=== PATIENT | male | born 1945 | race African-American/Black ===

== ENCOUNTER 2016-05-11 18:58 | Inpatient (IN) | payer MEDICARE, MEDICAID ==
[~2016-05-11] VITALS: Ht 188 cm; Wt 123.4 kg
[~2016-05-11 18:58] MED LIST: /ATOR40TA PO; /INSU7030; /METO25TAB PO; /NEPHROTA PO; /NITR4TASL SL; /WARF5TA; ADV250INH INH; ALBU0.5N INH; ALDA25TA2; ALLO100T PO; ALLO300T2 PO; ALPH0.1S XX; AMLO10TA; APIDINJ SC; ASPI81TA83 PO; BISO10TA2; BISO10TA6 PO; CAPT12.5; CAPT12.5 PO; CATA0.1T; COUMADIN; DEMA20TA; DOCU10ELUD PO; FLEXERIL; FLUTISP; GLUC500T; INSULANT SC; INSULIN LANTUS; LANO0.1211; LOTE0.5S OD; MIRA255PW PO; NEUR100C; NORV5TAB; NOVOLOG SC; PRED1SUS OD; PROV90AE INH; SENO8.6T9 PO; TAMS0.4C PO; TORS100T12 PO; TRAM50TA2; TYLE325T5 PO; VICO5TAB PO; WARF2TAB44 PO; WARF4TAB28 PO; ZETI10TA21 PO; [UNRECOGNIZED DRUG - CODE] EXT
[2016-05-11 21:14] LABS: BASO # 0.1 K/mm3 (0.0-0.2); BASO % 0.6 % (0.0-1.0); EOS # 0.1 K/mm3 (0.0-0.50); EOS % 0.6 % (0.0-3.0); LARGE UNSTAINED CELL # 0.3 K/mm3 (0.0-0.4); LARGE UNSTAINED CELL % 1.9 % (0.0-4.0); LYMPH # 0.9 K/mm3 (1.5-4.5); LYMPH % 4.6 % (24.0-44.0); MEAN CORPUSCULAR HEMOGLOBIN 33.6 pg (27.0-33.0); MEAN CORPUSCULAR HGB CONC 32.1 g/dl (32.0-36.5); MEAN CORPUSCULAR VOLUME 104.7 fl (80.0-96.0); MONO # 0.9 K/mm3 (0.0-0.8); MONO % 6.6 % (0.0-5.0); NEUTROPHILS # 11.8 K/mm3 (1.8-7.7); NEUTROPHILS % 85.8 % (36.0-66.0); PLATELET COUNT, AUTOMATED 155 k/mm3 (150-450); RED CELL DISTRIBUTION WIDTH 13.9 % (11.5-14.5); WHITE BLOOD COUNT 13.8 K/mm3 (4.0-10.0)
[2016-05-11] MEDS ORDERED: MORPHINE 4 MG/ML 1ML SYRINGE As Ordered ONE (21:24)
[2016-05-11 21:39] LABS: CALCIUM LEVEL 8.3 MG/DL (8.8-10.2); POTASSIUM SERUM 4.8 MEQ/L (3.5-5.1)
[2016-05-11] MEDS ORDERED: HYDROmorphone HCL 1 MG/ML SYRINGE (J1170) As Ordered ONE (22:37)
[2016-05-11] MEDS ORDERED: cefTRIAXone SOD 1 GM VIAL (J0696) As Ordered ONE (23:26)
[2016-05-12] MEDS ORDERED: INSUH10VL SC (00:20)
[2016-05-12] MEDS ORDERED: VITA100066 PO (00:20)
[2016-05-12] MEDS ORDERED: ALBU17IN INH (00:20)
[2016-05-12] MEDS ORDERED: FLOM5CAP PO (00:20)
[2016-05-12] MEDS ORDERED: INSUDET SC (00:20)
[2016-05-12] MEDS ORDERED: GABA-279 PO (00:20)
[2016-05-12] MEDS ORDERED: CALC1CAP PO (00:20)
[2016-05-12] MEDS ORDERED: VITA500T3 PO (00:20)
[2016-05-12] MEDS ORDERED: ASPI81CH PO (00:20)
[2016-05-12] MEDS ORDERED: METO50TA2 PO (00:20)
[2016-05-12] MEDS ORDERED: WARF-60 PO (00:20)
[2016-05-12] MEDS ORDERED: NITR4TASL SL (00:20)
[2016-05-12] MEDS ORDERED: FEBU40TA PO (00:20)
[2016-05-12] MEDS ORDERED: RENV2TAB PO (00:20)
[2016-05-12] MEDS ORDERED: WARF4TAB52 PO (00:20)
[2016-05-12] MEDS ORDERED: NEPHTAB PO (00:20)
[2016-05-12] MEDS ORDERED: ADV250INH INH (00:20)
[2016-05-12] MEDS ORDERED: ATOR40TA PO (00:20)
[2016-05-12] MEDS ORDERED: DEXTROSE 50% 50 ML SYRINGE IV PRN (00:30)
[2016-05-12] MEDS ORDERED: GLUCOSE 4 GM CHEW TABLET PO PRN (00:30)
[2016-05-12] MEDS ORDERED: GLUCAGON FOR INJ 1 MG VIAL (J1610) SC PRN (00:30)
[2016-05-12] MEDS ORDERED: IPRATROPIUM 0.5MG/ALBUTEROL 2.5MG INH SOL UD 3ML (DUONEB)(J7620) NEB PRN (00:45)
[2016-05-12 00:57] LABS: INR 1.7
--- NOTE | 2016-05-12 03:24 | EDDOCDS ---
Physician Documentation [facility] Name: Irwin Lobo Age: 70 yrs Sex: Male : 1945 Arrival Date: 05/11/2016 Time: 18:58 Bed 4 Private MD: Jayy Alvarez P Disposition: 05/11/16 23:26 Hospitalization ordered by Emily Dorantes for Inpatient Admission. Preliminary diagnosis are Chest pain, unspecified - Pleuritic, Pain in left foot, Difficulty in walking, not elsewhere classified. - Bed requested for PCU. - Status is Inpatient Admission. ko2 - Condition is Stable. - Problem is an acute exacerbation. - Symptoms have improved. Historical: - Allergies: no known allergies; - Home Meds: 1. Advair Diskus 250-50 mcg/dose Inhl dsdv 1 puff 2 times per day 2. albuterol sulfate 90 mcg/actuation Inhl HFAA 2 puffs every 4-6 hours 3. aspirin 81 mg Oral chew 1 tab once daily 4. atorvastatin 40 mg oral tab 1 tab once daily 5. Coumadin 7 mg Oral tab 1 tab once daily 6. Levemir 100 unit/mL subcutaneous soln 16 unit nightly 7. Humalog 100 unit/mL Sub-Q crtg 8. metoprolol tartrate 50 mg Oral tab 1 tab 2 times per day 9. calcium acetate 667 mg oral cap 2 caps 3 times per day 10. Sensipar 30 mg oral tab 1 tab once daily 11. Renvela 800 mg oral tab 2 tabs 3 times per day 12. Vitamin B-12 1,000 mcg Oral tab 1,000 mcg daily 13. gabapentin 100 mg Oral cap 1 caps daily 14. tamsulosin 0.4 mg oral cp24 1 cap once daily 15. colchicine 0.6 mg Oral tab 1 tab as needed 16. Uloric 40 mg oral tab 1 tab once daily 17. Nitrostat 0.4 mg SL subl 1 tab as needed 18. Nephro-Martin 0.8 mg oral tab daily 19. Vitamin D Oral 09235 unit daily - PMHx: Asthma; BPH; Chronic Renal Failure with dialysis; Diabetes - IDDM: uncontrolled; Gout; Herpes of Right Eye; Hypercholesterolemia; Hypertension; - PSHx: AV fistula right arm; Hernia repair; Pacemaker Insertion; - Social history: Smoking status: Patient states former smoker of tobacco. No barriers to communication noted, The patient speaks fluent Syriac, Speaks appropriately for age, blind in right eye. - Family history: Not pertinent. - : The pt / caregiver states he / she is on anticoagulants: coumadin. Home medication list is obtained from pill bottles. - Exposure Risk Screening:: None identified. Vital Signs: 05/11 19:10 BP 125 / 70; Pulse 100; Resp 32; Pulse Ox 93% on R/A; Weight 122.92 kg / 270.99 lbs; ls3 19:13 Temp 100.6(O); ls3 19:36 BP 115 / 68 (auto/); ld5 19:40 Pulse 100 MON; Pulse Ox 96% ; ld5 19:50 Resp 26; ld5 21:12 BP 133 / 73 (auto/); ld5 21:12 Pulse 94 MON; Resp 22; Pulse Ox 97% ; ld5 21:37 BP 128 / 80 (auto/); ld5 21:37 Pulse 94 MON; Temp 100.6(O); Pulse Ox 97% ; ld5 22:07 BP 132 / 75 (auto/); ld5 22:08 Pulse 96 MON; Pulse Ox 98% ; ld5 22:11 BP 132 / 81 (auto/); ld5 22:13 Pulse 96 MON; Pulse Ox 99% ; ld5 22:42 Pulse 96 MON; Pulse Ox 98% ; ld5 22:57 BP 138 / 80 (auto/); Pulse 98; Resp 20; Temp 100.2(O); Pulse Ox 97% on R/A; Pain 6/10; ld5 23:39 Pulse 98 MON; Pulse Ox 97% ; ko2 23:41 BP 140 / 79 (auto/); ko2 05/12 00:10 Pulse 100 MON; ko2 00:11 BP 129 / 78 (auto/); ko2 00:40 Pulse 102 MON; ko2 00:41 BP 129 / 77 (auto/); ko2 01:11 BP 137 / 86 (auto/); ko2 01:11 Pulse 98 MON; ko2 01:42 BP 129 / 76; Pulse 92; Resp 18; Temp 98.9; Pulse Ox 98% ; Pain 0/10; ko2 MDM: 05/11 19:01 ECG WITH READING ER PHYS+CARDIAG ordered. EDMS 19:28 Ondansetron 4 mg IVP once ordered. mm11 19:28 Data Mining Analyst/Pulse Ox/q 30 min VS ordered. mm11 19:28 IV Saline Lock ordered. mm11 19:28 Rhythm Strip to chart ordered. mm11 19:28 Undress patient appropriately for examination ordered. mm11 19:28 morphine 4 mg IVP every 30 minutes; Document pain score/vitals after each dose (Hold if mm11 SBP < 90mmHg) x2 ordered. 19:28 -Blood Culture (Adults Only), peripheral from different site, or from device/port/PICC mm11 etc. if present ordered. 19:29 Basic Metabolic Profile Ordered. EDMS 19:29 CBC with Diff Ordered. EDMS 19:29 Cardiac Injury Profile Ordered. EDMS 19:29 Troponin Ordered. EDMS 19:29 -Blood Culture Ordered. EDMS 19:29 Chest, 2 View (pa\E\lat) Ordered. EDMS 19:30 Foot, Complete Ordered. EDMS 19:57 Financial registration complete. ks16 19:57 [facility] Payment Agreement was scanned into [employer] and attached to record. ks16 19:58 -Blood Culture (Adults Only), peripheral from different site, or from device/port/PICC ml3 etc. if present complete. 20:00 BLOOD CULTURES Ordered. EDMS 21:30 morphine 4 mg IM once ordered. ld5 21:40 CBC with Diff Reviewed. mm11 22:15 Basic Metabolic Profile Reviewed. mm11 22:15 Troponin Reviewed. mm11 22:15 Cardiac Injury Profile Reviewed. mm11 22:33 Dilaudid - HYDROmorphone 1 mg IM once ordered. mm11 22:52 Dilaudid - HYDROmorphone 1 mg IVP once ordered. mm11 23:13 BED REQUEST+ADM ordered. EDMS 23:14 cefTRIAXone 1 grams IVPB once over 30 mins; dilute in 50mL of NS or D5W ordered. mm11 05/12 00:30 Admission / Observation Status ordered. EDMS 00:31 CONSISTENT CARBOHYDRATES ordered. EDMS 00:31 CARDIAC INJURY PROFILE Ordered. EDMS 00:31 CARDIAC INJURY PROFILE Ordered. EDMS 00:31 CARDIAC INJURY PROFILE Ordered. EDMS 00:31 PROTHROMBIN TIME PROFILE\E\INR Ordered. EDMS 00:34 URIC ACID Ordered. EDMS 03:16 SPUTUM CULTURE AND GRAM STAIN Ordered. EDMS 03:17 ELECTROCARDIOGRAM ADULT ordered. EDMS Administered Medications: 05/11 21:30 Drug: morphine 4 mg [morphine 4 mg/mL intravenous cartridge (1 mL)] Route: IM; Site: ld5 left deltoid; 22:30 Follow up: Response: Confirmed pt not driving.; No significant change.; see vital recordld5 22:51 Not Given (Other Intervention Used): Dilaudid - HYDROmorphone 1 mg IM once mm11 22:54 Drug: Dilaudid - HYDROmorphone 1 mg [hydromorphone 1 mg/mL injection syringe (1 mL)] ld5 Route: IVP; Site: right foot; 23:35 Drug: cefTRIAXone 1 grams [ceftriaxone 1 gram solution for injection] Route: IVPB; ko2 Infused Over: 30 mins; Site: right foot; 05/12 01:51 Follow up: IV Status: Completed infusion; IV Intake: 50ml ko2 Signatures: Dispatcher [employer] EDMS Laura Osoriozabeth, Duct Maker Unit ml3 Norman Sainz DO DO mm11 Kusum Sharif,JERRICA RN ld5 Nicky Valdez RN RN ko2 Kerri Figueroa, Reg Reg ks16 The chart was reviewed and I authenticate all verbal orders and agree with the evaluation and treatment provided.Attachments: 05/11 19:57 [facility] Payment Agreement ks16 MTDD
--- NOTE | 2016-05-12 03:24 | EDDOCDS ---
Nurse's Notes [facility] Name: Irwin Lobo Age: 70 yrs Sex: Male : 1945 Arrival Date: 05/11/2016 Time: 18:58 Bed 4 Private MD: Jayy Alvarez P Diagnosis: Chest pain, unspecified-Pleuritic;Pain in left foot;Difficulty in walking, not elsewhere classified Presentation: 05/11 19:03 Presenting complaint: Patient states: "My feet hurt and I have a cough and some chest ld5 pain. I think I have pneumonia." I nitro given en route with some relief. 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 Suicide/Homicide risk assessment- the patient denies having any suicidal and/or homicidal ideations and does not present with any other emotional, behavioral or mental health complaints. Status: Patient is not a service writer or dependent. Transition of care: patient was not received from another setting of care. Care prior to arrival: Medications administered prior to arrival: NTG, x1, ASA 324 mg. 19:03 Method Of Arrival: Ambulance ld5 19:19 Adult Sepsis Screening: The patient does not have new or worsening altered mentation. ld5 Patient has a respiratory rate of greater than or equal to 22 (1 point). Systolic blood pressure is greater than 100. Patient has a qSOFA score of 1- Negative Sepsis Screen. 19:19 Acuity: RAVIN Level 2 ld5 Triage Assessment: 19:15 General: Appears in no apparent distress. Pain: Location: left breast, right foot and ld5 left foot Pain currently is 7 out of 10 on a pain scale. Aggravated by weight bearing, cough. Neurological: Level of Consciousness is awake, alert. Cardiovascular: Chest pain is described as mild, radiates Does not radiate. episodes are intermittent began "sometime today". Respiratory: Airway is patent Breath sounds are diminished in left posterior lower lobe and right posterior lower lobe Breath sounds with wheezes in left posterior lower lobe. GI: Abdomen is obese, Bowel sounds present X 4 quads. Historical: - Allergies: no known allergies; - Home Meds: 1. Advair Diskus 250-50 mcg/dose Inhl dsdv 1 puff 2 times per day 2. albuterol sulfate 90 mcg/actuation Inhl HFAA 2 puffs every 4-6 hours 3. aspirin 81 mg Oral chew 1 tab once daily 4. atorvastatin 40 mg oral tab 1 tab once daily 5. Coumadin 7 mg Oral tab 1 tab once daily 6. Levemir 100 unit/mL subcutaneous soln 16 unit nightly 7. Humalog 100 unit/mL Sub-Q crtg 8. metoprolol tartrate 50 mg Oral tab 1 tab 2 times per day 9. calcium acetate 667 mg oral cap 2 caps 3 times per day 10. Sensipar 30 mg oral tab 1 tab once daily 11. Renvela 800 mg oral tab 2 tabs 3 times per day 12. Vitamin B-12 1,000 mcg Oral tab 1,000 mcg daily 13. gabapentin 100 mg Oral cap 1 caps daily 14. tamsulosin 0.4 mg oral cp24 1 cap once daily 15. colchicine 0.6 mg Oral tab 1 tab as needed 16. Uloric 40 mg oral tab 1 tab once daily 17. Nitrostat 0.4 mg SL subl 1 tab as needed 18. Nephro-Martin 0.8 mg oral tab daily 19. Vitamin D Oral 35689 unit daily - PMHx: Asthma; BPH; Chronic Renal Failure with dialysis; Diabetes - IDDM: uncontrolled; Gout; Herpes of Right Eye; Hypercholesterolemia; Hypertension; - PSHx: AV fistula right arm; Hernia repair; Pacemaker Insertion; - Social history: Smoking status: Patient states former smoker of tobacco. No barriers to communication noted, The patient speaks fluent Guamanian, Speaks appropriately for age, blind in right eye. - Family history: Not pertinent. - : The pt / caregiver states he / she is on anticoagulants: coumadin. Home medication list is obtained from pill bottles. - Exposure Risk Screening:: None identified. Screenin/26 01:51 Screening information is obtained from the patient. Fall risk: At risk due to prior ko2 history of falls. Assistance ADL's: requires no assistance with activities of daily living. Abuse/DV Screen: The patient / caregiver reports he/she is: not in a situation that causes fear, pain or injury. Nutritional screening: No deficits noted. Advance Directives: Currently, there is no health care proxy. home support is adequate. Assessment: 05/11 19:49 General: Pt becoming upset over difficulty with obtaining IV access. Support provided. ld5 20:00 General: Pt goes to dialysis Mon, Wed and Thu. ld5 20:40 General: Spoke with Dr. Saizn regarding difficulty obtaining IV access. Will obtain ld5 blood for the time being per MD. Will continue to monitor. 20:45 General: Lab in to draw blood. ld5 20:59 General: Pt resting quietly in bed. No apparent distress. Will continue to monitor. ld5 21:30 General: Pt laying in bed with eyes closed. Lights dimmed for comfort. SO remains at ld5 bedside. Will continue to monitor. 22:43 General: Pt requesting Dilaudid be held while IV access is attempted again. ld5 23:00 General: IV access obtained to right foot. Jose wrap applied to protect site. Pt ld5 medicated per orders for 11/24 pain. Pt denies any needs. Will continue to monitor. 05/12 00:00 General: Appears in no apparent distress, comfortable, Behavior is appropriate for age, ko2 cooperative. Neurological: Level of Consciousness is awake, alert. Cardiovascular: Rhythm is. Respiratory: Airway is patent Respiratory effort is even, unlabored. Derm: Skin is normal. 01:00 General: Appears in no apparent distress, comfortable, Behavior is appropriate for age, ko2 cooperative. Neurological: Level of Consciousness is awake, alert. Respiratory: Airway is patent Respiratory effort is even, unlabored. Derm: Skin is black. 01:50 General: Appears in no apparent distress, comfortable, Behavior is appropriate for age, ko2 cooperative. Neurological: Level of Consciousness is awake, alert. Respiratory: Airway is patent Respiratory effort is even, unlabored. Derm: Skin is black. Vital Signs: 05/11 19:10 BP 125 / 70; Pulse 100; Resp 32; Pulse Ox 93% on R/A; Weight 122.92 kg; ls3 19:13 Temp 100.6(O); ls3 19:36 BP 115 / 68 (auto/); ld5 19:40 Pulse 100 MON; Pulse Ox 96% ; ld5 19:50 Resp 26; ld5 21:12 BP 133 / 73 (auto/); ld5 21:12 Pulse 94 MON; Resp 22; Pulse Ox 97% ; ld5 21:37 BP 128 / 80 (auto/); ld5 21:37 Pulse 94 MON; Temp 100.6(O); Pulse Ox 97% ; ld5 22:07 BP 132 / 75 (auto/); ld5 22:08 Pulse 96 MON; Pulse Ox 98% ; ld5 22:11 BP 132 / 81 (auto/); ld5 22:13 Pulse 96 MON; Pulse Ox 99% ; ld5 22:42 Pulse 96 MON; Pulse Ox 98% ; ld5 22:57 BP 138 / 80 (auto/); Pulse 98; Resp 20; Temp 100.2(O); Pulse Ox 97% on R/A; Pain 6/10; ld5 23:39 Pulse 98 MON; Pulse Ox 97% ; ko2 23:41 BP 140 / 79 (auto/); ko2 05/12 00:10 Pulse 100 MON; ko2 00:11 BP 129 / 78 (auto/); ko2 00:40 Pulse 102 MON; ko2 00:41 BP 129 / 77 (auto/); ko2 01:11 BP 137 / 86 (auto/); ko2 01:11 Pulse 98 MON; ko2 01:42 BP 129 / 76; Pulse 92; Resp 18; Temp 98.9; Pulse Ox 98% ; Pain 0/10; ko2 Vitals: 01:41 Log In Time N/A - ambulance arrival. ko2 ED Course: 05/11 18:59 Patient visited by Jefry Osorio, Supervisor Modern Languages. ml3 18:59 Patient moved to Waiting ml3 19:00 Jayy Alvarez is Private Physician. ml3 19:00 Simona Zee,RN is Primary Nurse. ml3 19:00 Patient moved to 4 ml3 19:09 Norman Sainz DO is Attending Physician. mm11 19:09 Patient visited by Norman Sainz DO. mm11 19:12 Patient visited by Christina Keene PCA. ls3 19:19 Patient visited by Kusum Sharif,JERRICA. ld5 19:19 Triage Initiated ld5 19:27 Patient visited by Norman Sainz DO. mm11 19:41 -Blood Culture Sent. ld5 19:51 The patient / caregiver is instructed regarding the plan of care and ED course. ld5 Accompanied by Significant Other, Patient has correct armband on for positive identification. Placed in gown. Bed in low position. Call light in reach. Side rails up X2. telemetry monitor on. Pulse ox on. NIBP on. 19:57 [facility] Payment Agreement was scanned into [employer] and attached to record. ks16 20:07 Patient visited by Kusum Sharif RN. ld5 21:00 Patient visited by Kusum Sharif RN. ld5 21:40 Patient visited by Norman Sainz DO. mm11 22:20 Patient visited by Norman Sainz DO. mm11 22:44 Patient visited by Kusum Sharif RN. ld5 23:01 Patient visited by Kusum Sharif RN. ld5 23:02 Inserted saline lock: 22 gauge in right foot by Mitch Khan RN. ld5 23:26 Emily Dorantes is Hospitalizing Provider. mm11 05/12 01:53 No procedures done that require assistance. ko2 Administered Medications: 05/11 21:30 Drug: morphine 4 mg [morphine 4 mg/mL intravenous cartridge (1 mL)] Route: IM; Site: ld5 left deltoid; 22:30 Follow up: Response: Confirmed pt not driving.; No significant change.; see vital recordld5 22:51 Not Given (Other Intervention Used): Dilaudid - HYDROmorphone 1 mg IM once mm11 22:54 Drug: Dilaudid - HYDROmorphone 1 mg [hydromorphone 1 mg/mL injection syringe (1 mL)] ld5 Route: IVP; Site: right foot; 23:35 Drug: cefTRIAXone 1 grams [ceftriaxone 1 gram solution for injection] Route: IVPB; ko2 Infused Over: 30 mins; Site: right foot; 05/12 01:51 Follow up: IV Status: Completed infusion; IV Intake: 50ml ko2 Intake: 01:51 IV: 50.00ml; Total: 50.00ml. ko2 Order Results: Lab Order: Basic Metabolic Profile; SPEC'M 05/11/16 20:52 Test: GLUCOSE, FASTING; Value: 139; Range: 80-110; Abnormal: Above high normal; Units: MG/DL; Status: F Test: BLOOD UREA NITROGEN; Value: 75; Range: 7-18; Abnormal: Above high normal; Units: MG/DL; Status: F Test: CREATININE FOR GFR; Value: 11.00; Range: 0.70-1.30; Abnormal: Above high normal; Units: MG/DL; Status: F Test: GLOMERULAR FILTRATION RATE; Value: 6.0; Range: >49; Abnormal: Below low normal; Status: F Test: SODIUM LEVEL; Value: 136; Range: 136-145; Units: MEQ/L; Status: F Test: POTASSIUM SERUM; Value: 4.8; Range: 3.5-5.1; Units: MEQ/L; Status: F Test: CHLORIDE LEVEL; Value: 100; Range: 98-107; Units: MEQ/L; Status: F Test: CARBON DIOXIDE LEVEL; Value: 25; Range: 21-32; Units: MEQ/L; Status: F Test: ANION GAP; Value: 11; Range: 8-16; Units: MEQ/L; Status: F Test: CALCIUM LEVEL; Value: 8.3; Range: 8.8-10.2; Abnormal: Below low normal; Units: MG/DL; Status: F Test Note: ; Units are mL/min/1.73 m2 Chronic Kidney Disease Staging per NKF: Stage I & II GFR >=60 Normal to Mildly Decreased Stage III GFR 30-59 Moderately Decreased Stage IV GFR 15-29 Severely Decreased Stage V GFR <15 Very Little GFR Left ESRD GFR <15 on BLANKET FOLDER Lab Order: CBC with Diff; SPEC'M 05/11/16 20:52 Test: WHITE BLOOD COUNT; Value: 13.8; Range: 4.0-10.0; Abnormal: Above high normal; Units: K/mm3; Status: F Test: RED BLOOD COUNT; Value: 3.12; Range: 4.30-6.10; Abnormal: Below low normal; Units: M/mm3; Status: F Test: HEMOGLOBIN; Value: 10.5; Range: 14.0-18.0; Abnormal: Below low normal; Units: g/dl; Status: F Test: HEMATOCRIT; Value: 32.6; Range: 42.0-52.0; Abnormal: Below low normal; Units: %; Status: F Test: MEAN CORPUSCULAR VOLUME; Value: 104.7; Range: 80.0-96.0; Abnormal: Above high normal; Units: fl; Status: F Test: MEAN CORPUSCULAR HEMOGLOBIN; Value: 33.6; Range: 27.0-33.0; Abnormal: Above high normal; Units: pg; Status: F Test: MEAN CORPUSCULAR HGB CONC; Value: 32.1; Range: 32.0-36.5; Units: g/dl; Status: F Test: RED CELL DISTRIBUTION WIDTH; Value: 13.9; Range: 11.5-14.5; Units: %; Status: F Test: PLATELET COUNT, AUTOMATED; Value: 155; Range: 150-450; Units: k/mm3; Status: F Test: NEUTROPHILS %; Value: 85.8; Range: 36.0-66.0; Abnormal: Above high normal; Units: %; Status: F Test: LYMPH %; Value: 4.6; Range: 24.0-44.0; Abnormal: Below low normal; Units: %; Status: F Test: MONO %; Value: 6.6; Range: 0.0-5.0; Abnormal: Above high normal; Units: %; Status: F Test: EOS %; Value: 0.6; Range: 0.0-3.0; Units: %; Status: F Test: BASO %; Value: 0.6; Range: 0.0-1.0; Units: %; Status: F Test: LARGE UNSTAINED CELL %; Value: 1.9; Range: 0.0-4.0; Units: %; Status: F Test: NEUTROPHILS #; Value: 11.8; Range: 1.8-7.7; Abnormal: Above high normal; Units: K/mm3; Status: F Test: LYMPH #; Value: 0.9; Range: 1.5-4.5; Abnormal: Below low normal; Units: K/mm3; Status: F Test: MONO #; Value: 0.9; Range: 0.0-0.8; Abnormal: Above high normal; Units: K/mm3; Status: F Test: EOS #; Value: 0.1; Range: 0.0-0.50; Units: K/mm3; Status: F Test: BASO #; Value: 0.1; Range: 0.0-0.2; Units: K/mm3; Status: F Test: LARGE UNSTAINED CELL #; Value: 0.3; Range: 0.0-0.4; Units: K/mm3; Status: F Lab Order: Cardiac Injury Profile; SPEC'M 05/11/16 20:52 Test: CPK CREATINE PHOSPHOKINASE; Value: 83; Range: 39-308; Units: U/L; Status: F Test: CK-MB VALUE MASS; Value: 1.0; Range: 0.0-3.6; Units: NG/ML; Status: F Test: MB/CK RELATIVE INDEX; Value: 1.20; Range: < OR =4; Status: F Test Note: ; DIAGNOSIS CRITERIA MMB ng/ml Relative Index (RI) NON-AMI < or = 5 N/A VASQUES ZONE > 5 < or = 4 AMI > 5 > 4 Lab Order: Troponin; [facility] 05/11/16 20:52 Test: TROPONIN I; Value: 0.12; Range: < 0.10; Abnormal: Above high normal; Units: NG/ML; Status: F Test Note: ; Troponin I Reference Interval for [employer]ius LOCI: 99th Percentile= 0.00-0.045 ng/ml Risk Stratification: <= 0.10 ng/ml Decreased Risk for Adverse Clinical Events. 0.10-1.50 ng/ml Increased Risk for Adverse Clinical Events. Evaluation of additional criterion and/or repeat testing in 2-6 hours is suggested to rule out myocardial damage. >= 1.50 ng/ml Indicative of Myocardial Injury. Lab Order: PROTHROMBIN TIME PROFILE\\E\\INR; [facility] 05/11/16 20:52 Test: PROTHROMBIN TIME; Value: 20.1; Range: 12.3-14.5; Abnormal: Above high normal; Units: SECONDS; Status: F Test: INR; Value: 1.70; Status: F Test Note: ; THERAPUTIC HUMAN INR VALUES INDICATIONS NORMAL RANGES PROPHYLAXIS/TREATMENT OF: VENOUS THROMBOSIS 2.0-3.0 PULMONARY EMBOLISM 2.0-3.0 PREVENTION OF SYSTEMIC EMBOLISM FROM: TISSUE HEART VALVES 2.0-3.0 ACUTE MYOCARDIAL INFARCTION 2.0-3.0 VALVULAR HEART DISEASE 2.0-3.0 ATRIAL FIBRILLATION 2.0-3.0 MECHANICAL VALVES(HIGH RISK) 2.5-3.5 RECURRENT MYOCARDIAL INFARCTION 2.5-3.5 Lab Order: URIC ACID; [facility]' 05/11/16 20:52 Test: URIC ACID; Value: 4.0; Range: 3.5-7.2; Units: MG/DL; Status: F Outcome: 05/11 23:26 Decision to Hospitalize by Provider. mm11 05/12 01:52 Discharge Assessment: Patient awake, alert and oriented x 3. No cognitive and/or ko2 functional deficits noted. Patient verbalized understanding of disposition instructions. patient administered narcotics -. The following High Risk Discharge criteria are identified: None. Admitted to PCU accompanied by nurse, accompanied by tech, via stretcher, on monitor, with chart. Condition: stable. Property :Personal belongings accompany Pt. 01:53 No special radiology studies were completed. ko2 01:53 Admission hand-off: Report Faxed Fax receipt verified by Daphney Whitney RN PCU. ko2 03:23 Patient left the ED. ko2 Signatures: Jefry Osorio, Supervisor Modern Languages Unit ml3 Norman Sainz, DO mm11 Kusum Sharif,RN RN ld5 Nicky Valdez RN RN ko2 Christina Keene, NURSE RECRUITER NURSE RECRUITER ls3 Kerri Figueroa, Reg Reg ks16 Corrections: (The following items were deleted from the chart) 05/11 21:16 21:12 Pulse 94bpm; Monitor; Pulse Ox 97%; ld5 ld5 MTDD
[2016-05-12 04:00] VITALS: BP 139/79
[2016-05-12] MEDS: MORPHINE 2 MG/ML 1ML SYRINGE IV PRN ×3 (06:00→20:46)
[2016-05-12 06:07] LABS: MEAN CORPUSCULAR HGB CONC 32.5 g/dl (32.0-36.5); MEAN CORPUSCULAR VOLUME 104.6 fl (80.0-96.0); RED CELL DISTRIBUTION WIDTH 13.3 % (11.5-14.5); WHITE BLOOD COUNT 15.1 K/mm3 (4.0-10.0)
[2016-05-12 06:58] LABS: ALBUMIN 3.2 GM/DL (3.2-5.2); ALBUMIN/GLOBULIN RATIO 0.86 (1.00-1.93); BILIRUBIN,TOTAL 0.9 MG/DL (0.2-1.0); CREATININE FOR GFR 12.2 MG/DL (0.70-1.30); GLOMERULAR FILTRATION RATE 5.3 (>49); TOTAL PROTEIN 6.9 GM/DL (6.4-8.2)
[2016-05-12 07:00] LABS: POTASSIUM SERUM 5.3 MEQ/L (3.5-5.1)
[2016-05-12] MEDS: ADVAIR DISKUS 250/50 INH PWD INH SCH ×2 (07:09→19:32)
[2016-05-12] MEDS: IPRATROPIUM 0.5MG/ALBUTEROL 2.5MG INH SOL UD 3ML (DUONEB)(J7620) NEB SCH ×3 (07:09→19:33)
[2016-05-12] MEDS: CALCIUM ACETATE 667 MG GELCAP PO SCH ×3 (07:35→17:54)
[2016-05-12] MEDS: CYANOCOBALAMIN 500 MCG TAB PO SCH (07:35)
[2016-05-12] MEDS: (RENVELA) SEVELAMER **CARBONate** 800 MG TAB PO SCH ×3 (07:35→17:54)
[2016-05-12] MEDS: HumaLOG INSULIN (NovoLOG) PER UNIT SC SCH ×4 (07:35→20:31)
[2016-05-12] MEDS: ATORVASTATIN 20 MG TAB PO SCH (07:35)
[2016-05-12] MEDS: NEPHRO-VIT TAB (NEPHROCAPS) PO SCH (07:35)
[2016-05-12] MEDS: FEBUXOSTAT 40 MG TABLET (ULORIC) PO SCH (07:35)
[2016-05-12] MEDS: METOPROLOL TART 50 MG TAB PO SCH ×2 (07:36→20:43)
[2016-05-12] MEDS: ASPIRIN 81 MG CHEW TABLET PO SCH (07:36)
[2016-05-12] MEDS: TAMSULOSIN 0.4 MG CAP PO SCH (07:36)
[2016-05-12 08:00] VITALS: BP 133/75
[2016-05-12 08:39] LABS: INR 1.69
[2016-05-12] MEDS ORDERED: GABAPENTIN 100 MG CAP PO SCH ×2 (09:00→21:00)
--- NOTE | 2016-05-12 09:03 | REP ---
Clinical: Chest pain. Technique: AP and lateral views. Comparison: 08/17/2014. Findings: Examination is limited by technique. Cardiomegaly is again appreciated and relatively stable. Pulmonary vascular congestion and interstitial edema cannot definitively be excluded. No focal consolidation, effusion, or pneumothorax. Skeletal structures are intact. Impression: Cardiomegaly and findings to suggest pulmonary venous congestion. Clinical correlation recommended. Signed by Pito Allen MD 05/12/2016 08:54 A
--- NOTE | 2016-05-12 09:05 | REP ---
Clinical: Deformity and swelling . Technique: AP, lateral, bilateral oblique views left foot. Findings: Age-related degenerative changes and vascular calcifications are identified. The osseous structures and joint spaces are intact and without obvious acute fracture or dislocation. Surrounding soft tissues are unremarkable. No subcutaneous emphysema or radiodense foreign body. Lateral view demonstrates small calcaneal heal spur. Impression: Age-related degenerative changes and vascular calcifications. No acute fracture or dislocation. Signed by Pito Allen MD 05/12/2016 08:56 A
--- NOTE | 2016-05-12 09:31 | ECGEPIP ---
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
--- NOTE | 2016-05-12 11:25 | HPE ---
DATE OF ADMISSION: 05/12/2016 PRIMARY CARE PROVIDER: Dr. Alvarez REASON FOR ADMISSION: Pleuritic chest pain and left foot pain. 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 He stated that on Thursday a door fell on his left foot, for the past several days he has been having some swelling and pain. Today he was unable to ambulate on his leg, unable to put any weight on it. He has also been complaining of chest pain and some shortness of breath. Chest pain is described as pleuritic in nature, worse with deep breathing and movement. The patient received one dose of nitroglycerin and aspirin on route to the hospital. He stated it did not really help his pain. Pain has been constant for the past 3 days, worse with coughing and movement. In the emergency room the patient underwent a foot x-ray, it showed no obvious fractures or dislocations. Hospitalist was called for the admission. REVIEW OF SYSTEMS: 12-point review of systems was obtained all of which was negative except for those mentioned above. PAST MEDICAL HISTORY: Significant for asthma, BPH, renal failure on dialysis, insulin-dependent diabetes, gout, herpes of the right eye, hypertension, hyperlipidemia. PAST SURGICAL HISTORY: Arteriovenous (AV) fistula of the right arm, hernia repair, pacemaker. SOCIAL HISTORY: The patient smoked but quit 40 years ago. He lives with his significant other. Denies any alcohol use. ALLERGIES: No known drug allergies. HOME MEDICATIONS: Include: - albuterol sulfate as needed for shortness of breath - aspirin 81 mg by mouth daily - atorvastatin 40 mg by mouth daily - calcium acetate with meals - vitamin D - vitamin B12 by mouth daily - Uloric 40 mg by mouth daily - gabapentin 100 mg by mouth daily - NovoLog sliding scale with meals - Levemir 16 units at bedtime - metoprolol tartrate 50 mg by mouth twice a day - nitroglycerin as needed for pain - Advair Diskus one puff inhaled twice a day - Renvela 1600 mg by mouth with meals - Flomax 0.4 mg by mouth daily - vitamin B complex one tablet by mouth daily - Coumadin 7 mg by mouth daily PHYSICAL EXAMINATION: VITAL SIGNS: On admission, blood pressure was 125/70, pulse 100, respiratory rate 32, temperature 100.6, pulse oximetry 93% on room air. HEENT: Left pupil round and reactive to light. Right pupil hazy, patient has right eye blindness. CARDIAC: Irregular rate and rhythm. LUNGS: Diminished breath sounds bilaterally. ABDOMEN: Soft, nontender, nondistended. EXTREMITIES: Trace edema bilaterally. LABORATORY FINDINGS: Glucose 139, BUN 75, creatinine 11, sodium 136, potassium 4.8, chloride 100, bicarbonate 25, WBC 13.8, hemoglobin 10.5, hematocrit 32.6, platelet count 155, troponin 0.12, INR 1.7, uric acid 4. The official read on foot x-ray is still pending but showed no acute fractures or dislocations. ASSESSMENT/PLAN: 1. Shortness of breath, likely secondary to asthma versus upper respiratory tract infection. The patient had low grade temperature on admission 100.6. He received one dose of Rocephin in the emergency room. We will continue Rocephin. Obtain sputum culture. Continue oxygen to keep saturations above 90%. 2. Foot pain, unknown etiology at this time. Preliminary re-done foot x-ray showed no acute fractures or dislocation. The patient recently dropped a door on his left foot. There appears to be some mild swelling over the foot. Uric acid was negative. The patient has history of gout but takes Uloric for it daily. We will order physical therapy. 3. Chest pain described as pleuritic in nature, likely secondary to cough. First set of troponin mildly elevated but may be secondary to increase in creatinine level. We will repeat troponins in 6 hours. Will repeat EKG in the morning. 4. Diabetes. Continue Levemir and insulin sliding scale with meals and at bedtime. 5. Hypertension. Continue metoprolol 50 mg twice a day. 6. Atrial fibrillation. Rate is controlled. Continue Coumadin 7 mg by mouth daily, metoprolol 50 mg by mouth twice a day. 7. BPH. Continue Flomax. 8. History of gout. Continue Uloric. 9. End-stage renal disease on dialysis. We will consult nephrology in the morning. 10. Deep venous thrombosis (DVT) prophylaxis. Patient is on Coumadin. We will resume.
[2016-05-12] MEDS ORDERED: ISOVUE-370 76% 100ML VIAL (Q9967) As Ordered ONE (11:27)
[2016-05-12] MEDS ORDERED: LIDOCAINE 1% SDV 5 ML VIAL SQ ONE (11:45)
[2016-05-12] MEDS ORDERED: HEPARIN 1,000 UNITS/ML 10ML VIAL (FOR RADIOLOGY& DIALYSIS ONLY) IV ONE (11:45)
[2016-05-12] MEDS ORDERED: PIPERACILLIN/TAZOBACTAM SOD 2.25 GM in D5W MINI-BAG PLUS 50 ML IV SCH (12:00)
[2016-05-12] MEDS ORDERED: LevoFLOXacin 750 MG in APPROPRIATE DILUENT 1 EA IV SCH (13:00)
[2016-05-12 14:17] VITALS: BP 124/72
--- NOTE | 2016-05-12 14:35 | IPNPDOC ---
Text Note Date of Service The patient was seen on 05/12/16 at 14:15. 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 He also had complaints of left foot pain. He stated a microwave door fell on his foot. In the ER he had a EKG taken which did not reveal any significant changes. Troponin first set was mildly elevated. Patient had a CXR which did not reveal any signs of pneumonia. He had an XR of his foot, which did not reveal any fractures. Patient was seen and examined at the bedside. He notes that he is having mostly left foot pain, notes that the shortness of breath has been ongoing for a while. His chest pain is noted to only occur with coughing. Objective: Vitals (see below) General: Lying in bed, NAD, comfortable, AAOx3 HEENT: NC, AT CVS: Irregularly irregular, +S1S2 Lungs: Fair air entry b/l, -w/r/r Abdomen: Soft, ND, NT, +BSx4 Extremities: -Edema, -Calf tenderness, Left foot (no evidence or erythema, warmth or drainage, not significantly tender to palpation) Assessment and plan: 1. Dyspnea - possibly 2/2 pneumonia, possibly 2/2 URTI, less likely PE - Presented with shortness of breath that has been chronic, but worsened recently - Physical no signs of fluid overload, no appreciable rhonchi - Leukocytosis has trended up from admission - 2 Blood cultures positive for gram positive cocci in chains - Sputum cultures pending; although gram stain reveals many positive cocci in pair, moderate gram negative rods, positive rods, negative cocci - D-dimers not elevated - CXR with Cardiomegaly and findings to suggest pulmonary venous congestion - CT chest w/o contrast complete; awaiting official read - Escalated antibiotics from Ceftriaxone to Zosyn and Vancomycin for HCAP coverage (Day #1) 2. Left foot pain - unknown etiology, less likely 2/2 gout attack - physical reveals no cellulitis type skin changes - No elevation in uric acid - XR without evidence of fracture - c/w gout medications - will increase dose of gabapentin - will get PT/OT 3. Chest pain - likely pleuritic - possibly 2/2 pneumonia, less likely cardiogenic - Atypical description - EKG without ischemic changes - Troponin 0.12, 0.10, third set pending - c/w ASA, atorvastatin, metoprolol 4. Hyperkalemia - likely 2/2 ESRD - will get HD this morning 5. IDDM2 - c/w levemir and insulin sliding scale - c/w consistent carb / renal diet 6. HTN - BP well controlled - c/w metoprolol with holding parameters 7. Atrial fibrillation - c/w rate control with metoprolol - c/w anticoagulation with coumadin 7mg - INR sub-therapeutic will c/w home dose tonight - close monitoring of INR daily (re: on antibiotics) 8. BPH - c/w flomax 9. Hx of gout 10. ESRD on HD (MWF) - Receives dialysis via R arm AVF - Follows with Dr. Rodriguez as an outpatinet - will go for HD today 11. DVT prophylaxis - on full anticoagulation with coumadin VS,Fishbone, I+O VS, Fishbone, I+O Laboratory Tests 05/11/16 20:52 Calcium Level 8.3 L, Total Creatine Kinase 83, Red Blood Count 3.12 L, Mean Corpuscular Volume 104.7 H, Mean Corpuscular Hemoglobin 33.6 H, Mean Corpuscular Hemoglobin Concent 32.1, Red Cell Distribution Width 13.9, Neutrophils (%) (Auto) 85.8 H, Lymphocytes (%) (Auto) 4.6 L, Monocytes (%) (Auto ) 6.6 H, Eosinophils (%) (Auto) 0.6, Basophils (%) (Auto) 0.6, Neutrophils # ( Auto) 11.8 H, Lymphocytes # (Auto) 0.9 L, Monocytes # (Auto) 0.9 H, Eosinophils # (Auto) 0.1, Basophils # (Auto) 0.1 05/12/16 05:45 Calcium Level 8.0 L, Total Creatine Kinase 85, Red Blood Count 3.09 L, Mean Corpuscular Volume 104.6 H, Mean Corpuscular Hemoglobin 34.0 H, Mean Corpuscular Hemoglobin Concent 32.5, Red Cell Distribution Width 13.3, Aspartate Amino Transf (AST/SGOT) 12 L, Alanine Aminotransferase (ALT/SGPT) 20, Alkaline Phosphatase 76, Total Bilirubin 0.9, Total Protein 6.9, Albumin 3.2 Vital Signs Date Time Temp Pulse Resp B/P Pulse Ox O2 Delivery O2 Flow Rate FiO2 05/12/16 11:12 99.3 110 24 133/75 97 Room Air I&O- Last 24 Hours up to 6 AM 05/12/16 06:00 Intake Total 120 ml Output Total 100 ml Balance 20 ml SAKINA PALOMO MD May 12, 2016 14:35
--- NOTE | 2016-05-12 15:02 | REP ---
Clinical: Chest pain and dyspnea. Rule out pneumonia. Comparison: 02/12/2016. Findings: Examination is limited by motion artifact. Mild bibasilar atelectasis and possible very subtle early infiltrate cannot be excluded. Minimal linear fibroatelectatic changes are identified and similar to prior examination. No pleural effusion. No pneumothorax. Tracheobronchial tree is patent. Cannot exclude adenopathy. Mediastinum demonstrates cardiomegaly without significant pericardial effusion. Surrounding osseous structures demonstrate age-related changes. Impression: Findings suggest bibasilar atelectasis and possible subtle early infiltrate. Signed by Pito Allen MD 05/12/2016 02:53 P
[2016-05-12] MEDS: VANCOMYCIN HCL 1,000 MG, VIAL MATE ADAPTER 1 EACH in D5W 250 ML IV SCH ×2 (15:17→16:25)
[2016-05-12 16:00] VITALS: BP 119/69
--- NOTE | 2016-05-12 16:02 | ECGEPIP ---
Stationary ECG Study [facility] Test Date: 2016-05-12 Pat Name: KATHIA NAVARRETE Department: Room: [place] [address] Gender: M Clinical Research Analyst: JOSE A : 1945 Requested By: GEOFFREY CALABRESE Order Number: [id number] Reading MD: Frank Russell Measurements Intervals Ewing Rate: 126 P: IA: 0 QRS: 27 QRSD: 100 T: 60 QT: 300 QTc: 434 Interpretive Statements ATRIAL FIBRILLATION WITH RAPID VENTRICULAR RESPONSE NONSPECIFIC ST & T-WAVE ABNORMALITY ABNORMAL RHYTHM ECG Electronically Signed On 05-12-2016 16:02:22 EST by Frank Russell
[2016-05-12] MEDS: WARFARIN SOD 1 MG TAB PO SCH (16:25)
[2016-05-12] MEDS: WARFARIN SOD 3 MG TAB PO SCH (16:25)
[2016-05-12] MEDS: PIPERACILLIN/TAZOBACTAM SOD 2.25 GM in D5W MINI-BAG PLUS 50 ML IV SCH (17:54)
[2016-05-12 19:17] VITALS: BP 124/68
[2016-05-12] MEDS: LEVEMIR (INSULIN DETEMIR) 1 UNITS/0.01ML SC SCH (20:43)
[2016-05-12] MEDS: GABAPENTIN 100 MG CAP PO SCH (20:43)
[2016-05-13] MEDS ORDERED: cefTRIAXone SOD 1 GM in D5W MINI-BAG PLUS 50 ML IV SCH ×2
[2016-05-13 00:46] LABS: INR 1.84
[2016-05-13 00:47] VITALS: BP 109/65
[2016-05-13] MEDS: IPRATROPIUM 0.5MG/ALBUTEROL 2.5MG INH SOL UD 3ML (DUONEB)(J7620) NEB SCH ×4 (00:57→20:00)
--- NOTE | 2016-05-13 03:35 | CR ---
DATE OF CONSULTATION: 05/12/2016 CONSULTATION REPORT FOR: Dr. Lona Gutierrez REASON FOR CONSULTATION: Management of end-stage renal disease and hemodialysis. CHIEF COMPLAINT: Patient presented last night with pleuritic chest pain and left foot pain. HISTORY OF PRESENT ILLNESS: Mr. 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 He presented to the emergency room last night complaining of severe left foot pain and pleuritic chest pain. He reports that the foot pain started when the door of the microwave fell on his foot and it started hurting with ambulation. Patient also complained of chest pain which was pleuritic in nature, and he also had some shortness of breath. Pain got worse with deep inspiration and movement and it was not relieved with nitroglycerin or aspirin when he came to the emergency room. Patient got blood cultures done on arrival to the emergency room and preliminary blood cultures in both bottles are growing Gram-positive cocci in chains. Patient was started on empiric antibiotic coverage. Nephrology service was called for management of end-stage renal disease and hemodialysis. PAST MEDICAL HISTORY: 1. End-stage renal disease on hemodialysis every Thursday, Thursday, and Thursday. 2. History of asthma. 3. Benign prostatic hypertrophy (BPH). 4. Insulin-dependent diabetes mellitus. 5. Gout. 6. 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 7. Hypertension. 8. Hyperlipidemia. PAST SURGICAL HISTORY: 1. Status post atrioventricular (AV) fistula of the right arm. 2. History of hernia repair. 3. Status post pacemaker insertion. ALLERGIES: No known drug allergies. CURRENT INPATIENT MEDICATIONS: - Zosyn 2.25 grams IV every 12 hours - vancomycin one gram with hemodialysis - albuterol ipratropium nebulizations - aspirin 81 mg daily - atorvastatin 40 mg daily - PhosLo 1334 mg by mouth with meals - vitamin B12 1000 mcg daily - Uloric 40 mg by mouth daily - gabapentin 100 mg by mouth twice a day - heparin subcutaneous - insulin Levemir 16 units at bedtime - insulin sliding scale - metoprolol tartrate 50 mg twice a day - morphine sulfate as needed for pain - Advair one puff twice a day - Renvela 1600 mg by mouth with meals - Flomax 0.4 mg by mouth daily - Nephro-Martin one tablet daily - warfarin 7 mg daily FAMILY HISTORY: No significant family history of end-stage renal disease or hemodialysis. SOCIAL HISTORY: Patient is a former smoker. He denies any drug abuse or alcohol abuse. REVIEW OF SYSTEMS: CONSTITUTIONAL: Patient reported weakness, pleuritic chest pain, and inability to walk. EYES: Patient reports slight eye blindness. ENT: He denies any recent ear pain or sore throat. RESPIRATORY: Patient reports pleuritic chest pain and some shortness of breath. CARDIOVASCULAR: He denies any palpitations. He reports history of atrial fibrillation (AFib). GASTROINTESTINAL: Patient denies any constipation or diarrhea. GENITOURINARY: Patient has history of end-stage renal disease. MUSCULOSKELETAL: Patient reports left foot pain. CENTRAL NERVOUS SYSTEM: Patient denies any history of strokes or seizures. PSYCHIATRY: He denies any depression or anxiety. SKIN: He denies any ulcers or rashes. PHYSICAL EXAMINATION: GENERAL: The patient is awake, alert, and oriented times three, lying in bed getting hemodialysis done when I examined the patient. VITAL SIGNS: Temperature 100.2 degrees Fahrenheit, blood pressure is 124/68, pulse is 118, respiratory rate of 18, saturating 98% on room air. Intake and output: There is no intake and output recorded at this time. Weight is 129.5 kg. HEAD AND NECK EXAM: Patient has right eye blindness and fibrosis of the right eye. Mucous membranes are moist. Neck is supple. There is no jugular venous distention (JVD). CARDIOVASCULAR: S1, S2 tachycardic, irregular rate. RESPIRATORY: Decreased breath sounds at the bases. Mild crepitations at the bases as well. ABDOMEN: Soft. Positive bowel sounds. Nontender. No hepatosplenomegaly. EXTREMITIES: Patient has left foot tenderness. CENTRAL NERVOUS SYSTEM: No focal neurological deficit. Power is 5/5 in all extremities. AV ACCESS: Patient has a right forearm AV fistula which is being used for dialysis at this time. PSYCH: Normal mood and affect. SKIN: No rashes or ulcers. LAB REVIEW: CBC showed a WBC of 15.1, hemoglobin 10.5, platelets of 157. BMP shows sodium of 135, potassium 5.3, chloride 99, bicarbonate 23, BUN is 80, creatinine is 12.2, calcium is 8. Troponin is 1.19. Albumin is 3.2. MICROBIOLOGY: Blood cultures two out of two bottles are growing Gram positive cocci in chains. IMAGING: CT scan of the chest showed bibasilar atelectasis and possible subtle early infiltrates. X-ray of the left foot showed age-related degenerative changes and vascular calcification. No acute fracture or dislocation. ASSESSMENT: 70-year-old male with past history of end-stage renal disease on hemodialysis, history of insulin-dependent diabetes, asthma, gout, at this time admitted with pleuritic chest pain. He was found to have Gram-positive bacteremia. PLAN: 1. End-stage renal disease. Patient is being dialyzed according to his regular schedule today. We shall try to do an ultrafiltration of about 4-5 liters which we usually do as an outpatient as well. 2. Pleurisy and Gram-positive bacteremia. Patient got a CT scan of the chest done today, which shows possible subtle infiltrate in the bilateral lower lobes. Patient most likely is developing pneumonia. Continue current dose of vancomycin and Zosyn at this time. Once the sensitivity data reports come back, then antibiotics can be tapered down. Chest x-ray is clear. 3. Left foot pain. Patient reports that he dropped microwave door on his foot and that is why it is hurting. However, he has history of gout as well. If his left foot pain does not improve by tomorrow, then he will be given one dose of colchicine 06 mg orally. Continue current dose of Uloric as well. 4. Diabetes mellitus. Continue current dose of Levemir and insulin sliding-scale. 5. Hypertension. Blood pressure is acceptable at this time. Continue current dose of metoprolol. 6. Atrial fibrillation. Currently atrial fibrillation (AFib) is rate controlled. Continue Coumadin 7 mg by mouth daily. If INR remains subtherapeutic, then dose can be increased. 7. 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 Continue current dose of Renvela and PhosLo with meals. Thank you for involving me in the care of this patient. I shall be happy to follow the patient along with you tomorrow morning. Plan of care was discussed with the hospitalist team, Dr. Lona Gutierrez. cc: Lona Gutierrez MD
[2016-05-13 04:37] VITALS: BP 127/61
[2016-05-13] MEDS: PIPERACILLIN/TAZOBACTAM SOD 2.25 GM in D5W MINI-BAG PLUS 50 ML IV SCH ×2 (05:37→17:40)
[2016-05-13 05:52] LABS: MEAN CORPUSCULAR HEMOGLOBIN 33.3 pg (27.0-33.0); MEAN CORPUSCULAR HGB CONC 32.5 g/dl (32.0-36.5); MEAN CORPUSCULAR VOLUME 102.4 fl (80.0-96.0); RED CELL DISTRIBUTION WIDTH 14.2 % (11.5-14.5); WHITE BLOOD COUNT 17.1 K/mm3 (4.0-10.0)
[2016-05-13 05:55] LABS: INR 1.82
[2016-05-13 06:24] LABS: ALBUMIN 2.8 GM/DL (3.2-5.2); ALBUMIN/GLOBULIN RATIO 0.68 (1.00-1.93); CALCIUM LEVEL 8.9 MG/DL (8.8-10.2); CREATININE FOR GFR 8.93 MG/DL (0.70-1.30); GLOMERULAR FILTRATION RATE 7.7 (>49); POTASSIUM SERUM 4.4 MEQ/L (3.5-5.1); TOTAL PROTEIN 6.9 GM/DL (6.4-8.2)
[2016-05-13] MEDS: ADVAIR DISKUS 250/50 INH PWD INH SCH ×2 (07:33→20:31)
[2016-05-13 08:00] VITALS: BP 109/67
[2016-05-13] MEDS: HumaLOG INSULIN (NovoLOG) PER UNIT SC SCH ×4 (08:07→21:00)
[2016-05-13] MEDS: CALCIUM ACETATE 667 MG GELCAP PO SCH ×3 (08:08→17:39)
[2016-05-13] MEDS: (RENVELA) SEVELAMER **CARBONate** 800 MG TAB PO SCH ×3 (08:08→17:38)
[2016-05-13] MEDS: METOPROLOL TART 50 MG TAB PO SCH ×2 (09:00→21:00)
--- NOTE | 2016-05-13 09:07 | IPNPDOC ---
Assessment/Plan Date Seen The patient was seen on 05/13/16. Problems Problems: (1) SOB (shortness of breath) Status: Acute Response to Treatment: Stable Problem Text: Pt is not complaining of SOB or cough at bedside today Pt on O2 therapy-titrate above 90% Rocephin abx continued- may be 2/2 URI Sputum culture pending (2) Pleuritic chest pain Status: Acute Problem Text: pt does say that he has some mild left epigastric dull pain when he coughs on bedside exam today likely 2/2 chronic cough and non-cardiac in nature, EKG has been without ischemic changes First set of troponins in ED was slightly elevated, second and third set normal Chest CT showed bibasilar atelectasis & possible subtle early infiltrate (3) ESRD (end stage renal disease) Status: Chronic Response to Treatment: Stable Problem Text: PT had hemodialysis treatment one day ago Nephrology consulted-appreciate their input (4) Atrial fibrillation Status: Chronic Response to Treatment: Stable Problem Text: Rate is currently controlled Continue pts home Coumadin 7 mg and Metoprolol 50 mg Continue to monitor (5) HTN (hypertension) Status: Chronic Response to Treatment: Stable Problem Text: BP stable PT on home Metoprolol 50 mg (6) Foot pain Status: Chronic Response to Treatment: Stable Problem Text: Foot x-ray negative for acute fractures or dislocation. less likely 2/2 gout- uric acid normal Pt has history of traumatic event to left foot- dropped a door on it- foot x- ray on admission negative for fracture or break No swelling over dorsum of foot is evidenced on bedside exam today. PT/OT consulted (7) Gout Status: Chronic Response to Treatment: Stable Problem Text: Continue pts home Uloric mediation (8) BPH (benign prostatic hyperplasia) Status: Acute Problem Text: continue home Flomax Plan / VTE VTE Prophylaxis Ordered?: Yes Subjective Review of Systems CC/HPI The patient is a 70-year-old male admitted with a reason for visit of Pleuritic Chest Pain. General: Denies: Chills, Fatigue, Night Sweats Constitutional: Denies: Chills, Fever, Malaise, Night Sweats, Weakness Eyes: Denies: Conjunctivae inflammation, Eyelid inflammation, Pain, Vision change ENT: Denies: Head Aches Skin: Denies: Bruising, Jaundice, Lesions, Rash Pulmonary: Reports: Dyspnea, Denies: Cough, Pleuritic Chest Pain Cardiovascular: Reports: Chest Pain (some left epigastric pain with coughing ) , Denies: Edema, Lt Headedness, Orthopnea, Palpitations, Paroxysmal Noc. Dyspnea Gastrointestinal: Denies: Abdominal Pain, Diarrhea, Nausea, Vomiting Hematologic: Denies: Bruising Neurological: Denies: Numbness, Weakness Psych: Reports: Mood Normal Objective Physical Examination General Exam: Positive: Alert, Cooperative, No Acute Distress Eye Exam: Positive: Conjunctiva & lids normal, EOMI, PERRLA, Negative: Ptosis, Sclera icteric ENT Exam: Positive: Atraumatic, Mucous membr. moist/pink, Nares Patent, Pharynx Normal, Tongue Midline, Negative: Pharyngeal Edema Neck Exam: Positive: Supple Chest Exam: Positive: Clear to auscultation, Normal air movement, Negative: Rales, Rhonchi, Wheezing Heart Exam: Positive: Normal S1, Normal S2, Rate Normal Abdomen Exam: Positive: Normal bowel sounds, Soft, Negative: Hepatospenomegaly, Tenderness Extremity Exam: Negative: Clubbing, Cyanosis, Edema Vital Signs/I&O Vital Signs Date Time Temp Pulse Resp B/P Pulse Ox O2 Delivery O2 Flow Rate FiO2 05/13/16 04:37 99.7 107 18 127/61 97 Room Air I&O- Last 24 Hours up to 6 AM 05/13/16 05:59 Intake Total 1600 ml Output Total 5120 ml Balance -3520 ml Laboratory Data Labs 24H Laboratory Tests 2 05/12/16 12:50: Creatine Kinase MB 1.0, Creatine Kinase MB Relative Index 1.19, Total Creatine Kinase 84, Troponin I 0.10 05/12/16 16:36: Bedside Glucose (Misc Panel) 250H 05/12/16 20:30: Bedside Glucose (Misc Panel) 178H 05/12/16 20:45: Creatine Kinase MB 1.0, Creatine Kinase MB Relative Index 0.99, Total Creatine Kinase 101 05/13/16 00:31: Prothromb Time International Ratio 1.84, Prothrombin Time 21.3H 05/13/16 05:16: Prothromb Time International Ratio 1.82, Prothrombin Time 21.2H, Blood Urea Nitrogen 49H, Creatinine 8.93H, Sodium Level 136, Potassium Level 4.4, Chloride Level 97L, Carbon Dioxide Level 29, Calcium Level 8.9, Aspartate Amino Transf ( AST/SGOT) 6L, Alanine Aminotransferase (ALT/SGPT) 17, Alkaline Phosphatase 74, Total Bilirubin 1.0, Total Protein 6.9, Albumin 2.8L, Albumin/Globulin Ratio 0.68L, Anion Gap 10, Glomerular Filtration Rate 7.7L CBC/BMP Laboratory Tests 05/13/16 05:16 Calcium Level 8.9, Aspartate Amino Transf (AST/SGOT) 6 L, Alanine Aminotransferase (ALT/SGPT) 17, Alkaline Phosphatase 74, Total Bilirubin 1.0, Total Protein 6.9, Albumin 2.8 L, Red Blood Count 3.07 L, Mean Corpuscular Volume 102.4 H, Mean Corpuscular Hemoglobin 33.3 H, Mean Corpuscular Hemoglobin Concent 32.5, Red Cell Distribution Width 14.2 Microbiology Microbiology 05/11/16 Blood Culture - Preliminary, Resulted 05/11/16 Blood Culture - Preliminary, Resulted 05/12/16 Gram Stain - Final, Resulted 05/12/16 Sputum Culture, Resulted Pending GME ATTESTATION GME ATTESTATION My preceptor for this patient encounter was physically present in the building during the encounter and was fully available. As needed, all aspects of the patient interview, examination, medical decision making process, and medical care plan development were reviewed and approved by the preceptor. Preceptor is aware and concurs with the plan as stated in the body of this note and will attest to such by his/her cosignature. LYNNE TINOCO OGME-1 May 13, 2016 09:07
[2016-05-13] MEDS: FEBUXOSTAT 40 MG TABLET (ULORIC) PO SCH (09:24)
[2016-05-13] MEDS: CYANOCOBALAMIN 500 MCG TAB PO SCH (09:24)
[2016-05-13] MEDS: TAMSULOSIN 0.4 MG CAP PO SCH (09:25)
[2016-05-13] MEDS: ATORVASTATIN 20 MG TAB PO SCH (09:25)
[2016-05-13] MEDS: GABAPENTIN 100 MG CAP PO SCH ×2 (09:25→22:12)
[2016-05-13] MEDS: ASPIRIN 81 MG CHEW TABLET PO SCH (09:25)
[2016-05-13] MEDS: NEPHRO-VIT TAB (NEPHROCAPS) PO SCH (09:26)
[2016-05-13 12:00] VITALS: BP 113/65
[2016-05-13] MEDS ORDERED: COLCHICINE 0.6 MG TAB PO ONE (13:00)
[2016-05-13] MEDS: MIRALAX *UNIT DOSE* 17GM PACKET PO SCH (14:12)
[2016-05-13] MEDS: BISACODYL 10 MG SUPP PR SCH (14:13)
[2016-05-13] MEDS: CHECK TO SEE IF PATIENT IS RECEIVING DIALYSIS TODAY AND REFER TO THE VANCOMYCIN ORDER XX SCH (15:29)
[2016-05-13 16:00] VITALS: BP 137/77
[2016-05-13] MEDS ORDERED: ALBUTEROL 90 MCG/ACT 8GM HFA INHALER INH PRN (17:30)
[2016-05-13] MEDS ORDERED: NITROGLYCERIN 0.4 MG SUBL TABLET SL PRN (17:30)
[2016-05-13] MEDS: WARFARIN SOD 3 MG TAB PO SCH (17:38)
[2016-05-13] MEDS: WARFARIN SOD 1 MG TAB PO SCH (17:39)
[2016-05-13 20:00] VITALS: BP 115/71
[2016-05-13] MEDS: LEVEMIR (INSULIN DETEMIR) 1 UNITS/0.01ML SC SCH (21:00)
[2016-05-13] MEDS: MORPHINE 2 MG/ML 1ML SYRINGE IV PRN (22:12)
[2016-05-14 01:00] LABS: INR 1.57
[2016-05-14] MEDS: IPRATROPIUM 0.5MG/ALBUTEROL 2.5MG INH SOL UD 3ML (DUONEB)(J7620) NEB SCH ×4 (01:44→20:00)
[2016-05-14 04:00] VITALS: BP 121/68
--- NOTE | 2016-05-14 04:24 | EDDOCDS ---
Physician Documentation [facility] Name: Irwin Lobo Age: 70 yrs Sex: Male : 1945 Arrival Date: 05/11/2016 Time: 18:58 Bed 4 Private MD: Jayy Alvarez P Disposition: 05/11/16 23:26 Hospitalization ordered by Emily Dorantes for Inpatient Admission. Preliminary diagnosis are Chest pain, unspecified - Pleuritic, Pain in left foot, Difficulty in walking, not elsewhere classified. - Bed requested for PCU. - Status is Inpatient Admission. ko2 - Condition is Stable. - Problem is an acute exacerbation. - Symptoms have improved. Historical: - Allergies: no known allergies; - Home Meds: 1. Advair Diskus 250-50 mcg/dose Inhl dsdv 1 puff 2 times per day 2. albuterol sulfate 90 mcg/actuation Inhl HFAA 2 puffs every 4-6 hours 3. aspirin 81 mg Oral chew 1 tab once daily 4. atorvastatin 40 mg oral tab 1 tab once daily 5. Coumadin 7 mg Oral tab 1 tab once daily 6. Levemir 100 unit/mL subcutaneous soln 16 unit nightly 7. Humalog 100 unit/mL Sub-Q crtg 8. metoprolol tartrate 50 mg Oral tab 1 tab 2 times per day 9. calcium acetate 667 mg oral cap 2 caps 3 times per day 10. Sensipar 30 mg oral tab 1 tab once daily 11. Renvela 800 mg oral tab 2 tabs 3 times per day 12. Vitamin B-12 1,000 mcg Oral tab 1,000 mcg daily 13. gabapentin 100 mg Oral cap 1 caps daily 14. tamsulosin 0.4 mg oral cp24 1 cap once daily 15. colchicine 0.6 mg Oral tab 1 tab as needed 16. Uloric 40 mg oral tab 1 tab once daily 17. Nitrostat 0.4 mg SL subl 1 tab as needed 18. Nephro-Martin 0.8 mg oral tab daily 19. Vitamin D Oral 53861 unit daily - PMHx: Asthma; BPH; Chronic Renal Failure with dialysis; Diabetes - IDDM: uncontrolled; Gout; Herpes of Right Eye; Hypercholesterolemia; Hypertension; - PSHx: AV fistula right arm; Hernia repair; Pacemaker Insertion; - Social history: Smoking status: Patient states former smoker of tobacco. No barriers to communication noted, The patient speaks fluent Tajik, Speaks appropriately for age, blind in right eye. - Family history: Not pertinent. - : The pt / caregiver states he / she is on anticoagulants: coumadin. Home medication list is obtained from pill bottles. - Exposure Risk Screening:: None identified. Vital Signs: 05/11 19:10 BP 125 / 70; Pulse 100; Resp 32; Pulse Ox 93% on R/A; Weight 122.92 kg / 270.99 lbs; ls3 19:13 Temp 100.6(O); ls3 19:36 BP 115 / 68 (auto/); ld5 19:40 Pulse 100 MON; Pulse Ox 96% ; ld5 19:50 Resp 26; ld5 21:12 BP 133 / 73 (auto/); ld5 21:12 Pulse 94 MON; Resp 22; Pulse Ox 97% ; ld5 21:37 BP 128 / 80 (auto/); ld5 21:37 Pulse 94 MON; Temp 100.6(O); Pulse Ox 97% ; ld5 22:07 BP 132 / 75 (auto/); ld5 22:08 Pulse 96 MON; Pulse Ox 98% ; ld5 22:11 BP 132 / 81 (auto/); ld5 22:13 Pulse 96 MON; Pulse Ox 99% ; ld5 22:42 Pulse 96 MON; Pulse Ox 98% ; ld5 22:57 BP 138 / 80 (auto/); Pulse 98; Resp 20; Temp 100.2(O); Pulse Ox 97% on R/A; Pain 6/10; ld5 23:39 Pulse 98 MON; Pulse Ox 97% ; ko2 23:41 BP 140 / 79 (auto/); ko2 05/12 00:10 Pulse 100 MON; ko2 00:11 BP 129 / 78 (auto/); ko2 00:40 Pulse 102 MON; ko2 00:41 BP 129 / 77 (auto/); ko2 01:11 BP 137 / 86 (auto/); ko2 01:11 Pulse 98 MON; ko2 01:42 BP 129 / 76; Pulse 92; Resp 18; Temp 98.9; Pulse Ox 98% ; Pain 0/10; ko2 MDM: 05/11 19:01 ECG WITH READING ER PHYS+CARDIAG ordered. EDMS 19:28 Ondansetron 4 mg IVP once ordered. mm11 19:28 Publishing Director/Pulse Ox/q 30 min VS ordered. mm11 19:28 IV Saline Lock ordered. mm11 19:28 Rhythm Strip to chart ordered. mm11 19:28 Undress patient appropriately for examination ordered. mm11 19:28 morphine 4 mg IVP every 30 minutes; Document pain score/vitals after each dose (Hold if mm11 SBP < 90mmHg) x2 ordered. 19:28 -Blood Culture (Adults Only), peripheral from different site, or from device/port/PICC mm11 etc. if present ordered. 19:29 Basic Metabolic Profile Ordered. EDMS 19:29 CBC with Diff Ordered. EDMS 19:29 Cardiac Injury Profile Ordered. EDMS 19:29 Troponin Ordered. EDMS 19:29 -Blood Culture Ordered. EDMS 19:29 Chest, 2 View (pa\E\lat) Ordered. EDMS 19:30 Foot, Complete Ordered. EDMS 19:57 Financial registration complete. [email or web address] 19:57 [facility] Payment Agreement was scanned into [employer] and attached to record. [email or web address] 19:58 -Blood Culture (Adults Only), peripheral from different site, or from device/port/PICC ml3 etc. if present complete. 20:00 BLOOD CULTURES Ordered. EDMS 21:30 morphine 4 mg IM once ordered. ld5 21:40 CBC with Diff Reviewed. mm11 22:15 Basic Metabolic Profile Reviewed. mm11 22:15 Troponin Reviewed. mm11 22:15 Cardiac Injury Profile Reviewed. mm11 22:33 Dilaudid - HYDROmorphone 1 mg IM once ordered. mm11 22:52 Dilaudid - HYDROmorphone 1 mg IVP once ordered. mm11 23:13 BED REQUEST+ADM ordered. EDMS 23:14 cefTRIAXone 1 grams IVPB once over 30 mins; dilute in 50mL of NS or D5W ordered. mm11 05/12 00:30 Admission / Observation Status ordered. EDMS 00:31 CONSISTENT CARBOHYDRATES ordered. EDMS 00:31 CARDIAC INJURY PROFILE Ordered. EDMS 00:31 CARDIAC INJURY PROFILE Ordered. EDMS 00:31 CARDIAC INJURY PROFILE Ordered. EDMS 00:31 PROTHROMBIN TIME PROFILE\E\INR Ordered. EDMS 00:34 URIC ACID Ordered. EDMS 03:16 SPUTUM CULTURE AND GRAM STAIN Ordered. EDMS 03:17 ELECTROCARDIOGRAM ADULT ordered. EDMS 04:20 T-Sheet-- Draft Copy was scanned into [employer]ia and attached to record. lja 09:45 ECG/EKG was scanned into [employer] and attached to record. gb 09:45 Radiology Report was scanned into [employer] and attached to record. gb Administered Medications: 05/11 21:30 Drug: morphine 4 mg [morphine 4 mg/mL intravenous cartridge (1 mL)] Route: IM; Site: ld5 left deltoid; 22:30 Follow up: Response: Confirmed pt not driving.; No significant change.; see vital recordld5 22:51 Not Given (Other Intervention Used): Dilaudid - HYDROmorphone 1 mg IM once mm11 22:54 Drug: Dilaudid - HYDROmorphone 1 mg [hydromorphone 1 mg/mL injection syringe (1 mL)] ld5 Route: IVP; Site: right foot; 23:35 Drug: cefTRIAXone 1 grams [ceftriaxone 1 gram solution for injection] Route: IVPB; ko2 Infused Over: 30 mins; Site: right foot; 05/12 01:51 Follow up: IV Status: Completed infusion; IV Intake: 50ml ko2 Signatures: Dispatcher [employer] EDMS Jeanine Jurado, Reg Reg gb Jefry Osorio, [employer] Unit ml3 Norman Sainz, DO mm11 Kusum Sharif,RN RN ld5 Nicky Valdez RN RN ko2 Alondra, Kerri Marinelli, Reg Reg [email or web address] The chart was reviewed and I authenticate all verbal orders and agree with the evaluation and treatment provided.Attachments: 05/11 19:57 [facility] Payment Agreement [email or web address] 05/12 04:20 T-Sheet-- Draft Copy lja 09:45 ECG/EKG gb Chart Complete MTDD
--- NOTE | 2016-05-14 04:24 | EDDOCDS ---
Physician Documentation [facility] Name: Irwin Lobo Age: 70 yrs Sex: Male : 1945 Arrival Date: 05/11/2016 Time: 18:58 Bed 4 Private MD: Jayy Alvarez P Disposition: 05/11/16 23:26 Hospitalization ordered by Emily Dorantes for Inpatient Admission. Preliminary diagnosis are Chest pain, unspecified - Pleuritic, Pain in left foot, Difficulty in walking, not elsewhere classified. - Bed requested for PCU. - Status is Inpatient Admission. ko2 - Condition is Stable. - Problem is an acute exacerbation. - Symptoms have improved. Historical: - Allergies: no known allergies; - Home Meds: 1. Advair Diskus 250-50 mcg/dose Inhl dsdv 1 puff 2 times per day 2. albuterol sulfate 90 mcg/actuation Inhl HFAA 2 puffs every 4-6 hours 3. aspirin 81 mg Oral chew 1 tab once daily 4. atorvastatin 40 mg oral tab 1 tab once daily 5. Coumadin 7 mg Oral tab 1 tab once daily 6. Levemir 100 unit/mL subcutaneous soln 16 unit nightly 7. Humalog 100 unit/mL Sub-Q crtg 8. metoprolol tartrate 50 mg Oral tab 1 tab 2 times per day 9. calcium acetate 667 mg oral cap 2 caps 3 times per day 10. Sensipar 30 mg oral tab 1 tab once daily 11. Renvela 800 mg oral tab 2 tabs 3 times per day 12. Vitamin B-12 1,000 mcg Oral tab 1,000 mcg daily 13. gabapentin 100 mg Oral cap 1 caps daily 14. tamsulosin 0.4 mg oral cp24 1 cap once daily 15. colchicine 0.6 mg Oral tab 1 tab as needed 16. Uloric 40 mg oral tab 1 tab once daily 17. Nitrostat 0.4 mg SL subl 1 tab as needed 18. Nephro-Martin 0.8 mg oral tab daily 19. Vitamin D Oral 24379 unit daily - PMHx: Asthma; BPH; Chronic Renal Failure with dialysis; Diabetes - IDDM: uncontrolled; Gout; Herpes of Right Eye; Hypercholesterolemia; Hypertension; - PSHx: AV fistula right arm; Hernia repair; Pacemaker Insertion; - Social history: Smoking status: Patient states former smoker of tobacco. No barriers to communication noted, The patient speaks fluent Syriac, Speaks appropriately for age, blind in right eye. - Family history: Not pertinent. - : The pt / caregiver states he / she is on anticoagulants: coumadin. Home medication list is obtained from pill bottles. - Exposure Risk Screening:: None identified. Vital Signs: 05/11 19:10 BP 125 / 70; Pulse 100; Resp 32; Pulse Ox 93% on R/A; Weight 122.92 kg / 270.99 lbs; ls3 19:13 Temp 100.6(O); ls3 19:36 BP 115 / 68 (auto/); ld5 19:40 Pulse 100 MON; Pulse Ox 96% ; ld5 19:50 Resp 26; ld5 21:12 BP 133 / 73 (auto/); ld5 21:12 Pulse 94 MON; Resp 22; Pulse Ox 97% ; ld5 21:37 BP 128 / 80 (auto/); ld5 21:37 Pulse 94 MON; Temp 100.6(O); Pulse Ox 97% ; ld5 22:07 BP 132 / 75 (auto/); ld5 22:08 Pulse 96 MON; Pulse Ox 98% ; ld5 22:11 BP 132 / 81 (auto/); ld5 22:13 Pulse 96 MON; Pulse Ox 99% ; ld5 22:42 Pulse 96 MON; Pulse Ox 98% ; ld5 22:57 BP 138 / 80 (auto/); Pulse 98; Resp 20; Temp 100.2(O); Pulse Ox 97% on R/A; Pain 6/10; ld5 23:39 Pulse 98 MON; Pulse Ox 97% ; ko2 23:41 BP 140 / 79 (auto/); ko2 05/12 00:10 Pulse 100 MON; ko2 00:11 BP 129 / 78 (auto/); ko2 00:40 Pulse 102 MON; ko2 00:41 BP 129 / 77 (auto/); ko2 01:11 BP 137 / 86 (auto/); ko2 01:11 Pulse 98 MON; ko2 01:42 BP 129 / 76; Pulse 92; Resp 18; Temp 98.9; Pulse Ox 98% ; Pain 0/10; ko2 MDM: 05/11 19:01 ECG WITH READING ER PHYS+CARDIAG ordered. EDMS 19:28 Ondansetron 4 mg IVP once ordered. mm11 19:28 Excel Analyst/Pulse Ox/q 30 min VS ordered. mm11 19:28 IV Saline Lock ordered. mm11 19:28 Rhythm Strip to chart ordered. mm11 19:28 Undress patient appropriately for examination ordered. mm11 19:28 morphine 4 mg IVP every 30 minutes; Document pain score/vitals after each dose (Hold if mm11 SBP < 90mmHg) x2 ordered. 19:28 -Blood Culture (Adults Only), peripheral from different site, or from device/port/PICC mm11 etc. if present ordered. 19:29 Basic Metabolic Profile Ordered. EDMS 19:29 CBC with Diff Ordered. EDMS 19:29 Cardiac Injury Profile Ordered. EDMS 19:29 Troponin Ordered. EDMS 19:29 -Blood Culture Ordered. EDMS 19:29 Chest, 2 View (pa\E\lat) Ordered. EDMS 19:30 Foot, Complete Ordered. EDMS 19:57 Financial registration complete. [email or web address] 19:57 [facility] Payment Agreement was scanned into [employer] and attached to record. [email or web address] 19:58 -Blood Culture (Adults Only), peripheral from different site, or from device/port/PICC ml3 etc. if present complete. 20:00 BLOOD CULTURES Ordered. EDMS 21:30 morphine 4 mg IM once ordered. ld5 21:40 CBC with Diff Reviewed. mm11 22:15 Basic Metabolic Profile Reviewed. mm11 22:15 Troponin Reviewed. mm11 22:15 Cardiac Injury Profile Reviewed. mm11 22:33 Dilaudid - HYDROmorphone 1 mg IM once ordered. mm11 22:52 Dilaudid - HYDROmorphone 1 mg IVP once ordered. mm11 23:13 BED REQUEST+ADM ordered. EDMS 23:14 cefTRIAXone 1 grams IVPB once over 30 mins; dilute in 50mL of NS or D5W ordered. mm11 05/12 00:30 Admission / Observation Status ordered. EDMS 00:31 CONSISTENT CARBOHYDRATES ordered. EDMS 00:31 CARDIAC INJURY PROFILE Ordered. EDMS 00:31 CARDIAC INJURY PROFILE Ordered. EDMS 00:31 CARDIAC INJURY PROFILE Ordered. EDMS 00:31 PROTHROMBIN TIME PROFILE\E\INR Ordered. EDMS 00:34 URIC ACID Ordered. EDMS 03:16 SPUTUM CULTURE AND GRAM STAIN Ordered. EDMS 03:17 ELECTROCARDIOGRAM ADULT ordered. EDMS 04:20 T-Sheet-- Draft Copy was scanned into [employer] and attached to record. lja 09:45 ECG/EKG was scanned into [employer] and attached to record. gb 09:45 Radiology Report was scanned into [employer] and attached to record. gb Administered Medications: 05/11 21:30 Drug: morphine 4 mg [morphine 4 mg/mL intravenous cartridge (1 mL)] Route: IM; Site: ld5 left deltoid; 22:30 Follow up: Response: Confirmed pt not driving.; No significant change.; see vital recordld5 22:51 Not Given (Other Intervention Used): Dilaudid - HYDROmorphone 1 mg IM once mm11 22:54 Drug: Dilaudid - HYDROmorphone 1 mg [hydromorphone 1 mg/mL injection syringe (1 mL)] ld5 Route: IVP; Site: right foot; 23:35 Drug: cefTRIAXone 1 grams [ceftriaxone 1 gram solution for injection] Route: IVPB; ko2 Infused Over: 30 mins; Site: right foot; 05/12 01:51 Follow up: IV Status: Completed infusion; IV Intake: 50ml ko2 Signatures: Dispatcher [employer] EDMS Jeanine Jurado, Reg Reg gb Jefry Osorio, [employer] ml3 Norman Sainz, DO mm11 Kusum Sharif,RN RN ld5 Nicky Valdez RN RN ko2 Alondra, Kerri Marinelli, Reg Reg [email or web address] The chart was reviewed and I authenticate all verbal orders and agree with the evaluation and treatment provided.Attachments: 05/11 19:57 [facility] Payment Agreement [email or web address] 05/12 04:20 T-Sheet-- Draft Copy lja 09:45 ECG/EKG gb Chart Complete MTDD
--- NOTE | 2016-05-14 04:25 | EDDOCDS ---
Nurse's Notes [facility] Name: Irwin Lobo Age: 70 yrs Sex: Male : 1945 Arrival Date: 05/11/2016 Time: 18:58 Bed 4 Private MD: Jayy Alvarez P Diagnosis: Chest pain, unspecified-Pleuritic;Pain in left foot;Difficulty in walking, not elsewhere classified Presentation: 05/11 19:03 Presenting complaint: Patient states: "My feet hurt and I have a cough and some chest ld5 pain. I think I have pneumonia." I nitro given en route with some relief. 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 Suicide/Homicide risk assessment- the patient denies having any suicidal and/or homicidal ideations and does not present with any other emotional, behavioral or mental health complaints. Status: Patient is not a health services manager or dependent. Transition of care: patient was not received from another setting of care. Care prior to arrival: Medications administered prior to arrival: NTG, x1, ASA 324 mg. 19:03 Method Of Arrival: Ambulance ld5 19:19 Adult Sepsis Screening: The patient does not have new or worsening altered mentation. ld5 Patient has a respiratory rate of greater than or equal to 22 (1 point). Systolic blood pressure is greater than 100. Patient has a qSOFA score of 1- Negative Sepsis Screen. 19:19 Acuity: RAVIN Level 2 ld5 Triage Assessment: 19:15 General: Appears in no apparent distress. Pain: Location: left breast, right foot and ld5 left foot Pain currently is 7 out of 10 on a pain scale. Aggravated by weight bearing, cough. Neurological: Level of Consciousness is awake, alert. Cardiovascular: Chest pain is described as mild, radiates Does not radiate. episodes are intermittent began "sometime today". Respiratory: Airway is patent Breath sounds are diminished in left posterior lower lobe and right posterior lower lobe Breath sounds with wheezes in left posterior lower lobe. GI: Abdomen is obese, Bowel sounds present X 4 quads. Historical: - Allergies: no known allergies; - Home Meds: 1. Advair Diskus 250-50 mcg/dose Inhl dsdv 1 puff 2 times per day 2. albuterol sulfate 90 mcg/actuation Inhl HFAA 2 puffs every 4-6 hours 3. aspirin 81 mg Oral chew 1 tab once daily 4. atorvastatin 40 mg oral tab 1 tab once daily 5. Coumadin 7 mg Oral tab 1 tab once daily 6. Levemir 100 unit/mL subcutaneous soln 16 unit nightly 7. Humalog 100 unit/mL Sub-Q crtg 8. metoprolol tartrate 50 mg Oral tab 1 tab 2 times per day 9. calcium acetate 667 mg oral cap 2 caps 3 times per day 10. Sensipar 30 mg oral tab 1 tab once daily 11. Renvela 800 mg oral tab 2 tabs 3 times per day 12. Vitamin B-12 1,000 mcg Oral tab 1,000 mcg daily 13. gabapentin 100 mg Oral cap 1 caps daily 14. tamsulosin 0.4 mg oral cp24 1 cap once daily 15. colchicine 0.6 mg Oral tab 1 tab as needed 16. Uloric 40 mg oral tab 1 tab once daily 17. Nitrostat 0.4 mg SL subl 1 tab as needed 18. Nephro-Martin 0.8 mg oral tab daily 19. Vitamin D Oral 30052 unit daily - PMHx: Asthma; BPH; Chronic Renal Failure with dialysis; Diabetes - IDDM: uncontrolled; Gout; Herpes of Right Eye; Hypercholesterolemia; Hypertension; - PSHx: AV fistula right arm; Hernia repair; Pacemaker Insertion; - Social history: Smoking status: Patient states former smoker of tobacco. No barriers to communication noted, The patient speaks fluent Mexican, Speaks appropriately for age, blind in right eye. - Family history: Not pertinent. - : The pt / caregiver states he / she is on anticoagulants: coumadin. Home medication list is obtained from pill bottles. - Exposure Risk Screening:: None identified. Screenin/26 01:51 Screening information is obtained from the patient. Fall risk: At risk due to prior ko2 history of falls. Assistance ADL's: requires no assistance with activities of daily living. Abuse/DV Screen: The patient / caregiver reports he/she is: not in a situation that causes fear, pain or injury. Nutritional screening: No deficits noted. Advance Directives: Currently, there is no health care proxy. home support is adequate. Assessment: 05/11 19:49 General: Pt becoming upset over difficulty with obtaining IV access. Support provided. ld5 20:00 General: Pt goes to dialysis Mon, Wed and Thu. ld5 20:40 General: Spoke with Dr. aSinz regarding difficulty obtaining IV access. Will obtain ld5 blood for the time being per MD. Will continue to monitor. 20:45 General: Lab in to draw blood. ld5 20:59 General: Pt resting quietly in bed. No apparent distress. Will continue to monitor. ld5 21:30 General: Pt laying in bed with eyes closed. Lights dimmed for comfort. SO remains at ld5 bedside. Will continue to monitor. 22:43 General: Pt requesting Dilaudid be held while IV access is attempted again. ld5 23:00 General: IV access obtained to right foot. Jose wrap applied to protect site. Pt ld5 medicated per orders for 11/24 pain. Pt denies any needs. Will continue to monitor. 05/12 00:00 General: Appears in no apparent distress, comfortable, Behavior is appropriate for age, ko2 cooperative. Neurological: Level of Consciousness is awake, alert. Cardiovascular: Rhythm is. Respiratory: Airway is patent Respiratory effort is even, unlabored. Derm: Skin is normal. 01:00 General: Appears in no apparent distress, comfortable, Behavior is appropriate for age, ko2 cooperative. Neurological: Level of Consciousness is awake, alert. Respiratory: Airway is patent Respiratory effort is even, unlabored. Derm: Skin is black. 01:50 General: Appears in no apparent distress, comfortable, Behavior is appropriate for age, ko2 cooperative. Neurological: Level of Consciousness is awake, alert. Respiratory: Airway is patent Respiratory effort is even, unlabored. Derm: Skin is black. Vital Signs: 05/11 19:10 BP 125 / 70; Pulse 100; Resp 32; Pulse Ox 93% on R/A; Weight 122.92 kg; ls3 19:13 Temp 100.6(O); ls3 19:36 BP 115 / 68 (auto/); ld5 19:40 Pulse 100 MON; Pulse Ox 96% ; ld5 19:50 Resp 26; ld5 21:12 BP 133 / 73 (auto/); ld5 21:12 Pulse 94 MON; Resp 22; Pulse Ox 97% ; ld5 21:37 BP 128 / 80 (auto/); ld5 21:37 Pulse 94 MON; Temp 100.6(O); Pulse Ox 97% ; ld5 22:07 BP 132 / 75 (auto/); ld5 22:08 Pulse 96 MON; Pulse Ox 98% ; ld5 22:11 BP 132 / 81 (auto/); ld5 22:13 Pulse 96 MON; Pulse Ox 99% ; ld5 22:42 Pulse 96 MON; Pulse Ox 98% ; ld5 22:57 BP 138 / 80 (auto/); Pulse 98; Resp 20; Temp 100.2(O); Pulse Ox 97% on R/A; Pain 6/10; ld5 23:39 Pulse 98 MON; Pulse Ox 97% ; ko2 23:41 BP 140 / 79 (auto/); ko2 05/12 00:10 Pulse 100 MON; ko2 00:11 BP 129 / 78 (auto/); ko2 00:40 Pulse 102 MON; ko2 00:41 BP 129 / 77 (auto/); ko2 01:11 BP 137 / 86 (auto/); ko2 01:11 Pulse 98 MON; ko2 01:42 BP 129 / 76; Pulse 92; Resp 18; Temp 98.9; Pulse Ox 98% ; Pain 0/10; ko2 Vitals: 01:41 Log In Time N/A - ambulance arrival. ko2 ED Course: 05/11 18:59 Patient visited by Jefry Osorio, Medical Biller/Coder. ml3 18:59 Patient moved to Waiting ml3 19:00 Jayy Alvarez is Private Physician. ml3 19:00 Simona Zee,RN is Primary Nurse. ml3 19:00 Patient moved to 4 ml3 19:09 Norman Sainz DO is Attending Physician. mm11 19:09 Patient visited by Norman Sainz DO. mm11 19:12 Patient visited by Christina Keene PCA. ls3 19:19 Patient visited by Kusum Sharif,JERRICA. ld5 19:19 Triage Initiated ld5 19:27 Patient visited by Norman Sainz DO. mm11 19:41 -Blood Culture Sent. ld5 19:51 The patient / caregiver is instructed regarding the plan of care and ED course. ld5 Accompanied by Significant Other, Patient has correct armband on for positive identification. Placed in gown. Bed in low position. Call light in reach. Side rails up X2. school lunch monitor on. Pulse ox on. NIBP on. 19:57 [facility] Payment Agreement was scanned into [employer] and attached to record. ks16 20:07 Patient visited by Kusum Sharif,JERRICA. ld5 21:00 Patient visited by Kusum Sharif RN. ld5 21:40 Patient visited by Norman Sainz DO. mm11 22:20 Patient visited by Norman Sainz DO. mm11 22:44 Patient visited by Kusum Sharif,JERRICA. ld5 23:01 Patient visited by Kusum Sharif RN. ld5 23:02 Inserted saline lock: 22 gauge in right foot by Mitch Khan RN. ld5 23:26 Emily Dorantes is Hospitalizing Provider. mm11 05/12 01:53 No procedures done that require assistance. ko2 04:20 T-Sheet-- Draft Copy was scanned into [employer] and attached to record. lja 09:45 ECG/EKG was scanned into [employer] and attached to record. gb 09:45 Radiology Report was scanned into [employer] and attached to record. gb Administered Medications: 05/11 21:30 Drug: morphine 4 mg [morphine 4 mg/mL intravenous cartridge (1 mL)] Route: IM; Site: ld5 left deltoid; 22:30 Follow up: Response: Confirmed pt not driving.; No significant change.; see vital recordld5 22:51 Not Given (Other Intervention Used): Dilaudid - HYDROmorphone 1 mg IM once mm11 22:54 Drug: Dilaudid - HYDROmorphone 1 mg [hydromorphone 1 mg/mL injection syringe (1 mL)] ld5 Route: IVP; Site: right foot; 23:35 Drug: cefTRIAXone 1 grams [ceftriaxone 1 gram solution for injection] Route: IVPB; ko2 Infused Over: 30 mins; Site: right foot; 05/12 01:51 Follow up: IV Status: Completed infusion; IV Intake: 50ml ko2 Intake: 01:51 IV: 50.00ml; Total: 50.00ml. ko2 Order Results: Lab Order: Basic Metabolic Profile; SPEC'M 05/11/16 20:52 Test: GLUCOSE, FASTING; Value: 139; Range: 80-110; Abnormal: Above high normal; Units: MG/DL; Status: F Test: BLOOD UREA NITROGEN; Value: 75; Range: 7-18; Abnormal: Above high normal; Units: MG/DL; Status: F Test: CREATININE FOR GFR; Value: 11.00; Range: 0.70-1.30; Abnormal: Above high normal; Units: MG/DL; Status: F Test: GLOMERULAR FILTRATION RATE; Value: 6.0; Range: >49; Abnormal: Below low normal; Status: F Test: SODIUM LEVEL; Value: 136; Range: 136-145; Units: MEQ/L; Status: F Test: POTASSIUM SERUM; Value: 4.8; Range: 3.5-5.1; Units: MEQ/L; Status: F Test: CHLORIDE LEVEL; Value: 100; Range: 98-107; Units: MEQ/L; Status: F Test: CARBON DIOXIDE LEVEL; Value: 25; Range: 21-32; Units: MEQ/L; Status: F Test: ANION GAP; Value: 11; Range: 8-16; Units: MEQ/L; Status: F Test: CALCIUM LEVEL; Value: 8.3; Range: 8.8-10.2; Abnormal: Below low normal; Units: MG/DL; Status: F Test Note: ; Units are mL/min/1.73 m2 Chronic Kidney Disease Staging per NKF: Stage I & II GFR >=60 Normal to Mildly Decreased Stage III GFR 30-59 Moderately Decreased Stage IV GFR 15-29 Severely Decreased Stage V GFR <15 Very Little GFR Left ESRD GFR <15 on WOOL GRADER Lab Order: CBC with Diff; SPEC'M 05/11/16 20:52 Test: WHITE BLOOD COUNT; Value: 13.8; Range: 4.0-10.0; Abnormal: Above high normal; Units: K/mm3; Status: F Test: RED BLOOD COUNT; Value: 3.12; Range: 4.30-6.10; Abnormal: Below low normal; Units: M/mm3; Status: F Test: HEMOGLOBIN; Value: 10.5; Range: 14.0-18.0; Abnormal: Below low normal; Units: g/dl; Status: F Test: HEMATOCRIT; Value: 32.6; Range: 42.0-52.0; Abnormal: Below low normal; Units: %; Status: F Test: MEAN CORPUSCULAR VOLUME; Value: 104.7; Range: 80.0-96.0; Abnormal: Above high normal; Units: fl; Status: F Test: MEAN CORPUSCULAR HEMOGLOBIN; Value: 33.6; Range: 27.0-33.0; Abnormal: Above high normal; Units: pg; Status: F Test: MEAN CORPUSCULAR HGB CONC; Value: 32.1; Range: 32.0-36.5; Units: g/dl; Status: F Test: RED CELL DISTRIBUTION WIDTH; Value: 13.9; Range: 11.5-14.5; Units: %; Status: F Test: PLATELET COUNT, AUTOMATED; Value: 155; Range: 150-450; Units: k/mm3; Status: F Test: NEUTROPHILS %; Value: 85.8; Range: 36.0-66.0; Abnormal: Above high normal; Units: %; Status: F Test: LYMPH %; Value: 4.6; Range: 24.0-44.0; Abnormal: Below low normal; Units: %; Status: F Test: MONO %; Value: 6.6; Range: 0.0-5.0; Abnormal: Above high normal; Units: %; Status: F Test: EOS %; Value: 0.6; Range: 0.0-3.0; Units: %; Status: F Test: BASO %; Value: 0.6; Range: 0.0-1.0; Units: %; Status: F Test: LARGE UNSTAINED CELL %; Value: 1.9; Range: 0.0-4.0; Units: %; Status: F Test: NEUTROPHILS #; Value: 11.8; Range: 1.8-7.7; Abnormal: Above high normal; Units: K/mm3; Status: F Test: LYMPH #; Value: 0.9; Range: 1.5-4.5; Abnormal: Below low normal; Units: K/mm3; Status: F Test: MONO #; Value: 0.9; Range: 0.0-0.8; Abnormal: Above high normal; Units: K/mm3; Status: F Test: EOS #; Value: 0.1; Range: 0.0-0.50; Units: K/mm3; Status: F Test: BASO #; Value: 0.1; Range: 0.0-0.2; Units: K/mm3; Status: F Test: LARGE UNSTAINED CELL #; Value: 0.3; Range: 0.0-0.4; Units: K/mm3; Status: F Lab Order: Cardiac Injury Profile; [facility] 05/11/16 20:52 Test: CPK CREATINE PHOSPHOKINASE; Value: 83; Range: 39-308; Units: U/L; Status: F Test: CK-MB VALUE MASS; Value: 1.0; Range: 0.0-3.6; Units: NG/ML; Status: F Test: MB/CK RELATIVE INDEX; Value: 1.20; Range: < OR =4; Status: F Test Note: ; DIAGNOSIS CRITERIA MMB ng/ml Relative Index (RI) NON-AMI < or = 5 N/A VASQUES ZONE > 5 < or = 4 AMI > 5 > 4 Lab Order: Troponin; [facility] 05/11/16 20:52 Test: TROPONIN I; Value: 0.12; Range: < 0.10; Abnormal: Above high normal; Units: NG/ML; Status: F Test Note: ; Troponin I Reference Interval for [facility] LOCI: 99th Percentile= 0.00-0.045 ng/ml Risk Stratification: <= 0.10 ng/ml Decreased Risk for Adverse Clinical Events. 0.10-1.50 ng/ml Increased Risk for Adverse Clinical Events. Evaluation of additional criterion and/or repeat testing in 2-6 hours is suggested to rule out myocardial damage. >= 1.50 ng/ml Indicative of Myocardial Injury. Lab Order: PROTHROMBIN TIME PROFILE\\E\\INR; [facility] 05/11/16 20:52 Test: PROTHROMBIN TIME; Value: 20.1; Range: 12.3-14.5; Abnormal: Above high normal; Units: SECONDS; Status: F Test: INR; Value: 1.70; Status: F Test Note: ; THERAPUTIC HUMAN INR VALUES INDICATIONS NORMAL RANGES PROPHYLAXIS/TREATMENT OF: VENOUS THROMBOSIS 2.0-3.0 PULMONARY EMBOLISM 2.0-3.0 PREVENTION OF SYSTEMIC EMBOLISM FROM: TISSUE HEART VALVES 2.0-3.0 ACUTE MYOCARDIAL INFARCTION 2.0-3.0 VALVULAR HEART DISEASE 2.0-3.0 ATRIAL FIBRILLATION 2.0-3.0 MECHANICAL VALVES(HIGH RISK) 2.5-3.5 RECURRENT MYOCARDIAL INFARCTION 2.5-3.5 Lab Order: URIC ACID; SPEC'M 05/11/16 20:52 Test: URIC ACID; Value: 4.0; Range: 3.5-7.2; Units: MG/DL; Status: F Outcome: 05/11 23:26 Decision to Hospitalize by Provider. mm11 05/12 01:52 Discharge Assessment: Patient awake, alert and oriented x 3. No cognitive and/or ko2 functional deficits noted. Patient verbalized understanding of disposition instructions. patient administered narcotics -. The following High Risk Discharge criteria are identified: None. Admitted to PCU accompanied by nurse, accompanied by tech, via stretcher, on monitor, with chart. Condition: stable. Property :Personal belongings accompany Pt. 01:53 No special radiology studies were completed. ko2 01:53 Admission hand-off: Report Faxed Fax receipt verified by Daphney Whitney, JERRICA PCU. ko2 03:23 Patient left the ED. ko2 Signatures: Jeanine Jurado, Reg Reg gb Jefry Osorio, Medical Biller/Coder Unit ml3 Norman Sainz, DO DO mm11 Kusum Sharif,RN RN ld5 Nicky Valdez RN RN ko2 Daniall, Christina Patricio, CALIBRATION TECHNICIAN CALIBRATION TECHNICIAN ls3 Kerri Figueroa, Reg Reg ks16 Corrections: (The following items were deleted from the chart) 05/11 21:16 21:12 Pulse 94bpm; Monitor; Pulse Ox 97%; ld5 ld5 Chart Complete MTDD
[2016-05-14] MEDS: PIPERACILLIN/TAZOBACTAM SOD 2.25 GM in D5W MINI-BAG PLUS 50 ML IV SCH ×2 (05:58→18:19)
[2016-05-14 06:01] LABS: MEAN CORPUSCULAR HEMOGLOBIN 33.1 pg (27.0-33.0); MEAN CORPUSCULAR HGB CONC 32.5 g/dl (32.0-36.5); MEAN CORPUSCULAR VOLUME 101.7 fl (80.0-96.0); RED CELL DISTRIBUTION WIDTH 14.1 % (11.5-14.5); WHITE BLOOD COUNT 14.4 K/mm3 (4.0-10.0)
[2016-05-14 06:09] LABS: INR 1.88
[2016-05-14] MEDS: ASPIRIN 81 MG CHEW TABLET PO SCH (06:17)
[2016-05-14] MEDS: GABAPENTIN 100 MG CAP PO SCH ×2 (06:17→21:45)
[2016-05-14 06:31] LABS: ALBUMIN 2.5 GM/DL (3.2-5.2); ALBUMIN/GLOBULIN RATIO 0.57 (1.00-1.93); BILIRUBIN,TOTAL 0.7 MG/DL (0.2-1.0); CALCIUM LEVEL 8.3 MG/DL (8.8-10.2); CREATININE FOR GFR 11.7 MG/DL (0.70-1.30); GLOMERULAR FILTRATION RATE 5.6 (>49); POTASSIUM SERUM 4.4 MEQ/L (3.5-5.1); TOTAL PROTEIN 6.9 GM/DL (6.4-8.2)
[2016-05-14] MEDS: ADVAIR DISKUS 250/50 INH PWD INH SCH ×2 (07:10→19:30)
[2016-05-14] MEDS: ATORVASTATIN 20 MG TAB PO SCH (07:41)
[2016-05-14] MEDS: TAMSULOSIN 0.4 MG CAP PO SCH (07:42)
[2016-05-14] MEDS: METOPROLOL TART 50 MG TAB PO SCH ×2 (07:47→21:45)
[2016-05-14] MEDS: CYANOCOBALAMIN 500 MCG TAB PO SCH (07:47)
[2016-05-14] MEDS: (RENVELA) SEVELAMER **CARBONate** 800 MG TAB PO SCH ×3 (07:48→18:17)
[2016-05-14 08:00] VITALS: BP 114/62
[2016-05-14] MEDS: CALCIUM ACETATE 667 MG GELCAP PO SCH ×3 (08:00→18:18)
[2016-05-14] MEDS ORDERED: GASTROGRAFIN SOLUTION 30ML PO ONE (08:15)
--- NOTE | 2016-05-14 08:35 | IPNPDOC ---
Assessment/Plan Date Seen The patient was seen on 05/14/16. Problems Problems: (1) SOB (shortness of breath) Status: Acute Response to Treatment: Stable Problem Text: Pt not complaining of SOB or cough at bedside today Pt on O2 therapy-titrate above 90% Rocephin abx continued- may be 2/2 URI (2) Pleuritic chest pain Status: Acute Problem Text: pt does say that he has some mild left epigastric dull pain when he coughs, also complains of diffuse achy abdomen but is passing gas, last BM was three days ago Will order CT abdomen/pelvis to r/o obstruction as pt says he is distended in his abdomen, also r/o abdominal wall hematoma likely 2/2 chronic cough and non-cardiac in nature, EKG has been without ischemic changes First set of troponins in ED was slightly elevated, second and third set normal Chest CT showed bibasilar atelectasis & possible subtle early infiltrate continue to monitor (3) ESRD (end stage renal disease) Status: Chronic Response to Treatment: Stable Problem Text: Will have hemodialysis treatment today PT had hemodialysis treatment two days ago Nephrology consulted-appreciate their input (4) Atrial fibrillation Status: Chronic Response to Treatment: Stable Problem Text: Rate is currently controlled Continue pts home Coumadin 7 mg and Metoprolol 50 mg Continue to monitor (5) HTN (hypertension) Status: Chronic Response to Treatment: Stable Problem Text: BP stable PT on home Metoprolol 50 mg (6) Foot pain Status: Chronic Response to Treatment: Stable Problem Text: Foot x-ray negative for acute fractures or dislocation. less likely 2/2 gout- uric acid normal Pt has history of traumatic event to left foot- dropped a door on it- foot x- ray on admission negative for fracture or break No swelling over dorsum of foot is evidenced on bedside exam today. PT/OT consulted (7) Gout Status: Chronic Response to Treatment: Stable Problem Text: Continue pts home Uloric mediation (8) BPH (benign prostatic hyperplasia) Status: Acute Problem Text: continue home Flomax Plan / VTE VTE Prophylaxis Ordered?: Yes Subjective Review of Systems CC/HPI The patient is a 70-year-old male admitted with a reason for visit of Pleuritic Chest Pain. General: Denies: Chills, Fatigue, Night Sweats, ROS Unobtainable Constitutional: Reports: Fever, Malaise, Denies: Chills, Night Sweats, Weakness Eyes: Denies: Conjunctivae inflammation, Eyelid inflammation, Pain, Vision change ENT: Denies: Head Aches Skin: Denies: Bruising, Itching, Jaundice, Lesions, Rash Pulmonary: Reports: Cough, Pleuritic Chest Pain, Denies: Dyspnea, Other Symptoms Cardiovascular: Reports: Chest Pain, Denies: Edema, Lt Headedness, Orthopnea, Palpitations, Paroxysmal Noc. Dyspnea Gastrointestinal: Reports: Abdominal Pain, Denies: Diarrhea, Nausea, Vomiting Genitourinary: Denies: Dysuria Neurological: Denies: Numbness Psych: Reports: Mood Normal Objective Physical Examination General Exam: Positive: Alert, Cooperative, Mild Distress (some abdominal achy pain diffuse), No Acute Distress Eye Exam: Positive: Conjunctiva & lids normal, EOMI, PERRLA, Negative: Ptosis, Sclera icteric ENT Exam: Positive: Atraumatic, Mucous membr. moist/pink, Nares Patent, Pharynx Normal, Tongue Midline, Negative: Pharyngeal Edema Neck Exam: Positive: Supple Chest Exam: Positive: Clear to auscultation, Normal air movement, Negative: Rales, Rhonchi, Wheezing Heart Exam: Positive: Normal S1, Normal S2, Rate Normal Abdomen Exam: Positive: Normal bowel sounds, Soft, Tenderness (mild achy diffuse abdomen), Negative: Hepatospenomegaly Extremity Exam: Negative: Clubbing, Cyanosis, Edema Vital Signs/I&O Vital Signs Date Time Temp Pulse Resp B/P Pulse Ox O2 Delivery O2 Flow Rate FiO2 05/14/16 07:47 100 114/62 05/14/16 04:00 99.5 22 97 Room Air I&O- Last 24 Hours up to 6 AM 05/14/16 06:00 Intake Total 1850 ml Output Total 0 ml Balance 1850 ml Laboratory Data Labs 24H Laboratory Tests 2 05/13/16 11:44: Bedside Glucose (Misc Panel) 170H 05/13/16 17:23: Bedside Glucose (Misc Panel) 230H 05/13/16 21:21: Bedside Glucose (Misc Panel) 187H 05/14/16 00:28: Prothromb Time International Ratio 1.57, Prothrombin Time 18.9H 05/14/16 05:12: Blood Urea Nitrogen 77#H, Creatinine 11.70H, Sodium Level 133L, Potassium Level 4.4, Chloride Level 94L, Carbon Dioxide Level 26, Calcium Level 8.3L, Aspartate Amino Transf (AST/SGOT) 9L, Alanine Aminotransferase (ALT/SGPT) 18, Alkaline Phosphatase 73, Total Bilirubin 0.7, Total Protein 6.9, Albumin 2.5L, Albumin/ Globulin Ratio 0.57L, Anion Gap 13, Glomerular Filtration Rate 5.6L, Prothromb Time International Ratio 1.88, Prothrombin Time 21.7H CBC/BMP Laboratory Tests 05/14/16 05:12 Calcium Level 8.3 L, Aspartate Amino Transf (AST/SGOT) 9 L, Alanine Aminotransferase (ALT/SGPT) 18, Alkaline Phosphatase 73, Total Bilirubin 0.7, Total Protein 6.9, Albumin 2.5 L, Red Blood Count 2.84 L, Mean Corpuscular Volume 101.7 H, Mean Corpuscular Hemoglobin 33.1 H, Mean Corpuscular Hemoglobin Concent 32.5, Red Cell Distribution Width 14.1 Microbiology Microbiology 05/11/16 Blood Culture - Final, Complete Streptococcus Pneumoniae Strep Pneumoniae Antigen 05/11/16 Blood Culture - Final, Complete Streptococcus Pneumoniae Strep Pneumoniae Antigen 05/12/16 Gram Stain - Final, Complete 05/12/16 Sputum Culture - Final, Complete GME ATTESTATION GME ATTESTATION My preceptor for this patient encounter was physically present in the building during the encounter and was fully available. As needed, all aspects of the patient interview, examination, medical decision making process, and medical care plan development were reviewed and approved by the preceptor. Preceptor is aware and concurs with the plan as stated in the body of this note and will attest to such by his/her cosignature. LYNNE TINOCO-1 May 14, 2016 08:35
[2016-05-14] MEDS ORDERED: GASTROGRAFIN SOLUTION 30ML (Q9963) PO ONE (08:45)
[2016-05-14] MEDS ORDERED: PREVNAR 13 VACCINE SYRINGE (CPT CODE:90670) IM ONE (09:00)
[2016-05-14] MEDS: SENOKOT S TAB PO SCH ×2 (09:00→18:18)
[2016-05-14] MEDS: HumaLOG INSULIN (NovoLOG) PER UNIT SC SCH ×4 (09:30→21:35)
[2016-05-14 10:52] LABS: VANCOMYCIN RANDOM 17.1 UG/ML
[2016-05-14] MEDS ORDERED: LIDOCAINE 1% SDV 5 ML VIAL SQ ONE (12:30)
[2016-05-14] MEDS ORDERED: HEPARIN 1,000 UNITS/ML 10ML VIAL (FOR RADIOLOGY& DIALYSIS ONLY) IV ONE (12:30)
--- NOTE | 2016-05-14 14:37 | REP ---
CT ABDOMEN AND PELVIS, ORAL CONTRAST ONLY, 05/14/2016: INDICATION: No bowel movement since Thursday. COMPARISON: CT abdomen/pelvis, 04/28/2012 performed without contrast. TECHNIQUE: After drinking two cups of oral contrast, each containing 10 mL Gastrografin in 290 mL water, 3 mm spiral sections were obtained of the abdomen and pelvis. IV contrast was not administered. FINDINGS: There is small to moderate dependent atelectasis in lung bases bilaterally and likely trace bibasilar pleural effusions. Liver is mildly enlarged, 18.5 cm craniocaudal dimension. There is enlarged left lobe of liver. There are no focal intrahepatic lesions. The spleen, pancreas are normal. A few stable esther hepatis lymph nodes, largest 10 mm in size and not significantly changed. There are no lytic or blastic lesions of bone. Gallbladder is contracted. The adrenal glands are normal. Kidneys are without hydronephrosis or obstructing ureteral calculi bilaterally. Small amount of perinephric stranding bilaterally, not significantly changed, most compatible with scarring. Exophytic 1.7 cm cyst is noted off the lateral mid pole right kidney. There is an 11 mm hypodense focus within the lateral mid pole right kidney, consistent with small cyst. A 7 mm cyst is identified in the lower pole left kidney. Stomach is moderately distended with oral contrast. Small bowel is partially opacified without evidence of obstruction. The terminal ileum and appendix are normal. Atherosclerotic changes are noted in the abdominal aorta, which is ectatic, yet without aneurysm. There are no pathologically enlarged retroperitoneal nodes. Bladder is contracted with diffusely thickened wall. The prostate is mildly enlarged with mild extrinsic compression upon the inferior bladder. There is moderate diffuse retained colonic stool. There is no free air or ascites. There is a 2 cm umbilical hernia containing omental fat only. IMPRESSION: 1. Bibasilar atelectatic changes, mild to moderate.2. Abdominal distension, yet no evidence of bowel obstruction. There is moderate diffuse retained colonic stool/constipation.3. Diffuse mural thickening seen within the bladder, may be contributed to by contracted state. Differential diagnosis can include cystitis and scarring.4. Mild prostatic hypertrophy with extrinsic impression upon the inferior bladder.5. Bilateral renal cortical cysts.6. Few esther hepatis nodes, largest 10 mm short-axis diameter, not significantly changed. Signed by Nicole Golden MD 05/15/2016 11:22 P
[2016-05-14 15:50] VITALS: BP 128/64
--- NOTE | 2016-05-14 18:13 | IPN ---
DATE: 05/13/2016 SUBJECTIVE: The patient was seen and examined at the bedside today in the morning. He still complains of left foot pain. He got the hemodialysis done yesterday. He tolerated the hemodialysis procedure well. He continues to have a low-grade temperatures. REVIEW OF SYSTEMS: The patient denies any chills or rigors at this time. He denies any chest pain. He still reports some shortness of breath and cough. He denies any pain abdomen, constipation, or diarrhea. The patient still reports left foot pain at this time. Rest of review of systems is negative. OBJECTIVE: VITAL SIGNS: Temperature is 98.1 degrees Fahrenheit, blood pressure is 137/77, pulse is 100, respiratory rate of 18, saturating 96% on room air. INTAKE AND OUTPUT: The patient got hemodialysis done yesterday. Five liters of ultrafiltration as done. Weight in the bed scale is 126.3 kg. PHYSICAL EXAMINATION: GENERAL: The patient is awake, alert, and oriented times three, lying in bed in no apparent distress. HEAD/NECK: The patient has right eye blindness. Mucous membranes are moist. Neck is supple. There is no jugular venous distention (JVD). CARDIOVASCULAR: S1, S2. Tachycardia, irregular heart rate. RESPIRATORY: Decreased breath sounds at the bases and coarse crepitations at the bases on deep inspiration. ABDOMEN: Soft. Positive bowel sounds. Nontender. No organomegaly. EXTREMITIES: No clubbing or cyanosis. The patient has left foot tenderness. CENTRAL NERVOUS SYSTEM (FRAME COVERER): No focal neurological deficit. Power is 5/5 in all extremities. ARTERIOVENOUS (AV) ACCESS: The patient has a right forearm AV fistula with positive thrill and bruit. PSYCHIATRIC: Normal mood and affect. LABORATORY DATA: CBC showed a WBC 17,000, hemoglobin 10.2, platelets 186. BMP shows sodium 136, potassium 4.4, chloride 97, bicarbonate 26, BUN 49, creatinine 8.93. Calcium is 8.9. Albumin 2.8. MICROBIOLOGY: Blood cultures times two are growing Streptococcus pneumoniae. CURRENT MEDICATIONS: Current medications are all reviewed by me. The patient continues to be on intravenous (IV) Zosyn 2.25 grams every 12 hours and IV vancomycin. ASSESSMENT: A 70-year-old male with past medical history of end-stage renal disease on hemodialysis, history of insulin-dependent diabetes, eczema, gout, admitted this time with pleuritic chest pain. Later on, he was found to have Streptococcus pneumoniae bacteremia. Nephrology service is following the patient for management of end-stage renal disease. PLAN: 1. End-stage renal disease: The patient's regular dialysis days are Thursday, Thursday, Thursday. He was dialyzed according to his regular schedule yesterday. Next hemodialysis session will be tomorrow. 2. Streptococcus pneumoniae bacteremia: The patient has infiltrates on the CT scan of the chest. He has pneumonia secondary to Streptococcus pneumoniae. Continue current dose of antibiotics. Once the sensitivity results come back, we can taper down the antibiotic. 3. Left foot pain: The patient reports that he dropped a microwave door on his foot, but his left foot is still hurting. It is very tender. He has a history of gout as well. I am going to empirically give him one dose of colchicine 0.6 mg by mouth, which will be good enough for him because of his renal disease. 4. Hypertension: Blood pressure is acceptable at this time. Continue current dose of metoprolol. 5. History of atrial fibrillation: The patient's international normalized ratio (INR) is subtherapeutic at this time. I am going to increase the Coumadin dose at 8 mg daily.
[2016-05-14] MEDS: WARFARIN SOD 1 MG TAB PO SCH (18:18)
[2016-05-14] MEDS: FEBUXOSTAT 40 MG TABLET (ULORIC) PO SCH (18:18)
[2016-05-14] MEDS: MIRALAX *UNIT DOSE* 17GM PACKET PO SCH (18:18)
[2016-05-14] MEDS: WARFARIN SOD 3 MG TAB PO SCH (18:18)
[2016-05-14] MEDS: CHECK TO SEE IF PATIENT IS RECEIVING DIALYSIS TODAY AND REFER TO THE VANCOMYCIN ORDER XX SCH (18:25)
[2016-05-14] MEDS: BISACODYL 10 MG SUPP PR SCH (18:40)
[2016-05-14] MEDS: VANCOMYCIN HCL 1,000 MG, VIAL MATE ADAPTER 1 EACH in D5W 250 ML IV SCH (19:57)
[2016-05-14] MEDS ORDERED: DARBEPOETIN 300 MCG/0.6 ML *DIALYSIS* SYRINGE (J0882) IV SCH (20:30)
[2016-05-14] MEDS: NEPHRO-VIT TAB (NEPHROCAPS) PO SCH (21:35)
[2016-05-14] MEDS: LEVEMIR (INSULIN DETEMIR) 1 UNITS/0.01ML SC SCH (21:45)
[2016-05-14 22:00] VITALS: BP 134/83
[2016-05-14] MEDS: MORPHINE 2 MG/ML 1ML SYRINGE IV PRN (22:38)
[2016-05-15] MEDS: IPRATROPIUM 0.5MG/ALBUTEROL 2.5MG INH SOL UD 3ML (DUONEB)(J7620) NEB SCH ×4 (01:19→19:23)
[2016-05-15] MEDS: MORPHINE 2 MG/ML 1ML SYRINGE IV PRN ×2 (05:12→10:43)
[2016-05-15 06:00] VITALS: BP 127/66
[2016-05-15 06:07] LABS: MEAN CORPUSCULAR HEMOGLOBIN 32.8 pg (27.0-33.0); MEAN CORPUSCULAR HGB CONC 31.3 g/dl (32.0-36.5); MEAN CORPUSCULAR VOLUME 104.6 fl (80.0-96.0); RED CELL DISTRIBUTION WIDTH 13.1 % (11.5-14.5); WHITE BLOOD COUNT 11.1 K/mm3 (4.0-10.0)
[2016-05-15 06:17] LABS: INR 1.91
[2016-05-15 06:18] LABS: ALBUMIN 2.5 GM/DL (3.2-5.2); ALBUMIN/GLOBULIN RATIO 0.56 (1.00-1.93); BILIRUBIN,TOTAL 0.7 MG/DL (0.2-1.0); CALCIUM LEVEL 8.9 MG/DL (8.8-10.2); CREATININE FOR GFR 7.57 MG/DL (0.70-1.30); GLOMERULAR FILTRATION RATE 9.3 (>49)
[2016-05-15] MEDS: ADVAIR DISKUS 250/50 INH PWD INH SCH ×2 (07:46→19:22)
[2016-05-15] MEDS: MIRALAX *UNIT DOSE* 17GM PACKET PO SCH (08:35)
[2016-05-15] MEDS: HumaLOG INSULIN (NovoLOG) PER UNIT SC SCH ×4 (08:36→21:32)
[2016-05-15] MEDS: (RENVELA) SEVELAMER **CARBONate** 800 MG TAB PO SCH ×3 (08:36→17:55)
[2016-05-15] MEDS: ASPIRIN 81 MG CHEW TABLET PO SCH (08:36)
[2016-05-15] MEDS: FEBUXOSTAT 40 MG TABLET (ULORIC) PO SCH (08:36)
[2016-05-15] MEDS: GABAPENTIN 100 MG CAP PO SCH ×3 (08:36→21:43)
[2016-05-15] MEDS: SENOKOT S TAB PO SCH ×3 (08:36→21:42)
[2016-05-15] MEDS: ATORVASTATIN 20 MG TAB PO SCH (08:36)
[2016-05-15] MEDS: TAMSULOSIN 0.4 MG CAP PO SCH (08:37)
[2016-05-15] MEDS: BISACODYL 10 MG SUPP PR SCH (08:37)
[2016-05-15] MEDS: METOPROLOL TART 50 MG TAB PO SCH ×3 (08:37→21:59)
[2016-05-15] MEDS: NEPHRO-VIT TAB (NEPHROCAPS) PO SCH (08:37)
[2016-05-15] MEDS: CYANOCOBALAMIN 500 MCG TAB PO SCH (08:37)
[2016-05-15] MEDS: CALCIUM ACETATE 667 MG GELCAP PO SCH ×3 (08:37→17:56)
[2016-05-15] MEDS: LACTULOSE 20 GM/30 ML SYRUP UD PO SCH (10:42)
--- NOTE | 2016-05-15 10:46 | IPNPDOC ---
Assessment/Plan Date Seen The patient was seen on 05/15/16. Problems Problems: (1) SOB (shortness of breath) Status: Acute Response to Treatment: Stable Problem Text: Pt not complaining of SOB or cough at bedside today Pt on O2 therapy-titrate above 90% Rocephin abx continued- may be 2/2 URI (2) Pleuritic chest pain Status: Acute Problem Text: pt does say that he has some mild left epigastric dull pain when he coughs, also complains of diffuse achy abdomen but is passing gas, last BM was three days ago CT abdomen/pelvis results back- r/o obstruction and abdominal wall hematoma, showed abdominal distention and moderate diffuse retained stool constipation Diffuse mural thickening seen within the bladder, may be secondary to cystitis and scarring. Also mild prostatic hypertrophy, bilateral renal cortical cyst, Some esther hepatis nodes with largest being 10 mm not significantly changed. likely 2/2 chronic cough and non-cardiac in nature, EKG has been without ischemic changes First set of troponins in ED was slightly elevated, second and third set normal Chest CT showed bibasilar atelectasis & possible subtle early infiltrate continue to monitor (3) ESRD (end stage renal disease) Status: Chronic Response to Treatment: Stable Problem Text: Had hemodialysis treatment one day ago Nephrology consulted-appreciate their input (4) Atrial fibrillation Status: Chronic Response to Treatment: Stable Problem Text: Rate is currently controlled Continue pts home Coumadin 7 mg and Metoprolol 50 mg Continue to monitor (5) HTN (hypertension) Status: Chronic Response to Treatment: Stable Problem Text: BP stable PT on home Metoprolol 50 mg (6) Foot pain Status: Chronic Response to Treatment: Stable Problem Text: Foot x-ray negative for acute fractures or dislocation. less likely 2/2 gout- uric acid normal Pt has history of traumatic event to left foot- dropped a door on it- foot x- ray on admission negative for fracture or break No swelling over dorsum of foot is evidenced on bedside exam today. PT/OT consulted (7) Gout Status: Chronic Response to Treatment: Stable Problem Text: Continue pts home Uloric mediation (8) BPH (benign prostatic hyperplasia) Status: Acute Problem Text: continue home Flomax Plan / VTE VTE Prophylaxis Ordered?: Yes Subjective Review of Systems CC/HPI The patient is a 70-year-old male admitted with a reason for visit of Pleuritic Chest Pain. General: Denies: Chills, Fatigue, Malaise, Night Sweats Constitutional: Denies: Chills, Fever, Malaise, Night Sweats Eyes: Denies: Conjunctivae inflammation, Eyelid inflammation, Pain, Redness, Vision change ENT: Denies: Head Aches Skin: Denies: Bruising, Jaundice, Lesions, Rash Pulmonary: Denies: Cough, Dyspnea, Pleuritic Chest Pain Cardiovascular: Denies: Chest Pain, Edema, Lt Headedness, Orthopnea, Palpitations Gastrointestinal: Reports: Abdominal Pain (minor LUQ pain), Denies: Nausea, Vomiting Genitourinary: Denies: Dysuria, Frequency Hematologic: Denies: Bruising Musculoskeletal: Reports: Other Symptoms (minor chronic left ankle pain, medial ) Neurological: Denies: Weakness Psych: Reports: Mood Normal Objective Physical Examination General Exam: Positive: Alert, Cooperative, No Acute Distress, Negative: Mild Distress (some abdominal achy pain diffuse) Eye Exam: Positive: Conjunctiva & lids normal, EOMI, PERRLA, Negative: Ptosis, Sclera icteric ENT Exam: Positive: Atraumatic, Mucous membr. moist/pink, Nares Patent, Pharynx Normal, Tongue Midline, Negative: Pharyngeal Edema Neck Exam: Positive: Supple Chest Exam: Positive: Clear to auscultation, Normal air movement, Negative: Rales, Rhonchi, Wheezing Heart Exam: Positive: Normal S1, Normal S2, Rate Normal Abdomen Exam: Positive: Normal bowel sounds, Soft, Tenderness (mild tender to palpitation LUQ), Negative: Hepatospenomegaly Extremity Exam: Positive: Other (minor left ankle pain, medial aspect ankle, chronic. no swelling or erythema apprecaited, good ROM. no lesions.), Negative: Clubbing, Cyanosis, Edema Vital Signs/I&O Vital Signs Date Time Temp Pulse Resp B/P Pulse Ox O2 Delivery O2 Flow Rate FiO2 05/15/16 08:37 102 137/68 05/15/16 06:00 99.7 20 98 Room Air I&O- Last 24 Hours up to 6 AM 05/15/16 06:00 Intake Total 1940 ml Output Total 4000 ml Balance -2060 ml Laboratory Data Labs 24H Laboratory Tests 2 05/14/16 17:21: Bedside Glucose (Misc Panel) 233H 05/14/16 21:14: Bedside Glucose (Misc Panel) 246H 05/15/16 05:40: Blood Urea Nitrogen 45H, Creatinine 7.57H, Sodium Level 138, Potassium Level 5.0 , Chloride Level 101, Carbon Dioxide Level 28, Calcium Level 8.9, Aspartate Amino Transf (AST/SGOT) 17, Alanine Aminotransferase (ALT/SGPT) 23, Alkaline Phosphatase 84, Total Bilirubin 0.7, Total Protein 7.0, Albumin 2.5L, Albumin/ Globulin Ratio 0.56L, Anion Gap 9, Glomerular Filtration Rate 9.3L, Prothromb Time International Ratio 1.91, Prothrombin Time 22.0H CBC/BMP Laboratory Tests 05/15/16 05:40 Calcium Level 8.9, Aspartate Amino Transf (AST/SGOT) 17, Alanine Aminotransferase (ALT/SGPT) 23, Alkaline Phosphatase 84, Total Bilirubin 0.7, Total Protein 7.0, Albumin 2.5 L, Red Blood Count 2.96 L, Mean Corpuscular Volume 104.6 H, Mean Corpuscular Hemoglobin 32.8, Mean Corpuscular Hemoglobin Concent 31.3 L, Red Cell Distribution Width 13.1 FSBS Laboratory Tests Test 05/14/16 17:21 05/14/16 21:14 Range/Units Bedside Glucose (Misc Panel) 233 246 80-115 MG/DL Microbiology Microbiology 05/11/16 Blood Culture - Final, Complete Streptococcus Pneumoniae Strep Pneumoniae Antigen 05/11/16 Blood Culture - Final, Complete Streptococcus Pneumoniae Strep Pneumoniae Antigen 05/12/16 Gram Stain - Final, Complete 05/12/16 Sputum Culture - Final, Complete GME ATTESTATION GME ATTESTATION My preceptor for this patient encounter was physically present in the building during the encounter and was fully available. As needed, all aspects of the patient interview, examination, medical decision making process, and medical care plan development were reviewed and approved by the preceptor. Preceptor is aware and concurs with the plan as stated in the body of this note and will attest to such by his/her cosignature. LYNNE TINOCO DO May 15, 2016 10:46
--- NOTE | 2016-05-15 13:42 | IPNPDOC ---
Assessment/Plan Date Seen The patient was seen on 05/15/16. Problems Problems: (1) SOB (shortness of breath) Status: Acute Response to Treatment: Stable Problem Text: Pt. not complaining of SOB or cough at bedside today Pt. on O2 therapy-titrate above 90% Rocephin abx. continued- may be 2/2 URI (2) Pleuritic chest pain Status: Acute Problem Text: Pt. continues to complain of some mild left epigastric/LUQ dull pain, especially when he coughs, also complains of diffuse achy abdomen but is passing gas, last BM overnight x3. CT abdomen/pelvis results back- r/o obstruction and abdominal wall hematoma, showed abdominal distention and moderate diffuse retained stool constipation Diffuse mural thickening seen within the bladder, may be secondary to cystitis and scarring. Also mild prostatic hypertrophy, bilateral renal cortical cyst, some esther hepatis nodes with largest being 10 mm not significantly changed. CP is likely 2/2 chronic cough and non-cardiac in nature, EKG has been without ischemic changes First set of Troponins in ED upon presentation was slightly elevated, second and third set normal Chest CT showed bibasilar atelectasis & possible subtle early infiltrate Continue to monitor. (3) ESRD (end stage renal disease) Status: Chronic Response to Treatment: Stable Problem Text: Had hemodialysis treatment one day ago Nephrology consulted-appreciate their input (4) Pneumonia Status: Acute Response to Treatment: Stable Problem Text: Chest CT from one day ago showed possible early infiltrate pt has also had positive blood cx for strep. pneumo., WBC has improved but still at 11.1 today IV vancomycin abx therapy has been initiated (5) Atrial fibrillation Status: Chronic Response to Treatment: Stable Problem Text: Rate is currently controlled Continue pts home Coumadin 7 mg and Metoprolol 50 mg Continue to monitor (6) HTN (hypertension) Status: Chronic Response to Treatment: Stable Problem Text: BP stable PT on home Metoprolol 50 mg (7) Foot pain Status: Chronic Response to Treatment: Stable Problem Text: Patient has not been cleared by PT to be d/c Foot x-ray negative for acute fractures or dislocation. less likely 2/2 gout- uric acid normal Pt has history of traumatic event to left foot- dropped a door on it- foot x- ray on admission negative for fracture or break No swelling over dorsum of foot is evidenced on bedside exam today. (8) Gout Status: Chronic Response to Treatment: Stable Problem Text: Continue pts home Uloric mediation (9) BPH (benign prostatic hyperplasia) Status: Acute Problem Text: continue home Flomax Plan / VTE VTE Prophylaxis Ordered?: Yes Subjective Review of Systems CC/HPI The patient is a 70-year-old male admitted with a reason for visit of Pleuritic Chest Pain. General: Denies: Chills, Fatigue, Night Sweats Constitutional: Denies: Chills, Fever, Malaise, Night Sweats, Weakness Eyes: Denies: Conjunctivae inflammation, Eyelid inflammation, Pain, Redness, Vision change ENT: Denies: Head Aches Skin: Denies: Bruising, Itching, Jaundice, Lesions, Rash Pulmonary: Denies: Cough, Dyspnea, Pleuritic Chest Pain Cardiovascular: Denies: Chest Pain, Edema, Lt Headedness, Orthopnea, Palpitations, Paroxysmal Noc. Dyspnea Gastrointestinal: Reports: Abdominal Pain (LUQ pain to palpitation ), Denies: Nausea, Vomiting Genitourinary: Denies: Dysuria Musculoskeletal: Reports: Other Symptoms (left ankle pain medial aspect, chronic in nature) Neurological: Denies: Change in speech, Incoordination, Numbness, Weakness Psych: Reports: Mood Normal Objective Physical Examination General Exam: Positive: Alert, Cooperative, No Acute Distress Eye Exam: Positive: Conjunctiva & lids normal, EOMI, PERRLA ENT Exam: Positive: Atraumatic, Mucous membr. moist/pink, Nares Patent, Pharynx Normal, Tongue Midline Neck Exam: Positive: Supple Chest Exam: Positive: Clear to auscultation, Normal air movement Heart Exam: Positive: Normal S1, Normal S2, Rate Normal Abdomen Exam: Positive: Normal bowel sounds, Other (pain to palpitation in LUQ) , Soft, Tenderness Extremity Exam: Positive: Other Psych Exam: Positive: Mental status NL Vital Signs/I&O Vital Signs Date Time Temp Pulse Resp B/P Pulse Ox O2 Delivery O2 Flow Rate FiO2 05/15/16 11:00 18 Room Air 05/15/16 08:37 102 137/68 05/15/16 06:00 99.7 98 I&O- Last 24 Hours up to 6 AM 05/15/16 06:00 Intake Total 1940 ml Output Total 4000 ml Balance -2060 ml Laboratory Data Labs 24H Laboratory Tests 2 05/14/16 17:21: Bedside Glucose (Misc Panel) 233H 05/14/16 21:14: Bedside Glucose (Misc Panel) 246H 05/15/16 05:40: Blood Urea Nitrogen 45H, Creatinine 7.57H, Sodium Level 138, Potassium Level 5.0 , Chloride Level 101, Carbon Dioxide Level 28, Calcium Level 8.9, Aspartate Amino Transf (AST/SGOT) 17, Alanine Aminotransferase (ALT/SGPT) 23, Alkaline Phosphatase 84, Total Bilirubin 0.7, Total Protein 7.0, Albumin 2.5L, Albumin/ Globulin Ratio 0.56L, Anion Gap 9, Glomerular Filtration Rate 9.3L, Prothromb Time International Ratio 1.91, Prothrombin Time 22.0H 05/15/16 11:33: Bedside Glucose (Misc Panel) 154H CBC/BMP Laboratory Tests 05/15/16 05:40 Calcium Level 8.9, Aspartate Amino Transf (AST/SGOT) 17, Alanine Aminotransferase (ALT/SGPT) 23, Alkaline Phosphatase 84, Total Bilirubin 0.7, Total Protein 7.0, Albumin 2.5 L, Red Blood Count 2.96 L, Mean Corpuscular Volume 104.6 H, Mean Corpuscular Hemoglobin 32.8, Mean Corpuscular Hemoglobin Concent 31.3 L, Red Cell Distribution Width 13.1 FSBS Laboratory Tests Test 05/14/16 17:21 05/14/16 21:14 05/15/16 11:33 Range/Units Bedside Glucose (Misc Panel) 233 246 154 80-115 MG/DL Microbiology Microbiology 05/11/16 Blood Culture - Final, Complete Streptococcus Pneumoniae Strep Pneumoniae Antigen 05/11/16 Blood Culture - Final, Complete Streptococcus Pneumoniae Strep Pneumoniae Antigen 05/12/16 Gram Stain - Final, Complete 05/12/16 Sputum Culture - Final, Complete GME ATTESTATION GME ATTESTATION My preceptor for this patient encounter was physically present in the building during the encounter and was fully available. As needed, all aspects of the patient interview, examination, medical decision making process, and medical care plan development were reviewed and approved by the preceptor. Preceptor is aware and concurs with the plan as stated in the body of this note and will attest to such by his/her cosignature. LYNNE TINOCO DO May 15, 2016 13:42
[2016-05-15 14:00] VITALS: BP 135/90
--- NOTE | 2016-05-15 14:52 | IPN ---
DATE: 05/14/2016 SUBJECTIVE: Patient was seen and examined at the bedside during hemodialysis procedure today in the morning. He was tolerating the hemodialysis procedure well. He reports that he is feeling better, although he is still complaining of some shortness of breath. His foot pain is slightly better as well. REVIEW OF SYSTEMS: Patient denies any fever, chills, rigors. He denies any chest pain. He does report some shortness of breath and cough. He denies any pain in abdomen, constipation, or diarrhea. He does report some pain in the left foot, but it is better than yesterday. Rest of review of systems is negative. OBJECTIVE: VITAL SIGNS: Temperature 98 degrees Fahrenheit, blood pressure 114/62, pulse 100, respiratory rate 17, saturating at 95% on room air. INTAKE/OUTPUT: There is no urine output recorded. Weight in the bed scale is 128 kg. PHYSICAL EXAMINATION: GENERAL: Patient is awake, alert, oriented times three, laying in bed, getting hemodialysis done. HEAD and NECK: Extraocular muscles intact. Patient has right eye blindness. Mucous membranes are moist. Neck is supple. There is no jugular venous distention (JVD). CARDIOVASCULAR: S1, S2, tachycardia, irregular hear rate. RESPIRATORY: Decreased breath sounds at the bases and some crepitations at the bases on deep inspiration. ABDOMEN: Soft, positive bowel sounds, obese, nontender. No organomegaly. EXTREMITIES: No clubbing or cyanosis. Patient has slight tenderness in the left foot which is better than yesterday. CENTRAL NERVOUS SYSTEM (CUTTER MACHINE): No focal neurological deficit. Power is 5/5 in all extremities. ARTERIOVENOUS (AV) ACCESS: Patient has a right forearm AV fistula which is being used for dialysis. LABORATORY REVIEW: CBC showed WBC 14.4, which is better than yesterday, hemoglobin 9.4, platelets 183. INR 1.88. BMP showed sodium 133, potassium 4.4, chloride 94, bicarbonate 26, BUN 77, creatinine 11.7, calcium 8.3. Microbiology: Two out of two blood cultures are growing Streptococcus pneumoniae which is sensitive to most of the antibiotics. IMAGING: CT scan of the abdomen and pelvis was done this morning which showed abdominal distention but no evidence of bowel obstruction. There was diffuse retained colonic stool secondary to constipation. Mild BPH. Bilateral renal cortical cysts. CURRENT MEDICATIONS: Patient's current medications were all reviewed by me. There is no change in the medications at this time. I have started the patient on Aranesp 300 mcg intravenous (IV) with hemodialysis for anemia. ASSESSMENT: 70-year-old male with past medical history of end-stage renal disease on hemodialysis, history of diabetes, eczema, gout, admitted this time with Streptococcus pneumoniae bacteremia, nephrology service following the patient for management of end-stage renal disease. PLAN: 1. End-stage renal disease. Patient is being dialyzed according to his regular schedule. We shall try to do an ultrafiltration of 4 liters as tolerated by his blood pressure. 2. Streptococcus pneumoniae bacteremia. Patient is currently on IV vancomycin and Zosyn. I think the antibiotics can be tapered down at this time. 3. Left foot pain. Patient was given a dose of colchicine 0.6 mg by mouth times one dose. Patient does report some improvement in the pain. Continue pain medications at this time. No further need of colchicine dose because of renal failure. 4. Hypertension. Blood pressure is acceptable at this time. 5. Pain in abdomen and constipation. Patient will be given a dose of lactulose.
[2016-05-15] MEDS: CHECK TO SEE IF PATIENT IS RECEIVING DIALYSIS TODAY AND REFER TO THE VANCOMYCIN ORDER XX SCH (16:00)
[2016-05-15] MEDS: WARFARIN SOD 4 MG TAB PO SCH (17:55)
[2016-05-15] MEDS: LEVEMIR (INSULIN DETEMIR) 1 UNITS/0.01ML SC SCH ×2 (21:00→21:42)
[2016-05-15 22:00] VITALS: BP 127/74
[2016-05-16] MEDS: MORPHINE 2 MG/ML 1ML SYRINGE IV PRN ×2 (00:04→06:34)
[2016-05-16] MEDS: IPRATROPIUM 0.5MG/ALBUTEROL 2.5MG INH SOL UD 3ML (DUONEB)(J7620) NEB SCH ×4 (01:15→19:31)
[2016-05-16 05:48] LABS: MEAN CORPUSCULAR HEMOGLOBIN 33.4 pg (27.0-33.0); MEAN CORPUSCULAR HGB CONC 32.3 g/dl (32.0-36.5); MEAN CORPUSCULAR VOLUME 103.4 fl (80.0-96.0); RED CELL DISTRIBUTION WIDTH 13.1 % (11.5-14.5); WHITE BLOOD COUNT 9.5 K/mm3 (4.0-10.0)
[2016-05-16 05:53] LABS: INR 2.34
[2016-05-16 06:00] VITALS: BP 132/85
[2016-05-16 06:16] LABS: ALBUMIN 2.4 GM/DL (3.2-5.2); ALBUMIN/GLOBULIN RATIO 0.57 (1.00-1.93); BILIRUBIN,TOTAL 0.5 MG/DL (0.2-1.0); CALCIUM LEVEL 8.5 MG/DL (8.8-10.2); CREATININE FOR GFR 9.98 MG/DL (0.70-1.30); GLOMERULAR FILTRATION RATE 6.7 (>49); POTASSIUM SERUM 5.1 MEQ/L (3.5-5.1); TOTAL PROTEIN 6.6 GM/DL (6.4-8.2)
[2016-05-16] MEDS: SENOKOT S TAB PO SCH ×2 (06:22→21:03)
[2016-05-16] MEDS: TAMSULOSIN 0.4 MG CAP PO SCH (06:22)
[2016-05-16] MEDS: ATORVASTATIN 20 MG TAB PO SCH (06:22)
[2016-05-16] MEDS: BISACODYL 10 MG SUPP PR SCH (06:22)
[2016-05-16] MEDS: LACTULOSE 20 GM/30 ML SYRUP UD PO SCH (06:22)
[2016-05-16] MEDS: FEBUXOSTAT 40 MG TABLET (ULORIC) PO SCH (06:23)
[2016-05-16] MEDS: MIRALAX *UNIT DOSE* 17GM PACKET PO SCH (06:23)
[2016-05-16] MEDS: ASPIRIN 81 MG CHEW TABLET PO SCH (06:23)
[2016-05-16] MEDS: CYANOCOBALAMIN 500 MCG TAB PO SCH (06:23)
[2016-05-16] MEDS: METOPROLOL TART 50 MG TAB PO SCH ×2 (06:23→21:03)
[2016-05-16] MEDS: GABAPENTIN 100 MG CAP PO SCH ×2 (06:23→21:03)
[2016-05-16] MEDS: NEPHRO-VIT TAB (NEPHROCAPS) PO SCH (06:23)
[2016-05-16] MEDS: CALCIUM ACETATE 667 MG GELCAP PO SCH ×3 (08:08→17:14)
[2016-05-16] MEDS: (RENVELA) SEVELAMER **CARBONate** 800 MG TAB PO SCH ×3 (08:08→17:14)
[2016-05-16] MEDS: HumaLOG INSULIN (NovoLOG) PER UNIT SC SCH ×4 (08:09→20:18)
--- NOTE | 2016-05-16 08:11 | IPNPDOC ---
Assessment/Plan Date Seen The patient was seen on 05/16/16. Problems Problems: (1) SOB (shortness of breath) Status: Acute Response to Treatment: Stable Problem Text: Pt. not complaining of SOB or cough at bedside today Pt. on O2 therapy-titrate above 90% Rocephin abx. continued- may be 2/2 URI (2) Pleuritic chest pain Status: Acute Problem Text: Pt. continues to complain of some mild left epigastric/LUQ dull pain, especially when he coughs, also complains of diffuse achy abdomen but is passing gas, last BM overnight x3. Pt received lactulose therapy for constipation CT abdomen/pelvis results back- r/o obstruction and abdominal wall hematoma, showed abdominal distention and moderate diffuse retained stool constipation Diffuse mural thickening seen within the bladder, may be secondary to cystitis and scarring. Also mild prostatic hypertrophy, bilateral renal cortical cyst, some esther hepatis nodes with largest being 10 mm not significantly changed. CP is likely 2/2 chronic cough and non-cardiac in nature, EKG has been without ischemic changes First set of Troponins in ED upon presentation was slightly elevated, second and third set normal Chest CT showed bibasilar atelectasis & possible subtle early infiltrate Continue to monitor. (3) ESRD (end stage renal disease) Status: Chronic Response to Treatment: Stable Problem Text: Had hemodialysis treatment two days ago on regular dialysis schedule now will be dialyzed today Nephrology consulted-appreciate their input (4) Pneumonia Status: Acute Response to Treatment: Stable Problem Text: Chest CT from one day ago showed possible early infiltrate pt has also had positive blood cx for strep. pneumo., WBC has improved at 9.5 today IV vancomycin abx therapy has been initiated one day ago (5) Atrial fibrillation Status: Chronic Response to Treatment: Stable Problem Text: Rate is currently controlled Continue pts home Coumadin 7 mg and Metoprolol 50 mg Continue to monitor (6) HTN (hypertension) Status: Chronic Response to Treatment: Stable Problem Text: BP stable PT on home Metoprolol 50 mg (7) Foot pain Status: Chronic Response to Treatment: Stable Problem Text: Patient has not been cleared by PT to be d/c Foot x-ray negative for acute fractures or dislocation. less likely 2/2 gout- uric acid normal Pt has history of traumatic event to left foot- dropped a door on it- foot x- ray on admission negative for fracture or break No swelling over dorsum of foot is evidenced on bedside exam today. (8) Gout Status: Chronic Response to Treatment: Stable Problem Text: Continue pts home Uloric mediation (9) BPH (benign prostatic hyperplasia) Status: Acute Problem Text: continue home Flomax Plan / VTE VTE Prophylaxis Ordered?: Yes Subjective Review of Systems CC/HPI The patient is a 70-year-old male admitted with a reason for visit of Pleuritic Chest Pain. General: Denies: Chills, Fatigue, Night Sweats Constitutional: Denies: Chills, Fever, Malaise, Night Sweats Eyes: Denies: Conjunctivae inflammation, Eyelid inflammation, Pain, Redness, Vision change ENT: Denies: Head Aches Skin: Denies: Jaundice, Lesions, Rash Pulmonary: Denies: Cough, Dyspnea Cardiovascular: Denies: Chest Pain, Edema, Orthopnea, Palpitations, Paroxysmal Noc. Dyspnea Gastrointestinal: Denies: Abdominal Pain, Nausea, Vomiting Neurological: Denies: Weakness Objective Physical Examination General Exam: Positive: Alert, Cooperative, No Acute Distress Eye Exam: Positive: Conjunctiva & lids normal, EOMI, PERRLA ENT Exam: Positive: Atraumatic, Mucous membr. moist/pink, Nares Patent, Pharynx Normal, Tongue Midline Neck Exam: Positive: Supple Chest Exam: Positive: Clear to auscultation, Normal air movement Heart Exam: Positive: Normal S1, Normal S2, Rate Normal Abdomen Exam: Positive: Normal bowel sounds, Other (still experiencing some pain to palpitation in LUQ), Soft, Tenderness Extremity Exam: Positive: Other (states pain in left ankle is improved from one day ago) Psych Exam: Positive: Mental status NL Vital Signs/I&O Vital Signs Date Time Temp Pulse Resp B/P Pulse Ox O2 Delivery O2 Flow Rate FiO2 05/16/16 06:44 19 05/16/16 06:23 98 132/85 05/16/16 06:00 98.7 97 Room Air I&O- Last 24 Hours up to 6 AM 05/16/16 06:00 Intake Total 2760 ml Output Total 100 ml Balance 2660 ml Laboratory Data Labs 24H Laboratory Tests 2 05/15/16 11:33: Bedside Glucose (Misc Panel) 154H 05/15/16 16:49: Bedside Glucose (Misc Panel) 145H 05/15/16 21:01: Bedside Glucose (Misc Panel) 155H 05/16/16 05:32: Blood Urea Nitrogen 68#H, Creatinine 9.98H, Sodium Level 136, Potassium Level 5.1, Chloride Level 99, Carbon Dioxide Level 26, Calcium Level 8.5L, Aspartate Amino Transf (AST/SGOT) 14L, Alanine Aminotransferase (ALT/SGPT) 25, Alkaline Phosphatase 87, Total Bilirubin 0.5, Total Protein 6.6, Albumin 2.4L, Albumin/ Globulin Ratio 0.57L, Anion Gap 11, Glomerular Filtration Rate 6.7L, Prothromb Time International Ratio 2.34, Prothrombin Time 25.7H CBC/BMP Laboratory Tests 05/16/16 05:32 Calcium Level 8.5 L, Aspartate Amino Transf (AST/SGOT) 14 L, Alanine Aminotransferase (ALT/SGPT) 25, Alkaline Phosphatase 87, Total Bilirubin 0.5, Total Protein 6.6, Albumin 2.4 L, Red Blood Count 2.79 L, Mean Corpuscular Volume 103.4 H, Mean Corpuscular Hemoglobin 33.4 H, Mean Corpuscular Hemoglobin Concent 32.3, Red Cell Distribution Width 13.1 FSBS Laboratory Tests Test 05/15/16 11:33 05/15/16 16:49 05/15/16 21:01 Range/Units Bedside Glucose (Misc Panel) 154 145 155 80-115 MG/DL Microbiology Microbiology 05/11/16 Blood Culture - Final, Complete Streptococcus Pneumoniae Strep Pneumoniae Antigen 05/11/16 Blood Culture - Final, Complete Streptococcus Pneumoniae Strep Pneumoniae Antigen 05/12/16 Gram Stain - Final, Complete 05/12/16 Sputum Culture - Final, Complete GME ATTESTATION GME ATTESTATION My preceptor for this patient encounter was physically present in the building during the encounter and was fully available. As needed, all aspects of the patient interview, examination, medical decision making process, and medical care plan development were reviewed and approved by the preceptor. Preceptor is aware and concurs with the plan as stated in the body of this note and will attest to such by his/her cosignature. LYNNE TINOCO DO May 16, 2016 08:11
[2016-05-16] MEDS: ADVAIR DISKUS 250/50 INH PWD INH SCH ×2 (09:00→19:30)
[2016-05-16] MEDS ORDERED: HEPARIN 1,000 UNITS/ML 10ML VIAL (FOR RADIOLOGY& DIALYSIS ONLY) IV ONE (11:30)
[2016-05-16] MEDS ORDERED: LIDOCAINE 1% SDV 5 ML VIAL SQ ONE (11:30)
[2016-05-16] MEDS ORDERED: LIDOCAINE 1% MDV 20ML VIAL SQ ONE (11:30)
--- NOTE | 2016-05-16 11:55 | IPN ---
DATE: 05/15/2016 SUBJECTIVE: Patient was seen and examined at the bedside today in the morning. He still complains of pain in the abdomen and constipation, although he was given rectal Dulcolax, but he reports that his constipation is not relieved. His left foot pain is getting better. He started walking now. REVIEW OF SYSTEMS: Patient denies any fever, chills, rigors, headaches, nausea, vomiting, chest pain, shortness of breath. He does complain of pain in the abdomen and constipation. Rest of review of systems is negative. OBJECTIVE: VITAL SIGNS: Temperature 99.7 degrees Fahrenheit, blood pressure 127/66, pulse is 98, respiratory rate of 18, saturating at 98% on room air. INTAKE/OUTPUT: The patient got hemodialysis done yesterday, 4 liters of ultrafiltration was done. Weight on the bed scale is 122.5 kg today. PHYSICAL EXAMINATION: GENERAL: Patient is awake, alert, oriented times three, laying in bed. No apparent distress. HEAD and NECK: Patient has right eye blindness. Mucous membranes are moist. Neck is supple. There is no jugular venous distention (JVD). CARDIOVASCULAR: S1, S2, tachycardia, irregular hear rate. RESPIRATORY: Clear to auscultation bilaterally. Bilateral good air entry. No rales or rhonchi. ABDOMEN: Soft, positive bowel sounds. Mild tenderness in the left upper quadrant. No organomegaly. EXTREMITIES: No clubbing or cyanosis. Patient has mild tenderness at the left foot. CENTRAL NERVOUS SYSTEM (ANESTHESIA TECHNICIAN): No focal neurological deficit. Power is 5/5 in all extremities. ARTERIOVENOUS (AV) ACCESS: Patient has a right forearm AV fistula with thrill and bruit. PSYCHIATRIC: Normal mood and affect. LABORATORY REVIEW: CBC showed WBC 11.1, hemoglobin 9.7, platelets of 193. INR is 1.9. BMP showed sodium 138, potassium 5.0, chloride 101, bicarbonate 28, BUN is 45, creatinine is 7.5, albumin is 2.5. Microbiology: There are no new cultures available apart from the Streptococcus pneumoniae in the blood. CURRENT MEDICATIONS: Patient's current medications are reviewed by me. His IV Zosyn has been stopped. He continues to be on IV vancomycin every hemodialysis. ASSESSMENT: 70-year-old male with past medical history of end-stage renal disease on hemodialysis, history of insulin-dependent diabetes, eczema, gout, admitted this time with pleuritic chest pain. Later on he was found to have Streptococcus pneumoniae bacteremia, nephrology service following the patient for management of end-stage renal disease. PLAN: 1. End-stage renal disease. Patient's regular hemodialysis days are Thursday, Thursday and Thursday. He was dialyzed according to his schedule yesterday. Next hemodialysis will be tomorrow. 2. Streptococcus pneumoniae bacteremia. Streptococcus pneumoniae is sensitive to vancomycin on sensitivity report, so I have stopped the Zosyn. The patient continues to be on vancomycin every hemodialysis. 3. Constipation. The patient got a Dulcolax suppository that did not help him. I am going to start the patient on Lactulose 30 mL by mouth daily. 4. Left foot pain. His foot pain is improving. He was given one dose of empiric colchicine 0.6 mg by mouth for possible gout attack. 5. History of atrial fibrillation. The patient's INR is not therapeutic at this time. I am going to increase his Coumadin dose to 8 mg daily.
[2016-05-16 13:00] VITALS: BP 133/84
[2016-05-16 14:59] VITALS: BP 140/72
--- NOTE | 2016-05-16 15:09 | REP ---
SUPINE ABDOMEN, TWO VIEWS: Comparison is 04/28/2012. There is a large volume of fecal residue in the ascending colon and transverse colon. There is minimal fecal residue in the descending colon and sigmoid colon. This is similar to the prior study. There is no bowel distention or obstruction. There are no unusual calcifications. The skeletal and soft tissue structures are otherwise unremarkable. Unreviewed MTDD
[2016-05-16] MEDS: CHECK TO SEE IF PATIENT IS RECEIVING DIALYSIS TODAY AND REFER TO THE VANCOMYCIN ORDER XX SCH (16:00)
[2016-05-16] MEDS: VANCOMYCIN HCL 1,000 MG, VIAL MATE ADAPTER 1 EACH in D5W 250 ML IV SCH (17:13)
[2016-05-16] MEDS: WARFARIN SOD 4 MG TAB PO SCH (17:14)
[2016-05-16] MEDS: LEVEMIR (INSULIN DETEMIR) 1 UNITS/0.01ML SC SCH (21:04)
[2016-05-16 22:00] VITALS: BP 122/66
[2016-05-17] MEDS: IPRATROPIUM 0.5MG/ALBUTEROL 2.5MG INH SOL UD 3ML (DUONEB)(J7620) NEB SCH ×4 (00:07→20:00)
[2016-05-17] MEDS: MORPHINE 2 MG/ML 1ML SYRINGE IV PRN ×2 (00:44→21:37)
[2016-05-17 06:00] VITALS: BP 119/71
[2016-05-17 06:21] LABS: MEAN CORPUSCULAR HEMOGLOBIN 33.1 pg (27.0-33.0); MEAN CORPUSCULAR HGB CONC 31.9 g/dl (32.0-36.5); MEAN CORPUSCULAR VOLUME 103.7 fl (80.0-96.0); WHITE BLOOD COUNT 10.6 K/mm3 (4.0-10.0)
[2016-05-17 06:26] LABS: INR 2.68
[2016-05-17 06:44] LABS: ALBUMIN 2.4 GM/DL (3.2-5.2); ALBUMIN/GLOBULIN RATIO 0.52 (1.00-1.93); BILIRUBIN,TOTAL 0.5 MG/DL (0.2-1.0); CALCIUM LEVEL 8.7 MG/DL (8.8-10.2); CREATININE FOR GFR 6.83 MG/DL (0.70-1.30); GLOMERULAR FILTRATION RATE 10.4 (>49); POTASSIUM SERUM 4.6 MEQ/L (3.5-5.1)
[2016-05-17] MEDS: ADVAIR DISKUS 250/50 INH PWD INH SCH (07:24)
[2016-05-17] MEDS: HumaLOG INSULIN (NovoLOG) PER UNIT SC SCH ×4 (07:30→21:00)
--- NOTE | 2016-05-17 07:57 | DS.PDOC ---
Discharge Summary Date Of Admission May 12, 2016 at 00:24 Date of Discharge 05-20-2016 Discharge Summary PRIMARY CARE PHYSICIAN: Dr. Alvarez ATTENDING TODAY: Emily Dorantes DO SPECIALIST/CONSULTATIONS INVOLVED DURING STAY: Nephrology began following pt on 05-13-2016 PROCEDURES PERFORMED DURING STAY: Pt received inpt dialysis treatment COMPLICATIONS/CHIEF COMPLAINT: Pleuritic Chest Pain ADMISSION DIAGNOSES: 1. Shortness of breath likely secondary to asthma versus upper respiratory tract infection 2. Left foot pain without evidence of acute fracture or dislocation 3. Chest pain most likely secondary to chronic cough DISCHARGE DIAGNOSES: 1. Dyspnea possibly secondary to pneumonia or upper respiratory tract infection 2. Left foot pain of unknown etiology possibly secondary to gout attack 3. Chest pain possibly secondary to pneumonia and chronic cough, likely cardiogenic 4. Hyperkalemia 5. DM2 insulin-dependent 6. Hypertension 7. Atrial fibrillation 8. End-stage renal disease on hemodialysis 9. 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 HOSPITAL COURSE: Patient was noted to have an elevated temperature in the emergency department of 100.6 and received 1 dose of Rocephin. Sputum cultures on this admission were negative. However blood cultures did grow Streptococcus pneumonia,; in the hospital the patient did receive vancomycin, piperacillin tazobactam, levofloxacin antibiotic therapy, as he had chest CT that demonstrated signs of potential subtle infiltrate suggesting pneumonia. His first set of troponins was mildly elevated in the emergency department however have normalized since then, EKG unremarkable for ischemic changes or infarct. Patient also demonstrated leukocytosis on this admission but on the day of discharge white blood cells had come down to 8.7, there have been some mild elevations in temperature but no further documented fevers during his stay except on his presentation to ED. Patient's left foot pain had improved since he presented to the emergency department after being treated for gout inpatient. He also had hyperkalemia on this admission that normalized after his hemodialysis treatments that he obtained. Patient continued to complain of some minor abdominal ache mostly in his left upper quadrant, imaging subsequently done inpatient was negative for obstruction but did demonstrate some distension and constipation, patient was given lactulose, and then switched to polyethylene glycol and began having bowel movements and feeling much better with marked improvement in his abdominal cramps. Pt did have set of blood cultures positive for strep pneumoniae , will repeat blood cultures and pt will need to see PCP within a week of d/c to f/u with culture results. Pt has been afebrile on admission ( highest documented temp was 05-12-2016 of 100.2 F) and WBC have been trending down since admission, 8.3 on day of d/c. If blood cultures result positive, may warrant echo. as outpt. Pt will receive abx therapy on d/c and will also receive abx therapy during outpt. dialysis treatments. DISCHARGE MEDICATIONS: Please see below. ALLERGIES: Please see below. PHYSICAL EXAMINATION ON DISCHARGE: VITAL SIGNS: GENERAL: AAOX3, conversant and pleasant sitting in bed HEENT: NCAT, PERRLA, nares patent b/l, moist mucus membranes NECK: supple, no lymphadenopathy appreciated CARDIOVASCULAR EXAMINATION: normal s1 and s2, RRR, no murmurs or gallops or rubs appreciated RESPIRATORY EXAMINATION: CTA b/l, no wheezing or rhonchi appreciated, good air expansion b/l ABDOMINAL EXAMINATION: NABSx4, non-distended, non-tender, no organomegaly appreciated EXTREMITIES: no cyanosis, edema or swelling appreciated SKIN: intact NEUROLOGICAL EXAMINATION: no focal deficits appreciated PSYCHIATRIC EXAMINATION: normal affect and demeanor LABORATORY DATA: Please see below. IMAGING: Left foot x-ray 05/11/2016 showed age-related degenerative changes and vascular calcification, s negative for acute fracture or dislocation Chest x-ray 05/11/2016 showed cardiomegaly and findings to suggest pulmonary venous congestion Chest CT 05/12/2016 showed findings suggestive of bibasilar atelectasis and possible subtle early infiltrate. Abdomen and pelvic CT 05/14/2016 showed bibasilar atelectatic changes, abdominal distention but no evidence of bowel obstruction. Moderate diffuse retained colonic stool/constipation. Diffuse mural thickening seen within the bladder possibly due to contracted state. Differential diagnosis including cystitis and scarring. Mild prostatic hypertrophy with extrinsic impression upon the inferior bladder. Bilateral renal cortical cyst. Few esther hepatis nodes, largest 10 mm in diameter not significantly changed. Abdominal x-ray 05/24/2016- Possible fecal stasis and constipation. No evidence for bowel obstruction. Abdominal x-ray 05/16/16- There is a large volume of fecal residue in the ascending colon and transverse colon. There is minimal fecal residue in the descending colon and sigmoid colon. This is similar to the prior study. There is no bowel distention or obstruction. There are no unusual calcifications. The skeletal and soft tissue structures are otherwise unremarkable. VTE Prophylaxis ordered?: yes DISCHARGE CONDITION: stable DISPOSITION: stable ACTIVITY: as tolerated DIET: consistent carbohydrate ITEMS TO FOLLOWUP ON OUTPATIENT: f/u with pcp within one week of d/c results of blood cultures DISCHARGE PLAN AND INSTRUCTIONS: 1. home TIME SPENT ON DISCHARGE: Greater than 30 minutes. Vital Signs/I&Os Vital Signs Date Time Temp Pulse Resp B/P Pulse Ox O2 Delivery O2 Flow Rate FiO2 05/17/16 06:00 97.6 98 18 119/71 97 Room Air I&O- Last 24 Hours up to 6 AM 05/17/16 06:00 Intake Total 1670 ml Output Total 4000 ml Balance -2330 ml Laboratory Data Labs 24H Laboratory Tests 2 05/16/16 14:09: Bedside Glucose (Misc Panel) 127H 05/16/16 17:00: Bedside Glucose (Misc Panel) 190H 05/16/16 20:07: Bedside Glucose (Misc Panel) 243H 05/17/16 05:33: Blood Urea Nitrogen 38H, Creatinine 6.83H, Sodium Level 139, Potassium Level 4.6 , Chloride Level 99, Carbon Dioxide Level 28, Calcium Level 8.7L, Aspartate Amino Transf (AST/SGOT) 15, Alanine Aminotransferase (ALT/SGPT) 28, Alkaline Phosphatase 86, Total Bilirubin 0.5, Total Protein 7.0, Albumin 2.4L, Albumin/ Globulin Ratio 0.52L, Anion Gap 12, Glomerular Filtration Rate 10.4L, Prothromb Time International Ratio 2.68, Prothrombin Time 28.6H CBC/BMP Laboratory Tests 05/17/16 05:33 Calcium Level 8.7 L, Aspartate Amino Transf (AST/SGOT) 15, Alanine Aminotransferase (ALT/SGPT) 28, Alkaline Phosphatase 86, Total Bilirubin 0.5, Total Protein 7.0, Albumin 2.4 L, Red Blood Count 2.93 L, Mean Corpuscular Volume 103.7 H, Mean Corpuscular Hemoglobin 33.1 H, Mean Corpuscular Hemoglobin Concent 31.9 L, Red Cell Distribution Width 14.0 FSBS Laboratory Tests Test 05/16/16 14:09 05/16/16 17:00 05/16/16 20:07 Range/Units Bedside Glucose (Misc Panel) 127 190 243 80-115 MG/DL Microbiology Microbiology 05/11/16 Blood Culture - Final, Complete Streptococcus Pneumoniae Strep Pneumoniae Antigen 05/11/16 Blood Culture - Final, Complete Streptococcus Pneumoniae Strep Pneumoniae Antigen 05/12/16 Gram Stain - Final, Complete 05/12/16 Sputum Culture - Final, Complete Medications Scheduled (Aspirin) 81 Mg Chw 81 MG PO DAILY Atorvastatin Calcium (Atorvastatin Calcium) 40 Mg Tab 40 MG PO DAILY Calcium Acetate (Calcium Acetate) 667 Mg Cap 1,334 MG PO WM Cholecalciferol (Vitamin D) 1,000 Unit Tab Unknown Dose PO DAILY Cyanocobalamin (Vitamin B-12) 500 Mcg Tab 1,000 MCG PO DAILY Febuxostat (Uloric) 40 Mg Tab 40 MG PO DAILY Gabapentin (Gabapentin) 100 Mg Cap 100 MG PO DAILY Insulin Aspart (Novolog) 100 U/Ml Inj 1 DOSE SC AC PER SLIDING SCALE Insulin Detemir (Levemir) 1 Units/0.01 Ml Susp 16 UNITS SC QHS Metoprolol Tartrate (Metoprolol Tartrate) 50 Mg Tab 50 MG PO BID Salmeterol/Fluticasone (Advair Diskus 250-50 Mcg/Dose) 14 Puff/Inhaler Aerp 1 PUFF INH BID Sevelamer Carbonate (Renvela) 800 Mg Tab 1,600 MG PO WM Tamsulosin Hydrochloride (Flomax) 0.4 Mg Cap 0.4 MG PO DAILY Vitamin B Cmplx/Vitc/Folic Ac (Nephro-Martin Rx 1 mg) 1 Tab Tab 1 TAB PO DAILY Warfarin Sod (Warfarin Sodium) 1 Mg Tab 1 MG PO QHS WITH 6 MG FOR 7 MG TOTAL Warfarin Sod (Warfarin Sodium) 6 Mg Tab 6 MG PO QHS WITH 1 MG FOR 7 MG TOTAL Scheduled PRN Albuterol Sulfate (Ventolin Hfa) 200 Puff/8 Gm Aers 2 PUFF INH Q4H PRN PRN SHORTNESS OF BREATH Levofloxacin Hemihydrate (Levofloxacin) 250 Mg Tab 250 MG PO Q48H PRN PRN SEE LABEL COMMENTS Nitroglycerin (Nitrostat) 0.4 Mg Subl 0.4 MG SL NITRO PRN PRN ANGINA Allergies Coded Allergies: No Known Allergies (Verified , 04/13/06) GME ATTESTATION GME ATTESTATION My preceptor for this patient encounter was physically present in the building during the encounter and was fully available. As needed, all aspects of the patient interview, examination, medical decision making process, and medical care plan development were reviewed and approved by the preceptor. Preceptor is aware and concurs with the plan as stated in the body of this note and will attest to such by his/her cosignature. LYNNE TINOCO DO May 17, 2016 07:57
[2016-05-17] MEDS: LACTULOSE 20 GM/30 ML SYRUP UD PO SCH ×3 (08:15→21:21)
[2016-05-17] MEDS: GABAPENTIN 100 MG CAP PO SCH ×2 (08:15→21:21)
[2016-05-17] MEDS: SENOKOT S TAB PO SCH ×2 (08:15→21:21)
[2016-05-17] MEDS: ATORVASTATIN 20 MG TAB PO SCH (08:15)
[2016-05-17] MEDS: BISACODYL 10 MG SUPP PR SCH (08:15)
[2016-05-17] MEDS: CALCIUM ACETATE 667 MG GELCAP PO SCH ×3 (08:16→17:14)
[2016-05-17] MEDS: FEBUXOSTAT 40 MG TABLET (ULORIC) PO SCH (08:16)
[2016-05-17] MEDS: ASPIRIN 81 MG CHEW TABLET PO SCH (08:16)
[2016-05-17] MEDS: (RENVELA) SEVELAMER **CARBONate** 800 MG TAB PO SCH ×3 (08:16→17:14)
[2016-05-17] MEDS: CYANOCOBALAMIN 500 MCG TAB PO SCH (08:17)
[2016-05-17] MEDS: TAMSULOSIN 0.4 MG CAP PO SCH (08:17)
[2016-05-17] MEDS: LevoFLOXacin 250 MG TABLET PO SCH (08:17)
[2016-05-17] MEDS: MIRALAX *UNIT DOSE* 17GM PACKET PO SCH (08:17)
[2016-05-17] MEDS: METOPROLOL TART 50 MG TAB PO SCH ×3 (08:20→21:23)
[2016-05-17] MEDS ORDERED: MAGNESIUM CITRATE 300 ML BTL PO ONE (09:00)
--- NOTE | 2016-05-17 09:20 | IPNPDOC ---
Assessment/Plan Date Seen The patient was seen on 05/17/16. Problems Problems: (1) SOB (shortness of breath) Status: Acute Response to Treatment: Stable Problem Text: Pt. not complaining of SOB or cough at bedside today pt on levofloxacin therapy possible pneumonia Pt. on O2 therapy-titrate above 90% Rocephin abx. continued- may be 2/2 URI (2) Pleuritic chest pain Status: Acute Problem Text: Pt. continues to complain of some mild left epigastric/LUQ dull pain, especially when he coughs, also complains of diffuse achy abdomen but is passing gas Pt received lactulose therapy for constipation,will continue lactulose and mag citrate CT abdomen/pelvis results back- r/o obstruction and abdominal wall hematoma, showed abdominal distention and moderate diffuse retained stool constipation Diffuse mural thickening seen within the bladder, may be secondary to cystitis and scarring. Also mild prostatic hypertrophy, bilateral renal cortical cyst, some esther hepatis nodes with largest being 10 mm not significantly changed. CP is likely 2/2 chronic cough and non-cardiac in nature, EKG has been without ischemic changes First set of Troponins in ED upon presentation was slightly elevated, second and third set normal Chest CT showed bibasilar atelectasis & possible subtle early infiltrate Continue to monitor. (3) ESRD (end stage renal disease) Status: Chronic Response to Treatment: Stable Problem Text: Had hemodialysis treatment one day ago on regular dialysis schedule now Nephrology consulted-appreciate their input (4) Pneumonia Status: Acute Response to Treatment: Stable Problem Text: Chest CT from two days ago showed possible early infiltrate levofloxacin antibiotic therapy pt has also had positive blood cx for strep. pneumo., WBC has improved but still at 10.6 today IV vancomycin abx therapy has been initiated one day ago (5) Atrial fibrillation Status: Chronic Response to Treatment: Stable Problem Text: Rate is currently controlled Continue pts home Coumadin 7 mg and Metoprolol 50 mg Continue to monitor (6) HTN (hypertension) Status: Chronic Response to Treatment: Stable Problem Text: BP stable PT on home Metoprolol 50 mg (7) Foot pain Status: Chronic Response to Treatment: Stable Problem Text: improved from two days ago, able to bear some weight on it Foot x-ray negative for acute fractures or dislocation. less likely 2/2 gout- uric acid normal Pt has history of traumatic event to left foot- dropped a door on it- foot x- ray on admission negative for fracture or break No swelling over dorsum of foot is evidenced on bedside exam today. (8) Gout Status: Chronic Response to Treatment: Stable Problem Text: Continue pts home Uloric mediation (9) BPH (benign prostatic hyperplasia) Status: Acute Problem Text: continue home Flomax Plan / VTE VTE Prophylaxis Ordered?: Yes Subjective Review of Systems CC/HPI The patient is a 70-year-old male admitted with a reason for visit of Pleuritic Chest Pain. General: Denies: Chills, Fatigue, Night Sweats, ROS Unobtainable Constitutional: Denies: Chills, Fever, Malaise, Night Sweats Eyes: Denies: Conjunctivae inflammation, Eyelid inflammation, Pain, Vision change ENT: Denies: Head Aches Pulmonary: Denies: Cough, Dyspnea, Pleuritic Chest Pain Cardiovascular: Denies: Chest Pain, Orthopnea, Palpitations Gastrointestinal: Denies: Abdominal Pain, Nausea, Vomiting Genitourinary: Denies: Dysuria, Frequency Neurological: Denies: Numbness, Weakness Psych: Reports: Mood Normal Objective Physical Examination General Exam: Positive: Alert, Cooperative, No Acute Distress Eye Exam: Positive: Conjunctiva & lids normal, EOMI, PERRLA ENT Exam: Positive: Atraumatic, Mucous membr. moist/pink, Nares Patent, Pharynx Normal, Tongue Midline Neck Exam: Positive: Supple Chest Exam: Positive: Clear to auscultation, Normal air movement Heart Exam: Positive: Normal S1, Normal S2, Rate Normal Abdomen Exam: Positive: Normal bowel sounds, Other (still experiencing some pain to palpitation in LUQ), Soft, Tenderness Extremity Exam: Positive: Other (states pain in left ankle is improved from two days ago) Psych Exam: Positive: Mental status NL Vital Signs/I&O Vital Signs Date Time Temp Pulse Resp B/P Pulse Ox O2 Delivery O2 Flow Rate FiO2 05/17/16 08:21 99 116/78 05/17/16 06:00 97.6 18 97 Room Air I&O- Last 24 Hours up to 6 AM 05/17/16 06:00 Intake Total 1670 ml Output Total 4000 ml Balance -2330 ml Laboratory Data Labs 24H Laboratory Tests 2 05/16/16 14:09: Bedside Glucose (Misc Panel) 127H 05/16/16 17:00: Bedside Glucose (Misc Panel) 190H 05/16/16 20:07: Bedside Glucose (Misc Panel) 243H 05/17/16 05:33: Blood Urea Nitrogen 38H, Creatinine 6.83H, Sodium Level 139, Potassium Level 4.6 , Chloride Level 99, Carbon Dioxide Level 28, Calcium Level 8.7L, Aspartate Amino Transf (AST/SGOT) 15, Alanine Aminotransferase (ALT/SGPT) 28, Alkaline Phosphatase 86, Total Bilirubin 0.5, Total Protein 7.0, Albumin 2.4L, Albumin/ Globulin Ratio 0.52L, Anion Gap 12, Glomerular Filtration Rate 10.4L, Prothromb Time International Ratio 2.68, Prothrombin Time 28.6H CBC/BMP Laboratory Tests 05/17/16 05:33 Calcium Level 8.7 L, Aspartate Amino Transf (AST/SGOT) 15, Alanine Aminotransferase (ALT/SGPT) 28, Alkaline Phosphatase 86, Total Bilirubin 0.5, Total Protein 7.0, Albumin 2.4 L, Red Blood Count 2.93 L, Mean Corpuscular Volume 103.7 H, Mean Corpuscular Hemoglobin 33.1 H, Mean Corpuscular Hemoglobin Concent 31.9 L, Red Cell Distribution Width 14.0 FSBS Laboratory Tests Test 05/16/16 14:09 05/16/16 17:00 05/16/16 20:07 Range/Units Bedside Glucose (Misc Panel) 127 190 243 80-115 MG/DL Microbiology Microbiology 05/11/16 Blood Culture - Final, Complete Streptococcus Pneumoniae Strep Pneumoniae Antigen 05/11/16 Blood Culture - Final, Complete Streptococcus Pneumoniae Strep Pneumoniae Antigen 05/12/16 Gram Stain - Final, Complete 05/12/16 Sputum Culture - Final, Complete GME ATTESTATION GME ATTESTATION My preceptor for this patient encounter was physically present in the building during the encounter and was fully available. As needed, all aspects of the patient interview, examination, medical decision making process, and medical care plan development were reviewed and approved by the preceptor. Preceptor is aware and concurs with the plan as stated in the body of this note and will attest to such by his/her cosignature. LYNNE TINOCO DO May 17, 2016 09:20
[2016-05-17] MEDS: NEPHRO-VIT TAB (NEPHROCAPS) PO SCH (10:22)
[2016-05-17 14:00] VITALS: BP 138/91
[2016-05-17] MEDS: WARFARIN SOD 2 MG TAB PO SCH (17:13)
[2016-05-17] MEDS: LEVEMIR (INSULIN DETEMIR) 1 UNITS/0.01ML SC SCH (21:00)
[2016-05-17 22:00] VITALS: BP 147/89
[2016-05-18] MEDS: IPRATROPIUM 0.5MG/ALBUTEROL 2.5MG INH SOL UD 3ML (DUONEB)(J7620) NEB SCH ×5 (01:20→22:29)
[2016-05-18 06:00] VITALS: BP 133/78
[2016-05-18 06:40] LABS: MEAN CORPUSCULAR HEMOGLOBIN 32.9 pg (27.0-33.0); MEAN CORPUSCULAR HGB CONC 31.8 g/dl (32.0-36.5); MEAN CORPUSCULAR VOLUME 103.3 fl (80.0-96.0); WHITE BLOOD COUNT 9.2 K/mm3 (4.0-10.0)
[2016-05-18 06:49] LABS: INR 3.02
[2016-05-18 06:57] LABS: ALBUMIN 2.5 GM/DL (3.2-5.2); ALBUMIN/GLOBULIN RATIO 0.56 (1.00-1.93); BILIRUBIN,TOTAL 0.5 MG/DL (0.2-1.0); CALCIUM LEVEL 8.5 MG/DL (8.8-10.2); CREATININE FOR GFR 9.13 MG/DL (0.70-1.30); GLOMERULAR FILTRATION RATE 7.5 (>49)
[2016-05-18] MEDS: ADVAIR DISKUS 250/50 INH PWD INH SCH ×2 (07:19→19:45)
[2016-05-18] MEDS: LACTULOSE 20 GM/30 ML SYRUP UD PO SCH (07:40)
[2016-05-18] MEDS: HumaLOG INSULIN (NovoLOG) PER UNIT SC SCH ×4 (07:40→20:58)
[2016-05-18] MEDS: BISACODYL 10 MG SUPP PR SCH (07:41)
[2016-05-18] MEDS: SENOKOT S TAB PO SCH ×2 (07:41→21:00)
[2016-05-18] MEDS: ASPIRIN 81 MG CHEW TABLET PO SCH (07:41)
[2016-05-18] MEDS: GABAPENTIN 100 MG CAP PO SCH ×2 (07:41→22:04)
[2016-05-18] MEDS: NEPHRO-VIT TAB (NEPHROCAPS) PO SCH (07:41)
[2016-05-18] MEDS: TAMSULOSIN 0.4 MG CAP PO SCH (07:41)
[2016-05-18] MEDS: CALCIUM ACETATE 667 MG GELCAP PO SCH ×3 (07:41→17:52)
[2016-05-18] MEDS: FEBUXOSTAT 40 MG TABLET (ULORIC) PO SCH (07:41)
[2016-05-18] MEDS: (RENVELA) SEVELAMER **CARBONate** 800 MG TAB PO SCH ×3 (07:41→17:52)
[2016-05-18] MEDS: CYANOCOBALAMIN 500 MCG TAB PO SCH (07:42)
[2016-05-18] MEDS: METOPROLOL TART 50 MG TAB PO SCH ×2 (07:42→22:04)
[2016-05-18] MEDS: ATORVASTATIN 20 MG TAB PO SCH (07:42)
--- NOTE | 2016-05-18 08:55 | IPN ---
DATE OF SERVICE: 05/16/2016 SUBJECTIVE: The patient was seen and examined at the bedside today in the morning during hemodialysis procedure. He was tolerating the hemodialysis procedure well. REVIEW OF SYSTEMS: The patient denies any fever, chills, rigors, headaches, chest pain. He does complain of some shortness of breath and cough. The patient also reports pain abdomen, abdominal distention, and constipation, and he reports that lactulose has not really helped him. He also reports that he has pain and swelling in the left foot, but it is slowly getting better. The rest of review of systems is negative. OBJECTIVE: VITAL SIGNS: Temperature 98.7 degrees Fahrenheit, blood pressure 132/85, pulse is 98, respiratory rate of 18, saturating 97% on room air. INTAKE AND OUTPUT: Urine output recorded is only 100 mL yesterday. Weight on the bed scale is 123.1 kg. PHYSICAL EXAMINATION: GENERAL: The patient is awake, alert, oriented times three, lying in bed, getting hemodialysis done. HEAD AND NECK EXAMINATION: Extraocular muscles intact. 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 Mucous membranes are moist. Neck is supple. There is no jugular venous distention (JVD). CARDIOVASCULAR: S1, S2, irregular heart rate. No murmur, rub, and gallop. RESPIRATORY: Decreased breath sounds at the bases with some crepitations on the bases on deep inspiration. ABDOMEN: Soft, mildly distended. Decreased bowel sounds. Otherwise, there is no tenderness. No organomegaly. EXTREMITIES: No clubbing or cyanosis. The patient has a mild tenderness in the left foot, but the swelling is better. CENTRAL NERVOUS SYSTEM ([employer] AND [employer] INSPECTING DISPATCHER): No focal neurological deficit. Power is 5/5 in all extremities. ARTERIOVENOUS (AV) ACCESS: The patient has a right forearm AV fistula, which is being used for dialysis at this time. No issues with access. LABORATORY REVIEW: CBC showed WBC 9.5 hemoglobin 9.3, platelets of 182. BMP showed sodium 136, potassium 5.1, chloride 99, bicarbonate 26, BUN 68 creatinine 9.9, calcium 8.5, albumin 2.4. IMAGING: X-ray kidneys, ureters, bladder (KUB) was ordered this morning, and study is still pending CURRENT MEDICATIONS: The patient's current medications were all reviewed by me. He continues to be on intravenous (IV) vancomycin for Streptococcus pneumoniae bacteremia. His warfarin dose has been increased to 8 mg daily. There is no change in the medications at this time. ASSESSMENT: A 70-year-old male with past medical history of end-stage renal disease on hemodialysis, history of diabetes, eczema, gout, admitted this time with Streptococcus pneumoniae bacteremia, nephrology service following the patient for management of end-stage renal disease. PLAN: 1. End-stage renal disease. The patient is being dialyzed according to his schedule. Will try to do an ultrafiltration of 4-5 liters as tolerated by his blood pressure. 2. Streptococcus pneumoniae bacteremia. He is currently on IV vancomycin 1 gram at hemodialysis. Zosyn has been stopped. Streptococcus pneumoniae is sensitive to vancomycin on the cultures. 3. Constipation. The patient was started on Lactulose yesterday. He still complains of constipation. I will do an x-ray KUB to make sure that he does not have any obstruction, although the CAT scan done 2 days ago did not show any signs of obstruction, and there was retained stool in the colon. Once the KUB result comes back, I would order enema for this patient. 4. Left foot pain. The patient's left foot pain is getting better. Swelling is better at this time. 5. History of atrial fibrillation. I increased the dose of Coumadin to 8 mg every day. His international normalized ratio (INR) is therapeutic. It is 2.3. Continue to monitor INR daily. Coumadin dose will be adjusted accordingly.
[2016-05-18] MEDS ORDERED: MIRALAX *UNIT DOSE* 17GM PACKET PO SCH (09:00)
--- NOTE | 2016-05-18 10:54 | IPNPDOC ---
Assessment/Plan Date Seen The patient was seen on 05/18/16. Problems Problems: (1) Pneumonia Status: Acute Response to Treatment: Stable Problem Text: strep pneumoniae pneumonia recieved 3 days of zosyn and vancomycin now on levofloxacin. Chest CT showed early infiltrate pt has also had positive blood cx for strep. pneumo (2) Abdominal pain Status: Acute Problem Text: Pt. continues to complain of RUQ abdominal pain also complains of diffuse achy abdomen but is passing gas, last BM overnight x3. on aggressive bowel regimen. CT abdomen/pelvis results back- r/o obstruction and abdominal wall hematoma, showed abdominal distention and moderate diffuse retained stool constipation Diffuse mural thickening seen within the bladder, may be secondary to cystitis and scarring. Also mild prostatic hypertrophy, bilateral renal cortical cyst, some esther hepatis nodes with largest being 10 mm not significantly changed. (3) Bacteremia due to Streptococcus pneumoniae Status: Acute Problem Text: recieced 3 days of zosyn and vancomycin now on levofloxacin. (4) ESRD (end stage renal disease) Status: Chronic Response to Treatment: Stable Problem Text: Had hemodialysis treatment two days ago on regular dialysis schedule now will be dialyzed today Nephrology consulted-appreciate their input (5) Atrial fibrillation Status: Chronic Response to Treatment: Stable Problem Text: Rate is currently controlled Continue pts home Coumadin 7 mg and Metoprolol 50 mg Continue to monitor (6) HTN (hypertension) Status: Chronic Response to Treatment: Stable Problem Text: BP stable PT on home Metoprolol 50 mg (7) Foot pain Status: Chronic Response to Treatment: Stable Problem Text: Patient has not been cleared by PT to be d/c Foot x-ray negative for acute fractures or dislocation. less likely 2/2 gout- uric acid normal Pt has history of traumatic event to left foot- dropped a door on it- foot x- ray on admission negative for fracture or break No swelling over dorsum of foot is evidenced on bedside exam today. (8) Gout Status: Chronic Response to Treatment: Stable Problem Text: Continue pts home Uloric mediation (9) BPH (benign prostatic hyperplasia) Status: Acute Problem Text: continue home Flomax Plan / VTE VTE Prophylaxis Ordered?: Yes Subjective Review of Systems CC/HPI The patient is a 70-year-old male admitted with a reason for visit of Pleuritic Chest Pain. Events since last encounter complaining of persistent abdominal pain , distension and lots of gas, having poor appetite, denying vomiting, says had only small bowel movements yesterday. no fever or chills. no chest pain or sob , no cough or phlegm Objective Physical Examination General Exam: Positive: Alert, Cooperative, No Acute Distress Eye Exam: Positive: Conjunctiva & lids normal, EOMI, PERRLA ENT Exam: Positive: Atraumatic, Mucous membr. moist/pink, Nares Patent, Pharynx Normal, Tongue Midline Neck Exam: Positive: Supple Chest Exam: Positive: Clear to auscultation, Normal air movement Heart Exam: Positive: Normal S1, Normal S2, Rate Normal Abdomen Exam: Positive: Normal bowel sounds, Other (still experiencing some pain to palpitation in LUQ), Soft, Tenderness Extremity Exam: Positive: Other (states pain in left ankle is improved from one day ago) Psych Exam: Positive: Mental status NL Vital Signs/I&O Vital Signs Date Time Temp Pulse Resp B/P Pulse Ox O2 Delivery O2 Flow Rate FiO2 05/18/16 07:42 79 136/82 05/18/16 06:00 97.3 18 97 Room Air I&O- Last 24 Hours up to 6 AM 05/18/16 06:00 Intake Total 1300 ml Output Total 0 ml Balance 1300 ml Laboratory Data Labs 24H Laboratory Tests 2 05/17/16 12:24: Bedside Glucose (Misc Panel) 136H 05/17/16 16:46: Bedside Glucose (Misc Panel) 257H 05/17/16 20:43: Bedside Glucose (Misc Panel) 83 05/18/16 05:39: Blood Urea Nitrogen 58#H, Creatinine 9.13H, Sodium Level 137, Potassium Level 5.0, Chloride Level 98, Carbon Dioxide Level 27, Calcium Level 8.5L, Aspartate Amino Transf (AST/SGOT) 16, Alanine Aminotransferase (ALT/SGPT) 26, Alkaline Phosphatase 79, Total Bilirubin 0.5, Total Protein 7.0, Albumin 2.5L, Albumin/ Globulin Ratio 0.56L, Anion Gap 12, Glomerular Filtration Rate 7.5L, Prothromb Time International Ratio 3.02, Prothrombin Time 31.3H 05/18/16 06:05: Bedside Glucose (Misc Panel) 171H CBC/BMP Laboratory Tests 05/18/16 05:39 Calcium Level 8.5 L, Aspartate Amino Transf (AST/SGOT) 16, Alanine Aminotransferase (ALT/SGPT) 26, Alkaline Phosphatase 79, Total Bilirubin 0.5, Total Protein 7.0, Albumin 2.5 L, Red Blood Count 2.91 L, Mean Corpuscular Volume 103.3 H, Mean Corpuscular Hemoglobin 32.9, Mean Corpuscular Hemoglobin Concent 31.8 L, Red Cell Distribution Width 13.0 FSBS Laboratory Tests Test 05/17/16 12:24 05/17/16 16:46 05/17/16 20:43 05/18/16 06:05 Range/Units Bedside Glucose (Misc Panel) 136 257 83 171 80-115 MG/DL Microbiology Microbiology 05/11/16 Blood Culture - Final, Complete Streptococcus Pneumoniae Strep Pneumoniae Antigen 05/11/16 Blood Culture - Final, Complete Streptococcus Pneumoniae Strep Pneumoniae Antigen 05/12/16 Gram Stain - Final, Complete 05/12/16 Sputum Culture - Final, Complete QUAN GARZA MD May 18, 2016 10:53
--- NOTE | 2016-05-18 11:56 | REP ---
Clinical: Abdominal pain and constipation. Technique: Upright and supine views of the abdomen and pelvis. Findings: The bowel gas pattern is relatively nonspecific. Moderate fecal stasis and possible constipation suggested without obvious bowel obstruction. An no free air to suggest perforation identified. No organomegaly. Skeletal structures stable. Impression: Possible fecal stasis and constipation. No evidence for bowel obstruction. Signed by Pito Allen MD 05/18/2016 11:46 A
[2016-05-18 14:00] VITALS: BP 133/68
[2016-05-18] MEDS ORDERED: GOLYTELY SOLN 4000 ML BTL PO ONE (16:00)
[2016-05-18] MEDS: WARFARIN SOD 2 MG TAB PO SCH (17:00)
[2016-05-18] MEDS ORDERED: BISACODYL 5 MG TAB PO SCH (21:00)
[2016-05-18 21:33] VITALS: BP 159/84
[2016-05-18] MEDS: LEVEMIR (INSULIN DETEMIR) 1 UNITS/0.01ML SC SCH (22:05)
[2016-05-19 06:16] LABS: MEAN CORPUSCULAR HEMOGLOBIN 32.5 pg (27.0-33.0); MEAN CORPUSCULAR HGB CONC 31.3 g/dl (32.0-36.5); MEAN CORPUSCULAR VOLUME 103.7 fl (80.0-96.0); RED CELL DISTRIBUTION WIDTH 14.1 % (11.5-14.5); WHITE BLOOD COUNT 8.7 K/mm3 (4.0-10.0)
[2016-05-19 06:25] VITALS: BP 146/88
[2016-05-19 06:28] LABS: INR 2.56
[2016-05-19 06:35] LABS: ALBUMIN 2.4 GM/DL (3.2-5.2); ALBUMIN/GLOBULIN RATIO 0.55 (1.00-1.93); BILIRUBIN,TOTAL 0.4 MG/DL (0.2-1.0); CALCIUM LEVEL 8.7 MG/DL (8.8-10.2); CREATININE FOR GFR 10.7 MG/DL (0.70-1.30); GLOMERULAR FILTRATION RATE 6.2 (>49); POTASSIUM SERUM 5.1 MEQ/L (3.5-5.1); TOTAL PROTEIN 6.8 GM/DL (6.4-8.2)
[2016-05-19] MEDS: GABAPENTIN 100 MG CAP PO SCH ×3 (06:40→21:56)
[2016-05-19] MEDS: METOPROLOL TART 50 MG TAB PO SCH ×2 (06:41→21:57)
[2016-05-19] MEDS: TAMSULOSIN 0.4 MG CAP PO SCH (06:41)
[2016-05-19] MEDS: LevoFLOXacin 250 MG TABLET PO SCH (06:42)
[2016-05-19] MEDS: (RENVELA) SEVELAMER **CARBONate** 800 MG TAB PO SCH ×3 (06:42→17:38)
[2016-05-19] MEDS: CALCIUM ACETATE 667 MG GELCAP PO SCH ×3 (06:42→17:38)
[2016-05-19] MEDS: ATORVASTATIN 20 MG TAB PO SCH (06:42)
[2016-05-19] MEDS: ASPIRIN 81 MG CHEW TABLET PO SCH (06:42)
[2016-05-19] MEDS: FEBUXOSTAT 40 MG TABLET (ULORIC) PO SCH (06:42)
[2016-05-19] MEDS: CYANOCOBALAMIN 500 MCG TAB PO SCH (06:45)
[2016-05-19] MEDS: SENOKOT S TAB PO SCH ×2 (06:47→21:00)
[2016-05-19] MEDS: ADVAIR DISKUS 250/50 INH PWD INH SCH ×2 (07:56→19:59)
[2016-05-19] MEDS: IPRATROPIUM 0.5MG/ALBUTEROL 2.5MG INH SOL UD 3ML (DUONEB)(J7620) NEB SCH ×4 (07:59→22:54)
[2016-05-19] MEDS: HumaLOG INSULIN (NovoLOG) PER UNIT SC SCH ×4 (08:28→21:00)
--- NOTE | 2016-05-19 08:47 | IPNPDOC ---
Assessment/Plan Date Seen The patient was seen on 05/19/16. Problems Problems: (1) Pneumonia Status: Acute Response to Treatment: Stable Problem Text: strep pneumoniae pneumonia recieved 3 days of zosyn and vancomycin pt currently on vancomycin in dialysis receiving levofloxacin Chest CT showed early infiltrate pt has also had positive blood cx for strep. pneumo (2) Abdominal pain Status: Acute Problem Text: Pt. states abdominal pain is much improved, last BM overnight on aggressive bowel regimen. d/c lactulose-continue Dulcolax and miralax KUB showed fecal retention and constipation, no evidence for obstruction CT abdomen/pelvis results back- r/o obstruction and abdominal wall hematoma, showed abdominal distention and moderate diffuse retained stool constipation Diffuse mural thickening seen within the bladder, may be secondary to cystitis and scarring. Also mild prostatic hypertrophy, bilateral renal cortical cyst, some esther hepatis nodes with largest being 10 mm not significantly changed. (3) Bacteremia due to Streptococcus pneumoniae Status: Acute Problem Text: recieced 3 days of zosyn and vancomycin vancomycin has been continued in dialysis receiving levofloxacin (4) ESRD (end stage renal disease) Status: Chronic Response to Treatment: Stable Problem Text: will have dialysis tomorrow on regular dialysis schedule now Nephrology consulted-appreciate their input (5) Atrial fibrillation Status: Chronic Response to Treatment: Stable Problem Text: Rate is currently controlled pts home Coumadin 7 mg increased to 8 mg and Metoprolol 50 mg Continue to monitor (6) HTN (hypertension) Status: Chronic Response to Treatment: Stable Problem Text: BP stable PT on home Metoprolol 50 mg (7) Foot pain Status: Chronic Response to Treatment: Stable Problem Text: Patient has not been cleared by PT to be d/c Foot x-ray negative for acute fractures or dislocation. less likely 2/2 gout- uric acid normal Pt has history of traumatic event to left foot- dropped a door on it- foot x- ray on admission negative for fracture or break No swelling over dorsum of foot is evidenced on bedside exam today. (8) Gout Status: Chronic Response to Treatment: Stable Problem Text: Continue pts home Uloric mediation (9) BPH (benign prostatic hyperplasia) Status: Acute Problem Text: continue home Flomax Plan / VTE VTE Prophylaxis Ordered?: Yes Subjective Review of Systems CC/HPI The patient is a 70-year-old male admitted with a reason for visit of Pleuritic Chest Pain. General: Denies: Chills, Fatigue, Malaise, Night Sweats Constitutional: Denies: Chills, Fever, Malaise, Night Sweats Eyes: Denies: Conjunctivae inflammation, Eyelid inflammation, Pain, Redness, Vision change ENT: Denies: Head Aches Skin: Denies: Jaundice, Lesions, Rash Pulmonary: Denies: Cough, Dyspnea, Pleuritic Chest Pain Cardiovascular: Denies: Chest Pain, Edema, Lt Headedness, Orthopnea, Palpitations, Paroxysmal Noc. Dyspnea Gastrointestinal: Reports: Abdominal Pain (diffuse), Denies: Nausea, Vomiting Genitourinary: Denies: Dysuria Neurological: Denies: Numbness, Weakness Psych: Reports: Mood Normal Objective Physical Examination General Exam: Positive: Alert, Cooperative, No Acute Distress Eye Exam: Positive: Conjunctiva & lids normal, EOMI, PERRLA ENT Exam: Positive: Atraumatic, Mucous membr. moist/pink, Nares Patent, Pharynx Normal, Tongue Midline Neck Exam: Positive: Supple Chest Exam: Positive: Clear to auscultation, Normal air movement Heart Exam: Positive: Normal S1, Normal S2, Rate Normal Abdomen Exam: Positive: Normal bowel sounds, Other ( some mild pain to palpitation in LUQ), Soft, Tenderness Extremity Exam: Positive: Other ( pain in left ankle is improved ) Psych Exam: Positive: Mental status NL Vital Signs/I&O Vital Signs Date Time Temp Pulse Resp B/P Pulse Ox O2 Delivery O2 Flow Rate FiO2 05/19/16 06:41 92 146/88 05/19/16 06:25 98.1 18 98 Room Air I&O- Last 24 Hours up to 6 AM 05/19/16 06:00 Intake Total 1800 ml Output Total 0 ml Balance 1800 ml Laboratory Data Labs 24H Laboratory Tests 2 05/18/16 12:00: Bedside Glucose (Misc Panel) 240H 05/18/16 16:41: Bedside Glucose (Misc Panel) 122H 05/19/16 05:32: Blood Urea Nitrogen 71H, Creatinine 10.70H, Sodium Level 137, Potassium Level 5.1, Chloride Level 98, Carbon Dioxide Level 27, Calcium Level 8.7L, Aspartate Amino Transf (AST/SGOT) 13L, Alanine Aminotransferase (ALT/SGPT) 24, Alkaline Phosphatase 80, Total Bilirubin 0.4, Total Protein 6.8, Albumin 2.4L, Albumin/ Globulin Ratio 0.55L, Anion Gap 12, Glomerular Filtration Rate 6.2L, Prothromb Time International Ratio 2.56, Prothrombin Time 27.6H CBC/BMP Laboratory Tests 05/19/16 05:32 Calcium Level 8.7 L, Aspartate Amino Transf (AST/SGOT) 13 L, Alanine Aminotransferase (ALT/SGPT) 24, Alkaline Phosphatase 80, Total Bilirubin 0.4, Total Protein 6.8, Albumin 2.4 L, Red Blood Count 2.83 L, Mean Corpuscular Volume 103.7 H, Mean Corpuscular Hemoglobin 32.5, Mean Corpuscular Hemoglobin Concent 31.3 L, Red Cell Distribution Width 14.1 FSBS Laboratory Tests Test 05/18/16 12:00 05/18/16 16:41 Range/Units Bedside Glucose (Misc Panel) 240 122 80-115 MG/DL Microbiology Microbiology 05/11/16 Blood Culture - Final, Complete Streptococcus Pneumoniae Strep Pneumoniae Antigen 05/11/16 Blood Culture - Final, Complete Streptococcus Pneumoniae Strep Pneumoniae Antigen 05/12/16 Gram Stain - Final, Complete 05/12/16 Sputum Culture - Final, Complete GME ATTESTATION GME ATTESTATION My preceptor for this patient encounter was physically present in the building during the encounter and was fully available. As needed, all aspects of the patient interview, examination, medical decision making process, and medical care plan development were reviewed and approved by the preceptor. Preceptor is aware and concurs with the plan as stated in the body of this note and will attest to such by his/her cosignature. LYNNE TINOCO DO May 19, 2016 08:47 LYNNE TINOCO DO May 19, 2016 08:47
--- NOTE | 2016-05-19 10:25 | IPN ---
DATE OF SERVICE: 05/17/2016 SUBJECTIVE: The patient was seen and examined at the bedside today in the morning and feels much better. His constipation is improved. He no longer has pain in his abdomen. He got hemodialysis done yesterday, he tolerated the hemodialysis well. His antibiotics have been changed to oral now. REVIEW OF SYSTEMS: The patient denies any fever, chills, rigors, headaches, nausea, vomiting, chest pain, shortness of breath. His pain in his abdomen is better. His constipation is improved. He is moving his bowels at this time. His left foot pain is also better. Rest of review of system is negative. OBJECTIVE: VITAL SIGNS: Temperature 97.6 degrees Fahrenheit, blood pressure 119/71, pulse is 98, respiratory rate of 18, saturating 97% on room air. INTAKE AND OUTPUT: Patient got hemodialysis done yesterday after filtration was 4 liter. Weight on the bed scale is 123.4 kg. PHYSICAL EXAMINATION: GENERAL: The patient is awake, alert, oriented times three, lying in bed, no apparent distress. HEAD AND NECK EXAMINATION: The patient has right eye blindness and cornea fibrosis. Mucous membranes are moist. Neck is supple. There is no jugular venous distention (JVD). CARDIOVASCULAR: S1, S2, irregular heart rate, otherwise no murmur, rub, and gallop. RESPIRATORY: Chest is clear to auscultation bilaterally. Bilateral equal air entry. No rales or rhonchi. ABDOMEN: Soft, positive bowel sounds, nontender. No ascites. No organomegaly. EXTREMITIES: No clubbing or cyanosis. Pulses at 2+. CENTRAL NERVOUS SYSTEM (MATERIAL ENGINEER): No focal neurological deficit. Power is 5/5 in all extremities. ARTERIOVENOUS (AV) ACCESS: The patient has a right forearm AV fistula with positive bruit. LABORATORY REVIEW: CBC showed WBC of 10.6 hemoglobin 9.7, platelets at 219. INR is 2.6. BMP showed sodium 139, potassium 4.6, chloride 99, bicarbonate 28, BUN 38 creatinine 6.8, calcium 8.7, albumin 2.4. CURRENT MEDICATIONS: The patient's current medications were all reviewed by me. His intravenous (IV) antibiotics have been stopped. He has started on Levaquin 250 mg by mouth every 48 hourly and he is on warfarin 7 mg by mouth daily which was changed today. ASSESSMENT: A 70-year-old male with past medical history of end-stage renal disease on hemodialysis, history of insulin dependent diabetes, eczema, gout, admitted this time with pleuritic chest pain. Later on he was found to have Streptococcus pneumoniae bacteremia, nephrology service following the patient for management of end-stage renal disease. PLAN: 1. End-stage renal disease. The patient's regular dialysis days are Thursday, Thursday, and Thursday. No urgent need for hemodialysis today. Hemodialysis will be done on Thursday. 2. Streptococcus pneumoniae bacteremia. Bacteria are sensitive for fluoroquinolones. His intravenous (IV) antibiotics have been stopped and he has been switched to oral levofloxacin. 3. Constipation. The patient's constipation is significantly better. He is getting Dulcolax suppositories and Lactulose 30 mL by mouth three times a day started today. 4. History of atrial fibrillation. Patient's international normalized ratio (INR) is therapeutic, but it was steadily going up so his Coumadin dose has been decreased to 7 mg daily by primary team. I agree with the current dose. MTDD
[2016-05-19] MEDS ORDERED: LIDOCAINE 1% SDV 5 ML VIAL SQ ONE (12:30)
[2016-05-19] MEDS ORDERED: HEPARIN 1,000 UNITS/ML 10ML VIAL (FOR RADIOLOGY& DIALYSIS ONLY) XX ONE (12:30)
[2016-05-19 14:00] VITALS: BP 130/84
[2016-05-19] MEDS: NEPHRO-VIT TAB (NEPHROCAPS) PO SCH (15:26)
[2016-05-19 16:22] VITALS: BP 138/82
[2016-05-19] MEDS ORDERED: ACETAMINOPHEN TAB 650MG DOSE (2X325MG) PO PRN (16:30)
[2016-05-19] MEDS: WARFARIN SOD 2 MG TAB PO SCH (17:37)
--- NOTE | 2016-05-19 18:40 | IPN ---
DATE: 05/19/2016 SUBJECTIVE: The patient was seen and examined at the bedside today morning. He reports that he is still having some pain abdomen, but he is moving his bowels and he got dialyzed yesterday. He tolerated the hemodialysis procedure well. REVIEW OF SYSTEMS: The patient denies any fevers, chills, rigors, headaches, nausea, vomiting, chest pain, shortness of breath. He does report pain abdomen. He denies any nausea, but he was constipated and he is being given lactulose and Dulcolax suppositories, and he reports that he has been moving his bowels. Rest of review of systems is negative. OBJECTIVE: VITAL SIGNS: Temperature is 97.3 degrees Fahrenheit, blood pressure is 133/78. Pulse is 81, respiratory rate of 18, saturating 97% on room air. INTAKE AND OUTPUT: There is no urine output recorded. Last hemodialysis was on 05/16, and four liters of ultrafiltration (UF) was done. PHYSICAL EXAMINATION: GENERAL: The patient is awake, alert, oriented times three, lying in bed in no apparent distress. HEAD/NECK: Extraocular muscles intact. 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 Mucous membranes are moist. Neck is supple. There is no jugular venous distention (JVD). CARDIOVASCULAR: S1, S2, irregular heart rate. No murmur, rub, or gallop. RESPIRATORY: Chest is clear to auscultation bilaterally. Bilateral equal air entry. No rales or rhonchi. ABDOMEN: Soft, mildly distended. He has umbilical hernia. Mild tenderness to deep palpation in the epigastric region. No organomegaly. EXTREMITIES: No clubbing or cyanosis. Pulses are 2+. CENTRAL NERVOUS SYSTEM (CBX OPERATOR): No focal neurological deficit. Power is 5/5 in all extremities. LABORATORY DATA: CBC showed WBC 9.2, hemoglobin 9.6, platelets are 226. INR is 3. BMP shows sodium 137, potassium 5, chloride 98, bicarbonate 27, BUN 58, creatinine 9.1, calcium 8.5, albumin 2.5. IMAGING: X-ray of the abdomen was done today which showed fecal stasis and possible constipation without bowel obstruction, and there was no free air in the abdomen. CURRENT MEDICATIONS: The patient's medications were all reviewed by me. He is on Dulcolax 10 mg by mouth twice a day. His lactulose has been stopped now. ASSESSMENT: A 70-year-old male with past medical history of end-stage renal disease on hemodialysis, history of diabetes, admitted this time with Streptococcus pneumoniae bacteremia and pneumonia. Nephrology service following the patient for management of end-stage renal disease. PLAN: 1. End-stage renal disease. The patient is being dialyzed according to his schedule of Thursday, Thursday, Thursday. Next hemodialysis session will be tomorrow. 2. Streptococcus pneumoniae bacteremia. His intravenous (IV) antibiotics have been stopped. He is currently on oral Levaquin. 3. Constipation. The patient continues to complain of pain abdomen. He was on lactulose which has been stopped. He is currently on Dulcolax. X-ray kidneys, ureter, bladder (KUB) shows persistent fecal stasis. No other complaints at this time. 4. Atrial fibrillation on anticoagulation. The patient's international normalized ratio (INR) is three at this time. His warfarin dose was already decreased to 7 mg daily. Continue the current dose at this time.
[2016-05-19] MEDS: LEVEMIR (INSULIN DETEMIR) 1 UNITS/0.01ML SC SCH (21:57)
[2016-05-19 22:00] VITALS: BP 124/73
[2016-05-20 06:00] VITALS: BP 116/58
[2016-05-20] MEDS: HumaLOG INSULIN (NovoLOG) PER UNIT SC SCH ×2 (07:30→12:41)
[2016-05-20] MEDS: ADVAIR DISKUS 250/50 INH PWD INH SCH (07:49)
[2016-05-20] MEDS: IPRATROPIUM 0.5MG/ALBUTEROL 2.5MG INH SOL UD 3ML (DUONEB)(J7620) NEB SCH ×2 (08:00→13:35)
[2016-05-20] MEDS: (RENVELA) SEVELAMER **CARBONate** 800 MG TAB PO SCH ×2 (08:34→12:40)
[2016-05-20] MEDS: CALCIUM ACETATE 667 MG GELCAP PO SCH ×2 (08:35→12:40)
[2016-05-20] MEDS: FEBUXOSTAT 40 MG TABLET (ULORIC) PO SCH (08:35)
[2016-05-20] MEDS: TAMSULOSIN 0.4 MG CAP PO SCH (08:35)
[2016-05-20] MEDS: CYANOCOBALAMIN 500 MCG TAB PO SCH (08:35)
[2016-05-20] MEDS: SENOKOT S TAB PO SCH (08:35)
[2016-05-20] MEDS: GABAPENTIN 100 MG CAP PO SCH (08:35)
[2016-05-20] MEDS: ATORVASTATIN 20 MG TAB PO SCH (08:35)
[2016-05-20] MEDS: NEPHRO-VIT TAB (NEPHROCAPS) PO SCH (08:36)
[2016-05-20] MEDS: ASPIRIN 81 MG CHEW TABLET PO SCH (08:36)
[2016-05-20 08:37] VITALS: BP 152/76
[2016-05-20] MEDS: METOPROLOL TART 50 MG TAB PO SCH (08:37)
[2016-05-20 09:06] LABS: BASO % 0.2 % (0.0-1.0); EOS # 0.2 K/mm3 (0.0-0.50); EOS % 2.8 % (0.0-3.0); LARGE UNSTAINED CELL # 0.3 K/mm3 (0.0-0.4); LYMPH # 0.9 K/mm3 (1.5-4.5); LYMPH % 11.2 % (24.0-44.0); MEAN CORPUSCULAR HEMOGLOBIN 32.5 pg (27.0-33.0); MEAN CORPUSCULAR HGB CONC 31.6 g/dl (32.0-36.5); MEAN CORPUSCULAR VOLUME 102.9 fl (80.0-96.0); MONO # 0.5 K/mm3 (0.0-0.8); MONO % 5.9 % (0.0-5.0); NEUTROPHILS # 6.4 K/mm3 (1.8-7.7); NEUTROPHILS % 76.8 % (36.0-66.0); PLATELET COUNT, AUTOMATED 294 k/mm3 (150-450); RED CELL DISTRIBUTION WIDTH 13.1 % (11.5-14.5); WHITE BLOOD COUNT 8.3 K/mm3 (4.0-10.0)
[2016-05-20 09:21] LABS: INR 2.61
--- NOTE | 2016-05-20 09:29 | IPN ---
DATE: 05/19/2016 SUBJECTIVE: The patient was seen and examined at the bedside today in the morning due to his hemodialysis procedure. He was tolerating the hemodialysis procedure well and he was given GoLYTELY yesterday for constipation and he reports that he had a very good bowel movement yesterday after taking GoLYTELY and his pain in the abdomen is significantly better. REVIEW OF SYSTEMS: The patient denies any fevers, chills, rigors, headache, nausea, vomiting, chest pain, shortness of breath. His pain in his abdomen is better and his constipation is significantly better after taking GoLYTELY. The rest of the review of system is negative. OBJECTIVE: VITAL SIGNS: Temperature is 98.1 degrees Fahrenheit, blood pressure 146/88, pulse is 92, respiratory rate of 18, saturating 98% in room air. Intake and output. There is no urine output recorded. The patient had three bowel movements yesterday. There is no bed scale weight available. GENERAL: The patient is awake, alert, oriented times three, laying in bed in no apparent distress. HEAD AND NECK: The patient has right eye blindness and corneal fibrosis on the right eye. Mucous membranes are moist. Neck is supple. There is no jugular venous distention. CARDIOVASCULAR: S1, S2 irregular heart rate, other no murmur, rub or gallop. RESPIRATORY: Chest is clear to auscultation bilaterally. Bilaterally clear air entry. No rales or rhonchi. ABDOMEN: Soft, positive bowel sounds, nontender, No ascites. No organomegaly. EXTREMITIES: No clubbing or cyanosis. Positive 2+. CENTRAL NERVOUS SYSTEM: No focal neurological deficit. Power is 5.5 in all extremities. AV access, the patient has a right forearm arteriovenous fistula which is being used for dialysis at this time. LAB REVIEW: CBC showed a WBC of 8.7, hemoglobin 9.2, platelets 243. CMP showed sodium 137, potassium 5.1, chloride 98, bicarbonate 27, BUN 71, creatinine 10.7, calcium 8.7, albumin 2.4. CURRENT MEDICATIONS: The patient's medications are all reviewed by me. His Dulcolax was stopped yesterday and MiraLAX was also stopped. He was given GoLYTELY 2 liters yesterday. There is no other change in the medications in the medications at this time. ASSESSMENT: 71-year-old male with a past medical history of endstage renal disease on hemodialysis, history of insulin dependent diabetes, gout, admitted this time with pleuritic chest pain and later on found to have Streptococcus pneumonia bacteremia. Nephrology service is following the patient for management of endstage renal disease. PLAN: 1. Endstage renal disease: The patient is being dialyzed according to the schedule today. We shall try to an ultrafiltration of 5 liters as tolerated by his blood pressure. 2. Streptococcus pneumonia bacteremia: The patient is currently on oral Levaquin. The patient should continue at least two weeks of oral antibiotics. 3. Constipation: The patient was not responding well to Dulcolax and Lactulose. He was given GoLYTELY 2 liters by mouth yesterday and he reports significant improvement in constipation. 4. History of atrial fibrillation: His INR is therapeutic today. Continue current dose of warfarin 7 mg by mouth daily.
[2016-05-20 09:30] LABS: ALBUMIN 2.7 GM/DL (3.2-5.2); ALBUMIN/GLOBULIN RATIO 0.68 (1.00-1.93); BILIRUBIN,TOTAL 0.8 MG/DL (0.2-1.0); CALCIUM LEVEL 8.3 MG/DL (8.8-10.2); CREATININE FOR GFR 7.64 MG/DL (0.70-1.30); GLOMERULAR FILTRATION RATE 9.1 (>49); TOTAL PROTEIN 6.7 GM/DL (6.4-8.2)
[2016-05-20] MEDS ORDERED: LEVO250T24 PO (13:21)
[2016-05-20 14:00] VITALS: BP 124/98
--- NOTE | 2016-05-20 23:19 | IPN ---
DATE: 05/20/2016 SUBJECTIVE: The patient was seen and examined at the bedside. He did not have any active complaints. His pain in abdomen is improved. He tolerated the hemodialysis procedure well yesterday. He denies any fevers or chills. REVIEW OF SYSTEMS: The patient denies any fever, chills, rigors, headache, nausea, vomiting, chest pain, shortness of breath. His pain in abdomen is significantly better. He does report some pain in both sides of the ribs because of coughing. The rest of the review of system is negative. OBJECTIVE: VITAL SIGNS: Temperature is 96.7 degrees Fahrenheit. Blood pressure is 124/98, pulse is 100, respiratory rate of 20. Saturating 97% on room air. Intake and output: The patient got hemodialysis done yesterday. Ultrafiltration was 4.5 liter. PHYSICAL EXAMINATION: GENERAL: The patient is awake, alert, oriented times three. Laying in bed. No apparent distress. PHYSICAL EXAMINATION: HEAD/NECK: The patient has right eye blindness. Mucous membranes are moist. Neck is supple. There is no JVD. CARDIOVASCULAR: S1, S2, irregular heart rate. No murmur, rub or gallop. RESPIRATORY: Chest is clear to auscultation bilaterally. Bilateral equal air entry. No rales or rhonchi. ABDOMEN: Soft. Positive bowel sounds. Nontender. No ascites. No organomegaly. EXTREMITIES: No clubbing or cyanosis. Pulses are 2+. CENTRAL NERVOUS SYSTEM: There is no focal neurological deficit. Power is 5/5 in all extremities. LAB REVIEW: CBC showed a WBC of 8.3, hemoglobin 10.3, platelets of 294. BMP showed sodium 141, potassium 5, chloride 97, bicarbonate 31, BUN 45, creatinine 7.6. MICROBIOLOGY: Repeat blood cultures sent today are pending. CURRENT MEDICATIONS: The patient's current medications are all reviewed by me. There is no change in the medications today as compared with yesterday. ASSESSMENT: 71-year-old male with past medical history of end-stage renal disease, on hemodialysis, history of insulin dependent diabetes, gout admitted at this time with pleuritic chest pain and later on found to have Streptococcus pneumoniae bacteremia. Nephrology service following the patient for management of end-stage renal disease. PLAN: 1. End-stage renal disease. The patient was dialyzed according to his regular schedule yesterday. 2. Hemodialysis will be tomorrow. 3. Streptococcus pneumonia bacteremia. The patient is on oral Levaquin which covers Streptococcus pneumoniae as well however, we shall give him IV vancomycin for one more week with hemodialysis as well. 4. Constipation. The patient's constipation is relieved after taking Golytely. He his having normal bowel movements at this time. 5. History of atrial fibrillation. The patient's INR is therapeutic at this time. Continue current dose of Coumadin 7 mg by mouth daily. 6. Discharge planning. Is okay to discharge the patient from nephrology standpoint. He can continue another week of Levaquin and vancomycin as outpatient. Next hemodialysis session will be tomorrow as outpatient. Plan of care was discussed with Dr. Emily Dorantes, the hospitalist taking care of this patient.
== END 2016-05-20 14:32 | disposition home or self-care (01) | DRG 193 ==
LOC: M ED 18:58 → M ED INP 05-12 00:24 → M PCU 05-12 03:14 → M MSPAV 05-14 12:46
PROVIDERS: ADMIT Internal Medicine; ATTEND Internal Medicine
PROC: 5A1D00Z (ICD-10-PCS; principal; 2016-05-12)
DX: J18.9 Pneumonia, unspecified organism (principal); N18.6 End stage renal disease; R78.81 Bacteremia; I12.0 Hypertensive chronic kidney disease with stage 5 chronic kidney disease or end stage renal disease; J06.9 Acute upper respiratory infection, unspecified; R09.1 Pleurisy; H54.41 Blindness, right eye, normal vision left eye; B95.3 Streptococcus pneumoniae as the cause of diseases classified elsewhere; M10.9 Gout, unspecified; E11.9 Type 2 diabetes mellitus without complications; N40.0 Benign prostatic hyperplasia without lower urinary tract symptoms; K59.00 Constipation, unspecified; J45.909 Unspecified asthma, uncomplicated; M79.672 Pain in left foot; I48.91 Unspecified atrial fibrillation; E87.5 Hyperkalemia; Z99.2 Dependence on renal dialysis; Z79.82 Long term (current) use of aspirin; Z79.01 Long term (current) use of anticoagulants; Z79.899 Other long term (current) drug therapy; Z79.4 Long term (current) use of insulin; Z95.0 Presence of cardiac pacemaker; Z87.891 Personal history of nicotine dependence

== ENCOUNTER 2016-07-16 11:35 | Inpatient (IN) | payer MEDICARE, MEDICAID ==
[~2016-07-16] VITALS: Ht 190.5 cm; Wt 120.3 kg
[~2016-07-16 11:35] MED LIST changes: +ALBU17IN INH; +ASPI81CH PO; +ATOR40TA PO; +CALC1CAP PO; +FEBU40TA PO; +FLOM5CAP PO; +GABA-279 PO; +INSUDET SC; +INSUH10VL SC; +LEVO250T24 PO; +METO50TA2 PO; +NEPHTAB PO; +NITR4TASL SL; +RENV2TAB PO; +VITA100066 PO; +VITA500T3 PO; +WARF-60 PO; +WARF4TAB52 PO
[2016-07-16] MEDS ORDERED: CINA30TA PO (12:46)
[2016-07-16] MEDS ORDERED: METO-346 (12:46)
[2016-07-16] MEDS ORDERED: ATOR1TAB21 PO (12:46)
[2016-07-16 13:06] LABS: MEAN CORPUSCULAR HEMOGLOBIN 33.8 pg (27.0-33.0); MEAN CORPUSCULAR VOLUME 102.4 fl (80.0-96.0); PLATELET COUNT, AUTOMATED 101 k/mm3 (150-450); RED CELL DISTRIBUTION WIDTH 16.1 % (11.5-14.5); WHITE BLOOD COUNT 2.8 K/mm3 (4.0-10.0)
[2016-07-16 13:13] LABS: ALBUMIN 3.7 GM/DL (3.2-5.2); ALBUMIN/GLOBULIN RATIO 1.09 (1.00-1.93); BILIRUBIN,DIRECT 0.4 MG/DL (0.0-0.2); BILIRUBIN,TOTAL 1.3 MG/DL (0.2-1.0); CALCIUM LEVEL 8.2 MG/DL (8.8-10.2); CREATININE FOR GFR 5.17 MG/DL (0.70-1.30); GLOMERULAR FILTRATION RATE 14.4 (>49); POTASSIUM SERUM 3.9 MEQ/L (3.5-5.1); TOTAL PROTEIN 7.1 GM/DL (6.4-8.2)
--- NOTE | 2016-07-16 13:39 | REP ---
PORTABLE CHEST: AP portable view of the chest is performed and compared to prior study of 05/11/2016. There is cardiomegaly and pulmonary venous hypertension, which appears stable. There is no new infiltrate. The mediastinal silhouette is unchanged. There is a left single lead pacemaker. IMPRESSION: Cardiomegaly and pulmonary venous hypertension. No new infiltrate is seen. Signed by Sam Sharif MD 07/16/2016 05:23 P
[2016-07-16 13:58] LABS: ANISOCYTOSIS 1+; BANDS 3 % (< 11); BASOPHILS 2 % (0-4); EOSINOPHILS 5 % (0-5)
[2016-07-16] MEDS ORDERED: ONDANSETRON 4MG/2ML VIAL (J2405) IV PRN (16:15)
[2016-07-16] MEDS ORDERED: ACETAMINOPHEN TAB 650MG DOSE (2X325MG) PO PRN (16:15)
[2016-07-16] MEDS ORDERED: GLUCOSE 4 GM CHEW TABLET PO PRN (16:30)
[2016-07-16] MEDS ORDERED: DEXTROSE 50% 50 ML SYRINGE IV PRN (16:30)
[2016-07-16] MEDS ORDERED: GLUCAGON FOR INJ 1 MG VIAL (J1610) SC PRN (16:30)
[2016-07-16] MEDS ORDERED: ALBUTEROL SULFATE 2.5 MG/0.5 ML INH NEB SOLN INH PRN (16:30)
[2016-07-16] MEDS ORDERED: METO12TA PO (16:37)
[2016-07-16] MEDS ORDERED: COLC1TAB5 PO (16:37)
[2016-07-16] MEDS ORDERED: HYDR1CRE89 TOP (16:37)
[2016-07-16] MEDS ORDERED: RENATAB5 PO (16:37)
[2016-07-16] MEDS ORDERED: FLOM5CAP PO (16:37)
[2016-07-16] MEDS ORDERED: COUM1TAB17 PO (16:40)
[2016-07-16] MEDS: HumaLOG INSULIN (NovoLOG) PER UNIT SC SCH ×2 (17:30→21:00)
--- NOTE | 2016-07-16 17:37 | HPE ---
DATE OF ADMISSION: 07/16/2016 This is a patient of Dr. Robledo and Dr. Alvarez. CHIEF COMPLAINT: Coughing and diarrhea. SUMMARY OF PRESENTATION: This is a 71-year-old gentleman who was admitted and discharged from [facility] from May 12 to May 20 with a diagnosis of pneumonia. He says he has been coughing since that time. Cough has not really changed. He mainly came to the hospital today because of diarrhea. Every time he eats he has to have a bowel movement. He has also had incontinence and has been getting up at night to have bowel movements. He says he has been exposed to people who have a similar illness. He has also had nausea, though he denied vomiting to me. He has end-stage renal disease, on dialysis for five years. Dialysis days are Thursday, Thursday, Thursday. He is not complaining of pain, chest pain, or shortness of breath. PAST MEDICAL HISTORY: Notable for: 1. Asthma. 2. Benign prostatic hypertrophy (BPH). 3. End-stage renal disease, on hemodialysis Thursday, Thursday, Thursday. 4. Insulin-dependent diabetes. 5. Gout. 6. 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 7. Hypertension. 8. Hyperlipidemia. SURGICAL HISTORY: Notable for: 1. Arteriovenous (AV) fistula in the right arm. 2. Hernia repair. 3. Pacemaker. SOCIAL HISTORY: He quit smoking 40 years ago. Lives with his significant other in [place]. Walks with a cane. Denies any alcohol. No known drug allergies. MEDICATIONS AT HOME: Include the following: - albuterol as needed - aspirin 81 mg daily - atorvastatin 20 mg by mouth at bedtime - calcium acetate 1334 mg with meals - vitamin D supplement - Sensipar 30 mg daily - vitamin B12 supplement daily - Uloric 40 mg daily - Neurontin 100 mg by mouth daily - NovoLog insulin - Levemir 16 units subcutaneous at bedtime - metoprolol tartrate 12.5 mg twice a day - sublingual nitroglycerine - Advair 250/50 inhaled twice daily - Renvela 1600 mg with meals - Nephro-Martin one tablet daily REVIEW OF SYSTEMS: Notable for no abdominal pain, loose stools, incontinence. No chest pain. No shortness of breath. No orthopnea. No paroxysmal nocturnal dyspnea. He does have impaired vision in his right eye and numbness in both feet , which he says is related to his diabetes. No history of seizures. Otherwise unremarkable. PHYSICAL EXAMINATION: Temperature is 98.2, pulse 92, respiratory rate 22, blood pressure 60492, 98% on room air. He has not had a bowel movement since he has been in emergency department. He is awake, appropriately interactive, pleasantly conversant. Left pupil is round, reactive, and anicteric. Right eye is cloudy. Mucous membranes are moist. Neck is thick, supple. Breathing is symmetrical. Inspiratory to expiratory (I-to-E) ratio is 1:4. Some scattered upper airway sounds are noted. Speaking in complete sentences. No accessory muscle use. Heart is distant sounding. Normal S1, S2. He is somewhat barrel chested. Capillary refill is less than 2 seconds. Abdomen is soft. Hypoactive bowel sounds. Nontender to deep palpation. No significant lower extremity edema. He is moving all four extremities. Cranial nerves II-XII, apart from his right eye, are grossly intact. Normal mood and affect. White cell count 2.8, hemoglobin 12.3, and platelets of 101. Baseline white cell count seems to be in the normal range. Baseline hemoglobin seems to be around 9. Baseline platelets are usually in the normal range. He has 39% neutrophils, 3 bands, 44 lymphocytes. BUN 18, creatinine 5.17, potassium 3.19. Lactic acid 1.1. Total bilirubin 1.3, direct bilirubin 0.4. Troponin I 0.19. BNP is 361. Insulin swab is negative. Chest x-ray showed no infiltrate. EKG shows atrial fibrillation. EKG from May 12, May 11 of last year, as well as June of 2014 all show atrial fibrillation, so this is not a new finding. ASSESSMENT: This is a 71-year-old who presents in the setting of end-stage renal disease with acute diarrhea. Patient will require 2-midnight hospital stay for further diagnosis, workup, and treatment. PLAN: 1. Diarrhea. I suspect the patient has norovirus, although he has recently been treated for pneumonia. Possibility of Clostridium (C) difficile does occur to me , although his white cell count is not elevated; it is depressed, which would be consistent with a viral illness. 2. Patient has had chronic cough. This has not changed. There are no significant findings on physical exam. Will make nebulizer available as well as an Acapella device. Will obtain sputum if it becomes available. There are no acute findings on chest x-ray. This can be monitored clinically. I do not believe there is a role for antibiotics at this point. 3. Patient has end-stage renal disease and is on hemodialysis. Will consult Dr. Alvarez. He is due for dialysis on Thursday. 4. Patient has insulin-dependent diabetes mellitus. Will be placed on sliding-scale insulin during his stay and carbohydrate-controlled diet. 5. Patient has gout. Will continue his controller medication. 6. Deep vein thrombosis (DVT) prophylaxis will be mechanical, as the patient has relative thrombocytopenia. 7. The patient is noted to have pancytopenia. Will repeat labs in the morning and order a peripheral smear. 8. Patient has chronic atrial fibrillation and minimally elevated troponin. MTDD
--- NOTE | 2016-07-16 18:07 | ECGEPIP ---
Stationary ECG Study [facility] - ED Test Date: 2016-07-16 Pat Name: KATHIA NAVARRETE Department: Room: [facility] Gender: M Mds Coordinator: parish : 1945 Requested By: Sangeetha Almaraz Order Number: [id number] Reading MD: Juarez Carranza Measurements Intervals Albert Rate: 96 P: AR: 0 QRS: 21 QRSD: 102 T: 48 QT: 361 QTc: 456 Interpretive Statements ATRIAL FIBRILLATION NSTTW ABNORMALITIES SIMILAR TO 05/12/16 Electronically Signed On 07-16-2016 17:41:35 EST by Juarez Carranza
[2016-07-16 18:59] VITALS: BP 132/77
[2016-07-16] MEDS: ALBUTEROL SULFATE 2.5 MG/0.5 ML INH NEB SOLN INH SCH (20:00)
[2016-07-16 20:03] LABS: REASON FOR REVIEW COMPREHENSIVE REVIEW
[2016-07-16] MEDS: COLCHICINE 0.6 MG TAB PO SCH (20:59)
[2016-07-16] MEDS: TAMSULOSIN 0.4 MG CAP PO SCH (21:00)
[2016-07-16] MEDS: METOPROLOL TART 25 MG TABLET PO SCH (21:01)
[2016-07-16] MEDS: CALCIUM ACETATE 667 MG GELCAP PO SCH (21:58)
[2016-07-16] MEDS: (RENVELA) SEVELAMER **CARBONate** 800 MG TAB PO SCH (21:58)
[2016-07-16 22:00] VITALS: BP 120/71
[2016-07-16] MEDS: ADVAIR DISKUS 250/50 INH PWD INH SCH (23:17)
[2016-07-17] MEDS: CEPACOL LOZENGE PO PRN ×2 (03:40→10:04)
[2016-07-17 06:00] VITALS: BP 119/74
[2016-07-17 06:56] LABS: BASO % 0.6 % (0.0-1.0); EOS # 0.2 K/mm3 (0.0-0.50); EOS % 6.2 % (0.0-3.0); LARGE UNSTAINED CELL # 0.2 K/mm3 (0.0-0.4); LARGE UNSTAINED CELL % 7.5 % (0.0-4.0); LYMPH # 1.1 K/mm3 (1.5-4.5); LYMPH % 38.1 % (24.0-44.0); MEAN CORPUSCULAR HEMOGLOBIN 32.4 pg (27.0-33.0); MEAN CORPUSCULAR HGB CONC 31.9 g/dl (32.0-36.5); MEAN CORPUSCULAR VOLUME 101.6 fl (80.0-96.0); MONO # 0.3 K/mm3 (0.0-0.8); MONO % 11.2 % (0.0-5.0); NEUTROPHILS % 36.4 % (36.0-66.0); RED CELL DISTRIBUTION WIDTH 15.9 % (11.5-14.5); WHITE BLOOD COUNT 2.9 K/mm3 (4.0-10.0)
[2016-07-17 07:02] LABS: ALBUMIN/GLOBULIN RATIO 0.94 (1.00-1.93); ALKALINE PHOSPHATASE 68 U/L (45-117); ALT/SGPT 26 U/L (12-78); ANION GAP 10 MEQ/L (8-16); AST/SGOT 29 U/L (15-37); BLOOD UREA NITROGEN 30 MG/DL (7-18); CALCIUM LEVEL 7.2 MG/DL (8.8-10.2); CARBON DIOXIDE LEVEL 29 MEQ/L (21-32); CHLORIDE LEVEL 101 MEQ/L (98-107); CREATININE FOR GFR 7.73 MG/DL (0.70-1.30); GLUCOSE, FASTING 99 MG/DL (80-110); MAGNESIUM LEVEL 2.2 MG/DL (1.8-2.4); PHOSPHORUS LEVEL 3.7 MG/DL (2.5-4.9); POTASSIUM SERUM 4.5 MEQ/L (3.5-5.1); SODIUM LEVEL 140 MEQ/L (136-145); TOTAL PROTEIN 6.2 GM/DL (6.4-8.2)
[2016-07-17 07:28] LABS: PLATELET COUNT, AUTOMATED 96 k/mm3 (150-450)
[2016-07-17] MEDS: HumaLOG INSULIN (NovoLOG) PER UNIT SC SCH ×4 (07:30→20:40)
[2016-07-17] MEDS: ALBUTEROL SULFATE 2.5 MG/0.5 ML INH NEB SOLN INH SCH ×4 (07:37→20:00)
[2016-07-17] MEDS: ADVAIR DISKUS 250/50 INH PWD INH SCH ×2 (07:37→20:18)
[2016-07-17] MEDS: CINACALCET 30 MG TAB (SENSIPAR) PO SCH (10:03)
[2016-07-17] MEDS: (RENVELA) SEVELAMER **CARBONate** 800 MG TAB PO SCH ×3 (10:04→18:23)
[2016-07-17] MEDS: CALCIUM ACETATE 667 MG GELCAP PO SCH ×3 (10:04→18:23)
[2016-07-17] MEDS: ATORVASTATIN 20 MG TAB PO SCH (10:04)
[2016-07-17] MEDS: METOPROLOL TART 25 MG TABLET PO SCH ×2 (10:05→20:40)
[2016-07-17] MEDS: ASPIRIN 81 MG CHEW TABLET PO SCH (10:05)
[2016-07-17] MEDS: GABAPENTIN 100 MG CAP PO SCH (10:05)
[2016-07-17] MEDS: FEBUXOSTAT 40 MG TABLET (ULORIC) PO SCH (10:05)
[2016-07-17] MEDS: COLCHICINE 0.6 MG TAB PO SCH (10:05)
[2016-07-17] MEDS: NEPHRO-VIT TAB (NEPHROCAPS) PO SCH (10:05)
[2016-07-17] MEDS: CYANOCOBALAMIN 500 MCG TAB PO SCH (10:06)
--- NOTE | 2016-07-17 12:28 | CR ---
DATE OF CONSULTATION: 07/17/2016 Nephrology consultation for uJli Gomes MD Reason for consultation is to assist in the management of end-stage renal disease. HISTORY OF PRESENT ILLNESS: Mr. Lobo is a 71-year-old gentleman who was admitted last evening via emergency room due to diarrhea and persistent cough. He has history of pneumonia recently and was treated at that time. Patient did not feel good yesterday during dialysis and he came to emergency room after dialysis. His regular dialysis days are Thursday, Thursday and Thursday and last dialysis was performed on Thursday. PAST MEDICAL AND SURGICAL HISTORY: Significant for: 1. History of chronic obstructive pulmonary disease (COPD). 2. History of hypertension. 3. End-stage renal disease requiring maintenance hemodialysis. 4. Insulin-requiring diabetes. 5. Gout. 6. History of hyperlipidemia. 7. History of paroxysmal atrial fibrillation and status post pacemaker placement. 8. 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 Past surgical history is significant for AV fistula creation in right arm, hernia repair and pacemaker placement. PERSONAL AND SOCIAL HISTORY: Patient quit smoking about 40 years ago. He lives with significant other. Does not smoke and does not use any recreational drugs. MEDICATIONS: Home medications include: - aspirin 81 mg daily - Lipitor 20 mg daily - PhosLo two capsules three times a day with meals - vitamin D 1000 units daily - albuterol inhaler as needed - Sensipar 30 mg daily - vitamin B12 1000 mcg daily - Uloric 40 mg daily - Neurontin 100 mg daily - NovoLog insulin per sliding scale - Levemir insulin 16 units at bedtime - metoprolol 12.5 mg twice a day - Advair Diskus 250/50 twice a day - Renvela 1600 mg three times a day with meals - Nephro-Martin tablet daily ALLERGIES: Patient has NO KNOWN DRUG ALLERGIES. FAMILY HISTORY: There is no family history for end-stage renal disease. REVIEW OF SYSTEMS: Patient denies any fever or chills. He has loose stools for several days. He denies any rectal bleeding or black colored stools. He denies any vomiting. Ears, nose and throat are unremarkable. Cardiovascular system negative for dyspnea or chest pain. Respiratory system negative for hemoptysis or pleuritic type chest pain. He does have cough with minimal sputum production. Genitourinary () system is negative for dysuria or hematuria. Endocrine system is significant for secondary hyperparathyroidism and insulin-requiring diabetes. Neurological system is significant for history of peripheral neuropathy. Hematological system is significant for chronic anticoagulation. Psychosocial system is negative for depression or anxiety. Skin is negative for rash or ulcers. He has prior history of herpes zoster infection on the face, which led to blindness in his right eye. PHYSICAL EXAMINATION: Patient is awake and alert at the time of my visit, sitting at the edge of bed. Temperature is 98.8 degrees Fahrenheit, heart rate 80 per minute and respiratory rate 18 per minute. Blood pressure 119/74 mmHg and oxygen saturation 98%. Head is atraumatic. Right eye is blind. Left eye shows circular pupil and anicteric sclera. Neck is supple and without jugular venous distention (JVD) or thyroid enlargement. There is no audible carotid bruit. Heart sounds are irregular in rhythm. Lungs with bilateral scattered rhonchi. Abdomen is soft and nontender and without any palpable . Bowel sounds are normal. Extremities have no cyanosis or clubbing. Right arm AV fistula is patent. Neurologically, he is awake, alert and oriented times three. There is no focal deficit. LABORATORY DATA: His WBC count is 2.9, hemoglobin 10.6 and hematocrit 33.2. Sodium 140 and potassium 4.5. BUN 30 and creatinine 7.73. Calcium level is 7.2 and phosphorus 3.7. Total protein 6.2 and albumin 3.0. PROBLEMS: 1. End-stage renal disease. Patient had his regular hemodialysis yesterday. At this point, there is no need for urgent dialysis today. We will schedule his next dialysis tomorrow. 2. Diarrhea. His stool has tested negative for Clostridium (C) difficile and stool panel was negative by polymerase chain reaction (PCR). Stool lactoferrin was also negative. No antibiotics are indicated. 3. Cough. Chest x-ray did not show any acute infiltrate. Most likely, he has bronchitis. Should be treated symptomatically and I would recommend to avoid antibiotics due to recent history of antibiotic use and risk of C difficile colitis. 4. Hypophosphatemia and phosphorus level is slightly low. I will cut back on his Renvela dose to 800 mg three times a day. We will continue with calcium acetate due to hypocalcemia. 5. Anemia. His anemia is stable and does not need any urgent transfusion. We will monitor closely and treat accordingly. 6. Hypertension. Blood pressure control is optimal at this point and he is on minimal antihypertensive medications. 7. Diabetes. Patient should remain on his insulin coverage and Levemir insulin. Thank you for involving me in the care of Mr. Lobo. I will follow him along with you.
[2016-07-17 14:00] VITALS: BP 108/68
--- NOTE | 2016-07-17 14:25 | IPNPDOC ---
Text Note Date of Service The patient was seen on 07/17/16. NOTE Subjective: Patient is a 71 year old -Hungarian male with a PMHx of Asthma, BPH, ESRD on HD (MWF), IDDM2, Gout, Right eye blindness 2/2 HSV, HTN, DLP who presented to the ED with complaints of cough and mainly diarrhea. He notes that he was here in 05/12 to 05/20 for pneumonia and since that point has continued to cough. He reports that his diarrhea has been persistent for a a few days. he notes that he has periods of incontinence. He was admitted for diarrhea. Patient was seen and examined at the bedside. Currently he notes that he continues to have diarrhea. No other complaints. Objective: Vitals (See below) General: Lying in bed, no acute distress, comfortable, AAOx3 HEENT: NC, AT CVS: RRR, +S1S2 Lungs: Fair air entry b/l, -w/r/r Abdomen: Soft, ND, NT, +BSx4 Extremities: +PPx4, - Edema, - Calf tenderness Assessment and plan: 1. Diarrhea - possibly 2/2 gastroenteritis - Presented with dairreha for a few days, no fevers recorded - Physical unrevealing - GI panel has been negative - Will check stool electrolytes and calculate Stool AG gap - Will ensure adequate hydration / volume status 2. Chronic cough, possibly 2/2 allergies - Presented with cough since his last admission - Physical reveals clear lung mello - CXR 07/16: cardiomegaly and pulmonary venous hypertension, no infiltrate - Will check IgE level - c/w Acapella - c/w Albuterol PRN 3. Pancytopenia - reportedly 2/2 viral infection - Counts remain stable 4. Elevated troponin - likely 2/2 ESRD - Counts have been stable 5. ESRD on HD (MWF) - Has not had any events with HD on Thursday - Next session for Thursday - Dr. Alvarez (Nephrology) following 6. Chronic atrial fibrillation - rate controlled with metoprolol - c/w ASA 7. IDDM2 - c/w ISS 8. Gout - c/w colchicine 9. DVT prophylaxis - c/w SCDs VS,Fishbone, I+O VS, Fishbone, I+O Laboratory Tests 07/17/16 06:16 Calcium Level 7.2 L, Phosphorus Level 3.7, Aspartate Amino Transf (AST/SGOT) 29 , Alanine Aminotransferase (ALT/SGPT) 26, Total Creatine Kinase 144, Alkaline Phosphatase 68, Total Bilirubin 1.0, Total Protein 6.2 L, Albumin 3.0 L, Red Blood Count 3.27 L, Mean Corpuscular Volume 101.6 H, Mean Corpuscular Hemoglobin 32.4, Mean Corpuscular Hemoglobin Concent 31.9 L, Red Cell Distribution Width 15.9 H, Neutrophils (%) (Auto) 36.4, Lymphocytes (%) (Auto) 38.1, Monocytes (%) (Auto) 11.2 H, Eosinophils (%) (Auto) 6.2 H, Basophils (%) ( Auto) 0.6, Neutrophils # (Auto) 1.0 L, Lymphocytes # (Auto) 1.1 L, Monocytes # ( Auto) 0.3, Eosinophils # (Auto) 0.2, Basophils # (Auto) 0.0 Vital Signs Date Time Temp Pulse Resp B/P Pulse Ox O2 Delivery O2 Flow Rate FiO2 07/17/16 11:27 Room Air 07/17/16 10:05 80 119/74 07/17/16 06:00 98.8 18 98 I&O- Last 24 Hours up to 6 AM 07/17/16 05:59 Intake Total 360 ml Output Total 100 ml Balance 260 ml SAKINA PALOMO MD Jul 17, 2016 14:25
[2016-07-17] MEDS: guaiFENesin DM *SUGAR FREE* 5ML**DIABETIC TUSSIN DM PO PRN (14:28)
[2016-07-17 16:00] VITALS: BP 109/73
[2016-07-17] MEDS: TAMSULOSIN 0.4 MG CAP PO SCH (20:40)
[2016-07-17 22:00] VITALS: BP 109/73
[2016-07-18 06:00] VITALS: BP 128/74
[2016-07-18] MEDS: (RENVELA) SEVELAMER **CARBONate** 800 MG TAB PO SCH ×3 (06:15→17:25)
[2016-07-18] MEDS: CYANOCOBALAMIN 500 MCG TAB PO SCH (06:15)
[2016-07-18] MEDS: FEBUXOSTAT 40 MG TABLET (ULORIC) PO SCH (06:15)
[2016-07-18] MEDS: CINACALCET 30 MG TAB (SENSIPAR) PO SCH (06:15)
[2016-07-18] MEDS: METOPROLOL TART 25 MG TABLET PO SCH ×2 (06:16→21:27)
[2016-07-18] MEDS: ASPIRIN 81 MG CHEW TABLET PO SCH (06:16)
[2016-07-18] MEDS: ATORVASTATIN 20 MG TAB PO SCH (06:16)
[2016-07-18] MEDS: NEPHRO-VIT TAB (NEPHROCAPS) PO SCH (06:21)
[2016-07-18] MEDS: ADVAIR DISKUS 250/50 INH PWD INH SCH ×2 (07:08→20:01)
[2016-07-18] MEDS: ALBUTEROL SULFATE 2.5 MG/0.5 ML INH NEB SOLN INH SCH ×4 (07:09→20:00)
[2016-07-18 07:12] LABS: BASO % 0.3 % (0.0-1.0); EOS # 0.2 K/mm3 (0.0-0.50); EOS % 5.9 % (0.0-3.0); LARGE UNSTAINED CELL # 0.2 K/mm3 (0.0-0.4); LARGE UNSTAINED CELL % 6.1 % (0.0-4.0); LYMPH # 1.8 K/mm3 (1.5-4.5); LYMPH % 48.5 % (24.0-44.0); MEAN CORPUSCULAR HEMOGLOBIN 32.5 pg (27.0-33.0); MEAN CORPUSCULAR HGB CONC 31.7 g/dl (32.0-36.5); MEAN CORPUSCULAR VOLUME 102.6 fl (80.0-96.0); MONO # 0.3 K/mm3 (0.0-0.8); MONO % 7.2 % (0.0-5.0); NEUTROPHILS # 1.2 K/mm3 (1.8-7.7); NEUTROPHILS % 32.1 % (36.0-66.0); RED CELL DISTRIBUTION WIDTH 15.7 % (11.5-14.5); WHITE BLOOD COUNT 3.6 K/mm3 (4.0-10.0)
[2016-07-18 07:13] LABS: PLATELET COUNT, AUTOMATED 99 k/mm3 (150-450)
[2016-07-18 07:16] LABS: ALBUMIN 3.2 GM/DL (3.2-5.2); ALBUMIN/GLOBULIN RATIO 0.86 (1.00-1.93); BILIRUBIN,TOTAL 0.9 MG/DL (0.2-1.0); CALCIUM LEVEL 7.7 MG/DL (8.8-10.2); CREATININE FOR GFR 10.2 MG/DL (0.70-1.30); GLOMERULAR FILTRATION RATE 6.6 (>49); MAGNESIUM LEVEL 2.2 MG/DL (1.8-2.4); PHOSPHORUS LEVEL 4.3 MG/DL (2.5-4.9); POTASSIUM SERUM 4.6 MEQ/L (3.5-5.1); TOTAL PROTEIN 6.9 GM/DL (6.4-8.2)
[2016-07-18] MEDS: HumaLOG INSULIN (NovoLOG) PER UNIT SC SCH ×4 (07:20→21:28)
[2016-07-18] MEDS: guaiFENesin DM *SUGAR FREE* 5ML**DIABETIC TUSSIN DM PO PRN (08:47)
[2016-07-18] MEDS: CALCIUM ACETATE 667 MG GELCAP PO SCH ×3 (08:47→17:25)
[2016-07-18] MEDS ORDERED: HEPARIN 1,000 UNITS/ML 10ML VIAL (FOR RADIOLOGY& DIALYSIS ONLY) IV ONE ×2 (10:45)
--- NOTE | 2016-07-18 10:59 | IPNPDOC ---
Text Note Date of Service The patient was seen on 07/18/16. NOTE Subjective: Patient is a 71 year old -[place] male with a PMHx of Asthma, BPH, ESRD on HD (MWF), IDDM2, Gout, Right eye blindness 2/2 HSV, HTN, DLP who presented to the ED with complaints of cough and mainly diarrhea. He notes that he was here in 05/12 to 05/20 for pneumonia and since that point has continued to cough. He reports that his diarrhea has been persistent for a a few days. he notes that he has periods of incontinence. He was admitted for diarrhea. Patient was seen and examined at the bedside. He notes that his last BM was yesterday at 6PM. Has not had any further episodes since then. He does note, that his stool was still loose at that time. Objective: Vitals (See below) General: Lying in bed, no acute distress, comfortable, AAOx3 HEENT: NC, AT CVS: RRR, +S1S2 Lungs: Fair air entry b/l, -w/r/r Abdomen: Soft, ND, NT, +BSx4 Extremities: +PPx4, - Edema, - Calf tenderness Assessment and plan: 1. Diarrhea - possibly 2/2 gastroenteritis - Presented with diarrhea for a few days, no fevers recorded - Physical unrevealing - GI panel has been negative, Lactoferrin negative - Stool electrolytes to calculate Stool AG gap remain pending - Will ensure adequate hydration / volume status 2. Chronic cough, possibly 2/2 allergies - Presented with cough since his last admission - Physical reveals clear lung mello - CXR 07/16: cardiomegaly and pulmonary venous hypertension, no infiltrate - Elevated IgE level - Will check for Aspergillosis antibodies - Started Loratadine - c/w Acapella - c/w Albuterol PRN 3. Pancytopenia - reportedly 2/2 viral infection - Counts remain stable 4. Elevated troponin - likely 2/2 ESRD - Counts have been stable 5. ESRD on HD (MWF) - Has not had any events with HD on Thursday - Next session today - Dr. Alvarez (Nephrology) following 6. Chronic atrial fibrillation - rate controlled with metoprolol - c/w ASA 7. IDDM2 - c/w ISS 8. Gout - c/w colchicine 9. DVT prophylaxis - c/w SCDs VS,Fishbone, I+O VS, Genae, I+O Laboratory Tests 07/18/16 06:22 Calcium Level 7.7 L, Phosphorus Level 4.3, Aspartate Amino Transf (AST/SGOT) 25 , Alanine Aminotransferase (ALT/SGPT) 24, Alkaline Phosphatase 73, Total Bilirubin 0.9, Total Protein 6.9, Albumin 3.2, Red Blood Count 3.47 L, Mean Corpuscular Volume 102.6 H, Mean Corpuscular Hemoglobin 32.5, Mean Corpuscular Hemoglobin Concent 31.7 L, Red Cell Distribution Width 15.7 H, Neutrophils (%) ( Auto) 32.1 L, Lymphocytes (%) (Auto) 48.5 H, Monocytes (%) (Auto) 7.2 H, Eosinophils (%) (Auto) 5.9 H, Basophils (%) (Auto) 0.3, Neutrophils # (Auto) 1.2 L, Lymphocytes # (Auto) 1.8, Monocytes # (Auto) 0.3, Eosinophils # (Auto) 0.2, Basophils # (Auto) 0.0 Vital Signs Date Time Temp Pulse Resp B/P Pulse Ox O2 Delivery O2 Flow Rate FiO2 07/18/16 08:00 Room Air 07/18/16 06:16 77 128/74 07/18/16 06:00 98.3 16 96 I&O- Last 24 Hours up to 6 AM 07/18/16 06:00 Intake Total 1080 ml Balance 1080 ml SAKINA PALOMO MD Jul 18, 2016 10:59
[2016-07-18] MEDS: LORATADINE 5 MG HALF-TAB PO SCH (14:36)
[2016-07-18 15:09] VITALS: BP 135/75
--- NOTE | 2016-07-18 20:41 | IPN ---
DATE: 07/18/2016 Mr. Lobo is seen this morning on his bedside during hemodialysis. He is feeling better but continues to have some cough. He denies any nausea or vomiting. He has no fever or chills. PHYSICAL EXAMINATION Temperature is 98.3 degrees Fahrenheit, heart rate 76 per minute and respiratory rate 16 per minute. Blood pressure 128/74 mmHg and oxygen saturation 96% on room air. His right eye is blind. Left pupil is circular and sclera is anicteric. Head is atraumatic. Ears, nose and throat are unremarkable. Heart sounds are regular. Lungs with scattered rhonchi bilaterally. Abdomen is soft and nontender and without palpable organomegaly. Bowel sounds are normal. Extremities have no cyanosis or clubbing. Left arm AV fistula is functioning well. Neurologically, he is awake, alert and oriented times three. There is no focal deficit. Skin has no rash or ulcers. Today's laboratories show WBC count 3.6, hemoglobin 11.3 and hematocrit 35.6. Sodium 140 and potassium 4.6. BUN 42 and creatinine 10.20. PROBLEMS: 1. End-stage renal disease. The patient is being dialyzed today. He is tolerating his dialysis treatment well. We are removing about 2.5 liters of fluid, which he is tolerating well so far. His electrolytes are within normal range. 2. Anemia. His anemia is mild and stable. No intervention is indicated. 3. Hypertension. Blood pressure control is optimal at this point. No changes in antihypertensives is needed. 4. Diarrhea. His diarrhea seems to have improved. His stool tested negative for Clostridium (C) difficile and for lactoferrin. 5. Cough, probably allergic type of cough. His immunoglobulin E level is quite elevated at 2330. The patient is being treated with Claritin 5 mg daily. He also receiving cough syrup and bronchodilators. 6. Diabetes. Diabetes has been well controlled on current regimen. No changes are needed. DISPOSITION: From renal standpoint, the patient can be discharged to home tomorrow and followup as an outpatient.
[2016-07-18] MEDS: TAMSULOSIN 0.4 MG CAP PO SCH (21:27)
[2016-07-18 22:00] VITALS: BP 113/81
[2016-07-19 06:00] VITALS: BP 121/66
[2016-07-19 07:05] LABS: ALBUMIN/GLOBULIN RATIO 0.88 (1.00-1.93); BILIRUBIN,TOTAL 0.8 MG/DL (0.2-1.0); CALCIUM LEVEL 7.4 MG/DL (8.8-10.2); CREATININE FOR GFR 7.12 MG/DL (0.70-1.30); GLOMERULAR FILTRATION RATE 9.9 (>49); MAGNESIUM LEVEL 2.1 MG/DL (1.8-2.4); PHOSPHORUS LEVEL 3.9 MG/DL (2.5-4.9); POTASSIUM SERUM 3.9 MEQ/L (3.5-5.1); TOTAL PROTEIN 6.4 GM/DL (6.4-8.2)
[2016-07-19 07:22] LABS: MEAN CORPUSCULAR HEMOGLOBIN 31.9 pg (27.0-33.0); MEAN CORPUSCULAR HGB CONC 31.4 g/dl (32.0-36.5); MEAN CORPUSCULAR VOLUME 101.6 fl (80.0-96.0); PLATELET COUNT, AUTOMATED 118 k/mm3 (150-450); RED CELL DISTRIBUTION WIDTH 15.8 % (11.5-14.5); WHITE BLOOD COUNT 3.2 K/mm3 (4.0-10.0)
[2016-07-19] MEDS: HumaLOG INSULIN (NovoLOG) PER UNIT SC SCH (07:30)
[2016-07-19] MEDS: ALBUTEROL SULFATE 2.5 MG/0.5 ML INH NEB SOLN INH SCH (08:00)
[2016-07-19] MEDS: ADVAIR DISKUS 250/50 INH PWD INH SCH (08:06)
[2016-07-19 08:11] LABS: EOSINOPHILS 2 % (0-5)
[2016-07-19 08:12] LABS: ANISOCYTOSIS 1+; HYPOCHROMASIA 1+
[2016-07-19 08:13] LABS: OVALOCYTES 1+
[2016-07-19 09:23] VITALS: BP 120/66
[2016-07-19] MEDS: FEBUXOSTAT 40 MG TABLET (ULORIC) PO SCH (09:26)
[2016-07-19] MEDS: ASPIRIN 81 MG CHEW TABLET PO SCH (09:27)
[2016-07-19] MEDS: (RENVELA) SEVELAMER **CARBONate** 800 MG TAB PO SCH (09:27)
[2016-07-19] MEDS: CALCIUM ACETATE 667 MG GELCAP PO SCH (09:27)
[2016-07-19] MEDS: GABAPENTIN 100 MG CAP PO SCH (09:27)
[2016-07-19] MEDS: ATORVASTATIN 20 MG TAB PO SCH (09:27)
[2016-07-19] MEDS: LORATADINE 5 MG HALF-TAB PO SCH (09:27)
[2016-07-19] MEDS: NEPHRO-VIT TAB (NEPHROCAPS) PO SCH (09:27)
[2016-07-19] MEDS: CYANOCOBALAMIN 500 MCG TAB PO SCH (09:27)
[2016-07-19] MEDS: CINACALCET 30 MG TAB (SENSIPAR) PO SCH (09:27)
[2016-07-19 09:28] VITALS: BP 120/66
[2016-07-19] MEDS: METOPROLOL TART 25 MG TABLET PO SCH (09:28)
[2016-07-19 10:03] LABS: INR 1.13
[2016-07-19] MEDS ORDERED: CLAR1TAB2 PO (10:05)
[2016-07-19] MEDS ORDERED: PROT20TA11 PO (10:05)
--- NOTE | 2016-07-19 20:15 | DSES ---
DATE OF ADMISSION: 07/16/2016 DATE OF DISCHARGE: 07/19/2016 PRIMARY CARE PHYSICIAN: Dr. Jayy Alvarez. REFERRING PHYSICIAN: None. CONSULTING PHYSICIAN: Dr. Jayy Alvarez. CONDITION ON DISCHARGE: Stable. FINAL DIAGNOSES: 1. Diarrhea possibly secondary to gastroenteritis. 2. Chronic cough possibly secondary to allergies. PROCEDURES: None. HISTORY OF PRESENT ILLNESS: The patient is a 71-year-old male with a past medical history of asthma, benign prostatic hypertrophy (BPH), end-stage renal disease on hemodialysis Thursday, Thursday, Thursday, insulin-dependent diabetes mellitus type 2, gout, right eye blindness secondary to herpes simplex virus, hypertension, dyslipidemia, who presented to the emergency department with complaints of cough and diarrhea. He notes that he was here on 05/12 to 05/20 for pneumonia, and since that point, he has continued to have a chronic cough. He reports that he has been having diarrhea that has been persistent for the last few days. He notes that he has been having periods of incontinence. He was admitted for the diarrhea. HOSPITAL COURSE: 1. Diarrhea possibly secondary to gastroenteritis. Presented with diarrhea for a few days. No fevers were recorded. Physical exam was unrevealing. Gastrointestinal (GI) panel has been negative. Lactoferrin has been negative. Stool electrolytes have been ordered to calculate stool anion gap and osmolar gap. However, the patient's stools have become formed before the studies could be completed. The patient with adequate hydration and volume status. 2. Chronic cough possibly secondary to allergies. Present with cough since the last admission. Physical revealed clear lung mello. Chest x-ray on 07/16 revealed cardiomegaly and pulmonary venous hypertension. No infiltrates. Elevated IgE. Will check for aspergillosis antibody. Started on loratadine. Continue with Acapella and albuterol as needed. 3. Pancytopenia, reported to be secondary to viral infection. Counts remain stable. 4. Elevated troponin, likely secondary to end-stage renal disease. Counts have been stable. 5. End-stage renal disease on hemodialysis Thursday, Thursday, Thursday. Has not had any events with hemodialysis on Thursday. Next session was on Thursday without any issue. Dr. Alvarez from nephrology has been following. We appreciate his input. 6. Chronic atrial fibrillation, rate controlled with metoprolol. Has been on anticoagulation with Coumadin, which has been held because his international normalized ratio (INR) was supratherapeutic. However, upon discharge, he has been restarted on Coumadin at 5 mg. 7. Insulin-dependent diabetes mellitus type 2. Continue with insulin sliding scale. 8. Gout. Continue with colchicine. 9. Deep venous thrombosis (DVT) prophylaxis. Continue with sleeve compression devices. DISCHARGE MEDICATIONS: The patient will be discharged home with the following medication list: - albuterol two puffs inhaled every four hours as needed for shortness of breath - aspirin 81 mg by mouth daily - atorvastatin 20 mg by mouth daily - calcium acetate 1334 mg by mouth with meals - vitamin D 1000 mg by mouth daily - Sensipar 30 mg by mouth daily - colchicine 0.6 mg by mouth twice a day - vitamin B12 1000 mcg by mouth daily - Uloric 40 mg by mouth daily - gabapentin 100 mg by mouth four times a week - hydrocortisone topically applied twice a day as needed for leg sores - NovoLog insulin one dose subcutaneously with meals - Levemir 16 units to be taken at night - metoprolol tartrate 25 mg by mouth twice a day - nitroglycerin 0.4 mg sublingual every five minutes as needed for angina - [place]-Martin one tablet by mouth weekly - Advair 250/50 one puff inhaled twice a day - sevelamer 1600 mg by mouth with meals - tamsulosin one capsule by mouth at bedtime - vitamin B complex one tablet by mouth daily - warfarin 5 mg by mouth at bedtime NEW MEDICATIONS PRESCRIBED: - loratadine 5 mg by mouth daily - Protonix 20 mg by mouth daily DISCHARGE INSTRUCTIONS: The patient has been advised to followup with his primary care provider, nephrology, and pulmonology within the next one week. He has been advised to be compliant with treatment plan and medications. He has also been given a prescription to check his INR on Thursday. The patient was advised to be compliant with the treatment plan and medication, and return to the emergency room if he experiences any problems. TIME SPENT ON DISCHARGE: 35 minutes.
--- NOTE | 2016-07-20 09:50 | IPN ---
DATE OF SERVICE: 07/19/2016 SUBJECTIVE: The patient was seen and examined at the bedside today in the morning. He reports that he still has cough, but it is significantly better. He tolerated the hemodialysis procedure well yesterday. He denies any active complains at this time. REVIEW OF SYSTEMS: The patient denies any fever, chills, rigors, headache, nausea, vomiting, chest pain, or shortness of breath. He reports a mild cough. He denies any constipation, pain abdomen, diarrhea. The rest of review of system is negative. OBJECTIVE: VITAL SIGNS: Temperature is 95.9 degrees Fahrenheit. Blood pressure is 120/66, pulse is 98, respiratory rate of 20. Saturating 97% on room air. INTAKE AND OUTPUT: Hemodialysis done yesterday. Ultrafiltration with hemodialysis was 3 liters. Weight on the bed scale is 120.3 kg. PHYSICAL EXAMINATION: GENERAL: The patient is awake, alert, oriented times three. Sitting in the bed. No apparent distress. HEAD AND NECK EXAMINATION: The patient has blindness in the right eye. Left pupil is reactive to light. Sclera is clear. Neck is supple. There is no jugular venous distention (JVD). CARDIOVASCULAR: S1, S2, regular rate. No murmur, rub, and gallop. RESPIRATORY: Mild expiratory rhonchi at the bases. Otherwise, there were no rales. Bilateral equal air entry. ABDOMEN: Soft. Positive bowel sounds. Nontender. No ascites. No organomegaly. EXTREMITIES: No clubbing or cyanosis. Pulses are 2+. CENTRAL NERVOUS SYSTEM: No focal neurological deficit, except right eye blindness. Power is 5/5 in all extremities. AV ACCESS: The patient has a right forearm AV fistula with positive thrill and bruit. PSYCHIATRIC: Normal mood and affect. LABORATORY REVIEW: CBC showed a WBC of 3.2, hemoglobin 10.9, platelets are 118. BMP showed sodium 141, potassium 3.9, chloride 103, bicarbonate 28, BUN 26, creatinine 7.1, calcium is 7.4, albumin 3. CURRENT MEDICATIONS: The patient's medications were all reviewed by me. There is no change in the medications today as compared with yesterday. He has been started on Claritin 5 mg by mouth daily. ASSESSMENT: A 71-year-old male with past medical history of end-stage renal disease, on hemodialysis, admitted this time with diarrhea and cough. PLAN: 1. End-stage renal disease. The patient's regular days of dialysis are Thursday, Thursday, Thursday. He was hemodialyzed yesterday. Next hemodialysis session will be on 07/21/2016. 2. Anemia in end-stage renal disease. The patient's hemoglobin is 10.9, acceptable at this time. The rest of the anemia management is as per outpatient anemia protocol. 3. Cough. Cough is most likely allergic in nature. His gram stain is negative so far. His immunoglobulin E (IgE) levels were high. He has been started on Claritin. His cough symptoms are improving. 4. Hypertension. Blood pressure is acceptable at this time. Continue current dose of metoprolol 12.5 mg by mouth twice a day. DISCHARGE PLANNING: It is okay to discharge the patient from nephrology standpoint. No urgent need of hemodialysis today. The next hemodialysis session will be on 07/21/2016.
== END 2016-07-19 11:40 | disposition home or self-care (01) | DRG 391 ==
LOC: M ED 14:18 → M ED INP 16:04 → M MS5PR 18:22
PROVIDERS: ADMIT Internal Medicine; ATTEND Internal Medicine
PROC: 5A1D60Z (ICD-10-PCS; principal; 2016-07-18)
DX: K52.9 Noninfective gastroenteritis and colitis, unspecified (principal); N18.6 End stage renal disease; I12.0 Hypertensive chronic kidney disease with stage 5 chronic kidney disease or end stage renal disease; D61.818 Other pancytopenia; N25.81 Secondary hyperparathyroidism of renal origin; J44.9 Chronic obstructive pulmonary disease, unspecified; N40.0 Benign prostatic hyperplasia without lower urinary tract symptoms; E11.42 Type 2 diabetes mellitus with diabetic polyneuropathy; M10.9 Gout, unspecified; H54.41 Blindness, right eye, normal vision left eye; D64.9 Anemia, unspecified; J30.2 Other seasonal allergic rhinitis; I48.2 Chronic atrial fibrillation; Z95.0 Presence of cardiac pacemaker; Z87.891 Personal history of nicotine dependence; Z79.82 Long term (current) use of aspirin; Z99.2 Dependence on renal dialysis; Z79.4 Long term (current) use of insulin; Z79.51 Long term (current) use of inhaled steroids; Z79.899 Other long term (current) drug therapy; Z79.01 Long term (current) use of anticoagulants

== ENCOUNTER → 2016-09-11 | Outpatient (REF) | payer MEDICARE, MEDICAID ==
[~2016-09-11] MED LIST changes: +ATOR1TAB21 PO; +CINA30TA PO; +CLAR1TAB2 PO; +COLC1TAB5 PO; +COUM1TAB17 PO; +HYDR1CRE89 TOP; +METO-346; +METO12TA PO; +PROT20TA11 PO; +RENATAB5 PO
== END ==
LOC: M LAB REF 11:47
PROVIDERS: ATTEND Internal Medicine Nephrology
DX: A04.7 Enterocolitis due to Clostridium difficile (principal)

== ENCOUNTER → 2017-02-10 | Outpatient (CLI) | payer MEDICARE, MEDICAID ==
[~2017-02-10] MED LIST changes: -ATOR40TA PO; +ATOR40TA75 PO; +COLC1TAB14 PO; -COLC1TAB5 PO; +LEVO250T12 PO; -LEVO250T24 PO; -METO12TA PO; +METO1TAB87 PO; -METO50TA2 PO; +METO50TA7 PO
--- NOTE | 2017-02-10 14:52 | REP ---
Right wrist four views: There is no calcification of the triangular fibrocartilage or other evidence of chondrocalcinosis. There is calcified vascular atheroma. There are surgical clips in the soft tissues anterolateral to the distal radius. Mineralization and joint spaces are normal. Left wrist four views: I suspect there is a fracture at the base of the ulnar styloid, age indeterminate. There are faintly visible tiny calcifications in the triangular fibrocartilage compatible with chondrocalcinosis. Mineralization joint spaces are otherwise unremarkable. There is calcified vascular atheroma. Signed by Sam Luis MD 02/10/2017 02:44 P
== END ==
LOC: M RAD 13:46
PROVIDERS: ATTEND Internal Medicine Nephrology
DX: M11.232 Other chondrocalcinosis, left wrist (principal)

== ENCOUNTER → 2017-03-02 | Outpatient (CLI) | payer MEDICARE, MEDICAID | LOC: M SMT 11:48 | PROVIDERS: ATTEND Internal Medicine Rheumatology | DX: M25.531 Pain in right wrist (principal) ==

== ENCOUNTER 2017-03-03 07:52 | Day surgery (SDC) | payer MEDICARE, MEDICAID ==
[~2017-03-03] VITALS: Ht 185.4 cm; Wt 122.5 kg
[~2017-03-03 07:52] MED LIST changes: +ACETAMINOPHEN 325 MG TAB PO PRN; +BSS with VANC/TOB/EPI for EYE CASES IR ONE; +CYCLOPENTOLATE 2% OPHTH SOLN 2ML BTL OS ONE; +LIDOCAINE 3.5 % 1ML OPHTH TOPICAL GEL OU ONE; +OFLOXACIN 0.3 % (OCUFLOX) OPTH SOL 5ML OS ONE; +PHENYLEPHRINE 2.5% OPHTH SOL 2ML OS ONE; +PROPARACAINE 0.5% OPHTH SOL 15ML OS PRN; +TROPICAMIDE 1% OPHTH SOLN 2ML OS ONE
[2017-03-03] MEDS ORDERED: LIDOCAINE 1% SDV 5 ML VIAL SQ ONE (08:00)
[2017-03-03] MEDS ORDERED: LR 500 ML IV ONE (08:00)
[2017-03-03] MEDS ORDERED: DEXTROSE 50% 50 ML SYRINGE IV ONE (08:45)
[2017-03-03] MEDS ORDERED: MIDAZOLAM INJ 2 MG/2 ML VIAL (J2250) As Ordered ONE (09:07)
[2017-03-03 09:12] LABS: INR 1.38
[2017-03-03] MEDS ORDERED: LIDOCAINE 1% SDV 5 ML VIAL As Ordered ONE (09:12)
[2017-03-03] MEDS ORDERED: POVIDONE-IODINE 5% OPHTH PREP SOL 30ML As Ordered ONE (09:12)
[2017-03-03] MEDS ORDERED: HEALON DUET (HEALON 10MG/ML 0.55ML & HEALON ENDOCOAT 30MG/ML 0.85ML) As Ordered ONE (09:13)
[2017-03-03] MEDS ORDERED: mitoMYcin 0.2 MG/VIAL KIT FOR OPHTHALMIC USE (J7315 PER 0.2MG) As Ordered ONE (09:13)
[2017-03-03] MEDS ORDERED: TOBRADEX OPHTH OINT 3.5 GM As Ordered ONE (09:13)
[2017-03-03] MEDS ORDERED: CEFUROXIME 1MG/0.1ML INTRACAMERAL INJ As Ordered ONE (09:13)
[2017-03-03] MEDS ORDERED: fentaNYL 100 MCG/2 ML INJECTION (J3010) As Ordered ONE (09:43)
[2017-03-03] MEDS ORDERED: KETOROLAC 0.5% OPHTH SOLN OS ONE (10:15)
[2017-03-03] MEDS ORDERED: TRIMETHOBENZAMIDE 300 MG CAP PO PRN (10:15)
[2017-03-03] MEDS ORDERED: AcetaZOLAMIDE 500 MG ER CAP PO ONE (10:15)
[2017-03-03 10:30] VITALS: BP 132/70
[2017-03-03] MEDS ORDERED: LR 500 ML IV SCH (10:30)
[2017-03-03] MEDS ORDERED: ACETAMINOPHEN TAB 650MG DOSE (2X325MG) PO PRN (10:30)
[2017-03-03] MEDS ORDERED: ONDANSETRON 4MG/2ML VIAL (J2405) IV PRN (10:30)
--- NOTE | 2017-03-03 18:10 | RO ---
DATE OF PROCEDURE: 03/03/2017 PREOPERATIVE DIAGNOSES: Cataract left eye. Glaucoma left eye. Miosis. POSTOPERATIVE DIAGNOSES: Cataract left eye. Glaucoma left eye. Miosis. PROCEDURE: Phacoemulsification with intraocular lens implantation model Hoya 250 power 16.5 diopters along with placement of a Malyugin ring 7 7 mm and endocyclophotocoagulation and iStent Glaukos. SURGEON: Dr. Ron Andrade PASTRY DECORATOR: COMPLICATIONS: None. DESCRIPTION OF PROCEDURE: Procedure in detail: The patient was brought to the operating room and laid in supine position. The left eye was prepped and draped in a sterile fashion for ophthalmic solution, and a lid speculum was placed. Following which a sideport incision was made, and EndoCoat was injected into the anterior chamber. A temporal clear corneal incision was made with a 2.5 mm keratome and Malyugin 7 mm ring was introduced because of the myosis and inadequate dilation. Following which capsulorrhexis was carried out followed by hydrodissection and phacoemulsification within the capsular bag. Corticol material was then aspirated using irrigation aspiration cannula. Patient was extremely agitated throughout the surgery. It was very difficult for him to hold still anyway. Following aspiration of the cortical material Healon was then placed in the capsular bag and intraocular lens inserted. Healon was then placed in the ciliary sulcus and with the help of the video screen and the help of the EndoProbe, endocyclophotocoagulation was done for 280 degrees at 0.25 mW. Good results were noted, as noted by shrinking of the ciliary processes on the video screen. Following which the Healon was placed into the anterior chamber. Patients head was rotated away from the surgeon and microscope towards the surgery under high magnification with the help of the Goniolens, iStent was inserted. The time of the retraction of the introducer patient made some movement and it was noted that the iStent was not in good position. An attempt was made to reinsert it and the patient moved. Patient was unable to hold still at this point. It was decided to just stop the procedure. Viscoelastic was aspirated. Wound was hydrated. Intracameral cefuroxime was given. Lid speculum removed. The patient returned to the recovery room in stable condition. Case discussed in detail with patient and family.
== END 2017-03-03 10:50 | disposition home or self-care (01) ==
LOC: M SDC 07:52
PROVIDERS: ATTEND Ophthalmology
DX: H26.9 Unspecified cataract (principal); H57.03 Miosis; H40.9 Unspecified glaucoma; E78.5 Hyperlipidemia, unspecified; I12.0 Hypertensive chronic kidney disease with stage 5 chronic kidney disease or end stage renal disease; I48.91 Unspecified atrial fibrillation; I50.32 Chronic diastolic (congestive) heart failure; J45.40 Moderate persistent asthma, uncomplicated; N18.6 End stage renal disease; E10.40 Type 1 diabetes mellitus with diabetic neuropathy, unspecified; G47.33 Obstructive sleep apnea (adult) (pediatric); I71.3 Abdominal aortic aneurysm, ruptured; E66.9 Obesity, unspecified; R07.9 Chest pain, unspecified; I25.10 Atherosclerotic heart disease of native coronary artery without angina pectoris; I25.2 Old myocardial infarction; M10.051 Idiopathic gout, right hip; R29.898 Other symptoms and signs involving the musculoskeletal system; R06.83 Snoring; N40.0 Benign prostatic hyperplasia without lower urinary tract symptoms; Z79.899 Other long term (current) drug therapy; Z79.82 Long term (current) use of aspirin; Z79.01 Long term (current) use of anticoagulants; Z79.4 Long term (current) use of insulin; Z95.0 Presence of cardiac pacemaker; Z99.2 Dependence on renal dialysis
CPT/HCPCS: 36415; 66711; 66982; 85610; C1783; J2250; J3010; V2632

== ENCOUNTER → 2017-03-09 | Outpatient (REF) | payer MEDICARE, MEDICAID ==
[~2017-03-09] MED LIST changes: -ACETAMINOPHEN 325 MG TAB PO PRN; -BSS with VANC/TOB/EPI for EYE CASES IR ONE; -CYCLOPENTOLATE 2% OPHTH SOLN 2ML BTL OS ONE; -LIDOCAINE 3.5 % 1ML OPHTH TOPICAL GEL OU ONE; -OFLOXACIN 0.3 % (OCUFLOX) OPTH SOL 5ML OS ONE; -PHENYLEPHRINE 2.5% OPHTH SOL 2ML OS ONE; -PROPARACAINE 0.5% OPHTH SOL 15ML OS PRN; -TROPICAMIDE 1% OPHTH SOLN 2ML OS ONE
== END ==
LOC: M LAB REF 17:08
PROVIDERS: ATTEND Internal Medicine Nephrology
DX: M10.9 Gout, unspecified (principal); M25.532 Pain in left wrist

== ENCOUNTER 2017-07-30 10:19 | Emergency (ER) | payer MEDICARE, OTHER, MEDICAID | END 2017-07-30 14:00 | disposition home or self-care (01) | LOC: M ED 10:19 | DX: T82.838A Hemorrhage due to vascular prosthetic devices, implants and grafts, initial encounter (principal); Y92.89 Other specified places as the place of occurrence of the external cause; E11.9 Type 2 diabetes mellitus without complications; F41.9 Anxiety disorder, unspecified; N40.0 Benign prostatic hyperplasia without lower urinary tract symptoms; N18.6 End stage renal disease; Z95.0 Presence of cardiac pacemaker; Z99.2 Dependence on renal dialysis | CPT/HCPCS: 99284 ==

== ENCOUNTER 2017-08-10 06:33 | Inpatient (IN) | payer MEDICARE, OTHER ==
[2017-08-10 08:16] LABS: INR 1.93; PROTHROMBIN TIME 22.7 SECONDS (12.4-14.5)
[2017-08-10] MEDS: DOCUSATE SODIUM 100 MG CAP PO ×3 (09:00→20:18)
[2017-08-10 09:13] LABS: HEMATOCRIT 27.8 % (42.0-52.0); HEMOGLOBIN 8.4 g/dl (14.0-18.0); MEAN CORPUSCULAR HGB CONC 30.2 g/dl (32.0-36.5); MEAN CORPUSCULAR VOLUME 99.3 fl (80.0-96.0); PLATELET COUNT, AUTOMATED 217 10^3/uL (150-450); RED CELL DISTRIBUTION WIDTH 18.1 % (11.5-14.5); WHITE BLOOD COUNT 9.6 10^3/uL (4.0-10.0)
[2017-08-10 09:21] LABS: ANION GAP 10 MEQ/L (8-16); BLOOD UREA NITROGEN 60 MG/DL (7-18); CALCIUM LEVEL 9.2 MG/DL (8.8-10.2); CARBON DIOXIDE LEVEL 26 MEQ/L (21-32); CHLORIDE LEVEL 102 MEQ/L (98-107); GLOMERULAR FILTRATION RATE 7.3 (>42); GLUCOSE, FASTING 192 MG/DL (70-100); SODIUM LEVEL 138 MEQ/L (136-145)
[2017-08-10 09:34] LABS: CREATININE FOR GFR 9.23 MG/DL (0.70-1.30)
[2017-08-10 09:35] LABS: POTASSIUM SERUM 6.8 MEQ/L (3.5-5.1)
[2017-08-10] MEDS ORDERED: ONDANSETRON 4MG/2ML VIAL (J2405) IV (10:15)
[2017-08-10] MEDS: SOD POLYSTYRENE SULFONATE SUSP 15 GM/60 ML UD PO (10:40)
[2017-08-10 13:52] LABS: IMMEDIATE SPIN CROSSMATCH 1 1
[2017-08-10] MEDS ORDERED: GLUCAGON FOR INJ 1 MG VIAL (J1610) SC (16:30)
[2017-08-10] MEDS ORDERED: DEXTROSE 50% 50 ML SYRINGE IV (16:30)
[2017-08-10] MEDS ORDERED: GLUCOSE 4 GM CHEW TABLET PO (16:30)
[2017-08-10] MEDS: HumaLOG INSULIN (NovoLOG) PER UNIT SC ×2 (18:13→20:18)
[2017-08-10 18:17] LABS: BEDSIDE GLUCOSE 142 MG/DL (83-110)
[2017-08-10] MEDS: ACETAMINOPHEN TAB 650MG DOSE (2X325MG) PO (20:18)
[2017-08-10 20:19] LABS: BEDSIDE GLUCOSE 190 MG/DL (83-110)
[2017-08-11 05:36] LABS: HEMATOCRIT 27.6 % (42.0-52.0); HEMOGLOBIN 8.6 g/dl (14.0-18.0); MEAN CORPUSCULAR HEMOGLOBIN 29.8 pg (27.0-33.0); MEAN CORPUSCULAR HGB CONC 31.2 g/dl (32.0-36.5); MEAN CORPUSCULAR VOLUME 95.5 fl (80.0-96.0); PLATELET COUNT, AUTOMATED 175 10^3/uL (150-450); RED BLOOD COUNT 2.89 10^6/uL (4.30-6.10); RED CELL DISTRIBUTION WIDTH 18.2 % (11.5-14.5); WHITE BLOOD COUNT 7.2 10^3/uL (4.0-10.0)
[2017-08-11 05:54] LABS: ANION GAP 3 MEQ/L (8-16); BLOOD UREA NITROGEN 31 MG/DL (7-18); CALCIUM LEVEL 8.7 MG/DL (8.8-10.2); CARBON DIOXIDE LEVEL 34 MEQ/L (21-32); CHLORIDE LEVEL 102 MEQ/L (98-107); CREATININE FOR GFR 6.11 MG/DL (0.70-1.30); GLOMERULAR FILTRATION RATE 11.8 (>42); GLUCOSE, FASTING 144 MG/DL (70-100); SODIUM LEVEL 139 MEQ/L (136-145)
[2017-08-11] MEDS ORDERED: NITROGLYCERIN 0.4 MG SUBL TABLET SL (07:45)
[2017-08-11] MEDS ORDERED: IPRATROPIUM 0.5MG/ALBUTEROL 2.5MG INH SOL UD 3ML (DUONEB)(J7620) NEB (08:00)
[2017-08-11] MEDS: IPRATROPIUM 0.5MG/ALBUTEROL 2.5MG INH SOL UD 3ML (DUONEB)(J7620) NEB ×3 (08:00→23:24)
[2017-08-11] MEDS: CYANOCOBALAMIN 500 MCG TAB PO (08:24)
[2017-08-11] MEDS: HumaLOG INSULIN (NovoLOG) PER UNIT SC ×4 (08:24→21:00)
[2017-08-11] MEDS: MIDODRINE 5 MG TAB PO ×3 (08:25→17:01)
[2017-08-11] MEDS: (RENVELA) SEVELAMER **CARBONate** 800 MG TAB PO ×4 (08:25→16:55)
[2017-08-11] MEDS: VITAMIN D 1,000 INTERNATIONAL UNITS TABLET PO (08:26)
[2017-08-11] MEDS: PANTOPRAZOLE 40MG TAB (PROTONIX) PO (08:26)
[2017-08-11] MEDS: METOPROLOL TART 25 MG TABLET PO ×2 (08:26→22:32)
[2017-08-11] MEDS: GABAPENTIN 100 MG CAP PO (08:26)
[2017-08-11] MEDS: ASPIRIN 81 MG ENTERIC TAB PO (08:26)
[2017-08-11] MEDS: DOCUSATE SODIUM 100 MG CAP PO ×2 (08:26→22:31)
[2017-08-11 08:39] LABS: INR 1.64; PROTHROMBIN TIME 19.8 SECONDS (12.4-14.5)
[2017-08-11] MEDS: MYCOPHENOLATE MOFETIL 250 MG CAP (J7517) PO ×2 (10:31→22:31)
[2017-08-11] MEDS: CINACALCET 30 MG TAB (SENSIPAR) PO (10:32)
[2017-08-11] MEDS: CALCIUM ACETATE 667 MG GELCAP PO ×5 (10:32→16:55)
[2017-08-11] MEDS: FEBUXOSTAT 40 MG TABLET (ULORIC) PO (10:32)
[2017-08-11] MEDS: NEPHRO-VIT TAB (NEPHROCAPS) PO (10:32)
[2017-08-11] MEDS: ADVAIR HFA 115/21MCG INHALER INH ×2 (12:00→19:55)
[2017-08-11 14:17] LABS: IMMEDIATE SPIN CROSSMATCH 1 1
[2017-08-11] MEDS: AQUAPHOR **100GM** OINT TOP (21:00)
[2017-08-11 21:06] LABS: BEDSIDE GLUCOSE 116 MG/DL (83-110)
[2017-08-11 21:06] LABS: BEDSIDE GLUCOSE 175 MG/DL (83-110)
[2017-08-11 21:07] LABS: BEDSIDE GLUCOSE 153 MG/DL (83-110)
[2017-08-11 21:09] LABS: ANION GAP 8 MEQ/L (8-16); BLOOD UREA NITROGEN 44 MG/DL (7-18); CALCIUM LEVEL 8.6 MG/DL (8.8-10.2); CARBON DIOXIDE LEVEL 29 MEQ/L (21-32); CHLORIDE LEVEL 101 MEQ/L (98-107); CK-MB VALUE MASS < 1.0 NG/ML (<3.6); CPK CREATINE PHOSPHOKINASE 31 U/L (39-308); CREATININE FOR GFR 7.22 MG/DL (0.70-1.30); GLOMERULAR FILTRATION RATE 9.7 (>42); GLUCOSE, FASTING 122 MG/DL (70-100); MAGNESIUM LEVEL 1.9 MG/DL (1.8-2.4); MB/CK RELATIVE INDEX 3.22 (< OR =4); POTASSIUM SERUM 4.5 MEQ/L (3.5-5.1); SODIUM LEVEL 138 MEQ/L (136-145); TROPONIN I 0.06 NG/ML (< 0.10)
[2017-08-11] MEDS: TAMSULOSIN 0.4 MG CAP PO (22:31)
[2017-08-11] MEDS: ATORVASTATIN 20 MG TAB PO (22:31)
[2017-08-11] MEDS: LEVEMIR (INSULIN DETEMIR) 1 UNITS/0.01ML SC (22:32)
[2017-08-12 06:10] LABS: HEMOGLOBIN 9.1 g/dl (14.0-18.0); MEAN CORPUSCULAR HEMOGLOBIN 29.7 pg (27.0-33.0); MEAN CORPUSCULAR HGB CONC 31.4 g/dl (32.0-36.5); MEAN CORPUSCULAR VOLUME 94.8 fl (80.0-96.0); PLATELET COUNT, AUTOMATED 187 10^3/uL (150-450); RED BLOOD COUNT 3.06 10^6/uL (4.30-6.10); RED CELL DISTRIBUTION WIDTH 18.9 % (11.5-14.5); WHITE BLOOD COUNT 7.4 10^3/uL (4.0-10.0)
[2017-08-12 06:23] LABS: ANION GAP 7 MEQ/L (8-16); BLOOD UREA NITROGEN 53 MG/DL (7-18); CALCIUM LEVEL 8.7 MG/DL (8.8-10.2); CARBON DIOXIDE LEVEL 29 MEQ/L (21-32); CHLORIDE LEVEL 101 MEQ/L (98-107); GLOMERULAR FILTRATION RATE 8.6 (>42); GLUCOSE, FASTING 124 MG/DL (70-100); POTASSIUM SERUM 4.2 MEQ/L (3.5-5.1); SODIUM LEVEL 137 MEQ/L (136-145)
[2017-08-12 06:29] LABS: INR 1.53; PROTHROMBIN TIME 18.8 SECONDS (12.4-14.5)
[2017-08-12 06:40] LABS: CREATININE FOR GFR 8.05 MG/DL (0.70-1.30)
[2017-08-12] MEDS: HumaLOG INSULIN (NovoLOG) PER UNIT SC ×4 (07:30→20:35)
[2017-08-12] MEDS: IPRATROPIUM 0.5MG/ALBUTEROL 2.5MG INH SOL UD 3ML (DUONEB)(J7620) NEB ×3 (08:00→23:45)
[2017-08-12] MEDS: CALCIUM ACETATE 667 MG GELCAP PO ×3 (08:00→17:55)
[2017-08-12] MEDS: (RENVELA) SEVELAMER **CARBONate** 800 MG TAB PO ×3 (08:00→17:55)
[2017-08-12] MEDS: ADVAIR HFA 115/21MCG INHALER INH ×2 (08:01→19:47)
[2017-08-12] MEDS: NEPHRO-VIT TAB (NEPHROCAPS) PO (08:39)
[2017-08-12] MEDS: PANTOPRAZOLE 40MG TAB (PROTONIX) PO (08:39)
[2017-08-12] MEDS: CINACALCET 30 MG TAB (SENSIPAR) PO (08:39)
[2017-08-12] MEDS: DOCUSATE SODIUM 100 MG CAP PO ×3 (08:39→20:35)
[2017-08-12] MEDS: FEBUXOSTAT 40 MG TABLET (ULORIC) PO ×2 (08:40→08:49)
[2017-08-12] MEDS: MYCOPHENOLATE MOFETIL 250 MG CAP (J7517) PO ×2 (08:40→20:34)
[2017-08-12] MEDS: CYANOCOBALAMIN 500 MCG TAB PO (08:40)
[2017-08-12] MEDS: ASPIRIN 81 MG ENTERIC TAB PO (08:40)
[2017-08-12] MEDS: VITAMIN D 1,000 INTERNATIONAL UNITS TABLET PO (08:40)
[2017-08-12] MEDS: MIDODRINE 5 MG TAB PO ×3 (08:40→16:02)
[2017-08-12] MEDS: METOPROLOL TART 25 MG TABLET PO ×2 (08:41→20:34)
[2017-08-12] MEDS: AQUAPHOR **100GM** OINT TOP ×3 (09:00→20:36)
[2017-08-12 16:50] LABS: BEDSIDE GLUCOSE 224 MG/DL (83-110)
[2017-08-12] MEDS: ATORVASTATIN 20 MG TAB PO (20:34)
[2017-08-12] MEDS: TAMSULOSIN 0.4 MG CAP PO (20:34)
[2017-08-12] MEDS: ACETAMINOPHEN TAB 650MG DOSE (2X325MG) PO (20:35)
[2017-08-12 20:47] LABS: BEDSIDE GLUCOSE 181 MG/DL (83-110)
[2017-08-12] MEDS ORDERED: DARBEPOETIN 100 MCG/0.5 ML *DIALYSIS* SYRINGE (J0882) IV (23:45)
[2017-08-13 07:23] LABS: HEMATOCRIT 28.5 % (42.0-52.0); HEMOGLOBIN 8.7 g/dl (14.0-18.0); MEAN CORPUSCULAR HEMOGLOBIN 29.6 pg (27.0-33.0); MEAN CORPUSCULAR HGB CONC 30.5 g/dl (32.0-36.5); MEAN CORPUSCULAR VOLUME 96.9 fl (80.0-96.0); PLATELET COUNT, AUTOMATED 176 10^3/uL (150-450); RED BLOOD COUNT 2.94 10^6/uL (4.30-6.10); RED CELL DISTRIBUTION WIDTH 18.8 % (11.5-14.5); WHITE BLOOD COUNT 7.7 10^3/uL (4.0-10.0)
[2017-08-13] MEDS: ADVAIR HFA 115/21MCG INHALER INH ×2 (07:27→19:44)
[2017-08-13] MEDS: IPRATROPIUM 0.5MG/ALBUTEROL 2.5MG INH SOL UD 3ML (DUONEB)(J7620) NEB ×3 (07:39→22:41)
[2017-08-13 07:43] LABS: ANION GAP 5 MEQ/L (8-16); BLOOD UREA NITROGEN 31 MG/DL (7-18); CALCIUM LEVEL 8.4 MG/DL (8.8-10.2); CARBON DIOXIDE LEVEL 32 MEQ/L (21-32); CHLORIDE LEVEL 105 MEQ/L (98-107); CREATININE FOR GFR 5.79 MG/DL (0.70-1.30); GLOMERULAR FILTRATION RATE 12.6 (>42); GLUCOSE, FASTING 146 MG/DL (70-100); INR 1.42; POTASSIUM SERUM 3.9 MEQ/L (3.5-5.1); PROTHROMBIN TIME 17.7 SECONDS (12.4-14.5); SODIUM LEVEL 142 MEQ/L (136-145)
[2017-08-13] MEDS: FEBUXOSTAT 40 MG TABLET (ULORIC) PO (09:00)
[2017-08-13] MEDS: ASPIRIN 81 MG ENTERIC TAB PO (09:04)
[2017-08-13] MEDS: PANTOPRAZOLE 40MG TAB (PROTONIX) PO (09:04)
[2017-08-13] MEDS: MYCOPHENOLATE MOFETIL 250 MG CAP (J7517) PO ×2 (09:04→20:37)
[2017-08-13] MEDS: CYANOCOBALAMIN 500 MCG TAB PO (09:04)
[2017-08-13] MEDS: DOCUSATE SODIUM 100 MG CAP PO ×2 (09:05→20:37)
[2017-08-13] MEDS: CINACALCET 30 MG TAB (SENSIPAR) PO (09:06)
[2017-08-13] MEDS: (RENVELA) SEVELAMER **CARBONate** 800 MG TAB PO ×3 (09:06→17:25)
[2017-08-13] MEDS: CALCIUM ACETATE 667 MG GELCAP PO ×3 (09:07→17:25)
[2017-08-13] MEDS: NEPHRO-VIT TAB (NEPHROCAPS) PO (09:07)
[2017-08-13] MEDS: MIDODRINE 5 MG TAB PO ×3 (09:07→15:09)
[2017-08-13] MEDS: VITAMIN D 1,000 INTERNATIONAL UNITS TABLET PO (09:08)
[2017-08-13] MEDS: GABAPENTIN 100 MG CAP PO (09:08)
[2017-08-13] MEDS: METOPROLOL TART 25 MG TABLET PO ×2 (09:09→20:37)
[2017-08-13] MEDS: HumaLOG INSULIN (NovoLOG) PER UNIT SC ×4 (09:10→20:19)
[2017-08-13] MEDS: AQUAPHOR **100GM** OINT TOP ×3 (09:14→20:37)
[2017-08-13] MEDS: ACETAMINOPHEN TAB 650MG DOSE (2X325MG) PO ×2 (09:22→20:36)
[2017-08-13 12:09] LABS: BEDSIDE GLUCOSE 218 MG/DL (83-110)
[2017-08-13] MEDS ORDERED: ISOVUE-300 61% 50ML VIAL (Q9967) As Ordered (13:46)
[2017-08-13] MEDS ORDERED: LIDOCAINE 2% MDV 20 ML VIAL As Ordered (13:46)
[2017-08-13 18:06] LABS: BEDSIDE GLUCOSE 118 MG/DL (83-110)
[2017-08-13 20:30] LABS: BEDSIDE GLUCOSE 215 MG/DL (83-110)
[2017-08-13] MEDS: TAMSULOSIN 0.4 MG CAP PO (20:36)
[2017-08-13] MEDS: ATORVASTATIN 20 MG TAB PO (20:37)
[2017-08-13] MEDS: LEVEMIR (INSULIN DETEMIR) 1 UNITS/0.01ML SC (20:37)
[2017-08-14] MEDS: CALCIUM ACETATE 667 MG GELCAP PO ×4 (06:12→16:33)
[2017-08-14] MEDS: (RENVELA) SEVELAMER **CARBONate** 800 MG TAB PO ×4 (06:13→16:33)
[2017-08-14] MEDS: HumaLOG INSULIN (NovoLOG) PER UNIT SC ×4 (06:15→20:23)
[2017-08-14 06:31] LABS: BEDSIDE GLUCOSE 65 MG/DL (83-110)
[2017-08-14 07:04] LABS: HEMATOCRIT 29.3 % (42.0-52.0); MEAN CORPUSCULAR HEMOGLOBIN 29.6 pg (27.0-33.0); MEAN CORPUSCULAR HGB CONC 30.7 g/dl (32.0-36.5); MEAN CORPUSCULAR VOLUME 96.4 fl (80.0-96.0); PLATELET COUNT, AUTOMATED 182 10^3/uL (150-450); RED BLOOD COUNT 3.04 10^6/uL (4.30-6.10); RED CELL DISTRIBUTION WIDTH 18.5 % (11.5-14.5); WHITE BLOOD COUNT 8.3 10^3/uL (4.0-10.0)
[2017-08-14 07:18] LABS: INR 1.49; PROTHROMBIN TIME 18.4 SECONDS (12.4-14.5)
[2017-08-14 07:33] LABS: ANION GAP 11 MEQ/L (8-16); BLOOD UREA NITROGEN 44 MG/DL (7-18); CALCIUM LEVEL 8.5 MG/DL (8.8-10.2); CARBON DIOXIDE LEVEL 26 MEQ/L (21-32); CHLORIDE LEVEL 103 MEQ/L (98-107); CREATININE FOR GFR 7.76 MG/DL (0.70-1.30); GLUCOSE, FASTING 96 MG/DL (70-100); POTASSIUM SERUM 4.2 MEQ/L (3.5-5.1); SODIUM LEVEL 140 MEQ/L (136-145)
[2017-08-14] MEDS: MIDODRINE 5 MG TAB PO ×3 (08:00→18:21)
[2017-08-14] MEDS: AQUAPHOR **100GM** OINT TOP ×4 (09:00→21:00)
[2017-08-14] MEDS: METOPROLOL TART 25 MG TABLET PO ×2 (09:00→20:33)
[2017-08-14] MEDS: DOCUSATE SODIUM 100 MG CAP PO ×2 (09:00→20:33)
[2017-08-14] MEDS: LIDOCAINE 1% SDV 5 ML VIAL SQ (10:15)
[2017-08-14] MEDS: IPRATROPIUM 0.5MG/ALBUTEROL 2.5MG INH SOL UD 3ML (DUONEB)(J7620) NEB ×3 (10:55→23:37)
[2017-08-14] MEDS: VITAMIN D 1,000 INTERNATIONAL UNITS TABLET PO (12:41)
[2017-08-14] MEDS: CINACALCET 30 MG TAB (SENSIPAR) PO (12:41)
[2017-08-14] MEDS: ASPIRIN 81 MG ENTERIC TAB PO (12:41)
[2017-08-14] MEDS: CYANOCOBALAMIN 500 MCG TAB PO (12:41)
[2017-08-14 12:43] LABS: BEDSIDE GLUCOSE 145 MG/DL (83-110)
[2017-08-14] MEDS: MYCOPHENOLATE MOFETIL 250 MG CAP (J7517) PO ×2 (12:51→20:33)
[2017-08-14] MEDS: NEPHRO-VIT TAB (NEPHROCAPS) PO (12:51)
[2017-08-14] MEDS: PANTOPRAZOLE 40MG TAB (PROTONIX) PO (12:51)
[2017-08-14] MEDS: FEBUXOSTAT 40 MG TABLET (ULORIC) PO (12:52)
[2017-08-14] MEDS: ADVAIR HFA 115/21MCG INHALER INH ×2 (13:34→20:45)
[2017-08-14 17:48] LABS: BEDSIDE GLUCOSE 205 MG/DL (83-110)
[2017-08-14] MEDS: ATORVASTATIN 20 MG TAB PO (20:33)
[2017-08-14] MEDS: TAMSULOSIN 0.4 MG CAP PO (20:33)
[2017-08-14] MEDS: ACETAMINOPHEN TAB 650MG DOSE (2X325MG) PO (20:34)
[2017-08-15 06:20] LABS: HEMATOCRIT 27.9 % (42.0-52.0); HEMOGLOBIN 8.5 g/dl (13.5-17.5); MEAN CORPUSCULAR HEMOGLOBIN 29.8 pg (27.0-33.0); MEAN CORPUSCULAR HGB CONC 30.5 g/dl (32.0-36.5); MEAN CORPUSCULAR VOLUME 97.9 fl (80.0-96.0); PLATELET COUNT, AUTOMATED 158 10^3/uL (150-450); RED BLOOD COUNT 2.85 10^6/uL (4.30-6.10); RED CELL DISTRIBUTION WIDTH 18.4 % (11.5-14.5); WHITE BLOOD COUNT 7.7 10^3/uL (4.0-10.0)
[2017-08-15 06:34] LABS: INR 1.42; PROTHROMBIN TIME 17.6 SECONDS (12.4-14.5)
[2017-08-15 06:38] LABS: ANION GAP 7 MEQ/L (8-16); BLOOD UREA NITROGEN 28 MG/DL (7-18); CALCIUM LEVEL 8.5 MG/DL (8.8-10.2); CARBON DIOXIDE LEVEL 30 MEQ/L (21-32); CHLORIDE LEVEL 102 MEQ/L (98-107); GLOMERULAR FILTRATION RATE 12.8 (>42); GLUCOSE, FASTING 184 MG/DL (70-100); POTASSIUM SERUM 3.6 MEQ/L (3.5-5.1); SODIUM LEVEL 139 MEQ/L (136-145)
[2017-08-15] MEDS: ADVAIR HFA 115/21MCG INHALER INH ×2 (07:29→08:02)
[2017-08-15] MEDS: HumaLOG INSULIN (NovoLOG) PER UNIT SC ×4 (07:30→20:41)
[2017-08-15] MEDS: (RENVELA) SEVELAMER **CARBONate** 800 MG TAB PO ×3 (08:00→18:00)
[2017-08-15] MEDS: IPRATROPIUM 0.5MG/ALBUTEROL 2.5MG INH SOL UD 3ML (DUONEB)(J7620) NEB ×2 (08:00→15:24)
[2017-08-15] MEDS: MIDODRINE 5 MG TAB PO ×3 (08:00→16:41)
[2017-08-15] MEDS: CALCIUM ACETATE 667 MG GELCAP PO ×4 (08:00→18:00)
[2017-08-15 08:45] LABS: BEDSIDE GLUCOSE 207 MG/DL (83-110)
[2017-08-15] MEDS: ASPIRIN 81 MG ENTERIC TAB PO (09:00)
[2017-08-15] MEDS: FEBUXOSTAT 40 MG TABLET (ULORIC) PO (09:00)
[2017-08-15] MEDS ORDERED: fentaNYL 100 MCG/2 ML INJECTION (J3010) As Ordered (09:53)
[2017-08-15] MEDS ORDERED: MIDAZOLAM INJ 2 MG/2 ML VIAL (J2250) As Ordered (09:53)
[2017-08-15] MEDS ORDERED: LIDOCAINE 2% INJ 100 MG/5 ML SDV (FOR ANES.) As Ordered (09:53)
[2017-08-15] MEDS: HEPARIN SOD (PORCINE) 5000 UNITS/ML VIAL As Ordered (09:55)
[2017-08-15] MEDS: ceFAZolin 2 GM/D5W 50 ML IV BAG (J0690 PER 500MG) As Ordered (10:25)
[2017-08-15] MEDS: ceFAZolin 2 GM/D5W 50 ML IV BAG (J0690 PER 500MG) IV (10:34)
[2017-08-15] MEDS: BUPIVACAINE HCL 0.5% 10 ML VIAL As Ordered (10:50)
[2017-08-15] MEDS: LIDOCAINE 1% MDV 20ML VIAL As Ordered (10:50)
[2017-08-15] MEDS ORDERED: PROPOFOL 200 MG/20 ML VIAL As Ordered ×2 (11:01→11:02)
[2017-08-15 11:34] LABS: BEDSIDE GLUCOSE 135 MG/DL (83-110)
[2017-08-15] MEDS ORDERED: ONDANSETRON 4MG/2ML VIAL (J2405) IV (12:15)
[2017-08-15] MEDS ORDERED: fentaNYL 100 MCG/2 ML INJECTION (J3010) IV (12:15)
[2017-08-15 12:35] LABS: BEDSIDE GLUCOSE 163 MG/DL (83-110)
[2017-08-15] MEDS: CYANOCOBALAMIN 500 MCG TAB PO (12:48)
[2017-08-15] MEDS: DOCUSATE SODIUM 100 MG CAP PO ×2 (12:48→20:48)
[2017-08-15] MEDS: NEPHRO-VIT TAB (NEPHROCAPS) PO (12:48)
[2017-08-15] MEDS: GABAPENTIN 100 MG CAP PO (12:48)
[2017-08-15] MEDS: PANTOPRAZOLE 40MG TAB (PROTONIX) PO (12:49)
[2017-08-15] MEDS: VITAMIN D 1,000 INTERNATIONAL UNITS TABLET PO (12:49)
[2017-08-15] MEDS: CINACALCET 30 MG TAB (SENSIPAR) PO (12:49)
[2017-08-15] MEDS: MYCOPHENOLATE MOFETIL 250 MG CAP (J7517) PO ×2 (12:49→20:48)
[2017-08-15] MEDS: METOPROLOL TART 25 MG TABLET PO ×2 (12:50→20:49)
[2017-08-15] MEDS: AQUAPHOR **100GM** OINT TOP ×3 (12:50→20:48)
[2017-08-15 17:02] LABS: BEDSIDE GLUCOSE 223 MG/DL (83-110)
[2017-08-15] MEDS: TAMSULOSIN 0.4 MG CAP PO (20:48)
[2017-08-15] MEDS: ATORVASTATIN 20 MG TAB PO (20:48)
[2017-08-15 20:49] LABS: BEDSIDE GLUCOSE 180 MG/DL (83-110)
[2017-08-15] MEDS: LEVEMIR (INSULIN DETEMIR) 1 UNITS/0.01ML SC (20:49)
[2017-08-16] MEDS: IPRATROPIUM 0.5MG/ALBUTEROL 2.5MG INH SOL UD 3ML (DUONEB)(J7620) NEB ×2 (00:01→07:39)
[2017-08-16 05:57] LABS: HEMATOCRIT 27.2 % (42.0-52.0); HEMOGLOBIN 8.2 g/dl (13.5-17.5); MEAN CORPUSCULAR HEMOGLOBIN 29.1 pg (27.0-33.0); MEAN CORPUSCULAR HGB CONC 30.1 g/dl (32.0-36.5); MEAN CORPUSCULAR VOLUME 96.5 fl (80.0-96.0); PLATELET COUNT, AUTOMATED 159 10^3/uL (150-450); RED BLOOD COUNT 2.82 10^6/uL (4.30-6.10); RED CELL DISTRIBUTION WIDTH 18.2 % (11.5-14.5); WHITE BLOOD COUNT 8.2 10^3/uL (4.0-10.0)
[2017-08-16 06:09] LABS: INR 1.45
[2017-08-16 06:12] LABS: ANION GAP 9 MEQ/L (8-16); BLOOD UREA NITROGEN 41 MG/DL (7-18); CALCIUM LEVEL 8.1 MG/DL (8.8-10.2); CARBON DIOXIDE LEVEL 28 MEQ/L (21-32); CHLORIDE LEVEL 102 MEQ/L (98-107); CREATININE FOR GFR 7.43 MG/DL (0.70-1.30); GLOMERULAR FILTRATION RATE 9.4 (>42); GLUCOSE, FASTING 105 MG/DL (70-100); POTASSIUM SERUM 4.1 MEQ/L (3.5-5.1); SODIUM LEVEL 139 MEQ/L (136-145)
[2017-08-16] MEDS: ADVAIR HFA 115/21MCG INHALER INH (07:39)
[2017-08-16] MEDS: (RENVELA) SEVELAMER **CARBONate** 800 MG TAB PO ×2 (08:00→12:30)
[2017-08-16] MEDS: CALCIUM ACETATE 667 MG GELCAP PO ×2 (08:00→12:30)
[2017-08-16] MEDS: CYANOCOBALAMIN 500 MCG TAB PO (08:22)
[2017-08-16] MEDS: VITAMIN D 1,000 INTERNATIONAL UNITS TABLET PO (08:22)
[2017-08-16] MEDS: PANTOPRAZOLE 40MG TAB (PROTONIX) PO (08:23)
[2017-08-16] MEDS: GABAPENTIN 100 MG CAP PO (08:23)
[2017-08-16] MEDS: MIDODRINE 5 MG TAB PO ×2 (08:23→12:53)
[2017-08-16] MEDS: NEPHRO-VIT TAB (NEPHROCAPS) PO (08:23)
[2017-08-16] MEDS: DOCUSATE SODIUM 100 MG CAP PO (08:23)
[2017-08-16] MEDS: ASPIRIN 81 MG ENTERIC TAB PO (08:23)
[2017-08-16] MEDS: MYCOPHENOLATE MOFETIL 250 MG CAP (J7517) PO (08:23)
[2017-08-16] MEDS: CINACALCET 30 MG TAB (SENSIPAR) PO (08:23)
[2017-08-16] MEDS: HumaLOG INSULIN (NovoLOG) PER UNIT SC ×2 (08:24→12:54)
[2017-08-16] MEDS: AQUAPHOR **100GM** OINT TOP (08:24)
[2017-08-16] MEDS: METOPROLOL TART 25 MG TABLET PO (08:24)
[2017-08-16] MEDS: FEBUXOSTAT 40 MG TABLET (ULORIC) PO (08:31)
[2017-08-16 11:58] LABS: BEDSIDE GLUCOSE 140 MG/DL (83-110)
== END 2017-08-16 13:51 | disposition home health service (06) | DRG 252 ==
LOC: M MSPAV 08-11 11:01 → M ED 06:33 → M ED INP 10:04 → M PCU 17:15
PROC: 05BD0ZZ Excision of Right Cephalic Vein, Open Approach (ICD-10-PCS; principal; 2017-08-15 09:00)
PROC: 0HXDXZZ Transfer Right Lower Arm Skin, External Approach (ICD-10-PCS; 2017-08-15 09:00)
PROC: 05Q Upper Veins, Repair (ICD-10-PCS; 2017-08-15 09:31)
PROC: 5A1D70Z Performance of Urinary Filtration, Intermittent, Less than 6 Hours Per Day (ICD-10-PCS; 2017-08-15 09:31)
PROC: 30253N1 (ICD-10-PCS; 2017-08-15 09:31)
PROC: B50WYZZ Plain Radiography of Dialysis Shunt/Fistula using Other Contrast (ICD-10-PCS; 2017-08-15 09:31)
DX: T82.838A Hemorrhage due to vascular prosthetic devices, implants and grafts, initial encounter (principal); N18.6 End stage renal disease; D62 Acute posthemorrhagic anemia; I12.0 Hypertensive chronic kidney disease with stage 5 chronic kidney disease or end stage renal disease; N25.81 Secondary hyperparathyroidism of renal origin; E87.5 Hyperkalemia; Y83.1 Surgical operation with implant of artificial internal device as the cause of abnormal reaction of the patient, or of later complication, without mention of misadventure at the time of the procedure; J45.909 Unspecified asthma, uncomplicated; N40.0 Benign prostatic hyperplasia without lower urinary tract symptoms; E11.22 Type 2 diabetes mellitus with diabetic chronic kidney disease; M10.30 Gout due to renal impairment, unspecified site; I48.0 Paroxysmal atrial fibrillation; L98.499 Non-pressure chronic ulcer of skin of other sites with unspecified severity; I48.91 Unspecified atrial fibrillation; E78.5 Hyperlipidemia, unspecified; Z99.2 Dependence on renal dialysis; Z87.891 Personal history of nicotine dependence; Z79.4 Long term (current) use of insulin; Z95.0 Presence of cardiac pacemaker; Z79.82 Long term (current) use of aspirin; Z79.01 Long term (current) use of anticoagulants; Z79.899 Other long term (current) drug therapy

== ENCOUNTER → 2017-09-29 | Outpatient (CLI) | payer MEDICARE, OTHER ==
[~2017-09-29] MED LIST changes: -/ATOR40TA PO; -/INSU7030; -/METO25TAB PO; -/NEPHROTA PO; -/NITR4TASL SL; -/WARF5TA; -ADV250INH INH; -ALBU0.5N INH; -ALBU17IN INH; -ALDA25TA2; -ALLO100T PO; -ALLO300T2 PO; -ALPH0.1S XX; -AMLO10TA; -APIDINJ SC; -ASPI81CH PO; -ASPI81TA83 PO; -ATOR1TAB21 PO; -ATOR40TA75 PO; -BISO10TA2; -BISO10TA6 PO; -CALC1CAP PO; -CAPT12.5; -CAPT12.5 PO; -CATA0.1T; -CINA30TA PO; -CLAR1TAB2 PO; -COLC1TAB14 PO; -COUM1TAB17 PO; -COUMADIN; -DEMA20TA; -DOCU10ELUD PO; -FEBU40TA PO; -FLEXERIL; -FLOM5CAP PO; -FLUTISP; -GABA-279 PO; -GLUC500T; -HYDR1CRE89 TOP; -INSUDET SC; -INSUH10VL SC; -INSULANT SC; -INSULIN LANTUS; +ISOVUE-300 61% 50ML VIAL (Q9967) As Ordered; -LANO0.1211; -LEVO250T12 PO; -LOTE0.5S OD; -METO-346; -METO1TAB87 PO; -METO50TA7 PO; +MIDAZOLAM INJ 2 MG/2 ML VIAL (J2250) As Ordered; -MIRA255PW PO; -NEPHTAB PO; -NEUR100C; -NITR4TASL SL; -NORV5TAB; -NOVOLOG SC; -PRED1SUS OD; -PROT20TA11 PO; -PROV90AE INH; -RENATAB5 PO; -RENV2TAB PO; -SENO8.6T9 PO; -TAMS0.4C PO; -TORS100T12 PO; -TRAM50TA2; -TYLE325T5 PO; -VICO5TAB PO; -VITA100066 PO; -VITA500T3 PO; -WARF-60 PO; -WARF2TAB44 PO; -WARF4TAB28 PO; -WARF4TAB52 PO; -ZETI10TA21 PO; -[UNRECOGNIZED DRUG - CODE] EXT; +fentaNYL 100 MCG/2 ML INJECTION (J3010) As Ordered
== END | disposition home or self-care (01) ==
LOC: M IRPRO 08:57
DX: T82.9XXA Unspecified complication of cardiac and vascular prosthetic device, implant and graft, initial encounter (principal); N18.6 End stage renal disease
CPT/HCPCS: 36901

== ENCOUNTER 2017-10-30 17:22 | Emergency (ER) | payer MEDICARE, OTHER, MEDICAID ==
[2017-10-30 19:33] LABS: BASO % 0.6 % (0.0-1.0); EOS # 0.2 10^3/uL (0.0-0.50); EOS % 3.1 % (0.0-3.0); HEMATOCRIT 35.5 % (42.0-52.0); HEMOGLOBIN 10.8 g/dl (13.5-17.5); IMMATURE GRANULOCYTE % 0.1 % (0-3.0); LYMPH # 1.1 10^3/uL (1.5-4.5); LYMPH % 15.7 % (24.0-44.0); MEAN CORPUSCULAR HEMOGLOBIN 29.2 pg (27.0-33.0); MEAN CORPUSCULAR HGB CONC 30.4 g/dl (32.0-36.5); MEAN CORPUSCULAR VOLUME 95.9 fl (80.0-96.0); NEUTROPHILS # 4.7 10^3/uL (1.8-7.7); NEUTROPHILS % 66.5 % (36.0-66.0); PLATELET COUNT, AUTOMATED 205 10^3/uL (150-450); RED CELL DISTRIBUTION WIDTH 17.9 % (11.5-14.5); WHITE BLOOD COUNT 7.1 10^3/uL (4.0-10.0)
[2017-10-30 20:18] LABS: ANION GAP 9 MEQ/L (8-16); BLOOD UREA NITROGEN 25 MG/DL (7-18); CALCIUM LEVEL 8.7 MG/DL (8.8-10.2); CARBON DIOXIDE LEVEL 29 MEQ/L (21-32); CHLORIDE LEVEL 101 MEQ/L (98-107); CREATININE FOR GFR 4.97 MG/DL (0.70-1.30); GLUCOSE, FASTING 143 MG/DL (70-100); POTASSIUM SERUM 4.5 MEQ/L (3.5-5.1); SODIUM LEVEL 139 MEQ/L (136-145)
[2017-10-30 20:21] LABS: LACTIC ACID SEPSIS PROTOCOL 1.4 MMOL/L (0.4-2.0)
[2017-10-30 20:27] LABS: ERYTHROCYTE SEDIMENTATION RATE 58 mm/hr (0-20)
== END 2017-10-30 21:22 | disposition home or self-care (01) ==
LOC: M ED 17:22
DX: T25.222A Burn of second degree of left foot, initial encounter (principal); T25.221A Burn of second degree of right foot, initial encounter; X11.8XXA Contact with other hot tap-water, initial encounter; Y92.89 Other specified places as the place of occurrence of the external cause; I50.9 Heart failure, unspecified; N18.6 End stage renal disease; I13.2 Hypertensive heart and chronic kidney disease with heart failure and with stage 5 chronic kidney disease, or end stage renal disease; E11.9 Type 2 diabetes mellitus without complications; J45.909 Unspecified asthma, uncomplicated; H54.7 Unspecified visual loss; G62.9 Polyneuropathy, unspecified; B00.9 Herpesviral infection, unspecified; Z79.01 Long term (current) use of anticoagulants; Z95.0 Presence of cardiac pacemaker; Z98.890 Other specified postprocedural states; Z87.891 Personal history of nicotine dependence; Z79.82 Long term (current) use of aspirin; Z79.4 Long term (current) use of insulin; Z79.899 Other long term (current) drug therapy
CPT/HCPCS: 73700

== ENCOUNTER → 2017-12-10 | Outpatient (REF) | payer MEDICARE, OTHER, MEDICAID | LOC: M LAB REF 19:42 | DX: T25.231D Burn of second degree of right toe(s) (nail), subsequent encounter (principal) | CPT/HCPCS: 88304 ==

== ENCOUNTER 2018-01-28 14:41 | Inpatient (IN) | payer MEDICARE, MEDICAID, OTHER ==
[2018-01-28 16:17] LABS: BASO # 0.1 10^3/uL (0.0-0.2); BASO % 0.3 % (0.0-1.0); EOS # 0.2 10^3/uL (0.0-0.50); EOS % 0.9 % (0.0-3.0); HEMATOCRIT 28.1 % (42.0-52.0); HEMOGLOBIN 8.6 g/dl (13.5-17.5); IMMATURE GRANULOCYTE % 0.8 % (0-3.0); LYMPH # 1.2 10^3/uL (1.5-4.5); LYMPH % 6.2 % (24.0-44.0); MEAN CORPUSCULAR HEMOGLOBIN 28.6 pg (27.0-33.0); MEAN CORPUSCULAR HGB CONC 30.6 g/dl (32.0-36.5); MEAN CORPUSCULAR VOLUME 93.4 fl (80.0-96.0); MONO # 1.7 10^3/uL (0.0-0.8); MONO % 9.3 % (0.0-5.0); NEUTROPHILS # 15.5 10^3/uL (1.8-7.7); NEUTROPHILS % 82.5 % (36.0-66.0); PLATELET COUNT, AUTOMATED 334 10^3/uL (150-450); RED BLOOD COUNT 3.01 10^6/uL (4.30-6.10); RED CELL DISTRIBUTION WIDTH 19.9 % (11.5-14.5); WHITE BLOOD COUNT 18.8 10^3/uL (4.0-10.0)
[2018-01-28 16:40] LABS: ERYTHROCYTE SEDIMENTATION RATE 81 mm/hr (0-20)
[2018-01-28 16:41] LABS: INR 2.08; PROTHROMBIN TIME 23.8 SECONDS (12.1-14.4)
[2018-01-28] MEDS: VANCOMYCIN HCL 1,000 MG, VIAL MATE ADAPTER 1 EACH in D5W 250 ML IV (16:45)
[2018-01-28 16:56] LABS: ALBUMIN/GLOBULIN RATIO 0.38 (1.00-1.93); ALKALINE PHOSPHATASE 96 U/L (45-117); ALT/SGPT 13 U/L (12-78); AMYLASE 54 U/L (25-115); ANION GAP 8 MEQ/L (8-16); AST/SGOT 10 U/L (7-37); BILIRUBIN,DIRECT 0.3 MG/DL (0.0-0.2); BILIRUBIN,TOTAL 0.6 MG/DL (0.2-1.0); BLOOD UREA NITROGEN 48 MG/DL (7-18); CALCIUM LEVEL 8.6 MG/DL (8.8-10.2); CARBON DIOXIDE LEVEL 29 MEQ/L (21-32); CHLORIDE LEVEL 98 MEQ/L (98-107); CPK CREATINE PHOSPHOKINASE 41 U/L (39-308); GLOMERULAR FILTRATION RATE 11.2 (>42); GLUCOSE, FASTING 232 MG/DL (70-100); LIPASE 212 U/L (73-393); MB/CK RELATIVE INDEX 3.17 (< OR =4); POTASSIUM SERUM 4.7 MEQ/L (3.5-5.1); SODIUM LEVEL 135 MEQ/L (136-145); TOTAL PROTEIN 7.2 GM/DL (6.4-8.2); TROPONIN I 0.22 NG/ML (< 0.10)
[2018-01-28 16:58] LABS: LACTIC ACID SEPSIS PROTOCOL 1.6 MMOL/L (0.4-2.0)
[2018-01-28] MEDS: PIPERACILLIN/TAZOBACTAM SOD 3.375 GM in D5W MINI-BAG PLUS 50 ML IV (18:11)
[2018-01-28] MEDS ORDERED: CEFEPIME HCL 1 GM in D5W MINI-BAG PLUS 50 ML IV (19:30)
[2018-01-28] MEDS ORDERED: DEXTROSE 50% 50 ML SYRINGE IV (19:30)
[2018-01-28] MEDS ORDERED: GLUCOSE 4 GM CHEW TABLET PO (19:30)
[2018-01-28] MEDS ORDERED: GLUCAGON FOR INJ 1 MG VIAL (J1610) SC (19:30)
[2018-01-28] MEDS ORDERED: ONDANSETRON 4MG/2ML VIAL (J2405) IV (19:45)
[2018-01-28] MEDS ORDERED: MORPHINE 4 MG/ML 1ML VIAL/SYRINGE (J2270) IV (19:45)
[2018-01-28] MEDS: HumaLOG INSULIN (NovoLOG) PER UNIT SC (21:00)
[2018-01-28] MEDS: IPRATROPIUM 0.5MG/ALBUTEROL 2.5MG INH SOL UD 3ML (DUONEB)(J7620) NEB (21:00)
[2018-01-28 21:49] LABS: BEDSIDE GLUCOSE 170 MG/DL (83-110)
[2018-01-28] MEDS ORDERED: VANCOMYCIN INTERMITTENT/PULSE DOSING BY CLINICAL PHARMACIST PER DOSING PROTOCOL XX (22:00)
[2018-01-28 22:43] LABS: CK-MB VALUE MASS < 1.0 NG/ML (<3.6); CPK CREATINE PHOSPHOKINASE 95 U/L (39-308); MB/CK RELATIVE INDEX 1.05 (< OR =4); TROPONIN I 0.22 NG/ML (< 0.10)
[2018-01-28] MEDS ORDERED: LIDOCAINE 2% INJ 100 MG/5 ML SDV (FOR ANES.) As Ordered (23:23)
[2018-01-28] MEDS ORDERED: fentaNYL 100 MCG/2 ML INJECTION (J3010) As Ordered (23:24)
[2018-01-28] MEDS ORDERED: PROPOFOL 200 MG/20 ML VIAL As Ordered (23:24)
[2018-01-29 00:28] LABS: BEDSIDE GLUCOSE 145 MG/DL (83-110)
[2018-01-29] MEDS ORDERED: LR 1,000 ML IV (00:30)
[2018-01-29] MEDS ORDERED: fentaNYL 100 MCG/2 ML INJECTION (J3010) IV (00:30)
[2018-01-29] MEDS ORDERED: PERCOCET 5MG/325MG TAB PO (00:30)
[2018-01-29] MEDS ORDERED: ONDANSETRON 4MG/2ML VIAL (J2405) IV (00:30)
[2018-01-29] MEDS: SENOKOT S TAB PO ×3 (01:34→08:04)
[2018-01-29] MEDS: ATORVASTATIN 20 MG TAB PO ×2 (01:34→21:21)
[2018-01-29] MEDS: METOPROLOL TART 25 MG TABLET PO ×3 (01:37→21:24)
[2018-01-29] MEDS: LEVEMIR (INSULIN DETEMIR) 1 UNITS/0.01ML SC ×2 (01:37→21:25)
[2018-01-29] MEDS: LATANOPROST 0.005% OPHTH SOLN 2.5 ML OU ×2 (01:41→20:03)
[2018-01-29] MEDS: IPRATROPIUM 0.5MG/ALBUTEROL 2.5MG INH SOL UD 3ML (DUONEB)(J7620) NEB ×4 (02:07→21:03)
[2018-01-29] MEDS: CEFEPIME HCL 1 GM in D5W MINI-BAG PLUS 50 ML IV (02:38)
[2018-01-29] MEDS: PERCOCET 5MG/325MG TAB PO ×2 (05:15→20:02)
[2018-01-29 06:40] LABS: HEMATOCRIT 26.2 % (42.0-52.0); HEMOGLOBIN 7.8 g/dl (13.5-17.5); MEAN CORPUSCULAR HEMOGLOBIN 28.2 pg (27.0-33.0); MEAN CORPUSCULAR HGB CONC 29.8 g/dl (32.0-36.5); MEAN CORPUSCULAR VOLUME 94.6 fl (80.0-96.0); PLATELET COUNT, AUTOMATED 274 10^3/uL (150-450); RED BLOOD COUNT 2.77 10^6/uL (4.30-6.10); RED CELL DISTRIBUTION WIDTH 19.1 % (11.5-14.5); WHITE BLOOD COUNT 18.5 10^3/uL (4.0-10.0)
[2018-01-29 07:01] LABS: ALBUMIN 2.1 GM/DL (3.2-5.2); ALBUMIN/GLOBULIN RATIO 0.45 (1.00-1.93); ALKALINE PHOSPHATASE 84 U/L (45-117); ALT/SGPT 15 U/L (12-78); ANION GAP 11 MEQ/L (8-16); AST/SGOT 18 U/L (7-37); BILIRUBIN,TOTAL 0.7 MG/DL (0.2-1.0); BLOOD UREA NITROGEN 53 MG/DL (7-18); CALCIUM LEVEL 8.5 MG/DL (8.8-10.2); CARBON DIOXIDE LEVEL 26 MEQ/L (21-32); CHLORIDE LEVEL 99 MEQ/L (98-107); CPK CREATINE PHOSPHOKINASE 319 U/L (39-308); CREATININE FOR GFR 6.99 MG/DL (0.70-1.30); GLOMERULAR FILTRATION RATE 10.1 (>42); GLUCOSE, FASTING 135 MG/DL (70-100); MAGNESIUM LEVEL 2.3 MG/DL (1.8-2.4); MB/CK RELATIVE INDEX 1.57 (< OR =4); PHOSPHORUS LEVEL 4.8 MG/DL (2.5-4.9); SODIUM LEVEL 136 MEQ/L (136-145); TOTAL PROTEIN 6.8 GM/DL (6.4-8.2)
[2018-01-29] MEDS: NEPHRO-VIT TAB (NEPHROCAPS) PO (08:04)
[2018-01-29] MEDS: ASPIRIN 81 MG ENTERIC TAB PO (08:04)
[2018-01-29] MEDS: MIDODRINE 5 MG TAB PO ×3 (08:04→18:25)
[2018-01-29] MEDS: VITAMIN D 1,000 INTERNATIONAL UNITS TABLET PO (08:04)
[2018-01-29] MEDS: (RENVELA) SEVELAMER **CARBONate** 800 MG TAB PO (08:04)
[2018-01-29] MEDS: CYANOCOBALAMIN 500 MCG TAB PO (08:05)
[2018-01-29] MEDS: HumaLOG INSULIN (NovoLOG) PER UNIT SC ×4 (08:07→21:00)
[2018-01-29 12:14] LABS: BEDSIDE GLUCOSE 174 MG/DL (83-110)
[2018-01-29] MEDS: LIDOCAINE 1% SDV 5 ML VIAL SQ (13:00)
[2018-01-29 13:59] LABS: IMMEDIATE SPIN CROSSMATCH 1 1
[2018-01-29 18:03] LABS: BEDSIDE GLUCOSE 117 MG/DL (83-110)
[2018-01-29] MEDS ORDERED: VANCOMYCIN HCL 1,000 MG, VIAL MATE ADAPTER 1 EACH in D5W 250 ML IV (19:30)
[2018-01-29] MEDS: VANCOMYCIN HCL 1,000 MG, VIAL MATE ADAPTER 1 EACH in D5W 250 ML IV (20:02)
[2018-01-29] MEDS: CEFEPIME HCL 0.5 GM in D5W 50 ML IV (21:25)
[2018-01-30] MEDS: IPRATROPIUM 0.5MG/ALBUTEROL 2.5MG INH SOL UD 3ML (DUONEB)(J7620) NEB ×3 (01:07→15:03)
[2018-01-30 06:13] LABS: HEMOGLOBIN 8.3 g/dl (13.5-17.5); MEAN CORPUSCULAR HEMOGLOBIN 28.3 pg (27.0-33.0); MEAN CORPUSCULAR HGB CONC 30.7 g/dl (32.0-36.5); MEAN CORPUSCULAR VOLUME 92.2 fl (80.0-96.0); PLATELET COUNT, AUTOMATED 255 10^3/uL (150-450); RED BLOOD COUNT 2.93 10^6/uL (4.30-6.10); RED CELL DISTRIBUTION WIDTH 19.2 % (11.5-14.5); WHITE BLOOD COUNT 15.1 10^3/uL (4.0-10.0)
[2018-01-30 06:22] LABS: INR 2.11
[2018-01-30 06:52] LABS: ALBUMIN/GLOBULIN RATIO 0.47 (1.00-1.93); ALKALINE PHOSPHATASE 89 U/L (45-117); ALT/SGPT 15 U/L (12-78); ANION GAP 9 MEQ/L (8-16); AST/SGOT 13 U/L (7-37); BILIRUBIN,TOTAL 0.8 MG/DL (0.2-1.0); BLOOD UREA NITROGEN 35 MG/DL (7-18); CALCIUM LEVEL 7.9 MG/DL (8.8-10.2); CARBON DIOXIDE LEVEL 28 MEQ/L (21-32); CHLORIDE LEVEL 100 MEQ/L (98-107); CREATININE FOR GFR 5.29 MG/DL (0.70-1.30); GLOMERULAR FILTRATION RATE 13.9 (>42); GLUCOSE, FASTING 176 MG/DL (70-100); MAGNESIUM LEVEL 2.1 MG/DL (1.8-2.4); POTASSIUM SERUM 4.4 MEQ/L (3.5-5.1); SODIUM LEVEL 137 MEQ/L (136-145); TOTAL PROTEIN 6.3 GM/DL (6.4-8.2); VANCOMYCIN RANDOM 14.3 UG/ML
[2018-01-30 06:59] LABS: ESTIMATED AVERAGE GLUCOSE 134 MG/DL (60-110); HEMOGLOBIN A1c 6.3 %
[2018-01-30 07:48] LABS: BEDSIDE GLUCOSE 137 MG/DL (83-110)
[2018-01-30] MEDS: (RENVELA) SEVELAMER **CARBONate** 800 MG TAB PO (08:18)
[2018-01-30] MEDS: HumaLOG INSULIN (NovoLOG) PER UNIT SC ×4 (08:19→21:00)
[2018-01-30] MEDS: PERCOCET 5MG/325MG TAB PO ×2 (08:20→21:26)
[2018-01-30] MEDS: GABAPENTIN 100 MG CAP PO (08:20)
[2018-01-30] MEDS: SENOKOT S TAB PO ×2 (08:20→21:26)
[2018-01-30] MEDS: MIDODRINE 5 MG TAB PO ×3 (08:20→17:34)
[2018-01-30] MEDS: ASPIRIN 81 MG ENTERIC TAB PO (08:25)
[2018-01-30] MEDS: CYANOCOBALAMIN 500 MCG TAB PO (08:25)
[2018-01-30] MEDS: NEPHRO-VIT TAB (NEPHROCAPS) PO (08:25)
[2018-01-30] MEDS: METOPROLOL TART 25 MG TABLET PO ×2 (08:25→21:26)
[2018-01-30] MEDS: VITAMIN D 1,000 INTERNATIONAL UNITS TABLET PO (08:25)
[2018-01-30] MEDS: **VANCO AFTER HD** MISC XX (12:45)
[2018-01-30 17:06] LABS: BEDSIDE GLUCOSE 208 MG/DL (83-110)
[2018-01-30] MEDS: LEVEMIR (INSULIN DETEMIR) 1 UNITS/0.01ML SC (21:25)
[2018-01-30] MEDS: ATORVASTATIN 20 MG TAB PO (21:26)
[2018-01-30] MEDS: LATANOPROST 0.005% OPHTH SOLN 2.5 ML OU (21:28)
[2018-01-30] MEDS: CEFEPIME HCL 0.5 GM in D5W 50 ML IV (21:31)
[2018-01-31 06:13] LABS: HEMATOCRIT 28.6 % (42.0-52.0); HEMOGLOBIN 8.4 g/dl (13.5-17.5); MEAN CORPUSCULAR HEMOGLOBIN 27.8 pg (27.0-33.0); MEAN CORPUSCULAR HGB CONC 29.4 g/dl (32.0-36.5); MEAN CORPUSCULAR VOLUME 94.7 fl (80.0-96.0); PLATELET COUNT, AUTOMATED 271 10^3/uL (150-450); RED BLOOD COUNT 3.02 10^6/uL (4.30-6.10); RED CELL DISTRIBUTION WIDTH 19.2 % (11.5-14.5); WHITE BLOOD COUNT 13.4 10^3/uL (4.0-10.0)
[2018-01-31 06:30] LABS: PROTHROMBIN TIME 20.3 SECONDS (12.1-14.4)
[2018-01-31 06:36] LABS: ALBUMIN 2.2 GM/DL (3.2-5.2); ALKALINE PHOSPHATASE 91 U/L (45-117); ALT/SGPT 15 U/L (12-78); ANION GAP 10 MEQ/L (8-16); AST/SGOT 11 U/L (7-37); BILIRUBIN,TOTAL 0.7 MG/DL (0.2-1.0); BLOOD UREA NITROGEN 49 MG/DL (7-18); CALCIUM LEVEL 8.5 MG/DL (8.8-10.2); CARBON DIOXIDE LEVEL 26 MEQ/L (21-32); CHLORIDE LEVEL 100 MEQ/L (98-107); CREATININE FOR GFR 6.77 MG/DL (0.70-1.30); GLOMERULAR FILTRATION RATE 10.5 (>42); GLUCOSE, FASTING 73 MG/DL (70-100); MAGNESIUM LEVEL 2.5 MG/DL (1.8-2.4); SODIUM LEVEL 136 MEQ/L (136-145); TOTAL PROTEIN 6.6 GM/DL (6.4-8.2)
[2018-01-31] MEDS: HumaLOG INSULIN (NovoLOG) PER UNIT SC ×4 (07:30→22:01)
[2018-01-31 07:38] LABS: BEDSIDE GLUCOSE 181 MG/DL (83-110)
[2018-01-31 07:38] LABS: BEDSIDE GLUCOSE 175 MG/DL (83-110)
[2018-01-31 07:38] LABS: BEDSIDE GLUCOSE 93 MG/DL (83-110)
[2018-01-31] MEDS: SENOKOT S TAB PO ×2 (08:54→22:00)
[2018-01-31] MEDS: ASPIRIN 81 MG ENTERIC TAB PO (08:54)
[2018-01-31] MEDS: (RENVELA) SEVELAMER **CARBONate** 800 MG TAB PO (08:54)
[2018-01-31] MEDS: HEPARIN SOD (PORCINE) 5000 UNITS/ML VIAL SQ ×2 (08:54→22:00)
[2018-01-31] MEDS: CYANOCOBALAMIN 500 MCG TAB PO (08:54)
[2018-01-31] MEDS: MIDODRINE 5 MG TAB PO ×3 (08:55→16:04)
[2018-01-31] MEDS: VITAMIN D 1,000 INTERNATIONAL UNITS TABLET PO (08:55)
[2018-01-31] MEDS: GABAPENTIN 100 MG CAP PO (08:55)
[2018-01-31] MEDS: METOPROLOL TART 25 MG TABLET PO ×2 (08:55→22:02)
[2018-01-31] MEDS: NEPHRO-VIT TAB (NEPHROCAPS) PO (08:55)
[2018-01-31 12:10] LABS: BEDSIDE GLUCOSE 97 MG/DL (83-110)
[2018-01-31] MEDS ORDERED: DARBEPOETIN 300 MCG/0.6 ML *DIALYSIS* SYRINGE (J0882) IV (12:30)
[2018-01-31] MEDS: PERCOCET 5MG/325MG TAB PO (13:06)
[2018-01-31] MEDS: **VANCO AFTER HD** MISC XX (16:00)
[2018-01-31] MEDS: CEFEPIME HCL 0.5 GM in D5W 50 ML IV (21:59)
[2018-01-31] MEDS: ATORVASTATIN 20 MG TAB PO (22:00)
[2018-01-31] MEDS: LEVEMIR (INSULIN DETEMIR) 1 UNITS/0.01ML SC (22:01)
[2018-01-31] MEDS: LATANOPROST 0.005% OPHTH SOLN 2.5 ML OU (22:01)
[2018-02-01 06:00] LABS: HEMATOCRIT 27.5 % (42.0-52.0); HEMOGLOBIN 8.4 g/dl (13.5-17.5); MEAN CORPUSCULAR HEMOGLOBIN 28.5 pg (27.0-33.0); MEAN CORPUSCULAR HGB CONC 30.5 g/dl (32.0-36.5); MEAN CORPUSCULAR VOLUME 93.2 fl (80.0-96.0); PLATELET COUNT, AUTOMATED 270 10^3/uL (150-450); RED BLOOD COUNT 2.95 10^6/uL (4.30-6.10); RED CELL DISTRIBUTION WIDTH 18.8 % (11.5-14.5); WHITE BLOOD COUNT 13.8 10^3/uL (4.0-10.0)
[2018-02-01] MEDS: (RENVELA) SEVELAMER **CARBONate** 800 MG TAB PO (06:24)
[2018-02-01] MEDS: SENOKOT S TAB PO ×2 (06:25→21:08)
[2018-02-01] MEDS: MIDODRINE 5 MG TAB PO ×3 (06:25→15:43)
[2018-02-01] MEDS: NEPHRO-VIT TAB (NEPHROCAPS) PO (06:25)
[2018-02-01] MEDS: VITAMIN D 1,000 INTERNATIONAL UNITS TABLET PO (06:25)
[2018-02-01] MEDS: CYANOCOBALAMIN 500 MCG TAB PO (06:25)
[2018-02-01] MEDS: ASPIRIN 81 MG ENTERIC TAB PO (06:26)
[2018-02-01] MEDS: METOPROLOL TART 25 MG TABLET PO ×2 (06:27→21:08)
[2018-02-01 06:31] LABS: INR 1.52; PROTHROMBIN TIME 18.5 SECONDS (12.1-14.4)
[2018-02-01 06:46] LABS: ALBUMIN 2.2 GM/DL (3.2-5.2); ALBUMIN/GLOBULIN RATIO 0.48 (1.00-1.93); ALKALINE PHOSPHATASE 94 U/L (45-117); ALT/SGPT 15 U/L (12-78); ANION GAP 15 MEQ/L (8-16); AST/SGOT 14 U/L (7-37); BILIRUBIN,TOTAL 0.6 MG/DL (0.2-1.0); BLOOD UREA NITROGEN 60 MG/DL (7-18); CALCIUM LEVEL 8.3 MG/DL (8.8-10.2); CARBON DIOXIDE LEVEL 24 MEQ/L (21-32); CHLORIDE LEVEL 97 MEQ/L (98-107); CREATININE FOR GFR 8.42 MG/DL (0.70-1.30); GLOMERULAR FILTRATION RATE 8.2 (>42); GLUCOSE, FASTING 131 MG/DL (70-100); MAGNESIUM LEVEL 2.4 MG/DL (1.8-2.4); POTASSIUM SERUM 5.3 MEQ/L (3.5-5.1); SODIUM LEVEL 136 MEQ/L (136-145); TOTAL PROTEIN 6.8 GM/DL (6.4-8.2); VANCOMYCIN RANDOM 11.8 UG/ML
[2018-02-01] MEDS: HumaLOG INSULIN (NovoLOG) PER UNIT SC ×4 (06:57→21:08)
[2018-02-01] MEDS: VANCOMYCIN HCL 1,000 MG, VIAL MATE ADAPTER 1 EACH in D5W 250 ML IV ×2 (08:03→15:37)
[2018-02-01 12:56] LABS: IRON (FE) 46 UG/DL (65-175); PERCENT SATURATION 35.9 % (19.7-50.0); TOTAL IRON BINDING CAPACITY 128 UG/DL (250-450)
[2018-02-01] MEDS: **VANCO AFTER HD** MISC XX (15:43)
[2018-02-01] MEDS ORDERED: BUPIVACAINE HCL 0.5% 10 ML VIAL As Ordered (16:28)
[2018-02-01] MEDS: LIDOCAINE 1% SDV INJ 30 ML VIAL As Ordered (17:14)
[2018-02-01] MEDS: BUPIVACAINE HCL 0.5% 30 ML VIAL As Ordered (17:34)
[2018-02-01] MEDS: LIDOCAINE 1% MDV 20ML VIAL As Ordered (17:35)
[2018-02-01] MEDS ORDERED: LIDOCAINE 2% INJ 100 MG/5 ML SDV (FOR ANES.) As Ordered (17:36)
[2018-02-01] MEDS ORDERED: fentaNYL 100 MCG/2 ML INJECTION (J3010) As Ordered (17:36)
[2018-02-01] MEDS ORDERED: ONDANSETRON 4MG/2ML VIAL (J2405) As Ordered (17:36)
[2018-02-01] MEDS ORDERED: PROPOFOL 200 MG/20 ML VIAL As Ordered ×3 (17:36)
[2018-02-01] MEDS ORDERED: MIDAZOLAM INJ 2 MG/2 ML VIAL (J2250) As Ordered (17:36)
[2018-02-01 17:58] LABS: BEDSIDE GLUCOSE 125 MG/DL (83-110)
[2018-02-01] MEDS: ATORVASTATIN 20 MG TAB PO (21:08)
[2018-02-01] MEDS: LEVEMIR (INSULIN DETEMIR) 1 UNITS/0.01ML SC (21:08)
[2018-02-01] MEDS: CEFEPIME HCL 0.5 GM in D5W 50 ML IV (21:09)
[2018-02-01] MEDS: LATANOPROST 0.005% OPHTH SOLN 2.5 ML OU (21:09)
[2018-02-02] MEDS: PERCOCET 5MG/325MG TAB PO ×3 (00:52→20:46)
[2018-02-02 06:11] LABS: HEMATOCRIT 26.7 % (42.0-52.0); HEMOGLOBIN 8.1 g/dl (13.5-17.5); MEAN CORPUSCULAR HEMOGLOBIN 28.2 pg (27.0-33.0); MEAN CORPUSCULAR HGB CONC 30.3 g/dl (32.0-36.5); PLATELET COUNT, AUTOMATED 229 10^3/uL (150-450); RED BLOOD COUNT 2.87 10^6/uL (4.30-6.10); RED CELL DISTRIBUTION WIDTH 18.8 % (11.5-14.5); WHITE BLOOD COUNT 13.6 10^3/uL (4.0-10.0)
[2018-02-02 06:21] LABS: INR 1.49; PROTHROMBIN TIME 18.3 SECONDS (12.1-14.4)
[2018-02-02 06:32] LABS: ALBUMIN 2.1 GM/DL (3.2-5.2); ALBUMIN/GLOBULIN RATIO 0.53 (1.00-1.93); ALKALINE PHOSPHATASE 92 U/L (45-117); ALT/SGPT 15 U/L (12-78); ANION GAP 10 MEQ/L (8-16); AST/SGOT 15 U/L (7-37); BILIRUBIN,TOTAL 0.6 MG/DL (0.2-1.0); BLOOD UREA NITROGEN 33 MG/DL (7-18); CALCIUM LEVEL 7.8 MG/DL (8.8-10.2); CARBON DIOXIDE LEVEL 27 MEQ/L (21-32); CHLORIDE LEVEL 100 MEQ/L (98-107); CREATININE FOR GFR 5.69 MG/DL (0.70-1.30); GLOMERULAR FILTRATION RATE 12.8 (>42); GLUCOSE, FASTING 124 MG/DL (70-100); MAGNESIUM LEVEL 2.1 MG/DL (1.8-2.4); SODIUM LEVEL 137 MEQ/L (136-145); TOTAL PROTEIN 6.1 GM/DL (6.4-8.2)
[2018-02-02 07:08] LABS: BEDSIDE GLUCOSE 126 MG/DL (83-110)
[2018-02-02 07:08] LABS: BEDSIDE GLUCOSE 181 MG/DL (83-110)
[2018-02-02 07:08] LABS: BEDSIDE GLUCOSE 135 MG/DL (83-110)
[2018-02-02 07:08] LABS: BEDSIDE GLUCOSE 144 MG/DL (83-110)
[2018-02-02] MEDS: (RENVELA) SEVELAMER **CARBONate** 800 MG TAB PO (08:10)
[2018-02-02] MEDS: NEPHRO-VIT TAB (NEPHROCAPS) PO (08:11)
[2018-02-02] MEDS: ASPIRIN 81 MG ENTERIC TAB PO (08:11)
[2018-02-02] MEDS: GABAPENTIN 100 MG CAP PO (08:11)
[2018-02-02] MEDS: CYANOCOBALAMIN 500 MCG TAB PO (08:11)
[2018-02-02] MEDS: VITAMIN D 1,000 INTERNATIONAL UNITS TABLET PO (08:11)
[2018-02-02] MEDS: MIDODRINE 5 MG TAB PO ×3 (08:11→16:00)
[2018-02-02] MEDS: HumaLOG INSULIN (NovoLOG) PER UNIT SC ×4 (08:12→20:44)
[2018-02-02] MEDS: HEPARIN SOD (PORCINE) 5000 UNITS/ML VIAL SQ ×2 (08:12→20:45)
[2018-02-02] MEDS: SENOKOT S TAB PO ×2 (08:12→20:43)
[2018-02-02] MEDS: METOPROLOL TART 25 MG TABLET PO ×2 (08:13→20:44)
[2018-02-02] MEDS: **VANCO AFTER HD** MISC XX (16:00)
[2018-02-02] MEDS: ATORVASTATIN 20 MG TAB PO (20:43)
[2018-02-02] MEDS: LEVEMIR (INSULIN DETEMIR) 1 UNITS/0.01ML SC (20:44)
[2018-02-02] MEDS: LATANOPROST 0.005% OPHTH SOLN 2.5 ML OU (20:45)
[2018-02-02] MEDS: CEFEPIME HCL 0.5 GM in D5W 50 ML IV (20:45)
[2018-02-03 01:26] LABS: BEDSIDE GLUCOSE 159 MG/DL (83-110)
[2018-02-03 01:27] LABS: BEDSIDE GLUCOSE 164 MG/DL (83-110)
[2018-02-03 01:27] LABS: BEDSIDE GLUCOSE 179 MG/DL (83-110)
[2018-02-03] MEDS: MIDODRINE 5 MG TAB PO ×3 (06:31→16:44)
[2018-02-03] MEDS: CYANOCOBALAMIN 500 MCG TAB PO (06:32)
[2018-02-03] MEDS: ASPIRIN 81 MG ENTERIC TAB PO (06:32)
[2018-02-03] MEDS: VITAMIN D 1,000 INTERNATIONAL UNITS TABLET PO (06:32)
[2018-02-03] MEDS: (RENVELA) SEVELAMER **CARBONate** 800 MG TAB PO (06:32)
[2018-02-03] MEDS: NEPHRO-VIT TAB (NEPHROCAPS) PO (06:32)
[2018-02-03] MEDS: METOPROLOL TART 25 MG TABLET PO ×2 (06:33→21:47)
[2018-02-03] MEDS: HEPARIN SOD (PORCINE) 5000 UNITS/ML VIAL SQ ×2 (06:33→21:47)
[2018-02-03] MEDS: SENOKOT S TAB PO ×2 (06:33→21:48)
[2018-02-03] MEDS: HumaLOG INSULIN (NovoLOG) PER UNIT SC ×4 (06:58→21:00)
[2018-02-03] MEDS: LACTOBACILLUS ACIDOPHILUS CAP (BACID) PO ×2 (08:00→17:37)
[2018-02-03 08:53] LABS: HEMATOCRIT 25.9 % (42.0-52.0); HEMOGLOBIN 7.7 g/dl (13.5-17.5); MEAN CORPUSCULAR HEMOGLOBIN 28.4 pg (27.0-33.0); MEAN CORPUSCULAR HGB CONC 29.7 g/dl (32.0-36.5); MEAN CORPUSCULAR VOLUME 95.6 fl (80.0-96.0); PLATELET COUNT, AUTOMATED 226 10^3/uL (150-450); RED BLOOD COUNT 2.71 10^6/uL (4.30-6.10); RED CELL DISTRIBUTION WIDTH 18.8 % (11.5-14.5)
[2018-02-03 09:00] LABS: INR 1.48; PROTHROMBIN TIME 18.2 SECONDS (12.1-14.4)
[2018-02-03 09:19] LABS: ALBUMIN 2.2 GM/DL (3.2-5.2); ALBUMIN/GLOBULIN RATIO 0.55 (1.00-1.93); ALKALINE PHOSPHATASE 92 U/L (45-117); ALT/SGPT 15 U/L (12-78); ANION GAP 12 MEQ/L (8-16); AST/SGOT 14 U/L (7-37); BILIRUBIN,TOTAL 0.5 MG/DL (0.2-1.0); BLOOD UREA NITROGEN 50 MG/DL (7-18); CALCIUM LEVEL 8.1 MG/DL (8.8-10.2); CARBON DIOXIDE LEVEL 25 MEQ/L (21-32); CHLORIDE LEVEL 100 MEQ/L (98-107); CREATININE FOR GFR 7.46 MG/DL (0.70-1.30); GLOMERULAR FILTRATION RATE 9.4 (>42); GLUCOSE, FASTING 209 MG/DL (70-100); MAGNESIUM LEVEL 2.2 MG/DL (1.8-2.4); POTASSIUM SERUM 5.2 MEQ/L (3.5-5.1); SODIUM LEVEL 137 MEQ/L (136-145); TOTAL PROTEIN 6.2 GM/DL (6.4-8.2); VANCOMYCIN RANDOM 19.5 UG/ML
[2018-02-03 10:56] LABS: IMMEDIATE SPIN CROSSMATCH 1 2
[2018-02-03 11:33] LABS: BEDSIDE GLUCOSE 132 MG/DL (83-110)
[2018-02-03] MEDS: HEPARIN 1,000 UNITS/ML 10ML VIAL (FOR RADIOLOGY& DIALYSIS ONLY) IV (12:41)
[2018-02-03] MEDS: CLINDAMYCIN 600 MG in APPROPRIATE DILUENT 1 EA IV ×3 (12:41→21:50)
[2018-02-03 14:27] LABS: BEDSIDE GLUCOSE 140 MG/DL (83-110)
[2018-02-03] MEDS: LevoFLOXacin 750 MG TABLET PO (14:29)
[2018-02-03] MEDS: IPRATROPIUM 0.5MG/ALBUTEROL 2.5MG INH SOL UD 3ML (DUONEB)(J7620) NEB (16:42)
[2018-02-03 17:08] LABS: BEDSIDE GLUCOSE 228 MG/DL (83-110)
[2018-02-03 21:27] LABS: BEDSIDE GLUCOSE 169 MG/DL (83-110)
[2018-02-03] MEDS: LEVEMIR (INSULIN DETEMIR) 1 UNITS/0.01ML SC (21:48)
[2018-02-03] MEDS: ATORVASTATIN 20 MG TAB PO (21:49)
[2018-02-03] MEDS: LATANOPROST 0.005% OPHTH SOLN 2.5 ML OU (21:49)
[2018-02-04] MEDS: CLINDAMYCIN 600 MG in APPROPRIATE DILUENT 1 EA IV ×4 (04:15→21:33)
[2018-02-04 06:06] LABS: HEMATOCRIT 28.6 % (42.0-52.0); HEMOGLOBIN 8.7 g/dl (13.5-17.5); MEAN CORPUSCULAR HEMOGLOBIN 28.8 pg (27.0-33.0); MEAN CORPUSCULAR HGB CONC 30.4 g/dl (32.0-36.5); MEAN CORPUSCULAR VOLUME 94.7 fl (80.0-96.0); PLATELET COUNT, AUTOMATED 221 10^3/uL (150-450); RED BLOOD COUNT 3.02 10^6/uL (4.30-6.10); RED CELL DISTRIBUTION WIDTH 18.6 % (11.5-14.5); WHITE BLOOD COUNT 14.2 10^3/uL (4.0-10.0)
[2018-02-04 06:18] LABS: INR 1.53; PROTHROMBIN TIME 18.6 SECONDS (12.1-14.4)
[2018-02-04 06:35] LABS: ALBUMIN 2.2 GM/DL (3.2-5.2); ALBUMIN/GLOBULIN RATIO 0.54 (1.00-1.93); ALKALINE PHOSPHATASE 90 U/L (45-117); ALT/SGPT 14 U/L (12-78); ANION GAP 11 MEQ/L (8-16); AST/SGOT 12 U/L (7-37); BILIRUBIN,TOTAL 0.8 MG/DL (0.2-1.0); BLOOD UREA NITROGEN 26 MG/DL (7-18); CALCIUM LEVEL 8.5 MG/DL (8.8-10.2); CARBON DIOXIDE LEVEL 27 MEQ/L (21-32); CHLORIDE LEVEL 100 MEQ/L (98-107); CREATININE FOR GFR 4.75 MG/DL (0.70-1.30); GLOMERULAR FILTRATION RATE 15.8 (>42); GLUCOSE, FASTING 81 MG/DL (70-100); MAGNESIUM LEVEL 2.1 MG/DL (1.8-2.4); POTASSIUM SERUM 4.5 MEQ/L (3.5-5.1); SODIUM LEVEL 138 MEQ/L (136-145); TOTAL PROTEIN 6.3 GM/DL (6.4-8.2)
[2018-02-04] MEDS: HumaLOG INSULIN (NovoLOG) PER UNIT SC ×4 (07:30→21:00)
[2018-02-04] MEDS: IPRATROPIUM 0.5MG/ALBUTEROL 2.5MG INH SOL UD 3ML (DUONEB)(J7620) NEB (07:38)
[2018-02-04] MEDS ORDERED: SENOKOT S TAB PO (09:00)
[2018-02-04] MEDS: LACTOBACILLUS ACIDOPHILUS CAP (BACID) PO ×2 (09:36→17:56)
[2018-02-04] MEDS: (RENVELA) SEVELAMER **CARBONate** 800 MG TAB PO (09:36)
[2018-02-04] MEDS: BISACODYL 10 MG SUPP PR (09:37)
[2018-02-04] MEDS: ASPIRIN 81 MG ENTERIC TAB PO (09:37)
[2018-02-04] MEDS: NEPHRO-VIT TAB (NEPHROCAPS) PO (09:37)
[2018-02-04] MEDS: CYANOCOBALAMIN 500 MCG TAB PO (09:37)
[2018-02-04] MEDS: SENOKOT S TAB PO ×2 (09:37→21:31)
[2018-02-04] MEDS: HEPARIN SOD (PORCINE) 5000 UNITS/ML VIAL SQ ×2 (09:37→21:32)
[2018-02-04] MEDS: GABAPENTIN 100 MG CAP PO (09:37)
[2018-02-04] MEDS: VITAMIN D 1,000 INTERNATIONAL UNITS TABLET PO (09:37)
[2018-02-04] MEDS: MIDODRINE 5 MG TAB PO ×3 (09:37→17:57)
[2018-02-04] MEDS: METOPROLOL TART 25 MG TABLET PO ×2 (09:38→21:31)
[2018-02-04] MEDS: BISACODYL 5 MG TAB PO (13:27)
[2018-02-04] MEDS: WARFARIN SOD 7.5 MG TAB PO (17:56)
[2018-02-04] MEDS: ATORVASTATIN 20 MG TAB PO (21:30)
[2018-02-04] MEDS: LEVEMIR (INSULIN DETEMIR) 1 UNITS/0.01ML SC (21:31)
[2018-02-04] MEDS: LATANOPROST 0.005% OPHTH SOLN 2.5 ML OU (23:12)
[2018-02-05] MEDS: CLINDAMYCIN 600 MG in APPROPRIATE DILUENT 1 EA IV ×4 (04:36→20:58)
[2018-02-05] MEDS: MOM 30ML SUSPENSION UDC PO (06:07)
[2018-02-05] MEDS: MIDODRINE 5 MG TAB PO ×3 (06:08→17:51)
[2018-02-05] MEDS: SENOKOT S TAB PO ×2 (06:08→20:55)
[2018-02-05] MEDS: HEPARIN SOD (PORCINE) 5000 UNITS/ML VIAL SQ ×2 (06:08→20:55)
[2018-02-05] MEDS: CYANOCOBALAMIN 500 MCG TAB PO (06:08)
[2018-02-05] MEDS: LACTOBACILLUS ACIDOPHILUS CAP (BACID) PO ×2 (06:09→17:51)
[2018-02-05] MEDS: ASPIRIN 81 MG ENTERIC TAB PO (06:09)
[2018-02-05] MEDS: VITAMIN D 1,000 INTERNATIONAL UNITS TABLET PO (06:09)
[2018-02-05] MEDS: LevoFLOXacin 500 MG TABLET PO (06:09)
[2018-02-05] MEDS: (RENVELA) SEVELAMER **CARBONate** 800 MG TAB PO (06:10)
[2018-02-05] MEDS: METOPROLOL TART 25 MG TABLET PO ×2 (06:10→20:57)
[2018-02-05] MEDS: NEPHRO-VIT TAB (NEPHROCAPS) PO (06:10)
[2018-02-05] MEDS: HumaLOG INSULIN (NovoLOG) PER UNIT SC ×4 (07:30→20:57)
[2018-02-05 08:12] LABS: ALBUMIN 2.1 GM/DL (3.2-5.2); ANION GAP 10 MEQ/L (8-16); BLOOD UREA NITROGEN 38 MG/DL (7-18); CALCIUM LEVEL 8.5 MG/DL (8.8-10.2); CARBON DIOXIDE LEVEL 27 MEQ/L (21-32); CHLORIDE LEVEL 99 MEQ/L (98-107); CREATININE FOR GFR 6.56 MG/DL (0.70-1.30); GLOMERULAR FILTRATION RATE 10.9 (>42); GLUCOSE, FASTING 126 MG/DL (70-100); PHOSPHORUS LEVEL 5.8 MG/DL (2.5-4.9); POTASSIUM SERUM 4.8 MEQ/L (3.5-5.1); SODIUM LEVEL 136 MEQ/L (136-145)
[2018-02-05] MEDS: HEPARIN 1,000 UNITS/ML 10ML VIAL (FOR RADIOLOGY& DIALYSIS ONLY) IV (12:00)
[2018-02-05 12:32] LABS: BEDSIDE GLUCOSE 106 MG/DL (83-110)
[2018-02-05 12:33] LABS: BEDSIDE GLUCOSE 137 MG/DL (83-110)
[2018-02-05 12:33] LABS: BEDSIDE GLUCOSE 179 MG/DL (83-110)
[2018-02-05 12:33] LABS: BEDSIDE GLUCOSE 108 MG/DL (83-110)
[2018-02-05 14:45] LABS: BEDSIDE GLUCOSE 87 MG/DL (83-110)
[2018-02-05] MEDS: BISACODYL 10 MG SUPP PR (17:50)
[2018-02-05] MEDS: LEVEMIR (INSULIN DETEMIR) 1 UNITS/0.01ML SC (20:56)
[2018-02-05] MEDS: ATORVASTATIN 20 MG TAB PO (20:56)
[2018-02-05] MEDS: LATANOPROST 0.005% OPHTH SOLN 2.5 ML OU (20:57)
[2018-02-06] MEDS: CLINDAMYCIN 600 MG in APPROPRIATE DILUENT 1 EA IV ×4 (03:17→21:21)
[2018-02-06] MEDS: HumaLOG INSULIN (NovoLOG) PER UNIT SC ×4 (07:30→21:21)
[2018-02-06] MEDS: MIDODRINE 5 MG TAB PO ×3 (08:53→15:49)
[2018-02-06] MEDS: SENOKOT S TAB PO ×2 (08:54→21:20)
[2018-02-06] MEDS: (RENVELA) SEVELAMER **CARBONate** 800 MG TAB PO (08:54)
[2018-02-06] MEDS: LACTOBACILLUS ACIDOPHILUS CAP (BACID) PO ×2 (08:54→17:28)
[2018-02-06] MEDS: VITAMIN D 1,000 INTERNATIONAL UNITS TABLET PO (08:54)
[2018-02-06] MEDS: GABAPENTIN 100 MG CAP PO (08:54)
[2018-02-06] MEDS: METOPROLOL TART 25 MG TABLET PO ×2 (08:55→21:22)
[2018-02-06] MEDS: NEPHRO-VIT TAB (NEPHROCAPS) PO (08:55)
[2018-02-06] MEDS: ASPIRIN 81 MG ENTERIC TAB PO (08:55)
[2018-02-06] MEDS: CYANOCOBALAMIN 500 MCG TAB PO (08:55)
[2018-02-06] MEDS: HEPARIN SOD (PORCINE) 5000 UNITS/ML VIAL SQ ×2 (08:56→21:20)
[2018-02-06 10:06] LABS: HEMATOCRIT 29.6 % (42.0-52.0); HEMOGLOBIN 8.9 g/dl (13.5-17.5); MEAN CORPUSCULAR HEMOGLOBIN 28.9 pg (27.0-33.0); MEAN CORPUSCULAR HGB CONC 30.1 g/dl (32.0-36.5); MEAN CORPUSCULAR VOLUME 96.1 fl (80.0-96.0); PLATELET COUNT, AUTOMATED 262 10^3/uL (150-450); RED BLOOD COUNT 3.08 10^6/uL (4.30-6.10); RED CELL DISTRIBUTION WIDTH 18.9 % (11.5-14.5); WHITE BLOOD COUNT 10.8 10^3/uL (4.0-10.0)
[2018-02-06] MEDS: IPRATROPIUM 0.5MG/ALBUTEROL 2.5MG INH SOL UD 3ML (DUONEB)(J7620) NEB (10:08)
[2018-02-06 10:17] LABS: ANION GAP 11 MEQ/L (8-16); BLOOD UREA NITROGEN 24 MG/DL (7-18); CALCIUM LEVEL 8.4 MG/DL (8.8-10.2); CARBON DIOXIDE LEVEL 27 MEQ/L (21-32); CHLORIDE LEVEL 101 MEQ/L (98-107); CREATININE FOR GFR 4.58 MG/DL (0.70-1.30); GLOMERULAR FILTRATION RATE 16.5 (>42); GLUCOSE, FASTING 95 MG/DL (70-100); POTASSIUM SERUM 4.2 MEQ/L (3.5-5.1); SODIUM LEVEL 139 MEQ/L (136-145)
[2018-02-06 11:53] LABS: BEDSIDE GLUCOSE 131 MG/DL (83-110)
[2018-02-06 11:53] LABS: BEDSIDE GLUCOSE 264 MG/DL (83-110)
[2018-02-06 11:53] LABS: BEDSIDE GLUCOSE 169 MG/DL (83-110)
[2018-02-06 11:53] LABS: BEDSIDE GLUCOSE 92 MG/DL (83-110)
[2018-02-06] MEDS: LACTULOSE 20 GM/30 ML SYRUP UD PO (12:45)
[2018-02-06] MEDS: PERCOCET 5MG/325MG TAB PO (12:55)
[2018-02-06 16:36] LABS: BEDSIDE GLUCOSE 159 MG/DL (83-110)
[2018-02-06 20:53] LABS: BEDSIDE GLUCOSE 159 MG/DL (83-110)
[2018-02-06] MEDS: ATORVASTATIN 20 MG TAB PO (21:20)
[2018-02-06] MEDS: LATANOPROST 0.005% OPHTH SOLN 2.5 ML OU (21:20)
[2018-02-06] MEDS: LEVEMIR (INSULIN DETEMIR) 1 UNITS/0.01ML SC (21:21)
[2018-02-07] MEDS: CLINDAMYCIN 600 MG in APPROPRIATE DILUENT 1 EA IV ×4 (03:25→20:56)
[2018-02-07] MEDS: LevoFLOXacin 500 MG TABLET PO (05:23)
[2018-02-07 07:07] LABS: C REACTIVE PROTEIN QUANTITATIV 8.43 MG/DL (0.00-0.30)
[2018-02-07] MEDS: HumaLOG INSULIN (NovoLOG) PER UNIT SC ×4 (07:30→20:51)
[2018-02-07] MEDS: (RENVELA) SEVELAMER **CARBONate** 800 MG TAB PO (08:35)
[2018-02-07] MEDS: MOM 30ML SUSPENSION UDC PO (08:35)
[2018-02-07] MEDS: SENOKOT S TAB PO ×3 (08:35→20:51)
[2018-02-07] MEDS: VITAMIN D 1,000 INTERNATIONAL UNITS TABLET PO (08:36)
[2018-02-07] MEDS: ASPIRIN 81 MG ENTERIC TAB PO (08:36)
[2018-02-07] MEDS: NEPHRO-VIT TAB (NEPHROCAPS) PO (08:36)
[2018-02-07] MEDS: GABAPENTIN 100 MG CAP PO (08:36)
[2018-02-07] MEDS: CYANOCOBALAMIN 500 MCG TAB PO (08:36)
[2018-02-07] MEDS: LACTOBACILLUS ACIDOPHILUS CAP (BACID) PO ×2 (08:36→17:53)
[2018-02-07] MEDS: MIDODRINE 5 MG TAB PO ×3 (08:36→16:17)
[2018-02-07] MEDS: HEPARIN SOD (PORCINE) 5000 UNITS/ML VIAL SQ ×2 (08:37→20:56)
[2018-02-07] MEDS: METOPROLOL TART 25 MG TABLET PO ×2 (08:37→20:51)
[2018-02-07 20:36] LABS: BEDSIDE GLUCOSE 184 MG/DL (83-110)
[2018-02-07] MEDS: ATORVASTATIN 20 MG TAB PO (20:50)
[2018-02-07] MEDS: LEVEMIR (INSULIN DETEMIR) 1 UNITS/0.01ML SC (20:55)
[2018-02-07] MEDS: LATANOPROST 0.005% OPHTH SOLN 2.5 ML OU (20:56)
[2018-02-08 03:08] LABS: BEDSIDE GLUCOSE 148 MG/DL (83-110)
[2018-02-08 03:08] LABS: BEDSIDE GLUCOSE 98 MG/DL (83-110)
[2018-02-08 03:08] LABS: BEDSIDE GLUCOSE 100 MG/DL (83-110)
[2018-02-08] MEDS: CLINDAMYCIN 600 MG in APPROPRIATE DILUENT 1 EA IV (03:34)
[2018-02-08] MEDS: MIDODRINE 5 MG TAB PO ×3 (06:21→16:00)
[2018-02-08] MEDS: ASPIRIN 81 MG ENTERIC TAB PO (06:21)
[2018-02-08] MEDS: NEPHRO-VIT TAB (NEPHROCAPS) PO (06:21)
[2018-02-08] MEDS: CYANOCOBALAMIN 500 MCG TAB PO (06:21)
[2018-02-08] MEDS: VITAMIN D 1,000 INTERNATIONAL UNITS TABLET PO (06:22)
[2018-02-08] MEDS: (RENVELA) SEVELAMER **CARBONate** 800 MG TAB PO (06:22)
[2018-02-08] MEDS: SENOKOT S TAB PO ×2 (06:22→22:27)
[2018-02-08] MEDS: HEPARIN SOD (PORCINE) 5000 UNITS/ML VIAL SQ (06:22)
[2018-02-08] MEDS: LACTOBACILLUS ACIDOPHILUS CAP (BACID) PO ×2 (06:22→17:04)
[2018-02-08] MEDS: METOPROLOL TART 25 MG TABLET PO ×2 (06:23→22:27)
[2018-02-08 06:27] LABS: HEMATOCRIT 29.4 % (42.0-52.0); HEMOGLOBIN 9.1 g/dl (13.5-17.5); MEAN CORPUSCULAR HEMOGLOBIN 29.2 pg (27.0-33.0); MEAN CORPUSCULAR VOLUME 94.2 fl (80.0-96.0); PLATELET COUNT, AUTOMATED 254 10^3/uL (150-450); RED BLOOD COUNT 3.12 10^6/uL (4.30-6.10); RED CELL DISTRIBUTION WIDTH 19.1 % (11.5-14.5); WHITE BLOOD COUNT 10.1 10^3/uL (4.0-10.0)
[2018-02-08 06:54] LABS: ANION GAP 13 MEQ/L (8-16); BLOOD UREA NITROGEN 49 MG/DL (7-18); CALCIUM LEVEL 8.3 MG/DL (8.8-10.2); CARBON DIOXIDE LEVEL 26 MEQ/L (21-32); CHLORIDE LEVEL 101 MEQ/L (98-107); GLOMERULAR FILTRATION RATE 9.3 (>42); GLUCOSE, FASTING 136 MG/DL (70-100); POTASSIUM SERUM 5.1 MEQ/L (3.5-5.1); SODIUM LEVEL 140 MEQ/L (136-145)
[2018-02-08] MEDS: HumaLOG INSULIN (NovoLOG) PER UNIT SC ×4 (07:00→22:27)
[2018-02-08] MEDS: ENOXAPARIN 40 MG/0.4 ML SYRINGE (J1650) SC (09:00)
[2018-02-08] MEDS: HEPARIN 1,000 UNITS/ML 10ML VIAL (FOR RADIOLOGY& DIALYSIS ONLY) IV (10:15)
[2018-02-08] MEDS: CLINDAMYCIN 150 MG CAP PO ×2 (14:29→22:28)
[2018-02-08 16:40] LABS: BEDSIDE GLUCOSE 219 MG/DL (83-110)
[2018-02-08] MEDS: WARFARIN SOD 5 MG TAB PO (17:04)
[2018-02-08 20:43] LABS: BEDSIDE GLUCOSE 82 MG/DL (83-110)
[2018-02-08 22:08] LABS: BEDSIDE GLUCOSE 103 MG/DL (83-110)
[2018-02-08] MEDS: ATORVASTATIN 20 MG TAB PO (22:26)
[2018-02-08] MEDS: LEVEMIR (INSULIN DETEMIR) 1 UNITS/0.01ML SC (22:28)
[2018-02-08] MEDS: ACETAMINOPHEN TAB 650MG DOSE (2X325MG) PO (22:29)
[2018-02-08] MEDS: LATANOPROST 0.005% OPHTH SOLN 2.5 ML OU (22:31)
[2018-02-09] MEDS: IPRATROPIUM 0.5MG/ALBUTEROL 2.5MG INH SOL UD 3ML (DUONEB)(J7620) NEB ×2 (01:21→20:22)
[2018-02-09 02:00] LABS: BEDSIDE GLUCOSE 185 MG/DL (83-110)
[2018-02-09 05:56] LABS: INR 1.46
[2018-02-09] MEDS: LevoFLOXacin 500 MG TABLET PO (06:01)
[2018-02-09] MEDS: CLINDAMYCIN 150 MG CAP PO ×3 (06:01→21:14)
[2018-02-09 06:10] LABS: BEDSIDE GLUCOSE 114 MG/DL (83-110)
[2018-02-09] MEDS: GABAPENTIN 100 MG CAP PO (08:36)
[2018-02-09] MEDS: HumaLOG INSULIN (NovoLOG) PER UNIT SC ×4 (08:36→21:13)
[2018-02-09] MEDS: (RENVELA) SEVELAMER **CARBONate** 800 MG TAB PO (08:36)
[2018-02-09] MEDS: NEPHRO-VIT TAB (NEPHROCAPS) PO (08:36)
[2018-02-09] MEDS: SENOKOT S TAB PO ×2 (08:36→21:13)
[2018-02-09] MEDS: CYANOCOBALAMIN 500 MCG TAB PO (08:37)
[2018-02-09] MEDS: LACTOBACILLUS ACIDOPHILUS CAP (BACID) PO ×2 (08:37→18:17)
[2018-02-09] MEDS: ASPIRIN 81 MG ENTERIC TAB PO (08:37)
[2018-02-09] MEDS: METOPROLOL TART 25 MG TABLET PO ×2 (08:37→21:13)
[2018-02-09] MEDS: VITAMIN D 1,000 INTERNATIONAL UNITS TABLET PO (08:37)
[2018-02-09] MEDS: MIDODRINE 5 MG TAB PO ×3 (08:38→15:29)
[2018-02-09 12:06] LABS: BEDSIDE GLUCOSE 87 MG/DL (83-110)
[2018-02-09 17:44] LABS: BEDSIDE GLUCOSE 113 MG/DL (83-110)
[2018-02-09] MEDS: WARFARIN SOD 5 MG TAB PO ×2 (18:17)
[2018-02-09 20:30] LABS: BEDSIDE GLUCOSE 150 MG/DL (83-110)
[2018-02-09] MEDS: ATORVASTATIN 20 MG TAB PO (21:13)
[2018-02-09] MEDS: LATANOPROST 0.005% OPHTH SOLN 2.5 ML OU (21:14)
[2018-02-09] MEDS: LEVEMIR (INSULIN DETEMIR) 1 UNITS/0.01ML SC (21:14)
[2018-02-10 06:28] LABS: HEMATOCRIT 30.2 % (42.0-52.0); HEMOGLOBIN 9.3 g/dl (13.5-17.5); MEAN CORPUSCULAR HEMOGLOBIN 29.2 pg (27.0-33.0); MEAN CORPUSCULAR HGB CONC 30.8 g/dl (32.0-36.5); MEAN CORPUSCULAR VOLUME 94.7 fl (80.0-96.0); PLATELET COUNT, AUTOMATED 217 10^3/uL (150-450); RED BLOOD COUNT 3.19 10^6/uL (4.30-6.10); RED CELL DISTRIBUTION WIDTH 19.5 % (11.5-14.5); WHITE BLOOD COUNT 10.2 10^3/uL (4.0-10.0)
[2018-02-10] MEDS: CLINDAMYCIN 150 MG CAP PO ×3 (06:38→21:36)
[2018-02-10] MEDS: MIDODRINE 5 MG TAB PO ×3 (06:38→17:09)
[2018-02-10] MEDS: ASPIRIN 81 MG ENTERIC TAB PO (06:39)
[2018-02-10 06:44] LABS: ANION GAP 11 MEQ/L (8-16); BLOOD UREA NITROGEN 47 MG/DL (7-18); CALCIUM LEVEL 8.9 MG/DL (8.8-10.2); CARBON DIOXIDE LEVEL 26 MEQ/L (21-32); CHLORIDE LEVEL 100 MEQ/L (98-107); CREATININE FOR GFR 7.05 MG/DL (0.70-1.30); GLUCOSE, FASTING 127 MG/DL (70-100); INR 1.54; POTASSIUM SERUM 4.9 MEQ/L (3.5-5.1); PROTHROMBIN TIME 18.7 SECONDS (12.1-14.4); SODIUM LEVEL 137 MEQ/L (136-145)
[2018-02-10] MEDS: NEPHRO-VIT TAB (NEPHROCAPS) PO (06:48)
[2018-02-10] MEDS: METOPROLOL TART 25 MG TABLET PO ×2 (06:48→21:35)
[2018-02-10] MEDS: CYANOCOBALAMIN 500 MCG TAB PO (06:49)
[2018-02-10] MEDS: SENOKOT S TAB PO ×2 (06:49→21:35)
[2018-02-10] MEDS: VITAMIN D 1,000 INTERNATIONAL UNITS TABLET PO (06:49)
[2018-02-10] MEDS: LACTOBACILLUS ACIDOPHILUS CAP (BACID) PO ×2 (08:11→17:09)
[2018-02-10] MEDS: (RENVELA) SEVELAMER **CARBONate** 800 MG TAB PO (08:11)
[2018-02-10] MEDS: HumaLOG INSULIN (NovoLOG) PER UNIT SC ×4 (08:11→21:35)
[2018-02-10] MEDS: HEPARIN 1,000 UNITS/ML 10ML VIAL (FOR RADIOLOGY& DIALYSIS ONLY) IV (12:00)
[2018-02-10 14:05] LABS: BEDSIDE GLUCOSE 81 MG/DL (83-110)
[2018-02-10] MEDS: IPRATROPIUM 0.5MG/ALBUTEROL 2.5MG INH SOL UD 3ML (DUONEB)(J7620) NEB ×2 (15:24→23:30)
[2018-02-10 16:52] LABS: BEDSIDE GLUCOSE 186 MG/DL (83-110)
[2018-02-10] MEDS: WARFARIN SOD 5 MG TAB PO (17:10)
[2018-02-10 20:20] LABS: ANION GAP 9 MEQ/L (8-16); BLOOD UREA NITROGEN 25 MG/DL (7-18); CALCIUM LEVEL 8.9 MG/DL (8.8-10.2); CARBON DIOXIDE LEVEL 29 MEQ/L (21-32); CHLORIDE LEVEL 100 MEQ/L (98-107); CREATININE FOR GFR 4.54 MG/DL (0.70-1.30); GLOMERULAR FILTRATION RATE 16.6 (>42); GLUCOSE, FASTING 154 MG/DL (70-100); SODIUM LEVEL 138 MEQ/L (136-145)
[2018-02-10 20:21] LABS: POTASSIUM SERUM 3.8 MEQ/L (3.5-5.1)
[2018-02-10 20:49] LABS: BEDSIDE GLUCOSE 143 MG/DL (83-110)
[2018-02-10] MEDS: ATORVASTATIN 20 MG TAB PO (21:34)
[2018-02-10] MEDS: LEVEMIR (INSULIN DETEMIR) 1 UNITS/0.01ML SC (21:36)
[2018-02-10] MEDS: LATANOPROST 0.005% OPHTH SOLN 2.5 ML OU (21:36)
[2018-02-11 06:00] LABS: INR 1.59; PROTHROMBIN TIME 19.2 SECONDS (12.1-14.4)
[2018-02-11] MEDS: CLINDAMYCIN 150 MG CAP PO ×3 (06:38→21:10)
[2018-02-11] MEDS: LevoFLOXacin 500 MG TABLET PO (06:38)
[2018-02-11] MEDS: (RENVELA) SEVELAMER **CARBONate** 800 MG TAB PO (08:31)
[2018-02-11] MEDS: ASPIRIN 81 MG ENTERIC TAB PO (08:31)
[2018-02-11] MEDS: LACTOBACILLUS ACIDOPHILUS CAP (BACID) PO ×2 (08:31→17:45)
[2018-02-11] MEDS: MIDODRINE 5 MG TAB PO ×4 (08:31→16:00)
[2018-02-11] MEDS: NEPHRO-VIT TAB (NEPHROCAPS) PO (08:31)
[2018-02-11] MEDS: GABAPENTIN 100 MG CAP PO (08:31)
[2018-02-11] MEDS: HumaLOG INSULIN (NovoLOG) PER UNIT SC ×4 (08:31→21:00)
[2018-02-11] MEDS: SENOKOT S TAB PO ×2 (08:32→21:10)
[2018-02-11] MEDS: METOPROLOL TART 25 MG TABLET PO ×2 (08:32→21:13)
[2018-02-11] MEDS: VITAMIN D 1,000 INTERNATIONAL UNITS TABLET PO (08:32)
[2018-02-11] MEDS: CYANOCOBALAMIN 500 MCG TAB PO (08:32)
[2018-02-11] MEDS: WARFARIN SOD 3 MG TAB PO (17:45)
[2018-02-11] MEDS: WARFARIN SOD 5 MG TAB PO (17:45)
[2018-02-11] MEDS: IPRATROPIUM 0.5MG/ALBUTEROL 2.5MG INH SOL UD 3ML (DUONEB)(J7620) NEB (20:52)
[2018-02-11] MEDS: LEVEMIR (INSULIN DETEMIR) 1 UNITS/0.01ML SC (21:10)
[2018-02-11] MEDS: ATORVASTATIN 20 MG TAB PO (21:10)
[2018-02-11] MEDS: LATANOPROST 0.005% OPHTH SOLN 2.5 ML OU (21:14)
[2018-02-12] MEDS: LACTOBACILLUS ACIDOPHILUS CAP (BACID) PO ×2 (06:14→17:53)
[2018-02-12] MEDS: CLINDAMYCIN 150 MG CAP PO ×3 (06:14→21:04)
[2018-02-12] MEDS: NEPHRO-VIT TAB (NEPHROCAPS) PO (06:15)
[2018-02-12] MEDS: ASPIRIN 81 MG ENTERIC TAB PO (06:15)
[2018-02-12] MEDS: SENOKOT S TAB PO ×2 (06:15→21:02)
[2018-02-12] MEDS: MIDODRINE 5 MG TAB PO ×3 (06:16→15:39)
[2018-02-12] MEDS: CYANOCOBALAMIN 500 MCG TAB PO (06:16)
[2018-02-12] MEDS: METOPROLOL TART 25 MG TABLET PO ×2 (06:17→21:02)
[2018-02-12] MEDS: VITAMIN D 1,000 INTERNATIONAL UNITS TABLET PO (06:17)
[2018-02-12 06:22] LABS: INR 1.81; PROTHROMBIN TIME 21.3 SECONDS (12.1-14.4)
[2018-02-12] MEDS: HumaLOG INSULIN (NovoLOG) PER UNIT SC ×4 (07:57→21:03)
[2018-02-12] MEDS: (RENVELA) SEVELAMER **CARBONate** 800 MG TAB PO (07:57)
[2018-02-12 09:19] LABS: BASO # 0.1 10^3/uL (0.0-0.2); BASO % 0.8 % (0.0-1.0); EOS # 0.3 10^3/uL (0.0-0.50); EOS % 3.2 % (0.0-3.0); HEMATOCRIT 31.1 % (42.0-52.0); HEMOGLOBIN 9.4 g/dl (13.5-17.5); IMMATURE GRANULOCYTE % 0.5 % (0-3.0); LYMPH # 1.2 10^3/uL (1.5-4.5); LYMPH % 13.6 % (24.0-44.0); MEAN CORPUSCULAR HEMOGLOBIN 29.4 pg (27.0-33.0); MEAN CORPUSCULAR HGB CONC 30.2 g/dl (32.0-36.5); MEAN CORPUSCULAR VOLUME 97.2 fl (80.0-96.0); MONO # 1.1 10^3/uL (0.0-0.8); MONO % 12.9 % (0.0-5.0); PLATELET COUNT, AUTOMATED 207 10^3/uL (150-450); WHITE BLOOD COUNT 8.7 10^3/uL (4.0-10.0)
[2018-02-12 09:40] LABS: ALBUMIN 2.6 GM/DL (3.2-5.2); ANION GAP 12 MEQ/L (8-16); BLOOD UREA NITROGEN 46 MG/DL (7-18); CARBON DIOXIDE LEVEL 26 MEQ/L (21-32); CHLORIDE LEVEL 101 MEQ/L (98-107); CREATININE FOR GFR 7.02 MG/DL (0.70-1.30); GLOMERULAR FILTRATION RATE 10.1 (>42); GLUCOSE, FASTING 116 MG/DL (70-100); PHOSPHORUS LEVEL 5.8 MG/DL (2.5-4.9); POTASSIUM SERUM 4.9 MEQ/L (3.5-5.1); SODIUM LEVEL 139 MEQ/L (136-145)
[2018-02-12] MEDS: HEPARIN 1,000 UNITS/ML 10ML VIAL (FOR RADIOLOGY& DIALYSIS ONLY) IV (10:00)
[2018-02-12] MEDS: WARFARIN SOD 3 MG TAB PO (15:38)
[2018-02-12] MEDS: ATORVASTATIN 20 MG TAB PO (21:02)
[2018-02-12] MEDS: LATANOPROST 0.005% OPHTH SOLN 2.5 ML OU (21:03)
[2018-02-12] MEDS: LEVEMIR (INSULIN DETEMIR) 1 UNITS/0.01ML SC (21:03)
[2018-02-13] MEDS: IPRATROPIUM 0.5MG/ALBUTEROL 2.5MG INH SOL UD 3ML (DUONEB)(J7620) NEB (02:38)
[2018-02-13] MEDS: CLINDAMYCIN 150 MG CAP PO ×3 (05:41→21:46)
[2018-02-13 06:10] LABS: INR 2.28; PROTHROMBIN TIME 25.6 SECONDS (12.1-14.4)
[2018-02-13] MEDS: MIDODRINE 5 MG TAB PO ×3 (09:14→16:49)
[2018-02-13] MEDS: METOPROLOL TART 25 MG TABLET PO ×2 (09:15→21:45)
[2018-02-13] MEDS: CYANOCOBALAMIN 500 MCG TAB PO (09:15)
[2018-02-13] MEDS: (RENVELA) SEVELAMER **CARBONate** 800 MG TAB PO (09:15)
[2018-02-13] MEDS: VITAMIN D 1,000 INTERNATIONAL UNITS TABLET PO (09:15)
[2018-02-13] MEDS: GABAPENTIN 100 MG CAP PO (09:16)
[2018-02-13] MEDS: ASPIRIN 81 MG ENTERIC TAB PO (09:16)
[2018-02-13] MEDS: NEPHRO-VIT TAB (NEPHROCAPS) PO (09:16)
[2018-02-13] MEDS: SENOKOT S TAB PO ×2 (09:16→21:45)
[2018-02-13] MEDS: LACTOBACILLUS ACIDOPHILUS CAP (BACID) PO ×2 (09:16→17:53)
[2018-02-13] MEDS: HumaLOG INSULIN (NovoLOG) PER UNIT SC ×4 (09:16→21:45)
[2018-02-13] MEDS: CALCIUM CARBONATE 500 MG CHEW U/D PO (09:20)
[2018-02-13 11:43] LABS: BEDSIDE GLUCOSE 110 MG/DL (83-110)
[2018-02-13 11:43] LABS: BEDSIDE GLUCOSE 140 MG/DL (83-110)
[2018-02-13 11:43] LABS: BEDSIDE GLUCOSE 107 MG/DL (83-110)
[2018-02-13 11:43] LABS: BEDSIDE GLUCOSE 115 MG/DL (83-110)
[2018-02-13 11:43] LABS: BEDSIDE GLUCOSE 164 MG/DL (83-110)
[2018-02-13 11:44] LABS: BEDSIDE GLUCOSE 175 MG/DL (83-110)
[2018-02-13 11:44] LABS: BEDSIDE GLUCOSE 128 MG/DL (83-110)
[2018-02-13 11:44] LABS: BEDSIDE GLUCOSE 112 MG/DL (83-110)
[2018-02-13 11:44] LABS: BEDSIDE GLUCOSE 159 MG/DL (83-110)
[2018-02-13 16:44] LABS: BEDSIDE GLUCOSE 213 MG/DL (83-110)
[2018-02-13] MEDS: WARFARIN SOD 3 MG TAB PO (16:49)
[2018-02-13 19:44] LABS: BEDSIDE GLUCOSE 60 MG/DL (83-110)
[2018-02-13 20:15] LABS: BEDSIDE GLUCOSE 64 MG/DL (83-110)
[2018-02-13 20:47] LABS: BEDSIDE GLUCOSE 92 MG/DL (83-110)
[2018-02-13] MEDS: ATORVASTATIN 20 MG TAB PO (21:45)
[2018-02-13] MEDS: LATANOPROST 0.005% OPHTH SOLN 2.5 ML OU (21:46)
[2018-02-13] MEDS: LEVEMIR (INSULIN DETEMIR) 1 UNITS/0.01ML SC (21:46)
[2018-02-14 00:19] LABS: BEDSIDE GLUCOSE 154 MG/DL (83-110)
[2018-02-14] MEDS: CLINDAMYCIN 150 MG CAP PO ×3 (05:38→21:41)
[2018-02-14 06:13] LABS: BEDSIDE GLUCOSE 131 MG/DL (83-110)
[2018-02-14] MEDS: CALCIUM CARBONATE 500 MG CHEW U/D PO (06:49)
[2018-02-14] MEDS: NEPHRO-VIT TAB (NEPHROCAPS) PO (09:01)
[2018-02-14] MEDS: HumaLOG INSULIN (NovoLOG) PER UNIT SC ×4 (09:01→21:39)
[2018-02-14] MEDS: (RENVELA) SEVELAMER **CARBONate** 800 MG TAB PO (09:01)
[2018-02-14] MEDS: GABAPENTIN 100 MG CAP PO (09:01)
[2018-02-14] MEDS: CYANOCOBALAMIN 500 MCG TAB PO (09:01)
[2018-02-14] MEDS: SENOKOT S TAB PO ×2 (09:02→21:39)
[2018-02-14] MEDS: METOPROLOL TART 25 MG TABLET PO ×2 (09:02→21:40)
[2018-02-14] MEDS: LACTOBACILLUS ACIDOPHILUS CAP (BACID) PO ×2 (09:02→17:43)
[2018-02-14] MEDS: ASPIRIN 81 MG ENTERIC TAB PO (09:02)
[2018-02-14] MEDS: VITAMIN D 1,000 INTERNATIONAL UNITS TABLET PO (09:02)
[2018-02-14] MEDS: MIDODRINE 5 MG TAB PO ×3 (09:02→16:23)
[2018-02-14 11:56] LABS: BEDSIDE GLUCOSE 103 MG/DL (83-110)
[2018-02-14 17:12] LABS: BEDSIDE GLUCOSE 125 MG/DL (83-110)
[2018-02-14] MEDS: WARFARIN SOD 3 MG TAB PO (17:43)
[2018-02-14 19:54] LABS: BEDSIDE GLUCOSE 175 MG/DL (83-110)
[2018-02-14] MEDS: ATORVASTATIN 20 MG TAB PO (21:39)
[2018-02-14] MEDS: LEVEMIR (INSULIN DETEMIR) 1 UNITS/0.01ML SC (21:41)
[2018-02-14] MEDS: LATANOPROST 0.005% OPHTH SOLN 2.5 ML OU (21:41)
[2018-02-15] MEDS: CLINDAMYCIN 150 MG CAP PO ×3 (06:49→20:34)
[2018-02-15] MEDS: ASPIRIN 81 MG ENTERIC TAB PO (06:50)
[2018-02-15] MEDS: MIDODRINE 5 MG TAB PO ×3 (06:50→16:14)
[2018-02-15] MEDS: METOPROLOL TART 25 MG TABLET PO ×2 (06:51→20:40)
[2018-02-15] MEDS: VITAMIN D 1,000 INTERNATIONAL UNITS TABLET PO (06:51)
[2018-02-15] MEDS: SENOKOT S TAB PO ×2 (06:51→20:34)
[2018-02-15] MEDS: CYANOCOBALAMIN 500 MCG TAB PO (06:51)
[2018-02-15 07:03] LABS: BEDSIDE GLUCOSE 86 MG/DL (83-110)
[2018-02-15] MEDS: HumaLOG INSULIN (NovoLOG) PER UNIT SC ×4 (08:17→20:40)
[2018-02-15] MEDS: NEPHRO-VIT TAB (NEPHROCAPS) PO (08:17)
[2018-02-15] MEDS: (RENVELA) SEVELAMER **CARBONate** 800 MG TAB PO (08:17)
[2018-02-15] MEDS: LACTOBACILLUS ACIDOPHILUS CAP (BACID) PO ×2 (08:17→20:33)
[2018-02-15 11:45] LABS: BEDSIDE GLUCOSE 142 MG/DL (83-110)
[2018-02-15] MEDS: CALCIUM CARBONATE 500 MG CHEW U/D PO (13:50)
[2018-02-15 14:49] LABS: BASO # 0.1 10^3/uL (0.0-0.2); BASO % 0.7 % (0.0-1.0); EOS # 0.3 10^3/uL (0.0-0.50); EOS % 3.6 % (0.0-3.0); HEMATOCRIT 31.2 % (42.0-52.0); HEMOGLOBIN 9.8 g/dl (13.5-17.5); IMMATURE GRANULOCYTE % 0.4 % (0-3.0); LYMPH # 1.2 10^3/uL (1.5-4.5); LYMPH % 14.5 % (24.0-44.0); MEAN CORPUSCULAR HGB CONC 31.4 g/dl (32.0-36.5); MEAN CORPUSCULAR VOLUME 95.4 fl (80.0-96.0); MONO # 0.9 10^3/uL (0.0-0.8); MONO % 11.1 % (0.0-5.0); NEUTROPHILS # 5.7 10^3/uL (1.8-7.7); NEUTROPHILS % 69.7 % (36.0-66.0); PLATELET COUNT, AUTOMATED 176 10^3/uL (150-450); RED BLOOD COUNT 3.27 10^6/uL (4.30-6.10); RED CELL DISTRIBUTION WIDTH 20.7 % (11.5-14.5); WHITE BLOOD COUNT 8.1 10^3/uL (4.0-10.0)
[2018-02-15 15:24] LABS: ALBUMIN 2.8 GM/DL (3.2-5.2); ANION GAP 10 MEQ/L (8-16); BLOOD UREA NITROGEN 55 MG/DL (7-18); CALCIUM LEVEL 8.7 MG/DL (8.8-10.2); CARBON DIOXIDE LEVEL 26 MEQ/L (21-32); CHLORIDE LEVEL 100 MEQ/L (98-107); CREATININE FOR GFR 8.45 MG/DL (0.70-1.30); GLOMERULAR FILTRATION RATE 8.1 (>42); GLUCOSE, FASTING 137 MG/DL (70-100); PHOSPHORUS LEVEL 6.8 MG/DL (2.5-4.9); POTASSIUM SERUM 5.8 MEQ/L (3.5-5.1); SODIUM LEVEL 136 MEQ/L (136-145)
[2018-02-15] MEDS: HEPARIN 1,000 UNITS/ML 10ML VIAL (FOR RADIOLOGY& DIALYSIS ONLY) IV (16:00)
[2018-02-15] MEDS: WARFARIN SOD 3 MG TAB PO (20:34)
[2018-02-15] MEDS: ATORVASTATIN 20 MG TAB PO (20:34)
[2018-02-15] MEDS: ACETAMINOPHEN TAB 650MG DOSE (2X325MG) PO (20:35)
[2018-02-15 20:37] LABS: BEDSIDE GLUCOSE 125 MG/DL (83-110)
[2018-02-15] MEDS: LEVEMIR (INSULIN DETEMIR) 1 UNITS/0.01ML SC (20:40)
[2018-02-15] MEDS: LATANOPROST 0.005% OPHTH SOLN 2.5 ML OU (20:49)
[2018-02-16] MEDS: CLINDAMYCIN 150 MG CAP PO ×3 (05:31→21:54)
[2018-02-16] MEDS: CALCIUM CARBONATE 500 MG CHEW U/D PO (06:09)
[2018-02-16 07:17] LABS: BEDSIDE GLUCOSE 96 MG/DL (83-110)
[2018-02-16] MEDS: HumaLOG INSULIN (NovoLOG) PER UNIT SC ×4 (07:39→21:00)
[2018-02-16] MEDS: GABAPENTIN 100 MG CAP PO (08:35)
[2018-02-16] MEDS: NEPHRO-VIT TAB (NEPHROCAPS) PO (08:35)
[2018-02-16] MEDS: CYANOCOBALAMIN 500 MCG TAB PO (08:35)
[2018-02-16] MEDS: ASPIRIN 81 MG ENTERIC TAB PO (08:35)
[2018-02-16] MEDS: METOPROLOL TART 25 MG TABLET PO ×2 (08:35→21:55)
[2018-02-16] MEDS: LACTOBACILLUS ACIDOPHILUS CAP (BACID) PO ×2 (08:35→16:58)
[2018-02-16] MEDS: MIDODRINE 5 MG TAB PO ×3 (08:35→16:58)
[2018-02-16] MEDS: (RENVELA) SEVELAMER **CARBONate** 800 MG TAB PO (08:35)
[2018-02-16] MEDS: VITAMIN D 1,000 INTERNATIONAL UNITS TABLET PO (08:35)
[2018-02-16] MEDS: SENOKOT S TAB PO ×2 (08:35→21:54)
[2018-02-16 11:59] LABS: BEDSIDE GLUCOSE 105 MG/DL (83-110)
[2018-02-16 16:42] LABS: BEDSIDE GLUCOSE 126 MG/DL (83-110)
[2018-02-16] MEDS: WARFARIN SOD 3 MG TAB PO (16:58)
[2018-02-16] MEDS: CEPACOL LOZENGE PO (17:03)
[2018-02-16 20:35] LABS: BEDSIDE GLUCOSE 197 MG/DL (83-110)
[2018-02-16] MEDS: ATORVASTATIN 20 MG TAB PO (21:54)
[2018-02-16] MEDS: LEVEMIR (INSULIN DETEMIR) 1 UNITS/0.01ML SC (21:55)
[2018-02-16] MEDS: LATANOPROST 0.005% OPHTH SOLN 2.5 ML OU (21:55)
[2018-02-17] MEDS: CALCIUM CARBONATE 500 MG CHEW U/D PO ×2 (00:58→22:15)
[2018-02-17] MEDS: CEPACOL LOZENGE PO ×2 (00:58→21:48)
[2018-02-17] MEDS: CLINDAMYCIN 150 MG CAP PO ×3 (06:19→21:46)
[2018-02-17] MEDS: CYANOCOBALAMIN 500 MCG TAB PO (06:19)
[2018-02-17] MEDS: NEPHRO-VIT TAB (NEPHROCAPS) PO (06:20)
[2018-02-17] MEDS: METOPROLOL TART 25 MG TABLET PO ×2 (06:20→21:47)
[2018-02-17] MEDS: LACTOBACILLUS ACIDOPHILUS CAP (BACID) PO ×2 (06:21→16:59)
[2018-02-17] MEDS: SENOKOT S TAB PO ×2 (06:21→21:46)
[2018-02-17] MEDS: MIDODRINE 5 MG TAB PO ×3 (06:21→14:54)
[2018-02-17] MEDS: ASPIRIN 81 MG ENTERIC TAB PO (06:21)
[2018-02-17] MEDS: VITAMIN D 1,000 INTERNATIONAL UNITS TABLET PO (06:22)
[2018-02-17 07:43] LABS: BEDSIDE GLUCOSE 103 MG/DL (83-110)
[2018-02-17] MEDS: (RENVELA) SEVELAMER **CARBONate** 800 MG TAB PO (07:47)
[2018-02-17] MEDS: HumaLOG INSULIN (NovoLOG) PER UNIT SC ×4 (07:48→21:00)
[2018-02-17 08:59] LABS: MEAN CORPUSCULAR HEMOGLOBIN 29.3 pg (27.0-33.0); MEAN CORPUSCULAR HGB CONC 30.3 g/dl (32.0-36.5); MEAN CORPUSCULAR VOLUME 96.8 fl (80.0-96.0); PLATELET COUNT, AUTOMATED 151 10^3/uL (150-450); RED BLOOD COUNT 3.41 10^6/uL (4.30-6.10); RED CELL DISTRIBUTION WIDTH 20.8 % (11.5-14.5); WHITE BLOOD COUNT 8.2 10^3/uL (4.0-10.0)
[2018-02-17 09:38] LABS: ALBUMIN 2.9 GM/DL (3.2-5.2); ANION GAP 11 MEQ/L (8-16); BLOOD UREA NITROGEN 46 MG/DL (7-18); CALCIUM LEVEL 8.7 MG/DL (8.8-10.2); CARBON DIOXIDE LEVEL 27 MEQ/L (21-32); CHLORIDE LEVEL 101 MEQ/L (98-107); GLUCOSE, FASTING 121 MG/DL (70-100); POTASSIUM SERUM 4.9 MEQ/L (3.5-5.1); SODIUM LEVEL 139 MEQ/L (136-145)
[2018-02-17] MEDS: HEPARIN 1,000 UNITS/ML 10ML VIAL (FOR RADIOLOGY& DIALYSIS ONLY) IV (11:30)
[2018-02-17 13:25] LABS: BEDSIDE GLUCOSE 59 MG/DL (83-110)
[2018-02-17 13:54] LABS: BEDSIDE GLUCOSE 109 MG/DL (83-110)
[2018-02-17] MEDS: ACETAMINOPHEN TAB 650MG DOSE (2X325MG) PO (15:09)
[2018-02-17 16:46] LABS: BEDSIDE GLUCOSE 115 MG/DL (83-110)
[2018-02-17] MEDS: WARFARIN SOD 3 MG TAB PO (16:59)
[2018-02-17 20:11] LABS: BEDSIDE GLUCOSE 176 MG/DL (83-110)
[2018-02-17] MEDS: ATORVASTATIN 20 MG TAB PO (21:46)
[2018-02-17] MEDS: LEVEMIR (INSULIN DETEMIR) 1 UNITS/0.01ML SC (21:47)
[2018-02-17] MEDS: LATANOPROST 0.005% OPHTH SOLN 2.5 ML OU (21:47)
[2018-02-18] MEDS: CLINDAMYCIN 150 MG CAP PO ×3 (05:41→21:04)
[2018-02-18 06:13] LABS: BEDSIDE GLUCOSE 95 MG/DL (83-110)
[2018-02-18] MEDS: HumaLOG INSULIN (NovoLOG) PER UNIT SC ×4 (07:30→21:00)
[2018-02-18] MEDS: MIDODRINE 5 MG TAB PO ×4 (08:00→15:52)
[2018-02-18] MEDS: (RENVELA) SEVELAMER **CARBONate** 800 MG TAB PO (08:50)
[2018-02-18] MEDS: LACTOBACILLUS ACIDOPHILUS CAP (BACID) PO ×2 (08:51→17:48)
[2018-02-18] MEDS: CYANOCOBALAMIN 500 MCG TAB PO (08:51)
[2018-02-18] MEDS: GABAPENTIN 100 MG CAP PO (08:52)
[2018-02-18] MEDS: ASPIRIN 81 MG ENTERIC TAB PO (08:52)
[2018-02-18] MEDS: VITAMIN D 1,000 INTERNATIONAL UNITS TABLET PO (08:52)
[2018-02-18] MEDS: METOPROLOL TART 25 MG TABLET PO ×2 (08:53→21:04)
[2018-02-18] MEDS: SENOKOT S TAB PO ×2 (08:53→21:04)
[2018-02-18] MEDS: NEPHRO-VIT TAB (NEPHROCAPS) PO (08:54)
[2018-02-18 09:22] LABS: HEMATOCRIT 34.2 % (42.0-52.0); HEMOGLOBIN 10.5 g/dl (13.5-17.5); MEAN CORPUSCULAR HGB CONC 30.7 g/dl (32.0-36.5); MEAN CORPUSCULAR VOLUME 97.7 fl (80.0-96.0); PLATELET COUNT, AUTOMATED 153 10^3/uL (150-450); RED CELL DISTRIBUTION WIDTH 21.3 % (11.5-14.5); WHITE BLOOD COUNT 7.8 10^3/uL (4.0-10.0)
[2018-02-18 09:32] LABS: INR 2.66; PROTHROMBIN TIME 28.9 SECONDS (12.1-14.4)
[2018-02-18 09:53] LABS: ANION GAP 10 MEQ/L (8-16); BLOOD UREA NITROGEN 31 MG/DL (7-18); CALCIUM LEVEL 8.9 MG/DL (8.8-10.2); CARBON DIOXIDE LEVEL 29 MEQ/L (21-32); CHLORIDE LEVEL 101 MEQ/L (98-107); CREATININE FOR GFR 5.93 MG/DL (0.70-1.30); GLOMERULAR FILTRATION RATE 12.2 (>42); GLUCOSE, FASTING 148 MG/DL (70-100); POTASSIUM SERUM 4.3 MEQ/L (3.5-5.1); SODIUM LEVEL 140 MEQ/L (136-145)
[2018-02-18 11:41] LABS: BEDSIDE GLUCOSE 137 MG/DL (83-110)
[2018-02-18] MEDS: CALCIUM CARBONATE 500 MG CHEW U/D PO ×2 (13:46→21:55)
[2018-02-18] MEDS: CEPACOL LOZENGE PO ×2 (13:47→21:55)
[2018-02-18 16:48] LABS: BEDSIDE GLUCOSE 97 MG/DL (83-110)
[2018-02-18] MEDS: WARFARIN SOD 3 MG TAB PO (17:48)
[2018-02-18 19:55] LABS: BEDSIDE GLUCOSE 157 MG/DL (83-110)
[2018-02-18] MEDS: LEVEMIR (INSULIN DETEMIR) 1 UNITS/0.01ML SC (21:03)
[2018-02-18] MEDS: ATORVASTATIN 20 MG TAB PO (21:03)
[2018-02-18] MEDS: LATANOPROST 0.005% OPHTH SOLN 2.5 ML OU (21:05)
[2018-02-19 06:23] LABS: BEDSIDE GLUCOSE 92 MG/DL (83-110)
[2018-02-19] MEDS: MIDODRINE 5 MG TAB PO ×3 (06:53→16:16)
[2018-02-19] MEDS: NEPHRO-VIT TAB (NEPHROCAPS) PO (06:53)
[2018-02-19] MEDS: METOPROLOL TART 25 MG TABLET PO ×2 (06:54→21:01)
[2018-02-19] MEDS: LACTOBACILLUS ACIDOPHILUS CAP (BACID) PO ×2 (06:54→17:21)
[2018-02-19] MEDS: ASPIRIN 81 MG ENTERIC TAB PO (06:54)
[2018-02-19] MEDS: CYANOCOBALAMIN 500 MCG TAB PO (06:54)
[2018-02-19] MEDS: CLINDAMYCIN 150 MG CAP PO ×3 (06:55→21:00)
[2018-02-19] MEDS: (RENVELA) SEVELAMER **CARBONate** 800 MG TAB PO (06:55)
[2018-02-19] MEDS: HumaLOG INSULIN (NovoLOG) PER UNIT SC ×4 (06:55→21:00)
[2018-02-19] MEDS: VITAMIN D 1,000 INTERNATIONAL UNITS TABLET PO (06:55)
[2018-02-19] MEDS: SENOKOT S TAB PO ×2 (06:55→21:01)
[2018-02-19] MEDS: HEPARIN 1,000 UNITS/ML 10ML VIAL (FOR RADIOLOGY& DIALYSIS ONLY) IV (11:30)
[2018-02-19 13:38] LABS: BEDSIDE GLUCOSE 71 MG/DL (83-110)
[2018-02-19] MEDS: WARFARIN SOD 3 MG TAB PO (16:16)
[2018-02-19 17:03] LABS: BEDSIDE GLUCOSE 125 MG/DL (83-110)
[2018-02-19 20:50] LABS: BEDSIDE GLUCOSE 122 MG/DL (83-110)
[2018-02-19] MEDS: CEPACOL LOZENGE PO (21:00)
[2018-02-19] MEDS: LEVEMIR (INSULIN DETEMIR) 1 UNITS/0.01ML SC (21:01)
[2018-02-19] MEDS: LATANOPROST 0.005% OPHTH SOLN 2.5 ML OU (21:01)
[2018-02-19] MEDS: ATORVASTATIN 20 MG TAB PO (21:01)
[2018-02-20] MEDS: CLINDAMYCIN 150 MG CAP PO ×3 (05:39→21:19)
[2018-02-20] MEDS: CALCIUM CARBONATE 500 MG CHEW U/D PO (06:04)
[2018-02-20 07:00] LABS: BEDSIDE GLUCOSE 122 MG/DL (83-110)
[2018-02-20] MEDS: MIDODRINE 5 MG TAB PO ×3 (08:00→15:27)
[2018-02-20] MEDS: METOPROLOL TART 25 MG TABLET PO ×2 (08:16→21:19)
[2018-02-20] MEDS: SENOKOT S TAB PO ×2 (08:16→21:19)
[2018-02-20] MEDS: LACTOBACILLUS ACIDOPHILUS CAP (BACID) PO ×2 (08:16→17:28)
[2018-02-20] MEDS: CYANOCOBALAMIN 500 MCG TAB PO (08:16)
[2018-02-20] MEDS: (RENVELA) SEVELAMER **CARBONate** 800 MG TAB PO (08:16)
[2018-02-20] MEDS: ASPIRIN 81 MG ENTERIC TAB PO (08:17)
[2018-02-20] MEDS: VITAMIN D 1,000 INTERNATIONAL UNITS TABLET PO (08:17)
[2018-02-20] MEDS: GABAPENTIN 100 MG CAP PO (08:17)
[2018-02-20] MEDS: HumaLOG INSULIN (NovoLOG) PER UNIT SC ×4 (08:17→21:00)
[2018-02-20 12:06] LABS: BEDSIDE GLUCOSE 96 MG/DL (83-110)
[2018-02-20] MEDS: NEPHRO-VIT TAB (NEPHROCAPS) PO (13:15)
[2018-02-20 16:40] LABS: BEDSIDE GLUCOSE 118 MG/DL (83-110)
[2018-02-20] MEDS: WARFARIN SOD 3 MG TAB PO (17:28)
[2018-02-20 21:00] LABS: BEDSIDE GLUCOSE 140 MG/DL (83-110)
[2018-02-20] MEDS: LEVEMIR (INSULIN DETEMIR) 1 UNITS/0.01ML SC (21:18)
[2018-02-20] MEDS: ATORVASTATIN 20 MG TAB PO (21:19)
[2018-02-20] MEDS: LATANOPROST 0.005% OPHTH SOLN 2.5 ML OU (21:22)
[2018-02-20] MEDS: CEPACOL LOZENGE PO (21:36)
[2018-02-21] MEDS: CLINDAMYCIN 150 MG CAP PO ×3 (05:16→21:21)
[2018-02-21] MEDS: CEPACOL LOZENGE PO (05:16)
[2018-02-21 06:27] LABS: BEDSIDE GLUCOSE 80 MG/DL (83-110)
[2018-02-21] MEDS: HumaLOG INSULIN (NovoLOG) PER UNIT SC ×4 (07:04→21:00)
[2018-02-21] MEDS: MIDODRINE 5 MG TAB PO ×3 (07:44→17:18)
[2018-02-21] MEDS: LACTOBACILLUS ACIDOPHILUS CAP (BACID) PO ×2 (07:44→17:18)
[2018-02-21] MEDS: NEPHRO-VIT TAB (NEPHROCAPS) PO (07:44)
[2018-02-21] MEDS: CYANOCOBALAMIN 500 MCG TAB PO (07:44)
[2018-02-21] MEDS: GABAPENTIN 100 MG CAP PO (07:44)
[2018-02-21] MEDS: (RENVELA) SEVELAMER **CARBONate** 800 MG TAB PO (07:44)
[2018-02-21] MEDS: VITAMIN D 1,000 INTERNATIONAL UNITS TABLET PO (07:44)
[2018-02-21] MEDS: ASPIRIN 81 MG ENTERIC TAB PO (07:44)
[2018-02-21] MEDS: METOPROLOL TART 25 MG TABLET PO ×2 (07:45→21:24)
[2018-02-21] MEDS: SENOKOT S TAB PO ×2 (07:45→21:21)
[2018-02-21 11:30] LABS: BEDSIDE GLUCOSE 123 MG/DL (83-110)
[2018-02-21] MEDS: CALCIUM CARBONATE 500 MG CHEW U/D PO (13:39)
[2018-02-21 16:38] LABS: BEDSIDE GLUCOSE 145 MG/DL (83-110)
[2018-02-21] MEDS: WARFARIN SOD 3 MG TAB PO (17:18)
[2018-02-21 20:09] LABS: BEDSIDE GLUCOSE 162 MG/DL (83-110)
[2018-02-21] MEDS: LATANOPROST 0.005% OPHTH SOLN 2.5 ML OU (21:21)
[2018-02-21] MEDS: ATORVASTATIN 20 MG TAB PO (21:21)
[2018-02-21] MEDS: LEVEMIR (INSULIN DETEMIR) 1 UNITS/0.01ML SC (21:21)
[2018-02-22] MEDS: CLINDAMYCIN 150 MG CAP PO ×3 (05:29→22:12)
[2018-02-22 07:10] LABS: BEDSIDE GLUCOSE 81 MG/DL (83-110)
[2018-02-22] MEDS: HumaLOG INSULIN (NovoLOG) PER UNIT SC ×4 (07:12→22:12)
[2018-02-22] MEDS: ASPIRIN 81 MG ENTERIC TAB PO (07:16)
[2018-02-22] MEDS: CYANOCOBALAMIN 500 MCG TAB PO (07:16)
[2018-02-22] MEDS: SENOKOT S TAB PO ×2 (07:16→22:11)
[2018-02-22] MEDS: LACTOBACILLUS ACIDOPHILUS CAP (BACID) PO ×2 (07:17→17:07)
[2018-02-22] MEDS: MIDODRINE 5 MG TAB PO ×3 (07:17→17:07)
[2018-02-22] MEDS: (RENVELA) SEVELAMER **CARBONate** 800 MG TAB PO (07:17)
[2018-02-22] MEDS: VITAMIN D 1,000 INTERNATIONAL UNITS TABLET PO (07:17)
[2018-02-22] MEDS: METOPROLOL TART 25 MG TABLET PO ×2 (07:17→22:12)
[2018-02-22] MEDS: NEPHRO-VIT TAB (NEPHROCAPS) PO (07:19)
[2018-02-22] MEDS: HEPARIN 1,000 UNITS/ML 10ML VIAL (FOR RADIOLOGY& DIALYSIS ONLY) IV (11:00)
[2018-02-22 12:59] LABS: BEDSIDE GLUCOSE 114 MG/DL (83-110)
[2018-02-22] MEDS: ACETAMINOPHEN TAB 650MG DOSE (2X325MG) PO (13:16)
[2018-02-22 14:25] LABS: HEMOGLOBIN 10.7 g/dl (13.5-17.5); MEAN CORPUSCULAR HEMOGLOBIN 29.8 pg (27.0-33.0); MEAN CORPUSCULAR HGB CONC 31.5 g/dl (32.0-36.5); MEAN CORPUSCULAR VOLUME 94.7 fl (80.0-96.0); PLATELET COUNT, AUTOMATED 134 10^3/uL (150-450); RED BLOOD COUNT 3.59 10^6/uL (4.30-6.10); RED CELL DISTRIBUTION WIDTH 20.9 % (11.5-14.5); WHITE BLOOD COUNT 6.7 10^3/uL (4.0-10.0)
[2018-02-22 14:55] LABS: C REACTIVE PROTEIN QUANTITATIV 2.81 MG/DL (0.00-0.30)
[2018-02-22 16:40] LABS: BEDSIDE GLUCOSE 141 MG/DL (83-110)
[2018-02-22] MEDS: WARFARIN SOD 3 MG TAB PO (17:07)
[2018-02-22 19:43] LABS: BEDSIDE GLUCOSE 251 MG/DL (83-110)
[2018-02-22] MEDS: ATORVASTATIN 20 MG TAB PO (22:12)
[2018-02-22] MEDS: LEVEMIR (INSULIN DETEMIR) 1 UNITS/0.01ML SC (22:13)
[2018-02-22] MEDS: LATANOPROST 0.005% OPHTH SOLN 2.5 ML OU (22:13)
[2018-02-22] MEDS: CALCIUM CARBONATE 500 MG CHEW U/D PO (22:39)
[2018-02-23] MEDS: CLINDAMYCIN 150 MG CAP PO ×3 (05:03→21:46)
[2018-02-23 05:55] LABS: BEDSIDE GLUCOSE 88 MG/DL (83-110)
[2018-02-23] MEDS: HumaLOG INSULIN (NovoLOG) PER UNIT SC ×4 (07:24→20:28)
[2018-02-23] MEDS: CYANOCOBALAMIN 500 MCG TAB PO (08:43)
[2018-02-23] MEDS: LACTOBACILLUS ACIDOPHILUS CAP (BACID) PO ×2 (08:43→17:22)
[2018-02-23] MEDS: ASPIRIN 81 MG ENTERIC TAB PO (08:43)
[2018-02-23] MEDS: (RENVELA) SEVELAMER **CARBONate** 800 MG TAB PO (08:43)
[2018-02-23] MEDS: MIDODRINE 5 MG TAB PO ×3 (08:43→14:49)
[2018-02-23] MEDS: METOPROLOL TART 25 MG TABLET PO ×2 (08:44→21:46)
[2018-02-23] MEDS: SENOKOT S TAB PO ×2 (08:45→21:46)
[2018-02-23] MEDS: VITAMIN D 1,000 INTERNATIONAL UNITS TABLET PO (08:45)
[2018-02-23] MEDS: NEPHRO-VIT TAB (NEPHROCAPS) PO (08:45)
[2018-02-23] MEDS: GABAPENTIN 100 MG CAP PO (08:45)
[2018-02-23] MEDS: ACETAMINOPHEN TAB 650MG DOSE (2X325MG) PO (10:03)
[2018-02-23 12:05] LABS: BEDSIDE GLUCOSE 153 MG/DL (83-110)
[2018-02-23] MEDS: CALCIUM CARBONATE 500 MG CHEW U/D PO ×2 (14:49→21:49)
[2018-02-23 17:07] LABS: BEDSIDE GLUCOSE 156 MG/DL (83-110)
[2018-02-23] MEDS: WARFARIN SOD 3 MG TAB PO (17:22)
[2018-02-23 20:21] LABS: BEDSIDE GLUCOSE 119 MG/DL (83-110)
[2018-02-23] MEDS: LEVEMIR (INSULIN DETEMIR) 1 UNITS/0.01ML SC ×2 (20:49→21:47)
[2018-02-23] MEDS: ATORVASTATIN 20 MG TAB PO (21:46)
[2018-02-23] MEDS: LATANOPROST 0.005% OPHTH SOLN 2.5 ML OU (21:47)
[2018-02-24 06:16] LABS: HEMATOCRIT 32.7 % (42.0-52.0); MEAN CORPUSCULAR HEMOGLOBIN 29.9 pg (27.0-33.0); MEAN CORPUSCULAR HGB CONC 30.6 g/dl (32.0-36.5); MEAN CORPUSCULAR VOLUME 97.6 fl (80.0-96.0); PLATELET COUNT, AUTOMATED 142 10^3/uL (150-450); RED BLOOD COUNT 3.35 10^6/uL (4.30-6.10); RED CELL DISTRIBUTION WIDTH 20.6 % (11.5-14.5); WHITE BLOOD COUNT 6.6 10^3/uL (4.0-10.0)
[2018-02-24] MEDS: CYANOCOBALAMIN 500 MCG TAB PO (06:25)
[2018-02-24] MEDS: SENOKOT S TAB PO ×2 (06:25→21:13)
[2018-02-24] MEDS: CLINDAMYCIN 150 MG CAP PO ×3 (06:25→21:13)
[2018-02-24] MEDS: METOPROLOL TART 25 MG TABLET PO ×2 (06:25→21:15)
[2018-02-24] MEDS: VITAMIN D 1,000 INTERNATIONAL UNITS TABLET PO (06:25)
[2018-02-24] MEDS: ASPIRIN 81 MG ENTERIC TAB PO (06:25)
[2018-02-24] MEDS: NEPHRO-VIT TAB (NEPHROCAPS) PO (06:25)
[2018-02-24] MEDS: MIDODRINE 5 MG TAB PO ×3 (06:31→17:12)
[2018-02-24 06:33] LABS: ALBUMIN 2.7 GM/DL (3.2-5.2); ANION GAP 9 MEQ/L (8-16); BLOOD UREA NITROGEN 41 MG/DL (7-18); CALCIUM LEVEL 8.5 MG/DL (8.8-10.2); CARBON DIOXIDE LEVEL 26 MEQ/L (21-32); CHLORIDE LEVEL 103 MEQ/L (98-107); CREATININE FOR GFR 7.61 MG/DL (0.70-1.30); GLOMERULAR FILTRATION RATE 9.2 (>42); GLUCOSE, FASTING 132 MG/DL (70-100); MAGNESIUM LEVEL 2.2 MG/DL (1.8-2.4); POTASSIUM SERUM 4.4 MEQ/L (3.5-5.1); SODIUM LEVEL 138 MEQ/L (136-145)
[2018-02-24] MEDS: LACTOBACILLUS ACIDOPHILUS CAP (BACID) PO ×2 (07:20→17:12)
[2018-02-24] MEDS: (RENVELA) SEVELAMER **CARBONate** 800 MG TAB PO (07:20)
[2018-02-24] MEDS: HumaLOG INSULIN (NovoLOG) PER UNIT SC ×4 (07:20→20:36)
[2018-02-24 11:01] LABS: INR 3.69; PROTHROMBIN TIME 37.5 SECONDS (12.1-14.4)
[2018-02-24] MEDS: HEPARIN 1,000 UNITS/ML 10ML VIAL (FOR RADIOLOGY& DIALYSIS ONLY) IV (11:15)
[2018-02-24 14:28] LABS: BEDSIDE GLUCOSE 92 MG/DL (83-110)
[2018-02-24] MEDS: ATORVASTATIN 20 MG TAB PO (21:13)
[2018-02-24] MEDS: LEVEMIR (INSULIN DETEMIR) 1 UNITS/0.01ML SC (21:13)
[2018-02-24] MEDS: LATANOPROST 0.005% OPHTH SOLN 2.5 ML OU (21:13)
[2018-02-25] MEDS: CALCIUM CARBONATE 500 MG CHEW U/D PO ×2 (00:17→06:10)
[2018-02-25] MEDS: CLINDAMYCIN 150 MG CAP PO ×3 (05:42→21:13)
[2018-02-25 07:00] LABS: INR 2.75; PROTHROMBIN TIME 29.7 SECONDS (12.1-14.4)
[2018-02-25] MEDS: HumaLOG INSULIN (NovoLOG) PER UNIT SC ×4 (08:19→20:58)
[2018-02-25] MEDS: VITAMIN D 1,000 INTERNATIONAL UNITS TABLET PO (08:20)
[2018-02-25] MEDS: (RENVELA) SEVELAMER **CARBONate** 800 MG TAB PO (08:20)
[2018-02-25] MEDS: ASPIRIN 81 MG ENTERIC TAB PO (08:20)
[2018-02-25] MEDS: MIDODRINE 5 MG TAB PO ×3 (08:20→17:10)
[2018-02-25] MEDS: GABAPENTIN 100 MG CAP PO (08:20)
[2018-02-25] MEDS: LACTOBACILLUS ACIDOPHILUS CAP (BACID) PO ×2 (08:20→17:10)
[2018-02-25] MEDS: SENOKOT S TAB PO ×2 (08:20→21:13)
[2018-02-25] MEDS: METOPROLOL TART 25 MG TABLET PO ×2 (08:21→21:13)
[2018-02-25] MEDS: CYANOCOBALAMIN 500 MCG TAB PO (08:21)
[2018-02-25] MEDS: NEPHRO-VIT TAB (NEPHROCAPS) PO (08:23)
[2018-02-25] MEDS: WARFARIN SOD 5 MG TAB PO (17:10)
[2018-02-25] MEDS: LATANOPROST 0.005% OPHTH SOLN 2.5 ML OU (21:12)
[2018-02-25] MEDS: ATORVASTATIN 20 MG TAB PO (21:13)
[2018-02-25] MEDS: LEVEMIR (INSULIN DETEMIR) 1 UNITS/0.01ML SC (21:13)
[2018-02-26] MEDS: MIDODRINE 5 MG TAB PO ×3 (05:56→17:35)
[2018-02-26 06:01] LABS: HEMATOCRIT 32.8 % (42.0-52.0); HEMOGLOBIN 10.1 g/dl (13.5-17.5); MEAN CORPUSCULAR HEMOGLOBIN 30.2 pg (27.0-33.0); MEAN CORPUSCULAR HGB CONC 30.8 g/dl (32.0-36.5); MEAN CORPUSCULAR VOLUME 98.2 fl (80.0-96.0); PLATELET COUNT, AUTOMATED 143 10^3/uL (150-450); RED BLOOD COUNT 3.34 10^6/uL (4.30-6.10); RED CELL DISTRIBUTION WIDTH 20.9 % (11.5-14.5); WHITE BLOOD COUNT 7.6 10^3/uL (4.0-10.0)
[2018-02-26 06:13] LABS: INR 2.24; PROTHROMBIN TIME 25.2 SECONDS (12.1-14.4)
[2018-02-26] MEDS: NEPHRO-VIT TAB (NEPHROCAPS) PO (06:13)
[2018-02-26] MEDS: SENOKOT S TAB PO ×2 (06:13→21:13)
[2018-02-26] MEDS: CLINDAMYCIN 150 MG CAP PO ×3 (06:14→21:14)
[2018-02-26] MEDS: ASPIRIN 81 MG ENTERIC TAB PO (06:14)
[2018-02-26] MEDS: CYANOCOBALAMIN 500 MCG TAB PO (06:14)
[2018-02-26] MEDS: VITAMIN D 1,000 INTERNATIONAL UNITS TABLET PO (06:14)
[2018-02-26] MEDS: METOPROLOL TART 25 MG TABLET PO ×2 (06:14→21:13)
[2018-02-26 06:23] LABS: ANION GAP 10 MEQ/L (8-16); BLOOD UREA NITROGEN 40 MG/DL (7-18); C REACTIVE PROTEIN QUANTITATIV 3.23 MG/DL (0.00-0.30); CALCIUM LEVEL 8.9 MG/DL (8.8-10.2); CARBON DIOXIDE LEVEL 28 MEQ/L (21-32); CHLORIDE LEVEL 103 MEQ/L (98-107); CREATININE FOR GFR 7.41 MG/DL (0.70-1.30); GLOMERULAR FILTRATION RATE 9.4 (>42); GLUCOSE, FASTING 92 MG/DL (70-100); MAGNESIUM LEVEL 2.1 MG/DL (1.8-2.4); POTASSIUM SERUM 4.5 MEQ/L (3.5-5.1); SODIUM LEVEL 141 MEQ/L (136-145)
[2018-02-26] MEDS: HumaLOG INSULIN (NovoLOG) PER UNIT SC ×4 (07:30→21:13)
[2018-02-26] MEDS: LACTOBACILLUS ACIDOPHILUS CAP (BACID) PO ×2 (07:48→17:35)
[2018-02-26] MEDS: (RENVELA) SEVELAMER **CARBONate** 800 MG TAB PO (07:48)
[2018-02-26] MEDS: HEPARIN 1,000 UNITS/ML 10ML VIAL (FOR RADIOLOGY& DIALYSIS ONLY) IV (10:45)
[2018-02-26 14:25] LABS: BEDSIDE GLUCOSE 208 MG/DL (83-110)
[2018-02-26 14:26] LABS: BEDSIDE GLUCOSE 101 MG/DL (83-110)
[2018-02-26 14:26] LABS: BEDSIDE GLUCOSE 118 MG/DL (83-110)
[2018-02-26 14:26] LABS: BEDSIDE GLUCOSE 154 MG/DL (83-110)
[2018-02-26 14:26] LABS: BEDSIDE GLUCOSE 144 MG/DL (83-110)
[2018-02-26 14:26] LABS: BEDSIDE GLUCOSE 198 MG/DL (83-110)
[2018-02-26 16:43] LABS: BEDSIDE GLUCOSE 159 MG/DL (83-110)
[2018-02-26] MEDS: WARFARIN SOD 5 MG TAB PO (17:35)
[2018-02-26 19:57] LABS: BEDSIDE GLUCOSE 162 MG/DL (83-110)
[2018-02-26] MEDS: ATORVASTATIN 20 MG TAB PO (21:12)
[2018-02-26] MEDS: LATANOPROST 0.005% OPHTH SOLN 2.5 ML OU (21:14)
[2018-02-26] MEDS: LEVEMIR (INSULIN DETEMIR) 1 UNITS/0.01ML SC (21:14)
[2018-02-27] MEDS: CLINDAMYCIN 150 MG CAP PO ×3 (06:07→21:05)
[2018-02-27] MEDS: CALCIUM CARBONATE 500 MG CHEW U/D PO (06:56)
[2018-02-27] MEDS: ACETAMINOPHEN TAB 650MG DOSE (2X325MG) PO (08:32)
[2018-02-27] MEDS: MIDODRINE 5 MG TAB PO ×3 (08:32→15:28)
[2018-02-27] MEDS: HumaLOG INSULIN (NovoLOG) PER UNIT SC ×4 (08:33→21:03)
[2018-02-27] MEDS: ASPIRIN 81 MG ENTERIC TAB PO (08:33)
[2018-02-27] MEDS: NEPHRO-VIT TAB (NEPHROCAPS) PO (08:33)
[2018-02-27] MEDS: LACTOBACILLUS ACIDOPHILUS CAP (BACID) PO ×2 (08:33→17:55)
[2018-02-27] MEDS: CYANOCOBALAMIN 500 MCG TAB PO (08:33)
[2018-02-27] MEDS: VITAMIN D 1,000 INTERNATIONAL UNITS TABLET PO (08:33)
[2018-02-27] MEDS: GABAPENTIN 100 MG CAP PO (08:33)
[2018-02-27] MEDS: (RENVELA) SEVELAMER **CARBONate** 800 MG TAB PO (08:33)
[2018-02-27] MEDS: SENOKOT S TAB PO ×2 (08:33→21:03)
[2018-02-27] MEDS: METOPROLOL TART 25 MG TABLET PO ×2 (08:34→21:03)
[2018-02-27 11:40] LABS: BEDSIDE GLUCOSE 130 MG/DL (83-110)
[2018-02-27 17:00] LABS: BEDSIDE GLUCOSE 185 MG/DL (83-110)
[2018-02-27] MEDS: WARFARIN SOD 5 MG TAB PO (17:55)
[2018-02-27] MEDS: ATORVASTATIN 20 MG TAB PO (21:03)
[2018-02-27] MEDS: LEVEMIR (INSULIN DETEMIR) 1 UNITS/0.01ML SC (21:04)
[2018-02-27] MEDS: LATANOPROST 0.005% OPHTH SOLN 2.5 ML OU (21:04)
[2018-02-28] MEDS: CLINDAMYCIN 150 MG CAP PO ×3 (05:09→21:31)
[2018-02-28] MEDS: CALCIUM CARBONATE 500 MG CHEW U/D PO (06:08)
[2018-02-28 06:29] LABS: BEDSIDE GLUCOSE 131 MG/DL (83-110)
[2018-02-28 06:33] LABS: HEMATOCRIT 33.5 % (42.0-52.0); HEMOGLOBIN 10.4 g/dl (13.5-17.5); MEAN CORPUSCULAR VOLUME 96.5 fl (80.0-96.0); PLATELET COUNT, AUTOMATED 164 10^3/uL (150-450); RED BLOOD COUNT 3.47 10^6/uL (4.30-6.10); RED CELL DISTRIBUTION WIDTH 20.6 % (11.5-14.5)
[2018-02-28 07:09] LABS: ALBUMIN 2.8 GM/DL (3.2-5.2); ANION GAP 9 MEQ/L (8-16); BLOOD UREA NITROGEN 43 MG/DL (7-18); C REACTIVE PROTEIN QUANTITATIV 3.81 MG/DL (0.00-0.30); CALCIUM LEVEL 8.4 MG/DL (8.8-10.2); CARBON DIOXIDE LEVEL 28 MEQ/L (21-32); CHLORIDE LEVEL 102 MEQ/L (98-107); CREATININE FOR GFR 7.58 MG/DL (0.70-1.30); GLOMERULAR FILTRATION RATE 9.2 (>42); GLUCOSE, FASTING 108 MG/DL (70-100); PHOSPHORUS LEVEL 5.9 MG/DL (2.5-4.9); POTASSIUM SERUM 4.4 MEQ/L (3.5-5.1); SODIUM LEVEL 139 MEQ/L (136-145)
[2018-02-28 07:17] LABS: INR 2.17; PROTHROMBIN TIME 24.6 SECONDS (12.1-14.4)
[2018-02-28] MEDS: MIDODRINE 5 MG TAB PO ×3 (08:00→16:00)
[2018-02-28] MEDS: HumaLOG INSULIN (NovoLOG) PER UNIT SC ×4 (08:40→21:30)
[2018-02-28] MEDS: GABAPENTIN 100 MG CAP PO (08:40)
[2018-02-28] MEDS: (RENVELA) SEVELAMER **CARBONate** 800 MG TAB PO (08:40)
[2018-02-28] MEDS: LACTOBACILLUS ACIDOPHILUS CAP (BACID) PO ×2 (08:40→19:05)
[2018-02-28] MEDS: NEPHRO-VIT TAB (NEPHROCAPS) PO (08:40)
[2018-02-28] MEDS: CYANOCOBALAMIN 500 MCG TAB PO (08:40)
[2018-02-28] MEDS: METOPROLOL TART 25 MG TABLET PO ×2 (08:41→21:30)
[2018-02-28] MEDS: ASPIRIN 81 MG ENTERIC TAB PO (08:41)
[2018-02-28] MEDS: SENOKOT S TAB PO ×2 (08:41→21:30)
[2018-02-28] MEDS: VITAMIN D 1,000 INTERNATIONAL UNITS TABLET PO (08:41)
[2018-02-28 12:41] LABS: BEDSIDE GLUCOSE 105 MG/DL (83-110)
[2018-02-28 12:42] LABS: BEDSIDE GLUCOSE 217 MG/DL (83-110)
[2018-02-28 12:42] LABS: BEDSIDE GLUCOSE 124 MG/DL (83-110)
[2018-02-28] MEDS ORDERED: WARFARIN SOD 5 MG TAB PO (17:00)
[2018-02-28 17:33] LABS: BEDSIDE GLUCOSE 156 MG/DL (83-110)
[2018-02-28] MEDS: WARFARIN SOD 2.5 MG TAB PO (19:05)
[2018-02-28] MEDS: LevoFLOXacin 250 MG TABLET PO (19:05)
[2018-02-28] MEDS: WARFARIN SOD 3 MG TAB PO (19:05)
[2018-02-28 20:17] LABS: BEDSIDE GLUCOSE 166 MG/DL (83-110)
[2018-02-28] MEDS: ATORVASTATIN 20 MG TAB PO (21:29)
[2018-02-28] MEDS: LEVEMIR (INSULIN DETEMIR) 1 UNITS/0.01ML SC (21:30)
[2018-02-28] MEDS: LATANOPROST 0.005% OPHTH SOLN 2.5 ML OU (21:31)
[2018-03-01 06:03] LABS: HEMATOCRIT 31.8 % (42.0-52.0); HEMOGLOBIN 9.9 g/dl (13.5-17.5); MEAN CORPUSCULAR HEMOGLOBIN 29.8 pg (27.0-33.0); MEAN CORPUSCULAR HGB CONC 31.1 g/dl (32.0-36.5); MEAN CORPUSCULAR VOLUME 95.8 fl (80.0-96.0); PLATELET COUNT, AUTOMATED 168 10^3/uL (150-450); RED BLOOD COUNT 3.32 10^6/uL (4.30-6.10); RED CELL DISTRIBUTION WIDTH 20.2 % (11.5-14.5); WHITE BLOOD COUNT 6.8 10^3/uL (4.0-10.0)
[2018-03-01 06:37] LABS: ANION GAP 11 MEQ/L (8-16); BLOOD UREA NITROGEN 54 MG/DL (7-18); C REACTIVE PROTEIN QUANTITATIV 3.42 MG/DL (0.00-0.30); CALCIUM LEVEL 8.8 MG/DL (8.8-10.2); CARBON DIOXIDE LEVEL 27 MEQ/L (21-32); CHLORIDE LEVEL 103 MEQ/L (98-107); CREATININE FOR GFR 9.08 MG/DL (0.70-1.30); GLOMERULAR FILTRATION RATE 7.5 (>42); GLUCOSE, FASTING 97 MG/DL (70-100); MAGNESIUM LEVEL 2.2 MG/DL (1.8-2.4); POTASSIUM SERUM 4.8 MEQ/L (3.5-5.1); SODIUM LEVEL 141 MEQ/L (136-145)
[2018-03-01] MEDS: MIDODRINE 5 MG TAB PO ×3 (06:40→15:09)
[2018-03-01] MEDS: ASPIRIN 81 MG ENTERIC TAB PO (06:40)
[2018-03-01] MEDS: METOPROLOL TART 25 MG TABLET PO ×2 (06:40→20:44)
[2018-03-01] MEDS: CLINDAMYCIN 150 MG CAP PO ×3 (06:40→20:43)
[2018-03-01] MEDS: SENOKOT S TAB PO ×2 (06:41→20:43)
[2018-03-01] MEDS: CYANOCOBALAMIN 500 MCG TAB PO (06:41)
[2018-03-01] MEDS: NEPHRO-VIT TAB (NEPHROCAPS) PO (06:41)
[2018-03-01] MEDS: VITAMIN D 1,000 INTERNATIONAL UNITS TABLET PO (06:41)
[2018-03-01] MEDS: HumaLOG INSULIN (NovoLOG) PER UNIT SC ×4 (07:27→20:42)
[2018-03-01] MEDS: (RENVELA) SEVELAMER **CARBONate** 800 MG TAB PO (07:44)
[2018-03-01] MEDS: ACETAMINOPHEN TAB 650MG DOSE (2X325MG) PO (07:44)
[2018-03-01] MEDS: LACTOBACILLUS ACIDOPHILUS CAP (BACID) PO ×2 (07:44→17:15)
[2018-03-01] MEDS: LACTIC ACID 12% LOTION 225 GM BTL TOP (09:00)
[2018-03-01] MEDS: SANTYL OINT 30GM TOP (09:00)
[2018-03-01] MEDS: HEPARIN 1,000 UNITS/ML 10ML VIAL (FOR RADIOLOGY& DIALYSIS ONLY) IV (10:00)
[2018-03-01] MEDS: WARFARIN SOD 2.5 MG TAB PO (17:16)
[2018-03-01] MEDS: WARFARIN SOD 3 MG TAB PO (17:16)
[2018-03-01] MEDS: LEVEMIR (INSULIN DETEMIR) 1 UNITS/0.01ML SC (20:41)
[2018-03-01] MEDS: LATANOPROST 0.005% OPHTH SOLN 2.5 ML OU (20:42)
[2018-03-01] MEDS: ATORVASTATIN 20 MG TAB PO (20:43)
[2018-03-02] MEDS: ACETAMINOPHEN TAB 650MG DOSE (2X325MG) PO (02:51)
[2018-03-02] MEDS: CALCIUM CARBONATE 500 MG CHEW U/D PO ×2 (02:51→16:29)
[2018-03-02] MEDS: CLINDAMYCIN 150 MG CAP PO ×3 (05:29→21:15)
[2018-03-02 06:55] LABS: HEMOGLOBIN 10.2 g/dl (13.5-17.5); MEAN CORPUSCULAR HEMOGLOBIN 30.4 pg (27.0-33.0); MEAN CORPUSCULAR HGB CONC 30.9 g/dl (32.0-36.5); MEAN CORPUSCULAR VOLUME 98.5 fl (80.0-96.0); PLATELET COUNT, AUTOMATED 135 10^3/uL (150-450); RED BLOOD COUNT 3.35 10^6/uL (4.30-6.10); RED CELL DISTRIBUTION WIDTH 20.5 % (11.5-14.5); WHITE BLOOD COUNT 6.8 10^3/uL (4.0-10.0)
[2018-03-02 07:10] LABS: INR 2.49; PROTHROMBIN TIME 27.4 SECONDS (12.1-14.4)
[2018-03-02 07:19] LABS: ALBUMIN 2.8 GM/DL (3.2-5.2); ANION GAP 8 MEQ/L (8-16); BLOOD UREA NITROGEN 35 MG/DL (7-18); C REACTIVE PROTEIN QUANTITATIV 3.93 MG/DL (0.00-0.30); CALCIUM LEVEL 8.4 MG/DL (8.8-10.2); CARBON DIOXIDE LEVEL 30 MEQ/L (21-32); CHLORIDE LEVEL 101 MEQ/L (98-107); CREATININE FOR GFR 6.65 MG/DL (0.70-1.30); GLOMERULAR FILTRATION RATE 10.7 (>42); GLUCOSE, FASTING 79 MG/DL (70-100); PHOSPHORUS LEVEL 5.2 MG/DL (2.5-4.9); POTASSIUM SERUM 4.7 MEQ/L (3.5-5.1); SODIUM LEVEL 139 MEQ/L (136-145)
[2018-03-02] MEDS: HumaLOG INSULIN (NovoLOG) PER UNIT SC ×4 (07:36→21:00)
[2018-03-02] MEDS: GABAPENTIN 100 MG CAP PO (08:31)
[2018-03-02] MEDS: MIDODRINE 5 MG TAB PO ×3 (08:31→15:32)
[2018-03-02] MEDS: SANTYL OINT 30GM TOP (08:31)
[2018-03-02] MEDS: LACTIC ACID 12% LOTION 225 GM BTL TOP (08:31)
[2018-03-02] MEDS: CYANOCOBALAMIN 500 MCG TAB PO (08:32)
[2018-03-02] MEDS: (RENVELA) SEVELAMER **CARBONate** 800 MG TAB PO (08:32)
[2018-03-02] MEDS: METOPROLOL TART 25 MG TABLET PO ×2 (08:32→21:16)
[2018-03-02] MEDS: LACTOBACILLUS ACIDOPHILUS CAP (BACID) PO ×2 (08:32→17:27)
[2018-03-02] MEDS: SENOKOT S TAB PO ×2 (08:32→21:15)
[2018-03-02] MEDS: NEPHRO-VIT TAB (NEPHROCAPS) PO (08:32)
[2018-03-02] MEDS: VITAMIN D 1,000 INTERNATIONAL UNITS TABLET PO (08:32)
[2018-03-02] MEDS: ASPIRIN 81 MG ENTERIC TAB PO (08:32)
[2018-03-02 09:18] LABS: BEDSIDE GLUCOSE 99 MG/DL (83-110)
[2018-03-02] MEDS: LevoFLOXacin 250 MG TABLET PO (17:27)
[2018-03-02] MEDS: WARFARIN SOD 3 MG TAB PO (17:27)
[2018-03-02] MEDS: WARFARIN SOD 2.5 MG TAB PO (17:27)
[2018-03-02 19:50] LABS: BEDSIDE GLUCOSE 193 MG/DL (83-110)
[2018-03-02] MEDS: LEVEMIR (INSULIN DETEMIR) 1 UNITS/0.01ML SC (21:15)
[2018-03-02] MEDS: ATORVASTATIN 20 MG TAB PO (21:15)
[2018-03-02] MEDS: LATANOPROST 0.005% OPHTH SOLN 2.5 ML OU (21:15)
[2018-03-03] MEDS: MIDODRINE 5 MG TAB PO ×3 (06:20→16:00)
[2018-03-03] MEDS: METOPROLOL TART 25 MG TABLET PO ×2 (06:20→20:24)
[2018-03-03] MEDS: ASPIRIN 81 MG ENTERIC TAB PO (06:21)
[2018-03-03] MEDS: SENOKOT S TAB PO ×2 (06:21→20:25)
[2018-03-03] MEDS: CYANOCOBALAMIN 500 MCG TAB PO (06:21)
[2018-03-03] MEDS: CLINDAMYCIN 150 MG CAP PO ×3 (06:21→20:25)
[2018-03-03] MEDS: VITAMIN D 1,000 INTERNATIONAL UNITS TABLET PO (06:21)
[2018-03-03] MEDS: NEPHRO-VIT TAB (NEPHROCAPS) PO (06:21)
[2018-03-03] MEDS: LACTIC ACID 12% LOTION 225 GM BTL TOP (07:38)
[2018-03-03] MEDS: (RENVELA) SEVELAMER **CARBONate** 800 MG TAB PO (07:38)
[2018-03-03] MEDS: LACTOBACILLUS ACIDOPHILUS CAP (BACID) PO ×2 (07:38→17:13)
[2018-03-03] MEDS: HumaLOG INSULIN (NovoLOG) PER UNIT SC ×4 (07:38→20:21)
[2018-03-03] MEDS: SANTYL OINT 30GM TOP (07:39)
[2018-03-03 10:12] LABS: INR 2.79
[2018-03-03] MEDS: HEPARIN 1,000 UNITS/ML 10ML VIAL (FOR RADIOLOGY& DIALYSIS ONLY) IV (11:00)
[2018-03-03 13:26] LABS: BEDSIDE GLUCOSE 125 MG/DL (83-110)
[2018-03-03] MEDS: WARFARIN SOD 2.5 MG TAB PO (17:13)
[2018-03-03] MEDS: WARFARIN SOD 3 MG TAB PO (17:13)
[2018-03-03] MEDS: ATORVASTATIN 20 MG TAB PO (20:25)
[2018-03-03] MEDS: ACETAMINOPHEN TAB 650MG DOSE (2X325MG) PO (20:25)
[2018-03-03] MEDS: LEVEMIR (INSULIN DETEMIR) 1 UNITS/0.01ML SC (20:26)
[2018-03-03] MEDS: LATANOPROST 0.005% OPHTH SOLN 2.5 ML OU (20:26)
[2018-03-03 23:13] LABS: BEDSIDE GLUCOSE 152 MG/DL (83-110)
[2018-03-03 23:13] LABS: BEDSIDE GLUCOSE 178 MG/DL (83-110)
[2018-03-03 23:13] LABS: BEDSIDE GLUCOSE 163 MG/DL (83-110)
[2018-03-03 23:14] LABS: BEDSIDE GLUCOSE 153 MG/DL (83-110)
[2018-03-03 23:14] LABS: BEDSIDE GLUCOSE 109 MG/DL (83-110)
[2018-03-03 23:14] LABS: BEDSIDE GLUCOSE 103 MG/DL (83-110)
[2018-03-03 23:14] LABS: BEDSIDE GLUCOSE 144 MG/DL (83-110)
[2018-03-04] MEDS: CLINDAMYCIN 150 MG CAP PO ×3 (05:37→21:09)
[2018-03-04 06:00] LABS: HEMOGLOBIN 10.4 g/dl (13.5-17.5); MEAN CORPUSCULAR HGB CONC 30.6 g/dl (32.0-36.5); PLATELET COUNT, AUTOMATED 144 10^3/uL (150-450); RED BLOOD COUNT 3.47 10^6/uL (4.30-6.10); RED CELL DISTRIBUTION WIDTH 19.9 % (11.5-14.5); WHITE BLOOD COUNT 6.1 10^3/uL (4.0-10.0)
[2018-03-04 06:08] LABS: INR 2.44
[2018-03-04 06:30] LABS: ALBUMIN 2.7 GM/DL (3.2-5.2); ANION GAP 9 MEQ/L (8-16); BLOOD UREA NITROGEN 29 MG/DL (7-18); C REACTIVE PROTEIN QUANTITATIV 2.95 MG/DL (0.00-0.30); CALCIUM LEVEL 8.3 MG/DL (8.8-10.2); CARBON DIOXIDE LEVEL 29 MEQ/L (21-32); CHLORIDE LEVEL 101 MEQ/L (98-107); CREATININE FOR GFR 5.74 MG/DL (0.70-1.30); GLOMERULAR FILTRATION RATE 12.7 (>42); GLUCOSE, FASTING 124 MG/DL (70-100); MAGNESIUM LEVEL 1.9 MG/DL (1.8-2.4); PHOSPHORUS LEVEL 4.8 MG/DL (2.5-4.9); POTASSIUM SERUM 4.1 MEQ/L (3.5-5.1); SODIUM LEVEL 139 MEQ/L (136-145)
[2018-03-04] MEDS: LACTOBACILLUS ACIDOPHILUS CAP (BACID) PO ×2 (07:58→17:21)
[2018-03-04] MEDS: GABAPENTIN 100 MG CAP PO (07:58)
[2018-03-04] MEDS: (RENVELA) SEVELAMER **CARBONate** 800 MG TAB PO (07:58)
[2018-03-04] MEDS: NEPHRO-VIT TAB (NEPHROCAPS) PO (07:59)
[2018-03-04] MEDS: HumaLOG INSULIN (NovoLOG) PER UNIT SC ×4 (07:59→21:00)
[2018-03-04] MEDS: ASPIRIN 81 MG ENTERIC TAB PO (07:59)
[2018-03-04] MEDS: MIDODRINE 5 MG TAB PO ×3 (07:59→17:22)
[2018-03-04] MEDS: VITAMIN D 1,000 INTERNATIONAL UNITS TABLET PO (07:59)
[2018-03-04] MEDS: CYANOCOBALAMIN 500 MCG TAB PO (07:59)
[2018-03-04] MEDS: SENOKOT S TAB PO ×2 (07:59→21:09)
[2018-03-04] MEDS: SANTYL OINT 30GM TOP (08:00)
[2018-03-04] MEDS: LACTIC ACID 12% LOTION 225 GM BTL TOP (08:00)
[2018-03-04] MEDS: METOPROLOL TART 25 MG TABLET PO ×2 (08:00→21:09)
[2018-03-04] MEDS: WARFARIN SOD 3 MG TAB PO (17:21)
[2018-03-04] MEDS: WARFARIN SOD 2.5 MG TAB PO (17:21)
[2018-03-04] MEDS: LevoFLOXacin 250 MG TABLET PO (17:22)
[2018-03-04] MEDS: ATORVASTATIN 20 MG TAB PO (21:09)
[2018-03-04] MEDS: LATANOPROST 0.005% OPHTH SOLN 2.5 ML OU (21:10)
[2018-03-04] MEDS: LEVEMIR (INSULIN DETEMIR) 1 UNITS/0.01ML SC (21:10)
[2018-03-05 04:24] LABS: BEDSIDE GLUCOSE 127 MG/DL (83-110)
[2018-03-05 04:25] LABS: BEDSIDE GLUCOSE 130 MG/DL (83-110)
[2018-03-05 04:25] LABS: BEDSIDE GLUCOSE 162 MG/DL (83-110)
[2018-03-05] MEDS: MIDODRINE 5 MG TAB PO ×3 (05:52→16:00)
[2018-03-05] MEDS: CYANOCOBALAMIN 500 MCG TAB PO (06:18)
[2018-03-05] MEDS: SENOKOT S TAB PO ×2 (06:19→21:31)
[2018-03-05] MEDS: LACTOBACILLUS ACIDOPHILUS CAP (BACID) PO ×2 (06:19→17:01)
[2018-03-05] MEDS: ASPIRIN 81 MG ENTERIC TAB PO (06:19)
[2018-03-05] MEDS: VITAMIN D 1,000 INTERNATIONAL UNITS TABLET PO (06:19)
[2018-03-05] MEDS: CLINDAMYCIN 150 MG CAP PO ×3 (06:19→21:31)
[2018-03-05] MEDS: LACTIC ACID 12% LOTION 225 GM BTL TOP (06:20)
[2018-03-05] MEDS: METOPROLOL TART 25 MG TABLET PO ×2 (06:20→21:31)
[2018-03-05] MEDS: HumaLOG INSULIN (NovoLOG) PER UNIT SC ×4 (07:30→21:00)
[2018-03-05] MEDS: (RENVELA) SEVELAMER **CARBONate** 800 MG TAB PO (07:52)
[2018-03-05] MEDS: NEPHRO-VIT TAB (NEPHROCAPS) PO (07:52)
[2018-03-05] MEDS: HEPARIN 1,000 UNITS/ML 10ML VIAL (FOR RADIOLOGY& DIALYSIS ONLY) IV (11:15)
[2018-03-05 13:57] LABS: BEDSIDE GLUCOSE 96 MG/DL (83-110)
[2018-03-05] MEDS: SANTYL OINT 30GM TOP (14:18)
[2018-03-05] MEDS: WARFARIN SOD 3 MG TAB PO (17:01)
[2018-03-05] MEDS: WARFARIN SOD 2.5 MG TAB PO (17:01)
[2018-03-05 17:03] LABS: BEDSIDE GLUCOSE 102 MG/DL (83-110)
[2018-03-05 17:04] LABS: BEDSIDE GLUCOSE 185 MG/DL (83-110)
[2018-03-05 21:15] LABS: BEDSIDE GLUCOSE 213 MG/DL (83-110)
[2018-03-05] MEDS: ATORVASTATIN 20 MG TAB PO (21:31)
[2018-03-05] MEDS: LEVEMIR (INSULIN DETEMIR) 1 UNITS/0.01ML SC (21:32)
[2018-03-05] MEDS: LATANOPROST 0.005% OPHTH SOLN 2.5 ML OU (21:32)
[2018-03-06] MEDS: CLINDAMYCIN 150 MG CAP PO ×3 (05:26→21:28)
[2018-03-06 05:34] LABS: HEMATOCRIT 35.2 % (42.0-52.0); HEMOGLOBIN 10.8 g/dl (13.5-17.5); MEAN CORPUSCULAR HEMOGLOBIN 30.2 pg (27.0-33.0); MEAN CORPUSCULAR HGB CONC 30.7 g/dl (32.0-36.5); MEAN CORPUSCULAR VOLUME 98.3 fl (80.0-96.0); PLATELET COUNT, AUTOMATED 138 10^3/uL (150-450); RED BLOOD COUNT 3.58 10^6/uL (4.30-6.10); WHITE BLOOD COUNT 6.5 10^3/uL (4.0-10.0)
[2018-03-06] MEDS: ACETAMINOPHEN TAB 650MG DOSE (2X325MG) PO (05:50)
[2018-03-06 05:57] LABS: ANION GAP 7 MEQ/L (8-16); BLOOD UREA NITROGEN 21 MG/DL (7-18); CARBON DIOXIDE LEVEL 29 MEQ/L (21-32); CHLORIDE LEVEL 102 MEQ/L (98-107); CREATININE FOR GFR 5.22 MG/DL (0.70-1.30); GLOMERULAR FILTRATION RATE 14.2 (>42); GLUCOSE, FASTING 133 MG/DL (70-100); PHOSPHORUS LEVEL 4.7 MG/DL (2.5-4.9); POTASSIUM SERUM 4.1 MEQ/L (3.5-5.1); SODIUM LEVEL 138 MEQ/L (136-145)
[2018-03-06 05:58] LABS: ALBUMIN 3.1 GM/DL (3.2-5.2); MAGNESIUM LEVEL 2.2 MG/DL (1.8-2.4)
[2018-03-06 06:03] LABS: INR 2.22
[2018-03-06] MEDS: MIDODRINE 5 MG TAB PO ×3 (09:05→16:58)
[2018-03-06] MEDS: (RENVELA) SEVELAMER **CARBONate** 800 MG TAB PO (09:05)
[2018-03-06] MEDS: HumaLOG INSULIN (NovoLOG) PER UNIT SC ×4 (09:05→21:00)
[2018-03-06] MEDS: CYANOCOBALAMIN 500 MCG TAB PO (09:05)
[2018-03-06] MEDS: LACTOBACILLUS ACIDOPHILUS CAP (BACID) PO ×2 (09:05→17:25)
[2018-03-06] MEDS: SENOKOT S TAB PO ×2 (09:06→21:28)
[2018-03-06] MEDS: GABAPENTIN 100 MG CAP PO (09:06)
[2018-03-06] MEDS: METOPROLOL TART 25 MG TABLET PO ×2 (09:06→21:29)
[2018-03-06] MEDS: ASPIRIN 81 MG ENTERIC TAB PO (09:06)
[2018-03-06] MEDS: VITAMIN D 1,000 INTERNATIONAL UNITS TABLET PO (09:06)
[2018-03-06] MEDS: NEPHRO-VIT TAB (NEPHROCAPS) PO (09:08)
[2018-03-06 11:45] LABS: BEDSIDE GLUCOSE 92 MG/DL (83-110)
[2018-03-06] MEDS: SANTYL OINT 30GM TOP (11:54)
[2018-03-06] MEDS: LACTIC ACID 12% LOTION 225 GM BTL TOP (11:54)
[2018-03-06] MEDS: CALCIUM CARBONATE 500 MG CHEW U/D PO (14:38)
[2018-03-06] MEDS: LevoFLOXacin 250 MG TABLET PO (17:22)
[2018-03-06] MEDS: WARFARIN SOD 2.5 MG TAB PO (17:23)
[2018-03-06] MEDS: WARFARIN SOD 3 MG TAB PO (17:23)
[2018-03-06 17:27] LABS: BEDSIDE GLUCOSE 162 MG/DL (83-110)
[2018-03-06] MEDS: CEPACOL LOZENGE PO (21:28)
[2018-03-06] MEDS: ATORVASTATIN 20 MG TAB PO (21:29)
[2018-03-06] MEDS: LATANOPROST 0.005% OPHTH SOLN 2.5 ML OU (21:30)
[2018-03-06] MEDS: LEVEMIR (INSULIN DETEMIR) 1 UNITS/0.01ML SC (21:30)
[2018-03-06 23:59] LABS: BEDSIDE GLUCOSE 126 MG/DL (83-110)
[2018-03-07] MEDS: CLINDAMYCIN 150 MG CAP PO ×3 (05:45→21:35)
[2018-03-07] MEDS ORDERED: SIMETHICONE 80 MG CHEW TAB PO (05:45)
[2018-03-07 05:57] LABS: TROPONIN I 0.13 NG/ML (< 0.10)
[2018-03-07] MEDS ORDERED: PILL CRUSHER/CUTTER 1 EACH XX (06:00)
[2018-03-07 08:06] LABS: BEDSIDE GLUCOSE 131 MG/DL (83-110)
[2018-03-07] MEDS: HumaLOG INSULIN (NovoLOG) PER UNIT SC ×4 (08:46→21:00)
[2018-03-07] MEDS: NEPHRO-VIT TAB (NEPHROCAPS) PO (08:46)
[2018-03-07] MEDS: GABAPENTIN 100 MG CAP PO (08:47)
[2018-03-07] MEDS: MIDODRINE 5 MG TAB PO ×3 (08:47→16:38)
[2018-03-07] MEDS: CYANOCOBALAMIN 500 MCG TAB PO (08:47)
[2018-03-07] MEDS: LACTOBACILLUS ACIDOPHILUS CAP (BACID) PO ×2 (08:47→17:14)
[2018-03-07] MEDS: (RENVELA) SEVELAMER **CARBONate** 800 MG TAB PO (08:47)
[2018-03-07] MEDS: METOPROLOL TART 25 MG TABLET PO ×2 (08:47→21:34)
[2018-03-07] MEDS: VITAMIN D 1,000 INTERNATIONAL UNITS TABLET PO (08:47)
[2018-03-07] MEDS: ASPIRIN 81 MG ENTERIC TAB PO (08:47)
[2018-03-07] MEDS: SENOKOT S TAB PO ×2 (08:47→21:34)
[2018-03-07] MEDS: SANTYL OINT 30GM TOP (08:48)
[2018-03-07] MEDS: LACTIC ACID 12% LOTION 225 GM BTL TOP (08:48)
[2018-03-07 11:47] LABS: BEDSIDE GLUCOSE 92 MG/DL (83-110)
[2018-03-07 12:55] LABS: TROPONIN I 0.14 NG/ML (< 0.10)
[2018-03-07 16:32] LABS: BEDSIDE GLUCOSE 167 MG/DL (83-110)
[2018-03-07] MEDS: WARFARIN SOD 3 MG TAB PO (16:38)
[2018-03-07] MEDS: WARFARIN SOD 2.5 MG TAB PO (16:38)
[2018-03-07 20:41] LABS: BEDSIDE GLUCOSE 137 MG/DL (83-110)
[2018-03-07] MEDS: LATANOPROST 0.005% OPHTH SOLN 2.5 ML OU (21:35)
[2018-03-07] MEDS: LEVEMIR (INSULIN DETEMIR) 1 UNITS/0.01ML SC (21:35)
[2018-03-07] MEDS: ATORVASTATIN 20 MG TAB PO (21:35)
[2018-03-08 05:43] LABS: BEDSIDE GLUCOSE 108 MG/DL (83-110)
[2018-03-08] MEDS: MIDODRINE 5 MG TAB PO ×3 (06:03→17:20)
[2018-03-08] MEDS: VITAMIN D 1,000 INTERNATIONAL UNITS TABLET PO (06:16)
[2018-03-08] MEDS: SENOKOT S TAB PO ×2 (06:17→21:01)
[2018-03-08] MEDS: METOPROLOL TART 25 MG TABLET PO ×2 (06:17→21:01)
[2018-03-08] MEDS: NEPHRO-VIT TAB (NEPHROCAPS) PO (06:17)
[2018-03-08] MEDS: ASPIRIN 81 MG ENTERIC TAB PO (06:17)
[2018-03-08] MEDS: CYANOCOBALAMIN 500 MCG TAB PO (06:18)
[2018-03-08] MEDS: LACTOBACILLUS ACIDOPHILUS CAP (BACID) PO ×2 (06:18→17:19)
[2018-03-08] MEDS: CLINDAMYCIN 150 MG CAP PO ×3 (06:18→21:01)
[2018-03-08] MEDS: (RENVELA) SEVELAMER **CARBONate** 800 MG TAB PO ×3 (08:12→17:19)
[2018-03-08] MEDS: HumaLOG INSULIN (NovoLOG) PER UNIT SC ×4 (08:13→20:34)
[2018-03-08 09:32] LABS: INR 2.66; PROTHROMBIN TIME 28.9 SECONDS (12.1-14.4)
[2018-03-08 09:39] LABS: HEMATOCRIT 33.7 % (42.0-52.0); HEMOGLOBIN 10.5 g/dl (13.5-17.5); MEAN CORPUSCULAR HEMOGLOBIN 30.6 pg (27.0-33.0); MEAN CORPUSCULAR HGB CONC 31.2 g/dl (32.0-36.5); MEAN CORPUSCULAR VOLUME 98.3 fl (80.0-96.0); PLATELET COUNT, AUTOMATED 156 10^3/uL (150-450); RED BLOOD COUNT 3.43 10^6/uL (4.30-6.10); RED CELL DISTRIBUTION WIDTH 19.9 % (11.5-14.5)
[2018-03-08 09:49] LABS: ANION GAP 11 MEQ/L (8-16); BLOOD UREA NITROGEN 49 MG/DL (7-18); CALCIUM LEVEL 8.6 MG/DL (8.8-10.2); CARBON DIOXIDE LEVEL 25 MEQ/L (21-32); CHLORIDE LEVEL 103 MEQ/L (98-107); CREATININE FOR GFR 9.39 MG/DL (0.70-1.30); GLOMERULAR FILTRATION RATE 7.2 (>42); GLUCOSE, FASTING 181 MG/DL (70-100); MAGNESIUM LEVEL 2.1 MG/DL (1.8-2.4); PHOSPHORUS LEVEL 7.2 MG/DL (2.5-4.9); POTASSIUM SERUM 5.3 MEQ/L (3.5-5.1); SODIUM LEVEL 139 MEQ/L (136-145)
[2018-03-08 13:45] LABS: BEDSIDE GLUCOSE 95 MG/DL (83-110)
[2018-03-08] MEDS: HEPARIN 1,000 UNITS/ML 10ML VIAL (FOR RADIOLOGY& DIALYSIS ONLY) IV (15:51)
[2018-03-08 16:57] LABS: BEDSIDE GLUCOSE 179 MG/DL (83-110)
[2018-03-08] MEDS: LACTIC ACID 12% LOTION 225 GM BTL TOP (17:18)
[2018-03-08] MEDS: SANTYL OINT 30GM TOP (17:19)
[2018-03-08] MEDS: WARFARIN SOD 3 MG TAB PO (17:19)
[2018-03-08] MEDS: WARFARIN SOD 2.5 MG TAB PO (17:19)
[2018-03-08] MEDS: LevoFLOXacin 250 MG TABLET PO (17:19)
[2018-03-08 20:10] LABS: BEDSIDE GLUCOSE 147 MG/DL (83-110)
[2018-03-08] MEDS: LATANOPROST 0.005% OPHTH SOLN 2.5 ML OU (21:01)
[2018-03-08] MEDS: ATORVASTATIN 20 MG TAB PO (21:01)
[2018-03-08] MEDS: LEVEMIR (INSULIN DETEMIR) 1 UNITS/0.01ML SC (21:02)
[2018-03-09] MEDS: CLINDAMYCIN 150 MG CAP PO ×3 (05:38→21:32)
[2018-03-09 06:16] LABS: BEDSIDE GLUCOSE 95 MG/DL (83-110)
[2018-03-09] MEDS: HumaLOG INSULIN (NovoLOG) PER UNIT SC ×4 (07:30→20:11)
[2018-03-09] MEDS: MIDODRINE 5 MG TAB PO ×3 (07:47→16:00)
[2018-03-09] MEDS: VITAMIN D 1,000 INTERNATIONAL UNITS TABLET PO (07:53)
[2018-03-09] MEDS: NEPHRO-VIT TAB (NEPHROCAPS) PO (07:53)
[2018-03-09] MEDS: METOPROLOL TART 25 MG TABLET PO ×2 (07:53→21:33)
[2018-03-09] MEDS: ASPIRIN 81 MG ENTERIC TAB PO (07:53)
[2018-03-09] MEDS: (RENVELA) SEVELAMER **CARBONate** 800 MG TAB PO ×3 (07:53→17:17)
[2018-03-09] MEDS: LACTOBACILLUS ACIDOPHILUS CAP (BACID) PO ×2 (07:53→17:17)
[2018-03-09] MEDS: GABAPENTIN 100 MG CAP PO (07:54)
[2018-03-09] MEDS: SENOKOT S TAB PO ×2 (07:54→21:33)
[2018-03-09] MEDS: LACTIC ACID 12% LOTION 225 GM BTL TOP (07:54)
[2018-03-09] MEDS: CYANOCOBALAMIN 500 MCG TAB PO (07:54)
[2018-03-09] MEDS: SANTYL OINT 30GM TOP (07:55)
[2018-03-09 11:34] LABS: BEDSIDE GLUCOSE 127 MG/DL (83-110)
[2018-03-09 17:05] LABS: BEDSIDE GLUCOSE 128 MG/DL (83-110)
[2018-03-09] MEDS: WARFARIN SOD 2.5 MG TAB PO (17:16)
[2018-03-09] MEDS: WARFARIN SOD 3 MG TAB PO (17:16)
[2018-03-09 20:00] LABS: BEDSIDE GLUCOSE 160 MG/DL (83-110)
[2018-03-09] MEDS: ATORVASTATIN 20 MG TAB PO (21:32)
[2018-03-09] MEDS: LATANOPROST 0.005% OPHTH SOLN 2.5 ML OU (21:33)
[2018-03-09] MEDS: LEVEMIR (INSULIN DETEMIR) 1 UNITS/0.01ML SC (21:33)
[2018-03-10 06:24] LABS: BEDSIDE GLUCOSE 132 MG/DL (83-110)
[2018-03-10] MEDS: CLINDAMYCIN 150 MG CAP PO ×3 (06:27→21:16)
[2018-03-10] MEDS: NEPHRO-VIT TAB (NEPHROCAPS) PO (06:27)
[2018-03-10] MEDS: CYANOCOBALAMIN 500 MCG TAB PO (06:27)
[2018-03-10] MEDS: SENOKOT S TAB PO ×2 (06:28→21:17)
[2018-03-10] MEDS: ASPIRIN 81 MG ENTERIC TAB PO (06:28)
[2018-03-10] MEDS: MIDODRINE 5 MG TAB PO ×3 (06:28→13:44)
[2018-03-10] MEDS: VITAMIN D 1,000 INTERNATIONAL UNITS TABLET PO (06:28)
[2018-03-10] MEDS: METOPROLOL TART 25 MG TABLET PO ×2 (06:28→21:17)
[2018-03-10] MEDS: (RENVELA) SEVELAMER **CARBONate** 800 MG TAB PO ×3 (07:30→17:03)
[2018-03-10] MEDS: HumaLOG INSULIN (NovoLOG) PER UNIT SC ×4 (07:30→21:00)
[2018-03-10] MEDS: LACTIC ACID 12% LOTION 225 GM BTL TOP (08:12)
[2018-03-10] MEDS: LACTOBACILLUS ACIDOPHILUS CAP (BACID) PO ×2 (08:12→17:03)
[2018-03-10] MEDS: SANTYL OINT 30GM TOP (08:13)
[2018-03-10 10:29] LABS: BASO % 0.4 % (0.0-1.0); EOS # 0.2 10^3/uL (0.0-0.50); EOS % 2.8 % (0.0-3.0); HEMATOCRIT 33.6 % (42.0-52.0); HEMOGLOBIN 10.2 g/dl (13.5-17.5); IMMATURE GRANULOCYTE % 0.1 % (0-3.0); LYMPH # 1.1 10^3/uL (1.5-4.5); LYMPH % 16.3 % (24.0-44.0); MEAN CORPUSCULAR HGB CONC 30.4 g/dl (32.0-36.5); MEAN CORPUSCULAR VOLUME 98.8 fl (80.0-96.0); MONO # 0.9 10^3/uL (0.0-0.8); MONO % 12.5 % (0.0-5.0); NEUTROPHILS # 4.6 10^3/uL (1.8-7.7); NEUTROPHILS % 67.9 % (36.0-66.0); PLATELET COUNT, AUTOMATED 143 10^3/uL (150-450); RED CELL DISTRIBUTION WIDTH 19.9 % (11.5-14.5); WHITE BLOOD COUNT 6.8 10^3/uL (4.0-10.0)
[2018-03-10] MEDS: HEPARIN 1,000 UNITS/ML 10ML VIAL (FOR RADIOLOGY& DIALYSIS ONLY) IV (11:15)
[2018-03-10 11:17] LABS: ANION GAP 10 MEQ/L (8-16); BLOOD UREA NITROGEN 46 MG/DL (7-18); CARBON DIOXIDE LEVEL 27 MEQ/L (21-32); CHLORIDE LEVEL 100 MEQ/L (98-107); CREATININE FOR GFR 8.55 MG/DL (0.70-1.30); GLUCOSE, FASTING 190 MG/DL (70-100); PHOSPHORUS LEVEL 6.7 MG/DL (2.5-4.9); POTASSIUM SERUM 5.1 MEQ/L (3.5-5.1); SODIUM LEVEL 137 MEQ/L (136-145)
[2018-03-10] MEDS: WARFARIN SOD 3 MG TAB PO (17:03)
[2018-03-10] MEDS: WARFARIN SOD 2.5 MG TAB PO (17:03)
[2018-03-10] MEDS: LevoFLOXacin 250 MG TABLET PO (17:03)
[2018-03-10] MEDS: LEVEMIR (INSULIN DETEMIR) 1 UNITS/0.01ML SC (21:16)
[2018-03-10] MEDS: ATORVASTATIN 20 MG TAB PO (21:16)
[2018-03-10] MEDS: LATANOPROST 0.005% OPHTH SOLN 2.5 ML OU (21:18)
[2018-03-11 03:04] LABS: BEDSIDE GLUCOSE 115 MG/DL (83-110)
[2018-03-11 03:04] LABS: BEDSIDE GLUCOSE 197 MG/DL (83-110)
[2018-03-11] MEDS: CLINDAMYCIN 150 MG CAP PO ×3 (05:01→20:52)
[2018-03-11] MEDS: HumaLOG INSULIN (NovoLOG) PER UNIT SC ×4 (07:29→20:55)
[2018-03-11] MEDS: ASPIRIN 81 MG ENTERIC TAB PO (09:44)
[2018-03-11] MEDS: VITAMIN D 1,000 INTERNATIONAL UNITS TABLET PO (09:44)
[2018-03-11] MEDS: METOPROLOL TART 25 MG TABLET PO ×2 (09:44→20:53)
[2018-03-11] MEDS: (RENVELA) SEVELAMER **CARBONate** 800 MG TAB PO ×3 (09:45→17:42)
[2018-03-11] MEDS: LACTOBACILLUS ACIDOPHILUS CAP (BACID) PO ×2 (09:45→17:42)
[2018-03-11] MEDS: NEPHRO-VIT TAB (NEPHROCAPS) PO (09:45)
[2018-03-11] MEDS: SENOKOT S TAB PO ×2 (09:45→20:53)
[2018-03-11] MEDS: MIDODRINE 5 MG TAB PO ×3 (09:45→17:42)
[2018-03-11] MEDS: GABAPENTIN 100 MG CAP PO (09:45)
[2018-03-11] MEDS: CYANOCOBALAMIN 500 MCG TAB PO (09:45)
[2018-03-11] MEDS: SANTYL OINT 30GM TOP (09:45)
[2018-03-11] MEDS: LACTIC ACID 12% LOTION 225 GM BTL TOP (09:48)
[2018-03-11 17:11] LABS: BEDSIDE GLUCOSE 145 MG/DL (83-110)
[2018-03-11] MEDS: WARFARIN SOD 3 MG TAB PO (17:42)
[2018-03-11] MEDS: WARFARIN SOD 2.5 MG TAB PO (17:42)
[2018-03-11 20:49] LABS: BEDSIDE GLUCOSE 135 MG/DL (83-110)
[2018-03-11] MEDS: LEVEMIR (INSULIN DETEMIR) 1 UNITS/0.01ML SC (20:53)
[2018-03-11] MEDS: ATORVASTATIN 20 MG TAB PO (20:53)
[2018-03-11] MEDS: LATANOPROST 0.005% OPHTH SOLN 2.5 ML OU (21:01)
[2018-03-12] MEDS: CLINDAMYCIN 150 MG CAP PO ×3 (06:12→21:30)
[2018-03-12] MEDS: LACTOBACILLUS ACIDOPHILUS CAP (BACID) PO ×2 (06:12→17:58)
[2018-03-12] MEDS: MIDODRINE 5 MG TAB PO ×3 (06:12→15:31)
[2018-03-12] MEDS: (RENVELA) SEVELAMER **CARBONate** 800 MG TAB PO ×3 (06:12→17:58)
[2018-03-12] MEDS: GABAPENTIN 100 MG CAP PO (06:17)
[2018-03-12] MEDS: VITAMIN D 1,000 INTERNATIONAL UNITS TABLET PO (06:17)
[2018-03-12] MEDS: NEPHRO-VIT TAB (NEPHROCAPS) PO (06:18)
[2018-03-12] MEDS: METOPROLOL TART 25 MG TABLET PO ×2 (06:18→21:31)
[2018-03-12] MEDS: CYANOCOBALAMIN 500 MCG TAB PO (06:18)
[2018-03-12] MEDS: SENOKOT S TAB PO ×2 (06:19→21:31)
[2018-03-12] MEDS: SANTYL OINT 30GM TOP (06:19)
[2018-03-12] MEDS: ASPIRIN 81 MG ENTERIC TAB PO (06:19)
[2018-03-12] MEDS: LACTIC ACID 12% LOTION 225 GM BTL TOP (06:20)
[2018-03-12] MEDS: HumaLOG INSULIN (NovoLOG) PER UNIT SC ×4 (07:32→21:32)
[2018-03-12 10:28] LABS: BASO % 0.6 % (0.0-1.0); EOS # 0.2 10^3/uL (0.0-0.50); EOS % 2.4 % (0.0-3.0); HEMATOCRIT 34.1 % (42.0-52.0); HEMOGLOBIN 10.9 g/dl (13.5-17.5); IMMATURE GRANULOCYTE % 0.3 % (0-3.0); LYMPH % 13.8 % (24.0-44.0); MEAN CORPUSCULAR HEMOGLOBIN 30.9 pg (27.0-33.0); MEAN CORPUSCULAR VOLUME 96.6 fl (80.0-96.0); MONO # 0.8 10^3/uL (0.0-0.8); MONO % 11.9 % (0.0-5.0); PLATELET COUNT, AUTOMATED 153 10^3/uL (150-450); RED BLOOD COUNT 3.53 10^6/uL (4.30-6.10); RED CELL DISTRIBUTION WIDTH 19.7 % (11.5-14.5)
[2018-03-12 11:06] LABS: ALBUMIN 3.1 GM/DL (3.2-5.2); ANION GAP 10 MEQ/L (8-16); BLOOD UREA NITROGEN 27 MG/DL (7-18); CALCIUM LEVEL 8.7 MG/DL (8.8-10.2); CARBON DIOXIDE LEVEL 28 MEQ/L (21-32); CHLORIDE LEVEL 101 MEQ/L (98-107); CREATININE FOR GFR 5.42 MG/DL (0.70-1.30); GLOMERULAR FILTRATION RATE 13.6 (>42); GLUCOSE, FASTING 124 MG/DL (70-100); PHOSPHORUS LEVEL 3.6 MG/DL (2.5-4.9); POTASSIUM SERUM 3.9 MEQ/L (3.5-5.1); SODIUM LEVEL 139 MEQ/L (136-145)
[2018-03-12] MEDS: HEPARIN 1,000 UNITS/ML 10ML VIAL (FOR RADIOLOGY& DIALYSIS ONLY) IV (11:45)
[2018-03-12 12:01] LABS: BEDSIDE GLUCOSE 91 MG/DL (83-110)
[2018-03-12 12:01] LABS: BEDSIDE GLUCOSE 127 MG/DL (83-110)
[2018-03-12 16:52] LABS: BEDSIDE GLUCOSE 203 MG/DL (83-110)
[2018-03-12] MEDS: WARFARIN SOD 2.5 MG TAB PO (17:57)
[2018-03-12] MEDS: WARFARIN SOD 3 MG TAB PO (17:57)
[2018-03-12] MEDS: LevoFLOXacin 250 MG TABLET PO (17:58)
[2018-03-12 19:40] LABS: BEDSIDE GLUCOSE 158 MG/DL (83-110)
[2018-03-12] MEDS: LATANOPROST 0.005% OPHTH SOLN 2.5 ML OU (21:29)
[2018-03-12] MEDS: LEVEMIR (INSULIN DETEMIR) 1 UNITS/0.01ML SC (21:31)
[2018-03-12] MEDS: ATORVASTATIN 20 MG TAB PO (21:31)
[2018-03-13] MEDS: CLINDAMYCIN 150 MG CAP PO ×2 (05:05→13:08)
[2018-03-13] MEDS: SENOKOT S TAB PO ×2 (09:00→21:29)
[2018-03-13] MEDS: SANTYL OINT 30GM TOP (09:10)
[2018-03-13] MEDS: LACTIC ACID 12% LOTION 225 GM BTL TOP (09:11)
[2018-03-13] MEDS: CYANOCOBALAMIN 500 MCG TAB PO (09:17)
[2018-03-13] MEDS: METOPROLOL TART 25 MG TABLET PO ×2 (09:17→21:28)
[2018-03-13] MEDS: NEPHRO-VIT TAB (NEPHROCAPS) PO (09:17)
[2018-03-13] MEDS: VITAMIN D 1,000 INTERNATIONAL UNITS TABLET PO (09:18)
[2018-03-13] MEDS: MIDODRINE 5 MG TAB PO ×3 (09:18→17:00)
[2018-03-13] MEDS: HumaLOG INSULIN (NovoLOG) PER UNIT SC ×4 (09:18→21:21)
[2018-03-13] MEDS: GABAPENTIN 100 MG CAP PO (09:18)
[2018-03-13] MEDS: ASPIRIN 81 MG ENTERIC TAB PO (09:18)
[2018-03-13] MEDS: (RENVELA) SEVELAMER **CARBONate** 800 MG TAB PO ×3 (09:18→17:00)
[2018-03-13] MEDS: LACTOBACILLUS ACIDOPHILUS CAP (BACID) PO ×2 (09:18→17:00)
[2018-03-13] MEDS: WARFARIN SOD 3 MG TAB PO (17:00)
[2018-03-13] MEDS: WARFARIN SOD 2.5 MG TAB PO (17:00)
[2018-03-13] MEDS: ATORVASTATIN 20 MG TAB PO (21:28)
[2018-03-13] MEDS: LATANOPROST 0.005% OPHTH SOLN 2.5 ML OU (21:29)
[2018-03-13] MEDS: LEVEMIR (INSULIN DETEMIR) 1 UNITS/0.01ML SC (21:29)
[2018-03-14 00:15] LABS: BEDSIDE GLUCOSE 172 MG/DL (83-110)
[2018-03-14 00:15] LABS: BEDSIDE GLUCOSE 99 MG/DL (83-110)
[2018-03-14 00:16] LABS: BEDSIDE GLUCOSE 164 MG/DL (83-110)
[2018-03-14 00:16] LABS: BEDSIDE GLUCOSE 140 MG/DL (83-110)
[2018-03-14 06:59] LABS: BEDSIDE GLUCOSE 102 MG/DL (83-110)
[2018-03-14 07:01] LABS: INR 2.29; PROTHROMBIN TIME 25.7 SECONDS (12.1-14.4)
[2018-03-14] MEDS: HumaLOG INSULIN (NovoLOG) PER UNIT SC ×4 (07:05→21:06)
[2018-03-14] MEDS: (RENVELA) SEVELAMER **CARBONate** 800 MG TAB PO ×3 (07:37→17:17)
[2018-03-14] MEDS: NEPHRO-VIT TAB (NEPHROCAPS) PO (07:37)
[2018-03-14] MEDS: VITAMIN D 1,000 INTERNATIONAL UNITS TABLET PO (07:37)
[2018-03-14] MEDS: ASPIRIN 81 MG ENTERIC TAB PO (07:37)
[2018-03-14] MEDS: LACTOBACILLUS ACIDOPHILUS CAP (BACID) PO ×2 (07:37→17:17)
[2018-03-14] MEDS: SENOKOT S TAB PO ×3 (07:37→21:07)
[2018-03-14] MEDS: CYANOCOBALAMIN 500 MCG TAB PO (07:38)
[2018-03-14] MEDS: METOPROLOL TART 25 MG TABLET PO ×2 (07:38→21:16)
[2018-03-14] MEDS: GABAPENTIN 100 MG CAP PO (07:38)
[2018-03-14] MEDS: MIDODRINE 5 MG TAB PO ×3 (07:38→17:17)
[2018-03-14] MEDS: LACTIC ACID 12% LOTION 225 GM BTL TOP (07:40)
[2018-03-14] MEDS: SANTYL OINT 30GM TOP (07:40)
[2018-03-14] MEDS: WARFARIN SOD 2.5 MG TAB PO (17:17)
[2018-03-14] MEDS: WARFARIN SOD 3 MG TAB PO (17:17)
[2018-03-14] MEDS: LevoFLOXacin 250 MG TABLET PO (17:17)
[2018-03-14 21:02] LABS: BEDSIDE GLUCOSE 124 MG/DL (83-110)
[2018-03-14] MEDS: LEVEMIR (INSULIN DETEMIR) 1 UNITS/0.01ML SC (21:15)
[2018-03-14] MEDS: ATORVASTATIN 20 MG TAB PO (21:16)
[2018-03-14] MEDS: LATANOPROST 0.005% OPHTH SOLN 2.5 ML OU (21:16)
[2018-03-15] MEDS: (RENVELA) SEVELAMER **CARBONate** 800 MG TAB PO ×3 (06:41→18:39)
[2018-03-15] MEDS: LACTOBACILLUS ACIDOPHILUS CAP (BACID) PO ×2 (06:41→18:39)
[2018-03-15] MEDS: MIDODRINE 5 MG TAB PO ×3 (06:42→16:00)
[2018-03-15] MEDS: ATORVASTATIN 20 MG TAB PO (06:42)
[2018-03-15] MEDS: METOPROLOL TART 25 MG TABLET PO ×2 (06:42→22:01)
[2018-03-15] MEDS: VITAMIN D 1,000 INTERNATIONAL UNITS TABLET PO (06:42)
[2018-03-15] MEDS: CYANOCOBALAMIN 500 MCG TAB PO (06:42)
[2018-03-15] MEDS: ASPIRIN 81 MG ENTERIC TAB PO (06:43)
[2018-03-15] MEDS: SENOKOT S TAB PO ×2 (06:43→21:56)
[2018-03-15] MEDS: NEPHRO-VIT TAB (NEPHROCAPS) PO (06:43)
[2018-03-15] MEDS: HumaLOG INSULIN (NovoLOG) PER UNIT SC ×4 (07:30→21:00)
[2018-03-15] MEDS: LACTIC ACID 12% LOTION 225 GM BTL TOP (07:58)
[2018-03-15] MEDS: SANTYL OINT 30GM TOP (07:59)
[2018-03-15 11:32] LABS: BEDSIDE GLUCOSE 161 MG/DL (83-110)
[2018-03-15 12:31] LABS: BEDSIDE GLUCOSE 90 MG/DL (83-110)
[2018-03-15 12:31] LABS: BEDSIDE GLUCOSE 156 MG/DL (83-110)
[2018-03-15 12:31] LABS: BEDSIDE GLUCOSE 232 MG/DL (83-110)
[2018-03-15] MEDS: HEPARIN 1,000 UNITS/ML 10ML VIAL (FOR RADIOLOGY& DIALYSIS ONLY) IV (15:45)
[2018-03-15 18:38] LABS: BEDSIDE GLUCOSE 99 MG/DL (83-110)
[2018-03-15] MEDS: WARFARIN SOD 3 MG TAB PO (18:39)
[2018-03-15] MEDS: WARFARIN SOD 2.5 MG TAB PO (18:40)
[2018-03-15 20:43] LABS: BEDSIDE GLUCOSE 137 MG/DL (83-110)
[2018-03-15] MEDS: CEPACOL LOZENGE PO (21:47)
[2018-03-15] MEDS: LEVEMIR (INSULIN DETEMIR) 1 UNITS/0.01ML SC (21:57)
[2018-03-15] MEDS: LATANOPROST 0.005% OPHTH SOLN 2.5 ML OU (21:57)
[2018-03-16] MEDS: ACETAMINOPHEN TAB 650MG DOSE (2X325MG) PO (03:41)
[2018-03-16 06:25] LABS: BEDSIDE GLUCOSE 151 MG/DL (83-110)
[2018-03-16 06:54] LABS: ERYTHROCYTE SEDIMENTATION RATE 54 mm/hr (0-20)
[2018-03-16 07:07] LABS: C REACTIVE PROTEIN QUANTITATIV 5.53 MG/DL (0.00-0.30)
[2018-03-16] MEDS: HumaLOG INSULIN (NovoLOG) PER UNIT SC ×4 (07:42→21:00)
[2018-03-16] MEDS: LACTOBACILLUS ACIDOPHILUS CAP (BACID) PO ×2 (07:42→17:08)
[2018-03-16] MEDS: VITAMIN D 1,000 INTERNATIONAL UNITS TABLET PO (07:42)
[2018-03-16] MEDS: GABAPENTIN 100 MG CAP PO (07:42)
[2018-03-16] MEDS: ASPIRIN 81 MG ENTERIC TAB PO (07:42)
[2018-03-16] MEDS: (RENVELA) SEVELAMER **CARBONate** 800 MG TAB PO ×3 (07:42→17:08)
[2018-03-16] MEDS: METOPROLOL TART 25 MG TABLET PO ×2 (07:43→22:00)
[2018-03-16] MEDS: CYANOCOBALAMIN 500 MCG TAB PO (07:43)
[2018-03-16] MEDS: MIDODRINE 5 MG TAB PO ×3 (07:43→17:08)
[2018-03-16] MEDS: SENOKOT S TAB PO ×2 (07:43→21:59)
[2018-03-16] MEDS: NEPHRO-VIT TAB (NEPHROCAPS) PO (07:43)
[2018-03-16] MEDS: SANTYL OINT 30GM TOP (07:44)
[2018-03-16] MEDS: LACTIC ACID 12% LOTION 225 GM BTL TOP (07:44)
[2018-03-16 10:55] LABS: BASO # 0.1 10^3/uL (0.0-0.2); BASO % 0.9 % (0.0-1.0); EOS # 0.2 10^3/uL (0.0-0.50); EOS % 2.2 % (0.0-3.0); HEMATOCRIT 34.1 % (42.0-52.0); HEMOGLOBIN 10.7 g/dl (13.5-17.5); IMMATURE GRANULOCYTE % 0.3 % (0-3.0); LYMPH # 1.2 10^3/uL (1.5-4.5); LYMPH % 17.6 % (24.0-44.0); MEAN CORPUSCULAR HEMOGLOBIN 30.8 pg (27.0-33.0); MEAN CORPUSCULAR HGB CONC 31.4 g/dl (32.0-36.5); MEAN CORPUSCULAR VOLUME 98.3 fl (80.0-96.0); MONO # 0.9 10^3/uL (0.0-0.8); MONO % 13.5 % (0.0-5.0); NEUTROPHILS # 4.5 10^3/uL (1.8-7.7); NEUTROPHILS % 65.5 % (36.0-66.0); PLATELET COUNT, AUTOMATED 155 10^3/uL (150-450); RED BLOOD COUNT 3.47 10^6/uL (4.30-6.10); RED CELL DISTRIBUTION WIDTH 19.1 % (11.5-14.5); WHITE BLOOD COUNT 6.8 10^3/uL (4.0-10.0)
[2018-03-16 11:00] LABS: ANION GAP 11 MEQ/L (8-16); BLOOD UREA NITROGEN 37 MG/DL (7-18); CALCIUM LEVEL 9.4 MG/DL (8.8-10.2); CARBON DIOXIDE LEVEL 25 MEQ/L (21-32); CHLORIDE LEVEL 101 MEQ/L (98-107); CREATININE FOR GFR 7.39 MG/DL (0.70-1.30); GLOMERULAR FILTRATION RATE 9.5 (>42); GLUCOSE, FASTING 145 MG/DL (70-100); POTASSIUM SERUM 4.5 MEQ/L (3.5-5.1); SODIUM LEVEL 137 MEQ/L (136-145)
[2018-03-16 11:08] LABS: INR 2.04; PROTHROMBIN TIME 23.4 SECONDS (12.1-14.4)
[2018-03-16 11:54] LABS: BEDSIDE GLUCOSE 94 MG/DL (83-110)
[2018-03-16 16:45] LABS: BEDSIDE GLUCOSE 186 MG/DL (83-110)
[2018-03-16] MEDS: WARFARIN SOD 3 MG TAB PO (17:09)
[2018-03-16] MEDS: LevoFLOXacin 250 MG TABLET PO (17:09)
[2018-03-16] MEDS: WARFARIN SOD 2.5 MG TAB PO (17:10)
[2018-03-16 20:49] LABS: BEDSIDE GLUCOSE 154 MG/DL (83-110)
[2018-03-16] MEDS: ATORVASTATIN 20 MG TAB PO (21:59)
[2018-03-16] MEDS: LEVEMIR (INSULIN DETEMIR) 1 UNITS/0.01ML SC (22:01)
[2018-03-16] MEDS: LATANOPROST 0.005% OPHTH SOLN 2.5 ML OU (22:02)
[2018-03-17 05:47] LABS: BASO % 0.6 % (0.0-1.0); EOS # 0.2 10^3/uL (0.0-0.50); EOS % 2.4 % (0.0-3.0); HEMATOCRIT 34.4 % (42.0-52.0); HEMOGLOBIN 10.8 g/dl (13.5-17.5); IMMATURE GRANULOCYTE % 0.3 % (0-3.0); LYMPH # 1.3 10^3/uL (1.5-4.5); LYMPH % 18.2 % (24.0-44.0); MEAN CORPUSCULAR HEMOGLOBIN 30.3 pg (27.0-33.0); MEAN CORPUSCULAR HGB CONC 31.4 g/dl (32.0-36.5); MEAN CORPUSCULAR VOLUME 96.4 fl (80.0-96.0); MONO # 0.9 10^3/uL (0.0-0.8); MONO % 13.2 % (0.0-5.0); NEUTROPHILS # 4.6 10^3/uL (1.8-7.7); NEUTROPHILS % 65.3 % (36.0-66.0); PLATELET COUNT, AUTOMATED 171 10^3/uL (150-450); RED BLOOD COUNT 3.57 10^6/uL (4.30-6.10); RED CELL DISTRIBUTION WIDTH 18.6 % (11.5-14.5); WHITE BLOOD COUNT 7.1 10^3/uL (4.0-10.0)
[2018-03-17 06:05] LABS: ANION GAP 8 MEQ/L (8-16); BLOOD UREA NITROGEN 52 MG/DL (7-18); C REACTIVE PROTEIN QUANTITATIV 6.57 MG/DL (0.00-0.30); CARBON DIOXIDE LEVEL 26 MEQ/L (21-32); CHLORIDE LEVEL 103 MEQ/L (98-107); CREATININE FOR GFR 9.15 MG/DL (0.70-1.30); GLOMERULAR FILTRATION RATE 7.4 (>42); GLUCOSE, FASTING 103 MG/DL (70-100); POTASSIUM SERUM 5.2 MEQ/L (3.5-5.1); SODIUM LEVEL 137 MEQ/L (136-145)
[2018-03-17 06:39] LABS: ERYTHROCYTE SEDIMENTATION RATE 51 mm/hr (0-20)
[2018-03-17] MEDS: LACTOBACILLUS ACIDOPHILUS CAP (BACID) PO ×2 (06:53→17:05)
[2018-03-17] MEDS: NEPHRO-VIT TAB (NEPHROCAPS) PO (06:53)
[2018-03-17] MEDS: VITAMIN D 1,000 INTERNATIONAL UNITS TABLET PO (06:53)
[2018-03-17] MEDS: CYANOCOBALAMIN 500 MCG TAB PO (06:53)
[2018-03-17] MEDS: ASPIRIN 81 MG ENTERIC TAB PO (06:54)
[2018-03-17] MEDS: SENOKOT S TAB PO ×2 (06:54→21:57)
[2018-03-17] MEDS: METOPROLOL TART 25 MG TABLET PO ×2 (06:54→21:57)
[2018-03-17] MEDS: MIDODRINE 5 MG TAB PO ×3 (06:55→17:05)
[2018-03-17] MEDS: LACTIC ACID 12% LOTION 225 GM BTL TOP (06:56)
[2018-03-17] MEDS: SANTYL OINT 30GM TOP (06:56)
[2018-03-17] MEDS: (RENVELA) SEVELAMER **CARBONate** 800 MG TAB PO ×3 (07:48→17:05)
[2018-03-17] MEDS: HumaLOG INSULIN (NovoLOG) PER UNIT SC ×4 (07:48→21:00)
[2018-03-17 13:43] LABS: BEDSIDE GLUCOSE 85 MG/DL (83-110)
[2018-03-17] MEDS: HEPARIN 1,000 UNITS/ML 10ML VIAL (FOR RADIOLOGY& DIALYSIS ONLY) IV (13:51)
[2018-03-17 16:52] LABS: BEDSIDE GLUCOSE 221 MG/DL (83-110)
[2018-03-17] MEDS: WARFARIN SOD 3 MG TAB PO (17:04)
[2018-03-17] MEDS: WARFARIN SOD 2.5 MG TAB PO (17:04)
[2018-03-17 21:04] LABS: BEDSIDE GLUCOSE 140 MG/DL (83-110)
[2018-03-17] MEDS: ATORVASTATIN 20 MG TAB PO (21:57)
[2018-03-17] MEDS: LATANOPROST 0.005% OPHTH SOLN 2.5 ML OU (21:58)
[2018-03-17] MEDS: LEVEMIR (INSULIN DETEMIR) 1 UNITS/0.01ML SC (21:58)
[2018-03-18 04:58] LABS: BEDSIDE GLUCOSE 92 MG/DL (83-110)
[2018-03-18] MEDS: (RENVELA) SEVELAMER **CARBONate** 800 MG TAB PO ×3 (08:19→17:05)
[2018-03-18] MEDS: SANTYL OINT 30GM TOP (08:19)
[2018-03-18] MEDS: MIDODRINE 5 MG TAB PO ×3 (08:20→17:05)
[2018-03-18] MEDS: LACTOBACILLUS ACIDOPHILUS CAP (BACID) PO ×2 (08:20→17:05)
[2018-03-18] MEDS: SENOKOT S TAB PO ×2 (08:20→21:47)
[2018-03-18] MEDS: GABAPENTIN 100 MG CAP PO (08:20)
[2018-03-18] MEDS: CYANOCOBALAMIN 500 MCG TAB PO (08:20)
[2018-03-18] MEDS: VITAMIN D 1,000 INTERNATIONAL UNITS TABLET PO (08:21)
[2018-03-18] MEDS: METOPROLOL TART 25 MG TABLET PO ×2 (08:21→21:47)
[2018-03-18] MEDS: ASPIRIN 81 MG ENTERIC TAB PO (08:21)
[2018-03-18] MEDS: HumaLOG INSULIN (NovoLOG) PER UNIT SC ×4 (08:22→21:41)
[2018-03-18] MEDS: LACTIC ACID 12% LOTION 225 GM BTL TOP (08:23)
[2018-03-18] MEDS: NEPHRO-VIT TAB (NEPHROCAPS) PO (08:27)
[2018-03-18 12:11] LABS: BEDSIDE GLUCOSE 130 MG/DL (83-110)
[2018-03-18 16:47] LABS: BEDSIDE GLUCOSE 164 MG/DL (83-110)
[2018-03-18] MEDS: WARFARIN SOD 2.5 MG TAB PO (17:05)
[2018-03-18] MEDS: LevoFLOXacin 250 MG TABLET PO (17:05)
[2018-03-18] MEDS: WARFARIN SOD 3 MG TAB PO (17:05)
[2018-03-18 20:40] LABS: BEDSIDE GLUCOSE 161 MG/DL (83-110)
[2018-03-18] MEDS: ATORVASTATIN 20 MG TAB PO (21:47)
[2018-03-18] MEDS: LEVEMIR (INSULIN DETEMIR) 1 UNITS/0.01ML SC (21:48)
[2018-03-18] MEDS: LATANOPROST 0.005% OPHTH SOLN 2.5 ML OU (21:49)
[2018-03-19 06:58] LABS: BEDSIDE GLUCOSE 121 MG/DL (83-110)
[2018-03-19] MEDS: ASPIRIN 81 MG ENTERIC TAB PO (07:51)
[2018-03-19] MEDS: (RENVELA) SEVELAMER **CARBONate** 800 MG TAB PO ×3 (07:52→17:19)
[2018-03-19] MEDS: VITAMIN D 1,000 INTERNATIONAL UNITS TABLET PO (07:52)
[2018-03-19] MEDS: METOPROLOL TART 25 MG TABLET PO ×2 (07:52→20:23)
[2018-03-19] MEDS: SENOKOT S TAB PO ×2 (07:52→20:22)
[2018-03-19] MEDS: CYANOCOBALAMIN 500 MCG TAB PO (07:52)
[2018-03-19] MEDS: LACTOBACILLUS ACIDOPHILUS CAP (BACID) PO ×2 (07:53→17:19)
[2018-03-19] MEDS: HumaLOG INSULIN (NovoLOG) PER UNIT SC ×4 (07:53→21:47)
[2018-03-19] MEDS: MIDODRINE 5 MG TAB PO ×3 (07:53→17:20)
[2018-03-19] MEDS: NEPHRO-VIT TAB (NEPHROCAPS) PO (07:53)
[2018-03-19] MEDS: LACTIC ACID 12% LOTION 225 GM BTL TOP (07:54)
[2018-03-19] MEDS: SANTYL OINT 30GM TOP (07:55)
[2018-03-19] MEDS: HEPARIN 1,000 UNITS/ML 10ML VIAL (FOR RADIOLOGY& DIALYSIS ONLY) IV (13:16)
[2018-03-19 14:02] LABS: BEDSIDE GLUCOSE 100 MG/DL (83-110)
[2018-03-19 17:04] LABS: BEDSIDE GLUCOSE 184 MG/DL (83-110)
[2018-03-19] MEDS: WARFARIN SOD 2.5 MG TAB PO (17:20)
[2018-03-19] MEDS: WARFARIN SOD 3 MG TAB PO (17:20)
[2018-03-19] MEDS ORDERED: LACTOBACILLUS ACIDOPHILUS CAP (BACID) PO (18:45)
[2018-03-19] MEDS: DICLOXACILLIN 250 MG CAP PO (20:22)
[2018-03-19] MEDS: ATORVASTATIN 20 MG TAB PO (20:22)
[2018-03-19] MEDS: LATANOPROST 0.005% OPHTH SOLN 2.5 ML OU (20:24)
[2018-03-19 21:45] LABS: BEDSIDE GLUCOSE 172 MG/DL (83-110)
[2018-03-19] MEDS: LEVEMIR (INSULIN DETEMIR) 1 UNITS/0.01ML SC (21:47)
[2018-03-20] MEDS: DICLOXACILLIN 250 MG CAP PO ×2 (00:50→05:28)
[2018-03-20 05:17] LABS: BEDSIDE GLUCOSE 114 MG/DL (83-110)
[2018-03-20] MEDS: SANTYL OINT 30GM TOP (09:00)
[2018-03-20] MEDS: NEPHRO-VIT TAB (NEPHROCAPS) PO (09:00)
[2018-03-20] MEDS: SENOKOT S TAB PO (09:00)
[2018-03-20] MEDS: LACTIC ACID 12% LOTION 225 GM BTL TOP (09:00)
[2018-03-20] MEDS: (RENVELA) SEVELAMER **CARBONate** 800 MG TAB PO (09:26)
[2018-03-20] MEDS: CYANOCOBALAMIN 500 MCG TAB PO (09:27)
[2018-03-20] MEDS: ASPIRIN 81 MG ENTERIC TAB PO (09:27)
[2018-03-20] MEDS: METOPROLOL TART 25 MG TABLET PO (09:30)
[2018-03-20] MEDS: VITAMIN D 1,000 INTERNATIONAL UNITS TABLET PO (09:31)
[2018-03-20] MEDS: MIDODRINE 5 MG TAB PO (09:31)
[2018-03-20] MEDS: LACTOBACILLUS ACIDOPHILUS CAP (BACID) PO (09:31)
[2018-03-20] MEDS: GABAPENTIN 100 MG CAP PO (09:31)
[2018-03-20] MEDS: HumaLOG INSULIN (NovoLOG) PER UNIT SC (09:41)
[2018-03-20 09:50] LABS: BASO % 0.6 % (0.0-1.0); EOS % 2.7 % (0.0-3.0); HEMATOCRIT 35.5 % (42.0-52.0); HEMOGLOBIN 11.2 g/dl (13.5-17.5); IMMATURE GRANULOCYTE % 0.3 % (0-3.0); LYMPH # 1.3 10^3/uL (1.5-4.5); LYMPH % 19.5 % (24.0-44.0); MEAN CORPUSCULAR HEMOGLOBIN 30.9 pg (27.0-33.0); MEAN CORPUSCULAR HGB CONC 31.5 g/dl (32.0-36.5); MEAN CORPUSCULAR VOLUME 97.8 fl (80.0-96.0); MONO % 13.5 % (0.0-5.0); NEUTROPHILS # 4.2 10^3/uL (1.8-7.7); NEUTROPHILS % 63.4 % (36.0-66.0); PLATELET COUNT, AUTOMATED 183 10^3/uL (150-450); RED BLOOD COUNT 3.63 10^6/uL (4.30-6.10); RED CELL DISTRIBUTION WIDTH 18.6 % (11.5-14.5); WHITE BLOOD COUNT 6.7 10^3/uL (4.0-10.0)
[2018-03-20 09:51] LABS: EOS # 0.2 10^3/uL (0.0-0.50); MONO # 0.9 10^3/uL (0.0-0.8)
[2018-03-20 10:12] LABS: ERYTHROCYTE SEDIMENTATION RATE 58 mm/hr (0-20)
[2018-03-20 10:15] LABS: ANION GAP 8 MEQ/L (8-16); BLOOD UREA NITROGEN 28 MG/DL (7-18); C REACTIVE PROTEIN QUANTITATIV 7.13 MG/DL (0.00-0.30); CALCIUM LEVEL 9.1 MG/DL (8.8-10.2); CARBON DIOXIDE LEVEL 27 MEQ/L (21-32); CHLORIDE LEVEL 100 MEQ/L (98-107); CREATININE FOR GFR 6.24 MG/DL (0.70-1.30); GLOMERULAR FILTRATION RATE 11.5 (>42); GLUCOSE, FASTING 121 MG/DL (70-100); POTASSIUM SERUM 4.4 MEQ/L (3.5-5.1); SODIUM LEVEL 135 MEQ/L (136-145)
== END 2018-03-20 11:40 | disposition home health service (06) | DRG 617 ==
LOC: M MSPAV 01-29 00:55 → M ED 14:41 → M ED INP 19:43
PROC: 0Y6Q0Z0 Detachment at Left 1st Toe, Complete, Open Approach (ICD-10-PCS; principal; 2018-01-28 17:00)
PROC: 0Y6S0Z0 Detachment at Left 2nd Toe, Complete, Open Approach (ICD-10-PCS; 2018-01-28 17:00)
PROC: 0Y6U0Z0 Detachment at Left 3rd Toe, Complete, Open Approach (ICD-10-PCS; 2018-01-28 17:00)
PROC: 0LDW0ZZ Extraction of Left Foot Tendon, Open Approach (ICD-10-PCS; 2018-01-28 17:00)
PROC: 5A1D70Z Performance of Urinary Filtration, Intermittent, Less than 6 Hours Per Day (ICD-10-PCS; 2018-01-28 23:20)
PROC: 0Y6N0Z8 Detachment at Left Foot, Complete 5th Ray, Open Approach (ICD-10-PCS; 2018-01-28 23:20)
PROC: 30233N1 Transfusion of Nonautologous Red Blood Cells into Peripheral Vein, Percutaneous Approach (ICD-10-PCS; 2018-01-28 23:20)
DX: E11.69 Type 2 diabetes mellitus with other specified complication (principal); I12.0 Hypertensive chronic kidney disease with stage 5 chronic kidney disease or end stage renal disease; M86.672 Other chronic osteomyelitis, left ankle and foot; E11.52 Type 2 diabetes mellitus with diabetic peripheral angiopathy with gangrene; D62 Acute posthemorrhagic anemia; E11.22 Type 2 diabetes mellitus with diabetic chronic kidney disease; E11.621 Type 2 diabetes mellitus with foot ulcer; N18.6 End stage renal disease; G47.33 Obstructive sleep apnea (adult) (pediatric); E78.5 Hyperlipidemia, unspecified; D63.1 Anemia in chronic kidney disease; L97.529 Non-pressure chronic ulcer of other part of left foot with unspecified severity; I48.2 Chronic atrial fibrillation; E11.40 Type 2 diabetes mellitus with diabetic neuropathy, unspecified; K59.00 Constipation, unspecified; M10.30 Gout due to renal impairment, unspecified site; N25.81 Secondary hyperparathyroidism of renal origin; I71.2 Thoracic aortic aneurysm, without rupture; Z95.0 Presence of cardiac pacemaker; Z99.2 Dependence on renal dialysis; Z79.01 Long term (current) use of anticoagulants; Z87.891 Personal history of nicotine dependence; Z79.82 Long term (current) use of aspirin; Z79.899 Other long term (current) drug therapy; I95.89 Other hypotension

== ENCOUNTER → 2018-04-30 | Outpatient (CLI) | payer MEDICARE, MEDICAID | LOC: M SMT 11:30 | DX: M16.11 Unilateral primary osteoarthritis, right hip (principal); M25.551 Pain in right hip | CPT/HCPCS: 73502 ==

== ENCOUNTER → 2018-05-25 | Outpatient (CLI) | payer MEDICARE, MEDICAID ==
[~2018-05-25] MED LIST changes: +/ATOR40TA PO; +/INSU7030; +/METO25TAB PO; +/NEPHROTA PO; +/NITR4TASL SL; +/WARF5TA; +ADV250INH INH; +ALBU0.5N INH; +ALBU17IN INH; +ALDA25TA2; +ALLO100T PO; +ALLO300T2 PO; +ALPH0.1S XX; +AMLO10TA; +APIDINJ SC; +ASPI1TAB PO; +ASPI81CH PO; +ASPI81TA83 PO; +ATOR1TAB21 PO; +ATOR40TA75 PO; +BACI1CAP PO; +BACI500O8 TOP; +BISO10TA2; +BISO10TA6 PO; +CALC1CAP PO; +CAPT12.5; +CAPT12.5 PO; +CATA0.1T; +CINA30TA PO; +CLAR1TAB2 PO; +COLC1TAB14 PO; +COUM1TAB17 PO; +COUM7.5T; +COUMADIN; +DEMA20TA; +DICL500C PO; +DOCU10ELUD PO; +FEBU40TA PO; +FLEXERIL; +FLOM0.4C39; +FLOM0.4C39 PO; +FLUTISP; +GABA-1171; +GABA-1171 PO; +GLUC500T; +HYDR1CRE89 TOP; +INSUDET SC; +INSUH10VL SC; +INSULANT SC; +INSULIN LANTUS; -ISOVUE-300 61% 50ML VIAL (Q9967) As Ordered; +LANO0.1211; +LEVA250T13 PO; +LEVO250T12 PO; +LOTE0.5S OD; +METO-346; +METO1TAB87 PO; +METO50TA7 PO; -MIDAZOLAM INJ 2 MG/2 ML VIAL (J2250) As Ordered; +MIDO5TA PO; +MIRA255PW PO; +MYCO500T; +MYCO500T PO; +NEPHTAB PO; +NEUR100C; +NITR4TASL SL; +NORV5TAB; +NOVOINJ3 SC; +NOVOLOG SC; +PANT40TA3 PO; +PRED10TA2 PO; +PRED1SUS OD; +PROT20TA11 PO; +PROV90AE INH; +RENATAB5 PO; +RENV2TAB PO; +SENO8.6T9 PO; +SEVE800T3 PO; +TAMS0.4C PO; +TORS100T12 PO; +TRAM50TA2; +TYLE325T5 PO; +ULOR80TA PO; +VENTAER INH; +VICO5TAB PO; +VITA10002; +VITA100066 PO; +VITA500T3 PO; +WARF-23; +WARF-60 PO; +WARF2TAB44 PO; +WARF4TAB28 PO; +WARF4TAB52 PO; +XALA0.007 OU; +ZETI10TA21 PO; +[UNRECOGNIZED DRUG - CODE] EXT; -fentaNYL 100 MCG/2 ML INJECTION (J3010) As Ordered
--- NOTE | 2018-05-25 14:12 | REP ---
CT CHEST WITHOUT IV CONTRAST: CT chest performed without IV contrast. COMPARISON: 05/12/2016 Lungs show scattered linear fibrotic changes bilaterally appearing similar to the prior study. There is mild bronchiectasis in the left lower lobe peripherally. The heart is mildly enlarged. Root of the aorta measures about 5.2 cm in AP dimension essentially unchanged since the prior study. Superior aspect of the ascending thoracic aorta measures about 4.7 cm in diameter, unchanged. Aortic arch tapers to 3.4 cm and the descending thoracic aorta measures approximately the same diameter, unchanged. Aortic arch tapers to 3.4 cm and the descending thoracic aorta measures approximately the same diameter, stable. There are mild atherosclerotic calcifications diffusely of the thoracic aorta. There is a small amount of pericardial fluid or thickening. A slightly prominent right pericardial lymph node is stable. There is bilateral gynecomastia. There is no other definite evidence of adenopathy. There is a calcified pleural plaque along the right diaphragm. Small calcified granuloma is seen in the left upper lobe posteriorly. IMPRESSION: Stable dilatation of the thoracic aorta. Mild cardiomegaly. Tiny amount of pericardial fluid or thickening. Slightly prominent right pericardial lymph node is stable. Fibrotic scarring in both lungs is unchanged. Electronically Signed by Sam Sharif MD 05/25/2018 04:23 P
== END ==
LOC: M RAD 10:25
PROVIDERS: ATTEND Thoracic Surgery (Cardiothoracic Vascular Surgery)
DX: I71.2 Thoracic aortic aneurysm, without rupture (principal)

== ENCOUNTER → 2018-07-20 | Outpatient (CLI) | payer MEDICARE ==
[~2018-07-20] MED LIST changes: +CEPH500C PO; +SANT250O8 TOP
--- NOTE | 2018-07-20 08:56 | REP ---
Abdominal aorta ultrasound: Comparison is 10/12/2014. Abdominal Aortic Measurements are as follows: Proximal 2.4 cm AP 2.7 cm TRV Renal Artery Level 1.9 cm AP 2.0 cm TRV Mid Aorta 2.6 cm AP 2.5 cm TRV Distal Aorta 2.2 cm AP 2.3 cm TRV R Iliac Artery 1.4 cm AP 1.3 cm TRV L Iliac Artery 1.5 cm AP 1.4 cm TRV There is no evidence of abdominal aortic aneurysm. Electronically Signed by Sam Luis MD 07/20/2018 08:48 A
== END ==
LOC: M RAD 06:51
PROVIDERS: ATTEND Student in an Organized Health Care Education/Training Program
DX: I71.4 Abdominal aortic aneurysm, without rupture (principal)

== ENCOUNTER 2018-07-22 14:28 | Inpatient (IN) | payer MEDICARE, MEDICAID ==
[~2018-07-22] VITALS: Ht 188 cm; Wt 131.7 kg
[~2018-07-22 14:28] MED LIST changes: -CEPH500C PO; -SANT250O8 TOP
[2018-07-22 17:00] VITALS: BP 133/77
[2018-07-22 17:33] LABS: BASO # 0.1 10^3/uL (0.0-0.2); BASO % 0.6 % (0.0-1.0); EOS # 0.2 10^3/uL (0.0-0.50); EOS % 2.4 % (0.0-3.0); HEMOGLOBIN 9.9 g/dl (13.5-17.5); LYMPH # 1.3 10^3/uL (1.5-4.5); LYMPH % 15.2 % (24.0-44.0); MEAN CORPUSCULAR HGB CONC 30.9 g/dl (32.0-36.5); MEAN CORPUSCULAR VOLUME 103.6 fl (80.0-96.0); MONO # 1.2 10^3/uL (0.0-0.8); MONO % 13.3 % (0.0-5.0); NEUTROPHILS # 5.8 10^3/uL (1.8-7.7); NEUTROPHILS % 67.8 % (36.0-66.0); PLATELET COUNT, AUTOMATED 155 10^3/uL (150-450); RED BLOOD COUNT 3.09 10^6/uL (4.30-6.10); WHITE BLOOD COUNT 8.6 10^3/uL (4.0-10.0)
[2018-07-22 17:37] LABS: INR 2.19; PROTHROMBIN TIME 24.8 SECONDS (12.1-14.4)
[2018-07-22] MEDS ORDERED: BACI1CAP PO (17:44)
[2018-07-22] MEDS ORDERED: SANT250O8 TOP (17:47)
[2018-07-22] MEDS ORDERED: CEPH500C PO (17:47)
[2018-07-22] MEDS ORDERED: COUM1TAB17 PO (17:53)
[2018-07-22] MEDS ORDERED: BISACODYL 5 MG TAB PO PRN (18:00)
[2018-07-22 18:09] LABS: BILIRUBIN,TOTAL 0.9 MG/DL (0.2-1.0); CREATININE FOR GFR 6.46 MG/DL (0.70-1.30); POTASSIUM SERUM 4.8 MEQ/L (3.5-5.1)
[2018-07-22] MEDS: PIPERACILLIN/TAZOBACTAM SOD 2.25 GM in D5W MINI-BAG PLUS 50 ML IV SCH (18:09)
[2018-07-22] MEDS ORDERED: ALBUTEROL 90 MCG/ACT 8GM HFA INHALER INH PRN (18:15)
[2018-07-22] MEDS ORDERED: NITROGLYCERIN 0.4 MG SUBL TABLET SL PRN (18:15)
[2018-07-22] MEDS ORDERED: DEXTROSE 50% 50 ML SYRINGE IV PRN (18:30)
[2018-07-22] MEDS ORDERED: GLUCOSE 4 GM CHEW TABLET PO PRN (18:30)
[2018-07-22] MEDS ORDERED: GLUCAGON FOR INJ 1 MG VIAL (J1610) SC PRN (18:30)
--- NOTE | 2018-07-22 18:53 | HPE ---
DATE OF ADMISSION: 07/22/2018 HISTORY OF PRESENT ILLNESS: Patient is a 73-year-old male with a past history of insulin-dependent diabetes, who presents from the podiatry office after being seen by Dr. Jackson for his chronic diabetic foot ulcers. Patient says he has been dealing with this since October. Dr. Jackson wanted to admit the patient to the hospital for some intravenous (IV) antibiotics and then bring him to the operating room (OR) for a debridement tomorrow. Patient is otherwise feeling well today. Patient does have some chronic shortness of breath, which he says has been going on for a long time. Patient denies having any other symptoms. Patient says he does not have a lot of feeling in the foot, and the foot does not really bother him as much. Patient says he does not get up and walk around a lot. PAST MEDICAL HISTORY: 1. Insulin-dependent diabetes. 2. End-stage renal disease, on dialysis Thursday, Thursday, Thursday. 3. Obstructive sleep apnea with continuous positive airway pressure (CPAP). 4. Hyperlipidemia. 5. Hypertension. 6. Atrial fibrillation. 7. 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 8. Thoracic aortic aneurysm. PAST SURGICAL HISTORY: 1. Pacemaker placement. 2. Arteriovenous (AV) graft for dialysis. 3. Hernia repair. ALLERGIES: No known drug allergies. FAMILY HISTORY: Family history of heart disease. MEDICATIONS: Aspirin, cephalexin, collagenase, NovoLog, Levemir, Coumadin, Ventolin, Lipitor, vitamin D, vitamin B12, gabapentin, metoprolol tartrate, midodrine, nitroglycerine, vitamin B complex. SOCIAL HISTORY: Patient was a former smoker. Quit many years ago. He does not drink any alcohol and denies illicit drug use. He lives at home. REVIEW OF SYSTEMS: GENERAL: Patient denies fevers or chills. HEENT: Patient denies headaches, changes in vision or hearing. CARDIOVASCULAR: Patient denies chest pain. RESPIRATORY: Patient endorses some slight shortness of breath, which is chronic in nature, as described above in history of present illness (HPI). ABDOMEN: Patient denies abdominal pain, nausea, vomiting. Patient says he does have some constipation. GENITOURINARY: Patient denies any pain with urination. EXTREMITIES: Patient denies having any swelling or pain in the extremities. He says he has occasional pain when he hits the wound on something or leans up against it. NEUROLOGIC: Patient does endorse diabetic neuropathy in his feet. SKIN: Patient denies any rashes. LYMPHATIC: Patient denies any lumps or bumps in his neck, axilla, or groin. PHYSICAL EXAMINATION: VITAL SIGNS: Temperature 97.4, pulse 73, respirations 18, blood pressure 133/77, oxygen saturation 95% on room air. GENERAL: Patient is an obese, elderly male who was lying in bed when I walked in. Patient was in no acute distress. HEENT: Normocephalic, atraumatic. Anicteric sclerae. Moist mucous membranes. Patient did have a clouding over the right cornea. NECK: Supple. No lymphadenopathy. HEART: Regular rate and rhythm with no murmurs. LUNGS: Clear to auscultation bilaterally. ABDOMEN: Obese, soft, slight tenderness to the right lower quadrant. No rebound. EXTREMITIES: The wound on the left lower extremity was on the posterior side of the ankle. The calcaneal tendon was exposed. The surrounding edges of the wound did not appear necrotic, and the surrounding area was not erythematous or warm to the touch. The wound where the amputation of the toes was on the left foot was healed nicely. Pulses were diminished in the lower extremities bilaterally. Pulses 2/4 at the radial bilaterally. NEUROLOGIC: Cranial nerves II-XII intact. Patient had 5/5 strength. Patient reports good sensation in the upper and lower extremities to gross touch. LABORATORY DATA: A CBC shows white blood cells of 8.6, hemoglobin 9.9, hematocrit 32.0, platelet count 155. A CMP shows sodium 141, potassium 4.8, chloride 104, bicarbonate 28, BUN 43, creatinine 6.46, glucose 76, calcium 7.0. Bilirubin 0.9, AST 32, ALT 37, alkaline phosphatase 186, total protein 7, albumin 3.0. A PT was 24.8 and INR was 2.19. ASSESSMENT AND PLAN: Patient is a 73-year-old male with a chronic diabetic foot wound on the posterior aspect of the left ankle, which will be debrided tomorrow by Dr. Jackson. 1. Chronic wound on the posterior aspect of the ankle. This is most likely secondary to patient's diabetes. It has been there for awhile. It is being cared for outpatient by Dr. Jackson. Dr. Jackson sent the patient in to the hospital for debridement and IV antibiotics. IV Zosyn has been started at a hemodialysis dose of 2.25 grams every 12 hours. We will continue to monitor the patient. 2. End-stage renal disease, on dialysis. Patient is on a Thursday, Thursday, Thursday dialysis schedule. Dr. Winter Alvarez of nephrology has been contacted and consulted for the patient. Dr. Jackson would like him to get his regularly scheduled dialysis tomorrow early in the morning so it will not interfere with the OR time, so that the debridement will be able to be done tomorrow afternoon. Dr. Alvarez is aware of this and has agreed to this. She has agreed to the consultation, and we appreciate her input and help treating the patient. 3. Insulin-dependent diabetes. We will continue to monitor the patient with fingersticks and sliding scale. 4. Hypertension. We will continue the patient's home medications. 5. Atrial fibrillation. The patient is on Coumadin outpatient. We are holding this for his procedure and will restart afterward. 6. Hyperlipidemia. We will continue the patient's home medication. 7. Obstructive sleep apnea. Patient has a CPAP machine. PLAN: Admit the patient the medical/surgical [facility] and be seen by Dr. Jackson tomorrow. Patient will get his regular scheduled dialysis tomorrow. My faculty preceptor for this patient encounter was physically present during the encounter and was fully available. All aspects of the patient interview, examination, medical decision making process, and medical care plan development were reviewed and approved by the faculty preceptor. The faculty preceptor is aware and concurs with the plan as stated in the body of this note and will attest to such by his/her co-signature. I have both independently examined this patient as well as reviewed the H&P. I have discussed in detail with the resident the findings and plan of treatment as documented in the resident's note- Colleen MOSHER
[2018-07-22] MEDS: METOPROLOL TART 25 MG TABLET PO SCH (20:41)
[2018-07-22] MEDS: HumaLOG INSULIN (NovoLOG) PER UNIT SC SCH (21:00)
[2018-07-22 22:00] VITALS: BP 132/75
[2018-07-23] VITALS (7 sets, daily range): BP systolic 106–137; BP diastolic 54–76
[2018-07-23] MEDS: PIPERACILLIN/TAZOBACTAM SOD 2.25 GM in D5W MINI-BAG PLUS 50 ML IV SCH ×2 (05:51→20:26)
[2018-07-23 06:44] LABS: BASO # 0.1 10^3/uL (0.0-0.2); BASO % 0.7 % (0.0-1.0); EOS # 0.2 10^3/uL (0.0-0.50); EOS % 2.8 % (0.0-3.0); HEMATOCRIT 31.3 % (42.0-52.0); HEMOGLOBIN 9.9 g/dl (13.5-17.5); LYMPH # 1.2 10^3/uL (1.5-4.5); LYMPH % 15.3 % (24.0-44.0); MEAN CORPUSCULAR HEMOGLOBIN 31.5 pg (27.0-33.0); MEAN CORPUSCULAR HGB CONC 31.6 g/dl (32.0-36.5); MEAN CORPUSCULAR VOLUME 99.7 fl (80.0-96.0); MONO # 0.9 10^3/uL (0.0-0.8); MONO % 11.5 % (0.0-5.0); NEUTROPHILS # 5.2 10^3/uL (1.8-7.7); PLATELET COUNT, AUTOMATED 146 10^3/uL (150-450); RED BLOOD COUNT 3.14 10^6/uL (4.30-6.10); WHITE BLOOD COUNT 7.5 10^3/uL (4.0-10.0)
[2018-07-23 07:09] LABS: CREATININE FOR GFR 7.38 MG/DL (0.70-1.30); GLOMERULAR FILTRATION RATE 9.5 (>42); MAGNESIUM LEVEL 2.2 MG/DL (1.8-2.4); POTASSIUM SERUM 5.4 MEQ/L (3.5-5.1)
[2018-07-23] MEDS: HumaLOG INSULIN (NovoLOG) PER UNIT SC SCH ×4 (07:30→21:00)
[2018-07-23] MEDS: MIDODRINE 5 MG TAB PO SCH ×2 (08:00→16:00)
[2018-07-23] MEDS: VITAMIN D 1,000 INTERNATIONAL UNITS TABLET PO SCH (09:00)
[2018-07-23] MEDS: NEPHRO-VIT TAB (NEPHROCAPS) PO SCH (09:00)
[2018-07-23] MEDS: CYANOCOBALAMIN 500 MCG TAB PO SCH (09:00)
[2018-07-23] MEDS: METOPROLOL TART 25 MG TABLET PO SCH ×2 (09:00→21:19)
[2018-07-23] MEDS: GABAPENTIN 100 MG CAP PO SCH (12:00)
[2018-07-23] MEDS: ATORVASTATIN 20 MG TAB PO SCH (12:00)
--- NOTE | 2018-07-23 12:51 | IPNPDOC ---
Text Note Date of Service The patient was seen on 07/23/18. NOTE Subjective: Patient is a 73-year-old male who presented to the hospital on 07/22/2018 as a direct admit from podiatry for able posterior ankle ulcer on the left side. Patient was seen in dialysis today. Patient says he was doing well. He did not have any complaints today. He does not have any chest pain nor any difficulty breathing. He said he did have a bowel movement earlier today. Review of systems General: Patient denies fevers HEENT: Patient denies headaches Cardiovascular: Patient denies chest pain Respiratory: Patient denies shortness of breath, cough GI: Patient denies abdominal pain, nausea, vomiting, diarrhea : Patient denies pain or difficulty with urination Neurological: Patient denies numbness or tingling in extremities Extremities: Patient denies swelling or pain in extremities Objective: Vitals: (see below) General: No acute distress, laying comfortably in bed. HEENT: Normocephalic, atraumatic, moist mucous membranes. Neck: No JVD or lymphadenopathy Cardiac: RRR, No murmurs Pulm: Clear to auscultation b/l. No wheezing, rhonchi Abd: NT/ND + BS Ext: Trace pitting edema bilaterally. The left foot post ankle wound with bandaged clean, dry, intact. Distal pulses intact. Dorsalis pedis and posterior tibial pulses were diminished bilaterally Labs (see below) Images: Foot x-ray of the left foot is pending Assessment/Plan 1. Chronic wound on posterior aspect of the ankle. Dr. Jackson will be taking the patient to the operating room later today. Patient is receiving IV Zosyn 2.25 g every 12 hours. 2. End-stage renal disease on dialysis. Patient is on a Thursday schedule. Patient is getting dialysis today. 3. Insulin dependent diabetes. We will continue to monitor patient 4. Hypertension. We will continue the patient's home medications. 5. Atrial fibrillation. Patient is on Coumadin for anticoagulation. We are holdi ng this for the procedure and will restart afterwards. 6. Hyperlipidemia. We will continue patient's home medication. 7. Obstructive sleep apnea. Patient is on a CPAP machine and I asked him to have his bring in his machine from home. DVT prophy: Coumadin will be restarted after procedure. Dispo: Pending clinical improvement VS,Fishbone, I+O VS, Fishbone, I+O Laboratory Tests 07/22/18 17:10 Red Blood Count 3.09 L, Mean Corpuscular Volume 103.6 H, Mean Corpuscular Hemoglobin 32.0, Mean Corpuscular Hemoglobin Concent 30.9 L, Red Cell Distributi on Width 18.6 H, Neutrophils (%) (Auto) 67.8 H, Lymphocytes (%) (Auto) 15.2 L, Monocytes (%) (Auto) 13.3 H, Eosinophils (%) (Auto) 2.4, Basophils (%) (Auto) 0.6, Neutrophils # (Auto) 5.8, Lymphocytes # (Auto) 1.3 L, Monocytes # (Auto) 1.2 H, Eosinophils # (Auto) 0.2, Basophils # (Auto) 0.1, Calcium Level 7.0 L, Aspartate Amino Transf (AST/SGOT) 32, Alanine Aminotransferase (ALT/SGPT) 37, Alkaline Phosphatase 186 H, Total Bilirubin 0.9, Total Protein 7.0, Albumin 3.0 L 07/23/18 06:29 Red Blood Count 3.14 L, Mean Corpuscular Volume 99.7 H, Mean Corpuscular Hemoglobin 31.5, Mean Corpuscular Hemoglobin Concent 31.6 L, Red Cell Distribution Width 18.6 H, Neutrophils (%) (Auto) 69.0 H, Lymphocytes (%) (Auto) 15.3 L, Monocytes (%) (Auto) 11.5 H, Eosinophils (%) (Auto) 2.8, Basophils (%) (Auto) 0.7, Neutrophils # (Auto) 5.2, Lymphocytes # (Auto) 1.2 L, Monocytes # (Auto) 0.9 H, Eosinophils # (Auto) 0.2, Basophils # (Auto) 0.1, Calcium Level 7.0 L Vital Signs Date Time Temp Pulse Resp B/P (MAP) Pulse Ox O2 Delivery O2 Flow Rate FiO2 07/23/18 06:00 96.8 74 19 137/76 (96) 98 I&O- Last 24 Hours up to 6 AM 07/23/18 06:00 Intake Total 1320 ml Output Total 850 ml Balance 470 ml GME ATTESTATION GME ATTESTATION My faculty preceptor for this patient encounter was physically present during the encounter and was fully available. All aspects of the patient interview, e xamination, medical decision making process, and medical care plan development were reviewed and approved by the faculty preceptor. The faculty preceptor is aware and concurs with the plan as stated in the body of this note and will attest to such by his/her cosignature. JEN CUEVA DO Jul 23, 2018 12:51 SILVIA BURCIAGA MD Aug 01, 2018 13:25
--- NOTE | 2018-07-23 14:19 | REP ---
LEFT FOOT SERIES: Four views. HISTORY: Ulcer. FINDINGS: The patient is status post transmetatarsal amputation of all five digits in the interval since the January 28, 2018 prior study. No soft tissue gas is seen. Vascular calcification is noted. Mild plantar calcaneal spurring is noted. There is soft tissue irregularity at the dorsal aspect of the resection stump of the forefoot. This may reflect the ulcer. IMPRESSION: Status post transmetatarsal osteotomy. No acute bony erosive change. Vascular calcification seen. Electronically Signed by Wing Bowman MD 07/23/2018 06:47 P
[2018-07-23 14:20] LABS: ERYTHROCYTE SEDIMENTATION RATE 53 mm/hr (0-20)
[2018-07-23] MEDS ORDERED: BUPIVACAINE HCL 0.5% 10 ML VIAL As Ordered ONE (16:10)
[2018-07-23] MEDS ORDERED: LIDOCAINE 1% MDV 20ML VIAL As Ordered ONE ×2 (16:10→17:34)
[2018-07-23] MEDS ORDERED: PROPOFOL 200 MG/20 ML VIAL As Ordered ONE (16:45)
[2018-07-23] MEDS ORDERED: LIDOCAINE 2% INJ 100 MG/5 ML SDV (FOR ANES.) As Ordered ONE (16:45)
[2018-07-23] MEDS ORDERED: fentaNYL 100 MCG/2 ML INJECTION (J3010) As Ordered ONE (16:45)
[2018-07-23] MEDS ORDERED: MIDAZOLAM INJ 2 MG/2 ML VIAL (J2250) As Ordered ONE (16:45)
[2018-07-23] MEDS ORDERED: PROPOFOL 500 MG/50 ML VIAL As Ordered ONE (16:48)
--- NOTE | 2018-07-23 17:17 | CR ---
DATE OF CONSULTATION: 07/23/2018 Patient seen and examined preoperatively. Denies any new complaints since seen in office yesterday. He is ready for the operating room. He is seen for left leg ulceration which was worsened when noted in my office. He has been unable to adequately care for this at home. His grandson and home health have been doing the dressing changes. PAST MEDICAL HISTORY: Significant for insulin dependent diabetes. End-stage renal disease, on dialysis Thursday, Thursday, Thursday. Obstructive sleep apnea, on CPAP. Hyperlipidemia. Hypertension. Atrial fibrillation, on Coumadin. Tachycardia and bradycardia with pacemaker. Thoracic aortic aneurysm. PAST SURGICAL HISTORY: Include: Pacemaker. Arteriovenous (AV) fistula. Hernia. Left transmetatarsal amputation. ALLERGIES: None. FAMILY HISTORY: Noncontributory. SOCIAL HISTORY: Former smoker. REVIEW OF SYSTEMS: Denies fever or chills. VITALS: Are reviewed. He has remained afebrile. LABS: Are reviewed. WBC 7.5, hemoglobin is 9.9. INR was 2.19. Erythrocyte sedimentation rate is 53, CRP is 5. Blood cultures are pending. X-rays showed no soft tissue gas in the area of posterior wound. ASSESSMENT: 73-year-old male with left posterior heel and Achilles wound with exposed tendon, cellulitis. PLAN: Will bring to operating room now for incision and drainage. He will require off-loading and wound care while in hospital.
[2018-07-23] MEDS ORDERED: PHENYLephrine HCL 500 MCG/5 ML (100MCG/ML) SYRINGE (J2370) As Ordered ONE (17:27)
[2018-07-23] MEDS ORDERED: NORCO, ANEXSIA 5/325MG TABLET (HYDROcodone/ACETAMINOPHEN) PO PRN (18:45)
[2018-07-23] MEDS ORDERED: NS 1,000 ML IV SCH (18:45)
[2018-07-23] MEDS ORDERED: ONDANSETRON 4MG/2ML VIAL (J2405) IV PRN (18:45)
[2018-07-23] MEDS ORDERED: PERCOCET 5MG/325MG TAB PO PRN (19:00)
[2018-07-23] MEDS: ACETAMINOPHEN TAB 650MG DOSE (2X325MG) PO PRN (21:20)
[2018-07-24 02:00] VITALS: BP 123/70
[2018-07-24] MEDS: PIPERACILLIN/TAZOBACTAM SOD 2.25 GM in D5W MINI-BAG PLUS 50 ML IV SCH ×2 (05:30→16:57)
[2018-07-24 06:00] VITALS: BP 118/75
[2018-07-24 06:35] LABS: BASO % 0.5 % (0.0-1.0); EOS # 0.2 10^3/uL (0.0-0.50); EOS % 2.1 % (0.0-3.0); HEMATOCRIT 31.8 % (42.0-52.0); HEMOGLOBIN 9.8 g/dl (13.5-17.5); MEAN CORPUSCULAR HEMOGLOBIN 31.6 pg (27.0-33.0); MEAN CORPUSCULAR HGB CONC 30.8 g/dl (32.0-36.5); MEAN CORPUSCULAR VOLUME 102.6 fl (80.0-96.0); MONO % 12.3 % (0.0-5.0); NEUTROPHILS # 5.7 10^3/uL (1.8-7.7); NEUTROPHILS % 71.3 % (36.0-66.0); PLATELET COUNT, AUTOMATED 160 10^3/uL (150-450)
[2018-07-24 06:49] LABS: INR 2.17; PROTHROMBIN TIME 24.6 SECONDS (12.1-14.4)
[2018-07-24 07:00] LABS: CALCIUM LEVEL 7.2 MG/DL (8.8-10.2); CREATININE FOR GFR 5.48 MG/DL (0.70-1.30); GLOMERULAR FILTRATION RATE 13.3 (>42); MAGNESIUM LEVEL 2.2 MG/DL (1.8-2.4); POTASSIUM SERUM 4.8 MEQ/L (3.5-5.1)
--- NOTE | 2018-07-24 07:56 | CR ---
DATE OF CONSULTATION: 07/23/2018 REQUESTING PHYSICIAN: Dr. Allan White. REASON FOR CONSULTATION: Management of endstage renal disease on hemodialysis. HISTORY OF PRESENT ILLNESS: The patient is a 73-year-old male well known to me with a past medical history of endstage renal disease on hemodialysis on a Thursday, Thursday, Thursday maintenance schedule via right upper extremity fistula, insulin dependent diabetes, obstructive sleep apnea (ELISSA) with CPAP, dyslipidemia, hypertension, atrial fibrillation, hypertension, history of right eye blindness. Patient is being admitted for podiatric intervention for his chronic diabetes foot ulcers and plan is for debridement in the OR. PAST MEDICAL HISTORY: As mentioned above and also includes tachycardia and bradycardia syndrome that required pacemaker and history of thoracic aortic aneurysm. PAST SURGICAL HISTORY: Pacemaker placement. AV fistula. Hernia repair. ALLERGIES: No known drug allergies. FAMILY HISTORY: Heart disease. HOME MEDICATIONS: Reviewed. Include: - aspirin - cephalexin - NovoLog - Levemir - Coumadin - Ventolin - Lipitor - vitamin D - gabapentin - metoprolol - midodrine - nitroglycerine - vitamin B complex - gabapentin - Renvela - CellCept REVIEW OF SYSTEMS: Constitutional: He denies fevers and chills. Eyes: He reports right eye blindness. Denies tearing. ENT: He denies rhinorrhea or dysphagia. Cardiac: He denies chest pain or palpitations. Has pacemaker. Respiratory: He denies shortness of breath or cough. Gastrointestinal: He denies nausea, vomiting, diarrhea. Genitourinary: He still makes urine. He denies dysuria, hematuria. Endocrine: He reports history of insulin dependent diabetes and secondary hyperparathyroidism. Musculoskeletal: He reports chronic foot ulcer and rheumatoid arthritis. Hematologic: He reports chronic anticoagulant use and anemia of renal failure. Psychiatric: He denies depression or mood disorder and he denies any new rashes or pruritus. Remainder review of systems is negative. VITAL SIGNS: Temperature 96.8, pulse 74, respiratory rate 19, blood pressure 137/76, saturating 98% on room air. Intake yesterday was recorded as 720. Dialysis today removed 4.5 liters. General: Patient is seen in the hemodialysis unit, awake, alert, oriented, receiving his maintenance treatment. No acute distress. His right eye is blind. Tongue is moist. Neck is supple. Jugular veins are not elevated. Heart sounds are regular rate and rhythm. There is no significant peripheral edema. Lungs are clear to auscultation bilaterally. No crackle, rale or wheeze. Abdomen is soft and obese. There is no tenderness. Extremities: The left foot is wrapped in some dressings. There is no significant peripheral edema. The right upper extremity fistula is patent and in use. Neurologic: Patient is oriented times three, interactive and conversational. No focal deficit in baseline mentation. LABS: White count 7.5, hemoglobin 9.9, platelets 146. Sodium 137, potassium 5.4. CRP 5. Blood cultures no growth for 24 hours times two sets. Foot x-ray 07/23/2018 showed status post transmetatarsal osteotomy with vascular calcifications. INPATIENT MEDICATIONS: - Patient is receiving renally dosed Zosyn. - Tylenol as needed. - albuterol as needed. - Lipitor 20 mg by mouth daily. - vitamin B12 1000 mcg by mouth daily. - gabapentin 100 mg by mouth daily. - insulin. - metoprolol 25 mg by mouth twice daily. - midodrine 5 mg by mouth twice daily - oxycodone as needed. - Nephrovite one tablet daily. PROBLEMS: 1. Endstage renal disease on hemodialysis on a Thursday, Thursday, Thursday maintenance schedule. Patient is being dialyzed today. His volume status is acceptable. Goal fluid removal is 4.5 liters which he is tolerating well. There is mild hyperkalemia on labs that will improve with dialysis. He is receiving a heparin free treatment in view of scheduling of the OR this afternoon. 2. Chronic foot ulcer likely diabetic. Patient is pending debridement with Dr. Jackson this afternoon. He is on renally dosed antibiotics. His blood cultures have been negative thus far. 3. Hypertension. Blood pressures are acceptable and he continues on his usual regimen. In view of atrial fibrillation, he is on a low dose beta-kajal and in view of hypotension, he is on midodrine. 4. Atrial fibrillation. Patient is rate controlled with beta-kajal and his anticoagulant Coumadin is on hold as he is for OR later today. Thank you for involving me in the care of Mr. Lobo. I will be happy to follow him along with you.
--- NOTE | 2018-07-24 09:02 | RO ---
DATE OF PROCEDURE: 07/22/2018 PREPROCEDURE DIAGNOSIS: Left leg ulceration and infection. POSTPROCEDURE DIAGNOSIS: Left leg ulceration and infection. PROCEDURE: Left leg incision and drainage and wound debridement. SURGEON: Sedrick Jackson DPM SALES WAREHOUSE DRIVER: None. ANESTHESIA: Monitored anesthesia care with preoperative injection of 10 mL of 1% lidocaine plain. COMPLICATIONS: None. CONDITION: Stable. Irwin Lobo is a pleasant 73-year-old male who has been under my treatment for left foot wound. Over the last month, he has developed a posterior calf and Achilles tendon wound and it has just progressively been worsening. He was treated initially with outpatient antibiotics without resolution. He has been admitted to the hospital for antibiotic treatments and further wound debridement and wound care. The patient's side and site were identified and marked in the preoperative holding area. Consent was reviewed and obtained. All risks, complications and alternatives to the procedure were explained to the patient in detail and all questions were answered. DESCRIPTION OF PROCEDURE: The patient was brought to the operating room and placed on the operating room table in supine position. Monitored anesthesia care was delivered by the anesthesia team. Preoperative injection of 10 mL of 1% lidocaine plain were injected proximal to the ulceration site. Patient was shifted into a lateral position. Ideally patient would have been prone for visualization, however, due to his breathing, he was unable to be placed in prone position. There is necrotic tissue noted more or less circumferentially surrounding the Achilles tendon. There was a sinus with necrotic tissue tracking proximally along the tendon. An incision was made extending from the proximal wound approximately 3 inches toward the gastrocnemius musculature and the most proximal of the tissue appeared healthy. Necrotic tissue was debrided with rongeur, curette and #15 blade. Site was then irrigated with pulse irrigation 3000 mL saline solution. Significant necrotic tissue was identified. Dressings were applied including Adaptic over the Achilles tendon, Telfa, gauze, Kerlix. Patient was brought to postanesthesia care unit with vital signs stable, neurovascular status intact. He will be readmitted to the floor for continued antibiotics and wound care. Will follow.
[2018-07-24 10:00] VITALS: BP 120/59
[2018-07-24] MEDS: CYANOCOBALAMIN 500 MCG TAB PO SCH (10:06)
[2018-07-24] MEDS: VITAMIN D 1,000 INTERNATIONAL UNITS TABLET PO SCH (10:06)
[2018-07-24] MEDS: METOPROLOL TART 25 MG TABLET PO SCH ×2 (10:07→21:51)
[2018-07-24] MEDS: LEVEMIR (INSULIN DETEMIR) 1 UNITS/0.01ML SC SCH (10:08)
[2018-07-24] MEDS: ASPIRIN 81 MG ENTERIC TAB PO SCH (10:08)
[2018-07-24] MEDS: MIDODRINE 5 MG TAB PO SCH ×2 (10:08→16:56)
[2018-07-24] MEDS: HumaLOG INSULIN (NovoLOG) PER UNIT SC SCH ×4 (10:18→21:43)
[2018-07-24] MEDS: NEPHRO-VIT TAB (NEPHROCAPS) PO SCH (10:18)
[2018-07-24] MEDS: ATORVASTATIN 20 MG TAB PO SCH (11:50)
[2018-07-24] MEDS: GABAPENTIN 100 MG CAP PO SCH (11:51)
[2018-07-24] MEDS ORDERED: diphenhydrAMINE 50 MG CAP PO ONE (12:00)
[2018-07-24 14:00] VITALS: BP 109/61
--- NOTE | 2018-07-24 15:17 | IPNPDOC ---
Text Note Date of Service The patient was seen on 07/24/18. NOTE Subjective: Patient is a 73-year-old male who presented to the hospital 3 days ago from podiatry office for direct admission. Patient was taken to the operating room yesterday. Patient did have a complaint of hives that appeared on his back that were slightly itchy. Patient says he deals with this off and on since he was a child. Patient usually takes some Benadryl only go away. Patient does not have any complaints today. Patient not having any difficulty eating and drinking. Patient is doing otherwise well. Review of systems General: Patient denies fevers HEENT: Patient denies headaches Cardiovascular: Patient denies chest pain Respiratory: Patient denies shortness of breath, cough GI: Patient denies abdominal pain, nausea, vomiting, diarrhea : Patient denies pain or difficulty with urination Neurological: Patient denies numbness or tingling in extremities Extremities: Minimal pain around the wound. Objective: Vitals: (see below) General: No acute distress, laying comfortably in bed. HEENT: Normocephalic, atraumatic, moist mucous membranes. Neck: No JVD or lymphadenopathy Cardiac: RRR, No murmurs Pulm: Clear to auscultation b/l. No wheezing, rhonchi Abd: NT/ND + BS Ext: Trace pitting edema in the right lower extremity. Left lower extremity was covered with surgical bandage. There is a small bleeding wound on the base of the fifth digit on the right foot. Labs (see below) Images: No new imaging has been performed. Assessment/Plan 1. Wound on the posterior aspect of the ankle. Dr. Jackson took the patient to the OR yesterday. Patient is on IV Zosyn. 2. End-stage renal disease on dialysis. Patient did get dialysis yesterday. We will continue to monitor and give him dialysis as long as he is in the hospital 3. Insulin-dependent diabetes. We will continue to monitor the patient. 4. Atrial fibrillation. Patient is on Coumadin which was restarted. Patient's INR was still therapeutic this morning. 5. Hypertension. We will continue patient's home medications. 6. Hyperlipidemia we will continue patient's home medication. 7. Obstructive sleep apnea. Patient is on CPAP machine. DVT prophy: Coumadin Dispo: Pending clinical improvement VS,Afsaneh Bazzi+O VS, Fishbone, I+O Laboratory Tests 07/24/18 06:03 Red Blood Count 3.10 L, Mean Corpuscular Volume 102.6 H, Mean Corpuscular Hemoglobin 31.6, Mean Corpuscular Hemoglobin Concent 30.8 L, Red Cell Distribution Width 18.6 H, Neutrophils (%) (Auto) 71.3 H, Lymphocytes (%) (Auto) 13.0 L, Monocytes (%) (Auto) 12.3 H, Eosinophils (%) (Auto) 2.1, Basophils (%) (Auto) 0.5, Neutrophils # (Auto) 5.7, Lymphocytes # (Auto) 1.0 L, Monocytes # (Auto) 1.0 H, Eosinophils # (Auto) 0.2, Basophils # (Auto) 0.0, Calcium Level 7.2 L Vital Signs Date Time Temp Pulse Resp B/P (MAP) Pulse Ox O2 Delivery O2 Flow Rate FiO2 07/24/18 10:07 73 120/60 07/24/18 10:00 97.7 18 96 I&O- Last 24 Hours up to 6 AM 07/24/18 06:00 Intake Total 1060 ml Output Total 4500 ml Balance -3440 ml GME ATTESTATION E ATTESTATION My faculty preceptor for this patient encounter was physically present during the encounter and was fully available. All aspects of the patient interview, examination, medical decision making process, and medical care plan development were reviewed and approved by the faculty preceptor. The faculty preceptor is aware and concurs with the plan as stated in the body of this note and will attest to such by his/her cosignature. ATTENDING NOTE I have both independently examined this patient as well as reviewed the note I have discussed in detail the findings and plan of treatment as documented in the note. I will continue to follow the patient and offer further guidance to the patients care as necessary during this hospital stay. JEN Rodriguez MD, DO Jul 24, 2018 15:17 ALMA MOORE MD Jul 25, 2018 07:07
[2018-07-24] MEDS: WARFARIN SOD 5 MG TAB PO SCH (16:56)
[2018-07-24 22:00] VITALS: BP 121/68
[2018-07-25 06:00] VITALS: BP 123/76
[2018-07-25] MEDS: PIPERACILLIN/TAZOBACTAM SOD 2.25 GM in D5W MINI-BAG PLUS 50 ML IV SCH ×2 (06:08→16:52)
[2018-07-25 06:45] LABS: BASO % 0.4 % (0.0-1.0); EOS # 0.3 10^3/uL (0.0-0.50); EOS % 3.2 % (0.0-3.0); HEMATOCRIT 31.6 % (42.0-52.0); HEMOGLOBIN 9.9 g/dl (13.5-17.5); LYMPH # 1.3 10^3/uL (1.5-4.5); LYMPH % 16.2 % (24.0-44.0); MEAN CORPUSCULAR HEMOGLOBIN 31.6 pg (27.0-33.0); MEAN CORPUSCULAR HGB CONC 31.3 g/dl (32.0-36.5); MONO # 0.9 10^3/uL (0.0-0.8); MONO % 10.5 % (0.0-5.0); NEUTROPHILS # 5.7 10^3/uL (1.8-7.7); NEUTROPHILS % 69.1 % (36.0-66.0); PLATELET COUNT, AUTOMATED 164 10^3/uL (150-450); RED BLOOD COUNT 3.13 10^6/uL (4.30-6.10); WHITE BLOOD COUNT 8.2 10^3/uL (4.0-10.0)
[2018-07-25 06:52] LABS: CALCIUM LEVEL 7.6 MG/DL (8.8-10.2); CREATININE FOR GFR 7.33 MG/DL (0.70-1.30); GLOMERULAR FILTRATION RATE 9.5 (>42); MAGNESIUM LEVEL 2.3 MG/DL (1.8-2.4); PHOSPHORUS LEVEL 4.8 MG/DL (2.5-4.9); POTASSIUM SERUM 4.9 MEQ/L (3.5-5.1)
[2018-07-25 06:58] LABS: PROTHROMBIN TIME 23.1 SECONDS (12.1-14.4)
[2018-07-25 08:09] LABS: C REACTIVE PROTEIN QUANTITATIV 5.31 MG/DL (0.00-0.30)
[2018-07-25] MEDS: HumaLOG INSULIN (NovoLOG) PER UNIT SC SCH ×4 (09:28→22:27)
[2018-07-25] MEDS: METOPROLOL TART 25 MG TABLET PO SCH ×2 (09:28→22:27)
[2018-07-25] MEDS: ASPIRIN 81 MG ENTERIC TAB PO SCH (09:28)
[2018-07-25] MEDS: NEPHRO-VIT TAB (NEPHROCAPS) PO SCH (09:28)
[2018-07-25] MEDS: MIDODRINE 5 MG TAB PO SCH ×2 (09:28→16:50)
[2018-07-25] MEDS: VITAMIN D 1,000 INTERNATIONAL UNITS TABLET PO SCH (09:28)
[2018-07-25] MEDS: CYANOCOBALAMIN 500 MCG TAB PO SCH (09:29)
[2018-07-25] MEDS: LACTOBACILLUS ACIDOPHILUS CAP (BACID) PO SCH ×3 (09:29→16:51)
[2018-07-25] MEDS: ATORVASTATIN 20 MG TAB PO SCH (12:16)
[2018-07-25] MEDS: GABAPENTIN 100 MG CAP PO SCH (12:16)
[2018-07-25 14:00] VITALS: BP 154/93
[2018-07-25] MEDS ORDERED: DARBEPOETIN 100 MCG/0.5 ML *DIALYSIS* SYRINGE (J0882) IV SCH (16:15)
[2018-07-25] MEDS: WARFARIN SOD 5 MG TAB PO SCH (16:50)
--- NOTE | 2018-07-25 18:11 | IPN ---
DATE: 07/25/2018 Patient seen and examined. Denies any chest pain, pressure, discomfort. Denies any fevers or chills. Comfortable. Denies any shortness of breath. VITAL SIGNS: Temperature 97.7, pulse 91, respirations 16, blood pressure 154/93, pulse oximetry 97% on room air. LABORATORY DATA: WBC 8.2, hemoglobin and hematocrit (H and H) 9.9 and 31.6, platelets 164. Chemistry: Sodium 135, potassium 4.9, chloride 99, bicarbonate 26, BUN 55, creatinine 7.33. PHYSICAL EXAMINATION: GENERAL: Patient alert, comfortable, in no acute distress. HEENT: Normocephalic, atraumatic. Moist mucous membranes. NECK: Supple. CARDIAC: Regular. S1, S2. PULMONARY: Bilateral clear. ABDOMEN: Soft, nontender. EXTREMITIES: Trace edema right lower extremity. Left lower extremity covered in AUTUMN bandage. Minimum bleeding. Patient's right foot, fifth digit, does not look erythematous. Dorsalis pedis (DP), posterior tibial (PT) pulses bilateral 1 plus to thready. ASSESSMENT AND PLAN: This is a 73-year-old male patient with underlying medical history of end-stage renal disease, insulin-dependent diabetes poorly controlled, obstructive sleep apnea with continuous positive airway pressure (C-PAP), hypertension, dyslipidemia, atrial fibrillation, tachycardia/bradycardia syndrome with pacemaker, thoracic aortic aneurysm, presented with chronic diabetic foot ulcer that is worsening, complicated with cellulitis. PROBLEMS: 1. Left posterior heel and Achilles tendon wound with cellulitis. Status post debridement by Dr. Jackson. Currently on Zosyn. Follow up cultures. As per Dr. Jackson, the wound is not deep to the bones. Follow up CRP. Follow up cultures. Adjust antibiotics as needed. Will need physical therapy, possibly need short-term rehabilitation. 2. End-stage renal disease. Dialysis as per nephrology. 3. Insulin-dependent diabetes. Continue current medication. Basal bolus insulin. 4. Atrial fibrillation. Patient on Coumadin that has been restarted. Monitor INR. Adjust as needed. Continue metoprolol. 5. Dyslipidemia. Continue statin. 6. Peripheral vascular disease. Continue aspirin and statin. Patient on Coumadin. Arterial ultrasound has been appreciated, shows evidence of severe stenosis. Will consult vascular surgery, Dr. Benjamin. 7. Obstructive sleep apnea. Encourage continuous positive airway pressure (C-PAP). 8. Obesity. Complicating care. 9. Thoracic aortic aneurysm. Outpatient followup. 10. Peripheral diabetic neuropathy. Continue current medication. 11. Deep venous thrombosis (DVT) prophylaxis. Patient on Coumadin with therapeutic INR. DISPOSITION: Further wound care as per Dr. Jackson. Follow up cultures. Follow up ultrasound arterial lower extremity. If shows evidence severe stenosis of peripheral vasculature, will consider consulting vascular. Pending clinical improvement. Possibly need short-term rehabilitation.
[2018-07-25 22:00] VITALS: BP 129/80
[2018-07-26] MEDS: PIPERACILLIN/TAZOBACTAM SOD 2.25 GM in D5W MINI-BAG PLUS 50 ML IV SCH ×2 (05:13→17:42)
[2018-07-26] MEDS: ASPIRIN 81 MG ENTERIC TAB PO SCH (05:13)
[2018-07-26] MEDS: CYANOCOBALAMIN 500 MCG TAB PO SCH (05:13)
[2018-07-26] MEDS: NEPHRO-VIT TAB (NEPHROCAPS) PO SCH (05:13)
[2018-07-26] MEDS: MIDODRINE 5 MG TAB PO SCH ×2 (05:14→17:41)
[2018-07-26] MEDS: LACTOBACILLUS ACIDOPHILUS CAP (BACID) PO SCH ×3 (05:14→17:41)
[2018-07-26] MEDS: VITAMIN D 1,000 INTERNATIONAL UNITS TABLET PO SCH (05:14)
[2018-07-26] MEDS: METOPROLOL TART 25 MG TABLET PO SCH ×2 (05:16→20:49)
[2018-07-26 06:00] VITALS: BP 117/61
[2018-07-26 07:07] LABS: BASO # 0.1 10^3/uL (0.0-0.2); BASO % 0.6 % (0.0-1.0); EOS # 0.3 10^3/uL (0.0-0.50); EOS % 3.3 % (0.0-3.0); HEMOGLOBIN 9.5 g/dl (13.5-17.5); LYMPH # 1.2 10^3/uL (1.5-4.5); LYMPH % 14.9 % (24.0-44.0); MEAN CORPUSCULAR HEMOGLOBIN 31.9 pg (27.0-33.0); MEAN CORPUSCULAR HGB CONC 31.7 g/dl (32.0-36.5); MEAN CORPUSCULAR VOLUME 100.7 fl (80.0-96.0); MONO # 1.1 10^3/uL (0.0-0.8); MONO % 13.4 % (0.0-5.0); NEUTROPHILS # 5.5 10^3/uL (1.8-7.7); NEUTROPHILS % 67.1 % (36.0-66.0); PLATELET COUNT, AUTOMATED 170 10^3/uL (150-450); RED BLOOD COUNT 2.98 10^6/uL (4.30-6.10); WHITE BLOOD COUNT 8.1 10^3/uL (4.0-10.0)
[2018-07-26 07:18] LABS: INR 2.03; PROTHROMBIN TIME 23.3 SECONDS (12.1-14.4)
[2018-07-26 07:38] LABS: C REACTIVE PROTEIN QUANTITATIV 5.32 MG/DL (0.00-0.30); CALCIUM LEVEL 7.2 MG/DL (8.8-10.2); CREATININE FOR GFR 8.74 MG/DL (0.70-1.30); GLOMERULAR FILTRATION RATE 7.8 (>42); MAGNESIUM LEVEL 2.2 MG/DL (1.8-2.4); PHOSPHORUS LEVEL 5.1 MG/DL (2.5-4.9); POTASSIUM SERUM 5.5 MEQ/L (3.5-5.1)
[2018-07-26] MEDS: HumaLOG INSULIN (NovoLOG) PER UNIT SC SCH ×4 (08:16→21:41)
--- NOTE | 2018-07-26 10:52 | IPN ---
DATE: 07/24/2018 Mr. Lobo is seen this morning on his bedside. He is sitting at the edge of bed and just finished eating breakfast. He is feeling well and denies any nausea, vomiting, dyspnea or chest pain. He had debridement of his foot wound done yesterday without any problems. He remains on antibiotics. He was also dialyzed yesterday prior to procedure. PHYSICAL EXAMINATION: Temperature 97.7 degrees Fahrenheit, heart rate 72 per minute and respiratory rate 18 per minute. Blood pressure 120/59 mmHg and oxygen saturation 96% on room air. Head is atraumatic. Neck is supple and jugular venous distention (JVD) is not abnormally elevated. Heart sounds are irregular in rhythm. Lungs are clear to auscultation bilaterally. Abdomen is soft and nontender and without a palpable organomegaly. Bowel sounds are normal. Extremities have no cyanosis or clubbing. Left foot stump and lower level is in the dressing. Neurologically, he is awake, alert and at his baseline mentation. Today's labs show WBC count 8.0, hemoglobin 9.8 and hematocrit 31.8. Platelets 160. Sodium 137, potassium 4.8, CO2 29, BUN 33 and creatinine 5.48. Glucose 140 and calcium 7.2. PROBLEMS: 1. End-stage renal disease. The patient was dialyzed yesterday and next dialysis will be scheduled for Thursday. His volume status is well-compensated and electrolytes are within normal range. At present, there is no emergent indication for dialysis today. 2. Hyperkalemia. He did have mild hyperkalemia, which corrected with dialysis and at this point no other intervention is indicated. 3. Infected stump with nonhealing wound on his left foot. The patient remains afebrile at present and continues with Zosyn 2.25 grams every 12 hours. He already had his wound debrided yesterday. 4. Anemia. The patient does have anemia of chronic kidney disease, which is stable at this point, and we will continue to monitor closely.
[2018-07-26] MEDS ORDERED: HEPARIN 1,000 UNITS/ML 10ML VIAL (FOR RADIOLOGY& DIALYSIS ONLY) IV ONE (11:15)
--- NOTE | 2018-07-26 11:40 | IPNPDOC ---
Text Note Date of Service The patient was seen on 07/26/18. NOTE Subjective: Patient is a 73-year-old male who presented to the hospital with a diabetic foot wound. Patient was seen the OR on Thursday by Dr. Jackson. Patient had dialysis today. Patient was not having any acute complaints today. Patient was doing otherwise well. Patient says he is no pain in his foot or ankle. Patient is having no difficulties eating or drinking. Patient is having no difficulty urinating or defecating. Review of systems General: Patient denies fevers HEENT: Patient denies headaches Cardiovascular: Patient denies chest pain Respiratory: Patient denies shortness of breath, cough GI: Patient denies abdominal pain, nausea, vomiting, diarrhea : Patient denies pain or difficulty with urination Neurological: Patient denies numbness or tingling in extremities Extremities: Patient denies swelling or pain in extremities Objective: Vitals: (see below) General: No acute distress, laying comfortably in bed. HEENT: Normocephalic, atraumatic, moist mucous membranes. Neck: No JVD or lymphadenopathy Cardiac: RRR, No murmurs Pulm: Clear to auscultation b/l. No wheezing, rhonchi Abd: NT/ND + BS Ext: No edema or cyanosis. Radial, posterior tibial, and dorsalis pedis pulses equal bilaterally. Labs (see below) Images: No imaging is been performed 07/23/2018 Assessment/Plan 1. Left posterior heel and Achilles tendon wound with cellulitis. Status post debridement by Dr. Jackson. Patient's currently on Zosyn and we'll follow up the cultures and CRP. We will adjust antibiotics as needed and will need physical therapy. 2. End-stage renal disease. Patient is on dialysis per nephrology. 3. Insulin independent diabetes. We'll continue with his current sliding scale and bolus insulin doses. 4. Atrial fibrillation. Patient has been restarted on Coumadin. We will continue to monitor INR. We will continue metoprolol. 5. Dyslipidemia. We'll continue patient's statin 6. Peripheral vascular disease. We will continue aspirin and statin Dr. Benjamin has been consulted. 7. Obstructive sleep apnea. Encouraged CPAP. 8. Obesity complicating care. 9. Thoracic aortic aneurysm. Outpatient follow-up. 10. Peripheral diabetic neuropathy. Continue current medication. DVT prophy: Coumadin Dispo: Pending culture results and physical therapy. VS,Fishbone, I+O VS, Fishbone, I+O Laboratory Tests 07/26/18 06:27 Red Blood Count 2.98 L, Mean Corpuscular Volume 100.7 H, Mean Corpuscular Hemoglobin 31.9, Mean Corpuscular Hemoglobin Concent 31.7 L, Red Cell Distribution Width 18.0 H, Neutrophils (%) (Auto) 67.1 H, Lymphocytes (%) (Auto) 14.9 L, Monocytes (%) (Auto) 13.4 H, Eosinophils (%) (Auto) 3.3 H, Basophils (%) (Auto) 0.6, Neutrophils # (Auto) 5.5, Lymphocytes # (Auto) 1.2 L, Monocytes # (Auto) 1.1 H, Eosinophils # (Auto) 0.3, Basophils # (Auto) 0.1, Calcium Level 7.2 L Vital Signs Date Time Temp Pulse Resp B/P (MAP) Pulse Ox O2 Delivery O2 Flow Rate FiO2 07/26/18 06:00 97.0 73 20 117/61 (79) 96 I&O- Last 24 Hours up to 6 AM 07/26/18 06:00 Intake Total 1230 ml Output Total 0 ml Balance 1230 ml GME ATTESTATION GME ATTESTATION My faculty preceptor for this patient encounter was physically present during e encounter and was fully available. All aspects of the patient interview, examination, medical decision making process, and medical care plan development were reviewed and approved by the faculty preceptor. The faculty preceptor is aware and concurs with the plan as stated in the body of this note and will attest to such by his/her cosignature. ATTENDING NOTE I have both independently examined this patient as well as reviewed the note I have discussed in detail the findings and plan of treatment as documented in the note. I will continue to follow the patient and offer further guidance to the patients care as necessary during this hospital stay. JEN Rodriguez MD, DO Jul 26, 2018 11:40 ALMA MOORE MD Jul 27, 2018 07:36
[2018-07-26] MEDS: ATORVASTATIN 20 MG TAB PO SCH (13:43)
[2018-07-26] MEDS: GABAPENTIN 100 MG CAP PO SCH (13:44)
[2018-07-26 14:00] VITALS: BP 131/73
--- NOTE | 2018-07-26 14:05 | IPN ---
DATE: 07/25/2018 Patient seen postoperative, denies overnight complaints. Denies nausea, vomiting, fever or chills. States pain is controlled. Vital signs reviewed. He has remained afebrile. Labs were reviewed. White blood cell count is 8.2, CRP if 5.31. Operative cultures are pending. Gram stain shows no organisms or cells. Lower extremity examination there is some improvement in the necrotic tissue to the posterior calf. The Achilles tendon is present in the central wound. ASSESSMENT: 73-year-old male with posterior leg ulceration status post debridement. PLAN: Start daily dressing changes, Vashe, Adaptic over tendon, Optifoam, Kerlix, AUTUMN wrap. Keep posterior calf off of bed. Await arterial ultrasound. If abnormal, may consider vascular consultation. Continue antibiotics. Await operative cultures.
--- NOTE | 2018-07-26 14:42 | IPN ---
DATE: 07/25/2018 Mr. Lobo is seen this morning on his bedside. He feels well and denies any nausea, vomiting, fever or chills. He felt that he was somewhat short of breath this morning; however, he feels better now while he is sitting at the edge of his bed. PHYSICAL EXAMINATION: Temperature 97.6 degrees Fahrenheit, heart rate 88 per minute and respiratory rate 18 per minute. Blood pressure 123/78 mmHg and oxygen saturation 97% on room air. Head is atraumatic. Neck is supple and without jugular venous distention (JVD) or thyroid enlargement. Heart sounds are irregular in rhythm and lungs sound clear to auscultation. Abdomen obese, soft and nontender and bowel sounds are normal. Extremities have no cyanosis or clubbing. His AV fistula is patent. Neurologically, he is awake and alert and without a focal deficit. Today's labs show WBC count 8.2, hemoglobin 9.9 and hematocrit 31.6. Sodium 135, potassium 4.9, CO2 26, BUN 55 and creatinine 7.33. A C-reactive protein is 5.31. PROBLEMS: 1. End-stage renal disease. The patient is regularly dialyzed on Thursday, Thursday and Thursday schedule and he was last dialyzed on Thursday. His next dialysis will be scheduled for tomorrow morning. 2. Congestive heart failure. Volume status is reasonably well-compensated and we will try to remove about 3-4 liters of fluid with dialysis tomorrow. I will continue to manage his volume status with hemodialysis. 3. Anemia. His anemia is stable at this point and we will start with Aranesp 200 mcg once a week. 4. 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 The patient did have a debridement done by Dr. Jackson and remains on antibiotics. He is currently afebrile. 5. Hypotension. His blood pressure has been reasonably well-controlled and no changes are being made today.
--- NOTE | 2018-07-26 17:24 | REP ---
Right lower extremity arterial ultrasound: The ankle brachial index could not be performed due to patient intolerance and extremity bandaging. Peak Systolic Phasicity Velocity SMASH PIECER 102 triphasic Profunda 85.5 monophasic SFA prox 70.6 triphasic SFA mid 85.7 triphasic SFA dist 66.5 triphasic Pop 41.7 monophasic AUGUSTINE prox 43.5 biphasic Tib/P tr 72.0 monophasic HAND POLISHER pr 63.7 monophasic HAND POLISHER dst 92.9 monophasic AUGUSTINE dst 108 monophasic The study is technically quite difficult because of bandaging of the extremity and patient intolerance. The stenosis is identified from the proximal to distal AUGUSTINE. Left lower extremity arterial ultrasound: The ankle brachial index could not be performed due to patient intolerance and extremity bandaging. Half Peak Systolic Phasicity Velocity SMASH PIECER 98.3 triphasic Profunda 110 monophasic SFA prox 108 triphasic SFA mid 88.4 monophasic SFA dist 55.5 monophasic Pop 38.3 monophasic AUGUSTINE prox 50.1 monophasic Tib/P tr 46.2 monophasic HAND POLISHER pr 57.0 monophasic HAND POLISHER dst cannot scan cannot scan AUGUSTINE dst cannot scan cannot scan Moderate disease is identified throughout the left lower extremity. Electronically Signed by Sam Luis MD 07/26/2018 05:16 P
[2018-07-26] MEDS: WARFARIN SOD 5 MG TAB PO SCH (17:42)
--- NOTE | 2018-07-26 17:56 | IPN ---
DATE: 07/26/2018 Mr. Lobo is seen this morning during hemodialysis. He is feeling well and denies any complaints. He had debridement done of his left foot stump wound and has been afebrile. He denies any dyspnea, chest pain, fever or chills. PHYSICAL EXAMINATION: Temperature 97 degrees Fahrenheit, heart rate 73 per minute and respiratory rate 20 per minute. Blood pressure 117/60 mmHg and oxygen saturation 96% on room air. His head is atraumatic. 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 Neck veins are difficult to be assessed. His heart sounds are irregular in rhythm. Lungs with moderate bilateral air entry. Abdomen is obese, soft and nontender and bowel sounds are normal. Extremities have no cyanosis or clubbing. Left foot stump is wrapped in dressing. Neurologically, he is at his baseline mentation. LABORATORY DATA: Today's laboratories show WBC count 8.1, hemoglobin 9.5 and hematocrit 30.0. Sodium 136, potassium 5.5, CO2 24, BUN 71 and creatinine 8.74. PROBLEMS: 1. End-stage renal disease. The patient is being dialyzed today and tolerating dialysis treatment very well. We are trying to remove about four liters of fluid. 2. Hyperkalemia, related to end-stage renal disease and likely to correct with dialysis today. We are using 2.0 mEq potassium bath for his treatment. No other intervention would be needed. 3. Anemia, related to his end-stage renal disease and nonhealing and infected left foot wound. The patient has been started on Aranesp 200 mcg once a week. 4. Infected left foot wound. The patient remains on IV antibiotics and his wound has already been debrided. He is currently on Zosyn 2.25 grams every 12 hours.
[2018-07-26 22:00] VITALS: BP 144/74
[2018-07-26] MEDS: ACETAMINOPHEN TAB 650MG DOSE (2X325MG) PO PRN (23:40)
[2018-07-27] MEDS: PIPERACILLIN/TAZOBACTAM SOD 2.25 GM in D5W MINI-BAG PLUS 50 ML IV SCH (05:08)
[2018-07-27 06:00] VITALS: BP 118/51
[2018-07-27 06:42] LABS: BASO % 0.5 % (0.0-1.0); EOS # 0.3 10^3/uL (0.0-0.50); EOS % 3.4 % (0.0-3.0); HEMATOCRIT 30.9 % (42.0-52.0); HEMOGLOBIN 9.9 g/dl (13.5-17.5); LYMPH # 1.1 10^3/uL (1.5-4.5); LYMPH % 13.5 % (24.0-44.0); MEAN CORPUSCULAR HEMOGLOBIN 32.5 pg (27.0-33.0); MEAN CORPUSCULAR VOLUME 101.3 fl (80.0-96.0); MONO # 1.1 10^3/uL (0.0-0.8); MONO % 13.8 % (0.0-5.0); NEUTROPHILS # 5.6 10^3/uL (1.8-7.7); PLATELET COUNT, AUTOMATED 180 10^3/uL (150-450); RED BLOOD COUNT 3.05 10^6/uL (4.30-6.10); WHITE BLOOD COUNT 8.3 10^3/uL (4.0-10.0)
[2018-07-27 06:51] LABS: INR 1.93; PROTHROMBIN TIME 22.4 SECONDS (12.1-14.4)
[2018-07-27 07:07] LABS: C REACTIVE PROTEIN QUANTITATIV 5.38 MG/DL (0.00-0.30); CALCIUM LEVEL 7.7 MG/DL (8.8-10.2); CREATININE FOR GFR 5.98 MG/DL (0.70-1.30); GLOMERULAR FILTRATION RATE 12.1 (>42); MAGNESIUM LEVEL 1.9 MG/DL (1.8-2.4); PHOSPHORUS LEVEL 4.3 MG/DL (2.5-4.9); POTASSIUM SERUM 4.6 MEQ/L (3.5-5.1)
[2018-07-27] MEDS: HumaLOG INSULIN (NovoLOG) PER UNIT SC SCH ×4 (07:30→21:00)
[2018-07-27] MEDS: VITAMIN D 1,000 INTERNATIONAL UNITS TABLET PO SCH (09:42)
[2018-07-27] MEDS: CYANOCOBALAMIN 500 MCG TAB PO SCH (09:42)
[2018-07-27] MEDS: LACTOBACILLUS ACIDOPHILUS CAP (BACID) PO SCH ×3 (09:42→17:33)
[2018-07-27] MEDS: MIDODRINE 5 MG TAB PO SCH ×2 (09:42→17:33)
[2018-07-27] MEDS: LEVEMIR (INSULIN DETEMIR) 1 UNITS/0.01ML SC SCH (09:43)
[2018-07-27] MEDS: ASPIRIN 81 MG ENTERIC TAB PO SCH (09:43)
[2018-07-27] MEDS: NEPHRO-VIT TAB (NEPHROCAPS) PO SCH (09:43)
[2018-07-27] MEDS: METOPROLOL TART 25 MG TABLET PO SCH ×2 (09:43→22:10)
--- NOTE | 2018-07-27 11:20 | IPNPDOC ---
Text Note Date of Service The patient was seen on 07/27/18. NOTE Subjective: Patient is a 73-year-old male who presented to the hospital with a infected posterior heel ulcer on his left foot. Patient went to the operating room on 07/23/2018 for debridement. Patient is doing well. Patient is asking when he can go home. We are still awaiting culture results. Patient says he's having difficulty having a bowel movement. Other than that, patient is doing well. Review of systems General: Patient denies fevers HEENT: Patient denies headaches Cardiovascular: Patient denies chest pain Respiratory: Patient denies shortness of breath, cough GI: Patient denies abdominal pain, nausea, vomiting, diarrhea : Patient denies pain or difficulty with urination Neurological: Patient denies numbness or tingling in extremities Extremities: Mild pain and swelling in lower extremities bilaterally. Objective: Vitals: (see below) General: No acute distress, laying comfortably in bed. HEENT: Normocephalic, atraumatic, moist mucous membranes. Neck: No JVD or lymphadenopathy Cardiac: RRR, No murmurs Pulm: Clear to auscultation b/l. No wheezing, rhonchi Abd: NT/ND + BS Ext: Trace pitting edema in the bilateral lower extremities. The left lower e xtremity is bandaged. The bandage is not soiled. Labs (see below) Images: An extremity arterial study of the left lower extremity showed moderate peripheral artery disease. Assessment/Plan 1. Left posterior heel and Achilles tendon wound with cellulitis. Status post debridement by Dr. Maribel Alvarez. Patient currently on Zosyn and will follow up cultures and CRP. We will adjust antibiotics as needed. Patient is working with physical therapy. 2. End stage renal disease. Patient is on dialysis per nephrology. 3. Insulin dependent diabetes. We will continue with his current sliding scale and bolus insulin doses. 4. Atrial fibrillation. Patient's been restarted on Coumadin. We'll continue to monitor INR. Toprol will also be continued. 5. Dyslipidemia. We will continue the patient's statin. 6. Peripheral vascular disease. We will continue aspirin and statin. Dr. Benjamin has been consulted. 7. Obstructive sleep apnea. Continue home CPAP. 8. Obesity complicating care. 9. Thoracic aortic aneurysm. Outpatient follow-up. 10. Peripheral diabetic neuropathy. Continue current medication. DVT prophy: Coumadin Dispo: Pending culture results and physical therapy VS,Fishbone, I+O VS, Fishbone, I+O Laboratory Tests 07/27/18 06:21 Red Blood Count 3.05 L, Mean Corpuscular Volume 101.3 H, Mean Corpuscular Hemoglobin 32.5, Mean Corpuscular Hemoglobin Concent 32.0, Red Cell Distribution Width 18.2 H, Neutrophils (%) (Auto) 68.0 H, Lymphocytes (%) (Auto) 13.5 L, Monocytes (%) (Auto) 13.8 H, Eosinophils (%) (Auto) 3.4 H, Basophils (%) (Auto) 0.5, Neutrophils # (Auto) 5.6, Lymphocytes # (Auto) 1.1 L, Monocytes # (Auto) 1.1 H, Eosinophils # (Auto) 0.3, Basophils # (Auto) 0.0, Calcium Level 7.7 L Vital Signs Date Time Temp Pulse Resp B/P (MAP) Pulse Ox O2 Delivery O2 Flow Rate FiO2 07/27/18 09:43 80 118/51 07/27/18 06:00 97.8 18 98 I&O- Last 24 Hours up to 6 AM 07/27/18 06:00 Intake Total 1200 ml Output Total 4500 ml Balance -3300 ml GME ATTESTATION GME ATTESTATION My faculty preceptor for this patient encounter was physically present during the encounter and was fully available. All aspects of the patient interview, examination, medical decision making process, and medical care plan development were reviewed and approved by the faculty preceptor. The faculty preceptor is aware and concurs with the plan as stated in the body of this note and will attest to such by his/her cosignature. ATTENDING NOTE I have both independently examined this patient as well as reviewed the note I have discussed in detail the findings and plan of treatment as documented in the note. I will continue to follow the patient and offer further guidance to the patients care as necessary during this hospital stay. JEN Rodriguez MD, DO Jul 27, 2018 11:20 ALMA MOORE MD Jul 28, 2018 07:21
[2018-07-27] MEDS: ATORVASTATIN 20 MG TAB PO SCH (13:07)
[2018-07-27] MEDS: GABAPENTIN 100 MG CAP PO SCH (13:07)
[2018-07-27] MEDS: SENOKOT S TAB PO SCH ×2 (13:07→22:10)
[2018-07-27 14:00] VITALS: BP 120/73
--- NOTE | 2018-07-27 14:24 | IPN ---
DATE: 07/27/2018 Patient is seen and examined at bedside. Denies overnight complaints. States no pain in his foot. Vital signs are reviewed, he is afebrile. Labs are reviewed, white blood cell count is 8.3, CRP is 5.38. Operating room (OR) cultures are still pending. Arterial studies were performed yesterday, these were limited due to patient intolerance and bandaging, however there is moderate disease identified throughout the left lower extremity with only monophasic signals noted distal to the superficial femoral artery (SFA). LOWER EXTREMITY EXAMINATION: There is improvement in the odor and appearance of the wound. No significant necrotic tissue is identified. The exposed Achilles tendon appears more viable than previous examination. There is some maceration to the periphery of the wound. ASSESSMENT: 73-year-old male with posterior ulceration with exposed tendon, cellulitis. PLAN: Await operating room (OR) cultures, continue empiric antibiotics until then. Continue daily dressing changes, Vashe with Adaptic cut to site of wound and Optifoam. If maceration persists, switch Optifoam to OptiLock. Dr. Benjamin has been consulted to evaluate the blood flow and any indication as he deems indicated. Will follow.
--- NOTE | 2018-07-27 14:33 | IPN ---
DATE: 07/27/2018 Mr. Lobo is seen this morning on his bedside. He just returned from walking in the hallway and reports feeling well. He denies any pain in his left foot stump and still has a dressing wrapped. He denies any nausea, vomiting, fever or chills. PHYSICAL EXAMINATION: Temperature 97.8 degrees Fahrenheit, heart rate 80 per minute and respiratory rate 18 per minute. Blood pressure 118/50 mmHg and oxygen saturation 98%. Head is atraumatic. 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 His neck is supple and JVD is not abnormally elevated. Heart sounds are irregular in rhythm and lungs sound clear to auscultation. Abdomen obese, soft and nontender and bowel sounds are normal. Extremities have no cyanosis or clubbing. Left leg has 2+ edema while there is no edema on the right leg. His left foot and lower leg is wrapped in dressing. Neurologically he is at his baseline mentation. Today's labs show WBC count 8.3, hemoglobin 9.9 and hematocrit 30.9. Platelets 180. Sodium 137, potassium 4.6, CO2 27, BUN 40 and creatinine 5.98. PROBLEMS: 1. End-stage renal disease. The patient was dialyzed yesterday and he will be scheduled for next dialysis tomorrow. At present there is no emergent indication for dialysis today. 2. Hyperkalemia. This has already corrected with dialysis yesterday and no intervention is indicated at this point 3. Anemia. His anemia has been stable and does not need any further intervention. He is already receiving Aranesp 200 mcg once a week with dialysis which will be continued. 4. Congestive heart failure. At present his volume status is very well compensated and we will continue to manage it with dialysis. We will try to remove at least 4 liters of fluid with each dialysis. 5. Left foot infected wound. The patient had wound debridement done a few days ago and has been doing well and remains on antibiotics.
--- NOTE | 2018-07-27 15:16 | PHACANCOPD ---
PHARMACY VANCOMYCIN DOSING Pt Demographics Demographics Patient Age:73 , Weight:131.300 , Gender: male Adjusted Body Weight Date: 07/27/18, Adjusted Body Weight: Kg Events Past 24 Hours Events Past 24 Hours: YES: Dialysis Vancomycin Vancomycin Target Ranges: 15-20 mcg/ml Vancomycin Load Y/N: Yes Load Dose Date Time Vancomycin Load Dose: 2g Date: 07/27/18 Time: 1600 Vancomycin Dose Date: 07/27/18. Current Vancomycin Dose: Intermittent Dosing?: No Labs Labs Vital Signs Label Value Date Time Patient Temperature 97.8 degrees F 07/27/18 0600 Temperature Source Temporal 07/27/18 0600 Patient Temperature 96.5 degrees F 07/26/18 2200 Temperature Source Temporal 07/26/18 220 Item Value Date Time White Blood Count 8.3 10^3/uL 07/27/18620 White Blood Count 8.1 10^3/uL 07/26/18626 White Blood Count 8.2 10^3/uL 07/25/18611 Creatinine 5.98 MG/DL H 07/27/18620 Creatinine 8.74 MG/DL *H 07/26/18626 Creatinine 7.33 MG/DL H 07/25/18611 Micro Microbiology 07/22/18 Blood Culture - Preliminary, Resulted No Growth after 72 hours. All specime... 07/22/18 Blood Culture - Preliminary, Resulted No Growth after 72 hours. All specime... 07/23/18 Anaerobic Culture - Final, Resulted Streptococcus Intermedius 07/23/18 Gram Stain - Final, Complete 07/23/18 Wound Culture - Final, Complete Strep Agalactiae Group B Staph.aureus Methicillin Resis Streptococcus Intermedius Creatinine Clearance Date:07/27/18. Creatinine Clearance: . Assessment and Plan Maintaining Current Dose?: Yes Reason for dose change: No Dose Change Pharmacist Note Pharmacist Note Date: 07/27/18. Pharmacist note: Pt. is a 73 year old male with a diabetic foot infection positive for MRSA and strep. Pt. has been started on Vancomycin. Pt. is also ESRD on dialysis MWF. I have loaded the patient with 2G Vanco with Vanco 1G IV HD to follow. We will continue to follow and adjust dose as needed. CRISTOBAL HERRERA [facility]ARM[facility] Jul 27, 2018 15:16
[2018-07-27] MEDS ORDERED: VANCOMYCIN HCL 1,000 MG, VIAL MATE ADAPTER 1 EACH in D5W 250 ML IV ONE ×2 (16:00→17:00)
[2018-07-27] MEDS: **VANCO AFTER HD** MISC XX SCH (16:00)
[2018-07-27] MEDS: WARFARIN SOD 5 MG TAB PO SCH (17:33)
[2018-07-27 22:00] VITALS: BP 131/74
[2018-07-28] MEDS: NEPHRO-VIT TAB (NEPHROCAPS) PO SCH (05:00)
[2018-07-28] MEDS: VITAMIN D 1,000 INTERNATIONAL UNITS TABLET PO SCH (05:00)
[2018-07-28] MEDS: LACTOBACILLUS ACIDOPHILUS CAP (BACID) PO SCH ×3 (05:00→18:12)
[2018-07-28] MEDS: MIDODRINE 5 MG TAB PO SCH ×2 (05:00→16:13)
[2018-07-28] MEDS: ASPIRIN 81 MG ENTERIC TAB PO SCH (05:00)
[2018-07-28] MEDS: SENOKOT S TAB PO SCH (05:01)
[2018-07-28] MEDS: METOPROLOL TART 25 MG TABLET PO SCH ×2 (05:01→21:00)
[2018-07-28] MEDS: CYANOCOBALAMIN 500 MCG TAB PO SCH (05:01)
[2018-07-28 06:00] VITALS: BP 125/61
--- NOTE | 2018-07-28 06:06 | CR ---
DATE OF CONSULTATION: 07/27/2018 REASON FOR CONSULTATION: Methicillin-resistant Staphylococcus aureus (MRSA) on left diabetic foot ulcer. 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 Jacskon, who recommended the patient to be admitted at [facility] for intravenous (IV) antibiotics and wound debridement. Patient does not have any complaints. He denies having any fevers, chills, night sweats, nausea, vomiting, diarrhea, weakness, malaise. He denies having any new pain in the lower extremities, any purulent discharge from his diabetic ulcer. His does admit that it has been foul smelling, though. He admits to having diabetic neuropathy and he ambulates around the house without any footwear. At the time of our examination, patient was status post wound debridement of the posterior ulceration with exposed tendon and cellulitis. The procedure was done on 07/26/2018. He has been on Zosyn and vancomycin since admission. Wound cultures just returned, positive for MRSA, Streptococcus agalactiae group B, Streptococcus intermedius. He also had an extremity arterial study performed on 07/26/2018, which showed moderate disease not identified throughout the left lower extremity. A consult has been placed for a vascular surgeon to evaluate the patient to see if he needs angioplasty. He has been tolerating his IV antibiotics with no problem, and he has no complaints at this time. PAST MEDICAL HISTORY: 1. Insulin-dependent diabetes. 2. History of osteomyelitis admission in January 2018. 3. End-stage renal disease, on dialysis Thursday, Thursday, Thursday. 4. Obstructive sleep apnea, on continuous positive airway pressure (CPAP). 5. Hyperlipidemia. 6. Hypertension. 7. Atrial fibrillation, currently on Coumadin. 8. History of tachycardic/bradycardic syndrome. 9. History of thoracic aortic aneurysm. PAST SURGICAL HISTORY: 1. Pacemaker placement for his history of tachycardic/bradycardic syndrome. 2. Atrioventricular (AV) valve repair. 3. Left metatarsal amputation (January 2018). ALLERGIES: No known drug allergies. FAMILY HISTORY: Positive for heart disease. HOME MEDICATION: - aspirin - cephalexin - collagenase - NovoLog - Levemir - Coumadin - Ventolin - Lipitor - vitamin D - vitamin B12 - gabapentin - metoprolol tartrate - midodrine - nitroglycerin - vitamin B complex SOCIAL HISTORY: Patient denies any alcohol or illicit drug use. He lives at home. He has a pertinent history of being a past smoker in the past but quit many years ago. REVIEW OF SYSTEMS: Unless sited in the history of present illness (HPI), the remaining review of systems are negative. PHYSICAL EXAMINATION: VITALS: Temperature 97.5, pulse 88, respiration 20, blood pressure 120/73 (89), pulse oximeter 100% on room air. GENERAL: This is a very pleasant 73-year-old male who does not appear in any acute distress, appropriately answering questions. Gets a little short of breath with continued conversation. HEENT: Atraumatic, normocephalic. Very large neck girth. 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 CARDIOVASCULAR: Irregularly irregular, rate controlled with no audible murmurs. LUNGS: Kind of distant heart sounds due to large body habitus. No audible wheezing or rales. GASTROINTESTINAL: Abdomen obese, nontender. Positive bowel sounds in all four quadrants. EXTREMITIES: Left posterior leg 10 x 3 cm wound appreciated at the base of the left leg. Tendon is exposed. Does not appear irritated. Serosanguineous fluid with no pus, excessive drainage, or bleeding. Range of motion is intact at the ankle. No maceration can be noted around the wound. INTEGUMENTARY: Skin appears very dry in the lower extremities, on his abdomen, and upper extremities. LABORATORIES: WBC 8.3, hemoglobin 9.9, hematocrit 30.9, platelets 180. Chemistry: Sodium 137, potassium 4.6, chloride 100, carbon dioxide 27, anion gap of 10, BUN of 40, creatinine of 5.98, fasting glucose of 154, calcium of 7.7, CRP of 5.38. Microbiology: Blood cultures times two negative for growth. Wound cultures positive for Streptococcus agalactiae group B, Staphylococcus aureus methicillin resistant, Streptococcus intermedius. IMAGING: Foot x-ray done on 07/23/2018 status post metatarsal ostomy: No acute bony erosion changes, vascular calcification seen. Extremity arterial study of the lower extremities: Moderate disease is identified throughout the left lower extremity. Right lower extremity, the study was technically quite difficult because of the bandaging of the extremity and the patient's intolerance, but there is stenosis identified from the proximal to the distal anterior tibial artery (AUGUSTINE). ASSESSMENT AND PLAN: This is a 73-year-old male with multiple comorbidities but pertinent for insulin-dependent diabetes, history of osteomyelitis status post metatarsal amputation, who was admitted for worsening diabetic foot ulcer. Patient is status post wound debridement on 07/26/2018. 1. Diabetic foot ulcer of the left posterior wound. Subjectively, the patient is not complaining of fevers, chills, malaise, or pain in the lower extremity. He contributes the lack of pain due to diabetic neuropathy. Physical exam shows an exposed tendon that appears clean, serosanguineous with no pus with good healing tissue around it. He has been on vancomycin and Zosyn since admission, on 07/22/2018. Wound cultures came back positive for MRSA and streptococcus. Sensitivity shows to vancomycin. It is my recommendation that he continue with the IV vancomycin while admitted and obtain prior authorization for Zyvox outpatient. Because the wound has been going on for a couple of months with no improvement even though the patient has home care, there is discussion about having the patient discharge for possible rehabilitation or assisted living. Will refer to the primary team for further planning. Continue antibiotic therapy for a total of 14 days. 2. End-stage renal disease, on dialysis. Follow recommendations from nephrology. 3. Peripheral vascular disease. Ultrasound did show moderate disease. He is currently on aspirin and a statin pending recommendations from Dr. Benjamin. 4. Insulin-dependent diabetes. Continue with insulin regimen placed by primary team. My faculty preceptor for this patient encounter was physically present during the encounter and was fully available. All aspects of the patient interview, examination, medical decision making process, and medical care plan development were reviewed and approved by the faculty preceptor. The faculty preceptor is aware and concurs with the plan as stated in the body of this note and will attest to such by his/her cosignature.
[2018-07-28 06:45] LABS: BASO % 0.5 % (0.0-1.0); EOS # 0.2 10^3/uL (0.0-0.50); EOS % 2.8 % (0.0-3.0); HEMATOCRIT 29.8 % (42.0-52.0); HEMOGLOBIN 9.6 g/dl (13.5-17.5); LYMPH # 1.2 10^3/uL (1.5-4.5); LYMPH % 14.7 % (24.0-44.0); MEAN CORPUSCULAR HGB CONC 32.2 g/dl (32.0-36.5); MEAN CORPUSCULAR VOLUME 99.3 fl (80.0-96.0); MONO # 0.9 10^3/uL (0.0-0.8); NEUTROPHILS # 5.8 10^3/uL (1.8-7.7); NEUTROPHILS % 70.3 % (36.0-66.0); PLATELET COUNT, AUTOMATED 175 10^3/uL (150-450); WHITE BLOOD COUNT 8.3 10^3/uL (4.0-10.0)
[2018-07-28 07:10] LABS: INR 1.94; PROTHROMBIN TIME 22.5 SECONDS (12.1-14.4)
[2018-07-28 07:17] LABS: C REACTIVE PROTEIN QUANTITATIV 5.78 MG/DL (0.00-0.30); CALCIUM LEVEL 7.8 MG/DL (8.8-10.2); CREATININE FOR GFR 8.07 MG/DL (0.70-1.30); GLOMERULAR FILTRATION RATE 8.5 (>42); PHOSPHORUS LEVEL 5.1 MG/DL (2.5-4.9); POTASSIUM SERUM 4.8 MEQ/L (3.5-5.1)
[2018-07-28] MEDS: HumaLOG INSULIN (NovoLOG) PER UNIT SC SCH ×4 (07:53→21:05)
[2018-07-28] MEDS: ATORVASTATIN 20 MG TAB PO SCH (13:40)
[2018-07-28] MEDS: GABAPENTIN 100 MG CAP PO SCH (13:40)
[2018-07-28 14:00] VITALS: BP 99/56
--- NOTE | 2018-07-28 14:45 | IPN ---
DATE OF VISIT: 07/28/2018 Mr. Lobo is seen this morning on his bedside during dialysis. He is feeling well and denies any complaints. He has no dyspnea, chest pain, nausea or vomiting. On physical exam, temperature 98.9 degrees Fahrenheit, heart rate 84 per minute and respiratory rate 18 per minute. Blood pressure 125/60 mmHg and oxygen saturation 98% on room air. His head is atraumatic. Neck is supple and without jugular venous distention (JVD) or thyroid enlargement. Heart sounds are irregular in rhythm and lungs clear to auscultation. Abdomen obese, soft and nontender, and bowel sounds are normal. Extremities have no cyanosis or clubbing. Left lower leg and left foot stump are wrapped in dressing. Neurologically, he is awake, alert and at his baseline mentation. Today's labs show WBC count 8.3, hemoglobin 9.6 and hematocrit 29.8. Platelets 175. Sodium 136, potassium 4.8, BUN 59 and creatinine 8.07. Calcium 7.8 and phosphorus 5.1. PROBLEMS: 1. End-stage renal disease. Patient is being dialyzed today and he is tolerating dialysis treatment very well. We are removing about 4 liters of fluid as tolerated. 2. Anemia. His anemia has been stable and he remains on Aranesp 200 mcg once a week, which will be continued. 3. Atrial fibrillation and congestive heart failure. Volume status is well-compensated and his ventricular rate is well-controlled. No changes in his medications are being made. 4. Infected left foot stump. Patient had debridement done and he is afebrile and remains on antibiotics.
[2018-07-28] MEDS: **VANCO AFTER HD** MISC XX SCH (16:00)
--- NOTE | 2018-07-28 16:12 | IPNPDOC ---
Text Note Date of Service The patient was seen on 07/28/18. NOTE Subjective: Patient is a 73-year-old male who presented with a posterior heel wound. Patient says he is doing well. Patient is eating and drinking without difficulty. Patient is to give some a mild amount of discomfort however, he is able to tolerate this pain. Patient is using the bathroom without difficulty. Review of systems General: Patient denies fevers HEENT: Patient denies headaches Cardiovascular: Patient denies chest pain Respiratory: Patient denies shortness of breath, cough GI: Patient denies abdominal pain, nausea, vomiting, diarrhea : Patient denies pain or difficulty with urination Neurological: Patient denies numbness or tingling in extremities Extremities: Pain in the left posterior ankle. Objective: Vitals: (see below) General: No acute distress, laying comfortably in bed. Patient was getting dialysis. HEENT: Normocephalic, atraumatic, moist mucous membranes. Neck: No JVD or lymphadenopathy Cardiac: RRR, No murmurs Pulm: Clear to auscultation b/l. No wheezing, rhonchi Abd: NT/ND + BS Ext: Trace pitting edema bilaterally. Bandage and Jose wrap covering the wound. Labs (see below) Images: No new imaging is been performed. Assessment/Plan 1. Left posterior heel Achilles tendon wound with cellulitis. Status post repair by Dr. Jackson. Patient currently on vancomycin secondary to wound cultures come back positive for MRSA. We will continue to follow CRP. Infectious disease has been consulted and it appears they were recommending to continue outpatient treatment with oral linezolid. We will continue to monitor. 2. End-stage renal disease. Patient is on dialysis per nephrology. 3. Insulin dependent diabetes. We'll continue with his current sliding scale and bolus insulin doses. 4. Dyslipidemia. We will continue the patient's statin 5. Atrial fibrillation. Patient has been restarted on Coumadin. We will continue to monitor INR. Metoprolol will also be continued. 6. Peripheral vascular disease. We'll continue aspirin and statin. Dr. Benjamin plans on taking the patient for angiography of the left leg tomorrow. 7. Obstructive sleep apnea. Continue home CPAP. 8. Obesity complicating care. 9. Thoracic aortic aneurysm. Outpatient follow-up. 10. Peripheral diabetic neuropathy. Continue current medication. DVT prophy: Coumadin Dispo: Pending angiography tomorrow and switching to by mouth antibiotic. VS,Fishbone, I+O VS, Fishbone, I+O Laboratory Tests 07/28/18 06:33 Red Blood Count 3.00 L, Mean Corpuscular Volume 99.3 H, Mean Corpuscular Hemoglobin 32.0, Mean Corpuscular Hemoglobin Concent 32.2, Red Cell Distribution Width 18.1 H, Neutrophils (%) (Auto) 70.3 H, Lymphocytes (%) (Auto) 14.7 L, Monocytes (%) (Auto) 11.0 H, Eosinophils (%) (Auto) 2.8, Basophils (%) (Auto) 0.5, Neutrophils # (Auto) 5.8, Lymphocytes # (Auto) 1.2 L, Monocytes # (Auto) 0.9 H, Eosinophils # (Auto) 0.2, Basophils # (Auto) 0.0, Calcium Level 7.8 L Vital Signs Date Time Temp Pulse Resp B/P (MAP) Pulse Ox O2 Delivery O2 Flow Rate FiO2 07/28/18 14:00 97.0 84 18 99/56 (70) 100 I&O- Last 24 Hours up to 6 AM 07/28/18 06:00 Intake Total 2620 ml Balance 2620 ml GME ATTESTATION GME ATTESTATION My faculty preceptor for this patient encounter was physically present during the encounter and was fully available. All aspects of the patient interview, examination, medical decision making process, and medical care plan development were reviewed and approved by the faculty preceptor. The faculty preceptor is aware and concurs with the plan as stated in the body of this note and will attest to such by his/her cosignature. ATTENDING NOTE I have both independently examined this patient as well as reviewed the note I have discussed in detail the findings and plan of treatment as documented in the note. I will continue to follow the patient and offer further guidance to the patients care as necessary during this hospital stay. JEN Rodriguez MD, DO Jul 28, 2018 16:12 ALMA MOORE MD Jul 28, 2018 19:16
[2018-07-28] MEDS ORDERED: LIDOCAINE 1% MDV 20ML VIAL As Ordered ONE (16:14)
[2018-07-28] MEDS: WARFARIN SOD 3 MG TAB PO SCH (18:13)
[2018-07-28] MEDS: VANCOMYCIN HCL 1,000 MG, VIAL MATE ADAPTER 1 EACH in D5W 250 ML IV SCH (18:32)
[2018-07-28] MEDS ORDERED: SODIUM CHLORIDE 0.9% INJ 10 ML SYR IV PRN (19:00)
--- NOTE | 2018-07-28 21:51 | REP ---
Procedure: Mid line insertion with Site-Rite The procedure was performed under the direct supervision of Dr. Cruz. The risks and benefits of the procedure were explained to the patient and informed consent was obtained. The left brachial vein was localized using ultrasound guidance. The skin was prepped and draped in a sterile fashion. 1% lidocaine was used as a local anesthetic. Using ultrasound guidance the brachial vein was cannulated and a 0.018 guidewire was inserted. The needle was removed and a 4.5 Chinese dilator and peel-away sheath was inserted over the guide wire. A 4.5 Chinese single lumen catheter was cut to length of 16.5 cm. The dilator was removed and the catheter was inserted over the guide wire. The peel-away sheath was removed and the catheter was flushed with heparinized saline as per Hospital protocol. The catheter was affixed to the skin and a sterile dressing was applied. The patient tolerated the procedure well and there were no immediate complications. Reviewed by JONATHAN Ramirez 07/28/2018 05:44 P Electronically Signed by Johny Cruz MD 07/28/2018 09:42 P
[2018-07-28 22:00] VITALS: BP 100/62
[2018-07-28] MEDS: ACETAMINOPHEN TAB 650MG DOSE (2X325MG) PO PRN (22:49)
[2018-07-28] MEDS: diphenhydrAMINE 25 MG CAP PO PRN (22:49)
[2018-07-29] MEDS: SODIUM CHLORIDE 0.9% INJ 10 ML SYR IV SCH ×3 (05:26→18:00)
[2018-07-29 05:47] LABS: BASO % 0.3 % (0.0-1.0); EOS # 0.2 10^3/uL (0.0-0.50); EOS % 2.5 % (0.0-3.0); HEMOGLOBIN 9.3 g/dl (13.5-17.5); LYMPH # 1.3 10^3/uL (1.5-4.5); LYMPH % 15.3 % (24.0-44.0); MEAN CORPUSCULAR HEMOGLOBIN 32.6 pg (27.0-33.0); MEAN CORPUSCULAR HGB CONC 32.1 g/dl (32.0-36.5); MEAN CORPUSCULAR VOLUME 101.8 fl (80.0-96.0); MONO # 1.2 10^3/uL (0.0-0.8); MONO % 13.7 % (0.0-5.0); NEUTROPHILS # 5.9 10^3/uL (1.8-7.7); NEUTROPHILS % 67.7 % (36.0-66.0); PLATELET COUNT, AUTOMATED 174 10^3/uL (150-450); RED BLOOD COUNT 2.85 10^6/uL (4.30-6.10); WHITE BLOOD COUNT 8.8 10^3/uL (4.0-10.0)
[2018-07-29 06:00] VITALS: BP 104/73
[2018-07-29 06:04] LABS: INR 1.87; PROTHROMBIN TIME 21.9 SECONDS (12.1-14.4)
[2018-07-29 06:15] LABS: C REACTIVE PROTEIN QUANTITATIV 5.12 MG/DL (0.00-0.30); CALCIUM LEVEL 7.8 MG/DL (8.8-10.2); CREATININE FOR GFR 5.61 MG/DL (0.70-1.30); PHOSPHORUS LEVEL 4.5 MG/DL (2.5-4.9); POTASSIUM SERUM 4.1 MEQ/L (3.5-5.1)
[2018-07-29] MEDS: HumaLOG INSULIN (NovoLOG) PER UNIT SC SCH ×4 (09:19→21:00)
[2018-07-29] MEDS: LEVEMIR (INSULIN DETEMIR) 1 UNITS/0.01ML SC SCH (09:19)
[2018-07-29] MEDS: MIDODRINE 5 MG TAB PO SCH ×2 (09:20→18:20)
[2018-07-29] MEDS: CYANOCOBALAMIN 500 MCG TAB PO SCH (09:21)
[2018-07-29] MEDS: VITAMIN D 1,000 INTERNATIONAL UNITS TABLET PO SCH (09:21)
[2018-07-29] MEDS: METOPROLOL TART 25 MG TABLET PO SCH ×2 (09:21→22:37)
[2018-07-29] MEDS: LACTOBACILLUS ACIDOPHILUS CAP (BACID) PO SCH ×3 (09:22→18:20)
[2018-07-29] MEDS: NEPHRO-VIT TAB (NEPHROCAPS) PO SCH (09:22)
[2018-07-29] MEDS: ASPIRIN 81 MG ENTERIC TAB PO SCH (09:22)
[2018-07-29] MEDS ORDERED: ZYVO1TAB PO (10:40)
--- NOTE | 2018-07-29 12:13 | IPN ---
DATE: 07/29/2018 Mr. Lobo is seen this morning on his bedside. He is feeling well and has been ambulating without any difficulty. He denies any nausea, vomiting, dyspnea or chest pain. On physical examination, temperature 98 degrees Fahrenheit, heart rate 98 per minute and respiratory rate 18 per minute. Blood pressure 104/73 mmHg and oxygen saturation 99% on room air. His head is atraumatic. 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 Neck veins are not abnormally distended. His heart sounds are tachycardiac and irregular in rhythm. Lungs are clear to auscultation bilaterally. Abdomen is obese, soft and nontender. Bowel sounds are normal. Extremities have no cyanosis or clubbing. Left foot is wrapped in a dressing. Today's labs show WBC count 8.8, hemoglobin 9.3 and hematocrit 29.0. Sodium 136, potassium 4.1, CO2 of 29, BUN 36 and creatinine 5.61. C-reactive protein is still 5.12. PROBLEMS: 1. End-stage renal disease. The patient was dialyzed yesterday and next dialysis will be scheduled for tomorrow. There is no emergent indication for dialysis today. Electrolytes are stable and volume status is well-compensated. 2. Anemia related to end-stage renal disease and ongoing infection in his left foot stump. He remains on Aranesp 200 mcg once a week. 3. Congestive heart failure. Volume status is very well compensated and we will continue removing about 4 liters of fluid with each dialysis. No intervention is indicated today. 4. Atrial fibrillation. His ventricular rate is reasonably well-controlled and no changes are being made today. 5. Infection left foot stump. The patient has been treated with debridement and remains on antibiotic. He will be followed up by Dr. Jackson.
--- NOTE | 2018-07-29 13:42 | IPNPDOC ---
Text Note Date of Service The patient was seen on 07/29/18. NOTE Subjective: Patient is a 73-year-old male who is currently hospitalized for a posterior left calcaneal wound infection. Patient was debrided last Thursday by Dr. Jackson. Patient says he is doing well today. Patient has no complaints today. Review of systems General: Patient denies fevers HEENT: Patient denies headaches Cardiovascular: Patient denies chest pain Respiratory: Patient denies shortness of breath, cough GI: Patient denies abdominal pain, nausea, vomiting, diarrhea : Patient denies pain or difficulty with urination Neurological: Patient denies numbness or tingling in extremities Extremities: Mild discomfort in left heel. Objective: Vitals: (see below) General: No acute distress, laying comfortably in bed. HEENT: Normocephalic, atraumatic, moist mucous membranes. Neck: No JVD or lymphadenopathy Cardiac: RRR, No murmurs Pulm: Clear to auscultation b/l. No wheezing, rhonchi Abd: NT/ND + BS Ext: Trace pitting edema in the right lower extremity. No pitting edema in the left lower extremity. Left foot was wrapped in a non-soiled bandage.. Labs (see below) Images: No new imaging has been performed. Assessment/Plan 1. Left posterior heel Achilles tendon wound with cellulitis. Status post debridement by Dr. Jackson. Patient currently on vancomycin secondary to wound cultures positive for MRSA. Patient was started on vancomycin on 07/27/2018. A prior authorization will be filled out for Zyvox 600 mg twice a day to be started outpatient. Current plan is to discharge the patient on Thursday. At that time patient will need to complete 10 days of Zyvox. A full 2 weeks of MRSA coverage. Dr. Kam is consulted for this patient and we appreciate her help car ing for this patient. 2. End-stage renal disease. Patient is on dialysis per nephrology. We appreciate Dr. Alvarez's help in caring for this patient. 3. Insulin dependent diabetes. We will continue his current insulin regimen. 4. Atrial fibrillation. Patient has been restarted on Coumadin. We will continue to monitor patient's INR. Metoprolol will also be continued. 5. Dyslipidemia. We'll continue the patient's statin. 6. Peripheral vascular disease. We'll continue aspirin and statin. Dr. Sourav solano on taking patient for angiography of the left leg today. 7. Obstructive sleep apnea. Continue home CPAP. 8. Obesity complicating care. 9. Thoracic aortic aneurysm. Outpatient follow-up. 10. Peripheral diabetic neuropathy. Continue current medication. DVT prophy: Coumadin Dispo: Pending results of angiography as well as starting by mouth Zyvox. Patient to get dialysis tomorrow with hopeful discharge for Thursday. VS,Fishbone, I+O VS, Fishbone, I+O Laboratory Tests 07/29/18 05:31 Red Blood Count 2.85 L, Mean Corpuscular Volume 101.8 H, Mean Corpuscular Hemoglobin 32.6, Mean Corpuscular Hemoglobin Concent 32.1, Red Cell Distribution Width 18.6 H, Neutrophils (%) (Auto) 67.7 H, Lymphocytes (%) (Auto) 15.3 L, Monocytes (%) (Auto) 13.7 H, Eosinophils (%) (Auto) 2.5, Basophils (%) (Auto) 0.3, Neutrophils # (Auto) 5.9, Lymphocytes # (Auto) 1.3 L, Monocytes # (Auto) 1.2 H, Eosinophils # (Auto) 0.2, Basophils # (Auto) 0.0, Calcium Level 7.8 L Vital Signs Date Time Temp Pulse Resp B/P (MAP) Pulse Ox O2 Delivery O2 Flow Rate FiO2 07/29/18 09:21 98 104/73 07/29/18 06:00 98.1 19 99 I&O- Last 24 Hours up to 6 AM 07/29/18 06:00 Intake Total 1560 ml Output Total 4500 ml Balance -2940 ml GME ATTESTATION GME ATTESTATION My faculty preceptor for this patient encounter was physically present during the encounter and was fully available. All aspects of the patient interview, examination, medical decision making process, and medical care plan development were reviewed and approved by the faculty preceptor. The faculty preceptor is aware and concurs with the plan as stated in the body of this note and will attest to such by his/her cosignature. ATTENDING NOTE I have both independently examined this patient as well as reviewed the note I have discussed in detail the findings and plan of treatment as documented in the note. I will continue to follow the patient and offer further guidance to the patients care as necessary during this hospital stay. JEN Rodriguez MD, DO Jul 29, 2018 13:42 ALMA MOORE MD Jul 29, 2018 14:43
[2018-07-29 14:00] VITALS: BP 120/66
[2018-07-29] MEDS: diphenhydrAMINE 25 MG CAP PO PRN ×2 (14:04→22:37)
[2018-07-29] MEDS: ATORVASTATIN 20 MG TAB PO SCH (14:05)
[2018-07-29] MEDS: GABAPENTIN 100 MG CAP PO SCH (14:05)
[2018-07-29] MEDS ORDERED: LIDOCAINE 2% MDV 20 ML VIAL As Ordered ONE (14:56)
[2018-07-29] MEDS ORDERED: fentaNYL 100 MCG/2 ML INJECTION (J3010) As Ordered ONE (14:56)
[2018-07-29] MEDS ORDERED: ISOVUE-300 61% 50ML VIAL (Q9967) As Ordered ONE (14:56)
[2018-07-29] MEDS ORDERED: HEPARIN 1,000 UNITS/ML 10ML VIAL (FOR RADIOLOGY& DIALYSIS ONLY) As Ordered ONE (14:56)
[2018-07-29] MEDS ORDERED: MIDAZOLAM INJ 2 MG/2 ML VIAL (J2250) As Ordered ONE (14:56)
[2018-07-29] MEDS: **VANCO AFTER HD** MISC XX SCH (16:00)
[2018-07-29 17:00] VITALS: BP 138/89
[2018-07-29 17:30] VITALS: BP 104/71
[2018-07-29] MEDS: metroNIDAZOLE (FLAGYL) 500 MG TAB PO SCH ×2 (18:20→22:37)
[2018-07-29] MEDS: WARFARIN SOD 3 MG TAB PO SCH (18:20)
[2018-07-29 18:30] VITALS: BP 127/72
[2018-07-29 22:00] VITALS: BP 118/61
[2018-07-29] MEDS: ACETAMINOPHEN TAB 650MG DOSE (2X325MG) PO PRN (23:48)
[2018-07-30] MEDS: NEPHRO-VIT TAB (NEPHROCAPS) PO SCH (05:33)
[2018-07-30] MEDS: VITAMIN D 1,000 INTERNATIONAL UNITS TABLET PO SCH (05:33)
[2018-07-30] MEDS: MIDODRINE 5 MG TAB PO SCH ×2 (05:33→15:11)
[2018-07-30] MEDS: LACTOBACILLUS ACIDOPHILUS CAP (BACID) PO SCH ×3 (05:33→17:25)
[2018-07-30] MEDS: SODIUM CHLORIDE 0.9% INJ 10 ML SYR IV SCH ×2 (05:33→17:25)
[2018-07-30] MEDS: CYANOCOBALAMIN 500 MCG TAB PO SCH (05:33)
[2018-07-30] MEDS: ASPIRIN 81 MG ENTERIC TAB PO SCH (05:34)
[2018-07-30] MEDS: METOPROLOL TART 25 MG TABLET PO SCH ×2 (05:34→22:01)
[2018-07-30] MEDS: metroNIDAZOLE (FLAGYL) 500 MG TAB PO SCH ×3 (05:34→22:00)
[2018-07-30 06:00] VITALS: BP 113/70
[2018-07-30 06:27] LABS: C REACTIVE PROTEIN QUANTITATIV 5.49 MG/DL (0.00-0.30); VANCOMYCIN RANDOM 15.4 UG/ML
--- NOTE | 2018-07-30 06:46 | IPN ---
DATE: 07/29/2018 Mr. Lobo was seen this afternoon after he came back from angiography done by Dr. Benjamin. He has no complaints. No fever or chills. No nausea, vomiting or diarrhea. He is on IV vancomycin for methicillin-resistant Staphylococcus aureus (MRSA) infection of the left heel. Afebrile, temperature 97.6, pulse 97, respirations 16, blood pressure 127/72, O2 sat 93% on room air. Heart: Normal S1 and S2 with systolic ejection murmur 2/6. Lungs are clear. Abdomen was obese, soft, nontender. Extremities: Left Achilles tendon exposed about 10 cm and above the Achilles tendon there is also an ulceration. There is some serosanguineous drainage on his Optifoam dressing. He has trace pitting edema on both lower extremities. He has AV fistula on the right side with a good thrill. LABORATORY DATA: White count 8.8, hemoglobin 9.3, hematocrit 29, platelets 174, 67% neutrophils, 15% lymphocytes, 14% monocytes. Sodium of 136, potassium 4.1, chloride 99, bicarb 29, BUN 36, creatinine 5.61, glucose 133, calcium 7.8, phosphorus 4.5, magnesium 2, CRP 5.12 and has remained the same over the past week. Wound culture was positive for Group B Strep Streptococcus intermedius, MRSA and Prevotella melaninogenica which is anaerobic. On 07/28/2018, he had a midline insertion for IV access. Today, he had an angiogram and the results are not available. Foot x-ray shows a transmetatarsal osteotomy with no acute bony erosive changes. IMPRESSION: 1. Left foot infection with exposed Achilles tendon most likely started as a decubitus ulcer with cellulitis status post debridement by Dr. Jackson, polymicrobial vickey with MRSA, Group B Streptococcus intermedius and anaerobic Prevotella. The patient is on IV vancomycin and doing better. Will also add anaerobic coverage with Flagyl 500 mg by mouth three times a day for Prevotella. 2. End-stage renal disease on hemodialysis. 3. Peripheral vascular disease. The patient had angiogram today. Results are pending. PLAN: Continue with IV vancomycin and by mouth Flagyl. The case has been discussed Dr. Jackson who does not feel the patient is ready for home discharge. He would rather see him in a group home for his wound to heal. The grandson is at the bedside as well as the . The cannot help with his care because she cannot carry hi9m. The grandson does not feel he gets good fci because he does not listen to his grandson with mobility and helping himself so they felt that group home for rehabilitation will be a better option for him. Continue IV vancomycin while the patient is in the hospital. If he is to be discharged home, he could be switched to by mouth Zyvox 600 mg twice a day with Flagyl 500 mg by mouth three times a day for 10 days. If he goes to the group home, he can receive IV vancomycin after hemodialysis. Please consult patient and family service (PFS) regarding his discharge plan and discussed with Dr. Jackson who knows the patient the best.
[2018-07-30] MEDS: HumaLOG INSULIN (NovoLOG) PER UNIT SC SCH ×4 (07:30→21:00)
[2018-07-30 07:40] LABS: ALBUMIN 2.8 GM/DL (3.2-5.2); CALCIUM LEVEL 7.8 MG/DL (8.8-10.2); CREATININE FOR GFR 7.42 MG/DL (0.70-1.30); GLOMERULAR FILTRATION RATE 9.4 (>42); PHOSPHORUS LEVEL 5.5 MG/DL (2.5-4.9); POTASSIUM SERUM 4.4 MEQ/L (3.5-5.1)
[2018-07-30 09:20] LABS: INR 2.17; PROTHROMBIN TIME 24.6 SECONDS (12.1-14.4)
[2018-07-30] MEDS ORDERED: HEPARIN 1,000 UNITS/ML 10ML VIAL (FOR RADIOLOGY& DIALYSIS ONLY) IV ONE (10:30)
--- NOTE | 2018-07-30 11:22 | IPN ---
DATE: 07/30/2018 Mr. Lobo is seen this morning during hemodialysis. He is feeling about the same and denies any new issues. He had an infected left foot stump for which he already had a wound debridement done by podiatry. He remains on antibiotics and has been afebrile. He denies any nausea, vomiting, dyspnea or chest pain. On physical examination, temperature 97.2 degrees Fahrenheit, heart rate 70 per minute and respiratory rate 18 per minute. Blood pressure 113/70 mmHg and oxygen saturation 100%. Head is atraumatic. Neck is supple and without jugular venous distention (JVD) or thyroid enlargement. Heart sounds are irregular in rhythm and lungs clear to auscultation. Abdomen obese, soft and nontender. Extremities without any cyanosis or clubbing. Left foot stump is wrapped in a dressing. Right arm AV fistula is patent. Neurologically he is at his baseline mentation. Today's labs show sodium 133, potassium 4.4, CO2 26, BUN 53 and creatinine 7.42. Calcium 7.8 and phosphorus 5.5. C-reactive protein is still elevated at 5.49. PROBLEMS: 1. End-stage renal disease. The patient is being dialyzed today and he is tolerating dialysis treatment very well. We will remove about 4 liters of fluid as tolerated. 2. Hyponatremia. Mild hyponatremia is related to end-stage renal disease and will be corrected with dialysis today. No other intervention is indicated. 3. Anemia. The patient has been on Aranesp 200 mcg once a week which will be continued. 4. Infected foot stump. The patient has been on antibiotics including vancomycin and metronidazole. His C-reactive protein remains elevated. He probably will require further debridement. 5. Atrial fibrillation. Ventricular rate is very well controlled and he remains on his chronic therapy.
[2018-07-30] MEDS: GABAPENTIN 100 MG CAP PO SCH (13:25)
[2018-07-30] MEDS: ATORVASTATIN 20 MG TAB PO SCH (13:25)
[2018-07-30 14:00] VITALS: BP 126/72
[2018-07-30] MEDS: VANCOMYCIN HCL 1,000 MG, VIAL MATE ADAPTER 1 EACH in D5W 250 ML IV SCH (15:12)
[2018-07-30] MEDS: **VANCO AFTER HD** MISC XX SCH (15:12)
[2018-07-30] MEDS: SODIUM CHLORIDE 0.9% INJ 10 ML SYR IV PRN (16:32)
--- NOTE | 2018-07-30 16:51 | IPN ---
DATE: 07/30/2018 Patient seen and examined at the bedside. Denies overnight complaints. States no pain in his feet. Vitals are reviewed. He has remained afebrile. Labs are reviewed. White cell count is 8.8. CRP is 5.49. LOWER EXTREMITY EXAMINATION: There is a small cut on his right plantar foot. Patient apparently stepped on a shaving razor earlier today, thus has an infection of posterior leg, tendon exposed. No necrotic tissue or purulence is noted. Some granulation at the periphery of the wound margins. ASSESSMENT: A 73-year-old diabetic male status post incision and drainage and debridement left side. PLAN: Continue current wound dressings. Infectious disease input appreciated. Antibiotics per their recommendations. Patient okay to participate with therapy. DISPOSITION: Discuss with family. Patient strongly recommended to go to senior living or rehabilitation facility, where he can continue receiving high-level care outpatient. Patient, despite having home health, progressively worsened due to his inability to comply with offloading, as well as wound dressings. He does not have adequate family support to appropriately care for this ulceration. We discussed that failure of appropriate wound care only to further infection and likely amputation of his left leg, but continue to monitor the patient.
[2018-07-30] MEDS: WARFARIN SOD 3 MG TAB PO SCH (17:25)
--- NOTE | 2018-07-30 19:18 | IPN ---
DATE: 07/30/2018 Patient seen and examined in dialysis. Denies any chest pain, pressure, or discomfort. Reported generalized weakness. Denies any fevers or chills. VITAL SIGNS: Temperature 97.6, pulse 90, respirations 20, blood pressure 126/72, pulse oximetry 99% on room air. LABORATORY DATA: WBC 8.8, hemoglobin and hematocrit 9.3/29, platelets 174. Chemistry: Sodium 133, potassium 4.4, chloride 97, bicarbonate 26, BUN 53, creatinine 7.42. PHYSICAL EXAMINATION: GENERAL: Patient alert, comfortable in no acute distress. HEENT: Normocephalic, atraumatic. PULMONARY: Bilaterally clear. CARDIAC: Regular, S1, S2. ABDOMEN: Obese. Positive bowel sounds. Nontender. EXTREMITIES: Trace edema in the right lower extremity. No pitting edema on the left lower extremity. Left foot wrapping in place. Clean, dry, and intact. ASSESSMENT AND PLAN: This is a 73-year-old male patient with underlying medical history of end-stage renal disease, insulin-dependent diabetes, poorly controlled, obstructive sleep apnea, on continuous positive airway pressure (CPAP), hypertension, dyslipidemia, atrial fibrillation, on Coumadin, tachycardia-bradycardia syndrome with pacemaker, thoracic aortic aneurysm, presented with chronic diabetic foot ulcer, Achilles tendinitis and cellulitis. 1. Left posterior heel Achilles tendinitis as well as cellulitis, status post debridement by Dr. Jackson. Infectious disease was on consult. Currently on vancomycin and oral Flagyl for anaerobic coverage. Recommend short-term rehabilitation given patient and patient cannot effectively take care of patient's wound at home. Continue vancomycin while patient is inpatient. Discharge regimen includes Zyvox and Flagyl, according to infectious disease, for a total of 10 days. Vice versa, patient could receive vancomycin with dialysis. Patient and family services (PFS) has been on consult. Wound care as per Dr. Jackson. Cultures appreciated. 2. End-stage renal disease. Continue dialysis as per nephrology. Continue current medication. 3. Peripheral vascular disease, status post angiogram by Dr. Benjamin, showing on distal disease that is not amenable to treatment. 4. Insulin-dependent diabetes. Continue current regimen. Followup fingersticks. 5. Atrial fibrillation. Continue Coumadin. Followup INR. Continue metoprolol. 6. Dyslipidemia. Continue statin. 7. Obstructive sleep apnea. Continue CPAP. 8. Obesity, complicating care. 9. Thoracic aortic aneurysm. Outpatient followup. 10. Peripheral neuropathy. Continue current medication. 11. Peripheral vascular disease. Vascular consulted. Status post angiogram with distal disease that is not amenable for treatment. Continue aspirin, statin, Coumadin. 12. Deep vein thrombosis (DVT) prophylaxis. Patient on Coumadin with therapeutic INR. DISPOSITION: Pending social security assessor, final ID recommendations, clinical improvement. Further wound care as podiatry.
[2018-07-30 22:00] VITALS: BP 133/75
[2018-07-30] MEDS: ACETAMINOPHEN TAB 650MG DOSE (2X325MG) PO PRN (22:52)
[2018-07-30] MEDS: diphenhydrAMINE 25 MG CAP PO PRN (22:52)
[2018-07-31 06:00] VITALS: BP 104/58
[2018-07-31] MEDS: SODIUM CHLORIDE 0.9% INJ 10 ML SYR IV SCH ×2 (06:00→17:13)
[2018-07-31 07:10] LABS: HEMATOCRIT 29.2 % (42.0-52.0); HEMOGLOBIN 9.3 g/dl (13.5-17.5); MEAN CORPUSCULAR HEMOGLOBIN 31.6 pg (27.0-33.0); MEAN CORPUSCULAR HGB CONC 31.8 g/dl (32.0-36.5); MEAN CORPUSCULAR VOLUME 99.3 fl (80.0-96.0); PLATELET COUNT, AUTOMATED 170 10^3/uL (150-450); RED BLOOD COUNT 2.94 10^6/uL (4.30-6.10); WHITE BLOOD COUNT 7.6 10^3/uL (4.0-10.0)
[2018-07-31 07:24] LABS: INR 2.26; PROTHROMBIN TIME 25.4 SECONDS (12.1-14.4)
[2018-07-31 07:30] LABS: ALBUMIN 2.9 GM/DL (3.2-5.2); C REACTIVE PROTEIN QUANTITATIV 5.53 MG/DL (0.00-0.30); CREATININE FOR GFR 5.5 MG/DL (0.70-1.30); GLOMERULAR FILTRATION RATE 13.3 (>42); MAGNESIUM LEVEL 1.9 MG/DL (1.8-2.4); PHOSPHORUS LEVEL 4.3 MG/DL (2.5-4.9); POTASSIUM SERUM 4.2 MEQ/L (3.5-5.1)
[2018-07-31] MEDS: LEVEMIR (INSULIN DETEMIR) 1 UNITS/0.01ML SC SCH (09:39)
[2018-07-31] MEDS: NEPHRO-VIT TAB (NEPHROCAPS) PO SCH (09:40)
[2018-07-31] MEDS: ASPIRIN 81 MG ENTERIC TAB PO SCH (09:40)
[2018-07-31] MEDS: metroNIDAZOLE (FLAGYL) 500 MG TAB PO SCH ×3 (09:40→22:23)
[2018-07-31] MEDS: HumaLOG INSULIN (NovoLOG) PER UNIT SC SCH ×4 (09:40→21:00)
[2018-07-31] MEDS: VITAMIN D 1,000 INTERNATIONAL UNITS TABLET PO SCH (09:41)
[2018-07-31] MEDS: MIDODRINE 5 MG TAB PO SCH ×2 (09:41→15:08)
[2018-07-31] MEDS: METOPROLOL TART 25 MG TABLET PO SCH ×2 (09:41→22:24)
[2018-07-31] MEDS: CYANOCOBALAMIN 500 MCG TAB PO SCH (09:41)
[2018-07-31] MEDS: LACTOBACILLUS ACIDOPHILUS CAP (BACID) PO SCH ×3 (09:42→17:13)
--- NOTE | 2018-07-31 11:52 | IPNPDOC ---
Text Note Date of Service The patient was seen on 07/31/18. NOTE Subjective: Patient is a 73-year-old male who presented with a chronic wound on the posterior aspect of his left ankle. Patient had debridement surgery a week ago. Patient's been on IV antibiotics. Patient's disease doing well today. Patient was walking the halls with his walker when I was on the floor. Patient is doing well. Review of systems General: Patient denies fevers HEENT: Patient denies headaches Cardiovascular: Patient denies chest pain Respiratory: Patient denies shortness of breath, cough GI: Patient denies abdominal pain, nausea, vomiting, diarrhea : Patient denies pain or difficulty with urination Neurological: Patient denies numbness or tingling in extremities Extremities: Patient denies swelling or pain in extremities Objective: Vitals: (see below) General: No acute distress, laying comfortably in bed. HEENT: Normocephalic, atraumatic, moist mucous membranes. Neck: No JVD or lymphadenopathy Cardiac: RRR, No murmurs Pulm: Clear to auscultation b/l. No wheezing, rhonchi Abd: NT/ND + BS Ext: Trace pitting edema in bilateral lower extremities. Left ankle and foot is wrapped in a non-soiled dressing. Radial pulses are equal bilaterally. Dorsalis pedis and posterior tibial pulses are diminished bilaterally. Labs (see below) Images: No new imaging has been performed. Assessment/Plan 1. Left posterior heel Achilles wound with cellulitis status post debridement by Dr. Jackson. Infectious disease was on consult. Currently on vancomycin and oral Flagyl for an aerobic coverage. Recommended short-term rehabilitation given patient cannot effectively take care of wound at home. We will continue vancomycin while patient is inpatient. When patient is ready to be discharged patient will be transitioned to oral Zyvox and oral Flagyl.. Patient also re ceived IV vancomycin with dialysis. 2. End-stage renal disease. Continue dialysis as per nephrology. Continue current medications. 3. Peripheral vascular disease, status post angiogram by Dr. Benjamin, showing distal disease that is not amenable to treatment. 4. Insulin-dependent diabetes. Continue current sliding scale and basal insulin coverage. 5. Atrial fibrillation. Continue Coumadin and metoprolol. INR is within therapeutic range. 6. Dyslipidemia. Continue statin. 7. Obstructive sleep apnea. Continue CPAP. 8. Obesity complicating care. 9. Thoracic aortic aneurysm. Outpatient follow-up. 10. Peripheral neuropathy. Continue current medication. DVT prophy: Coumadin Dispo: Pending rehabilitation placement. VS,Fishbone, I+O VS, Fishbone, I+O Laboratory Tests 07/31/18 05:55 Red Blood Count 2.94 L, Mean Corpuscular Volume 99.3 H, Mean Corpuscular Hemoglobin 31.6, Mean Corpuscular Hemoglobin Concent 31.8 L, Red Cell Distribution Width 18.8 H, Anion Gap 8 Vital Signs Date Time Temp Pulse Resp B/P (MAP) Pulse Ox O2 Delivery O2 Flow Rate FiO2 07/31/18 09:41 78 124/77 07/31/18 06:00 97.0 20 96 I&O- Last 24 Hours up to 6 AM 07/31/18 06:00 Intake Total 1080 ml Output Total 4000 ml Balance -2920 ml GME ATTESTATION GME ATTESTATION My faculty preceptor for this patient encounter was physically present during the encounter and was fully available. All aspects of the patient interview, examination, medical decision making process, and medical care plan development were reviewed and approved by the faculty preceptor. The faculty preceptor is aware and concurs with the plan as stated in the body of this note and will attest to such by his/her cosignature. ATTENDING NOTE I have both independently examined this patient as well as reviewed the note I have discussed in detail the findings and plan of treatment as documented in the note. I will continue to follow the patient and offer further guidance to the patients care as necessary during this hospital stay. JEN Rodriguez MD, DO Jul 31, 2018 11:52 ALMA MOORE MD Jul 31, 2018 15:33
[2018-07-31] MEDS: GABAPENTIN 100 MG CAP PO SCH (13:07)
[2018-07-31] MEDS: ATORVASTATIN 20 MG TAB PO SCH (13:07)
[2018-07-31 14:00] VITALS: BP 102/64
[2018-07-31] MEDS: **VANCO AFTER HD** MISC XX SCH (16:00)
[2018-07-31] MEDS: WARFARIN SOD 5 MG TAB PO SCH (17:13)
--- NOTE | 2018-07-31 21:36 | IPN ---
DATE: 07/31/2018 SUBJECTIVE: Patient was seen and examined at the bedside today morning. He is afebrile, hemodynamically stable. He was dialyzed yesterday. There was 4 liters removed. He continues to be on intravenous (IV) antibiotics. He denies any active complaints at this point. OBJECTIVE: Vital signs: Temperature is 97 degrees Fahrenheit, blood pressure 124/77, pulse is 78, respiratory rate of 20, saturating 96% on room air. Intake and output: There is no urine output recorded. Ultrafiltration with hemodialysis was 4 liters yesterday. Weight in the bed scale is 130.8 kg. PHYSICAL EXAMINATION: GENERAL: Patient is awake, alert, oriented times three, sitting up in the bed. No apparent distress. HEAD AND NECK: Head is Normocephalic, atraumatic. Neck is supple. There is no jugular venous distention (JVD). CARDIOVASCULAR: S1, S2, regular rate. No edema of the lower extremity. RESPIRATORY: Chest is clear to auscultation bilaterally. Bilateral equal air entry. No rales or rhonchi. ABDOMEN: Soft. Positive bowel sounds. Nontender. No organomegaly. MUSCULOSKELETAL: Patient has a left transmetatarsal amputation site covered with a dressing. Otherwise normal range of movement of lower extremities. CENTRAL NERVOUS SYSTEM: No focal deficit. Power is 5/5 in all extremities. PSYCHIATRIC: Normal mood and affect. AV ACCESS: He has a right forearm arteriovenous (AV) fistula with positive thrill and bruit. LABORATORY REVIEW: CBC showed a WBC of 7.6, hemoglobin 9.3, platelets are 170. BMP showed sodium 134, potassium 4.2, chloride 97, bicarbonate 29, BUN 32, creatinine is 5.5, phosphorus is 4.3, magnesium 1.9. Albumin 2.9. CURRENT INPATIENT MEDICATIONS: Patient's medications were all reviewed by me. Patient continues to be on vancomycin 1 gram IV with hemodialysis. ASSESSMENT AND PLAN: 1. End-stage renal disease, on hemodialysis. Patient's regular days are Thursday, Thursday, Thursday. He was dialyzed yesterday according to his regular schedule. Next hemodialysis will be on 08/02/2018. 2. Infected left foot transmetatarsal amputation site. Patient is growing multiple organisms in the cultures. He is currently on Flagyl and vancomycin. Rest of the management is as per podiatry and primary team. 3. Anemia and end-stage renal disease. Hemoglobin is 9.3, which is suboptimal. He has been started on Aranesp 200 mcg with hemodialysis. 4. Chronic hypotension. Continue home dose of midodrine 5 mg by mouth twice a day.
[2018-07-31 22:00] VITALS: BP 126/75
[2018-08-01] MEDS: SODIUM CHLORIDE 0.9% INJ 10 ML SYR IV SCH ×2 (05:13→17:40)
[2018-08-01 05:51] LABS: HEMATOCRIT 30.5 % (42.0-52.0); HEMOGLOBIN 9.7 g/dl (13.5-17.5); MEAN CORPUSCULAR HEMOGLOBIN 31.9 pg (27.0-33.0); MEAN CORPUSCULAR HGB CONC 31.8 g/dl (32.0-36.5); MEAN CORPUSCULAR VOLUME 100.3 fl (80.0-96.0); PLATELET COUNT, AUTOMATED 179 10^3/uL (150-450); RED BLOOD COUNT 3.04 10^6/uL (4.30-6.10); WHITE BLOOD COUNT 7.6 10^3/uL (4.0-10.0)
[2018-08-01 06:00] VITALS: BP 137/74
[2018-08-01 06:02] LABS: INR 2.11; PROTHROMBIN TIME 24.1 SECONDS (12.1-14.4)
[2018-08-01 06:12] LABS: ALBUMIN 3.2 GM/DL (3.2-5.2); C REACTIVE PROTEIN QUANTITATIV 6.23 MG/DL (0.00-0.30); CREATININE FOR GFR 7.49 MG/DL (0.70-1.30); GLOMERULAR FILTRATION RATE 9.3 (>42); MAGNESIUM LEVEL 1.9 MG/DL (1.8-2.4); PHOSPHORUS LEVEL 5.7 MG/DL (2.5-4.9); POTASSIUM SERUM 4.7 MEQ/L (3.5-5.1)
[2018-08-01] MEDS: HumaLOG INSULIN (NovoLOG) PER UNIT SC SCH ×4 (09:20→21:00)
[2018-08-01] MEDS: ASPIRIN 81 MG ENTERIC TAB PO SCH (09:21)
[2018-08-01] MEDS: metroNIDAZOLE (FLAGYL) 500 MG TAB PO SCH ×3 (09:21→23:14)
[2018-08-01] MEDS: VITAMIN D 1,000 INTERNATIONAL UNITS TABLET PO SCH (09:21)
[2018-08-01] MEDS: MIDODRINE 5 MG TAB PO SCH ×2 (09:21→17:39)
[2018-08-01] MEDS: NEPHRO-VIT TAB (NEPHROCAPS) PO SCH (09:21)
[2018-08-01] MEDS: LACTOBACILLUS ACIDOPHILUS CAP (BACID) PO SCH ×3 (09:21→17:40)
[2018-08-01] MEDS: CYANOCOBALAMIN 500 MCG TAB PO SCH (09:21)
[2018-08-01] MEDS: METOPROLOL TART 25 MG TABLET PO SCH ×2 (09:24→23:14)
[2018-08-01] MEDS: diphenhydrAMINE 25 MG CAP PO PRN (09:32)
--- NOTE | 2018-08-01 09:40 | REP ---
Chest two views HISTORY: Cough Comparison: 01/28/2018 The right costophrenic angle is not seen. Linear density is present in the right mid lung consistent with scar. The left lung is clear. The cardiac silhouette is enlarged. The pulmonary vasculature is normal in appearance. The bony structure is intact. A cardiac pacemaker is present. IMPRESSION: Cardiomegaly. Electronically Signed by Bienvenido Phillips MD 08/01/2018 09:31 A
[2018-08-01] MEDS: GABAPENTIN 100 MG CAP PO SCH (12:27)
[2018-08-01] MEDS: ATORVASTATIN 20 MG TAB PO SCH (12:27)
[2018-08-01] MEDS ORDERED: IPRATROPIUM 0.5MG/ALBUTEROL 2.5MG INH SOL UD 3ML (DUONEB)(J7620) NEB PRN (13:00)
[2018-08-01] MEDS ORDERED: ONDANSETRON 4MG/2ML VIAL (J2405) IV PRN (13:15)
[2018-08-01] MEDS: IPRATROPIUM 0.5MG/ALBUTEROL 2.5MG INH SOL UD 3ML (DUONEB)(J7620) NEB SCH ×2 (13:38→19:25)
[2018-08-01 14:00] VITALS: BP 135/74
--- NOTE | 2018-08-01 15:46 | IPNPDOC ---
Text Note Date of Service The patient was seen on 08/01/18. NOTE Patient seen and examined in dialysis. Denies any chest pain, pressure, or discomfort. Reported cough with white sputum. Denies any fevers or chills. PHYSICAL EXAMINATION: GENERAL: Patient alert, comfortable in no acute distress. HEENT: Normocephalic, atraumatic. PULMONARY: Bilaterally clear. CARDIAC: Regular, S1, S2. ABDOMEN: Obese. Positive bowel sounds. Nontender. EXTREMITIES: Trace edema in the right lower extremity. No pitting edema on the left lower extremity. Left foot wrapping in place. Clean, dry, and intact. ASSESSMENT AND PLAN: This is a 73-year-old male patient with underlying medical history of end-stage renal disease, insulin-dependent diabetes, poorly controlled, obstructive sleep apnea, on continuous positive airway pressure (CPAP), hypertension, dyslipidemia, atrial fibrillation, on Coumadin, tachycardia-bradycardia syndrome with pacemaker, thoracic aortic aneurysm, presented with chronic diabetic foot ulcer, Achilles tendinitis and cellulitis. 1. Left posterior heel Achilles tendinitis as well as cellulitis, status post debridement by Dr. Jackson. Infectious disease was on consult. Currently on vancomycin and oral Flagyl for anaerobic coverage. Recommend short-term rehabilitation given patient and patient cannot effectively take care of patient's wound at home. Continue vancomycin while patient is inpatient. Discharge regimen includes Zyvox and Flagyl, according to infectious disease, for a total of 10 days. Vice versa, patient could receive vancomycin with dialysis. Patient and family services (PFS) has been on consult. Wound care as per Dr. Jackson. Cultures appreciated. 2. End-stage renal disease. Continue dialysis as per nephrology. Continue current medication. 3. Peripheral vascular disease, status post angiogram by Dr. Benjamin, showing on distal disease that is not amenable to treatment. 4. Insulin-dependent diabetes. Continue current regimen. Followup fingersticks. 5. Atrial fibrillation. Continue Coumadin. Followup INR. Continue metoprolol. 6. Dyslipidemia. Continue statin. 7. Obstructive sleep apnea. Continue CPAP. 8. Obesity, complicating care. 9. Thoracic aortic aneurysm. Outpatient followup. 10. Peripheral neuropathy. Continue current medication. 11. Peripheral vascular disease. Vascular consulted. Status post angiogram with distal disease that is not amenable for treatment. Continue aspirin, statin, Coumadin. 12. Cough Mucinex, Duoneb, cxr chest appreciated. monitor closely 13. Deep vein thrombosis (DVT) prophylaxis. Patient on Coumadin with therapeutic INR. 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 Further wound care as podiatry. STR possible VS,Fishbone, I+O VS, Fishbone, I+O Laboratory Tests 08/01/18 05:11 Red Blood Count 3.04 L, Mean Corpuscular Volume 100.3 H, Mean Corpuscular Hemo globin 31.9, Mean Corpuscular Hemoglobin Concent 31.8 L, Red Cell Distribution Width 18.9 H, Anion Gap 11 Vital Signs Date Time Temp Pulse Resp B/P (MAP) Pulse Ox O2 Delivery O2 Flow Rate FiO2 08/01/18 09:24 87 145/86 08/01/18 06:00 96.9 18 98 I&O- Last 24 Hours up to 6 AM 08/01/18 06:00 Intake Total 1200 ml Output Total 0 ml Balance 1200 ml ALMA MOORE MD Aug 01, 2018 15:46
[2018-08-01] MEDS: **VANCO AFTER HD** MISC XX SCH (16:00)
[2018-08-01] MEDS: WARFARIN SOD 5 MG TAB PO SCH (17:40)
--- NOTE | 2018-08-01 17:47 | IPN ---
DATE: 08/01/2018 SUBJECTIVE: The patient was seen and examined at the bedside. He is afebrile, hemodynamically stable. He reports cough, which is slightly worse today as compared with yesterday and he is bring up some phlegm, otherwise he denies any active complaints. OBJECTIVE: VITAL SIGNS: Temperature is 96.9 degrees Fahrenheit, blood pressure 137/74, pulse is 80, respiratory rate of 18, saturating 98% on room air. Intake and output: There is no urine output recorded. Last hemodialysis was on July 30, 2018. Weight in the bed scale is 131.7 kg. PHYSICAL EXAMINATION: GENERAL: The patient is awake, alert and oriented times three. Morbidly obese, sitting up in the bed in no apparent distress. HEAD AND NECK EXAM: Extraocular muscles intact. He has blindness in one eye. Neck is supple. There is no jugular venous distension (JVD). CARDIOVASCULAR: S1, S2 regular rate. No edema of the bilateral lower extremities. RESPIRATORY: Mildly decreased breath sounds at the bases. Mild expiratory rhonchi, which has scattered bilaterally. ABDOMEN: Soft, positive bowel sounds, obese, nontender. MUSCULOSKELETAL: Left transmetatarsal amputation site covered with a dressing. [employer]: No focal deficit. Power is 5/5 in all extremities. PSYCHIATRIC: Normal mood and affect. LABORATORY REVIEW: Complete blood count (CBC) showed a white blood count (WBC) 7.6, hemoglobin 9.7, platelets of 179. Basic metabolic panel (BMP) showed sodium 134, potassium 4.7, chloride 96, bicarbonate 27, BUN 52, creatinine is 7.4. IMAGING: A chest x-ray done today morning showed cardiomegaly. CURRENT INPATIENT MEDICATIONS: The patient's medications were all reviewed by me. He has been started on DuoNeb nebulization. Otherwise, no change in the medications today as compared with yesterday. ASSESSMENT AND PLAN: 1. End-stage renal disease on hemodialysis. The patient's regular dialysis days are Thursday, Thursday, Thursday. Next hemodialysis session will be tomorrow morning. 2. Anemia and end-stage renal disease. Continue current dose of Aranesp 200 mcg IV with hemodialysis. 3. Infected left foot transmetatarsal site amputation. The patient has polymicrobial infection. Continue current dose of vancomycin and Flagyl. The rest of the management is as per primary team and podiatry.
[2018-08-01 22:00] VITALS: BP 118/72
[2018-08-01] MEDS: guaiFENesin ER 600 MG TAB PO SCH (23:14)
[2018-08-02] MEDS: IPRATROPIUM 0.5MG/ALBUTEROL 2.5MG INH SOL UD 3ML (DUONEB)(J7620) NEB SCH ×4 (03:08→20:26)
[2018-08-02] MEDS: SODIUM CHLORIDE 0.9% INJ 10 ML SYR IV SCH ×2 (05:08→17:21)
[2018-08-02 05:52] LABS: HEMATOCRIT 30.6 % (42.0-52.0); HEMOGLOBIN 9.7 g/dl (13.5-17.5); MEAN CORPUSCULAR HEMOGLOBIN 32.2 pg (27.0-33.0); MEAN CORPUSCULAR HGB CONC 31.7 g/dl (32.0-36.5); MEAN CORPUSCULAR VOLUME 101.7 fl (80.0-96.0); PLATELET COUNT, AUTOMATED 165 10^3/uL (150-450); RED BLOOD COUNT 3.01 10^6/uL (4.30-6.10); WHITE BLOOD COUNT 9.2 10^3/uL (4.0-10.0)
[2018-08-02 06:00] VITALS: BP 129/80
[2018-08-02 06:02] LABS: INR 2.5; PROTHROMBIN TIME 27.5 SECONDS (12.1-14.4)
[2018-08-02 06:19] LABS: ALBUMIN 3.1 GM/DL (3.2-5.2); C REACTIVE PROTEIN QUANTITATIV 5.93 MG/DL (0.00-0.30); CALCIUM LEVEL 7.8 MG/DL (8.8-10.2); CREATININE FOR GFR 8.66 MG/DL (0.70-1.30); GLOMERULAR FILTRATION RATE 7.9 (>42); MAGNESIUM LEVEL 2.1 MG/DL (1.8-2.4); PHOSPHORUS LEVEL 7.1 MG/DL (2.5-4.9); POTASSIUM SERUM 5.2 MEQ/L (3.5-5.1)
[2018-08-02] MEDS: guaiFENesin ER 600 MG TAB PO SCH ×2 (06:32→22:12)
[2018-08-02] MEDS: LACTOBACILLUS ACIDOPHILUS CAP (BACID) PO SCH ×3 (06:32→17:20)
[2018-08-02] MEDS: metroNIDAZOLE (FLAGYL) 500 MG TAB PO SCH ×3 (06:32→22:12)
[2018-08-02] MEDS: MIDODRINE 5 MG TAB PO SCH ×2 (06:32→16:19)
[2018-08-02] MEDS: ASPIRIN 81 MG ENTERIC TAB PO SCH (06:32)
[2018-08-02] MEDS: NEPHRO-VIT TAB (NEPHROCAPS) PO SCH (06:33)
[2018-08-02] MEDS: diphenhydrAMINE 25 MG CAP PO PRN ×2 (06:33→22:32)
[2018-08-02] MEDS: CYANOCOBALAMIN 500 MCG TAB PO SCH (06:33)
[2018-08-02] MEDS: VITAMIN D 1,000 INTERNATIONAL UNITS TABLET PO SCH (06:33)
[2018-08-02] MEDS: METOPROLOL TART 25 MG TABLET PO SCH ×2 (06:35→22:11)
[2018-08-02] MEDS: HumaLOG INSULIN (NovoLOG) PER UNIT SC SCH ×4 (07:30→21:00)
[2018-08-02] MEDS ORDERED: HEPARIN 1,000 UNITS/ML 10ML VIAL (FOR RADIOLOGY& DIALYSIS ONLY) IV ONE (11:15)
[2018-08-02] MEDS: GABAPENTIN 100 MG CAP PO SCH (13:02)
[2018-08-02] MEDS: BENZONATATE 100 MG CAP PO SCH ×2 (13:03→22:12)
[2018-08-02] MEDS: ATORVASTATIN 20 MG TAB PO SCH (13:03)
[2018-08-02] MEDS: (RENVELA) SEVELAMER **CARBONate** 800 MG TAB PO SCH ×2 (13:03→17:20)
[2018-08-02 14:00] VITALS: BP 153/74
[2018-08-02] MEDS: **VANCO AFTER HD** MISC XX SCH (16:00)
[2018-08-02] MEDS: WARFARIN SOD 5 MG TAB PO SCH (16:19)
[2018-08-02] MEDS: VANCOMYCIN HCL 1,000 MG, VIAL MATE ADAPTER 1 EACH in D5W 250 ML IV SCH (16:20)
--- NOTE | 2018-08-02 19:43 | IPNPDOC ---
Text Note Date of Service The patient was seen on 08/02/18. NOTE Patient seen and examined. Denies any chest pain, pressure, or discomfort. Reported cough with white sputum. Denies any fevers or chills. PHYSICAL EXAMINATION: GENERAL: Patient alert, comfortable in no acute distress. HEENT: Normocephalic, atraumatic. PULMONARY: Bilaterally clear. CARDIAC: Regular, S1, S2. ABDOMEN: Obese. Positive bowel sounds. Nontender. EXTREMITIES: Trace edema in the right lower extremity. No pitting edema on the left lower extremity. Left foot wrapping in place. Clean, dry, and intact. ASSESSMENT AND PLAN: This is a 73-year-old male patient with underlying medical history of end-stage renal disease, insulin-dependent diabetes, poorly controlled, obstructive sleep apnea, on continuous positive airway pressure (CPAP), hypertension, dyslipidemia, atrial fibrillation, on Coumadin, tachycardia-bradycardia syndrome with pacemaker, thoracic aortic aneurysm, presented with chronic diabetic foot ulcer, Achilles tendinitis and cellulitis. 1. Left posterior heel Achilles tendinitis as well as cellulitis, status post debridement by Dr. Jackson. Infectious disease was on consult. Currently on vancomycin and oral Flagyl for anaerobic coverage. Recommend short-term rehabilitation given patient and patient cannot effectively take care of patient's wound at home. Continue vancomycin while patient is inpatient. Discharge regimen includes Zyvox and Flagyl, according to infectious disease, for a total of 10 days 08/08. Patient and family services (PFS) has been on consult. Wound care as per Dr. Jackson. Cultures appreciated. 2. End-stage renal disease. Continue dialysis as per nephrology. Continue current medication. 3. Peripheral vascular disease, status post angiogram by Dr. Benjamin, showing on distal disease that is not amenable to treatment. 4. Insulin-dependent diabetes. Continue current regimen. Followup fingersticks. 5. Atrial fibrillation. Continue Coumadin. Followup INR. Continue metoprolol. 6. Dyslipidemia. Continue statin. 7. Obstructive sleep apnea. Continue CPAP. 8. Obesity, complicating care. 9. Thoracic aortic aneurysm. Outpatient followup. 10. Peripheral neuropathy. Continue current medication. 11. Peripheral vascular disease. Vascular consulted. Status post angiogram with distal disease that is not amenable for treatment. Continue aspirin, statin, Coumadin. 12. Cough Mucinex, Duoneb, cxr chest appreciated. monitor closely 13. Deep vein thrombosis (DVT) prophylaxis. Patient on Coumadin with therapeutic INR. DISPOSITION: Pending social sciences chair, final ID recommendations, clinical improvement. Further wound care as podiatry. STR possible VS,Ganeshbone, I+O VS, Ganeshbone, I+O Laboratory Tests 08/02/18 05:07 Red Blood Count 3.01 L, Mean Corpuscular Volume 101.7 H, Mean Corpuscular Hemoglobin 32.2, Mean Corpuscular Hemoglobin Concent 31.7 L, Red Cell Distribution Width 19.2 H, Anion Gap 12 Vital Signs Date Time Temp Pulse Resp B/P (MAP) Pulse Ox O2 Delivery O2 Flow Rate FiO2 08/02/18 14:00 97.5 102 18 153/74 (100) 96 I&O- Last 24 Hours up to 6 AM 08/02/18 06:00 Intake Total 1200 ml Output Total 0 ml Balance 1200 ml ALMA MOORE MD Aug 02, 2018 19:43
[2018-08-02 22:00] VITALS: BP 122/63
[2018-08-03] MEDS: IPRATROPIUM 0.5MG/ALBUTEROL 2.5MG INH SOL UD 3ML (DUONEB)(J7620) NEB SCH ×4 (01:00→20:47)
[2018-08-03] MEDS: SODIUM CHLORIDE 0.9% INJ 10 ML SYR IV SCH ×2 (05:12→17:59)
[2018-08-03 05:28] LABS: HEMATOCRIT 30.2 % (42.0-52.0); HEMOGLOBIN 9.5 g/dl (13.5-17.5); MEAN CORPUSCULAR HGB CONC 31.5 g/dl (32.0-36.5); MEAN CORPUSCULAR VOLUME 101.7 fl (80.0-96.0); PLATELET COUNT, AUTOMATED 147 10^3/uL (150-450); RED BLOOD COUNT 2.97 10^6/uL (4.30-6.10); WHITE BLOOD COUNT 8.2 10^3/uL (4.0-10.0)
[2018-08-03 05:46] LABS: INR 2.66; PROTHROMBIN TIME 28.9 SECONDS (12.1-14.4)
[2018-08-03 06:00] VITALS: BP 131/65
[2018-08-03 06:04] LABS: C REACTIVE PROTEIN QUANTITATIV 6.2 MG/DL (0.00-0.30); CREATININE FOR GFR 6.44 MG/DL (0.70-1.30); GLOMERULAR FILTRATION RATE 11.1 (>42); MAGNESIUM LEVEL 1.9 MG/DL (1.8-2.4); PHOSPHORUS LEVEL 5.5 MG/DL (2.5-4.9); POTASSIUM SERUM 4.3 MEQ/L (3.5-5.1)
--- NOTE | 2018-08-03 07:46 | IPN ---
DATE OF SERVICE: 08/02/2018 SUBJECTIVE: Patient was seen and examined at the bedside today morning. During hemodialysis, he was tolerating the hemodialysis procedure well. He reports that his cough is slightly better today as compared with yesterday. OBJECTIVE: VITAL SIGNS: Temperature is 96.3 degrees Fahrenheit, blood pressure 130/75, pulse is 83, respiratory rate of 20, saturating 97% on room air. INTAKE AND OUTPUT: There is no urine output recorded. Weight on the bed scale was 131.7 kg. PHYSICAL EXAMINATION: GENERAL: Patient is awake, alert, oriented times three, laying in bed, getting hemodialysis done, morbidly obese. HEAD AND NECK EXAM: Extraocular muscles intact. Patient has one eye blindness. Neck is supple. There is no jugular venous distension (JVD). CARDIOVASCULAR: S1, S2, regular rate. No edema of the bilateral lower extremities. RESPIRATORY: Mildly decreased breath sounds at the bases; otherwise, no active rales or rhonchi. ABDOMEN: Soft, obese. Positive bowel sounds. Nontender. MUSCULOSKELETAL: Left transmetatarsal amputation site covered with a dressing. CENTRAL NERVOUS SYSTEM (CHAIN MAKER HAND): No focal deficit. Power is 5/5 in bilateral upper extremities. LAB REVIEW: CBC showed a WBC 9.2, hemoglobin 9.7, platelets of 165. BMP showed sodium 132, potassium 5.2, chloride 96, bicarbonate 24, BUN 68, creatinine is 8.6, phosphorus is 7.1, magnesium 2.1. CURRENT INPATIENT MEDICATIONS: Patient's medications were all reviewed by me. There is no change in medications today as compared with yesterday apart from initiation of DuoNebs. ASSESSMENT AND PLAN: 1. End-stage renal disease, on hemodialysis. Patient is being dialyzed today according to his regular Thursday, Thursday, Thursday schedule. I will try to remove at least 4 liters of fluid during dialysis today. 2. Anemia secondary to end-stage renal disease. Hemoglobin is 9.7, which is slightly suboptimal. Continue current dose of Aranesp 200 mcg with dialysis once a week. 3. Hyperkalemia. Patient is being dialyzed with a 2K bath. Potassium level is expected to improve after that. 4. Left foot transmetatarsal amputation site infection. Patient has polymicrobial infection. He is currently on IV vancomycin with each dialysis, and he is also on Flagyl. 5. Chronic kidney disease, mineral bone disease. Patient has hyperphosphatemia. I am going to start the patient on phosphorus binders.
[2018-08-03] MEDS: HumaLOG INSULIN (NovoLOG) PER UNIT SC SCH ×4 (08:31→21:00)
[2018-08-03] MEDS: metroNIDAZOLE (FLAGYL) 500 MG TAB PO SCH ×3 (08:32→21:55)
[2018-08-03] MEDS: VITAMIN D 1,000 INTERNATIONAL UNITS TABLET PO SCH (08:32)
[2018-08-03] MEDS: LEVEMIR (INSULIN DETEMIR) 1 UNITS/0.01ML SC SCH (08:32)
[2018-08-03] MEDS: NEPHRO-VIT TAB (NEPHROCAPS) PO SCH (08:32)
[2018-08-03] MEDS: BENZONATATE 100 MG CAP PO SCH ×2 (08:32→21:55)
[2018-08-03] MEDS: (RENVELA) SEVELAMER **CARBONate** 800 MG TAB PO SCH ×3 (08:32→17:58)
[2018-08-03] MEDS: LACTOBACILLUS ACIDOPHILUS CAP (BACID) PO SCH ×3 (08:32→17:58)
[2018-08-03] MEDS: MIDODRINE 5 MG TAB PO SCH ×2 (08:33→15:25)
[2018-08-03] MEDS: ASPIRIN 81 MG ENTERIC TAB PO SCH (08:33)
[2018-08-03] MEDS: guaiFENesin ER 600 MG TAB PO SCH ×2 (08:33→21:55)
[2018-08-03] MEDS: CYANOCOBALAMIN 500 MCG TAB PO SCH (08:33)
[2018-08-03] MEDS: METOPROLOL TART 25 MG TABLET PO SCH ×2 (08:36→21:55)
[2018-08-03] MEDS: diphenhydrAMINE 25 MG CAP PO PRN ×2 (08:44→21:55)
--- NOTE | 2018-08-03 12:12 | IPN ---
DATE OF SERVICE: 08/03/2018 SUBJECTIVE: The patient was seen and examined at the bedside today morning. He is sitting up in the bed. He reports his cough is getting better slowly. He still complains of some pain in the left foot. He was dialyzed yesterday. 4 liters of fluid was removed. OBJECTIVE: VITAL SIGNS: Temperature is 98.3 degrees Fahrenheit, blood pressure 121/60, pulse is 96, respiratory rate of 18, saturating 93%. INTAKE AND OUTPUT: Fluid removal with hemodialysis was 4 liters yesterday. Weight in the bed scale is not available. PHYSICAL EXAMINATION: GENERAL: The patient is awake, alert, oriented times three, morbidly obese, sitting up in the in bed, no apparent distress. HEAD AND NECK EXAMINATION: Extraocular muscles intact. The patient has one-eye blindness. Neck is supple. There is no jugular venous distention (JVD). CARDIOVASCULAR: S1, S2, regular rate. No edema of the bilateral lower extremities. RESPIRATORY: Mildly decreased breath sounds at the bases; otherwise, no active rales or rhonchi. ABDOMEN: Soft, obese. Positive bowel sounds. Nontender. MUSCULOSKELETAL: Left transmetatarsal amputation covered with a dressing. CENTRAL NERVOUS SYSTEM (INSPECTOR MISSILE): No focal deficit. Power is 5/5 in all extremities. LABORATORY REVIEW: Complete blood count (CBC) showed a WBC 8.2, hemoglobin 9.5, platelets are 147. Basic metabolic profile (BMP) showed sodium 133, potassium 4.3, chloride 96, bicarbonate 29, BUN 45, creatinine is 6.4, phosphorus is 5.5, C-reactive protein is 6.2. CURRENT INPATIENT MEDICATIONS: The patient's medications were all reviewed by me. He was started on Renvela yesterday. He continues to be on intravenous (IV) vancomycin with hemodialysis. No other change in the medications today as compared with yesterday. ASSESSMENT AND PLAN: 1. End-stage renal disease, on hemodialysis. The patient was dialyzed yesterday according to his Thursday, Thursday, Thursday schedule. Volume status is optimal. Next hemodialysis will be tomorrow. 2. Anemia secondary to end-stage renal disease. Hemoglobin is 9.5, which is still suboptimal. Continue current dose of Aranesp with hemodialysis. 3. Hyperphosphatemia. The patient was started on Renvela with meals. Phosphorus level is improving. 4. Left foot transmetatarsal amputation site infection. The patient is currently on IV vancomycin and oral Flagyl. The rest of the management is as per infectious disease (ID) recommendations.
--- NOTE | 2018-08-03 12:25 | REP ---
Chest two views HISTORY: Cough Comparison: 08/01/2018 Linear density is present in the right mid lung consistent with scar. The left lung is clear. The cardiac silhouette is enlarged. The pulmonary vasculature is normal in appearance. The bony structure is intact. A cardiac pacemaker is present. IMPRESSION: Cardiomegaly. Electronically Signed by Bienvenido Phillips MD 08/03/2018 12:17 P
--- NOTE | 2018-08-03 12:31 | IPN ---
DATE: 08/03/2018 Patient seen and examined. Denies overnight complaints. States he has had some coughing over the last few days. Labs are reviewed. White blood cell count is 8.2. CRP remains elevated at 6.2. LOWER EXTREMITY EXAMINATION: Improved granulation tissue toward the periphery. There is no malodor, no further purulence. Tendon is exposed in central wound. ASSESSMENT: A 73-year-old diabetic male status post infection, abscess, incision and drainage (I and D) left side. PLAN: Will start wound VAC therapy. Cut Adaptic over Achilles tendon. Apply white foam over the tendon, black foam to the remainder of the wound. Change Thursday, Thursday, Thursday. Patient will be a placement issue. While ideally patient will be transferred to group home for continued care depending on coverage, may need to addend wound care treatment. Will follow.
[2018-08-03] MEDS: FLUTICASONE PROP 0.05% NASAL SPRAY 16 GM (FLONASE) NARES SCH (13:09)
[2018-08-03] MEDS: SODIUM CHLORIDE NASAL 0.65% SPRAY BTL (OCEAN) SCH ×3 (13:10→21:56)
[2018-08-03] MEDS: ATORVASTATIN 20 MG TAB PO SCH (13:12)
[2018-08-03] MEDS: MIRALAX *UNIT DOSE* 17GM PACKET PO SCH (13:12)
[2018-08-03] MEDS: GABAPENTIN 100 MG CAP PO SCH (13:12)
[2018-08-03] MEDS: SENOKOT S TAB PO SCH ×2 (13:19→21:55)
--- NOTE | 2018-08-03 15:16 | NUR ---
Patient presents with multiple unsafe feeding strategies which places him at a higher risk of aspiration and choking during PO intake. ST provided education on safe feeding strategies at bedside and will continue in therapy. ST was unable to determine aspiration at bedside due to his baseline cough. MBS is recommended to assess for aspiration w/PO intake and determine safest and least restrictive PO diet recommendations. ST will continue to provide education on safest and least restrictive diet and safe feeding strategies following MBS. Addendum: 08/03/18 at 1518 by MAURILIO EVERETT Amended: Links added.
[2018-08-03] MEDS: **VANCO AFTER HD** MISC XX SCH (15:25)
[2018-08-03] MEDS: WARFARIN SOD 5 MG TAB PO SCH (18:01)
--- NOTE | 2018-08-03 19:31 | IPNPDOC ---
Text Note Date of Service The patient was seen on 08/03/18. NOTE Patient seen and examined. Denies any chest pain, pressure, or discomfort. Reported cough with white sputum. Denies any fevers or chills. PHYSICAL EXAMINATION: GENERAL: Patient alert, comfortable in no acute distress. HEENT: Normocephalic, atraumatic. PULMONARY: Bilaterally clear. CARDIAC: Regular, S1, S2. ABDOMEN: Obese. Positive bowel sounds. Nontender. EXTREMITIES: Trace edema in the right lower extremity. No pitting edema on the left lower extremity. Left foot wrapping in place. Clean, dry, and intact. ASSESSMENT AND PLAN: This is a 73-year-old male patient with underlying medical history of end-stage renal disease, insulin-dependent diabetes, poorly controlled, obstructive sleep apnea, on continuous positive airway pressure (CPAP), hypertension, dyslipidemia, atrial fibrillation, on Coumadin, tachycardia-bradycardia syndrome with pacemaker, thoracic aortic aneurysm, presented with chronic diabetic foot ulcer, Achilles tendinitis and cellulitis. 1. Left posterior heel Achilles tendinitis as well as cellulitis, status post debridement by Dr. Jackson. Infectious disease was on consult. Currently on vancomycin and oral Flagyl for anaerobic coverage. Recommend short-term rehabilitation given patient and patient cannot effectively take care of patient's wound at home vs wound vac. Continue vancomycin while patient is inpatient. Discharge regimen includes Zyvox and Flagyl, according to infectious disease, for a total of 10 days 08/08. Patient and family services (PFS) has been on consult. Wound care as per Dr. Jackson. Cultures appreciated. 2. End-stage renal disease. Continue dialysis as per nephrology. Continue current medication. 3. Peripheral vascular disease, status post angiogram by Dr. Benjamin, showing on distal disease that is not amenable to treatment. 4. Insulin-dependent diabetes. Continue current regimen. Followup fingersticks. 5. Atrial fibrillation. Continue Coumadin. Followup INR. Continue metoprolol. 6. Dyslipidemia. Continue statin. 7. Obstructive sleep apnea. Continue CPAP. 8. Obesity, complicating care. 9. Thoracic aortic aneurysm. Outpatient followup. 10. Peripheral neuropathy. Continue current medication. 11. Peripheral vascular disease. Vascular consulted. Status post angiogram with distal disease that is not amenable for treatment. Continue aspirin, statin, Coumadin. 12. Cough Mucinex, Duoneb, cxr chest appreciated. monitor closely, flonase, swallow eval. 13. Deep vein thrombosis (DVT) prophylaxis. Patient on Coumadin with therapeutic INR. DISPOSITION: Pending protective services social worker, clinical improvement. Further wound care as podiatry. STR possible VS,Fishbone, I+O VS, Fishbone, I+O Laboratory Tests 08/03/18 05:11 Red Blood Count 2.97 L, Mean Corpuscular Volume 101.7 H, Mean Corpuscular Hemoglobin 32.0, Mean Corpuscular Hemoglobin Concent 31.5 L, Red Cell Distribution Width 19.6 H, Anion Gap 8 Vital Signs Date Time Temp Pulse Resp B/P (MAP) Pulse Ox O2 Delivery O2 Flow Rate FiO2 08/03/18 08:36 96 121/60 08/03/18 06:00 98.3 18 93 I&O- Last 24 Hours up to 6 AM 08/03/18 06:00 Intake Total 1910 ml Output Total 4000 ml Balance -2090 ml ALMA MOORE MD Aug 03, 2018 19:31
[2018-08-03 22:00] VITALS: BP 141/86
[2018-08-04] MEDS: IPRATROPIUM 0.5MG/ALBUTEROL 2.5MG INH SOL UD 3ML (DUONEB)(J7620) NEB SCH ×4 (02:00→20:34)
[2018-08-04] MEDS ORDERED: CEPACOL LOZENGE PO PRN (04:15)
[2018-08-04 05:28] LABS: MEAN CORPUSCULAR HEMOGLOBIN 32.6 pg (27.0-33.0); MEAN CORPUSCULAR HGB CONC 32.3 g/dl (32.0-36.5); PLATELET COUNT, AUTOMATED 144 10^3/uL (150-450); RED BLOOD COUNT 3.07 10^6/uL (4.30-6.10)
[2018-08-04 05:41] LABS: INR 3.24; PROTHROMBIN TIME 33.8 SECONDS (12.1-14.4)
[2018-08-04 06:00] VITALS: BP 158/90
[2018-08-04] MEDS: SODIUM CHLORIDE 0.9% INJ 10 ML SYR IV SCH ×2 (06:00→17:35)
[2018-08-04 06:22] LABS: ALBUMIN 3.1 GM/DL (3.2-5.2); C REACTIVE PROTEIN QUANTITATIV 5.61 MG/DL (0.00-0.30); CREATININE FOR GFR 8.08 MG/DL (0.70-1.30); GLOMERULAR FILTRATION RATE 8.5 (>42); MAGNESIUM LEVEL 2.1 MG/DL (1.8-2.4); PHOSPHORUS LEVEL 7.1 MG/DL (2.5-4.9); POTASSIUM SERUM 5.2 MEQ/L (3.5-5.1)
[2018-08-04] MEDS: VITAMIN D 1,000 INTERNATIONAL UNITS TABLET PO SCH (06:26)
[2018-08-04] MEDS: guaiFENesin ER 600 MG TAB PO SCH ×2 (06:26→20:43)
[2018-08-04] MEDS: (RENVELA) SEVELAMER **CARBONate** 800 MG TAB PO SCH ×3 (06:26→17:33)
[2018-08-04] MEDS: ASPIRIN 81 MG ENTERIC TAB PO SCH (06:26)
[2018-08-04] MEDS: BENZONATATE 100 MG CAP PO SCH ×2 (06:26→20:42)
[2018-08-04] MEDS: MIDODRINE 5 MG TAB PO SCH ×2 (06:26→16:08)
[2018-08-04] MEDS: LACTOBACILLUS ACIDOPHILUS CAP (BACID) PO SCH ×3 (06:26→17:33)
[2018-08-04] MEDS: metroNIDAZOLE (FLAGYL) 500 MG TAB PO SCH (06:27)
[2018-08-04] MEDS: CYANOCOBALAMIN 500 MCG TAB PO SCH (06:27)
[2018-08-04] MEDS: NEPHRO-VIT TAB (NEPHROCAPS) PO SCH (06:27)
[2018-08-04] MEDS: SENOKOT S TAB PO SCH ×2 (06:27→20:42)
[2018-08-04] MEDS: SODIUM CHLORIDE NASAL 0.65% SPRAY BTL (OCEAN) SCH ×3 (06:28→20:43)
[2018-08-04] MEDS: FLUTICASONE PROP 0.05% NASAL SPRAY 16 GM (FLONASE) NARES SCH (06:28)
[2018-08-04] MEDS: MIRALAX *UNIT DOSE* 17GM PACKET PO SCH (06:29)
[2018-08-04] MEDS: METOPROLOL TART 25 MG TABLET PO SCH ×2 (06:29→20:43)
[2018-08-04] MEDS: HumaLOG INSULIN (NovoLOG) PER UNIT SC SCH ×4 (07:30→20:48)
--- NOTE | 2018-08-04 10:36 | IPN ---
DATE: 08/03/2018 Irwin is doing fairly well. He is sitting at side of the bed with a wound vacuum-assisted closure (VAC) in place. It was placed today by Dr. Jackson. His complaint is shortness of breath with coughing spells. He has no fever or chills. No nausea, vomiting or diarrhea. On physical exam: Heart: Normal S1, S2. Lungs: Diminished breath sounds at the bases. Abdomen: Morbidly obese, soft, nontender. Extremities: No edema. Left foot transmetatarsal amputation with very dry skin. Wound VAC along the Achilles tendon per Dr. Jackson. There is granulation tissue. No purulence. The tendon is exposed in the central wound. Labs: White count 8.2, hemoglobin 9.5, hematocrit 30.2, platelets 147. Sodium 133, potassium 4.3, chloride 96, bicarbonate 29, BUN 45, creatinine 6.4, glucose 139, calcium 88, magnesium 1.9. CRP 6.2, which has remained elevated around 5-6 in the past 10 days. Wound culture had Group B strep, MRSA Streptococcus and Prevotella. Patient on intravenous (IV) vancomycin and metronidazole. IMPRESSION: 1. Polymicrobial abscess of the left foot with exposed Achilles tendon status post debridement with slow improvement. 2. End-stage renal disease, on hemodialysis. 3. Peripheral vascular disease status post angiogram. PLAN: While the patient is in the hospital, I will switch his oral Flagyl to Zosyn for better anaerobic coverage and beta lactam coverage is a better choice for the Group B strep and strep intermedius especially that his CRP remains elevated. If the patient is being discharged, then I agree with oral Zyvox and Flagyl.
[2018-08-04] MEDS ORDERED: HEPARIN 1,000 UNITS/ML 10ML VIAL (FOR RADIOLOGY& DIALYSIS ONLY) IV ONE (11:15)
[2018-08-04] MEDS: ATORVASTATIN 20 MG TAB PO SCH (13:57)
[2018-08-04] MEDS: GABAPENTIN 100 MG CAP PO SCH (13:58)
[2018-08-04] MEDS: PIPERACILLIN/TAZOBACTAM SOD 2.25 GM in D5W MINI-BAG PLUS 50 ML IV SCH ×2 (13:59→23:49)
[2018-08-04 14:00] VITALS: BP 140/86
[2018-08-04] MEDS: diphenhydrAMINE 25 MG CAP PO PRN (14:07)
[2018-08-04] MEDS ORDERED: BARIUM SULFATE 700 MG TABLET (E-Z-DISK) As Ordered ONE (14:16)
[2018-08-04] MEDS ORDERED: VARIBAR NECTAR 40% w/v 240ML SUSP BTL As Ordered ONE (14:16)
[2018-08-04] MEDS ORDERED: VARIBAR PUDDING 40% w/v 230ML TUBE As Ordered ONE (14:16)
[2018-08-04] MEDS ORDERED: E-Z-PAQUE 96% w/w SUSP 176GM BTL As Ordered ONE (14:16)
--- NOTE | 2018-08-04 15:25 | IPN ---
DATE: 08/04/2018 SUBJECTIVE: Patient was seen and examined at the beside this morning getting hemodialysis. He is tolerating the hemodialysis procedure well. Patient got the wound VAC on the left transmetatarsal amputation site. He denies any fevers and chills at this point. OBJECTIVE: VITAL SIGNS: Temperature 97.4 degrees Fahrenheit, blood pressure 158/90, pulse 106, respiratory rate of 20 saturating 94% in room air. Intake and output: There is no urine output recorded. Weight on the bed scale is not available. PHYSICAL EXAMINATION: GENERAL: Patient is awake, alert, oriented times three, ,morbidly obese laying in bed getting hemodialysis done. HEAD/NECK: Patient has one-eye blindness. Mucous membrane are moist. Neck is supple. There is no jugular venous distention (JVD). CARDIOVASCULAR: S1, S2, regular rate. No edema of the bilateral lower extremities. RESPIRATORY: Chest is clear to auscultation bilaterally. Bilaterally fair air entry. No rales or rhonchi. ABDOMEN: Soft. Obese, positive bowel sounds. Nontender. MUSCULOSKELETAL: Left transmetatarsal amputation site is covered with wound VAC. CENTRAL NERVOUS SYSTEM ( IN STORE MARKETING ASSOCIATE): No focal deficit. Power is 5/5 in all extremities. LAB REVIEW: CBC showed a WBC 9, hemoglobin 10, platelets 144, INR 3.2. BMP showed sodium 133, potassium 5.2, chloride 96, bicarbonate 26, BUN 64, creatinine is 8, phosphorus 7.1. IMAGING: A repeat chest x-ray was done yesterday which showed cardiomegaly. CURRENT INPATIENT MEDICATIONS: Patient's medications are all reviewed by me. He is currently on IV Zosyn along with vancomycin. No other change in the medications today. Flagyl has been stopped. Warfarin dose has been changed to 4 mm daily. ASSESSMENT/PLAN: 1. End-stage disease on hemodialysis: Patient is being dialyzed according to his regular Thursday, Thursday, Thursday schedule. I will try to remove at least 4 liters of fluid during dialysis today. 2. Anemia secondary to end-stage renal disease: Hemoglobin is 10, which is optimal. Continue current dose of Aranesp. 3. Hyperkalemia: It is secondary to renal failure. He is being dialysis with a 2K bath. Calcium level is expected to improve. 4. Left foot transmetatarsal amputation site infection: The patient has poly micro-organ infection. He was on IV vancomycin and oral Flagyl which has been changed to IV vancomycin and IV Zosyn because of persistently elevated CRP. Patient also has a wound VAC right now.
[2018-08-04] MEDS: SODIUM CHLORIDE 0.9% INJ 10 ML SYR IV PRN (15:30)
[2018-08-04] MEDS: **VANCO AFTER HD** MISC XX SCH (16:00)
[2018-08-04] MEDS: VANCOMYCIN HCL 1,000 MG, VIAL MATE ADAPTER 1 EACH in D5W 250 ML IV SCH (16:08)
--- NOTE | 2018-08-04 16:14 | NUR ---
Patient was referred for Modified Barium swallowing assessment due to chronic coughing throughout his bedside evaluation making differential diagnosis difficult. Swallow presented as adequate. Study is unremarkable. Recommend: Continue regular solids and regular thin liquids. Meds given 1 at a time. Provide verbal reminders to slow down and take small bites during his meals. ST will follow up with education about safe eating behaviors. Addendum: 08/04/18 at 1617 by JOSEPHINE ENCARNACION [facility] Amended: Links added.
--- NOTE | 2018-08-04 17:21 | REP ---
COOKIE SWALLOW The procedure was performed under the direct supervision of Dr. Bowman. The procedure was performed with Kathi Hwang from speech pathology present. 5 ml aliquots of thin, pudding, mixed fruit, solid and a barium pill were administered. There is no evidence of penetration or aspiration. The detailed report of this examination will be provided by speech pathology. 1.5 minutes of fluoroscopy time was utilized for this procedure. Reviewed by JONATHAN Ramirez 08/04/2018 03:49 P Electronically Signed by Wing Bowman MD 08/04/2018 05:12 P
[2018-08-04 22:00] VITALS: BP 137/67
[2018-08-05] MEDS: IPRATROPIUM 0.5MG/ALBUTEROL 2.5MG INH SOL UD 3ML (DUONEB)(J7620) NEB SCH ×4 (02:04→20:47)
[2018-08-05] MEDS: ACETAMINOPHEN TAB 650MG DOSE (2X325MG) PO PRN (02:57)
[2018-08-05] MEDS: SODIUM CHLORIDE 0.9% INJ 10 ML SYR IV SCH ×2 (04:43→18:11)
[2018-08-05 05:08] LABS: HEMATOCRIT 30.9 % (42.0-52.0); HEMOGLOBIN 9.7 g/dl (13.5-17.5); MEAN CORPUSCULAR HEMOGLOBIN 32.2 pg (27.0-33.0); MEAN CORPUSCULAR HGB CONC 31.4 g/dl (32.0-36.5); MEAN CORPUSCULAR VOLUME 102.7 fl (80.0-96.0); PLATELET COUNT, AUTOMATED 126 10^3/uL (150-450); RED BLOOD COUNT 3.01 10^6/uL (4.30-6.10); WHITE BLOOD COUNT 8.6 10^3/uL (4.0-10.0)
[2018-08-05 05:20] LABS: INR 3.46; PROTHROMBIN TIME 35.6 SECONDS (12.1-14.4)
[2018-08-05 05:37] LABS: ALBUMIN 2.9 GM/DL (3.2-5.2); C REACTIVE PROTEIN QUANTITATIV 5.97 MG/DL (0.00-0.30); CALCIUM LEVEL 7.6 MG/DL (8.8-10.2); CREATININE FOR GFR 5.97 MG/DL (0.70-1.30); GLOMERULAR FILTRATION RATE 12.1 (>42); MAGNESIUM LEVEL 2.1 MG/DL (1.8-2.4); PHOSPHORUS LEVEL 5.6 MG/DL (2.5-4.9); POTASSIUM SERUM 4.3 MEQ/L (3.5-5.1)
[2018-08-05 06:00] VITALS: BP 141/87
[2018-08-05] MEDS: BENZONATATE 100 MG CAP PO SCH ×2 (08:50→21:34)
[2018-08-05] MEDS: LACTOBACILLUS ACIDOPHILUS CAP (BACID) PO SCH ×3 (08:50→18:10)
[2018-08-05] MEDS: MIDODRINE 5 MG TAB PO SCH ×2 (08:50→15:44)
[2018-08-05] MEDS: VITAMIN D 1,000 INTERNATIONAL UNITS TABLET PO SCH (08:50)
[2018-08-05] MEDS: guaiFENesin ER 600 MG TAB PO SCH ×2 (08:50→21:34)
[2018-08-05] MEDS: HumaLOG INSULIN (NovoLOG) PER UNIT SC SCH ×4 (08:50→21:00)
[2018-08-05] MEDS: NEPHRO-VIT TAB (NEPHROCAPS) PO SCH (08:50)
[2018-08-05] MEDS: CYANOCOBALAMIN 500 MCG TAB PO SCH (08:51)
[2018-08-05] MEDS: FLUTICASONE PROP 0.05% NASAL SPRAY 16 GM (FLONASE) NARES SCH (08:51)
[2018-08-05] MEDS: ASPIRIN 81 MG ENTERIC TAB PO SCH (08:51)
[2018-08-05] MEDS: LEVEMIR (INSULIN DETEMIR) 1 UNITS/0.01ML SC SCH (08:51)
[2018-08-05] MEDS: (RENVELA) SEVELAMER **CARBONate** 800 MG TAB PO SCH ×3 (08:51→18:10)
[2018-08-05] MEDS: SENOKOT S TAB PO SCH ×2 (08:52→21:34)
[2018-08-05] MEDS: METOPROLOL TART 25 MG TABLET PO SCH ×2 (08:52→21:34)
[2018-08-05] MEDS: SODIUM CHLORIDE NASAL 0.65% SPRAY BTL (OCEAN) SCH ×3 (08:52→21:35)
[2018-08-05] MEDS: MIRALAX *UNIT DOSE* 17GM PACKET PO SCH (08:52)
[2018-08-05] MEDS: SANTYL OINT 30GM TOP SCH (09:00)
[2018-08-05] MEDS: PIPERACILLIN/TAZOBACTAM SOD 2.25 GM in D5W MINI-BAG PLUS 50 ML IV SCH ×2 (11:49→22:58)
[2018-08-05] MEDS: GABAPENTIN 100 MG CAP PO SCH (11:49)
[2018-08-05] MEDS: ATORVASTATIN 20 MG TAB PO SCH (11:49)
--- NOTE | 2018-08-05 12:46 | IPN ---
DATE OF VISIT: 08/04/2018 The patient was seen and examined, no acute events overnight, reported persistent cough which is unchanged from previous, report of malaise, currently undergoing dialysis. Denies any chest pain, pressure or discomfort. VITAL SIGNS: Temperature 97.4, pulse 90, respiratory rate 18, blood pressure 1450/86, pulse ox 96% on room air. LABORATORY DATA: WBC 9, hemoglobin 10, hematocrit 31, platelets 144. Chemistries: Sodium 132, potassium 5.2, chloride 96, bicarbonate 26, BUN 64, creatinine 8.08. PHYSICAL EXAMINATION: GENERAL: Patient is alert, comfortable in no apparent distress. HEENT: Normocephalic atraumatic. PULMONARY: Bilaterally clear. CARDIAC: Regular, S1, S2. ABDOMEN: Soft, obese, nontender. EXTREMITIES: Trace edema bilateral lower extremities. No edema on the left lower extremity. Left foot wound vacuum assisted closure (VAC) in place. ASSESSMENT AND PLAN: This is a 73-year-old male with an underlying medical history of end-stage renal disease, insulin-dependent diabetes poorly controlled, obstructive sleep apnea on C-PAP, ,hypertension, dyslipidemia, atrial fibrillation on Coumadin, tachybrady syndrome with pacemaker, thoracic aortic aneurysm who presented with chronic diabetic foot ulcer, Achilles tendonitis and cellulitis. PROBLEMS: 1. Left posterior Achilles tendonitis and cellulitis with diabetic foot ulcer, status post debridement by Dr. Jackson. Infectious disease on consult.. The patient is on vancomycin and Flagyl for anaerobic coverage. Potential discharge regimen of Zyvox and Flagyl for a total of 10 days, end date August 08. Followup C-reactive protein. Further recommendation as per infection disease. The patient has a wound vacuum assisted closure as per Dr. Jackson. Advanced wound care, Dr. Weinberg has been on consult. Further recommendations as per Dr. Weinberg. Patient and family services (PFS) has been on consult. The patient cannot be safely discharged home according to Dr. Jackson secondary to wound care. 2. End-stage renal disease. Continue dialysis as per nephrology. Continue current medications. 3. Peripheral vascular disease. Status post angiogram by Dr. Benjamin showing distal disease not amenable for treatment. 4. Insulin-dependent diabetes. Continue current medications. Follow fingersticks. 5. Persistent cough. Mucinex nebulizer treatment. X-rays appreciated. Swallow evaluation, modified cookie has been negative. Possible post nasal drip. Flonase and nasal saline has been ordered. 6. Insulin-dependent diabetes. Continue insulin regimen, adjust as needed. 7. Atrial fibrillation. Continue Coumadin. Followup INR. Continue beta blockers. 8. Dyslipidemia. Continue statin. 9. Obstructive sleep apnea. Encourage C-PAP. 10. Obesity. Complicating care. 11. Thoracic aortic aneurysm. Outpatient followup. 12. Peripheral neuropathy. Continue current medication. 13. Status post angiogram by Dr. Benjamin showing distal disease, not amenable for treatment. Continue aspirin, statin and Coumadin. Deep venous thrombosis (DVT) prophylaxis. The patient is on Coumadin. Followup INR. DISPOSITION: Pending wound care, clinical improvement. Possible short-term rehabilitation.
--- NOTE | 2018-08-05 13:12 | IPN ---
DATE OF SERVICE: 08/05/2018 SUBJECTIVE: The patient was seen and examined at the bedside today morning. He was dialyzed yesterday. He tolerated the hemodialysis procedure well. 4 liters of fluid was removed. He continues to have wound vacuum-assisted closure (VAC) on the left foot. He does report mild persistent cough. Otherwise, he denies any active complaints at this point. OBJECTIVE: VITAL SIGNS: Temperature is 97.8 degrees Fahrenheit, blood pressure 141/87, pulse is 96, respiratory rate of 20, saturating 95% on room air. INTAKE AND OUTPUT: Urine output is not recorded. Ultrafiltration with hemodialysis was 4 liters yesterday. Weight in the bed scale is not available. PHYSICAL EXAMINATION: GENERAL: The patient is awake, alert, oriented times three, sitting up in the bed, no apparent distress. HEAD AND NECK EXAMINATION: Extraocular muscles intact. Pupils equally round and reactive to light. Mucous membranes are moist. Neck is supple. There is no jugular venous distention (JVD). CARDIOVASCULAR: S1, S2, regular rate. No edema of the bilateral lower extremities. RESPIRATORY: Mildly decreased breath sounds at the bases and mild expiratory rhonchi bilaterally at the bases. ABDOMEN: Soft, obese. Positive bowel sounds. Nontender. MUSCULOSKELETAL: Left transmetatarsal amputation site is covered with a wound VAC. CENTRAL NERVOUS SYSTEM ([employer]): No focal deficit. Power is 5/5 in all extremities. LABORATORY REVIEW: Complete blood count (CBC) showed a WBC 8.6, hemoglobin 9.7, platelets are 126. Basic metabolic profile (BMP) showed sodium 132, potassium 4.3, chloride 95, bicarbonate 26, BUN 41, creatinine is 5.9. IMAGING: A cookie swallow, modified barium swallow, was done yesterday. There was no evidence of penetration or aspiration. CURRENT INPATIENT MEDICATIONS: The patient's medications were all reviewed by me. His insulin Levemir dose has been changed to 12 units. No other change in the medications today as compared with yesterday. ASSESSMENT AND PLAN: 1. End-stage renal disease, on hemodialysis. The patient was dialyzed yesterday according to his regular schedule. Next hemodialysis session will be tomorrow as per his Thursday, Thursday, Thursday schedule. 2. Anemia secondary to end-stage renal disease. Hemoglobin is optimal. Continue current dose of Aranesp. 3. Left toe transmetatarsal amputation site infection. The patient has poly micro-organ infection. He is currently on IV vancomycin and Zosyn, as per infectious disease (ID) recommendations. 4. Acute bronchitis. The patient continues to be on DuoNeb nebulizations. He is already on antibiotics, which should cover for any infection. If his symptoms do not improve, then he will be given a low-dose steroid for a few days. He is also on metoprolol 25 mg by mouth twice a day for atrial fibrillation (AFib), which can sometimes contribute to cough and wheezing, as well.
[2018-08-05 14:00] VITALS: BP 147/84
--- NOTE | 2018-08-05 14:02 | IPN ---
DATE: 08/05/2018 Patient is seen and examined at bedside. Denies any new complaints. Not much pain in his foot. Vitals are reviewed. He has remained afebrile. Labs are reviewed. White blood cell count remains at 8.6, CRP is 5.97. Lower extremity examination: Showed improved granulation tissue overlying the periphery of the wound. Tendon remains exposed, but no further necrotic tissue or worsening condition of the tendon. ASSESSMENT: 73-year-old male with posterior leg ulceration with exposed tendon with cellulitis. Continue current antibiotics per infectious disease. Will continue wound VAC. Patient is a placement issue. If wound VAC will preclude him from going to nursing facility will change dressings. Ideally patient will be discharged to a nursing facility for further wound care. He has been sent home previously and has done poorly due to inability to comply with offloading and wound treatments. Care management is on board. Will follow.
[2018-08-05] MEDS: **VANCO AFTER HD** MISC XX SCH (15:27)
[2018-08-05] MEDS: EUCERIN 120GM CREAM TOP SCH ×2 (15:45→21:35)
--- NOTE | 2018-08-05 15:58 | CR ---
DATE OF CONSULTATION: 08/05/2018 CONSULTATION REPORT FOR: Dr. Gomes REASON FOR CONSULTATION: Regarding left lower extremity Achilles tendon wound. 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 The patient is neuropathic and had no idea that he was damaging his foot. This required multiple debridements and eventually ischemic necrosis ensued and he was transferred to the hospital and eventually underwent transmetatarsal amputation. This has healed. The patient had been discharged and has been re-admitted now with a left Achilles tendon wound with exposed necrotic tendon. He was admitted to the hospital on 07/22/2018 for this. Prior treatment had been Adaptic and Telfa with a wrap. The patient is ambulatory and undergoes dialysis three times a week. On the posterior aspect of his right lower extremity just above the calcaneus extending up towards the calf, there is a wound measuring 16.0 cm x 4.0 cm with a wound depth of 0.2 cm. There is exposed desiccated necrotic tendon present. With flexion and extension of the foot, the tendon is seen to move. The borders medial and lateral of the wound shows areas of fibrin slough. The drainage is moderate serosanguineous without odor and there is no evidence of purulent material seen. The leg is edematous. On the right lower extremity, there is a small wound involving the pretibial area measuring 0.6 cm x 0.6 cm with a wound depth of less than 0.1 cm. This shows granulation tissue without exposed bone. Wound edges are open and the periwound shows no erythema, maceration or ischemic change. The right lower extremity shows edema. Wound cultures have been obtained and are positive for methicillin-resistant Staphylococcus aureus (MRSA). The patient is afebrile and shows no evidence of cellulitis involving his left lower extremity where the cultures were obtained. TREATMENT: This tendon is potentially salvageable. However, this would require superficial debridement with curette and scissors and forceps, removing any of the desiccated necrotic Achilles tendon. The tendon should be kept moist with Adaptic. Santyl can be placed on the wound edges were the fibrin slough is but not on the tendon per se. A cover dressing of foam and/or OptiLock should then be placed, secured with a Kerlix and a Tubigrip stocking for mild decompression. The wound involving the right pretibial area can be treated with a foam dressing and a Tubigrip stocking for the right lower extremity. Wound vacuum-assisted closure (VAC) is not indicated at this time and will actually damage the tendon but could be reserved later on if granulation tissue presents. There is no indication for antibiotic therapy as this is a colonized wound. The patient is afebrile and does not show evidence of cellulitis. It is my understanding that the patient will be a patient at the [facility]. As soon as this becomes apparent, please contact our clinic and we will see the patient in followup for debridement. With time and with growth factor, it is possible to produce granulation tissue over the tendon to preserve function. Skin grafting and/or advanced tissue products would be used at a later date if all is successful. NOMI
[2018-08-05] MEDS ORDERED: WARFARIN SOD 4 MG TAB PO SCH (17:00)
[2018-08-05 22:00] VITALS: BP 154/70
--- NOTE | 2018-08-05 23:13 | IPNPDOC ---
Text Note Date of Service The patient was seen on 08/05/18. NOTE SUBJECTIVE: The patient was seen and examined, no acute events overnight, De nies any chest pain, pressure or discomfort. PHYSICAL EXAMINATION: VITAL SIGNS: As below. GENERAL: Patient is alert, comfortable in no apparent distress. HEENT: Normocephalic atraumatic. PULMONARY: Bilaterally clear. CARDIAC: Regular, S1, S2. ABDOMEN: Soft, obese, nontender. EXTREMITIES:Bipedal edema. Skin; there is a 16 cm x 34 cm wound on [place] left leg extending from just above the calcaneum to the calf. There is exposed tendon seen in the wound. Labs And Radiology: Reviewed ASSESSMENT AND PLAN: This is a 73-year-old male with an underlying medical history of end-stage renal disease, insulin-dependent diabetes poorly controlled, obstructive sleep apnea on C-PAP, ,hypertension, dyslipidemia, atrial fibrillation on Coumadin, tachybrady syndrome with pacemaker, thoracic aortic aneurysm who presented with chronic diabetic foot ulcer, Achilles tendonitis and cellulitis. 1. Left posterior Achilles tendonitis and cellulitis with diabetic foot ulcer, status post debridement by Dr. Jackson. Infectious disease on consult.. The patient is on vancomycin and Flagyl for anaerobic coverage. Potential discharge regimen of Zyvox and Flagyl for a total of 10 days, end date August 08. Follow Dr hernandez's advice regarding dressing. No wound vac at present. 2. End-stage renal disease. Continue dialysis as per nephrology. Continue current medications. 3. Peripheral vascular disease. Status post angiogram by Dr. Benjamin showing distal disease not amenable for treatment. 4. Insulin-dependent diabetes. Continue current medications. Follow fingersticks. 5. Persistent cough. Mucinex nebulizer treatment. X-rays appreciated. Swallow evaluation, modified candelaria has been negative. Possible post nasal drip. Flonase and nasal saline has been ordered. 6. Insulin-dependent diabetes. Continue insulin regimen, adjust as needed. 7. Atrial fibrillation. Continue Coumadin. Followup INR. Continue beta blockers. 8. Dyslipidemia. Continue statin. 9. Obstructive sleep apnea. Encourage C-PAP. 10. Obesity. Complicating care. 11. Thoracic aortic aneurysm. Outpatient followup. 12. Peripheral neuropathy. Continue current medication. 13. Status post angiogram by Dr. Benjamin showing distal disease, not amenable for treatment. Continue aspirin, statin and Coumadin. Deep venous thrombosis (DVT) prophylaxis. The patient is on Coumadin. Followup INR. DISPOSITION: To [facility]. VS,Jluis, I+O VS, Jluis, I+O Laboratory Tests 08/05/18 04:50 Red Blood Count 3.01 L, Mean Corpuscular Volume 102.7 H, Mean Corpuscular Hemoglobin 32.2, Mean Corpuscular Hemoglobin Concent 31.4 L, Red Cell Distribution Width 20.1 H, Anion Gap 11 Vital Signs Date Time Temp Pulse Resp B/P (MAP) Pulse Ox O2 Delivery O2 Flow Rate FiO2 08/05/18 21:34 91 138/81 08/05/18 14:00 97.2 22 97 I&O- Last 24 Hours up to 6 AM 08/05/18 06:00 Intake Total 2410 ml Output Total 4000 ml Balance -1590 ml QUAN GARZA MD Aug 05, 2018 23:13
[2018-08-06] MEDS: IPRATROPIUM 0.5MG/ALBUTEROL 2.5MG INH SOL UD 3ML (DUONEB)(J7620) NEB SCH ×4 (02:19→20:58)
[2018-08-06 06:00] VITALS: BP 139/59
[2018-08-06] MEDS: SODIUM CHLORIDE 0.9% INJ 10 ML SYR IV SCH ×2 (06:48→18:02)
[2018-08-06] MEDS: CYANOCOBALAMIN 500 MCG TAB PO SCH (06:50)
[2018-08-06] MEDS: (RENVELA) SEVELAMER **CARBONate** 800 MG TAB PO SCH ×3 (06:50→18:01)
[2018-08-06] MEDS: VITAMIN D 1,000 INTERNATIONAL UNITS TABLET PO SCH (06:50)
[2018-08-06] MEDS: LACTOBACILLUS ACIDOPHILUS CAP (BACID) PO SCH ×3 (06:51→18:01)
[2018-08-06] MEDS: METOPROLOL TART 25 MG TABLET PO SCH ×2 (06:51→21:14)
[2018-08-06] MEDS: MIDODRINE 5 MG TAB PO SCH ×2 (06:51→15:18)
[2018-08-06] MEDS: NEPHRO-VIT TAB (NEPHROCAPS) PO SCH (06:51)
[2018-08-06] MEDS: SENOKOT S TAB PO SCH ×2 (06:52→21:14)
[2018-08-06] MEDS: ASPIRIN 81 MG ENTERIC TAB PO SCH (06:52)
[2018-08-06] MEDS: guaiFENesin ER 600 MG TAB PO SCH ×2 (06:53→21:14)
[2018-08-06] MEDS: BENZONATATE 100 MG CAP PO SCH ×2 (06:53→21:13)
[2018-08-06] MEDS: SODIUM CHLORIDE NASAL 0.65% SPRAY BTL (OCEAN) SCH ×3 (06:54→21:14)
[2018-08-06] MEDS: MIRALAX *UNIT DOSE* 17GM PACKET PO SCH (06:54)
[2018-08-06] MEDS: FLUTICASONE PROP 0.05% NASAL SPRAY 16 GM (FLONASE) NARES SCH (06:55)
[2018-08-06 06:57] LABS: HEMATOCRIT 32.2 % (42.0-52.0); HEMOGLOBIN 10.4 g/dl (13.5-17.5); MEAN CORPUSCULAR HEMOGLOBIN 32.7 pg (27.0-33.0); MEAN CORPUSCULAR HGB CONC 32.3 g/dl (32.0-36.5); MEAN CORPUSCULAR VOLUME 101.3 fl (80.0-96.0); PLATELET COUNT, AUTOMATED 143 10^3/uL (150-450); RED BLOOD COUNT 3.18 10^6/uL (4.30-6.10); WHITE BLOOD COUNT 8.8 10^3/uL (4.0-10.0)
[2018-08-06 07:05] LABS: INR 3.29; PROTHROMBIN TIME 34.2 SECONDS (12.1-14.4)
[2018-08-06 07:23] LABS: ALBUMIN 3.1 GM/DL (3.2-5.2); CALCIUM LEVEL 8.5 MG/DL (8.8-10.2); CREATININE FOR GFR 7.81 MG/DL (0.70-1.30); GLOMERULAR FILTRATION RATE 8.9 (>42); MAGNESIUM LEVEL 2.2 MG/DL (1.8-2.4); PHOSPHORUS LEVEL 7.1 MG/DL (2.5-4.9); POTASSIUM SERUM 4.5 MEQ/L (3.5-5.1); VANCOMYCIN RANDOM 20.3 UG/ML
[2018-08-06] MEDS: HumaLOG INSULIN (NovoLOG) PER UNIT SC SCH ×4 (07:30→21:00)
--- NOTE | 2018-08-06 07:30 | PHACANCOPD ---
PHARMACY VANCOMYCIN DOSING Pt Demographics Demographics Patient Age:73 , Weight:131.700 , Gender: male Adjusted Body Weight Date: 07/27/18, Adjusted Body Weight: Kg Events Past 24 Hours Events Past 24 Hours: YES: Dialysis; NO: Diuretic Therapy, Change in CrCl, Fever, Elevation in WBC, Pending Diagnostics, Pending Procedures, Other Vancomycin Vancomycin Target Ranges: 15-20 mcg/ml Vancomycin Load Y/N: Yes Load Dose Date Time Vancomycin Load Dose: 2g Date: 07/27/18 Time: 1600 Vancomycin Dose Date: 07/27/18. Current Vancomycin Dose: Intermittent Dosing?: No Labs Creatinine Clearance Date:07/27/18. Creatinine Clearance: . Assessment and Plan Maintaining Current Dose?: Yes Reason for dose change: No Dose Change Pharmacist Note Pharmacist Note 08/06/18: Random this AM resulted at 20.3mcg/ml. We will continue current dose of Vanco 1G IV HD. Of note pt is still accumulating. We will continue to monitor and drop dose if pt continues to accumulate. Date: 07/27/18. Pharmacist note: Pt. is a 73 year old male with a diabetic foot infection positive for MRSA and strep. Pt. has been started on Vancomycin. Pt. is also ESRD on dialysis MWF. I have loaded the patient with 2G Vanco with Vanco 1G IV HD to follow. We will continue to follow and adjust dose as needed. CRISTOBAL HERRERA PHARMACY Aug 06, 2018 07:30
[2018-08-06] MEDS: EUCERIN 120GM CREAM TOP SCH ×3 (09:00→21:00)
[2018-08-06] MEDS: SANTYL OINT 30GM TOP SCH (09:00)
[2018-08-06] MEDS ORDERED: HEPARIN 1,000 UNITS/ML 10ML VIAL (FOR RADIOLOGY& DIALYSIS ONLY) IV ONE (10:15)
[2018-08-06] MEDS: PIPERACILLIN/TAZOBACTAM SOD 2.25 GM in D5W MINI-BAG PLUS 50 ML IV SCH (11:00)
[2018-08-06] MEDS: predniSONE 20 MG TAB PO SCH (12:00)
--- NOTE | 2018-08-06 12:42 | IPN ---
DATE OF SERVICE: 08/06/2018 SUBJECTIVE: Patient was seen and examined at the bedside today, morning during hemodialysis procedure. He is tolerating the hemodialysis procedure well. He still reports persistent cough and wheezing which is not improving despite getting nebulizations. He denies any other active complaints. OBJECTIVE: VITAL SIGNS: Temperature is 97.1 degrees Fahrenheit, blood pressure 157/70, pulse is 97, respiratory rate of 20, saturating 96% on room air. INTAKE AND OUTPUT: There is no urine output recorded. Weight in the bed scale is not available. PHYSICAL EXAMINATION: GENERAL: Patient is awake, alert, oriented times three, obese, laying in bed, getting hemodialysis done. HEAD AND NECK EXAM: Patient has a right eye blindness. Neck is supple. There is no jugular venous distention (JVD). CARDIOVASCULAR: S1, S2, regular rate. No edema of the bilateral lower extremities. RESPIRATORY: Decreased breath sounds at the bases and mild expiratory rhonchi bilaterally at the bases. ABDOMEN: Is soft, obese, positive bowel sounds, nontender. MUSCULOSKELETAL: Left transmetatarsal amputation site covered with a dressing and a vacuum-assisted closure (VAC). CENTRAL NERVOUS SYSTEM ([employer]): No focal deficit. Power is 5/5 in all extremities. LAB REVIEW: CBC showed WBC 8.8, hemoglobin 10.4, platelets are 143. BMP showed sodium 133, potassium 4.5, chloride 95, bicarbonate 25, BUN 56, creatinine is 7.8. CURRENT INPATIENT MEDICATIONS: Patient's medications were all reviewed by me. There is no change in the medications today as compared with yesterday. ASSESSMENT AND PLAN: 1. End-stage renal disease, on hemodialysis. Patient is being dialyzed today according to his regular Thursday, Thursday, Thursday schedule. Ultrafiltration goal will be 4 liters as tolerated by his blood pressure. 2. Anemia secondary to end-stage renal disease. Hemoglobin is optimal. Continue current dose of Aranesp. 3. Acute bronchitis. Patient continues to be on DuoNebs. His cough is not improving. I am going to give him 5 days of prednisone 40 mg by mouth daily. 4. Left foot transmetatarsal amputation site infection. Patient has polymicrobial infection. Continue IV vancomycin and Zosyn as per infectious disease (ID) recommendations.
[2018-08-06 14:00] VITALS: BP 132/62
--- NOTE | 2018-08-06 14:42 | IPNPDOC ---
Text Note Date of Service The patient was seen on 08/06/18. NOTE SUBJECTIVE: The patient was seen and examined, no acute events overnight, De nies any chest pain, pressure or discomfort. Getting HD PHYSICAL EXAMINATION: VITAL SIGNS: As below. GENERAL: Patient is alert, comfortable in no apparent distress. HEENT: Normocephalic atraumatic. PULMONARY: Bilaterally clear. CARDIAC: Regular, S1, S2. ABDOMEN: Soft, obese, nontender. EXTREMITIES:Bipedal edema. Skin; there is a 16 cm x 34 cm wound on [facility] left leg extending from just above the calcaneum to the calf. There is exposed tendon seen in the wound. Labs And Radiology: Reviewed ASSESSMENT AND PLAN: This is a 73-year-old male with an underlying medical history of end-stage renal disease, insulin-dependent diabetes poorly controlled, obstructive sleep apnea on C-PAP, ,hypertension, dyslipidemia, atrial fibrillation on Coumadin, tachybrady syndrome with pacemaker, thoracic aortic aneurysm who presented with chronic diabetic foot ulcer, Achilles tendonitis and cellulitis. 1. Left posterior Achilles tendonitis and cellulitis with diabetic foot ulcer, status post debridement by Dr. Jackson. Infectious disease on consult.. The patient is on vancomycin and Flagyl for anaerobic coverage. Potential discharge regimen of Zyvox and Flagyl for a total of 10 days, end date of antibiotics August 08. Patient will probably finish his antibiotics before discharge as [facility] is still on isolation precautions. Follow Dr hernandez's advice regarding dressing. No wound vac at present. 2. End-stage renal disease. Continue dialysis as per nephrology. Continue current medications. 3. Peripheral vascular disease. Status post angiogram by Dr. Benjamin showing distal disease not amenable for treatment. 4. Insulin-dependent diabetes. Continue current medications. Follow fingersticks. 5. Persistent cough. Mucinex nebulizer treatment. X-rays appreciated. Swallow evaluation, modified candelaria has been negative. Possible post nasal drip. Flonase and nasal saline has been ordered. 6. Insulin-dependent diabetes. Continue insulin regimen, adjust as needed. 7. Atrial fibrillation. Continue Coumadin. Followup INR. Continue beta blockers. 8. Dyslipidemia. Continue statin. 9. Obstructive sleep apnea. Encourage C-PAP. 10. Obesity. Complicating care. 11. Thoracic aortic aneurysm. Outpatient followup. 12. Peripheral neuropathy. Continue current medication. 13. Status post angiogram by Dr. Benjamin showing distal disease, not amenable for treatment. Continue aspirin, statin and Coumadin. Deep venous thrombosis (DVT) prophylaxis. The patient is on Coumadin. Followup INR. DISPOSITION: To [facility] when bed is available. VS,Fishbone, I+O VS, Fishbone, I+O Laboratory Tests 08/06/18 06:40 Red Blood Count 3.18 L, Mean Corpuscular Volume 101.3 H, Mean Corpuscular Hemoglobin 32.7, Mean Corpuscular Hemoglobin Concent 32.3, Red Cell Distribution Width 20.3 H, Anion Gap 13 Vital Signs Date Time Temp Pulse Resp B/P (MAP) Pulse Ox O2 Delivery O2 Flow Rate FiO2 08/06/18 06:51 97 157/70 08/06/18 06:00 97.1 20 96 I&O- Last 24 Hours up to 6 AM 08/06/18 06:00 Intake Total 1440 ml Output Total 0 ml Balance 1440 ml QUAN GARZA MD Aug 06, 2018 14:42
[2018-08-06] MEDS: **VANCO AFTER HD** MISC XX SCH (15:18)
[2018-08-06] MEDS: ATORVASTATIN 20 MG TAB PO SCH (15:18)
[2018-08-06] MEDS: GABAPENTIN 100 MG CAP PO SCH (15:18)
[2018-08-06] MEDS: VANCOMYCIN HCL 1,000 MG, VIAL MATE ADAPTER 1 EACH in D5W 250 ML IV SCH (15:20)
[2018-08-06] MEDS ORDERED: WARFARIN SOD 3 MG TAB PO SCH (17:00)
--- NOTE | 2018-08-06 18:11 | IPN ---
DATE: 08/06/2018 My attending on this case is Dr. Maddy Kam. SUBJECTIVE: The patient was seen and examined this morning at bedside, resting comfortably. He has no complaints this morning. He is tolerating his meals. He was evaluated by Dr. Weinberg yesterday who gave his recommendations for discontinuing antibiotics and for wound care. He denies any fevers, chills, night sweats, nausea, vomiting, diarrhea. He does have coughing spells and some shortness of breath but nothing changed from baseline. LABORATORY DATA: WBC 8.8, hemoglobin 10.4, hematocrit 32.2, platelets 143. Chemistries: Sodium 133, potassium 4.5, chloride 95, carbon dioxide 25, anion gap 13, BUN 56, creatinine 7.81, fasting glucose 98, calcium 8.5, phosphorus 7.1, albumin 3.1. PHYSICAL EXAMINATION: Vital Signs: Temperature 97.2, pulse 112, respirations 120, blood pressure 132/62 (85), pulse oximetry 94% on room air. General: This is a pleasant gentleman who does not appear in acute distress, laying comfortably on the bed, appropriately answering questions. Cardiac: Regular, S1, S2 sounds. No audible murmurs. Pulmonary: Clear to auscultate bilaterally. No rhonchi or rales. Abdomen: Soft, nontender, obese abdomen but positive bowel sounds in all four quadrants. Extremities: No lower extremity edema. Left foot metatarsal amputation with very dry skin in the lower stump. Wound on the left lower extremity, posterior aspect, shows exposed tendon with serosanguineous discharge, no pus, no warmth, good granulation tissue in the edges. No wound VAC was in place. Dressing was changed at the end. Wound cultures have Group B Strep, Methicillin-resistant Staphylococcus aureus (MRSA), Streptococcus, and Prevotella. He was on IV vancomycin and metronidazole. IMPRESSION: 1. Polymicrobial abscess of the left foot with exposed Achilles tendon, status post debridement with slow improvement. 2. End-stage renal disease, on hemodialysis. 3. Peripheral vascular disease, status post angiogram. PLAN: The patient had a teleconference with Dr. Weinberg the day prior, who recommended wound changes and to discontinue with IV antibiotics. The tissue appears to be healing appropriately. I am okay with discontinuing the IV antibiotics today, and we can watch him clinically in the next 24-48 hours to see whether the patient continues to improve clinically. My faculty preceptor for this patient encounter was physically present during the encounter and was fully available. All aspects of the patient interview, examination, medical decision making process, and medical care plan development were reviewed and approved by the faculty preceptor. The faculty preceptor is aware and concurs with the plan as stated in the body of this note and will attest to such by his/her cosignature.
[2018-08-06 22:00] VITALS: BP 128/78
[2018-08-07] MEDS: IPRATROPIUM 0.5MG/ALBUTEROL 2.5MG INH SOL UD 3ML (DUONEB)(J7620) NEB SCH ×4 (02:33→19:50)
[2018-08-07] MEDS: SODIUM CHLORIDE 0.9% INJ 10 ML SYR IV SCH ×2 (05:21→18:25)
[2018-08-07 06:00] VITALS: BP 147/80
[2018-08-07] MEDS: LEVEMIR (INSULIN DETEMIR) 1 UNITS/0.01ML SC SCH (08:14)
[2018-08-07] MEDS: HumaLOG INSULIN (NovoLOG) PER UNIT SC SCH ×4 (08:14→21:41)
[2018-08-07] MEDS: VITAMIN D 1,000 INTERNATIONAL UNITS TABLET PO SCH (08:15)
[2018-08-07] MEDS: BENZONATATE 100 MG CAP PO SCH ×2 (08:15→21:40)
[2018-08-07] MEDS: CYANOCOBALAMIN 500 MCG TAB PO SCH (08:15)
[2018-08-07] MEDS: MIDODRINE 5 MG TAB PO SCH ×2 (08:15→16:41)
[2018-08-07] MEDS: NEPHRO-VIT TAB (NEPHROCAPS) PO SCH (08:15)
[2018-08-07] MEDS: predniSONE 20 MG TAB PO SCH (08:16)
[2018-08-07] MEDS: LACTOBACILLUS ACIDOPHILUS CAP (BACID) PO SCH ×3 (08:16→18:22)
[2018-08-07] MEDS: ASPIRIN 81 MG ENTERIC TAB PO SCH (08:16)
[2018-08-07] MEDS: guaiFENesin ER 600 MG TAB PO SCH ×2 (08:16→21:40)
[2018-08-07] MEDS: (RENVELA) SEVELAMER **CARBONate** 800 MG TAB PO SCH ×3 (08:16→18:22)
[2018-08-07] MEDS: SODIUM CHLORIDE NASAL 0.65% SPRAY BTL (OCEAN) SCH ×3 (08:17→21:42)
[2018-08-07] MEDS: SENOKOT S TAB PO SCH ×2 (08:17→21:40)
[2018-08-07] MEDS: FLUTICASONE PROP 0.05% NASAL SPRAY 16 GM (FLONASE) NARES SCH (08:18)
[2018-08-07] MEDS: EUCERIN 120GM CREAM TOP SCH ×3 (08:18→21:00)
[2018-08-07] MEDS: MIRALAX *UNIT DOSE* 17GM PACKET PO SCH (08:19)
[2018-08-07] MEDS: SANTYL OINT 30GM TOP SCH (08:29)
[2018-08-07] MEDS: METOPROLOL TART 25 MG TABLET PO SCH ×2 (08:29→21:41)
[2018-08-07 14:00] VITALS: BP 143/89
[2018-08-07] MEDS: ATORVASTATIN 20 MG TAB PO SCH (14:26)
[2018-08-07] MEDS: GABAPENTIN 100 MG CAP PO SCH (14:26)
[2018-08-07] MEDS: **VANCO AFTER HD** MISC XX SCH (16:00)
[2018-08-07] MEDS ORDERED: WARFARIN SOD 2.5 MG TAB PO SCH (17:00)
[2018-08-07 22:00] VITALS: BP 138/85
[2018-08-08] MEDS: IPRATROPIUM 0.5MG/ALBUTEROL 2.5MG INH SOL UD 3ML (DUONEB)(J7620) NEB SCH ×4 (02:00→20:25)
[2018-08-08] MEDS: SODIUM CHLORIDE 0.9% INJ 10 ML SYR IV SCH ×2 (05:31→16:58)
[2018-08-08 05:49] LABS: HEMATOCRIT 30.9 % (42.0-52.0); HEMOGLOBIN 9.9 g/dl (13.5-17.5); MEAN CORPUSCULAR HEMOGLOBIN 32.7 pg (27.0-33.0); PLATELET COUNT, AUTOMATED 129 10^3/uL (150-450); RED BLOOD COUNT 3.03 10^6/uL (4.30-6.10); WHITE BLOOD COUNT 7.6 10^3/uL (4.0-10.0)
[2018-08-08 05:59] LABS: INR 2.37; PROTHROMBIN TIME 26.4 SECONDS (12.1-14.4)
[2018-08-08 06:00] VITALS: BP 142/80
[2018-08-08 06:08] LABS: ALBUMIN 2.9 GM/DL (3.2-5.2); C REACTIVE PROTEIN QUANTITATIV 3.54 MG/DL (0.00-0.30); CALCIUM LEVEL 7.9 MG/DL (8.8-10.2); CREATININE FOR GFR 7.39 MG/DL (0.70-1.30); GLOMERULAR FILTRATION RATE 9.5 (>42); MAGNESIUM LEVEL 2.3 MG/DL (1.8-2.4); PHOSPHORUS LEVEL 7.1 MG/DL (2.5-4.9); POTASSIUM SERUM 4.7 MEQ/L (3.5-5.1)
[2018-08-08] MEDS: VITAMIN D 1,000 INTERNATIONAL UNITS TABLET PO SCH (08:48)
[2018-08-08] MEDS: HumaLOG INSULIN (NovoLOG) PER UNIT SC SCH ×4 (08:48→20:37)
[2018-08-08] MEDS: MIDODRINE 5 MG TAB PO SCH ×2 (08:49→16:56)
[2018-08-08] MEDS: CYANOCOBALAMIN 500 MCG TAB PO SCH (08:49)
[2018-08-08] MEDS: (RENVELA) SEVELAMER **CARBONate** 800 MG TAB PO SCH ×3 (08:49→16:56)
[2018-08-08] MEDS: SENOKOT S TAB PO SCH ×2 (08:49→20:36)
[2018-08-08] MEDS: LACTOBACILLUS ACIDOPHILUS CAP (BACID) PO SCH ×3 (08:49→16:56)
[2018-08-08] MEDS: guaiFENesin ER 600 MG TAB PO SCH ×2 (08:50→20:37)
[2018-08-08] MEDS: METOPROLOL TART 25 MG TABLET PO SCH ×2 (08:50→20:37)
[2018-08-08] MEDS: BENZONATATE 100 MG CAP PO SCH ×2 (08:50→20:37)
[2018-08-08] MEDS: MIRALAX *UNIT DOSE* 17GM PACKET PO SCH (08:53)
[2018-08-08] MEDS: ASPIRIN 81 MG ENTERIC TAB PO SCH (08:54)
[2018-08-08] MEDS: FLUTICASONE PROP 0.05% NASAL SPRAY 16 GM (FLONASE) NARES SCH (08:55)
[2018-08-08] MEDS: SODIUM CHLORIDE NASAL 0.65% SPRAY BTL (OCEAN) SCH ×3 (08:56→20:37)
[2018-08-08] MEDS: SANTYL OINT 30GM TOP SCH (08:57)
[2018-08-08] MEDS: EUCERIN 120GM CREAM TOP SCH ×3 (08:57→20:37)
[2018-08-08] MEDS: predniSONE 20 MG TAB PO SCH (09:00)
--- NOTE | 2018-08-08 09:04 | IPN ---
DATE OF SERVICE: 08/07/2018 The patient seen and examined. Reported cough mildly improved. Denies any chest pain, pressure, or discomfort. Denies any nausea or vomiting. Currently comfortable. VITAL SIGNS: Temperature 97.5, pulse 63, respiration 18, blood pressure 143/89, pulse oximetry 98% on room air. LABORATORY: WBC 8.8, hemoglobin and hematocrit 10.4/32.2, platelets 143. Chemistry: Sodium 133, potassium 4.5, chloride 94, bicarbonate 25, BUN 56, creatinine 7.8. PHYSICAL EXAMINATION: GENERAL: The patient alert, comfortable, in no acute distress. HEENT: Normocephalic atraumatic. PULMONARY: Bilaterally clear. CARDIAC: Regular, S1, S2. ABDOMEN: Soft, nontender. Positive bowel sounds. EXTREMITIES: Trace edema of bilateral lower extremities. SKIN: There is a 16 cm x 34 cm wound on left leg extending from just above the calcaneum to the calf, exposed tendon. ASSESSMENT AND PLAN: This is a 73-year-old -[place] male with underlying medical history of end-stage renal disease, insulin-dependent diabetes poorly controlled, obstructive sleep apnea on continuous positive airway pressure (CPAP), hypertension, dyslipidemia, atrial fibrillation on Coumadin, tachybrady syndrome with pacemaker, thoracic aortic aneurysm, who presented with chronic diabetic foot ulcer, Achilles tendinitis, and cellulitis. PROBLEMS: 1. Left posterior Achilles tendinitis and cellulitis, diabetic foot ulcer, status post debridement by Dr. Jackson. The patient was on vancomycin and Flagyl, which was discontinued by infectious disease. Dr. Weinberg has been consulted for advanced wound care. Likely a rehabilitation placement for further wound care. Will monitor the patient off of antibiotics as per infectious disease. 2 . End-stage renal disease. Dialysis as per nephrology. Continue current medication. 3. Peripheral vascular disease. Status post angiogram by Dr. Benjamin showing distal disease, not amenable for treatment. 4. Insulin-dependent diabetes. Continue current medications. Follow fingersticks. 5. Persistent cough. Mucinex, nebulizer, trial of steroids. Speech and swallow evaluation, modified cookie swallow has been negative. Possible postnasal drip. Flonase and nasal saline has been ordered. Clinically, the patient is a bit improved. 7. Atrial fibrillation. Continue Coumadin. Followup international normalized ratio (INR). Continue beta kajal. 8. Dyslipidemia. Continue statin. 9. Obstructive sleep apnea. Encourage CPAP. 10. Obesity. Complicating care. 11. Thoracic aortic aneurysm. Outpatient followup. 12. Peripheral neuropathy. Continue current medication. 13. Deep venous thrombosis (DVT) prophylaxis. Continue Coumadin. Followup INR. DISPOSITION: Waiting for bed at [facility]. Further recommendations per infectious disease (ID).
[2018-08-08] MEDS: NEPHRO-VIT TAB (NEPHROCAPS) PO SCH (10:13)
[2018-08-08 14:00] VITALS: BP 126/78
[2018-08-08] MEDS: **VANCO AFTER HD** MISC XX SCH (14:00)
[2018-08-08] MEDS: ATORVASTATIN 20 MG TAB PO SCH (14:09)
[2018-08-08] MEDS: GABAPENTIN 100 MG CAP PO SCH (14:09)
[2018-08-08] MEDS: diphenhydrAMINE 25 MG CAP PO PRN (14:09)
--- NOTE | 2018-08-08 14:18 | IPN ---
DATE: 08/07/2018 Patient seen and examined at bedside. Denies any mew complaints. No significant pain in his food. Vital signs are reviewed. He has remained afebrile. Labs are reviewed. White blood cell count is 8.8. CRP was 5.97. Lower extremity examination: Wound is improved from last observation. There is further granulation tissue around the periphery, while in the proximal end of the wound there is some overlying fibrous and biofilm to this tissue. There are some loose portions of the tendon that are desiccated. Majority of the tendon does still appear viable. ASSESSMENT: A 73-year-old male with posterior heel/leg ulcer with exposed tendon. PLAN: Biofilm, fibrous tissue, and nonviable portions of the tendon were debrided at bedside. Continue current dressings. Appreciate Dr. Weinberg's input. Once a bed is available, patient can be discharged to nursing facility with followup with myself and Dr. Weinberg.
--- NOTE | 2018-08-08 14:46 | IPN ---
DATE OF SERVICE: 08/07/2018 SUBJECTIVE: The patient was seen and examined at the bedside today morning. He reports that his cough is getting better. He was dialyzed yesterday. 4.5 liters of fluid was removed. He denies any other active complaints at this time. OBJECTIVE: VITAL SIGNS: Temperature is 97.5 degrees Fahrenheit, blood pressure 143/89, pulse is 63, respiratory rate of 18, saturating 98% on room air. INTAKE AND OUTPUT: Ultrafiltration with hemodialysis was 4.5 liters yesterday. Weight in the bed scale is not available. PHYSICAL EXAMINATION: GENERAL: The patient is awake, alert, oriented times three, morbidly obese, sitting up in the bed, in no apparent distress. HEAD AND NECK EXAMINATION: Extraocular muscles intact. 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 There is no jugular venous distention (JVD). CARDIOVASCULAR: S1, S2, regular rate. No edema of the bilateral lower extremities. RESPIRATORY: Decreased breath sounds at the bases. Otherwise, no active rales or rhonchi. ABDOMEN: Is soft, obese, positive bowel sounds, nontender. MUSCULOSKELETAL: He has left transmetatarsal amputation site ulcer with a dressing, and he is wearing a waffle boot on the right foot. CENTRAL NERVOUS SYSTEM (CHIEF CONSTRUCTION INSPECTOR): No focal deficit. Power is 5/5 in all extremities. LABORATORY REVIEW: Complete blood count (CBC) showed a WBC of 8.8, hemoglobin 10.4, and this was done yesterday. There is no basic metabolic profile (BMP) available from today. CURRENT INPATIENT MEDICATIONS: The patient's medications were all reviewed by me. There is no change in the medications today apart from intravenous (IV) vancomycin and Zosyn that has been stopped. ASSESSMENT AND PLAN: 1. End-stage renal disease, on hemodialysis. The patient was dialyzed yesterday according to his schedule. Next hemodialysis will be on 08/09/2018. 2. Anemia secondary to end-stage renal disease. Hemoglobin level is optimal. Continue current dose of Aranesp. 3. Acute bronchitis. The patient's symptoms are significantly better. Continue current dose of prednisone for a total of 5 days. 4. Left foot infection. The patient had polymicrobial infection. He was on IV antibiotics, which have been stopped. He was seen by wound care. He needs daily wound care.
--- NOTE | 2018-08-08 16:38 | IPNPDOC ---
Text Note Date of Service The patient was seen on 08/08/18. NOTE The patient seen and examined. Reported cough mildly improved. Denies any chest pain, pressure, or discomfort. Denies any nausea or vomiting. Currently comfortable. PHYSICAL EXAMINATION: GENERAL: The patient alert, comfortable, in no acute distress. HEENT: Normocephalic atraumatic. PULMONARY: Bilaterally clear. CARDIAC: Regular, S1, S2. ABDOMEN: Soft, nontender. Positive bowel sounds. EXTREMITIES: Trace edema of bilateral lower extremities. SKIN: There is a 16 cm x 34 cm wound on left leg extending from just above the calcaneum to the calf, exposed tendon. no purulent drain ASSESSMENT AND PLAN: This is a 73-year-old -[place] male with underlying medical history of end-stage renal disease, insulin-dependent diabetes poorly controlled, obstructive sleep apnea on continuous positive airway pressure (CPAP), hypertension, dyslipidemia, atrial fibrillation on Coumadin, tachybrady syndrome with pacemaker, thoracic aortic aneurysm, who presented with chronic diabetic foot ulcer, Achilles tendinitis, and cellulitis. PROBLEMS: 1. Left posterior Achilles tendinitis and cellulitis, diabetic foot ulcer, status post debridement by Dr. Jackson. The patient was on vancomycin and Flagyl, which was discontinued by infectious disease. Dr. Weinberg has been consulted for advanced wound care. Likely a rehabilitation placement for further wound care. Will monitor the patient off of antibiotics as per infectious disease. 2 . End-stage renal disease. Dialysis as per nephrology. Continue current medication. 3. Peripheral vascular disease. Status post angiogram by Dr. Benjamin showing distal disease, not amenable for treatment. 4. Insulin-dependent diabetes. Continue current medications. Follow fingersticks. 5. Persistent cough. Mucinex, nebulizer. Speech and swallow evaluation, modified cookie swallow has been negative. Possible postnasal drip. Flonase and nasal saline has been ordered. Clinically, the patient is a bit improved. taper steroid 7. Atrial fibrillation. Continue Coumadin. Followup international normalized ratio (INR). Continue beta kajal. 8. Dyslipidemia. Continue statin. 9. Obstructive sleep apnea. Encourage CPAP. 10. Obesity. Complicating care. 11. Thoracic aortic aneurysm. Outpatient followup. 12. Peripheral neuropathy. Continue current medication. 13. Deep venous thrombosis (DVT) prophylaxis. Continue Coumadin. Followup INR. DISPOSITION: Waiting for bed at [facility]. Further recommendations per infectious disease (ID). VS,Fishbone, I+O VS, Fishbone, I+O Laboratory Tests 08/08/18 05:29 Red Blood Count 3.03 L, Mean Corpuscular Volume 102.0 H, Mean Corpuscular Hemoglobin 32.7, Mean Corpuscular Hemoglobin Concent 32.0, Red Cell Distribution Width 20.8 H, Anion Gap 11 Vital Signs Date Time Temp Pulse Resp B/P (MAP) Pulse Ox O2 Delivery O2 Flow Rate FiO2 08/08/18 14:00 97.9 98 18 126/78 (94) 94 I&O- Last 24 Hours up to 6 AM 08/08/18 06:00 Intake Total 1600 ml Output Total 0 ml Balance 1600 ml ALMA MOORE MD Aug 08, 2018 16:38
[2018-08-08] MEDS: WARFARIN SOD 3 MG TAB PO SCH (16:57)
[2018-08-08 22:00] VITALS: BP 133/83
[2018-08-09] MEDS: IPRATROPIUM 0.5MG/ALBUTEROL 2.5MG INH SOL UD 3ML (DUONEB)(J7620) NEB SCH ×4 (02:00→20:10)
[2018-08-09] MEDS: SODIUM CHLORIDE 0.9% INJ 10 ML SYR IV SCH ×2 (05:27→17:39)
[2018-08-09 05:40] LABS: HEMATOCRIT 32.7 % (42.0-52.0); HEMOGLOBIN 10.5 g/dl (13.5-17.5); MEAN CORPUSCULAR HEMOGLOBIN 32.6 pg (27.0-33.0); MEAN CORPUSCULAR HGB CONC 32.1 g/dl (32.0-36.5); MEAN CORPUSCULAR VOLUME 101.6 fl (80.0-96.0); PLATELET COUNT, AUTOMATED 143 10^3/uL (150-450); RED BLOOD COUNT 3.22 10^6/uL (4.30-6.10)
[2018-08-09 05:49] LABS: INR 2.17; PROTHROMBIN TIME 24.6 SECONDS (12.1-14.4)
[2018-08-09 06:00] VITALS: BP 142/73
[2018-08-09 06:16] LABS: ALBUMIN 3.1 GM/DL (3.2-5.2); C REACTIVE PROTEIN QUANTITATIV 2.82 MG/DL (0.00-0.30); CALCIUM LEVEL 7.8 MG/DL (8.8-10.2); CREATININE FOR GFR 9.1 MG/DL (0.70-1.30); GLOMERULAR FILTRATION RATE 7.4 (>42); MAGNESIUM LEVEL 2.3 MG/DL (1.8-2.4); PHOSPHORUS LEVEL 8.5 MG/DL (2.5-4.9); POTASSIUM SERUM 4.8 MEQ/L (3.5-5.1)
[2018-08-09] MEDS: CYANOCOBALAMIN 500 MCG TAB PO SCH (06:20)
[2018-08-09] MEDS: NEPHRO-VIT TAB (NEPHROCAPS) PO SCH (06:20)
[2018-08-09] MEDS: LACTOBACILLUS ACIDOPHILUS CAP (BACID) PO SCH ×3 (06:20→17:39)
[2018-08-09] MEDS: ASPIRIN 81 MG ENTERIC TAB PO SCH (06:20)
[2018-08-09] MEDS: (RENVELA) SEVELAMER **CARBONate** 800 MG TAB PO SCH ×3 (06:20→17:39)
[2018-08-09] MEDS: BENZONATATE 100 MG CAP PO SCH ×2 (06:20→23:48)
[2018-08-09] MEDS: VITAMIN D 1,000 INTERNATIONAL UNITS TABLET PO SCH (06:20)
[2018-08-09] MEDS: MIDODRINE 5 MG TAB PO SCH ×2 (06:20→16:24)
[2018-08-09] MEDS: guaiFENesin ER 600 MG TAB PO SCH ×2 (06:20→23:48)
[2018-08-09] MEDS: METOPROLOL TART 25 MG TABLET PO SCH ×2 (06:21→23:48)
[2018-08-09] MEDS: MIRALAX *UNIT DOSE* 17GM PACKET PO SCH (06:21)
[2018-08-09] MEDS: SENOKOT S TAB PO SCH ×2 (06:21→23:48)
[2018-08-09] MEDS: SODIUM CHLORIDE NASAL 0.65% SPRAY BTL (OCEAN) SCH ×3 (06:22→23:50)
[2018-08-09] MEDS: EUCERIN 120GM CREAM TOP SCH ×3 (06:22→23:50)
[2018-08-09] MEDS: FLUTICASONE PROP 0.05% NASAL SPRAY 16 GM (FLONASE) NARES SCH (06:22)
[2018-08-09] MEDS: HumaLOG INSULIN (NovoLOG) PER UNIT SC SCH ×4 (07:37→23:49)
[2018-08-09] MEDS: predniSONE 10 MG TAB PO SCH (07:37)
[2018-08-09] MEDS: SANTYL OINT 30GM TOP SCH (09:00)
--- NOTE | 2018-08-09 10:02 | IPN ---
DATE OF SERVICE: 08/08/2018 SUBJECTIVE: The patient seen and examined this morning eating lunch in no acute distress. Denies any new complaints. Reports that his cough and wheeze are improving. VITAL SIGNS: Temperature 97.9, pulse 98, respiratory rate 18, blood pressure 126/78, saturating 94% on room air. Intake yesterday was 1480. Weight on the be scale today is not recorded. GENERAL: The patient is seen sitting at the edge of the bed legs dangling eating lunch, awake, alert, in no acute distress, morbidly obese. Right eye is blind. There is no appreciable jugular venous distention. Cardiac: S1 and S2. Regular rate. There is 1+ edema in the lower extremities. Lungs show diminished breath sounds at the base. There is no wheeze or rhonchi. Abdomen is soft. There are bowel sounds. There is no tenderness to palpation. Musculoskeletal: Shows both feet are in waffle boots. There is a dressing on the left where he has a transmetatarsal amputation. His right upper extremity fistula has a thrill and bruit. Neurologic: He is oriented times three at baseline mentation. He has a stutter. LABS: White count 7.6, hemoglobin 9.9, platelets 129. Sodium 133, potassium 4.7, CRP 3.5. INPATIENT MEDICATIONS: Reviewed by myself and noted his Coumadin was adjusted. Remainder of medications are unchanged from prior. PROBLEMS: 1. End stage renal disease on hemodialysis on Thursday, Thursday, Thursday schedule. He will be dialyzed tomorrow. Goal fluid removal will be 4-5 liters as tolerated by his hemodynamics. There is mild hypervolemia on exam. His electrolytes are otherwise acceptable. His fistula is in good use. 2. Anemia related to end stage renal disease. Hemoglobin of 9.9, slightly below goal and patient continues on Aranesp. 3. Left foot cellulitis diabetic foot ulcer, followed by podiatry. Antimicrobials discontinued per infectious diseases. Wound care is following as well. The patient is likely to require rehabilitation placement. No leukocytosis and CRP is down trending. 4. Atrial fibrillation. The patient continues on Coumadin, the dose has been adjusted for his INR which is therapeutic. He also continues on low dose beta kajal metoprolol 25 mg by mouth twice a day. In view of hypotension of hemodialysis, he also continues on midodrine 5 mg by mouth twice a day.
[2018-08-09] MEDS ORDERED: HEPARIN 1,000 UNITS/ML 10ML VIAL (FOR RADIOLOGY& DIALYSIS ONLY) IV ONE (11:00)
[2018-08-09] MEDS: GABAPENTIN 100 MG CAP PO SCH (13:27)
[2018-08-09] MEDS: ATORVASTATIN 20 MG TAB PO SCH (13:27)
[2018-08-09 14:00] VITALS: BP 132/78
[2018-08-09] MEDS: **VANCO AFTER HD** MISC XX SCH (15:19)
[2018-08-09] MEDS: WARFARIN SOD 3 MG TAB PO SCH (16:25)
--- NOTE | 2018-08-09 18:05 | IPNPDOC ---
Text Note Date of Service The patient was seen on 08/09/18. NOTE The patient seen and examined. Reported cough mildly improved. Denies any chest pain, pressure, or discomfort. Denies any nausea or vomiting. reported generalized weakness PHYSICAL EXAMINATION: GENERAL: The patient alert, comfortable, in no acute distress. HEENT: Normocephalic atraumatic. PULMONARY: Bilaterally clear. CARDIAC: Regular, S1, S2. ABDOMEN: Soft, nontender. Positive bowel sounds. EXTREMITIES: Trace edema of bilateral lower extremities. SKIN: There is a 16 cm x 34 cm wound on left leg extending from just above the calcaneum to the calf, exposed tendon. no purulent drain ASSESSMENT AND PLAN: This is a 73-year-old -[place] male with underl kiley medical history of end-stage renal disease, insulin-dependent diabetes poorly controlled, obstructive sleep apnea on continuous positive airway pressure (CPAP), hypertension, dyslipidemia, atrial fibrillation on Coumadin, tachybrady syndrome with pacemaker, thoracic aortic aneurysm, who presented with chronic diabetic foot ulcer, Achilles tendinitis, and cellulitis. PROBLEMS: 1. Left posterior Achilles tendinitis and cellulitis, diabetic foot ulcer, status post debridement by Dr. Jackson. The patient was on vancomycin and Flagyl, which was discontinued by infectious disease. Dr. Weinberg has been consulted for advanced wound care. Likely a rehabilitation placement for further wound care. Will monitor the patient off of antibiotics as per infectious disease. 2 . End-stage renal disease. Dialysis as per nephrology. Continue current medication. 3. Peripheral vascular disease. Status post angiogram by Dr. Benjamin showing distal disease, not amenable for treatment. 4. Insulin-dependent diabetes. Continue current medications. Follow fingersticks. 5. Persistent cough. Mucinex, nebulizer. Speech and swallow evaluation, modified cookie swallow has been negative. Possible postnasal drip. Flonase and nasal saline has been ordered. Clinically, the patient is a bit improved. taper steroid 7. Atrial fibrillation. Continue Coumadin. Followup international normalized ratio (INR). Continue beta kajal. 8. Dyslipidemia. Continue statin. 9. Obstructive sleep apnea. Encourage CPAP. 10. Obesity. Complicating care. 11. Thoracic aortic aneurysm. Outpatient followup. 12. Peripheral neuropathy. Continue current medication. 13. Deep venous thrombosis (DVT) prophylaxis. Continue Coumadin. Followup INR. DISPOSITION: Waiting for bed at [facility]. Further recommendations per infectious disease (ID). VS,Fishbone, I+O VS, Fishbone, I+O Laboratory Tests 08/09/18 05:25 Red Blood Count 3.22 L, Mean Corpuscular Volume 101.6 H, Mean Corpuscular Hemoglobin 32.6, Mean Corpuscular Hemoglobin Concent 32.1, Red Cell Distribution Width 20.7 H, Anion Gap 11 Vital Signs Date Time Temp Pulse Resp B/P (MAP) Pulse Ox O2 Delivery O2 Flow Rate FiO2 08/09/18 14:00 97.0 103 18 132/78 (96) 75 I&O- Last 24 Hours up to 6 AM 08/09/18 06:00 Intake Total 1800 ml Output Total 0 ml Balance 1800 ml ALMA MOORE MD Aug 09, 2018 18:05
[2018-08-09 22:00] VITALS: BP 138/84
[2018-08-09] MEDS: diphenhydrAMINE 25 MG CAP PO PRN (23:48)
[2018-08-10] MEDS: IPRATROPIUM 0.5MG/ALBUTEROL 2.5MG INH SOL UD 3ML (DUONEB)(J7620) NEB SCH ×4 (00:31→22:12)
--- NOTE | 2018-08-10 00:37 | IPN ---
DATE OF SERVICE: 08/09/2018 SUBJECTIVE: The patient is seen and examined this morning in the dialysis unit receiving his maintenance treatment. Denies any overnight events or issues and is tolerating the treatment today without any issues. VITAL SIGNS: Temperature 97.9, pulse 95, respiratory rate 20, blood pressure 142/73, saturating 97% on room air. Intake yesterday was 1920. Dialysis today removed 4500. Weight on the bed scale today is not recorded. REVIEW OF SYSTEMS: GENERAL: The patient is seen in the hemodialysis unit receiving his treatment, drowsy but easily arousable, awake, alert, comfortable in no acute distress. The right eye is blind. Neck is supple. He is having mild cough with clear sputum. LUNGS: Show symmetric air entry bilaterally. CARDIAC: Regular S1, S2. ABDOMEN: Abdomen is soft and nontender. There are bowel sounds. EXTREMITIES: The extremities show a wound with dressing on the left foot and trace to 1+ edema bilaterally. The right upper extremity fistula is presently in use. NEUROLOGIC: The patient is interactive, cooperative with physical examination and conversational. LABORATORIES: White count 8.0, hemoglobin 10.5, platelets 143. Sodium 134, potassium 4.8. INPATIENT MEDICATIONS: Reviewed by myself and no change from prior. PROBLEMS: 1. End-stage renal disease on hemodialysis on Thursday, Thursday and Thursday maintenance schedule. The patient is being dialyzed today. He is tolerating fluid removal. Goal 4.5 liters. His electrolytes and his volume status are acceptable. His fistula is in good use. No changes being made to the current prescription. 2. Anemia related to end-stage renal disease. Hemoglobin is 10.5 which is optimal and the patient continues with Aranesp. 3. Left foot cellulitis and diabetic foot ulcer followed by podiatry. Antimicrobial stopped per infectious disease. Wound care is following as well. The patient is for rehabilitation placement. He is status post debridement. He is also status post angiogram. There is no leukocytosis and his C-reactive protein (CRP) has down trended nicely. 4. Atrial fibrillation. The patient continues on beta kajal for rate control and he has a therapeutic INR.
[2018-08-10 06:00] VITALS: BP 137/91
[2018-08-10] MEDS: SODIUM CHLORIDE 0.9% INJ 10 ML SYR IV SCH ×2 (06:04→17:47)
[2018-08-10] MEDS: LEVEMIR (INSULIN DETEMIR) 1 UNITS/0.01ML SC SCH (08:49)
[2018-08-10] MEDS: (RENVELA) SEVELAMER **CARBONate** 800 MG TAB PO SCH ×3 (08:50→17:46)
[2018-08-10] MEDS: NEPHRO-VIT TAB (NEPHROCAPS) PO SCH (08:50)
[2018-08-10] MEDS: CYANOCOBALAMIN 500 MCG TAB PO SCH (08:50)
[2018-08-10] MEDS: predniSONE 10 MG TAB PO SCH (08:50)
[2018-08-10] MEDS: HumaLOG INSULIN (NovoLOG) PER UNIT SC SCH ×4 (08:50→21:00)
[2018-08-10] MEDS: LACTOBACILLUS ACIDOPHILUS CAP (BACID) PO SCH ×3 (08:50→17:47)
[2018-08-10] MEDS: guaiFENesin ER 600 MG TAB PO SCH ×2 (08:50→22:14)
[2018-08-10] MEDS: BENZONATATE 100 MG CAP PO SCH ×2 (08:50→22:13)
[2018-08-10] MEDS: MIDODRINE 5 MG TAB PO SCH ×2 (08:51→16:01)
[2018-08-10] MEDS: ASPIRIN 81 MG ENTERIC TAB PO SCH (08:51)
[2018-08-10] MEDS: SENOKOT S TAB PO SCH ×2 (08:51→22:13)
[2018-08-10] MEDS: VITAMIN D 1,000 INTERNATIONAL UNITS TABLET PO SCH (08:51)
[2018-08-10] MEDS: METOPROLOL TART 25 MG TABLET PO SCH ×2 (08:51→22:14)
[2018-08-10] MEDS: MIRALAX *UNIT DOSE* 17GM PACKET PO SCH (08:51)
[2018-08-10] MEDS: SODIUM CHLORIDE NASAL 0.65% SPRAY BTL (OCEAN) SCH ×3 (08:52→22:15)
[2018-08-10] MEDS: EUCERIN 120GM CREAM TOP SCH ×3 (08:52→22:15)
[2018-08-10] MEDS: FLUTICASONE PROP 0.05% NASAL SPRAY 16 GM (FLONASE) NARES SCH (08:52)
[2018-08-10] MEDS: SANTYL OINT 30GM TOP SCH (09:00)
[2018-08-10 09:03] LABS: HEMOGLOBIN 10.8 g/dl (13.5-17.5); MEAN CORPUSCULAR HEMOGLOBIN 32.7 pg (27.0-33.0); MEAN CORPUSCULAR HGB CONC 31.8 g/dl (32.0-36.5); PLATELET COUNT, AUTOMATED 134 10^3/uL (150-450); WHITE BLOOD COUNT 8.2 10^3/uL (4.0-10.0)
[2018-08-10 09:20] LABS: INR 2.02; PROTHROMBIN TIME 23.2 SECONDS (12.1-14.4)
[2018-08-10 09:22] LABS: ALBUMIN 3.1 GM/DL (3.2-5.2); C REACTIVE PROTEIN QUANTITATIV 2.5 MG/DL (0.00-0.30); CALCIUM LEVEL 8.2 MG/DL (8.8-10.2); CREATININE FOR GFR 6.67 MG/DL (0.70-1.30); GLOMERULAR FILTRATION RATE 10.6 (>42); MAGNESIUM LEVEL 2.1 MG/DL (1.8-2.4); PHOSPHORUS LEVEL 6.5 MG/DL (2.5-4.9); POTASSIUM SERUM 4.1 MEQ/L (3.5-5.1)
[2018-08-10] MEDS: GABAPENTIN 100 MG CAP PO SCH (12:08)
[2018-08-10] MEDS: ATORVASTATIN 20 MG TAB PO SCH (12:08)
[2018-08-10 14:00] VITALS: BP 137/81
--- NOTE | 2018-08-10 15:30 | IPN ---
DATE: 08/10/2018 SUBJECTIVE: Patient is seen and examined this morning at the bedside. Denies any overnight complaints. He tolerated dialysis yesterday with 4.5 liters of fluid removed. VITAL SIGNS: Temperature 98.4, pulse 96, respiratory rate 20, blood pressure 137/91, saturating 97% on room air. Intake yesterday was 1380. Dialysis yesterday removed 4.5 liters. Net negative 3.1 liters. GENERAL: Patient is seen lying in bed, awake, alert, comfortable in no acute distress. Right eye blind. Tongue is moist. Neck is supple. LUNGS: Bilaterally clear. No wheeze or rhonchus. CARDIAC: Irregular, S1, S2. There is 1+ edema in the bilateral lower extremities. ABDOMEN: Soft and nontender. There are bowel sounds. EXTREMITIES: His right upper extremity fistula has thrill and bruit. The left foot has transmetatarsal amputation (TMA) and dressings up to the bar. NEUROLOGIC: Patient is interactive, oriented and conversational. He has a stutter. LABORATORY DATA: White count 8.2, hemoglobin 10.8, platelets 134. Sodium 136, potassium 4.1, magnesium 2.1, CRP 2.5, INR 2.0. INPATIENT MEDICATIONS: Reviewed by myself and no changes noted. PROBLEMS: 1. End-stage renal disease on hemodialysis on Thursday, Thursday, Thursday maintenance schedule. He was dialyzed yesterday and 4.5 liters were removed. There is hypervolemia on examination. We will continue aggressive fluid removal. He is tolerating it well. His electrolytes are acceptable. His fistula is in good use. 2. Anemia related to end-stage renal disease. Hemoglobin is at target and he continues on Aranesp. 3. Atrial fibrillation. Patient continues on beta kajal for rate control and he has a therapeutic international normalized ratio (INR) and continues on Coumadin.
[2018-08-10] MEDS: **VANCO AFTER HD** MISC XX SCH (16:00)
[2018-08-10] MEDS: WARFARIN SOD 3 MG TAB PO SCH (16:01)
[2018-08-10 22:00] VITALS: BP 122/88
[2018-08-10] MEDS: diphenhydrAMINE 25 MG CAP PO PRN (22:13)
--- NOTE | 2018-08-10 22:37 | IPNPDOC ---
Text Note Date of Service The patient was seen on 08/10/18. NOTE The patient seen and examined. Denies any chest pain, pressure, or discomfort. Denies any nausea or vomiting. reported generalized weakness improved PHYSICAL EXAMINATION: GENERAL: The patient alert, comfortable, in no acute distress. HEENT: Normocephalic atraumatic. PULMONARY: Bilaterally clear. CARDIAC: Regular, S1, S2. ABDOMEN: Soft, nontender. Positive bowel sounds. EXTREMITIES: Trace edema of bilateral lower extremities. SKIN: There is a 16 cm x 34 cm wound on left leg extending from just above the calcaneum to the calf, exposed tendon. no purulent drain ASSESSMENT AND PLAN: This is a 73-year-old -[place] male with underlying medical history of end-stage renal disease, insulin-dependent diabetes poorly controlled, obstructive sleep apnea on continuous positive airway pressure (CPAP), hypertension, dyslipidemia, atrial fibrillation on Coumadin, tachybrady syndrome with pacemaker, thoracic aortic aneurysm, who presented with chronic diabetic foot ulcer, Achilles tendinitis, and cellulitis. PROBLEMS: 1. Left posterior Achilles tendinitis and cellulitis, diabetic foot ulcer, status post debridement by Dr. Jackson. The patient was on vancomycin and Flagyl, off antibiotics. Dr. Weinberg has been consulted for advanced wound care. Likely a rehabilitation placement for further wound care. Will monitor the patient off of antibiotics as per infectious disease. 2 . End-stage renal disease. Dialysis as per nephrology. Continue current medication. 3. Peripheral vascular disease. Status post angiogram by Dr. Benjamin showing distal disease, not amenable for treatment. 4. Insulin-dependent diabetes. Continue current medications. Follow fingersticks. 5. Persistent cough. Mucinex, nebulizer. Speech and swallow evaluation, modified cookie swallow has been negative. Possible postnasal drip. Flonase and nasal saline has been ordered. Clinically, the patient is a bit improved. taper steroid 7. Atrial fibrillation. Continue Coumadin. Followup international normalized ratio (INR). Continue beta kajal. 8. Dyslipidemia. Continue statin. 9. Obstructive sleep apnea. Encourage CPAP. 10. Obesity. Complicating care. 11. Thoracic aortic aneurysm. Outpatient followup. 12. Peripheral neuropathy. Continue current medication. 13. Deep venous thrombosis (DVT) prophylaxis. Continue Coumadin. Followup INR. DISPOSITION: Waiting for bed at [facility]. VS,Jluis, I+O VS, Fishbone, I+O Laboratory Tests 08/10/18 08:21 Red Blood Count 3.30 L, Mean Corpuscular Volume 103.0 H, Mean Corpuscular Hemoglobin 32.7, Mean Corpuscular Hemoglobin Concent 31.8 L, Red Cell Distribution Width 21.1 H, Anion Gap 10 Vital Signs Date Time Temp Pulse Resp B/P (MAP) Pulse Ox O2 Delivery O2 Flow Rate FiO2 08/10/18 22:14 89 122/88 08/10/18 14:00 96.7 18 96 I&O- Last 24 Hours up to 6 AM 08/10/18 06:00 Intake Total 1380 ml Output Total 4500 ml Balance -3120 ml ALMA MOORE MD Aug 10, 2018 22:37
[2018-08-11] MEDS: IPRATROPIUM 0.5MG/ALBUTEROL 2.5MG INH SOL UD 3ML (DUONEB)(J7620) NEB SCH ×4 (02:16→20:00)
[2018-08-11] MEDS: SODIUM CHLORIDE 0.9% INJ 10 ML SYR IV SCH ×2 (05:16→17:17)
[2018-08-11 05:33] LABS: HEMATOCRIT 33.8 % (42.0-52.0); HEMOGLOBIN 10.8 g/dl (13.5-17.5); MEAN CORPUSCULAR HEMOGLOBIN 33.1 pg (27.0-33.0); MEAN CORPUSCULAR VOLUME 103.7 fl (80.0-96.0); PLATELET COUNT, AUTOMATED 130 10^3/uL (150-450); RED BLOOD COUNT 3.26 10^6/uL (4.30-6.10); WHITE BLOOD COUNT 8.2 10^3/uL (4.0-10.0)
[2018-08-11 05:42] LABS: INR 1.94; PROTHROMBIN TIME 22.5 SECONDS (12.1-14.4)
[2018-08-11 06:00] VITALS: BP 126/85
[2018-08-11 06:20] LABS: ALBUMIN 3.1 GM/DL (3.2-5.2); C REACTIVE PROTEIN QUANTITATIV 1.92 MG/DL (0.00-0.30); CALCIUM LEVEL 7.6 MG/DL (8.8-10.2); CREATININE FOR GFR 8.07 MG/DL (0.70-1.30); GLOMERULAR FILTRATION RATE 8.5 (>42); MAGNESIUM LEVEL 2.2 MG/DL (1.8-2.4); PHOSPHORUS LEVEL 7.1 MG/DL (2.5-4.9); POTASSIUM SERUM 4.2 MEQ/L (3.5-5.1)
[2018-08-11] MEDS: ASPIRIN 81 MG ENTERIC TAB PO SCH (06:35)
[2018-08-11] MEDS: LACTOBACILLUS ACIDOPHILUS CAP (BACID) PO SCH ×3 (06:35→17:19)
[2018-08-11] MEDS: guaiFENesin ER 600 MG TAB PO SCH ×2 (06:35→21:14)
[2018-08-11] MEDS: predniSONE 10 MG TAB PO SCH (06:36)
[2018-08-11] MEDS: BENZONATATE 100 MG CAP PO SCH ×2 (06:36→21:14)
[2018-08-11] MEDS: (RENVELA) SEVELAMER **CARBONate** 800 MG TAB PO SCH ×3 (06:36→17:15)
[2018-08-11] MEDS: SENOKOT S TAB PO SCH ×2 (06:37→21:14)
[2018-08-11] MEDS: VITAMIN D 1,000 INTERNATIONAL UNITS TABLET PO SCH (06:39)
[2018-08-11] MEDS: MIDODRINE 5 MG TAB PO SCH ×2 (06:39→17:14)
[2018-08-11] MEDS: NEPHRO-VIT TAB (NEPHROCAPS) PO SCH (06:40)
[2018-08-11] MEDS: CYANOCOBALAMIN 500 MCG TAB PO SCH (06:40)
[2018-08-11] MEDS: FLUTICASONE PROP 0.05% NASAL SPRAY 16 GM (FLONASE) NARES SCH (06:41)
[2018-08-11] MEDS: SODIUM CHLORIDE NASAL 0.65% SPRAY BTL (OCEAN) SCH ×3 (06:41→21:16)
[2018-08-11] MEDS: METOPROLOL TART 25 MG TABLET PO SCH ×2 (06:45→21:15)
[2018-08-11] MEDS: MIRALAX *UNIT DOSE* 17GM PACKET PO SCH (06:48)
[2018-08-11] MEDS: HumaLOG INSULIN (NovoLOG) PER UNIT SC SCH ×4 (07:59→21:00)
[2018-08-11] MEDS: SANTYL OINT 30GM TOP SCH (09:00)
[2018-08-11] MEDS: EUCERIN 120GM CREAM TOP SCH ×3 (09:00→21:15)
[2018-08-11] MEDS ORDERED: HEPARIN 1,000 UNITS/ML 10ML VIAL (FOR RADIOLOGY& DIALYSIS ONLY) IV ONE (11:30)
[2018-08-11] MEDS: ATORVASTATIN 20 MG TAB PO SCH (13:53)
[2018-08-11] MEDS: GABAPENTIN 100 MG CAP PO SCH (13:53)
[2018-08-11 14:00] VITALS: BP 142/88
--- NOTE | 2018-08-11 15:54 | REP ---
Clinical: Persistent cough. Comparison: 05/25/2018. Findings: Cardiomegaly and mild chronic pulmonary vascular congestion is suggested. Minimal bibasilar linear fibroatelectatic changes remain essentially stable. No acute consolidation. No effusion. No pneumothorax. No significant adenopathy. No atherosclerotic changes to the thoracic aorta and coronary arteries noted along with pacemaker in satisfactory position. Osseous structures are intact. Impression: 1. Stable cardiomegaly and mild chronic pulmonary vascular congestion suggested. Stable bibasilar linear fibroatelectatic changes. 2. No new acute mediastinal or pleuroparenchymal process appreciated. Electronically Signed by Pito Allen MD 08/11/2018 03:46 P
[2018-08-11] MEDS: **VANCO AFTER HD** MISC XX SCH (16:00)
[2018-08-11] MEDS ORDERED: WARFARIN SOD 3 MG TAB PO SCH (17:00)
[2018-08-11] MEDS: PANTOPRAZOLE 40MG TAB (PROTONIX) PO SCH (17:16)
--- NOTE | 2018-08-11 17:30 | IPN ---
DATE: 08/11/2018 SUBJECTIVE: Patient is seen and examined this morning in the hemodialysis unit receiving his maintenance treatment. He denies any complaints or overnight events. He is pending a bed for placement. VITAL SIGNS: Temperature 97.6, pulse 101, respiratory rate 18-20, blood pressure 142/88, saturating 96% on room air. Intake yesterday was 1500. Dialysis today removed 4.5 liters. Weight in the bed scale today is not recorded. GENERAL: Patient is seen on dialysis receiving his maintenance treatment, drowsy but easily arousable, elderly male, in no acute distress, morbidly obese. Right eye is blind. Tongue is moist. Neck is supple. CARDIAC: S1, S2, irregular, 1+ edema in the peripheries. LUNGS: Good air entry bilaterally. No crackle or rale. ABDOMEN: Soft and nontender. There are bowel sounds. EXTREMITIES: The right upper extremity fistula is currently in use. The lower extremities have about 1+ edema bilaterally and there is a dressing on the left leg that extends up to the calf. NEUROLOGIC: He is at his usual mentation and has a chronic speech eloise. LABORATORY DATA: White count 8.2, hemoglobin 10.8, platelets 130. Sodium 137, potassium 4.2, bicarbonate 26, magnesium 2.2, CRP 1.9. CT chest 08/11/2018 noncontrast, mild chronic pulmonary vascular congestion and stable bibasilar fibroatelectatic changes. INPATIENT MEDICATIONS: Reviewed by myself and noted patient was started on Protonix 40 mg by mouth daily and his Coumadin was adjusted. Remainder of medications are unchanged from prior. PROBLEMS: 1. End-stage renal disease, on hemodialysis on a Thursday, Thursday, Thursday maintenance schedule. Patient is dialyzed today with 4.5 liters of fluid removed. His fistula is in good use. There is some hypervolemia on examination. Continue fluid restriction and aggressive ultrafiltration as tolerated by hemodynamics. Electrolytes are acceptable. 2. Anemia related to chronic renal failure and inflammation. Hemoglobin is within target range and the patient continues on Aranesp. 3. Atrial fibrillation. He continues on beta kajal for rate control and he continues on Coumadin anticoagulation with slightly subtherapeutic international normalized ratio (INR).
--- NOTE | 2018-08-11 20:14 | IPNPDOC ---
Text Note Date of Service The patient was seen on 08/11/18. NOTE The patient seen and examined. Denies any chest pain, pressure, or discomfort. Denies any nausea or vomiting. reported generalized weakness improved. continued cough. PHYSICAL EXAMINATION: GENERAL: The patient alert, comfortable, in no acute distress. HEENT: Normocephalic atraumatic. PULMONARY: Bilaterally clear. CARDIAC: Regular, S1, S2. ABDOMEN: Soft, nontender. Positive bowel sounds. EXTREMITIES: Trace edema of bilateral lower extremities. SKIN: There is a 16 cm x 34 cm wound on left leg extending from just above the calcaneum to the calf, exposed tendon. no purulent drain ASSESSMENT AND PLAN: This is a 73-year-old -[place] male with underlying medical history of end-stage renal disease, insulin-dependent diabetes poorly controlled, obstructive sleep apnea on continuous positive airway pressure (CPAP), hypertension, dyslipidemia, atrial fibrillation on Coumadin, tachybrady syndrome with pacemaker, thoracic aortic aneurysm, who presented with chronic diabetic foot ulcer, Achilles tendinitis, and cellulitis. PROBLEMS: 1. Left posterior Achilles tendinitis and cellulitis, diabetic foot ulcer, status post debridement by Dr. Jackson. The patient was on vancomycin and Flagyl, off antibiotics. Dr. Weinberg has been consulted for advanced wound care. Likely a rehabilitation placement for further wound care. Will monitor the patient off of antibiotics as per infectious disease. 2 . End-stage renal disease. Dialysis as per nephrology. Continue current medication. 3. Peripheral vascular disease. Status post angiogram by Dr. Benjamin showing distal disease, not amenable for treatment. 4. Insulin-dependent diabetes. Continue current medications. Follow fingersticks. 5. Persistent cough. Mucinex, nebulizer. Speech and swallow evaluation, modified cookie swallow has been negative. Possible postnasal drip. Flonase and nasal saline has been ordered. Clinically, the patient is a bit improved. taper steroid, ct chest appreciated. EZ pap 7. Atrial fibrillation. Continue Coumadin. Followup international normalized ratio (INR). Continue beta kajal. 8. Dyslipidemia. Continue statin. 9. Obstructive sleep apnea. Encourage CPAP. 10. Obesity. Complicating care. 11. Thoracic aortic aneurysm. Outpatient followup. 12. Peripheral neuropathy. Continue current medication. 13. Deep venous thrombosis (DVT) prophylaxis. Continue Coumadin. Followup INR. DISPOSITION: Waiting for bed at [facility]. VS,Fishbone, I+O VS, Fishbone, I+O Laboratory Tests 08/11/18 05:13 Red Blood Count 3.26 L, Mean Corpuscular Volume 103.7 H, Mean Corpuscular Hemoglobin 33.1 H, Mean Corpuscular Hemoglobin Concent 32.0, Red Cell Distribution Width 20.9 H, Anion Gap 11 Vital Signs Date Time Temp Pulse Resp B/P (MAP) Pulse Ox O2 Delivery O2 Flow Rate FiO2 08/11/18 14:00 97.6 101 20 142/88 (106) 96 I&O- Last 24 Hours up to 6 AM 08/11/18 06:00 Intake Total 1380 ml Balance 1380 ml ALMA MOORE MD Aug 11, 2018 20:14
[2018-08-11 22:00] VITALS: BP 148/80
[2018-08-12] MEDS: IPRATROPIUM 0.5MG/ALBUTEROL 2.5MG INH SOL UD 3ML (DUONEB)(J7620) NEB SCH (02:07)
[2018-08-12] MEDS: SODIUM CHLORIDE 0.9% INJ 10 ML SYR IV SCH (05:44)
[2018-08-12 06:00] VITALS: BP 141/84
[2018-08-12 07:19] LABS: INR 1.74; PROTHROMBIN TIME 20.6 SECONDS (12.1-14.4)
[2018-08-12 07:26] LABS: HEMATOCRIT 34.7 % (42.0-52.0); MEAN CORPUSCULAR HEMOGLOBIN 33.5 pg (27.0-33.0); MEAN CORPUSCULAR HGB CONC 31.7 g/dl (32.0-36.5); MEAN CORPUSCULAR VOLUME 105.8 fl (80.0-96.0); PLATELET COUNT, AUTOMATED 145 10^3/uL (150-450); RED BLOOD COUNT 3.28 10^6/uL (4.30-6.10); WHITE BLOOD COUNT 8.3 10^3/uL (4.0-10.0)
[2018-08-12 07:47] LABS: ALBUMIN 3.2 GM/DL (3.2-5.2); C REACTIVE PROTEIN QUANTITATIV 1.53 MG/DL (0.00-0.30); CALCIUM LEVEL 8.4 MG/DL (8.8-10.2); CREATININE FOR GFR 6.11 MG/DL (0.70-1.30); GLOMERULAR FILTRATION RATE 11.8 (>42); MAGNESIUM LEVEL 2.1 MG/DL (1.8-2.4); PHOSPHORUS LEVEL 5.1 MG/DL (2.5-4.9); POTASSIUM SERUM 3.9 MEQ/L (3.5-5.1)
[2018-08-12] MEDS: CYANOCOBALAMIN 500 MCG TAB PO SCH (08:46)
[2018-08-12] MEDS: LACTOBACILLUS ACIDOPHILUS CAP (BACID) PO SCH ×2 (08:46→12:04)
[2018-08-12] MEDS: (RENVELA) SEVELAMER **CARBONate** 800 MG TAB PO SCH ×2 (08:46→12:04)
[2018-08-12] MEDS: MIDODRINE 5 MG TAB PO SCH (08:46)
[2018-08-12] MEDS: guaiFENesin ER 600 MG TAB PO SCH (08:46)
[2018-08-12 08:47] VITALS: BP 141/84
[2018-08-12] MEDS: METOPROLOL TART 25 MG TABLET PO SCH (08:47)
[2018-08-12] MEDS: VITAMIN D 1,000 INTERNATIONAL UNITS TABLET PO SCH (08:47)
[2018-08-12] MEDS: BENZONATATE 100 MG CAP PO SCH (08:47)
[2018-08-12] MEDS: SENOKOT S TAB PO SCH (08:47)
[2018-08-12] MEDS: PANTOPRAZOLE 40MG TAB (PROTONIX) PO SCH (08:48)
[2018-08-12] MEDS: HumaLOG INSULIN (NovoLOG) PER UNIT SC SCH ×2 (08:48→12:05)
[2018-08-12] MEDS: NEPHRO-VIT TAB (NEPHROCAPS) PO SCH (08:48)
[2018-08-12] MEDS: ASPIRIN 81 MG ENTERIC TAB PO SCH (08:48)
[2018-08-12] MEDS: LEVEMIR (INSULIN DETEMIR) 1 UNITS/0.01ML SC SCH (08:49)
[2018-08-12] MEDS: EUCERIN 120GM CREAM TOP SCH (08:49)
[2018-08-12] MEDS: SANTYL OINT 30GM TOP SCH (08:49)
[2018-08-12] MEDS: SODIUM CHLORIDE NASAL 0.65% SPRAY BTL (OCEAN) SCH (08:50)
[2018-08-12] MEDS: MIRALAX *UNIT DOSE* 17GM PACKET PO SCH (08:50)
[2018-08-12] MEDS: FLUTICASONE PROP 0.05% NASAL SPRAY 16 GM (FLONASE) NARES SCH (08:50)
[2018-08-12] MEDS ORDERED: predniSONE 20 MG TAB PO SCH (09:00)
[2018-08-12] MEDS ORDERED: BENZ-18 PO (11:30)
[2018-08-12] MEDS ORDERED: FLUTISP NARES (11:30)
[2018-08-12] MEDS ORDERED: PRED10TA2 PO (11:30)
[2018-08-12] MEDS ORDERED: PANT40TA3 PO (11:30)
[2018-08-12] MEDS: GABAPENTIN 100 MG CAP PO SCH (12:04)
[2018-08-12] MEDS: ATORVASTATIN 20 MG TAB PO SCH (12:04)
--- NOTE | 2018-08-12 15:48 | IPN ---
DATE: 08/12/2018 Patient is seen and examined. He is to be discharged today. Denies other complaints. LOWER EXTREMITY EXAMINATION: Further granulation tissue noted at the proximal aspect of the wound. Tendon appears viable without significant necrosis. No signs of infection today. ASSESSMENT: A 73-year-old diabetic male with posterior leg heel calf ulceration. PLAN: Okay to be discharged. He has followup with Dr. Weinberg and myself. He has home health starting next week and he has a prescription for outpatient therapy. Continue current dressing changes. We will follow.
[2018-08-12] MEDS ORDERED: WARFARIN SOD 5 MG TAB PO SCH (17:00)
--- NOTE | 2018-08-12 20:22 | DSES ---
DATE OF ADMISSION: 07/22/2018 DATE OF DISCHARGE: 08/12/2018 PRIMARY CARE PROVIDER: Resident clinic. DRAWBENCH OPERATOR: Dr. Jayy Alvarez FIELD AGRONOMIST: Dr. Sedrick Jackson [employer] APPLICATION ENGINEER: Dr. Renato Weinberg INFECTIOUS DISEASE: Dr. Maddy Kam. FINAL DIAGNOSES: 1. Left posterior Achilles tendonitis, cellulitis. 2. Diabetic foot ulcer. 3. End stage renal disease. 4. Peripheral vascular disease. 5. Insulin-dependent diabetes. 6. Persistent cough, postnasal drip versus gastroesophageal reflux disease (GERD). 7. Atrial fibrillation. 8. Dyslipidemia. 9. Obstructive sleep apnea. 10. Morbid obesity. 11. History of thoracic aortic aneurysm. 12. Peripheral neuropathy. HISTORY OF PRESENT ILLNESS: This is a 73-year-old -Citizen Of [place] male patient with underlying medical history of insulin-dependent diabetes, obstructive sleep apnea on continuous positive airway pressure (CPAP), dyslipidemia, hypertension, atrial fibrillation with tachybrady syndrome with pacemaker, thoracic aortic aneurysm, who presented from the radiologic tech's office, being seen by Dr. Sedrick Jackson for chronic diabetic foot ulcer. THe patient states that he has been dealing with his wound since October. Dr. Jackson wanted to admit the patient to the hospital for IV antibiotics and then bring him to the operating room for debridement. The patient otherwise feels well. Does have some chronic shortness of breath and chronic cough, ongoing for a long time. The patient is a poor historian. Reported diminished sensation in bilateral lower extremities. Denies any fevers or chills. Denies any chest pain. HOSPITAL COURSE: The patient was admitted to the hospital status post debridement by Dr. Jackson. Nephrology was consulted for continuation of hemodialysis. The patient was started on antibiotic. Culture was appreciated. Dr. Maddy Kam was consulted for further antibiotic adjustments. Dr. Weinberg was also consulted for advanced wound care. Initially, as per Dr. Jackson's recommendations, the patient will need possible rehabilitation for further wound care and physical therapy (PT). PT was consulted. The patient passed physical therapy (PT) but unfortunately no rehabilitation bed is available. Hence, the patient's antibiotics have been discontinued after completing a course. Currently, the patient is off of antibiotics with improving C-reactive protein. Wound care was done by nursing staff. Able to ambulate. Further workup for cough was done, including CT scan of the chest, incentive spirometry, EZPAP, speech and swallow were done. The patient passed modified cookie swallow. Nasal saline was provided for possible postnasal drip, as well as proton pump inhibitor was also prescribed for chronic cough. Tapering dose of steroids was provider for possible reactive airway disease. Encouraged CPAP use during hospitalization. Dialysis was managed by nephrology. The patient also had vascular surgery angiogram done by Dr. Benjamin showing distal disease, not amenable for treatment from a vascular perspective. The patient currently is tolerating oral, off of antibiotics, comfortable. The patient and family wanted him to go home given no concrete rehabilitation plan possible at this point. Hence, the patient was discharged home with wound care and home healthcare referral. Followup with Dr. Weinberg and home healthcare referral. VITAL SIGNS: Temperature 98.2, pulse 97, respirations 18, blood pressure 141/84, pulse oximetry 100% on room air. LABORATORY DATA: WBC 8.3, hemoglobin and hematocrit 11/34.7, platelets 145. Chemistry: Sodium 138, potassium 3.9, chloride 100, bicarbonate 30, BUN 47, creatinine 6.11. PHYSICAL EXAMINATION: GENERAL: The patient is morbidly obese, in no acute distress. HEENT: Normocephalic, atraumatic. PULMONARY: Bilaterally clear. CARDIAC: Regular. S1, S2. ABDOMEN: Soft, nontender. Positive bowel sounds. EXTREMITIES: Trace edema in bilateral lower extremities with left lower extremity transmetatarsal amputation. There is 16 cm x 34 cm wound on the left leg extending from calf level with exposed tendon to the ankle. No purulent drainage at this time. DISCHARGE MEDICATIONS: - Tessalon Perles 100 mg by mouth twice a day - Flonase nasal spray daily - Protonix 40 mg by mouth daily - prednisone taper - Ventolin inhaler four times a day as needed - aspirin 81 mg by mouth daily - Lipitor 20 mg by mouth daily - probiotics by mouth twice a day - vitamin D 1000 units by mouth daily - collagenase for wound care daily - vitamin B12 1000 mcg by mouth daily - gabapentin 100 mg by mouth daily - NovoLog Flex Pen subcutaneously twice a day - Levemir 6 units subcutaneously three times a week - metoprolol tartrate 25 mg by mouth twice a day - midodrine 5 mg by mouth twice a day - sublingual nitroglycerin 0.4 mg sublingually as needed - Sevelamer 800 mg by mouth daily - vitamin B complex one tablet by mouth daily - Coumadin 5 mg by mouth at night DISCHARGE INSTRUCTIONS: Wound care as per Dr. Weinberg. Please see primary care provider in 3 to 5 days. Please check INR with primary care provider and dose Coumadin accordingly. Please followup with nephrology for dialysis. Please see Dr. Weinberg for wound care as soon as possible. Home with physical therapy (PT). Weight loss. Further workup for persistent cough as per primary care provider. Return to the hospital if symptoms worsen.
--- NOTE | 2018-08-13 07:36 | IPN ---
DATE OF SERVICE: 08/12/2018 Patient is seen and examined this morning at the bedside. His family is present. He is discharge pending. He denies any new complaints. He tolerated dialysis yesterday with 4.5 liters of fluid removed. Vital signs: Temperature 98.2, pulse 97, respiratory rate 18, blood pressure 141/84, saturating 100% on room air. Intake yesterday was 2275. Dialysis yesterday removed 4500. Net negative 2.2 liters. Weight on the bed scale today is not recorded. General: Patient is seen sitting at the edge of the bed, elderly male, no acute distress. Right eye blind. Tongue moist. Neck supple. Cardiac: S1, S2 irregularly irregular. 1+ edema that extends up to the hips, thigh and dependent area. Lungs show good air entry bilaterally. No crackle or rales. Abdomen is soft and nontender. The right upper extremity fistula is patent. The lower extremities have 1+ edema bilaterally. There is a dressing on the left lower extremity that extends up to the calf. Neurologic: He is at his baseline mentation. Cooperative with physical exam and oriented. Has a chronic speech impediment. LABS: White count 8.3, hemoglobin 11.0, platelets 145. Sodium 138, potassium 3.9, bicarbonate 30. Magnesium 2.1. INPATIENT MEDICATIONS: Reviewed by myself and no change from prior. PROBLEMS: 1. End-stage renal disease, on hemodialysis on a Thursday, Thursday, Thursday maintenance schedule. Patient is mildly volume overloaded. He is counseled in regards to a fluid restriction and low sodium intake as an outpatient. He tolerates ultrafiltration of 4-5 liters with each hemodialysis treatment. Next treatment will be tomorrow as an outpatient. His fistula is in good use. His electrolytes are otherwise acceptable. 2. Anemia related to chronic renal failure. Hemoglobin is 11.0 which is optimal. He will continue with anemia protocol of end stage renal disease. 3. Left posterior Achilles tendinitis and cellulitis, diabetic foot ulcer status post debridement by podiatry. He will followup with podiatry and wound care. Patient is off antibiotics as per infectious disease. He refused rehabilitation placement and his peripheral vascular disease was further evaluated by angiogram on this admission. 4. Atrial fibrillation. Anticoagulated with Coumadin with a slightly subtherapeutic INR today and he is rate controlled with beta kaajl. DISPOSITION: Patient is acceptable for discharge home in nephrology point of view and can followup in the outpatient hemodialysis unit tomorrow.
--- NOTE | 2018-08-18 09:04 | REPIR ---
DATE OF PROCEDURE: 07/30/2018 PREOPERATIVE DIAGNOSES: Left foot nonhealing ulcer, end-stage renal disease. POSTOPERATIVE DIAGNOSES: Left foot nonhealing ulcer, end-stage renal disease. PROCEDURE: Aortogram, iliofemoral angiogram, selective left common femoral artery catheter placement, left lower extremity angiogram, selective left superficial femoral artery catheter placement, left lower extremity angiogram, Mynx closure of the right common femoral arteriotomy. SURGEON: Dr. Asif Benjamin. WILDLAND FIREFIGHTER: Nicolasa Ruiz. ANESTHESIA: Local with 10 mL of 2% lidocaine. FLUORO TIME: 1.9 minutes. CONTRAST: 23.5 mL of Isovue-300 heparin none. COMPLICATIONS: None. DRAINS: None. SPECIMEN: None. IMPLANTS: Right common femoral arteriotomy closure with a MYNX closure device. INDICATIONS: The patient is a 73-year-old male with a nonhealing left foot ulcer and end-stage renal disease who will undergo a left lower extremity angiogram. Risks, benefits and alternative options were discussed with the patient. DESCRIPTION OF PROCEDURE: The patient was taken to the angiography suite, placed supine on the angiography room table and prepped and draped in a standard surgical fashion. The right common femoral artery was cannulated with a micropuncture needle. A catheter was placed in the aorta and aortogram was performed. Catheter was pulled down to the level of the bifurcation of the iliac arteries and an iliofemoral angiogram was performed. Catheter was then directed over the bifurcation, placed in the left common femoral artery and a left lower extremity angiogram was performed. Catheter was directed to the left superficial femoral artery and left lower extremity angiogram was then performed. A MYNX closure was then used to close the arteriotomy in the right common femoral artery after the catheters and wires were removed with an additional 10 minutes of adjunctive pressure applied for hemostasis. Dressings were then applied. The patient tolerated the procedure well. All instrument, sponge, needle counts were correct at the end of the case. There were no complications. Dr. Benjamin was present for directed the entire case. The patient was transferred to the holding area and subsequently to the floor in stable condition. RADIOLOGY SUPERVISION INTERPRETATION: Aortogram showed the aorta and the atherosclerotic plaquing but no significant stenosis. The common iliac, external and internal iliac arteries were patent bilaterally. The catheter was placed in the left common femoral artery and angiogram was performed showing diffuse calcific atherosclerotic disease with no significant stenosis and severe tibioperoneal arterial occlusive disease distally. Catheters and wires removed and a MYNX closure device was used close the arteriotomy in the right common femoral artery.
== END 2018-08-12 13:05 | disposition home health service (06) | DRG 981 ==
LOC: EEVIPCON 15:33 → M MS5PR 15:33
PROVIDERS: ADMIT Internal Medicine; ATTEND Hospitalist
PROC: 5A1D70Z Performance of Urinary Filtration, Intermittent, Less than 6 Hours Per Day (ICD-10-PCS; 2018-07-23)
PROC: 0KDT0ZZ Extraction of Left Lower Leg Muscle, Open Approach (ICD-10-PCS; principal; 2018-07-23 16:00)
PROC: 05HA33Z Insertion of Infusion Device into Left Brachial Vein, Percutaneous Approach (ICD-10-PCS; 2018-07-28)
PROC: B400YZZ Plain Radiography of Abdominal Aorta using Other Contrast (ICD-10-PCS; 2018-07-30)
PROC: B40GYZZ Plain Radiography of Left Lower Extremity Arteries using Other Contrast (ICD-10-PCS; 2018-07-30)
DX: E11.51 Type 2 diabetes mellitus with diabetic peripheral angiopathy without gangrene (principal); N18.6 End stage renal disease; L97.329 Non-pressure chronic ulcer of left ankle with unspecified severity; I13.2 Hypertensive heart and chronic kidney disease with heart failure and with stage 5 chronic kidney disease, or end stage renal disease; L97.429 Non-pressure chronic ulcer of left heel and midfoot with unspecified severity; L03.116 Cellulitis of left lower limb; E11.22 Type 2 diabetes mellitus with diabetic chronic kidney disease; G47.33 Obstructive sleep apnea (adult) (pediatric); E78.5 Hyperlipidemia, unspecified; I70.0 Atherosclerosis of aorta; I48.91 Unspecified atrial fibrillation; I70.202 Unspecified atherosclerosis of native arteries of extremities, left leg; B95.62 Methicillin resistant Staphylococcus aureus infection as the cause of diseases classified elsewhere; K59.00 Constipation, unspecified; E11.65 Type 2 diabetes mellitus with hyperglycemia; E11.622 Type 2 diabetes mellitus with other skin ulcer; E87.5 Hyperkalemia; D63.1 Anemia in chronic kidney disease; I50.9 Heart failure, unspecified; E66.01 Morbid (severe) obesity due to excess calories; H54.61 Unqualified visual loss, right eye, normal vision left eye; E11.42 Type 2 diabetes mellitus with diabetic polyneuropathy; I71.2 Thoracic aortic aneurysm, without rupture; Z68.34 Body mass index [BMI] 34.0-34.9, adult; Z95.0 Presence of cardiac pacemaker; Z99.2 Dependence on renal dialysis; Z79.4 Long term (current) use of insulin; Z79.82 Long term (current) use of aspirin; Z79.01 Long term (current) use of anticoagulants; Z79.899 Other long term (current) drug therapy; Z87.891 Personal history of nicotine dependence; Z89.422 Acquired absence of other left toe(s)

== ENCOUNTER 2018-11-01 06:59 | Inpatient (IN) | payer MEDICARE, MEDICAID ==
[~2018-11-01] VITALS: Ht 188 cm; Wt 139.1 kg
[~2018-11-01 06:59] MED LIST changes: -/ATOR40TA PO; -/INSU7030; -/METO25TAB PO; -/NEPHROTA PO; -/NITR4TASL SL; -/WARF5TA; -ASPI1TAB PO; -ASPI81CH PO; +ASPI81CH49 PO; +ASPI81TA26 PO; +BENZ-18 PO; +CEPH500C PO; -CINA30TA PO; +CINA30TA4 PO; +COUM1TAB17; -DOCU10ELUD PO; +DOCU5LIQ PO; +FLON1SPR; +FLUT1SPR2; -FLUTISP; +FLUTISP NARES; +HYDR-3363 PO; +LIDO2.5C15 TOP; +LIPI1TAB2 PO; -MIRA255PW PO; +NEPH1TAB11 PO; +NEPH1TAB8 PO; -NEPHTAB PO; +NITR0.4S SL; +NOVO1INJ4; +PANT-23 PO; +POLY1POW4 PO; +SANT250O8 TOP; +WARF-20 PO; +WARF-23 PO; +ZYVO1TAB PO
[2018-11-01 08:01] LABS: BASO % 0.4 % (0.0-1.0); EOS # 0.3 10^3/uL (0.0-0.50); HEMATOCRIT 33.4 % (42.0-52.0); HEMOGLOBIN 10.4 g/dl (13.5-17.5); LYMPH % 10.4 % (24.0-44.0); MEAN CORPUSCULAR HEMOGLOBIN 31.4 pg (27.0-33.0); MEAN CORPUSCULAR HGB CONC 31.1 g/dl (32.0-36.5); MEAN CORPUSCULAR VOLUME 100.9 fl (80.0-96.0); MONO # 1.4 10^3/uL (0.0-0.8); MONO % 15.3 % (0.0-5.0); NEUTROPHILS # 6.4 10^3/uL (1.8-7.7); NEUTROPHILS % 70.4 % (36.0-66.0); PLATELET COUNT, AUTOMATED 102 10^3/uL (150-450); RED BLOOD COUNT 3.31 10^6/uL (4.30-6.10); WHITE BLOOD COUNT 9.1 10^3/uL (4.0-10.0)
[2018-11-01 08:09] LABS: INR 1.78
[2018-11-01 08:29] LABS: CALCIUM LEVEL 7.3 MG/DL (8.8-10.2); CREATININE FOR GFR 8.65 MG/DL (0.70-1.30); GLOMERULAR FILTRATION RATE 7.9 (>42); POTASSIUM SERUM 4.2 MEQ/L (3.5-5.1)
[2018-11-01 09:34] LABS: MAGNESIUM LEVEL 2.2 MG/DL (1.8-2.4)
[2018-11-01] MEDS ORDERED: LIDO2.5C15 TOP (11:24)
[2018-11-01] MEDS ORDERED: TUMS500C PO (11:24)
[2018-11-01] MEDS ORDERED: WARF4TAB51 PO (11:24)
--- NOTE | 2018-11-01 12:11 | CR.PDOC ---
General Date of Consultation: Nov 01, [address] Mattson Nephrology Dr Winters HPI: 73yoM who underwent AVF revision 09/24/18, 10/12/[address] Benjamin related to approximate 5 mm circular ulceration over the fistula with vein exposed with recurrent bleeding. The patient was at HD this AM and when they started access for HD he again had recurrent bleeding from AVF site. He was referred to the ED for evaluation. With examination today he is noted to have ulceration of the previous surgical site with persistent oozing of blood. The patient's admission is arranged. Vascular Surgery is consulted for further recommendations. Pt denies any fevers, chills, weakness, fatigue, DOMÍNGUEZ, CP, SOB, cough, palpitat ions, abdominal pain, N/V/D or changes in bowel or bladder habits. He is known to have a chronic wound of the LLE, he follows with Dr Weinberg. PAST MEDICAL HISTORY: 1. Insulin-dependent diabetes. 2. End-stage renal disease, on dialysis Thursday, Thursday, Thursday. 3. Obstructive sleep apnea with continuous positive airway pressure (CPAP). 4. Hyperlipidemia. 5. Hypertension. 6. Atrial fibrillation. On Coumadin AC 7. 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 8. Thoracic aortic aneurysm. 9. Chronic wound LLE. Follows with Dr Weinberg as outpt. 10. reduced vision/hearing PAST SURGICAL HISTORY: 1. Pacemaker placement. 2. Arteriovenous (AV) graft for dialysis. 3. Hernia repair. FAMILY HISTORY: Family history of heart disease. SOCIAL HISTORY: Patient was a former smoker. Quit many years ago. He does not drink any alcohol denies illicit drug use. ROS: As noted in HPI, otherwise 11pt ROS of systems reviewed and unremarkable. PE: GEN: 73yoM, appears stated age. No acute distress. Alert and oriented x 3. HEENT: Normocephalic, atraumatic. Sclera are nonicteric. Conjunctiva without injection. Moist mucous membranes. CHEST: Regular rate and rhythm, +S1, +S2 LUNGS: Clear to auscultation bilaterally. No wheezes, rales, or rhonchi. ABD: Round, soft, non-tender, non-distended. +Bowel sounds throughout. EXT: No lower extremity edema appreciated. Rt UE AV fistula site with ulceration noted in area of previous surgical revision, oozing of blood noted, dressing in place. Thrill is noted over distal aspect of fistula and is more pulsatile over proximal aspect of fistula. SKIN: Pierce, dry, warm. No rashes. Dressing intact over Left foot wound. NEURO: Alert and oriented x 3. Cranial nerves III-XII are intact. No focal defi cits appreciated. A&P: 1. RUE AVF with recurrent bleeding/ulceration. Patient is reviewed and examined by Dr. Mattson. Plan for Permcath for temporary HD access. Consent placed on chart. Pt NPO for now. Request vein mapping to further asses for fistula creation/revision. Pending results, possibly consider fistulogram at time of permcath placement. 2. ESRD/HD HD as per nephrology, spoke with Dr Winters who is aware. 11/01/18 Patient seen and examined an dI agree with the note and assessment above. He had recurrent severe bleeding from his RUE cimeno AVF before dialysis could be done, and was brought to the ED. The ulceration over the exposed cephalic vein is very concerning. Dr Benjamin has tried multiple times to salvage this AVF but it continues to bleed. The pt is in a great deal of distress about this and expresses frustration. Will place permcath today for access for HD in the morning, and Eden Marcia was notified in HD. Regarding the RUE AVF, I think the safest option at this point is to proximalize the AVF to the brachial artery. I obtained a vein mapping today and the cephalic vein over the bicep is almost 6mm diameter, and should mature quickly to a useable size. Will ligate the forearm AVF and this should allow the ulceration to heal if it is no longer being used for access. If it does not heal, we can do an excision of the ulcer and primary closure at a later date. Risks benefits and alternatives to permcath explained and informed consent obtained. Kath Mattson MD Vital Signs/I&O Vital Signs Date Time Temp Pulse Resp B/P (MAP) Pulse Ox O2 Delivery O2 Flow Rate FiO2 11/01/18 07:06 97.3 93 20 154/76 97 Room Air Laboratory Data Labs 24H Laboratory Tests 2 11/01/18 07:35: Immature Granulocyte % (Auto) 0.5, White Blood Count 9.1, Red Blood Count 3.31L, Hemoglobin 10.4L, Hematocrit 33.4L, Mean Corpuscular Volume 100.9H, Mean Corpuscular Hemoglobin 31.4, Mean Corpuscular Hemoglobin Concent 31.1L, Red Cell Distribution Width 16.5H, Platelet Count 102L, Neutrophils (%) (Auto) 70.4H, Lymphocytes (%) (Auto) 10.4L, Monocytes (%) (Auto) 15.3H, Eosinophils (%) (Auto) 3.0, Basophils (%) (Auto) 0.4, Neutrophils # (Auto) 6.4, Lymphocytes # (Auto) 1.0L, Monocytes # (Auto) 1.4H, Eosinophils # (Auto) 0.3, Basophils # (Auto) 0.0, Nucleated Red Blood Cells % (auto) 0.0, Prothrombin Time 21.0H, Prothromb Time International Ratio 1.78, Anion Gap 9, Glomerular Filtration Rate 7.9L, Blood Urea Nitrogen 61H, Creatinine 8.65*H, Sodium Level 142, Potassium Level 4.2, Chloride Level 105, Carbon Dioxide Level 28, Calcium Level 7.3L, Phosphorus Lev el 5.0H, Magnesium Level 2.2 CBC/BMP Laboratory Tests 11/01/18 07:35 Red Blood Count 3.31 L, Mean Corpuscular Volume 100.9 H, Mean Corpuscular Hemoglobin 31.4, Mean Corpuscular Hemoglobin Concent 31.1 L, Red Cell Distribution Width 16.5 H, Neutrophils (%) (Auto) 70.4 H, Lymphocytes (%) (Auto) 10.4 L, Monocytes (%) (Auto) 15.3 H, Eosinophils (%) (Auto) 3.0, Basophils (%) (Auto) 0.4, Neutrophils # (Auto) 6.4, Lymphocytes # (Auto) 1.0 L, Monocytes # (Auto) 1.4 H, Eosinophils # (Auto) 0.3, Basophils # (Auto) 0.0, Calcium Level 7.3 L Allergies Coded Allergies: No Known Allergies (Verified , 03/03/17) Home Medications Scheduled Aspirin (Aspirin EC) 81 Mg Tab, 81 MG PO DAILY, (Reported) Atorvastatin Calcium (Atorvastatin Calcium) 20 Mg Tab, 20 MG PO DAILY, (Reported) AT NOON Bacillus Coagulans (Bacid with Lactospore) 1 Cap Cap, 1 CAP PO BID, (Reported) Calcium Carbonate (Tums) 200 Mg Tab.chew, 500 MG PO QAM, (Reported) Cholecalciferol (Vitamin D3) (Vitamin D3) 1,000 Unit Tab, 1,000 UNITS PO DAILY, (Reported) Cyanocobalamin (Vitamin B-12) (Vitamin B-12) 500 Mcg Tab, 1,000 MCG PO DAILY, (Reported) Fluticasone Propionate (Flonase Allergy Relief) 9.9 Ml [place].susp, 2 SPRAY NA DAILY, (Reported) Gabapentin (Gabapentin) 100 Mg Cap, 100 MG PO DAILY, (Reported) AT NOON Insulin Aspart (Novolog Flexpen) 100 Unit/Ml Inj, 1 DOSE SC BID, (Reported) PER SLIDING SCALE WITH BREAKFAST AND DINNER Insulin Detemir (Levemir) 1 Units/0.01 Ml Susp, 16 UNITS SC 3XW, (Reported) QHS:TUES,THURS,SAT Lidocaine/Prilocaine (Lidocaine-Prilocaine Cream) 2.5%/2.5% Cream..g., 1 APLCT TOP ASDIRECTED, (Reported) APPLY TO DIALYSIS ACCESS SITE ONE HOUR PRIOR TO DIALYSIS Metoprolol Tartrate (Metoprolol Tartrate) 25 Mg Tab, 25 MG PO BID, (Reported) Pantoprazole Sodium (Pantoprazole Sodium) 40 Mg Tablet.dr, 40 MG PO DAILY, (Reported) Sevelamer Carbonate (Sevelamer Carbonate) 800 Mg Tab, 800 MG PO BID, (Reported) WITH BREAKFAST AND DINNER Vit B Comp No.3/Folic/C/Biotin (Nephro-[facility] Rx Tablet) 1 Tab Tab, 1 TAB PO DAILY, (Reported) Warfarin Sodium (Warfarin Sodium) 5 Mg Tablet, 5 MG PO 3XW, (Reported) MON/WED/FRI Warfarin Sodium (Warfarin Sodium) 2 Mg Tablet, 4 MG PO 4XWK, (Reported) SUN/TUES/THURS/SAT Scheduled PRN Albuterol Sulfate (Ventolin Hfa) 108 Mcg/Act Aer, 2 PUFFS INH QID PRN for SHORTNESS OF BREATH, (Reported) Hydroxyzine HCl (Hydroxyzine HCl) 25 Mg Tablet, 25 MG PO BID PRN for ITCHING, (Reported) Nitroglycerin (Nitrostat) 0.4 Mg Subl, 0.4 MG SL NITRO PRN for ANGINA, (Reported) Betty Hernandez Nov 01, 2018 12:11 KATH MATTSON MD Nov 01, 2018 15:52
[2018-11-01] MEDS ORDERED: DARBEPOETIN 100 MCG/0.5 ML *DIALYSIS* SYRINGE (J0882) IV SCH (13:00)
--- NOTE | 2018-11-01 14:02 | ER ---
DATE OF CONSULTATION: 11/01/2018 REQUESTING PHYSICIAN: Dr. Cici Mcdaniels CONSULTING PHYSICIAN: Phuong Rodriguez MD REASON FOR CONSULTATION: Management of end-stage renal disease, on hemodialysis. CHIEF COMPLAINT: The patient presented to the emergency room with bleeding from the right forearm AV fistula. HISTORY OF PRESENT ILLNESS: Mr. Irwin Lackey is a 73-year-old male with past medical history of end-stage renal disease, on hemodialysis every Thursday, Thursday, Thursday, well-known to nephrology service from previous hospitalizations and from outpatient hemodialysis. He has multiple other comorbidities, including hypertension, atrial fibrillation, history of thoracic aortic aneurysm, and chronic left lower extremity wound, and history of bleeding from the right forearm AV fistula which has been revised during previous hospitalizations, as well. He presented to the dialysis center today morning for hemodialysis, but he started bleeding profusely from the right forearm AV fistula. He was not dialyzed, and he was sent to the emergency room for further evaluation. The patient is being admitted under the hospitalist service. He was seen by vascular surgery, as well, and plan is to get a tunneled dialysis catheter and possibly getting another AV fistula on the other arm. Right forearm AV fistula is not ready for use. Nephrology service was called for further help in the management of end-stage renal disease. I saw and evaluated the patient today morning in the emergency room. He is afebrile and hemodynamically stable. There was no active bleeding when I saw him in his room. PAST MEDICAL HISTORY: Past medical history of morbid obesity, history of end-stage renal disease on dialysis Thursday, Thursday, Thursday, history of diabetes mellitus type 2 insulin dependent, obstructive sleep apnea and dependent on continuous positive airway pressure (CPAP) at night, hyperlipidemia, hypertension with chronic kidney disease, atrial fibrillation anticoagulated with Coumadin, history of tachy-jorge syndrome requiring a pacemaker placement, history of thoracic aortic aneurysm, chronic left lower extremity wound following up with wound care as outpatient, history of right eye blindness PAST SURGICAL HISTORY: History of hernia repair in the past, right forearm AV fistula revision on 09/24/2018 and 10/12/2018, status post pacemaker placement, status post left transmetatarsal site amputation. ALLERGIES: No known drug allergies. FAMILY HISTORY: No significant family history of end-stage renal disease requiring hemodialysis. SOCIAL HISTORY: The patient denies any history of smoking, illicit drug abuse, or alcohol abuse. REVIEW OF SYSTEMS: Constitutional: He denies any fevers and chills. Eyes: He reports right eye blindness. Ears, nose, and throat (ENT): He denies any dysphagia, odynophagia, ear discharge. Cardiovascular: He denies any chest pain or palpitation. Respiratory: He does report some intermittent cough, but he denies any phlegm. Gastrointestinal (GI): He denies any nausea, vomiting. Genitourinary: He denies any dysuria or hematuria. Musculoskeletal: He denies any muscle aches and pains. He does report left foot ulcer, and he reports right forearm AV fistula bleeding. Central nervous system (STOPPER MAKER HELPER): He denies any strokes or seizures. Psychiatric: He denies any depression or anxiety. Hematological/oncological: He reported bleeding from the AV fistula site today morning. Endocrine: He reports diabetes mellitus type 2. All other review of systems is negative. PHYSICAL EXAMINATION: General: The patient is awake, alert, oriented times three, morbidly obese, laying in bed, no apparent distress. Vital signs: Temperature is 97.3 degrees Fahrenheit, blood pressure 154/76, pulse is 93, respiratory rate of 20, saturating 97% on room air. 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 Mucous membranes are moist. Neck is supple. There is no jugular venous distention (JVD). Cardiovascular: S1, S2, regular rate. No edema of the right lower extremity. 1+ edema of the left lower extremity. Respiratory: Chest is clear to auscultation bilaterally. Bilateral equal air entry. No rales or rhonchi. Abdomen: Soft, obese, positive bowel sounds. Nontender. Musculoskeletal: The patient has a dressing on the left foot, and left foot has transmetatarsal amputation. Central nervous system (STOPPER MAKER HELPER): No focal deficit. Power is 5/5 in bilateral upper extremities. AV access: The patient has a right forearm AV fistula with thrill and bruit, and there is dressing on the AV fistula site with no active bleeding. However, the dressing is soaked with a little bit of blood. LABORATORY REVIEW: Complete blood count (CBC) showed a WBC 9.1, hemoglobin 10.4, platelets are 102. INR is 1.78. Basic metabolic profile (BMP) showed sodium 142, potassium 4.2, chloride 105, bicarbonate 28, BUN 61, creatinine is 8.6, calcium 7.3, phosphorus 5. OUTPATIENT MEDICATIONS: The patient takes Ventolin as needed, aspirin 81 mg daily, Lipitor 20 mg daily, calcium carbonate 500 mg by mouth daily, vitamin D 1000 units by mouth daily, vitamin B12 1000 mcg by mouth daily, fluticasone two sprays daily, gabapentin 100 mg by mouth daily, hydroxyzine as needed, insulin NovoLog according to sliding scale, insulin Levemir 16 units subcutaneous three times a week, metoprolol 25 mg by mouth twice a day, Protonix 40 mg by mouth daily, Renvela 800 mg by mouth twice a day, multivitamin one tablet daily, warfarin 5 mg alternating with 4 mg. ASSESSMENT: A 73-year-old male with history of end-stage renal disease on hemodialysis every Thursday, Thursday, Thursday, history of morbid obesity, hypertension, atrial fibrillation on anticoagulation, admitted this time with a right forearm AV fistula bleeding. PLAN: 1. End-stage renal disease, on hemodialysis. The patient's regular dialysis days are Thursday, Thursday, Thursday. However, his right forearm AV fistula is not ready for use. He is going to get tunneled hemodialysis catheter placed today. He will be dialyzed tomorrow morning. 2. Bleeding from the right forearm AV fistula. The patient was seen by vascular surgery. No further use of right forearm fistula. The patient is going to get a vein mapping and possible placement of a new fistula on the Right arm. 3. Anemia in end-stage renal disease. Hemoglobin level is optimal. The patient will be started on Aranesp with dialysis. 4. Chronic kidney disease/mineral bone disease. Continue home dose of Tums 500 mg in the morning and Renvela 800 mg by mouth twice a day. 5. Chronic atrial fibrillation. Continue current dose of metoprolol 25 mg by mouth twice a day. The patient is already anticoagulated with Coumadin. 6. Diabetes mellitus type 2, insulin dependent. Continue home dose of insulin Levemir and insulin sliding scale. Thank you for involving me in the care of this patient. I shall be happy to follow the patient along with you tomorrow morning. [facility]
[2018-11-01 14:15] VITALS: BP 127/75
--- NOTE | 2018-11-01 14:46 | REP ---
Bilateral upper extremity arterial and venous Doppler ultrasound: History: Pre arteriovenous fistula vein mapping study. The patient has a right radial artery to cephalic vein AV fistula, now bleeding. Evaluate for new site. The distal forearm on the right could not be scanned due to an applied dressing. No stricture is seen. Arterialized venous waveforms are noted on the right consistent with the arteriovenous fistula. Incidental note is made of a left basilic vein draining into the brachial vein at the mid humerus level. There is no evidence of venous thrombosis in either upper extremity. Right upper extremity arterial velocity and diameter chart: Axillary artery 78 cm/S, 8.5 mm Brachial artery 97 cm/S, 7.3 mm radial artery 137 cm/S, 6.8 mm Ulnar artery 62 cm/S, 7.0 mm Left upper extremity arterial velocity and diameter chart: Axillary artery 55.3 cm/S, 6.7 mm Brachial artery 65.8 cm/S, 5.9 mm Radial artery 91.7 cm/S, 2.7 mm Ulnar artery 72 cm/S, 2.3 mm Right upper extremity venous diameter chart: Upper humerus basilic 5.5 millimeters, cephalic 5.6 mm Lower humerus basilic 4.6, cephalic 5.9 Upper forearm basilic 6.5, cephalic 11 Lower forearm and wrist not seen due to dressing Median cubital 4.3 mm Left upper extremity venous diameter chart: Upper humerus basilic not seen, cephalic 4.6 mm Lower humerus basilic 5.3 mm, cephalic 2.9 mm Upper forearm basilic 4.0, cephalic 3.1 Lower forearm basilic 2.7, cephalic 2.0 Electronically Signed by Wing Bowman MD 11/01/2018 02:37 P
[2018-11-01] MEDS ORDERED: LIDOCAINE 2% MDV 20 ML VIAL As Ordered ONE (14:47)
[2018-11-01] MEDS ORDERED: LIDOCAINE 1% MDV 20ML VIAL As Ordered ONE (14:52)
[2018-11-01] MEDS ORDERED: HEPARIN 1,000 UNITS/ML 10ML VIAL (FOR RADIOLOGY& DIALYSIS ONLY) As Ordered ONE (15:02)
[2018-11-01] MEDS ORDERED: DEXTROSE 50% 50 ML SYRINGE As Ordered ONE (15:05)
[2018-11-01] MEDS ORDERED: ALBUTEROL 90 MCG/ACT 8GM HFA INHALER INH PRN (15:15)
--- NOTE | 2018-11-01 16:05 | HPEPDOC ---
General Date of Admission Nov 01, 2018 at 12:36 Date of Service: Nov 01, 2018 Chief Complaint The patient is a 73-year-old male admitted with a reason for visit of Avf,Dialysis Av Fistual Malfunction,Esrd On Dialysis. History of Present Illness Mr. Lobo is a 73 yo male in unfortunate health who is well known to our group, he has past medical history of IDDM, ESRD on HD MWF, DLP, HTN, ELISSA w/CPAP, A. FIB on Coumadin, Tachy/Shane syndrome s/p pacemaker, chronic wound LLE who presents to the ED after his right AV fistula began to bleed at HD., apparently he has a chronic ulcer in the area and they were unable to perform HD today via the fistula. He is being admitted and a perm cath w/ vascular surgery is scheduled to be placed this afternoon. The pt states he is hungry, that is his biggest complaint on examination. He states he is always SOB and there has been no worsening of this recently, he denies CP or palpitations. Denies n/v. No diarrhea. Of note he underwent right AV fistula revision on 09/24/2018 and 10/12/2018. Home Medications Scheduled Aspirin (Aspirin EC) 81 Mg Tab, 81 MG PO DAILY, (Reported) Atorvastatin Calcium (Atorvastatin Calcium) 20 Mg Tab, 20 MG PO DAILY, (Reported) AT NOON Bacillus Coagulans (Bacid with Lactospore) 1 Cap Cap, 1 CAP PO BID, (Reported) Calcium Carbonate (Tums) 200 Mg Tab.chew, 500 MG PO QAM, (Reported) Cholecalciferol (Vitamin D3) (Vitamin D3) 1,000 Unit Tab, 1,000 UNITS PO DAILY, (Reported) Cyanocobalamin (Vitamin B-12) (Vitamin B-12) 500 Mcg Tab, 1,000 MCG PO DAILY, (Reported) Fluticasone Propionate (Flonase Allergy Relief) 9.9 Ml [place].susp, 2 SPRAY NA DAILY, (Reported) Gabapentin (Gabapentin) 100 Mg Cap, 100 MG PO DAILY, (Reported) AT NOON Insulin Aspart (Novolog Flexpen) 100 Unit/Ml Inj, 1 DOSE SC BID, (Reported) PER SLIDING SCALE WITH BREAKFAST AND DINNER Insulin Detemir (Levemir) 1 Units/0.01 Ml Susp, 16 UNITS SC 3XW, (Reported) QHS:TUES,THURS,SAT Lidocaine/Prilocaine (Lidocaine-Prilocaine Cream) 2.5%/2.5% Cream..g., 1 APLCT TOP ASDIRECTED, (Reported) APPLY TO DIALYSIS ACCESS SITE ONE HOUR PRIOR TO DIALYSIS Metoprolol Tartrate (Metoprolol Tartrate) 25 Mg Tab, 25 MG PO BID, (Reported) Pantoprazole Sodium (Pantoprazole Sodium) 40 Mg Tablet.dr, 40 MG PO DAILY, (Reported) Sevelamer Carbonate (Sevelamer Carbonate) 800 Mg Tab, 800 MG PO BID, (Reported) WITH BREAKFAST AND DINNER Vit B Comp No.3/Folic/C/Biotin (Nephro-Martin Rx Tablet) 1 Tab Tab, 1 TAB PO DAILY, (Reported) Warfarin Sodium (Warfarin Sodium) 5 Mg Tablet, 5 MG PO 3XW, (Reported) MON/THU/FRI Warfarin Sodium (Warfarin Sodium) 2 Mg Tablet, 4 MG PO 4XWK, (Reported) SUN///SAT Scheduled PRN Albuterol Sulfate (Ventolin Hfa) 108 Mcg/Act Aer, 2 PUFFS INH QID PRN for SHORTNESS OF BREATH, (Reported) Hydroxyzine HCl (Hydroxyzine HCl) 25 Mg Tablet, 25 MG PO BID PRN for ITCHING, (R eported) Nitroglycerin (Nitrostat) 0.4 Mg Subl, 0.4 MG SL NITRO PRN for ANGINA, (Reported) Allergies Coded Allergies: No Known Allergies (Verified , 03/03/17) Past Medical History Medical History as per hpi Surgical History 1. Pacemaker placement. 2. Arteriovenous (AV) graft for dialysis. 3. Hernia repair. Family History heart disease Social History * Smoker: former Smoker Alcohol: Denies Drugs: denies A-FIB/CHADSVASC A-FIB History Current/History of A-Fib/PAF?: Yes Current PO Anticoag Therapy: Yes Review of Systems Constitutional: Reports: Fatigue; Denies: Chills, Fever Pulmonary: Reports: Dyspnea; Denies: Cough Cardiovascular: Denies: Chest Pain, Palpitations, Edema, Lt Headedness Gastrointestinal: Denies: Nausea, Vomiting, Abdominal Pain, Diarrhea, Constipation Genitourinary: Denies: Dysuria Psych: Reports: Mood Normal Physical Examination General Exam: Positive: Alert, Cooperative, No Acute Distress Neck Exam: Positive: Supple Chest Exam: Positive: Diminished; Negative: Rales, Rhonchi, Wheezing Heart Exam: Positive: Rate Normal, Murmurs (systolic) Abdomen Exam: Positive: Normal bowel sounds, Soft; Negative: Tenderness, Hepatospenomegaly Extremity Exam: Positive: Other (left LE with transmetarsal amputation and chronic wound of dorsal aspect of calcaneus, appears to have healthy pinkish granulation tissue w/o pus or blood exudation, extends about 3 in superior on dorsal aspect of left LE); Negative: Cyanosis Skin Exam: Positive: Breakdown (as noted above) Psych Exam: Positive: Mood NL Vital Signs Vital Signs Date Time Temp Pulse Resp B/P (MAP) Pulse Ox O2 Delivery O2 Flow Rate FiO2 11/01/18 07:06 97.3 93 20 154/76 97 Room Air Laboratory Data Labs 24H Laboratory Tests 2 11/01/18 07:35: Immature Granulocyte % (Auto) 0.5, White Blood Count 9.1, Red Blood Count 3.31L, Hemoglobin 10.4L, Hematocrit 33.4L, Mean Corpuscular Volume 100.9H, Mean Corpuscular Hemoglobin 31.4, Mean Corpuscular Hemoglobin Concent 31.1L, Red Cell Distribution Width 16.5H, Platelet Count 102L, Neutrophils (%) (Auto) 70.4H, Lymphocytes (%) (Auto) 10.4L, Monocytes (%) (Auto) 15.3H, Eosinophils (%) (Auto) 3.0, Basophils (%) (Auto) 0.4, Neutrophils # (Auto) 6.4, Lymphocytes # (Auto) 1.0L, Monocytes # (Auto) 1.4H, Eosinophils # (Auto) 0.3, Basophils # (Auto) 0.0, Nucleated Red Blood Cells % (auto) 0.0, Prothrombin Time 21.0H, Prothromb Time International Ratio 1.78, Anion Gap 9, Glomerular Filtration Rate 7.9L, Blood Urea Nitrogen 61H, Creatinine 8.65*H, Sodium Level 142, Potassium Level 4.2, Chloride Level 105, Carbon Dioxide Level 28, Calcium Level 7.3L, Phosphorus Level 5.0H, Magnesium Level 2.2 11/01/18 14:29: Bedside Glucose (Misc Panel) 33*L 11/01/18 14:57: Bedside Glucose (Misc Panel) 65L CBC/BMP Laboratory Tests 11/01/18 07:35 Red Blood Count 3.31 L, Mean Corpuscular Volume 100.9 H, Mean Corpuscular Hemoglobin 31.4, Mean Corpuscular Hemoglobin Concent 31.1 L, Red Cell Distribution Width 16.5 H, Neutrophils (%) (Auto) 70.4 H, Lymphocytes (%) (Auto) 10.4 L, Monocytes (%) (Auto) 15.3 H, Eosinophils (%) (Auto) 3.0, Basophils (%) (Auto) 0.4, Neutrophils # (Auto) 6.4, Lymphocytes # (Auto) 1.0 L, Monocytes # (Auto) 1.4 H, Eosinophils # (Auto) 0.3, Basophils # (Auto) 0.0, Calcium Level 7.3 L Assessment/Plan 1. Dysfunctional right UE AV fistula -Vascular surgery has been consulted, appreciate their help -plan is for pt to have venous mapping study performed today with radiology, pt will also have perm cath placed today in anticipation of HD -pt is NPO for above procedures 2. IDDM2 -His BS has been a bit low, holding long acting Insulin for now, while he is NPO FSBS q6h, once he is eating we can transition him to sliding scale w/ hypoglycemic protocol and FSBS AC/HS -He has been given 1 Amp. D5W for low BS on the floor 3. A fib on AC -He is subtherapeutic with this, we have checked with Vascular and they stated it is OK for him to c/w Coumadin dosing for now, he may need it held tomorrow or Wed depending on the procedure planned for him, they stated they will keep us updated on this -INR for AM, home Coumadin dosing was continued for now -Rate controlled, c/w home Lopressor 4. HTN -C/w home medications, BP is stable 5. Neuropathic pain -c/w home gabapentin 6. Chronic Left LE wound - appears healthy with granulation tissue on examination, have placed wound care nursing consult in for further care-doesn't appear infected -he is followed by Dr Weinberg outpt, could consider telemedicine wound care cx w him tomorrow 7. DLP -c/w home atorvastatin 8. DVT px -pt is on Coumadin 9. ELISSA on cpap -he should continue to use his home settings on his cpap while hospitalized Plan / VTE VTE Prophylaxis Ordered?: Yes GME ATTESTATION GME ATTESTATION My faculty preceptor for this patient encounter was physically present during the encounter and was fully available. All aspects of the patient interview, examination, medical decision making process, and medical care plan development were reviewed and approved by the faculty preceptor. The faculty preceptor is aware and concurs with the plan as stated in the body of this note and will attest to such by his/her cosignature. ATTENDING NOTE I personally performed a history and physical examination of the patient and discussed the management with the resident. I reviewed the resident's note and agree with the documented findings and plan of care. LYNNE TINOCO DO Nov 01, 2018 16:05 QUAN GARZA MD Nov 03, 2018 05:33
[2018-11-01 16:28] LABS: INR 1.88
--- NOTE | 2018-11-01 16:34 | ROOPDOC ---
[facility] Report Of Operation Report of Operation DATE OF PROCEDURE: 11/01/18 PREPROCEDURE DIAGNOSES: End-stage renal disease on hemodialysis with poorly functioning right upper extremity AV fistula with multiple episodes of bleeding POSTPROCEDURE DIAGNOSES: Same PROCEDURE: 1. Ultrasound-guided access right internal jugular vein 2. Placement of a 23 cm PermCath right IJ SURGEON: Noah Mattson MD ANESTHESIA: Local anesthesia only, 15 mL lidocaine; the patient also received an amp of D50 for preprocedure blood glucose of 65. INDICATION FOR PROCEDURE: Mr. nelson is a very pleasant 73-year-old gentleman with a right Pantera fistula that has had multiple revisions due to ulceration and spontaneous bleeding. At this point, I feel the safest thing is for the patient to have a new AV access at the brachiocephalic AV fistula. In order to provide dialysis until this can be done, we will place a right IJ PermCath today. Risks benefits and alternatives were explained to the patient he is agreeable to proceed. Informed consent was obtained. INTERPRETATION: The PermCath is in good position in the right internal jugular vein with no kinks in the catheter and the tips were freely mobile at the SVC right atrial junction. There is no pneumothorax. PROCEDURE: The patient was brought to the anterior graphic suite in stable condition and placed supine on the fluoroscopic table. His right neck and chest were prepped and draped in sterile fashion. A timeout was performed. Local anesthesia was a museum tour guide to the skin and subcutaneous tissue in the right neck and over the clavicle to the right chest. A microneedle was used to access the right internal jugular vein under ultrasound guidance. A wire was passed through this access under fluoroscopic guidance into the central system and a micro- sheath was placed. A small incision was made at the jugular access site and on the right chest is distal to the clavicle. A 23 cm PermCath was tunneled from the right chest to the jugular access site. Then, 2 serial dilations were performed over the wire under fluoroscopic guidance. A peel-away sheath was then placed over the wire and the wire and inner cannula were removed. The tips of the catheter were advanced through the peel-away sheath into the central system under fluoroscopic guidance. They were not freely mobile, therefore a stiff Amplatz wire was passed through the catheter and the catheter was backed out and readvanced over the wire until the tips were freely mobile at the SVC right atrial junction. Following this, both ports to back and flushed easily. The catheter was in good position with no kinks in the catheter. The ports were both heparin locked and appropriate caps were placed. The jugular access site was irrigated with saline and then the deep and superficial dermal tissues were approximated with interrupted Monocryl sutures and Dermabond was used at the skin. The exit site at the right chest was closed with 2 Prolene sutures and the catheter was secured to the chest wall a additional Prolene sutures. Sterile dressings were applied. ESTIMATED BLOOD LOSS: Approximately 10 mL. COMPLICATIONS: None. PLAN: It is okay to use a right IJ PermCath for dialysis. Our plan is to place a brachiocephalic AV fistula, hopefully on Thursday, and ligate the radiocephalic fistula. It is okay to continue his Coumadin tonight, but we will hold his Coumadin tomorrow. Recommend checking an INR daily perioperatively. NOAH MATTSON MD Nov 01, 2018 16:34
[2018-11-01] MEDS ORDERED: WARFARIN SOD 5 MG TAB PO SCH (17:00)
[2018-11-01] MEDS: GABAPENTIN 100 MG CAP PO SCH (17:17)
[2018-11-01] MEDS: ATORVASTATIN 20 MG TAB PO SCH (17:17)
[2018-11-01] MEDS: (RENVELA) SEVELAMER **CARBONate** 800 MG TAB PO SCH (17:17)
[2018-11-01] MEDS: METOPROLOL TART 25 MG TABLET PO SCH (20:48)
[2018-11-01 22:00] VITALS: BP 113/73
[2018-11-02] MEDS: ACETAMINOPHEN TAB 650MG DOSE (2X325MG) PO PRN ×2 (02:32→20:37)
--- NOTE | 2018-11-02 05:52 | ECGEPIP ---
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
[2018-11-02 06:00] VITALS: BP 128/71
[2018-11-02 06:13] LABS: BASO # 0.1 10^3/uL (0.0-0.2); BASO % 0.6 % (0.0-1.0); EOS # 0.3 10^3/uL (0.0-0.50); EOS % 3.6 % (0.0-3.0); HEMATOCRIT 32.7 % (42.0-52.0); HEMOGLOBIN 10.5 g/dl (13.5-17.5); LYMPH # 1.1 10^3/uL (1.5-4.5); LYMPH % 13.7 % (24.0-44.0); MEAN CORPUSCULAR HGB CONC 32.1 g/dl (32.0-36.5); MEAN CORPUSCULAR VOLUME 99.7 fl (80.0-96.0); MONO # 1.3 10^3/uL (0.0-0.8); MONO % 15.9 % (0.0-5.0); NEUTROPHILS # 5.2 10^3/uL (1.8-7.7); NEUTROPHILS % 65.4 % (36.0-66.0); PLATELET COUNT, AUTOMATED 101 10^3/uL (150-450); RED BLOOD COUNT 3.28 10^6/uL (4.30-6.10)
[2018-11-02] MEDS: ATORVASTATIN 20 MG TAB PO SCH (06:26)
[2018-11-02 06:27] LABS: INR 2.11
[2018-11-02] MEDS: hydrOXYzine 25 MG TAB PO PRN (06:27)
[2018-11-02] MEDS: METOPROLOL TART 25 MG TABLET PO SCH ×2 (06:27→20:03)
[2018-11-02] MEDS: GABAPENTIN 100 MG CAP PO SCH (06:27)
[2018-11-02 06:54] LABS: CALCIUM LEVEL 7.1 MG/DL (8.8-10.2); CREATININE FOR GFR 9.52 MG/DL (0.70-1.30); GLOMERULAR FILTRATION RATE 7.1 (>42); POTASSIUM SERUM 4.9 MEQ/L (3.5-5.1)
[2018-11-02] MEDS: FLUTICASONE PROP 0.05% NASAL SPRAY 16 GM (FLONASE) SCH (07:53)
[2018-11-02] MEDS: PANTOPRAZOLE 40MG TAB (PROTONIX) PO SCH (07:53)
[2018-11-02] MEDS: NEPHRO-VIT TAB (NEPHROCAPS) PO SCH (07:53)
[2018-11-02] MEDS: VITAMIN D 1,000 INTERNATIONAL UNITS TABLET PO SCH (07:55)
[2018-11-02] MEDS: CYANOCOBALAMIN 500 MCG TAB PO SCH (07:55)
[2018-11-02] MEDS: ASPIRIN 81 MG ENTERIC TAB PO SCH (07:55)
[2018-11-02] MEDS: (RENVELA) SEVELAMER **CARBONate** 800 MG TAB PO SCH ×2 (07:55→17:18)
[2018-11-02] MEDS ORDERED: CALCIUM CARBONATE 500 MG CHEW U/D PO SCH (09:00)
[2018-11-02] MEDS ORDERED: HEPARIN 1,000 UNITS/ML 10ML VIAL (FOR RADIOLOGY& DIALYSIS ONLY) XX ONE (09:30)
[2018-11-02] MEDS ORDERED: GLUCOSE 4 GM CHEW TABLET PO PRN (10:00)
[2018-11-02] MEDS ORDERED: GLUCAGON FOR INJ 1 MG VIAL (J1610) SC PRN (10:00)
[2018-11-02] MEDS ORDERED: DEXTROSE 50% 50 ML SYRINGE IV PRN (10:00)
--- NOTE | 2018-11-02 12:19 | IPNPDOC ---
Date Seen The patient was seen on 11/02/18. Progress Note Patient seen and examined today postop day 1 from a right IJ PermCath placement yesterday due to persistent ulceration and bleeding of his right radiocephalic AV fistula. He is on Coumadin, and he was a little bit oozy during the procedure, and had a little bit of bleeding around the exit site on the right chest which the nurses dressed with a gauze dressing. He did not have any active bleeding this morning. His neck is soft and no firm hematoma is noted. He is just about to go to dialysis this morning. Typically, he has a Thursday patients but since he missed dialysis yesterday, he will have dialysis today. His right arm dressing is clean dry and intact and no new bleeding has occurred. We were able to schedule the patient for Thursday at 1 PM in the OR for a right brachiocephalic AV fistula creation. I went over the risks benefits and alternatives to a new AV access for the patient again today and he is still agreeable to proceed. We will plan to ligate the radiocephalic fistula after the new fistula was created, and over this will allow the ulceration to heal. We will obtain a consent when he gets back from dialysis. We will hold his Coumadin tonight and restart it tomorrow night after the procedure. He will be nothing by mouth after midnight. We will discuss with our nephrology colleagues and the dialysis unit to decide on the best schedule for his next dialysis since he will go to surgery tomorrow on his normal dialysis day. VS, I&O, 24H, Fishbone Vital Signs/I&O Vital Signs Date Time Temp Pulse Resp B/P (MAP) Pulse Ox O2 Delivery O2 Flow Rate FiO2 11/02/18 06:27 85 128/71 11/02/18 06:00 97.2 20 99 11/01/18 07:06 Room Air I&O- Last 24 Hours up to 6 AM 11/02/18 05:59 Intake Total 640 ml Balance 640 ml Laboratory Data 24H LABS Laboratory Tests 2 11/01/18 14:29: Bedside Glucose (Misc Panel) 33*L 11/01/18 14:57: Bedside Glucose (Misc Panel) 65L 11/01/18 16:03: Prothrombin Time 22.0H, Prothromb Time International Ratio 1.88 11/01/18 16:42: Bedside Glucose (Misc Panel) 127H 11/01/18 20:42: Bedside Glucose (Misc Panel) 130H 11/01/18 23:59: Bedside Glucose (Misc Panel) 129H 11/02/18 05:36: Immature Granulocyte % (Auto) 0.8, White Blood Count 8.0, Red Blood Count 3.28L, Hemoglobin 10.5L, Hematocrit 32.7L, Mean Corpuscular Volume 99.7H, Mean Corpu scular Hemoglobin 32.0, Mean Corpuscular Hemoglobin Concent 32.1, Red Cell Distribution Width 16.6H, Platelet Count 101L, Neutrophils (%) (Auto) 65.4, Lymphocytes (%) (Auto) 13.7L, Monocytes (%) (Auto) 15.9H, Eosinophils (%) (Auto) 3.6H, Basophils (%) (Auto) 0.6, Neutrophils # (Auto) 5.2, Lymphocytes # (Auto) 1.1L, Monocytes # (Auto) 1.3H, Eosinophils # (Auto) 0.3, Basophils # (Auto) 0.1, Nucleated Red Blood Cells % (auto) 0.0, Prothrombin Time 24.0H, Prothromb Time International Ratio 2.11, Anion Gap 10, Glomerular Filtration Rate 7.1L, Blood Urea Nitrogen 74H, Creatinine 9.52*H, Sodium Level 140, Potassium Level 4.9, Chloride Level 104, Carbon Dioxide Level 26, Calcium Level 7.1L 11/02/18 05:44: Bedside Glucose (Misc Panel) 123H CBC/BMP Laboratory Tests 11/02/18 05:36 Red Blood Count 3.28 L, Mean Corpuscular Volume 99.7 H, Mean Corpuscular Hemo globin 32.0, Mean Corpuscular Hemoglobin Concent 32.1, Red Cell Distribution Width 16.6 H, Neutrophils (%) (Auto) 65.4, Lymphocytes (%) (Auto) 13.7 L, Monocytes (%) (Auto) 15.9 H, Eosinophils (%) (Auto) 3.6 H, Basophils (%) (Auto) 0.6, Neutrophils # (Auto) 5.2, Lymphocytes # (Auto) 1.1 L, Monocytes # (Auto) 1.3 H, Eosinophils # (Auto) 0.3, Basophils # (Auto) 0.1, Calcium Level 7.1 L NOAH KAM MD Nov 02, 2018 12:19
[2018-11-02] MEDS: HumaLOG INSULIN (NovoLOG) PER UNIT SC SCH ×2 (13:15→17:18)
[2018-11-02 14:00] VITALS: BP 118/70
[2018-11-02] MEDS ORDERED: WARFARIN SOD 4 MG TAB PO SCH (17:00)
--- NOTE | 2018-11-02 17:41 | IPNPDOC ---
Text Note Date of Service The patient was seen on 11/02/18. NOTE Mr. Lobo is seen on rounds this afternoon, he had HD this morning via his right IJ PermCath which was placed yesterday. He feels well, he is watching television, he states he is short of breath but that is his normal, he doesn't have any chest pain, palpitations, nausea or vomiting. He feels well otherwise. ROS: 12 point ROS was reviewed with patient and otherwise negative except for pertinent positive findings above PE: Vitals: See below General: AAOx3, obese 73 yo male laying in bed, in NAD, speaking in full sentences, watching television HEENT: Neck is supple, JVD seems minimally elevated, moist mucus membranes Cardiac: Systolic murmur +2, normal s1 and s2, no other murmurs appreciated Lung: diminished throughout secondary to obese body habitus, no rales, wheezing or rhonchi appreciated Abdomen: obese, soft, non-distended, no pain to palpation, no hepatosplenomegaly or masses appreciated but hard to discern from body habitus , nabsx4 Extremities: right lower extremity shows trace edema, no cyanosis or mottling appreciated, 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 Dysfunctional right UE AV fistula -Vascular surgery has been consulted, appreciate their help-had right IJ PermCath placed yesterday, plan is tomorrow for OR for right brachiocephalic AV fistula creation and ligation of the radiocephalic fistula after the new fistula is created -pt is NPO after midnight for anticipated OR tomorrow, holding tonights dose of Coumadin 2. IDDM2 -His BS has been a bit low, holding long acting Insulin for now, he is ACHS with sliding scale but will be FSBS q6h once he is NPO 3. A fib on AC -INR 2.11 today, holding tonights Coumadin dose as discussed above -Was subtherapeutic yesterday with this -Rate controlled, c/w home Lopressor 4. HTN -C/w home medications, BP is stable 5. Neuropathic pain -c/w home gabapentin 6. Chronic Left LE wound - Wrapped on examination today, did not undress, dressing is clean and intact -c/w wound care nursing consult -he is followed by Dr Lenard virkpt 7. DLP -c/w home atorvastatin 8. DVT px -pt is on Coumadin 9. ELISSA on cpap -he should continue to use his home settings on his cpap while hospitalized VS,Fishbone, I+O VS, Fishbone, I+O Laboratory Tests 11/02/18 05:36 Red Blood Count 3.28 L, Mean Corpuscular Volume 99.7 H, Mean Corpuscular Hemoglobin 32.0, Mean Corpuscular Hemoglobin Concent 32.1, Red Cell Distribution Width 16.6 H, Neutrophils (%) (Auto) 65.4, Lymphocytes (%) (Auto) 13.7 L, Monocytes (%) (Auto) 15.9 H, Eosinophils (%) (Auto) 3.6 H, Basophils (%) (Auto) 0.6, Neutrophils # (Auto) 5.2, Lymphocytes # (Auto) 1.1 L, Monocytes # (Auto) 1.3 H, Eosinophils # (Auto) 0.3, Basophils # (Auto) 0.1, Calcium Level 7.1 L Vital Signs Date Time Temp Pulse Resp B/P (MAP) Pulse Ox O2 Delivery O2 Flow Rate FiO2 11/02/18 14:00 97.3 92 18 118/70 (86) 90 11/01/18 07:06 Room Air I&O- Last 24 Hours up to 6 AM 11/02/18 06:00 Intake Total 790 ml Balance 790 ml GME ATTESTATION GME ATTESTATION My faculty preceptor for this patient encounter was physically present during the encounter and was fully available. All aspects of the patient interview, examination, medical decision making process, and medical care plan development were reviewed and approved by the faculty preceptor. The faculty preceptor is aware and concurs with the plan as stated in the body of this note and will attest to such by his/her cosignature. ATTENDING NOTE I, Lona Gutierrez, have both independently examined this patient as well as r eviewed the documentation. I have discussed in detail with the resident the findings and plan of treatment as documented in the residents documentation and I agree with what is stated. I will continue to follow the patient and offer further guidance to the patients care as necessary during this hospital stay. LYNNE TINOCO DO Nov 02, 2018 17:41 LONA GUTIERREZ MD Nov 02, 2018 20:42
--- NOTE | 2018-11-02 21:10 | IPN ---
DATE: 11/02/2018 SUBJECTIVE: The patient was seen and examined the bedside today morning during hemodialysis procedure. He is tolerating the hemodialysis procedure well. He got the right internal jugular (IJ) tunneled hemodialysis catheter placed by vascular surgery yesterday. He denies any more bleeding from the right forearm arteriovenous (AV) fistula site. OBJECTIVE: Vital signs: Temperature is 97.3 degrees Fahrenheit, blood pressure 118/70, pulse 92, respiratory of 18, saturating 90% on room air. Intake and output: There is no urine output recorded. Weight in the bed scale was 140.91 kg. PHYSICAL EXAMINATION: GENERAL: The patient is awake, alert, oriented times three, lying in bed getting hemodialysis done. 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 Mucous membranes are moist. Neck is supple. He has a right IJ tunneled hemodialysis catheter. CARDIOVASCULAR: S1, S2, regular rate. Trace edema of the right lower extremity, 1+ edema of the left lower extremity. RESPIRATORY: Chest is clear to auscultation bilaterally. Bilateral equal air entry. No rales or rhonchi. ABDOMEN: Soft, obese. Positive bowel sounds. Nontender. MUSCULOSKELETAL: He has a dressing on the left foot, which has a transmetatarsal amputation. CENTRAL NERVOUS SYSTEM: No focal deficit. Power is 5/5 in bilateral upper extremities. AV ACCESS: He has a right forearm AV fistula with thrill and bruit. It is covered with a dressing, and he has a right IJ tunneled hemodialysis catheter which is being used for dialysis. LABORATORY REVIEW: CBC showed a WBC of 8, hemoglobin is 10.5, platelets are 101. BMP showed sodium 140, potassium 4.9, chloride 104, bicarbonate 26, BUN 72, creatinine is 9.5, calcium 7.1. CURRENT INPATIENT MEDICATIONS: The patient's medications were all reviewed by me. There is no change in the medications today as compared with yesterday. ASSESSMENT AND PLAN: 1. End-stage renal disease, on hemodialysis. The patient's regular dialysis days are Thursday, Thursday, Thursday, but he missed his dialysis yesterday. He is being dialyzed today. While he is inpatient this week, he will be continued on Thursday, , Thursday schedule, and he will be switched to his regular schedule next week. 2. Bleeding from right forearm AV fistula. AV fistula is not being used. The patient got right IJ tunneled hemodialysis catheter. The patient will be nothing by mouth overnight for left upper arm AV fistula placement by vascular surgery tomorrow. 3. Anemia and end-stage renal disease. Hemoglobin level is optimal. The patient will get Aranesp dose with hemodialysis. 4. Chronic atrial fibrillation. Continue current dose of metoprolol. Continue anticoagulation with Coumadin. MTDD
[2018-11-02 22:00] VITALS: BP 132/51
[2018-11-03] VITALS (48 sets, daily range): BP systolic 87–118; BP diastolic 52–81
[2018-11-03] MEDS ORDERED: CALCIUM CARBONATE 500 MG CHEW U/D PO PRN (02:15)
[2018-11-03 06:49] LABS: BASO % 0.5 % (0.0-1.0); EOS # 0.3 10^3/uL (0.0-0.50); HEMATOCRIT 33.2 % (42.0-52.0); HEMOGLOBIN 10.6 g/dl (13.5-17.5); LYMPH % 12.4 % (24.0-44.0); MEAN CORPUSCULAR HEMOGLOBIN 32.7 pg (27.0-33.0); MEAN CORPUSCULAR HGB CONC 31.9 g/dl (32.0-36.5); MEAN CORPUSCULAR VOLUME 102.5 fl (80.0-96.0); MONO # 1.4 10^3/uL (0.0-0.8); MONO % 17.1 % (0.0-5.0); NEUTROPHILS # 5.5 10^3/uL (1.8-7.7); NEUTROPHILS % 66.6 % (36.0-66.0); RED BLOOD COUNT 3.24 10^6/uL (4.30-6.10); WHITE BLOOD COUNT 8.3 10^3/uL (4.0-10.0)
[2018-11-03 06:50] LABS: PLATELET COUNT, AUTOMATED 81 10^3/uL (150-450)
[2018-11-03 06:55] LABS: INR 2.07; PROTHROMBIN TIME 23.7 SECONDS (12.1-14.4)
[2018-11-03 07:04] LABS: CALCIUM LEVEL 7.6 MG/DL (8.8-10.2); CREATININE FOR GFR 7.93 MG/DL (0.70-1.30); GLOMERULAR FILTRATION RATE 8.7 (>42); POTASSIUM SERUM 4.4 MEQ/L (3.5-5.1)
[2018-11-03] MEDS: HumaLOG INSULIN (NovoLOG) PER UNIT SC SCH ×4 (07:30→23:55)
[2018-11-03] MEDS: (RENVELA) SEVELAMER **CARBONate** 800 MG TAB PO SCH ×2 (08:00→18:00)
[2018-11-03] MEDS: NEPHRO-VIT TAB (NEPHROCAPS) PO SCH (08:05)
[2018-11-03] MEDS: PANTOPRAZOLE 40MG TAB (PROTONIX) PO SCH (08:05)
[2018-11-03] MEDS: ASPIRIN 81 MG ENTERIC TAB PO SCH (08:05)
[2018-11-03] MEDS: CYANOCOBALAMIN 500 MCG TAB PO SCH (08:05)
[2018-11-03] MEDS: METOPROLOL TART 25 MG TABLET PO SCH ×2 (08:05→20:08)
[2018-11-03] MEDS: GABAPENTIN 100 MG CAP PO SCH (08:06)
[2018-11-03] MEDS: ATORVASTATIN 20 MG TAB PO SCH (08:06)
[2018-11-03] MEDS: VITAMIN D 1,000 INTERNATIONAL UNITS TABLET PO SCH (08:06)
[2018-11-03] MEDS: FLUTICASONE PROP 0.05% NASAL SPRAY 16 GM (FLONASE) SCH (08:06)
[2018-11-03] MEDS: EUCERIN 120GM CREAM TOP SCH ×2 (09:00→21:43)
[2018-11-03] MEDS: DIAPER RELIEF PASTE (DESITIN) 60GM TOP SCH (09:00)
[2018-11-03] MEDS ORDERED: PROPOFOL 200 MG/20 ML VIAL As Ordered ONE (11:34)
[2018-11-03] MEDS ORDERED: LIDOCAINE 2% INJ 100 MG/5 ML SDV (FOR ANES.) As Ordered ONE (11:34)
[2018-11-03] MEDS ORDERED: fentaNYL 100 MCG/2 ML INJECTION (J3010) As Ordered ONE ×3 (11:34→15:55)
[2018-11-03] MEDS ORDERED: MIDAZOLAM INJ 2 MG/2 ML VIAL (J2250) As Ordered ONE ×2 (11:34→11:39)
[2018-11-03] MEDS ORDERED: ONDANSETRON 4MG/2ML VIAL (J2405) As Ordered ONE (11:34)
[2018-11-03] MEDS ORDERED: HEPARIN SOD (PORCINE) 5000 UNITS/ML VIAL As Ordered ONE (12:00)
[2018-11-03] MEDS ORDERED: LIDOCAINE 1% SDV INJ 30 ML VIAL As Ordered ONE (12:00)
--- NOTE | 2018-11-03 12:42 | IPNPDOC ---
Date Seen The patient was seen on 11/03/18. Progress Note Mr. Lobo is a 73-year-old gentleman with end-stage renal disease on hemodialysis with an ulcerated right radiocephalic AV fistula that has had multiple episodes of spontaneous bleeding despite revisions by Dr. Benjamin in the past. He was admitted with another spontaneous bleeding episode on Thursday, and this bleeding occurred prior to him getting dialysis. We took him to place a PermCath in the right internal jugular vein so he could have dialysis Thursday. Today we plan to bring him back to the operating room for ligation of the radiocephalic fistula and placement of a right brachiocephalic AV fistula. This proximalization of the fistula should have fairly rapid maturation due to i ncreased size of the veins secondary to previous fistula in the distal forearm. It should also allow the ulceration to heal since the fistula will no longer be accessed in that area. Ligating the fistula should prevent further bleeding episodes. The patient has been extensively counseled about risk benefits and alternatives. I reviewed his H&P and consult notes from his admission and there are no changes. We will proceed to the OR today. Informed consent has been obtained. VS, I&O, 24H, Fishbone Vital Signs/I&O Vital Signs Date Time Temp Pulse Resp B/P (MAP) Pulse Ox O2 Delivery O2 Flow Rate FiO2 11/03/18 08:05 84 112/62 11/03/18 06:00 96.9 18 100 11/02/18 22:23 2.0 11/01/18 07:06 Room Air I&O- Last 24 Hours up to 6 AM 11/03/18 06:00 Intake Total 1000 ml Output Total 5000 ml Balance -4000 ml Laboratory Data 24H LABS Laboratory Tests 2 11/02/18 13:06: Bedside Glucose (Misc Panel) 104 11/02/18 16:36: Bedside Glucose (Misc Panel) 140H 11/02/18 19:58: Bedside Glucose (Misc Panel) 154H 11/03/18 06:31: Immature Granulocyte % (Auto) 0.4, White Blood Count 8.3, Red Blood Count 3.24L, Hemoglobin 10.6L, Hematocrit 33.2L, Mean Corpuscular Volume 102.5H, Mean Corpuscular Hemoglobin 32.7, Mean Corpuscular Hemoglobin Concent 31.9L, Red Cell Distribution Width 16.5H, Platelet Count 81L, Neutrophils (%) (Auto) 66.6H, Lymphocytes (%) (Auto) 12.4L, Monocytes (%) (Auto) 17.1H, Eosinophils (%) (Auto) 3.0, Basophils (%) (Auto) 0.5, Neutrophils # (Auto) 5.5, Lymphocytes # (Auto) 1.0L, Monocytes # (Auto) 1.4H, Eosinophils # (Auto) 0.3, Basophils # (Auto) 0.0, Nucleated Red Blood Cells % (auto) 0.0, Immature Platelet Fraction 7.6, Prothrombin Time 23.7H, Prothromb Time International Ratio 2.07, Anion Gap 8, Glomerular Filtration Rate 8.7L, Blood Urea Nitrogen 54H, Creatinine 7.93H, Sodium Level 140, Potassium Level 4.4, Chloride Level 104, Carbon Dioxide Level 28, Calcium Level 7.6L CBC/BMP Laboratory Tests 11/03/18 06:31 Red Blood Count 3.24 L, Mean Corpuscular Volume 102.5 H, Mean Corpuscular Hemoglobin 32.7, Mean Corpuscular Hemoglobin Concent 31.9 L, Red Cell Distribution Width 16.5 H, Neutrophils (%) (Auto) 66.6 H, Lymphocytes (%) (Auto) 12.4 L, Monocytes (%) (Auto) 17.1 H, Eosinophils (%) (Auto) 3.0, Basophils (%) (Auto) 0.5, Neutrophils # (Auto) 5.5, Lymphocytes # (Auto) 1.0 L, Monocytes # (Auto) 1.4 H, Eosinophils # (Auto) 0.3, Basophils # (Auto) 0.0, Calcium Level 7.6 L NOAH KAM MD Nov 03, 2018 12:42
--- NOTE | 2018-11-03 12:48 | IPNPDOC ---
Text Note Date of Service The patient was seen on 11/03/18. NOTE Mr. Lobo is seen on rounds this morning, he is sitting at his bedside speaking to family friend. He is about to go to PACU for surgery for left AV fistula. He had HD yesterday, per Nephrology he will follow on a T, R, Sa schedule in house even though his normal outpt schedule is M,W,F. He is s/p right IJ PermCath, he is dialyzed through this right now. His right AV fistula is wrapped and not bleeding. It is not being used for HD. He feels well otherwise. He doesn't have any chest pain, palpitations, nausea or vomiting. He feels well otherwise. ROS: 12 point ROS was reviewed with patient and otherwise negative except for pertinent positive findings above PE: Vitals: See below General: AAOx3, obese 73 yo male sitting upright bed, in NAD, speaking in full sentences, speaking to a family friend HEENT: Neck is supple, JVD seems minimally elevated, moist mucus membranes Cardiac: Systolic murmur +2, normal s1 and s2, no other murmurs appreciated Lung: diminished throughout secondary to obese body habitus, no rales, wheezing or rhonchi appreciated Abdomen: obese, soft, non-distended, no pain to palpation, no hepatosplenomegaly or masses appreciated but hard to discern from body habitus , nabsx4 Extremities: right lower extremity shows trace edema, no cyanosis or mottling appreciated, 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 Right IJ has some dried blood around it but otherwise is not inflamed or erythematous. Plan: 1. Dysfunctional right UE AV fistula -Vascular surgery has been consulted, appreciate their help-s/p right IJ PermCath placed, he is going this morning to the OR for left brachiocephalic AV fistula creation and ligation of the radiocephalic fistula after the new fistula is created -pt is NPO , last nights dose of Coumadin was held 2. IDDM2 - Holding long acting Insulin for now, he is ACHS with sliding scale 3. A fib on AC -INR 2.07 today, last nights Coumadin dose was held in anticipation of OR this morning -Rate controlled, c/w home Lopressor 4. HTN - c/w home medications, BP is stable 5. Neuropathic pain -c/w home gabapentin 6. Chronic Left LE wound - Wrapped on examination today, did not undress, dressing is clean and intact -c/w wound care nursing consult, begin Desitin and Eucerin -he is followed by Dr Weinberg outpt 7. DLP -c/w home atorvastatin 8. DVT px -pt is on Coumadin 9. ELISSA on cpap -he should continue to use his home settings on his cpap while hospitalized VS,Fishbone, I+O VS, Fishbone, I+O Laboratory Tests 11/03/18 06:31 Red Blood Count 3.24 L, Mean Corpuscular Volume 102.5 H, Mean Corpuscular Hemoglobin 32.7, Mean Corpuscular Hemoglobin Concent 31.9 L, Red Cell Distribution Width 16.5 H, Neutrophils (%) (Auto) 66.6 H, Lymphocytes (%) (Auto) 12.4 L, Monocytes (%) (Auto) 17.1 H, Eosinophils (%) (Auto) 3.0, Basophils (%) (Auto) 0.5, Neutrophils # (Auto) 5.5, Lymphocytes # (Auto) 1.0 L, Monocytes # (Auto) 1.4 H, Eosinophils # (Auto) 0.3, Basophils # (Auto) 0.0, Calcium Level 7. 6 L Vital Signs Date Time Temp Pulse Resp B/P (MAP) Pulse Ox O2 Delivery O2 Flow Rate FiO2 11/03/18 08:05 84 112/62 11/03/18 06:00 96.9 18 100 11/02/18 22:23 2.0 11/01/18 07:06 Room Air I&O- Last 24 Hours up to 6 AM 11/03/18 06:00 Intake Total 1000 ml Output Total 5000 ml Balance -4000 ml GME ATTESTATION GME ATTESTATION My faculty preceptor for this patient encounter was physically present during the encounter and was fully available. All aspects of the patient interview, examination, medical decision making process, and medical care plan development were reviewed and approved by the faculty preceptor. The faculty preceptor is aware and concurs with the plan as stated in the body of this note and will attest to such by his/her cosignature. ATTENDING NOTE I, Lona Gutierrez, have independently examined this patient and performed my own p hysical exam, as well as reviewed the documentation and edited where necessary. I have discussed in detail with the resident / student the findings and plan of treatment as documented by the resident / student and edited their note. I agree with their findings and treatment plan and have edited their documentation. I will continue to follow the patient during this hospital stay. LYNNE TINOCO DO Nov 03, 2018 12:47 LONA GUTIERREZ MD Nov 03, 2018 13:38
[2018-11-03] MEDS ORDERED: ROCURONIUM BROMIDE 50 MG/5 ML VIAL As Ordered ONE (13:00)
[2018-11-03] MEDS ORDERED: ceFAZolin 2 GM/D5W 50 ML IV BAG (J0690 PER 500MG) As Ordered ONE (13:10)
[2018-11-03] MEDS ORDERED: PHENYLephrine HCL 500 MCG/5 ML (100MCG/ML) SYRINGE (J2370) As Ordered ONE (13:12)
[2018-11-03] MEDS ORDERED: ePHEDrine SULFATE 25 MG/5 ML(5MG/ML) SYRINGE As Ordered ONE (13:37)
[2018-11-03] MEDS ORDERED: METOCLOPRAMIDE INJ 10MG/2ML VIAL (J2765) As Ordered ONE (13:39)
[2018-11-03] MEDS ORDERED: PHENYLEPHRINE INJ 10MG/ML VIAL (J2370) As Ordered ONE (13:49)
[2018-11-03] MEDS ORDERED: SUGAMMADEX SODIUM 500 MG/5 ML VIAL (BRIDION) As Ordered ONE (14:30)
--- NOTE | 2018-11-03 15:25 | ROOPDOC ---
[facility] Report Of Operation Report of Operation DATE OF PROCEDURE: 11/03/18 PREPROCEDURE DIAGNOSES: 1. End-stage renal disease on hemodialysis 2. Ulcerated right Pantera AV fistula with frequent spontaneous bleeding POSTPROCEDURE DIAGNOSES: Same PROCEDURE: 1. Ligation right Pantera AV fistula 2. Right brachiocephalic AV fistula creation SURGEON: Noah Mattson MD ANESTHESIA: Gen. anesthesia and local INDICATION FOR PROCEDURE: Mr. Lobo is a very pleasant 73-year-old gentleman with end-stage renal disease who was admitted from the ER on Thursday with spontaneous bleed from his ulcerated Pantera AV fistula in the right upper extremity. The bleeding occurred before dialysis access, thus the patient was not able to be dialyzed at that time and was sent directly to the ER due to profuse bleeding. Upon examination in the ER, the bleeding has subsided due to constant pressure, but the ulceration was severe and I could see multiple nonabsorbable sutures through the skin and necrotic tissue from previous attempts to create hemostasis. I discussed with the patient that the best option at this point was likely for new axis creation. Dr. Benjamin has attempted multiple times to revise the fistula, but the ulceration and spontaneous bleeding episode persists. Therefore we placed a right IJ PermCath on Thursday so the patient could undergo dialysis in the interim while maturing a new AV fistula. Vein mapping of the bilateral upper extremities was reviewed. The patient has a large upper arm cephalic vein in the right upper extremity, already dilated from the forearm fistula, and I think this would be fairly easy temperature in a shorter period of time due to already being of substantial size. Risks benefits and alternatives to right brachiocephalic fistula creation and ligation of the Pantera fistula were explained to the patient and he was agreeable to proceed. Informed consent was obtained. PROCEDURE: Patient was brought to the OR in stable condition. He did not receive her right upper extremity nerve block due to therapeutic INR on Coumadin and difficulty finding IV access. He underwent general anesthesia and antibiotics without complication. His right upper extremity was prepped and draped in a sterile fashion. A timeout was performed. Local anesthesia was administered to the skin and subcutaneous tissue over the cephalic vein near the AV anastomosis in the wrist. A longitudinal incision was made over the vein and carried down through the subcutaneous duties tissue with Bovie cautery. Sharp dissection was used to isolate the vein circumferentially and a vascular loop was placed. Through a Vicryl suture was used to ligate the fistula. Next, a transverse incision was made just distal to the antecubital crease on the right upper extremity. This was carried down to subcutaneous tissue Bovie cautery. The cephalic vein was identified and skeletonized proximally and distally. Large branches were suture ligated and divided. Silk suture was placed distally for planned ligation prior to anastomosis. Next, we dissected down to the brachial artery and skeletonized this proximally and distally. Vesseloops were placed around the radial artery the ulnar artery and the brachial artery proximally. The Vesseloops were secured, and an 11 blade was used to create a 5 mm arteriotomy. The vein was then transected distally after placing a bulldog clamp proximally. The vein was anastomosis to the artery and an end-to-side fashion using 6-0 Prolene suture. Before the final sutures are placed, we flushed the inflow and outflow of the artery as well as backbled the vein. We irrigated with heparinized saline. The final sutures are placed in flow was restored to the vein and the inflow artery first and lastly flow was restored to the hands. Following this, the hand was warm and pink, and there was a strong Doppler signal at the palmar arch. There was a good thrill over the cephalic vein. We irrigated with copious amounts of saline at both incisions. The deep tissue of each incision was approximated with interrupted Vicryl sutures. This dermal tissue was approximated with running Vicryl suture. The skin was approximated with running subcuticular Monocryl suture. The incisions were dressed with Mastisol and Steri-Strips, covered with 2 x 2's and Tegaderm. The forearm ulceration was thoroughly cleaned and dressed with Xeroform, saline dampen 2 x 2's, and Tegaderm. The patient had significant bloody discharge under his PermCath dressing, so I remove this dressing sterilely, cleaned off the dry blood was sailing, cleaned the area with ChloraPrep, and placed a new dressing sterilely. Then the patient was allowed to awaken from anesthesia and was taken to PACU in stable condition. DRAINS: None SPECIMENS: None ESTIMATED BLOOD LOSS: Approximately 25 mL. COMPLICATIONS: None. PLAN: It is okay to continue the patient's Coumadin tonight. It is okay to discharge the patient when agreeable with our nephrology colleagues based on his plan dialysis schedule. Local wound care can be provided to the ulceration over the forearm. Tegaderm and gauze dressing over the wrist and antecubital incisions can be removed tomorrow, but the Steri-Strips should remain intact for 5-7 days to help the incisions to heal. Elevation of the right arm can help with swelling if it occurs. I will want to see the patient back in clinic in 2-3 weeks to check his AV fistula maturation. NOAH MATTSON MD Nov 03, 2018 15:25
[2018-11-03] MEDS ORDERED: PERCOCET 5MG/325MG TAB PO PRN (15:30)
[2018-11-03] MEDS ORDERED: PROPOFOL 1,000 MG/100 ML VIAL As Ordered ONE ×3 (16:06→18:14)
[2018-11-03] MEDS: PHENYLEPHRINE HCL INJ 10 MG in D5W 99 ML IV SCH ×2 (16:29→19:15)
[2018-11-03 16:48] LABS: ABG BASE EXCESS -3.8 (-2.0-2.0); ABG HCO3 22.2 MEQ/L (22.0-26.0); ABG O2 SATURATION 96.1 % (95.0-99.0); ABG PARTIAL PRESSURE CO2 44.3 mmHg (35.0-45.0); ABG PARTIAL PRESSURE O2 96.2 mmHg (75.0-100.0); ABG STANDARD HCO3 21.3 MEQ/L (22.0-26.0); ABG TOTAL CO2 23.6 MEQ/L (23.0-31.0); ABG pH (ARTERIAL) 7.318 UNITS (7.350-7.450)
[2018-11-03] MEDS: WARFARIN SOD 5 MG TAB PO SCH (17:00)
[2018-11-03 17:32] LABS: ALBUMIN 2.7 GM/DL (3.2-5.2); CALCIUM LEVEL 7.2 MG/DL (8.8-10.2); CREATININE FOR GFR 8.1 MG/DL (0.70-1.30); GLOMERULAR FILTRATION RATE 8.5 (>42); PHOSPHORUS LEVEL 5.4 MG/DL (2.5-4.9); POTASSIUM SERUM 4.6 MEQ/L (3.5-5.1)
[2018-11-03] MEDS: PROPOFOL 1,000 MG in APPROPRIATE DILUENT 1 EA IV SCH ×4 (18:30→22:34)
--- NOTE | 2018-11-03 18:37 | IPN ---
DATE: 11/03/2018 SUBJECTIVE: Patient was seen and examined at the bedside today morning. He is afebrile, hemodynamically stable. He was dialyzed yesterday; 5 liters of fluid was removed. Patient is going to have is a left upper arm atrioventricular (AV) fistula placed today by vascular surgery. OBJECTIVE VITAL SIGNS: Temperature is 96.9 degrees Fahrenheit, blood pressure 112/62, pulse is 84, respiratory of 18, saturating 100% on room air. INTAKE AND OUTPUT: Ultrafiltration with hemodialysis was 5 liters yesterday. Weight in the bed scale is not available. PHYSICAL EXAMINATION: GENERAL: Patient is awake, alert, oriented times three, laying in bed. 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 Otherwise, mucous membranes are moist. Neck is supple. He has a right internal jugular (IJ) tunneled hemodialysis catheter. CARDIOVASCULAR: S1, S2. Regular rate. Trace edema of the right lower extremity. RESPIRATORY: Chest is clear to auscultation bilaterally. Bilateral equal air entry. No rales or rhonchi. ABDOMEN: Soft, obese, positive bowel sounds. Nontender. MUSCULOSKELETAL: Dressing on the left foot and he has a transmetatarsal amputation as well. CENTRAL NERVOUS SYSTEM (PHARMACY SALESPERSON): No focal deficit. Power is 5/5 in bilateral upper extremities. Right eye blindness, as mentioned above. AV AXIS: Right forearm atrioventricular (AV) fistula site is covered with a dressing. LABORATORY REVIEW: Complete blood count (CBC) showed a WBC 8.3, hemoglobin 10.6, platelets are 81. Basic metabolic panel (BMP) showed sodium 140, potassium 4.4, chloride 104, bicarbonate 28, BUN 54, creatinine 7.9 CURRENT INPATIENT MEDICATIONS: Patient's medications were all reviewed by me. There is no change in the medications today as compared with yesterday. ASSESSMENT AND PLAN 1. End-stage renal disease on hemodialysis. Patient's regular dialysis days are Thursday, Thursday, Thursday; however, because of fistula bleed and placement of a tunneled catheter, he is off schedule. He is getting Thursday, , Thursday schedule. If patient is discharged today after the procedure, he will have to get his dialysis tomorrow morning as outpatient early in the morning and then he will be placed back to his Thursday, Thursday, Thursday schedule on coming [place]. 2. Malfunctioning of the right arm right forearm AV fistula and bleeding. Patient is going to have Rt arm AV fistula placed today. Right forearm is AV fistula will be ligated because of recurrent bleeding. 3. Anemia in end-stage renal disease. Hemoglobin is 10.6 which is optimal. MTDD
[2018-11-03] MEDS ORDERED: fentaNYL 100 MCG/2 ML INJECTION (J3010) IV PRN (19:15)
[2018-11-03] MEDS ORDERED: LR 1,000 ML IV SCH (19:15)
[2018-11-03] MEDS ORDERED: ONDANSETRON 4MG/2ML VIAL (J2405) IV PRN (19:15)
[2018-11-03] MEDS ORDERED: PROPOFOL 1,000 MG in APPROPRIATE DILUENT 1 EA IV SCH (19:19)
[2018-11-03] MEDS ORDERED: PROPOFOL 200 MG/20 ML VIAL ONE (19:46)
[2018-11-03] MEDS ORDERED: PHENYLephrine HCL 500 MCG/5 ML (100MCG/ML) SYRINGE (J2370) ONE (19:46)
--- NOTE | 2018-11-03 22:13 | CCN ---
DATE: 11/03/2018 CRITICAL CARE/VENTILATOR MANAGEMENT NOTE ATTENDING PHYSICIAN: Dr. Gutierrez REASON FOR CONSULTATION: Assistance with ventilator management. Mr. Lobo is a 73-year-old gentleman with end-stage renal disease, known valvular heart disease, diabetes mellitus and significant obstructive sleep apnea syndrome. He was admitted with difficulties with his dialysis graft. He was to get a replacement today, but it was unable to be performed. He was quite confused postoperatively, was not felt to be able to be extubated. I am now asked to assist in his care in that regard. Currently, in the recovery room, he is sedate. He is intubated. Chest x-ray is pending. Blood gas just done and pressure regulated volume control (PRVC) rate of 14, tidal volume 500, positive end-expiratory pressure (PEEP) 5, and FiO2 of 35%, has a pH of 7.318, pCO2 of 44.3 and pO2 of 96.2, saturation to 96%. Repeat laboratories are pending, but electrolytes from this morning show a sodium of 140, potassium 4.4, chloride 104, CO2 28, BUN 54, creatinine 7.93. White blood cell count 8.3, hemoglobin 10.6, platelet count 81,000. INR of 2. Currently on examination, he is sedate. He does respond to stimuli. Pupils do react. Sclerae clear. Orotracheal and orogastric tube are in place. Tongue is generous and airway difficult to assess, but at least appears to be a Mallampati III to IV. Jugular venous system does appear full. Chest shows diminished but symmetric expansion. He has a right subclavian dialysis catheter. Pacemaker generator palpable at pectoralis region. No focal wheeze, rhonchus or rub. I do believe there are dependent crackles. Cardiac exam is distant generally. It is irregular. Peripheral pulses markedly diminished and at least 1+ to 2+ pitting of lower extremity on the right. Left has surgical dressings in place. There is a harsh systolic murmur heard best at the base. Abdomen obese, soft, with active bowel sounds, although they are diminished. No obvious organomegaly or masses. Extremities show surgical absence of the distal left foot. No cyanosis or clubbing. Neurologically, he is sedate, but does move extremities when stimulated. Chest x-ray is currently pending. MOST PRESENT PROBLEMS REQUIRING MY PRESENCE AT BEDSIDE: 1. Respiratory failure secondary to postoperative status and mental status alteration. 2. Obstructive sleep apnea syndrome. 3. Metabolic acidosis, multifactorial. 4. Valvular heart disease. 5. Diabetes mellitus. 6. End-stage renal disease on dialysis. 7. Atrial fibrillation. 8. Pacemaker status. 9. Chronic anticoagulation. At this point, he has been sedated, had some confusion, and given his airway issues and the fact that he has severe underlying obstructive sleep apnea syndrome, I am not at all in disagreement with continuing mechanical ventilatory support tonight. He is planning to go back to the operating room (OR) at some point, and we need to check with vascular surgery to see when that is, because if it is really in the next 24 hours, then it would make the most sense to leave him intubated. If it is not going to be for several days, then we will try to wean him at least to a noninvasive mask within the next 18 hours. I have spoken with Dr. Gutierrez, who is in charge of his care from the primary service. He will address the other issues at hand. At this point, he remains critically ill. I left the bedside at 1713 hours. A total of 33 minutes of critical care time at the bedside, not including procedures.
[2018-11-04] VITALS (53 sets, daily range): BP systolic 85–110; BP diastolic 50–78
[2018-11-04] MEDS: PROPOFOL 1,000 MG in APPROPRIATE DILUENT 1 EA IV SCH ×5 (00:24→23:32)
[2018-11-04 04:17] LABS: BASO # 0.1 10^3/uL (0.0-0.2); BASO % 0.7 % (0.0-1.0); EOS # 0.2 10^3/uL (0.0-0.50); HEMATOCRIT 33.5 % (42.0-52.0); HEMOGLOBIN 10.7 g/dl (13.5-17.5); LYMPH # 1.3 10^3/uL (1.5-4.5); MEAN CORPUSCULAR HEMOGLOBIN 31.8 pg (27.0-33.0); MEAN CORPUSCULAR HGB CONC 31.9 g/dl (32.0-36.5); MEAN CORPUSCULAR VOLUME 99.7 fl (80.0-96.0); MONO # 1.1 10^3/uL (0.0-0.8); MONO % 14.8 % (0.0-5.0); NEUTROPHILS # 4.6 10^3/uL (1.8-7.7); NEUTROPHILS % 62.8 % (36.0-66.0); RED BLOOD COUNT 3.36 10^6/uL (4.30-6.10); WHITE BLOOD COUNT 7.2 10^3/uL (4.0-10.0)
[2018-11-04 04:20] LABS: PLATELET COUNT, AUTOMATED 89 10^3/uL (150-450)
[2018-11-04 04:28] LABS: INR 2.32; PROTHROMBIN TIME 25.3 SECONDS (11.8-14.0)
[2018-11-04 04:50] LABS: CALCIUM LEVEL 7.6 MG/DL (8.8-10.2); CREATININE FOR GFR 8.87 MG/DL (0.70-1.30); GLOMERULAR FILTRATION RATE 7.7 (>42); POTASSIUM SERUM 4.2 MEQ/L (3.5-5.1)
[2018-11-04] MEDS: HumaLOG INSULIN (NovoLOG) PER UNIT SC SCH ×3 (06:00→18:00)
[2018-11-04 06:19] LABS: ABG BASE EXCESS -1.3 (-2.0-2.0); ABG HCO3 21.9 MEQ/L (22.0-26.0); ABG O2 SATURATION 96.7 % (95.0-99.0); ABG PARTIAL PRESSURE CO2 31.8 mmHg (35.0-45.0); ABG PARTIAL PRESSURE O2 92.3 mmHg (75.0-100.0); ABG STANDARD HCO3 23.3 MEQ/L (22.0-26.0); ABG TOTAL CO2 22.8 MEQ/L (23.0-31.0); ABG pH (ARTERIAL) 7.455 UNITS (7.350-7.450)
--- NOTE | 2018-11-04 07:36 | REP ---
Portable chest, 05:11 p.m., single AP view with the patient sitting: Studies performed for ET tube placement. The tip of the endotracheal tube is at the level of the aortic arch, above the leighton, in satisfactory position. There is a dual lumen right IJ central venous catheter with the tip in the right atrium in satisfactory location. There is no pneumothorax or pleural fluid collection. There is discoid atelectasis in the right mid lung. There is global cardiomegaly, unchanged. There is a pacemaker, unchanged. Electronically Signed by Sam Luis MD 11/04/2018 07:27 A
[2018-11-04] MEDS: (RENVELA) SEVELAMER **CARBONate** 800 MG TAB PO SCH ×2 (08:00→18:00)
--- NOTE | 2018-11-04 08:42 | REP ---
Portable chest x-ray: Single view. History: Ventilated patient. Comparison study: November 03, 2018. Findings: A right-sided tunneled central venous catheter seen in place with its tip in the expected location of the SVC right atrial junction. An NG tube enters left upper quadrant. Endotracheal tube is seen in good position at the level of the proximal clavicles. There is moderate cardiomegaly. Hazy opacity at the left base suggests pleural effusion obscuring left hemidiaphragm. There is discoid atelectasis in the perihilar regions bilaterally. Pulmonary vasculature is somewhat congested. Electronically Signed by Wing Bowman MD 11/04/2018 08:34 A
--- NOTE | 2018-11-04 08:56 | IPNPDOC ---
Date Seen The patient was seen on 11/04/18. Progress Note Mr. nelson is a very pleasant 73-year-old patient status post a right IJ PermCath placement postop day 3, and a right Pantera fistula ligation and right brachiocephalic fistula creation postoperative day 1. Upon awakening from anesthesia, the patient was very confused and they did not feel it was safe to extubate him at that time. He was then transferred to ICU ventilated and remained so overnight. We are hopeful that he will be able to be extubated today. Family is at the bedside and I had a discussion with her about his status. We discussed management of his right upper extremity went at discharge. We discussed the possibility of extubation versus ongoing ventilation depending on his status today. On exam, the patient has an excellent thrill over the new brachiocephalic AV fistula. The dressing is clean dry and intact. We will leave the Tegaderm and gauze dressings on for today, and tomorrow the Steri-Strips at the antecubital incision and at the wrist can be left open to air. The incision for fistula irrigation at the wrist is also clean dry and intact. The ulceration over the mid forearm has no new bleeding after removal of multiple ingrown nonabsorbable sutures during the procedure yesterday. This is dressed with bacitracin, Xeroform, dry gauze and Tegaderm. Hopefully this will be able to heal now that the fistula was ligated and it is not receiving constant re-accessing for dialysis. I discussed with the patient's family that this can be dressed with a dry dressing after a few days. His arm is somewhat swollen, not unexpected with fistula ligation. Some venous congestion will occur, but it will improve over the next few weeks. Elevation of the extremity above the level of the heart at least 30 minutes 4 times a day will be helpful. He is on anticoagulation which is also helpful, and management of his volume status with dialysis will also assist in this process. We will continue to follow along in her hopeful that the patient will be able to be extubated today. We will continue to manage his right upper extremity incisions while he is inpatient. VS, I&O, 24H, Fishbone Vital Signs/I&O Vital Signs Date Time Temp Pulse Resp B/P (MAP) Pulse Ox O2 Delivery O2 Flow Rate FiO2 11/04/18 07:47 21 11/04/18 07:31 97.2 77 19 99/61 (74) 97 11/04/18 06:19 Ventilator 11/03/18 11:43 2 I&O- Last 24 Hours up to 6 AM 11/04/18 06:00 Intake Total 1204.0 ml Output Total 25 ml Balance 1179.0 ml Laboratory Data 24H LABS Laboratory Tests 2 11/03/18 16:35: Blood Gas Bicarbonate Standard 21.3L, Arterial Blood pH 7.318L, Arterial Blood Partial Pressure CO2 44.3, Arterial Blood Partial Pressure O2 96.2, Arterial Blood Total CO2 23.6, Arterial Blood HCO3 22.2, Arterial Blood Base Excess - 3.8L, Arterial Blood Oxygen Saturation 96.1 11/03/18 16:47: Bedside Glucose (Misc Panel) 100 11/03/18 16:50: Blood Urea Nitrogen 57H, Creatinine 8.10*H, Sodium Level 142, Potassium Level 4.6, Chloride Level 105, Carbon Dioxide Level 25, Anion Gap 12, Glomerular Filtration Rate 8.5L, Calcium Level 7.2L, Phosphorus Level 5.4H, Albumin 2.7L 11/03/18 18:20: Bedside Glucose (Misc Panel) 99 11/03/18 23:50: Bedside Glucose (Misc Panel) 103 11/04/18 04:05: Immature Granulocyte % (Auto) 0.7, White Blood Count 7.2, Red Blood Count 3.36L, Hemoglobin 10.7L, Hematocrit 33.5L, Mean Corpuscular Volume 99.7H, Mean Corpuscular Hemoglobin 31.8, Mean Corpuscular Hemoglobin Concent 31.9L, Red Cell Distribution Width 16.5H, Platelet Count 89L, Neutrophils (%) (Auto) 62.8, Lymphocytes (%) (Auto) 18.0L, Monocytes (%) (Auto) 14.8H, Eosinophils (%) (Auto) 3.0, Basophils (%) (Auto) 0.7, Neutrophils # (Auto) 4.6, Lymphocytes # (Auto) 1.3L, Monocytes # (Auto) 1.1H, Eosinophils # (Auto) 0.2, Basophils # (Auto) 0.1, Nucleated Red Blood Cells % (auto) 0.0, Prothrombin Time 25.3H, Prothromb Time International Ratio 2.32, Anion Gap 12, Glomerular Filtration Rate 7.7L, Blood Urea Nitrogen 63H, Creatinine 8.87*H, Sodium Level 142, Potassium Level 4.2, Chloride Level 105, Carbon Dioxide Level 25, Calcium Level 7.6L 11/04/18 06:03: Bedside Glucose (Misc Panel) 96, Blood Gas Bicarbonate Standard 23.3, Arterial Blood pH 7.455H, Arterial Blood Partial Pressure CO2 31.8L, Arterial Blood Partial Pressure O2 92.3, Arterial Blood Total CO2 22.8L, Arterial Blood HCO3 21.9L, Arterial Blood Base Excess -1.3, Arterial Blood Oxygen Saturation 96.7 CBC/BMP Laboratory Tests 11/03/18 16:50 Anion Gap 12 11/04/18 04:05 Red Blood Count 3.36 L, Mean Corpuscular Volume 99.7 H, Mean Corpuscular Hemoglobin 31.8, Mean Corpuscular Hemoglobin Concent 31.9 L, Red Cell Distribution Width 16.5 H, Neutrophils (%) (Auto) 62.8, Lymphocytes (%) (Auto) 18.0 L, Monocytes (%) (Auto) 14.8 H, Eosinophils (%) (Auto) 3.0, Basophils (%) (Auto) 0.7, Neutrophils # (Auto) 4.6, Lymphocytes # (Auto) 1.3 L, Monocytes # (Auto) 1.1 H, Eosinophils # (Auto) 0.2, Basophils # (Auto) 0.1, Calcium Level 7.6 L NOAH KAM MD Nov 04, 2018 08:56
[2018-11-04] MEDS: NEPHRO-VIT TAB (NEPHROCAPS) PO SCH (09:00)
[2018-11-04] MEDS: METOPROLOL TART 25 MG TABLET PO SCH ×2 (09:00→21:00)
--- NOTE | 2018-11-04 09:41 | CCN ---
DATE OF VISIT: 11/04/2018 START TIME: 0835 hours STOP TIME: 0910 hours I again attended Irwin Lobo here in the intensive care unit. The patient has been examined and chart reviewed. I have spoken at length with nursing staff as well as Dr. Gutierrez. Overnight, he has had no hemodynamic issues. T-max overnight 97.5, heart rate between 70-80. Blood pressure 80-110 systolic. Respiratory rate generally between 18 and 22 without obvious accessory muscle use. He remains dialysis dependent. Blood gases done this morning on PRVC rate of 18, tidal volume 500, PEEP of 5, FiO2 of 35% shows pH of 7.455, pCO2 of 31.8, pO2 92.3. Chest x-ray shows cardiomegaly and vascular congestion. White blood cell count 7.2, hemoglobin 10.7, platelet count 89,000. 62% segs, no bands. Sodium 142, potassium 4.5, chloride 105, CO2 25, BUN 63, creatinine 8.87. On exam, he is sedate with low dose propofol, but does move all extremities. Pupils do reactive. Membranes are moist. Trachea is in the midline. Chest shows diminished, but symmetric expansion. There are dependent crackles. The rarest of rhonchi. No significant focal adventitious breath sounds are identified. Cardiac exam is regular. Peripheral pulses are markedly diminished. Edema is unchanged. Murmur is unchanged as well. Abdomen obese, soft. There are active bowel sounds. No obvious organomegaly or masses. Extremities show no cyanosis or clubbing. Neurologically, he is sedate, but moves all extremities. The most present problems requiring my presence at bedside: 1. Respiratory failure requiring mechanical ventilatory support, multifactorial. 2. End stage renal disease (ESRD). 3. Obstructive sleep apnea syndrome with variable compliance. 4. Diabetes mellitus. 5. Vascular disease. He is currently on dialysis so we were unable to work with him further at the moment regarding extubation plans. We need to talk with vascular surgery to see if there are any more procedures planned. If there are not then hopefully we would be able to work with him to get him extubated later this afternoon. My plan would be to extubate him right to noninvasive support in view of his marginal status and his known very significant underlying obstructive sleep apnea (ELISSA). I have spoken with Dr. Gutierrez and will proceed as outlined above. Ulcer and deep vein thrombosis (DVT) prophylaxis are in place. At this point, he remains critically ill overall due to his multiorgan dysfunction. I left the bedside at 0910 hours. 35 minutes of critical care time were delivered at the bedside, not including procedures. NOMI
--- NOTE | 2018-11-04 12:37 | IPNPDOC ---
Text Note Date of Service The patient was seen on 11/04/18. NOTE Mr. Lobo is seen on rounds this morning, he is in the ICU. He is mechanically ventilated and sedated, daughter and are at bedside. Apparently after the creation of his right brachiocephalic fistula yesterday, he was too confused to be safely extubated post-op. As such he was transferred to the ICU for further management, critical care/pulm was also consulted at that time. ROS is obviously unachievable as he is not responding to verbal nor sternal stimulation. ROS: Unobtainable as described above PE: Vitals: See below General: AAOx3, obese 73 yo male, mechanically ventilated, sedated in the ICU HEENT: Neck is supple, JVD seems minimally elevated, moist mucus membranes, right perm cath site is clean, no erythema or swelling, dressing is clean, dry and intact Cardiac: Systolic murmur +2, normal s1 and s2, no other murmurs appreciated Lung: no rales, wheezing or rhonchi appreciated but hard to discern over mechanical vent sounds Abdomen: obese, soft, non-distended, no pain to palpation, no hepatosplenomegaly or masses appreciated but hard to discern from body habitus , [id number] Extremities: right lower extremity shows trace edema, no cyanosis or mottling appreciated, left LE with transmetarsal amputation and chronic wound of dorsal aspect of calcaneus, it is currently wrapped, did not undress it today, right dressing over ligated mid arm AV fistula is dry and intact, right wrist incision covering is also dry and intact, new right brachiocephalic fistula has good thrill, also dressing appears dry and intact, some swelling to right UE Plan: 1. Dysfunctional right UE AV fistula -post op day 1 of new r brachiocephalic fistula creation and right Pantera fistula ligation, no further intervention is being planned by vascular surgery at this time, have spoken to them this morning -he is to be dialyzed today via right perm cath 2. Post-op confusion - remained intubated; requiring mechanical ventilation for airway protection -Dr Masterson, managing, appreciate his help -Pt hopefully to be extubated this afternoon to noninvasive if possible -Nephrology consulted, appreciate their help, holding anti-hypertensive medications, pt is being administered albumin 3. IDDM2 - Holding long acting Insulin for now, he is ACHS with sliding scale 4. A fib on AC -INR 2.32 today -we can resume his Coumadin dose once extubated and tolerating PO -Rate controlled, c/w home Lopressor 4. HTN - c/w home medications, BP is stable, once tolerating PO 5. Neuropathic pain -c/w home gabapentin once tolerating PO 6. Chronic Left LE wound - Wrapped on examination today, did not undress, dressing is clean and intact again -c/w wound care nursing consult, begin Desitin and Eucerin -he is followed by Dr Weinberg outpt 7. DLP -c/w home atorvastatin once tolerating PO 8. DVT px -pt is on Coumadin 9. ELISSA on cpap -mechanically ventilated currently -he should continue to use his home settings on his cpap while hospitalized VS,Fishbone, I+O VS, Fishbone, I+O Laboratory Tests 11/03/18 16:50 Anion Gap 12 11/04/18 04:05 Red Blood Count 3.36 L, Mean Corpuscular Volume 99.7 H, Mean Corpuscular Hemoglobin 31.8, Mean Corpuscular Hemoglobin Concent 31.9 L, Red Cell Distribution Width 16.5 H, Neutrophils (%) (Auto) 62.8, Lymphocytes (%) (Auto) 18.0 L, Monocytes (%) (Auto) 14.8 H, Eosinophils (%) (Auto) 3.0, Basophils (%) (Auto) 0.7, Neutrophils # (Auto) 4.6, Lymphocytes # (Auto) 1.3 L, Monocytes # (Auto) 1.1 H, Eosinophils # (Auto) 0.2, Basophils # (Auto) 0.1, Calcium Level 7.6 L Vital Signs Date Time Temp Pulse Resp B/P (MAP) Pulse Ox O2 Delivery O2 Flow Rate FiO2 11/04/18 11:44 21 11/04/18 11:03 98 Ventilator 11/04/18 10:36 19 11/04/18 09:30 88 91/54 (66) 11/04/18 07:31 97.2 11/03/18 11:43 2 I&O- Last 24 Hours up to 6 AM 11/04/18 06:00 Intake Total 1204.0 ml Output Total 25 ml Balance 1179.0 ml GME ATTESTATION GME ATTESTATION My faculty preceptor for this patient encounter was physically present during the encounter and was fully available. All aspects of the patient interview, examination, medical decision making process, and medical care plan development were reviewed and approved by the faculty preceptor. The faculty preceptor is aware and concurs with the plan as stated in the body of this note and will attest to such by his/her cosignature. ATTENDING NOTE I, Lona Gutierrez, have independently examined this patient and performed my own physical exam, as well as reviewed the documentation and edited where necessary. I have discussed in detail with the resident / student the findings and plan of treatment as documented by the resident / student and edited their note. I agree with their findings and treatment plan and have edited their documentation. I will continue to follow the patient during this hospital stay. LYNNE TINOCO DO Nov 04, 2018 12:37 LONA GUTIERREZ MD Nov 04, 2018 14:33
[2018-11-04 13:58] LABS: ABG BASE EXCESS 0.8 (-2.0-2.0); ABG HCO3 24.6 MEQ/L (22.0-26.0); ABG O2 SATURATION 93.1 % (95.0-99.0); ABG PARTIAL PRESSURE CO2 36.5 mmHg (35.0-45.0); ABG PARTIAL PRESSURE O2 73.8 mmHg (75.0-100.0); ABG STANDARD HCO3 25.1 MEQ/L (22.0-26.0); ABG TOTAL CO2 25.7 MEQ/L (23.0-31.0); ABG pH (ARTERIAL) 7.446 UNITS (7.350-7.450)
[2018-11-04] MEDS: CYANOCOBALAMIN 500 MCG TAB PO SCH (14:06)
[2018-11-04] MEDS: ASPIRIN 81 MG CHEW TABLET NG SCH (14:06)
[2018-11-04] MEDS: PANTOPRAZOLE 40MG INJ (PROTONIX) (C9113) IV SCH (14:07)
[2018-11-04] MEDS: GABAPENTIN 100 MG CAP PO SCH (14:07)
[2018-11-04] MEDS: VITAMIN D 1,000 INTERNATIONAL UNITS TABLET PO SCH (14:07)
[2018-11-04] MEDS: ATORVASTATIN 20 MG TAB PO SCH (14:07)
[2018-11-04] MEDS: hydrOXYzine 25 MG TAB PO PRN (14:07)
[2018-11-04] MEDS: EUCERIN 120GM CREAM TOP SCH ×2 (14:08→21:50)
[2018-11-04] MEDS: FLUTICASONE PROP 0.05% NASAL SPRAY 16 GM (FLONASE) SCH (14:08)
[2018-11-04] MEDS: DIAPER RELIEF PASTE (DESITIN) 60GM TOP SCH (14:08)
[2018-11-04] MEDS: WARFARIN SOD 5 MG TAB PO SCH (18:01)
--- NOTE | 2018-11-04 20:14 | IPN ---
DATE: 11/04/2018 SUBJECTIVE The patient was seen and examined at the bedside today morning in the ICU. Last 24-hour events were noted. The patient went to the OR with vascular surgery yesterday. He got the ligation of his right forearm AV fistula done because of recurrent bleeding and he got right brachial cephalic fistula surgery. After the surgery in the recovery unit, the patient was still very confused and agitated so it was not safe to extubate the patient. He was transferred to ICU. He remained of the vent. I saw and examined him today. He is sedated with propofol. Blood pressures are low in the morning. He has been started on hemodialysis. Because of his low blood pressures cannot able to remove much fluid. So he had to receive albumin with dialysis so we can optimize his fluid status. The patient is unable to provide any review of systems. He is sedated. His family members were also present at the bedside. OBJECTIVE Vital signs: Temperature is 97.2 degrees Fahrenheit, blood pressure is 91/54, pulse is 88, respiratory rate of 17, saturating 98% on the vent with at 21% FIO2. Intake and output: There is no urine output recorded. Estimated blood loss was around 25 mL yesterday. Weight in the bed scale is 143.8 mL. PHYSICAL EXAMINATION General: The patient is intubated, sedated, laying in bed, getting hemodialysis done. 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 Left pupil is reactive to light. Neck is supple. He has a right IJ tunneled hemodialysis catheter which is being used for dialysis. Cardiovascular: S1, S2, regular rate. Trace edema of the right lower extremity. Respiratory: Mildly decreased breath sounds at the bases, otherwise no active rales or rhonchi. Abdomen: Soft, obese, positive bowel sounds. Nontender. Musculoskeletal: He has a dressing on the left heel and he has left transmetatarsal amputation. RENAL DIETITIAN: The patient is intubated and sedated, otherwise he moves to painful stimuli. LAB REVIEW: CBC showed WBC 7.2, hemoglobin 10.7, platelets are 89. ABG done today morning showed pH 7.45, pCO2 31, pO2 92, bicarb is 21, oxygen sat 96.7%. BMP today morning showed sodium 142, potassium 4.2, chloride 105, bicarb 25, BUN 63, creatinine is 8.8. IMAGING STUDIES A chest x-ray was done today morning which showed mild pulmonary vascular congestion. NG tube is in left upper quadrant of abdomen. Endotracheal tube was in good position. CURRENT INPATIENT MEDICATIONS: The patient's medications were all reviewed by me. He is currently on propofol. He was given fentanyl yesterday for pain. He continues to be on metoprolol 25 mg twice a day. ASSESSMENT/PLAN 1. End-stage renal disease on hemodialysis. The patient's regular dialysis days are Thursday, Thursday, Thursday. However inpatient he is being dialyzed Thursday, , Thursday. The patient is being dialyzed at this point. However, because of hypotension I have ordered albumin 25% 12.5 grams two doses to be given during dialysis. I will try to remove at least 1.5 kg of fluid so we can extubate the patient. 2. Vent dependent respiratory failure. The patient was obtunded and agitated yesterday. His FIO2 requirement on the vent is only 21%. Fluid status is being optimized. I am hopeful that we should be able to extubate him either tonight or tomorrow morning. 3. Postop day #1 status post a right brachiocephalic fistula creation. The patient's right forearm AV fistula was having recurrent bleeding. It has been ligated now. Right brachiocephalic fistula has good thrill and bruit. I am hopeful that we should be able to start using it within a month. 4. Anemia and end-stage renal disease. Hemoglobin is 10.7 which is optimal. 5. Chronic kidney disease, mineral bone disease. Renvela can be held because the patient is n.p.o. at this point. 6. Chronic atrial fibrillation. Heart rate is controlled. Continue the metoprolol. The patient is being anticoagulated with warfarin. Total critical care time spent in the management of this patient today morning in the ICU is 40 minutes; that does not include any procedures.
[2018-11-05] VITALS (54 sets, daily range): BP systolic 80–111; BP diastolic 50–64
[2018-11-05 04:41] LABS: BASO % 0.4 % (0.0-1.0); EOS # 0.2 10^3/uL (0.0-0.50); EOS % 2.3 % (0.0-3.0); HEMATOCRIT 33.2 % (42.0-52.0); HEMOGLOBIN 10.7 g/dl (13.5-17.5); LYMPH # 1.1 10^3/uL (1.5-4.5); LYMPH % 15.2 % (24.0-44.0); MEAN CORPUSCULAR HEMOGLOBIN 32.7 pg (27.0-33.0); MEAN CORPUSCULAR HGB CONC 32.2 g/dl (32.0-36.5); MEAN CORPUSCULAR VOLUME 101.5 fl (80.0-96.0); MONO # 1.2 10^3/uL (0.0-0.8); MONO % 16.4 % (0.0-5.0); NEUTROPHILS # 4.9 10^3/uL (1.8-7.7); NEUTROPHILS % 65.2 % (36.0-66.0); RED BLOOD COUNT 3.27 10^6/uL (4.30-6.10); WHITE BLOOD COUNT 7.4 10^3/uL (4.0-10.0)
[2018-11-05 04:43] LABS: PLATELET COUNT, AUTOMATED 93 10^3/uL (150-450)
[2018-11-05 04:58] LABS: CREATININE FOR GFR 6.68 MG/DL (0.70-1.30); GLOMERULAR FILTRATION RATE 10.6 (>42); POTASSIUM SERUM 4.1 MEQ/L (3.5-5.1)
[2018-11-05] MEDS: HumaLOG INSULIN (NovoLOG) PER UNIT SC SCH ×4 (06:00→17:53)
[2018-11-05] MEDS: PROPOFOL 1,000 MG in APPROPRIATE DILUENT 1 EA IV SCH ×5 (06:07→21:05)
[2018-11-05 06:19] LABS: ABG BASE EXCESS 0.3 (-2.0-2.0); ABG HCO3 23.3 MEQ/L (22.0-26.0); ABG O2 SATURATION 97.5 % (95.0-99.0); ABG PARTIAL PRESSURE CO2 32.2 mmHg (35.0-45.0); ABG PARTIAL PRESSURE O2 107.3 mmHg (75.0-100.0); ABG STANDARD HCO3 24.8 MEQ/L (22.0-26.0); ABG TOTAL CO2 24.3 MEQ/L (23.0-31.0); ABG pH (ARTERIAL) 7.478 UNITS (7.350-7.450)
[2018-11-05] MEDS: METOPROLOL TART 25 MG TABLET PO SCH (07:27)
[2018-11-05] MEDS: (RENVELA) SEVELAMER **CARBONate** 800 MG TAB PO SCH (07:27)
[2018-11-05] MEDS: NEPHRO-VIT TAB (NEPHROCAPS) PO SCH (07:27)
--- NOTE | 2018-11-05 08:07 | REP ---
Portable chest, 07:32 a.m., single semi upright AP view: Comparison is 11/04/2018. There is marked cardiomegaly, unchanged. There is a single lead pacemaker, unchanged. The nasogastric tube appears retracted into the upper esophagus. The endotracheal tube tip terminates at the level of the aortic arch, above the leighton, in satisfactory position, unchanged. There is a right IJ dual lumen central venous catheter with the tip in the right atrium, unchanged. There is discoid atelectasis inferiorly in the right lung, unchanged. There is a new subsegmental infiltrate inferiorly in the left lung. Impression: The nasogastric tube appears to have retracted into the upper esophagus. There is a new subsegmental infiltrate inferiorly in the left lung. Discoid atelectasis is again identified inferiorly in the right lung. Marked cardiomegaly is unchanged. Electronically Signed by Sam Luis MD 11/05/2018 07:58 A
[2018-11-05] MEDS: ATORVASTATIN 20 MG TAB PO SCH (08:15)
[2018-11-05] MEDS: CYANOCOBALAMIN 500 MCG TAB PO SCH (08:15)
[2018-11-05] MEDS: GABAPENTIN 100 MG CAP PO SCH (08:15)
[2018-11-05] MEDS: PANTOPRAZOLE 40MG INJ (PROTONIX) (C9113) IV SCH (08:15)
[2018-11-05] MEDS: ASPIRIN 81 MG CHEW TABLET NG SCH (08:15)
[2018-11-05] MEDS: EUCERIN 120GM CREAM TOP SCH ×2 (08:15→21:10)
[2018-11-05] MEDS: VITAMIN D 1,000 INTERNATIONAL UNITS TABLET PO SCH (08:15)
[2018-11-05] MEDS: FLUTICASONE PROP 0.05% NASAL SPRAY 16 GM (FLONASE) SCH (08:15)
[2018-11-05] MEDS: DIAPER RELIEF PASTE (DESITIN) 60GM TOP SCH (08:16)
[2018-11-05] MEDS ORDERED: MIDAZOLAM INJ 2 MG/2 ML VIAL (J2250) As Ordered ONE ×2 (09:00→09:01)
[2018-11-05] MEDS ORDERED: MIDAZOLAM INJ 2 MG/2 ML VIAL (J2250) IV STA (09:19)
[2018-11-05] MEDS ORDERED: MIDAZOLAM INJ 2 MG/2 ML VIAL (J2250) IV PRN (09:30)
--- NOTE | 2018-11-05 10:04 | CCN ---
DATE: 11/05/2018 Mr. Lobo is seen in the intensive care unit (ICU). He is on the ventilator. He is not responsive to commands. A spontaneous breathing trial was failed by the patient who rapidly desaturated. Ultimately, his ventilator settings were changed from SIMV to volume control. He is afebrile. PHYSICAL EXAMINATION: Vitals: Temperature 98.7, pulse 88, blood pressure is 97/56, respiratory rate 25, oxygen saturation is 95%. Ventilator settings initially this morning were SIMV with tidal volume of 500, rate of 8, PEEP of 5, FIO2 of 21. Ventilator settings were ultimately changed to volume control with tidal volume of 440 and a PEEP of 7. Input and output: 398.2 / 2270, balance is 1871.8. GENERAL: The patient is unresponsive to commands. He did become agitated with the spontaneous breathing trial. He is moving his extremities. HEENT: Left pupil was constricted. Right eye is opacified. Moist mucous membranes. Head is normocephalic, atraumatic. Trachea is midline. Neck is supple with no cervical lymphadenopathy. Cardiac: Irregular. The patient has a systolic murmur. Pulmonary: The patient has diminished but clear breath sounds. No wheezes, rales, rhonchi or crackles. Abdomen is obese. Hypoactive bowel sounds, soft, nontender. Extremities: The patient has surgical absence of the distal left foot. There is a dressing on the distal left lower extremity. Right lower extremity with trace edema. Skin is warm and dry. Neurologic: Patient is somewhat agitated. He does not respond to commands. He is moving all extremities. There is no myoclonus. Chest x-ray done earlier this morning showed cardiomegaly and vascular congestion. The endotracheal tube is 6.27 cm above the leighton. LABORATORY DATA: WBC 7.4, hemoglobin 10.7, hematocrit 33.2, platelets 93. ABG: pH 7.478, pCO2 32.2, pCO2 was 107.3. Chemistry: Sodium is 140, potassium 4.1, chloride 105, carbon dioxide 26, BUN 37, creatinine 6.68, glucose 92, calcium 8.0, PT 25.3, INR 2.32. ASSESSMENT/PLAN: 1. Respiratory failure. The patient is intubated and on ventilator. He failed the spontaneous breathing trial this morning. His ventilator settings were changed from SIMV to volume control. He is not ready to come off the ventilator at this time. He remains critically ill. 2. Cardiomegaly / suspected congestive heart failure (CHF). We will order an echocardiogram. 3. Agitation or obstructive sleep apnea. The patient desaturated quickly when he underwent a trial of spontaneous breathing and became very agitated. He did receive five 3 mg of Versed. We will write for a small dose of as needed Versed to help with the agitation. Continue to monitor closely. 4. Hypotension. Continue to monitor blood pressures closely. 5. Hypoalbuminemia. The patient did receive 2 units of albumin with dialysis yesterday. He is continuing to be hemodialyzed. He is being followed by nephrology. We will start him on Nepro tube feedings. 6. Diabetes. The patient's blood sugars have remained good in spite of not being on any insulin or medications for diabetes. We will need to continue to monitor this closely. This patient remains critically ill. Total critical care time was 1 hour 21 minutes. I, Levy Curran, Conducted beside critical care for this gentleman with respiratory failure. On SBT trial 09/19 this am he had rapid shallow breathing and desaturation to 76%. He was not yet following commands but severely agitated to the point where he was endanger of unintentional extubation. On cxr this am the ETT was high so this was advanced by 3 cm. He will be dialyzed today and echo will be obtained to see if there are new areas of hypokinesis. Patient remains critically ill due to diastolic heart failure and respiratory failure in the face of renal failure. [facility]
--- NOTE | 2018-11-05 11:04 | REP ---
Portable chest x-ray: Single view. 09:31 a.m. film. History: ET tube adjustment. Comparison study is from 07:31 a.m. on this same date. Findings: Nasogastric tube enters left upper quadrant and appears to be in good position. An endotracheal tube is seen in good position at the level of the transverse aorta. The right internal jugular central venous line is seen with its tip in the expected location of the superior vena cava. A transvenous pacemaker is noted via the left side. Moderate to marked cardiomegaly is observed. Bilateral bibasilar plate-like atelectasis is seen. Vascular congestion persists unchanged. Electronically Signed by Wing Bowman MD 11/05/2018 10:55 A
[2018-11-05] MEDS: CHLORHEXIDINE GLUCONATE 0.12 % 15ML UDC (PERIDEX ORAL RINSE) MT SCH ×2 (11:16→21:09)
--- NOTE | 2018-11-05 11:44 | IPNPDOC ---
Date Seen The patient was seen on 11/05/18. Progress Note SUBJECTIVE: Mr. Lobo is seen on rounds this morning, he is in the ICU. He is mechanically ventilated and sedated. He was responsive to verbal and noxious stimuli, sternal rub. Apparently after the creation of his right brachiocephalic fistula on 11/03, he was too confused to be safely extubated post-op. As such he was transferred to the ICU for further management, critical care/pulm was also c onsulted at that time. A spontaneous breathing trial was failed by the patient this morning who rapidly desaturated. His ventilator settings were changed from SIMV to volume control. Critical care management appreciated. ROS is obviously unachievable as he is not responding to verbal nor sternal st imulation. OBJECTIVE PHYSICAL EXAMINATION: VITAL SIGNS: Please see below. General: AAOx3, obese 73 yo male, mechanically ventilated, sedated in the ICU HEENT: Neck is supple, JVD seems minimally elevated, moist mucus membranes, right perm cath site is clean, no erythema or swelling, dressing is clean, dry and intact Cardiac: Systolic murmur +2, normal s1 and s2, no other murmurs appreciated Lung: no rales, wheezing or rhonchi appreciated but hard to discern over mechanical vent sounds Abdomen: obese, soft, non-distended, no pain to palpation, no hepatosplenomegaly or masses appreciated but hard to discern from body habitus , [id number] Extremities: right lower extremity shows trace edema, no cyanosis or mottling appreciated, left LE with transmetarsal amputation and chronic wound of dorsal aspect of calcaneus, it is currently wrapped, did not undress it today, right dressing over ligated mid arm AV fistula is dry and intact, right wrist incision covering is also dry and intact, new right brachiocephalic fistula has good thrill, also dressing appears dry and intact, some swelling to right UE LABORATORY DATA, IMAGING STUDIES, MICROBIOLOGY: Please see below. IMAGING: -CXR 11/05: Nasogastric tube enters left upper quadrant and appears to be in good position. An endotracheal tube is seen in good position at the level of the transverse aorta. The right internal jugular central venous line is seen with its tip in the expected location of the superior vena cava. A transvenous pac emaker is noted via the left side. Moderate to marked cardiomegaly is observed. Bilateral bibasilar plate-like atelectasis is seen. Vascular congestion persists unchanged. DVT prophylaxis ordered?: Coumadin ASSESSMENT AND PLAN: This is a 73-year-old male who was admitted for visit of Avf, Dialysis Avf Malfunction with ESRD on dialysis. He currently is mechanically ventilated and sedated. PROBLEMS: 1. Dysfunctional right UE AV fistula -post op day 2 of new r brachiocephalic fistula creation and right Pantera fistula ligation, no further intervention is being planned by vascular surgery at this time-he is being dialyzed via his perm cath 2. Post-op confusion - remained intubated; requiring mechanical ventilation for airway protection -Dr Curran now managing, appreciate her help -He failed spontaneous breathing trial this morning -His ventilator settings were changed from SIMV to volume control - He is not ready to come off the ventilator at this time. - Became very agitated when he underwent trail of spontaneous breathing, received five, 3 mg of Versed. -Nephrology consulted, appreciate their help, holding anti-hypertensive medications, pt is being administered albumin - Will get an ECHO today for suspected CHF 3. IDDM2 - Holding long acting Insulin for now, he is ACHS with sliding scale 4. A fib on AC -INR 2.32 yesterday -we can resume his Coumadin dose once extubated and tolerating PO -Rate controlled, c/w home Lopressor 4. HTN - hypotensive, holding anti-hypertensive's 5. Hypoalbuminemia - Patient received 2 units of albumin with dialysis yesterday. - Followed by nephrology - Start him on Nepro tube feedings. 6. Neuropathic pain -c/w home gabapentin once tolerating PO 7. Chronic Left LE wound - Wrapped on examination today, did not undress, dressing is clean and intact again -c/w wound care nursing consult, begin Desitin and Eucerin -he is followed by Dr. Weinberg outpt 8. DLP -c/w home atorvastatin once tolerating PO 9. DVT px -pt is on Coumadin 10. ELISSA on cpap -mechanically ventilated currently -he should continue to use his home settings on his cpap while hospitalized DISPOSITION: Guarded. Patient remains mechanically ventilated and sedated after a spontaneous breathing trial this morning in which he desaturated, was not able to be extubated. His ventilator settings were changed from SIMV to volume control. He became very agitated after the spontaneous breathing trial and was given five 3 mg of Versed. Planning on getting an ECHO today due to suspected CHF. Nephrology is following due to hypoalbuminemia,appreciate their help. Condition is certainly guarded. VS, I&O, 24H, Fishbone Vital Signs/I&O Vital Signs Date Time Temp Pulse Resp B/P (MAP) Pulse Ox O2 Delivery O2 Flow Rate FiO2 11/05/18 10:30 93 27 100/57 (71) 96 30 11/05/18 07:01 97.5 11/04/18 18:20 Ventilator 11/03/18 11:43 2 I&O- Last 24 Hours up to 6 AM 11/05/18 06:00 Intake Total 383.2 ml Output Total 2270 ml Balance -1886.8 ml Laboratory Data 24H LABS Laboratory Tests 2 11/04/18 12:10: Bedside Glucose (Misc Panel) 80L 11/04/18 13:40: Blood Gas Bicarbonate Standard 25.1, Arterial Blood pH 7.446, Arterial Blood Partial Pressure CO2 36.5, Arterial Blood Partial Pressure O2 73.8L, Arterial Blood Total CO2 25.7, Arterial Blood HCO3 24.6, Arterial Blood Base Excess 0.8, Arterial Blood Oxygen Saturation 93.1L 11/04/18 17:46: Bedside Glucose (Misc Panel) 80L 11/05/18 00:38: Bedside Glucose (Misc Panel) 92 11/05/18 04:31: Immature Granulocyte % (Auto) 0.5, White Blood Count 7.4, Red Blood Count 3.27L, Hemoglobin 10.7L, Hematocrit 33.2L, Mean Corpuscular Volume 101.5H, Mean Corpuscular Hemoglobin 32.7, Mean Corpuscular Hemoglobin Concent 32.2, Red Cell Distribution Width 17.0H, Platelet Count 93L, Neutrophils (%) (Auto) 65.2, Lymphocytes (%) (Auto) 15.2L, Monocytes (%) (Auto) 16.4H, Eosinophils (%) (Auto) 2.3, Basophils (%) (Auto) 0.4, Neutrophils # (Auto) 4.9, Lymphocytes # (Auto) 1.1L, Monocytes # (Auto) 1.2H, Eosinophils # (Auto) 0.2, Basophils # (Auto) 0.0, Nucleated Red Blood Cells % (auto) 0.4H, Immature Platelet Fraction 5.9, Anion Gap 9, Glomerular Filtration Rate 10.6L, Blood Urea Nitrogen 37H, Creatinine 6.68H, Sodium Level 140, Potassium Level 4.1, Chloride Level 105, Carbon Dioxide Level 26, Calcium Level 8.0L 11/05/18 05:55: Bedside Glucose (Misc Panel) 88 11/05/18 06:00: Blood Gas Bicarbonate Standard 24.8, Arterial Blood pH 7.478H, Arterial Blood Partial Pressure CO2 32.2L, Arterial Blood Partial Pressure O2 107.3H, Arterial Blood Total CO2 24.3, Arterial Blood HCO3 23.3, Arterial Blood Base Excess 0.3, Arterial Blood Oxygen Saturation 97.5 CBC/BMP Laboratory Tests 11/05/18 04:31 Red Blood Count 3.27 L, Mean Corpuscular Volume 101.5 H, Mean Corpuscular Hemoglobin 32.7, Mean Corpuscular Hemoglobin Concent 32.2, Red Cell Distribution Width 17.0 H, Neutrophils (%) (Auto) 65.2, Lymphocytes (%) (Auto) 15.2 L, Monocytes (%) (Auto) 16.4 H, Eosinophils (%) (Auto) 2.3, Basophils (%) (Auto) 0.4, Neutrophils # (Auto) 4.9, Lymphocytes # (Auto) 1.1 L, Monocytes # (Auto) 1.2 H, Eosinophils # (Auto) 0.2, Basophils # (Auto) 0.0, Calcium Level 8.0 L GME ATTESTATION GME ATTESTATION My faculty preceptor for this patient encounter was physically present during the encounter and was fully available. All aspects of the patient interview, examination, medical decision making process, and medical care plan development were reviewed and approved by the faculty preceptor. The faculty preceptor is aware and concurs with the plan as stated in the body of this note and will attest to such by his/her cosignature. ATTENDING NOTE I, Lona Gutierrez, have independently examined this patient and performed my own physical exam, as well as reviewed the documentation and edited where necessary. I have discussed in detail with the resident / student the findings and plan of treatment as documented by the resident / student and edited their note. I agree with their findings and treatment plan and have edited their documentation. I w ill continue to follow the patient during this hospital stay. HAYDE,SORIN [email or web address]-[id number] Nov 05, 2018 11:44 LYNNE TINOCO DO Nov 05, 2018 11:56 LONA GUTIERREZ MD Nov 05, 2018 12:51
--- NOTE | 2018-11-05 16:22 | IPNPDOC ---
Date Seen The patient was seen on 11/05/18. Progress Note Mr Yamil was seen and examined, now postoperative day 2 status post right upper extremity ligation of Pantera fistula, and creation of new brachiocephalic AV fistula with debridement of right forearm ulcer. He was not able to be extremely this morning, and is receiving dialysis right now, and were helpful after more ultrafiltration that he may tolerate his breathing trials better tomorrow. From a right upper extremity standpoint, there is a good thrill and brachiocephalic AV fistula. The incision is clean dry and intact. The Tegaderm and dry gauze was removed and Steri-Strips were cleaned and left open to air. The incision at the wrist over the fistula ligation is clean dry and intact. The Tegaderm was removed and Steri-Strips are clean and left open to air. The ulcer was examined. Already starting to granulate which we are very pleased about. There is still some fibrinous exudate, but overall it is looking much better. This was also thoroughly cleaned and dressed with Xeroform dry gauze and a Tegaderm. The arm is elevated on a pillow appropriately and will continue to need elevation to help with swelling post ligation of fistula. We will continue to follow while the patient is inpatient, but outpatient wound care should consist of daily dressing changes to the right upper extremity ulcer (Xeroform, dry gauze, Tegaderm) and a goal to leave the Steri-Strips intact for 5-7 days to help with wound healing. Patient's daughter at bedside and she was thoroughly counseled and all questions were answered. VS, I&O, 24H, Fishbone Vital Signs/I&O Vital Signs Date Time Temp Pulse Resp B/P (MAP) Pulse Ox O2 Delivery O2 Flow Rate FiO2 11/05/18 14:45 90 88/53 (65) 100 30 11/05/18 14:00 22 11/05/18 12:00 97.6 11/04/18 18:20 Ventilator 11/03/18 11:43 2 I&O- Last 24 Hours up to 6 AM 11/05/18 05:59 Intake Total 349.4 ml Output Total 2270 ml Balance -1920.6 ml Laboratory Data 24H LABS Laboratory Tests 2 11/04/18 17:46: Bedside Glucose (Misc Panel) 80L 11/05/18 00:38: Bedside Glucose (Misc Panel) 92 11/05/18 04:31: Immature Granulocyte % (Auto) 0.5, White Blood Count 7.4, Red Blood Count 3.27L, Hemoglobin 10.7L, Hematocrit 33.2L, Mean Corpuscular Volume 101.5H, Mean Corpuscular Hemoglobin 32.7, Mean Corpuscular Hemoglobin Concent 32.2, Red Cell Distribution Width 17.0H, Platelet Count 93L, Neutrophils (%) (Auto) 65.2, Lymphocytes (%) (Auto) 15.2L, Monocytes (%) (Auto) 16.4H, Eosinophils (%) (Auto) 2.3, Basophils (%) (Auto) 0.4, Neutrophils # (Auto) 4.9, Lymphocytes # (Auto) 1.1L, Monocytes # (Auto) 1.2H, Eosinophils # (Auto) 0.2, Basophils # (Auto) 0.0, Nucleated Red Blood Cells % (auto) 0.4H, Immature Platelet Fraction 5.9, Anion Gap 9, Glomerular Filtration Rate 10.6L, Blood Urea Nitrogen 37H, Creatinine 6.68H, Sodium Level 140, Potassium Level 4.1, Chloride Level 105, Carbon Dioxide Level 26, Calcium Level 8.0L 11/05/18 05:55: Bedside Glucose (Misc Panel) 88 11/05/18 06:00: Blood Gas Bicarbonate Standard 24.8, Arterial Blood pH 7.478H, Arterial Blood Partial Pressure CO2 32.2L, Arterial Blood Partial Pressure O2 107.3H, Arterial Blood Total CO2 24.3, Arterial Blood HCO3 23.3, Arterial Blood Base Excess 0.3, Arterial Blood Oxygen Saturation 97.5 11/05/18 11:50: Bedside Glucose (Misc Panel) 77L CBC/BMP Laboratory Tests 11/05/18 04:31 Red Blood Count 3.27 L, Mean Corpuscular Volume 101.5 H, Mean Corpuscular Hemoglobin 32.7, Mean Corpuscular Hemoglobin Concent 32.2, Red Cell Distribution Width 17.0 H, Neutrophils (%) (Auto) 65.2, Lymphocytes (%) (Auto) 15.2 L, Monocytes (%) (Auto) 16.4 H, Eosinophils (%) (Auto) 2.3, Basophils (%) (Auto) 0.4, Neutrophils # (Auto) 4.9, Lymphocytes # (Auto) 1.1 L, Monocytes # (Auto) 1.2 H, Eosinophils # (Auto) 0.2, Basophils # (Auto) 0.0, Calcium Level 8.0 L NOAH KAM MD Nov 05, 2018 16:22
[2018-11-05] MEDS: CALCIUM ACETATE 667 MG/5 ML PO SCH (17:53)
[2018-11-05] MEDS: WARFARIN SOD 5 MG TAB PO SCH (17:53)
--- NOTE | 2018-11-05 19:41 | IPN ---
DATE: 11/05/2018 SUBJECTIVE: Patient was seen and examined at the bedside today morning in the intensive care unit (ICU). He remains intubated. He was dialyzed yesterday because of hypotension. He required albumin during dialysis; 2.2 liters of fluid was removed. However, despite dialysis, patient failed the spontaneous breathing trial and he could not be extubated. His blood pressure still remains in low 90s systolic. He is still sedated at this point. Patient is otherwise afebrile. He is unable to provide any review of systems because he is intubated and sedated. OBJECTIVE: VITAL SIGNS: Temperature is 97.5 degrees Fahrenheit today morning. Blood pressure is 100/57, pulse is 93, respiratory rate of 27, saturating 96% on 30% FiO2. INTAKE AND OUTPUT: There is no urine output recorded. Ultrafiltration with hemodialysis was 2.2 liters yesterday. Weight in the bed scale is 139.01 kg. PHYSICAL EXAMINATION: GENERAL: Patient is intubated, sedated, laying in bed. HEAD AND NECK EXAM: Patient has right corneal fibrosis. Left eye pupil is reactive to light. He has an endotracheal tube and orogastric tube. Neck is supple. He has a right internal jugular (IJ) tunneled hemodialysis catheter. CARDIOVASCULAR: S1, S2. Regular rate. He has 2+ edema in the thighs and trace edema on the legs. RESPIRATORY: Mildly decreased breath sounds at the bases bilaterally. Otherwise no active rales or rhonchi. ABDOMEN: Obese, positive bowel sounds. There is 2+ edema of the abdominal pacheco as well. MUSCULOSKELETAL: He has a dressing on the left leg left leg. 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 Moves extremities on painful stimuli. LABORATORY REVIEW: Complete blood count (CBC) showed a WBC 7.4, hemoglobin 10.7, platelets of 93. Arterial blood gas (ABG) done today morning showed pH 7.47, pCO2 32, pO2 107, bicarbonate is 23, oxygen saturation is 97.5%. Basic metabolic panel (BMP) done today showed sodium 141, potassium 4.1, chloride 105, bicarbonate 26, BUN 37, creatinine is 6.6, glucose 92, calcium is 8. IMAGING: A chest x-ray was done today morning. There was moderate to marked cardiomegaly, bibasilar atelectasis was noted and there was vascular congestion. CURRENT INPATIENT MEDICATIONS: Patient's medications were all reviewed by me. There is no change in the medications today as compared with yesterday. He was given a dose of Versed today for sedation. I have ordered 25% 25 grams albumin IV to be given with dialysis today. ASSESSMENT AND PLAN 1. End-stage renal disease on hemodialysis. Patient's regular dialysis days are Thursday, Thursday, Thursday. He was being dialyzed to Thursday, , Thursday schedule. Given his vascular congestion and inability to get extubated, I would put him back on his Thursday, Thursday, Thursday schedule and do another session of ultrafiltration today. I will try to remove at least 2.5 kg of fluid. If he becomes hypotensive, he will get albumin 25% 12.5 grams two doses during dialysis. 2. Ventilator-dependent respiratory failure. Patient failed the spontaneous breathing trial today morning. His FiO2 requirement is 30%. As mentioned above, I will remove more fluid so we can hopefully extubate this patient over the next 24-48 hours. 3. Postoperative day #2 status post right brachial cephalic fistula creation. Patient has a good thrill and bruit in the right upper arm. Right IJ tunneled catheter is being used for dialysis. 4. Anemia in end-stage renal disease. Hemoglobin is 10.7, which is within the acceptable range. Patient gets Aranesp 200 mcg IV with hemodialysis once a week. 5. Chronic atrial fibrillation. Heart rate is controlled. INR is therapeutic. He continues to be on metoprolol. 6. Decompensated diastolic congestive heart failure. Patient has fluid in the thighs and in the abdominal wall. Latest echocardiogram is not available. Fluid was removed yesterday. I will try to remove more fluid today. Repeat echocardiogram has been ordered by pulmonary service to look at his latest ejection fraction. Total critical care time spent in the management of this patient today morning in the ICU was 45 minutes. This does not include any procedures.
[2018-11-05] MEDS: METOPROLOL TART 25 MG TABLET NG SCH (21:00)
[2018-11-06] VITALS (13 sets, daily range): BP systolic 82–106; BP diastolic 51–59
[2018-11-06] MEDS: HumaLOG INSULIN (NovoLOG) PER UNIT SC SCH ×5 (00:32→20:25)
[2018-11-06] MEDS: PROPOFOL 1,000 MG in APPROPRIATE DILUENT 1 EA IV SCH ×2 (01:28→06:13)
[2018-11-06] MEDS ORDERED: ONDANSETRON 4MG/2ML VIAL (J2405) IV SCH (02:00)
[2018-11-06] MEDS ORDERED: ONDANSETRON 4MG/2ML VIAL (J2405) IV PRN (02:15)
[2018-11-06 04:33] LABS: BASO % 0.3 % (0.0-1.0); EOS # 0.2 10^3/uL (0.0-0.50); EOS % 2.4 % (0.0-3.0); HEMOGLOBIN 10.8 g/dl (13.5-17.5); LYMPH # 0.9 10^3/uL (1.5-4.5); LYMPH % 10.8 % (24.0-44.0); MEAN CORPUSCULAR HEMOGLOBIN 31.9 pg (27.0-33.0); MEAN CORPUSCULAR HGB CONC 32.7 g/dl (32.0-36.5); MEAN CORPUSCULAR VOLUME 97.3 fl (80.0-96.0); MONO # 1.3 10^3/uL (0.0-0.8); MONO % 16.8 % (0.0-5.0); NEUTROPHILS # 5.4 10^3/uL (1.8-7.7); NEUTROPHILS % 69.1 % (36.0-66.0); PLATELET COUNT, AUTOMATED 103 10^3/uL (150-450); RED BLOOD COUNT 3.39 10^6/uL (4.30-6.10); WHITE BLOOD COUNT 7.9 10^3/uL (4.0-10.0)
[2018-11-06 05:16] LABS: ALBUMIN 2.9 GM/DL (3.2-5.2); BILIRUBIN,TOTAL 1.2 MG/DL (0.2-1.0); CALCIUM LEVEL 7.5 MG/DL (8.8-10.2); CREATININE FOR GFR 8.48 MG/DL (0.70-1.30); GLOMERULAR FILTRATION RATE 8.1 (>42); POTASSIUM SERUM 3.9 MEQ/L (3.5-5.1); TOTAL PROTEIN 6.6 GM/DL (6.4-8.2)
[2018-11-06 05:30] LABS: INR 2.66; PROTHROMBIN TIME 28.2 SECONDS (11.8-14.0)
[2018-11-06 05:31] LABS: PARTIAL THROMBOPLASTIN TIME 48.8 SECONDS (25.0-38.4)
[2018-11-06] MEDS: ALBUTEROL SULFATE 2.5 MG/0.5 ML INH NEB SOLN NEB PRN (07:12)
--- NOTE | 2018-11-06 08:02 | REP ---
Portable chest, 06:56 a.m., single AP view with the patient sitting: Comparison is 11/05/2018. There is an endotracheal tube with the tip at the level of the aortic arch, above the leighton in satisfactory position. There is a nasogastric tube with the term pain terminating satisfactorily in the abdominal left upper quadrant. There is a right IJ central venous catheter, dual lumen, with the tip in the right atrium in satisfactory position, unchanged. There is a single lead pacemaker, unchanged. There is cardiomegaly, unchanged. The discoid atelectasis inferiorly in the right lung is unchanged. The Focal infiltrate inferiorly in the left lung is unchanged. Impression: No interval change. Electronically Signed by Sam Luis MD 11/06/2018 07:54 A
[2018-11-06] MEDS: FLUTICASONE PROP 0.05% NASAL SPRAY 16 GM (FLONASE) SCH (09:00)
[2018-11-06] MEDS: METOPROLOL TART 25 MG TABLET NG SCH ×2 (09:00→20:11)
[2018-11-06] MEDS: CHLORHEXIDINE GLUCONATE 0.12 % 15ML UDC (PERIDEX ORAL RINSE) MT SCH ×2 (09:24→20:10)
[2018-11-06] MEDS: VITAMIN D 1,000 INTERNATIONAL UNITS TABLET PO SCH (09:25)
[2018-11-06] MEDS: CALCIUM ACETATE 667 MG/5 ML PO SCH ×3 (09:25→20:00)
[2018-11-06] MEDS: ATORVASTATIN 20 MG TAB NG SCH (09:25)
[2018-11-06] MEDS: CYANOCOBALAMIN 500 MCG TAB NG SCH (09:25)
[2018-11-06] MEDS: ASPIRIN 81 MG CHEW TABLET NG SCH (09:25)
[2018-11-06] MEDS: PANTOPRAZOLE 40MG INJ (PROTONIX) (C9113) IV SCH (09:25)
--- NOTE | 2018-11-06 09:25 | CCN ---
DATE OF SERVICE: 11/06/2018 Mr. Lobo remains on mechanical ventilation on pressure support 02/21, the patient is pulling tidal volumes of almost 400. He is less tachypneic. Blood pressures are soft this morning, but he is on propofol for sedation. On sedation vacation he is moving all extremities, not yet awake and purposeful. Yesterday had another dialysis. Plan this morning for a trial of extubation to BiPAP. He had high residuals therefore his NG tube is on suction. He has had no fever, chills overnight and no tremor. Temperature is 97.8, pulse is 88, respiratory rate is 21, blood pressure is 88/55 with a mean arterial pressure of 66 with oxygen saturation of 100% on 0.21 FiO2. Intake and output net negative 1252. GENERAL: Still slightly sedated on mechanical ventilation, not following commands, but moves all extremities. HEENT: Right eye is opacified. Left eye has a pinpoint pupils. Mucous membranes are moist. Tongue is large, Mallampati 4 airway. Endotracheal tube is in place. NECK: Supple. No tracheal deviation or mass. LYMPH: No cervical, supraclavicular, or axillary adenopathy. CARDIAC: Irregularly irregular with variable systolic murmur and diastolic murmur. PMI is displaced laterally. There is no systemic edema. There is elevated JVP. PULMONARY: Decreased chest expansion, but overall clear without rales, rhonchi or wheezes. There is no prolongation of the expiratory phase. There is no dullness to percussion. ABDOMEN: Is obese with a reducible umbilical hernia. Hepatosplenomegaly is not discernible. I do not auscultate any bruits over the large vessels of the abdomen. EXTREMITIES: He has a left lower extremity wound that has serosanguineous drainage. According to his , it is draining less and appears better than usual. He has a left partial foot amputation. Right lower extremity without any significant edema. NEURO: No unilateral weakness. No tremor. Not yet following commands but moves all extremities. Pupillary reflex as mentioned above. Musculoskeletal: Well-developed muscle tone. No evidence of fracture or joint effusion. No recent evidence of recent trauma. LABORATORY EVALUATION: Shows a white blood cell count of 7.9, hemoglobin 10.8, platelets of 103, sodium 141, potassium 3.9, chloride 104, bicarb 26, BUN of 45 and creatinine of 8.78. Chest x-ray shows cardiomegaly and blunting of the left costophrenic angle. Overall decreased air entry, but improved from yesterday. There appears to be less vascular congestion. IMPRESSION: 1. Respiratory failure, hypoxic in nature, secondary likely to volume status. Echocardiogram was performed yesterday and results are pending. Per verbal report there is no significant pericardial effusion. The patient was converted to 10/7 pressure support this morning, is tolerating this well so far. Will attempt extubation when he has cleared sedation. Due to his high risk of requiring reintubation, we will place him on BiPAP immediately after extubation. 2. End-stage renal disease. Dialyzed for the past 2 days, likely had some extra volume on board. Appreciate nephrology's care. 3. Cardiomegaly. Again, waiting for echo results. Has a history of atrial fibrillation on anticoagulation. Heart rate is adequate. 4. Diabetes. No evidence of hyperglycemia, has not been tolerating diet, may require Reglan. 5. Hypertension. Currently, the patient is actually on the hypotensive side, but that may be drug induced from propofol. Will continue to monitor for the need to add back antihypertensive therapy. 6. Anemia of chronic disease. No indication for blood transfusion at this point in time. He has had no decrease in his usual level of hemoglobin. 7. Obstructive sleep apnea with crowded airway, hence going directly to BiPAP after extubation. 8. Chronic left lower extremity wound. No evidence of active infection. The patient remains critically ill due to the difficulty of his respiratory failure. He is at high risk for reintubation.
[2018-11-06] MEDS: GABAPENTIN 100 MG CAP NG SCH (09:26)
[2018-11-06] MEDS: DIAPER RELIEF PASTE (DESITIN) 60GM TOP SCH (09:26)
[2018-11-06] MEDS: EUCERIN 120GM CREAM TOP SCH ×2 (09:26→20:11)
[2018-11-06] MEDS ORDERED: HEPARIN 1,000 UNITS/ML 10ML VIAL (FOR RADIOLOGY& DIALYSIS ONLY) XX ONE (10:45)
[2018-11-06] MEDS ORDERED: HEPARIN 1,000 UNITS/ML 10ML VIAL (FOR RADIOLOGY& DIALYSIS ONLY) IV ONE (11:00)
--- NOTE | 2018-11-06 11:17 | ECHO ---
DATE OF PROCEDURE: 11/05/2018 REFERRING INDIVIDUAL: Checo Wallace, Physician Wing Scorer INDICATION: Cardiomegaly. HEIGHT: 188 cm WEIGHT: 139.1 kg 2D MEASUREMENTS: Left ventricle diastole: 4.9 cm Ventricular septum: 1.18 cm Left ventricle posterior wall: 1.24 cm Aortic annulus: 2.1 cm Aortic root: 4.1 cm at the sinus of Valsalva Left atrium: 4.1 cm Inferior vena cava: 3.3 cm DOPPLER MEASUREMENTS: Mild aortic regurgitation. Mild aortic stenosis. Peak aortic valve velocity: 262 cm/s Peak aortic valve gradient: 27 mmHg Mean aortic valve gradient: 16 mmHg Aortic valve VTI: 53.8 cm LVOT velocity: 62.6 cm/s Mild mitral regurgitation. No mitral stenosis. Severe tricuspid regurgitation. Estimated right ventricle systolic pressure: At least 53 mmHg assuming a right atrial pressure of at least 20 mmHg. Pulmonary artery systolic pressure: 41 mmHg. DESCRIPTION: Rhythm was atrial fibrillation with controlled ventricular response. This was a moderately technically difficult echocardiogram. CONCLUSIONS: 1. Borderline concentric left ventricle hypertrophy. Normal regional left ventricular (LV) wall motion and wall thickening. Normal LV systolic function. Left ventricular ejection fraction (LVEF) 60% by visual estimate. 2. Severe focal thickening and focal calcific deposits of a 3-cusp aortic valve. Mild reduction in aortic cusp mobility. Mild aortic stenosis. Mild aortic regurgitation. 3. Mild dilatation of the aortic root at the level of the sinus of Valsalva. 4. Moderate left atrial dilatation by visual assessment. 5. Suggestive of moderate elevation of pulmonary artery systolic pressure and estimated right ventricle systolic pressure. Appearance of mildly dilated right ventricle with normal right ventricular (RV) systolic function. Severe right atrial dilatation. Structurally normal appearing tricuspid leaflets. Severe tricuspid regurgitation. 6. Inferior vena cava plethora. Suggestive of elevated central venous pressure of at least 20 mmHg. 7. Severe mitral annular calcification. Mild mitral regurgitation. No mitral stenosis. 8. Presence of a right ventricle pacing lead coursing towards the right ventricle apex position.
[2018-11-06 12:15] LABS: ABG HCO3 22.9 MEQ/L (22.0-26.0); ABG O2 SATURATION 91.6 % (95.0-99.0); ABG PARTIAL PRESSURE CO2 35.4 mmHg (35.0-45.0); ABG PARTIAL PRESSURE O2 68.1 mmHg (75.0-100.0); ABG STANDARD HCO3 23.5 MEQ/L (22.0-26.0); ABG pH (ARTERIAL) 7.428 UNITS (7.350-7.450)
--- NOTE | 2018-11-06 12:18 | IPNPDOC ---
Text Note Date of Service The patient was seen on 11/06/18. NOTE SUBJECTIVE: Mr. Lobo is seen on rounds this morning, he is in the ICU. He is mechanically ventilated and has been off of sedation for about an hour. He is minimally responsive to verbal que and sternal rub, attempts to open his eyes. He failed breathing trial yesterday, and unfortunately was not able to be extubated. He cannot participate in ROS. ROS unachievable as he is minimally responding to verbal nor sternal stimulation, he cannot answer questions OBJECTIVE PHYSICAL EXAMINATION: VITAL SIGNS: Please see below. General: AAOx3, obese 73 yo male, mechanically ventilated, has been off of sedation for about an hour, attempts to open his eyes to sternal rub/verbal que HEENT: Neck is supple, JVD seems minimally elevated, moist mucus membranes, right perm cath site is clean, no erythema or swelling, dressing is clean, dry and intact Cardiac: Systolic murmur +2, normal s1 and s2, no other murmurs appreciated Lung: no rales, wheezing or rhonchi appreciated but hard to discern over mechanical vent sounds Abdomen: obese, soft, non-distended, no pain to palpation, no hepatosplenomegaly or masses appreciated but hard to discern from body habitus , [id number] Extremities: right lower extremity shows trace edema, no cyanosis or mottling appreciated, left LE with transmetarsal amputation and chronic wound of dorsal aspect of calcaneus, it is currently wrapped, did not undress it today, right dressing over ligated mid arm AV fistula is dry and intact, right wrist incision covering is also dry and intact, new right brachiocephalic fistula has good thrill, also dressing appears dry and intact LABORATORY DATA, IMAGING STUDIES, MICROBIOLOGY: Please see below. IMAGING: -CXR 11/05: Nasogastric tube enters left upper quadrant and appears to be in good position. An endotracheal tube is seen in good position at the level of the transverse aorta. The right internal jugular central venous line is seen with its tip in the expected location of the superior vena cava. A transvenous pacemaker is noted via the left side. Moderate to marked cardiomegaly is observed. Bilateral bibasilar plate-like atelectasis is seen. Vascular congestion persists unchanged. DVT prophylaxis ordered?: Coumadin ASSESSMENT AND PLAN: This is a 73-year-old male who was admitted for visit of Avf, Dialysis Avf Malfunction with ESRD on dialysis. He currently is mechanically ventilated and sedated. PROBLEMS: 1. Dysfunctional right UE AV fistula -post op day 2 of new r brachiocephalic fistula creation and right Pantera fistula ligation, no further intervention is being planned by vascular surgery at this time-he is being dialyzed via his perm cath 2. Hypoxic Respiratory failure s/p failed breathing trial, remains intubated and on MV -Dr Curran now managing, appreciate her help -He failed spontaneous breathing trial yesterday, his sedation has been d/c, he was transitioned to pressure support, plan is to hopefully extubate today and transition to BIPAP -Nephrology consulted, appreciate their help - ECHO was without pericardial effusion and showed EF of 60 %, severe TR, e levated CVP, Mild dilatation of the aortic root at the level of the sinus of Valsalva. 4. A fib on AC -INR 2.66 today -c/w Coumadin 5 mg nightly -Rate controlled, c/w home Lopressor 4. HTN - hypotensive, holding anti-hypertensive's-during HD, fluid removal via UF, he was given albumin to aid in hypotensive status 5. Hypoalbuminemia - Patient received 2 units of albumin with dialysis 11.04.18 - Followed by nephrology 6. Neuropathic pain -c/w NG gabapentin 7. Chronic Left LE wound - Wrapped on examination today, did not undress, dressing is clean and intact again -c/w wound care nursing consult, begin Desitin and Eucerin -he is followed by Dr. Weinberg outpt 8. DLP -c/w home atorvastatin DM2 - Holding long acting Insulin for now, he is ACHS with sliding scale 9. DVT px -pt is on Coumadin 10. ELISSA on cpap -mechanically ventilated currently -he should continue to use his home settings on his cpap while hospitalized once extubated DISPOSITION: Guarded. Patient remains mechanically ventilated and sedated after a failed spontaneous breathing trial yesterday. Sedation has been turned off. He was switched to pressure support as well, hopefully he can be extubated to noninvasive today. ECHO results as mentioned above. Nephrology is following and helping to manage fluid status. VS,Fishbone, I+O VS, Fishbone, I+O Laboratory Tests 11/06/18 04:20 Red Blood Count 3.39 L, Mean Corpuscular Volume 97.3 H, Mean Corpuscular Hemoglobin 31.9, Mean Corpuscular Hemoglobin Concent 32.7, Red Cell Distribution Width 16.9 H, Neutrophils (%) (Auto) 69.1 H, Lymphocytes (%) (Auto) 10.8 L, Monocytes (%) (Auto) 16.8 H, Eosinophils (%) (Auto) 2.4, Basophils (%) (Auto) 0.3, Neutrophils # (Auto) 5.4, Lymphocytes # (Auto) 0.9 L, Monocytes # (Auto) 1.3 H, Eosinophils # (Auto) 0.2, Basophils # (Auto) 0.0, Calcium Level 7.5 L, Aspartate Amino Transf (AST/SGOT) 5 L, Alanine Aminotransferase (ALT/SGPT) 9 L, Alkaline Phosphatase 187 H, Total Bilirubin 1.2 H, Total Protein 6.6, Albumin 2.9 L Vital Signs Date Time Temp Pulse Resp B/P (MAP) Pulse Ox O2 Delivery O2 Flow Rate FiO2 11/06/18 09:00 93/53 11/06/18 08:00 21 11/06/18 08:00 98.7 109 21 100 11/04/18 18:20 Ventilator 11/03/18 11:43 2 I&O- Last 24 Hours up to 6 AM 11/06/18 06:00 Intake Total 1062 ml Output Total 2400 ml Balance -1338 ml GME ATTESTATION GME ATTESTATION My faculty preceptor for this patient encounter was physically present during t he encounter and was fully available. All aspects of the patient interview, examination, medical decision making process, and medical care plan development were reviewed and approved by the faculty preceptor. The faculty preceptor is aware and concurs with the plan as stated in the body of this note and will attest to such by his/her cosignature. ATTENDING NOTE I, Lona Gutierrez, have independently examined this patient and performed my own physical exam, as well as reviewed the documentation and edited where necessary. I have discussed in detail with the resident / student the findings and plan of treatment as documented by the resident / student and edited their note. I agree with their findings and treatment plan and have edited their documentation. I will continue to follow the patient during this hospital stay. LYNNE TINOCO DO Nov 06, 2018 12:18 LONA GUTIERREZ MD Nov 06, 2018 13:08
--- NOTE | 2018-11-06 13:29 | IPN ---
DATE OF SERVICE: 11/06/2018 SUBJECTIVE: Patient was seen and examined at the bedside today morning in the ICU. He continues to be intubated, weaning trial is being done. He was on BiPAP when I saw him. His sedation is off, but he is still quite sleepy. He got ultrafiltration done, 2.2 liters of fluid was removed, and he was given albumin. Blood pressures are still low with systolic in the 90s. OBJECTIVE: VITAL SIGNS: Temperature is 98.7 degrees Fahrenheit, blood pressure is 93/53, pulse is 109, respiratory rate 21, saturating 100% on 21% FiO2. INTAKE AND OUTPUT: Ultrafiltration with hemodialysis yesterday was 2.2 liters. Weight on the bed scale is not available. PHYSICAL EXAMINATION: General: The patient is drowsy, not sedated, still intubated, currently on BiPAP. Follows few commands, wakes up on loud commands. Head and neck exam: The patient has an OGT and endotracheal tube. Right eye blind. Neck is supple. There is no jugular venous distention (JVD). Cardiovascular: S1, S2 regular rate. 1+ edema in the thighs. No edema on the legs. Respiratory: Decreased breath sounds in the bases bilaterally. Otherwise, no active rales or rhonchi. Abdomen is obese, positive bowel sounds, 1+ edema of the abdominal pacheco. Musculoskeletal: Dressing on the left leg. ORDER EDITOR: He is intubated, not sedated, follows commands and wakes up. LAB REVIEW: CBC showed WBC 7.9, hemoglobin 10.8, platelets of 103. BMP showed sodium 141, potassium 3.9, chloride 104, bicarb 26, BUN 45, creatinine is 8.4, albumin is 2.9. CURRENT INPATIENT MEDICATIONS: The patient's medications were all reviewed by me. There is no change in the medications today as compared with yesterday. ASSESSMENT/PLAN: 1. End-stage renal disease on hemodialysis. The patient's regular dialysis days are Thursday, Thursday, Thursday. He was dialyzed and ultrafiltered two days in a row. He will be dialyzed again today. I will try to remove again about 2 kg of fluid as tolerated by his blood pressure. Next hemodialysis will be done on Thursday as per his regular schedule. 2. Vent dependent respiratory failure. The patient is currently on 21% FiO2. He is on BiPAP. Pulmonary service is planning to extubate him if he tolerates that. Volume status is being optimized with dialysis. 3. Anemia of end-stage renal disease. Hemoglobin level is optimal. He is getting 200 mcg of Aranesp with dialysis. 4. Decompensated diastolic congestive heart failure. The patient still has thigh edema and abdominal wall edema. So far 4 liters of fluid has been removed for last two days. I will remove more fluid today with dialysis. Total critical care time spent in the management of this patient today morning in the ICU is 40 minutes, excluding procedures.
--- NOTE | 2018-11-06 14:05 | IPNPDOC ---
Date Seen The patient was seen on 11/06/18. Progress Note Mr Yamil was seen and examined, now postoperative day 3 status post right upper extremity ligation of Pantera fistula, and creation of new brachiocephalic AV fistula with debridement of right forearm ulcer. The plan was to try to extubate this morning, but he was too sedated. Plan is to extubate when able. From a right upper extremity standpoint, there is a strong thrill over the brachiocephalic AV fistula. The incision is clean dry and intact. Steri-Strips were cleaned and left open to air. The incision at the wrist over the fistula ligation is clean dry and intact. Steri-Strips are clean and left open to air. The ulcer was examined, cleaned and has some granulation tissue with fibrinous exudate. It is improving. I thoroughly cleaned the ulcer and dressed with Xeroform dry gauze and a Tegaderm. The arm is elevated on a pillow appropriately and will continue to need elevation to help with swelling post ligation of fistula. We will continue to follow while the patient is inpatient, but outpatient wound care should consist of daily dressing changes to the right upper extremity ulcer (Xeroform, dry gauze, Tegaderm) and a goal to leave the Steri-Strips intact for 5-7 days to help with wound healing. VS, I&O, 24H, Fishbone Vital Signs/I&O Vital Signs Date Time Temp Pulse Resp B/P (MAP) Pulse Ox O2 Delivery O2 Flow Rate FiO2 11/06/18 12:00 99.2 112 22 88/55 (66) 100 21 11/04/18 18:20 Ventilator 11/03/18 11:43 2 I&O- Last 24 Hours up to 6 AM 11/06/18 09:00 Intake Total 1002 ml Output Total 2400 ml Balance -1398 ml Laboratory Data 24H LABS Laboratory Tests 2 11/05/18 17:46: Bedside Glucose (Misc Panel) 94 11/06/18 00:28: Bedside Glucose (Misc Panel) 125H 11/06/18 04:20: Immature Granulocyte % (Auto) 0.6, White Blood Count 7.9, Red Blood Count 3.39L, Hemoglobin 10.8L, Hematocrit 33.0L, Mean Corpuscular Volume 97.3H, Mean Corpuscular Hemoglobin 31.9, Mean Corpuscular Hemoglobin Concent 32.7, Red Cell Distribution Width 16.9H, Platelet Count 103L, Neutrophils (%) (Auto) 69.1H, Lymphocytes (%) (Auto) 10.8L, Monocytes (%) (Auto) 16.8H, Eosinophils (%) (Auto) 2.4, Basophils (%) (Auto) 0.3, Neutrophils # (Auto) 5.4, Lymphocytes # (Auto) 0.9L, Monocytes # (Auto) 1.3H, Eosinophils # (Auto) 0.2, Basophils # (Auto) 0.0, Nucleated Red Blood Cells % (auto) 0.5H, Prothrombin Time 28.2H, Prothromb Time International Ratio 2.66, Activated Partial Thromboplast Time 48.8H, Anion Gap 11, Glomerular Filtration Rate 8.1L, Blood Urea Nitrogen 45H, Creatinine 8.48*H, Sodium Level 141, Potassium Level 3.9, Chloride Level 104, Carbon Dioxide Level 26, Calcium Level 7.5L, Aspartate Amino Transf (AST/SGOT) 5L, Alanine Aminotransferase (ALT/SGPT) 9L, Alkaline Phosphatase 187H, Total Bilirubin 1.2H, Total Protein 6.6, Albumin 2.9L, Albumin/Globulin Ratio 0.78L 11/06/18 05:45: Bedside Glucose (Misc Panel) 112H 11/06/18 11:50: Bedside Glucose (Misc Panel) 117H 11/06/18 12:05: Blood Gas Bicarbonate Standard 23.5, Arterial Blood pH 7.428, Arterial Blood Partial Pressure CO2 35.4, Arterial Blood Partial Pressure O2 68.1L, Arterial Blood Total CO2 24.0, Arterial Blood HCO3 22.9, Arterial Blood Base Excess -1.0, Arterial Blood Oxygen Saturation 91.6L CBC/BMP Laboratory Tests 11/06/18 04:20 Red Blood Count 3.39 L, Mean Corpuscular Volume 97.3 H, Mean Corpuscular Hemoglobin 31.9, Mean Corpuscular Hemoglobin Concent 32.7, Red Cell Distribution Width 16.9 H, Neutrophils (%) (Auto) 69.1 H, Lymphocytes (%) (Auto) 10.8 L, Monocytes (%) (Auto) 16.8 H, Eosinophils (%) (Auto) 2.4, Basophils (%) (Auto) 0.3, Neutrophils # (Auto) 5.4, Lymphocytes # (Auto) 0.9 L, Monocytes # (Auto) 1.3 H, Eosinophils # (Auto) 0.2, Basophils # (Auto) 0.0, Calcium Level 7.5 L, Aspartate Amino Transf (AST/SGOT) 5 L, Alanine Aminotransferase (ALT/SGPT) 9 L, Alkaline Phosphatase 187 H, Total Bilirubin 1.2 H, Total Protein 6.6, Albumin 2.9 L NOAH KAM MD Nov 06, 2018 14:05
[2018-11-06] MEDS: WARFARIN SOD 5 MG TAB PO SCH (17:46)
[2018-11-07] VITALS (7 sets, daily range): BP systolic 92–104; BP diastolic 53–64
[2018-11-07] MEDS: ALBUTEROL SULFATE 2.5 MG/0.5 ML INH NEB SOLN NEB PRN (00:07)
[2018-11-07] MEDS: HumaLOG INSULIN (NovoLOG) PER UNIT SC SCH ×5 (01:04→20:30)
[2018-11-07 04:45] LABS: BASO # 0.1 10^3/uL (0.0-0.2); BASO % 0.5 % (0.0-1.0); EOS # 0.3 10^3/uL (0.0-0.50); EOS % 2.8 % (0.0-3.0); HEMATOCRIT 33.9 % (42.0-52.0); LYMPH # 1.1 10^3/uL (1.5-4.5); LYMPH % 10.7 % (24.0-44.0); MEAN CORPUSCULAR HEMOGLOBIN 32.8 pg (27.0-33.0); MEAN CORPUSCULAR HGB CONC 32.4 g/dl (32.0-36.5); MEAN CORPUSCULAR VOLUME 101.2 fl (80.0-96.0); MONO # 1.5 10^3/uL (0.0-0.8); MONO % 15.5 % (0.0-5.0); NEUTROPHILS % 69.9 % (36.0-66.0); RED BLOOD COUNT 3.35 10^6/uL (4.30-6.10)
[2018-11-07 04:48] LABS: PLATELET COUNT, AUTOMATED 87 10^3/uL (150-450)
[2018-11-07 05:03] LABS: CALCIUM LEVEL 8.1 MG/DL (8.8-10.2); CREATININE FOR GFR 6.9 MG/DL (0.70-1.30); GLOMERULAR FILTRATION RATE 10.2 (>42)
[2018-11-07] MEDS: CALCIUM ACETATE 667 MG/5 ML PO SCH ×3 (08:00→16:52)
[2018-11-07] MEDS: VITAMIN D 1,000 INTERNATIONAL UNITS TABLET PO SCH (10:23)
[2018-11-07] MEDS: ASPIRIN 81 MG CHEW TABLET NG SCH (10:23)
[2018-11-07] MEDS: ATORVASTATIN 20 MG TAB NG SCH (10:23)
[2018-11-07] MEDS: PANTOPRAZOLE 40MG INJ (PROTONIX) (C9113) IV SCH (10:23)
[2018-11-07] MEDS: METOPROLOL TART 25 MG TABLET NG SCH ×2 (10:24→10:27)
[2018-11-07] MEDS: GABAPENTIN 100 MG CAP NG SCH (10:25)
[2018-11-07] MEDS: DIAPER RELIEF PASTE (DESITIN) 60GM TOP SCH (10:25)
[2018-11-07] MEDS: CYANOCOBALAMIN 500 MCG TAB NG SCH (10:25)
[2018-11-07] MEDS: FLUTICASONE PROP 0.05% NASAL SPRAY 16 GM (FLONASE) SCH (10:25)
[2018-11-07] MEDS: EUCERIN 120GM CREAM TOP SCH ×2 (10:26→20:30)
--- NOTE | 2018-11-07 10:33 | IPN ---
DATE OF SERVICE: 11/07/2018 Mr. Lobo was extubated yesterday evening. I came to his bedside. He was awake, following commands, and had been on pressure support throughout the day and tolerating this well. He tolerated extubation to bilevel positive airway pressure (BiPAP) well. He has been on BiPAP overnight and is actually much more alert this morning. He states take the BiPAP off. He is noncompliant with his pressure therapy at home, therefore, I predict he will be noncompliant here. However, we can re-educate and help to facilitate compliance with his machine. This point in time, he will only need pressure therapy with sleep. PHYSICAL EXAM: Temperature is 97.1, pulse is 90, respiratory rate is 22, blood pressure is 104/63 with a mean arterial pressure 77, oxygen saturation is 97% on 0.21 FiO2 while on bilevel noninvasive therapy 13/8 with an average tidal volumes of 450-500. General: The patient is laying in bed, follows commands but appears weak. HEENT: His right eye has opacified. The left pupil is reactive to light. Mucous membranes are moist. Tongue is large, a Mallampati IV airway. Neck is also a large circumference without discernible JVP. No tracheal deviation. No stridor. Lymph: No cervical, supraclavicular, axillary adenopathy. Cardiac: Irregularly irregular with variable systolic and diastolic murmur. Point of maximum impulse (PMI) is displaced laterally. Currently, there is no systemic edema. Pulmonary: Fairly clear bilaterally. No rales, rhonchi, or wheezes. No dullness to percussion. No accessory muscle use. Abdomen: Soft, nontender, nondistended. No hepatosplenomegaly. There is a reducible umbilical hernia. Extremities: There is a left lower extremity wound. Left partial foot amputation. Right lower extremity without any significant edema. Neuro: No unilateral weakness, no tremor. The patient is following commands and attempting to speak through this mass. LABORATORY EVALUATION: Shows a sodium 140, potassium 4.0, chloride 104, bicarbonate 27, BUN of 29, creatinine of 6.9, and a white blood cell count of 10.0, hemoglobin 11.0, hematocrit of 34, and platelet count of 87. IMPRESSION: 1. Respiratory failure, hypercarbic, hypoxic, was secondary to volume status, now extubated, doing well on pressure therapy. He has known sleep apnea, noncompliant with therapy. He is refusing bilevel positive airway pressure (BiPAP) at this moment. Will continue to educate him on the need for pressure therapy at night. 2. End-stage renal disease. Appreciate management per nephrology. 3. Cardiomegaly. There is borderline concentric left ventricular hypertrophy with normal regional wall motion. Ejection fraction estimated at 60%. There is moderate elevation of pulmonary artery systolic pressure and some dilation of the right ventricle with probable underlying pulmonary hypertension. Central venous pressure was elevated at the time of at least 20 mmHg. At this point in time, the patient is doing well on room air, should return to pressure therapy at night. Should use this chronically, however, has been noncompliant in the past, therefore, I predict him to be noncompliant in the future. I am signing off. Please re-consult me if there are any questions or concerns.
--- NOTE | 2018-11-07 10:33 | IPNPDOC ---
Text Note Date of Service The patient was seen on 11/07/18. NOTE Subjective: Patient is a 73-year-old male with a PMHx of ESRD on HD (MWF), A. FIB on Coumadin, Tachy/Shane syndrome s/p pacemaker, HTN, DLP, IDDM2, ELISSA w/CPAP, Chronic wound LLE who presents to the ED after he experienced bleeding from his right arm AV fistula. Patient was admitted to the hospitalist service for further evaluation and treatment. [facility] surgeon was called on consultation and he had right IJ PermCath placement on 11/01/2018. Patient subsequently went for ligation of his right AV fistula and new right brachiocephalic AV fistula on 11/03/2018. After the procedure. Patient was unable to be extubated and was transferred to ICU for further management. Patient was successfully extubated on 11/06/2018. Patient was seen and examined at the bedside. Currently patient is on BiPAP machine. Denies any significant complaints, is able to follow commands. Objective: Vitals (See below) General: Lying in bed, no acute distress, comfortable, Awake / Alert HEENT: NC, AT CVS: +S1S2 Lungs: Poor inspiratory effort bilaterally Abdomen: Soft, ND, NT Extremities: - Edema, - Calf tenderness, L foot transmetatarsal amputation, Left calf wound - in dressing Assessment and plan: Dysfunctional R UE AV Fistula s/p Ligation and Creation of new R UE AV Fistula (11/03) - No further interventions planned at this time - c/w Dialysis via R IJ PermCath (Placed on 11/01) - Vascular surgery on consultation; appreciate their input s/p Hypoxic Respiratory failure, requiring mechanical ventilation - s/p Extubation on 11/06/2018 - Has been transitioned to BIPAP device - Dr. Curran on consultation; appreciate their input A fib - c/w rate control with metoprolol - c/w full anticoagulation with Coumadin HTN - BP has been on lower limits of normal - c/w Metoprolol with holding parameters Hypoalbuminemia - Complicating care Neuropathy - c/w Gabapentin Chronic LLE wound - c/w Wound care - Follows with Dr. Weinberg as an outpatient DLP - c/w Atorvastatin IDDM2 - Levemir has been discontinued - c/w ISS ELISSA on cpap - s/p intubation and mechanical ventilation - currently on BIPAP - may allow home CPAP use when stable GI prophylaxis - c/w Protonix DVT prophylaxis - c/w full anticoagulation with Coumadin Disposition: - Has been on BIPAP immediately after extubation VS,Genae, I+O VS, Ganeshbone, I+O Laboratory Tests 11/07/18 04:32 Red Blood Count 3.35 L, Mean Corpuscular Volume 101.2 H, Mean Corpuscular H emoglobin 32.8, Mean Corpuscular Hemoglobin Concent 32.4, Red Cell Distribution Width 16.9 H, Neutrophils (%) (Auto) 69.9 H, Lymphocytes (%) (Auto) 10.7 L, Monocytes (%) (Auto) 15.5 H, Eosinophils (%) (Auto) 2.8, Basophils (%) (Auto) 0.5, Neutrophils # (Auto) 7.0, Lymphocytes # (Auto) 1.1 L, Monocytes # (Auto) 1.5 H, Eosinophils # (Auto) 0.3, Basophils # (Auto) 0.1, Calcium Level 8.1 L Vital Signs Date Time Temp Pulse Resp B/P (MAP) Pulse Ox O2 Delivery O2 Flow Rate FiO2 11/07/18 08:00 21 11/07/18 08:00 97.1 90 22 104/63 (77) 97 11/04/18 18:20 Ventilator 11/03/18 11:43 2 I&O- Last 24 Hours up to 6 AM 11/07/18 06:00 Intake Total 60 ml Output Total 2600 ml Balance -2540 ml SAKINA PALOMO MD Nov 07, 2018 10:33
[2018-11-07] MEDS ORDERED: HumaLOG INSULIN (NovoLOG) PER UNIT SC SCH (12:00)
[2018-11-07] MEDS: WARFARIN SOD 5 MG TAB PO SCH (16:52)
--- NOTE | 2018-11-07 22:48 | IPNPDOC ---
Date Seen The patient was seen on 11/07/18. Progress Note Mr Yamil was seen and examined, now postoperative day 4 status post right upper extremity ligation of Pantera fistula, and creation of new brachiocephalic AV fistula with debridement of right forearm ulcer. Pt is now extubated and doing well. From a right upper extremity standpoint, there is a strong thrill over the brachiocephalic AV fistula. The incision is clean dry and intact. Steri-Strips were cleaned and left open to air. The incision at the wrist over the fistula ligation is clean dry and intact. Steri-Strips are clean and left open to air. The ulcer was examined, cleaned and has some granulation tissue with fibrinous exudate. It is improving. I thoroughly cleaned the ulcer and dressed with Xeroform dry gauze and a Tegaderm. The arm is elevated on a pillow appropriately and will continue to need elevation to help with swelling post ligation of fistula. We will continue to follow while the patient is inpatient, but outpatient wound care should consist of daily dressing changes to the right upper extremity ulcer and a goal to leave the Steri-Strips intact for 5-7 days to help with wound healing. VS, I&O, 24H, Fishbone Vital Signs/I&O Vital Signs Date Time Temp Pulse Resp B/P (MAP) Pulse Ox O2 Delivery O2 Flow Rate FiO2 11/07/18 20:00 97.6 95 20 99/64 (76) 98 11/07/18 08:10 21 11/04/18 18:20 Ventilator 11/03/18 11:43 2 I&O- Last 24 Hours up to 6 AM 11/07/18 09:00 Intake Total 180 ml Output Total 2600 ml Balance -2420 ml Laboratory Data 24H LABS Laboratory Tests 2 11/07/18 00:52: Bedside Glucose (Misc Panel) 106 11/07/18 04:32: Immature Granulocyte % (Auto) 0.6, White Blood Count 10.0, Red Blood Count 3.35L, Hemoglobin 11.0L, Hematocrit 33.9L, Mean Corpuscular Volume 101.2H, Mean Corpuscular Hemoglobin 32.8, Mean Corpuscular Hemoglobin Concent 32.4, Red Cell Distribution Width 16.9H, Platelet Count 87L, Neutrophils (%) (Auto) 69.9H, Lymphocytes (%) (Auto) 10.7L, Monocytes (%) (Auto) 15.5H, Eosinophils (%) (Auto) 2.8, Basophils (%) (Auto) 0.5, Neutrophils # (Auto) 7.0, Lymphocytes # (Auto) 1.1L, Monocytes # (Auto) 1.5H, Eosinophils # (Auto) 0.3, Basophils # (Auto) 0.1, Nucleated Red Blood Cells % (auto) 0.3H, Immature Platelet Fraction 5.7, Anion Gap 9, Glomerular Filtration Rate 10.2L, Blood Urea Nitrogen 29H, Creatinine 6.90H, Sodium Level 140, Potassium Level 4.0, Chloride Level 104, Carbon Dioxide Level 27, Calcium Level 8.1L 11/07/18 05:26: Bedside Glucose (Misc Panel) 104 11/07/18 12:05: Bedside Glucose (Misc Panel) 94 11/07/18 16:47: Bedside Glucose (Misc Panel) 91 11/07/18 20:17: Bedside Glucose (Misc Panel) 119H CBC/BMP Laboratory Tests 11/07/18 04:32 Red Blood Count 3.35 L, Mean Corpuscular Volume 101.2 H, Mean Corpuscular Hemoglobin 32.8, Mean Corpuscular Hemoglobin Concent 32.4, Red Cell Distribution Width 16.9 H, Neutrophils (%) (Auto) 69.9 H, Lymphocytes (%) (Auto) 10.7 L, Monocytes (%) (Auto) 15.5 H, Eosinophils (%) (Auto) 2.8, Basophils (%) (Auto) 0.5, Neutrophils # (Auto) 7.0, Lymphocytes # (Auto) 1.1 L, Monocytes # (Auto) 1.5 H, Eosinophils # (Auto) 0.3, Basophils # (Auto) 0.1, Calcium Level 8.1 L NOAH KAM MD Nov 07, 2018 22:48
[2018-11-08] VITALS (7 sets, daily range): BP systolic 97–114; BP diastolic 53–74
[2018-11-08 04:53] LABS: BASO % 0.3 % (0.0-1.0); EOS # 0.4 10^3/uL (0.0-0.50); HEMOGLOBIN 11.2 g/dl (13.5-17.5); LYMPH # 1.1 10^3/uL (1.5-4.5); LYMPH % 13.2 % (24.0-44.0); MEAN CORPUSCULAR HEMOGLOBIN 31.7 pg (27.0-33.0); MEAN CORPUSCULAR HGB CONC 31.1 g/dl (32.0-36.5); MONO # 1.4 10^3/uL (0.0-0.8); MONO % 16.2 % (0.0-5.0); NEUTROPHILS # 5.6 10^3/uL (1.8-7.7); NEUTROPHILS % 64.5 % (36.0-66.0); RED BLOOD COUNT 3.53 10^6/uL (4.30-6.10); WHITE BLOOD COUNT 8.6 10^3/uL (4.0-10.0)
[2018-11-08 04:56] LABS: PLATELET COUNT, AUTOMATED 95 10^3/uL (150-450)
[2018-11-08 05:15] LABS: CREATININE FOR GFR 8.73 MG/DL (0.70-1.30); GLOMERULAR FILTRATION RATE 7.8 (>42); POTASSIUM SERUM 4.3 MEQ/L (3.5-5.1)
[2018-11-08] MEDS: PANTOPRAZOLE 40MG INJ (PROTONIX) (C9113) IV SCH (07:22)
[2018-11-08] MEDS: CALCIUM ACETATE 667 MG/5 ML PO SCH ×3 (07:22→17:13)
[2018-11-08] MEDS: ASPIRIN 81 MG CHEW TABLET NG SCH (07:23)
[2018-11-08] MEDS: ATORVASTATIN 20 MG TAB NG SCH (07:23)
[2018-11-08] MEDS: GABAPENTIN 100 MG CAP NG SCH (07:23)
[2018-11-08] MEDS: VITAMIN D 1,000 INTERNATIONAL UNITS TABLET PO SCH (07:23)
[2018-11-08] MEDS: CYANOCOBALAMIN 500 MCG TAB NG SCH (07:23)
[2018-11-08] MEDS: EUCERIN 120GM CREAM TOP SCH ×2 (07:23→21:03)
[2018-11-08] MEDS: DIAPER RELIEF PASTE (DESITIN) 60GM TOP SCH (07:24)
[2018-11-08] MEDS: FLUTICASONE PROP 0.05% NASAL SPRAY 16 GM (FLONASE) SCH (07:24)
[2018-11-08] MEDS: METOPROLOL TART 25 MG TABLET NG SCH ×2 (07:26→21:00)
[2018-11-08] MEDS: HumaLOG INSULIN (NovoLOG) PER UNIT SC SCH ×4 (09:23→20:54)
--- NOTE | 2018-11-08 10:27 | IPNPDOC ---
Date Seen The patient was seen on 11/08/18. Progress Note SUBJECTIVE: Patient is a 73-year-old male with a PMHx of ESRD on HD (MWF), A. FIB on Coumadin, Tachy/Shane syndrome s/p pacemaker, HTN, DLP, IDDM2, ELISSA w/CPAP, Chronic wound LLE who presents to the ED after he experienced bleeding from his right arm AV fistula. Patient was admitted to the hospitalist service for further evaluation and treatment. [facility] surgeon was called on consultation and he had right IJ PermCath placement on 11/01/2018. Patient subsequently went for ligation of his right AV fistula and new right brachiocephalic AV fistula on 11/03/2018. After the procedure, patient was unable to be extubated and was transferred to ICU for further management. Patient was successfully extubated on 11/06/2018. Patient was seen and examined at the bedside on morning rounds eating his breakfast. Patient reports coughing up clear and yellow sputum. He reports expe riencing some wheezing this morning. He denies cp, sob, n/v, palpitations, and abdominal pain. He is able to follow commands. OBJECTIVE: PHYSICAL EXAMINATION: VITAL SIGNS: Please see below. General: Sitting up in bed eating breakfast, no acute distress, comfortable, AAOx3 HEENT: NC, AT CVS: +S1S2 Lungs: Wheezing heard throughout all lung mello Abdomen: Soft, ND, NT Extremities: - Edema, - Calf tenderness, L foot transmetatarsal amputation, Left calf wound - in dressing LABORATORY DATA, IMAGING STUDIES, MICROBIOLOGY: Please see below. DVT prophylaxis ordered?: Coumadin ASSESSMENT AND PLAN: This is a 73-year-old male who presented with bleeding of his right arm AV fistula. He is s/p IJ PermCath placement on 11/01/18 and right brachiocephalic AV fistula placement 11/03/18. He was successfully extubated on 11/06/18. PROBLEMS: 1. Dysfunctional R UE AV Fistula s/p Ligation and Creation of new R UE AV Fistula (11/03) - No further interventions planned at this time - c/w Dialysis via R IJ PermCath (Placed on 11/01) - Vascular surgery on consultation; appreciate their input - c/w wound care with daily dressing changes to RUE ulcer, goal to leave Steri-Strips intact for 5-7 days to help with wound healing, followed by Dr. Mattson, appreciate input 2. s/p Hypoxic Respiratory failure, requiring mechanical ventilation - s/p Extubation on 11/06/2018 - Dr. Curran on consultation; appreciate their input - Continue with CPAP for ELISSA 3. A fib - c/w rate control with metoprolol - c/w full anticoagulation with Coumadin 4. HTN - BP has been on lower limits of normal - c/w Metoprolol with holding parameters 5. Hypoalbuminemia - Complicating care - Transfused 6 units of albumin, nephrology consulted, appreciate their input 6. Neuropathy - c/w Gabapentin 7. Chronic LLE wound - c/w Wound care - Follows with Dr. Weinberg as an outpatient 8. DLP - c/w Atorvastatin 9. IDDM2 - Levemir has been discontinued - c/w ISS 10. ELISSA on cpap - s/p intubation and mechanical ventilation - c/w CPAP for ELISSA 11. GI prophylaxis - c/w Protonix 12. DVT prophylaxis - c/w full anticoagulation with Coumadin DISPOSITION: Guarded. C/w CPAP for ELISSA, tolerating extubation well. He does complain of some wheezing today. C/w dialysis. He will work with physical therapy, he states that he uses a walker for ambulation. Plan to downgrade from the ICU. Hopeful to be able to discharge tomorrow pending PT recommendation. VS, I&O, 24H, Fishbone Vital Signs/I&O Vital Signs Date Time Temp Pulse Resp B/P (MAP) Pulse Ox O2 Delivery O2 Flow Rate FiO2 11/08/18 09:24 97.4 11/08/18 08:04 97 20 103/61 (75) 99 11/07/18 08:10 21 11/04/18 18:20 Ventilator 11/03/18 11:43 2 I&O- Last 24 Hours up to 6 AM 11/08/18 06:00 Intake Total 300 ml Balance 300 ml Laboratory Data 24H LABS Laboratory Tests 2 11/07/18 12:05: Bedside Glucose (Misc Panel) 94 11/07/18 16:47: Bedside Glucose (Misc Panel) 91 11/07/18 20:17: Bedside Glucose (Misc Panel) 119H 11/08/18 04:44: Immature Granulocyte % (Auto) 0.8, White Blood Count 8.6, Red Blood Count 3.53L, Hemoglobin 11.2L, Hematocrit 36.0L, Mean Corpuscular Volume 102.0H, Mean C orpuscular Hemoglobin 31.7, Mean Corpuscular Hemoglobin Concent 31.1L, Red Cell Distribution Width 17.2H, Platelet Count 95L, Neutrophils (%) (Auto) 64.5, Lymphocytes (%) (Auto) 13.2L, Monocytes (%) (Auto) 16.2H, Eosinophils (%) (Auto) 5.0H, Basophils (%) (Auto) 0.3, Neutrophils # (Auto) 5.6, Lymphocytes # (Auto) 1.1L, Monocytes # (Auto) 1.4H, Eosinophils # (Auto) 0.4, Basophils # (Auto) 0.0, Nucleated Red Blood Cells % (auto) 0.6H, Immature Platelet Fraction 6.7, Anion Gap 9, Glomerular Filtration Rate 7.8L, Blood Urea Nitrogen 42H, Creatinine 8.73*H, Sodium Level 141, Potassium Level 4.3, Chloride Level 104, Carbon Dioxide Level 28, Calcium Level 8.0L CBC/BMP Laboratory Tests 11/08/18 04:44 Red Blood Count 3.53 L, Mean Corpuscular Volume 102.0 H, Mean Corpuscular He moglobin 31.7, Mean Corpuscular Hemoglobin Concent 31.1 L, Red Cell Distribution Width 17.2 H, Neutrophils (%) (Auto) 64.5, Lymphocytes (%) (Auto) 13.2 L, Monocytes (%) (Auto) 16.2 H, Eosinophils (%) (Auto) 5.0 H, Basophils (%) (Auto) 0.3, Neutrophils # (Auto) 5.6, Lymphocytes # (Auto) 1.1 L, Monocytes # (Auto) 1.4 H, Eosinophils # (Auto) 0.4, Basophils # (Auto) 0.0, Calcium Level 8.0 L GME ATTESTATION GME ATTESTATION My faculty preceptor for this patient encounter was physically present during the encounter and was fully available. All aspects of the patient interview, examination, medical decision making process, and medical care plan development were reviewed and approved by the faculty preceptor. The faculty preceptor is aware and concurs with the plan as stated in the body of this note and will attest to such by his/her cosignature. ATTENDING NOTE I, Lona Gutierrez, have independently examined this patient and performed my own physical exam, as well as reviewed the documentation and edited where necessary. I have discussed in detail with the resident / student the findings and plan of treatment as documented by the resident / student and edited their note. I agree with their findings and treatment plan and have edited their documentation. I will continue to follow the patient during this hospital stay. SORIN LOCK S-3 Nov 08, 2018 10:27 LONA GUTIERREZ MD Nov 08, 2018 10:37
[2018-11-08] MEDS ORDERED: HEPARIN 1,000 UNITS/ML 10ML VIAL (FOR RADIOLOGY& DIALYSIS ONLY) IV ONE (11:30)
[2018-11-08] MEDS ORDERED: HEPARIN 1,000 UNITS/ML 10ML VIAL (FOR RADIOLOGY& DIALYSIS ONLY) XX ONE (11:30)
[2018-11-08] MEDS: WARFARIN SOD 5 MG TAB PO SCH (17:12)
[2018-11-08] MEDS ORDERED: MOM 30ML SUSPENSION UDC PO ONE (20:00)
[2018-11-09 06:00] VITALS: BP 107/68
[2018-11-09 08:28] LABS: PROTHROMBIN TIME 48.5 SECONDS (11.8-14.0)
--- NOTE | 2018-11-09 08:37 | IPN ---
DATE OF SERVICE: 11/08/2018 SUBJECTIVE: The patient is seen and examined this morning in the hemodialysis unit receiving his maintenance treatment. He denies any new events or complaints. In view of the at aggressive dialysis treatments he had last week including extra dialysis sessions we are only removing 1 liter of fluid today. He has also not had much intake the past couple of days. Vital signs: Temperature 97.4, pulse 97, respiratory rate 20, blood pressure 114/74, saturating 100% on room air. Intake yesterday was only recorded as 270 mL. Dialysis today removed 1 liter. Weight in the bed scale today is not recorded. General: The patient is seen and the dialysis unit receiving his treatment, drowsy but easily arousable, right eye is blind. Tongue is moist. Neck is supple. Jugular veins are not elevated. There is a Perma-Cath present in the right chest wall which is currently in use. Cardiac: S1-S2, no edema in the peripheries, irregular rhythm. Lungs show some scattered wheeze. There is no accessory muscle use nor tachypnea. Abdomen is soft and nontender. There are bowel sounds. The extremities show no significant edema. The left foot transmetatarsal site has dressings. The right upper extremity brachial cephalic fistula is patent and immature. Neurologic: He is drowsy but easily arousable, cooperative with physical exam and answers simple questions appropriately. LABORATORY DATA: Sodium 141, potassium 4.3, glucose 109, albumin 2.9, hemoglobin 11.2. Inpatient medications reviewed by myself and noted. He was given a dose of milk of magnesium, otherwise there is no change from prior. PROBLEMS: 1. End-stage renal disease on hemodialysis on a Thursday, Thursday, Thursday schedule. The patient was aggressively dialyzed last week including [id number] dialysis on , Thursday and Thursday. He has not had much in the way of oral intake. We dialyzed him today to bring him back to his maintenance schedule only 1 liter of fluid was removed. He received albumin with dialysis in view of borderline blood pressures, he tolerated his treatment well. Perma-Cath is in good use. Given the platelet count of around 100,000 I did significantly decreased the amount of heparin he receives with dialysis. 2. Dysfunctional right radiocephalic fistula status post ligation and creation of right brachiocephalic fistula vascular surgery followup noted. He continues with dialysis via Perma-Cath at present. 3. Hypertension. There are holding parameters with metoprolol, blood pressures have been somewhat soft. He received albumin with dialysis today. 4. Atrial fibrillation. His INR was last checked 2 days ago and therapeutic at that time and beta kajal does have appropriate holding parameters. He remains rate controlled. 5. Anemia related to chronic renal failure, hemoglobin is satisfactory at 11.2 and his Aranesp was held today.
[2018-11-09] MEDS: DIAPER RELIEF PASTE (DESITIN) 60GM TOP SCH (09:00)
[2018-11-09] MEDS: CALCIUM ACETATE 667 MG/5 ML PO SCH ×3 (09:06→17:40)
[2018-11-09] MEDS: FLUTICASONE PROP 0.05% NASAL SPRAY 16 GM (FLONASE) SCH (09:06)
[2018-11-09] MEDS: PANTOPRAZOLE 40MG INJ (PROTONIX) (C9113) IV SCH (09:06)
[2018-11-09] MEDS: EUCERIN 120GM CREAM TOP SCH ×2 (09:06→21:34)
[2018-11-09] MEDS: HumaLOG INSULIN (NovoLOG) PER UNIT SC SCH ×4 (09:07→20:34)
[2018-11-09] MEDS: ASPIRIN 81 MG CHEW TABLET PO SCH (09:08)
[2018-11-09] MEDS: VITAMIN D 1,000 INTERNATIONAL UNITS TABLET PO SCH (09:08)
[2018-11-09] MEDS: CYANOCOBALAMIN 500 MCG TAB PO SCH (09:09)
[2018-11-09] MEDS: METOPROLOL TART 25 MG TABLET PO SCH ×2 (09:09→21:34)
[2018-11-09] MEDS: ATORVASTATIN 20 MG TAB PO SCH (09:10)
[2018-11-09] MEDS: GABAPENTIN 100 MG CAP PO SCH (09:10)
--- NOTE | 2018-11-09 09:19 | REP ---
Clinical: Shortness of breath. Comparison: 11/06/2018. Findings: Cardiomegaly remains stable. Double-lumen dialysis catheter and pacemaker are in stable satisfactory positions. Lung mello demonstrate mild pulmonary vascular congestion with minimally improved aeration as compared to prior examination. No discrete focal consolidation or effusion identified. No pneumothorax. Skeletal structures stable. Impression: Cardiomegaly and evidence for pulmonary vascular congestion which appears improved compared to 11/06/2018. Electronically Signed by Pito Allen MD 11/09/2018 09:11 A
[2018-11-09 09:33] LABS: INR 5.24
[2018-11-09 10:14] LABS: BASO % 0.4 % (0.0-1.0); EOS # 0.3 10^3/uL (0.0-0.50); EOS % 4.3 % (0.0-3.0); HEMATOCRIT 36.9 % (42.0-52.0); HEMOGLOBIN 11.5 g/dl (13.5-17.5); LYMPH % 12.8 % (24.0-44.0); MEAN CORPUSCULAR HEMOGLOBIN 32.6 pg (27.0-33.0); MEAN CORPUSCULAR HGB CONC 31.2 g/dl (32.0-36.5); MEAN CORPUSCULAR VOLUME 104.5 fl (80.0-96.0); MONO # 1.2 10^3/uL (0.0-0.8); MONO % 14.6 % (0.0-5.0); NEUTROPHILS # 5.4 10^3/uL (1.8-7.7); NEUTROPHILS % 67.3 % (36.0-66.0); PLATELET COUNT, AUTOMATED 104 10^3/uL (150-450); RED BLOOD COUNT 3.53 10^6/uL (4.30-6.10)
[2018-11-09 10:17] LABS: CALCIUM LEVEL 8.4 MG/DL (8.8-10.2); CREATININE FOR GFR 6.38 MG/DL (0.70-1.30); GLOMERULAR FILTRATION RATE 11.2 (>42); POTASSIUM SERUM 4.1 MEQ/L (3.5-5.1)
--- NOTE | 2018-11-09 13:28 | IPNPDOC ---
Text Note Date of Service The patient was seen on 11/09/18. NOTE Subjective: Patient is a 73-year-old male with a PMHx of ESRD on HD (MWF), A. FIB on Coumadin, Tachy/Shane syndrome s/p pacemaker, HTN, DLP, IDDM2, ELISSA w/CPAP, Chronic wound LLE who presents to the ED after he experienced bleeding from his right arm AV fistula. Patient was admitted to the hospitalist service for further evaluation and treatment. [facility] surgeon was called on consultation and he had right IJ PermCath placement on 11/01/2018. Patient subsequently went for ligation of his right AV fistula and new right brachiocephalic AV fistula on 11/03/2018. After the procedure. Patient was unable to be extubated and was transferred to ICU for further management. Patient was successfully extubated on 11/06/2018. Patient was seen and examined at the bedside. Patient reports that he had an uneventful night. Denies chest pain or palpitations. Patient does report some shortness of breath and cough. He denies any nausea, vomiting, abdominal pain or diarrhea. Objective: Vitals (See below) General: Lying in bed, no acute distress, comfortable, Awake / Alert HEENT: NC, AT CVS: +S1S2 Lungs: Inspiratory effort is poor bilaterally, but there is no auscultated rhonchi, rales or wheezing Abdomen: Soft, nondistended, nontender Extremities: No evidence of edema, - Calf tenderness, L foot transmetatarsal amputation, Left calf wound - in dressing Assessment and plan: Dysfunctional R UE AV Fistula s/p Ligation and Creation of new R UE AV Fistula (11/03) - No further interventions planned at this time - c/w Dialysis via R IJ PermCath (Placed on 11/01) - Vascular surgery on consultation; appreciate their input s/p Hypoxic Respiratory failure, requiring mechanical ventilation - s/p Extubation on 11/06/2018; s/p BIPAP device - Dr. Curran was consulted; appreciate their input A fib - c/w rate control with metoprolol - INR supra-therapeutic - Will hold Coumadin HTN - BP has been on lower limits of normal - c/w Metoprolol with holding parameters Hypoalbuminemia - Complicating care Neuropathy - c/w Gabapentin Chronic LLE wound - c/w Wound care - Follows with Dr. Weinberg as an outpatient DLP - c/w Atorvastatin IDDM2 - Levemir has been discontinued - c/w ISS ELISSA on cpap - s/p intubation and mechanical ventilation; s/p BIPAP - may allow home CPAP while inpatient GI prophylaxis - c/w Protonix DVT prophylaxis - INR supra-therapeutic - Coumadin on hold Disposition: - Will work with physical therapy; awaiting clearance VS,Fishbone, I+O VS, Fishbone, I+O Laboratory Tests 11/09/18 08:05 Red Blood Count 3.53 L, Mean Corpuscular Volume 104.5 H, Mean Corpuscular Hemoglobin 32.6, Mean Corpuscular Hemoglobin Concent 31.2 L, Red Cell Distribution Width 17.2 H, Neutrophils (%) (Auto) 67.3 H, Lymphocytes (%) (Auto) 12.8 L, Monocytes (%) (Auto) 14.6 H, Eosinophils (%) (Auto) 4.3 H, Basophils (%) (Auto) 0.4, Neutrophils # (Auto) 5.4, Lymphocytes # (Auto) 1.0 L, Monocytes # (Auto) 1.2 H, Eosinophils # (Auto) 0.3, Basophils # (Auto) 0.0, Calcium Level 8.4 L Vital Signs Date Time Temp Pulse Resp B/P (MAP) Pulse Ox O2 Delivery O2 Flow Rate FiO2 11/09/18 09:09 90 119/77 11/09/18 06:00 97.4 20 93 11/07/18 08:10 21 11/04/18 18:20 Ventilator 11/03/18 11:43 2 I&O- Last 24 Hours up to 6 AM 11/09/18 06:00 Intake Total 570 ml Output Total 1000 ml Balance -430 ml SAKINA PALOMO MD Nov 09, 2018 13:28
[2018-11-09 14:00] VITALS: BP 119/74
--- NOTE | 2018-11-09 14:35 | IPN ---
DATE OF SERVICE: 11/09/2018 SUBJECTIVE: Mr. Lobo is seen and examined on bedside rounds this morning, he is laying in bed and appears comfortable. He did have hemodialysis yesterday, 11/08/2018, only one liter of fluid was removed in light of the aggressive dialysis treatments that he had last week. His intake has improved, but it has still been minimal over the past few days. Vital signs: Temperature 97.4, pulse 90, respiratory rate 20, blood pressure 107/68, pulse oximetry 93% on room air. Intake was reported to be 540 mL. His weight in the bed scale this morning was not documented. GENERAL: The patient is seen in his room this morning, he is speaking in full sentences, he is laying down and comfortable, does not appear in any distress. HEENT: Extraocular muscles intact, moist mucous membranes, he does continue to cough up copious secretions which he is suctioning out himself, JV elevation is not appreciated. CARDIAC: Normal S1 and S2, he does have a systolic murmur, there is no irregular rhythm, no extra murmurs are heard. RESPIRATORY: Diffuse breath sounds throughout likely secondary to body habitus: There is no wheezing, rales, or rhonchi appreciated. ABDOMEN: Soft, nontender to palpation, normoactive bowel sounds times four, no hepatosplenomegaly or masses appreciated although hard to discern secondary to obesity, there is no rebound, rigidity, or guarding. EXTREMITIES: There is no significant edema, cyanosis, or mottling, there is a dressing over his left lower extremity at the site of his past transmetatarsal amputations. Dressing is noted to be dry and intact and clean. He does have a right upper extremity brachial cephalic fistula that is patent and immature. NEUROLOGIC: He is awake, alert, and oriented on examination today, he is cooperative with physical examination and questioning. LABORATORY DATA: Sodium 139, potassium 4.1, chloride 102, carbon dioxide bicarbonate is 29, BUN and creatinine 24 and 6.38 respectively, calcium 8.4. PROBLEMS: 1. End-stage renal disease. On hemodialysis Thursday, Thursday, and Thursday. Patient was dialyzed yesterday gently with 1 liter of fluid removal. This is in light of his prior weeks' aggressive dialysis sessions. His oral intake does seem to be improving slowly. Our plan is to bring him back to maintenance schedule for dialysis. He had received albumin with dialysis in view of his borderline blood pressures, he was tolerating his treatments well. PermaCath is noted to be good use. Platelet count was noted to be 104 today. The heparin that he usually receives in dialysis had been decreased. 2. Dysfunctional right radial cephalic fistula. Status post ligation and creation of right brachial cephalic fistula. Vascular surgery followup has been noted, he continues with dialysis via his right PermaCath. 3. Hypertension. He continues on his metoprolol with holding parameters, blood pressure continues to be somewhat soft. He has received albumin with dialysis. 4. Atrial fibrillation. INR was checked this morning and was 5.24, he is supratherapeutic. He does appear to be rate controlled. If he does clear physical therapy (PT) and is discharged today he will have to hold his Coumadin for at least 2 days. This was discussed with the hospitalist. 5. Anemia. His hemoglobin and hematocrit is stable, 11.5 and 36.9 today. This is likely secondary to chronic renal failure. He has received Aranesp in the past. My faculty preceptor for this patient encounter was physically present during the encounter and was fully available. All aspects of the patient interview, examination, medical decision making process, and medical care plan development were reviewed and approved by the faculty preceptor. The faculty preceptor is aware and concurs with the plan as stated in the body of this note and will attest to such by his/her cosignature.
[2018-11-09 21:25] VITALS: BP 118/76
[2018-11-09 22:00] VITALS: BP 102/70
--- NOTE | 2018-11-10 04:54 | IPN ---
DATE: 11/07/2018 (cut off) though his tells me he is not at his usual baseline mentation. He was able to take some liquid intake and is seen without any supplemental oxygen at the time of my visit and is able to follow commands without delay. VITAL SIGNS: Temperature 98.0, pulse 93, respiratory rate 20, blood pressure 96/56, saturating 99% on room air. Intake yesterday was 270. Dialysis yesterday removed 2500. Weight on the bed scale today is not recorded. GENERAL: Patient is seen lying in bed, drowsy, but very easily arousable. Answers simple questions appropriately. Has a chronic stutter. Follows simple commands. is present at the bedside. Right eye is blind. Neck is supple. There is no jugular venous distension. CARDIAC: S1, S2. Regular rate. Trace to 1+ edema that has improved from prior. RESPIRATORY: There are coarse breath sounds bilaterally. There is no tachypnea nor accessory muscle use. ABDOMEN: Is obese. There are bowel sounds. There is a dressing on his left foot and leg. His right upper extremity radiocephalic fistula has been ligated. There is a recently placed brachiocephalic fistula, which is patent and immature. NEUROLOGIC: He is drowsy but easily arousable. He is able to tell me his name, where he is, and he does recognize me and follows commands without delay. LABS: White count 10.0, hemoglobin 11.0, platelet 87. Sodium 140, potassium 4.0, bicarbonate 27. INPATIENT MEDICATIONS: Reviewed by myself. His insulin was adjusted per the primary team. Remainder of medications are unchanged from prior. PROBLEMS: 1. End-stage renal disease on hemodialysis on a Thursday, Thursday, Thursday maintenance schedule. He did receive an extra dialysis and ultrafiltration over the weekend with three [id number] sessions on , Thursday, and Thursday for optimization of his volume status. His next dialysis will be on Thursday as per his regular schedule. His prior access was ligated (right radiocephalic fistula), and he has a newly placed right brachiocephalic fistula and he is presently being dialyzed via Permcath. His electrolytes are acceptable. His volume status has improved significantly from prior. 2. Anemia of end-stage renal disease. Hemoglobin is 11, which is optimal, and he continues on the usual Aranesp. 3. Status post ventilator dependent respiratory failure. He was dialyzed three sessions [id number]. Volume status improved. He is extubated. He is followed by pulmonary. He is only agreeable for noninvasive ventilation with sleep. 4. Dysfunctional right radiocephalic fistula status post ligation and creation of new right brachiocephalic fistula, presently dialyzing via Permcath and will followup with vascular surgery further as an outpatient. 5. Atrial fibrillation. Rate controlled with beta-kajal, which I note has been held recently due to soft blood pressures, and he continues with Coumadin anticoagulation with a therapeutic INR.
[2018-11-10 06:00] VITALS: BP 115/69
[2018-11-10 06:32] LABS: BASO % 0.6 % (0.0-1.0); EOS # 0.4 10^3/uL (0.0-0.50); HEMATOCRIT 36.3 % (42.0-52.0); HEMOGLOBIN 11.4 g/dl (13.5-17.5); LYMPH % 13.8 % (24.0-44.0); MEAN CORPUSCULAR HEMOGLOBIN 32.7 pg (27.0-33.0); MEAN CORPUSCULAR HGB CONC 31.4 g/dl (32.0-36.5); MONO # 1.2 10^3/uL (0.0-0.8); MONO % 17.1 % (0.0-5.0); NEUTROPHILS # 4.6 10^3/uL (1.8-7.7); NEUTROPHILS % 62.7 % (36.0-66.0); PLATELET COUNT, AUTOMATED 111 10^3/uL (150-450); RED BLOOD COUNT 3.49 10^6/uL (4.30-6.10); WHITE BLOOD COUNT 7.3 10^3/uL (4.0-10.0)
[2018-11-10] MEDS: VITAMIN D 1,000 INTERNATIONAL UNITS TABLET PO SCH (06:33)
[2018-11-10] MEDS: CYANOCOBALAMIN 500 MCG TAB PO SCH (06:33)
[2018-11-10] MEDS: ASPIRIN 81 MG CHEW TABLET PO SCH (06:34)
[2018-11-10] MEDS: METOPROLOL TART 25 MG TABLET PO SCH ×2 (06:35→20:53)
[2018-11-10] MEDS: GABAPENTIN 100 MG CAP PO SCH (06:36)
[2018-11-10] MEDS: PANTOPRAZOLE 40MG INJ (PROTONIX) (C9113) IV SCH (06:36)
[2018-11-10] MEDS: ATORVASTATIN 20 MG TAB PO SCH (06:38)
[2018-11-10] MEDS: EUCERIN 120GM CREAM TOP SCH ×2 (06:38→20:54)
[2018-11-10] MEDS: FLUTICASONE PROP 0.05% NASAL SPRAY 16 GM (FLONASE) SCH (06:38)
[2018-11-10 06:44] LABS: INR 3.78; PROTHROMBIN TIME 37.4 SECONDS (11.8-14.0)
[2018-11-10 06:45] LABS: CALCIUM LEVEL 8.3 MG/DL (8.8-10.2); CREATININE FOR GFR 7.86 MG/DL (0.70-1.30); GLOMERULAR FILTRATION RATE 8.8 (>42); POTASSIUM SERUM 4.5 MEQ/L (3.5-5.1)
[2018-11-10] MEDS: HumaLOG INSULIN (NovoLOG) PER UNIT SC SCH ×4 (06:52→20:54)
[2018-11-10] MEDS: DIAPER RELIEF PASTE (DESITIN) 60GM TOP SCH (08:13)
[2018-11-10] MEDS: CALCIUM ACETATE 667 MG/5 ML PO SCH ×3 (08:13→18:28)
--- NOTE | 2018-11-10 11:16 | IPNPDOC ---
Text Note Date of Service The patient was seen on 11/10/18. NOTE Subjective: Patient is a 73-year-old male with a PMHx of ESRD on HD (MWF), A. FIB on Coumadin, Tachy/Shane syndrome s/p pacemaker, HTN, DLP, IDDM2, ELISSA w/CPAP, Chronic wound LLE who presents to the ED after he experienced bleeding from his right arm AV fistula. Patient was admitted to the hospitalist service for further evaluation and treatment. [facility] surgeon was called on consultation and he had right IJ PermCath placement on 11/01/2018. Patient subsequently went for ligation of his right AV fistula and new right brachiocephalic AV fistula on 11/03/2018. After the procedure. Patient was unable to be extubated and was transferred to ICU for further management. Patient was successfully extubated on 11/06/2018. Patient was seen and examined at the bedside. Currently, patient reports they have been working physical therapy, however , they note that they're very weak. Patient denies chest pain, shortness of breath or palpitations. Denies nausea, vomiting, abdominal pain or any constipation. Have advised him that we will order occupational therapy as well as. Objective: Vitals (See below) General: Lying in bed, no acute distress, comfortable, Awake / Alert HEENT: NC, AT CVS: +S1S2 Lungs: Poor inspiratory effort. However, there is no appreciated rhonchi, rales or wheezing Abdomen: Morbid obesity without distention or tenderness, remains soft Extremities: No edema appreciated, - Calf tenderness, L foot transmetatarsal amputation, Left calf wound - in dressing Assessment and plan: Dysfunctional R UE AV Fistula s/p Ligation and Creation of new R UE AV Fistula (11/03) - No further interventions planned at this time - c/w Dialysis via R IJ PermCath (Placed on 11/01) - Vascular surgery on consultation; appreciate their input - c/w Physical therapy to help improve strength; will add occupational therapy s/p Hypoxic Respiratory failure, requiring mechanical ventilation - s/p Extubation on 11/06/2018; s/p BIPAP device - Dr. Curran was consulted; appreciate their input A fib - c/w rate control with metoprolol - INR supra-therapeutic; improving - Will hold Coumadin; resume once within therapeutic range HTN - BP has been on lower limits of normal - c/w Metoprolol with holding parameters Hypoalbuminemia - Complicating care Neuropathy - c/w Gabapentin Chronic LLE wound - c/w Wound care - Follows with Dr. Weinberg as an outpatient DLP - c/w Atorvastatin IDDM2 - Levemir has been discontinued - c/w ISS ELISSA on cpap - s/p intubation and mechanical ventilation; s/p BIPAP - may allow home CPAP while inpatient GI prophylaxis - c/w Protonix DVT prophylaxis - INR supra-therapeutic - Coumadin on hold - resume once within therapeutic range Disposition: - c/w PT; will add OT VS,Fishbone, I+O VS, Fishbone, I+O Laboratory Tests 11/10/18 05:27 Red Blood Count 3.49 L, Mean Corpuscular Volume 104.0 H, Mean Corpuscular Hemoglobin 32.7, Mean Corpuscular Hemoglobin Concent 31.4 L, Red Cell Distribution Width 17.2 H, Neutrophils (%) (Auto) 62.7, Lymphocytes (%) (Auto) 13.8 L, Monocytes (%) (Auto) 17.1 H, Eosinophils (%) (Auto) 5.0 H, Basophils (%) (Auto) 0.6, Neutrophils # (Auto) 4.6, Lymphocytes # (Auto) 1.0 L, Monocytes # (Auto) 1.2 H, Eosinophils # (Auto) 0.4, Basophils # (Auto) 0.0, Calcium Level 8.3 L Vital Signs Date Time Temp Pulse Resp B/P (MAP) Pulse Ox O2 Delivery O2 Flow Rate FiO2 11/10/18 06:35 86 115/69 11/10/18 06:00 98.0 20 94 11/07/18 08:10 21 11/04/18 18:20 Ventilator I&O- Last 24 Hours up to 6 AM 11/10/18 06:00 Intake Total 960 ml Output Total 0 ml Balance 960 ml SAKINA PALOMO MD Nov 10, 2018 11:16
--- NOTE | 2018-11-10 13:04 | IPN ---
DATE OF SERVICE: 11/10/2018 SUBJECTIVE: Mr. Lobo is seen and examined on bedside rounds this morning. He is sitting in his bedside chair watching television and appears comfortable. He is due to get hemodialysis this afternoon. His last hemodialysis was on 11/08/2018. His intake has improved again. However, it is not optimal. VITAL SIGNS: Temperature 98, pulse 86, respiratory rate 20, blood pressure 115/69, pulse oximetry is 94% on room air. Intake has been noted to be 960 over the past 24 hours. His weight was not documented this morning. PHYSICAL EXAMINATION: GENERAL: The patient is seen in his bedroom again this morning. He is sitting in a bedside chair watching television. He is speaking in full sentences and is comfortable appearing. He is not in any distress. HEENT: Extraocular muscles intact, moist mucous membranes. He is coughing up minimal secretions today. Jugular vein (JV) elevation not appreciated. CARDIAC: Normal S1 and S2. He does have a systolic murmur, at least +2. No irregular rhythm, and no extra murmurs are heard. RESPIRATORY: Diminished breath sounds throughout, likely secondary to obese body habitus. No wheezing, rales, or rhonchi appreciated. ABDOMEN: Soft, nontender to palpation, normoactive bowel sounds times four. There are no masses or hepatosplenomegaly. There has never been rigidity or guarding. Obese abdomen. EXTREMITIES: No significant edema, cyanosis, or mottling. There is a continued dressing over his left lower extremity at the site of past metatarsal amputations. Dressing is clean, dry, and intact. He does have right upper extremity brachiocephalic fistula that is patent and immature and covered. Dressing noted to be clean, dry, and intact. NEUROLOGIC: He is awake, alert, and oriented on examination today. He is cooperative with physical examination and questioning. LABORATORY DATA: WBC is 7.3, hemoglobin and hematocrit 11.4 and 36.2 respectively, platelet count is 111. Sodium 139, potassium 4.5, chloride 103, bicarbonate 28, BUN and creatinine 36 and 7.86 respectively. PROBLEMS: 1. End-stage renal disease. On hemodialysis Thursday, Thursday, and Thursday. He will be dialyzed this afternoon. Our plan is to remove 1-2 liters today. He will receive albumin during dialysis. His PermCath on examination is noted to be in good use. Due to his low platelet count, we are going to be holding heparin today. Our goal is to bring him back to his maintenance schedule for dialysis. 2. Dysfunctional right radiocephalic fistula. Status post ligation and creation of right brachiocephalic fistula. Vascular surgery followup is noted and appreciated. He continues with dialysis via his right PermCath as discussed above. 3. Hypertension. He does continue on metoprolol with holding parameters. Blood pressures are soft. He is going to be receiving albumin again with dialysis this afternoon. 4. Atrial fibrillation. International normalized ratio (INR) was checked this morning and was supratherapeutic again with an INR of 3.78. As discussed above, his heparin is going to be held in dialysis today. 5. Anemia. Hemoglobin and hematocrit are stable today. Likely, anemia of chronic renal failure. He has received Aranesp in the past.
[2018-11-10] MEDS ORDERED: HEPARIN 1,000 UNITS/ML 10ML VIAL (FOR RADIOLOGY& DIALYSIS ONLY) XX ONE (15:15)
[2018-11-10 22:00] VITALS: BP 105/65
[2018-11-11 06:00] VITALS: BP 102/61
[2018-11-11 06:30] LABS: INR 2.79; PROTHROMBIN TIME 29.3 SECONDS (11.8-14.0)
[2018-11-11] MEDS: PANTOPRAZOLE 40MG TAB (PROTONIX) PO SCH (08:32)
[2018-11-11] MEDS: CALCIUM ACETATE 667 MG/5 ML PO SCH ×3 (08:32→17:41)
[2018-11-11] MEDS: ATORVASTATIN 20 MG TAB PO SCH (08:33)
[2018-11-11] MEDS: GABAPENTIN 100 MG CAP PO SCH (08:33)
[2018-11-11] MEDS: METOPROLOL TART 25 MG TABLET PO SCH ×2 (08:33→20:51)
[2018-11-11] MEDS: ASPIRIN 81 MG CHEW TABLET PO SCH (08:33)
[2018-11-11] MEDS: CYANOCOBALAMIN 500 MCG TAB PO SCH (08:33)
[2018-11-11] MEDS: VITAMIN D 1,000 INTERNATIONAL UNITS TABLET PO SCH (08:33)
[2018-11-11] MEDS: FLUTICASONE PROP 0.05% NASAL SPRAY 16 GM (FLONASE) SCH (08:34)
[2018-11-11] MEDS: HumaLOG INSULIN (NovoLOG) PER UNIT SC SCH ×4 (08:34→20:52)
[2018-11-11] MEDS: DIAPER RELIEF PASTE (DESITIN) 60GM TOP SCH (08:35)
[2018-11-11] MEDS: EUCERIN 120GM CREAM TOP SCH ×2 (08:36→20:52)
--- NOTE | 2018-11-11 12:52 | IPN ---
DATE: 11/11/2018 SUBJECTIVE: Mr. Lobo is seen and examined on bedside rounds this morning. He is sitting in his bedside chair again today watching television and participating in speech therapy. He is comfortable. He is due for dialysis today. His intake has improved. Intake is documented as 660. Weight is undocumented this morning. VITAL SIGNS: Temperature 97.7, pulse 87 and irregular. Respiratory rate 20, blood pressure 102/61, pulse ox is 97%. GENERAL: He is sitting in his bedside chair but is sitting with speech therapist. He is speaking in full sentences. It is a little bit garbled and hard to understand, which is normal for him. He is comfortable. He is not in any distress. HEENT: Extraocular muscles intact, moist mucous membranes. He does not appear to be coughing up secretions today. Jugular venous distention (JVD) is not elevated. CARDIAC: Normal S1, S2, +2 systolic murmur. There is no extra murmurs are heard. RESPIRATORY: Diminished breath sounds throughout secondary to his obese body habitus. However, I cannot hear any wheezing, rales, or rhonchi. ABDOMEN: Soft, nontender to palpation. Normoactive bowel sounds. There are no masses or hepatosplenomegaly. There has not been any rebound, rigidity, or guarding. He does have an obese abdomen. EXTREMITIES: No significant edema, cyanosis or mottling. He has a continued dressing over his left lower extremity at the site of past metatarsal amputations. Dressing is clean, dry and intact. He does have a right upper extremity brachiocephalic fistula that is patent and mature and covered. Dressing is noted to be clean, dry and intact, there is good thrill over this. NEURO: He is awake, alert and oriented on examination today. He is cooperative with physical examination. LABORATORY DATA: WBC 7.3, hemoglobin and hematocrit 11.4 and 36.3 respectively with a platelet count of 111. Sodium 139, potassium 4.5, chloride 103, bicarbonate 28, BUN and creatinine is 36 and 7.86 respectively. PROBLEMS: 1. End-stage renal disease on hemodialysis Thursday, Thursday and Thursday. He is going to be dialyzed this afternoon, goal of 1-2 liters fluid removal. He might receive albumin during dialysis depending on blood pressures. His PermaCath on examination is noted to be in good use. He will be getting a low amount of heparin during dialysis due to platelet number. 2. Dysfunctional right brachiocephalic fistula: Status post ligation and creation of a new right brachiocephalic fistula. Vascular surgery following. He continues with dialysis via his right PermaCath. 3. Hypertension: He is on metoprolol holding parameters. Blood pressures do continue to be soft. We will see how his blood pressures are during dialysis to decide if he needs another albumin dose. 4. Atrial fibrillation: His INR this morning was checked and he is now therapeutic at 2.79. He will be getting a small amount of heparin and dialysis today. 5. Anemia: Hemoglobin and hematocrit is stable today. This is secondary to his chronic renal failure. Status post Aranesp.
--- NOTE | 2018-11-11 12:54 | NUR ---
Recommend MBSS Cookie Swallow d/t reported decline in oral motor control, recent intubation, and intermittent coughing/throat clearing prior to and throughout PO intake. Recommend continue current diet as tolerated pending results of MBSS. Dysphagia tx and motor speech eval recommended. Addendum: 11/11/[address] [facility] Amended: Links added.
--- NOTE | 2018-11-11 13:24 | IPNPDOC ---
Subjective Date Seen The patient was seen on 11/11/18. Subjective Chief Complaint/HPI Patient seen and examined the bedside. Reports that he has been having some increase in coughing after eating. Denies any nausea or vomiting. Speech therapy ordered for evaluation. Otherwise, no acute overnight events noted. Objective Physical Examination General Exam: Positive: Alert, Cooperative, No Acute Distress Chest Exam: Positive: Diminished; Negative: Rales, Rhonchi, Wheezing Heart Exam: Positive: Rate Normal, Normal S1, Normal S2 Abdomen Exam: Positive: Soft; Negative: Tenderness Extremity Exam: Positive: Other (left LE with transmetarsal amputation and chronic wound of dorsal aspect of calcaneus); Negative: Cyanosis Skin Exam: Positive: Breakdown (as noted above), Other skin issue (RUE with AV fistula site noted) Psych Exam: Positive: Mood NL Assessment /Plan Plan/VTE VTE Prophylaxis Ordered?: Yes Plan Dysfunctional R UE AV Fistula s/p Ligation and Creation of new R UE AV Fistula (11/03) Cont Dialysis via R IJ PermCath (Placed on 11/01) Vascular surgery on consultation; appreciate their input s/p Hypoxic Respiratory failure, requiring mechanical ventilation s/p Extubation on 11/06/2018; s/p BIPAP device A fib Cont metoprolol, Coumadin HTN Metoprolol with holding parameters Hypoalbuminemia Complicating care Neuropathy Gabapentin Chronic LLE wound c/w Wound care Follows with Dr. Weinberg as an outpatient DLP c/w Atorvastatin IDDM2 c/w ISS ELISSA on cpap may allow home CPAP while inpatient GI prophylaxis Protonix DVT prophylaxis On Coumadin Disposition: Pending functional optimization with PT/OT. VS, I&O, 24H, Fishbone Vital Signs/I&O Vital Signs Date Time Temp Pulse Resp B/P (MAP) Pulse Ox O2 Delivery O2 Flow Rate FiO2 11/11/18 08:33 87 102/61 11/11/18 06:00 97.7 20 97 11/07/18 08:10 21 I&O- Last 24 Hours up to 6 AM 11/11/18 06:00 Intake Total 600 ml Output Total 2000 ml Balance -1400 ml Laboratory Data 24H LABS Laboratory Tests 2 11/10/18 18:17: Bedside Glucose (Misc Panel) 95 11/10/18 20:39: Bedside Glucose (Misc Panel) 154H 11/11/18 05:23: Prothrombin Time 29.3H, Prothromb Time International Ratio 2.79 11/11/18 05:38: Bedside Glucose (Misc Panel) 110 11/11/18 11:37: Bedside Glucose (Misc Panel) 88 PELON SCHRADER MD Nov 11, 2018 13:24
[2018-11-11 14:00] VITALS: BP 112/72
[2018-11-11] MEDS: WARFARIN SOD 3 MG TAB PO SCH (17:41)
[2018-11-11 22:00] VITALS: BP 108/65
[2018-11-12] MEDS: PANTOPRAZOLE 40MG TAB (PROTONIX) PO SCH (05:39)
[2018-11-12] MEDS: CYANOCOBALAMIN 500 MCG TAB PO SCH (05:39)
[2018-11-12] MEDS: ATORVASTATIN 20 MG TAB PO SCH (05:39)
[2018-11-12] MEDS: VITAMIN D 1,000 INTERNATIONAL UNITS TABLET PO SCH (05:39)
[2018-11-12] MEDS: GABAPENTIN 100 MG CAP PO SCH (05:39)
[2018-11-12] MEDS: ASPIRIN 81 MG CHEW TABLET PO SCH (05:40)
[2018-11-12] MEDS: EUCERIN 120GM CREAM TOP SCH ×2 (05:40→20:53)
[2018-11-12] MEDS: METOPROLOL TART 25 MG TABLET PO SCH ×2 (05:41→20:52)
[2018-11-12] MEDS: FLUTICASONE PROP 0.05% NASAL SPRAY 16 GM (FLONASE) SCH (05:43)
[2018-11-12] MEDS: CALCIUM ACETATE 667 MG/5 ML PO SCH (05:46)
[2018-11-12 06:00] VITALS: BP 100/74
[2018-11-12 07:06] LABS: HEMATOCRIT 36.6 % (42.0-52.0); HEMOGLOBIN 11.4 g/dl (13.5-17.5); MEAN CORPUSCULAR HEMOGLOBIN 31.8 pg (27.0-33.0); MEAN CORPUSCULAR HGB CONC 31.1 g/dl (32.0-36.5); MEAN CORPUSCULAR VOLUME 102.2 fl (80.0-96.0); PLATELET COUNT, AUTOMATED 133 10^3/uL (150-450); RED BLOOD COUNT 3.58 10^6/uL (4.30-6.10); WHITE BLOOD COUNT 7.4 10^3/uL (4.0-10.0)
[2018-11-12 07:15] LABS: INR 2.09; PROTHROMBIN TIME 23.3 SECONDS (11.8-14.0)
[2018-11-12] MEDS: HumaLOG INSULIN (NovoLOG) PER UNIT SC SCH ×4 (07:30→20:52)
[2018-11-12 07:34] LABS: CALCIUM LEVEL 8.2 MG/DL (8.8-10.2); CREATININE FOR GFR 7.78 MG/DL (0.70-1.30); GLOMERULAR FILTRATION RATE 8.9 (>42); POTASSIUM SERUM 4.7 MEQ/L (3.5-5.1)
[2018-11-12] MEDS: DIAPER RELIEF PASTE (DESITIN) 60GM TOP SCH (09:00)
--- NOTE | 2018-11-12 11:18 | IPNPDOC ---
Subjective Date Seen The patient was seen on 11/12/18. Subjective Chief Complaint/HPI Patient seen and examined at the bedside during dialysis. No acute overnight events noted. He continues to work with physical therapy for functional optimization. He was able to walk 75 feet with a rolling walker and contact- guard assistance yesterday. At this time, the patient denies any acute complaints. Objective Physical Examination General Exam: Positive: Alert, Cooperative, No Acute Distress ENT Exam: Positive: Atraumatic Chest Exam: Positive: Diminished; Negative: Rales, Rhonchi, Wheezing Heart Exam: Positive: Rate Normal, Normal S1, Normal S2 Abdomen Exam: Positive: Soft; Negative: Tenderness Extremity Exam: Positive: Other (left LE with transmetarsal amputation and ch ronic wound of dorsal aspect of calcaneus); Negative: Cyanosis Skin Exam: Positive: Breakdown (as noted above), Other skin issue (RUE with AV fistula site noted) Psych Exam: Positive: Mood NL Assessment /Plan Plan/VTE VTE Prophylaxis Ordered?: Yes Plan Dysfunctional R UE AV Fistula s/p Ligation and Creation of new R UE AV Fistula (11/03) Cont Dialysis via R IJ PermCath (Placed on 11/01) Vascular surgery on consultation; appreciate their input s/p Hypoxic Respiratory failure, requiring mechanical ventilation s/p Extubation on 11/06/2018; s/p BIPAP device A fib Cont metoprolol, Coumadin HTN Metoprolol with holding parameters Hypoalbuminemia Complicating care Neuropathy Gabapentin Chronic LLE wound c/w Wound care Follows with Dr. Weinberg as an outpatient DLP c/w Atorvastatin IDDM2 c/w ISS ELISSA on cpap may allow home CPAP while inpatient GI prophylaxis Protonix DVT prophylaxis On Coumadin Disposition: Pending functional optimization with PT/OT. VS, I&O, 24H, Fishbone Vital Signs/I&O Vital Signs Date Time Temp Pulse Resp B/P (MAP) Pulse Ox O2 Delivery O2 Flow Rate FiO2 11/12/18 06:00 97.6 86 20 100/74 (83) 94 11/07/18 08:10 21 I&O- Last 24 Hours up to 6 AM 11/12/18 06:00 Intake Total 720 ml Output Total 0 ml Balance 720 ml Laboratory Data 24H LABS Laboratory Tests 2 11/11/18 11:37: Bedside Glucose (Misc Panel) 88 11/11/18 16:34: Bedside Glucose (Misc Panel) 147H 11/11/18 19:45: Bedside Glucose (Misc Panel) 139H 11/12/18 05:20: Bedside Glucose (Misc Panel) 90 11/12/18 06:48: Nucleated Red Blood Cells % (auto) 0.0, Prothrombin Time 23.3H, Prothromb Time International Ratio 2.09, Anion Gap 10, Glomerular Filtration Rate 8.9L, Blood Urea Nitrogen 43H, Creatinine 7.78H, Sodium Level 140, Potassium Level 4.7, Chloride Level 102, Carbon Dioxide Level 28, Calcium Level 8.2L CBC/BMP Laboratory Tests 11/12/18 06:48 Red Blood Count 3.58 L, Mean Corpuscular Volume 102.2 H, Mean Corpuscular Hemoglobin 31.8, Mean Corpuscular Hemoglobin Concent 31.1 L, Red Cell Distribution Width 16.7 H, Calcium Level 8.2 L PELON SCHRADER MD Nov 12, 2018 11:18
[2018-11-12] MEDS ORDERED: HEPARIN 1,000 UNITS/ML 10ML VIAL (FOR RADIOLOGY& DIALYSIS ONLY) XX ONE (11:45)
[2018-11-12] MEDS ORDERED: HEPARIN 1,000 UNITS/ML 10ML VIAL (FOR RADIOLOGY& DIALYSIS ONLY) IV ONE (11:45)
[2018-11-12] MEDS ORDERED: VARIBAR PUDDING 40% w/v 230ML TUBE As Ordered ONE (12:33)
[2018-11-12] MEDS ORDERED: VARIBAR NECTAR 40% w/v 240ML SUSP BTL As Ordered ONE (12:33)
[2018-11-12] MEDS ORDERED: BARIUM SULFATE 700 MG TABLET (E-Z-DISK) As Ordered ONE (12:33)
[2018-11-12] MEDS ORDERED: E-Z-PAQUE 96% w/w SUSP 176GM BTL As Ordered ONE (12:33)
--- NOTE | 2018-11-12 12:48 | IPN ---
DATE OF SERVICE: 11/12/2018 SUBJECTIVE: Mr. Lobo is seen and examined on hemodialysis rounds this morning. He is currently being dialyzed. He is laying in bed and appears very sleepy. He does not participate too much in the physical examination questioning as he is very fatigued. He does, however, appear comfortable, he is in no acute distress. His intake has been documented at 660, unfortunately his weight had not been measured. PHYSICAL EXAMINATION: Vital signs: Temperature 97.6, pulse 77, respiratory rate 16, blood pressure 108/65, pulse oximetry 98%. GENERAL: This is a 73-year-old male who is laying in his bed receiving hemodialysis. He appears comfortable, but fatigued. He does not appear to be in distress. HEENT: Extraocular muscles intact, moist mucous membranes, no jugular venous distention (JVD) is appreciated. CARDIAC: Normal S1 and S2 with continued +2 systolic murmur. No extra murmurs are appreciated. RESPIRATORY: Diminished breath sounds throughout secondary to obese body habitus. No wheezing, rales, or rhonchi however. ABDOMEN: Obese, nontender to palpation, soft, normoactive bowel sounds times four, no masses or hepatosplenomegaly appreciated. No rebound, rigidity, or guarding. EXTREMITIES: No significant edema, cyanosis, or mottling. He has a dressing over his left lower extremity at the site of his past metatarsal amputations. Dressing is clean, dry, and intact. He does have a right upper extremity brachiocephalic fistula that is patent, mature, and is covered with a dressing that is clean, dry, and intact, there is a good thrill over this. He is being dialyzed through a right IJ perm catheter. NEUROLOGIC: No focal deficits appreciated, but he is very sleepy on examination today. LABORATORY DATA: WBC 7.4, hemoglobin and hematocrit 11.4 and 36.2, platelet count 133, sodium 140, potassium 4.7, chloride 102, bicarbonate is 28, BUN and creatinine 43 and 7.78 respectively. PROBLEMS: 1. End-stage renal disease. On hemodialysis Thursday, Thursday, and Thursday. He is currently being dialyzed this morning, goal of 1 to 2 liter of fluid removal. We are holding on albumin today and monitoring his blood pressure. His PermaCath on examination is noted to be in good use for hemodialysis. 2. Dysfunctional right brachiocephalic fistula. Status post ligation and creation of new right brachiocephalic fistula, vascular surgery following. He continues with dialysis via his right PermaCath which appears to be in good function. 3. Hypertension. Metoprolol has holding parameters, blood pressures continue to be soft, we will hold on albumin now and monitor blood pressures during dialysis. 4. Atrial fibrillation. INR this morning is noted to be therapeutic, Coumadin dosing is per primary team. 5. Anemia. Hemoglobin and hematocrit is stable today, secondary to chronic renal failure. Status post Aranesp. My faculty preceptor for this patient encounter was physically present during the encounter and was fully available. All aspects of the patient interview, examination, medical decision making process, and medical care plan development were reviewed and approved by the faculty preceptor. The faculty preceptor is aware and concurs with the plan as stated in the body of this note and will attest to such by his/her cosignature.
[2018-11-12 13:38] VITALS: BP 119/75
[2018-11-12] MEDS: CALCIUM ACETATE 667 MG GELCAP PO SCH ×2 (15:06→17:39)
--- NOTE | 2018-11-12 16:11 | NUR ---
Patient was referred for Modified Barium swallowing assessment due to chronic coughing throughout his bedside evaluation making differential diagnosis difficult. Swallow presented as adequate. Recommend: Continue mechanical solids (d/t poor dentition) and regular thin liquids. Meds given 1 at a time. Provide verbal reminders to slow down and take small bites during his meals. ST will follow up with education about safe eating behaviors. Line of sight supervision Addendum: 11/12/18 at 1611 by JOSEPHINE ENCARNACION [facility] Amended: Links added.
[2018-11-12] MEDS: WARFARIN SOD 3 MG TAB PO SCH (17:39)
[2018-11-12 18:00] VITALS: BP 115/75
[2018-11-12 22:00] VITALS: BP 102/64
[2018-11-13 06:00] VITALS: BP 111/59
[2018-11-13 06:56] LABS: HEMATOCRIT 35.7 % (42.0-52.0); HEMOGLOBIN 11.1 g/dl (13.5-17.5); MEAN CORPUSCULAR HEMOGLOBIN 32.7 pg (27.0-33.0); MEAN CORPUSCULAR HGB CONC 31.1 g/dl (32.0-36.5); MEAN CORPUSCULAR VOLUME 105.3 fl (80.0-96.0); PLATELET COUNT, AUTOMATED 131 10^3/uL (150-450); RED BLOOD COUNT 3.39 10^6/uL (4.30-6.10); WHITE BLOOD COUNT 6.7 10^3/uL (4.0-10.0)
[2018-11-13 07:04] LABS: INR 2.12; PROTHROMBIN TIME 23.5 SECONDS (11.8-14.0)
[2018-11-13 07:11] LABS: CALCIUM LEVEL 8.4 MG/DL (8.8-10.2); CREATININE FOR GFR 5.82 MG/DL (0.70-1.30); GLOMERULAR FILTRATION RATE 12.5 (>42); POTASSIUM SERUM 3.8 MEQ/L (3.5-5.1)
[2018-11-13] MEDS: HumaLOG INSULIN (NovoLOG) PER UNIT SC SCH ×4 (07:11→21:00)
[2018-11-13] MEDS: ASPIRIN 81 MG CHEW TABLET PO SCH (08:18)
[2018-11-13] MEDS: CALCIUM ACETATE 667 MG GELCAP PO SCH ×3 (08:18→17:10)
[2018-11-13] MEDS: ATORVASTATIN 20 MG TAB PO SCH (08:18)
[2018-11-13] MEDS: CYANOCOBALAMIN 500 MCG TAB PO SCH (08:19)
[2018-11-13] MEDS: EUCERIN 120GM CREAM TOP SCH ×2 (08:19→20:56)
[2018-11-13] MEDS: GABAPENTIN 100 MG CAP PO SCH (08:19)
[2018-11-13] MEDS: DIAPER RELIEF PASTE (DESITIN) 60GM TOP SCH (08:19)
[2018-11-13] MEDS: VITAMIN D 1,000 INTERNATIONAL UNITS TABLET PO SCH (08:19)
[2018-11-13] MEDS: PANTOPRAZOLE 40MG TAB (PROTONIX) PO SCH (08:19)
[2018-11-13] MEDS: FLUTICASONE PROP 0.05% NASAL SPRAY 16 GM (FLONASE) SCH (08:19)
[2018-11-13] MEDS: METOPROLOL TART 25 MG TABLET PO SCH ×2 (08:19→20:55)
[2018-11-13] MEDS: IPRATROPIUM 0.5MG/ALBUTEROL 2.5MG INH SOL UD 3ML (DUONEB)(J7620) NEB SCH ×3 (08:35→20:09)
--- NOTE | 2018-11-13 13:47 | IPNPDOC ---
Subjective Date Seen The patient was seen on 11/13/18. Subjective Chief Complaint/HPI Patient seen and examined at the bedside. No acute overnight events noted. Objective Physical Examination General Exam: Positive: Alert, Cooperative, No Acute Distress ENT Exam: Positive: Atraumatic Chest Exam: Positive: Diminished; Negative: Rales, Rhonchi, Wheezing Heart Exam: Positive: Rate Normal, Normal S1, Normal S2 Abdomen Exam: Positive: Soft; Negative: Tenderness Extremity Exam: Positive: Other (left LE with transmetarsal amputation and chronic wound of dorsal aspect of calcaneus); Negative: Cyanosis Skin Exam: Positive: Breakdown (as noted above), Other skin issue (RUE with AV fistula site noted) Psych Exam: Positive: Mood NL Assessment /Plan Plan/VTE VTE Prophylaxis Ordered?: Yes Plan Dysfunctional R UE AV Fistula s/p Ligation and Creation of new R UE AV Fistula (11/03) Cont Dialysis via R IJ PermCath (Placed on 11/01) Vascular surgery on consultation; appreciate their input s/p Hypoxic Respiratory failure, requiring mechanical ventilation s/p Extubation on 11/06/2018; s/p BIPAP device A fib Cont metoprolol, Coumadin HTN Metoprolol with holding parameters Hypoalbuminemia Complicating care Neuropathy Gabapentin Chronic LLE wound c/w Wound care Follows with Dr. Weinberg as an outpatient DLP c/w Atorvastatin IDDM2 c/w ISS ELISSA on cpap may allow home CPAP while inpatient GI prophylaxis Protonix DVT prophylaxis On Coumadin Disposition: Pending functional optimization with PT/OT. VS, I&O, 24H, Fishbone Vital Signs/I&O Vital Signs Date Time Temp Pulse Resp B/P (MAP) Pulse Ox O2 Delivery O2 Flow Rate FiO2 11/13/18 08:19 82 111/59 11/13/18 06:00 97.8 20 97 11/07/18 08:10 21 I&O- Last 24 Hours up to 6 AM 11/13/18 06:00 Intake Total 1570 ml Output Total 2450 ml Balance -880 ml Laboratory Data 24H LABS Laboratory Tests 2 11/12/18 20:02: Bedside Glucose (Misc Panel) 119H 11/13/18 06:31: Nucleated Red Blood Cells % (auto) 0.0, Prothrombin Time 23.5H, Prothromb Time International Ratio 2.12, Anion Gap 8, Glomerular Filtration Rate 12.5L, Blood Urea Nitrogen 33H, Creatinine 5.82H, Sodium Level 139, Potassium Level 3.8, C hloride Level 102, Carbon Dioxide Level 29, Calcium Level 8.4L 11/13/18 11:22: Bedside Glucose (Misc Panel) 163H CBC/BMP Laboratory Tests 11/13/18 06:31 Red Blood Count 3.39 L, Mean Corpuscular Volume 105.3 H, Mean Corpuscular Hemoglobin 32.7, Mean Corpuscular Hemoglobin Concent 31.1 L, Red Cell Distribution Width 16.7 H, Calcium Level 8.4 L PELON SCHRADER MD Nov 13, 2018 13:47
[2018-11-13 14:00] VITALS: BP 100/59
--- NOTE | 2018-11-13 15:01 | IPN ---
DATE: 11/13/2018 SUBJECTIVE The patient was seen and examined at the bedside today morning. He is afebrile, hemodynamically stable. He was dialyzed yesterday. He tolerated the hemodialysis procedure well. 2 liters of fluid was removed. He reports a persistent cough and he wants some medications to help with his cough. He still reports weakness and is getting physical therapy. OBJECTIVE Vital signs: Temperature is 97.8 degrees Fahrenheit. Blood pressure 111/59, pulse is 82, respiratory rate of 20, saturating 97% on room air. Intake and output. There is no urine output recorded. Ultrafiltration with hemodialysis was 2 liters. Weight in the bed scale is not available. PHYSICAL EXAMINATION General: The patient is awake, alert, oriented times three, sitting up in the bed, morbidly obese, no apparent distress. Head and neck examination: Right eye is blind. Pupils is round on the left eye. Mucous membranes are moist. Neck is supple. He has a right IJ tunneled hemodialysis catheter. Cardiovascular: S1, S2 regular rate, 1+ edema in the legs. Respiratory: Decreased breath sounds at the bases with mild expiratory rhonchi at the base. Abdomen: Soft, obese, positive bowel sounds. Nontender. No organomegaly. Musculoskeletal: No clubbing or cyanosis. Dressing in the left leg. HOOP CUTTER: The patient is awake, alert, oriented times three, right eye blindness as mentioned above. AV ACCESS: The patient has a right IJ tunneled hemodialysis catheter and right upper arm AV fistula with positive thrill and bruit. LAB REVIEW: CBC showed WBC of 6.7, hemoglobin 11.1, platelets of 131. BMP showed sodium 139, potassium 3.8, chloride 102, bicarb 29, BUN 33, creatinine is 5.8. IMAGING STUDIES The patient had the esophageal echogram done yesterday, official report is still pending. CURRENT INPATIENT MEDICATIONS: The patient's medications were all reviewed by me. There is no change in the medications today as compared with yesterday. ASSESSMENT/PLAN 1. End-stage renal disease on hemodialysis. The patient's regular dialysis days are Thursday, Thursday, Thursday. He was dialyzed yesterday according to his regular schedule. Next hemodialysis will be done on Thursday. 2. Anemia and end-stage renal disease, hemoglobin is 11.1 which is optimal. The patient is getting Aranesp 200 mcg with dialysis. 3. Cough. I have ordered a DuoNeb nebulizations every 6 hourly for 2 days. 4. Hypertension with end-stage renal disease. Continue metoprolol 25 mg by mouth twice a day, blood pressure is optimized. 5. Chronic atrial fibrillation. Heart rate is controlled. The patient is anticoagulated with warfarin. 6. Chronic kidney disease. Mineral bone disease. Continue current dose of PhosLo 1 capsule three times a day with meals. Continue Tums for indigestion and for phosphorus binding.
[2018-11-13] MEDS: WARFARIN SOD 3 MG TAB PO SCH (17:10)
[2018-11-13 22:00] VITALS: BP 115/64
[2018-11-13] MEDS: ALBUTEROL SULFATE 2.5 MG/0.5 ML INH NEB SOLN NEB PRN (23:19)
[2018-11-14] MEDS: IPRATROPIUM 0.5MG/ALBUTEROL 2.5MG INH SOL UD 3ML (DUONEB)(J7620) NEB SCH ×4 (02:00→20:06)
[2018-11-14 05:56] LABS: HEMATOCRIT 35.5 % (42.0-52.0); HEMOGLOBIN 11.2 g/dl (13.5-17.5); MEAN CORPUSCULAR HEMOGLOBIN 32.9 pg (27.0-33.0); MEAN CORPUSCULAR HGB CONC 31.5 g/dl (32.0-36.5); MEAN CORPUSCULAR VOLUME 104.4 fl (80.0-96.0); PLATELET COUNT, AUTOMATED 150 10^3/uL (150-450); WHITE BLOOD COUNT 6.5 10^3/uL (4.0-10.0)
[2018-11-14 06:00] VITALS: BP 120/69
[2018-11-14 06:05] LABS: INR 2.16; PROTHROMBIN TIME 23.9 SECONDS (11.8-14.0)
[2018-11-14 06:22] LABS: CALCIUM LEVEL 8.7 MG/DL (8.8-10.2); CREATININE FOR GFR 7.7 MG/DL (0.70-1.30); POTASSIUM SERUM 4.5 MEQ/L (3.5-5.1)
[2018-11-14] MEDS: HumaLOG INSULIN (NovoLOG) PER UNIT SC SCH ×4 (07:30→22:31)
[2018-11-14] MEDS: CALCIUM ACETATE 667 MG GELCAP PO SCH ×3 (08:22→18:03)
[2018-11-14] MEDS: ATORVASTATIN 20 MG TAB PO SCH (08:22)
[2018-11-14] MEDS: ASPIRIN 81 MG CHEW TABLET PO SCH (08:22)
[2018-11-14] MEDS: VITAMIN D 1,000 INTERNATIONAL UNITS TABLET PO SCH (08:22)
[2018-11-14] MEDS: CYANOCOBALAMIN 500 MCG TAB PO SCH (08:22)
[2018-11-14] MEDS: METOPROLOL TART 25 MG TABLET PO SCH ×2 (08:22→22:31)
[2018-11-14] MEDS: PANTOPRAZOLE 40MG TAB (PROTONIX) PO SCH (08:22)
[2018-11-14] MEDS: GABAPENTIN 100 MG CAP PO SCH (08:22)
[2018-11-14] MEDS: FLUTICASONE PROP 0.05% NASAL SPRAY 16 GM (FLONASE) SCH (08:23)
[2018-11-14] MEDS: DIAPER RELIEF PASTE (DESITIN) 60GM TOP SCH (08:23)
[2018-11-14] MEDS: EUCERIN 120GM CREAM TOP SCH ×2 (08:24→22:32)
--- NOTE | 2018-11-14 12:06 | IPNPDOC ---
Subjective Date Seen The patient was seen on 11/14/18. Subjective Chief Complaint/HPI Patient seen and examined at bedside. No acute overnight events noted. Objective Physical Examination General Exam: Positive: Alert, Cooperative, No Acute Distress ENT Exam: Positive: Atraumatic, Mucous membr. moist/pink Chest Exam: Positive: Diminished; Negative: Rales, Rhonchi, Wheezing Heart Exam: Positive: Rate Normal, Normal S1, Normal S2 Abdomen Exam: Positive: Soft; Negative: Tenderness Extremity Exam: Positive: Other (left LE with transmetarsal amputation and chronic wound of dorsal aspect of calcaneus); Negative: Cyanosis Skin Exam: Positive: Breakdown (as noted above), Other skin issue (RUE with AV fistula site noted) Psych Exam: Positive: Mood NL Assessment /Plan Plan/VTE VTE Prophylaxis Ordered?: Yes Plan Dysfunctional R UE AV Fistula s/p Ligation and Creation of new R UE AV Fistula (11/03) Cont Dialysis via R IJ PermCath (Placed on 11/01) Vascular surgery on consultation; appreciate their input s/p Hypoxic Respiratory failure, requiring mechanical ventilation s/p Extubation on 11/06/2018; s/p BIPAP device A fib Cont metoprolol, Coumadin HTN Metoprolol with holding parameters Hypoalbuminemia Complicating care Neuropathy Gabapentin Chronic LLE wound c/w Wound care Follows with Dr. Weinberg as an outpatient DLP c/w Atorvastatin IDDM2 c/w ISS ELISSA on cpap may allow home CPAP while inpatient GI prophylaxis Protonix DVT prophylaxis On Coumadin Disposition: Pending functional optimization with PT/OT. [facility] Vital Signs Date Time Temp Pulse Resp B/P (MAP) Pulse Ox O2 Delivery O2 Flow Rate FiO2 11/14/18 08:22 81 120/69 11/14/18 06:00 98.1 20 93 I&O- Last 24 Hours up to 6 AM 11/14/18 06:00 Intake Total 1540 ml Output Total 0 ml Balance 1540 ml Laboratory Data 24H LABS Laboratory Tests 2 11/13/18 16:36: Bedside Glucose (Misc Panel) 131H 11/13/18 20:48: Bedside Glucose (Misc Panel) 144H 11/14/18 05:24: Nucleated Red Blood Cells % (auto) 0.0, Prothrombin Time 23.9H, Prothromb Time International Ratio 2.16, Anion Gap 8, Glomerular Filtration Rate 9.0L, Blood Urea Nitrogen 44H, Creatinine 7.70H, Sodium Level 138, Potassium Level 4.5, Chloride Level 101, Carbon Dioxide Level 29, Calcium Level 8.7L CBC/BMP Laboratory Tests 11/14/18 05:24 Red Blood Count 3.40 L, Mean Corpuscular Volume 104.4 H, Mean Corpuscular Hemoglobin 32.9, Mean Corpuscular Hemoglobin Concent 31.5 L, Red Cell Distribution Width 16.7 H, Calcium Level 8.7 L PELON SCHRADER MD Nov 14, 2018 12:06
[2018-11-14 14:00] VITALS: BP 104/65
--- NOTE | 2018-11-14 15:13 | IPN ---
DATE: 11/14/2018 SUBJECTIVE The patient was seen and examined at the bedside today morning. He reports that his cough is slightly better today. He was started on DuoNeb nebulizations every 6 hourly. He otherwise denies any active complaints. He is afebrile and hemodynamically stable. His next dialysis is due tomorrow morning. OBJECTIVE Vital signs: Temperature is 98.1 degrees Fahrenheit, blood pressure 120/69, pulse is 81, respiratory rate of 20, saturating 93% on room air. Intake and output. There is no urine output recorded. Weight in the bed scale is not available. PHYSICAL EXAMINATION General: The patient is awake, alert, oriented times three, laying in bed, morbidly obese, no apparent distress. Head and neck examination: Head is normocephalic, atraumatic. He has right eye blindness. Mucous membranes are moist. Neck is supple. He has a right IJ tunneled hemodialysis catheter. Cardiovascular: S1, S2, regular rate. 1+ edema of the legs. Respiratory: Chest is clear to auscultation bilaterally. Bilateral equal air entry. No rales or rhonchi. Abdomen: Soft, obese, positive bowel sounds. Nontender. No organomegaly. Musculoskeletal: There is a left transmetatarsal amputation. There is dressing on the left leg. PROCESSOR INSPECTOR: No focal deficit. Power is 5/5 in bilateral upper extremities. AV access: A right IJ tunneled hemodialysis catheter and right upper arm AV fistula with thrill and bruit. LAB REVIEW: CBC showed a WBC 6.5, hemoglobin 11.2, platelets of 150. BMP showed sodium 138, potassium 4.5, chloride 11, bicarb 29, BUN 44, creatinine 7.7. CURRENT INPATIENT MEDICATIONS: The patient's medications were all reviewed by me. He was started on DuoNeb nebulizations yesterday and no other change in the medications today as compared with yesterday. ASSESSMENT/PLAN 1. End-stage renal disease on hemodialysis. Regular dialysis days are Thursday, Thursday, Thursday. He will be dialyzed tomorrow morning as per his regular schedule. 2. Anemia and end-stage renal disease. Continue current dose of Aranesp. Hemoglobin level is optimal. 3. Cough. Symptoms are significantly better with DuoNeb nebulizations. 4. Chronic atrial fibrillation (A-Fib). Heart rate is controlled. Continue warfarin anticoagulation.
[2018-11-14] MEDS: ACETAMINOPHEN TAB 650MG DOSE (2X325MG) PO PRN (18:03)
[2018-11-14] MEDS: WARFARIN SOD 3 MG TAB PO SCH (18:03)
[2018-11-14 22:00] VITALS: BP 117/73
[2018-11-15] MEDS: IPRATROPIUM 0.5MG/ALBUTEROL 2.5MG INH SOL UD 3ML (DUONEB)(J7620) NEB SCH ×2 (02:15→07:15)
[2018-11-15] MEDS: hydrOXYzine 25 MG TAB PO PRN ×2 (03:24→21:48)
[2018-11-15 06:00] VITALS: BP 111/73
[2018-11-15 06:18] LABS: HEMATOCRIT 32.8 % (42.0-52.0); HEMOGLOBIN 10.6 g/dl (13.5-17.5); MEAN CORPUSCULAR HEMOGLOBIN 32.3 pg (27.0-33.0); MEAN CORPUSCULAR HGB CONC 32.3 g/dl (32.0-36.5); PLATELET COUNT, AUTOMATED 162 10^3/uL (150-450); RED BLOOD COUNT 3.28 10^6/uL (4.30-6.10); WHITE BLOOD COUNT 6.5 10^3/uL (4.0-10.0)
[2018-11-15] MEDS: ASPIRIN 81 MG CHEW TABLET PO SCH (06:32)
[2018-11-15] MEDS: GABAPENTIN 100 MG CAP PO SCH (06:33)
[2018-11-15] MEDS: PANTOPRAZOLE 40MG TAB (PROTONIX) PO SCH (06:33)
[2018-11-15] MEDS: ATORVASTATIN 20 MG TAB PO SCH (06:33)
[2018-11-15] MEDS: METOPROLOL TART 25 MG TABLET PO SCH ×2 (06:33→21:48)
[2018-11-15] MEDS: CYANOCOBALAMIN 500 MCG TAB PO SCH (06:33)
[2018-11-15] MEDS: FLUTICASONE PROP 0.05% NASAL SPRAY 16 GM (FLONASE) SCH (06:34)
[2018-11-15] MEDS: VITAMIN D 1,000 INTERNATIONAL UNITS TABLET PO SCH (06:34)
[2018-11-15 06:48] LABS: CALCIUM LEVEL 8.4 MG/DL (8.8-10.2); CREATININE FOR GFR 9.27 MG/DL (0.70-1.30); GLOMERULAR FILTRATION RATE 7.3 (>42); POTASSIUM SERUM 4.6 MEQ/L (3.5-5.1)
[2018-11-15] MEDS: HumaLOG INSULIN (NovoLOG) PER UNIT SC SCH ×4 (07:30→21:00)
--- NOTE | 2018-11-15 07:47 | REP ---
Examination Requested: Cookie Swallow Reason For Exam: aspiration The procedure was performed by JONATHAN Pa, under the direct supervision of Dr. Allen. The procedure was performed with [Kathi Hwang /Letty Gamino /Stephania Hernandez] from speech pathology present. 5 ml aliquots of thin, pudding, hard food, soft food, and pill consistency barium was administered. No evidence of penetration or aspiration was observed throughout the course of the exam. The detailed report of this examination will be provided by speech pathology. 1.9 minutes of fluoroscopy time was utilized for this procedure. Reviewed by JONATHAN Hood 11/12/2018 03:44 P Electronically Signed by Pito Allen MD 11/15/2018 07:38 A
[2018-11-15] MEDS: CALCIUM ACETATE 667 MG GELCAP PO SCH ×3 (08:25→17:50)
[2018-11-15] MEDS ORDERED: DARBEPOETIN 100 MCG/0.5 ML *DIALYSIS* SYRINGE (J0882) IV SCH (10:00)
[2018-11-15] MEDS ORDERED: HEPARIN 1,000 UNITS/ML 10ML VIAL (FOR RADIOLOGY& DIALYSIS ONLY) XX ONE (12:30)
[2018-11-15] MEDS ORDERED: LIDOCAINE 1% SDV 5 ML VIAL SQ ONE (12:30)
[2018-11-15] MEDS ORDERED: HEPARIN 1,000 UNITS/ML 10ML VIAL (FOR RADIOLOGY& DIALYSIS ONLY) IV ONE (12:30)
--- NOTE | 2018-11-15 13:24 | IPNPDOC ---
Subjective Date Seen The patient was seen on 11/15/18. Subjective Chief Complaint/HPI Patient seen and examined at the bedside during dialysis this morning. Denies any acute complaints at this time. No overnight events noted. Objective Physical Examination General Exam: Positive: Alert, Cooperative, No Acute Distress ENT Exam: Positive: Atraumatic, Mucous membr. moist/pink Chest Exam: Positive: Diminished; Negative: Rales, Rhonchi, Wheezing Heart Exam: Positive: Rate Normal, Normal S1, Normal S2 Abdomen Exam: Positive: Soft; Negative: Tenderness Extremity Exam: Positive: Other (left LE with transmetarsal amputation and chronic wound of dorsal aspect of calcaneus); Negative: Cyanosis Skin Exam: Positive: Breakdown (as noted above), Other skin issue (RUE with AV fistula site noted) Psych Exam: Positive: Mood NL Assessment /Plan Plan/VTE VTE Prophylaxis Ordered?: Yes Plan Dysfunctional R UE AV Fistula s/p Ligation and Creation of new R UE AV Fistula (11/03) Cont Dialysis via R IJ PermCath (Placed on 11/01) Vascular surgery on consultation; appreciate their input s/p Hypoxic Respiratory failure, requiring mechanical ventilation s/p Extubation on 11/06/2018; s/p BIPAP device A fib Cont metoprolol, Coumadin HTN Metoprolol with holding parameters Hypoalbuminemia Complicating care Neuropathy Gabapentin Chronic LLE wound c/w Wound care Follows with Dr. Weinberg as an outpatient DLP c/w Atorvastatin IDDM2 c/w ISS ELISSA on cpap may allow home CPAP while inpatient GI prophylaxis Protonix DVT prophylaxis On Coumadin Disposition: Pending functional optimization with PT/OT. VS, I&O, 24H, Fishbone Vital Signs/I&O Vital Signs Date Time Temp Pulse Resp B/P (MAP) Pulse Ox O2 Delivery O2 Flow Rate FiO2 11/15/18 06:33 94 109/70 11/15/18 06:00 98.0 20 96 I&O- Last 24 Hours up to 6 AM 11/15/18 06:00 Intake Total 1892 ml Output Total 0 ml Balance 1892 ml Laboratory Data 24H LABS Laboratory Tests 2 11/14/18 16:30: Bedside Glucose (Misc Panel) 145H 11/14/18 20:23: Bedside Glucose (Misc Panel) 147H 11/15/18 05:25: Nucleated Red Blood Cells % (auto) 0.0, Anion Gap 10, Glomerular Filtration Rate 7.3L, Blood Urea Nitrogen 65H, Creatinine 9.27*H, Sodium Level 139, Potassium Level 4.6, Chloride Level 103, Carbon Dioxide Level 26, Calcium Level 8.4L 11/15/18 13:16: Bedside Glucose (Misc Panel) 128H CBC/BMP Laboratory Tests 11/15/18 05:25 Red Blood Count 3.28 L, Mean Corpuscular Volume 100.0 H, Mean Corpuscular Hemoglobin 32.3, Mean Corpuscular Hemoglobin Concent 32.3, Red Cell Distribution Width 16.3 H, Calcium Level 8.4 L PELON SCHRADER MD Nov 15, 2018 13:24
[2018-11-15] MEDS: DIAPER RELIEF PASTE (DESITIN) 60GM TOP SCH (13:55)
[2018-11-15] MEDS: EUCERIN 120GM CREAM TOP SCH ×2 (13:55→21:49)
[2018-11-15 14:00] VITALS: BP 105/56
[2018-11-15] MEDS: WARFARIN SOD 3 MG TAB PO SCH (16:30)
[2018-11-15] MEDS: ACETAMINOPHEN TAB 650MG DOSE (2X325MG) PO PRN (16:31)
--- NOTE | 2018-11-15 20:55 | IPN ---
DATE: 11/15/2018 SUBJECTIVE: Patient was seen and examined at the bedside today morning during hemodialysis procedure. He is tolerating the hemodialysis procedure well. He denies any active complaints. He reports that his cough is better today as compared with yesterday. OBJECTIVE VITAL SIGNS: Temperature is 97.8 degrees Fahrenheit, blood pressure 105/56, pulse is 94, respiratory rate of 20, saturating 87% on room air. INTAKE AND OUTPUT: There is no urine output recorded. Weight in the bed scale is not available. Ultrafiltration with hemodialysis is being done at this point. PHYSICAL EXAMINATION: GENERAL: Patient is awake, alert, oriented times three, morbidly obese, laying in bed in no apparent distress. HEAD AND NECK EXAM: The patient has right eye blindness. Mucous membranes are moist. Neck is supple. He has a right internal jugular (IJ) tunneled hemodialysis catheter which is being used for dialysis. CARDIOVASCULAR: S1, S2. Regular rate. 1+ edema of the legs and 1+ edema on the thighs. RESPIRATORY: Mildly decreased breath sounds at the bases, otherwise no active rales or rhonchi. ABDOMEN: Soft, obese, positive bowel sounds. Nontender. No organomegaly. MUSCULOSKELETAL: There is a left transmetatarsal amputation and that there is a dressing on the left leg. CENTRAL NERVOUS SYSTEM (MACHINE TOOL TECHNOLOGY INSTRUCTOR): No focal deficit. Power is 5/5 in bilateral upper extremities. ATRIOVENTRICULAR (AV) ACCESS: Right IJ tunneled hemodialysis catheter is being used. Right upper arm AV fistula has positive thrill and bruit as well. LABORATORY REVIEW: Complete blood count (CBC) showed a WBC 6.5, hemoglobin is 10.6, platelets of 162. Basic metabolic panel (BMP) showed sodium 139, potassium 4.6, chloride 103, bicarbonate 26, BUN 65, creatinine is 9.2. CURRENT INPATIENT MEDICATIONS: Patient's medications were all reviewed by me. DuoNeb nebulizations have been stopped. Aranesp dose of been decreased to 100 mcg intravenous (IV) with hemodialysis. No other change in the medications today as compared with yesterday. ASSESSMENT AND PLAN: 1. End-stage renal disease on hemodialysis. Patient is being dialyzed today according to his regular Thursday, Thursday, Thursday schedule. I will try to do at least 3 liters of ultrafiltration during dialysis as tolerated by his blood pressure. 2. Anemia in end-stage renal disease. The patient's Aranesp was on hold. Hemoglobin was more than 11. However, now hemoglobin is dropping down. I am starting him on low dose of Aranesp 100 mcg IV with dialysis. 3. Cough. Patient is symptomatically getting better. He could DuoNeb nebulizations. Volume status is being optimized with dialysis. 4. Chronic atrial fibrillation: Heart rate is controlled. Continue current dose of warfarin anticoagulation and metoprolol 25 mg by mouth twice a day.
[2018-11-15 22:00] VITALS: BP 123/75
[2018-11-16 06:00] VITALS: BP 115/60
[2018-11-16 06:14] LABS: HEMOGLOBIN 10.5 g/dl (13.5-17.5); MEAN CORPUSCULAR HEMOGLOBIN 31.3 pg (27.0-33.0); MEAN CORPUSCULAR HGB CONC 30.9 g/dl (32.0-36.5); MEAN CORPUSCULAR VOLUME 101.5 fl (80.0-96.0); PLATELET COUNT, AUTOMATED 141 10^3/uL (150-450); RED BLOOD COUNT 3.35 10^6/uL (4.30-6.10); WHITE BLOOD COUNT 5.6 10^3/uL (4.0-10.0)
[2018-11-16 06:37] LABS: CALCIUM LEVEL 8.7 MG/DL (8.8-10.2); CREATININE FOR GFR 6.79 MG/DL (0.70-1.30); GLOMERULAR FILTRATION RATE 10.4 (>42); POTASSIUM SERUM 4.2 MEQ/L (3.5-5.1)
[2018-11-16 08:08] LABS: INR 1.72
[2018-11-16] MEDS: HumaLOG INSULIN (NovoLOG) PER UNIT SC SCH ×2 (09:32→12:39)
[2018-11-16] MEDS: ASPIRIN 81 MG CHEW TABLET PO SCH (09:32)
[2018-11-16] MEDS: GABAPENTIN 100 MG CAP PO SCH (09:32)
[2018-11-16] MEDS: VITAMIN D 1,000 INTERNATIONAL UNITS TABLET PO SCH (09:32)
[2018-11-16] MEDS: PANTOPRAZOLE 40MG TAB (PROTONIX) PO SCH (09:33)
[2018-11-16] MEDS: CALCIUM ACETATE 667 MG GELCAP PO SCH ×2 (09:33→12:39)
[2018-11-16] MEDS: ATORVASTATIN 20 MG TAB PO SCH (09:33)
[2018-11-16] MEDS: CYANOCOBALAMIN 500 MCG TAB PO SCH (09:33)
[2018-11-16] MEDS: EUCERIN 120GM CREAM TOP SCH (09:35)
[2018-11-16] MEDS: FLUTICASONE PROP 0.05% NASAL SPRAY 16 GM (FLONASE) SCH (09:35)
[2018-11-16 09:36] VITALS: BP 128/91
[2018-11-16] MEDS: METOPROLOL TART 25 MG TABLET PO SCH (09:36)
--- NOTE | 2018-11-16 12:05 | DS.PDOC ---
Discharge Summary General Date of Admission Nov 01, 2018 at 12:36 Date of Discharge 11/16/2018 Discharge Summary PROCEDURES PERFORMED DURING STAY: 11/01/18: Ultrasound-guided access right internal jugular vein & Placement of a 23 cm PermCath right IJ with Dr. Mattson 11/03/18: Ligation right Pantera AV fistula & Right brachiocephalic AV fistula creation with Dr. Mattson ADMITTING DIAGNOSES / DISCHARGE DIAGNOSES: Dysfunctional R UE AV Fistula s/p Ligation and Creation of new R UE AV Fistula (11/03) s/p Hypoxic Respiratory failure, requiring mechanical ventilation A fib HTN Hypoalbuminemia Neuropathy Chronic LLE wound DLP IDDM2 LEISSA on cpap GI prophylaxis DVT prophylaxis COMPLICATIONS/CHIEF COMPLAINT: Malfunction / Bleeding of R arm AVF HISTORY OF PRESENT ILLNESS: Patient is a 73-year-old male with a PMHx of ESRD on HD (MWF), A. FIB on Coumadin, Tachy/Shane syndrome s/p pacemaker, HTN, DLP, IDDM2, ELISSA w/CPAP, Chronic wound LLE who presents to the ED after he experienced bleeding from his right arm AV fistula. Patient was admitted to the hospitalist service for further evaluation and treatment. Adriana surgeon was called on consultation and he had right IJ PermCath placement on 11/01/2018. Patient subsequently went for ligation of his right AV fistula and new right brachiocephalic AV fistula on 11/03/2018. After the procedure. Patient was unable to be extubated and was transferred to ICU for further management. Patient was successfully extubated on 11/06/2018. Patient was seen and examined at the bedside. Patient has no new complaints today and has cleared physical therapy. HOSPITAL COURSE: Dysfunctional R UE AV Fistula s/p Ligation and Creation of new R UE AV Fistula (11/03) - No further interventions planned at this time - c/w Dialysis via R IJ PermCath (Placed on 11/01) - Vascular surgery on consultation; appreciate their input - Has cleared PT / OT today s/p Hypoxic Respiratory failure, requiring mechanical ventilation - s/p Extubation on 11/06/2018; s/p BIPAP device - Dr. Curran was consulted; appreciate their input A fib - c/w rate control with metoprolol - INR sub-therapeutic; will resume Coumadin HTN - BP has been on lower limits of normal - c/w Metoprolol with holding parameters Hypoalbuminemia - Complicating care Neuropathy - c/w Gabapentin Chronic LLE wound - c/w Wound care - Follows with Dr. Weinberg as an outpatient DLP - c/w Atorvastatin IDDM2 - Levemir has been discontinued - c/w ISS ELISSA on cpap - s/p intubation and mechanical ventilation; s/p BIPAP - may allow home CPAP while inpatient GI prophylaxis - c/w Protonix DVT prophylaxis - INR sub-therapeutic; will resume Coumadin DISCHARGE MEDICATIONS: Please see below. ALLERGIES: Please see below. PHYSICAL EXAMINATION ON DISCHARGE: Vitals (See below) General: Lying in bed, no acute distress, comfortable, Awake / Alert HEENT: NC, AT CVS: +S1S2 Lungs: No appreciable wheezing, rhonchi or rales Abdomen: Morbid obesity, ND, NT Extremities: No edema appreciated, - Calf tenderness, L foot transmetatarsal amputation, Left calf wound - in dressing LABORATORY DATA: Please see below. ACTIVITY: [As tolerated]. DISCHARGE PLAN: Follow up with Dr. Alvarez and Dr. Mattson within 7 days Remain compliant with treatment plan and medications Return to the ER if you experience any problems DISPOSITION: Home with services DISCHARGE CONDITION: [Stable]. TIME SPENT ON DISCHARGE: 35 minutes Vital Signs/I&Os Vital Signs Date Time Temp Pulse Resp B/P (MAP) Pulse Ox O2 Delivery O2 Flow Rate FiO2 11/16/18 09:36 88 128/91 11/16/18 06:00 97.8 18 95 I&O- Last 24 Hours up to 6 AM 11/16/18 06:00 Intake Total 1550 ml Output Total 3000 ml Balance -1450 ml Laboratory Data Labs 24H Laboratory Tests 2 11/15/18 13:16: Bedside Glucose (Misc Panel) 128H 11/15/18 16:29: Bedside Glucose (Misc Panel) 173H 11/15/18 20:01: Bedside Glucose (Misc Panel) 148H 11/16/18 05:26: Nucleated Red Blood Cells % (auto) 0.0, Anion Gap 10, Glomerular Filtration Rate 10.4L, Blood Urea Nitrogen 40H, Creatinine 6.79H, Sodium Level 139, Potassium Level 4.2, Chloride Level 102, Carbon Dioxide Level 27, Calcium Level 8.7L 11/16/18 07:49: Prothrombin Time 20.0H, Prothromb Time International Ratio 1.72 11/16/18 11:10: Bedside Glucose (Misc Panel) 111H CBC/BMP Laboratory Tests 11/16/18 05:26 Red Blood Count 3.35 L, Mean Corpuscular Volume 101.5 H, Mean Corpuscular Hemoglobin 31.3, Mean Corpuscular Hemoglobin Concent 30.9 L, Red Cell Distribution Width 16.6 H, Calcium Level 8.7 L FSBS Laboratory Tests Test 11/15/18 13:16 11/15/18 16:29 11/15/18 20:01 11/16/18 11:10 Range/Units Bedside Glucose (Misc Panel) 128 173 148 111 83-110 MG/DL Discharge Medications Scheduled Aspirin (Aspirin EC) 81 Mg Tab, 81 MG PO DAILY, (Reported) Atorvastatin Calcium (Atorvastatin Calcium) 20 Mg Tab, 20 MG PO DAILY, (Reported) AT NOON Bacillus Coagulans (Bacid with Lactospore) 1 Cap Cap, 1 CAP PO BID, (Reported) Calcium Carbonate (Tums) 200 Mg Tab.chew, 500 MG PO QAM, (Reported) Cholecalciferol (Vitamin D3) (Vitamin D3) 1,000 Unit Tab, 1,000 UNITS PO DAILY, (Reported) Cyanocobalamin (Vitamin B-12) (Vitamin B-12) 500 Mcg Tab, 1,000 MCG PO DAILY, (Reported) Fluticasone Propionate (Flonase Allergy Relief) 9.9 Ml [place].susp, 2 SPRAY NA DAILY, (Reported) Gabapentin (Gabapentin) 100 Mg Cap, 100 MG PO DAILY, (Reported) AT NOON Insulin Aspart (Novolog Flexpen) 100 Unit/Ml Inj, 1 DOSE SC BID, (Reported) PER SLIDING SCALE WITH BREAKFAST AND DINNER Lidocaine/Prilocaine (Lidocaine-Prilocaine Cream) 2.5%/2.5% Cream..g., 1 APLCT TOP ASDIRECTED, (Reported) APPLY TO DIALYSIS ACCESS SITE ONE HOUR PRIOR TO DIALYSIS Metoprolol Tartrate (Metoprolol Tartrate) 25 Mg Tab, 25 MG PO BID, (Reported) Pantoprazole Sodium (Pantoprazole Sodium) 40 Mg Tablet.dr, 40 MG PO DAILY, (Reported) Sevelamer Carbonate (Sevelamer Carbonate) 800 Mg Tab, 800 MG PO BID, (Reported) WITH BREAKFAST AND DINNER Vit B Comp No.3/Folic/C/Biotin (Nephro-Martin Rx Tablet) 1 Tab Tab, 1 TAB PO DAILY, (Reported) Warfarin Sodium (Warfarin Sodium) 5 Mg Tablet, 5 MG PO 3XW, (Reported) THU/THU/THU Warfarin Sodium (Warfarin Sodium) 2 Mg Tablet, 4 MG PO 4XWK, (Reported) SUN///SAT Scheduled PRN Albuterol Sulfate (Ventolin Hfa) 108 Mcg/Act Aer, 2 PUFFS INH QID PRN for SHORTNESS OF BREATH, (Reported) Hydroxyzine HCl (Hydroxyzine HCl) 25 Mg Tablet, 25 MG PO BID PRN for ITCHING, (Reported) Nitroglycerin (Nitrostat) 0.4 Mg Subl, 0.4 MG SL NITRO PRN for ANGINA, (Reported) Allergies Coded Allergies: No Known Allergies (Verified , 03/03/17) SAKINA PALOMO MD Nov 16, 2018 12:05
--- NOTE | 2018-11-16 12:23 | IPN ---
DATE OF SERVICE: 11/16/2018 SUBJECTIVE: The patient was seen and examined at the bedside today morning. He was dialyzed yesterday, 3 liters of fluid was removed. He reports his cough and breathing is better today. He denies any active complaints. The patient reports that he is possibly going to be discharged tomorrow morning. OBJECTIVE: Vital signs: Temperature is 97.8 Fahrenheit, blood pressure 115/60, pulse is 82, respiratory of 18, saturating 95% on room air. Intake and output. There is no urine output recorded. Ultrafiltration with the dialysis of 3 liters yesterday. Weight in the bed scale is not available. PHYSICAL EXAMINATION: General: The patient is awake, alert, oriented times three, morbidly obese, laying in bed in no apparent distress. Head and neck exam: The patient has right eye blindness. Mucous membranes are moist. Neck: Is supple. Right IJ tunneled hemodialysis catheter was noted. Cardiovascular: S1, S2, regular rate. Trace edema of the bilateral lower extremities. Respiratory: Mildly decreased breath sounds at the bases, otherwise no active rales or rhonchi. Abdomen: Soft, obese, positive bowel sounds. Nontender. Musculoskeletal: Left metatarsal amputation and dressing on the left leg was noted. ETHYL BLENDER: No focal deficit apart from right eye blindness. Power is 5/5 in bilateral upper and lower extremities. AV axis right IJ tunneled hemodialysis catheter and right upper arm AV fistula. LAB REVIEW: CBC showed a WBC 5.6, hemoglobin 10.5, platelets of 141. BMP showed sodium 139, potassium 4.2, chloride 102, bicarb 27, BUN 40, creatinine is 6.7. CURRENT INPATIENT MEDICATIONS: The patient's medications were all reviewed by me. There is no change in the medications today as compared with yesterday. ASSESSMENT AND PLAN: 1. End-stage renal disease on hemodialysis. The patient's regular dialysis days are Thursday, Thursday, Thursday. He was dialyzed yesterday. Next hemodialysis will be tomorrow. If the patient gets discharged and I will try to arrange his dialysis as outpatient in dialysis center. 2. Anemia in end-stage renal disease. The patient's hemoglobin is within the normal range. He was given a dose of Aranesp 100 mcg IV yesterday. 3. Chronic kidney disease mineral bone disease. Continue current dose of PhosLo one capsule three times a day. Continue Tums as needed for indigestion. 4. Chronic atrial fibrillation. Continue current dose of warfarin and metoprolol. INR has been fluctuating closer to.
[2018-11-16 14:00] VITALS: BP 100/57
== END 2018-11-16 14:19 | disposition home or self-care (01) | DRG 264 ==
LOC: M ED 06:59 → EDBD 06:59 → M ED INP 12:36 → M MSPAV 14:15 → M ICU 11-03 16:52 → M MSPAV 11-08 17:40
PROVIDERS: ADMIT Internal Medicine Nephrology; ATTEND Internal Medicine
PROC: 02HV33Z Insertion of Infusion Device into Superior Vena Cava, Percutaneous Approach (ICD-10-PCS; 2018-11-01)
PROC: 0JH63XZ Insertion of Tunneled Vascular Access Device into Chest Subcutaneous Tissue and Fascia, Percutaneous Approach (ICD-10-PCS; 2018-11-01)
PROC: 5A1945Z Respiratory Ventilation, 24-96 Consecutive Hours (ICD-10-PCS; 2018-11-01)
PROC: 5A1D70Z Performance of Urinary Filtration, Intermittent, Less than 6 Hours Per Day (ICD-10-PCS; 2018-11-02)
PROC: 03170ZD Bypass Right Brachial Artery to Upper Arm Vein, Open Approach (ICD-10-PCS; principal; 2018-11-03 13:00)
PROC: 30233J1 Transfusion of Nonautologous Serum Albumin into Peripheral Vein, Percutaneous Approach (ICD-10-PCS; 2018-11-04)
DX: T82.838A Hemorrhage due to vascular prosthetic devices, implants and grafts, initial encounter (principal); N18.6 End stage renal disease; J95.821 Acute postprocedural respiratory failure; I12.0 Hypertensive chronic kidney disease with stage 5 chronic kidney disease or end stage renal disease; Z68.41 Body mass index [BMI] 40.0-44.9, adult; E11.22 Type 2 diabetes mellitus with diabetic chronic kidney disease; E78.5 Hyperlipidemia, unspecified; G47.33 Obstructive sleep apnea (adult) (pediatric); I48.2 Chronic atrial fibrillation; I71.2 Thoracic aortic aneurysm, without rupture; E66.01 Morbid (severe) obesity due to excess calories; E88.09 Other disorders of plasma-protein metabolism, not elsewhere classified; D63.1 Anemia in chronic kidney disease; H54.61 Unqualified visual loss, right eye, normal vision left eye; E11.40 Type 2 diabetes mellitus with diabetic neuropathy, unspecified; I95.3 Hypotension of hemodialysis; Y83.1 Surgical operation with implant of artificial internal device as the cause of abnormal reaction of the patient, or of later complication, without mention of misadventure at the time of the procedure; Z99.2 Dependence on renal dialysis; Z95.0 Presence of cardiac pacemaker; Z79.82 Long term (current) use of aspirin; Z79.4 Long term (current) use of insulin; Z79.01 Long term (current) use of anticoagulants; Z79.899 Other long term (current) drug therapy; Z87.891 Personal history of nicotine dependence; Z89.431 Acquired absence of right foot

== ENCOUNTER 2018-12-05 21:50 | Inpatient (IN) | payer MEDICARE, MEDICAID ==
[~2018-12-05] VITALS: Ht 188 cm; Wt 128.8 kg
[~2018-12-05 21:50] MED LIST changes: +CYAN100049; +CYAN500T8 PO; -FEBU40TA PO; +FEBU40TA4 PO; +TUMS500C PO; -VITA10002; -VITA500T3 PO; +WARF4TAB51 PO
[2018-12-05] MEDS ORDERED: NS 1,000 ML IV ONE (23:45)
[2018-12-05] MEDS ORDERED: PIPERACILLIN/TAZOBACTAM SOD 4.5 GM in D5W MINI-BAG PLUS 50 ML IV ONE (23:45)
[2018-12-05] MEDS ORDERED: VANCOMYCIN HCL 1,000 MG in IV FLUID PLACE HOLDER 1 EA IV ONE (23:45)
[2018-12-05] MEDS ORDERED: VANCOMYCIN HCL 1,000 MG, VIAL MATE ADAPTER 1 EACH in D5W 250 ML IV ONE (23:45)
[2018-12-06 00:24] LABS: BASO % 0.4 % (0.0-1.0); EOS # 0.3 10^3/uL (0.0-0.50); EOS % 2.7 % (0.0-3.0); HEMATOCRIT 35.9 % (42.0-52.0); HEMOGLOBIN 11.5 g/dl (13.5-17.5); LYMPH % 9.6 % (24.0-44.0); MEAN CORPUSCULAR HEMOGLOBIN 32.4 pg (27.0-33.0); MEAN CORPUSCULAR VOLUME 101.1 fl (80.0-96.0); MONO # 0.7 10^3/uL (0.0-0.8); MONO % 6.7 % (0.0-5.0); NEUTROPHILS # 8.4 10^3/uL (1.8-7.7); NEUTROPHILS % 79.7 % (36.0-66.0); PLATELET COUNT, AUTOMATED 114 10^3/uL (150-450); RED BLOOD COUNT 3.55 10^6/uL (4.30-6.10); WHITE BLOOD COUNT 10.5 10^3/uL (4.0-10.0)
[2018-12-06 00:45] LABS: ALBUMIN 3.3 GM/DL (3.2-5.2); BILIRUBIN,DIRECT 1.1 MG/DL (0.0-0.2); BILIRUBIN,TOTAL 1.6 MG/DL (0.2-1.0); CALCIUM LEVEL 8.2 MG/DL (8.8-10.2); CREATININE FOR GFR 8.97 MG/DL (0.70-1.30); GLOMERULAR FILTRATION RATE 7.6 (>42); POTASSIUM SERUM 4.2 MEQ/L (3.5-5.1); TOTAL PROTEIN 7.7 GM/DL (6.4-8.2)
[2018-12-06 00:47] LABS: ERYTHROCYTE SEDIMENTATION RATE 52 mm/hr (0-20)
[2018-12-06] MEDS ORDERED: IPRATROPIUM 0.5MG/ALBUTEROL 2.5MG INH SOL UD 3ML (DUONEB)(J7620) NEB ONE (01:30)
[2018-12-06] MEDS ORDERED: CALC500T61 PO (01:51)
[2018-12-06] MEDS ORDERED: WARF-20 PO (01:51)
[2018-12-06] MEDS ORDERED: COMMENT (01:53)
[2018-12-06] MEDS ORDERED: DEXTROSE 50% 50 ML SYRINGE IV PRN (02:30)
[2018-12-06] MEDS ORDERED: GLUCAGON FOR INJ 1 MG VIAL (J1610) SC PRN (02:30)
[2018-12-06] MEDS ORDERED: VANCOMYCIN HCL 500 MG in D5W MINI-BAG PLUS 100 ML IV ONE (02:30)
[2018-12-06] MEDS ORDERED: GLUCOSE 4 GM CHEW TABLET PO PRN (02:30)
[2018-12-06 02:40] LABS: INR 1.41
[2018-12-06] MEDS ORDERED: VANCOMYCIN HCL 1,000 MG, VIAL MATE ADAPTER 1 EACH in D5W 250 ML IV SCH (02:45)
--- NOTE | 2018-12-06 02:49 | PHACANCOPD ---
PHARMACY VANCOMYCIN DOSING Pt Demographics Demographics Patient Age:73 , Weight:130.000 , Gender: male Adjusted Body Weight Date: 12/06/18, Adjusted Body Weight: Kg Events Past 24 Hours Events Past 24 Hours: NO: Dialysis, Diuretic Therapy, Change in CrCl, Fever, Elevation in WBC, Pending Diagnostics, Pending Procedures, Other Vancomycin Vancomycin Target Ranges: 15-20 mcg/ml Vancomycin Load Y/N: Yes Load Dose Date Time Vancomycin Load Dose: 1500mg Date: 12-06 Time: 0300 Vancomycin Dose Date: 12/06/18. Current Vancomycin Dose: [vancomycin HD] Intermittent Dosing?: Yes Labs Labs Item Value Date Time White Blood Count 10.5 10^3/uL H 12/06/18 000 Creatinine 8.97 MG/DL *H 12/06/187 Blood Urea Nitrogen 69 MG/DL H 12/06/187 Glomerular Filtration Rate 7.6 L 12/06/187 Vital Signs Label Value Date Time Patient Temperature 97.8 degrees F 12/05/182158 Temperature Source Temporal 12/05/182158 Micro Microbiology 12/06/18 Blood Culture, Received Pending 12/06/18 Blood Culture, Received Pending 12/06/18 Abscess Culture, Received Pending Creatinine Clearance Date:12/06/18. Creatinine Clearance: [HD]. Pending Labs Random - in am Assessment and Plan Maintaining Current Dose?: Yes Reason for dose change: No Dose Change Pharmacist Note Pharmacist Note Date: 12/06/18. Pharmacist note:Will dose patient by levels on dialysis days. Will monitor and make adjustments as needed. KEN PEREIRA PHARMACY Dec 06, 2018 02:49
--- NOTE | 2018-12-06 02:49 | HPEPDOC ---
General Date of Admission Dec 06, 2018 at 02:19 Date of Service: Dec 06, 2018 Attending Physician: MARGARET GRABER MD Chief Complaint The patient is a 73-year-old male admitted with a reason for visit of Dialysis Av Fistula Infection. History of Present Illness Fails Irwin is a 73 year old male, H significant for ESRD on HD, with old right forearm fistula, presenting to the emergency room on account of bleeding from the old fistula which began 2 weeks ago. Initially bleeding was intermittent but in the last 30 minutes prior to presentation bleed in was constant. Patient states dressing was changed a week ago by vascular surgery In the emergency room, dressing to right fistula was taken off, ED attending reports there was purulent drainage and blood cultures were obtained. Chest x- ray was negative, EKG was unchanged, ESR was 52. He was started on Vanc and Zosyn due to increase in white blood count from patients baseline and purulent nature of drainage from fistula site. Patient denied any chills, fever, chest pain, worsening shortness of breath from baseline. Home Medications Scheduled Aspirin (Aspirin EC) 81 Mg Tab, 81 MG PO DAILY, (Reported) Atorvastatin Calcium (Atorvastatin Calcium) 20 Mg Tab, 20 MG PO DAILY, (Reported) AT NOON Bacillus Coagulans (Bacid with Lactospore) 1 Cap Cap, 1 CAP PO BID, (Reported) Calcium Carbonate (Calcium Carbonate) 500 Mg Tablet, 500 MG PO DAILY, (Reported) Cholecalciferol (Vitamin D3) (Vitamin D3) 1,000 Unit Tab, 1,000 UNITS PO DAILY, (Reported) Cyanocobalamin (Vitamin B-12) (Vitamin B-12) 500 Mcg Tab, 1,000 MCG PO DAILY, (Reported) Fluticasone Propionate (Flonase Allergy Relief) 9.9 Ml [place].susp, 2 SPRAY NA DAILY, (Reported) Gabapentin (Gabapentin) 100 Mg Cap, 100 MG PO DAILY, (Reported) AT NOON Insulin Aspart (Novolog Flexpen) 100 Unit/Ml Inj, 1 DOSE SC BID, (Reported) PER SLIDING SCALE WITH BREAKFAST AND DINNER Lidocaine/Prilocaine (Lidocaine-Prilocaine Cream) 2.5%/2.5% Cream..g., 1 APLCT TOP ASDIRECTED, (Reported) APPLY TO DIALYSIS ACCESS SITE ONE HOUR PRIOR TO DIALYSIS Metoprolol Tartrate (Metoprolol Tartrate) 25 Mg Tab, 25 MG PO BID, (Reported) Pantoprazole Sodium (Pantoprazole Sodium) 40 Mg Tablet.dr, 40 MG PO DAILY, (Reported) Sevelamer Carbonate (Sevelamer Carbonate) 800 Mg Tab, 800 MG PO BID, (Reported) WITH BREAKFAST AND DINNER Vit B Comp No.3/Folic/C/Biotin (Nephro-Martin Rx Tablet) 1 Tab Tab, 1 TAB PO DAILY, (Reported) Warfarin Sodium (Warfarin Sodium) 5 Mg Tablet, 5 MG PO 3XW, (Reported) THU/THU/THU Warfarin Sodium (Warfarin Sodium) 4 Mg Tablet, 4 MG PO 4XWK, (Reported) SUN//THURS/SAT Scheduled PRN Albuterol Sulfate (Ventolin Hfa) 108 Mcg/Act Aer, 2 PUFFS INH QID PRN for SHORTNESS OF BREATH, (Reported) Hydroxyzine HCl (Hydroxyzine HCl) 25 Mg Tablet, 25 MG PO BID PRN for ITCHING, (Reported) Nitroglycerin (Nitrostat) 0.4 Mg Subl, 0.4 MG SL NITRO PRN for ANGINA, (Reported) Miscellaneous Medications [Comment] , (Reported) PT HAS NOT HAD WARFARIN IN ABOUT A WEEK DUE TO BLEEDING Allergies Coded Allergies: No Known Allergies (Verified , 03/03/17) Past Medical History Medical History End-stage renal disease on hemodialysis Thursday, Thursday, Thursday Dyslipidemia. Hypertension. Obstructive sleep apnea on CPAP. Atrial fibrillation. Tachybradycardia syndrome Insulin-dependent diabetes mellitus Morbid obesity Surgical History Left foot amputation AV fistula placement. Permanent pacemaker placement. Hernia repair Family History Siblings: Hypertension Social History Denies alcohol, tobacco, polysubstance abuse. A-FIB/CHADSVASC A-FIB History Current/History of A-Fib/PAF?: Yes Current PO Anticoag Therapy: Yes Treatment Treatment ordered: Warfarin Review of Systems Other systems A 10 point pertinent review of systems was completed, negative except as stated in the history of presenting illness. Physical Examination Other physical findings GENERAL: Morbidly obese male, in NAD SKIN : Warm, pressure dressing present to right forearm dry/intact HEENT: Atraumatic, normocephalic, moist mucous membrane CARDIOVASCULAR: Irregular rate and rhythm, S1S2, no JVD, right upper extremity edema, distal pulses not palpable RESP: Diminished lung sounds no accessory muscle use noted ABDOMEN: BS+ non distended non tender MS: Left foot toes amputation NEURO: Alert and oriented x 3, CN2-12 grossly intact PSYCH: no anxiety or agitation, appropriate mood and affect. Vital Signs Vital Signs Date Time Temp Pulse Resp B/P (MAP) Pulse Ox O2 Delivery O2 Flow Rate FiO2 12/06/18 01:35 103 94 Room Air 12/05/18 21:59 97.8 12/05/18 21:57 23 133/82 Laboratory Data Labs 24H Laboratory Tests 2 12/06/18 00:08: Immature Granulocyte % (Auto) 0.9, White Blood Count 10.5H, Red Blood Count 3.55L, Hemoglobin 11.5L, Hematocrit 35.9L, Mean Corpuscular Volume 101.1H, Mean Corpuscular Hemoglobin 32.4, Mean Corpuscular Hemoglobin Concent 32.0, Red Cell Distribution Width 16.2H, Platelet Count 114L, Neutrophils (%) (Auto) 79.7H, Lymphocytes (%) (Auto) 9.6L, Monocytes (%) (Auto) 6.7H, Eosinophils (%) (Auto) 2.7, Basophils (%) (Auto) 0.4, Neutrophils # (Auto) 8.4H, Lymphocytes # (Auto) 1.0L, Monocytes # (Auto) 0.7, Eosinophils # (Auto) 0.3, Basophils # (Auto) 0.0, Nucleated Red Blood Cells % (auto) 0.0, Erythrocyte Sedimentation Rate 52H, Anion Gap 9, Glomerular Filtration Rate 7.6L, Lactic Acid Level 1.0, Calcium Level 8.2L, Aspartate Amino Transf (AST/SGOT) 14, Alanine Aminotransferase (ALT/SGPT) 13, Alkaline Phosphatase 184H, Total Bilirubin 1.6H, Direct Bilirubin 1.1H, C-Reactive Protein, Quantitative 14.00H, Total Protein 7.7, Albumin 3.3, Albumin/Globulin Ratio 0.75L 12/06/18 00:09: CBC/BMP Laboratory Tests 12/06/18 00:08 Red Blood Count 3.55 L, Mean Corpuscular Volume 101.1 H, Mean Corpuscular H emoglobin 32.4, Mean Corpuscular Hemoglobin Concent 32.0, Red Cell Distribution Width 16.2 H, Neutrophils (%) (Auto) 79.7 H, Lymphocytes (%) (Auto) 9.6 L, Monocytes (%) (Auto) 6.7 H, Eosinophils (%) (Auto) 2.7, Basophils (%) (Auto) 0.4, Neutrophils # (Auto) 8.4 H, Lymphocytes # (Auto) 1.0 L, Monocytes # (Auto) 0.7, Eosinophils # (Auto) 0.3, Basophils # (Auto) 0.0 Microbiology Microbiology 12/06/18 Blood Culture, Received Pending 12/06/18 Blood Culture, Received Pending 12/06/18 Abscess Culture, Received Pending Assessment/Plan Fistula bleed -Current INR unknown at this time -Check INR -Pressure dressing has been applied in the emergency room with control of bleed -Consult vascular surgery for evaluation and recommendations -If INR supratherapeutic. Hold warfarin -Antibiotic therapy for reported purulence, drainage on dressing. On admit -Follow blood culture report-. Discontinue antibiotics if negative Atrial fibrillation -Chronic, on anticoagulation therapy with warfarin -Rate control with metoprolol -Admit to monitored bed End-stage renal disease on hemodialysis -Mondays, Wednesdays, Fridays -Consult nephrology for hemodialysis management Insulin-dependent diabetes mellitus -Consistent calorie ADA 1800 daily -Finger stick checks prior to meals and at bedtime -Coverage with insulin per sliding scale protocol Obstructive sleep apnea -Patient may use his own home CPAP -Respiratory support with bronchodilators scheduled DVT prophylaxis -Currently on anticoagulation therapy with warfarin -INR pending Advanced care planning -CODE STATUS is full resuscitation -Anticipate discharge home after fistula is repaired and hemostasis achieved Plan / VTE VTE Prophylaxis Ordered?: Yes TING SONI Dec 06, 2018 02:49
[2018-12-06] MEDS: METOPROLOL TART 25 MG TABLET PO SCH ×3 (03:15→20:42)
[2018-12-06] MEDS: WARFARIN SOD 4 MG TAB PO SCH ×2 (03:23→20:40)
--- NOTE | 2018-12-06 07:14 | REP ---
Portable chest, 11:53 p.m., single AP view with the patient upright: Comparison is 11/09/2018. There is marked cardiomegaly, unchanged. There is pulmonary vascular engorgement, unchanged. There are no focal infiltrates or pleural effusions. There is a pacemaker entering from left, unchanged. There is a dual-chamber central venous catheter entering from right with the tip in the right atrium in satisfactory position, unchanged. Impression: There is no interval change. Electronically Signed by Sam Luis MD 12/06/2018 07:04 A
--- NOTE | 2018-12-06 07:22 | ECGEPIP ---
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
[2018-12-06] MEDS: IPRATROPIUM 0.5MG/ALBUTEROL 2.5MG INH SOL UD 3ML (DUONEB)(J7620) NEB SCH ×4 (07:48→21:40)
[2018-12-06] MEDS: PIPERACILLIN/TAZOBACTAM SOD 2.25 GM in D5W MINI-BAG PLUS 50 ML IV SCH ×3 (08:17→23:22)
[2018-12-06] MEDS: OYSTER SHELL CALCIUM 500 MG TAB PO SCH (08:17)
[2018-12-06] MEDS: HumaLOG INSULIN (NovoLOG) PER UNIT SC SCH ×4 (08:18→20:39)
[2018-12-06] MEDS ORDERED: PIPERACILLIN/TAZOBACTAM SOD 3.375 GM in D5W MINI-BAG PLUS 50 ML IV SCH (09:00)
[2018-12-06] MEDS: NEPHRO-VIT TAB (NEPHROCAPS) PO SCH (09:00)
--- NOTE | 2018-12-06 10:50 | IPN ---
DATE: 12/06/2018 PRIMARY CARE PHYSICIAN: Dr. Charisma Self at [facility] Irwin was admitted to the hospitalist service with infected bleeding right forearm dialysis fistula. This began bleeding a few weeks ago. He was seen by Dr. Benjamin who attempted a ligation procedure. Bleeding has persisted. He has developed purulent drainage and an abscess in this area. He was admitted for antibiotic therapy. Dr. Kath Mattson from interventional radiology was seeing the patient in the ER interim bed when I went to round on him and she has been very helpful and is planning to take him to the operating room today to try to revise the bleeding area and wash out the abscess. The patient's past history includes type 2 diabetes, hyperlipidemia, diabetic neuropathy, hypertensive heart disease, atrial fibrillation on chronic anticoagulant therapy with warfarin, obstructive sleep apnea (ELISSA) on CPAP, morbid obesity, history of tachybrady syndrome with pacemaker. Surgical history of left foot amputation, AV fistula placement, permanent pacemaker, and hernia repair. On physical exam, he is resting comfortably in the exam room. Alert and oriented. He has been afebrile. 110/67. General Appearance: Morbidly obese, lying in bed, speaking in full sentences. He has clouding of the right cornea, left pupil is reactive. No jugular venous distention (JVD). Lungs with decreased breath sounds, clear. Heart: Regular rhythm. No murmur. Abdomen: Obese. Nontender. No masses. Trace peripheral edema. His right forearm is dressed. The proximal AV fistula has a palpable thrill. Labs: No labs done for this morning. They are ordered for tomorrow morning. IMPRESSION: 1. Infected bleeding dialysis graft. Appreciated Dr. Mattson's help with this case. She plans to take the patient to the OR today. She indicates that it is okay to keep the patient on a therapeutic dose of warfarin and we will continue this. She agrees with the current antibiotic regimen. Once cultures are back, antibiotic therapy can be more tailored to a more narrow spectrum. 2. End stage renal disease. I communicated with Dr. Rodriguez of nephrology and he is aware of the patient. Today is his dialysis day. 3. Hyperlipidemia. Continue atorvastatin. 4. Hypertension. Well controlled on current regimen. 5. Diabetes. Sliding scale of insulin with coverage. 6. Atrial fibrillation. Continue with warfarin. Daily INR has been ordered.
--- NOTE | 2018-12-06 11:45 | CR.PDOC ---
General Date of Consultation: Dec 06, 2018 Consultation REASON FOR CONSULTATION/CHIEF COMPLAINT: Superficial bleeding around chronic ulcer right upper extremity and abscess right upper extremity. HISTORY OF PRESENT ILLNESS: Mr. nelson is a very pleasant 73-year-old gentleman with end-stage renal disease on hemodialysis currently dialyzing with a PermCath. He had a ligation of the proximal and distal aspect of his right radiocephalic AV fistula due to chronic bleeding (patient is on Coumadin anticoagulation) from an ulcer over the cephalic vein. Dr. Benjamin had attempted to revise the fistula several times, but the patient Coming back with dramatic episodes of bleeding due to erosion over the vein and anticoagulation. Therefore, we proximalized his cephalic vein fistula to the brachial artery, and did a proximal and distal ligation of the cephalic vein in the forearm. He is still having intermittent oozing from the skin erosion of the chronic ulcer, and this provides a nuisance of bleeding. It is not life-threatening like the bleeds were before, but it is very bothersome to him. Additionally, now the patient also has a forearm ulcer which is open and drained on my inspection today. It will need a formal washout, debridement of some of the nonviable skin over and around the cavity edge, and at the same time I like to do a formal excisional debridement of the chronic ulcer as well. Perhaps they can find small feeding vessels near the ulcer that are causing his consistent bleeding in either suture ligated this or Bovie them. I discussed this at length with the patient, including risks benefits and alternatives, and he is agreeable to proceed. We will add him on for this afternoon. He will need to be nothing by mouth. Ac cording to the OR, they are not sure when the case will proceed. It may be late. I discussed with the patient that he is a tough case due to obesity, poor nutrition, diabetes, and that healing his arm is going to be a challenge. Ideally, we would like to perform some topical dressing changes for a few days and then convert him to a wound VAC, but I am not sure he could handle a balloon back home, nor by sure that it would work out for him to have home health nurses manage his wound VAC with his Thursday dialysis schedule. We will have to work on this during the admission. The patient has family help him with dressing changes, but they're understanding of wound care is limited and this may be more than what they feel comfortable handling. Another option is to have him follow up at the wound care center, but I think this would also be challenging due to his Thursday dialysis schedule. ALLERGIES: Please see below. HOME MEDICATIONS: Please see below. PAST MEDICAL HISTORY: 1. End-stage renal disease on hemodialysis. 2. Hyperlipidemia 3. Neuropathy 4. Diabetes 5. Obesity 6. Hypertension 7. Coronary artery disease 8. Gastroesophageal reflux 9. Atrial fibrillation 10. Sleep apnea PAST SURGICAL HISTORY: 1. Right radiocephalic AV fistula creation and multiple revisions 2. Ligation right radiocephalic AV fistula in creation of new right brachial cephalic AV fistula 3. Hernia repair 4. Podiatry procedures FAMILY HISTORY: Diabetes, heart disease, cancer SOCIAL HISTORY: Patient denies tobacco alcohol or illicit drug use REVIEW OF SYSTEMS: CONSTITUTIONAL: Denies fevers chills. Positive fatigue. HEENT: Positive chronic vision changes, denies hearing loss. CARDIOVASCULAR: Denies chest pain. Positive palpitations. RESPIRATORY: Positive cough. Positive shortness of breath on exertion. GENITOURINARY: Positive end-stage renal disease. MUSCULOSKELETAL: Denies claudication. Positive right upper extremity abscess and chronic wound. GASTROINTESTINAL: Denies nausea vomiting diarrhea. SKIN: Positive abscess and chronic wound right upper extremity. NEUROLOGICAL: Denies headache, seizures. PSYCHIATRIC: Denies anxiety or depression. ENDOCRINE: Positive diabetes. HEMATOLOGIC/LYMPHATIC: Positive easy bruising and chronic anticoagulation. ALLERGIC/IMMUNOLOGIC: Denies. PHYSICAL EXAMINATION: VITAL SIGNS: Please see below. GENERAL APPEARANCE: Patient appears medically stable, obese, somewhat poorly kempt. HEENT: Vision is at baseline. TMI. Poor dentition. Speech is very difficult to understand, this is his baseline. RESPIRATORY: Slightly coarse breath sounds bilaterally. CARDIOVASCULAR: Irregular rate and rhythm. ABDOMEN: Soft obese nontender and nondistended. EXTREMITIES: Right upper extremity mid forearm has small abscess cavity, purulence evacuated, loose skin over the top, some of the skin nonviable. The chronic ulcer proximal to this has dark eschar with surrounding soft tissue chronic ulceration and minimal bleeding from the superficial dermal and skin layer. NEUROLOGICAL: Alert and oriented 3. No acute distress. Moves all extremities equally. PSYCHIATRIC: Pleasant and cooperative. LABORATORY DATA: Please see below. ASSESSMENT/PLAN: Very pleasant 73-year-old gentleman with end-stage renal disease on hemodialysis, history of ligation radiocephalic AV fistula due to chronic ulceration and bleeds with Coumadin therapy, now with superficial skin bleeding around this chronic ulcer as well as an abscess near the surgical incision from ligation of his AV fistula. 1. We will plan to go to the OR today for a washout of the abscess cavity, excisional debridement of any nonviable tissue, and excisional debridement of the chronic ulcer. Hopefully we will be able to do something to give him a little better hemostasis. Unfortunately, with the patient's need for anticoagulation, some bleeding from his open wounds would be expected. It is not the kind of life-threatening bleeding he had when the fistula was patent. Agree with antibiotics. We will take additional cultures in the OR. 2. I spoke with dialysis and they're planning to dialyze him this morning since his case will not go till later this afternoon or evening. The patient should remain nothing by mouth. 3. At discharge, we are hoping the patient may be able to qualify for wound VAC therapy to help with healing. I think if he has dressing changes alone, the chance of healing is low. He does not have good nutrition, he has diabetes, his hygiene is not optimal, and he has had a great deal of difficulty healing thus far. I think a wound VAC might give him a little better chance of getting his arm to heal. Vital Signs/I&O Vital Signs Date Time Temp Pulse Resp B/P (MAP) Pulse Ox O2 Delivery O2 Flow Rate FiO2 12/06/18 10:00 110/67 (81) 12/06/18 09:15 98 12/06/18 08:45 72 Room Air 12/06/18 06:47 18 12/06/18 03:14 99.6 I&O- Last 24 Hours up to 6 AM 12/06/18 06:00 Intake Total 530 ml Balance 530 ml Laboratory Data Labs 24H Laboratory Tests 2 12/06/18 00:08: Immature Granulocyte % (Auto) 0.9, White Blood Count 10.5H, Red Blood Count 3.55L, Hemoglobin 11.5L, Hematocrit 35.9L, Mean Corpuscular Volume 101.1H, Mean Corpuscular Hemoglobin 32.4, Mean Corpuscular Hemoglobin Concent 32.0, Red Cell Distribution Width 16.2H, Platelet Count 114L, Neutrophils (%) (Auto) 79.7H, Lymphocytes (%) (Auto) 9.6L, Monocytes (%) (Auto) 6.7H, Eosinophils (%) (Auto) 2.7, Basophils (%) (Auto) 0.4, Neutrophils # (Auto) 8.4H, Lymphocytes # (Auto) 1.0L, Monocytes # (Auto) 0.7, Eosinophils # (Auto) 0.3, Basophils # (Auto) 0.0, Nucleated Red Blood Cells % (auto) 0.0, Erythrocyte Sedimentation Rate 52H, Anion Gap 9, Glomerular Filtration Rate 7.6L, Lactic Acid Level 1.0, Calcium Level 8.2L, Aspartate Amino Transf (AST/SGOT) 14, Alanine Aminotransferase (ALT/SGPT) 13, Alkaline Phosphatase 184H, Total Bilirubin 1.6H, Direct Bilirubin 1.1H, C-Reactive Protein, Quantitative 14.00H, Total Protein 7.7, Albumin 3.3, Albumin/Globulin Ratio 0.75L 12/06/18 00:09: Prothrombin Time 17.0H, Prothromb Time International Ratio 1.41 CBC/BMP Laboratory Tests 12/06/18 00:08 Red Blood Count 3.55 L, Mean Corpuscular Volume 101.1 H, Mean Corpuscular Hemoglobin 32.4, Mean Corpuscular Hemoglobin Concent 32.0, Red Cell Distribution Width 16.2 H, Neutrophils (%) (Auto) 79.7 H, Lymphocytes (%) (Auto) 9.6 L, Monocytes (%) (Auto) 6.7 H, Eosinophils (%) (Auto) 2.7, Basophils (%) (Auto) 0.4, Neutrophils # (Auto) 8.4 H, Lymphocytes # (Auto) 1.0 L, Monocytes # (Auto) 0.7, Eosinophils # (Auto) 0.3, Basophils # (Auto) 0.0 Microbiology Microbiology 12/06/18 Blood Culture, Received Pending 12/06/18 Blood Culture, Received Pending 12/06/18 Abscess Culture, Received Pending Allergies Coded Allergies: No Known Allergies (Verified , 03/03/17) Home Medications Scheduled Aspirin (Aspirin EC) 81 Mg Tab, 81 MG PO DAILY, (Reported) Atorvastatin Calcium (Atorvastatin Calcium) 20 Mg Tab, 20 MG PO DAILY, (Reported) AT NOON Bacillus Coagulans (Bacid with Lactospore) 1 Cap Cap, 1 CAP PO BID, (Reported) Calcium Carbonate (Calcium Carbonate) 500 Mg Tablet, 500 MG PO DAILY, (Reported) Cholecalciferol (Vitamin D3) (Vitamin D3) 1,000 Unit Tab, 1,000 UNITS PO DAILY, (Reported) Cyanocobalamin (Vitamin B-12) (Vitamin B-12) 500 Mcg Tab, 1,000 MCG PO DAILY, (Reported) Fluticasone Propionate (Flonase Allergy Relief) 9.9 Ml Blanch.susp, 2 SPRAY NA DAILY, (Reported) Gabapentin (Gabapentin) 100 Mg Cap, 100 MG PO DAILY, (Reported) AT NOON Insulin Aspart (Novolog Flexpen) 100 Unit/Ml Inj, 1 DOSE SC BID, (Reported) PER SLIDING SCALE WITH BREAKFAST AND DINNER Lidocaine/Prilocaine (Lidocaine-Prilocaine Cream) 2.5%/2.5% Cream..g., 1 APLCT TOP ASDIRECTED, (Reported) APPLY TO DIALYSIS ACCESS SITE ONE HOUR PRIOR TO DIALYSIS Metoprolol Tartrate (Metoprolol Tartrate) 25 Mg Tab, 25 MG PO BID, (Reported) Pantoprazole Sodium (Pantoprazole Sodium) 40 Mg Tablet.dr, 40 MG PO DAILY, (Reported) Sevelamer Carbonate (Sevelamer Carbonate) 800 Mg Tab, 800 MG PO BID, (Reported) WITH BREAKFAST AND DINNER Vit B Comp No.3/Folic/C/Biotin (Nephro-Martin Rx Tablet) 1 Tab Tab, 1 TAB PO DAILY, (Reported) Warfarin Sodium (Warfarin Sodium) 5 Mg Tablet, 5 MG PO 3XW, (Reported) THU/THU/FRI Warfarin Sodium (Warfarin Sodium) 4 Mg Tablet, 4 MG PO 4XWK, (Reported) SUN/TU/THURS/SAT Scheduled PRN Albuterol Sulfate (Ventolin Hfa) 108 Mcg/Act Aer, 2 PUFFS INH QID PRN for SHORTNESS OF BREATH, (Reported) Hydroxyzine HCl (Hydroxyzine HCl) 25 Mg Tablet, 25 MG PO BID PRN for ITCHING, (Reported) Nitroglycerin (Nitrostat) 0.4 Mg Subl, 0.4 MG SL NITRO PRN for ANGINA, (Reported) Miscellaneous Medications [Comment] , (Reported) PT HAS NOT HAD WARFARIN IN ABOUT A WEEK DUE TO BLEEDING NOAH KAM MD Dec 06, 2018 11:45
[2018-12-06] MEDS: ATORVASTATIN 20 MG TAB PO SCH (11:55)
[2018-12-06] MEDS: GABAPENTIN 100 MG CAP PO SCH (11:55)
[2018-12-06] MEDS ORDERED: HEPARIN 1,000 UNITS/ML 10ML VIAL (FOR RADIOLOGY& DIALYSIS ONLY) XX ONE (12:00)
[2018-12-06] MEDS ORDERED: HEPARIN 1,000 UNITS/ML 10ML VIAL (FOR RADIOLOGY& DIALYSIS ONLY) IV ONE (12:00)
[2018-12-06] MEDS ORDERED: **VANCO AFTER HD** MISC XX SCH (16:00)
[2018-12-06 16:20] VITALS: BP 145/71
[2018-12-06] MEDS ORDERED: LIDOCAINE 2% INJ 100 MG/5 ML SDV (FOR ANES.) As Ordered ONE (17:31)
[2018-12-06] MEDS ORDERED: PROPOFOL 200 MG/20 ML VIAL As Ordered ONE (17:32)
[2018-12-06] MEDS ORDERED: MIDAZOLAM INJ 2 MG/2 ML VIAL (J2250) As Ordered ONE (17:32)
[2018-12-06] MEDS ORDERED: fentaNYL 100 MCG/2 ML INJECTION (J3010) As Ordered ONE (17:32)
[2018-12-06] MEDS ORDERED: VANCOMYCIN 1000 MG/20 ML VIAL (J3370) As Ordered ONE ×2 (18:07→18:08)
[2018-12-06] MEDS ORDERED: BUPIVACAINE/EPIN 0.5% 30 ML VIAL As Ordered ONE (18:07)
[2018-12-06] MEDS: DAKIN'S 0.25% HALF-STRENGTH SOLN 480 ML EXT ONE ×2 (18:42→19:16)
--- NOTE | 2018-12-06 19:51 | ROOPDOC ---
[facility] Report Of Operation Report of Operation DATE OF PROCEDURE: 12/06/18 PREPROCEDURE DIAGNOSES: 1. Right upper extremity chronic ulcer 2. Right upper extremity abscess POSTPROCEDURE DIAGNOSES: Same. PROCEDURE: 1. Excisional debridement right upper extremity chronic ulcer, 10 cm debrided of skin, subcutaneous tissue. 2. Excisional debridement right upper extremity abscess cavity, 14 cm debrided of skin, subcutaneous tissue. 3. Ligation of proximal superficial veins 2 SURGEON: Noah Mattson MD ANESTHESIA: Mac and 10 mL local anesthesia INDICATION FOR PROCEDURE: Mr. nelson is a very pleasant 73-year-old gentleman with end-stage renal disease on hemodialysis. He had been dialyzing through a right Pantera fistula, but developed a chronic ulcer over the cephalic vein in the forearm. He underwent multiple procedures and revisions with Dr. Benjaimn, but continued to have significant bleeding from the ulcer, sometimes substantial blood loss, due to his chronic anticoagulation for atrial fibrillation. Therefore, about a month or 2 ago, we proximally and distally ligated the cephalic vein in the forearm and created a new brachiocephalic AV fistula in the upper arm. This fistula is still maturing and the patient is currently dialyzing with a right PermCath. He was able to heal his incisions from his fistula creation and fistula ligation, but he did not heal the ulceration despite ligating the vein. He also developed an abscess just distal to the ulcer, and presented to the ER with concerns about both areas. Upon my evaluation, I discussed with the patient the risks benefits and alternatives to washout and excisional debridement. He is agreeable to proceed. Informed consent was obtained. FINDINGS: The abscess cavity was distal to the chronic ulcer, but both wounds once debrided, connected through a 3 cm tunnel. The proximal ulcer also tunneled 4 cm towards the antecubital crease. The distal abscess tunneled 2 cm distally towards the hand also. The final measurements of the proximal wound were 4 cm x 2.5 cm x 1.5 cm length with the depth respectively. The final measurements of the distal abscess wound were 4 cm x 3.5 cm x 2 cm length with the depth respectively. PROCEDURE: The patient was brought to the OR in stable condition and placed supine in your table. Antibiotics and monitored sedation were administered by anesthesia without complication. His right upper extremity was prepped and draped in a sterile fashion. A timeout was performed. Local anesthesia was administered the skin and subcutaneous tissue around the abscess cavity and the ulceration. Sharp dissection was used to excise the ulcer and a fairly deep cavity was noted below this. We also excised the nonviable skin over the abscess cavity, and a large cavity was noted below this as well. It was easy to ascertain that the 2 cavities were connected by a tunnel, and that the tunnel also extended more proximally and more distally. A culture was taken from the tunnel. I suspect that due to the patient's history of repeated chronic bleeding, he developed a large chronic soft tissue hematoma that recently may have become infected. I noted that there was some steady venous oozing coming from the proximal aspect of the tunnel, proximal to the ulcer. Pressure on the skin just distal to the antecubital crease stopped this steady flow of venous oozing. Local anesthesia was administered to the skin and subcutaneous this area and a transverse small counterincision was made to ascertain the cause of the bleeding. 2 superficial veins were identified and were suture ligated and divided. After this, there was no longer significant blood arising from the proximal aspect of the tunnel. This incision was copiously irrigated with saline, the deep tissues were approximated with interrupted Vicryl sutures, the deep dermal layer was approximated with interrupted Vicryl sutures, the skin was closed with a running subcuticular M onocryl suture. A curette was used to clean all old hematoma, clot, fibrinous exudate, and nonviable tissue from the tunnels in the abscess cavity and the base of the ulcer. Bovie cautery was used for hemostasis. The patient did have some diffuse soft tissue oozing due to his anticoagulation, but it was not significant. We then packed the tunnels in the cavities with Dakin's damp to dry dressings and kerlix. An Jose wrap was placed from the hand to the elbow to provide some compression and help with hemostasis. The patient will definitely need this dressing changed regularly to prevent infection. He has a history of picking at his wounds, and thus Jose wrap covering will be important to help prevent reinfection and help with hemostasis and swelling. Unfortunately, with his anticoagulation, his diabetes, his obesity, his poor nutrition, his end- stage renal disease it will be a challenge to heal these wounds, even with a wound VAC if we can arrange it. Measurements were taken, please see findings above. The patient was then taken to PACU in stable condition. ESTIMATED BLOOD LOSS: Approximately 50 mL. COMPLICATIONS: None. SPECIMEN: Culture of abscess tunnel sent for microbiology. DRAINS: None PLAN: Our plan is for Dakin's damp to dry dressings twice a day for now, and then possibly switch the patient to a wound VAC if this is something that can be managed through home health outpatient. It may be a challenge to arrange due to the patient's Thursday dialysis, but it was certainly expedite healing substantially if we could figure out a way for him to have a wound VAC outpatient. Continue IV antibiotics. Follow cultures. NOAH MATTSON MD Dec 06, 2018 19:51
[2018-12-06] MEDS ORDERED: ONDANSETRON 4MG/2ML VIAL (J2405) IV PRN (20:00)
[2018-12-06] MEDS ORDERED: PERCOCET 5MG/325MG TAB PO PRN (20:00)
[2018-12-06] MEDS ORDERED: NS 1,000 ML IV SCH (20:00)
[2018-12-06] MEDS ORDERED: METOCLOPRAMIDE INJ 10MG/2ML VIAL (J2765) IV PRN (20:00)
[2018-12-06] MEDS ORDERED: fentaNYL 100 MCG/2 ML INJECTION (J3010) IV PRN (20:00)
[2018-12-06 20:10] VITALS: BP 112/58
[2018-12-06 20:45] VITALS: BP 114/62
[2018-12-06 21:45] VITALS: BP 120/60
[2018-12-06 22:15] VITALS: BP 114/59
[2018-12-06 23:45] VITALS: BP 114/58
[2018-12-07 01:45] VITALS: BP 137/71
[2018-12-07 06:00] VITALS: BP 128/67
[2018-12-07 06:19] LABS: HEMATOCRIT 29.1 % (42.0-52.0); MEAN CORPUSCULAR HEMOGLOBIN 31.6 pg (27.0-33.0); PLATELET COUNT, AUTOMATED 108 10^3/uL (150-450); RED BLOOD COUNT 2.94 10^6/uL (4.30-6.10); WHITE BLOOD COUNT 11.5 10^3/uL (4.0-10.0)
[2018-12-07 06:31] LABS: HEMOGLOBIN 9.3 g/dl (13.5-17.5)
[2018-12-07 06:35] LABS: INR 1.57; PROTHROMBIN TIME 18.5 SECONDS (11.8-14.0)
[2018-12-07 06:44] LABS: VANCOMYCIN RANDOM 17.5 UG/ML
[2018-12-07 06:48] LABS: ALBUMIN 2.6 GM/DL (3.2-5.2); BILIRUBIN,TOTAL 1.7 MG/DL (0.2-1.0); CALCIUM LEVEL 8.2 MG/DL (8.8-10.2); CREATININE FOR GFR 7.18 MG/DL (0.70-1.30); GLOMERULAR FILTRATION RATE 9.8 (>42); POTASSIUM SERUM 4.4 MEQ/L (3.5-5.1); TOTAL PROTEIN 6.7 GM/DL (6.4-8.2)
[2018-12-07] MEDS: IPRATROPIUM 0.5MG/ALBUTEROL 2.5MG INH SOL UD 3ML (DUONEB)(J7620) NEB SCH ×4 (07:57→21:11)
[2018-12-07] MEDS: PIPERACILLIN/TAZOBACTAM SOD 2.25 GM in D5W MINI-BAG PLUS 50 ML IV SCH ×3 (08:58→23:26)
[2018-12-07] MEDS: HumaLOG INSULIN (NovoLOG) PER UNIT SC SCH ×4 (08:58→21:00)
[2018-12-07] MEDS: ACETAMINOPHEN TAB 650MG DOSE (2X325MG) PO PRN (08:58)
[2018-12-07] MEDS: OYSTER SHELL CALCIUM 500 MG TAB PO SCH (08:59)
[2018-12-07] MEDS: METOPROLOL TART 25 MG TABLET PO SCH ×2 (08:59→21:35)
[2018-12-07] MEDS: NEPHRO-VIT TAB (NEPHROCAPS) PO SCH (09:22)
[2018-12-07 10:00] VITALS: BP 113/84
[2018-12-07] MEDS ORDERED: DARBEPOETIN 100 MCG/0.5 ML *DIALYSIS* SYRINGE (J0882) IV SCH (10:15)
--- NOTE | 2018-12-07 11:46 | IPNPDOC ---
Date Seen The patient was seen on 12/07/18. Progress Note Mr Yamil is a very pleasant 73yo gentleman POD #1 s/p excisional debridement RUE forearm abscess, hematoma, chronic ulcer. He did well overnight, no significant bleeding through dressing, no significant pain reported. Pt is sitting up at the edge of the bed, chatting with his , and says he is feeling much better. Pt's present for dressing change and all questions answered. On exam, dressings removed. Both open wounds are clean, no purulence or gross bleeding noted. There is some mild oozing from the soft tissues- expected with open wounds and elevated INR, but it is easily controlled with mild pressure. The swelling in the hand and forearm is dramatically improved today. Radial pulse RUE 2+. The proximal incision where we ligated some superficial veins is closed and intact. The skin was cleaned, dried. Each wound has clean tissue at the base, no real granulation yet. The cavities were irrigated and then the open wounds and the proximal, mid, and distal tunnels were gently packed with nugauze/dakins and the packing was covered with 4x4, kerlex, and isac wraps from the hand to the elbow. The incision from recent brachial cephalic AVF creation is still well healed. The AVF has a great thrill, and seems to be maturing well. Plan: Will follow cultures and sensitivities- new culture of the arm sent from the OR yesterday and prelim growth is polymicrobial. Continue broad spectrum antibiotics for now. Pt had a dose of vancomycin prior to dialysis yesterday, so we gave another dose in the OR prior to the procedure. Will consult the advanced hospice volunteer for recommendations. I think he would heal well with a wound vac after a few days of dakins damp to dry dressings. I am not sure how we would arrange this around his dialysis treatments MWF outpatient, but I think it would expedite healing. Alternatively, we could continue damp to dry dressings outpatient, but this may be a little challenging due to the soft tissue oozing with dressing changes. The vac will help to granulate and provide compression to help with controlling soft tissue oozing. No veins or arteries are exposed within the wounds or tunnels. VS, I&O, 24H, Fishbone Vital Signs/I&O Vital Signs Date Time Temp Pulse Resp B/P (MAP) Pulse Ox O2 Delivery O2 Flow Rate FiO2 12/07/18 10:00 97.4 84 18 113/84 (94) 95 12/07/18 06:00 2.0 12/06/18 11:01 Room Air I&O- Last 24 Hours up to 6 AM 12/07/18 06:00 Intake Total 800 ml Output Total 3500 ml Balance -2700 ml Laboratory Data 24H LABS Laboratory Tests 2 12/06/18 11:45: Bedside Glucose (Misc Panel) 203H 12/06/18 16:46: Bedside Glucose (Misc Panel) 91 12/06/18 19:32: Bedside Glucose (Misc Panel) 95 12/06/18 20:39: Bedside Glucose (Misc Panel) 94 12/07/18 05:57: Nucleated Red Blood Cells % (auto) 0.0, Prothrombin Time 18.5H, Prothromb Time International Ratio 1.57, Anion Gap 8, Glomerular Filtration Rate 9.8L, Blood Urea Nitrogen 50H, Creatinine 7.18H, Sodium Level 139, Potassium Level 4.4, Chloride Level 104, Carbon Dioxide Level 27, Calcium Level 8.2L, Aspartate Amino Transf (AST/SGOT) 14, Alanine Aminotransferase (ALT/SGPT) 11L, Alkaline Phosphatase 147H, Total Bilirubin 1.7H, Total Protein 6.7, Albumin 2.6#L, Albumin/Globulin Ratio 0.63L, Random Vancomycin Level 17.5 CBC/BMP Laboratory Tests 12/07/18 05:57 Red Blood Count 2.94 L, Mean Corpuscular Volume 99.0 H, Mean Corpuscular Hemoglobin 31.6, Mean Corpuscular Hemoglobin Concent 32.0, Red Cell Distribution Width 16.3 H, Calcium Level 8.2 L, Aspartate Amino Transf (AST/SGOT) 14, Alanine Aminotransferase (ALT/SGPT) 11 L, Alkaline Phosphatase 147 H, Total Bilirubin 1.7 H, Total Protein 6.7, Albumin 2.6 #L Microbiology Microbiology 12/06/18 Blood Culture - Preliminary, Resulted 12/06/18 Blood Culture - Preliminary, Resulted 12/06/18 Gram Stain - Final, Resulted 12/06/18 Wound Culture, Resulted Pending 12/06/18 Abscess Culture, Received Pending NOAH KAM MD Dec 07, 2018 11:46
[2018-12-07] MEDS: GABAPENTIN 100 MG CAP PO SCH (12:40)
[2018-12-07] MEDS: ATORVASTATIN 20 MG TAB PO SCH (12:40)
[2018-12-07 12:53] LABS: PHOSPHORUS LEVEL 3.9 MG/DL (2.5-4.9)
--- NOTE | 2018-12-07 13:02 | IPNPDOC ---
Date Seen The patient was seen on 12/07/18. Progress Note SUBJECTIVE: Patient was seen and examined this morning. He currently has no new complaints. He is currently status post excision/debridement of his right upper extremity forearm abscess and hematoma day 1 per vascular surgery. There have been no adverse events reported overnight. Patient has been recieving diaylsis MWF. He has complained of "itchiness" during and after dialysis. OBJECTIVE PHYSICAL EXAMINATION: VITAL SIGNS: Please see below. GENERAL: awake, alert and oriented. He does not appear in acute distress. He is sitting on edge of bed eating lunch HEENT: Atraumatic, normocephalic. Right eye opacity consistent with cataract. Trachea is midline. Dentition is poor CARDIOVASCULAR: Normal S1, S2. Irregular rate and rhythm. No clicks, rubs, or murmurs RESPIRATORY: Clear breath sounds bilaterally. No wheezes, rhonci, or rales ABDOMINAL: Obese, soft, nontender to palpation. Positive bowel sounds EXTREMITIES: Trans-metatarsal amputation of left foot. Right sided RUE chronic ulcer and fistula currently bandaged. Right chest wall hemodialysis catheter. No edema NEUROLOGICAL: No focal neurological deficits PSYCHOLOGICAL: Mood and affect appear appropriate LABORATORY DATA, IMAGING STUDIES, MICROBIOLOGY: Please see below ASSESSMENT AND PLAN PROBLEMS: 1. End Stage Renal Disease on Hemodialysis: Patient currently receives hemodialysis on a [facility] schedule. He has received dialysis yesterday. Patient had complained of "itchiness" during and after dialysis. He is currently s/p debridement of his right upper extremity fistula abscess. He continues to scratch this area impeding healing. He is currently receiving Hydroxazine 25mg BID. A phosphorous level is currently pending. Patient currently receives hemodialysis through a right chest wall tunneled hemodialysis catheter 2. 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 He is currently s/p day 1 abscess drainage and debridement of his right arm fistula abscess. Patient is currently receiving Vancomycin and Zosyn VS, I&O, 24H, Fishbone Vital Signs/I&O Vital Signs Date Time Temp Pulse Resp B/P (MAP) Pulse Ox O2 Delivery O2 Flow Rate FiO2 12/07/18 10:00 97.4 84 18 113/84 (94) 95 12/07/18 06:00 2.0 12/06/18 11:01 Room Air I&O- Last 24 Hours up to 6 AM 12/07/18 06:00 Intake Total 800 ml Output Total 3500 ml Balance -2700 ml Laboratory Data 24H LABS Laboratory Tests 2 12/06/18 16:46: Bedside Glucose (Misc Panel) 91 12/06/18 19:32: Bedside Glucose (Misc Panel) 95 12/06/18 20:39: Bedside Glucose (Misc Panel) 94 12/07/18 05:57: Nucleated Red Blood Cells % (auto) 0.0, Prothrombin Time 18.5H, Prothromb Time International Ratio 1.57, Anion Gap 8, Glomerular Filtration Rate 9.8L, Blood Urea Nitrogen 50H, Creatinine 7.18H, Sodium Level 139, Potassium Level 4.4, Chloride Level 104, Carbon Dioxide Level 27, Calcium Level 8.2L, Aspartate Amino Transf (AST/SGOT) 14, Alanine Aminotransferase (ALT/SGPT) 11L, Alkaline Phosphatase 147H, Total Bilirubin 1.7H, Total Protein 6.7, Albumin 2.6#L, Albumin/Globulin Ratio 0.63L, Random Vancomycin Level 17.5 12/07/18 11:53: Bedside Glucose (Misc Panel) 130H CBC/BMP Laboratory Tests 12/07/18 05:57 Red Blood Count 2.94 L, Mean Corpuscular Volume 99.0 H, Mean Corpuscular Hemoglobin 31.6, Mean Corpuscular Hemoglobin Concent 32.0, Red Cell Distribution Width 16.3 H, Calcium Level 8.2 L, Aspartate Amino Transf (AST/SGOT) 14, Alanine Aminotransferase (ALT/SGPT) 11 L, Alkaline Phosphatase 147 H, Total Bilirubin 1.7 H, Total Protein 6.7, Albumin 2.6 #L Microbiology Microbiology 12/06/18 Blood Culture - Preliminary, Resulted 12/06/18 Blood Culture - Preliminary, Resulted 12/06/18 Gram Stain - Final, Resulted 12/06/18 Wound Culture, Resulted Pending 12/06/18 Abscess Culture, Received Pending GME ATTESTATION GME ATTESTATION My faculty preceptor for this patient encounter was physically present during the encounter and was fully available. All aspects of the patient interview, examination, medical decision making process, and medical care plan development were reviewed and approved by the faculty preceptor. The faculty preceptor is aware and concurs with the plan as stated in the body of this note and will attest to such by his/her cosignature. MANUELITO RIDDLE DO Dec 07, 2018 13:02
[2018-12-07 14:00] VITALS: BP 120/74
--- NOTE | 2018-12-07 15:40 | CR ---
DATE OF CONSULTATION: 12/06/2018 HISTORY OF PRESENT ILLNESS: Patient is a 73-year-old male who originally presented to the emergency department with a complaint of bleeding of his right arteriovenous (AV) fistula. 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 Patient has stated that his AV fistula began bleeding approximately 2 weeks ago and was constant at one point, however, has been more intermittent lately. The patient has been being followed by Dr. Benjamin of vascular surgery, who has done multiple revision to the fistula. In the emergency room the patient had has dressings around his right fistula removed, at which point purulent drainage was noted. The patient has had blood cultures obtained, which are currently pending. The patient has been started on intravenous (IV) antibiotics with vancomycin and Zosyn for presumed infection or abscess. Vascular surgery was also consulted at the time for management of the patient's bleeding AV fistula and possible drainage of abscess formation on the right as well. Nephrology was consulted as the patient currently receives hemodialysis Thursday, Thursday, Thursday. He is currently due for hemodialysis today. ALLERGIES: No known allergies. PAST MEDICAL HISTORY: 1. End-stage renal disease, on hemodialysis Thursday, Thursday, Thursday. 2. Hyperlipidemia. 3. Neuropathy. 4. Diabetes mellitus, type 2. 5. Morbid obesity. 6. Hypertension. 7. Coronary artery disease. 8. Gastroesophageal reflux disease. 9. Atrial fibrillation. 10. Obstructive sleep apnea. PAST SURGICAL HISTORY: 1. Right radiocephalic AV fistula creation with multiple revision. 2. Ligation of the right radiocephalic AV fistula and creation of a new right brachiocephalic AV fistula. 3. Transmetatarsal amputation of the left foot. FAMILY HISTORY: Only positive for hypertensive heart disease and diabetes. SOCIAL HISTORY: Patient denies any illicit drug use. He denies any alcohol use. He denies smoking. INPATIENT MEDICATIONS: - atorvastatin 20 mg - gabapentin 100 mg - calcium carbonate 500 mg - vitamin B complex one tablet daily - DuoNeb - Zosyn every 8 hours - vancomycin 1000 mg - acetaminophen 650 mg every 4 hours as needed - hydroxyzine 25 mg twice a day as needed - metoprolol tartrate 25 mg twice a day - Coumadin 4 mg daily REVIEW OF SYSTEMS: CONSTITUTIONAL: The patient denies any fevers or chills. He denies any weight loss or weight gain. CARDIOVASCULAR: Patient denies any palpitations or feelings of the heart racing. He denies any chest pain. PULMONARY: Patient denies any shortness of breath. He denies any cough. He denies any wheezing. ABDOMEN: Patient denies any abdominal pain. He denies any nausea, vomiting, diarrhea, or constipation. GENITOURINARY: Patient admits to end-stage renal disease, on hemodialysis. MUSCULOSKELETAL: Patient admits to right upper extremity ulcer as well as fistula. He admits to amputation of his left metatarsals. SKIN: Patient admits to an abscess with chronic wound in the right upper extremity with bleeding. NEUROLOGIC: Patient denies headaches. He denies seizures. PSYCHIATRIC: Patient denies anxiety or depression. ENDOCRINE: Patient denies heat intolerance or cold intolerance. He admits to diabetes. HEMATOLOGIC/LYMPHATIC: Patient admits to bleeding from his right arm fistula. He admits to easy bruising. Patient is chronically anticoagulated with Coumadin. ALLERGIC/IMMUNOLOGIC: Patient denies any allergies. PHYSICAL EXAMINATION: VITAL SIGNS: Temperature 97.8, pulse 104, respiratory rate 20, blood pressure 133/82, pulse oximetry 98% on room air. GENERAL: Patient is awake, alert. He is oriented. He does not appear in any acute distress. He is lying in his bed comfortably. CARDIOVASCULAR: Normal S1, S2, irregularly irregular rate and rhythm. No clicks, rubs, or murmurs. ABDOMEN: Morbid obesity. Soft, nontender, nondistended. Positive bowel sounds throughout. EXTREMITIES: Patient has a right upper extremity midforearm abscess. He has a fistula present in the right upper extremity. He has a right chest wall catheter in place for hemodialysis. He has a transmetatarsal amputation of the left foot. NEUROLOGIC: Alert and oriented times three. PSYCHIATRIC: Mood and affect appear appropriate. LABORATORY DATA: Hematology: White blood cells 10.5, hemoglobin 11.5, hematocrit 35.9, platelets 114. Chemistries: Sodium 138, potassium 4.2, chloride 101, carbon dioxide 28, BUN 69, creatinine 8.69, glucose 120. Calcium 8.2. Alkaline phosphatase 184, ALT 13, AST 14. C-reactive protein 14. Total protein 7.7, albumin 3.3. Lactic acid 1.0. ASSESSMENT AND PLAN: 1. Bleeding from right arm fistula: The patient has had chronic bleeding from this right arm fistula. He has multiple revision to his fistula, including ligation of his right radiocephalic AV fistula with a new right brachiocephalic AV fistula formation. He has seen Dr. Benjamin for several of these revisions. The patient is planned to be taken to the operating room (OR) by Dr. Mattson of vascular surgery for repair of fistula and drainage of the abscess. 2. End-stage renal disease, on hemodialysis Thursday, Thursday, Thursday: The patient receives hemodialysis on Thursday, Thursday, Thursday. He will be continued on his normal dialysis scheduled. He will be taken to dialysis today. He has a right chest wall catheter in place for hemodialysis. 3. Diabetes mellitus, type 2. Patient has a history of diabetes mellitus. He is currently being managed by the primary team, on sliding-scale insulin. My faculty preceptor for this patient encounter was physically present during the encounter and was fully available. All aspects of the patient interview, examination, medical decision making process, and medical care plan development were reviewed and approved by the faculty preceptor. The faculty preceptor is aware and concurs with the plan as stated in the body of this note and will attest to such by his/her co-signature. NOMI
--- NOTE | 2018-12-07 17:26 | IPNPDOC ---
Subjective Date Seen The patient was seen on 12/07/18. Subjective Chief Complaint/HPI Follow-up infected right forearm dialysis fistula Events since last encounter Patient seen and examined at bedside. Patient pointed to feeling tired, but otherwise denies fevers, chills, chest pain, difficulty breathing, nausea, vomiting, abdominal pain, leg pain. Left forearm with some continued bleeding. Objective Physical Examination General Exam: Positive: Alert, Cooperative, No Acute Distress Chest Exam: Positive: Clear to auscultation, Normal air movement Heart Exam: Positive: Rate Normal Abdomen Exam: Positive: Normal bowel sounds, Soft; Negative: Tenderness Extremity Exam: Positive: Edema (1+ lower extremity edema bilaterally), Other (right forearm wrapped in bandage bandage appears clean, dry and intact. Minimal blood) Neuro Exam: Positive: Normal Speech, Other (no focal deficits) Psych Exam: Positive: Mental status NL, Mood NL, Oriented x 3 Assessment /Plan Assessment Patient is 73-year-old male who presented for infected right forearm dialysis fistula Plan/VTE VTE Prophylaxis Ordered?: Yes Plan 1. Infected bleeding dialysis graft. -Appreciated interventional radiology consult. - Pt s/p OR yesterday for s/p excisional debridement RUE forearm abscess, hematoma, chronic ulcer. -She indicates that it is okay to keep the patient on a therapeutic dose of warfarin and we will continue this. -She agrees with the current antibiotic regimen (vanc/zosyn). Once cultures are back, antibiotic therapy can be more tailored to a more narrow spectrum. -considering wound vac to expedite healing -wound care nurse consult Trend CBC 2. End stage renal disease. -appreciate nephrology consult. -yesterday was his dialysis day. 3. Hyperlipidemia. Continue atorvastatin. 4. Hypertension. Well controlled on current regimen. 5. Diabetes. Sliding scale of insulin with coverage. 6. Atrial fibrillation. Continue with warfarin. Daily INR has been ordered. VS, I&O, 24H, Fishbone Vital Signs/I&O Vital Signs Date Time Temp Pulse Resp B/P (MAP) Pulse Ox O2 Delivery O2 Flow Rate FiO2 12/07/18 14:00 97.6 95 20 120/74 (89) 97 12/07/18 06:00 2.0 12/06/18 11:01 Room Air I&O- Last 24 Hours up to 6 AM 12/07/18 06:00 Intake Total 800 ml Output Total 3500 ml Balance -2700 ml Laboratory Data 24H LABS Laboratory Tests 2 12/06/18 19:32: Bedside Glucose (Misc Panel) 95 12/06/18 20:39: Bedside Glucose (Misc Panel) 94 12/07/18 05:57: Nucleated Red Blood Cells % (auto) 0.0, Prothrombin Time 18.5H, Prothromb Time International Ratio 1.57, Anion Gap 8, Glomerular Filtration Rate 9.8L, Blood Urea Nitrogen 50H, Creatinine 7.18H, Sodium Level 139, Potassium Level 4.4, Chloride Level 104, Carbon Dioxide Level 27, Calcium Level 8.2L, Aspartate Amino Transf (AST/SGOT) 14, Alanine Aminotransferase (ALT/SGPT) 11L, Alkaline Phosphatase 147H, Total Bilirubin 1.7H, Total Protein 6.7, Albumin 2.6#L, Phosphorus Level 3.9, Albumin/Globulin Ratio 0.63L, Random Vancomycin Level 17.5 12/07/18 11:53: Bedside Glucose (Misc Panel) 130H CBC/BMP Laboratory Tests 12/07/18 05:57 Red Blood Count 2.94 L, Mean Corpuscular Volume 99.0 H, Mean Corpuscular Hemoglobin 31.6, Mean Corpuscular Hemoglobin Concent 32.0, Red Cell Distribution Width 16.3 H, Calcium Level 8.2 L, Aspartate Amino Transf (AST/SGOT) 14, Alanine Aminotransferase (ALT/SGPT) 11 L, Alkaline Phosphatase 147 H, Total Bilirubin 1.7 H, Total Protein 6.7, Albumin 2.6 #L Microbiology Microbiology 12/06/18 Blood Culture - Preliminary, Resulted 12/06/18 Blood Culture - Preliminary, Resulted 12/06/18 Gram Stain - Final, Resulted MODERATE RBCS MODERATE WBCS FEW GRAM POSITIVE COCCI IN PAIRS AND CLUSTERS FEW GRAM NEGATIVE RODS 12/06/18 Wound Culture, Resulted Pending 12/06/18 Abscess Culture, Received Pending PEYMAN JIANG MD Dec 07, 2018 17:26
[2018-12-07] MEDS: WARFARIN SOD 4 MG TAB PO SCH (21:35)
[2018-12-07 22:00] VITALS: BP 118/66
[2018-12-08] MEDS: ACETAMINOPHEN TAB 650MG DOSE (2X325MG) PO PRN ×2 (00:20→15:35)
[2018-12-08 05:56] LABS: HEMATOCRIT 28.8 % (42.0-52.0); HEMOGLOBIN 9.4 g/dl (13.5-17.5); MEAN CORPUSCULAR HEMOGLOBIN 31.8 pg (27.0-33.0); MEAN CORPUSCULAR HGB CONC 32.6 g/dl (32.0-36.5); MEAN CORPUSCULAR VOLUME 97.3 fl (80.0-96.0); PLATELET COUNT, AUTOMATED 112 10^3/uL (150-450); RED BLOOD COUNT 2.96 10^6/uL (4.30-6.10); WHITE BLOOD COUNT 9.9 10^3/uL (4.0-10.0)
[2018-12-08 06:00] VITALS: BP 109/56
[2018-12-08 06:13] LABS: INR 1.61; PROTHROMBIN TIME 18.9 SECONDS (11.8-14.0)
[2018-12-08] MEDS: NEPHRO-VIT TAB (NEPHROCAPS) PO SCH (06:15)
[2018-12-08] MEDS: METOPROLOL TART 25 MG TABLET PO SCH ×2 (06:15→20:58)
[2018-12-08] MEDS: OYSTER SHELL CALCIUM 500 MG TAB PO SCH (06:15)
[2018-12-08 06:27] LABS: CALCIUM LEVEL 7.8 MG/DL (8.8-10.2); CREATININE FOR GFR 8.31 MG/DL (0.70-1.30); GLOMERULAR FILTRATION RATE 8.3 (>42); MAGNESIUM LEVEL 2.4 MG/DL (1.8-2.4); PHOSPHORUS LEVEL 4.7 MG/DL (2.5-4.9); POTASSIUM SERUM 4.6 MEQ/L (3.5-5.1)
[2018-12-08 06:44] LABS: VANCOMYCIN RANDOM 16.3 UG/ML
[2018-12-08] MEDS: HumaLOG INSULIN (NovoLOG) PER UNIT SC SCH ×4 (06:59→20:58)
[2018-12-08] MEDS: PIPERACILLIN/TAZOBACTAM SOD 2.25 GM in D5W MINI-BAG PLUS 50 ML IV SCH (07:00)
[2018-12-08] MEDS: IPRATROPIUM 0.5MG/ALBUTEROL 2.5MG INH SOL UD 3ML (DUONEB)(J7620) NEB SCH ×4 (08:12→20:24)
[2018-12-08 08:30] VITALS: BP 127/67
--- NOTE | 2018-12-08 09:43 | IPNPDOC ---
Date Seen The patient was seen on 12/08/18. Progress Note Mr Yamil is a very pleasant 73yo gentleman POD #2 s/p excisional debridement RUE forearm abscess, hematoma, chronic ulcer. He is 1 month s/p ligation of RUE forearm radial cephalic AVF due to bleeding from chronic ulcer and creation of new RUE brachial cephalic AVF. He did well overnight, no significant bleeding through dressing, no significant pain reported. cooker chip with new recommendations for dressings with hydrofera blue rope, foam, coban, and I think this is excellent- appreciate Raisa's input. Pt is on his way down for dialysis, and says he is feeling much better. On exam, dressing is c/d/i and done this morning by nursing. The swelling in the hand and forearm is dramatically improved with compression and washout of abscess. Radial pulse RUE 2+. The proximal incision where we ligated some superficial veins is closed and intact. The incision from recent brachial cephalic AVF creation is still well healed, as is the distal incision from ligation of previous radial cephalic AVF. The new AVF has a great thrill, and seems to be maturing well. It may be almost ready for use, but we want to hold off with infection in the ipsilateral distal forearm and positive blood cultu res. Thoroughly cleaned his permcath in dialysis today- he scratches at it, and has several superficial excoriation at the skin around the exit site. I am not able to milk any pus or drainage from the incision, and I think it may just be a reaction to the chlorahexadine tegaderm dressing- we will dry dry gauze and plain tegaderm and see if this provides any improvement. With positive blood cultures, best option is to remove permcath, give him a line holiday, and then replace it. Ideally, we would just leave it out and use his new brachial cephalic AVF but I'm not sure it is quite ready for use. Will see how he does. Plan: Blood cultures and forearm abscess cultures all positive for klebsiella oxytoca, sensitive to multiple antibiotics but lowest STANISLAV with levaquin. Currently pt on vanc and cefepime IV. Continue dressing changes per process manager with hydrofera blue rope, foam, coban, and avoid compression antecubital crease with coban so we do not limit inflow to new AVF upper arm. VS, I&O, 24H, Fishbone Vital Signs/I&O Vital Signs Date Time Temp Pulse Resp B/P (MAP) Pulse Ox O2 Delivery O2 Flow Rate FiO2 12/08/18 06:15 81 109/56 12/08/18 06:00 96.7 18 93 12/07/18 06:00 2.0 12/06/18 11:01 Room Air I&O- Last 24 Hours up to 6 AM 12/08/18 06:00 Intake Total 2810 ml Output Total 0 ml Balance 2810 ml Laboratory Data 24H LABS Laboratory Tests 2 12/07/18 11:53: Bedside Glucose (Misc Panel) 130H 12/07/18 17:20: Bedside Glucose (Misc Panel) 152H 12/07/18 20:36: Bedside Glucose (Misc Panel) 127H 12/08/18 05:41: Nucleated Red Blood Cells % (auto) 0.0, Prothrombin Time 18.9H, Prothromb Time International Ratio 1.61, Anion Gap 8, Glomerular Filtration Rate 8.3L, Blood Urea Nitrogen 66H, Creatinine 8.31*H, Sodium Level 139, Potassium Level 4.6, Chloride Level 105, Carbon Dioxide Level 26, Calcium Level 7.8L, Phosphorus Level 4.7#, Magnesium Level 2.4, Random Vancomycin Level 16.3 CBC/BMP Laboratory Tests 12/08/18 05:41 Red Blood Count 2.96 L, Mean Corpuscular Volume 97.3 H, Mean Corpuscular Hemoglobin 31.8, Mean Corpuscular Hemoglobin Concent 32.6, Red Cell Distribution Width 16.0 H, Calcium Level 7.8 L Microbiology Microbiology 12/06/18 Blood Culture - Final, Complete Klebsiella Oxytoca 12/06/18 Blood Culture - Final, Complete Klebsiella Oxytoca 12/06/18 Gram Stain - Final, Resulted 12/06/18 Wound Culture, Resulted Pending 12/06/18 Abscess Culture - Final, Complete Klebsiella Oxytoca NOAH KAM MD Dec 08, 2018 09:43
[2018-12-08] MEDS ORDERED: CEFEPIME HCL 1 GM in D5W MINI-BAG PLUS 50 ML IV ONE (12:00)
[2018-12-08 14:00] VITALS: BP 131/69
[2018-12-08] MEDS: ATORVASTATIN 20 MG TAB PO SCH (15:34)
[2018-12-08] MEDS: GABAPENTIN 100 MG CAP PO SCH (15:35)
--- NOTE | 2018-12-08 16:20 | IPNPDOC ---
Subjective Date Seen The patient was seen on 12/08/18. Subjective Chief Complaint/HPI Follow-up infected right forearm dialysis fistula Events since last encounter Patient seen and examined at bedside. Patient feeling tired today after his dialysis session. Otherwise, denies fevers, chills, chest pain, difficulty breathing, nausea, vomiting, diarrhea, leg pain. Objective Physical Examination General Exam: Positive: Alert, Cooperative, No Acute Distress, Other (tired appearing) Chest Exam: Positive: Clear to auscultation, Normal air movement Heart Exam: Positive: Rate Normal, Murmurs (systolic ) Abdomen Exam: Positive: Normal bowel sounds, Soft; Negative: Tenderness Extremity Exam: Positive: Edema (trace lower extremity edema bilaterally), Other (right forearm wrapped in bandage bandage appears clean, dry and intact) Neuro Exam: Positive: Normal Speech, Other (no focal deficits) Psych Exam: Positive: Mental status NL, Mood NL, Oriented x 3 Assessment /Plan Assessment 9-year-old male with infected right forearm dialysis fistula Plan/VTE VTE Prophylaxis Ordered?: Yes Plan 1. Infected bleeding dialysis graft. -Appreciated interventional radiology consult. - Pt s/p OR for excisional debridement RUE forearm abscess, hematoma, chronic ulcer. -Cultures all grew out Klebsiella Oxytoca sensitive to multiple antibiotics but resistant to zosyn. Will transition pt to cefepime and stop vanc/zosyn. -will touch base with ID regarding ad terminal makeup operator abx plan -considering wound vac to expedite healing -wound care nurse consult Trend CBC 2. End stage renal disease. -appreciate nephrology consult. -yesterday was his dialysis day. 3. Hyperlipidemia. Continue atorvastatin. 4. Hypertension. Well controlled on current regimen. 5. Diabetes. Sliding scale of insulin with coverage. 6. Atrial fibrillation. Continue with warfarin. Daily INR has been ordered. Disposition pending halfway plan for antibiotics given klebsiella VS, I&O, 24H, Fishbone Vital Signs/I&O Vital Signs Date Time Temp Pulse Resp B/P (MAP) Pulse Ox O2 Delivery O2 Flow Rate FiO2 12/08/18 14:00 97.6 101 20 131/69 (89) 96 12/07/18 06:00 2.0 12/06/18 11:01 Room Air I&O- Last 24 Hours up to 6 AM 12/08/18 06:00 Intake Total 2810 ml Output Total 0 ml Balance 2810 ml Laboratory Data 24H LABS Laboratory Tests 2 12/07/18 17:20: Bedside Glucose (Misc Panel) 152H 12/07/18 20:36: Bedside Glucose (Misc Panel) 127H 12/08/18 05:41: Nucleated Red Blood Cells % (auto) 0.0, Prothrombin Time 18.9H, Prothromb Time International Ratio 1.61, Anion Gap 8, Glomerular Filtration Rate 8.3L, Blood Urea Nitrogen 66H, Creatinine 8.31*H, Sodium Level 139, Potassium Level 4.6, Chloride Level 105, Carbon Dioxide Level 26, Calcium Level 7.8L, Phosphorus Level 4.7#, Magnesium Level 2.4, Random Vancomycin Level 16.3 12/08/18 13:40: Bedside Glucose (Misc Panel) 76L CBC/BMP Laboratory Tests 12/08/18 05:41 Red Blood Count 2.96 L, Mean Corpuscular Volume 97.3 H, Mean Corpuscular Hemoglobin 31.8, Mean Corpuscular Hemoglobin Concent 32.6, Red Cell Distribution Width 16.0 H, Calcium Level 7.8 L Microbiology Microbiology 12/08/18 Blood Culture, Received Pending 12/06/18 Blood Culture - Final, Complete Klebsiella Oxytoca 12/06/18 Blood Culture - Final, Complete Klebsiella Oxytoca 12/06/18 Gram Stain - Final, Resulted 12/06/18 Wound Culture - Preliminary, Resulted Klebsiella Oxytoca 12/06/18 Abscess Culture - Final, Complete Klebsiella Oxytoca PEYMAN JIANG MD Dec 08, 2018 16:20
[2018-12-08] MEDS: WARFARIN SOD 4 MG TAB PO SCH (20:58)
[2018-12-08 22:00] VITALS: BP 137/81
[2018-12-09 06:00] VITALS: BP 135/79
[2018-12-09 06:26] LABS: HEMATOCRIT 29.7 % (42.0-52.0); HEMOGLOBIN 9.5 g/dl (13.5-17.5); MEAN CORPUSCULAR HEMOGLOBIN 32.4 pg (27.0-33.0); MEAN CORPUSCULAR VOLUME 101.4 fl (80.0-96.0); PLATELET COUNT, AUTOMATED 130 10^3/uL (150-450); RED BLOOD COUNT 2.93 10^6/uL (4.30-6.10); WHITE BLOOD COUNT 8.5 10^3/uL (4.0-10.0)
[2018-12-09 06:43] LABS: CREATININE FOR GFR 5.98 MG/DL (0.70-1.30); GLOMERULAR FILTRATION RATE 12.1 (>42); MAGNESIUM LEVEL 2.3 MG/DL (1.8-2.4); PHOSPHORUS LEVEL 4.5 MG/DL (2.5-4.9); POTASSIUM SERUM 4.1 MEQ/L (3.5-5.1)
[2018-12-09 06:48] LABS: INR 1.58; PROTHROMBIN TIME 18.6 SECONDS (11.8-14.0)
[2018-12-09] MEDS: IPRATROPIUM 0.5MG/ALBUTEROL 2.5MG INH SOL UD 3ML (DUONEB)(J7620) NEB SCH ×4 (07:29→20:19)
[2018-12-09] MEDS: OYSTER SHELL CALCIUM 500 MG TAB PO SCH (08:24)
[2018-12-09] MEDS: NEPHRO-VIT TAB (NEPHROCAPS) PO SCH (08:24)
[2018-12-09] MEDS: METOPROLOL TART 25 MG TABLET PO SCH ×2 (08:25→21:05)
[2018-12-09] MEDS: HumaLOG INSULIN (NovoLOG) PER UNIT SC SCH ×4 (08:25→21:00)
[2018-12-09] MEDS: ATORVASTATIN 20 MG TAB PO SCH (11:59)
[2018-12-09] MEDS: GABAPENTIN 100 MG CAP PO SCH (11:59)
--- NOTE | 2018-12-09 12:19 | IPNPDOC ---
Subjective Date Seen The patient was seen on 12/09/18. Subjective Chief Complaint/HPI Follow-up infected right forearm dialysis fistula and bacteremia Events since last encounter Patient seen and examined at bedside. Patient doing well today, just complains of feeling tired. Denies fevers, chills, chest pain, difficulty breathing, nausea, vomiting, abdominal pain, leg pain or swelling. Currently awaiting blood cultures to be negative. Objective Physical Examination General Exam: Positive: Alert, Cooperative, No Acute Distress, Other (tired appearing) Chest Exam: Positive: Clear to auscultation, Normal air movement Heart Exam: Positive: Rate Normal, Irregular Rhythm, Murmurs (systolic ) Abdomen Exam: Positive: Normal bowel sounds, Soft; Negative: Tenderness Extremity Exam: Positive: Edema (trace lower extremity edema bilaterally), Other (right forearm wrapped in bandage bandage appears clean, dry and intact) Neuro Exam: Positive: Normal Speech, Other (no focal deficits) Psych Exam: Positive: Mental status NL, Mood NL, Oriented x 3 Assessment /Plan Assessment She is a 73-year-old male who presented with infected right forearm dialysis fistula bacteremia with Klebsiella Plan/VTE VTE Prophylaxis Ordered?: Yes Plan 1. Infected bleeding dialysis graft. -Appreciated interventional radiology consult. - Pt s/p OR for excisional debridement RUE forearm abscess, hematoma, chronic ulcer. -Cultures all grew out Klebsiella Oxytoca sensitive to multiple antibiotics but resistant to zosyn -cont. cefepime -considering wound vac to expedite healing -wound care nurse consult Trend CBC 2. End stage renal disease. -appreciate nephrology consult. -yesterday was his dialysis day. 3. Hyperlipidemia. Continue atorvastatin. 4. Hypertension. Well controlled on current regimen. 5. Diabetes. Sliding scale of insulin with coverage. 6. Atrial fibrillation. Continue with warfarin. Daily INR has been ordered. Disposition home pending negative blood cultures VS, I&O, 24H, Fishbone Vital Signs/I&O Vital Signs Date Time Temp Pulse Resp B/P (MAP) Pulse Ox O2 Delivery O2 Flow Rate FiO2 12/09/18 08:25 109 136/82 12/09/18 06:00 98.1 21 97 12/07/18 06:00 2.0 12/06/18 11:01 Room Air I&O- Last 24 Hours up to 6 AM 12/09/18 05:59 Intake Total 1360 ml Output Total 4500 ml Balance -3140 ml Laboratory Data 24H LABS Laboratory Tests 2 12/08/18 13:40: Bedside Glucose (Misc Panel) 76L 12/08/18 16:36: Bedside Glucose (Misc Panel) 158H 12/08/18 20:19: Bedside Glucose (Misc Panel) 118H 12/09/18 05:59: Nucleated Red Blood Cells % (auto) 0.0, Prothrombin Time 18.6H, Prothromb Time International Ratio 1.58, Anion Gap 9, Glomerular Filtration Rate 12.1L, Blood Urea Nitrogen 43H, Creatinine 5.98H, Sodium Level 139, Potassium Level 4.1, Chloride Level 104, Carbon Dioxide Level 26, Calcium Level 8.0L, Phosphorus Level 4.5, Magnesium Level 2.3 12/09/18 11:48: Bedside Glucose (Misc Panel) 164H CBC/BMP Laboratory Tests 12/09/18 05:59 Red Blood Count 2.93 L, Mean Corpuscular Volume 101.4 H, Mean Corpuscular Hemoglobin 32.4, Mean Corpuscular Hemoglobin Concent 32.0, Red Cell Distribution Width 16.0 H, Calcium Level 8.0 L Microbiology Microbiology 12/08/18 Blood Culture, Received Pending 12/06/18 Blood Culture - Final, Complete Klebsiella Oxytoca 12/06/18 Blood Culture - Final, Complete Klebsiella Oxytoca 12/06/18 Gram Stain - Final, Complete 12/06/18 Wound Culture - Final, Complete Klebsiella Oxytoca 12/06/18 Abscess Culture - Final, Complete Klebsiella Oxytoca PEYMAN JIANG MD Dec 09, 2018 12:19
[2018-12-09 14:00] VITALS: BP 118/62
[2018-12-09] MEDS: WARFARIN SOD 4 MG TAB PO SCH (21:02)
--- NOTE | 2018-12-09 21:38 | IPN ---
DATE: 12/09/2018 SUBJECTIVE: Patient was seen and examined this morning. He currently has no new complaints. He remains status post excision/debridement of his right upper extremity forearm abscess and hematoma day 2 per vascular surgery. He has had no adverse events reported overnight. Patient currently sees dialysis Thursday, Thursday, Thursday. He received dialysis yesterday Patient was found to be culture positive for Klebsiella oxytoca. He has been switched to cefepime for his antibiotic. Patient will receive his antibiotic after dialysis. OBJECTIVE: VITAL SIGNS: Temperature 98.1, pulse 90, respiratory rate 21, blood pressure 135/79, pulse oximetry 97% on room air. GENERAL: Patient is awake, alert, and oriented. He does not appear in any acute distress. He is sitting on the edge of his bed. CARDIOVASCULAR: Normal S1, S2. Irregularly irregular rate and rhythm. No clicks, rubs, or murmurs. Patient has a right chest wall hemodialysis catheter in place. HEENT: Atraumatic, normocephalic. He has a right eye opacity consistent with cataract. Trachea is midline. He has poor dentition. RESPIRATORY: Patient has clear breath sounds bilaterally. There are no wheezes, rhonchi, or rales. ABDOMEN: Patient has morbid obesity. His abdomen is soft, nontender to palpation. He has positive bowel sounds throughout. 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 He has right-sided upper extremity chronic ulcer. His fistula is status post debridement. It is currently bandaged. He has a right chest wall hemodialysis catheter in place. There is mild trace edema in bilateral lower extremities. NEUROLOGIC: There are no focal neurological deficits noted. PSYCHOLOGIC: Mood and affect appear appropriate. LABORATORY DATA: Hematology: White blood cells 8.5, hemoglobin 9.5, hematocrit 29.7, platelets 130. Chemistry: Sodium 139, potassium 4.1, chloride 105, carbon dioxide 26, BUN 43, creatinine 5.98, fasting glucose 110. Calcium 8.0, phosphorus 4.5, magnesium 2.3. Wound culture positive for Klebsiella oxytoca. Abscess culture positive for Klebsiella oxytoca. Blood cultures times two positive for Klebsiella oxytoca. ASSESSMENT AND PLAN: 1. End-stage renal disease, on hemodialysis: The patient is currently receiving hemodialysis on a Thursday, Thursday, Thursday schedule. He had received dialysis yesterday. He complained of itchiness during dialysis previously. He is receiving hydroxyzine 25 mg twice a day. His phosphorus is normal. He received dialysis through his hemodialysis catheter in the right chest wall. Patient has gram-negative bacteremia, which is culture positive for Klebsiella oxytoca. Upon discharge, patient will likely need to be continued on antibiotics for an extended period of time, in which case he will have to receive his antibiotics after hemodialysis. 2. 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 He follows with Dr. Benjamin as outpatient. He is status post debridement, day 2, for his right arm fistula abscess per Dr. Tate of vascular surgery. He was previously receiving vancomycin and Zosyn. He has been culture positive for Klebsiella oxytoca, which is sensitive to cefepime. He has been changed to 2 gram cefepime. 3. Gram-negative bacteremia, culture positive for Klebsiella oxytoca: As stated above, patient has gram-negative bacteremia. Cultures have come back positive for Klebsiella oxytoca. Patient is on cefepime 2 grams. Patient will likely need to be on extended antibiotic course, in which case he will receive his antibiotics after dialysis on his normal Thursday, Thursday, Thursday schedule. [facility]
[2018-12-09] MEDS: ACETAMINOPHEN TAB 650MG DOSE (2X325MG) PO PRN (21:54)
[2018-12-09 22:00] VITALS: BP 153/83
[2018-12-10] MEDS: ACETAMINOPHEN TAB 650MG DOSE (2X325MG) PO PRN (04:41)
[2018-12-10 05:22] VITALS: BP 125/64
[2018-12-10 06:32] LABS: HEMATOCRIT 30.1 % (42.0-52.0); HEMOGLOBIN 9.5 g/dl (13.5-17.5); MEAN CORPUSCULAR HEMOGLOBIN 31.4 pg (27.0-33.0); MEAN CORPUSCULAR HGB CONC 31.6 g/dl (32.0-36.5); MEAN CORPUSCULAR VOLUME 99.3 fl (80.0-96.0); PLATELET COUNT, AUTOMATED 153 10^3/uL (150-450); RED BLOOD COUNT 3.03 10^6/uL (4.30-6.10); WHITE BLOOD COUNT 8.7 10^3/uL (4.0-10.0)
[2018-12-10 06:48] LABS: INR 1.54; PROTHROMBIN TIME 18.2 SECONDS (11.8-14.0)
[2018-12-10 07:04] LABS: CALCIUM LEVEL 8.1 MG/DL (8.8-10.2); CREATININE FOR GFR 7.3 MG/DL (0.70-1.30); GLOMERULAR FILTRATION RATE 9.6 (>42); MAGNESIUM LEVEL 2.2 MG/DL (1.8-2.4); PHOSPHORUS LEVEL 5.1 MG/DL (2.5-4.9); POTASSIUM SERUM 4.1 MEQ/L (3.5-5.1)
[2018-12-10] MEDS: NEPHRO-VIT TAB (NEPHROCAPS) PO SCH (07:28)
[2018-12-10] MEDS: HumaLOG INSULIN (NovoLOG) PER UNIT SC SCH ×4 (07:28→20:33)
[2018-12-10] MEDS: METOPROLOL TART 25 MG TABLET PO SCH ×2 (07:29→20:40)
[2018-12-10] MEDS: OYSTER SHELL CALCIUM 500 MG TAB PO SCH (07:29)
[2018-12-10] MEDS: IPRATROPIUM 0.5MG/ALBUTEROL 2.5MG INH SOL UD 3ML (DUONEB)(J7620) NEB SCH ×4 (07:51→20:17)
[2018-12-10] MEDS ORDERED: HEPARIN 1,000 UNITS/ML 10ML VIAL (FOR RADIOLOGY& DIALYSIS ONLY) IV ONE (10:00)
[2018-12-10] MEDS ORDERED: HEPARIN 1,000 UNITS/ML 10ML VIAL (FOR RADIOLOGY& DIALYSIS ONLY) XX ONE (10:00)
--- NOTE | 2018-12-10 11:11 | IPNPDOC ---
Date Seen The patient was seen on 12/10/18. Progress Note Mr Yamil is POD#4 s/p RUE excisional debridement of abscess and chronic ulcer. Doing well. Appreciate wound care help with dressing changes. Will likely need follow up for ongoing wound care once outpatient at the wound care center. He has seen Dr Weinberg for his feet. His new RUE brachial cephalic AVF was cannulated for the first time today, but his cannulation was not sustainable for long due to patient movement and fidgeting. She had to then use the catheter. D/w Dr Rodriguez yesterday about possibly removing the permcath due to positive blood cultures, and he felt we could hold off since new cultures are negative, and then today we discussed it again and we were both hopeful that the new brachcephalic AVF might be mature enough for cannulation. deckhand tuna boat felt it would be worth while to try again. We will leave the permcath in for now since repeat cultures are negative and he is HD stable, doing well, and is going to be on at least 4 weeks of antibiotics, but if he shows signs of deterioration we would discontinue it at once. Our hope is that we can get successfully use his new fistula and then we don't need another catheter, but will follow closely. VS, I&O, 24H, Jluis Vital Signs/I&O Vital Signs Date Time Temp Pulse Resp B/P (MAP) Pulse Ox O2 Delivery O2 Flow Rate FiO2 12/10/18 07:29 88 125/64 12/10/18 05:22 96.8 20 99 12/07/18 06:00 2.0 12/06/18 11:01 Room Air I&O- Last 24 Hours up to 6 AM 12/10/18 06:00 Intake Total 1740 ml Output Total 0 ml Balance 1740 ml Laboratory Data 24H LABS Laboratory Tests 2 12/09/18 11:48: Bedside Glucose (Misc Panel) 164H 12/09/18 16:49: Bedside Glucose (Misc Panel) 197H 12/09/18 21:01: Bedside Glucose (Misc Panel) 187H 12/10/18 05:56: Nucleated Red Blood Cells % (auto) 0.0, Prothrombin Time 18.2H, Prothromb Time International Ratio 1.54, Anion Gap 10, Glomerular Filtration Rate 9.6L, Blood Urea Nitrogen 62H, Creatinine 7.30H, Sodium Level 138, Potassium Level 4.1, Chloride Level 103, Carbon Dioxide Level 25, Calcium Level 8.1L, Phosphorus Level 5.1H, Magnesium Level 2.2 CBC/BMP Laboratory Tests 12/10/18 05:56 Red Blood Count 3.03 L, Mean Corpuscular Volume 99.3 H, Mean Corpuscular Hemoglobin 31.4, Mean Corpuscular Hemoglobin Concent 31.6 L, Red Cell Distribution Width 16.1 H, Calcium Level 8.1 L Microbiology Microbiology 12/08/18 Blood Culture - Preliminary, Resulted No growth after 24 hours . All specim... 12/06/18 Blood Culture - Final, Complete Klebsiella Oxytoca 12/06/18 Blood Culture - Final, Complete Klebsiella Oxytoca 12/06/18 Gram Stain - Final, Complete 12/06/18 Wound Culture - Final, Complete Klebsiella Oxytoca 12/06/18 Abscess Culture - Final, Complete Klebsiella Oxytoca NOAH KAM MD Dec 10, 2018 11:11
[2018-12-10] MEDS ORDERED: CEFEPIME HCL 2 GM in D5W MINI-BAG PLUS 50 ML IV SCH (12:00)
[2018-12-10] MEDS ORDERED: CEFEPIME HCL 1 GM in D5W MINI-BAG PLUS 50 ML IV SCH (12:00)
--- NOTE | 2018-12-10 13:15 | IPNPDOC ---
Date Seen The patient was seen on 12/10/18. Progress Note SUBJECTIVE: pt seen in the dialysis unit, and c/o generalized weakness. Per Vascular surgery, "His new RUE brachial cephalic AVF was cannulated for the first time today, but his cannulation was not sustainable for long due to patient movement and fidgeting. She had to then use the catheter. D/w Dr Rodriguez yesterday about possibly removing the permcath due to positive blood cultures, and he felt we could hold off since new cultures are negative, and then today we discussed it again and we were both hopeful that the new brachcephalic AVF might be mature enough for cannulation. data processing supervisor felt it would be worth while to try again. We will leave the permcath in for now since repeat cultures are negative and he is HD stable, doing well, and is going to be on at least 4 weeks of antibiotics, but if he shows signs of deterioration we would discontinue it at once. Our hope is that we can get successfully use his new fistula and then we don't need another catheter, but will follow closely." Blood cx: Klebsiella. Denies fevers, chills, chest pain, difficulty breathing, nausea, vomiting, abdominal pain, leg pain or swelling. OBJECTIVE: Physical Examination VITALS: PLS SEE BELOW General Appearance: Morbidly obese, lying in bed, fluent speech, face is symmetric, no respiratory distress or conversational dyspnea HEENT: He has clouding of the right cornea, left pupil is reactive. No jugular venous distention (JVD). moist mucus membranes poor dentition Lungs with decreased breath sounds, clear. no wheezing rales or rhonchi Heart: Regular rhythm. No murmur. Abdomen: Obese. Nontender. No masses. soft (+) bs x 4 quadrants. no rebound, guarding EXT: Trace peripheral edema. His right forearm is dressed. LABORATORY DATA, IMAGING STUDIES, MICROBIOLOGY: PLS SEE BELOW DATE OF PROCEDURE: 12/06/18 PREPROCEDURE DIAGNOSES: 1. Right upper extremity chronic ulcer 2. Right upper extremity abscess POSTPROCEDURE DIAGNOSES: Same. PROCEDURE: 1. Excisional debridement right upper extremity chronic ulcer, 10 cm debrided of skin, subcutaneous tissue. 2. Excisional debridement right upper extremity abscess cavity, 14 cm debrided of skin, subcutaneous tissue. 3. Ligation of proximal superficial veins 2 SURGEON: Kath Mattson MD ASSESSMENT AND PLAN 73-year-old gentleman with end-stage renal disease,on hemodialysis on Thursday, Thursday, Thursday, hyperlipidemia, neuropathy,diabetes mellitus type 2, morbid obesity, and history of ligation radiocephalic AV fistula due to chronic ulceration and bleeds with Coumadin therapy, now with superficial skin bleeding around this chronic ulcer as well as an abscess near the surgical incision from ligation of his AV fistula. RUE forearm abscess, hematoma, chronic ulcer. He is 1 month s/p ligation of RUE forearm radial cephalic AVF due to bleeding from chronic ulcer and creation of new RUE brachial cephalic AVF. 12/06/18 vascular surgery s/p Excisional debridement right upper extremity chronic ulcer, 10 cm debrided of skin, subcutaneous tissue. s/p Excisional debridement right upper extremity abscess cavity, 14 cm debr ided of skin, subcutaneous tissue. s/p Ligation of proximal superficial veins 2 -blood cx: klebsiella on iv cefepime. - Per Vascular surgery, "His new RUE brachial cephalic AVF was cannulated for first time today, but his cannulation was not sustainable for long due to patient movement and fidgeting. She had to then use the catheter. D/w Dr Rodriguez yesterday about possibly removing the permcath due to positive blood cultures, and he felt we could hold off since new cultures are negative, and then today we discussed it again and we were both hopeful that the new brachcephalic AVF might be mature enough for cannulation. data processing supervisor felt it would be worth while to try again. We will leave the permcath in for now since repeat cultures are negative and he is HD stable, doing well, and is going to be on at least 4 weeks of antibiotics, but if he shows signs of deterioration we would discontinue it at once. Our hope is that we can get successfully use his new fistula and then we don't need another catheter, but will follow closely." Klebsiella bacteremia due to infected dialysis graft -cefepime End-stage renal disease, on hemodialysis Thursday, Thursday, Thursday. -managed by nephrology Hyperlipidemia. -on lipitor Neuropathy. -complicating care Diabetes mellitus, type 2. -consistent carbs renal diet -sliding scale Morbid obesity.BMI 43 -complicating care -h/o elisha Metabolic Syndrome -morbid obesity -hyperlipidemia -complicating care Hypertension. -on metoprolol Coronary artery disease. -on lipitor and metoprolol Gastroesophageal reflux disease. Atrial fibrillation. -on metoprolol for rate control -on coumadin for anticoagulation Obstructive sleep apnea. -cpap qhs VS, I&O, 24H, Fishbone Vital Signs/I&O Vital Signs Date Time Temp Pulse Resp B/P (MAP) Pulse Ox O2 Delivery O2 Flow Rate FiO2 12/10/18 07:29 88 125/64 12/10/18 05:22 96.8 20 99 12/07/18 06:00 2.0 12/06/18 11:01 Room Air I&O- Last 24 Hours up to 6 AM 12/10/18 06:00 Intake Total 1740 ml Output Total 0 ml Balance 1740 ml Laboratory Data 24H LABS Laboratory Tests 2 12/09/18 11:48: Bedside Glucose (Misc Panel) 164H 12/09/18 16:49: Bedside Glucose (Misc Panel) 197H 12/09/18 21:01: Bedside Glucose (Misc Panel) 187H 12/10/18 05:56: Nucleated Red Blood Cells % (auto) 0.0, Prothrombin Time 18.2H, Prothromb Time International Ratio 1.54, Anion Gap 10, Glomerular Filtration Rate 9.6L, Blood Urea Nitrogen 62H, Creatinine 7.30H, Sodium Level 138, Potassium Level 4.1, Chloride Level 103, Carbon Dioxide Level 25, Calcium Level 8.1L, Phosphorus Level 5.1H, Magnesium Level 2.2 CBC/BMP Laboratory Tests 12/10/18 05:56 Red Blood Count 3.03 L, Mean Corpuscular Volume 99.3 H, Mean Corpuscular Hemoglobin 31.4, Mean Corpuscular Hemoglobin Concent 31.6 L, Red Cell Distribution Width 16.1 H, Calcium Level 8.1 L Microbiology Microbiology 12/08/18 Blood Culture - Preliminary, Resulted No growth after 24 hours . All specim... 12/06/18 Blood Culture - Final, Complete Klebsiella Oxytoca 12/06/18 Blood Culture - Final, Complete Klebsiella Oxytoca 12/06/18 Gram Stain - Final, Complete 12/06/18 Wound Culture - Final, Complete Klebsiella Oxytoca 12/06/18 Abscess Culture - Final, Complete Klebsiella Oxytoca MARIPOSA CARRERO MD Dec 10, 2018 08:08
[2018-12-10] MEDS: ATORVASTATIN 20 MG TAB PO SCH (13:26)
[2018-12-10] MEDS: GABAPENTIN 100 MG CAP PO SCH (13:26)
[2018-12-10] MEDS: CEFEPIME HCL 2 GM in D5W MINI-BAG PLUS 50 ML IV SCH (13:27)
[2018-12-10 14:00] VITALS: BP 120/65
--- NOTE | 2018-12-10 17:15 | IPN ---
DATE: 12/10/2018 SUBJECTIVE: Patient was seen and examined this morning during dialysis. He currently has no new complaints. He remains status post excision/debridement of the right upper extremity forearm abscess and hematoma, day 3 per vascular surgery. There have been no adverse events reported overnight. He has gram-negative bacteremia, culture positive for klebsiella. He has been receiving hemodialysis through his right chest wall catheter; however, access was attempted via his right arm fistula; however, it is still immature, and dialysis is currently being run through his right chest wall catheter. OBJECTIVE: VITAL SIGNS: Temperature 96.8, pulse 88, respiratory rate 20, blood pressure 125/64, pulse oximetry 99% on room air. GENERAL: Patient is awake, alert, oriented. He does not appear in any acute distress. He is lying in bed, currently in hemodialysis room. CARDIOVASCULAR: Normal S1, S2, irregularly irregular rhythm with a normal rate. No clicks, rubs, or murmurs. He has a right chest wall hemodialysis catheter in place, which is currently accessed. HEENT: Atraumatic, normocephalic. He has a right lens opacity consistent with cataract. His trachea is midline. He has poor dentition. RESPIRATORY: Clear breath sounds bilaterally. No wheezes, rales, or rhonchi. Good air entry. ABDOMEN: Morbidly obese, soft abdomen, nontender to palpation. Positive bowel sounds throughout. EXTREMITIES: Transmetatarsal amputation of the left foot with a right-sided upper extremity chronic ulcer. He is status post debridement and evacuation of abscess and hematoma. He is currently bandaged. He has a right chest wall hemodialysis catheter in place, currently accessed. There is mild trace edema in bilateral lower extremities. NEUROLOGIC: No focal neurologic deficits noted. PSYCHIATRIC: Mood and affect appear appropriate. LABORATORY DATA: Hematology: White blood cells 8.7, hemoglobin 9.5, hematocrit 30.1, platelet count 153. Chemistries: Sodium 138, potassium 4.1, chloride 103, carbon dioxide 25, BUN 62, creatinine 7.3, fasting glucose 131. Calcium 8.1, phosphorus 5.1, magnesium 2.2. ASSESSMENT AND PLAN: 1. End-stage renal disease, on hemodialysis Thursday, Thursday, Thursday: Patient is currently receiving hemodialysis today. He has a right chest wall catheter, which is currently in use. Patient previously had a right upper extremity fistula. This had formed an abscess. Was drained by vascular surgery. The fistula was ligated and access was in the upper right extremity. The fistula still appears to be immature and was attempted access today, however, was unable. The patient will continue to receive hemodialysis through his right chest wall catheter. Given the patient has gram-negative bacteremia, it would be suitable to remove the tunneled hemodialysis catheter in right chest wall and access the fistula as soon as possible. This is being managed by vascular surgery. 2. 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 He does follow with Dr. Benjamin as outpatient. He is status post debridement day 3 for his right arm fistula abscess per Dr. Tate of vascular surgery. He has been culture-positive for Klebsiella oxytoca, which has sensitivities to cefepime, which is currently receiving after dialysis. He will receive 2 grams of cefepime today after dialysis. Regarding patient's right tunneled hemodialysis catheter, plan is to remove as soon as patient's right arm fistula is accessible. 3. Gram-negative bacteremia, culture positive for Klebsiella oxytoca. Patient has gram-negative bacteremia culture positive for Klebsiella oxytoca. He will receive cefepime 2 grams after dialysis today. As an outpatient he will likely need extended antibiotic course, in which case he will receive the antibiotics after dialysis on his normal Thursday, Thursday, Thursday schedule. My faculty preceptor for this patient encounter was physically present during the encounter and was fully available. All aspects of the patient interview, examination, medical decision making process, and medical care plan development were reviewed and approved by the faculty preceptor. The faculty preceptor is aware and concurs with the plan as stated in the body of this note and will attest to such by his/her co-signature. NOM[facility]
[2018-12-10] MEDS: WARFARIN SOD 4 MG TAB PO SCH (20:40)
[2018-12-10 22:00] VITALS: BP 131/78
[2018-12-11 06:00] VITALS: BP 115/51
[2018-12-11 06:21] LABS: HEMATOCRIT 29.3 % (42.0-52.0); HEMOGLOBIN 9.4 g/dl (13.5-17.5); MEAN CORPUSCULAR HEMOGLOBIN 32.1 pg (27.0-33.0); MEAN CORPUSCULAR HGB CONC 32.1 g/dl (32.0-36.5); PLATELET COUNT, AUTOMATED 150 10^3/uL (150-450); RED BLOOD COUNT 2.93 10^6/uL (4.30-6.10)
[2018-12-11 06:44] LABS: ALBUMIN 2.8 GM/DL (3.2-5.2); CALCIUM LEVEL 8.2 MG/DL (8.8-10.2); CREATININE FOR GFR 5.97 MG/DL (0.70-1.30); GLOMERULAR FILTRATION RATE 12.1 (>42); PHOSPHORUS LEVEL 4.1 MG/DL (2.5-4.9); POTASSIUM SERUM 4.1 MEQ/L (3.5-5.1)
--- NOTE | 2018-12-11 07:20 | IPNPDOC ---
Date Seen The patient was seen on 12/11/18. Progress Note SUBJECTIVE: Pt received permcath yesterday at dialysis. repeat blood cx negative. on iv cefepime. no fever, chills. c/o fatigue and generalized weakness. no sob, chest pain, pressure, tightness, dizziness, lightheadedness. eating well. OBJECTIVE: Physical Examination VITALS: PLS SEE BELOW General Appearance: Morbidly obese, lying in bed, fluent speech, face is symmetric, no respiratory distress or conversational dyspnea HEENT: He has clouding of the right cornea, left pupil is reactive. No jugular venous distention (JVD). moist mucus membranes poor dentition permcath. Lungs with decreased breath sounds, clear. no wheezing rales or rhonchi Heart: Regular rhythm. No murmur. Abdomen: Obese. Nontender. No masses. soft (+) bs x 4 quadrants. no rebound, guarding EXT: Trace peripheral edema. His right forearm is dressed. LABORATORY DATA, IMAGING STUDIES, MICROBIOLOGY: PLS SEE BELOW DATE OF PROCEDURE: 12/06/18 PREPROCEDURE DIAGNOSES: 1. Right upper extremity chronic ulcer 2. Right upper extremity abscess POSTPROCEDURE DIAGNOSES: Same. PROCEDURE: 1. Excisional debridement right upper extremity chronic ulcer, 10 cm debrided of skin, subcutaneous tissue. 2. Excisional debridement right upper extremity abscess cavity, 14 cm debrided of skin, subcutaneous tissue. 3. Ligation of proximal superficial veins 2 SURGEON: Kath Mattson MD ASSESSMENT AND PLAN 73-year-old gentleman with end-stage renal disease,on hemodialysis on Thursday, Thursday, Thursday, hyperlipidemia, neuropathy,diabetes mellitus type 2, morbid obesity, and history of ligation radiocephalic AV fistula due to chronic ulceration and bleeds with Coumadin therapy, now with superficial skin bleeding around this chronic ulcer as well as an abscess near the surgical incision from ligation of his AV fistula. RUE forearm abscess, hematoma, chronic ulcer. He is 1 month s/p ligation of RUE forearm radial cephalic AVF due to bleeding from chronic ulcer and creation of new RUE brachial cephalic AVF. 12/06/18 vascular surgery s/p Excisional debridement right upper extremity chronic ulcer, 10 cm debrided of skin, subcutaneous tissue. s/p Excisional debridement right upper extremity abscess cavity, 14 cm debrided of skin, subcutaneous tissue. s/p Ligation of proximal superficial veins 2 -blood cx: klebsiella on iv cefepime. - Per Vascular surgery, "His new RUE brachial cephalic AVF was cannulated for the first time today, but his cannulation was not sustainable for long due to patient movement and fidgeting. She had to then use the catheter. D/w Dr Rodriguez yesterday about possibly removing the permcath due to positive blood cultures, and he felt we could hold off since new cultures are negative, and then today we discussed it again and we were both hopeful that the new brachcephalic AVF might be mature enough for cannulation. intelligence director felt it would be worth while to try again. We will leave the permcath in for now since repeat cultures are negative and he is HD stable, doing well, and is going to be on at least 4 weeks of antibiotics, but if he shows signs of deterioration we would discontinue it at once. Our hope is that we can get successfully use his new fistula and then we don't need another catheter, but will follow closely." Klebsiella bacteremia due to infected dialysis graft -cefepime End-stage renal disease, on hemodialysis Thursday, Thursday, Thursday. -managed by nephrology Hyperlipidemia. -on lipitor Neuropathy. -complicating care Diabetes mellitus, type 2. -consistent carbs renal diet -sliding scale Morbid obesity.BMI 43 -complicating care -h/o elisha Metabolic Syndrome -morbid obesity -hyperlipidemia -complicating care Hypertension. -on metoprolol Coronary artery disease. -on lipitor and metoprolol Gastroesophageal reflux disease. Atrial fibrillation. -on metoprolol for rate control -on coumadin for anticoagulation Obstructive sleep apnea. -cpap qhs VS, I&O, 24H, Fishbone Vital Signs/I&O Vital Signs Date Time Temp Pulse Resp B/P (MAP) Pulse Ox O2 Delivery O2 Flow Rate FiO2 12/11/18 06:00 97.4 59 17 115/51 (72) 98 12/07/18 06:00 2.0 12/06/18 11:01 Room Air I&O- Last 24 Hours up to 6 AM 12/11/18 06:00 Intake Total 1900 ml Output Total 4500 ml Balance -2600 ml Laboratory Data 24H LABS Laboratory Tests 2 12/10/18 13:04: Bedside Glucose (Misc Panel) 92 12/10/18 16:53: Bedside Glucose (Misc Panel) 151H 12/11/18 05:58: Nucleated Red Blood Cells % (auto) 0.4H, Blood Urea Nitrogen 44H, Creatinine 5.97H, Sodium Level 137, Potassium Level 4.1, Chloride Level 104, Carbon Dioxide Level 24, Anion Gap 9, Glomerular Filtration Rate 12.1L, Calcium Level 8.2L, Phosphorus Level 4.1, Albumin 2.8L CBC/BMP Laboratory Tests 12/11/18 05:58 Red Blood Count 2.93 L, Mean Corpuscular Volume 100.0 H, Mean Corpuscular Hemoglobin 32.1, Mean Corpuscular Hemoglobin Concent 32.1, Red Cell Distribution Width 16.3 H, Anion Gap 9 Microbiology Microbiology 12/10/18 Blood Culture, Received Pending 12/10/18 Blood Culture, Received Pending 12/08/18 Blood Culture - Preliminary, Resulted No Growth after 48 hours. All Specime... 12/06/18 Blood Culture - Final, Complete Klebsiella Oxytoca 12/06/18 Blood Culture - Final, Complete Klebsiella Oxytoca 12/06/18 Gram Stain - Final, Complete 12/06/18 Wound Culture - Final, Complete Klebsiella Oxytoca 12/06/18 Abscess Culture - Final, Complete Klebsiella Oxytoca MARIPOSA CARRERO MD Dec 11, 2018 07:20
[2018-12-11] MEDS: HumaLOG INSULIN (NovoLOG) PER UNIT SC SCH ×4 (07:27→21:00)
[2018-12-11] MEDS: IPRATROPIUM 0.5MG/ALBUTEROL 2.5MG INH SOL UD 3ML (DUONEB)(J7620) NEB SCH ×4 (08:08→20:59)
[2018-12-11] MEDS: NEPHRO-VIT TAB (NEPHROCAPS) PO SCH (08:38)
[2018-12-11] MEDS: OYSTER SHELL CALCIUM 500 MG TAB PO SCH (08:38)
[2018-12-11] MEDS: METOPROLOL TART 25 MG TABLET PO SCH ×2 (08:39→21:04)
--- NOTE | 2018-12-11 10:43 | IPN ---
DATE OF VISIT: 12/11/2018 Mr. Lobo is seen this morning on his bedside. He had dialysis yesterday via his Perma-Cath. His right upper arm AV fistula could not be used. He was admitted with infected right forearm fistula and also had Klebsiella bacteremia. The patient is afebrile and remains on antibiotic. He denies any nausea, vomiting, dyspnea or chest pain. PHYSICAL EXAMINATION: Temperature 97.4 degrees Fahrenheit, heart rate 60 per minute and respiratory rate 17 per minute. Blood pressure 115/50 mmHg and oxygen saturation 98% on room air. His head is atraumatic. Neck supple and jugular venous distention (JVD) difficult to be assessed. Heart sounds regular and lungs with diminished breath sounds. Abdomen obese, soft and nontender and bowel sounds are normal. Extremities have no cyanosis or clubbing. Right forearm is wrapped in dressing. Right upper arm AV fistula is patent. Neurologically he is at his baseline mentation without a focal deficit. Today's labs show WBC count 11.0, hemoglobin 9.4 and hematocrit 29.3. Platelets 150. Sodium 137, potassium 4.1, CO2 24, BUN 44 and creatinine 5.97. Albumin is 2.8. PROBLEMS: 1. End-stage renal disease. The patient was dialyzed yesterday and next dialysis will be scheduled for Thursday. His electrolytes are within normal range and volume status is well-compensated. 2. Klebsiella bacteremia and infected AV fistula. The patient had his fistula excised and cleaned. He is afebrile and remains on cefepime 2 grams every 48 hours. He does have a Perma-Cath and I am concerned about possibility of recurrent bacteremia as his catheter was not changed. We will try to use his fistula next week again and see if that works. If his fistula does not work then he will probably need balloon angioplasty and exchange of his Perma-Cath. 3. Anemia. At present his anemia is stable and does not need any urgent intervention. He remains on Aranesp with dialysis. 4. Peripheral vascular disease, status post transmetatarsal amputation of left foot. His wound is healing and the patient is doing well. I do not feel that his left foot wound is the source of his infection.
[2018-12-11] MEDS: ATORVASTATIN 20 MG TAB PO SCH (11:50)
[2018-12-11] MEDS: GABAPENTIN 100 MG CAP PO SCH (11:50)
--- NOTE | 2018-12-11 13:10 | IPNPDOC ---
Date Seen The patient was seen on 12/11/18. Progress Note Mr Yamil is a very pleasant 73yo gentleman POD #5 s/p excisional debridement RUE forearm abscess, hematoma, chronic ulcer. He is 1 month s/p ligation of RUE forearm radial cephalic AVF due to bleeding from chronic ulcer and creation of new RUE brachial cephalic AVF. He did well overnight, no significant pain reported, and he says it is a little less itchy. Dressing change done with RN today with hydrofera blue rope, foam, coban, and it is starting to look much better. The swelling in the hand and forearm is improved with compression and washout of abscess. Radial pulse RUE 2+. The proximal incision where we ligated some superficial veins is closed and intact with steristrips. The incision from recent brachial cephalic AVF creation is still well healed, as is the distal incision from ligation of previous radial cephalic AVF. The new AVF has a great thrill, but is a little firmness in the tissues overlying the recent infiltration during dialysis. I examined it under US yesterday, and it is ~7-8mm diameter already and <1cm deep throughout the upper arm. However, it is a little tortuous distally near the AV anastomosis. This may be able to be straightened a bit with angioplasty, but if resistent, the tortuosity may need to be dealt with surgically. Thoroughly cleaned his permcath in dialysis yesterday- he scratches at it, and has several superficial excoriation at the skin around the exit site. I was not able to milk any pus or drainage from the incision, and I think it may just be a reaction to the chlorahexadine tegaderm dressing. It looks better today since we tried gauze/tegarderm instead of chlroahexadine dressing. He may have a sensitivity to the chlorahexadine. With positive blood cultures, best option is to remove permcath, give him a line holiday, and then replace it. However, this may not be as simple as it sounds for this patient. With his pacemaker on the left and recent blood cultures positive (new cultures negative), he will need at least 4 weeks of antibiotics, which will help with both the pacing wires and the permcath. Having the pacing wires through the left subclavian vein makes a LIJ permcath potentially more problematic. We are also concerned about possible issue replacing the RIJ permcath if he has scarred down the RIJ, although this is still the best option if we have to remove it and replace it. He is HD stable, AF, and removing the source of infection L forearm/new blood cultures negative makes keeping the permcath for now reasonable. This can be a daily clinical decision. Dr Benjamin and I spoke about it, and he agrees with this. But he also agrees that any clinical deterioration may mandate catheter removal. Ideally, we would just leave it out and use his new brachial cephalic AVF but I don't think it it is quite ready for use. Will see how he does. After infiltration resolves, will need fgram +/- angioplasty and if that doesnt help, maybe surgical intervention. Plan: Continue dressing changes LUE forearm with hydrofera blue rope, foam, coban, and avoid compression antecubital crease with coban so we do not limit inflow to new AVF upper arm. Pt will need follow up at the wound care center for LUE at discharge. Continue antibiotics and continue dialysis with permcath for now. VS, I&O, 24H, Fishbone Vital Signs/I&O Vital Signs Date Time Temp Pulse Resp B/P (MAP) Pulse Ox O2 Delivery O2 Flow Rate FiO2 12/11/18 08:39 59 115/51 12/11/18 06:00 97.4 17 98 12/07/18 06:00 2.0 12/06/18 11:01 Room Air I&O- Last 24 Hours up to 6 AM 12/11/18 06:00 Intake Total 1900 ml Output Total 4500 ml Balance -2600 ml Laboratory Data 24H LABS Laboratory Tests 2 12/10/18 16:53: Bedside Glucose (Misc Panel) 151H 12/11/18 05:58: Nucleated Red Blood Cells % (auto) 0.4H, Blood Urea Nitrogen 44H, Creatinine 5.97H, Sodium Level 137, Potassium Level 4.1, Chloride Level 104, Carbon Dioxide Level 24, Anion Gap 9, Glomerular Filtration Rate 12.1L, Calcium Level 8.2L, Phosphorus Level 4.1, Albumin 2.8L CBC/BMP Laboratory Tests 12/11/18 05:58 Red Blood Count 2.93 L, Mean Corpuscular Volume 100.0 H, Mean Corpuscular Hemoglobin 32.1, Mean Corpuscular Hemoglobin Concent 32.1, Red Cell Distribution Width 16.3 H, Anion Gap 9 Microbiology Microbiology 12/10/18 Blood Culture, Received Pending 12/10/18 Blood Culture, Received Pending 12/08/18 Blood Culture - Preliminary, Resulted No Growth after 48 hours. All Specime... 12/06/18 Blood Culture - Final, Complete Klebsiella Oxytoca 12/06/18 Blood Culture - Final, Complete Klebsiella Oxytoca 12/06/18 Gram Stain - Final, Complete 12/06/18 Wound Culture - Final, Complete Klebsiella Oxytoca 12/06/18 Abscess Culture - Final, Complete Klebsiella Oxytoca NOAH KAM MD Dec 11, 2018 13:10
[2018-12-11 14:00] VITALS: BP 127/96
[2018-12-11] MEDS: WARFARIN SOD 4 MG TAB PO SCH (21:04)
[2018-12-11 22:00] VITALS: BP 128/74
[2018-12-12 06:00] VITALS: BP 125/75
[2018-12-12 06:35] LABS: HEMATOCRIT 29.8 % (42.0-52.0); HEMOGLOBIN 9.5 g/dl (13.5-17.5); MEAN CORPUSCULAR HEMOGLOBIN 32.3 pg (27.0-33.0); MEAN CORPUSCULAR HGB CONC 31.9 g/dl (32.0-36.5); MEAN CORPUSCULAR VOLUME 101.4 fl (80.0-96.0); PLATELET COUNT, AUTOMATED 162 10^3/uL (150-450); RED BLOOD COUNT 2.94 10^6/uL (4.30-6.10); WHITE BLOOD COUNT 11.2 10^3/uL (4.0-10.0)
[2018-12-12 07:03] LABS: ALBUMIN 2.9 GM/DL (3.2-5.2); CALCIUM LEVEL 8.2 MG/DL (8.8-10.2); CREATININE FOR GFR 7.57 MG/DL (0.70-1.30); GLOMERULAR FILTRATION RATE 9.2 (>42); PHOSPHORUS LEVEL 5.1 MG/DL (2.5-4.9); POTASSIUM SERUM 4.8 MEQ/L (3.5-5.1)
[2018-12-12] MEDS: IPRATROPIUM 0.5MG/ALBUTEROL 2.5MG INH SOL UD 3ML (DUONEB)(J7620) NEB SCH ×4 (08:15→20:43)
[2018-12-12] MEDS: HumaLOG INSULIN (NovoLOG) PER UNIT SC SCH ×4 (08:19→21:00)
[2018-12-12] MEDS: NEPHRO-VIT TAB (NEPHROCAPS) PO SCH (08:20)
[2018-12-12] MEDS: OYSTER SHELL CALCIUM 500 MG TAB PO SCH (08:20)
[2018-12-12] MEDS: METOPROLOL TART 25 MG TABLET PO SCH ×2 (08:21→21:11)
[2018-12-12] MEDS: GABAPENTIN 100 MG CAP PO SCH (12:54)
[2018-12-12] MEDS: CEFEPIME HCL 2 GM in D5W MINI-BAG PLUS 50 ML IV SCH (12:54)
[2018-12-12] MEDS: ATORVASTATIN 20 MG TAB PO SCH (12:54)
--- NOTE | 2018-12-12 13:55 | IPNPDOC ---
Date Seen The patient was seen on 12/12/18. Progress Note Mr Yamil is a very pleasant 73yo gentleman POD #6 s/p excisional debridement RUE forearm abscess, hematoma, chronic ulcer. He is 1 month s/p ligation of RUE forearm radial cephalic AVF due to bleeding from chronic ulcer and creation of new RUE brachial cephalic AVF. He did well overnight, a little intermittent arm pain but not severe, and is feeling good today sitting up eating his lunch at [employer]. Dressing change done with RN today with hydrofera blue foam since we did not have the rope available. The base of the wounds are clean, granulating, and filling in nicely. We covered this with foam, kerlex, coban, and it is starting to look much better. The swelling in the hand and forearm continue to improve with compression and washout of abscess. Radial pulse RUE 2+. The proximal incision where we ligated some superficial veins is closed and intact with steristrips. The incision from recent brachial cephalic AVF creation is still well healed, as is the distal incision from ligation of previous radial cephalic AVF. The new AVF has a great thrill, but is a little firmness in the tissues overlying the recent infiltration during dialysis with some resolving bruising. I examined it under US Thursday, and it is ~7-8mm diameter already and <1cm deep throughout the upper arm. However, it is a little tortuous distally near the AV anastomosis. This may be able to be straightened a bit with angioplasty, but if resistant, the tortuosity may need to be dealt with surgically. His permcath dressing looks better since we switched to dry gauze dressings. It has some minimal serous drainage but it is not so excoriated. He scratches at it, and has several superficial excoriation at the skin around the exit site, but he says it feels better now and seems to be leaving it alone. I was not able to milk any pus or drainage from the incision Thursday in HD, and I think it may just be a reaction to the chlorahexadine tegaderm dressing. It looks better. He may have a sensitivity to the chlorahexadine. With positive blood cultures, best option is to remove permcath, give him a line holiday, and then replace it. However, this may not be as simple as it sounds for this patient. With his pacemaker on the left and recent blood cultures positive (new cultures negative), he will need at least 4 weeks of antibiotics, which will help with preventing reinfection with both the pacing wires and the permcath. Having the pacing wires through the left subclavian vein makes a LIJ permcath potentially more problematic. We are also concerned about possible issue replacing the RIJ permcath if he has scarred down the RIJ, although this is still the best option if we have to remove it and replace it. He is HD stable, AF, and removing the source of infection L forearm/new blood cultures negative makes keeping the permcath for now a reasonable option. This can be a daily clinical decision. Dr Benjamin and I spoke about it, and he agrees with this. But he also agrees that any clinical deterioration may mandate catheter removal. Ideally, we would just leave it out and use his new brachial cephalic AVF but I don't think it it is quite ready for use, especially with recent infiltration. Will see how he does. After infiltration resolves, will need fgram +/- angioplasty and if that doesnt help, maybe surgical intervention. Plan: Continue dressing changes LUE forearm with hydrofera blue rope or foam, foam, coban, and avoid compression antecubital crease with coban so we do not limit inflow to new AVF upper arm. Pt will need follow up at the wound care center for LUE at discharge. Continue antibiotics and continue dialysis with permcath for now. Dr Benjamin will follow the patient starting tomorrow and I discussed this with the patient and his . VS, I&O, 24H, Fishbone Vital Signs/I&O Vital Signs Date Time Temp Pulse Resp B/P (MAP) Pulse Ox O2 Delivery O2 Flow Rate FiO2 12/12/18 08:21 92 125/75 12/12/18 06:00 96.7 18 99 12/07/18 06:00 2.0 12/06/18 11:01 Room Air I&O- Last 24 Hours up to 6 AM 12/12/18 06:00 Intake Total 2350 ml Output Total 0 ml Balance 2350 ml Laboratory Data 24H LABS Laboratory Tests 2 12/11/18 20:45: Bedside Glucose (Misc Panel) 162H 12/12/18 06:12: Nucleated Red Blood Cells % (auto) 0.3H, Blood Urea Nitrogen 58H, Creatinine 7.57H, Sodium Level 138, Potassium Level 4.8, Chloride Level 104, Carbon Dioxide Level 23, Anion Gap 11, Glomerular Filtration Rate 9.2L, Calcium Level 8.2L, Phosphorus Level 5.1#H, Albumin 2.9L 12/12/18 11:57: Bedside Glucose (Misc Panel) 133H CBC/BMP Laboratory Tests 12/12/18 06:12 Red Blood Count 2.94 L, Mean Corpuscular Volume 101.4 H, Mean Corpuscular Hemoglobin 32.3, Mean Corpuscular Hemoglobin Concent 31.9 L, Red Cell Distribution Width 16.3 H, Anion Gap 11 Microbiology Microbiology 12/10/18 Blood Culture - Preliminary, Resulted No growth after 24 hours . All specim... 12/10/18 Blood Culture - Preliminary, Resulted No growth after 24 hours . All specim... 12/08/18 Blood Culture - Preliminary, Resulted No Growth after 72 hours. All specime... 12/06/18 Blood Culture - Final, Complete Klebsiella Oxytoca 12/06/18 Blood Culture - Final, Complete Klebsiella Oxytoca 12/06/18 Gram Stain - Final, Complete 12/06/18 Wound Culture - Final, Complete Klebsiella Oxytoca 12/06/18 Abscess Culture - Final, Complete Klebsiella Oxytoca NOAH KAM MD Dec 12, 2018 13:55
[2018-12-12 14:00] VITALS: BP_SYST 125; BP_SYST 136; BP_DIAS 65; BP_DIAS 75
--- NOTE | 2018-12-12 18:04 | IPNPDOC ---
Subjective Date Seen The patient was seen on 12/12/18. Subjective Chief Complaint/HPI f/u infected right forearm dialysis fistula Events since last encounter Pt seen and examined at bedside. Pt feeling tired today with some aching in the right forearm but otherwise denies fever, chills, CP, SOB, N/V/D or leg pain. Objective Physical Examination General Exam: Positive: Alert, Cooperative, No Acute Distress, Other (tired appearing) Chest Exam: Positive: Clear to auscultation, Normal air movement Heart Exam: Positive: Rate Normal, Irregular Rhythm, Murmurs (systolic ) Abdomen Exam: Positive: Normal bowel sounds, Soft; Negative: Tenderness Extremity Exam: Positive: Edema (trace lower extremity edema in RLE and 1+ LE edema in LLE), Other (right forearm wrapped in bandage which appears clean, dry and intact) Neuro Exam: Positive: Normal Speech, Other (no focal deficits) Psych Exam: Positive: Mental status NL, Mood NL, Oriented x 3 Assessment /Plan Assessment 73 y/o with infected right forearm dialysis fistula Plan/VTE VTE Prophylaxis Ordered?: Yes Plan RUE forearm abscess, hematoma, chronic ulcer. He is 1 month s/p ligation of RUE forearm radial cephalic AVF due to bleeding from chronic ulcer and creation of new RUE brachial cephalic AVF. 12/06/18 vascular surgery s/p Excisional debridement right upper extremity chronic ulcer, 10 cm debrided of skin, subcutaneous tissue. s/p Excisional debridement right upper extremity abscess cavity, 14 cm debrided of skin, subcutaneous tissue. s/p Ligation of proximal superficial veins 2 -blood cx: klebsiella on iv cefepime. -Plan to attempt to use new upper arm fistula tomorrow in dialysis Klebsiella bacteremia due to infected dialysis graft -cont. cefepime End-stage renal disease, on hemodialysis Thursday, Thursday, Thursday. -managed by nephrology -dialysis tomorrow Hyperlipidemia. -on lipitor Neuropathy. -complicating care Diabetes mellitus, type 2. -consistent carbs renal diet -sliding scale Morbid obesity.BMI 43 -complicating care -h/o elisha Metabolic Syndrome -morbid obesity -hyperlipidemia -complicating care Hypertension. -on metoprolol Coronary artery disease. -on lipitor and metoprolol Gastroesophageal reflux disease. Atrial fibrillation. -on metoprolol for rate control -on coumadin for anticoagulation Obstructive sleep apnea. -cpap qhs DVT PPX: on coumadin Disposition pending clinical improvement VS, I&O, 24H, Fishbone Vital Signs/I&O Vital Signs Date Time Temp Pulse Resp B/P (MAP) Pulse Ox O2 Delivery O2 Flow Rate FiO2 12/12/18 14:00 96.9 59 18 136/65 (88) 96 12/07/18 06:00 2.0 12/06/18 11:01 Room Air I&O- Last 24 Hours up to 6 AM 12/12/18 06:00 Intake Total 2350 ml Output Total 0 ml Balance 2350 ml Laboratory Data 24H LABS Laboratory Tests 2 12/11/18 20:45: Bedside Glucose (Misc Panel) 162H 12/12/18 06:12: Nucleated Red Blood Cells % (auto) 0.3H, Blood Urea Nitrogen 58H, Creatinine 7.57H, Sodium Level 138, Potassium Level 4.8, Chloride Level 104, Carbon Dioxide Level 23, Anion Gap 11, Glomerular Filtration Rate 9.2L, Calcium Level 8.2L, Phosphorus Level 5.1#H, Albumin 2.9L 12/12/18 11:57: Bedside Glucose (Misc Panel) 133H 12/12/18 16:48: Bedside Glucose (Misc Panel) 203H CBC/BMP Laboratory Tests 12/12/18 06:12 Red Blood Count 2.94 L, Mean Corpuscular Volume 101.4 H, Mean Corpuscular Hemoglobin 32.3, Mean Corpuscular Hemoglobin Concent 31.9 L, Red Cell Distribution Width 16.3 H, Anion Gap 11 Microbiology Microbiology 12/10/18 Blood Culture - Preliminary, Resulted No Growth after 48 hours. All Specime... 12/10/18 Blood Culture - Preliminary, Resulted No Growth after 48 hours. All Specime... 12/08/18 Blood Culture - Preliminary, Resulted No Growth after 72 hours. All specime... 12/06/18 Blood Culture - Final, Complete Klebsiella Oxytoca 12/06/18 Blood Culture - Final, Complete Klebsiella Oxytoca 12/06/18 Gram Stain - Final, Complete 12/06/18 Wound Culture - Final, Complete Klebsiella Oxytoca 12/06/18 Abscess Culture - Final, Complete Klebsiella Oxytoca PEYMAN JIANG MD Dec 12, 2018 18:04
[2018-12-12] MEDS: ACETAMINOPHEN TAB 650MG DOSE (2X325MG) PO PRN (19:53)
[2018-12-12] MEDS: WARFARIN SOD 4 MG TAB PO SCH (21:10)
[2018-12-12 22:00] VITALS: BP 154/81
[2018-12-13 06:00] VITALS: BP 141/80
[2018-12-13 06:28] LABS: HEMATOCRIT 28.8 % (42.0-52.0); HEMOGLOBIN 9.2 g/dl (13.5-17.5); MEAN CORPUSCULAR HEMOGLOBIN 31.7 pg (27.0-33.0); MEAN CORPUSCULAR HGB CONC 31.9 g/dl (32.0-36.5); MEAN CORPUSCULAR VOLUME 99.3 fl (80.0-96.0); PLATELET COUNT, AUTOMATED 181 10^3/uL (150-450)
[2018-12-13 06:56] LABS: ALBUMIN 2.8 GM/DL (3.2-5.2); CALCIUM LEVEL 8.2 MG/DL (8.8-10.2); CREATININE FOR GFR 8.82 MG/DL (0.70-1.30); GLOMERULAR FILTRATION RATE 7.7 (>42); PHOSPHORUS LEVEL 5.5 MG/DL (2.5-4.9); POTASSIUM SERUM 5.1 MEQ/L (3.5-5.1)
[2018-12-13] MEDS: IPRATROPIUM 0.5MG/ALBUTEROL 2.5MG INH SOL UD 3ML (DUONEB)(J7620) NEB SCH ×4 (07:16→20:00)
[2018-12-13] MEDS: HumaLOG INSULIN (NovoLOG) PER UNIT SC SCH ×4 (07:51→21:00)
[2018-12-13] MEDS: OYSTER SHELL CALCIUM 500 MG TAB PO SCH (07:51)
[2018-12-13] MEDS: METOPROLOL TART 25 MG TABLET PO SCH ×2 (07:52→21:56)
--- NOTE | 2018-12-13 07:53 | IPN ---
DATE: 12/12/2018 Mr. Lobo IS seen this afternoon on his bedside. I came earlier to see him, however, he was sleeping. He is now awake and sitting at the edge of the bed. He denies any fever, chills, nausea, vomiting, dyspnea or chest pain. His right forearm wound is covered with dressing. PHYSICAL EXAMINATION: Temperature 96.7 degrees Fahrenheit, heart rate 92 per minute and respiratory rate 18 per minute. Blood pressure 125/75 mmHg and oxygen saturation 99% on room air. Head is atraumatic. Neck: Supple and without JVD or thyroid enlargement. He has no thrush or ulcers. His heart sounds are tachycardiac and irregular in rhythm. Lungs: Have diminished breath sounds bilaterally. Abdomen: Obese, soft and nontender and bowel sounds are present. Extremities: Without any cyanosis or clubbing. Right forearm wound is covered with dressing. His right upper arm fistula is patent. His left foot stump is also wrapped in dressing. Neurologically he is at his baseline mentation without a focal deficit. Today's labs show WBC count 11.2, hemoglobin 9.5, and hematocrit 29.8. Platelets 162. Sodium 138, potassium 4.8, CO2 23, BUN 58 and creatinine 7.57. Glucose 131, calcium 8.2 and phosphorus 5.1. PROBLEMS: 1. End-stage renal disease. The patient is regularly dialyzed on Thursday, Thursday and Thursday schedule. He was last dialyzed on Thursday and will be scheduled for next dialysis tomorrow. His dialysis fistula did not work very well and we are currently using Perma-Cath. His electrolytes are normal and volume status is reasonably well-compensated. 2. Klebsiella bacteremia, most likely related to infected AV fistula for which he already had surgery and wound has been the debrided and cleaned. He still has a Perma-Cath with mild leukocytosis. I am concerned about possibility of Perma-Cath infection. We will try again tomorrow to use his AV fistula and if it works then we can probably try to get rid of the Perma-Cath. If not he is likely to require a new Perma-Cath after a few days after removal of this one 3. Anemia. His anemia is stable and does not need any urgent intervention. The patient will continue with Aranesp once a week with dialysis. 4. Atrial fibrillation. His ventricular rate is moderately well-controlled. His INR was 1.54 a couple of days ago. No changes are being made today. 5. Congestive heart failure. His volume status is very well compensated at present and we will continue to manage his CHF with dialysis. Will try to remove about 3-4 liters of fluid with next dialysis tomorrow.
[2018-12-13 09:30] LABS: INR 1.62
[2018-12-13] MEDS: NEPHRO-VIT TAB (NEPHROCAPS) PO SCH (10:45)
[2018-12-13] MEDS: hydrOXYzine 25 MG TAB PO PRN ×2 (10:45→21:53)
[2018-12-13 11:01] LABS: C REACTIVE PROTEIN QUANTITATIV 6.83 MG/DL (0.00-0.30)
[2018-12-13] MEDS ORDERED: HEPARIN 1,000 UNITS/ML 10ML VIAL (FOR RADIOLOGY& DIALYSIS ONLY) XX ONE (11:15)
--- NOTE | 2018-12-13 15:21 | IPN ---
DATE: 12/13/2018 Mr. Lobo is seen this morning on his bedside. He is sitting at the edge of bed and denies any complaints. There is no fever, chills, nausea or vomiting. His right forearm surgical wound is covered with dressing. His right upper arm arteriovenous fistula is patent. Patient also has a Perma-Cath on right upper chest. PHYSICAL EXAMINATION: Temperature 96.7 degrees Fahrenheit, heart rate 98 per minute and respiratory rate 17 per minute. Blood pressure 140/80 mmHg and oxygen saturation 100% on room air. Head is atraumatic. Neck is supple and jugular venous distention (JVD) difficult to be assessed. Right-sided upper chest internal jugular vein dialysis catheter is in place. Heart sounds are tachycardiac and irregular in rhythm. Lungs with diminished breath sounds bilaterally. Abdomen obese, soft and nontender and bowel sounds are normal. Extremities have no cyanosis or clubbing. Right forearm wound is covered with dressing. Right upper arm AV fistula is patent. Neurologically he is awake, alert and oriented times three. Today's labs show WBC count 11.0, hemoglobin 9.2 and hematocrit 28.8. Platelets 181. Sodium 136, potassium 5.1, CO2 21, BUN 72 and creatinine 8.82. Calcium is 8.2 and phosphorus 5.5. A C-reactive protein is 6.83. INR is 1.62. PROBLEMS 1. End-stage renal disease. Patient is regularly dialyzed on Thursday, Thursday, Thursday schedule. He was last dialyzed on Thursday. We are going to try to dialyze him later today, but more likely, he is going to be dialyzed tomorrow morning due to emergencies and too many patients in need for dialysis in the hospital. His oxygen saturation is 100% on room air and electrolytes are stable, so I do not feel that there is any emergent need for dialysis today. 2. Klebsiella bacteremia. Patient is afebrile, though his white cell count remains at 11. He has a Perma-Cath, which could be infected due to bacteremia. His fistula and right upper arm did not work when we attempted last week. We are going to give it rest and continue with antibiotic for now. Vascular surgery has advised to continue with current catheter and they do not feel that catheter needs to be changed as patient is afebrile. 3. Anemia. Anemia has been stable and we will continue to monitor closely. He receives Aranesp once a week with dialysis. 4. Atrial fibrillation. His ventricular rate is moderately well-controlled. He remains on anticoagulation. INR is slightly below therapeutic and his Coumadin is being adjusted by the hospitalist service.
[2018-12-13] MEDS: ATORVASTATIN 20 MG TAB PO SCH (17:19)
[2018-12-13] MEDS: GABAPENTIN 100 MG CAP PO SCH (17:19)
--- NOTE | 2018-12-13 18:37 | IPNPDOC ---
Subjective Date Seen The patient was seen on 12/13/18. Subjective Chief Complaint/HPI Follow-up infected right forearm fistula Events since last encounter Patient seen and examined at bedside. The point of cough but denies fevers, chills, chest pain, difficulty breathing, nausea, vomiting, diarrhea. Patient still complains of aching in her right forearm Objective Physical Examination General Exam: Positive: Alert, Cooperative, No Acute Distress, Other (sitting up in bed talking on the phone) Chest Exam: Positive: Clear to auscultation, Normal air movement Heart Exam: Positive: Rate Normal, Irregular Rhythm, Murmurs (systolic ) Abdomen Exam: Positive: Normal bowel sounds, Soft; Negative: Tenderness Extremity Exam: Positive: Edema (trace lower extremity edema in RLE and 1+ LE edema in LLE), Other (right forearm wrapped in bandage which appears clean, dry and intact) Neuro Exam: Positive: Normal Speech, Other (no focal deficits) Psych Exam: Positive: Mental status NL, Mood NL, Oriented x 3 Assessment /Plan Assessment 73-year-old male with infected right forearm fistula Plan/VTE VTE Prophylaxis Ordered?: Yes Plan #RUE forearm abscess, hematoma, chronic ulcer. -He is 1 month s/p ligation of RUE forearm radial cephalic AVF due to bleeding from chronic ulcer and creation of new RUE brachial cephalic AVF.12/06/18 vascula r surgery -s/p Excisional debridement right upper extremity chronic ulcer, 10 cm debrided of skin, subcutaneous tissue. -s/p Excisional debridement right upper extremity abscess cavity, 14 cm debri ded of skin, subcutaneous tissue. -s/p Ligation of proximal superficial veins 2 -blood cx: klebsiella on iv cefepime. -Plan to continue to use permacath and give new upper arm fistula a rest -will touch base with renal regarding plan for discharge given not accessing upper arm fistula Klebsiella bacteremia due to infected dialysis graft -cont. cefepime End-stage renal disease, on hemodialysis Thursday, Thursday, Thursday. -managed by nephrology -dialysis likely tomorrow as he did not have it today per notes Hyperlipidemia. -on lipitor Neuropathy. -complicating care Diabetes mellitus, type 2. -consistent carbs renal diet -sliding scale Morbid obesity.BMI 43 -complicating care -h/o elisha Metabolic Syndrome -morbid obesity -hyperlipidemia -complicating care Hypertension. -on metoprolol Coronary artery disease. -on lipitor and metoprolol Gastroesophageal reflux disease. Atrial fibrillation. -on metoprolol for rate control -on coumadin for anticoagulation -INR subtherapeutic so will go up on coumadin to 6mg daily until therapeutic Obstructive sleep apnea. 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 plan VS, I&O, 24H, Fishbone Vital Signs/I&O Vital Signs Date Time Temp Pulse Resp B/P (MAP) Pulse Ox O2 Delivery O2 Flow Rate FiO2 12/13/18 07:52 98 141/80 12/13/18 06:00 96.7 17 100 12/07/18 06:00 2.0 I&O- Last 24 Hours up to 6 AM 12/13/18 06:00 Intake Total 2360 ml Output Total 0 ml Balance 2360 ml Laboratory Data 24H LABS Laboratory Tests 2 12/12/18 20:46: Bedside Glucose (Misc Panel) 149H 12/13/18 05:49: Prothrombin Time 19.0H, Prothromb Time International Ratio 1.62 12/13/18 05:50: Nucleated Red Blood Cells % (auto) 0.3H, Blood Urea Nitrogen 72H, Creatinine 8.82*H, Sodium Level 136, Potassium Level 5.1, Chloride Level 102, Carbon Dioxide Level 21, Anion Gap 13, Glomerular Filtration Rate 7.7L, Calcium Level 8.2L, Phosphorus Level 5.5H, C-Reactive Protein, Quantitative 6.83H, Albumin 2.8L CBC/BMP Laboratory Tests 12/13/18 05:50 Red Blood Count 2.90 L, Mean Corpuscular Volume 99.3 H, Mean Corpuscular Hemoglobin 31.7, Mean Corpuscular Hemoglobin Concent 31.9 L, Red Cell Distribution Width 16.7 H, Anion Gap 13 Microbiology Microbiology 12/10/18 Blood Culture - Preliminary, Resulted No Growth after 72 hours. All specime... 12/10/18 Blood Culture - Preliminary, Resulted No Growth after 72 hours. All specime... 12/08/18 Blood Culture - Final, Complete NO GROWTH AFTER 5 DAYS 12/06/18 Blood Culture - Final, Complete Klebsiella Oxytoca 12/06/18 Blood Culture - Final, Complete Klebsiella Oxytoca 12/06/18 Gram Stain - Final, Complete 12/06/18 Wound Culture - Final, Complete Klebsiella Oxytoca 12/06/18 Abscess Culture - Final, Complete Klebsiella Oxytoca PEYMAN JIANG MD Dec 13, 2018 18:37
[2018-12-13] MEDS: WARFARIN SOD 3 MG TAB PO SCH (21:53)
[2018-12-13] MEDS: ACETAMINOPHEN TAB 650MG DOSE (2X325MG) PO PRN (21:56)
[2018-12-13 22:00] VITALS: BP 119/60
[2018-12-13] MEDS: BENZONATATE 100 MG CAP PO PRN (23:03)
[2018-12-14] MEDS: hydrOXYzine 25 MG TAB PO PRN ×2 (04:04→22:01)
[2018-12-14] MEDS: BENZONATATE 100 MG CAP PO PRN ×3 (04:04→22:01)
[2018-12-14 06:00] VITALS: BP 105/57
[2018-12-14 06:26] LABS: HEMATOCRIT 29.5 % (42.0-52.0); HEMOGLOBIN 9.3 g/dl (13.5-17.5); MEAN CORPUSCULAR HEMOGLOBIN 32.4 pg (27.0-33.0); MEAN CORPUSCULAR HGB CONC 31.5 g/dl (32.0-36.5); MEAN CORPUSCULAR VOLUME 102.8 fl (80.0-96.0); PLATELET COUNT, AUTOMATED 142 10^3/uL (150-450); RED BLOOD COUNT 2.87 10^6/uL (4.30-6.10)
[2018-12-14 06:44] LABS: INR 1.66; PROTHROMBIN TIME 19.4 SECONDS (11.8-14.0)
[2018-12-14 06:52] LABS: ALBUMIN 2.7 GM/DL (3.2-5.2); CALCIUM LEVEL 8.4 MG/DL (8.8-10.2); CREATININE FOR GFR 6.54 MG/DL (0.70-1.30); GLOMERULAR FILTRATION RATE 10.9 (>42); PHOSPHORUS LEVEL 4.5 MG/DL (2.5-4.9); POTASSIUM SERUM 4.7 MEQ/L (3.5-5.1)
[2018-12-14] MEDS: IPRATROPIUM 0.5MG/ALBUTEROL 2.5MG INH SOL UD 3ML (DUONEB)(J7620) NEB SCH ×4 (07:08→21:06)
[2018-12-14] MEDS: HumaLOG INSULIN (NovoLOG) PER UNIT SC SCH ×4 (07:53→21:00)
[2018-12-14] MEDS: OYSTER SHELL CALCIUM 500 MG TAB PO SCH (07:54)
[2018-12-14] MEDS: METOPROLOL TART 25 MG TABLET PO SCH ×2 (07:56→21:58)
--- NOTE | 2018-12-14 09:00 | IPNPDOC ---
Date Seen The patient was seen on 12/14/18. Progress Note Vascular Surgery Dr Benjamin. HPI: Mr Yamil is a very pleasant 73yo gentleman POD #8 s/p excisional debridement RUE forearm abscess, hematoma, chronic ulcer. He is 1 month s/p ligation of RUE forearm radial cephalic AVF due to bleeding from chronic ulcer and creation of new RUE brachial cephalic AVF. Spoke with dialysis this Am and it is reported they were unable to use his RUE brachiocephalic fistula yesterday. Denies any fevers, chills, weakness, fatigue, Headache, Chest Pain, Shortness of breath, cough, palpitations, abdominal pain, N/V/D or changes in bowel or bladder habits. PE: GEN: 73yoM, appears stated age. No acute distress. Alert and oriented x 3. HEENT: Normocephalic, atraumatic.Sclera are nonicteric. Conjunctiva without injection. Moist mucous membranes. CHEST: Regular rate and rhythm, +S1, +S2 LUNGS: Clear to auscultation bilaterally. No wheezes, rales, or rhonchi. ABD: Round, soft, non-tender, non-distended. EXT: No lower extremity edema appreciated. dressing intact RUE forearm. Thrill noted over AVF RUE fistula upper arm. SKIN: [place], dry, warm. No rashes. NEURO: Alert and oriented x 3. No focal deficits appreciated. A&P: POD #8 s/p excisional debridement RUE forearm abscess, hematoma, chronic ulcer. Continue dressing changes LUE forearm with hydrofera blue rope or foam, foam, coban, and avoid compression antecubital crease with coban so we do not limit inflow to new AVF upper arm. Pt will need follow up at the wound care center for LUE at discharge. Continue antibiotics. ESRD. continue dialysis with permcath for now. S/P creation of new RUE brachial cephalic AVF 11/03/18. At this point dialysis has not been able to use x [address] Benjamin this AM, would like to try to get the AVF functioning for HD access so that the Permcath can be removed. Tentative plan as per Dr Benjamin is for fistulogram 12/16/18. Klebsiella bacteremia. Patient is afebrile, WBC 10.0 which is trending down. There has been concern re need to remove Permcath. DVT prophylaxis. Pt is on Coumadin. VS, I&O, 24H, Fishbone Vital Signs/I&O Vital Signs Date Time Temp Pulse Resp B/P (MAP) Pulse Ox O2 Delivery O2 Flow Rate FiO2 12/14/18 07:56 100 102/57 12/14/18 06:00 96.4 20 92 I&O- Last 24 Hours up to 6 AM 12/14/18 06:00 Intake Total 900 ml Output Total 4500 ml Balance -3600 ml Laboratory Data 24H LABS Laboratory Tests 2 12/13/18 11:48: Bedside Glucose (Misc Panel) 140H 12/13/18 17:11: Bedside Glucose (Misc Panel) 126H 12/13/18 21:23: Bedside Glucose (Misc Panel) 215H 12/14/18 05:39: Nucleated Red Blood Cells % (auto) 0.3H, Prothrombin Time 19.4H, Prothromb Time International Ratio 1.66, Blood Urea Nitrogen 50H, Creatinine 6.54H, Sodium Level 139, Potassium Level 4.7, Chloride Level 103, Carbon Dioxide Level 26, Anion Gap 10, Glomerular Filtration Rate 10.9L, Calcium Level 8.4L, Phosphorus Level 4.5, Albumin 2.7L CBC/BMP Laboratory Tests 12/14/18 05:39 Red Blood Count 2.87 L, Mean Corpuscular Volume 102.8 H, Mean Corpuscular Hemoglobin 32.4, Mean Corpuscular Hemoglobin Concent 31.5 L, Red Cell Distribution Width 17.0 H, Anion Gap 10 Microbiology Microbiology 12/10/18 Blood Culture - Preliminary, Resulted No Growth after 72 hours. All specime... 12/10/18 Blood Culture - Preliminary, Resulted No Growth after 72 hours. All specime... 12/08/18 Blood Culture - Final, Complete NO GROWTH AFTER 5 DAYS 12/06/18 Blood Culture - Final, Complete Klebsiella Oxytoca 12/06/18 Blood Culture - Final, Complete Klebsiella Oxytoca 12/06/18 Gram Stain - Final, Complete 12/06/18 Wound Culture - Final, Complete Klebsiella Oxytoca 12/06/18 Abscess Culture - Final, Complete Klebsiella Oxytoca Attending Note Attending Note VASCULAR SURGICAL ATTENDING NOTE: Dr. Asif Benjamin M.D. The patient was seen on 12/16/18 at 07:00. ASSESSMENT: Patient is a 73-year-old male with end-stage renal disease who underwent ligation of an infected right radiocephalic arteriovenous fistula and creation of a right brachiocephalic arteriovenous fistula. The right brachiocephalic arterial venous fistula has not been able to be used reliably for hemodialysis access. Patient continues to dialyzes through a right tunneled central venous catheter. Patient will continue to use his right internal jugular vein tunneled central venous catheter for hemodialysis access and renal replacement therapy. PLAN: Patient will require a fistulogram with possible angioplasty maturation, angioplasty, stenting and/or atherectomy. The right forearm wound requires minor debridement and the patient will undergo right forearm wound debridement in the operating room later this week. Crow Pearce was the attending vascular surgeon for this patient encounter. The patient was seen, examined, interviewed and evaluated independently by Dr. Karime Benjamin M.D. Dr. Karime Benjamin M.D. was fully available during the consultation evaluation. All aspects of the patient interview, examination, medical decision making process, and medical care plan development were reviewed and approved by Dr. Karime Benjamin M.D. Dr. Karime Benjamin M.D. is aware and concurs with the plan as stated in the body of this note and will attest to such by his/her cosignature. Betty Hernandez Dec 14, 2018 09:00 Renato Benjamin MD Dec 16, 2018 10:23
[2018-12-14] MEDS: NEPHRO-VIT TAB (NEPHROCAPS) PO SCH (09:44)
[2018-12-14] MEDS: ATORVASTATIN 20 MG TAB PO SCH (12:13)
[2018-12-14] MEDS: GABAPENTIN 100 MG CAP PO SCH (12:13)
[2018-12-14] MEDS: CEFEPIME HCL 2 GM in D5W MINI-BAG PLUS 50 ML IV SCH (12:22)
--- NOTE | 2018-12-14 13:30 | IPN ---
DATE OF VISIT: 12/14/2018 Mr. Lobo is seen this morning on his bedside. He is sitting in the chair today and getting ready for a walk. His is present in the room. The patient denies any fever, chills, nausea, vomiting, leg edema or dizziness. He uses a walker for assistance in walking. He underwent hemodialysis yesterday and we removed 4.5 liters of fluid, which he tolerated very well. On physical exam, temperature 96.4 degrees Fahrenheit, heart rate 100 per minute and respiratory rate 20 per minute. Blood pressure 105/57 mmHg and oxygen saturation 92% on room air. Head is atraumatic. His right eye is blind. Neck is supple and jugular venous distention (JVD) difficult to be assessed. Heart sounds are tachycardiac and irregular in rhythm. Lungs with diminished breath sounds and minimal expiratory wheezing. Abdomen was soft, obese and nontender and bowel sounds are present. Extremities have no cyanosis or clubbing. His right forearm wound is covered with dressing. Right upper arm arteriovenous (AV) fistula is patent. Left foot stump is also covered with dressing. Neurologically, he is at his baseline mentation. Today's labs show WBC count 10.0, hemoglobin 9.3 and hematocrit 29.5. Platelets 142. Sodium 139, potassium 4.7, CO2 26, BUN 50 and creatinine 6.54. Calcium 8.4 and phosphorus 4.5. PROBLEMS: 1. End-stage renal disease. Patient was dialyzed yesterday and his next dialysis will be scheduled for tomorrow. At present, there is no emergent need for dialysis today. 2. Congestive heart failure. His volume status is well-compensated and we removed 4.5 liters fluid yesterday, which he tolerated reasonably well. Patient is being advised to follow his fluid restriction. We will continue to manage his volume with dialysis. 3. Anemia. His anemia is stable at present and we will continue to treat him with Aranesp in dialysis. 4. Klebsiella bacteremia and infected AV fistula in the right forearm. Patient remains on antibiotics and is currently afebrile. His right arm AV fistula has already been cleaned and now he has a new fistula in right upper arm. At present, he is afebrile and mild leukocytosis persists. He has a Perma-Cath and I am concerned about possibility of infection in it. We will continue to watch him closely while he is on antibiotic. We will try to use his new AV fistula as soon as it is ready for use. DISPOSITION: From a renal standpoint, patient can be discharged to home when he is considered stable.
[2018-12-14 14:00] VITALS: BP 110/60
--- NOTE | 2018-12-14 18:44 | IPNPDOC ---
Subjective Date Seen The patient was seen on 12/14/18. Subjective Chief Complaint/HPI Follow-up infected right forearm fistula Events since last encounter Patient seen and examined at bedside. Patient sitting up in chair. Says he's tired and has a cough but otherwise denies fevers, chills, chest pain, diffi culty breathing, nausea, vomiting, diarrhea Objective Physical Examination General Exam: Positive: Alert, Cooperative, No Acute Distress, Other (sitting u p in chair asleep ) Chest Exam: Positive: Clear to auscultation, Normal air movement Heart Exam: Positive: Rate Normal, Irregular Rhythm, Murmurs (systolic ) Abdomen Exam: Positive: Normal bowel sounds, Soft; Negative: Tenderness Extremity Exam: Positive: Edema (trace lower extremity edema in RLE and 1+ LE edema in LLE), Other (right forearm wrapped in bandage which appears clean, dry and intact) Neuro Exam: Positive: Normal Speech, Other (no focal deficits) Psych Exam: Positive: Mental status NL, Mood NL, Oriented x 3 Assessment /Plan Assessment 73-year-old male with PMH significant for ESRD on HD, with old right forearm fistula, presenting to the emergency room on account of bleeding from the old fistula found to have infected right forearm fistula with klebsiella. Pt is 1 month s/p ligation of RUE forearm radial cephalic AVF due to bleeding from chronic ulcer and creation of new RUE brachial cephalic AVF by vascular surgery. Pt is s/p excisional debridement right upper extremity chronic ulcer, 10 cm debrided of skin, subcutaneous tissue and excisional debridement right upper extremity abscess cavity, 14 cm debrided of skin, subcutaneous tissue also s/p Ligation of proximal superficial veins 2. Pt started on cefepime for klebsiella bacteremia with good response. WBC downtrended but afebrile. Pt had permacath placed for dialysis. Dialysis has tried to use new RUE brachial cephalic AVFx2 with no success. Tentative plan for Dr. Benjamin to take pt for fistulogram 12/16/18. Pt also on coumadin with subtherapeutic values currently uptitrating his coumadin dosing. Plan/VTE VTE Prophylaxis Ordered?: Yes Plan #RUE forearm abscess, hematoma, chronic ulcer. -He is 1 month s/p ligation of RUE forearm radial cephalic AVF due to bleeding from chronic ulcer and creation of new RUE brachial cephalic AVF.12/06/18 vascular surgery -s/p Excisional debridement right upper extremity chronic ulcer, 10 cm debrided of skin, subcutaneous tissue. -s/p Excisional debridement right upper extremity abscess cavity, 14 cm debrided of skin, subcutaneous tissue. -s/p Ligation of proximal superficial veins 2 -blood cx: klebsiella on iv cefepime. -Plan to continue to use permacath -Dr. Benjamin tentatively planning to take pt for fistulogram 12/16/18 Klebsiella bacteremia due to infected dialysis graft -cont. cefepime End-stage renal disease, on hemodialysis Thursday, Thursday, Thursday. -managed by nephrology -unable to use new AVFx2 attempts Hyperlipidemia. -on lipitor Neuropathy. -complicating care Diabetes mellitus, type 2. -consistent carbs renal diet -sliding scale Morbid obesity.BMI 43 -complicating care -h/o elisha Metabolic Syndrome -morbid obesity -hyperlipidemia -complicating care Hypertension. -on metoprolol Coronary artery disease. -on lipitor and metoprolol Gastroesophageal reflux disease. Atrial fibrillation. -on metoprolol for rate control -on coumadin for anticoagulation -INR subtherapeutic so will go up on coumadin to 6mg daily until therapeutic Obstructive sleep apnea. -cpap qhs DVT PPX: on coumadin Disposition pending fistulogram on 12/16/18 VS, I&O, 24H, Fishbone Vital Signs/I&O Vital Signs Date Time Temp Pulse Resp B/P (MAP) Pulse Ox O2 Delivery O2 Flow Rate FiO2 12/14/18 14:00 96.0 90 19 110/60 (77) 94 I&O- Last 24 Hours up to 6 AM 12/14/18 06:00 Intake Total 900 ml Output Total 4500 ml Balance -3600 ml Laboratory Data 24H LABS Laboratory Tests 2 12/13/18 21:23: Bedside Glucose (Misc Panel) 215H 12/14/18 05:39: Nucleated Red Blood Cells % (auto) 0.3H, Prothrombin Time 19.4H, Prothromb Time International Ratio 1.66, Blood Urea Nitrogen 50H, Creatinine 6.54H, Sodium Level 139, Potassium Level 4.7, Chloride Level 103, Carbon Dioxide Level 26, Anion Gap 10, Glomerular Filtration Rate 10.9L, Calcium Level 8.4L, Phosphorus Level 4.5, Albumin 2.7L CBC/BMP Laboratory Tests 12/14/18 05:39 Red Blood Count 2.87 L, Mean Corpuscular Volume 102.8 H, Mean Corpuscular Hemoglobin 32.4, Mean Corpuscular Hemoglobin Concent 31.5 L, Red Cell Distribution Width 17.0 H, Anion Gap 10 Microbiology Microbiology 12/10/18 Blood Culture - Preliminary, Resulted No Growth after 72 hours. All specime... 12/10/18 Blood Culture - Preliminary, Resulted No Growth after 72 hours. All specime... 12/08/18 Blood Culture - Final, Complete NO GROWTH AFTER 5 DAYS 12/06/18 Blood Culture - Final, Complete Klebsiella Oxytoca 12/06/18 Blood Culture - Final, Complete Klebsiella Oxytoca 12/06/18 Gram Stain - Final, Complete 12/06/18 Wound Culture - Final, Complete Klebsiella Oxytoca 12/06/18 Abscess Culture - Final, Complete Klebsiella Oxytoca PEYMAN JIANG MD Dec 14, 2018 18:44
[2018-12-14] MEDS: WARFARIN SOD 3 MG TAB PO SCH (21:58)
[2018-12-14 22:00] VITALS: BP 139/69
[2018-12-15 06:00] VITALS: BP 115/70
[2018-12-15 06:22] LABS: HEMATOCRIT 28.7 % (42.0-52.0); HEMOGLOBIN 9.2 g/dl (13.5-17.5); MEAN CORPUSCULAR HEMOGLOBIN 31.9 pg (27.0-33.0); MEAN CORPUSCULAR HGB CONC 32.1 g/dl (32.0-36.5); MEAN CORPUSCULAR VOLUME 99.7 fl (80.0-96.0); PLATELET COUNT, AUTOMATED 163 10^3/uL (150-450); RED BLOOD COUNT 2.88 10^6/uL (4.30-6.10); WHITE BLOOD COUNT 9.9 10^3/uL (4.0-10.0)
[2018-12-15 06:24] LABS: INR 1.84
[2018-12-15] MEDS: METOPROLOL TART 25 MG TABLET PO SCH ×2 (06:32→21:39)
[2018-12-15] MEDS: NEPHRO-VIT TAB (NEPHROCAPS) PO SCH (06:32)
[2018-12-15] MEDS: OYSTER SHELL CALCIUM 500 MG TAB PO SCH (06:32)
[2018-12-15] MEDS: hydrOXYzine 25 MG TAB PO PRN ×2 (06:32→17:32)
[2018-12-15 07:03] LABS: ALBUMIN 2.9 GM/DL (3.2-5.2); CALCIUM LEVEL 8.6 MG/DL (8.8-10.2); CREATININE FOR GFR 8.1 MG/DL (0.70-1.30); GLOMERULAR FILTRATION RATE 8.5 (>42); PHOSPHORUS LEVEL 5.8 MG/DL (2.5-4.9); POTASSIUM SERUM 5.3 MEQ/L (3.5-5.1)
[2018-12-15] MEDS: IPRATROPIUM 0.5MG/ALBUTEROL 2.5MG INH SOL UD 3ML (DUONEB)(J7620) NEB SCH ×4 (08:00→20:38)
[2018-12-15] MEDS: HumaLOG INSULIN (NovoLOG) PER UNIT SC SCH ×4 (08:14→21:00)
[2018-12-15] MEDS ORDERED: HEPARIN 1,000 UNITS/ML 10ML VIAL (FOR RADIOLOGY& DIALYSIS ONLY) XX ONE (11:30)
[2018-12-15] MEDS ORDERED: HEPARIN 1,000 UNITS/ML 10ML VIAL (FOR RADIOLOGY& DIALYSIS ONLY) IV ONE (11:30)
--- NOTE | 2018-12-15 11:37 | IPNPDOC ---
Date Seen The patient was seen on 12/15/18. Progress Note Vascular Surgery Dr Benjamin. HPI: Mr Yamil is a 73yo gentleman POD #9 s/p excisional debridement RUE forearm abscess, hematoma, chronic ulcer. He is 1 month s/p ligation of RUE forearm radial cephalic AVF due to bleeding from chronic ulcer and creation of new RUE brachial cephalic AVF. Spoke with dialysis this Am and it is reported there has been no drainage from Permcath. Currently receiving HD. Denies any fevers, chills, weakness, fatigue, Headache, Chest Pain, Shortness of breath, cough, palpitations, abdominal pain, N/V/D or changes in bowel or bladder habits. PE: GEN: 73yoM, appears stated age. No acute distress. HEENT: Normocephalic, atraumatic. Moist mucous membranes. CHEST: Regular rate and rhythm, +S1, +S2 LUNGS: Clear to auscultation bilaterally. No wheezes, rales, or rhonchi. ABD: Round, soft, non-tender, non-distended. EXT: No lower extremity edema appreciated. dressing intact RUE forearm. Thrill noted over AVF RUE fistula upper arm. SKIN: [place], dry, warm. No rashes. NEURO: Alert and oriented x 3. No focal deficits appreciated. A&P: POD #9 s/p excisional debridement RUE forearm abscess, hematoma, chronic ulcer. Continue dressing changes LUE forearm with hydrofera blue rope or foam, foam, coban, and avoid compression antecubital crease with coban so we do not limit inflow to new AVF upper arm. Pt will need follow up at the wound care center for LUE at discharge. Continue antibiotics. ESRD. continue dialysis with permcath for now. S/P creation of new RUE brachial cephalic AVF 11/03/18. At this point dialysis has not been able to use x 2 attempts. The pt is reviewed by Dr Benjamin, would like to try to get the AVF functioning for HD access so that the Permcath can be removed. Tentative plan as per Dr Benjamin is for fistulogram AM 12/16/18. Klebsiella bacteremia. Patient is afebrile, WBC 9.9 downtrending. There has been discussion re removal of Permcath. DVT prophylaxis. Pt is on Coumadin. VS, I&O, 24H, Fishbone Vital Signs/I&O Vital Signs Date Time Temp Pulse Resp B/P (MAP) Pulse Ox O2 Delivery O2 Flow Rate FiO2 12/15/18 06:32 95 115/70 12/15/18 06:00 97.5 20 96 I&O- Last 24 Hours up to 6 AM 12/15/18 06:00 Intake Total 1200 ml Output Total 0 ml Balance 1200 ml Laboratory Data 24H LABS Laboratory Tests 2 12/14/18 20:46: Bedside Glucose (Misc Panel) 185H 12/15/18 05:39: Nucleated Red Blood Cells % (auto) 0.3H, Prothrombin Time 21.0H, Prothromb Time International Ratio 1.84, Blood Urea Nitrogen 65H, Creatinine 8.10*H, Sodium Level 138, Potassium Level 5.3H, Chloride Level 104, Carbon Dioxide Level 25, Anion Gap 9, Glomerular Filtration Rate 8.5L, Calcium Level 8.6L, Phosphorus Level 5.8#H, Albumin 2.9L 12/15/18 06:30: Bedside Glucose (Misc Panel) 124H CBC/BMP Laboratory Tests 12/15/18 05:39 Red Blood Count 2.88 L, Mean Corpuscular Volume 99.7 H, Mean Corpuscular Hemoglo bin 31.9, Mean Corpuscular Hemoglobin Concent 32.1, Red Cell Distribution Width 17.3 H, Anion Gap 9 Microbiology Microbiology 12/10/18 Blood Culture - Preliminary, Resulted No Growth after 72 hours. All specime... 12/10/18 Blood Culture - Preliminary, Resulted No Growth after 72 hours. All specime... 12/08/18 Blood Culture - Final, Complete NO GROWTH AFTER 5 DAYS 12/06/18 Blood Culture - Final, Complete Klebsiella Oxytoca 12/06/18 Blood Culture - Final, Complete Klebsiella Oxytoca 12/06/18 Gram Stain - Final, Complete 12/06/18 Wound Culture - Final, Complete Klebsiella Oxytoca 12/06/18 Abscess Culture - Final, Complete Klebsiella Oxytoca Attending Note Attending Note VASCULAR SURGICAL ATTENDING NOTE: Dr. Asif Benjamin M.D. ASSESSMENT: Patient is a 73-year-old male with end-stage renal disease and a dysfunctional right brachiocephalic arterial venous fistula. Patient is scheduled to undergo a fistulogram to evaluate the arteriovenous fistula on 12/16/2018. Right forearm wound is healing and there is some small areas of fibrinous e xudate and nonhealing tissue that will require debridement. PLAN: Patient will undergo a right brachiocephalic arteriovenous fistulogram with possible angioplasty maturation, angioplasty, stenting and/or atherectomy. Patient will require debridement of his right forearm wound which will be perfor med in the operating room later this week. Crow Pearce was the attending vascular surgeon for this patient encounter. The patient was seen, examined, interviewed and evaluated independently by Dr. Karime Benjamin M.D. Dr. Karime Benjamin M.D. was fully available during the consultation evaluation. All aspects of the patient interview, examination, medical decision making pro cess, and medical care plan development were reviewed and approved by Dr. Karime Benjamin M.D. Dr. Karime Benjamin M.D. is aware and concurs with the plan as stated in the body of this note and will attest to such by his/her cosignature. Patient will require a fistulogram with possible angioplasty maturation, angioplasty, stenting and/or atherectomy. Betty Hernandez Dec 15, 2018 11:37 Renato Benjamin MD Dec 16, 2018 10:26
--- NOTE | 2018-12-15 11:55 | IPN ---
DATE OF VISIT: 12/15/2018 Mr. Lobo is seen this morning on his bedside during hemodialysis. He is resting comfortably. He remains afebrile and tolerating his dialysis treatments very well. He did grow Klebsiella in his blood cultures related to infected arteriovenous (AV) fistula in his right forearm. Repeat blood cultures have been negative. On physical exam, temperature 97.5 degrees Fahrenheit, heart rate 95 per minute and respiratory rate 20 per minute. Blood pressure 115/70 mmHg and oxygen saturation 96% on room air. His head is atraumatic. Neck is supple and without jugular venous distention (JVD) or thyroid enlargement. Heart sounds irregular in rhythm. Lungs with moderate bilateral air entry. Abdomen obese, soft and nontender, and bowel sounds are normal. Extremities have no cyanosis or clubbing. Right forearm wound is covered with dressing. Right upper arm AV fistula is patent. Left foot stump is covered in dressing too. Today's labs show WBC count 9.9, hemoglobin 9.2 and hematocrit 28.7. Sodium 138, potassium 5.3, CO2 25, BUN 65 and creatinine 8.1. Calcium 8.6 and phosphorus 5.8. PROBLEMS: 1. End-stage renal disease. Patient is being dialyzed this morning and he is tolerating his dialysis treatment very well. 2. Congestive heart failure. Volume status is reasonably well-compensated and we are trying to remove about 4 liters fluid today. It remains to be seen how he tolerates. 3. Klebsiella bacteremia. Patient has been afebrile. Blood cultures are negative. He will continue with antibiotic therapy for now. 4. Anemia. His anemia is stable and he is receiving Aranesp 200 mcg every week with dialysis. 5. Hyperkalemia. Patient has mild hyperkalemia related to end-stage renal disease, which is likely to improve with dialysis today. 6. Poorly functioning right upper arm AV fistula. Patient is scheduled for fistulogram and possible fistuloplasty tomorrow. Currently, we are using PermaCath. 7. Atrial fibrillation. His ventricular rate is well controlled and patient will continue with current medications.
[2018-12-15] MEDS: GABAPENTIN 100 MG CAP PO SCH (13:06)
[2018-12-15] MEDS: ATORVASTATIN 20 MG TAB PO SCH (13:06)
[2018-12-15 14:00] VITALS: BP 116/66
--- NOTE | 2018-12-15 15:38 | IPNPDOC ---
Subjective Date Seen The patient was seen on 12/15/18. Subjective Chief Complaint/HPI Follow-up infected right forearm fistula Events since last encounter Patient seen and examined at bedside. Patient tired after dialysis session today, but otherwise denies fevers, chills, chest pain, difficulty breathing, nausea, vomiting, diarrhea. Patient informed about possible fistulogram tomorrow Objective Physical Examination General Exam: Positive: Alert, Cooperative, No Acute Distress, Other (sitting in bed in NAD) Chest Exam: Positive: Clear to auscultation, Normal air movement Heart Exam: Positive: Rate Normal, Irregular Rhythm, Murmurs (systolic ) Abdomen Exam: Positive: Normal bowel sounds, Soft; Negative: Tenderness Extremity Exam: Positive: Edema, Other (right forearm wrapped in bandage which appears clean, dry and intact) Neuro Exam: Positive: Normal Speech, Other (no focal deficits) Psych Exam: Positive: Mental status NL, Mood NL, Oriented x 3 Assessment /Plan Assessment 73-year-old male with PMH significant for ESRD on HD, with old right forearm fistula, presenting to the emergency room on account of bleeding from the old fistula found to have infected right forearm fistula with klebsiella. Pt is 1 month s/p ligation of RUE forearm radial cephalic AVF due to bleeding from chronic ulcer and creation of new RUE brachial cephalic AVF by vascular surgery. Pt is s/p excisional debridement right upper extremity chronic ulcer, 10 cm debrided of skin, subcutaneous tissue and excisional debridement right upper extremity abscess cavity, 14 cm debrided of skin, subcutaneous tissue also s/p Ligation of proximal superficial veins 2. Pt started on cefepime for klebsiella bacteremia with good response. WBC downtrended but afebrile. Pt had permacath placed for dialysis. Dialysis has tried to use new RUE brachial cephalic AVFx2 with no success. Tentative plan for Dr. Benjamin to take pt for fistulogram tomorrow 12/16/18. Pt also on coumadin with subtherapeutic values currently uptitrating his coumadin dosing. Plan/VTE VTE Prophylaxis Ordered?: Yes Plan #RUE forearm abscess, hematoma, chronic ulcer. -He is 1 month s/p ligation of RUE forearm radial cephalic AVF due to bleeding from chronic ulcer and creation of new RUE brachial cephalic AVF.12/06/18 vascular surgery -s/p Excisional debridement right upper extremity chronic ulcer, 10 cm debrided of skin, subcutaneous tissue. -s/p Excisional debridement right upper extremity abscess cavity, 14 cm debrided of skin, subcutaneous tissue. -s/p Ligation of proximal superficial veins 2 -blood cx: klebsiella on iv cefepime. -Plan to continue to use permacath -Dr. Benjamin tentatively planning to take pt for fistulogram and possible fistuloplasty tomorrow 12/16/18 Klebsiella bacteremia due to infected dialysis graft -cont. cefepime -repeat cultures neg End-stage renal disease, on hemodialysis Thursday, Thursday, Thursday. -managed by nephrology -unable to use new AVFx2 attempts Hyperlipidemia. -on lipitor Neuropathy. -complicating care Diabetes mellitus, type 2. -consistent carbs renal diet -sliding scale Morbid obesity.BMI 43 -complicating care -h/o elisha Metabolic Syndrome -morbid obesity -hyperlipidemia -complicating care Hypertension. -on metoprolol Coronary artery disease. -on lipitor and metoprolol Gastroesophageal reflux disease. Atrial fibrillation. -on metoprolol for rate control -on coumadin for anticoagulation -will cont. coumadin 6mg daily as INR is rising Obstructive sleep apnea. -cpap qhs DVT PPX: on coumadin Disposition pending fistulogram tomorrow and therapeutic INR VS, I&O, 24H, [facility] Vital Signs/I&O Vital Signs Date Time Temp Pulse Resp B/P (MAP) Pulse Ox O2 Delivery O2 Flow Rate FiO2 12/15/18 14:00 98.5 90 18 116/66 (83) 97 I&O- Last 24 Hours up to 6 AM 12/15/18 06:00 Intake Total 1200 ml Output Total 0 ml Balance 1200 ml Laboratory Data 24H LABS Laboratory Tests 2 12/14/18 17:07: Bedside Glucose (Misc Panel) 140H 12/14/18 20:46: Bedside Glucose (Misc Panel) 185H 12/15/18 05:39: Nucleated Red Blood Cells % (auto) 0.3H, Prothrombin Time 21.0H, Prothromb Time International Ratio 1.84, Blood Urea Nitrogen 65H, Creatinine 8.10*H, Sodium Level 138, Potassium Level 5.3H, Chloride Level 104, Carbon Dioxide Level 25, Anion Gap 9, Glomerular Filtration Rate 8.5L, Calcium Level 8.6L, Phosphorus Level 5.8#H, Albumin 2.9L 12/15/18 06:30: Bedside Glucose (Misc Panel) 124H 12/15/18 13:03: Bedside Glucose (Misc Panel) 95 CBC/BMP Laboratory Tests 12/15/18 05:39 Red Blood Count 2.88 L, Mean Corpuscular Volume 99.7 H, Mean Corpuscular Hemoglobin 31.9, Mean Corpuscular Hemoglobin Concent 32.1, Red Cell Distribution Width 17.3 H, Anion Gap 9 Microbiology Microbiology 12/10/18 Blood Culture - Preliminary, Resulted No Growth after 72 hours. All specime... 12/10/18 Blood Culture - Preliminary, Resulted No Growth after 72 hours. All specime... 12/08/18 Blood Culture - Final, Complete NO GROWTH AFTER 5 DAYS 12/06/18 Blood Culture - Final, Complete Klebsiella Oxytoca 12/06/18 Blood Culture - Final, Complete Klebsiella Oxytoca 12/06/18 Gram Stain - Final, Complete 12/06/18 Wound Culture - Final, Complete Klebsiella Oxytoca 12/06/18 Abscess Culture - Final, Complete Klebsiella Oxytoca PEYMAN JIANG MD Dec 15, 2018 15:38
[2018-12-15] MEDS: BENZONATATE 100 MG CAP PO PRN (17:32)
[2018-12-15] MEDS: ACETAMINOPHEN TAB 650MG DOSE (2X325MG) PO PRN (17:32)
[2018-12-15 20:39] VITALS: O2SAT 95
[2018-12-15] MEDS: WARFARIN SOD 3 MG TAB PO SCH (21:38)
[2018-12-15 22:00] VITALS: BP 102/58
[2018-12-16 05:37] LABS: HEMATOCRIT 29.5 % (42.0-52.0); HEMOGLOBIN 9.4 g/dl (13.5-17.5); MEAN CORPUSCULAR HGB CONC 31.9 g/dl (32.0-36.5); MEAN CORPUSCULAR VOLUME 103.5 fl (80.0-96.0); PLATELET COUNT, AUTOMATED 121 10^3/uL (150-450); RED BLOOD COUNT 2.85 10^6/uL (4.30-6.10); WHITE BLOOD COUNT 8.3 10^3/uL (4.0-10.0)
[2018-12-16 05:49] LABS: INR 1.9; PROTHROMBIN TIME 21.6 SECONDS (11.8-14.0)
[2018-12-16 05:58] LABS: ALBUMIN 2.8 GM/DL (3.2-5.2); CALCIUM LEVEL 8.2 MG/DL (8.8-10.2); CREATININE FOR GFR 6.19 MG/DL (0.70-1.30); GLOMERULAR FILTRATION RATE 11.6 (>42); PHOSPHORUS LEVEL 4.8 MG/DL (2.5-4.9); POTASSIUM SERUM 4.4 MEQ/L (3.5-5.1)
[2018-12-16 06:00] VITALS: BP 121/82
[2018-12-16] MEDS ORDERED: LIDOCAINE 2% MDV 20 ML VIAL As Ordered ONE (07:01)
[2018-12-16] MEDS ORDERED: BUPIVACAINE HCL 0.5% 10 ML VIAL As Ordered ONE (07:01)
[2018-12-16] MEDS ORDERED: ISOVUE-300 61% 50ML VIAL (Q9967) As Ordered ONE (07:01)
[2018-12-16] MEDS ORDERED: MIDAZOLAM INJ 2 MG/2 ML VIAL (J2250) As Ordered ONE (07:19)
[2018-12-16] MEDS ORDERED: fentaNYL 100 MCG/2 ML INJECTION (J3010) As Ordered ONE (07:19)
[2018-12-16] MEDS ORDERED: diphenhydrAMINE INJ 50MG/ML VIAL (J1200) As Ordered ONE (07:27)
[2018-12-16] MEDS ORDERED: diphenhydrAMINE INJ 50MG/ML VIAL (J1200) IV ONE (07:30)
[2018-12-16] MEDS: IPRATROPIUM 0.5MG/ALBUTEROL 2.5MG INH SOL UD 3ML (DUONEB)(J7620) NEB SCH ×4 (07:47→20:47)
--- NOTE | 2018-12-16 08:41 | IPNPDOC ---
Date Seen The patient was seen on 12/16/18. Progress Note Vascular Surgery Dr Benjamin. HPI: Mr Yamil is a 73yo gentleman POD #9 s/p excisional debridement RUE forearm abscess, hematoma, chronic ulcer. He is 1 month s/p ligation of RUE forearm radial cephalic AVF due to bleeding from chronic ulcer and creation of new RUE brachial cephalic AVF. No drainage reported from Permcath. S/P Fistulogram this Am. Denies any fevers, chills, weakness, fatigue, Headache, Chest Pain, Shortness of breath, cough, palpitations, abdominal pain, N/V/D or changes in bowel or bladder habits. PE: GEN: 73yoM, appears stated age. No acute distress. HEENT: Normocephalic, atraumatic. Moist mucous membranes. CHEST: Regular rate and rhythm, +S1, +S2 LUNGS: Clear to auscultation bilaterally. No wheezes, rales, or rhonchi. ABD: Round, soft, non-tender, non-distended. EXT: No lower extremity edema appreciated. dressing intact RUE forearm. Thrill noted over AVF RUE fistula upper arm. SKIN: [place], dry, warm. No rashes. NEURO: Alert and oriented x 3. No focal deficits appreciated. A&P: POD #10 s/p excisional debridement RUE forearm abscess, hematoma, chronic ulcer. Continue dressing changes LUE forearm with hydrofera blue rope or foam, foam, coban, and avoid compression antecubital crease with coban so we do not limit inflow to new AVF upper arm. The pt is reviewed and examined as per Dr Benjamin this am, plan for OR 12/17/18 for debridement of Rt forearm wound. Plan is for follow up at the wound care center for RUE at discharge. Continue antibiotics. ESRD. continue dialysis with permcath for now. S/P creation of new RUE brachial cephalic AVF 11/03/18. At this point dialysis has not been able to use x 2 attempts. Would like to try to get the AVF functioning for HD access so that the Permcath can be removed. S/P fistulogram this AM as per Dr Benjamin, S/P ballooning, but will likely need to be repeated 1-2 weeks for the fistula to become functional. Klebsiella bacteremia. Patient is afebrile, WBC 8.3 downtrending. DVT prophylaxis. Pt is on Coumadin. VS, I&O, 24H, Fishbone Vital Signs/I&O Vital Signs Date Time Temp Pulse Resp B/P (MAP) Pulse Ox O2 Delivery O2 Flow Rate FiO2 12/16/18 07:59 82 20 99 12/16/18 07:33 2 12/16/18 07:01 97.7 12/16/18 06:00 121/82 (95) I&O- Last 24 Hours up to 6 AM 12/16/18 06:00 Intake Total 1340 ml Output Total 4000 ml Balance -2660 ml Laboratory Data 24H LABS Laboratory Tests 2 12/15/18 13:03: Bedside Glucose (Misc Panel) 95 12/15/18 16:49: Bedside Glucose (Misc Panel) 161H 12/16/18 05:22: Nucleated Red Blood Cells % (auto) 0.0, Prothrombin Time 21.6H, Prothromb Time International Ratio 1.90, Blood Urea Nitrogen 43H, Creatinine 6.19H, Sodium Level 137, Potassium Level 4.4, Chloride Level 103, Carbon Dioxide Level 26, Anion Gap 8, Glomerular Filtration Rate 11.6L, Calcium Level 8.2L, Phosphorus Level 4.8, Albumin 2.8L CBC/BMP Laboratory Tests 12/16/18 05:22 Red Blood Count 2.85 L, Mean Corpuscular Volume 103.5 H, Mean Corpuscular Hemoglobin 33.0, Mean Corpuscular Hemoglobin Concent 31.9 L, Red Cell Distribution Width 17.9 H, Anion Gap 8 Microbiology Microbiology 12/10/18 Blood Culture - Final, Complete NO GROWTH AFTER 5 DAYS 12/10/18 Blood Culture - Final, Complete NO GROWTH AFTER 5 DAYS 12/08/18 Blood Culture - Final, Complete NO GROWTH AFTER 5 DAYS 12/06/18 Blood Culture - Final, Complete Klebsiella Oxytoca 12/06/18 Blood Culture - Final, Complete Klebsiella Oxytoca 12/06/18 Gram Stain - Final, Complete 12/06/18 Wound Culture - Final, Complete Klebsiella Oxytoca 12/06/18 Abscess Culture - Final, Complete Klebsiella Oxytoca Attending Note Attending Note VASCULAR SURGICAL ATTENDING NOTE: Dr. Asif Benjamin M.D. The patient was seen on 8/1/19 at 07:00. ASSESSMENT: Patient is a 73-year-old male with end-stage renal disease who underwent ligation of an infected right radiocephalic arteriovenous fistula and creation of a right brachiocephalic arteriovenous fistula. The right brachiocephalic arterial venous fistula has not been able to be used reliably for hemodialysis access. Patient continues to dialyzes through a right tunneled central venous catheter. Patient's right forearm wound is healing albeit slowly. Patient underwent a fistulogram this morning with angioplasty of the cephalic vein with an 8 mm balloon for increased size and flow through the fistula. PLAN: The fistula underwent angioplasty with improved size and flow but still may be difficult with cannulation and may require a repeat fistulogram in 1-2 weeks with angioplasty maturation to increase the size of the arteriovenous fistula. I will recheck the fistula in 24 hours and see if it feels as though it may be able to be used for attempted cannulation for hemodialysis. The right forearm wound requires minor debridement and the patient will undergo right forearm wound debridement in the operating room which is planned for 12/17/2018. Crow Pearce was the attending vascular surgeon for this patient encounter. The patient was seen, examined, interviewed and evaluated independently by Dr. Karime Benjamin M.D. Dr. Karime Benjamin M.D. was fully available during the consultation evaluation. All aspects of the patient interview, examination, medical decision making process, and medical care plan development were reviewed and approved by Dr. Karime Benjamin M.D. Dr. Karime Benjamin M.D. is aware and concurs with the plan as stated in the body of this note and will attest to such by his/her cosignature. Betty Hernandez Dec 16, 2018 08:41 Renato Benjamin MD Dec 16, 2018 10:19
[2018-12-16] MEDS: NEPHRO-VIT TAB (NEPHROCAPS) PO SCH (09:02)
[2018-12-16] MEDS: OYSTER SHELL CALCIUM 500 MG TAB PO SCH (09:02)
[2018-12-16] MEDS: METOPROLOL TART 25 MG TABLET PO SCH ×2 (09:03→21:42)
[2018-12-16] MEDS: HumaLOG INSULIN (NovoLOG) PER UNIT SC SCH ×4 (09:03→21:00)
--- NOTE | 2018-12-16 09:36 | ROOPDOC ---
[facility] Report Of Operation Report of Operation DATE OF PROCEDURE: 12/16/2018 PREOPERATIVE DIAGNOSIS: End-stage renal disease. Dysfunctional right brachiocephalic arteriovenous fistula. Infected right radiocephalic arteriovenous fistula requiring ligation. POSTOPERATIVE DIAGNOSIS: End-stage renal disease. Dysfunctional right brachiocephalic arteriovenous fistula. Infected right radiocephalic arteriovenous fistula requiring ligation. PROCEDURE: Right brachiocephalic arteriovenous fistulogram. Retrograde right brachial artery angiogram. Left cephalic vein angioplasty with 8 mm x 200 mm balloon. SURGEON: Dr. Asif Benjamin M.D. DIPPING MACHINE OPERATOR: Nicolasa Snyder INDICATION: Patient is a 73-year-old male with end-stage renal disease who dialyzes through a right brachiocephalic arteriovenous fistula. Patient has had a right radiocephalic arteriovenous fistula which she used for quite some time but the fistula became infected and was unable to be salvaged and required ligation and debridement of the right radiocephalic arteriovenous fistula with creation of a new right brachiocephalic arteriovenous fistula. The right brachiocephalic arteriovenous fistula has not been able to be used reliably for hemodialysis and the patient continues to dialyze through a right internal jugular vein tunneled central venous catheter. Patient will undergo a right brachiocephalic arteriovenous fistulogram with possible angioplasty, stent and/or atherectomy. Procedure was described and explained to the patient in detail including drawing of pictures demonstrating the pertinent anatomy and description of the procedure. Risks, benefits and alternative treatment options were discussed with the patient. Benefits included but were not limited to improved functioning of the arteriovenous fistula and maintained patency. Alternative treatment options included but were not limited to no intervention. Risks included but were not limited to infection, bleeding, loss of arteriovenous access, steal syndrome, possible need for open surgical intervention, anesthetic complications, allergic reaction or complication from the prepping and draping materials, allergic reaction or complication from the contrast, pain, scarring of the skin, hematoma formation, bruising, possible need for transfusion of blood products, cerebrovascular accident, myocardial infarction, pulmonary embolus, deep venous thrombosis, loss of limb, loss of life, poor results and poor outcome. Risks of not performing the procedure inc luded but were not limited to continued need to use the tunneled central venous catheter for hemodialysis and inability to use the fistula with possible loss of the fistula. Patient's questions were answered. Patient voices understanding of these risks, benefits and alternative treatment options. Patient voices acceptance of these risks associated with the procedure and consents to proceed with a fistulogram with possible angioplasty, atherectomy and/or stenting. There were no promises or guarantees made to the patient regarding the results and/or outcome of the procedure. ANESTHESIA: Local with 3 mL of 2% lidocaine mixed with 0.5% Marcaine. SEDATION TIME: No sedation was given. ESTIMATED BLOOD LOSS: 5 mL. IV FLUIDS: 50 mL. FLUORO TIME: 0.5 minutes CONTRAST: 5 mL. of Isovue 300 HEPARIN: None PROTAMINE: None COMPLICATIONS: None DRAINS: None. SPECIMENS: None. IMPLANTS: None PROCEDURE: Patient was taken to the angiography suite, placed supine on the angiography room table and then prepped and draped in a standard surgical fashion. A procedural time-out was conducted by myself and the team members involved in the procedure confirming the correct patient, procedure and laterality. The right brachiocephalic arteriovenous fistula was then cannulated with a micro-puncture needle after anesthetizing the overlying skin and subcutaneous tissue with 2% lidocaine mixed with 0.5% Marcaine. A micropuncture wire was advanced through the micropuncture needle which was up-sized to a micropuncture sheath. A fistulogram was performed showing the cephalic vein to be diffusely small with multiple areas of stenosis along the course from the puncture site to the upper arm. A Sierra wire was advanced through the micropuncture sheath, through the fistula and into the central venous system. The micropuncture sheath was removed and exchanged for a 5 [place] sheath over the Sierra wire. The cephalic vein was then underwent angioplasty with a 8 mm x 200 mm balloon. A completion fistulogram was then performed showing resolution of the stenosis and improved size and flow through the fistula outflow tract. The retrograde brachial artery angiogram was performed during inflation of the balloon within the cephalic vein. This showed the remainder of the cephalic v ein to be patent to the brachial artery with a large collateral branch originating off the cephalic vein at the antecubital fossa and coursing into the upper arm and deeper venous system. The arteriovenous anastomosis was patent with good flow noted in the brachial artery proximal distal to the arterial venous anastomosis and no stenosis at the arteriovenous anastomosis. The sheath was removed and a 2-0 Prolene pursestring suture was placed at the puncture site for hemostasis. Dressings were then applied. Patient tolerated the procedure well. All instrument, sponge and needle counts were correct at the end of the case. There were no complications. Dr. Benjamin was present for and directed the entire case. Patient was transferred to the recovery area and subsequently to the floor in stable condition once the 2-0 Prolene pursestring suture was removed and good hemostasis noted. The findings and results of the procedure were discussed with the patient in detail in the postprocedure holding area with all of his questions being answered. RADIOLOGIC SUPERVISION AND INTERPRETATION: The fistulogram showed the cephalic vein to have a 60% to 70 percent stenosis in multiple areas of the cephalic vein along its course with the cephalic vein measuring approximate 5-6 mm in maximal diameter. The cephalic vein underwent angioplasty with a 8 mm x 200 mm balloon with prolonged inflation time. The completion fistulogram showed resolution of the stenosis with excellent flow through the cephalic vein with increased size noted to the cephalic vein along the course of the outflow tract into the upper arm. The retrograde brachial artery angiogram showed the remainder the cephalic vein to be patent to the brachial artery with no stenosis at the arteriovenous anastomosis and good flow in the brachial artery proximal and distal to the arteriovenous anastomosis. There was a large collateral branch originating off cephalic vein at the antecubital fossa and coursing into the upper arm and deeper venous system. CONCLUSION:The fistula was small and difficult to palpate prior to the intervention. The fistula had a strongly palpable thrill at the completion of the intervention. The fistula was still difficult to palpate and is not yet ready for attempts at hemodialysis. PLAN: The fistula has been angioplasty for maturation and has increased size and flow but is still not yet ready for hemodialysis access. The patient will undergo a repeat fistulogram with angioplasty maturation in 1-2 weeks. Patient will continue to use the tunneled central venous catheter for dialysis access until the fistula is more mature. Renato Benjamin MD Dec 16, 2018 09:36
--- NOTE | 2018-12-16 11:30 | IPN ---
DATE: 12/16/2018 Mr. Lobo is seen this morning on his bedside. He is sitting at the edge of bed. He had a right upper arm fistulogram done this morning and possibly also had balloon angioplasty. I do not have an official report available as yet. The patient was dialyzed yesterday which he tolerated well. He denies any dyspnea, chest pain, nausea or vomiting. PHYSICAL EXAMINATION: Temperature 97.7 degrees Fahrenheit, heart rate 82 per minute and respiratory rate 20 per minute. Blood pressure 124/70 mmHg and oxygen saturation 99% on room air. Head is atraumatic. Right eye is blind. His neck is supple and JVD is difficult to be assessed. He has a right-sided internal jugular vein PermaCath in place. His heart sounds are irregular in rhythm and lungs with diminished breath sounds bilaterally. Abdomen: Soft, obese and nontender. Bowel sounds are present. Extremities: Have no cyanosis or clubbing. Right arm AV fistula is patent. Right forearm wound is covered with dressing. Neurologically he is at his baseline mentation without a focal deficit. Today's labs show WBC count 8.3, hemoglobin 9.4 and hematocrit 29.5. Platelets 121. Sodium 137, potassium 4.4, CO2 26, BUN 43 and creatinine 6.19. Calcium 8.2 and phosphorus 4.8. PROBLEMS: 1. End-stage renal disease. The patient was dialyzed yesterday and his next dialysis is due tomorrow which is his regular day. His electrolytes are stable and volume status is well-compensated. 2. Bacteremia with Klebsiella. The patient has been on cefepime 2 grams every 48 hours. We will continue with the same and he will receive cefepime 2 grams after every dialysis. I have checked with the outpatient dialysis clinic and they to have it available so he can get it as an outpatient. 3. Infected AV fistula right forearm. He has AV fistula was cleaned and has been ligated. He now has a new AV fistula in the right upper arm. Right now we are using PermaCath for dialysis. His AV fistula is not quite ready for use as yet. He just had a fistuloplasty done this morning. 4. Hyperkalemia. Potassium level has corrected and does not need any intervention. 5. Anemia. His anemia is stable and he will continue with Aranesp 200 mcg once a week here in the hospital. Once he goes home then he will receive Mircera in the outpatient. DISPOSITION: From a renal standpoint, the patient is medically stable for discharge. He will follow-up in outpatient dialysis clinic.
[2018-12-16] MEDS: GABAPENTIN 100 MG CAP PO SCH (12:12)
[2018-12-16] MEDS: hydrOXYzine 25 MG TAB PO PRN ×2 (12:12→21:43)
[2018-12-16] MEDS: BENZONATATE 100 MG CAP PO PRN ×2 (12:12→21:43)
[2018-12-16] MEDS: CEFEPIME HCL 2 GM in D5W MINI-BAG PLUS 50 ML IV SCH (12:12)
[2018-12-16] MEDS: ATORVASTATIN 20 MG TAB PO SCH (12:12)
[2018-12-16 14:00] VITALS: BP 115/75
--- NOTE | 2018-12-16 16:47 | IPNPDOC ---
Date Seen The patient was seen on 12/16/18. Progress Note SUBJECTIVE: Patient c/o right arm pain 5/10 on pain scale but improved with pain meds. no fever or chills . He is anxious to go home. s/p Right brachiocephalic arteriovenous fistulogram. Retrograde right brachial artery angiogram.Left cephalic vein angioplasty with 8 mm x [address] Benjamin 12/16/18 with plans for debridement of infected graft in am. OBJECTIVE: Physical Examination VITALS: PLS SEE BELOW General Appearance: Morbidly obese, lying in bed, fluent speech, face is symme tric, no respiratory distress or conversational dyspnea HEENT: He has clouding of the right cornea, left pupil is reactive. No jugular venous distention (JVD). moist mucus membranes poor dentition permcath. Lungs with decreased breath sounds, clear. no wheezing rales or rhonchi Heart: Regular rhythm. No murmur. Abdomen: Obese. Nontender. No masses. soft (+) bs x 4 quadrants. no rebound, guarding EXT: Trace peripheral edema. His right forearm is dressed. LABORATORY DATA, IMAGING STUDIES, MICROBIOLOGY: PLS SEE BELOW s/p Right brachiocephalic arteriovenous fistulogram. Retrograde right brachial artery angiogram.Left cephalic vein angioplasty with 8 mm x [address] Benjamin 12/16/18 with plans for debridement of infected graft in am. DATE OF PROCEDURE: 12/06/18 PREPROCEDURE DIAGNOSES: 1. Right upper extremity chronic ulcer 2. Right upper extremity abscess POSTPROCEDURE DIAGNOSES: Same. PROCEDURE: 1. Excisional debridement right upper extremity chronic ulcer, 10 cm debrided of skin, subcutaneous tissue. 2. Excisional debridement right upper extremity abscess cavity, 14 cm debrided of skin, subcutaneous tissue. 3. Ligation of proximal superficial veins 2 SURGEON: Kath Mattson MD ASSESSMENT AND PLAN 73-year-old gentleman with end-stage renal disease,on hemodialysis on Thursday, Thursday, Thursday, hyperlipidemia, neuropathy,diabetes mellitus type 2, morbid obesity, and history of ligation radiocephalic AV fistula due to chronic ulceration and bleeds with Coumadin therapy, now with superficial skin bleeding around this chronic ulcer as well as an abscess near the surgical incision from ligation of his AV fistula. RUE forearm abscess, hematoma, chronic ulcer. He is 1 month s/p ligation of RUE forearm radial cephalic AVF due to bleeding from chronic ulcer and creation of new RUE brachial cephalic AVF. 12/06/18 vascular surgery s/p Excisional debridement right upper extremity chronic ulcer, 10 cm debrided of skin, subcutaneous tissue. s/p Excisional debridement right upper extremity abscess cavity, 14 cm debrided of skin, subcutaneous tissue. s/p Ligation of proximal superficial veins 2 -blood cx: klebsiella on iv cefepime. -temporary perm cath for dialysis needs -s/p Right brachiocephalic arteriovenous fistulogram. Retrograde right brachial artery angiogram.Left cephalic vein angioplasty with 8 mm x [address] Benjamin 12/16/18 with plans for debridement of infected graft in am. Klebsiella bacteremia due to infected dialysis graft -on IV cefepime -negative repeat blood cultures. End-stage renal disease, on hemodialysis Thursday, Thursday, Thursday. -managed by nephrology Hyperlipidemia. -on lipitor Neuropathy. -complicating care Diabetes mellitus, type 2. -consistent carbs renal diet -sliding scale Morbid obesity.BMI 43 -complicating care -h/o elisha Metabolic Syndrome -morbid obesity -hyperlipidemia -complicating care Hypertension. -on metoprolol Coronary artery disease. -on lipitor and metoprolol Gastroesophageal reflux disease. Atrial fibrillation. -on metoprolol for rate control -on coumadin for anticoagulation Obstructive sleep apnea. -cpap qhs VS, I&O, 24H, Fishbone VS, I&O, 24H, Fishbone Vital Signs/I&O Vital Signs Date Time Temp Pulse Resp B/P (MAP) Pulse Ox O2 Delivery O2 Flow Rate FiO2 12/16/18 07:59 82 20 99 12/16/18 07:33 2 12/16/18 07:01 97.7 12/16/18 06:00 121/82 (95) I&O- Last 24 Hours up to 6 AM 12/16/18 06:00 Intake Total 1340 ml Output Total 4000 ml Balance -2660 ml Laboratory Data 24H LABS Laboratory Tests 2 12/15/18 13:03: Bedside Glucose (Misc Panel) 95 12/15/18 16:49: Bedside Glucose (Misc Panel) 161H 12/16/18 05:22: Nucleated Red Blood Cells % (auto) 0.0, Prothrombin Time 21.6H, Prothromb Time International Ratio 1.90, Blood Urea Nitrogen 43H, Creatinine 6.19H, Sodium Level 137, Potassium Level 4.4, Chloride Level 103, Carbon Dioxide Level 26, Anion Gap 8, Glomerular Filtration Rate 11.6L, Calcium Level 8.2L, Phosphorus Level 4.8, Albumin 2.8L CBC/BMP Laboratory Tests 12/16/18 05:22 Red Blood Count 2.85 L, Mean Corpuscular Volume 103.5 H, Mean Corpuscular Hemoglobin 33.0, Mean Corpuscular Hemoglobin Concent 31.9 L, Red Cell Distribution Width 17.9 H, Anion Gap 8 Microbiology Microbiology 12/10/18 Blood Culture - Final, Complete NO GROWTH AFTER 5 DAYS 12/10/18 Blood Culture - Final, Complete NO GROWTH AFTER 5 DAYS 12/08/18 Blood Culture - Final, Complete NO GROWTH AFTER 5 DAYS 12/06/18 Blood Culture - Final, Complete Klebsiella Oxytoca 12/06/18 Blood Culture - Final, Complete Klebsiella Oxytoca 12/06/18 Gram Stain - Final, Complete 12/06/18 Wound Culture - Final, Complete Klebsiella Oxytoca 12/06/18 Abscess Culture - Final, Complete Klebsiella Oxytoca MARIPOSA CARRERO MD Dec 16, 2018 08:59
[2018-12-16] MEDS: WARFARIN SOD 3 MG TAB PO SCH (21:42)
[2018-12-16 22:00] VITALS: BP 124/61
[2018-12-17] VITALS (8 sets, daily range): BP systolic 107–153; BP diastolic 64–94
[2018-12-17 06:21] LABS: INR 2.28; PROTHROMBIN TIME 24.9 SECONDS (11.8-14.0)
[2018-12-17] MEDS: BENZONATATE 100 MG CAP PO PRN (06:32)
[2018-12-17] MEDS: OYSTER SHELL CALCIUM 500 MG TAB PO SCH (06:32)
[2018-12-17] MEDS: METOPROLOL TART 25 MG TABLET PO SCH ×2 (06:32→21:55)
[2018-12-17] MEDS: hydrOXYzine 25 MG TAB PO PRN (06:32)
[2018-12-17] MEDS: NEPHRO-VIT TAB (NEPHROCAPS) PO SCH (06:32)
[2018-12-17 07:23] LABS: BASO # 0.1 10^3/uL (0.0-0.2); BASO % 0.7 % (0.0-1.0); EOS # 0.2 10^3/uL (0.0-0.50); EOS % 2.8 % (0.0-3.0); HEMATOCRIT 30.5 % (42.0-52.0); HEMOGLOBIN 9.9 g/dl (13.5-17.5); LYMPH # 1.1 10^3/uL (1.5-4.5); LYMPH % 12.9 % (24.0-44.0); MEAN CORPUSCULAR HEMOGLOBIN 33.7 pg (27.0-33.0); MEAN CORPUSCULAR HGB CONC 32.5 g/dl (32.0-36.5); MEAN CORPUSCULAR VOLUME 103.7 fl (80.0-96.0); MONO # 1.5 10^3/uL (0.0-0.8); MONO % 17.5 % (0.0-5.0); NEUTROPHILS # 5.6 10^3/uL (1.8-7.7); NEUTROPHILS % 65.4 % (36.0-66.0); PLATELET COUNT, AUTOMATED 129 10^3/uL (150-450); RED BLOOD COUNT 2.94 10^6/uL (4.30-6.10); WHITE BLOOD COUNT 8.6 10^3/uL (4.0-10.0)
[2018-12-17] MEDS: HumaLOG INSULIN (NovoLOG) PER UNIT SC SCH ×4 (07:27→21:00)
[2018-12-17] MEDS: IPRATROPIUM 0.5MG/ALBUTEROL 2.5MG INH SOL UD 3ML (DUONEB)(J7620) NEB SCH ×4 (07:36→20:37)
[2018-12-17 07:53] LABS: CALCIUM LEVEL 8.3 MG/DL (8.8-10.2); CREATININE FOR GFR 7.87 MG/DL (0.70-1.30); GLOMERULAR FILTRATION RATE 8.8 (>42); POTASSIUM SERUM 4.9 MEQ/L (3.5-5.1)
--- NOTE | 2018-12-17 09:56 | IPNPDOC ---
Date Seen The patient was seen on 12/17/18. Progress Note Vascular Surgery Dr Benjamin. HPI: Mr Yamil is a 73yoM s/p excisional debridement RUE forearm abscess, hematoma, chronic ulcer. He is 1 month s/p ligation of RUE forearm radial cephalic AVF due to bleeding from chronic ulcer and creation of new RUE brachial cephalic AVF. No drainage reported from Permcath. S/P Fistulogram as per Dr Benjamin 12/16/18. Denies any fevers, chills, weakness, fatigue, Headache, Chest Pain, Shortness of breath, cough, palpitations, abdominal pain, N/V/D or changes in bowel or bladder habits. PE: GEN: 73yoM, appears stated age. No acute distress. HEENT: Normocephalic, atraumatic. Moist mucous membranes. CHEST: Regular rate and rhythm, +S1, +S2 LUNGS: Clear to auscultation bilaterally. No wheezes, rales, or rhonchi. ABD: Round, soft, non-tender, non-distended. EXT: No lower extremity edema appreciated. dressing intact RUE forearm. Thrill noted over AVF RUE fistula upper arm. SKIN: [place], dry, warm. No rashes. NEURO: Alert and oriented x 3. No focal deficits appreciated. A&P: S/P excisional debridement RUE forearm abscess, hematoma, chronic ulcer. Continue dressing changes LUE forearm with hydrofera blue rope or foam, foam, coban, and avoid compression antecubital crease with coban so we do not limit inflow to new AVF upper arm. The pt is reviewed and examined as per Dr Benjamin with plan for OR 12/17/18 for debridement of Rt forearm wound. Plan is for follow up at the wound care center, Dr Weinberg, for RUE wound at discharge. IV cefepime as per primary team. ESRD. plan to continue dialysis with permcath for now. S/P creation of new RUE brachial cephalic AVF 11/03/18. Fistulogram 12/16/[address] Benjamin fistula is not yet functional, plan for fistulogram 1-2 weeks. Would like to try to get the AVF functioning for HD access so that the Permcath can be removed. Klebsiella bacteremia. Patient is afebrile, WBC 8.6. IV cefepime as per primary team. DVT prophylaxis. Pt is on Coumadin. [facility]&O Vital Signs Date Time Temp Pulse Resp B/P (MAP) Pulse Ox O2 Delivery O2 Flow Rate FiO2 12/17/18 06:32 83 117/65 12/17/18 06:00 97.9 20 98 12/16/18 07:33 2 I&O- Last 24 Hours up to 6 AM 12/17/18 06:00 Intake Total 1700 ml Output Total 0 ml Balance 1700 ml Laboratory Data 24H LABS Laboratory Tests 2 12/16/18 11:51: Bedside Glucose (Misc Panel) 90 12/16/18 16:42: Bedside Glucose (Misc Panel) 114H 12/16/18 20:56: Bedside Glucose (Misc Panel) 199H 12/17/18 05:58: Prothrombin Time 24.9H, Prothromb Time International Ratio 2.28 12/17/18 06:06: Bedside Glucose (Misc Panel) 171H 12/17/18 07:05: Immature Granulocyte % (Auto) 0.7, White Blood Count 8.6, Red Blood Count 2.94L, Hemoglobin 9.9L, Hematocrit 30.5L, Mean Corpuscular Volume 103.7H, Mean Corpuscular Hemoglobin 33.7H, Mean Corpuscular Hemoglobin Concent 32.5, Red Cell Distribution Width 18.2H, Platelet Count 129L, Neutrophils (%) (Auto) 65.4, Lymphocytes (%) (Auto) 12.9L, Monocytes (%) (Auto) 17.5H, Eosinophils (%) (Auto) 2.8, Basophils (%) (Auto) 0.7, Neutrophils # (Auto) 5.6, Lymphocytes # (Auto) 1.1L, Monocytes # (Auto) 1.5H, Eosinophils # (Auto) 0.2, Basophils # (Auto) 0.1, Nucleated Red Blood Cells % (auto) 0.3H, Anion Gap 10, Glomerular Filtration Rate 8.8L, Blood Urea Nitrogen 59H, Creatinine 7.87H, Sodium Level 139, Potassium Level 4.9, Chloride Level 103, Carbon Dioxide Level 26, Calcium Level 8.3L CBC/BMP Laboratory Tests 12/17/18 07:05 Red Blood Count 2.94 L, Mean Corpuscular Volume 103.7 H, Mean Corpuscular Hemoglobin 33.7 H, Mean Corpuscular Hemoglobin Concent 32.5, Red Cell Distribution Width 18.2 H, Neutrophils (%) (Auto) 65.4, Lymphocytes (%) (Auto) 12.9 L, Monocytes (%) (Auto) 17.5 H, Eosinophils (%) (Auto) 2.8, Basophils (%) (Auto) 0.7, Neutrophils # (Auto) 5.6, Lymphocytes # (Auto) 1.1 L, Monocytes # (A uto) 1.5 H, Eosinophils # (Auto) 0.2, Basophils # (Auto) 0.1, Calcium Level 8.3 L Microbiology Microbiology 12/17/18 Blood Culture, Received Pending 12/10/18 Blood Culture - Final, Complete NO GROWTH AFTER 5 DAYS 12/10/18 Blood Culture - Final, Complete NO GROWTH AFTER 5 DAYS 12/08/18 Blood Culture - Final, Complete NO GROWTH AFTER 5 DAYS Betty Hernandez Dec 17, 2018 09:55
[2018-12-17] MEDS ORDERED: HEPARIN 1,000 UNITS/ML 10ML VIAL (FOR RADIOLOGY& DIALYSIS ONLY) IV ONE (10:00)
[2018-12-17] MEDS ORDERED: HEPARIN 1,000 UNITS/ML 10ML VIAL (FOR RADIOLOGY& DIALYSIS ONLY) XX ONE (10:00)
[2018-12-17] MEDS: ATORVASTATIN 20 MG TAB PO SCH (13:20)
[2018-12-17] MEDS: GABAPENTIN 100 MG CAP PO SCH (13:20)
[2018-12-17] MEDS ORDERED: DEXTROSE 50% 50 ML SYRINGE IV STA (14:25)
[2018-12-17] MEDS ORDERED: D5W 500 ML IV ONE (15:00)
[2018-12-17] MEDS ORDERED: PROPOFOL 200 MG/20 ML VIAL As Ordered ONE (15:42)
[2018-12-17] MEDS ORDERED: LIDOCAINE 2% INJ 100 MG/5 ML SDV (FOR ANES.) As Ordered ONE (15:43)
[2018-12-17] MEDS ORDERED: fentaNYL 100 MCG/2 ML INJECTION (J3010) As Ordered ONE (15:43)
[2018-12-17] MEDS ORDERED: ONDANSETRON 4MG/2ML VIAL (J2405) As Ordered ONE (15:43)
[2018-12-17] MEDS ORDERED: dexameTHASONE 4 MG/ML 1ML VIAL (J1100) As Ordered ONE (15:43)
[2018-12-17] MEDS ORDERED: GLYCOPYRROLATE INJ 0.2 MG/ML 2 ML VIAL As Ordered ONE ×3 (15:50→17:02)
[2018-12-17] MEDS ORDERED: NEOSTIGMINE 10 MG/10 ML VIAL (J2710) As Ordered ONE (15:50)
[2018-12-17] MEDS: PHENYLephrine HCL 500 MCG/5 ML (100MCG/ML) SYRINGE (J2370) IV PRN ×2 (17:39→17:43)
--- NOTE | 2018-12-17 17:46 | IPN ---
DATE: 12/17/2018 Mr. Lobo is seen this morning during hemodialysis. He is resting comfortably. He was short of breath and had cough at the start of dialysis. We are trying to remove about 4.5 liters of fluid today. PHYSICAL EXAMINATION: Temperature 97.9 degrees Fahrenheit, heart rate 84 per minute, respiratory rate 20 per minute, blood pressure 117/65 mm of mercury, and oxygen saturation 95% on room air. His right eye is blind. Head is atraumatic. Neck is supple and jugular venous distention (JVD) difficult to be assessed. He has a right-sided internal jugular vein Perm-A-Cath on right upper chest. Heart sounds are irregular in rhythm. Lungs with diminished breath sounds. Abdomen soft, obese, and nontender, and bowel sounds are present. Extremities have no cyanosis or clubbing. Right forearm wound is covered with dressing, and right upper arm arteriovenous (AV) fistula is patent. Today's labs show WBC count 8.6, hemoglobin 9.9, hematocrit 30.5. platelets 129. Sodium 139, potassium 4.9, BUN 59, and creatinine 7.87. PROBLEMS: 1. End-stage renal disease. The patient is being dialyzed and tolerating dialysis well. 2. Congestive heart failure. His volume status is slightly decompensated, and we are trying to remove 4-1/2 liters of fluid today. The patient needs to follow his fluid restriction of 1500 mL per day. 3. Klebsiella sepsis. The patient has been afebrile and remains on cefepime. He will continue with intravenous cefepime 2 grams after each dialysis for one more week if he gets discharged. I have already confirmed with outpatient dialysis clinic about the availability of cefepime. 4. Anemia. His anemia is stable, and we will continue to manage it with dialysis. 5. Atrial fibrillation. Ventricular rate is reasonably well controlled and will continue with current treatment.
--- NOTE | 2018-12-17 17:55 | IPNPDOC ---
Date Seen The patient was seen on 12/17/18. Progress Note SUBJECTIVE: Pt was kept npo after breakfast for debridement of infected graft, placed on hypoglycemic protocol and gentle hydration. He continued on hemodialysis today. blood cx remained negative x 2 sets since being on iv abx. no c/o fever, but says he gets cold at times. OBJECTIVE: Physical Examination VITALS: PLS SEE BELOW General Appearance: Morbidly obese, lying in bed, fluent speech, face is symmetric, no respiratory distress or conversational dyspnea HEENT: He has clouding of the right cornea, left pupil is reactive. No jugular venous distention (JVD). moist mucus membranes poor dentition permcath. Lungs with decreased breath sounds, clear. no wheezing rales or rhonchi Heart: Regular rhythm. No murmur. Abdomen: Obese. Nontender. No masses. soft (+) bs x 4 quadrants. no rebound, guarding EXT: Trace peripheral edema. His right forearm is dressed. LABORATORY DATA, IMAGING STUDIES, MICROBIOLOGY: PLS SEE BELOW s/p Right brachiocephalic arteriovenous fistulogram. Retrograde right brachial artery angiogram.Left cephalic vein angioplasty with 8 mm x [address] Benjamin 12/16/18 with plans for debridement of infected graft in am. DATE OF PROCEDURE: 12/06/18 PREPROCEDURE DIAGNOSES: 1. Right upper extremity chronic ulcer 2. Right upper extremity abscess POSTPROCEDURE DIAGNOSES: Same. PROCEDURE: 1. Excisional debridement right upper extremity chronic ulcer, 10 cm debrided of skin, subcutaneous tissue. 2. Excisional debridement right upper extremity abscess cavity, 14 cm debrided of skin, subcutaneous tissue. 3. Ligation of proximal superficial veins 2 SURGEON: Kath Mattson MD ASSESSMENT AND PLAN 73-year-old gentleman with end-stage renal disease,on hemodialysis on Thursday, Thursday, Thursday, hyperlipidemia, neuropathy,diabetes mellitus type 2, morbid obesity, and history of ligation radiocephalic AV fistula due to chronic ulceration and bleeds with Coumadin therapy, now with superficial skin bleeding around this chronic ulcer as well as an abscess near the surgical incision from ligation of his AV fistula. RUE forearm abscess, hematoma, chronic ulcer. He is 1 month s/p ligation of RUE forearm radial cephalic AVF due to bleeding from chronic ulcer and creation of new RUE brachial cephalic AVF. 12/06/18 vascular surgery s/p Excisional debridement right upper extremity chronic ulcer, 10 cm debrided of skin, subcutaneous tissue. s/p Excisional debridement right upper extremity abscess cavity, 14 cm debrided of skin, subcutaneous tissue. s/p Ligation of proximal superficial veins 2 -blood cx: klebsiella on iv cefepime. -temporary perm cath for dialysis needs -s/p Right brachiocephalic arteriovenous fistulogram. Retrograde right brachial artery angiogram.Left cephalic vein angioplasty with 8 mm x [address] Martha Benjamin 12/16/18 -debridement of infected graft 12/17/18 Klebsiella bacteremia due to infected dialysis graft -on IV cefepime -negative repeat blood cultures. End-stage renal disease, on hemodialysis Thursday, Thursday, Thursday. -managed by nephrology Hyperlipidemia. -on lipitor Neuropathy. -complicating care Diabetes mellitus, type 2. -consistent carbs renal diet -sliding scale Morbid obesity.BMI 43 -complicating care -h/o elisha Metabolic Syndrome -morbid obesity -hyperlipidemia -complicating care Hypertension. -on metoprolol Coronary artery disease. -on lipitor and metoprolol Gastroesophageal reflux disease. Atrial fibrillation. -on metoprolol for rate control -on coumadin for anticoagulation Obstructive sleep apnea. -cp[facility]hs VS[facility] Sign[facility]/I&O Vital Signs Date Time Temp Pulse Resp B/P (MAP) Pulse Ox O2 Delivery O2 Flow Rate FiO2 12/17/18 14:00 97.9 94 18 137/68 (91) 97 12/16/18 07:33 2 I&O- Last 24 Hours up to 6 AM 12/17/18 05:59 Intake Total 1520 ml Output Total 0 ml Balance 1520 ml Laboratory Data 24H LABS Laboratory Tests 2 12/16/18 20:56: Bedside Glucose (Misc Panel) 199H 12/17/18 05:58: Prothrombin Time 24.9H, Prothromb Time International Ratio 2.28 12/17/18 06:06: Bedside Glucose (Misc Panel) 171H 12/17/18 07:05: Immature Granulocyte % (Auto) 0.7, White Blood Count 8.6, Red Blood Count 2.94L, Hemoglobin 9.9L, Hematocrit 30.5L, Mean Corpuscular Volume 103.7H, Mean Corpuscular Hemoglobin 33.7H, Mean Corpuscular Hemoglobin Concent 32.5, Red Cell Distribution Width 18.2H, Platelet Count 129L, Neutrophils (%) (Auto) 65.4, Lymphocytes (%) (Auto) 12.9L, Monocytes (%) (Auto) 17.5H, Eosinophils (%) (Auto) 2.8, Basophils (%) (Auto) 0.7, Neutrophils # (Auto) 5.6, Lymphocytes # (Auto) 1.1L, Monocytes # (Auto) 1.5H, Eosinophils # (Auto) 0.2, Basophils # (Auto) 0.1, Nucleated Red Blood Cells % (auto) 0.3H, Anion Gap 10, Glomerular Filtration Rate 8.8L, Blood Urea Nitrogen 59H, Creatinine 7.87H, Sodium Level 139, Po tassium Level 4.9, Chloride Level 103, Carbon Dioxide Level 26, Calcium Level 8.3L 12/17/18 13:09: Bedside Glucose (Misc Panel) 75L 12/17/18 14:19: Bedside Glucose (Misc Panel) 78L 12/17/18 17:31: Bedside Glucose (Misc Panel) 81L CBC/BMP Laboratory Tests 12/17/18 07:05 Red Blood Count 2.94 L, Mean Corpuscular Volume 103.7 H, Mean Corpuscular Hemoglobin 33.7 H, Mean Corpuscular Hemoglobin Concent 32.5, Red Cell Distribu tion Width 18.2 H, Neutrophils (%) (Auto) 65.4, Lymphocytes (%) (Auto) 12.9 L, Monocytes (%) (Auto) 17.5 H, Eosinophils (%) (Auto) 2.8, Basophils (%) (Auto) 0.7, Neutrophils # (Auto) 5.6, Lymphocytes # (Auto) 1.1 L, Monocytes # (Auto) 1.5 H, Eosinophils # (Auto) 0.2, Basophils # (Auto) 0.1, Calcium Level 8.3 L Microbiology Microbiology 12/17/18 Blood Culture, Received Pending 12/17/18 Blood Culture, Received Pending 12/10/18 Blood Culture - Final, Complete NO GROWTH AFTER 5 DAYS 12/10/18 Blood Culture - Final, Complete NO GROWTH AFTER 5 DAYS 12/08/18 Blood Culture - Final, Complete NO GROWTH AFTER 5 DAYS MARIPOSA CARRERO MD Dec 17, 2018 17:55
[2018-12-17] MEDS: WARFARIN SOD 3 MG TAB PO SCH (21:54)
[2018-12-18] MEDS: hydrOXYzine 25 MG TAB PO PRN ×3 (00:50→21:26)
[2018-12-18] MEDS: BENZONATATE 100 MG CAP PO PRN ×3 (00:50→21:26)
[2018-12-18 06:00] VITALS: BP 124/73
[2018-12-18] MEDS: IPRATROPIUM 0.5MG/ALBUTEROL 2.5MG INH SOL UD 3ML (DUONEB)(J7620) NEB SCH ×4 (07:46→21:10)
[2018-12-18] MEDS: NEPHRO-VIT TAB (NEPHROCAPS) PO SCH (08:14)
[2018-12-18] MEDS: METOPROLOL TART 25 MG TABLET PO SCH ×2 (08:14→21:27)
[2018-12-18] MEDS: OYSTER SHELL CALCIUM 500 MG TAB PO SCH (08:14)
[2018-12-18] MEDS: HumaLOG INSULIN (NovoLOG) PER UNIT SC SCH ×4 (08:14→21:00)
--- NOTE | 2018-12-18 09:28 | IPNPDOC ---
Date Seen The patient was seen on 12/18/18. Progress Note SUBJECTIVE: S/P 12/17/18 debridement of infected graft by Dr. Benjamin. no episodes of bleeding overnight. afebrile, no chills. on iv cefepime. Pt cleared by both vascular surgery and nephrology for discharge home. He has passed home safety evaluation by physical therapy and pt is anxious to go home. However, per RN, wound vac unavailable and unlikely for dc today. OBJECTIVE: Physical Examination VITALS: PLS SEE BELOW General Appearance: Morbidly obese, lying in bed, fluent speech, face is symmetric, no respiratory distress or conversational dyspnea HEENT: He has clouding of the right cornea, left pupil is reactive. No jugular venous distention (JVD). moist mucus membranes poor dentition permcath. Lungs with decreased breath sounds, clear. no wheezing rales or rhonchi Heart: Regular rhythm. No murmur. Abdomen: Obese. Nontender. No masses. soft (+) bs x 4 quadrants. no rebound, guarding EXT: Trace peripheral edema. His right forearm is dressed. LABORATORY DATA, IMAGING STUDIES, MICROBIOLOGY: PLS SEE BELOW Date of procedure: 12/17/18 debridement of infected graft-dr benjamin Date of Procedure: 12/16/18 s/p Right brachiocephalic arteriovenous fistulogram. Retrograde right brachial artery angiogram.Left cephalic vein angioplasty with 8 mm x [address] Benjamin DATE OF PROCEDURE: 12/06/18 PREPROCEDURE DIAGNOSES: 1. Right upper extremity chronic ulcer 2. Right upper extremity abscess POSTPROCEDURE DIAGNOSES: Same. PROCEDURE: 1. Excisional debridement right upper extremity chronic ulcer, 10 cm debrided of skin, subcutaneous tissue. 2. Excisional debridement right upper extremity abscess cavity, 14 cm debrided of skin, subcutaneous tissue. 3. Ligation of proximal superficial veins 2 SURGEON: Kath Mattson MD ASSESSMENT AND PLAN 73-year-old gentleman with end-stage renal disease,on hemodialysis on Thursday, Thursday, Thursday, hyperlipidemia, neuropathy,diabetes mellitus type 2, morbid obesity, and history of ligation radiocephalic AV fistula due to chronic ulceration and bleeds with Coumadin therapy, now with superficial skin bleeding around this chronic ulcer as well as an abscess near the surgical incision from ligation of his AV fistula. RUE forearm abscess, hematoma, chronic ulcer. He is 1 month s/p ligation of RUE forearm radial cephalic AVF due to bleeding from chronic ulcer and creation of new RUE brachial cephalic AVF. 12/06/18 vascular surgery s/p Excisional debridement right upper extremity chronic ulcer, 10 cm debrided of skin, subcutaneous tissue. s/p Excisional debridement right upper extremity abscess cavity, 14 cm debrided of skin, subcutaneous tissue. s/p Ligation of proximal superficial veins 2 -blood cx: klebsiella on iv cefepime. -temporary perm cath for dialysis needs -s/p Right brachiocephalic arteriovenous fistulogram. Retrograde right brachial artery angiogram.Left cephalic vein angioplasty with 8 mm x [address] Benjamin 12/16/18 -debridement of infected graft 12/17/18 Klebsiella bacteremia due to infected dialysis graft -on IV cefepime needs to complete one more week -negative repeat blood cultures. End-stage renal disease, on hemodialysis Thursday, Thursday, Thursday. -managed by nephrology Hyperlipidemia. -on lipitor Neuropathy. -complicating care Diabetes mellitus, type 2. -consistent carbs renal diet -sliding scale Morbid obesity.BMI 43 -complicating care -h/o elisha Metabolic Syndrome -morbid obesity -hyperlipidemia -complicating care Hypertension. -on metoprolol Coronary artery disease. -on lipitor and metoprolol Gastroesophageal reflux disease. Atrial fibrillation. -on metoprolol for rate control -on coumadin for anticoagulation Obstructive sleep apnea. -cpap qhs VS, I&O, 24H, Fishbone Vital Signs/I&O Vital Signs Date Time Temp Pulse Resp B/P (MAP) Pulse Ox O2 Delivery O2 Flow Rate FiO2 12/18/18 08:14 81 124/73 12/18/18 06:00 96.8 20 94 12/17/18 17:50 15 I&O- Last 24 Hours up to 6 AM 12/18/18 06:00 Intake Total 920 ml Output Total 4515 ml Balance -3595 ml Laboratory Data 24H LABS Laboratory Tests 2 12/17/18 13:09: Bedside Glucose (Misc Panel) 75L 12/17/18 14:19: Bedside Glucose (Misc Panel) 78L 12/17/18 17:31: Bedside Glucose (Misc Panel) 81L 12/17/18 18:46: Bedside Glucose (Misc Panel) 100 8/2/19 20:51: Bedside Glucose (Misc Panel) 189H 12/17/18 21:04: Bedside Glucose (Misc Panel) 209H 12/18/18 07:54: Bedside Glucose (Misc Panel) 169H 12/18/18 08:47: Microbiology Microbiology 12/17/18 Blood Culture, Received Pending 12/17/18 Blood Culture - Preliminary, Resulted No growth after 24 hours . All specim... 12/10/18 Blood Culture - Final, Complete NO GROWTH AFTER 5 DAYS 12/10/18 Blood Culture - Final, Complete NO GROWTH AFTER 5 DAYS 12/08/18 Blood Culture - Final, Complete NO GROWTH AFTER 5 DAYS MARIPOSA CARRERO MD Dec 18, 2018 09:27
[2018-12-18 09:29] LABS: INR 2.29
[2018-12-18 10:00] VITALS: BP 121/72
[2018-12-18] MEDS: GABAPENTIN 100 MG CAP PO SCH (12:26)
[2018-12-18] MEDS: ATORVASTATIN 20 MG TAB PO SCH (12:26)
[2018-12-18 14:00] VITALS: BP 150/88
[2018-12-18] MEDS: CEFEPIME HCL 2 GM in D5W MINI-BAG PLUS 50 ML IV SCH (16:13)
[2018-12-18] MEDS: ACETAMINOPHEN TAB 650MG DOSE (2X325MG) PO PRN (16:20)
[2018-12-18] MEDS: WARFARIN SOD 3 MG TAB PO SCH (21:26)
[2018-12-18 22:00] VITALS: BP 146/86
[2018-12-19 06:00] VITALS: BP 112/65
[2018-12-19] MEDS: IPRATROPIUM 0.5MG/ALBUTEROL 2.5MG INH SOL UD 3ML (DUONEB)(J7620) NEB SCH ×4 (07:12→19:48)
[2018-12-19] MEDS: OYSTER SHELL CALCIUM 500 MG TAB PO SCH (08:18)
[2018-12-19] MEDS: hydrOXYzine 25 MG TAB PO PRN ×2 (08:18→21:34)
[2018-12-19] MEDS: HumaLOG INSULIN (NovoLOG) PER UNIT SC SCH ×4 (08:18→21:00)
[2018-12-19] MEDS: NEPHRO-VIT TAB (NEPHROCAPS) PO SCH (08:18)
[2018-12-19] MEDS: BENZONATATE 100 MG CAP PO PRN ×2 (08:18→21:34)
[2018-12-19] MEDS: METOPROLOL TART 25 MG TABLET PO SCH ×2 (08:19→21:33)
--- NOTE | 2018-12-19 10:31 | IPN ---
DATE: 12/18/2018 SUBJECTIVE: The patient was seen and examined at the bedside. The patient is afebrile, hemodynamically stable. He denies any active complaints. He was dialyzed yesterday. He tolerated the hemodialysis procedure well. He continues to have a wound VAC on the right forearm ulcer site. OBJECTIVE: VITAL SIGNS: Temperature is 97.9 degrees Fahrenheit, blood pressure 150/88, pulse is 85, respiratory of 18, saturating 97% on room air. INTAKE AND OUTPUT: There is no urine output recorded. Ultrafiltration with hemodialysis was 4.5 liters. Weight on the bed scale is not available. PHYSICAL EXAMINATION: GENERAL: The patient is awake, alert, oriented times three, sitting up in the bed, morbidly obese, no apparent distress. HEAD AND NECK EXAM: The patient has right eye blindness. Neck is supple. He has a right IJ tunneled hemodialysis catheter. CARDIOVASCULAR: S1, S1 regular rate. 1+ edema of the bilateral lower extremities. RESPIRATORY: Chest is clear to auscultation bilaterally. Bilateral equal air entry. No rales or rhonchi. ABDOMEN: Soft, obese, positive bowel sounds. Nontender. MUSCULOSKELETAL: Left transmetatarsal amputation. Right forearm fistula site infection is covered with a wound VAC. 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 LAB REVIEW: CBC showed WBC of 8.6 and hemoglobin 9.9 yesterday and BMP is also from yesterday. CURRENT INPATIENT MEDICATIONS: The patient's medications were all reviewed by me. There is no significant change in the medications today as compared with yesterday. He continues to get cefepime 2 grams IV with hemodialysis. ASSESSMENT/PLAN: 1. End-stage renal disease on hemodialysis. The patient's regular dialysis days are Thursday, Thursday, Thursday. He was dialyzed yesterday. Next hemodialysis will be after the weekend. 2. Right forearm wound infection and Klebsiella bacteremia. The patient continues to be on IV cefepime. Repeat blood cultures from December 08 onward are negative. If the patient is discharged he will need to continue IV cefepime with dialysis. 3. Anemia in end-stage renal disease, hemoglobin is 9.9 which is acceptable. Continue current dose of Aranesp 200 mcg IV with dialysis. 4. Diastolic congestive heart failure. Volume status is being optimized with dialysis. 4.5 liters of fluid was removed yesterday.
[2018-12-19] MEDS: ATORVASTATIN 20 MG TAB PO SCH (12:54)
[2018-12-19] MEDS: GABAPENTIN 100 MG CAP PO SCH (12:54)
[2018-12-19 14:00] VITALS: BP_SYST 138; BP_SYST 144; BP_DIAS 34; BP_DIAS 90
--- NOTE | 2018-12-19 16:21 | IPNPDOC ---
Text Note Date of Service The patient was seen on 12/19/18. NOTE SUBJECTIVE: S/P patient seen and examined at bedside. Has no complaints. OBJECTIVE: Physical Examination VITALS: PLS SEE BELOW General Appearance: Morbidly obese, lying in bed, fluent speech, face is symmetric, no respiratory distress or conversational dyspnea HEENT: He has clouding of the right cornea, left pupil is reactive. No jugular venous distention (JVD). moist mucus membranes poor dentition permcath. Lungs with decreased breath sounds, clear. no wheezing rales or rhonchi Heart: Regular rhythm. No murmur. Abdomen: Obese. Nontender. No masses. soft (+) bs x 4 quadrants. no rebound, guarding EXT: Trace peripheral edema. His right forearm is dressed. LABORATORY DATA, IMAGING STUDIES, MICROBIOLOGY: PLS SEE BELOW Date of procedure: 12/17/18 debridement of infected graft-dr benjamin Date of Procedure: 12/16/18 s/p Right brachiocephalic arteriovenous fistulogram. Retrograde right brachial artery angiogram.Left cephalic vein angioplasty with 8 mm x [address] Benjamin DATE OF PROCEDURE: 12/06/18 PREPROCEDURE DIAGNOSES: 1. Right upper extremity chronic ulcer 2. Right upper extremity abscess POSTPROCEDURE DIAGNOSES: Same. PROCEDURE: 1. Excisional debridement right upper extremity chronic ulcer, 10 cm debrided of skin, subcutaneous tissue. 2. Excisional debridement right upper extremity abscess cavity, 14 cm debrided of skin, subcutaneous tissue. 3. Ligation of proximal superficial veins 2 SURGEON: Kath Mattson MD ASSESSMENT AND PLAN 73-year-old gentleman with end-stage renal disease,on hemodialysis on Thursday, Thursday, Thursday, hyperlipidemia, neuropathy,diabetes mellitus type 2, morbid obesity, and history of ligation radiocephalic AV fistula due to chronic ulceration and bleeds with Coumadin therapy, now with superficial skin bleeding around this chronic ulcer as well as an abscess near the surgical incision from ligation of his AV fistula. RUE forearm abscess, hematoma, chronic ulcer. He is 1 month s/p ligation of RUE forearm radial cephalic AVF due to bleeding from chronic ulcer and creation of new RUE brachial cephalic AVF. 12/06/18 vascular surgery s/p Excisional debridement right upper extremity chronic ulcer, 10 cm debrided of skin, subcutaneous tissue. s/p Excisional debridement right upper extremity abscess cavity, 14 cm debri ded of skin, subcutaneous tissue. s/p Ligation of proximal superficial veins 2 -blood cx: klebsiella on iv cefepime. -temporary perm cath for dialysis needs -s/p Right brachiocephalic arteriovenous fistulogram. Retrograde right brachial artery angiogram.Left cephalic vein angioplasty with 8 mm x [address] Benjamin 12/16/18 -debridement of infected graft 12/17/18 Klebsiella bacteremia due to infected dialysis graft -on IV cefepime needs to complete one more week -negative repeat blood cultures. End-stage renal disease, on hemodialysis Thursday, Thursday, Thursday. -managed by nephrology Hyperlipidemia. -on lipitor Neuropathy. -complicating care Diabetes mellitus, type 2. -consistent carbs renal diet -sliding scale Morbid obesity.BMI 43 -complicating care -h/o elisha Metabolic Syndrome -morbid obesity -hyperlipidemia -complicating care Hypertension. -on metoprolol Coronary artery disease. -on lipitor and metoprolol Gastroesophageal reflux disease. Atrial fibrillation. -on metoprolol for rate control -on coumadin for anticoagulation Obstructive sleep apnea. -cpap qhs VS,Fishbone, I+O VS, Fishbone, I+O Vital Signs Date Time Temp Pulse Resp B/P (MAP) Pulse Ox O2 Delivery O2 Flow Rate FiO2 12/19/18 14:00 96.5 86 18 144/90 (108) 98 12/17/18 17:50 15 I&O- Last 24 Hours up to 6 AM 12/19/18 05:59 Intake Total 2400 ml Output Total 0 ml Balance 2400 ml PELON METCALF MD Dec 19, 2018 16:21
[2018-12-19 20:35] LABS: INR 2.45; PROTHROMBIN TIME 26.4 SECONDS (11.8-14.0)
[2018-12-19] MEDS: WARFARIN SOD 3 MG TAB PO SCH (21:32)
[2018-12-19 22:00] VITALS: BP 130/86
[2018-12-20 05:31] LABS: BASO # 0.1 10^3/uL (0.0-0.2); BASO % 0.7 % (0.0-1.0); EOS # 0.2 10^3/uL (0.0-0.50); EOS % 1.9 % (0.0-3.0); HEMOGLOBIN 9.9 g/dl (13.5-17.5); LYMPH # 1.3 10^3/uL (1.5-4.5); LYMPH % 13.6 % (24.0-44.0); MEAN CORPUSCULAR HEMOGLOBIN 32.1 pg (27.0-33.0); MEAN CORPUSCULAR HGB CONC 31.9 g/dl (32.0-36.5); MEAN CORPUSCULAR VOLUME 100.6 fl (80.0-96.0); MONO # 1.4 10^3/uL (0.0-0.8); MONO % 14.9 % (0.0-5.0); NEUTROPHILS # 6.4 10^3/uL (1.8-7.7); NEUTROPHILS % 68.5 % (36.0-66.0); PLATELET COUNT, AUTOMATED 124 10^3/uL (150-450); RED BLOOD COUNT 3.08 10^6/uL (4.30-6.10); WHITE BLOOD COUNT 9.4 10^3/uL (4.0-10.0)
[2018-12-20 06:00] VITALS: BP 123/81
[2018-12-20 06:03] LABS: ALBUMIN 2.9 GM/DL (3.2-5.2); CALCIUM LEVEL 8.5 MG/DL (8.8-10.2); CREATININE FOR GFR 9.21 MG/DL (0.70-1.30); GLOMERULAR FILTRATION RATE 7.3 (>42); PHOSPHORUS LEVEL 7.4 MG/DL (2.5-4.9); POTASSIUM SERUM 5.7 MEQ/L (3.5-5.1)
[2018-12-20] MEDS: OYSTER SHELL CALCIUM 500 MG TAB PO SCH (06:03)
[2018-12-20] MEDS: NEPHRO-VIT TAB (NEPHROCAPS) PO SCH (06:03)
[2018-12-20] MEDS: METOPROLOL TART 25 MG TABLET PO SCH ×2 (06:04→21:14)
--- NOTE | 2018-12-20 06:28 | IPN ---
DATE OF VISIT: 12/19/2018 SUBJECTIVE: The patient was seen and examined the bedside. He was afebrile, hemodynamically stable. He was complaining of some cough. He continues to have right forearm previous arteriovenous (AV) fistula site infection wound vacuum assisted closure (VAC). OBJECTIVE: Vital signs: Temperature is 96.5 degrees Fahrenheit , blood pressure 144/90, pulse is 86, respiratory of 18, saturating 98% on room air. Intake and output: There is no urine output recorded, weight in the bed scale is not available. PHYSICAL EXAMINATION: General: The patient is awake, alert, oriented times three, sitting up in the bed in no apparent distress. Head and neck exam: Extraocular muscles intact. He has right eye blindness. Mucous membranes are moist. Neck: Supple. He has a right internal jugular (IJ) tunneled hemodialysis catheter. Cardiovascular: S1, S2, regular rate, 1+ edema of the lower extremities. Respiratory: Mild expiratory wheezing bilaterally at the bases. Bilateral equal air entry. Abdomen: Soft. Positive bowel sounds. Nontender. No organomegaly. Musculoskeletal: No clubbing or cyanosis. He has a left metatarsal amputation, right forearm wound and had a wound VAC. 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 LABORATORY REVIEW: CBC and basic metabolic profile (BMP) is from August 17. Next lab will be done tomorrow. showed WBC 30 . CBC and BMP is from December 17 CURRENT INPATIENT MEDICATIONS: The patient's medications were all reviewed by me. He continues to be on intravenous (IV) cefepime every 48 hours, no other change in the medications today. ASSESSMENT/PLAN: 1. End-stage renal disease on hemodialysis. The patient's regular dialysis days are Thursday, Thursday, Thursday. He will be dialyzed tomorrow morning, about 4.5 liters of fluid will be removed as tolerated by his blood pressure. 2. Diastolic congestive heart failure. The patient will be dialyzed tomorrow at least for 4-1/2 to 5 liters of fluid will be removed. The patient does not make much urine. 3. Anemia and end-stage renal disease. Next CBC will be checked tomorrow morning. The patient is also getting Aranesp with hemodialysis. 4. Right forearm arteriovenous (AV) fistula site wound infection. The patient had Klebsiella in the wound cultures and Klebsiella in the blood. He continues to be on IV cefepime and he has a wound vacuum assisted closure (vac).
[2018-12-20] MEDS: HumaLOG INSULIN (NovoLOG) PER UNIT SC SCH ×4 (07:30→20:44)
[2018-12-20] MEDS: IPRATROPIUM 0.5MG/ALBUTEROL 2.5MG INH SOL UD 3ML (DUONEB)(J7620) NEB SCH ×4 (08:00→20:04)
[2018-12-20] MEDS ORDERED: HEPARIN 1,000 UNITS/ML 10ML VIAL (FOR RADIOLOGY& DIALYSIS ONLY) XX ONE (11:15)
[2018-12-20] MEDS ORDERED: HEPARIN 1,000 UNITS/ML 10ML VIAL (FOR RADIOLOGY& DIALYSIS ONLY) IV ONE (11:15)
--- NOTE | 2018-12-20 13:22 | IPNPDOC ---
Text Note Date of Service The patient was seen on 12/20/18. NOTE UBJECTIVE: S/P patient seen and examined at bedside. Has no complaints. OBJECTIVE: Physical Examination VITALS: PLS SEE BELOW General Appearance: Morbidly obese, lying in bed, fluent speech, face is symmetric, no respiratory distress or conversational dyspnea HEENT: He has clouding of the right cornea, left pupil is reactive. No jugular venous distention (JVD). moist mucus membranes poor dentition permcath. Lungs with decreased breath sounds, clear. no wheezing rales or rhonchi Heart: Regular rhythm. No murmur. Abdomen: Obese. Nontender. No masses. soft (+) bs x 4 quadrants. no rebound, guarding EXT: Trace peripheral edema. His right forearm is dressed. LABORATORY DATA, IMAGING STUDIES, MICROBIOLOGY: PLS SEE BELOW Date of procedure: 12/17/18 debridement of infected graft-dr benjamin Date of Procedure: 12/16/18 s/p Right brachiocephalic arteriovenous fistulogram. Retrograde right brachial artery angiogram.Left cephalic vein angioplasty with 8 mm x [address] Benjamin DATE OF PROCEDURE: 12/06/18 PREPROCEDURE DIAGNOSES: 1. Right upper extremity chronic ulcer 2. Right upper extremity abscess POSTPROCEDURE DIAGNOSES: Same. PROCEDURE: 1. Excisional debridement right upper extremity chronic ulcer, 10 cm debrided of skin, subcutaneous tissue. 2. Excisional debridement right upper extremity abscess cavity, 14 cm debrided of skin, subcutaneous tissue. 3. Ligation of proximal superficial veins 2 SURGEON: Kath Mattson MD ASSESSMENT AND PLAN 73-year-old gentleman with end-stage renal disease,on hemodialysis on Thursday, Thursday, Thursday, hyperlipidemia, neuropathy,diabetes mellitus type 2, morbid obesity, and history of ligation radiocephalic AV fistula due to chronic ulceration and bleeds with Coumadin therapy, now with superficial skin bleeding around this chronic ulcer as well as an abscess near the surgical incision from ligation of his AV fistula. RUE forearm abscess, hematoma, chronic ulcer. He is 1 month s/p ligation of RUE forearm radial cephalic AVF due to bleeding from chronic ulcer and creation of new RUE brachial cephalic AVF. 12/06/18 vascular surgery s/p Excisional debridement right upper extremity chronic ulcer, 10 cm debrided of skin, subcutaneous tissue. s/p Excisional debridement right upper extremity abscess cavity, 14 cm debrided of skin, subcutaneous tissue. s/p Ligation of proximal superficial veins 2 -blood cx: klebsiella on iv cefepime. -temporary perm cath for dialysis needs -s/p Right brachiocephalic arteriovenous fistulogram. Retrograde right brachial artery angiogram.Left cephalic vein angioplasty with 8 mm x [address] Benjamin 12/16/18 -debridement of infected graft 12/17/18 Klebsiella bacteremia due to infected dialysis graft -on IV cefepime needs to complete one more week -negative repeat blood cultures. End-stage renal disease, on hemodialysis Thursday, Thursday, Thursday. -managed by nephrology Hyperlipidemia. -on lipitor Neuropathy. -complicating care Diabetes mellitus, type 2. -consistent carbs renal diet -sliding scale Morbid obesity.BMI 43 -complicating care -h/o elisha Metabolic Syndrome -morbid obesity -hyperlipidemia -complicating care Hypertension. -on metoprolol Coronary artery disease. -on lipitor and metoprolol Gastroesophageal reflux disease. Atrial fibrillation. -on metoprolol for rate control -on coumadin for anticoagulation Obstructive sleep apnea. -cpap qhs VS,Fishbone, I+O VS, Fishbone, I+O Laboratory Tests 12/20/18 05:19 Red Blood Count 3.08 L, Mean Corpuscular Volume 100.6 H, Mean Corpuscular Hemoglobin 32.1, Mean Corpuscular Hemoglobin Concent 31.9 L, Red Cell Distribu tion Width 19.0 H, Neutrophils (%) (Auto) 68.5 H, Lymphocytes (%) (Auto) 13.6 L, Monocytes (%) (Auto) 14.9 H, Eosinophils (%) (Auto) 1.9, Basophils (%) (Auto) 0.7, Neutrophils # (Auto) 6.4, Lymphocytes # (Auto) 1.3 L, Monocytes # (Auto) 1.4 H, Eosinophils # (Auto) 0.2, Basophils # (Auto) 0.1, Anion Gap 11 Vital Signs Date Time Temp Pulse Resp B/P (MAP) Pulse Ox O2 Delivery O2 Flow Rate FiO2 12/20/18 06:04 91 123/81 12/20/18 06:00 97.5 18 100 12/17/18 17:50 15 I&O- Last 24 Hours up to 6 AM 12/20/18 05:59 Intake Total 905 ml Output Total 0 ml Balance 905 ml PELON METCALF MD Dec 20, 2018 13:22
[2018-12-20] MEDS: GABAPENTIN 100 MG CAP PO SCH (13:37)
[2018-12-20] MEDS: ATORVASTATIN 20 MG TAB PO SCH (13:37)
--- NOTE | 2018-12-20 13:57 | IPNPDOC ---
Date Seen The patient was seen on 12/20/18. Progress Note Vascular Surgery Dr Benjamin. HPI: Mr Yamil is a 73yoM s/p excisional debridement RUE forearm abscess, hematoma, chronic ulcer. He is 1 month s/p ligation of RUE forearm radial cephalic AVF due to bleeding from chronic ulcer and creation of new RUE brachial cephalic AVF. No drainage reported from Permcath. S/P Fistulogram as per Dr Benjamin 12/16/18. PE: GEN: 73yoM, appears stated age. No acute distress. HEENT: Normocephalic, atraumatic. Moist mucous membranes. CHEST: Regular rate and rhythm, +S1, +S2 LUNGS: Clear to auscultation bilaterally. No wheezes, rales, or rhonchi. ABD: Round, soft, non-tender, non-distended. EXT: No lower extremity edema appreciated. vac dressing intact RUE forearm. Currently receiving HD. SKIN: [place], dry, warm. No rashes. NEURO: Alert and oriented x 3. No focal deficits appreciated. A&P: S/P excisional debridement RUE forearm abscess, hematoma, chronic ulcer. S/P debridement of Rt forearm wound 12/17/[address] Benjamin. Vac dressing intact. Plan is for follow up at the wound care center, Dr Weinberg, for RUE wound at discharge. IV cefepime as per primary team. ESRD. plan to continue dialysis with permcath for now. S/P creation of new RUE brachial cephalic AVF 11/03/18. Fistulogram 12/16/[address] Benjamin fistula is not yet functional, plan for fistulogram 1-2 weeks. Would like to try to get the AVF functioning for HD access so that the Permcath can be removed. Klebsiella bacteremia. Patient is afebrile, WBC 8.6. IV cefepime as per primary team. DVT prophylaxis. Pt is on Coumadin. VS, I&O, 24H, Fishbone Vital Signs/I&O Vital Signs Date Time Temp Pulse Resp B/P (MAP) Pulse Ox O2 Delivery O2 Flow Rate FiO2 12/20/18 06:04 91 123/81 12/20/18 06:00 97.5 18 100 12/17/18 17:50 15 I&O- Last 24 Hours up to 6 AM 12/20/18 05:59 Intake Total 905 ml Output Total 0 ml Balance 905 ml Laboratory Data 24H LABS Laboratory Tests 2 12/19/18 17:36: Bedside Glucose (Misc Panel) 132H 12/19/18 20:09: Prothrombin Time 26.4H, Prothromb Time International Ratio 2.45 12/19/18 20:32: Bedside Glucose (Misc Panel) 174H 12/20/18 05:19: Immature Granulocyte % (Auto) 0.4, White Blood Count 9.4, Red Blood Count 3.08L, Hemoglobin 9.9L, Hematocrit 31.0L, Mean Corpuscular Volume 100.6H, Mean Corpuscular Hemoglobin 32.1, Mean Corpuscular Hemoglobin Concent 31.9L, Red Cell Distribution Width 19.0H, Platelet Count 124L, Neutrophils (%) (Auto) 68.5H, Lymphocytes (%) (Auto) 13.6L, Monocytes (%) (Auto) 14.9H, Eosinophils (%) (Auto) 1.9, Basophils (%) (Auto) 0.7, Neutrophils # (Auto) 6.4, Lymphocytes # (Auto) 1.3L, Monocytes # (Auto) 1.4H, Eosinophils # (Auto) 0.2, Basophils # (Auto) 0.1, Nucleated Red Blood Cells % (auto) 0.7H, Blood Urea Nitrogen 79H, Creatinine 9.21*H, Sodium Level 135L, Potassium Level 5.7H, Chloride Level 102, Carbon Dioxide Level 22, Anion Gap 11, Glomerular Filtration Rate 7.3L, Calcium Level 8.5L, Phosphorus Level 7.4H, Albumin 2.9L CBC/BMP Laboratory Tests 12/20/18 05:19 Red Blood Count 3.08 L, Mean Corpuscular Volume 100.6 H, Mean Corpuscular Hemo globin 32.1, Mean Corpuscular Hemoglobin Concent 31.9 L, Red Cell Distribution Width 19.0 H, Neutrophils (%) (Auto) 68.5 H, Lymphocytes (%) (Auto) 13.6 L, Monocytes (%) (Auto) 14.9 H, Eosinophils (%) (Auto) 1.9, Basophils (%) (Auto) 0.7, Neutrophils # (Auto) 6.4, Lymphocytes # (Auto) 1.3 L, Monocytes # (Auto) 1.4 H, Eosinophils # (Auto) 0.2, Basophils # (Auto) 0.1, Anion Gap 11 Microbiology Microbiology 12/17/18 Blood Culture - Preliminary, Resulted No Growth after 72 hours. All specime... 12/17/18 Blood Culture - Preliminary, Resulted No Growth after 72 hours. All specime... 12/10/18 Blood Culture - Final, Complete NO GROWTH AFTER 5 DAYS 12/10/18 Blood Culture - Final, Complete NO GROWTH AFTER 5 DAYS Betty Hernandez Dec 20, 2018 13:57
[2018-12-20 14:00] VITALS: BP 119/69
[2018-12-20] MEDS: CEFEPIME HCL 2 GM in D5W MINI-BAG PLUS 50 ML IV SCH (16:45)
--- NOTE | 2018-12-20 18:06 | IPN ---
DATE: 12/20/2018 SUBJECTIVE: Patient was seen and examined the at the bedside today morning during hemodialysis procedure. He is tolerating the hemodialysis procedure well. He denies any active complaints at this time. He continues to have wound VAC on the right forearm. OBJECTIVE: VITAL SIGNS: Temperature is 97.7 degrees Fahrenheit, blood pressure 119/69, pulse is 103, respiratory rate of 20, saturating 97% on room air. INTAKE AND OUTPUT. There is no urine output recorded. Weight in the bed scale is not available. PHYSICAL EXAMINATION: GENERAL: Patient is awake, alert, oriented times three, laying in bed getting hemodialysis done. HEAD AND NECK EXAM: Patient has right eye blindness. Mucous membranes are moist. Neck is supple. He has a right internal jugular (IJ) tunneled hemodialysis catheter. CARDIOVASCULAR: S1, S2. Regular rate. 1+ edema of the bilateral lower extremities. RESPIRATORY: Chest is clear to auscultation bilaterally. Bilateral equal air entry. No rales or rhonchi. ABDOMEN: Soft, obese, positive bowel sounds. Nontender. MUSCULOSKELETAL: Patient has a wound VAC in the right forearm and he has a left transmetatarsal amputation. 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 LABORATORY REVIEW: Complete blood count (CBC) showed a WBC 9.4, hemoglobin of 9.9, platelets of 124. Basic metabolic panel (BMP) showed sodium 135, potassium 5.7, chloride 102, bicarbonate 22, BUN 79, creatinine is 9.2. CURRENT INPATIENT MEDICATIONS: Patient's medications were all reviewed by me. There is no change in the medications today as compared with yesterday. ASSESSMENT AND PLAN: 1. End-stage renal disease on hemodialysis. Patient is being dialyzed today according to his regular Thursday, Thursday, Thursday schedule. Ultrafiltration goal is about 4-4.5 liters as tolerated by blood pressure. 2. Chronic diastolic congestive heart failure. Patient is noncompliant with fluid restriction. Continue aggressive fluid removal with dialysis. 3. Anemia in end-stage renal disease. Hemoglobin is 9.9 which is optimal. Continue current dose of Aranesp 200 mcg intravenous (IV) with dialysis. 4. Hyperkalemia. Potassium is 5.7. He is being dialyzed with a 2K bath. Potassium is expected to improve after that. 5. Right forearm infected wound. Patient is currently getting IV cefepime.
[2018-12-20] MEDS: BENZONATATE 100 MG CAP PO PRN (21:13)
[2018-12-20] MEDS: hydrOXYzine 25 MG TAB PO PRN (21:14)
[2018-12-20] MEDS: WARFARIN SOD 3 MG TAB PO SCH (21:14)
[2018-12-20 22:00] VITALS: BP 110/66
[2018-12-21 06:00] VITALS: BP 108/64
[2018-12-21] MEDS: NEPHRO-VIT TAB (NEPHROCAPS) PO SCH (07:46)
[2018-12-21] MEDS: METOPROLOL TART 25 MG TABLET PO SCH ×2 (07:46→21:49)
[2018-12-21] MEDS: OYSTER SHELL CALCIUM 500 MG TAB PO SCH (07:46)
[2018-12-21] MEDS: HumaLOG INSULIN (NovoLOG) PER UNIT SC SCH ×4 (07:47→20:59)
[2018-12-21] MEDS: IPRATROPIUM 0.5MG/ALBUTEROL 2.5MG INH SOL UD 3ML (DUONEB)(J7620) NEB SCH ×4 (07:48→20:34)
--- NOTE | 2018-12-21 10:59 | IPNPDOC ---
Date Seen The patient was seen on 12/21/18. Progress Note Vascular Surgery Dr Benjamin. HPI: Mr Yamil is a 73yoM s/p excisional debridement RUE forearm abscess, hematoma, chronic ulcer. He is 1 month s/p ligation of RUE forearm radial cephalic AVF due to bleeding from chronic ulcer and creation of new RUE brachial cephalic AVF. No drainage reported from Permcath. S/P Fistulogram as per Dr Benjamin 12/16/18. Pt with no complaints this AM. PE: GEN: 73yoM, appears stated age. No acute distress. HEENT: Normocephalic, atraumatic. Moist mucous membranes. CHEST: Regular rate and rhythm, +S1, +S2 LUNGS: Clear to auscultation bilaterally. No wheezes, rales, or rhonchi. ABD: Round, soft, non-tender, non-distended. EXT: No lower extremity edema appreciated. vac dressing intact RUE forearm. dressing intact over Permcath Rt chest with no drainage noted. SKIN: [place], dry, warm. No rashes. NEURO: Alert and oriented x 3. No focal deficits appreciated. A&P: S/P excisional debridement RUE forearm abscess, hematoma, chronic ulcer. S/P debridement of Rt forearm wound 12/17/[address] Benjamin. Vac dressing intact Rt forearm. Plan to continue with wound vac at d/c. Plan is for follow up at the wound care center, Dr Weinberg, for RUE wound at discharge. IV cefepime as per primary team. ESRD. plan to continue dialysis with permcath for now. S/P creation of new RUE brachial cephalic AVF 11/03/18. Fistulogram 12/16/[address] Benjamin fistula is not yet functional, plan for fistulogram possibly or Thursday if still inpt, otherwise will arrange as outpt. Would like to try to get the AVF functioning for HD access so that the Permcath can be removed. Klebsiella bacteremia. Patient is afebrile, WBC 8.6. IV cefepime as per primary team. DVT prophylaxis. Pt is on Coumadin. VS, I&O, 24H, Fishbone Vital Signs/I&O Vital Signs Date Time Temp Pulse Resp B/P (MAP) Pulse Ox O2 Delivery O2 Flow Rate FiO2 12/21/18 07:46 80 110/68 12/21/18 06:00 97.6 20 94 12/17/18 17:50 15 I&O- Last 24 Hours up to 6 AM 12/21/18 06:00 Intake Total 2030 ml Output Total 4500 ml Balance -2470 ml Laboratory Data 24H LABS Laboratory Tests 2 12/20/18 17:14: Bedside Glucose (Misc Panel) 219H 12/21/18 06:01: Bedside Glucose (Misc Panel) 161H Microbiology Microbiology 12/17/18 Blood Culture - Preliminary, Resulted No Growth after 72 hours. All specime... 12/17/18 Blood Culture - Preliminary, Resulted No Growth after 72 hours. All specime... Betty Hernandez Dec 21, 2018 10:59
[2018-12-21] MEDS: GABAPENTIN 100 MG CAP PO SCH (12:04)
[2018-12-21] MEDS: ATORVASTATIN 20 MG TAB PO SCH (12:04)
[2018-12-21 14:00] VITALS: BP 121/78
--- NOTE | 2018-12-21 16:02 | IPNPDOC ---
Text Note Date of Service The patient was seen on 12/21/18. NOTE The patient is seen and examined. He is arousable to alertness. He does not have any distinct complaints. He is off of his CPAP at this time. Vital signs: Please see below. Physical exam HEENT exam: Right cornea is clouded, neck is supple otherwise supple with no bon nopathy or thyromegaly, oral mucosa is moist. Cardiovascular: Regular rate and rhythm with no appreciable murmur or bruit. Respiratory: Patient has intermittent coarse breath sounds. He is also observed to have short episodes of apnea with snoring. Abdominal: Morbid central obesity, nontender, nondistended. Extremities: Right upper extremity is dressed with wound VAC device in place. Left lower extremity has had transtarsal amputation and chronic wound site that is dressed, also new AV fistula site 1. Right upper extremity ulcer with abscess status post incision and drainage and debridement. Requires wound VAC for healing while not disrupting new AV fistula site. 2. End-stage renal disease. Patient continues with hemodialysis schedule Thursday, Thursday and Thursday. 3. NIDDM. Continues with current glucose management inclusive of sliding scale insulin. 4. Obstructive sleep apnea. Continues to sleep with BiPAP mask where possible. Home needs again include the wound VAC device for healing to his right upper extremity wound site. Additionally, the patient will need a hospital bed as he will require the head of the bed to be elevated more than 30 due to underlying chronic pulmonary disease from his obstructive sleep apnea. Also, with his wound management and amputations he will require frequent changes in body position. VS,Fishbone, I+O VS, Fishbone, I+O Vital Signs Date Time Temp Pulse Resp B/P (MAP) Pulse Ox O2 Delivery O2 Flow Rate FiO2 12/21/18 14:00 97.2 91 18 121/78 (92) 93 12/17/18 17:50 15 I&O- Last 24 Hours up to 6 AM 12/21/18 05:59 Intake Total 2030 ml Output Total 4500 ml Balance -2470 ml AMI RODNEY MD Dec 21, 2018 16:02
[2018-12-21 21:39] LABS: INR 2.51; PROTHROMBIN TIME 26.9 SECONDS (11.8-14.0)
[2018-12-21] MEDS: WARFARIN SOD 3 MG TAB PO SCH (21:48)
[2018-12-21] MEDS: BENZONATATE 100 MG CAP PO PRN (21:49)
[2018-12-21] MEDS: hydrOXYzine 25 MG TAB PO PRN (21:49)
[2018-12-21 22:00] VITALS: BP 128/76
[2018-12-22] MEDS: OYSTER SHELL CALCIUM 500 MG TAB PO SCH (05:56)
[2018-12-22] MEDS: NEPHRO-VIT TAB (NEPHROCAPS) PO SCH (05:56)
[2018-12-22] MEDS: METOPROLOL TART 25 MG TABLET PO SCH ×2 (05:56→21:49)
[2018-12-22 06:00] VITALS: BP 115/61
[2018-12-22] MEDS: IPRATROPIUM 0.5MG/ALBUTEROL 2.5MG INH SOL UD 3ML (DUONEB)(J7620) NEB SCH ×4 (07:52→19:33)
--- NOTE | 2018-12-22 07:54 | IPN ---
DATE OF SERVICE: 12/21/2018 Mr. Lobo is seen this morning on his bedside. He is sitting at the edge of bed eating his breakfast. He was dialyzed yesterday and feels well. He has a wound vac dressing on his right forearm wound. The patient has no fever or chills. He denies any dyspnea or chest pain. PHYSICAL EXAMINATION: Temperature 97.6 degrees Fahrenheit, heart rate 95 per minute and respiratory rate 20 per minute. Blood pressure 108/64 mmHg and oxygen saturation 94%. Head is atraumatic. His right eye is blind. Neck veins are difficult to be assessed. Heart sounds are irregular in rhythm and lungs sound clear to auscultation with slightly diminished breath sounds. Abdomen obese, soft and nontender. Bowel sounds are normal. Extremities have no cyanosis or clubbing. His right forearm wound is covered with wound vac dressing. Right upper arm AV fistula is patent. PROBLEMS: 1. End-stage renal disease. The patient was dialyzed yesterday and next dialysis will be scheduled for December 22. 2. Hyperkalemia. His potassium level was 5.7 yesterday and he was dialyzed with low potassium bath. His electrolytes should be checked again tomorrow morning. He should continue with 2 grams potassium diet. 3. Anemia. Anemia has been stable and gradually improving. He remains on Aranesp once a week which will be continued. 4. Klebsiella sepsis with infected AV fistula. The patient had his AV fistula excised and his right forearm wound is now healing with wound vac dressing. Repeat blood cultures have been negative so far. He remains on cefepime 2 grams after every dialysis.
[2018-12-22] MEDS: HumaLOG INSULIN (NovoLOG) PER UNIT SC SCH ×4 (07:57→21:00)
[2018-12-22] MEDS ORDERED: HEPARIN 1,000 UNITS/ML 10ML VIAL (FOR RADIOLOGY& DIALYSIS ONLY) IV ONE (11:30)
[2018-12-22] MEDS ORDERED: HEPARIN 1,000 UNITS/ML 10ML VIAL (FOR RADIOLOGY& DIALYSIS ONLY) XX ONE (11:30)
--- NOTE | 2018-12-22 13:15 | IPNPDOC ---
Text Note Date of Service The patient was seen on 12/22/18. NOTE Mr. Lobo is seen after hemodialysis. He is complaining of pain to the foreskin of his penis, stating that he cannot retract it. He states he's had this difficulty for about 2 months. PHYSICAL EXAM: HENT exam: Right cornea is clouded, neck is supple otherwise supple with no adenopathy or thyromegaly, oral mucosa is moist. Cardiovascular: Regular rate and rhythm with no appreciable murmur or bruit. Respiratory: Patient has intermittent coarse breath sounds. Abdominal: Morbid central obesity, nontender, nondistended. Genitourinary: There is very mild swelling to the distal end of the foreskin of the penis. There is no erythema or induration or drainage. 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 There are no abnormalities to the head of the penis. Extremities: Right upper extremity is dressed with wound VAC device in place. Left lower extremity has had transmetatarsal amputation and chronic wound site that is dressed, also has new AV fistula site ASSESSMENT/PLAN: 1. Right upper extremity ulcer with abscess status post incision/drainage and debridement. Requires wound VAC for healing while not disrupting new AV fistula site. Patient will be expectant of outpatient fistulogram. 2. End-stage renal disease. Patient's usual hemodialysis schedule is Thursday, Thursday, Thursday. Patient has undergone hemodialysis yesterday and today, however. 3. Ebm-udzceea-peifbfutn diabetes mellitus. Patient continues with glucose management schedule inclusive of sliding scale insulin. 4. Obstructive sleep apnea. Patient continues to sleep with BiPAP mask. 5. Chronic atrial fibrillation. The patient has been maintained on his chronic anticoagulation with Coumadin and his INR has remained therapeutic and stable. 6. Foreskin pain. 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 Very mild swelling to the distal foreskin is noted with some tenderness. Again, there is no sign of infection. If patient continues with significant discomfort that is not relieved by Tylenol he may need outpatient urology eval. Anticipate discharge to home tomorrow. Equipment needs will include hospital bed and wound VAC. VS,Fishbone, I+O VS, Fishbone, I+O Vital Signs Date Time Temp Pulse Resp B/P (MAP) Pulse Ox O2 Delivery O2 Flow Rate FiO2 8/7/19 06:00 96.5 96 20 115/61 (79) 96 12/17/18 17:50 15 I&O- Last 24 Hours up to 6 AM 12/22/18 06:00 Intake Total 1840 ml Output Total 0 ml Balance 1840 ml AMI RODNEY MD Dec 22, 2018 13:15
[2018-12-22] MEDS: GABAPENTIN 100 MG CAP PO SCH (13:46)
[2018-12-22] MEDS: ATORVASTATIN 20 MG TAB PO SCH (13:46)
[2018-12-22 14:00] VITALS: BP 106/76
[2018-12-22] MEDS: CEFEPIME HCL 2 GM in D5W MINI-BAG PLUS 50 ML IV SCH (16:44)
[2018-12-22] MEDS: WARFARIN SOD 3 MG TAB PO SCH (21:48)
[2018-12-22 22:00] VITALS: BP 140/76
[2018-12-23 06:00] VITALS: BP 116/71
[2018-12-23 06:46] LABS: INR 2.67; PROTHROMBIN TIME 28.3 SECONDS (11.8-14.0)
[2018-12-23 06:51] LABS: CALCIUM LEVEL 8.7 MG/DL (8.8-10.2); CREATININE FOR GFR 7.64 MG/DL (0.70-1.30); GLOMERULAR FILTRATION RATE 9.1 (>42); POTASSIUM SERUM 4.6 MEQ/L (3.5-5.1)
[2018-12-23] MEDS ORDERED: BUPIVACAINE HCL 0.5% 10 ML VIAL As Ordered ONE (06:56)
[2018-12-23] MEDS ORDERED: LIDOCAINE 2% MDV 20 ML VIAL As Ordered ONE (06:56)
[2018-12-23] MEDS ORDERED: ISOVUE-300 61% 50ML VIAL (Q9967) As Ordered ONE (06:56)
[2018-12-23] MEDS: IPRATROPIUM 0.5MG/ALBUTEROL 2.5MG INH SOL UD 3ML (DUONEB)(J7620) NEB SCH ×2 (07:49→12:09)
[2018-12-23] MEDS: NEPHRO-VIT TAB (NEPHROCAPS) PO SCH (08:21)
[2018-12-23] MEDS: OYSTER SHELL CALCIUM 500 MG TAB PO SCH (08:21)
[2018-12-23 08:22] VITALS: BP 146/106
[2018-12-23] MEDS: METOPROLOL TART 25 MG TABLET PO SCH (08:22)
[2018-12-23] MEDS: HumaLOG INSULIN (NovoLOG) PER UNIT SC SCH ×2 (08:23→12:48)
--- NOTE | 2018-12-23 11:01 | IPNPDOC ---
Date Seen The patient was seen on 12/23/18. Progress Note Vascular Surgery Dr Benjamin. HPI: Mr Yamil is a 73yoM s/p excisional debridement RUE forearm abscess, hematoma, chronic ulcer. He is 1 month s/p ligation of RUE forearm radial cephalic AVF due to bleeding from chronic ulcer and creation of new RUE brachial cephalic AVF. No drainage reported from Permcath. S/P Fistulogram as per Dr Benjamin 12/16/18. Plan for fistulogram this AM. Pt with no complaints this AM. PE: GEN: 73yoM, appears stated age. No acute distress. HEENT: Normocephalic, atraumatic. Moist mucous membranes. CHEST: Regular rate and rhythm, +S1, +S2 LUNGS: Clear to auscultation bilaterally. No wheezes, rales, or rhonchi. ABD: Round, soft, non-tender, non-distended. EXT: No lower extremity edema appreciated. vac dressing intact RUE forearm. dressing intact over Permcath Rt chest with no drainage noted. SKIN: [place], dry, warm. No rashes. NEURO: Alert and oriented x 3. No focal deficits appreciated. A&P: S/P excisional debridement RUE forearm abscess, hematoma, chronic ulcer. S/P debridement of Rt forearm wound 12/17/[address] Benjamin. Vac dressing intact Rt forearm. Plan to continue with wound vac at d/c. Plan is for follow up at the wound care center, Dr Weinberg, for RUE wound at discharge. Abx as per primary team. ESRD. plan to continue dialysis with permcath for now. S/P creation of new RUE brachial cephalic AVF 11/03/18. Fistulogram 12/16/[address] Benjamin fistula is not yet functional, Plan for fistulogram today prior to Pt d/c. Would like to try to get the AVF functioning for HD access so that the Permcath can be removed. Klebsiella bacteremia. Patient is afebrile, WBC 8.6. Abx as per primary team. DVT prophylaxis. Pt is on Coumadin. VS, I&O, 24H, Fishbone Vital Signs/I&O Vital Signs Date Time Temp Pulse Resp B/P (MAP) Pulse Ox O2 Delivery O2 Flow Rate FiO2 12/23/18 10:56 78 18 100 8/8/19 10:29 98.5 12/23/18 08:22 146/106 12/17/18 17:50 15 I&O- Last 24 Hours up to 6 AM 12/23/18 06:00 Intake Total 1380 ml Output Total 4500 ml Balance -3120 ml Laboratory Data 24H LABS Laboratory Tests 2 12/22/18 13:06: Bedside Glucose (Misc Panel) 98 12/22/18 16:28: Bedside Glucose (Misc Panel) 159H 12/22/18 20:43: Bedside Glucose (Misc Panel) 170H 12/23/18 05:26: Prothrombin Time 28.3H, Prothromb Time International Ratio 2.67, Anion Gap 10, Glomerular Filtration Rate 9.1L, Blood Urea Nitrogen 60H, Creatinine 7.64H, Sodium Level 139, Potassium Level 4.6, Chloride Level 104, Carbon Dioxide Level 25, Calcium Level 8.7L CBC/BMP Laboratory Tests 12/23/18 05:26 Calcium Level 8.7 L Microbiology Microbiology 12/17/18 Blood Culture - Final, Complete NO GROWTH AFTER 5 DAYS 12/17/18 Blood Culture - Final, Complete NO GROWTH AFTER 5 DAYS Betty Hernandez Dec 23, 2018 11:01
[2018-12-23 11:17] VITALS: BP 120/60
--- NOTE | 2018-12-23 11:25 | IPN ---
DATE OF SERVICE: 12/22/2018 SUBJECTIVE: The patient was seen and examined at the bedside today morning during hemodialysis procedure. He is tolerating hemodialysis procedure well. He denies any active complaints. OBJECTIVE: Vital Signs: Temperature is 97 degrees Fahrenheit, blood pressure 106/76, pulse 84, respiratory rate 19, respiratory rate 20, saturating 98% on room air. Intake and Output: There is no urine output recorded. Weight in the bed scale is not available. PHYSICAL EXAMINATION: General: The patient is awake, alert, oriented times three, laying in bed getting hemodialysis done, in no apparent distress. Head and Neck Exam: Extraocular muscles intact. Right eye is blind. Mucous membranes are moist. Neck is supple. There is no jugular venous distention (JVD). Cardiovascular: S1 and S2, regular rate. 1+ edema of the lower extremities. Respiratory: Chest is clear to auscultation bilaterally. Bilateral equal air entry. No rales or rhonchi. Abdomen: Soft. Positive bowel sounds. Nontender. No organomegaly. Musculoskeletal: The patient has left transmetatarsal amputation. He has a right forearm wound site wound Vac. CORRECTIONAL CAPTAIN: No focal deficit apart from the right eye blindness. LAB REVIEW: CBC showed a WBC of 9.4, hemoglobin 9.9, platelets are 124. BMP showed sodium 135, potassium 5.7, chloride 102, bicarb 22, BUN 79, creatinine 9.2, phosphorus 7.4, and albumin 2.9. CURRENT INPATIENT MEDICATIONS: The patient's medications were all reviewed by me. There is no change in the medications today as compared with yesterday. ASSESSMENT/PLAN: 1. End-stage renal disease on hemodialysis. The patient is being dialyzed according to his regular schedule. Ultrafiltration goal is 4.5 liters. 2. Chronic diastolic congestive heart failure. Continue aggressive fluid removal. Ultrafiltration goal is 4.5 liters. 3. Anemia in end-stage renal disease. Continue current dose of Aranesp. 4. Right forearm infected wound. The patient currently has a wound Vac. Continue current dose of IV cefepime.
[2018-12-23] MEDS ORDERED: BENZ-18 PO (11:48)
[2018-12-23] MEDS: ATORVASTATIN 20 MG TAB PO SCH (12:47)
[2018-12-23] MEDS: GABAPENTIN 100 MG CAP PO SCH (12:47)
--- NOTE | 2018-12-24 19:07 | IPN ---
DATE: 12/23/2018 SUBJECTIVE: The patient was seen and examined at the bedside today morning. He is afebrile and hemodynamically stable. He was dialyzed yesterday. He tolerated the hemodialysis procedure well. The patient reports that he is getting ready to be discharged today. OBJECTIVE: VITAL SIGNS: Temperature is 98.5 degrees Fahrenheit, blood pressure 146/106, pulse is 99, respiratory of 20, saturating 96% on room air. INTAKE AND OUTPUT: Urine output is not recorded. Ultrafiltration with hemodialysis was 4.5 liters. Weight in the bed scale 128.8 kg. PHYSICAL EXAMINATION: GENERAL: The patient is awake, alert, oriented times three, sitting up in the bed, in no apparent distress. HEAD AND NECK: The patient has right eye blindness. Mucous membranes are moist. Neck is supple. He has a right internal jugular (IJ) tunneled hemodialysis catheter. CARDIOVASCULAR: S1, S2, regular rate, 1+ edema of the bilateral lower extremities. RESPIRATORY: Chest is clear to auscultation bilaterally. Bilateral equal air entry. No rales or rhonchi. ABDOMEN: Soft. Positive bowel sounds. Nontender. No organomegaly. MUSCULOSKELETAL: Left transmetatarsal amputation and right forearm has a wound vacuum-assisted closure (VAC). 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 He has right eye blindness. LABORATORY REVIEW: CBC from 12/20/2018 and BMP today morning showed sodium 139, potassium 4.6, chloride 104, bicarbonate 25, BUN 60, creatinine 7.6. IMAGING STUDIES: The patient got a right upper arm AV fistulogram done today morning. Official report is still pending. CURRENT INPATIENT MEDICATIONS: The patient's medications were all reviewed by me. There is no change in the medications today as compared with yesterday. ASSESSMENT AND PLAN: 1. End-stage renal disease, on hemodialysis. The patient's regular dialysis days are Thursday, Thursday, Thursday. He was dialyzed yesterday. Next hemodialysis will be tomorrow as outpatient. 2. Right forearm arteriovenous (AV) fistula site infected wound. The patient is currently on IV cefepime with dialysis. When he is discharged, he will get cefepime with each dialysis session. 3. Anemia and end-stage renal disease. Hemoglobin latest is 9.9. Rest of the anemia management will be done as outpatient. 4. Right upper arm AV fistula. The patient got the fistulogram done by vascular surgery today. The fistula is slowly maturing. DISPOSITION: It is okay to discharge the patient from nephrology standpoint today.
--- NOTE | 2018-12-26 17:00 | DS.PDOC ---
Discharge Summary General Date of Admission Dec 06, 2018 at 02:19 Date of Discharge December 23, 2018 Specialist/Consultants Involve: NOAH KAM MD Specialist/Consultants Involve Dr. Benjamin or vascular service, Dr. Rodriguez of nephrology service Discharge Summary PROCEDURES PERFORMED DURING STAY: Excisional debridement of right upper extremity ulcer and abscess, ligation of veins of right upper extremity fistula, left cephalic vein angioplasty, hemodialysis. ADMITTING DIAGNOSES: 1. Right upper extremity ulcer and abscess adjacent to right upper extremity fistula. DISCHARGE DIAGNOSES: 1. Right upper extremity ulcer and abscess status post debridement, closure of right upper extremity fistula with ligation, chronic kidney disease stage V. Sd t is hemodialysis requiring, [id number] diabetes mellitus, obstructive sleep apnea with BiPAP mask. Use, atrial fibrillation with chronic anticoagulation with Coumadin, essential hypertension, dyslipidemia, coronary artery disease, history of L. transmetatarsal amputation, morbid obesity. COMPLICATIONS/CHIEF COMPLAINT: Dialysis Av Fistula Infection; Ulcer. HISTORY OF PRESENT ILLNESS/HOSPITAL COURSE: This is a 73-year-old male with known history of dialysis requiring end-stage renal disease who presented to the emergency room with bleeding and purulent drainage from his right forearm fistula. He was found to have an ulcer with abscess. The patient underwent incision and drainage. Cultures are positive for Klebsiella oxytoca. Patient was maintained on IV antibiotic therapy. The fistula site underwent subsequent ligation. Patient was dialyzed through a catheter site and his left upper extremity site then underwent angioplasty in preparation for future use. In addition, the patient also had ongoing wound care needs for a recent trans- metatarsal amputation to the left lower extremity. Home equipment included wound VAC and wheelchair. The patient was otherwise doing well. Lastly, patient had a complaint of swelling to the foreskin tip of his penis. There is no sign of infection, drainage or induration. Plans were for patient to undergo outpatient follow-up with urology service as there is no interference with overall function.. DISCHARGE MEDICATIONS: Please see below. ALLERGIES: Please see below. PHYSICAL EXAMINATION ON DISCHARGE: VITAL SIGNS: Please see below. HENT exam: Right cornea is clouded, neck is supple otherwise supple with no adenopathy or thyromegaly, oral mucosa is moist. Cardiovascular: Regular rate and rhythm with no appreciable murmur or bruit. Respiratory: Patient has intermittent coarse breath sounds. Abdominal: Morbid central obesity, nontender, nondistended. Genitourinary: There is very mild swelling to the distal end of the foreskin of the penis. There is no erythema or induration or drainage. This public relations writer is able to retract the foreskin fully, although it is uncomfortable for the patient. There are no abnormalities to the head of the penis. Extremities: Right upper extremity is dressed with wound VAC device in place. Left lower extremity has had transmetatarsal amputation and chronic wound site that is dressed, also has new LUE AV fistula site LABORATORY DATA: Please see below. IMAGING: PROGNOSIS: ACTIVITY: As tolerated. DIET: Consistent carbohydrate DISCHARGE PLAN: The patient will be discharged to home. He'll ambulate with walker or by wheelchair. Wound VAC will be in place at home. He will follow-up with Dr. Rodriguez per his hemodialysis schedule. He will follow-up with the vascular surgery service as arranged. Lastly, he is being referred to Dr. Otto of the urology service regarding the distal foreskin swelling. DISPOSITION: 01 Home, Self-Care. DISCHARGE INSTRUCTIONS: 1. . ITEMS TO FOLLOWUP ON ON OUTPATIENT: 1. . DISCHARGE CONDITION: Stable. TIME SPENT ON DISCHARGE: Greater than 40 minutes. Vital Signs/I&Os Vital Signs Date Time Temp Pulse Resp B/P (MAP) Pulse Ox O2 Delivery O2 Flow Rate FiO2 12/23/18 11:17 81 18 100 12/23/18 10:29 98.5 12/23/18 08:22 146/106 Microbiology Microbiology 12/17/18 Blood Culture - Final, Complete NO GROWTH AFTER 5 DAYS 12/17/18 Blood Culture - Final, Complete NO GROWTH AFTER 5 DAYS Discharge Medications Scheduled Aspirin (Aspirin EC) 81 Mg Tab, 81 MG PO DAILY, (Reported) Atorvastatin Calcium (Atorvastatin Calcium) 20 Mg Tab, 20 MG PO DAILY, (Reported) AT NOON Bacillus Coagulans (Bacid with Lactospore) 1 Cap Cap, 1 CAP PO BID, (Reported) Calcium Carbonate (Calcium Carbonate) 500 Mg Tablet, 500 MG PO DAILY, (Reported) Cholecalciferol (Vitamin D3) (Vitamin D3) 1,000 Unit Tab, 1,000 UNITS PO DAILY, (Reported) Cyanocobalamin (Vitamin B-12) (Vitamin B-12) 500 Mcg Tab, 1,000 MCG PO DAILY, (Reported) Fluticasone Propionate (Flonase Allergy Relief) 9.9 Ml [place].susp, 2 SPRAY NA DAILY, (Reported) Gabapentin (Gabapentin) 100 Mg Cap, 100 MG PO DAILY, (Reported) AT NOON Insulin Aspart (Novolog Flexpen) 100 Unit/Ml Inj, 1 DOSE SC BID, (Reported) PER SLIDING SCALE WITH BREAKFAST AND DINNER Lidocaine/Prilocaine (Lidocaine-Prilocaine Cream) 2.5%/2.5% Cream..g., 1 APLCT TOP ASDIRECTED, (Reported) APPLY TO DIALYSIS ACCESS SITE ONE HOUR PRIOR TO DIALYSIS Metoprolol Tartrate (Metoprolol Tartrate) 25 Mg Tab, 25 MG PO BID, (Reported) Pantoprazole Sodium (Pantoprazole Sodium) 40 Mg Tablet.dr, 40 MG PO DAILY, (Reported) Sevelamer Carbonate (Sevelamer Carbonate) 800 Mg Tab, 800 MG PO BID, (Reported) WITH BREAKFAST AND DINNER Vit B Comp No.3/Folic/C/Biotin (Nephro-Martin Rx Tablet) 1 Tab Tab, 1 TAB PO DAILY, (Reported) Warfarin Sodium (Warfarin Sodium) 5 Mg Tablet, 5 MG PO 3XW, (Reported) THU/WED/FRI Warfarin Sodium (Warfarin Sodium) 4 Mg Tablet, 4 MG PO 4XWK, (Reported) SUN/TUES/THURS/SAT Scheduled PRN Albuterol Sulfate (Ventolin Hfa) 108 Mcg/Act Aer, 2 PUFFS INH QID PRN for SHORTNESS OF BREATH, (Reported) Benzonatate (Benzonatate) 100 Mg Capsule, 100 MG PO TIDP PRN for COUGH Hydroxyzine HCl (Hydroxyzine HCl) 25 Mg Tablet, 25 MG PO BID PRN for ITCHING, (Reported) Nitroglycerin (Nitrostat) 0.4 Mg Subl, 0.4 MG SL NITRO PRN for ANGINA, ( Reported) Miscellaneous Medications [Comment] , (Reported) PT HAS NOT HAD WARFARIN IN ABOUT A WEEK DUE TO BLEEDING Allergies Coded Allergies: No Known Allergies (Verified , 03/03/17) AMI RODNEY MD Dec 26, 2018 17:00
--- NOTE | 2018-12-30 21:23 | RO ---
DATE OF PROCEDURE: 12/17/2018 PREOPERATIVE DIAGNOSIS: Right forearm nonhealing wounds. POSTOPERATIVE DIAGNOSIS: Right forearm nonhealing wounds. PROCEDURE: Right forearm excisional debridement of nonhealing wounds with placement of a VAC dressing. SURGEON: Dr. Asif Benjamin DRUG ROOM OPERATOR: None. INDICATION: The patient is a 73-year-old male with an infected right forearm arteriovenous (AV) fistula that underwent removal and debridement, who now requires further debridement. ANESTHESIA: Monitored anesthesia care (MAC). ESTIMATED BLOOD LOSS: 15 mL IV FLUIDS: 30 mL HEPARIN: None. COMPLICATIONS: None. DRAINS: None. SPECIMENS: None. IMPLANTS: None. DESCRIPTION OF PROCEDURE: The patient was taken to the operating room, placed supine on the operating room table and the right upper extremity was prepped and draped in a standard surgical fashion. The wounds in the forearm were debrided sharply with removal of skin, subcutaneous tissue and muscle down to healthy bleeding tissue after which a VAC dressing was applied to the wounds. The patient tolerated the procedure well. All instrument, sponge and needle counts were correct at the end of the case. There were no complications. Dr. Benjamin was present for and directed the entire case. The patient was transferred to the holding area and subsequently to the floor in stable condition.
--- NOTE | 2018-12-31 08:22 | REPIR ---
DATE OF PROCEDURE: 12/23/2018 ATTENDING PHYSICIAN: Dr. Karime Benjamin ASSISTANTS: Basil Soria and Radha Mcpherson. PREOPERATIVE DIAGNOSIS: End-stage renal disease, dysfunctional right brachiocephalic arteriovenous fistula. POSTOPERATIVE DIAGNOSIS: End-stage renal disease, dysfunctional right brachiocephalic arteriovenous fistula. PROCEDURE: Right brachiocephalic arteriovenous fistulogram, retrograde right brachial artery angiogram, right cephalic vein angioplasty with 8 x 200 balloon. INDICATION: The patient is a 73-year-old male with a creation of a right brachiocephalic arteriovenous fistula who currently dialyzes through a right internal jugular vein tunneled central venous catheter. The patient will undergo a cystogram with possible angioplasty stent and/or atherectomy. ANESTHESIA: Local with 1 mL of 2% lidocaine mixed with 0.5% Marcaine. COMPLICATIONS: None. DRAINS: None. SPECIMENS: None. IMPLANTS: None. PROCEDURE: The patient was taken to the angiography suite, placed supine on the angiography room table, and then prepped and draped in a standard surgical fashion. The right brachiocephalic arteriovenous fistula was cannulated with a micropuncture needle after anesthetizing the overlying skin and subcutaneous tissue. A fistulogram was performed showing the cephalic vein to be patent, tortuous, but small. The cephalic vein was angioplastied from the puncture site to the cephalic arch using an 8 x 200 balloon. A retrograde brachial angiogram was performed showing remainder of the fistula be widely patent to the brachial artery with good flow in the brachial artery proximal distal to the arteriovenous anastomosis. A completion fistulogram showed improved size and flow through the fistula after angioplasty with the 8 x 200 mm balloon. The catheters and wires were removed. The sheath was removed and a #2-0 Prolene suture placed at the puncture site for hemostasis. Dressings were then applied. The patient tolerated procedure well. All instrument, sponge, and needle counts were correct at the end of the case. There were no complications. Dr. Benjamin was present for and directed the entire case. The patient was transferred to the holding area and subsequently to the floor in stable condition.
== END 2018-12-23 13:24 | disposition home health service (06) | DRG 252 ==
LOC: M ED 21:50 → M ED INP 12-06 02:19 → M MSPAV 12-06 16:33
PROVIDERS: ADMIT Internal Medicine; ATTEND Internal Medicine
PROC: 0JBG0ZZ Excision of Right Lower Arm Subcutaneous Tissue and Fascia, Open Approach (ICD-10-PCS; 2018-12-06)
PROC: 05LY0ZZ Occlusion of Upper Vein, Open Approach (ICD-10-PCS; principal; 2018-12-06 16:30)
PROC: 057D3ZZ Dilation of Right Cephalic Vein, Percutaneous Approach (ICD-10-PCS; 2018-12-16)
PROC: B51W1ZZ Fluoroscopy of Dialysis Shunt/Fistula using Low Osmolar Contrast (ICD-10-PCS; 2018-12-16)
PROC: B31H1ZZ Fluoroscopy of Right Upper Extremity Arteries using Low Osmolar Contrast (ICD-10-PCS; 2018-12-16)
PROC: 0KB90ZZ Excision of Right Lower Arm and Wrist Muscle, Open Approach (ICD-10-PCS; 2018-12-17)
PROC: 5A1D70Z Performance of Urinary Filtration, Intermittent, Less than 6 Hours Per Day (ICD-10-PCS; 2018-12-22)
PROC: 057D3ZZ Dilation of Right Cephalic Vein, Percutaneous Approach (ICD-10-PCS; 2018-12-23)
PROC: B51W1ZZ Fluoroscopy of Dialysis Shunt/Fistula using Low Osmolar Contrast (ICD-10-PCS; 2018-12-23)
DX: T82.7XXA Infection and inflammatory reaction due to other cardiac and vascular devices, implants and grafts, initial encounter (principal); N18.6 End stage renal disease; I13.2 Hypertensive heart and chronic kidney disease with heart failure and with stage 5 chronic kidney disease, or end stage renal disease; I50.32 Chronic diastolic (congestive) heart failure; L98.498 Non-pressure chronic ulcer of skin of other sites with other specified severity; L02.413 Cutaneous abscess of right upper limb; T82.838A Hemorrhage due to vascular prosthetic devices, implants and grafts, initial encounter; E78.2 Mixed hyperlipidemia; E11.40 Type 2 diabetes mellitus with diabetic neuropathy, unspecified; N48.89 Other specified disorders of penis; D63.1 Anemia in chronic kidney disease; G47.33 Obstructive sleep apnea (adult) (pediatric); I48.91 Unspecified atrial fibrillation; I48.2 Chronic atrial fibrillation; E87.5 Hyperkalemia; E11.22 Type 2 diabetes mellitus with diabetic chronic kidney disease; E66.01 Morbid (severe) obesity due to excess calories; Z95.0 Presence of cardiac pacemaker; Z99.2 Dependence on renal dialysis; Z89.432 Acquired absence of left foot; Z79.01 Long term (current) use of anticoagulants; Z79.899 Other long term (current) drug therapy; Z79.82 Long term (current) use of aspirin; Z68.36 Body mass index [BMI] 36.0-36.9, adult

== ENCOUNTER → 2019-01-06 | Outpatient (REF) | payer MEDICARE, MEDICAID ==
[~2019-01-06] MED LIST changes: +CALC500T61 PO; +COMMENT
[2019-01-06 18:53] LABS: INR 2.36; PROTHROMBIN TIME 25.6 SECONDS (11.8-14.0)
[2019-01-06 19:02] LABS: CHOLESTEROL RISK RATIO 1.725 (<5)
[2019-01-06 22:05] LABS: HEMOGLOBIN A1c 6.2 %
== END ==
LOC: M SFHCPLAZ 14:58
DX: E11.622 Type 2 diabetes mellitus with other skin ulcer (principal); I48.91 Unspecified atrial fibrillation; Z79.01 Long term (current) use of anticoagulants; I25.10 Atherosclerotic heart disease of native coronary artery without angina pectoris
CPT/HCPCS: 15271; 36415; 80061; 83036; 85610; G0463; Q4110

== ENCOUNTER 2019-01-09 13:35 | Observation (INO) | payer MEDICARE, MEDICAID ==
[~2019-01-09] VITALS: Ht 188 cm; Wt 135.5 kg
[2019-01-09] MEDS ORDERED: NS 500 ML IV ONE (14:15)
[2019-01-09 14:46] LABS: BASO # 0.1 10^3/uL (0.0-0.2); BASO % 1.2 % (0.0-1.0); EOS # 0.2 10^3/uL (0.0-0.50); EOS % 3.6 % (0.0-3.0); HEMATOCRIT 35.9 % (42.0-52.0); HEMOGLOBIN 11.1 g/dl (13.5-17.5); LYMPH % 20.8 % (24.0-44.0); MEAN CORPUSCULAR HEMOGLOBIN 33.3 pg (27.0-33.0); MEAN CORPUSCULAR HGB CONC 30.9 g/dl (32.0-36.5); MEAN CORPUSCULAR VOLUME 107.8 fl (80.0-96.0); MONO # 0.8 10^3/uL (0.0-0.8); MONO % 15.3 % (0.0-5.0); NEUTROPHILS # 2.9 10^3/uL (1.8-7.7); NEUTROPHILS % 58.9 % (36.0-66.0); RED BLOOD COUNT 3.33 10^6/uL (4.30-6.10)
[2019-01-09 14:51] LABS: BLOOD UREA NITROGEN 42 MG/DL (7-18); CALCIUM LEVEL 7.4 MG/DL (8.8-10.2); CARBON DIOXIDE LEVEL 29 MEQ/L (21-32); CHLORIDE LEVEL 106 MEQ/L (98-107); CK-MB VALUE MASS 3.7 NG/ML (<3.6); CPK CREATINE PHOSPHOKINASE 97 U/L (39-308); CREATININE FOR GFR 7.62 MG/DL (0.70-1.30); GLOMERULAR FILTRATION RATE 9.1 (>42); GLUCOSE, FASTING 113 MG/DL (70-100); MAGNESIUM LEVEL 2.3 MG/DL (1.8-2.4); MB/CK RELATIVE INDEX 3.81 (< OR =4); POTASSIUM SERUM 4.7 MEQ/L (3.5-5.1); SODIUM LEVEL 140 MEQ/L (136-145); TROPONIN I 0.13 NG/ML (< 0.10)
[2019-01-09 14:52] LABS: ETHYL ALCOHOL (ETHANOL) < 0.003 % (0.000-0.010)
[2019-01-09 15:35] LABS: PLATELET COUNT, AUTOMATED 96 10^3/uL (150-450)
[2019-01-09] MEDS ORDERED: VANCOMYCIN HCL 1,000 MG, VIAL MATE ADAPTER 1 EACH in D5W 250 ML IV ONE (16:45)
[2019-01-09] MEDS ORDERED: CEFEPIME HCL 1 GM in D5W MINI-BAG PLUS 50 ML IV ONE (16:45)
[2019-01-09] MEDS ORDERED: GLUCAGON FOR INJ 1 MG VIAL (J1610) SC PRN (17:45)
[2019-01-09] MEDS ORDERED: GLUCOSE 4 GM CHEW TABLET PO PRN (17:45)
[2019-01-09] MEDS ORDERED: hydrOXYzine 25 MG TAB PO PRN (17:45)
[2019-01-09] MEDS ORDERED: NITROGLYCERIN 0.4 MG SUBL TABLET SL PRN (17:45)
[2019-01-09] MEDS ORDERED: DEXTROSE 50% 50 ML SYRINGE IV PRN (17:45)
[2019-01-09] MEDS ORDERED: EMLA CREAM 5GM (LIDOCAINE/PRILOCAINE) TOP ONE (18:15)
--- NOTE | 2019-01-09 19:04 | HPEPDOC ---
General Date of Admission Jan 09, 2019 at 13:36 Date of Service: Jan 09, 2019 Chief Complaint The patient is a 73-year-old male admitted with a reason for visit of Esrd On Dialysis; Fall. Source: Patient Exam Limitations: No limitations Timing/Duration: Day(s) Severity: Mild Associated Symptoms: Mechanical fall, Other History of Present Illness This is a 73-year-old male with end-stage renal disease that is hemodialysis requiring; he is known to this freelance writer from his last hospital stay. The patient is an inherent fall risk as he has peripheral vascular disease with a left transmetatarsal amputation and diabetic neuropathy. The patient states he was sitting on a stool when he lost his balance and fell off. He did hit the floor. He did hit his head above his right eye. He denies loss of consciousness or any other injury. He denies any precipitating symptoms causing his fall such as dizziness or lightheadedness. He otherwise has been doing well at home. He has been receiving care in addition to a wound VAC to his right upper extremity. He has been following his hemodialysis schedule. He did go to his last clinic appointment on January 07. Home Medications Scheduled Aspirin (Aspirin EC) 81 Mg Tab, 81 MG PO DAILY, (Reported) Atorvastatin Calcium (Atorvastatin Calcium) 20 Mg Tab, 20 MG PO DAILY, (Reported) AT NOON Bacillus Coagulans (Bacid with Lactospore) 1 Cap Cap, 1 CAP PO BID, (Reported) Calcium Carbonate (Calcium Carbonate) 500 Mg Tablet, 500 MG PO DAILY, (Reported) Cholecalciferol (Vitamin D3) (Vitamin D3) 1,000 Unit Tab, 1,000 UNITS PO DAILY, (Reported) Cyanocobalamin (Vitamin B-12) (Vitamin B-12) 500 Mcg Tab, 1,000 MCG PO DAILY, (Reported) Fluticasone Propionate (Flonase Allergy Relief) 9.9 Ml [place].susp, 2 SPRAY NA D AILY, (Reported) Gabapentin (Gabapentin) 100 Mg Cap, 100 MG PO DAILY, (Reported) AT NOON Insulin Aspart (Novolog Flexpen) 100 Unit/Ml Inj, 1 DOSE SC BID, (Reported) PER SLIDING SCALE WITH BREAKFAST AND DINNER Lidocaine/Prilocaine (Lidocaine-Prilocaine Cream) 2.5%/2.5% Cream..g., 1 APLCT TOP ASDIRECTED, (Reported) APPLY TO DIALYSIS ACCESS SITE ONE HOUR PRIOR TO DIALYSIS Metoprolol Tartrate (Metoprolol Tartrate) 25 Mg Tab, 25 MG PO BID, (Reported) Pantoprazole Sodium (Pantoprazole Sodium) 40 Mg Tablet.dr, 40 MG PO DAILY, (Reported) Sevelamer Carbonate (Sevelamer Carbonate) 800 Mg Tab, 800 MG PO BID, (Reported) WITH BREAKFAST AND DINNER Vit B Comp No.3/Folic/C/Biotin (Nephro-Martin Rx Tablet) 1 Tab Tab, 1 TAB PO DAILY, (Reported) Warfarin Sodium (Warfarin Sodium) 5 Mg Tablet, 5 MG PO QPM, (Reported) Scheduled PRN Albuterol Sulfate (Ventolin Hfa) 108 Mcg/Act Aer, 2 PUFFS INH QID PRN for SHORTNESS OF BREATH, (Reported) Hydroxyzine HCl (Hydroxyzine HCl) 25 Mg Tablet, 25 MG PO BID PRN for ITCHING, (Reported) Nitroglycerin (Nitrostat) 0.4 Mg Subl, 0.4 MG SL NITRO PRN for ANGINA, (Reported) Allergies Coded Allergies: No Known Allergies (Verified , 03/03/17) Past Medical History Medical History Past medical history is especially remarkable for multiple wounds with infections. Most recently he has had a right upper extremity ulcer and abscess for which he is status post debridement and still has ongoing wound care with wound VAC. Other past medical history includes chronic kidney disease stage V, which is hemodialysis requiring, [id number]-dlhjvenyb diabetes mellitus, obstructive sleep apnea for which he usually sleeps with a bipap mask, atrial fibrillation with chronic anticoagulation with Coumadin, essential hypertension, dyslipidemia, coronary artery disease, morbid obesity, peripheral vascular disease Surgical History Past surgical history includes fistula placement, excisional debridement of right upper extremity ulcer and abscess, left transmetatarsal amputation, dialysis catheter placement, most recently to the right upper chest, pacemaker placement, hernia repair Family History Significant Family History: Hypertension Social History * Smoker: Denies Alcohol: Denies Drugs: denies Psychosocial History: No pertinent psych hx Lives at home with his ; uses both walker and cane for ambulation; he is full CODE STATUS A-FIB/CHADSVASC A-FIB History Current/History of A-Fib/PAF?: Yes Current PO Anticoag Therapy: Yes Review of Systems Other systems 10 system review is otherwise negative except as stated in the HPI Physical Examination General Exam: Positive: Alert, Cooperative, No Acute Distress Eye Exam: Positive: Other Eye Symptoms (the patient has a clouded right cornea from prior injury) ENT Exam: Positive: Atraumatic (no head or scalp contusion), Mucous membr. moist/pink, Tongue Midline, Nares Patent, Other ENT (the patient has poor dentition and this does affect. His speech) Neck Exam: Positive: Supple; Negative: JVD, thyromegaly, +2 carotid pulse wo bruit, Lymphadenopathy, Other Chest Exam: Positive: Normal air movement, Other (rare crackles, no cough; patient has a Vas-Cath in place to right upper chest) Heart Exam: Positive: Rate Normal; Negative: Tachycardic, Bradycardic, Regular Rhythm, Irregular Rhythm, Normal S1, Normal S2, Gallops, Murmurs, Rubs, Other Abdomen Exam: Positive: Normal bowel sounds, Soft, Hernia (has mildly tender, small umbilical hernia), Other (patient has significant central obesity) Extremity Exam: Positive: Edema, Other (right transmetatarsal amputation is stable; has wound VAC in place to his right forearm that is intact and there is no swelling) Skin Exam: Positive: Other skin issue (the patient has very dry skin, especially to his right foot and leg) Neuro Exam: Positive: Strength at 5/5 X4 ext, Normal Tone, Cranial Nerves 3-12 NL Psych Exam: Positive: Mental status NL, Mood NL, Oriented x 3, Other (memory is generally intact) Vital Signs Vital Signs Date Time Temp Pulse Resp B/P (MAP) Pulse Ox O2 Delivery O2 Flow Rate FiO2 01/09/19 17:14 77 19 97/70 (79) 98 Room Air 01/09/19 13:50 97.1 Laboratory Data Labs 24H Laboratory Tests 2 01/09/19 14:01: Immature Granulocyte % (Auto) 0.2, White Blood Count 5.0, Red Blood Count 3.33L, Hemoglobin 11.1L, Hematocrit 35.9L, Mean Corpuscular Volume 107.8H, Mean Corpuscular Hemoglobin 33.3H, Mean Corpuscular Hemoglobin Concent 30.9L, Red Cell Distribution Width 19.2H, Platelet Count 96L, Neutrophils (%) (Auto) 58.9, Lymphocytes (%) (Auto) 20.8L, Monocytes (%) (Auto) 15.3H, Eosinophils (%) (Auto) 3.6H, Basophils (%) (Auto) 1.2H, Neutrophils # (Auto) 2.9, Lymphocytes # (Auto) 1.0L, Monocytes # (Auto) 0.8, Eosinophils # (Auto) 0.2, Basophils # (Auto) 0.1, Nucleated Red Blood Cells % (auto) 0.0, Immature Platelet Fraction 11.2H, Anion Gap 5L, Glomerular Filtration Rate 9.1L, Blood Urea Nitrogen 42H, Creatinine 7.62H, Sodium Level 140, Potassium Level 4.7, Chloride Level 106, Carbon Dioxide Level 29, Calcium Level 7.4L, Total Creatine Kinase 97, Magnesium Level 2.3, Creatine Kinase MB 3.7H, Creatine Kinase MB Relative Index 3.81, Troponin I 0.1 3H, Thyroid Stimulating Hormone (TSH) 1.770, Ethyl Alcohol Level < 0.003 CBC/BMP Laboratory Tests 01/09/19 14:01 Red Blood Count 3.33 L, Mean Corpuscular Volume 107.8 H, Mean Corpuscular Hemoglobin 33.3 H, Mean Corpuscular Hemoglobin Concent 30.9 L, Red Cell Distribution Width 19.2 H, Neutrophils (%) (Auto) 58.9, Lymphocytes (%) (Auto) 20.8 L, Monocytes (%) (Auto) 15.3 H, Eosinophils (%) (Auto) 3.6 H, Basophils (%) (Auto) 1.2 H, Neutrophils # (Auto) 2.9, Lymphocytes # (Auto) 1.0 L, Monocytes # (Auto) 0.8, Eosinophils # (Auto) 0.2, Basophils # (Auto) 0.1, Calcium Level 7.4 L, Total Creatine Kinase 97 Microbiology Microbiology 01/09/19 Blood Culture, Received Pending 01/09/19 Blood Culture, Received Pending Assessment/Plan This is a 73-year-old male who sustained a fall at home. He does not appear to have had any acute injury by radiologic review. Patient denies loss of consciousness with this event. 1. End-stage renal disease. Patient will continue with his hemodialysis schedule under the supervision of Dr. Rodriguez. 2. Insulin-dependent diabetes mellitus. He will be managed for now with sliding scale insulin. 3. Wound care. The patient's most recent wound is to his right upper extremity at this site of excisional debridement of his abscess. He is still undergoing aggressive wound care with wound VAC in place. It has been requested that we place the patient on antibiotics in the form of Vanco and cefepime. Patient had had significant infection here in the past. 4. Chronic atrial fibrillation. The patient will continue on his rate control medication and anticoagulation with Coumadin. Plan / VTE VTE Prophylaxis Ordered?: No VTE Exclusion Mechanical Proph: [place] Ex Ischemia VTE Exclusion Pharmacological: Other Plan Diet: Continue Current Activity: Continue Current Medications: Start Antibiotics Diagnostics: Repeat Labs in AM Anticipated Discharge: Home With Services AMI RODNEY MD Jan 09, 2019 19:04
[2019-01-09 19:32] LABS: INR 2.59; PROTHROMBIN TIME 27.6 SECONDS (11.8-14.0)
[2019-01-09] MEDS ORDERED: LEVEMIR (INSULIN DETEMIR) 1 UNITS/0.01ML SC SCH (21:00)
[2019-01-09] MEDS: HumaLOG INSULIN (NovoLOG) PER UNIT SC SCH (21:00)
[2019-01-09 21:30] VITALS: BP 120/66
[2019-01-09] MEDS: (RENVELA) SEVELAMER **CARBONate** 800 MG TAB PO SCH (21:55)
[2019-01-09] MEDS: WARFARIN SOD 5 MG TAB PO SCH (21:55)
[2019-01-09] MEDS: LACTOBACILLUS ACIDOPHILUS CAP (BACID) PO SCH (21:55)
[2019-01-09] MEDS: METOPROLOL TART 25 MG TABLET PO SCH (21:56)
[2019-01-10 06:00] VITALS: BP 105/68
[2019-01-10 06:12] LABS: MEAN CORPUSCULAR HEMOGLOBIN 32.6 pg (27.0-33.0); MEAN CORPUSCULAR HGB CONC 30.6 g/dl (32.0-36.5); MEAN CORPUSCULAR VOLUME 106.8 fl (80.0-96.0); RED BLOOD COUNT 3.37 10^6/uL (4.30-6.10); WHITE BLOOD COUNT 5.7 10^3/uL (4.0-10.0)
[2019-01-10 06:23] LABS: PLATELET COUNT, AUTOMATED 93 10^3/uL (150-450)
[2019-01-10 06:25] LABS: INR 2.96; PROTHROMBIN TIME 30.7 SECONDS (11.8-14.0)
[2019-01-10 06:28] LABS: CALCIUM LEVEL 7.6 MG/DL (8.8-10.2); CREATININE FOR GFR 8.49 MG/DL (0.70-1.30); GLOMERULAR FILTRATION RATE 8.1 (>42); POTASSIUM SERUM 5.3 MEQ/L (3.5-5.1)
[2019-01-10] MEDS: ASPIRIN 81 MG ENTERIC TAB PO SCH (07:03)
[2019-01-10] MEDS: (RENVELA) SEVELAMER **CARBONate** 800 MG TAB PO SCH ×2 (07:04→17:35)
[2019-01-10] MEDS: OYSTER SHELL CALCIUM 500 MG TAB PO SCH (07:04)
[2019-01-10] MEDS: CYANOCOBALAMIN 500 MCG TAB PO SCH (07:04)
[2019-01-10] MEDS: VITAMIN D 1,000 INTERNATIONAL UNITS TABLET PO SCH (07:04)
[2019-01-10] MEDS: HumaLOG INSULIN (NovoLOG) PER UNIT SC SCH ×4 (07:04→22:33)
[2019-01-10] MEDS: PANTOPRAZOLE 40MG TAB (PROTONIX) PO SCH (07:04)
[2019-01-10] MEDS: LACTOBACILLUS ACIDOPHILUS CAP (BACID) PO SCH ×2 (07:04→17:35)
[2019-01-10] MEDS: FLUTICASONE PROP 0.05% NASAL SPRAY 16 GM (FLONASE) SCH (08:22)
[2019-01-10] MEDS: NEPHRO-VIT TAB (NEPHROCAPS) PO SCH (08:22)
[2019-01-10] MEDS: METOPROLOL TART 25 MG TABLET PO SCH ×2 (08:24→22:40)
[2019-01-10] MEDS: GABAPENTIN 100 MG CAP PO SCH (12:18)
[2019-01-10] MEDS: MIDODRINE 5 MG TAB PO SCH ×2 (12:18→15:53)
[2019-01-10] MEDS: ATORVASTATIN 20 MG TAB PO SCH (12:18)
--- NOTE | 2019-01-10 12:35 | IPNPDOC ---
Subjective Date Seen The patient was seen on 01/10/19. Subjective Chief Complaint/HPI Patient is comfortable offers no new complaints at the present time General: Denies: ROS Unobtainable, Chills, Night Sweats, Fatigue, Malaise, Normal Appetite, Other Symptoms Constitutional: Denies: Chills, Fever, Malaise, Night Sweats, Weakness, Fatigue, Weight Loss, Lethargy, Other Eyes: Denies: Pain, Vision change, Conjunctivae inflammation, Eyelid inflammation, Redness, Other ENT: Denies: Head Aches, Ear Pain, Dysphagia, Sinus Congestion, Post Nasal Drip, Sore Throat, Epistaxis, Other Symptoms Skin: Denies: Rash, Lesions, Jaundice, Bruising, Itching, Dry, Breakdown, Nail Changes, Other Pulmonary: Denies: Dyspnea, Cough, Pleuritic Chest Pain, Other Symptoms Gastrointestinal: Denies: Nausea, Vomiting, Abdominal Pain, Diarrhea, Constipation, Melena, Hematochezia, Other Symptoms Musculoskeletal: Denies: Neck Pain, Back Pain, Shoulder Pain, Arm Pain, Hand Pa in, Leg Pain, Foot Pain, Joint Pain, Muscle Pain, Spasms, Other Symptoms Neurological: Denies: Weakness, Numbness, Incoordination, Change in speech, Confusion, Seizures, Other Symptoms Objective Physical Examination General Exam: Positive: Alert, Cooperative, No Acute Distress Eye Exam: Positive: Other Eye Symptoms (the patient has a clouded right cornea from prior injury) ENT Exam: Positive: Atraumatic (no head or scalp contusion), Mucous membr. moist/pink, Tongue Midline, Nares Patent, Other ENT (the patient has poor dentition and this does affect. His speech) Neck Exam: Positive: Supple; Negative: JVD, thyromegaly, +2 carotid pulse wo bruit, Lymphadenopathy, Other Chest Exam: Positive: Normal air movement, Other (rare crackles, no cough; patient has a Vas-Cath in place to right upper chest) Heart Exam: Positive: Rate Normal; Negative: Tachycardic, Bradycardic, Regular Rhythm, Irregular Rhythm, Normal S1, Normal S2, Gallops, Murmurs, Rubs, Other Abdomen Exam: Positive: Normal bowel sounds, Soft, Hernia (has mildly tender, small umbilical hernia), Other (patient has significant central obesity) Extremity Exam: Positive: Edema, Other (right transmetatarsal amputation is stable; has wound VAC in place to his right forearm that is intact and there is no swelling) Skin Exam: Positive: Other skin issue (the patient has very dry skin, especially to his right foot and leg) Neuro Exam: Positive: Strength at 5/5 X4 ext, Normal Tone, Cranial Nerves 3-12 NL Psych Exam: Positive: Mental status NL, Mood NL, Oriented x 3, Other (memory is generally intact) Assessment /Plan Problems (1) Fall Status: Acute Problem Text: Most likely mechanical fall PT/ OT has been called Possible discharge in a.m. (2) CKD (chronic kidney disease), stage IV Status: Acute (3) ESRD on dialysis Status: Acute Problem Text: Patient has end-stage renal disease, and ever is on dialysis on Thursday, Wednesdays and Fridays . She'll receive hemodialysis today Further, as per nephrology (4) Diabetes mellitus Status: Chronic Problem Text: Fingerstick blood sugar every before meals and at bedtime with coverage Continue home meds (5) HTN (hypertension) Status: Chronic Problem Text: Under control Continue home meds Plan/VTE VTE Prophylaxis Ordered?: Yes VTE Exclusion Mechanical Proph: Pa[place] Lower Ex Ischemia VTE Exclusion Pharmacological: Other Plan Diet: Continue Current Activity: Continue Current Medications: Start Antibiotics Diagnostics: Repeat Labs in AM Anticipated Discharge: Home With Services VS, I&O, [id number] Vital Signs/I&O Vital Signs Date Time Temp Pulse Resp B/P (MAP) Pulse Ox O2 Delivery O2 Flow Rate FiO2 01/10/19 08:24 115/68 01/10/19 06:00 97.1 79 18 92 01/09/19 20:55 Room Air I&O- Last 24 Hours up to 6 AM 01/10/19 06:00 Intake Total 730 ml Output Total 0 ml Balance 730 ml Laboratory Data 24H LABS Laboratory Tests 2 01/09/19 14:01: Immature Granulocyte % (Auto) 0.2, White Blood Count 5.0, Red Blood Count 3.33L, Hemoglobin 11.1L, Hematocrit 35.9L, Mean Corpuscular Volume 107.8H, Mean Corpuscular Hemoglobin 33.3H, Mean Corpuscular Hemoglobin Concent 30.9L, Red Cell Distribution Width 19.2H, Platelet Count 96L, Neutrophils (%) (Auto) 58.9, Lymphocytes (%) (Auto) 20.8L, Monocytes (%) (Auto) 15.3H, Eosinophils (%) (Auto) 3.6H, Basophils (%) (Auto) 1.2H, Neutrophils # (Auto) 2.9, Lymphocytes # (Auto) 1.0L, Monocytes # (Auto) 0.8, Eosinophils # (Auto) 0.2, Basophils # (Auto) 0.1, Nucleated Red Blood Cells % (auto) 0.0, Immature Platelet Fraction 11.2H, Anion Gap 5L, Glomerular Filtration Rate 9.1L, Blood Urea Nitrogen 42H, Creatinine 7.62H, Sodium Level 140, Potassium Level 4.7, Chloride Level 106, Carbon Dioxide Level 29, Calcium Level 7.4L, Total Creatine Kinase 97, Magnesium Level 2.3, Creatine Kinase MB 3.7H, Creatine Kinase MB Relative Index 3.81, Troponin I 0.13H, Thyroid Stimulating Hormone (TSH) 1.770, Ethyl Alcohol Level < 0.003 01/09/19 14:08: Prothrombin Time 27.6H, Prothromb Time International Ratio 2.59 01/09/19 20:53: Bedside Glucose (Misc Panel) 146H 01/10/19 05:17: Nucleated Red Blood Cells % (auto) 0.0, Anion Gap 11, Glomerular Filtration Rate 8.1L, Blood Urea Nitrogen 49H, Creatinine 8.49*H, Sodium Level 140, Potassium Level 5.3H, Chloride Level 103, Carbon Dioxide Level 26, Calcium Level 7.6L, Prothrombin Time 30.7H, Prothromb Time International Ratio 2.96 01/10/19 06:34: Bedside Glucose (Misc Panel) 88 01/10/19 10:58: Bedside Glucose (Misc Panel) 140H CBC/BMP Laboratory Tests 01/09/19 14:01 Red Blood Count 3.33 L, Mean Corpuscular Volume 107.8 H, Mean Corpuscular Hemoglobin 33.3 H, Mean Corpuscular Hemoglobin Concent 30.9 L, Red Cell Distribution Width 19.2 H, Neutrophils (%) (Auto) 58.9, Lymphocytes (%) (Auto) 20.8 L, Monocytes (%) (Auto) 15.3 H, Eosinophils (%) (Auto) 3.6 H, Basophils (%) (Auto) 1.2 H, Neutrophils # (Auto) 2.9, Lymphocytes # (Auto) 1.0 L, Monocytes # (Auto) 0.8, Eosinophils # (Auto) 0.2, Basophils # (Auto) 0.1, Calcium Level 7.4 L, Total Creatine Kinase 97 01/10/19 05:17 Red Blood Count 3.37 L, Mean Corpuscular Volume 106.8 H, Mean Corpuscular Hemog lobin 32.6, Mean Corpuscular Hemoglobin Concent 30.6 L, Red Cell Distribution Width 18.9 H, Calcium Level 7.6 L Microbiology Microbiology 01/09/19 Blood Culture, Received Pending 01/09/19 Blood Culture, Received Pending MARGARET GARBER MD Jan 10, 2019 12:35
[2019-01-10 16:47] VITALS: BP 117/74
[2019-01-10] MEDS: WARFARIN SOD 5 MG TAB PO SCH (17:35)
--- NOTE | 2019-01-10 20:06 | ECGEPIP ---
[facility] - ED Test Date: 2019-01-09 Pat Name: KATHIA NAVARRETE Department: Room: - Gender: Male Senior Medical Transcriptionist: ANEL : 1945 Requested By: LORENZO Gold Order Number: [id number] Reading MD: Juarez Carranza Measurements Intervals [place] Rate: 75 P: DE: 0 QRS: 33 QRSD: 104 T: 31 QT: 423 QTc: 475 Interpretive Statements ATRIAL FIBRILLATION NONSPECIFIC T-WAVE ABNORMALITY MODERATE INTRAVENTRICULAR CONDUCTION DELAY SIMILAR TO 12/05/18 Electronically Signed on 01-10-2019 20:06:16 EDT by Juarez Carranza
[2019-01-10 22:00] VITALS: BP 114/72
[2019-01-11] MEDS ORDERED: ACETAMINOPHEN TAB 650MG DOSE (2X325MG) PO PRN (00:30)
--- NOTE | 2019-01-11 05:36 | CR ---
DATE OF CONSULTATION: 01/10/2019 REASON FOR CONSULTATION: To assist on the management of end-stage renal disease. HISTORY OF PRESENT ILLNESS: Mr. Lobo is a 73-year-old male with multiple chronic medical problems including longstanding diabetes, hypertension, end-stage renal disease, atrial fibrillation, peripheral vascular disease and obesity. He fell at home due to which he was admitted. He has been feeling dizzy and weak. The patient was last dialyzed on Thursday which is his regular dialysis day. The patient denies any fever. PAST MEDICAL HISTORY: Significant for: 1. Longstanding diabetes. 2. Right forearm wound following infected arteriovenous (AV) fistula requiring a wound vacuum assisted closure (VAC) dressing. 3. Chronic hypotension. 4. Chronic pulmonary obstructive disease (COPD) . 5. Sleep apnea. 6. History of atrial fibrillation. 7. Dyslipidemia. 8. Coronary artery disease. 9. Peripheral vascular disease. 10. Morbid obesity. PAST SURGICAL HISTORY: 1. AV fistula creation in right forearm. 2. Recent infection requiring debridement and creation of a new AV fistula in upper arm, 3. Left transmetatarsal amputation. 4. Perma-Cath placement for dialysis. 5. Pacemaker placement. 6. Hernia surgery. 7. Cataract surgery. HOME MEDICATIONS: - aspirin 81 mg daily - atorvastatin 20 mg daily - calcium carbonate 500 mg daily - vitamin D 1000 units daily - vitamin B12 500 mcg daily - Flonase nasal spray 2 sprays daily - gabapentin 100 mg daily - insulin NovoLog per sliding scale - metoprolol 25 mg twice a day - pantoprazole 40 mg daily - Renvela 800 mg three times a day with meals - multivitamin 1 tablet daily - Coumadin 5 mg daily He also uses albuterol as needed and nitroglycerin as needed. ALLERGIES: NO KNOWN DRUG ALLERGIES. FAMILY HISTORY: Negative for end-stage renal disease. PERSONAL AND SOCIAL HISTORY: The patient denies any alcohol, tobacco or drug use. He lives at home with his . REVIEW OF SYSTEMS: The patient has significant stutter and difficulty with communication. He felt weak and dizzy when he showed up and that was the cause of his fall. He denies any loss of consciousness. Head is atraumatic. He does say that his right forehead did hit an object. There is no laceration. 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 Cardiovascular system: Significant for atrial fibrillation and congestive heart failure. He denies any chest pain. Respiratory system: Significant for obstructive sleep apnea. Gastrointestinal (GI) system: Negative for nausea or vomiting. Genitourinary () system: Negative for dysuria or hematuria. Musculoskeletal system: Significant for left transmetatarsal amputation. He has a wound VAC dressing on his right forearm following debridement of his right arm infected AV fistula. Hematological system: Significant for chronic anticoagulation and anemia of end-stage renal disease. Neurological system: Negative for seizures or stroke. Psychosocial system: Negative for depression or anxiety. Other systems are reviewed and are unremarkable. PHYSICAL EXAMINATION: General: The patient is sitting at the edge of bed at the time of my visit. He has a as his usual level of mentation. Vital signs: Temperature is 97 degrees Fahrenheit, heart rate 79 per minute and respiratory rate 18 per minute. Blood pressure is 115/68 mmHg and oxygen saturation 92% on room air. Neck: His neck is supple and jugular venous distention (JVD) difficult to be assessed. Heart: Sounds are irregular in rhythm. Lungs: Diminished breath sounds. Abdomen: Abdomen is obese, soft and nontender and bowel sounds are normal. Extremities: No cyanosis or clubbing. He has a wound VAC dressing on right forearm. Right upper arm AV fistula is patent. He has also a dressing on the left foot stump where he has transmetatarsal amputation. Neurologically: He is at his baseline mentation and difficulty with his speech which is above his baseline. LABORATORY DATA: Today's labs show WBC count 5.7, hemoglobin 11.0, hematocrit 36.0, platelets 93. Sodium 140, potassium 5.3, CO2 26, BUN 49 and creatinine 8.49. Glucose 92 and calcium 7.6. PROBLEMS: 1. End-stage renal disease. The patient is regularly dialyzed on Thursday, Thursday and Thursday schedule. He was last dialyzed on Thursday and is due for dialysis today. We will go ahead and schedule him for dialysis this afternoon. 2. Hyperkalemia. This is mild and related to end-stage renal disease and will be correct with dialysis. No other intervention is indicated. 3. Hypotension and dizziness. This a chronic issue and blood pressure is at about baseline. We may have to use midodrine if his low blood pressure persists. He has been on metoprolol 25 mg twice a day for atrial fibrillation. 4. Anemia. His anemia is stable and optimum at present. No intervention is needed. 5. Congestive heart failure. He does have history of congestive heart failure with 4-5 kg of weight gain between dialysis treatments. We will try to remove about 4 liters today as tolerated. I am going to start midodrine 5 mg daily and see if that will help to maintain his blood pressure. Thank you for involving me in the care of Mr. Lobo. I will follow him along with you.
[2019-01-11 06:00] VITALS: BP 139/71
[2019-01-11 06:15] LABS: INR 3.74
[2019-01-11] MEDS: HumaLOG INSULIN (NovoLOG) PER UNIT SC SCH ×3 (07:30→17:53)
[2019-01-11] MEDS: ASPIRIN 81 MG ENTERIC TAB PO SCH (08:21)
[2019-01-11] MEDS: MIDODRINE 5 MG TAB PO SCH ×3 (08:21→17:10)
[2019-01-11] MEDS: LACTOBACILLUS ACIDOPHILUS CAP (BACID) PO SCH ×2 (08:21→17:53)
[2019-01-11] MEDS: VITAMIN D 1,000 INTERNATIONAL UNITS TABLET PO SCH (08:21)
[2019-01-11] MEDS: (RENVELA) SEVELAMER **CARBONate** 800 MG TAB PO SCH ×2 (08:21→17:53)
--- NOTE | 2019-01-11 08:21 | REP ---
CT of the cervical spine: Comparison is 05/25/2014. Vertebral body heights and alignment are normal. There is multilevel degenerative disc disease throughout the cervical spine with erosive endplate changes , similar to the prior study. The facets are normally aligned. There are degenerative calcifications in the ligament AP, unchanged. The prevertebral soft tissues are unremarkable. The skull base, C1-C2 are unremarkable except for osteoarthritis. There are no posterior element fractures. Impression: There is no listhesis or fracture. There is multilevel degenerative disc disease with erosive endplate changes , similar to the prior study. Electronically Signed by Sam Luis MD 01/09/2019 02:08 P
--- NOTE | 2019-01-11 08:21 | REP ---
CT of the brain without IV contrast: Comparison is 05/25/2014. There is no subdural or epidural hematoma. There is no other intracranial hemorrhage. There is no mass effect, edema or midline shift. There is mild diffuse atrophy, unchanged. The cortical stripe is unremarkable. The visualized paranasal sinuses are unremarkable. The inferior mastoid air cells are opacified bilaterally as an interval change. This may represent fluid in the mastoid air cells and possibly mastoiditis. Clinical correlation is recommended. Impression: There is no hemorrhage, subdural, acute infarct or mass. The inferior mastoid air cells are opacified bilaterally as an interval change suggestive of fluid within the mastoid air cells and possibly mastoiditis. Clinical correlation is required. Electronically Signed by Sam Luis MD 01/09/2019 01:54 P
[2019-01-11] MEDS: CYANOCOBALAMIN 500 MCG TAB PO SCH (08:22)
[2019-01-11] MEDS: OYSTER SHELL CALCIUM 500 MG TAB PO SCH (08:22)
[2019-01-11] MEDS: PANTOPRAZOLE 40MG TAB (PROTONIX) PO SCH (08:22)
--- NOTE | 2019-01-11 08:22 | REP ---
Portable chest, single AP view with the patient upright, 02:24 p.m.: Comparison is 12/05/2018. Marked cardiomegaly and pacemaker are unchanged. Pulmonary vascular engorgement is unchanged. There are no pleural effusions or focal infiltrates. Dual lumen right IJ central venous catheter with the tip in the right atrium is unchanged. Impression: There is no change Electronically Signed by Sam Luis MD 01/09/2019 03:08 P
[2019-01-11] MEDS: FLUTICASONE PROP 0.05% NASAL SPRAY 16 GM (FLONASE) SCH (08:23)
[2019-01-11] MEDS: NEPHRO-VIT TAB (NEPHROCAPS) PO SCH (08:59)
[2019-01-11 09:00] VITALS: BP 97/59
[2019-01-11] MEDS: METOPROLOL TART 25 MG TABLET PO SCH (09:00)
[2019-01-11 09:17] VITALS: BP 97/59
--- NOTE | 2019-01-11 11:28 | DS.PDOC ---
Discharge Summary General Date of Admission Jan 09, 2019 at 13:36 Date of Discharge 01/11/19 Attending Physician: MARGARET GARBER MD Discharge Summary PROCEDURES PERFORMED DURING STAY: None. ADMITTING DIAGNOSES: 1. Fall, end-stage renal disease on hemodialysis. DISCHARGE DIAGNOSES: 1. Fall, end-stage renal disease on hemodialysis. COMPLICATIONS/CHIEF COMPLAINT: Esrd On Dialysis; Fall. HISTORY OF PRESENT ILLNESS: This is a 73-year-old male with end-stage renal disease that is hemodialysis requiring; he is known to this narrative writer from his last hospital stay. The patient is an inherent fall risk as he has peripheral vascular disease with a left transmetatarsal amputation and diabetic neuropathy. The patient states he was sitting on a stool when he lost his balance and fell off. He did hit the floor. He did hit his head above his right eye. He denies loss of consciousness or any other injury. He denies any precipitating symptoms causing his fall such as dizziness or lightheadedness. He otherwise has been doing well at home. He has been receiving care in addition to a wound VAC to his right upper extremity. He has been following his hemodialysis schedule. He did go to his last clinic appointment on January 07.. HOSPITAL COURSE: Patient was admitted with the diagnosis of fall. Initial workup included x-rays were essentially all negative without any injuries most likely a mechanical fall. He remained stable. Physical therapy had cleared him for discharge. He did receive hemodialysis yesterday and will continue hemodialysis as an outpatient. Patient will continue all his home medications and follow with PCP in one week. Also patient has a wound care nurse who visits him at home with home care for is a superficial wounds on right forearm. DISCHARGE MEDICATIONS: Please see below. ALLERGIES: Please see below. PHYSICAL EXAMINATION ON DISCHARGE: VITAL SIGNS: Please see below. GENERAL: Within normal limits HEENT: PERRLA NECK: Supple CARDIOVASCULAR EXAMINATION: S1, S2, regular RESPIRATORY EXAMINATION: Clear to A&P ABDOMINAL EXAMINATION: , Soft, nontender, bowel sound present EXTREMITIES: No clubbing, cyanosis, edema SKIN: two small. Resolving wounds on his right forearm NEUROLOGICAL EXAMINATION: . No focal motor or sensory deficit PSYCHIATRIC EXAMINATION: Within normal limits LABORATORY DATA: Please see below. IMAGING: None PROGNOSIS: Good ACTIVITY: As tolerated. DIET: As tolerated DISCHARGE PLAN: Follow with PCP and with the nephrology as per HD as scheduled DISPOSITION: . Home DISCHARGE INSTRUCTIONS: 1. As per discharge instruction. ITEMS TO FOLLOWUP ON ON OUTPATIENT: 1. Follow-up with with the nephrology with HD schedule. DISCHARGE CONDITION: Stable. TIME SPENT ON DISCHARGE:25 minutes. Vital Signs/I&Os Vital Signs Date Time Temp Pulse Resp B/P (MAP) Pulse Ox O2 Delivery O2 Flow Rate FiO2 01/11/19 09:17 82 97/59 (72) 01/11/19 06:00 97.9 17 98 01/09/19 20:55 Room Air I&O- Last 24 Hours up to 6 AM 01/11/19 06:00 Intake Total 1020 ml Output Total 4000 ml Balance -2980 ml Laboratory Data Labs 24H Laboratory Tests 2 01/10/19 16:33: Bedside Glucose (Misc Panel) 137H 01/10/19 21:26: Bedside Glucose (Misc Panel) 176H 01/11/19 05:21: Prothrombin Time 37.0H, Prothromb Time International Ratio 3.74 01/11/19 05:51: Bedside Glucose (Misc Panel) 83 FSBS Laboratory Tests Test 01/10/19 16:33 01/10/19 21:26 01/11/19 05:51 Range/Units Bedside Glucose (Misc Panel) 137 176 83 83-110 MG/DL Microbiology Microbiology 01/09/19 Blood Culture - Preliminary, Resulted No growth after 24 hours . All specim... 01/09/19 Blood Culture - Preliminary, Resulted No growth after 24 hours . All specim... Discharge Medications Scheduled Aspirin (Aspirin EC) 81 Mg Tab, 81 MG PO DAILY, (Reported) Atorvastatin Calcium (Atorvastatin Calcium) 20 Mg Tab, 20 MG PO DAILY, (Reported) AT NOON Bacillus Coagulans (Bacid with Lactospore) 1 Cap Cap, 1 CAP PO BID, (Reported) Calcium Carbonate (Calcium Carbonate) 500 Mg Tablet, 500 MG PO DAILY, (Reported) Cholecalciferol (Vitamin D3) (Vitamin D3) 1,000 Unit Tab, 1,000 UNITS PO DAILY, (Reported) Cyanocobalamin (Vitamin B-12) (Vitamin B-12) 500 Mcg Tab, 1,000 MCG PO DAILY, (Reported) Fluticasone Propionate (Flonase Allergy Relief) 9.9 Ml [place].susp, 2 SPRAY NA DAILY, (Reported) Gabapentin (Gabapentin) 100 Mg Cap, 100 MG PO DAILY, (Reported) AT NOON Insulin Aspart (Novolog Flexpen) 100 Unit/Ml Inj, 1 DOSE SC BID, (Reported) PER SLIDING SCALE WITH BREAKFAST AND DINNER Lidocaine/Prilocaine (Lidocaine-Prilocaine Cream) 2.5%/2.5% Cream..g., 1 APLCT TOP ASDIRECTED, (Reported) APPLY TO DIALYSIS ACCESS SITE ONE HOUR PRIOR TO DIALYSIS Metoprolol Tartrate (Metoprolol Tartrate) 25 Mg Tab, 25 MG PO BID, (Reported) Pantoprazole Sodium (Pantoprazole Sodium) 40 Mg Tablet.dr, 40 MG PO DAILY, (Reported) Sevelamer Carbonate (Sevelamer Carbonate) 800 Mg Tab, 800 MG PO BID, (Reported) WITH BREAKFAST AND DINNER Vit B Comp No.3/Folic/C/Biotin (Nephro-Martin Rx Tablet) 1 Tab Tab, 1 TAB PO DAILY, (Reported) Warfarin Sodium (Warfarin Sodium) 5 Mg Tablet, 5 MG PO QPM, (Reported) Scheduled PRN Albuterol Sulfate (Ventolin Hfa) 108 Mcg/Act Aer, 2 PUFFS INH QID PRN for SHORTNESS OF BREATH, (Reported) Hydroxyzine HCl (Hydroxyzine HCl) 25 Mg Tablet, 25 MG PO BID PRN for ITCHING, (Reported) Nitroglycerin (Nitrostat) 0.4 Mg Subl, 0.4 MG SL NITRO PRN for ANGINA, (Reported) Allergies Coded Allergies: No Known Allergies (Verified , 03/03/17) MARGARET GARBER MD Jan 11, 2019 11:28
[2019-01-11] MEDS: GABAPENTIN 100 MG CAP PO SCH (12:19)
[2019-01-11] MEDS: ATORVASTATIN 20 MG TAB PO SCH (12:19)
[2019-01-11 14:00] VITALS: BP 130/76
[2019-01-11] MEDS: WARFARIN SOD 5 MG TAB PO SCH (17:10)
--- NOTE | 2019-01-12 00:23 | IPN ---
DATE: 01/11/2019 Mr. Lobo is seen this morning on his bedside. He is sitting at the edge of bed. putty worker was talking to him about going home as the patient has been cleared by physical therapy and hospitalist service has decided to discharge. The patient feels that he is too weak and still feels dizzy when he stands up. He does not feel that he is ready to go home. In the meantime, he was dialyzed yesterday and he tolerated his dialysis reasonably well. I have also started him on midodrine 5 mg three times a day due to persistent hypotension and orthostatic hypotension with a fall at home. The patient denies any nausea, vomiting, dyspnea, chest pain, headache, fever or chills. PHYSICAL EXAMINATION: Temperature 97.9 degrees Fahrenheit, heart rate 82 per minute and respiratory rate 17 per minute. Blood pressure was 139/71 mmHg this morning and now most recent one is 97/59. His head is atraumatic. 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 Neck veins are difficult to be assessed. He does have a Perma-Cath in right internal jugular vein. Heart: Sounds are irregular in rhythm and lungs with diminished breath sounds. Abdomen is obese, soft and nontender and bowel sounds are normal. Extremities: Without any cyanosis or clubbing. Neurologically he is at his baseline mentation. His PT is 37.0 today and INR 3.74. Chemistry and CBC were done yesterday. PROBLEM #1: End-stage renal disease. The patient was dialyzed yesterday and next regular dialysis day will be tomorrow. At present, his volume status is well compensated, and there is no emergent need for dialysis today. PROBLEM #2: Hyperkalemia. The patient has mild hyperkalemia, which is likely already corrected as he was dialyzed yesterday. He did not have any new labs today. There is no need for repeating labs at this point. PROBLEM #3: Hypotension. The patient has chronic hypotension and midodrine 5 mg three times a day has been started. We will continue to watch him and see how he does. PROBLEM #4: Anemia. His anemia has been stable and does not need any urgent intervention. PROBLEM #5: Disposition. The patient is feeling weak and dizzy when he stands up. He does not feel that he is ready for discharge. I will defer to the physical therapy and hospitalist service.
== END 2019-01-11 18:28 | disposition home or self-care (01) ==
LOC: M ED 13:35 → EDBD 13:35 → M ED INP 13:36 → M MSPAV 21:06
PROVIDERS: ADMIT Internal Medicine; ATTEND Internal Medicine
DX: R29.6 Repeated falls (principal); N18.6 End stage renal disease; Z99.2 Dependence on renal dialysis; E87.5 Hyperkalemia; I95.89 Other hypotension; R42 Dizziness and giddiness; D63.1 Anemia in chronic kidney disease; E11.628 Type 2 diabetes mellitus with other skin complications; E11.621 Type 2 diabetes mellitus with foot ulcer; I50.9 Heart failure, unspecified; E11.40 Type 2 diabetes mellitus with diabetic neuropathy, unspecified; E11.29 Type 2 diabetes mellitus with other diabetic kidney complication; I13.2 Hypertensive heart and chronic kidney disease with heart failure and with stage 5 chronic kidney disease, or end stage renal disease; J44.9 Chronic obstructive pulmonary disease, unspecified; G47.33 Obstructive sleep apnea (adult) (pediatric); I48.2 Chronic atrial fibrillation; E78.5 Hyperlipidemia, unspecified; I73.9 Peripheral vascular disease, unspecified; E66.01 Morbid (severe) obesity due to excess calories; Z68.38 Body mass index [BMI] 38.0-38.9, adult; Z89.422 Acquired absence of other left toe(s); Z79.899 Other long term (current) drug therapy; Z79.82 Long term (current) use of aspirin; Z79.4 Long term (current) use of insulin; Z79.01 Long term (current) use of anticoagulants; Z95.0 Presence of cardiac pacemaker
CPT/HCPCS: 36415; 70450; 71045; 72125; 80048; 82550; 82553; 83735; 84443; 84484; 85025; 85027; 85049; 85055; 85610; 87040; 93005; 93041; 94760; 96361; 96365; 96375; 97161; 99285; G0257; G0378; G0480; J0692; J3370

== ENCOUNTER → 2019-02-01 | Outpatient (CLI) | payer MEDICARE, MEDICAID ==
[~2019-02-01] MED LIST changes: +COUM1TAB14 PO; +INCR1INH INH; +LACT10SO29 PO; +Lactulose Syrup PO; +OXYC1TAB23 PO; +VITAD1000T PO; +XIFA200T2 PO; +XIFA550T PO
--- NOTE | 2019-02-01 18:58 | REP ---
SCROTAL ULTRASOUND: Real-time sonographic evaluation of the scrotum and contents performed. Testicles are normal in size, right testicle measuring 4.1 x 2.5 x 2.8 cm and left testicle 3.6 x 2.5 x 2.7 cm. 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 No testicular mass is seen. There is no torsion, RI right testicle 0.44 and left testicle 0.37. Bilateral hydroceles are noted containing scattered floating debris. The hydroceles are fairly large. There appears to be a small left-sided appendage of the epididymis 4 mm in diameter. IMPRESSION: No testicular mass or torsion. Testicular microlithiasis diffusely bilaterally. Recommend followup screening ultrasound of the testicles yearly, as patients with testicular microlithiasis are predisposed to development of neoplasm. Large bilateral hydroceles containing debris. Electronically Signed by Sam Sharif MD 02/03/2019 04:35 P
== END ==
LOC: M RAD 13:57
PROVIDERS: ATTEND Urology
DX: N43.0 Encysted hydrocele (principal); N50.819 Testicular pain, unspecified

== ENCOUNTER → 2019-02-03 | Outpatient (CLI) | payer MEDICARE, MEDICAID ==
[~2019-02-03] MED LIST changes: +BUPIVACAINE HCL 0.5% 10 ML VIAL As Ordered ONE; -COUM1TAB14 PO; +ISOVUE-300 61% 50ML VIAL (Q9967) As Ordered ONE; -LACT10SO29 PO; +LIDOCAINE 2% MDV 20 ML VIAL As Ordered ONE; -Lactulose Syrup PO; +MIDAZOLAM INJ 2 MG/2 ML VIAL (J2250) As Ordered ONE; -OXYC1TAB23 PO; -VITAD1000T PO; -XIFA200T2 PO; -XIFA550T PO; +diphenhydrAMINE INJ 50MG/ML VIAL (J1200) As Ordered ONE; +fentaNYL 100 MCG/2 ML INJECTION (J3010) As Ordered ONE
[2019-02-03 15:51] VITALS: BP 90/60
--- NOTE | 2019-02-03 17:44 | ROOPDOC ---
[facility] Report Of Operation Report of Operation DATE OF PROCEDURE: 02/03/2019 PREOPERATIVE DIAGNOSIS: End-stage renal disease. Dysfunctional right autogenous brachiocephalic arteriovenous fistula. POSTOPERATIVE DIAGNOSIS: End-stage renal disease. Dysfunctional right autogenous brachiocephalic arteriovenous fistula. PROCEDURE: Right brachiocephalic autogenous arteriovenous fistulogram. Retrograde right brachial artery angiogram. SURGEON: Dr. Asif Benjamin MD PERSONAL PROPERTY APPRAISER: Radha Mcpherson and Basil Snyder INDICATION: Patient is a 73-year-old male with end-stage renal disease who dialyzes through a right brachiocephalic arteriovenous fistula. Patient has had difficulty with cannulation and has continued to need the usage of his right internal jugular vein tunneled central venous catheter. Patient will undergo a right brachiocephalic arteriovenous fistulogram. Procedure was explained and described to the patient in detail including drawing of pictures demonstrating the procedure and the anatomy. Risks, benefits and alternative treatment options were discussed with the patient. Benefits included but were not limited to improved functioning of the arterial venous fistula and maintained patency. Alternative treatment options included but were not limited to no intervention. Risks included but were not limited to infection, bleeding, loss of arterioveno us access, steal syndrome, possible need for open surgical intervention, anesthetic complications, allergic reaction or complication from the prepping and draping materials, allergic reaction or complication from the contrast, scarring of the skin, hematoma formation, scarring, bruising, possible need for transfusion of blood products, cerebrovascular accident, myocardial infarction, pulmonary embolus, deep venous thrombosis, loss of limb, loss of life and poor outcome. Risks of not performing the procedure included but were not limited to loss of autogenous arteriovenous access with need for placement of a tunneled central venous catheter for access and creation of a new access for hemodialysis Patient's questions were answered. Patient voices understanding of these risks, benefits and alternative treatment options. Patient voices acceptance of these risks associated with the procedure and consents to proceed with a fistulogram with possible angioplasty, atherectomy and/or stenting. No promises or guaran tees were made to the patient regarding the procedure results or outcome. The patient signed the consent in the preoperative holding area. ANESTHESIA: Local with 3 mL of 2% lidocaine mixed with 0.5% Marcaine SEDATION TIME: No sedation was given. ESTIMATED BLOOD LOSS: 5 mL. IV FLUIDS: 50 mL. HEPARIN: None PROTAMINE: None FLUORO TIME: 0.1 minutes CONTRAST: 3 mL. of isovue 300 COMPLICATIONS: None DRAINS: None. SPECIMENS: None. IMPLANTS: None PROCEDURE: Patient was taken to the angiography suite, placed supine on the angiography room table and then prepped and draped in a standard surgical fashion. A procedural time-out was conducted by myself and the team members involved in the procedure confirming the correct patient, procedure and laterality. The right brachiocephalic autogenous arteriovenous fistulas and then cannulated with a micro-puncture needle after anesthetizing the overlying skin and subcutaneous tissue with 2% lidocaine mixed with 0.5% Marcaine. A micropuncture wire was advanced through the micropuncture needle which was up- sized to a micropuncture sheath. A fistulogram and retrograde right brachial artery angiogram were performed showing no intervention was required. The catheter was removed and manual compression applied at the puncture site for hemostasis. Dressings were then applied. Patient tolerated the procedure well. There were no complications. All instrument, sponge and needle counts were correct at the end of the case. Dr. Benjamin was present for and directed the entire case. Patient was transferred to the recovery area and subsequently discharged in stable condition to home. The results of the procedure were described and explained to the patient in the post operative holding area with all of his questions answered. RADIOLOGIC SUPERVISION AND INTERPRETATION: The fistulogram showed the cephalic vein to be widely patent to the central venous system with stenosis noted in the cephalic arch and at the junction of the cephalic vein and subclavian vein with collateral flow around the stenotic area. The retrograde brachial artery angiogram showed the remainder of the cephalic vein from the cannulation site to the brachial artery to be widely patent. There was good flow in the brachial artery proximal and distal to the arteriovenous anastomosis. There was no stenosis at the arteriovenous anastomosis. There was a large collateral or iginating off the cephalic vein in the antecubital fossa and coursing into the deeper venous system. CONCLUSION: The fistula was widely patent and required no intervention and was of adequate size for access for hemodialysis. Patient will continue to attempt usage of the fistula for dialysis access. Patient does have narrowing in the cephalic arch which may require angioplasty in the future as well as a large collateral vein which may require ligation for better use of the fistula. PLAN: Patient will continue to use the fistula for attempted hemodialysis access and follow-up in 2-3 weeks for reevaluation. Patient will require angioplasty of the cephalic vein subclavian vein and innominate vein at the time of removal of the tunneled central venous catheter on the right. Renato Benjamin MD Feb 03, 2019 17:44
== END ==
LOC: M IRPRO 14:12
PROVIDERS: ATTEND Surgery Vascular Surgery
DX: T82.598A Other mechanical complication of other cardiac and vascular devices and implants, initial encounter (principal); N18.6 End stage renal disease
CPT/HCPCS: 15271; 36901; C1894; Q4196; Q9967

== ENCOUNTER 2019-02-07 23:35 | Emergency (ER) | payer MEDICARE, MEDICAID ==
[~2019-02-07] VITALS: Ht 188 cm; Wt 131.8 kg
[~2019-02-07 23:35] MED LIST changes: -BUPIVACAINE HCL 0.5% 10 ML VIAL As Ordered ONE; -INCR1INH INH; -ISOVUE-300 61% 50ML VIAL (Q9967) As Ordered ONE; -LIDOCAINE 2% MDV 20 ML VIAL As Ordered ONE; -MIDAZOLAM INJ 2 MG/2 ML VIAL (J2250) As Ordered ONE; -diphenhydrAMINE INJ 50MG/ML VIAL (J1200) As Ordered ONE; -fentaNYL 100 MCG/2 ML INJECTION (J3010) As Ordered ONE
[2019-02-08] MEDS ORDERED: INCR1INH INH (00:13)
--- NOTE | 2019-02-08 00:49 | REPVR ---
PROCEDURE INFORMATION: Exam: CT Head Without Contrast Exam date and time: 02/07/2019 11:37 PM Clinical history: 73 years old, male; Injury or trauma; Fall; Initial encounter; Concussion / head injury TECHNIQUE: Imaging protocol: Computed tomography of the head without contrast. Radiation optimization: All CT scans at this facility use at least one of these dose optimization techniques: automated exposure control; mA and/or kV adjustment per patient size (includes targeted exams where dose is matched to clinical indication); or iterative reconstruction. COMPARISON: CT Head without contrast 01/09/2019 1:37 PM FINDINGS: Brain: There is no evidence for an acute large vessel territorial infarct, intracranial hemorrhage, mass, mass effect, or herniation. There are mild non-specific foci of low attenuation in the periventricular white matter, which are likely the sequela of chronic small vessel ischemic injury and are similar in appearance compared to the prior CT on 01/09/2019. Brainstem: Unremarkable. Midline shift: There is no midline shift. Ventricles: The ventricles are mildly dilated in proportion to the sulci, which is compatible with mild generalized cerebral volume loss that is similar in appearance compared to the prior CT on 01/09/2019. Bones/joints: Unremarkable. No acute fracture. Sinuses: Visualized sinuses are unremarkable. No fluid levels. Mastoid air cells: There is a moderate amount of fluid in the inferior aspect of the mastoid air cells bilaterally that is similar in appearance compared to the prior CT on 01/09/2019. No erosion of the mastoid cortex or dehiscence of the mastoid septa is noted. Soft tissues: Unremarkable. Vasculature: There are atherosclerotic calcifications of the intracranial portion of the internal carotid arteries and the left vertebral artery. IMPRESSION: 1. No acute intracranial abnormality. 2. Moderate amount of fluid in the inferior aspect of the mastoid air cells bilaterally that is similar in appearance compared to the prior CT on 01/09/2019 and may represent mastoiditis. Electronically signed by: Gene Mckeon On 02/08/2019 00:49:45 AM
--- NOTE | 2019-02-08 00:57 | REPVR ---
PROCEDURE INFORMATION: Exam: CT Cervical Spine Without Contrast Exam date and time: 02/07/2019 11:37 PM Clinical history: 73 years old, male; Injury or trauma; Fall; Initial encounter; Concussion /head injury TECHNIQUE: Imaging protocol: Computed tomography images of the cervical spine without contrast. Radiation optimization: All CT scans at this facility use at least one of these dose optimization techniques: automated exposure control; mA and/or kV adjustment per patient size (includes targeted exams where dose is matched to clinical indication); or iterative reconstruction. COMPARISON: CT Spine,cervical w/o contrast 01/09/2019 1:37 PM FINDINGS: Limitations: Motion artifact degrades the image quality. Tubes, catheters and devices: A right internal jugular central venous line was partially imaged. A left-sided pacemaker device was partially imaged. Vertebrae: There is straightening of the normal cervical lordosis. The atlantooccipital alignment is normal. The atlantoaxial alignment is normal. There are degenerative changes involving the atlantoaxial joint. There is no fracture. The vertebral body heights are preserved. There is no cervical rib. There is hypertrophy of both transverse processes of C7. C2-C3: There is mild loss of disc height. No disc herniation, spinal canal stenosis, or neural foraminal stenosis is identified. The facet joints are unremarkable. There are Schmorl's nodes in the inferior endplate of C2 and superior endplate of C3. There is right uncovertebral hypertrophy. These findings are similar in appearance compared to the prior CT on 01/09/2019. C3-C4: There is mild loss of disc height, a broad-based posterior disc osteophyte complex, bilateral uncovertebral hypertrophy, and mild osteoarthritis of the facet joints. There is mild spinal canal stenosis and moderate right neural foraminal stenosis. No left neural foraminal stenosis is noted. These findings are similar in appearance compared to the prior CT on 01/09/2019. C4-C5: There is mild loss of disc height, a 2-3 mm grade 1 anterolisthesis of C4 on C5 with uncovering of the disc posteriorly, and severe osteoarthritis of the facet joints. There is mild to moderate left neural foraminal stenosis. No spinal canal stenosis or right neural foraminal stenosis is noted. These findings are similar in appearance compared to the prior CT on 01/09/2019. C5-C6: There is mild loss of disc height, Schmorl's nodes in the inferior endplate of C5, and endplate spurs. No disc herniation, spinal canal stenosis, or neural foraminal stenosis is identified. The facet joints are unremarkable. These findings are similar in appearance compared to the prior CT on 01/09/2019. C6-C7: There is severe loss of disc height, Schmorl's nodes in the inferior endplate of C6 and superior endplate of C7, endplate spurs, and left uncovertebral hypertrophy. No disc herniation, spinal canal stenosis, or neural foraminal stenosis is identified. The facet joints are unremarkable. These findings are similar in appearance compared to the prior CT on 01/09/2019. C7-T1: The disc height is preserved. No disc herniation, spinal canal stenosis, or neural foraminal stenosis is identified. The facet joints are unremarkable. These findings are similar in appearance compared to the prior CT on 01/09/2019. T1-T2: The disc height is preserved. No disc herniation, spinal canal stenosis, or neural foraminal stenosis is identified. There is mild osteoarthritis of the facet joints. These findings are similar in appearance compared to the prior CT on 01/09/2019. T2-T3: There is mild to moderate loss of disc height and endplate spurs. No disc herniation, spinal canal stenosis, or neural foraminal stenosis is identified. The facet joints are unremarkable. This level was not imaged in the prior CT on 01/09/2019. Soft tissues: Unremarkable. No soft tissue fluid collection is noted. Prevertebral Space: No prevertebral soft tissue swelling is noted. Vasculature: There are atherosclerotic calcifications of the carotid bulbs. Lungs: The imaged lung apices are clear. IMPRESSION: 1. Straightening of the normal cervical lordosis, but no fracture in the cervical spine. 2. C3-C4: Mild spinal canal stenosis and moderate right neural foraminal stenosis that is similar compared to the prior CT on 01/09/2019. 3. C4-C5: Mild to moderate left neural foraminal stenosis that is similar compared to the prior CT on 01/09/2019. Electronically signed by: Gene Mckeon On 02/08/2019 00:57:25 AM
[2019-02-08 01:23] LABS: BASO % 0.5 % (0.0-1.0); EOS # 0.2 10^3/uL (0.0-0.5); EOS % 2.5 % (0.0-3.0); HEMOGLOBIN 10.7 g/dl (13.5-17.5); LYMPH # 1.2 10^3/uL (1.5-5.0); LYMPH % 15.7 % (24.0-44.0); MEAN CORPUSCULAR HEMOGLOBIN 34.3 pg (27.0-33.0); MEAN CORPUSCULAR HGB CONC 32.4 g/dl (32.0-36.5); MEAN CORPUSCULAR VOLUME 105.8 fl (80.0-96.0); MONO # 1.2 10^3/uL (0.0-0.8); MONO % 16.1 % (0.0-5.0); NEUTROPHILS # 4.8 10^3/uL (1.5-8.5); NEUTROPHILS % 64.7 % (36.0-66.0); PLATELET COUNT, AUTOMATED 120 10^3/uL (150-450); RED BLOOD COUNT 3.12 10^6/uL (4.30-6.10); WHITE BLOOD COUNT 7.5 10^3/uL (4.0-10.0)
[2019-02-08 01:40] LABS: BILIRUBIN,DIRECT 0.6 MG/DL (0.0-0.2); CALCIUM LEVEL 7.5 MG/DL (8.8-10.2); CK-MB VALUE MASS 2.2 NG/ML (<3.6); CREATININE FOR GFR 6.43 MG/DL (0.70-1.30); GLOMERULAR FILTRATION RATE 11.1 (>42); MB/CK RELATIVE INDEX 2.34 (< OR =4); POTASSIUM SERUM 4.1 MEQ/L (3.5-5.1); THYROID STIMULATING HORMONE 1.77 uIU/ML (0.358-3.740); TROPONIN I 0.11 NG/ML (< 0.10)
[2019-02-08] MEDS ORDERED: NS 500 ML IV ONE (02:00)
[2019-02-08 02:05] LABS: INR 1.67; PROTHROMBIN TIME 19.4 SECONDS (11.8-14.0)
[2019-02-08 02:06] LABS: PARTIAL THROMBOPLASTIN TIME 43.5 SECONDS (25.0-38.4)
[2019-02-08 04:46] VITALS: BP 100/55
--- NOTE | 2019-02-08 17:40 | ECGEPIP ---
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
--- NOTE | 2019-02-09 12:38 | ED PDOC ---
Post-Departure Follow-Up dr ruiz faxed formal report of ct c spine for fu Kena Peck MD Feb 09, 2019 12:38
== END 2019-02-08 05:13 | disposition home or self-care (01) ==
LOC: M ED 23:35
DX: I95.1 Orthostatic hypotension (principal); N18.6 End stage renal disease; Z99.2 Dependence on renal dialysis; Z79.899 Other long term (current) drug therapy; Z79.84 Long term (current) use of oral hypoglycemic drugs; Z79.82 Long term (current) use of aspirin; Z79.01 Long term (current) use of anticoagulants

== ENCOUNTER 2019-03-01 16:29 | Inpatient (IN) | payer MEDICARE, MEDICAID ==
[~2019-03-01] VITALS: Ht 182.9 cm; Wt 135.6 kg
[~2019-03-01 16:29] MED LIST changes: +INCR1INH INH
[2019-03-01] MEDS ORDERED: COUM1TAB14 PO (16:55)
[2019-03-01 17:48] LABS: HEMATOCRIT 35.8 % (42.0-52.0); HEMOGLOBIN 11.4 g/dl (13.5-17.5); MEAN CORPUSCULAR HEMOGLOBIN 34.1 pg (27.0-33.0); MEAN CORPUSCULAR HGB CONC 31.8 g/dl (32.0-36.5); MEAN CORPUSCULAR VOLUME 107.2 fl (80.0-96.0); PLATELET COUNT, AUTOMATED 118 10^3/uL (150-450); RED BLOOD COUNT 3.34 10^6/uL (4.30-6.10); WHITE BLOOD COUNT 7.6 10^3/uL (4.0-10.0)
--- NOTE | 2019-03-01 17:55 | REPVR ---
PROCEDURE INFORMATION: Exam: CT Head Without Contrast Exam date and time: 03/01/2019 5:33 PM Clinical history: 73 years old, male; Speech disturbance; Additional info: Speech changes TECHNIQUE: Imaging protocol: Computed tomography of the head without contrast. Radiation optimization: All CT scans at this facility use at least one of these dose optimization techniques: automated exposure control; mA and/or kV adjustment per patient size (includes targeted exams where dose is matched to clinical indication); or iterative reconstruction. COMPARISON: CT Head without contrast 02/07/2019 11:43 PM FINDINGS: Brain: Global cerebral atrophy is consistent with patient's age. Decreased attenuation within the white matter tracts of both cerebral hemispheres is nonspecific but typically seen with small vessel disease/chronic white matter ischemic changes of aging. No dominant vascular territory acute stroke identified. No intracranial hemorrhage or mass effect. Ventricles: Unremarkable. No ventriculomegaly. Bones/joints: Unremarkable. No acute fracture. Sinuses: Visualized sinuses are unremarkable. No fluid levels. Mastoid air cells: Bilateral mastoid effusions. Soft tissues: Unremarkable. Vasculature: Atherosclerosis of the cavernous carotid arteries. IMPRESSION: 1. No acute intracranial abnormality. 2. Bilateral mastoid effusions. Electronically signed by: Negro Vizcaino On 03/01/2019 17:55:04 PM
[2019-03-01 18:19] LABS: CALCIUM LEVEL 7.6 MG/DL (8.8-10.2); CREATININE FOR GFR 7.13 MG/DL (0.70-1.30); GLOMERULAR FILTRATION RATE 9.9 (>42); POTASSIUM SERUM 4.1 MEQ/L (3.5-5.1)
[2019-03-01 19:21] LABS: ALBUMIN 3.2 GM/DL (3.2-5.2); BILIRUBIN,DIRECT 0.6 MG/DL (0.0-0.2); BILIRUBIN,TOTAL 0.9 MG/DL (0.2-1.0); TOTAL PROTEIN 7.4 GM/DL (6.4-8.2)
[2019-03-01] MEDS ORDERED: WARF-23 PO (20:20)
[2019-03-01] MEDS ORDERED: MAALOX 30 ML SUSP *UDC PO PRN (20:30)
[2019-03-01] MEDS ORDERED: MOM 30ML SUSPENSION UDC PO PRN (20:30)
[2019-03-01] MEDS ORDERED: ACETAMINOPHEN TAB 650MG DOSE (2X325MG) PO PRN (20:30)
--- NOTE | 2019-03-01 20:42 | HPEPDOC ---
General Date of Admission 03/01/19 Date of Service: Mar 01, 2019 Primary Care Physician: SUSAN BURKETT PA-C Chief Complaint The patient is a 73-year-old male admitted with a reason for visit of Alter Speech. Source: Patient, Family Exam Limitations: No limitations Timing/Duration: Other (Thursday) Severity: Mild Associated Symptoms: Other (, slurred speech) History of Present Illness This is 73 years old -Central African male with past medical history of end-s tage renal disease on dialysis Thursday, Thursday, Thursday, dyslipidemia, hypertension, platelet 2. Sleep apnea on CPAP, atrial fibrillation, tachybradycardia syndrome, insulin-dependent diabetes mellitus, morbid obesity, permanent pacemaker was brought in via ambulance by his 's request. As per p earle's is a speech, is more slurred and garbled since today and she notices it is more pronounced. When talked to the patient is a speech is clear, then he claims that his speech is always like that and didn't notice any difference. Denies any chest pain, shortness of breath, nausea, vomiting, diarrhea or abdominal pain, denies any motor or sensory weakness or cranial nerve deficit Home Medications Scheduled Aspirin (Aspirin EC) 81 Mg Tab, 81 MG PO DAILY, (Reported) Atorvastatin Calcium (Atorvastatin Calcium) 20 Mg Tab, 20 MG PO DAILY, (Reported) AT NOON Calcium Carbonate (Calcium Carbonate) 500 Mg Tablet, 500 MG PO DAILY, (Reported) Cholecalciferol (Vitamin D3) (Vitamin D3) 1,000 Unit Tab, 1,000 UNITS PO DAILY, (Reported) Cyanocobalamin (Vitamin B-12) (Vitamin B-12) 500 Mcg Tab, 1,000 MCG PO DAILY, (Reported) Gabapentin (Gabapentin) 100 Mg Cap, 100 MG PO DAILY, (Reported) AT NOON Insulin Aspart (Novolog Flexpen) 100 Unit/Ml Inj, 1 DOSE SC DAILY, (Reported) PER SLIDING SCALE WITH BREAKFAST Lidocaine/Prilocaine (Lidocaine-Prilocaine Cream) 2.5%/2.5% Cream..g., 1 APLCT TOP ASDIRECTED, (Reported) APPLY TO DIALYSIS ACCESS SITE ONE HOUR PRIOR TO DIALYSIS Metoprolol Tartrate (Metoprolol Tartrate) 25 Mg Tab, 25 MG PO BID, (Reported) Pantoprazole Sodium (Pantoprazole Sodium) 40 Mg Tablet., 40 MG PO DAILY, (Reported) Sevelamer Carbonate (Sevelamer Carbonate) 800 Mg Tab, 800 MG PO BID, (Reported) WITH BREAKFAST AND DINNER Umeclidinium [place] (Incruse Ellipta) 62.5 Mcg Blst.w.dev, 1 PUFF INH DAILY, (Reported) Vit B Comp No.3/Folic/C/Biotin (Nephro-Martin Rx Tablet) 1 Tab Tab, 1 TAB PO DAILY, (Reported) Warfarin Sodium (Coumadin) 4 Mg Tablet, 4 MG PO 4XWK, (Reported) MON, WED, FRI, SUN Warfarin Sodium (Warfarin Sodium) 5 Mg Tablet, 5 MG PO 3XW, (Reported) , , SAT Scheduled PRN Albuterol Sulfate (Ventolin Hfa) 108 Mcg/Act Aer, 2 PUFFS INH QID PRN for SHORTNESS OF BREATH, (Reported) Hydroxyzine HCl (Hydroxyzine HCl) 25 Mg Tablet, 25 MG PO BID PRN for ITCHING, (Reported) Nitroglycerin (Nitrostat) 0.4 Mg Subl, 0.4 MG SL NITRO PRN for ANGINA, (Reported) Allergies Coded Allergies: No Known Allergies (Verified , 03/03/17) Past Medical History Medical History End-stage renal disease on dialysis. The SLAP anemia, hypertension, COPD, atrial fibrillation, insulin-dependent diabetes mellitus, taking bradycardia syndrome, morbid obesity, left foot amputation, AV fistula placement, permanent pacemaker placement and hernia repair Surgical History Left foot amputation, AV fistula placement, permanent pacemaker placement, hernia repair Social History * Smoker: Denies Alcohol: Denies Drugs: denies A-FIB/CHADSVASC A-FIB History Current/History of A-Fib/PAF?: Yes Current PO Anticoag Therapy: Yes Review of Systems Constitutional: Denies: Chills, Fever, Malaise, Night Sweats, Weakness, Fatigue, Weight Loss, Lethargy, Other Eyes: Denies: Pain, Vision change, Conjunctivae inflammation, Eyelid inflammation, Redness, Other ENT: Denies: Head Aches, Ear Pain, Dysphagia, Sinus Congestion, Post Nasal Drip, Sore Throat, Epistaxis, Other Symptoms Skin: Denies: Rash, Lesions, Jaundice, Bruising, Itching, Dry, Breakdown, Nail Changes, Other Pulmonary: Denies: Dyspnea, Cough, Pleuritic Chest Pain, Other Symptoms Cardiovascular: Denies: Chest Pain, Palpitations, Orthopnea, Paroxysmal Noc. Dyspnea, Edema, Lt Headedness, Other Symptoms Gastrointestinal: Denies: Nausea, Vomiting, Abdominal Pain, Diarrhea, Constipation, Melena, Hematochezia, Other Symptoms Genitourinary: Denies: Dysuria, Frequency, Incontinence, Hematuria, Retention, Other Symptoms Hematologic: Denies: Bruising, Bleeding Excessively, Petecchia, Purpura, Enlarged Lymph Nodes, Other Hematologic Endocrine: Denies: Polydipsia, Polyphagia, Polyuria, Heat Intolerance, Cold Intolerance, Other Endocrine Sx Musculoskeletal: Denies: Neck Pain, Back Pain, Shoulder Pain, Arm Pain, Hand Pain, Leg Pain, Foot Pain, Joint Pain, Muscle Pain, Spasms, Other Symptoms Neurological: Reports: Other Symptoms (, slurred speech) Psych: Denies: Mood Normal, Anxiety, Depression, Memory Issues, Thoughts of Self Harm, Anger, Thoughts of Harming Other, Other Psych Physical Examination General Exam: Positive: Alert, Cooperative Eye Exam: Positive: PERRLA, Conjunctiva & lids normal ENT Exam: Positive: Atraumatic, Mucous membr. moist/pink Neck Exam: Positive: Supple Chest Exam: Positive: Clear to auscultation, Normal air movement Heart Exam: Positive: Rate Normal, Irregular Rhythm, Normal S1, Normal S2 Abdomen Exam: Positive: Normal bowel sounds, Soft Extremity Exam: Positive: Clubbing Skin Exam: Positive: Nl turgor and temperature Neuro Exam: Positive: Strength at 5/5 X4 ext, Sensation Intact, Other (speech is clear but occasionally he had slurring of speech, ) Psych Exam: Positive: Mental status NL, Memory Intact, Oriented x 3 Vital Signs Vital Signs Date Time Temp Pulse Resp B/P (MAP) Pulse Ox O2 Delivery O2 Flow Rate FiO2 03/01/19 20:31 107/79 (88) 03/01/19 20:29 97 94 03/01/19 18:29 22 03/01/19 16:56 95.7 Laboratory Data Labs 24H Laboratory Tests 2 03/01/19 17:40: Nucleated Red Blood Cells % (auto) 0.3H, Carboxyhemoglobin 3.1H, Anion Gap 8, Glomerular Filtration Rate 9.9L, Calcium Level 7.6L, Total Bilirubin 0.9, Direct Bilirubin 0.6H, Aspartate Amino Transf (AST/SGOT) 28, Alanine Aminotransferase (ALT/SGPT) 26, Alkaline Phosphatase 173H, Ammonia 71H, Total Protein 7.4, Albumin 3.2, Albumin/Globulin Ratio 0.76L CBC/BMP Laboratory Tests 03/01/19 17:40 Problems (1) Speech abnormality Status: Acute Problem Text: 73 years old, obese, -Central African male with past medical history of multiple medical problems including end-stage renal disease on hemodialysis Thursday, Thursday, Thursday, dyslipidemia, hypertension, obstructive sleep apnea on CPAP, atrial fibrillation, tachybradycardia syndrome, insulin- dependent diabetes mellitus, morbid obesity, left foot amputation, AV fistula placement, permanent permanent pacemaker placement and hernia repair was brought in at his 's request, as she noticed increasing slurring and garbling of his his speech. On examination, patient's speech is clear with occasional slurring which as per patient, his old in nature. CT of the head was obtained which was essentially negative. MRI cannot be done as patient has a pacemaker placed in. On further workup. Patient's ammonia level is slightly elevated as patient will be admitted for further treatment and management. Admitted to PCU with the cardiac telemetry as patient is a history of A. fib and tachybradycardia 8 syndrome, status post pacemaker placement air sampling and monitoring Speech therapy evaluation in a.m. MRI cannot be done secondary to pacemaker Carotid Doppler studies Echocardiogram if not done recently Continue home meds DVT prophylaxis, patient is a reddened Coumadin Diet carbohydrate consistent diet Activity with assistance until seen and evaluated by physical therapy (2) Increased ammonia level Status: Acute Problem Text: Etiology is unknown , Lactulose 15 mg by mouth twice a day Levels in a.m. Patient has no evidence of hepatic encephalopathy (3) Diabetes mellitus Status: Chronic Problem Text: Fingerstick blood sugar every before meals and at bedtime with coverage The home meds (4) HTN (hypertension) Status: Chronic Problem Text: Continue home meds (5) ESRD on dialysis Status: Acute Problem Text: Patient received the dialysis Thursday, Thursday, Thursday Nephrology consult was requested from ED Plan / VTE VTE Prophylaxis Ordered?: Yes MARGARET GARBER MD Mar 01, 2019 20:41
[2019-03-01] MEDS ORDERED: GLUCOSE 4 GM CHEW TABLET PO PRN (20:45)
[2019-03-01] MEDS ORDERED: DEXTROSE 50% 50 ML SYRINGE IV PRN (20:45)
[2019-03-01] MEDS ORDERED: GLUCAGON FOR INJ 1 MG VIAL (J1610) SC PRN (20:45)
[2019-03-01] MEDS: HumaLOG INSULIN (NovoLOG) PER UNIT SC SCH (21:00)
[2019-03-01] MEDS: DOCUSATE SODIUM 100 MG CAP PO SCH (21:00)
--- NOTE | 2019-03-01 21:35 | ECGEPIP ---
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
[2019-03-01 22:10] VITALS: BP 115/67
--- NOTE | 2019-03-01 23:32 | REPVR ---
PROCEDURE INFORMATION: Exam: US Duplex Bilateral Extracranial Arteries Exam date and time: 03/01/2019 10:55 PM Clinical history: 73 years old, male; Speech disturbance; Slurred speech; Additional info: Slurred speech, TIA TECHNIQUE: Imaging protocol: Real-time Duplex ultrasound scan of the bilateral carotid and vertebral arteries combining turner scale, color Doppler and spectral waveform analysis. Bilateral exam. COMPARISON: CT Head without contrast 03/01/2019 5:31 PM FINDINGS: This examination is nondiagnostic secondary to technical factors. The patient's body habitus with a short neck and a high carotid bifurcation high in the neck prevented the technologist to get accurate flow above the carotid bulb with any confidence. There was patient movement and coughing during the entire examination as per the technologist. Right common carotid artery: The right CCA peak systolic velocity is 41.1 cm/s. Right internal carotid artery: Right ICA velocities were not able to be confidently obtained. The peak right ICA velocity that was able to be obtained is 36.0 cm/s. Right ICA/CCA ratio: The right ICA/CCA ratio is 0.88. Right external carotid artery: Not visualized. Right vertebral artery: Not visualized. Left common carotid artery: The left CCA peak systolic velocity is 47.8 cm/s. Left internal carotid artery: Left ICA velocities were not able to be confidently obtained. The peak left ICA velocity that was able to be obtained is 20.6 cm/s. Left ICA/CCA ratio: The left ICA/CCA ratio is 0.43. Left external carotid artery: Not visualized. Left vertebral artery: Not visualized. IMPRESSION: Nondiagnostic examination secondary to technical factors. Velocities within the right and left internal carotid arteries were not able to be confidently obtained. COMMENT: Carotid Stenosis Reference using SRU criteria: Mild: less than 50% stenosis. ICA PSV is less than 125 cm/second and plaque or intimal thickening is visible. Moderate: 50-69% stenosis. ICA PSV is 125 to 230 cm/second and plaque is visible. Severe: 70-94% stenosis. ICA PSV is more than 230 cm/second and visible plaque and lumen narrowing are seen. Near occlusion: 95-99% stenosis. ICA PSV is variable and significant plaque and luminal narrowing are seen. Occluded: 100% stenosis. No flow identified. Electronically signed by: Negro Vizcaino On 03/01/2019 23:31:51 PM
[2019-03-01] MEDS: LACTULOSE 20 GM/30 ML SYRUP UD PO SCH (23:35)
[2019-03-02] MEDS ORDERED: ALBUTEROL 90 MCG/ACT 8GM HFA INHALER INH PRN (01:45)
[2019-03-02] MEDS ORDERED: hydrOXYzine 25 MG TAB PO PRN (01:45)
[2019-03-02] MEDS ORDERED: NITROGLYCERIN 0.4 MG SUBL TABLET SL PRN (01:45)
[2019-03-02 04:00] VITALS: BP 108/66
[2019-03-02 05:37] LABS: HEMATOCRIT 34.5 % (42.0-52.0); HEMOGLOBIN 11.1 g/dl (13.5-17.5); MEAN CORPUSCULAR HEMOGLOBIN 33.7 pg (27.0-33.0); MEAN CORPUSCULAR HGB CONC 32.2 g/dl (32.0-36.5); MEAN CORPUSCULAR VOLUME 104.9 fl (80.0-96.0); PLATELET COUNT, AUTOMATED 116 10^3/uL (150-450); RED BLOOD COUNT 3.29 10^6/uL (4.30-6.10); WHITE BLOOD COUNT 7.7 10^3/uL (4.0-10.0)
[2019-03-02 05:46] LABS: INR 1.6; PROTHROMBIN TIME 18.8 SECONDS (11.8-14.0)
[2019-03-02 06:11] LABS: ALBUMIN 3.1 GM/DL (3.2-5.2); BILIRUBIN,TOTAL 1.1 MG/DL (0.2-1.0); CALCIUM LEVEL 7.6 MG/DL (8.8-10.2); CREATININE FOR GFR 7.93 MG/DL (0.70-1.30); GLOMERULAR FILTRATION RATE 8.7 (>42); MAGNESIUM LEVEL 2.4 MG/DL (1.8-2.4); POTASSIUM SERUM 4.5 MEQ/L (3.5-5.1); TOTAL PROTEIN 7.4 GM/DL (6.4-8.2)
[2019-03-02 08:00] VITALS: BP 104/57
[2019-03-02] MEDS: OYSTER SHELL CALCIUM 500 MG TAB PO SCH (08:09)
[2019-03-02] MEDS: DOCUSATE SODIUM 100 MG CAP PO SCH ×2 (08:09→20:13)
[2019-03-02] MEDS: CYANOCOBALAMIN 500 MCG TAB PO SCH (08:09)
[2019-03-02] MEDS: NEPHRO-VIT TAB (NEPHROCAPS) PO SCH (08:09)
[2019-03-02] MEDS: ASPIRIN 81 MG ENTERIC TAB PO SCH (08:09)
[2019-03-02] MEDS: (RENVELA) SEVELAMER **CARBONate** 800 MG TAB PO SCH ×2 (08:09→20:13)
[2019-03-02] MEDS: METOPROLOL TART 25 MG TABLET PO SCH ×2 (08:09→20:13)
[2019-03-02] MEDS: PANTOPRAZOLE 40MG TAB (PROTONIX) PO SCH (08:09)
[2019-03-02] MEDS: VITAMIN D 1,000 INTERNATIONAL UNITS TABLET PO SCH (08:09)
[2019-03-02] MEDS: LACTULOSE 20 GM/30 ML SYRUP UD PO SCH ×2 (08:10→20:13)
[2019-03-02] MEDS: HumaLOG INSULIN (NovoLOG) PER UNIT SC SCH ×4 (08:10→20:02)
[2019-03-02] MEDS: EMLA CREAM 5GM (LIDOCAINE/PRILOCAINE) TOP SCH (09:17)
--- NOTE | 2019-03-02 10:15 | REP ---
Two-view chest: 03/02/2019. Indication: Dyspnea. Comparison: 01/09/2019. Findings: Vascular congestion has improved. Cardiac silhouette remains enlarged. No significant pleural fluid is present. There is no evidence of pneumothorax. Double lumen right IJ catheter is unchanged in position. Left sided pacing device is unchanged as well. Impression: No acute changes detected compared to 01/09/2019. Electronically Signed by José Miguel Faustin DO 03/02/2019 10:06 A
[2019-03-02] MEDS ORDERED: HEPARIN 1,000 UNITS/ML 10ML VIAL (FOR RADIOLOGY& DIALYSIS ONLY) XX ONE (10:45)
--- NOTE | 2019-03-02 11:57 | IPNPDOC ---
Text Note Date of Service The patient was seen on 03/02/19. NOTE Patient seen at bedside today and reported no acute changes to his condition. Patient confirms that his thought he was having slurred and garbled speech prior to admission yesterday however he does again state that he did not notice any speech deficits. He denies any recent altered mental status, depression, suicidal or homicidal ideations. Patient reports productive cough with yellow tinged sputum and he believes he has pneumonia. He also stated that he wishes to be tested for TB, patient reports no hemoptysis, night sweats, recent weight loss. Patient denies IV drug usage, recent travel, recent sick contacts. He has apparent pacemaker implanted and denies any feelings of an irregular heartbeat, palpitations, chest pain. Patient claims to be shortly out of breath upon exerting himself, although he states he is not short of breath at rest in his hospital bed. PHYSICAL EXAM: General: Patient is a obese male laying in his bed in mild di stress. Speech is somewhat garbled and difficult to interpret. He is coherent, responsive to questioning, it appears to have unaltered mental status. HEENT: Right lens has noticeable opacification. 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 Left pupil round and react to light and accommodation. No scleral icterus noted. Poor oral hygiene noted. Trachea midline. Lungs: Moderate expiratory wheezing heard bilaterally. Patient's respiratory rate is within normal limits . Patient is not state he is out of breath. Remainder of exam unremarkable. Heart: Pacemaker implanted. Regular rhythm and normal rate noted. No murmurs, rubs, or knocks noted. No muffled heart sounds. Abdomen: Abdomen appears distended and firm making palpation of organs difficult. Normal abdominal sounds noted in all 4 quadrants. No guarding or rebound tenderness. No Jaundice noted. No pain or tenderness to palpation not ed. Extremities: +1 edema noted bilaterally. Patient seems to have venous stasis with numerous small excoriations noted bilaterally in his LE. No rashes, wounds, weeping sores noted. No significant muscle atrophy noted. Neuro: No focal deficits noted noted. Patient alert and aware 3. No asterixis was found. Skin: No rashes, bruising, ulcerations noted. No jaundice. IMAGING: Head CT 03/01/2019: No acute intracranial abnormality. Bilateral mastoid effusions Carotid Doppler ultrasound 03/01/2019: Nondiagnostic due to technical issues during the examination such as patient's body habitus as well as superior carotid bifurcation. CXR 03/02/2019: No acute changes detected compared to 01/09/2019. Liver US 03/02/2019: 1. Findings consistent with hepatic cirrhosis with bidirectional portal flow. There is trace perihepatic fluid. 2. Echogenic right kidney consistent with medical renal disease. 3. Otherwise negative right upper quadrant sonogram. 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 Patient placed under airborne precautions -Chest x-ray has been performed and was negative for acute changes since 01/09/2019. There was no indication of active TB infection noted -Quantiferon gold and PPD orders have been placed and are pending #Speech abnormality -Patient admitted due to patient's 's concerns over his speech being slurred and more garbled than usual. Patient denies any recent worsening of his vocal ability. Does stutter and is a difficult time pronouncing speech at baseline. CT scan was obtained and was negative. MRI cannot be obtained as patient has pacemaker in place. Ammonia found to be elevated at 71 upon admission and was found to increase to 87 a few hours later. Will continue to trend monitor for improvement. -Continue Lactulose syrup 15 mL PO BID -Continue telemetry as patient has history of A. fib and tachybradycardia syndrome. Patient does have a pacemaker in place. Speech therapy evaluation this morning. Carotid Doppler was attempted but could not be definitive due to patient's body habitus and high carotid bifurcation as well as patient's cough during administration of ultrasound. EKG shows A. fib, nonspecific T-wave abnormality, moderate intraventricular conduction delay. EKG is similar to past EKG on 02/08/2019. Patient is currently anticoagulated and is rate controlled adequately. INR continues to be subtherapeutic at 1.51 but will should increase shortly due to increased Warfarin dosage. Warfarin dosage will be increased to 8 mg #Hyperammonemia. Ammonia is elevated at 87 and was 71 upon admission -Continue lactulose syrup to 15 mL PO QD -Patient does not demonstrate asterixis, jaundice, altered mental status, or any other sign of hepatic failure or encephalopathy. #Carboxyhemoglobinemia: -Patient's carboxyhemoglobin measured at 3.1 on admission -Oxygen therapy was initiated upon admission -Per patient's this is likely due to Fails leaving the gas stove on and falling asleep on the couch -Patient denies any depression or suicidal ideation #A. fib: -Patient has history of A. fib and upon observation EKG is currently in A. fib -Patient is adequately rate controlled on metoprolol 25 mg -Increased warfarin dosage to 8 mg -Continue home meds #ESRD: -Patient has a past medical history significant for ESRD. He gets dialysis Thursday, Thursday, Thursday. -BUN 69 currently, which is increased from 59 yesterday on admission -Creatinine is 7.93 which is increased from 7.13 on admission yesterday #Diabetes mellitus: -PMHx significant for diabetes mellitus type 2. -Continue home meds. Consistent carb diet. fingersticks before meals and at bedtime. Glucose appears well controlled at approximately 100 mg/dL Hypoglycemic protocol. #HTN (hypertension): -Patient's blood pressure appears to be well controlled under 120 -Continue home medications. #Possible Hx of Gastric/duodenal ulcer -Patient is currently taking Pantoprazole Sodium 40 mg QD PO -No Hx of ulcers or GERD in his previous notes #Morbid Obesity: -BMI 40.5 -Patient would likely benefit from outpatient weight control effort #DVT prophylaxis -Increased warfarin 8 mg I saw and evaluated the patient. I agree with the findings and plan of care as documented in the above note VS,Jluis, I+O VS, Jluis, I+O Laboratory Tests 03/01/19 17:40 03/02/19 05:24 Vital Signs Date Time Temp Pulse Resp B/P (MAP) Pulse Ox O2 Delivery O2 Flow Rate FiO2 03/02/19 08:09 87 111/60 03/02/19 08:00 97.3 16 95 I&O- Last 24 Hours up to 6 AM 03/02/19 06:00 Intake Total 0 ml Output Total 0 ml Balance 0 ml SUELLEN SALAZAR S-3 Mar 02, 2019 11:44 ROSSY ERNANDEZ MD Mar 03, 2019 13:47
[2019-03-02 12:00] VITALS: BP 104/61
[2019-03-02] MEDS ORDERED: HEPARIN 1,000 UNITS/ML 10ML VIAL (FOR RADIOLOGY& DIALYSIS ONLY) IV ONE (12:00)
--- NOTE | 2019-03-02 13:43 | CR.PDOC ---
General Date of Consultation: Mar 02, 2019 Referring Provider: MARGARET GARBER MD Attending Physician: JOSE JAVED MD Consultation REASON FOR CONSULTATION/CHIEF COMPLAINT: Management of HD HISTORY OF PRESENT ILLNESS: Mr. Irwin Lobo is a 73 YO M with history of ESRD on HD (M,W,F) s/p Left transmetatarsal amputation who presented to the ED with slurring of speech and disorientation. The patient's reports he was doing well and attending dialysis without any issues but she noticed last night that he "did not seem himself" and was not making any sense. He was confused and disoriented. In the ED and admission note, the patient had a normal physical exam and it appeared that his slurring of speech and confusion had resolved. He underwent a head CT which was normal. Nephrology was consulted for management of his HD. Of note, the patient's reported to staff that she is currently undergoing treatment for TB with Rifampin. Given that she is in the room with the patient and the status of her TB is unknown, the patient will be tested for TB and placed in a negative pressure room for precaution. ALLERGIES: Please see below. HOME MEDICATIONS: Please see below. PAST MEDICAL HISTORY: 1. Multiple wound infections (Most recently he has had a right upper extremity u lcer and abscess). 2. Chronic kidney disease stage V on hemodialysis 3. Kei-bwuhslg-lmhvchorb diabetes mellitus, 4. Obstructive sleep apnea on home bipap 5. Atrial fibrillation on Coumadin, 6. Essential hypertension, 7. Dyslipidemia, 8. Coronary artery disease, 9. Morbid obesity, 10. Peripheral vascular disease PAST SURGICAL HISTORY: 1. Fistula placement 2. Excisional debridement of right upper extremity ulcer and abscess 3. Left transmetatarsal amputation 4. Dialysis catheter placement 5. Pacemaker placement 6. Hernia repair FAMILY HISTORY: noncontributory SOCIAL HISTORY: Denies smoking, drinking REVIEW OF SYSTEMS: CONSTITUTIONAL: No complaints HEENT: denies vision changes, no sinus problems, denies any trouble swallowing CARDIOVASCULAR: No palpitations reported RESPIRATORY: Denies shortness of breath GENITOURINARY: No dysuria MUSCULOSKELETAL: Denies any joint/muscle pain GASTROINTESTINAL: Reports some nausea and diarrhea SKIN: No new rashes or lesions NEUROLOGICAL: No loss of sensation PSYCHIATRIC: Reports normal mood/affect ENDOCRINE: No hot/cold intolerance HEMATOLOGIC/LYMPHATIC: No easy bruising, no lumps/bumps ALLERGIC/IMMUNOLOGIC: No sinus symptoms All other ROS is negative PHYSICAL EXAMINATION: VITAL SIGNS: Please see below. GENERAL APPEARANCE: Laying in bed, appears stated age, no acute distress HEENT: EOMI, PERRLA, neck is supple with no thyromegaly or lymphadenopathy, RIJ in place RESPIRATORY: Crackles throughout both lung mello up to the middle lobes bilaterally CARDIOVASCULAR: JVD is elevated , RRR without murmurs/rubs/gallops ABDOMEN: Soft, obese, nontender to palpation with healed transverse scar over R and L upper quadrants, no masses/organomegaly EXTREMITIES: Left transmetatarsal amputation; no clubbing or cyanosis noted NEUROLOGICAL: No obvious focal deficits PSYCHIATRIC: normal mood/affect LABORATORY DATA: Please see below. ASSESSMENT/PLAN: Irwin Lobo is a 73 YO M with history of ESRD on HD who presented with slurred speech and confusion found to have elevated ammonium level 1. ESRD: Patient will be dialyzed per his usual schedule today -Patient and both report he has been going to his scheduled dialysis appointments as scheduled. -Continue Renvela, Vitamin D 2. HTN: -BP within normal limits. Will continue to monitor 3. Atrial fibrillation: -Continue Metoprolol and Coumadin 4. DM2 on insulin -Continue insulin regimen as prescribed. 5. Exposure to TB infection: The patient's is currently undergoing treatment for TB. Unknown TB status. Will isolate patient as a precaution at this time. -Quantiferon gold, Sputum AFB, PPD ordered -CXR normal 6. Elevated Ammonia level, confusion and diarrhea: The patient did not seem confused on exam today. He has no documented history of liver disease at this time. -Continue lactulose -Liver US ordered to r/o cirrhosis Dispo: Pending HD today and improvement in clinical status. Vital Signs/I&O Vital Signs Date Time Temp Pulse Resp B/P (MAP) Pulse Ox O2 Delivery O2 Flow Rate FiO2 03/02/19 08:09 87 111/60 03/02/19 08:00 97.3 16 95 I&O- Last 24 Hours up to 6 AM 03/02/19 06:00 Intake Total 0 ml Output Total 0 ml Balance 0 ml Laboratory Data Labs 24H Laboratory Tests 2 03/01/19 17:40: Nucleated Red Blood Cells % (auto) 0.3H, Carboxyhemoglobin 3.1H, Anion Gap 8, Glomerular Filtration Rate 9.9L, Calcium Level 7.6L, Total Bilirubin 0.9, Direct Bilirubin 0.6H, Aspartate Amino Transf (AST/SGOT) 28, Alanine Aminotransferase (ALT/SGPT) 26, Alkaline Phosphatase 173H, Ammonia 71H, Total Protein 7.4, Albumin 3.2, Albumin/Globulin Ratio 0.76L 03/01/19 23:28: Bedside Glucose (Misc Panel) 88 03/02/19 05:24: Nucleated Red Blood Cells % (auto) 0.0, Anion Gap 8, Glomerular Filtration Rate 8.7L, Calcium Level 7.6L, Total Bilirubin 1.1H, Aspartate Amino Transf (AST/SGOT) 27, Alanine Aminotransferase (ALT/SGPT) 22, Alkaline Phosphatase 177H, Ammonia 87H, Total Protein 7.4, Albumin 3.1L, Albumin/Globulin Ratio 0.72L, Prothrombin Time 18.8H, Prothromb Time International Ratio 1.60, Magnesium Level 2.4 03/02/19 11:47: 03/02/19 12:39: Bedside Glucose (Misc Panel) 88 CBC/BMP Laboratory Tests 03/01/19 17:40 03/02/19 05:24 Microbiology Microbiology 03/02/19 Acid Fast Stain, Received Pending 03/02/19 Mycobacterial Culture, Received Pending Allergies Coded Allergies: No Known Allergies (Verified , 03/03/17) Home Medications Scheduled Aspirin (Aspirin EC) 81 Mg Tab, 81 MG PO DAILY, (Reported) Atorvastatin Calcium (Atorvastatin Calcium) 20 Mg Tab, 20 MG PO DAILY, (Reported) AT NOON Calcium Carbonate (Calcium Carbonate) 500 Mg Tablet, 500 MG PO DAILY, (Reported) Cholecalciferol (Vitamin D3) (Vitamin D3) 1,000 Unit Tab, 1,000 UNITS PO DAILY, (Reported) Cyanocobalamin (Vitamin B-12) (Vitamin B-12) 500 Mcg Tab, 1,000 MCG PO DAILY, (Reported) Gabapentin (Gabapentin) 100 Mg Cap, 100 MG PO DAILY, (Reported) AT NOON Insulin Aspart (Novolog Flexpen) 100 Unit/Ml Inj, 1 DOSE SC DAILY, (Reported) PER SLIDING SCALE WITH BREAKFAST Lidocaine/Prilocaine (Lidocaine-Prilocaine Cream) 2.5%/2.5% Cream..g., 1 APLCT TOP ASDIRECTED, (Reported) APPLY TO DIALYSIS ACCESS SITE ONE HOUR PRIOR TO DIALYSIS THU, THU, FRI Metoprolol Tartrate (Metoprolol Tartrate) 25 Mg Tab, 25 MG PO BID, (Reported) Pantoprazole Sodium (Pantoprazole Sodium) 40 Mg Tablet.dr, 40 MG PO DAILY, (Reported) Sevelamer Carbonate (Sevelamer Carbonate) 800 Mg Tab, 800 MG PO BID, (Reported) WITH BREAKFAST AND DINNER Umeclidinium [place] (Incruse Ellipta) 62.5 Mcg Blst.w.dev, 1 PUFF INH DAILY, (Reported) Vit B Comp No.3/Folic/C/Biotin (Nephro-Martin Rx Tablet) 1 Tab Tab, 1 TAB PO DAILY, (Reported) Warfarin Sodium (Coumadin) 4 Mg Tablet, 4 MG PO 4XWK, (Reported) THU, THU, THU, SUN Warfarin Sodium (Warfarin Sodium) 5 Mg Tablet, 5 MG PO 3XW, (Reported) , , SAT Scheduled PRN Albuterol Sulfate (Ventolin Hfa) 108 Mcg/Act Aer, 2 PUFFS INH QID PRN for SHORTNESS OF BREATH, (Reported) Hydroxyzine HCl (Hydroxyzine HCl) 25 Mg Tablet, 25 MG PO BID PRN for ITCHING, (Reported) Nitroglycerin (Nitrostat) 0.4 Mg Subl, 0.4 MG SL NITRO PRN for ANGINA, (Reported) GME ATTESTATION GME ATTESTATION My faculty preceptor for this patient encounter was physically present during the encounter and was fully available. All aspects of the patient interview, examination, medical decision making process, and medical care plan development were reviewed and approved by the faculty preceptor. The faculty preceptor is aware and concurs with the plan as stated in the body of this note and will attest to such by his/her cosignature. ATTENDING NOTE Pt was seen and examined with the resident and I agree with the assessment with following additions or changes. Assessment: ESRD Hepatic encephalopathy HTN COPD Exposure to TB Plan: HD as per MWF schedule. UF goal ~4L Isolation until TB is ruled out. USG to r/o cirrhosis Lactulose and rifaximin for encephalopathy. Cont home med. MATTHEW HUGGINS MD Mar 02, 2019 13:43 JOSE JAVED MD Mar 04, 2019 12:20
[2019-03-02] MEDS ORDERED: TUBERCULIN PPD 5 UNITS/0.1 ML ID ONE (14:00)
[2019-03-02] MEDS ORDERED: WARFARIN SOD 4 MG TAB PO SCH (17:00)
[2019-03-02] MEDS ORDERED: WARFARIN SOD 4 MG TAB PO ONE (17:00)
[2019-03-02 17:50] VITALS: BP 119/75
[2019-03-02] MEDS: GABAPENTIN 100 MG CAP PO SCH (18:18)
[2019-03-02] MEDS: ATORVASTATIN 20 MG TAB PO SCH (18:18)
[2019-03-02 22:00] VITALS: BP 122/78
--- NOTE | 2019-03-03 02:18 | REPVR ---
PROCEDURE INFORMATION: Exam: US Abdomen Limited, Right Upper Quadrant Exam date and time: 03/02/2019 7:43 PM Clinical history: 73 years old, male; Other: R/O cirrhosis TECHNIQUE: Imaging protocol: Real-time ultrasound of the abdomen with image documentation. Examination was focused on the right upper quadrant. COMPARISON: No relevant prior studies available. FINDINGS: Liver: The liver demonstrates a nodular or lobular surface and demonstrates slightly increased echogenicity. Gallbladder: The gallbladder demonstrates no wall thickening measuring 3 mm and no stones. Common bile duct: The common bile duct measures 2-3 mm. Pancreas: The pancreas is not seen due to gas shadowing. Right kidney: The right kidney is echogenic and measures 12.0 cm. No hydronephrosis. There is a cyst measuring 9 x 6 x 11 mm. Portal venous: The main portal vein measures 15 mm and demonstrates bidirectional flow. Intraperitoneal space: Trace perihepatic fluid. IMPRESSION: 1. Findings consistent with hepatic cirrhosis with bidirectional portal flow. There is trace perihepatic fluid. 2. Echogenic right kidney consistent with medical renal disease. 3. Otherwise negative right upper quadrant sonogram. COMMENT: Consistent with the [employer]'s Incidental Findings Committee Report (J Am Gaurang Radiol 2010): Unless the patient's specific circumstances suggest otherwise, any liver lesion 0.5 cm or less, any cystic kidney lesion less than 1.0 cm, and/or any adrenal lesion 1.0 cm or less not otherwise characterized in this report as possessing suspicious or indeterminate imaging features is/are highly likely to be benign and do not require follow-up imaging or biopsy. Electronically signed by: Zeke Reyes On 03/03/2019 02:18:29 AM
[2019-03-03 06:00] VITALS: BP 105/73
[2019-03-03 08:21] LABS: HEMATOCRIT 36.4 % (42.0-52.0); HEMOGLOBIN 11.8 g/dl (13.5-17.5); MEAN CORPUSCULAR HEMOGLOBIN 34.2 pg (27.0-33.0); MEAN CORPUSCULAR HGB CONC 32.4 g/dl (32.0-36.5); MEAN CORPUSCULAR VOLUME 105.5 fl (80.0-96.0); PLATELET COUNT, AUTOMATED 108 10^3/uL (150-450); RED BLOOD COUNT 3.45 10^6/uL (4.30-6.10); WHITE BLOOD COUNT 6.9 10^3/uL (4.0-10.0)
[2019-03-03 08:38] LABS: INR 1.51; PROTHROMBIN TIME 17.9 SECONDS (11.8-14.0)
[2019-03-03 08:53] LABS: ALBUMIN 3.2 GM/DL (3.2-5.2); BILIRUBIN,TOTAL 1.2 MG/DL (0.2-1.0); CREATININE FOR GFR 6.54 MG/DL (0.70-1.30); GLOMERULAR FILTRATION RATE 10.9 (>42); POTASSIUM SERUM 4.1 MEQ/L (3.5-5.1); TOTAL PROTEIN 7.9 GM/DL (6.4-8.2)
[2019-03-03] MEDS ORDERED: WARFARIN SOD 4 MG TAB PO ONE ×2 (09:00→17:00)
[2019-03-03] MEDS: (RENVELA) SEVELAMER **CARBONate** 800 MG TAB PO SCH ×2 (09:37→18:23)
[2019-03-03] MEDS: LACTULOSE 20 GM/30 ML SYRUP UD PO SCH ×4 (09:37→21:13)
[2019-03-03] MEDS: HumaLOG INSULIN (NovoLOG) PER UNIT SC SCH ×4 (09:37→21:00)
[2019-03-03] MEDS: NEPHRO-VIT TAB (NEPHROCAPS) PO SCH (09:37)
[2019-03-03] MEDS: ASPIRIN 81 MG ENTERIC TAB PO SCH (09:38)
[2019-03-03] MEDS: VITAMIN D 1,000 INTERNATIONAL UNITS TABLET PO SCH (09:38)
[2019-03-03] MEDS: DOCUSATE SODIUM 100 MG CAP PO SCH ×2 (09:38→21:13)
[2019-03-03] MEDS: CYANOCOBALAMIN 500 MCG TAB PO SCH (09:38)
[2019-03-03] MEDS: PANTOPRAZOLE 40MG TAB (PROTONIX) PO SCH (09:39)
[2019-03-03] MEDS: OYSTER SHELL CALCIUM 500 MG TAB PO SCH (09:39)
[2019-03-03] MEDS: METOPROLOL TART 25 MG TABLET PO SCH ×2 (09:41→21:00)
--- NOTE | 2019-03-03 09:58 | IPNPDOC ---
Text Note Date of Service The patient was seen on 03/03/19. NOTE Mr. Lobo was seen at bedside this morning and reported no acute changes to his condition last night. He states that his cough has not changed and that he is still producing a yellow-tinged sputum. He denies any fever or chills over night. He states he had a bowel movement last night as well as this morning. He denies any changes to his mentation or speech overnight. He denies chest pain, palpitations, SOB, or abdominal pain. Physical Exam: General: Patient is a obese man sitting in his hospital bed. He appears to be in no distress but does have a occasional cough. HEENT: Right lens has noticeable opacification. 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 Left pupil round and react to light and accommodation. No scleral icterus noted. Poor oral hygiene noted. Trachea midline. Lungs: Lungs CTA B/L. Patient denies SOB. He does have a occasional cough which he states produces yellow-tinged sputum. Heart: Pacemaker implanted. Regular rhythm and normal rate noted. No murmurs, rubs, or knocks noted. No muffled heart sounds. Abdomen: Abdomen appears distended and firm making palpation of organs difficult. Normal abdominal sounds noted in all 4 quadrants. No guarding or rebound tenderness. No Jaundice noted. No pain or tenderness to palpation noted. Extremities: +1 edema noted bilaterally. Patient seems to have venous stasis with numerous small excoriations noted bilaterally in his LE. No rashes, wounds, weeping sores noted. No significant muscle atrophy noted. Neuro: No focal deficits noted noted. Patient alert and aware 3. No asterixis was found. Skin: No rashes, bruising, ulcerations noted. No jaundice. MAGING: Head CT 03/01/2019: No acute intracranial abnormality. Bilateral mastoid effusions Carotid Doppler ultrasound 03/01/2019: Nondiagnostic due to technical issues during the examination such as patient's body habitus as well as superior carotid bifurcation. CXR 03/02/2019: No acute changes detected compared to 01/09/2019. Liver US 03/02/2019: 1. Findings consistent with hepatic cirrhosis with bidirectional portal flow. There is trace perihepatic fluid. 2. Echogenic right kidney consistent with medical renal disease. 3. Otherwise negative right upper quadrant sonogram. 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 Patient placed under airborne precautions -Chest x-ray has been performed and was negative for acute changes since 01/09/2019. There was no indication of active TB infection noted -Quantiferon gold and PPD orders have been placed and are pending #Speech abnormality -Patient admitted due to patient's 's concerns over his speech being slurred and more garbled than usual. Patient denies any recent worsening of his vocal ability. Does stutter and is a difficult time pronouncing speech at baseline. CT scan was obtained and was negative. MRI cannot be obtained as patient has pacemaker in place. Ammonia found to be elevated at 71 upon admission and was found to increase to 87 a few hours later. Will continue to trend monitor for improvement. -Continue Lactulose syrup 15 mL PO BID -Continue telemetry as patient has history of A. fib and tachybradycardia syndro me. Patient does have a pacemaker in place. Speech therapy evaluation this morning. Carotid Doppler was attempted but could not be definitive due to patient's body habitus and high carotid bifurcation as well as patient's cough during administration of ultrasound. EKG shows A. fib, nonspecific T-wave abnormality, moderate intraventricular conduction delay. EKG is similar to past EKG on 02/08/2019. Patient is currently anticoagulated and is rate controlled adequately. INR continues to be subthe rapeutic at 1.51 but will should increase shortly due to increased Warfarin dosage. Warfarin dosage will be increased to 8 mg #Hyperammonemia. Ammonia is increased from yesterday at 106. -Increase lactulose syrup to 15 mL PO Q6H and titrate until patient 4-6 BM/day -Patient does not demonstrate asterixis, jaundice, altered mental status, or any other sign of hepatic failure or encephalopathy. #Carboxyhemoglobinemia: -Patient's carboxyhemoglobin measured at 3.1 on admission -Oxygen therapy was initiated upon admission -Per patient's this is likely due to Fails leaving the gas stove on and falling asleep on the couch -Patient denies any depression or suicidal ideation #Elevated Alkaline Phosphatase: -Patient has consistently elevated alkaline phosphatase readings of 177 and 190 on 03/02 and 03/03 respectively -Possibly due to cirrhosis as noted on liver US -Patient does have elevated Bilirubin at 1.2 possibly indicative of mild bile obstruction which woud help explain his increased ALP -Patient has no history of bone disease #A. fib: -Patient has history of A. fib and upon observation EKG is currently in A. fib -Patient is adequately rate controlled on metoprolol 25 mg -Increased warfarin dosage to 8 mg -Continue home meds #ESRD: -Patient has a past medical history significant for ESRD. He gets dialysis Thursday, Thursday, Thursday. -BUN 69 currently, which is increased from 59 yesterday on admission -Creatinine is 7.93 which is increased from 7.13 on admission yesterday #Diabetes mellitus: -PMHx significant for diabetes mellitus type 2. -Continue home meds. Consistent carb diet. fingersticks before meals and at bedtime. Glucose appears well controlled at approximately 100 mg/dL Hypoglycemic protocol. #HTN (hypertension): -Patient's blood pressure appears to be well controlled under 120 -Continue home medications. #Possible Hx of Gastric/duodenal ulcer -Patient is currently taking Pantoprazole Sodium 40 mg QD PO -No Hx of ulcers or GERD in his previous notes #Morbid Obesity: -BMI 40.5 -Patient would likely benefit from outpatient weight control effort #DVT prophylaxis -Increased warfarin 8 mg I saw and evaluated the patient. I agree with the findings and plan of care as documented in the above note VS,Jluis, I+O VS, Jluis, I+O Laboratory Tests 03/03/19 07:50 Vital Signs Date Time Temp Pulse Resp B/P (MAP) Pulse Ox O2 Delivery O2 Flow Rate FiO2 03/03/19 06:00 96.9 78 18 105/73 (84) 98 I&O- Last 24 Hours up to 6 AM 03/03/19 06:00 Intake Total 1120 ml Output Total 4200 ml Balance -3080 ml SUELLEN SALAZAR OMS-3 Mar 03, 2019 09:58 ROSSY ERNANDEZ MD Mar 03, 2019 13:47
--- NOTE | 2019-03-03 10:58 | IPNPDOC ---
Date Seen The patient was seen on 03/03/19. Progress Note SUBJECTIVE: Patient was seen and examined at the bedside this morning. He is currently in a negative pressure room for TB precautions. He is still having some diarrhea but otherwise feels well. He had dialysis yesterday with 4000cc removed. He tolerated it well. Otherwise, no major issues or complaints. OBJECTIVE PHYSICAL EXAMINATION: VITAL SIGNS: Please see below. GENERAL APPEARANCE: Sitting on the edge of the bed, appears stated age, no acute distress HEENT: EOMI, PERRLA, neck is supple with no thyromegaly or lymphadenopathy, RIJ in place RESPIRATORY: Clear to auscultation bilaterally CARDIOVASCULAR: JVD is somewhat elevated, RRR without murmurs/rubs/gallops ABDOMEN: Soft, obese, nontender to palpation, no masses/organomegaly EXTREMITIES: Left transmetatarsal amputation; Some trace edema in lower extremities bilaterally NEUROLOGICAL: No obvious focal deficits PSYCHIATRIC: normal mood/affect LABORATORY DATA: Please see below. ASSESSMENT/PLAN: Irwin Lobo is a 73 YO M with history of ESRD on HD who presented with slurred speech and confusion found to have elevated ammonium level and cirrhosis 1. ESRD: Patient will be dialyzed per his usual schedule tomorrow -Patient has reportedly been compliant with dialysis -Electrolytes WNL today -Continue Renvela, Vitamin D 2. HTN: -BP within normal limits. Will continue to monitor 3. Atrial fibrillation: -Continue Metoprolol and Coumadin 4. DM2 on insulin -Continue insulin regimen as prescribed. 5. Exposure to TB infection: The patient's is currently undergoing treatment for TB. Unknown TB status. Will isolate patient as a precaution at this time. -Quantiferon gold, Sputum AFB, PPD ordered and pending -CXR normal 6. Hepatic encephalopathy: Confusion has resolved. -Continue lactulose -Added Rifaximin 400 PO BID -Liver US demonstrated cirrhosis. Unknown if 2/2 alcohol. Will need to get better history. Dispo: Pending clinical improvement. Will get HD tomorrow morning. VS, I&O, 24H, Fishbone Vital Signs/I&O Vital Signs Date Time Temp Pulse Resp B/P (MAP) Pulse Ox O2 Delivery O2 Flow Rate FiO2 03/03/19 09:41 93 105/88 03/03/19 06:00 96.9 18 98 I&O- Last 24 Hours up to 6 AM 03/03/19 06:00 Intake Total 1120 ml Output Total 4200 ml Balance -3080 ml Laboratory Data 24H LABS Laboratory Tests 2 03/02/19 11:47: 03/02/19 12:39: Bedside Glucose (Misc Panel) 88 03/02/19 18:14: Bedside Glucose (Misc Panel) 80L 03/02/19 19:59: Bedside Glucose (Misc Panel) 78L 03/03/19 06:27: Bedside Glucose (Misc Panel) 126H 03/03/19 07:50: Nucleated Red Blood Cells % (auto) 0.0, Prothrombin Time 17.9H, Prothromb Time International Ratio 1.51, Anion Gap 8, Glomerular Filtration Rate 10.9L, Calcium Level 8.0L, Total Bilirubin 1.2H, Aspartate Amino Transf (AST/SGOT) 25, Alanine Aminotransferase (ALT/SGPT) 22, Alkaline Phosphatase 190H, Ammonia 106H, Total Protein 7.9, Albumin 3.2, Albumin/Globulin Ratio 0.68L CBC/BMP Laboratory Tests 03/03/19 07:50 Microbiology Microbiology 03/02/19 Acid Fast Stain - Final, Resulted 03/02/19 Mycobacterial Culture, Resulted Pending GME ATTESTATION GME ATTESTATION My faculty preceptor for this patient encounter was physically present during the encounter and was fully available. All aspects of the patient interview, examination, medical decision making process, and medical care plan development were reviewed and approved by the faculty preceptor. The faculty preceptor is aware and concurs with the plan as stated in the body of this note and will attest to such by his/her cosignature. MATTHEW HUGGINS MD Mar 03, 2019 10:58 JOSE JAVED MD Mar 04, 2019 12:23
[2019-03-03] MEDS: ATORVASTATIN 20 MG TAB PO SCH (11:44)
[2019-03-03] MEDS: GABAPENTIN 100 MG CAP PO SCH (11:44)
[2019-03-03 14:00] VITALS: BP 110/80
[2019-03-03] MEDS ORDERED: WARFARIN SOD 5 MG TAB PO SCH (17:00)
[2019-03-03 22:00] VITALS: BP 95/65
[2019-03-03] MEDS ORDERED: NS 500 ML IV ONE (23:00)
[2019-03-03 23:52] VITALS: BP 113/68
[2019-03-04 06:00] VITALS: BP 110/67
[2019-03-04] MEDS: NEPHRO-VIT TAB (NEPHROCAPS) PO SCH (06:23)
[2019-03-04] MEDS: (RENVELA) SEVELAMER **CARBONate** 800 MG TAB PO SCH ×2 (06:23→18:59)
[2019-03-04] MEDS: LACTULOSE 20 GM/30 ML SYRUP UD PO SCH ×4 (06:23→22:19)
[2019-03-04] MEDS: OYSTER SHELL CALCIUM 500 MG TAB PO SCH (06:23)
[2019-03-04] MEDS: CYANOCOBALAMIN 500 MCG TAB PO SCH (06:23)
[2019-03-04] MEDS: ASPIRIN 81 MG ENTERIC TAB PO SCH (06:23)
[2019-03-04] MEDS: VITAMIN D 1,000 INTERNATIONAL UNITS TABLET PO SCH (06:24)
[2019-03-04] MEDS: DOCUSATE SODIUM 100 MG CAP PO SCH ×3 (06:24→22:19)
[2019-03-04] MEDS: PANTOPRAZOLE 40MG TAB (PROTONIX) PO SCH (06:24)
[2019-03-04] MEDS: METOPROLOL TART 25 MG TABLET PO SCH ×2 (06:29→22:24)
[2019-03-04] MEDS: EMLA CREAM 5GM (LIDOCAINE/PRILOCAINE) TOP SCH (07:48)
[2019-03-04] MEDS: HumaLOG INSULIN (NovoLOG) PER UNIT SC SCH ×4 (08:08→22:14)
[2019-03-04 08:33] LABS: HEMOGLOBIN 11.6 g/dl (13.5-17.5); MEAN CORPUSCULAR HEMOGLOBIN 33.8 pg (27.0-33.0); MEAN CORPUSCULAR HGB CONC 32.2 g/dl (32.0-36.5); PLATELET COUNT, AUTOMATED 103 10^3/uL (150-450); RED BLOOD COUNT 3.43 10^6/uL (4.30-6.10); WHITE BLOOD COUNT 6.6 10^3/uL (4.0-10.0)
[2019-03-04 09:03] LABS: CALCIUM LEVEL 7.7 MG/DL (8.8-10.2); CREATININE FOR GFR 8.11 MG/DL (0.70-1.30); GLOMERULAR FILTRATION RATE 8.5 (>42); POTASSIUM SERUM 4.4 MEQ/L (3.5-5.1)
[2019-03-04 09:27] LABS: INR 1.82; PROTHROMBIN TIME 20.8 SECONDS (11.8-14.0)
[2019-03-04] MEDS ORDERED: HEPARIN 1,000 UNITS/ML 10ML VIAL (FOR RADIOLOGY& DIALYSIS ONLY) IV ONE (10:00)
[2019-03-04] MEDS ORDERED: HEPARIN 1,000 UNITS/ML 10ML VIAL (FOR RADIOLOGY& DIALYSIS ONLY) XX ONE (10:00)
--- NOTE | 2019-03-04 10:20 | IPNPDOC ---
Date Seen The patient was seen on 03/04/19. Progress Note SUBJECTIVE: Patient was interviewed and examined in his hospital room this morning. Patient was found to be seated upright in bed in no acute distress. He states that overnight he has had 3 loose bowel movements. He denies any dark/tarry stools or bright red blood. Does describe some very mild abdominal discomfort that he attributes to his repeat bowel movements. PHYSICAL EXAM: Vitals: Please see below. General: Patient is a obese man sitting in his hospital bed. HEENT: Right lens has noticeable opacification. 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 Left pupil round and react to light and accommodation. No scleral icterus noted. Poor oral hygiene noted, with multiple missing teeth.. Trachea midline. Lungs: Lungs CTA B/L. Patient denies SOB. He does have a occasional cough which he states produces yellow-tinged sputum. Heart: Pacemaker implanted. Regular rhythm and normal rate noted. No murmurs, rubs, or knocks noted. No muffled heart sounds. Abdomen: Abdomen appears distended and firm making palpation of organs difficult. Normal abdominal sounds noted in all 4 quadrants. No guarding or rebound tenderness. No Jaundice noted. No pain or tenderness to palpation noted. Extremities: +1 edema noted bilaterally. Patient seems to have venous stasis with numerous small excoriations noted bilaterally in his LE. No rashes, wounds, weeping sores noted. No significant muscle atrophy noted. Neuro: Mild asterixis noted, particularly on the right. Patient's speech continues to be difficult to understand. Though, this remains consistent with his presentation since admission. No focal deficits noted noted. Patient alert and aware 3. Skin: Patient was noted to have multiple dark colored vomitus in both his anterior thighs bilaterally. Some similar lesions are noted on his abdomen. He states he has had these for years and they have not changed. He does report that they are quite itchy. IMAGING: Head CT (03/01/19): No acute intracranial abnormality noted. Bilateral mastoid effusions. Vascular ultrasound (03/01/19): Nondiagnostic examination secondary to technical factors. Velocities in the left and internal carotid arteries were not able to be constantly obtained. Chest x-ray (03/02/19): No acute changes detected compared to 01/12/19 Liver ultrasound (03/02/19): Findings consistent with hepatic cirrhosis with bidirectional portal flow. There is trace perihepatic fluid. Echogenic right kidney consistent with medical renal disease. Otherwise negative right upper quadrant sonogram. ASSESSMENT: Patient is a 73-year-old -Turkish male with a history of end-stage renal disease, on hemodialysis 3 times per week, presented to the emergency department with hyperammonemia, speech difficulties and liver cirrhosis. PLAN: #Speech abnormality Patient's speech continues to remain consistent throughout his hospitalization. Imaging studies performed upon patient's admission was negative for any acute findings. Physical examination does not point to any specific neurologic etiology. Continue to monitor. Will consider repeat imaging study in the events to her cerebral infarct was not apparent on initial imaging. #Hyperammonemia. Lactulose syrup was increased to 15 mL PO Q6H and titrated until patient 4-6 BM/day yesterday. Rifaximin 550 by mouth twice a day was added per nephrology. Patient does demonstrate asterixis. Patient does admit to an extensive drinking history. He states that he stopped drinking approximately 4 years ago. Patient used to drink alcohol straight on a daily basis. He remains an unreliable historian in regard to his history of alcohol use. 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 Patient placed under airborne and isolation precautions. Chest x-ray has been performed and was negative for acute changes since 01/09/2019. There was no indication of active TB infection noted. Quantiferon gold and PPD orders have been placed and are pending. TB test does not appear to be positive during rounds morning. #Carboxyhemoglobinemia: Patient's carboxyhemoglobin measured at 3.1 on admission Oxygen therapy was initiated upon admission Per patient's this is likely due to Mr. Lobo leaving the gas stove on and falling asleep on the couch Patient denies any depression or suicidal ideation. Patient continues to be hemodynamically stable. #A. fib: Patient has history of A. fib and upon observation EKG is currently in A. fib Patient is adequately rate controlled on metoprolol 25 mg, which we are continuing. Increased warfarin dosage to 8 mg on 03/02 and 03/03. INR evaluation this morning demonstrates improvement from 1.51 to 1.82. Therapeutic goal of 2.0-3.0. #ESRD: Patient has a past medical history significant for ESRD. Hemodialysis Thursday and Thursday. Dialysis performed on 03/02/19 with 4000 mL removed. Nephrology is following the patient and we appreciate their assistance in management of this patient. Morning labs demonstrate a increase in creatinine to 8.11. Date of monitor with daily BMP. Patient to receive dialysis this morning. Continue Renvela and vitamin D. #Diabetes mellitus: PMHx significant for diabetes mellitus type 2. Continue home meds. Consistent carb diet. Fingersticks before meals and at bedtime. Glucose appears well controlled at approximately 100 mg/dL Hypoglycemic protocol. #HTN (hypertension): Patient's blood pressure appears to be well controlled under 120 Continue home medications. #Possible Hx of Gastric/duodenal ulcer Patient is currently taking Pantoprazole Sodium 40 mg QD PO No Hx of ulcers or GERD in his previous notes #Morbid Obesity BMI 40.5 Patient would likely benefit from outpatient weight control effort VS, I&O, 24H, Fishbone Vital Signs/I&O Vital Signs Date Time Temp Pulse Resp B/P (MAP) Pulse Ox O2 Delivery O2 Flow Rate FiO2 03/04/19 06:29 88 110/67 03/04/19 06:00 97.8 20 99 Room Air I&O- Last 24 Hours up to 6 AM 03/04/19 06:00 Intake Total 1040 ml Output Total 0 ml Balance 1040 ml Laboratory Data 24H LABS Laboratory Tests 2 03/03/19 11:32: Bedside Glucose (Misc Panel) 115H 03/03/19 16:21: Bedside Glucose (Misc Panel) 122H 03/03/19 20:51: Bedside Glucose (Misc Panel) 133H 03/04/19 07:37: Bedside Glucose (Misc Panel) 110 03/04/19 08:09: Nucleated Red Blood Cells % (auto) 0.0, Prothrombin Time 20.8H, Prothromb Time International Ratio 1.82, Anion Gap 8, Glomerular Filtration Rate 8.5L, Calcium Level 7.7L CBC/BMP Laboratory Tests 03/04/19 08:09 Microbiology Microbiology 03/02/19 Acid Fast Stain - Final, Resulted 03/02/19 Mycobacterial Culture, Resulted Pending GME ATTESTATION GME ATTESTATION I saw and evaluated the patient. I agree with the findings and plan of care as documented in the above note JUAN JOSE ALFARO DO Mar 04, 2019 10:20 ROSSY ERNANDEZ MD Mar 06, 2019 14:51
--- NOTE | 2019-03-04 10:52 | IPNPDOC ---
Date Seen The patient was seen on 03/04/19. Progress Note NEPHROLOGY SERVICE PROGRESS NOTE: SUBJECTIVE: Patient was seen and examined at the bedside undergoing dialysis this morning. He had six episodes of diarrhea yesterday and subsequently refused his lactulose this morning. He denies any shortness of breath, palpitations, or abdominal pain. He is not having any issues with dialysis. OBJECTIVE PHYSICAL EXAMINATION: VITAL SIGNS: Please see below. GENERAL APPEARANCE: Sitting on the edge of the bed, appears stated age, no acute distress HEENT: EOMI, PERRLA, neck is supple with no thyromegaly or lymphadenopathy, RIJ in place RESPIRATORY: Faint crackles are heard at the bases but otherwise he is clear to auscultation bilaterally without any other adventitious breath sounds CARDIOVASCULAR: JVD is somewhat elevated 8-10cm above sternal angle, RRR without murmurs/rubs/gallops ABDOMEN: Soft, obese, nontender to palpation, no masses/organomegaly EXTREMITIES: Left transmetatarsal amputation; Some trace edema in lower extremities bilaterally NEUROLOGICAL: No obvious focal deficits PSYCHIATRIC: normal mood/affect LABORATORY DATA: Please see below. ASSESSMENT/PLAN: Irwin Lobo is a 73 YO M with history of ESRD on HD who presented with slurred speech and confusion found to have elevated ammonium level and cirrhosis 1. ESRD: Patient will be dialyzed per his usual schedule today -Electrolytes WNL today -Continue Renvela, Vitamin D 2. HTN: -Irwin had some soft BPs overnight 2/2 fluid loss through multiple bowel movements. His BP is doing better today. Lactulose was decreased so he should not be having as many BMs. -Will continue to monitor closely 3. Atrial fibrillation: -Continue Metoprolol and Coumadin 4. DM2 on insulin -Continue insulin regimen as prescribed. 5. h/o Exposure to TB infection: The patient's is currently undergoing treatment for TB. Unknown TB status. Will isolate patient as a precaution at this time. -Quantiferon gold pending, Sputum AFB negative, PPD ordered and negative so far -CXR normal 6. Elevated Ammonium level, confusion and diarrhea: Confusion has resolved. -Continue lactulose. Dose changed to 15ml PO BID -Added Rifaximin 400 PO BID x7 days (Day 2 today) -Liver US demonstrated cirrhosis most likely 2/2 alcohol use, although patient is a poor historian Dispo: Pending clinical improvement. Will get HD today. VS, I&O, 24H, Fishbone Vital Signs/I&O Vital Signs Date Time Temp Pulse Resp B/P (MAP) Pulse Ox O2 Delivery O2 Flow Rate FiO2 03/04/19 06:29 88 110/67 03/04/19 06:00 97.8 20 99 Room Air I&O- Last 24 Hours up to 6 AM 03/04/19 05:59 Intake Total 1290 ml Output Total 0 ml Balance 1290 ml Laboratory Data 24H LABS Laboratory Tests 2 03/03/19 11:32: Bedside Glucose (Misc Panel) 115H 03/03/19 16:21: Bedside Glucose (Misc Panel) 122H 03/03/19 20:51: Bedside Glucose (Misc Panel) 133H 03/04/19 07:37: Bedside Glucose (Misc Panel) 110 03/04/19 08:09: Nucleated Red Blood Cells % (auto) 0.0, Prothrombin Time 20.8H, Prothromb Time International Ratio 1.82, Anion Gap 8, Glomerular Filtration Rate 8.5L, Calcium Level 7.7L CBC/BMP Laboratory Tests 03/04/19 08:09 Microbiology Microbiology 03/02/19 Acid Fast Stain - Final, Resulted 03/02/19 Mycobacterial Culture, Resulted Pending GME ATTESTATION GME ATTESTATION My faculty preceptor for this patient encounter was physically present during the encounter and was fully available. All aspects of the patient interview, examination, medical decision making process, and medical care plan development were reviewed and approved by the faculty preceptor. The faculty preceptor is aware and concurs with the plan as stated in the body of this note and will attest to such by his/her cosignature. MATTHEW HUGGINS MD Mar 04, 2019 10:52 JOSE JAVED MD Mar 05, 2019 19:56
[2019-03-04] MEDS ORDERED: PPD DOCUMENTATION ENTRY MISC XX ONE (14:00)
[2019-03-04] MEDS: GABAPENTIN 100 MG CAP PO SCH (15:33)
[2019-03-04] MEDS: ATORVASTATIN 20 MG TAB PO SCH (15:33)
[2019-03-04] MEDS: WARFARIN SOD 5 MG TAB PO SCH (18:59)
[2019-03-04 22:00] VITALS: BP 95/61
--- NOTE | 2019-03-04 22:36 | ECHO ---
DATE OF PROCEDURE: 03/02/2019 REFERRING PHYSICIAN: Dr. Madeline Lerma INDICATION: Acute stroke. HEIGHT: 183 cm WEIGHT: 136 kg 2D MEASUREMENTS: LVOT: 2.1 cm Ventricular septum: 1.31 cm Posterior wall: 1.29 cm Left ventricle diastole: 4.8 cm Left atrium: 4.5 cm Inferior vena cava: 3.1 cm DOPPLER MEASUREMENTS: Very mild aortic regurgitation. Mild aortic stenosis. Peak aortic valve velocity: 245 cm/s Peak aortic valve gradient: 24 mmHg Mean aortic valve gradient: 14 mmHg Aortic valve VTI: 55.5 cm LVOT velocity: 52.2 cm/s LVOT VTI: 10.6 cm Mild mitral regurgitation. No mitral stenosis. Severe tricuspid regurgitation. Estimated right ventricle systolic pressure: At least 46 mmHg assuming a pressure of at least 20 mmHg. Pulmonary artery systolic pressure: 46 mmHg. DESCRIPTION: Rhythm was atrial fibrillation with controlled ventricular response. Image quality was fair. This was a 2D, M-mode, color flow Doppler and pulse wave Doppler examination. CONCLUSIONS: 1. Mild concentric left ventricle hypertrophy with normal regional left ventricular (LV) wall motion and wall thickening. Left ventricular ejection fraction (LVEF) 70% by visual estimate. Unable to assess LV diastolic function in the setting of atrial fibrillation. 2. Moderate left atrial dilatation. 3. Severe focal thickening and focal calcific deposits of a 3-cusp aortic valve. Moderate reduction in aortic cusp mobility. Mild aortic stenosis and very mild aortic regurgitation. 4. Severe mitral annular calcification. Mild mitral regurgitation. No mitral stenosis. 5. Mild dilatation of the aortic root at the level of the sinuses of Valsalva. 6. Suggestive of moderate elevation of estimated right ventricle systolic pressure and pulmonary artery systolic pressure. At least mild right ventricle dilatation. Normal RV systolic function. At least mild right atrial dilatation. Severe tricuspid regurgitation with structurally normal appearing tricuspid leaflets. Suggestive of elevated central venous pressure of at least 20 mmHg. Inferior vena cava plethora. Systolic flow reversal in the hepatic veins consistent with severe tricuspid regurgitation. 7. Presence of a ventricular pacemaker lead in the right ventricle coursing towards the right ventricle apex. 8. Tiny pericardial effusion. MTDD
[2019-03-05 06:00] VITALS: BP 107/64
[2019-03-05 07:35] LABS: HEMATOCRIT 34.4 % (42.0-52.0); HEMOGLOBIN 11.1 g/dl (13.5-17.5); MEAN CORPUSCULAR HEMOGLOBIN 33.3 pg (27.0-33.0); MEAN CORPUSCULAR HGB CONC 32.3 g/dl (32.0-36.5); MEAN CORPUSCULAR VOLUME 103.3 fl (80.0-96.0); PLATELET COUNT, AUTOMATED 100 10^3/uL (150-450); RED BLOOD COUNT 3.33 10^6/uL (4.30-6.10); WHITE BLOOD COUNT 6.6 10^3/uL (4.0-10.0)
[2019-03-05 08:07] LABS: ALBUMIN 3.1 GM/DL (3.2-5.2); BILIRUBIN,TOTAL 1.3 MG/DL (0.2-1.0); CALCIUM LEVEL 7.6 MG/DL (8.8-10.2); CREATININE FOR GFR 6.18 MG/DL (0.70-1.30); GLOMERULAR FILTRATION RATE 11.6 (>42); POTASSIUM SERUM 4.1 MEQ/L (3.5-5.1); TOTAL PROTEIN 7.2 GM/DL (6.4-8.2)
[2019-03-05 08:25] VITALS: BP 99/59
[2019-03-05] MEDS: (RENVELA) SEVELAMER **CARBONate** 800 MG TAB PO SCH ×2 (08:30→18:27)
[2019-03-05] MEDS: HumaLOG INSULIN (NovoLOG) PER UNIT SC SCH ×4 (08:30→21:00)
[2019-03-05] MEDS: VITAMIN D 1,000 INTERNATIONAL UNITS TABLET PO SCH (08:31)
[2019-03-05] MEDS: NEPHRO-VIT TAB (NEPHROCAPS) PO SCH (08:31)
[2019-03-05] MEDS: ASPIRIN 81 MG ENTERIC TAB PO SCH (08:31)
[2019-03-05] MEDS: OYSTER SHELL CALCIUM 500 MG TAB PO SCH (08:32)
[2019-03-05] MEDS: DOCUSATE SODIUM 100 MG CAP PO SCH ×2 (08:32→21:52)
[2019-03-05] MEDS: CYANOCOBALAMIN 500 MCG TAB PO SCH (08:32)
[2019-03-05 08:33] LABS: INR 1.85; PROTHROMBIN TIME 21.1 SECONDS (11.8-14.0)
[2019-03-05] MEDS: PANTOPRAZOLE 40MG TAB (PROTONIX) PO SCH (08:33)
[2019-03-05] MEDS: LACTULOSE 20 GM/30 ML SYRUP UD PO SCH ×2 (08:33→21:52)
[2019-03-05] MEDS: METOPROLOL TART 25 MG TABLET PO SCH ×2 (11:00→21:00)
--- NOTE | 2019-03-05 11:23 | IPNPDOC ---
Date Seen The patient was seen on 03/05/19. Progress Note NEPHROLOGY SERVICE PROGRESS NOTE: SUBJECTIVE: Patient was seen and examined at the bedside this morning. He is still having diarrhea from his lactulose and ammonium is still elevated. He denies any shortness of breath, palpitations, or abdominal pain. He is not having any issues with dialysis. His blood pressures were soft overnight and this morning. Otherwise, he has no complaints at this time. OBJECTIVE PHYSICAL EXAMINATION: VITAL SIGNS: Please see below. GENERAL APPEARANCE: Sitting on the edge of the bed, appears stated age, no acute distress HEENT: EOMI, PERRLA, neck is supple with no thyromegaly or lymphadenopathy, RIJ in place RESPIRATORY: Faint crackles are heard at the bases but otherwise he is clear to auscultation bilaterally without any other adventitious breath sounds CARDIOVASCULAR: JVD is somewhat elevated 8-10cm above sternal angle, RRR without murmurs/rubs/gallops ABDOMEN: Soft, obese, nontender to palpation, no masses/organomegaly EXTREMITIES: Left transmetatarsal amputation; Some trace edema in lower extremities bilaterally NEUROLOGICAL: No obvious focal deficits PSYCHIATRIC: normal mood/affect LABORATORY DATA: Please see below. ASSESSMENT/PLAN: Irwin Lobo is a 73 YO M with history of ESRD on HD who presented with slurred speech and confusion found to have elevated ammonium level and cirrhosis. 1. ESRD: Next HD will be on Thursday, per his usual schedule -Electrolytes WNL today -Continue Renvela, Vitamin D 2. Hypotension: -Hold parameters added to metoprolol. He is not on any BP meds at the moment although he does have a history of HTN. -Will continue to monitor closely 3. Atrial fibrillation: -Continue Metoprolol and Coumadin 4. DM2 on insulin -Continue insulin regimen as prescribed. 5. Exposure to TB infection: The patient's is currently undergoing treatment for TB. Unknown TB status. Will isolate patient as a precaution at this time. -Quantiferon gold pending -Sputum AFB negative, PPD negative -CXR normal 6. Hepatic encephalopathy: Confusion has resolved. -Continue lactulose. Dose changed to 15ml PO BID -Added Rifaximin 400 PO BID x7 days (Day 3 today) -Liver US demonstrated cirrhosis most likely 2/2 alcohol use, although patient is a poor historian Dispo: Pending clinical improvement. Will get next HD on Thursday. VS, I&O, 24H, Fishbone Vital Signs/I&O Vital Signs Date Time Temp Pulse Resp B/P (MAP) Pulse Ox O2 Delivery O2 Flow Rate FiO2 03/05/19 08:25 99/59 (72) 03/05/19 06:00 97.2 79 20 97 Room Air I&O- Last 24 Hours up to 6 AM 03/05/19 05:59 Intake Total 860 ml Output Total 4000 ml Balance -3140 ml Laboratory Data 24H LABS Laboratory Tests 2 03/04/19 15:14: Bedside Glucose (Misc Panel) 123H 03/04/19 17:06: Bedside Glucose (Misc Panel) 147H 03/05/19 06:43: Nucleated Red Blood Cells % (auto) 0.0, Anion Gap 10, Glomerular Filtration Rate 11.6L, Calcium Level 7.6L, Total Bilirubin 1.3H, Aspartate Amino Transf (AST/SGOT) 25, Alanine Aminotransferase (ALT/SGPT) 21, Alkaline Phosphatase 1 67H, Ammonia 94H, Total Protein 7.2, Albumin 3.1L, Albumin/Globulin Ratio 0.76L 03/05/19 08:07: Prothrombin Time 21.1H, Prothromb Time International Ratio 1.85 CBC/BMP Laboratory Tests 03/05/19 06:43 Microbiology Microbiology 03/02/19 Acid Fast Stain - Final, Resulted 03/02/19 Mycobacterial Culture, Resulted Pending GME ATTESTATION GME ATTESTATION My faculty preceptor for this patient encounter was physically present during the encounter and was fully available. All aspects of the patient interview, examination, medical decision making process, and medical care plan development were reviewed and approved by the faculty preceptor. The faculty preceptor is aware and concurs with the plan as stated in the body of this note and will attest to such by his/her cosignature. MATTHEW HUGGINS MD Mar 05, 2019 11:23 JOSE JAVED MD Mar 05, 2019 21:00
[2019-03-05] MEDS: GABAPENTIN 100 MG CAP PO SCH (12:22)
[2019-03-05] MEDS: ATORVASTATIN 20 MG TAB PO SCH (12:22)
[2019-03-05] MEDS ORDERED: COUM1TAB17 PO (12:50)
--- NOTE | 2019-03-05 13:35 | DS.PDOC ---
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 HISTORY OF PRESENT ILLNESS: Patient is a 73-year-old -[place] male with a past medical history significant for end-stage renal disease, HD MWF, hypertension, sleep apnea on CPAP, atrophic fibrillation, tachycardia, I DDM, morbid obesity, permanent pacemaker who was brought into the hospital via ambulance at the behest of his . Patient's states that the patient's speech has been slurred and g arbled the day of presentation. Patient was reporting that his speech was at baseline. He was denying any chest pain, shortness of breath, nausea, vomiting, diarrhea or abdominal pain. He did not demonstrate any motor or sensory or cranial nerve deficits. Imaging performed in the emergency department was negative for any intracranial lesions or bleeds. Laboratory examination from the patient to have elevated ammonia levels. HOSPITAL COURSE: Patient was admitted to the hospital for hepatic encephalopathy. He received lactulose and rifaximin. Nephrology was consulted to follow the patient in regards to his hemodialysis. Patient received wound care to his lower left ex tremity. Upon admission the floor, patient was visited by his who is currently being treated for latent tuberculosis by Dr. Kam. Patient did complain of increasing cough and was placed on airborne precautions. QuantiFERON was ordered and remains pending. A PPD test was placed and read as negative 48 hours later. Patient continued to receive lactulose with greater than 4 bowel movements per day. His ammonia was intermittently monitored and showed to be responding appropriately. Patient did demonstrate some hypotension following dialysis. Hold parameters were added to his metoprolol. Patient's INR was found to be subtherapeutic. Patient normally continued on 30 mg weekly prior to admission. Patient's dose of Coumadin was increased to 8 mg for two days and then returned to 5 mg daily for the remainder of his hospitalization. INR continued to remain subtherapeutic at discharge. Rx for 6 mg PO daily of Coumadin was written for the patient. Follow-up with PCP in 7-10 days for INR and coumadin adjustment. Discharge was discussed the patient, who was in agreement. DISCHARGE MEDICATIONS: Please see below. ALLERGIES: Please see below. PHYSICAL EXAMINATION ON DISCHARGE: VITAL SIGNS: Please see below. General: Patient is a obese man sitting in his hospital bed. HEENT: Right lens has noticeable opacification. 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 Left pupil round and react to light and accommodation. No scleral icterus noted. Poor oral hygiene noted, with multiple missing teeth.. Trachea midline. Lungs: Lungs CTA B/L. Patient denies SOB. He does have a occasional cough which he states produces yellow-tinged sputum. Heart: Pacemaker implanted. Regular rhythm and normal rate noted. No murmurs, rubs, or knocks noted. No muffled heart sounds. Abdomen: Abdomen appears distended and firm making palpation of organs difficult. Normal abdominal sounds noted in all 4 quadrants. No guarding or rebound tenderness. No Jaundice noted. No pain or tenderness to palpation noted. Extremities: +1 edema noted bilaterally. Patient seems to have venous stasis with numerous small excoriations noted bilaterally in his LE. No rashes, wounds, weeping sores noted. No significant muscle atrophy noted. Neuro: Resolved asterisks. Patient's speech continues to be difficult to understand. Though, this remains consistent with his presentation since admission. No focal deficits noted noted. Patient alert and aware 3. Skin: Patient was noted to have multiple dark colored raised lesions on both his anterior thighs bilaterally. Some similar lesions are noted on his abdomen. He states he has had these for years and they have not changed. LABORATORY DATA: Please see below. IMAGING: Head CT (03/01/19): No acute intracranial abnormality noted. Bilateral mastoid effusions. Vascular ultrasound (03/01/19): Nondiagnostic examination secondary to technical factors. Velocities in the left and internal carotid arteries were not able to be constantly obtained. Chest x-ray (03/02/19): No acute changes detected compared to 01/12/19 Liver ultrasound (03/02/19): Findings consistent with hepatic cirrhosis with bidirectional portal flow. There is trace perihepatic fluid. Echogenic right kidney consistent with medical renal disease. Otherwise negative right upper quadrant sonogram. PROGNOSIS: Guarded ACTIVITY: As tolerated DIET: 2 gram Sodium Diet Consistent Card Diet DISCHARGE PLAN: Home with self-care DISCHARGE INSTRUCTIONS: Please follow-up with PCP in 7-10 days for INR check and dose adjustment. Please continue dialysis MWF. Please begin taking Coumadin 6 mg daily. Please resume other home medications as prescribed. Please return to ED should you experience confusion or slurring of your speech. Thank you for allowing us to participate in your care. DISCHARGE CONDITION: Stable I saw and evaluated the patient. I agree with the findings and plan of care as documented in the documenters note. I spent 45 minutes coordinating this patient's discharge. Vital Signs/I&Os Vital Signs Date Time Temp Pulse Resp B/P (MAP) Pulse Ox O2 Delivery O2 Flow Rate FiO2 03/05/19 11:00 96 99/59 03/05/19 06:00 97.2 20 97 Room Air I&O- Last 24 Hours up to 6 AM 03/05/19 05:59 Intake Total 860 ml Output Total 4000 ml Balance -3140 ml Laboratory Data Labs 24H Laboratory Tests 2 03/04/19 15:14: Bedside Glucose (Misc Panel) 123H 03/04/19 17:06: Bedside Glucose (Misc Panel) 147H 03/04/19 20:20: Bedside Glucose (Misc Panel) 150H 03/05/19 06:43: Nucleated Red Blood Cells % (auto) 0.0, Anion Gap 10, Glomerular Filtration Rate 11.6L, Calcium Level 7.6L, Total Bilirubin 1.3H, Aspartate Amino Transf (AST/SGOT) 25, Alanine Aminotransferase (ALT/SGPT) 21, Alkaline Phosphatase 167H, Ammonia 94H, Total Protein 7.2, Albumin 3.1L, Albumin/Globulin Ratio 0.76L 03/05/19 08:07: Prothrombin Time 21.1H, Prothromb Time International Ratio 1.85 03/05/19 11:49: Bedside Glucose (Misc Panel) 108 CBC/BMP Laboratory Tests 03/05/19 06:43 FSBS Laboratory Tests Test 03/04/19 15:14 03/04/19 17:06 03/04/19 20:20 03/05/19 11:49 Range/Units Bedside Glucose (Misc Panel) 123 147 150 108 83-110 MG/DL Microbiology Microbiology 03/02/19 Acid Fast Stain - Final, Resulted 03/02/19 Mycobacterial Culture, Resulted Pending Discharge Medications Scheduled Aspirin (Aspirin EC) 81 Mg Tab, 81 MG PO DAILY, (Reported) Atorvastatin Calcium (Atorvastatin Calcium) 20 Mg Tab, 20 MG PO DAILY, (Reported) AT NOON Calcium Carbonate (Calcium Carbonate) 500 Mg Tablet, 500 MG PO DAILY, (Reported) Cholecalciferol (Vitamin D3) (Vitamin D3) 1,000 Unit Tab, 1,000 UNITS PO DAILY, (Reported) Cyanocobalamin (Vitamin B-12) (Vitamin B-12) 500 Mcg Tab, 1,000 MCG PO DAILY, (Reported) Gabapentin (Gabapentin) 100 Mg Cap, 100 MG PO DAILY, (Reported) AT NOON Insulin Aspart (Novolog Flexpen) 100 Unit/Ml Inj, 1 DOSE SC DAILY, (Reported) PER SLIDING SCALE WITH BREAKFAST Lidocaine/Prilocaine (Lidocaine-Prilocaine Cream) 2.5%/2.5% Cream..g., 1 APLCT TOP ASDIRECTED, (Reported) APPLY TO DIALYSIS ACCESS SITE ONE HOUR PRIOR TO DIALYSIS THU, THU, THU Metoprolol Tartrate (Metoprolol Tartrate) 25 Mg Tab, 25 MG PO BID, (Reported) Pantoprazole Sodium (Pantoprazole Sodium) 40 Mg Tablet.dr, 40 MG PO DAILY, (Reported) Sevelamer Carbonate (Sevelamer Carbonate) 800 Mg Tab, 800 MG PO BID, (Reported) WITH BREAKFAST AND DINNER Umeclidinium [place] (Incruse Ellipta) 62.5 Mcg Blst.w.dev, 1 PUFF INH DAILY, (Reported) Vit B Comp No.3/Folic/C/Biotin (Nephro-Martin Rx Tablet) 1 Tab Tab, 1 TAB PO DAILY, (Reported) Warfarin Sodium (Coumadin) 5 Mg Tablet, 6 MG PO DAILY@17 Scheduled PRN Albuterol Sulfate (Ventolin Hfa) 108 Mcg/Act Aer, 2 PUFFS INH QID PRN for SHORTNESS OF BREATH, (Reported) Hydroxyzine HCl (Hydroxyzine HCl) 25 Mg Tablet, 25 MG PO BID PRN for ITCHING, (Reported) Nitroglycerin (Nitrostat) 0.4 Mg Subl, 0.4 MG SL NITRO PRN for ANGINA, (Reported) Allergies Coded Allergies: No Known Allergies (Verified , 03/03/17) JUAN JOSE ALFARO DO Mar 05, 2019 13:35 ROSSY ERNANDEZ MD Mar 06, 2019 14:52
[2019-03-05 14:00] VITALS: BP 99/62
[2019-03-05] MEDS ORDERED: VANICREAM MOISTURIZING SKIN CREAM 113GM TUBE TOP SCH (15:30)
[2019-03-05] MEDS: WARFARIN SOD 5 MG TAB PO SCH (18:27)
[2019-03-05 22:00] VITALS: BP 106/63
[2019-03-06 06:26] LABS: HEMATOCRIT 34.7 % (42.0-52.0); HEMOGLOBIN 11.4 g/dl (13.5-17.5); MEAN CORPUSCULAR HEMOGLOBIN 34.2 pg (27.0-33.0); MEAN CORPUSCULAR HGB CONC 32.9 g/dl (32.0-36.5); MEAN CORPUSCULAR VOLUME 104.2 fl (80.0-96.0); RED BLOOD COUNT 3.33 10^6/uL (4.30-6.10); WHITE BLOOD COUNT 6.8 10^3/uL (4.0-10.0)
[2019-03-06 06:30] LABS: PLATELET COUNT, AUTOMATED 89 10^3/uL (150-450)
[2019-03-06 06:31] LABS: PROTHROMBIN TIME 22.4 SECONDS (11.8-14.0)
[2019-03-06 06:57] LABS: ALBUMIN 3.2 GM/DL (3.2-5.2); BILIRUBIN,TOTAL 1.2 MG/DL (0.2-1.0); CALCIUM LEVEL 7.4 MG/DL (8.8-10.2); CREATININE FOR GFR 7.64 MG/DL (0.70-1.30); GLOMERULAR FILTRATION RATE 9.1 (>42); POTASSIUM SERUM 4.5 MEQ/L (3.5-5.1); TOTAL PROTEIN 7.1 GM/DL (6.4-8.2)
[2019-03-06] MEDS: HumaLOG INSULIN (NovoLOG) PER UNIT SC SCH ×4 (08:19→21:00)
[2019-03-06] MEDS: (RENVELA) SEVELAMER **CARBONate** 800 MG TAB PO SCH ×2 (08:20→17:59)
[2019-03-06] MEDS: DOCUSATE SODIUM 100 MG CAP PO SCH ×2 (08:21→21:38)
[2019-03-06] MEDS: LACTULOSE 20 GM/30 ML SYRUP UD PO SCH ×4 (08:21→21:38)
[2019-03-06] MEDS: METOPROLOL TART 25 MG TABLET PO SCH ×2 (08:22→21:00)
[2019-03-06] MEDS: ASPIRIN 81 MG ENTERIC TAB PO SCH (08:22)
[2019-03-06] MEDS: NEPHRO-VIT TAB (NEPHROCAPS) PO SCH (08:23)
[2019-03-06] MEDS: OYSTER SHELL CALCIUM 500 MG TAB PO SCH (08:23)
[2019-03-06] MEDS: VITAMIN D 1,000 INTERNATIONAL UNITS TABLET PO SCH (08:23)
[2019-03-06] MEDS: PANTOPRAZOLE 40MG TAB (PROTONIX) PO SCH (08:24)
[2019-03-06] MEDS: CYANOCOBALAMIN 500 MCG TAB PO SCH (08:24)
[2019-03-06] MEDS: GABAPENTIN 100 MG CAP PO SCH (12:27)
[2019-03-06] MEDS: ATORVASTATIN 20 MG TAB PO SCH (12:27)
--- NOTE | 2019-03-06 15:30 | IPN ---
DATE: 03/06/2019 SUBJECTIVE: Irwin is seen and examined this morning at the bedside. He was able to communicate with me, but was a little slower to respond than usual. His ammonia level corinne from 94-175. The patient was still able to control the buttons on his electric hospital bed and called me by name. He does have a chronic stutter and speech impediment that makes him somewhat difficult to understand. His lactulose dose is being increased by the hospitalist service. Next dialysis will be on Thursday. VITAL SIGNS: Temperature 98.0, pulse 86, respiratory rate 20, blood pressure 106/63, saturating 93% on room air. Intake yesterday was 1890. There were two bowel movements recorded yesterday. Weight in the bed scale today is not recorded. GENERAL: Patient is seen lying in bed. He puts up the head of the bed while we are talking. His right eye is opacified. His left pupil is round and reactive. There is poor dentition. He is in no acute distress. There is bilateral air entry, which is symmetric without crackles or rales. He has a central line on the right and pacemaker. There is trace to 1+ edema in the lower extremities. The abdomen is obese and somewhat firm and protuberant. There are bowel sounds present. There is no guarding or tenderness. He has failed arteriovenous access in the right radiocephalic area and a palpable thrill in the right brachial cephalic area. NEUROLOGIC: There is asterixis. He has a chronic stutter and a speech impediment. It is somewhat difficult to comprehend his speech. He is cooperative with physical exam. LABORATORY DATA: Sodium 140, potassium 4.5, bicarbonate 25, BUN 61, creatinine 7.6, ammonia 175. Hemoglobin 11.4, platelets 89. INR 2.0. INPATIENT MEDICATIONS: Reviewed by myself. His lactulose dose was increased by the primary team. The remainder of the medications are unchanged from prior. PROBLEMS: 1. End-stage renal disease on hemodialysis. The patient continues on his Thursday, Thursday, Thursday maintenance schedule. His electrolytes and volume status are acceptable. No changes being made to the current dialysis prescription. 2. Atrial fibrillation. The patient is rate controlled with metoprolol and anticoagulated with Coumadin. His INR is therapeutic. 3. Hyperammonemia. His serum ammonia level has almost doubled. The hospitalist service has up-titrated his lactulose. He continues on rifaximin. His ammonia levels do need to be well controlled prior to discharge.
[2019-03-06] MEDS: WARFARIN SOD 5 MG TAB PO SCH (18:00)
[2019-03-07 06:00] VITALS: BP 103/70
[2019-03-07] MEDS: EMLA CREAM 5GM (LIDOCAINE/PRILOCAINE) TOP SCH (06:00)
[2019-03-07] MEDS: (RENVELA) SEVELAMER **CARBONate** 800 MG TAB PO SCH (06:41)
[2019-03-07] MEDS: LACTULOSE 20 GM/30 ML SYRUP UD PO SCH ×2 (06:41→14:00)
[2019-03-07] MEDS: ASPIRIN 81 MG ENTERIC TAB PO SCH (06:41)
[2019-03-07] MEDS: OYSTER SHELL CALCIUM 500 MG TAB PO SCH (06:41)
[2019-03-07] MEDS: NEPHRO-VIT TAB (NEPHROCAPS) PO SCH (06:42)
[2019-03-07] MEDS: VITAMIN D 1,000 INTERNATIONAL UNITS TABLET PO SCH (06:43)
[2019-03-07] MEDS: CYANOCOBALAMIN 500 MCG TAB PO SCH (06:43)
[2019-03-07] MEDS: PANTOPRAZOLE 40MG TAB (PROTONIX) PO SCH (06:43)
[2019-03-07 06:44] VITALS: BP 102/68
[2019-03-07] MEDS: DOCUSATE SODIUM 100 MG CAP PO SCH (06:44)
[2019-03-07] MEDS: METOPROLOL TART 25 MG TABLET PO SCH (06:44)
[2019-03-07] MEDS: HumaLOG INSULIN (NovoLOG) PER UNIT SC SCH ×2 (08:09→12:00)
[2019-03-07 10:02] LABS: HEMATOCRIT 34.5 % (42.0-52.0); HEMOGLOBIN 11.1 g/dl (13.5-17.5); MEAN CORPUSCULAR HEMOGLOBIN 33.7 pg (27.0-33.0); MEAN CORPUSCULAR HGB CONC 32.2 g/dl (32.0-36.5); MEAN CORPUSCULAR VOLUME 104.9 fl (80.0-96.0); RED BLOOD COUNT 3.29 10^6/uL (4.30-6.10); WHITE BLOOD COUNT 6.5 10^3/uL (4.0-10.0)
[2019-03-07 10:03] LABS: PLATELET COUNT, AUTOMATED 95 10^3/uL (150-450)
[2019-03-07 10:53] LABS: ALBUMIN 3.2 GM/DL (3.2-5.2); BILIRUBIN,TOTAL 0.9 MG/DL (0.2-1.0); CALCIUM LEVEL 7.4 MG/DL (8.8-10.2); CREATININE FOR GFR 9.44 MG/DL (0.70-1.30); GLOMERULAR FILTRATION RATE 7.1 (>42); POTASSIUM SERUM 4.5 MEQ/L (3.5-5.1); TOTAL PROTEIN 7.8 GM/DL (6.4-8.2)
[2019-03-07] MEDS ORDERED: HEPARIN 1,000 UNITS/ML 10ML VIAL (FOR RADIOLOGY& DIALYSIS ONLY) IV ONE (12:00)
[2019-03-07] MEDS ORDERED: HEPARIN 1,000 UNITS/ML 10ML VIAL (FOR RADIOLOGY& DIALYSIS ONLY) XX ONE (12:00)
[2019-03-07] MEDS ORDERED: Lactulose Syrup PO (13:19)
[2019-03-07] MEDS ORDERED: XIFA200T2 PO (13:19)
[2019-03-07] MEDS ORDERED: XIFA550T PO (13:41)
--- NOTE | 2019-03-07 13:48 | IPN ---
DATE: 03/07/2019 SUBJECTIVE: Irwin is seen and examined this morning in the hemodialysis unit receiving his maintenance treatment with goal fluid removal today is 4.5 liters. Denies any overnight events or complaints. The dialysis nurse redressed his PermaCath. There is no new ammonia level from today. Vital signs: Temperature 98.0, pulse 95, respiratory rate 18, blood pressure 103/70, saturating 94% on room air. Intake yesterday was 1490, goal dialysis removal today is 4.5 kg. Weight on the bed scale today is not recorded. General: Patient is seen on dialysis receiving his maintenance treatment. He is awake, alert and oriented to person, place and situation and was cooperative with physical exam and answers simple questions without delay. Has a chronic stutter and speech impediment that makes him difficult to understand. His right eye is opacified. His pupil is round and reactive. There is poor dentition. There is bilateral symmetric air entry without crackle or rale. He has a tunneled hemodialysis catheter present on the right with a new dressing. There is trace to 1+ edema in the lower extremities. Abdomen is obese and protuberant. There are bowel sounds present. There is no guarding or tenderness. He has a patent arteriovenous access in the right brachiocephalic area. Neurologic: There is chronic stutter and speech impediment. It is somewhat difficult to comprehend his speech. This is unchanged from prior. He is otherwise oriented to person, place, situation and answers simple questions appropriately. LABS: Sodium 141, potassium 4.5, bicarbonate 25, INR 2.0. INPATIENT MEDICATIONS: Reviewed by myself and no change from prior. PROBLEMS: 1. End-stage renal disease on hemodialysis on a Thursday, Thursday, Thursday schedule. The patient is being dialyzed today per his maintenance schedule, goal fluid removal of 4.5 kg. His electrolytes and volume status are acceptable. No changes are being made to the current dialysis prescription. 2. Atrial fibrillation. There is no repeat INR from today. His INR yesterday was therapeutic. He is rate controlled with metoprolol and anticoagulated with Coumadin. 3. Hyperammonemia. There is no new serum ammonia level from today. However, I did find his mentation today to be improved as compared to yesterday's exam. The hospitalist service has titrated his lactulose dose. He continues on rifaximin. 4. Hypertension. Blood pressures are well-controlled and no change is being made to the current regimen.
[2019-03-07] MEDS: ATORVASTATIN 20 MG TAB PO SCH (14:00)
[2019-03-07] MEDS: GABAPENTIN 100 MG CAP PO SCH (14:00)
[2019-03-07 14:39] LABS: INR 2.29
[2019-03-07] MEDS ORDERED: LACT10SO29 PO (14:41)
--- NOTE | 2019-03-07 15:07 | DS.PDOC ---
Discharge Summary General Date of Admission Mar 01, 2019 at 20:27 Date of Discharge 03/07/2019 Discharge Summary PROCEDURES PERFORMED DURING STAY: Hemodialysis ADMITTING DIAGNOSES: Speech Abnormality Increased ammonia level Diabetes mellitus, type 2 HTN ESRD on HD (M,W,F) DISCHARGE DIAGNOSES: Speech Abnormality ESRD on dialysis Hyperammonemia Diabetes mellitus, type 2 AF TB Exposure Morbid Obesity HTN COMPLICATIONS/CHIEF COMPLAINT: Increased Ammonia Level,Speech Abnormality. HISTORY OF PRESENT ILLNESS: This is 73 years old -[place]ov[place] male with past medical history of end-stage renal disease on dialysis Thursday, Thursday, Thursday, dyslipidemia, hypertension, platelet 2. Sleep apnea on CPAP, atrial fibrillation, tachybradycardia syndrome, insulin-dependent diabetes mellitus, morbid obesity, permanent pacemaker was brought in via ambulance by his 's request. As per patient's is a speech, is more slurred and garbled since today and she notices it is more pronounced. When talked to the patient is a speech is clear, then he claims that his speech is always like that and didn't notice any difference. Denies any chest pain, shortness of breath, nausea, vomiting, diarrhea or abdominal pain, denies any motor or sensory weakness or cranial nerve deficit HOSPITAL COURSE: Patient is a 73-year-old -[place]ov[place] male with a history of end-stage renal disease, on hemodialysis 3 times per week, who presented to the emergency department with hyperammonemia, subjective speech difficulties (per his ). On admission his physical exam showed a baseline stuttering speech impairment, lethargy, stuporous mental status, abdominal distension and a productive cough which produced yellow-tinged sputum. On admission he was noted to have a elevated ammonia at 71, a subtheraprutic INR at 1.6, and elevated carboxyhemoglobin at 3.1. Per the patient's , Mr. Lobo was cooking on his gas stove and fell asleep with the gas running which produced his carboxyhemoglobinemia. He was started on Warfarin 8 mg PO, Lactulose 15 mL PO QID, Rifamixin 400 mg PO BID. Later, his Warfarin was adjusted to 5 mg PO QD due to a normalized INR. Liver U/S showed hepatic cirrhosis consistent with his history of alcoholism. During his hospital stay, Mr. Lobo mentioned that his may have TB exposure and was concerned that he also was exposed. As stated above, CXR was negative for findings but his Quantiferon Gold was positive indicating either latent infection or solely previous exposure from his . While being treated for his hyperammonemia his mental status waxed and waned. Ammonia level increased due to his noncompliance and refusal to take lactulose. He also received hemodialysis on his previous ,, schedule where approximately 4 L of fluid were removed during each treatment. Patient did demonstrate some hypotension following dialysis which prompted hold parameters for his metoprolol. His cough has improved during his stay here without the use of antibiotics and may be related to fluid overload as he does show some LE edema and abdominal distension possibly related to ascites. Patient was discharged home on lactulose and Rifaximin. DISCHARGE MEDICATIONS: Please see below. ALLERGIES: Please see below. PHYSICAL EXAMINATION ON DISCHARGE: VITAL SIGNS: Please see below. General: Patient was seen in both his room and during dialysis. He appears to be in no distress but does have a occasional cough. HEENT: Right lens has noticeable opacification. Left pupil round and react to light and accommodation. No scleral icterus noted. Poor oral hygiene noted. Trachea midline. Lungs: Lungs CTA B/L. Patient denies SOB. He does have a occasional cough which he states produces yellow-tinged sputum. Heart: Pacemaker implanted. Regular rhythm and normal rate noted. No murmurs, rubs, or knocks noted. No muffled heart sounds. Abdomen: Abdomen appears distended and firm making palpation of organs difficult. Normal abdominal sounds noted in all 4 quadrants. No guarding or rebound tenderness. No Jaundice noted. mild tenderness to palpation over his umbilical hernia Extremities: +1 edema noted bilaterally. Patient seems to have venous stasis with numerous small excoriations noted bilaterally in his LE. No rashes, wounds, weeping sores noted. No significant muscle atrophy noted. Neuro: No focal deficits noted noted. Patient alert and aware 3. Patient does show mild asterixis. Skin: No rashes, bruising, ulcerations noted. No jaundice. LABORATORY DATA: Please see below. IMAGING: Head CT 03/01/2019: No acute intracranial abnormality. Bilateral mastoid effusions Carotid Doppler ultrasound 03/01/2019: Nondiagnostic due to technical issues during the examination such as patient's body habitus as well as superior carotid bifurcation. CXR 03/02/2019: No acute changes detected compared to 01/09/2019. Liver US 03/02/2019: 1. Findings consistent with hepatic cirrhosis with bidirectional portal flow. There is trace perihepatic fluid. 2. Echogenic right kidney consistent with medical renal disease. 3. Otherwise negative right upper quadrant sonogram. PROGNOSIS: fair ACTIVITY: [As tolerated]. DIET: Consistent Carbs and 2g salt daily DISPOSITION: Discharge home with follow up with primary care physician within 1 week. Continue dialysis on Thursday, Thursday, and Thursday as previously prescribed. DISCHARGE INSTRUCTIONS: 1. Follow up with PCP in 11-24 for INR check and/or dose adjustment 2. Continue dialysis Thursday, Thursday, Thursday 3. Resume home medications as prescribed 4. Take rifaxamin 550 mg daily for 14 days 5. Continue taking Lactulose 15 mL twice a day and maintain 4-5 bowel movements per day 6. Begin taking Coumadin 6mg daily 7. Return to the ED if you have confusion or slurring of speech DISCHARGE CONDITION: [Stable]. TIME SPENT ON DISCHARGE: Greater than 60 minutes. Vital Signs/I&Os Vital Signs Date Time Temp Pulse Resp B/P (MAP) Pulse Ox O2 Delivery O2 Flow Rate FiO2 03/07/19 06:44 102/68 03/07/19 06:00 98.0 95 18 94 Room Air I&O- Last 24 Hours up to 6 AM 03/07/19 06:00 Intake Total 1590 ml Balance 1590 ml Laboratory Data Labs 24H Laboratory Tests 2 03/06/19 16:48: Bedside Glucose (Misc Panel) 129H 03/06/19 20:39: Bedside Glucose (Misc Panel) 153H 03/07/19 06:00: Nucleated Red Blood Cells % (auto) 0.0, Immature Platelet Fraction 6.2, Anion Gap 11, Glomerular Filtration Rate 7.1L, Calcium Level 7.4L, Total Bilirubin 0.9, Aspartate Amino Transf (AST/SGOT) 18, Alanine Aminotransferase (ALT/SGPT) 20, Alkaline Phosphatase 158H, Total Protein 7.8, Albumin 3.2, Albumin/Globulin Ratio 0.70L 03/07/19 08:02: Bedside Glucose (Misc Panel) 136H CBC/BMP Laboratory Tests 03/07/19 06:00 FSBS Laboratory Tests Test 03/06/19 16:48 03/06/19 20:39 03/07/19 08:02 Range/Units Bedside Glucose (Misc Panel) 129 153 136 83-110 MG/DL Microbiology Microbiology 03/02/19 Acid Fast Stain - Final, Resulted 03/02/19 Mycobacterial Culture, Resulted Pending Discharge Medications Scheduled Aspirin (Aspirin EC) 81 Mg Tab, 81 MG PO DAILY, (Reported) Atorvastatin Calcium (Atorvastatin Calcium) 20 Mg Tab, 20 MG PO DAILY, (Reported) AT NOON Calcium Carbonate (Calcium Carbonate) 500 Mg Tablet, 500 MG PO DAILY, (Reported) Cholecalciferol (Vitamin D3) (Vitamin D3) 1,000 Unit Tab, 1,000 UNITS PO DAILY, (Reported) Cyanocobalamin (Vitamin B-12) (Vitamin B-12) 500 Mcg Tab, 1,000 MCG PO DAILY, (Reported) Gabapentin (Gabapentin) 100 Mg Cap, 100 MG PO DAILY, (Reported) AT NOON Insulin Aspart (Novolog Flexpen) 100 Unit/Ml Inj, 1 DOSE SC DAILY, (Reported) PER SLIDING SCALE WITH BREAKFAST Lactulose (Lactulose) 10 Gm/15 Ml Solution, 15 ML PO BID Lidocaine/Prilocaine (Lidocaine-Prilocaine Cream) 2.5%/2.5% Cream..g., 1 APLCT TOP ASDIRECTED, (Reported) APPLY TO DIALYSIS ACCESS SITE ONE HOUR PRIOR TO DIALYSIS MON, WED, FRI Metoprolol Tartrate (Metoprolol Tartrate) 25 Mg Tab, 25 MG PO BID, (Reported) Pantoprazole Sodium (Pantoprazole Sodium) 40 Mg Tablet.dr, 40 MG PO DAILY, (Reported) Rifaximin (Xifaxan) 550 Mg Tablet, 550 MG PO DAILY Sevelamer Carbonate (Sevelamer Carbonate) 800 Mg Tab, 800 MG PO BID, (Reported) WITH BREAKFAST AND DINNER Umeclidinium Shasta (Incruse Ellipta) 62.5 Mcg Blst.w.dev, 1 PUFF INH DAILY, (Reported) Vit B Comp No.3/Folic/C/Biotin (Nephro-Martin Rx Tablet) 1 Tab Tab, 1 TAB PO DAILY, (Reported) Warfarin Sodium (Coumadin) 5 Mg Tablet, 6 MG PO DAILY@17 Scheduled PRN Albuterol Sulfate (Ventolin Hfa) 108 Mcg/Act Aer, 2 PUFFS INH QID PRN for SHORTNESS OF BREATH, (Reported) Hydroxyzine HCl (Hydroxyzine HCl) 25 Mg Tablet, 25 MG PO BID PRN for ITCHING, (Reported) Nitroglycerin (Nitrostat) 0.4 Mg Subl, 0.4 MG SL NITRO PRN for ANGINA, (Reported) Allergies Coded Allergies: No Known Allergies (Verified , 03/03/17) SUELLEN SALAZAR S-3 Mar 07, 2019 15:07 MATTHEW HUGGINS MD Mar 07, 2019 15:42
== END 2019-03-07 15:17 | disposition home or self-care (01) | DRG 441 ==
LOC: M ED 16:29 → EDBD 16:29 → M ED INP 20:27 → M PCU 23:07 → M MSPAV 03-02 16:27
PROVIDERS: ADMIT Internal Medicine; ATTEND Internal Medicine
PROC: 5A1D70Z Performance of Urinary Filtration, Intermittent, Less than 6 Hours Per Day (ICD-10-PCS; principal; 2019-03-02)
DX: K72.90 Hepatic failure, unspecified without coma (principal); N18.6 End stage renal disease; I12.0 Hypertensive chronic kidney disease with stage 5 chronic kidney disease or end stage renal disease; E72.20 Disorder of urea cycle metabolism, unspecified; Z68.41 Body mass index [BMI] 40.0-44.9, adult; R47.81 Slurred speech; E78.5 Hyperlipidemia, unspecified; K70.30 Alcoholic cirrhosis of liver without ascites; G47.30 Sleep apnea, unspecified; E11.51 Type 2 diabetes mellitus with diabetic peripheral angiopathy without gangrene; I95.3 Hypotension of hemodialysis; I48.91 Unspecified atrial fibrillation; I49.5 Sick sinus syndrome; E11.22 Type 2 diabetes mellitus with diabetic chronic kidney disease; E66.01 Morbid (severe) obesity due to excess calories; Z95.0 Presence of cardiac pacemaker; Z79.82 Long term (current) use of aspirin; Z79.4 Long term (current) use of insulin; Z79.899 Other long term (current) drug therapy; Z99.2 Dependence on renal dialysis; Z89.432 Acquired absence of left foot; Z20.1 Contact with and (suspected) exposure to tuberculosis; Z79.01 Long term (current) use of anticoagulants

== ENCOUNTER 2019-03-30 11:49 | Day surgery (SDC) | payer MEDICARE, MEDICAID ==
[~2019-03-30] VITALS: Ht 188 cm; Wt 136.4 kg
[~2019-03-30 11:49] MED LIST changes: +COUM1TAB14 PO; +LACT10SO29 PO; +LIDOCAINE 1% MDV 20ML VIAL SQ PRN; +LR 1,000 ML IV ONE; +Lactulose Syrup PO; +XIFA200T2 PO; +XIFA550T PO; +ceFAZolin SOD 2 GM in IV 1 EA IV ONE
[2019-03-30] MEDS ORDERED: MIDAZOLAM INJ 2 MG/2 ML VIAL (J2250) As Ordered ONE (12:20)
[2019-03-30] MEDS ORDERED: fentaNYL 100 MCG/2 ML INJECTION (J3010) As Ordered ONE (12:20)
[2019-03-30] MEDS ORDERED: LIDOCAINE 2% INJ 100 MG/5 ML SDV (FOR ANES.) As Ordered ONE (12:20)
[2019-03-30] MEDS ORDERED: PROPOFOL 200 MG/20 ML VIAL As Ordered ONE ×2 (12:20→15:02)
[2019-03-30 12:50] LABS: INR 2.61; PROTHROMBIN TIME 27.8 SECONDS (11.8-14.0)
[2019-03-30] MEDS ORDERED: LIDOCAINE 1% SDV INJ 30 ML VIAL As Ordered ONE (13:03)
[2019-03-30] MEDS ORDERED: HEPARIN SOD (PORCINE) 5000 UNITS/ML VIAL As Ordered ONE (13:03)
[2019-03-30] MEDS ORDERED: BUPIVACAINE/EPIN 0.5% 30 ML VIAL As Ordered ONE (13:03)
[2019-03-30] MEDS ORDERED: KETAMINE HCL 200 MG/20 ML VIAL As Ordered ONE (14:00)
[2019-03-30] MEDS ORDERED: OXYC1TAB23 PO (15:45)
--- NOTE | 2019-03-30 15:50 | ROOPDOC ---
[facility] Report Of Operation Report of Operation DATE OF PROCEDURE: 03/30/19 PREPROCEDURE DIAGNOSES: ESRD on dialysis with right brachial cephalic AV fistula too tortuous and deep for cannulation. POSTPROCEDURE DIAGNOSES: Same. PROCEDURE: RUE AVF revision and superficialization. SURGEON: Noah Mattson MD ANESTHESIA: MAC and local INDICATION FOR PROCEDURE: Mr Lobo is a very pleasant 73yo gentleman with ESRD on HD with recent creation RUE brachial cephalic AVF that has matured well, but is very tortuous and difficult to cannulate. Risks, benefits and alternatives to a fistula revision with superficialization were explained and he is agreeable to proceed. Informed consent obtained. REPORT OF OPERATION: The patient was brought to the operating room in stable condition. Monitored anesthesia care and antibiotics were administered without complication. His right upper extremity was prepped and draped in a sterile fashion. A time out was performed. Local anesthesia was administered to the skin and subcutaneous tissue overlying the fistula. A vertical incision was made over the fistula with a skin knife and carried carefully through the subcutaneous tissue with bovie cautery. The cephalic vein was identified. It was carefully skeletonized proximally and distally within the incision. Branches were suture ligated and divided. The tissue was irrigated with saline. Bovie was used for hemostasis in the soft tissue. We undermined laterally to make a superficial pocket for the vein and carefully closed the pocket with vicryl creating a gentle curve in the fistula. The deep tissue was reapproximated with interrupted vicryl suture. The dermal layer was closed with running vicryl suture. The skin was closed with running subcuticular monocryl suture. Steri strips and mastisol were placed over the incision and gauze/tegaderm were placed as final dressing. The patient was allowed to awaken and taken to recovery in stable condition. ESTIMATED BLOOD LOSS: Approximately 25 mL. DRAINS: none. SPECIMENS: none. COMPLICATIONS: none. PLAN: Ok to resume home medications and coumadin. Follow up within 1 week to check fistula and incision. NOAH MATTSON MD Mar 30, 2019 15:50
[2019-03-30 17:12] VITALS: BP 106/57
== END 2019-03-30 17:20 | disposition home or self-care (01) ==
LOC: M SDC 11:49
PROVIDERS: ATTEND Surgery Vascular Surgery
DX: T82.42XA Displacement of vascular dialysis catheter, initial encounter (principal); Y74.2 Prosthetic and other implants, materials and accessory general hospital and personal-use devices associated with adverse incidents; N18.6 End stage renal disease; Z99.2 Dependence on renal dialysis; E10.22 Type 1 diabetes mellitus with diabetic chronic kidney disease; N17.8 Other acute kidney failure; G47.33 Obstructive sleep apnea (adult) (pediatric); I13.11 Hypertensive heart and chronic kidney disease without heart failure, with stage 5 chronic kidney disease, or end stage renal disease; I48.91 Unspecified atrial fibrillation; I25.2 Old myocardial infarction; E78.5 Hyperlipidemia, unspecified; Z95.0 Presence of cardiac pacemaker; K21.9 Gastro-esophageal reflux disease without esophagitis; Z87.19 Personal history of other diseases of the digestive system; D64.9 Anemia, unspecified; M19.90 Unspecified osteoarthritis, unspecified site; Z87.891 Personal history of nicotine dependence; E66.01 Morbid (severe) obesity due to excess calories; Z68.41 Body mass index [BMI] 40.0-44.9, adult; Z79.899 Other long term (current) drug therapy; Z79.82 Long term (current) use of aspirin; Z79.01 Long term (current) use of anticoagulants
CPT/HCPCS: 36415; 36832; 84132; 85610; J0690; J2250; J3010

== ENCOUNTER → 2019-05-27 | Outpatient (REF) | payer MEDICARE, MEDICAID ==
[~2019-05-27] MED LIST changes: -LIDOCAINE 1% MDV 20ML VIAL SQ PRN; -LR 1,000 ML IV ONE; +OXYC1TAB23 PO; +VITAD1000T PO; -ceFAZolin SOD 2 GM in IV 1 EA IV ONE
== END ==
LOC: M SFHCPLAZ 17:14
PROVIDERS: ATTEND Internal Medicine
DX: A31.9 Mycobacterial infection, unspecified (principal)
CPT/HCPCS: 87116; 87206; G0463

== ENCOUNTER 2019-06-04 15:17 | Inpatient (IN) | payer MEDICARE, MEDICAID ==
[2019-06-04] VITALS (10 sets, daily range): BP systolic 90–125; BP diastolic 41–73
[~2019-06-04] VITALS: Ht 188 cm; Wt 137.0 kg
[~2019-06-04 15:17] MED LIST changes: -VITAD1000T PO
[2019-06-04 15:55] LABS: HEMATOCRIT 35.2 % (42.0-52.0); HEMOGLOBIN 10.9 g/dl (13.5-17.5); MEAN CORPUSCULAR HEMOGLOBIN 33.2 pg (27.0-33.0); MEAN CORPUSCULAR VOLUME 107.3 fl (80.0-96.0); RED BLOOD COUNT 3.28 10^6/uL (4.30-6.10); WHITE BLOOD COUNT 16.5 10^3/uL (4.0-10.0)
[2019-06-04] MEDS ORDERED: cefTRIAXone SOD 2 GM in D5W MINI-BAG PLUS 50 ML IV ONE (16:00)
[2019-06-04 16:18] LABS: PLATELET COUNT, AUTOMATED 97 10^3/uL (150-450)
[2019-06-04 16:28] LABS: ALBUMIN 2.8 GM/DL (3.2-5.2); BILIRUBIN,DIRECT 0.9 MG/DL (0.0-0.2); BILIRUBIN,TOTAL 2.5 MG/DL (0.2-1.0); CALCIUM LEVEL 8.4 MG/DL (8.8-10.2); CK-MB VALUE MASS 1.7 NG/ML (<3.6); CREATININE FOR GFR 5.24 MG/DL (0.70-1.30); MB/CK RELATIVE INDEX 2.07 (< OR =4); POTASSIUM SERUM 4.2 MEQ/L (3.5-5.1); THYROID STIMULATING HORMONE 1.1 uIU/ML (0.358-3.740); TOTAL PROTEIN 7.1 GM/DL (6.4-8.2); TROPONIN I 0.14 NG/ML (< 0.10)
[2019-06-04 16:38] LABS: ANISOCYTOSIS 2+; ATYPICAL LYMPH 1 % (0-5); EOSINOPHILS 1 % (0-3); LYMPHOCYTES 7 % (16-44); METAMYELOCYTES 1 % (0-0); MONOCYTES 7 % (0-5); MYELOCYTES 2 % (0-0); NEUTROPHILS 76 % (28-66)
[2019-06-04 16:39] LABS: HYPOCHROMASIA 1+
[2019-06-04 16:40] LABS: PLATELET ESTIMATE DECREASED (NORMAL); POLYCHROMASIA 1+
--- NOTE | 2019-06-04 16:59 | REP ---
Left knee series: Four views. History: Left leg pain. Findings: Four views of the left knee demonstrate mild medial and lateral and patellofemoral osteoarthritic spurring. Vascular calcifications noted. No fracture is seen. No sunrise view is included. There is diffuse soft tissue edema. Impression: Vascular calcification and mild osteoarthritis. No acute bony abnormality on the four view knee series. Electronically Signed by Wing Bowman MD 06/04/2019 04:51 P
--- NOTE | 2019-06-04 17:05 | ECGEPIP ---
[facility] - ED Test Date: 2019-06-04 Pat Name: KATHIA NAVARRETE Department: Room: - Gender: Male Assembler: : 1945 Requested By: JIM MELGAR Order Number: [id number] Reading MD: Sangeetha Almaraz Measurements Intervals Aiken Rate: 95 P: SD: 0 QRS: 25 QRSD: 102 T: 21 QT: 361 QTc: 455 Interpretive Statements ATRIAL FIBRILLATION ABNORMAL RHYTHM ECG NSTTW abnormalities SIMILAR 03/01/19 Electronically Signed on 06-04-2019 17:04:45 EST by Sangeetha Almaraz
--- NOTE | 2019-06-04 17:23 | REPVR ---
PROCEDURE INFORMATION: Exam: US Duplex Left Lower Extremity Veins, Limited Exam date and time: 06/04/2019 5:13 PM Age: 74 years old Clinical indication: Swelling (edema) of limb; Lower extremity, left; Additional info: Lle swelling TECHNIQUE: Imaging protocol: Real-time Duplex ultrasound of the Left Lower Extremity with 2-D turner scale, color Doppler flow and spectral waveform analysis with image documentation. Limited exam focused on the left lower extremity veins. COMPARISON: None provided. FINDINGS: Limitations: Body habitus and edema. Left deep veins: Unremarkable. The common femoral, femoral, proximal profunda femoral and popliteal veins are patent without thrombus. Normal Doppler waveforms. Normal compressibility and/or augmentation response. Left superficial veins: Unremarkable. Saphenofemoral junction is patent without thrombus. Soft tissues: Unremarkable. IMPRESSION: Limited exam without deep venous thrombus demonstrated in the left lower extremity. Electronically signed by: Chapin Mcdonald On 06/04/2019 17:22:57 PM
--- NOTE | 2019-06-04 17:46 | REPVR ---
PROCEDURE INFORMATION: Exam: CT Abdomen And Pelvis Without Contrast Exam date and time: 06/04/2019 5:05 PM Age: 74 years old Clinical indication: Abnormal findings; Abnormal radiologic finding of the abdomen; Radiologic exam and body structure: XR; Additional info: Possible infiltrate on cxr, unknown source of infection TECHNIQUE: Imaging protocol: Computed tomography of the abdomen and pelvis without contrast. Radiation optimization: All CT scans at this facility use at least one of these dose optimization techniques: automated exposure control; mA and/or kV adjustment per patient size (includes targeted exams where dose is matched to clinical indication); or iterative reconstruction. COMPARISON: CT ABD PELVIS W/O CONTRAST 05/14/2016 10:06 AM FINDINGS: Limitations: Evaluation is somewhat limited by lack of IV contrast. There is also mild motion limitation as well as streak artifact from patient's arms by his sides. Liver: Grossly unremarkable. Gallbladder and bile ducts: No gallstones are evident, but ultrasound would be more sensitive. No gross biliary ductal dilatation. Pancreas: Grossly unremarkable. Spleen: Grossly unremarkable. Adrenals: Grossly unremarkable. Kidneys and ureters: There is no hydronephrosis, and no renal or ureteral calculus is identified. Previously noted bilateral renal cysts are not as well evaluated. Stomach and bowel: There is mild dilatation of some scattered small bowel loops, some of which also appear mildly thick walled. The large bowel is grossly unremarkable in appearance. Appendix: The appendix appears normal. Intraperitoneal space: There is no free air. Small to moderate ascites has developed. Vasculature: The abdominal aorta is nonaneurysmal. Atherosclerotic vascular calcifications are again present. Lymph nodes: There are a few similar, mildly prominent esther hepatis lymph nodes measuring up to 10 mm short axis. No gross new pathologic lymphadenopathy is identified. Bladder: Decompressed, grossly unremarkable. Reproductive: There appear to be bilateral scrotal hydroceles. The prostate again contains coarse calcifications. Bones/joints: Degenerative changes again involve the spine, sacroiliac joints and hips. Soft tissues: There are similar small fat containing bilateral inguinal hernias. There is increased subcutaneous edema over the bilateral flanks and buttocks. IMPRESSION: 1. Limited exam as above. 2. Small to moderate ascites, new since 05/14/16, nonspecific. 3. Mild dilatation of some scattered small bowel loops, some of which also appear mildly thick-walled. It is unclear whether this could be related to a similar process as the ascites, or if it suggests a nonspecific enteritis/ileus. 4. Increased subcutaneous edema over the bilateral flanks and buttocks. 5. Similar small fat containing bilateral inguinal hernias. 6. Apparent bilateral scrotal hydroceles. 7. Similar prominent esther hepatis and bilateral inguinal lymph nodes. COMMENT: Dedicated chest CT has been performed, and findings above the diaphragm will be reported separately. Electronically signed by: Chapin Mcdonald On 06/04/2019 17:46:12 PM
[2019-06-04] MEDS ORDERED: NOREPINEPHRINE BITARTRATE 8 MG in D5W 500 ML IV SCH (17:56)
[2019-06-04] MEDS ORDERED: NOREPINEPHRINE 4 MG/4 ML AMP As Ordered ONE (17:57)
[2019-06-04] MEDS: HumaLOG INSULIN (NovoLOG) PER UNIT SC SCH (18:00)
[2019-06-04] MEDS ORDERED: NOREPINEPHRINE BITARTRATE 8 MG in D5W 492 ML IV SCH (18:04)
[2019-06-04 18:06] LABS: INR 1.75; PROTHROMBIN TIME 20.2 SECONDS (11.8-14.0)
[2019-06-04 18:07] LABS: PARTIAL THROMBOPLASTIN TIME 41.1 SECONDS (25.0-38.4)
[2019-06-04] MEDS ORDERED: WARF-20 PO (18:08)
--- NOTE | 2019-06-04 18:08 | REPVR ---
PROCEDURE INFORMATION: Exam: CT Chest Without Contrast Exam date and time: 06/04/2019 5:05 PM Age: 74 years old Clinical indication: Abnormal findings; Abnormal radiologic exam of lung or chest; Additional info: Possible infiltrate on cxr, unknown source of infection TECHNIQUE: Imaging protocol: Computed tomography of the chest without contrast. Radiation optimization: All CT scans at this facility use at least one of these dose optimization techniques: automated exposure control; mA and/or kV adjustment per patient size (includes targeted exams where dose is matched to clinical indication); or iterative reconstruction. COMPARISON: CT Chest without contrast 08/11/2018 2:59 PM FINDINGS: Tubes, catheters and devices: Right internal jugular dialysis catheter extending into the right atrium. Pacemaker from the left. Lungs: Minimal bilateral lower lobe fibro-atelectatic change with mild diffuse patchy infiltrates bilaterally. Pleural space: Unremarkable. No pneumothorax. No pleural effusion. Heart: Unremarkable. No cardiomegaly. No pericardial effusion. Pulmonary arteries: The main pulmonary artery measures 44 mm. Aorta: The ascending thoracic aorta measures 40 mm. Lymph nodes: Unremarkable. No enlarged lymph nodes. Bones/joints: Unremarkable. No acute fracture. Soft tissues: Minimal bilateral gynecomastia. IMPRESSION: 1. Mild patchy bilateral pulmonary infiltrates which are new since 08/11/2018 and minimal bilateral lower lobe fibro-atelectatic change which is similar or slightly increased. 2. 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 3. Mild prominence of the main pulmonary artery measuring 44 mm which may be seen with pulmonary hypertension. 4. Interval placement of right internal jugular dialysis catheter into the right atrium since the prior study. Electronically signed by: Zeke Reyes On 06/04/2019 18:08:36 PM
[2019-06-04] MEDS ORDERED: VITAD1000T PO (18:10)
[2019-06-04] MEDS ORDERED: NS 500 ML IV ONE ×2 (18:15→20:00)
[2019-06-04] MEDS: ADVAIR HFA 115/21MCG INHALER INH SCH (20:00)
[2019-06-04] MEDS ORDERED: PIPERACILLIN/TAZOBACTAM SOD 2.25 GM in D5W MINI-BAG PLUS 50 ML IV SCH ×4 (20:00)
[2019-06-04] MEDS ORDERED: GLUCOSE 4 GM CHEW TABLET PO PRN (20:00)
[2019-06-04] MEDS ORDERED: DEXTROSE 50% 50 ML SYRINGE IV PRN (20:00)
[2019-06-04] MEDS ORDERED: GLUCAGON FOR INJ 1 MG VIAL (J1610) SC PRN (20:00)
--- NOTE | 2019-06-04 20:29 | HPEPDOC ---
General Date of Admission Jun 04, 2019 at 19:10 Date of Service: Jun 04, 2019 Chief Complaint The patient is a 74-year-old male who presented to the ER by EMS after hes found to be hypotensive History of Present Illness Patient is a 74-year-old -[place] male with a PMHx of ESRD on HD, ELISSA on CPAP, COPD, HTN, A. fib (on Coumadin), Pacemaker, IDDM2, who presented to the emergency room after he was found to be hypotensive while at home. EMS had a value. The patient in the field and found that he was hypotensive with systolic of 70s and was given a 250 mL bolus of normal saline prior to transport. Upon arrival to emergency room, patient was still found to have a systolic blood pressure in the 70s. Initially had responded to IV fluid hydration (500 cc), however, subsequently had a drop. Central line was placed by ER providers and Levophed was started. Patient had received a dose of ceftriaxone. Patient was also noted to have excessive watery diarrhea while in the emergency room. Up to 5 bowel movements are noted. Sample was sent for analysis. Patient also had imaging completed in emergency room that revealed the possibility of bilateral lower lobe infiltrates. Hospitalist service was called for further evaluation and treatment. Upon evaluation of patient in the emergency room, he had garbled speech and was difficult to comprehend. Patient was alert and oriented. . He reported that he had been experiencing some productive cough; was noted to be thick white sputum. Denied chest pain, palpitations or shortness of breath. Denied abdominal pain. Patient does not make any urine. Patient is unsure of any fevers or chills. Home Medications Scheduled Aspirin (Aspirin EC) 81 Mg Tab, 81 MG PO DAILY, (Reported) Calcium Carbonate (Calcium Carbonate) 500 Mg Tablet, 500 MG PO DAILY, (Reported) Cholecalciferol (Vitamin D3) (Vitamin D3) 1,000 Unit Tablet, 1,000 UNITS PO DAILY, (Reported) Cyanocobalamin (Vitamin B-12) (Vitamin B-12) 500 Mcg Tab, 1,000 MCG PO DAILY, (Reported) Gabapentin (Gabapentin) 100 Mg Cap, 100 MG PO DAILY, (Reported) AT NOON Insulin Aspart (Novolog Flexpen) 100 Unit/Ml Inj, 1 DOSE SC DAILY, (Reported) PER SLIDING SCALE WITH BREAKFAST Lidocaine/Prilocaine (Lidocaine-Prilocaine Cream) 2.5%/2.5% Cream..g., 1 APLCT TOP ASDIRECTED, (Reported) APPLY TO DIALYSIS ACCESS SITE ONE HOUR PRIOR TO DIALYSIS MON, THU, FRI Metoprolol Tartrate (Metoprolol Tartrate) 25 Mg Tab, 25 MG PO BID, (Reported) Sevelamer Carbonate (Sevelamer Carbonate) 800 Mg Tab, 1,600 MG PO WM, (Reported) Umeclidinium [place] (Incruse Ellipta) 62.5 Mcg Blst.w.dev, 1 PUFF INH DAILY, (Reported) Warfarin Sodium (Warfarin Sodium) 4 Mg Tablet, 4 MG PO QPM, (Reported) Scheduled PRN Albuterol Sulfate (Ventolin Hfa) 108 Mcg/Act Aer, 2 PUFFS INH QID PRN for SHORTN ESS OF BREATH, (Reported) Hydroxyzine HCl (Hydroxyzine HCl) 25 Mg Tablet, 25 MG PO BID PRN for ITCHING, (Reported) Nitroglycerin (Nitrostat) 0.4 Mg Subl, 0.4 MG SL NITRO PRN for ANGINA, (Reported) Allergies Coded Allergies: No Known Allergies (Verified , 03/22/19) Past Medical History Medical History ESRD on HD, ELISSA on CPAP, COPD, HTN, A. fib (on Coumadin), Pacemaker, IDDM2 Surgical History Permanent pacemaker placement Abdominal hernia repair Left partial foot amputation AV fistula placement Family History - Reviewed and is currently noncontributory to current hospitalization Social History - Patient had difficulty expressing himself, but based on the medical record. He does not have a history of tobacco, alcohol or drug use Review of Systems Other systems 10 point review of systems complete, all negative otherwise stated in HPI Vital Signs - Vitals: BP 86/57, HR 112, RR 16, Sat 96%RA, Temp 98.3F - General: Lying in bed, speaking - but very difficult to comprehend, AAOx3 - HEENT: NC, AT, R eye blindness, L pupil reactive - CVS: Tachycardic, +S1S2 - Lungs: Poor inspiratory effort bilaterally, No significant wheezing / rales / rhonchi - Abdomen: Soft, Non-distended, Non-tender - Extremities: No lower extremity edema, No calf tenderness, L foot partial amputation - Neuro: No focal motor or sensory deficit - Skin: No visible rashes Laboratory Data Labs 24H Laboratory Tests 2 06/04/19 15:28: Bedside Glucose (Misc Panel) 75L 06/04/19 15:41: Nucleated Red Blood Cells % (auto) 0.1H, Neutrophils 76H, Band Neutrophils 5, Lymphocytes (Manual) 7L, Monocytes (Manual) 7H, Eosinophils (Manual) 1, Metamyelocytes 1H, Myelocytes 2H, Atypical Lymphocytes 1, Polychromasia 1+, Hypochromasia 1+, Anisocytosis 2+, Macrocytosis 2+, Platelet Estimate DECREASED, Immature Platelet Fraction 7.3, Prothrombin Time 20.2H, Prothromb Time Interna tional Ratio 1.75, Activated Partial Thromboplast Time 41.1H, Anion Gap 8, Glomerular Filtration Rate 14.0L, Lactic Acid Level 3.1*H, Calcium Level 8.4L, Total Bilirubin 2.5H, Direct Bilirubin 0.9H, Aspartate Amino Transf (AST/SGOT) 28, Alanine Aminotransferase (ALT/SGPT) 13, Alkaline Phosphatase 132H, Ammonia 56H, Total Creatine Kinase 82, Creatine Kinase MB 1.7, Creatine Kinase MB Relative Index 2.07, Troponin I 0.14H, Total Protein 7.1, Albumin 2.8L, Albumin/Globulin Ratio 0.65L, Thyroid Stimulating Hormone (TSH) 1.100 06/04/19 15:42: POC Glucose (Misc Panel) 76, POC Sodium (Misc Panel) 135L, POC Potassium (Misc Panel) 5.1, POC Chloride (Misc Panel) 99, POC Total CO2 (Misc Panel) 29.0H, POC Blood Urea Nitrogen (Misc Panel 38H, POC Ionized Calcium (Misc Panel) 4.2L, POC Creatinine (Misc Panel) 5.5H, POC Hematocrit (Misc Panel) 37.0L 06/04/19 15:48: POC Lactate (Misc Panel) 3.05*H 06/04/19 15:53: POC pH (Misc Panel) 7.443, POC Base Excess (Misc Panel) 4.0H, POC Saturated Percent O2 (Misc) 98, POC pO2 (Misc Panel) 94.0, POC pCO2 (Misc Panel) 40.4, POC HCO3 (Misc Panel) 27.7H, POC Total CO2 (Misc Panel) 29.0H CBC/BMP Laboratory Tests 06/04/19 15:41 Microbiology Microbiology 06/04/19 Blood Culture, Received Pending 06/04/19 Gastrointestinal Tract Panel (PCR) - Final, Complete 06/04/19 Respiratory Virus Panel (PCR) (STANISLAV) - Final, Complete 06/04/19 Blood Culture, Received Pending Plan / VTE VTE Prophylaxis Ordered?: Yes Plan Plan Hypotension - possibly 2/2 septic shock, possibly 2/2 hypovolemia, less likely 2/2 adrenal insufficiency - Patient presented to the emergency room after he was found to have hypotension while at home - Patient has reported a productive cough and was noted to have profuse diarrhea while in the emergency room - On examination patient did have excessive mucus production with cough, no adventitious lung sounds were appreciated, - Leukocytosis was noted with neutrophil predominance, lactic acidosis - CT chest 06/04: 1. Mild patchy bilateral pulmonary infiltrates which are new since 08/11/2018 and minimal bilateral lower lobe fibro-atelectatic change which is similar or slightly increased. 2. Slight aneurysmal dilatation of the ascen ding thoracic aorta measuring 40 mm which is similar to the prior study. 3. Mild prominence of the main pulmonary artery measuring 44 mm which may be seen with pulmonary hypertension. 4. Interval placement of right internal jugular dialysis catheter into the right atrium since the prior study. - CT abdomen / pelvis 06/04: 1. Limited exam as above. 2. Small to moderate ascites, new since 05/14/16, nonspecific. 3. Mild dilatation of some scattered small bowel loops, some of which also appear mildly thick-walled. It is unclear whether this could be related to a similar process as the ascites, or if it suggests a nonspecific enteritis/ileus. 4. Increased subcutaneous edema over the bilateral flanks and buttocks. 5. Similar small fat containing bilateral inguinal hernias. 6. Apparent bilateral scrotal hydroceles. 7. Similar prominent esther hepatis and bilateral inguinal lymph nodes. - In the emergency room, patient was given ceftriaxone and 500 mL of normal saline as well as 250 mL of normal saline while in the field - Will check blood cultures / respiratory panel / sputum cultures / MRSA screen / GI panel / Cortisol / CVP measures - Patient had failed to respond to IV fluids and pressor support was started with Levophed - At this point, we have started broad-spectrum antibiotics with Zosyn, Azithromycin and Vancomycin; provide coverage for healthcare associated pneumonia, atypical pneumonia and MRSA given his prior history - Will continue to give IV fluids, given patient does not appear to be fluid overloaded and is saturating well on 2 L nasal cannula; will check CVP when pa tient reaches ICU - Will titrate Levophed to map of greater than 65 Lactic acidosis - See above - Will c/w IV fluids Thrombocytopenia - Appears to be at baseline - No evidence of bleeding - Will monitor coutns Anemia - likely 2/2 AOCD / ESRD - Hg is at baseline - Will continue to monitor counts Elevated troponin - likely 2/2 ESRD, possibly 2/2 demand ischemia (NSTEMI Type II) given hypotension - Currently patient denies any chest pain, shortness of breath or palpitations - EKG was reviewed and is currently unchanged from prior - is in atrial fibrillation - We will continue to trend troponins - c/w Telemetry monitoring Elevated ammonia - Reviewing the medical record shows that patients baseline ammonia has always remained elevated - Patients current ammonia level is significantly better than his baseline - Will hold off on Lactulose given his current diarrhea / hypotension Difficult to comprehend / garbled speech - At baseline patient does express some garbled speech - CT Head 06/04: Vascular calcification and minimal diffuse atrophy. No acute intracranial abnormality. There is some opacification of bilateral mastoid air cells unchanged from the March 01, 2019 study. ESRD on HD - MWF schedule - Will consult Nephrology ELISSA on CPAP - May allow home CPAP use COPD - No evidence of acute exacerbation at this time - c/w inhaled therapy as ordered HTN - Patient is currently hypotensive in the ER - Has been on metoprolol as an outpatient for A. fib (will hold at this time) A. fib - Currently patient appears to be rate controlled but still in atrial fibrillat ion - INR is sub-therapeutic - c/w full anticoagulation with Coumadin Hx of Pacemaker IDDM2 - Will start ISS Morbid obesity - Patients BMI is 38.5 - Complicating medical care DVT prophylaxis - Will c/w full anticoagulation with Coumadin SAKINA PALOMO MD Jun 04, 2019 20:29
[2019-06-04] MEDS ORDERED: EMLA CREAM 5GM (LIDOCAINE/PRILOCAINE) TOP SCH (20:30)
[2019-06-04] MEDS ORDERED: ALBUTEROL SULFATE 2.5 MG/0.5 ML INH NEB SOLN INH PRN (20:30)
[2019-06-04] MEDS: NOREPINEPHRINE BITARTRATE 16 MG in D5W 484 ML IV SCH (20:48)
[2019-06-04] MEDS ORDERED: VANCOMYCIN HCL 1,000 MG, VIAL MATE ADAPTER 1 EACH in D5W 250 ML IV ONE (21:00)
[2019-06-04] MEDS: WARFARIN SOD 4 MG TAB PO SCH (21:43)
[2019-06-04 23:14] LABS: CK-MB VALUE MASS 2.3 NG/ML (<3.6); MB/CK RELATIVE INDEX 3.24 (< OR =4); TROPONIN I 0.13 NG/ML (< 0.10)
--- NOTE | 2019-06-04 23:55 | PHACANCOPD ---
PHARMACY VANCOMYCIN DOSING Pt Demographics Demographics Patient Age:74 , Weight:136.100 , Gender: male Adjusted Body Weight Date: 06/04/19, Adjusted Body Weight: Kg Events Past 24 Hours Events Past 24 Hours: NO: Dialysis, Diuretic Therapy, Change in CrCl, Fever, Elevation in WBC, Pending Diagnostics, Pending Procedures, Other Vancomycin Vancomycin Target Ranges: 15-20 mcg/ml Vancomycin Load Y/N: Yes Load Dose Date Time Vancomycin Load Dose: 2000mg Date: 06-04 Time: 2300 Vancomycin Dose Date: 06/04/19. Current Vancomycin Dose: [HD] Intermittent Dosing?: Yes Labs Labs Item Value Date Time White Blood Count 16.5 10^3/uL H 06/04/19 1541 Glomerular Filtration Rate 14.0 L 06/04/19 1541 Creatinine 5.24 MG/DL H 06/04/19 1541 Blood Urea Nitrogen 27 MG/DL H 06/04/19 1541 Vital Signs Label Value Date Time Patient Temperature 98.7 degrees F 06/04/191999 Temperature Source Temporal 06/04/191999 Micro Microbiology 06/04/19 Gram Stain, Received Pending 06/04/19 Sputum Culture, Received Pending 06/04/19 Blood Culture, Received Pending 06/04/19 Gastrointestinal Tract Panel (PCR) - Final, Complete 06/04/19 Respiratory Virus Panel (PCR) (STANISLAV) - Final, Complete 06/04/19 Blood Culture, Received Pending Creatinine Clearance Date:06/04/19. Creatinine Clearance: [HD]. Pending Labs Random 06-05 in am Assessment and Plan Maintaining Current Dose?: Yes Reason for dose change: No Dose Change Pharmacist Note Pharmacist Note Date: 06/04/19. Pharmacist note:Will monitor and make adjustments as needed. KEN PEREIRA PHARMACY Jun 04, 2019 23:55
[2019-06-05] VITALS (61 sets, daily range): BP systolic 67–133; BP diastolic 30–85
[2019-06-05] MEDS ORDERED: VANCOMYCIN HCL 1,000 MG, VIAL MATE ADAPTER 1 EACH in D5W 250 ML IV ONE (01:00)
[2019-06-05] MEDS: HumaLOG INSULIN (NovoLOG) PER UNIT SC SCH ×5 (01:39→21:00)
[2019-06-05] MEDS: AZITHROMYCIN INJ 500 MG, VIAL MATE ADAPTER 1 EACH in D5W 250 ML IV SCH (02:58)
[2019-06-05] MEDS ORDERED: ACETAMINOPHEN TAB 650MG DOSE (2X325MG) PO PRN (05:15)
[2019-06-05] MEDS: ACETAMINOPHEN TAB 650MG DOSE (2X325MG) PO PRN (05:43)
[2019-06-05] MEDS: PIPERACILLIN/TAZOBACTAM SOD 2.25 GM in D5W MINI-BAG PLUS 50 ML IV SCH ×3 (05:43→22:25)
[2019-06-05 06:11] LABS: HEMATOCRIT 35.3 % (42.0-52.0); HEMOGLOBIN 11.3 g/dl (13.5-17.5); MEAN CORPUSCULAR VOLUME 106.3 fl (80.0-96.0); PLATELET COUNT, AUTOMATED 95 10^3/uL (150-450); RED BLOOD COUNT 3.32 10^6/uL (4.30-6.10); WHITE BLOOD COUNT 37.3 10^3/uL (4.0-10.0)
[2019-06-05 06:30] LABS: CALCIUM LEVEL 8.4 MG/DL (8.8-10.2); CREATININE FOR GFR 5.78 MG/DL (0.70-1.30); GLOMERULAR FILTRATION RATE 12.5 (>42); INR 2.02; MAGNESIUM LEVEL 1.9 MG/DL (1.8-2.4); POTASSIUM SERUM 4.1 MEQ/L (3.5-5.1); PROTHROMBIN TIME 22.6 SECONDS (11.8-14.0)
[2019-06-05 06:32] LABS: CK-MB VALUE MASS 2.5 NG/ML (<3.6); MB/CK RELATIVE INDEX 3.97 (< OR =4); TROPONIN I 0.13 NG/ML (< 0.10)
[2019-06-05] MEDS ORDERED: SODIUM CHLORIDE 0.9% 1000ML IV ONE (06:45)
[2019-06-05 06:49] LABS: LYMPHOCYTES 2 % (16-44); METAMYELOCYTES 4 % (0-0); MONOCYTES 5 % (0-5); MYELOCYTES 4 % (0-0); NEUTROPHILS 80 % (28-66); PLATELET ESTIMATE DECREASED (NORMAL)
[2019-06-05 06:50] LABS: ANISOCYTOSIS 2+; POLYCHROMASIA 1+
--- NOTE | 2019-06-05 07:46 | REP ---
CT BRAIN WITHOUT CONTRAST: HISTORY: Altered mental status. Comparison CT study, March 01, 2019. CT FINDINGS: Digital preliminary tire fabric impregnating range tender radiograph is unremarkable. The bony calvarium is intact. There is heavy vascular calcification in the distal carotid arteries. There are partially opacified mastoid air cells again noted bilaterally. This is unchanged. The visualized paranasal sinuses are otherwise clear. No intraorbital abnormality is seen. There is minimal diffuse atrophy. There is no evidence of intracranial infarction, hemorrhage, extra-axial fluid collection, or midline shift. No mass lesion is seen. IMPRESSION: Vascular calcification and minimal diffuse atrophy. No acute intracranial abnormality. There is some opacification of bilateral mastoid air cells, unchanged from the March 01, 2019 study. Electronically Signed by Wing Bowman MD 06/05/2019 08:55 A
[2019-06-05] MEDS: ADVAIR HFA 115/21MCG INHALER INH SCH (07:52)
--- NOTE | 2019-06-05 07:52 | REP ---
PORTABLE CHEST X-RAY: TWO VIEWS. HISTORY: Altered mental status. COMPARISON CHEST X-RAY: March 02, 2019 FINDINGS: A right-sided tunnel central venous catheter is seen in place, unchanged. Monitoring electrodes are noted. An electronic device overlies the right upper lung field on one of the views. A left-sided pacemaker is seen in place. Moderate cardiac enlargement is observed. There is perihilar linear fibrosis. Pulmonary vasculature appears cephalized. No pleural effusion is seen. IMPRESSION: Cardiomegaly with pacemaker and central venous catheter. Cephalization of vasculature and bilateral perihilar linear fibrosis. Electronically Signed by Wing Bowman MD 06/05/2019 08:56 A
--- NOTE | 2019-06-05 07:53 | REP ---
PELVIS, BILATERAL HIP STUDY: FIVE VIEWS. HISTORY: Leg pain. FINDINGS: Vascular calcification is noted. Bony pelvic ring appears intact. No sacral or pelvic fracture is appreciated. Femoral heads are smooth and rounded. No hip fracture is seen. AP and frog-leg views of each hip show preserved hip joint space. There is some femoral spurring on the left. IMPRESSION: Vascular calcification. Left hip osteoarthritic spurring. No fracture seen. No acute bony abnormality. Electronically Signed by Wing Bowman MD 06/05/2019 08:55 A
[2019-06-05] MEDS: CYANOCOBALAMIN 500 MCG TAB PO SCH (09:00)
[2019-06-05] MEDS: (RENVELA) SEVELAMER **CARBONate** 800 MG TAB PO SCH ×3 (09:00→19:15)
[2019-06-05] MEDS: ASPIRIN 81 MG ENTERIC TAB PO SCH (09:00)
[2019-06-05] MEDS: VITAMIN D 1,000 INTERNATIONAL UNITS TABLET PO SCH (09:00)
[2019-06-05] MEDS: OYSTER SHELL CALCIUM 500 MG TAB PO SCH (09:00)
[2019-06-05] MEDS: IPRATROPIUM 0.5MG/ALBUTEROL 2.5MG INH SOL UD 3ML (DUONEB)(J7620) NEB SCH ×4 (12:00→23:05)
[2019-06-05] MEDS ORDERED: NS 500 ML IV ONE (13:15)
[2019-06-05] MEDS: methylPREDNISolone INJ 125 MG/2 ML VIAL (J2930) IV SCH (13:59)
--- NOTE | 2019-06-05 15:19 | CR ---
DATE OF CONSULTATION: 06/05/2019 REQUESTING PHYSICIAN: Dr. Lona Gutierrez CONSULTING PHYSICIAN: Dr. Rodriguez REASON FOR CONSULTATION: Management of end-stage renal disease and volume status. CHIEF COMPLAINT: The patient presented to the hospital yesterday with hypotension and falls. HISTORY OF PRESENT ILLNESS: Mr. Irwin Lobo was a 74-year-old male with past medical history of end-stage renal disease on hemodialysis every Thursday, Thursday, Thursday, history of chronic obstructive pulmonary disease (COPD), atrial fibrillation, multiple other comorbidities as mentioned below. The patient reports that he got his regular dialysis done on Thursday. He does not know how much fluid was removed. However, after dialysis he felt weak and he actually hit his head in the car while he was being transported back to his home and at home, as reported by his who was present at the bedside in the intensive care unit (ICU), he was feeling very weak, tired and fatigue and he was falling at home as well. Finally emergency medical services (EMS) was called, and he was found to be hypotensive with systolic blood pressure in 70s. He was given 250 mL normal saline bolus and brought to the emergency room where some 500 mL normal saline boluses were given and broad-spectrum intravenous (IV) antibiotics were given. The patient also had watery diarrhea in the emergency room. Further evaluation, including blood cultures initial report showed that the patient had gram-positive cocci in clusters in blood cultures. He was admitted to ICU last night under the hospitalist service with sepsis. The patient was discussed with myself by the admitting hospitalist overnight, and decision was made to give the patient more fluid since he was having diarrhea and he was septic. He was given one or more liter of normal saline bolus. The patient is also on Levophed, initially was on 20 mcg which is being weaned down, and when I saw him in the morning, he was on 5 mcg of Levophed. When I examine the patient in the morning, he is more awake and alert today. His systolic blood pressures are in the [id number] now. He is still requiring Levophed. Lactic acid level is still slightly elevated. Patient also reported persistent cough with some phlegm as well, and a CAT scan of the chest done yesterday in the emergency room showed there were patchy infiltrates in the lung. PAST MEDICAL HISTORY: Past medical history of end-stage renal disease on hemodialysis every Thursday, Thursday, Thursday. History of morbid obesity. Obstructive sleep apnea, uses continuous positive airway pressure (CPAP) at home. History of COPD. Hypertension. Atrial fibrillation, anticoagulated with Coumadin. Status post pacemaker. Diabetes mellitus type 2, insulin dependent. 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 PAST SURGICAL HISTORY: Status post permanent pacemaker placement. History of abdominal hernia repair. Left transmetatarsal amputation. Status post arteriovenous (AV) fistula placement in the right forearm, and history of AV fistula placement in the right upper arm as well. Status post right internal jugular (IJ) tunneled hemodialysis catheter. ALLERGIES: No known drug allergies. FAMILY HISTORY: No significant family history of end-stage renal disease requiring hemodialysis. SOCIAL HISTORY: The patient lives at home with his . He denies any smoking, illicit drug abuse, or alcohol abuse. REVIEW OF SYSTEMS: Constitutional: Patient reports feeling very weak and tired. Eyes: He reports blindness in one eye. Ears, nose, and throat (ENT): He denies any dysphagia, odynophagia. Cardiovascular: He denies any chest pain or palpitation. His blood pressure was low on arrival. Respiratory: He reports persistent cough and phlegm. Gastrointestinal (GI): He denies any nausea, vomiting. Genitourinary: He reports decreased urine output. Musculoskeletal: He reports muscle weakness. ART PROFESSOR: He denies any seizures. He does report generalized weakness. Psychiatric: He denies any depression or anxiety. Endocrine: He reports history of diabetes mellitus type 2. Hematological/Oncological: He denies any easy bleeding or bruising. All other review of systems is negative. PHYSICAL EXAM: General: The patient is awake, alert, oriented times three, laying in bed. Vital signs: Temperature is 97.9 degrees Fahrenheit, blood pressure 97/66, pulse is 104, respiratory of 18, saturating 94% on nasal cannula at 2 liters. Head and neck exam: Patient is normocephalic, atraumatic, blindness in the right eye was noted. Neck is supple. No jugular venous distention (JVD). He has a right IJ tunneled hemodialysis catheter. Cardiovascular: S1, S2, tachycardia, 1+ edema of the bilateral lower extremities. Respiratory: Decreased breath sounds bilaterally at the bases with diffuse expiratory rhonchi all over the lungs. Abdomen: Soft, obese, positive bowel sounds. Mild abdominal wall edema was noted. Musculoskeletal: No clubbing or cyanosis. 1+ edema was noted. Left transmetatarsal amputation was noted. ART PROFESSOR: No focal deficit. The patient is able to communicate. He has slurred speech, and he has right eye blindness. Psychiatric: No depression or anxiety. Normal mood and affect. LAB REVIEW: CBC showed WBC of 37.3, hemoglobin is 11.3, platelets of 95. INR is 2. BMP done today morning showed sodium 135, potassium 4.1, chloride 98, bicarb 23, BUN 34, creatinine is 5.7, lactic acid is 2.4, calcium 8.4, magnesium is 1.9. MICROBIOLOGY: Blood cultures prelim sent yesterday is growing gram-positive cocci in clusters. GI panel is negative. IMAGING: CAT scan of the abdomen/pelvis was done, which showed a small to moderate ascites, increased subcutaneous emphysema, bilateral scrotal hydroceles. A CT of the chest was done yesterday, which showed mild patchy bilateral pulmonary infiltrates which are new since July 2018, aneurysmal dilatation of the ascending thoracic aorta measuring 40 mm. CURRENT INPATIENT MEDICATIONS: The patient's medications were all reviewed by myself. He was initially given azithromycin and ceftriaxone; however, he has been started on Zosyn 2.25 grams IV every 8 hourly along with the vancomycin. He is also on Levophed infusion at 5 mcg at this time. He was given normal saline boluses 500 times two overnight, and I have ordered another bolus of 500 mL today morning. He is on Tylenol as needed. I have started the patient on DuoNeb nebulizations every 4 hourly. He is on aspirin 81 mg daily, vitamin B12 1000 mcg by mouth daily. He is on insulin sliding scale. I have started the patient on Solu-Medrol 60 mg IV every 12 hourly. He is on OsCal calcium 500 mg by mouth daily. He was on Advair, which I have held right now. He is on Renvela 1600 mg by mouth with meals and Coumadin 4 mg by mouth daily. ASSESSMENT: 74-year-old male with history of end-stage renal disease on hemodialysis, history of chronic obstructive pulmonary disease (COPD), hypertension, diabetes mellitus type 2, admitted this time with sepsis secondary to gram-positive cocci bacteremia. PLAN: 1. Sepsis secondary to gram-positive cocci bacteremia. The patient has a right IJ tunneled hemodialysis catheter and he also has a patchy interstitial infiltrates on the CAT scan of the chest. It is quite possible that the source might be either pneumonia or infected dialysis catheter. He is currently on broad-spectrum IV antibiotics, including and vancomycin and Zosyn. Continue current dose at this point. He is also on Levophed; however, the requirement of Levophed is decreasing. He is currently on 5 mcg at this time. As mentioned above, I have ordered one dose of 500 mL of normal saline bolus. Once patient's blood cultures come back negative, he would need exchange of dialysis catheter as well. 2. End-stage renal disease on hemodialysis. The patient has a right IJ dialysis catheter. There is no urgent need of hemodialysis at this time. Acid-base status and electrolytes are within the acceptable range. 3. Atrial fibrillation. The patient is currently on Coumadin. Heart rate is controlled at this time. 4. Anemia in end-stage renal disease. Hemoglobin is 11.3, which is optimal. Aranesp will be started once patient starts hemodialysis. 5. Chronic kidney disease, mineral bone disease. Continue current dose of Renvela 1600 mg by mouth with meals and calcium tablets. 6. Acute COPD exacerbation. The patient has diffuse expiratory rhonchi all over the lungs. He is already covered with antibiotics. I have started him on DuoNeb nebulizations every 4 hourly, and I have also started him on Solu-Medrol 60 mg IV every 12 hourly. 7. Diabetes mellitus type 2, insulin dependent. The patient is currently on insulin sliding scale. 8. Gram-positive cocci in clusters bacteremia. The patient has a tunneled dialysis catheter. There is a risk of infective endocarditis. I have ordered a 2D echo to be done by cardiology service. Thank you for involving me in the care of this patient. I shall be happy to follow the patient along with you tomorrow morning. Total critical care time spent in the management of this patient today morning in the ICU was 70 minutes, that does not include any procedures.
[2019-06-05] MEDS: **VANCO AFTER HD** MISC XX SCH (16:00)
[2019-06-05] MEDS: WARFARIN SOD 4 MG TAB PO SCH (17:05)
[2019-06-05] MEDS: NOREPINEPHRINE BITARTRATE 16 MG in D5W 484 ML IV SCH (21:11)
--- NOTE | 2019-06-05 22:14 | IPNPDOC ---
Subjective Date Seen The patient was seen on 06/05/19. Subjective Chief Complaint/HPI Awake and alert and conversant this morning though difficult to understand speech. Says still feel very weak and has a cough which is bothering him. Objective Physical Examination General Exam: Positive: Alert, Cooperative, No Acute Distress Eye Exam: Positive: PERRLA, Conjunctiva & lids normal, EOMI; Negative: Sclera icteric ENT Exam: Positive: Atraumatic, Mucous membr. moist/pink, Pharynx Normal Neck Exam: Positive: Supple, Other (very short neck); Negative: JVD, thyromegaly Chest Exam: Positive: Clear to auscultation, Normal air movement, Other (right chest permcath) Heart Exam: Positive: Rate Normal, Regular Rhythm, Normal S1, Normal S2; Negative: Murmurs, Rubs Telemetry: Positive: No significant arrhythmia, Atrial fibrillation Abdomen Exam: Positive: Normal bowel sounds, Soft; Negative: Tenderness, Hepatospenomegaly Extremity Exam: Positive: Other (left transmetatarsal amputation); Negative: Clubbing, Cyanosis, Edema Skin Exam: Positive: Nl turgor and temperature; Negative: Rash, Breakdown Assessment /Plan Assessment This is a 74 year old male pateit with PMH of ESRD on HD thu, thu, thursday, Presented to the ED for weakness, falls and hypotension. The patient reported that he got his regular dialysis done on Thursday. However, after dialysis he felt weak and he actually hit his head in the car while he was being transported back to his home and at home, as reported by his he was feeling very weak, tired and fatigued and he was falling . Pedro Luis says he fell twice yesterday. Finally emergency medical services (EMS) was called, and he was found to be hypotensive with systolic blood pressure in 70s. In the ED patient also had watery diarrhea . He also complained of a cough with phelgm production and CT chest showed patchy infiltrates. Pateint was given small boluses total about 1.5 liters then started on levophed and started on broad spectrum antibiotics. He was admitted for sepstic shock etiology being yet to be determined. Shock combination of septic shock and hypovolemic shock. less likely 2/2 adrenal insufficiency Patient has reported a productive cough and was noted to have profuse diarrhea while in the emergency room On examination patient did have excessive mucus production with cough, no adve ntitious lung sounds were appreciated, CT chest 06/04: 1. Mild patchy bilateral pulmonary infiltrates which are new since 08/11/2018 and minimal bilateral lower lobe fibro-atelectatic change which is similar or slightly increased. 2. 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 3. Mild prominence of the main pulmonary artery measuring 44 mm which may be seen with pulmonary hypertension. 4. Interval placement of right internal jugular dialysis catheter into the right atrium since the prior study. CT abdomen / pelvis 06/04: 1. Limited exam as above. 2. Small to moderate ascites, new since 05/14/16, nonspecific. 3. Mild dilatation of some scattered small bowel loops, some of which also appear mildly thick-walled. It is unclear whether this could be related to a similar process as the ascites, or if it suggests a nonspecific enteritis/ileus. 4. Increased subcutaneous edema over the bilateral flanks and buttocks. 5. Similar small fat containing bilateral inguinal hernias. 6. Apparent bilateral scrotal hydroceles. 7. Similar prominent esther hepatis and bilateral inguinal lymph nodes. blood cultures / sputum cultures / Cortisol in progress. MRSA screen negative, respiratory panel negative, GI panel negative procalcitonin greater than 2 On Zosyn, Azithromycin and Vancomycin; provide coverage for healthcare associa chace pneumonia Levophed is being weaned. Lactic acidosis due to sepsis. Will c/w IV fluids Thrombocytopenia Appears to be at baseline No evidence of bleeding Will monitor coutns Anemia - likely 2/2 AOCD / ESRD Hg is at baseline Will continue to monitor counts Elevated troponin - likely 2/2 ESRD, possibly 2/2 demand ischemia (NSTEMI Type II) given hypotension Currently patient denies any chest pain, shortness of breath or palpitations EKG was reviewed and is currently unchanged from prior - is in atrial fibrillation We will continue to trend troponins c/w Telemetry monitoring Elevated ammonia Reviewing the medical record shows that patients baseline ammonia has always remained elevated Patients current ammonia level is significantly better than his baseline Will hold off on Lactulose given his current diarrhea / hypotension Difficult to comprehend / garbled speech At baseline patient does express some garbled speech CT Head 06/04: Vascular calcification and minimal diffuse atrophy. No acute intracranial abnormality. There is some opacification of bilateral mastoid air cells unchanged from the March 01, 2019 study. ESRD on HD MWF schedule As per Nephrology ELISSA on CPAP May allow home CPAP use COPD No evidence of acute exacerbation at this time c/w inhaled therapy as ordered HTN Patient is currently hypotensive in the ER as been on metoprolol as an outpatient for A. fib (will hold at this time) Chronic A. fib Currently patient appears to be rate controlled but still in atrial fibrillation INR is sub-therapeutic c/w full anticoagulation with Coumadin Hx of Pacemaker IDDM2 Will start ISS Morbid obesity Patients BMI is 38.5 Complicating medical care DVT prophylaxis Will c/w full anticoagulation with Coumadin Plan/VTE VTE Prophylaxis Ordered?: Yes VS, I&O, 24H, Fishbone Vital Signs/I&O Vital Signs Date Time Temp Pulse Resp B/P (MAP) Pulse Ox O2 Delivery O2 Flow Rate FiO2 06/05/19 21:29 110 20 06/05/19 21:11 97.5 71/30 94 Nasal Cannula 2.0 I&O- Last 24 Hours up to 6 AM 06/05/19 06:00 Intake Total 1690 ml Output Total 0 ml Balance 1690 ml Laboratory Data 24H LABS Laboratory Tests 2 06/04/19 22:29: Lactic Acid Followup at 4 Hours 2.4*H, Total Creatine Kinase 71, Creatine Kinase MB 2.3, Creatine Kinase MB Relative Index 3.24, Troponin I 0.13H, Methicillin- Resist S.aureus DNA PCR NOT DETECTED 06/05/19 01:35: Bedside Glucose (Misc Panel) 114H 06/05/19 05:46: Total Creatine Kinase 63, Creatine Kinase MB 2.5, Creatine Kinase MB Relative Index 3.97, Troponin I 0.13H, Immature Granulocyte % (Auto) , Neutrophils # (Auto) , Monocytes # (Auto) , Nucleated Red Blood Cells % (auto) 0.0, Neutrophils 80H, Band Neutrophils 5, Lymphocytes (Manual) 2L, Monocytes (Manual) 5, Metamyelocytes 4H, Myelocytes 4H, Polychromasia 1+, Anisocytosis 2+, Macrocytosis 2+, Platelet Estimate DECREASED, Prothrombin Time 22.6H, Prothromb Time International Ratio 2.02, Anion Gap 14, Glomerular Filtration Rate 12.5L, C alcium Level 8.4L, Magnesium Level 1.9, Random Vancomycin Level 28.0 06/05/19 05:54: Bedside Glucose (Misc Panel) 80L 06/05/19 06:10: Lactic Acid Level 2.3*H 06/05/19 10:32: Lactic Acid Followup at 4 Hours 2.4*H 06/05/19 12:22: Bedside Glucose (Misc Panel) 73L 06/05/19 19:12: Bedside Glucose (Misc Panel) 116H CBC/BMP Laboratory Tests 06/05/19 05:46 Microbiology Microbiology 06/05/19 Blood Culture, Received Pending 06/05/19 Blood Culture, Received Pending 06/04/19 Acid Fast Stain - Final, Resulted 06/04/19 Mycobacterial Culture, Resulted Pending 06/04/19 Gram Stain - Final, Resulted 06/04/19 Sputum Culture, Resulted Pending 06/04/19 Blood Culture - Preliminary, Resulted No growth after 24 hours . All specim... 06/04/19 Gastrointestinal Tract Panel (PCR) - Final, Complete 06/04/19 Respiratory Virus Panel (PCR) ([facility]ISLAV) - Final, Complete 06/04/19 Blood Culture - Preliminary, Resulted QUAN GARZA MD Jun 05, 2019 22:14
[2019-06-06] VITALS (100 sets, daily range): BP systolic 67–131; BP diastolic 40–96
[2019-06-06] MEDS: AZITHROMYCIN INJ 500 MG, VIAL MATE ADAPTER 1 EACH in D5W 250 ML IV SCH (01:33)
[2019-06-06] MEDS: methylPREDNISolone INJ 125 MG/2 ML VIAL (J2930) IV SCH ×2 (01:34→13:56)
[2019-06-06] MEDS: IPRATROPIUM 0.5MG/ALBUTEROL 2.5MG INH SOL UD 3ML (DUONEB)(J7620) NEB SCH ×6 (03:25→23:46)
[2019-06-06 04:45] LABS: HEMATOCRIT 33.6 % (42.0-52.0); HEMOGLOBIN 11.1 g/dl (13.5-17.5); MEAN CORPUSCULAR HEMOGLOBIN 34.2 pg (27.0-33.0); MEAN CORPUSCULAR VOLUME 103.4 fl (80.0-96.0); RED BLOOD COUNT 3.25 10^6/uL (4.30-6.10)
[2019-06-06 04:46] LABS: PLATELET COUNT, AUTOMATED 98 10^3/uL (150-450); WHITE BLOOD COUNT 32.7 10^3/uL (4.0-10.0)
[2019-06-06 04:55] LABS: INR 3.06; PROTHROMBIN TIME 31.6 SECONDS (11.8-14.0)
[2019-06-06 05:18] LABS: CALCIUM LEVEL 8.1 MG/DL (8.8-10.2); CREATININE FOR GFR 6.66 MG/DL (0.70-1.30); GLOMERULAR FILTRATION RATE 10.6 (>42); MAGNESIUM LEVEL 2.3 MG/DL (1.8-2.4); POTASSIUM SERUM 4.5 MEQ/L (3.5-5.1)
[2019-06-06 05:21] LABS: ANISOCYTOSIS 1+; LYMPHOCYTES 2 % (16-44); METAMYELOCYTES 3 % (0-0); MONOCYTES 4 % (0-5); NEUTROPHILS 86 % (28-66); PLATELET CLUMPS SMALL AMT; PLATELET ESTIMATE MARKED DECREASE (NORMAL); POLYCHROMASIA 1+
[2019-06-06] MEDS: PIPERACILLIN/TAZOBACTAM SOD 2.25 GM in D5W MINI-BAG PLUS 50 ML IV SCH ×2 (06:25→13:56)
[2019-06-06] MEDS ORDERED: DIGOXIN INJ 0.5 MG/2 ML AMP (J1160) IV ONE (08:00)
[2019-06-06] MEDS: (RENVELA) SEVELAMER **CARBONate** 800 MG TAB PO SCH ×3 (08:06→17:51)
[2019-06-06] MEDS: ASPIRIN 81 MG ENTERIC TAB PO SCH (08:06)
[2019-06-06] MEDS: OYSTER SHELL CALCIUM 500 MG TAB PO SCH (08:06)
[2019-06-06] MEDS: HumaLOG INSULIN (NovoLOG) PER UNIT SC SCH ×4 (08:06→21:00)
[2019-06-06] MEDS: VITAMIN D 1,000 INTERNATIONAL UNITS TABLET PO SCH (08:06)
[2019-06-06] MEDS: CYANOCOBALAMIN 500 MCG TAB PO SCH (08:06)
[2019-06-06 10:56] LABS: CORTISOL BASELINE 67.1 UG/DL (4.3-22.4)
--- NOTE | 2019-06-06 11:30 | IPNPDOC ---
Subjective Date Seen The patient was seen on 06/06/19. Subjective Chief Complaint/HPI Patient more confused today unable to comprehend his speech. Remains of levophed. says he has not been able to see for [place] past week worse than usual. feels its his left eye that is the problem now. His right eye was already bad. Was able to have breakfast by himself. No fever or chills, no diarrhea. Objective Physical Examination General Exam: Positive: Cooperative, No Acute Distress, Other (confused, somnolent) Eye Exam: Positive: PERRLA, Conjunctiva & lids normal, EOMI; Negative: Sclera icteric ENT Exam: Positive: Atraumatic, Mucous membr. moist/pink, Pharynx Normal Neck Exam: Positive: Supple, Other (very short neck); Negative: JVD, thyromegaly Chest Exam: Positive: Clear to auscultation, Normal air movement, Other (right chest permcath) Heart Exam: Positive: Tachycardic, Irregular Rhythm, Normal S1, Normal S2; Negative: Murmurs, Rubs Telemetry: Positive: Atrial fibrillation Abdomen Exam: Positive: Normal bowel sounds, Soft; Negative: Tenderness, Hepatospenomegaly Extremity Exam: Positive: Other (left transmetatarsal amputation); Negative: Clubbing, Cyanosis, Edema Skin Exam: Positive: Nl turgor and temperature; Negative: Rash, Breakdown Assessment /Plan Assessment This is a 74 year old male patient with PMH of ESRD on HD thu, thu, thursday, Presented to the ED for weakness, falls and hypotension. The patient reported that he got his regular dialysis done on Thursday. However, after dialysis he felt weak and he actually hit his head in the car while he was being transported back to his home and at home, as reported by his he was feeling very weak, tired and fatigued and he was falling . Patient says he fell twice yesterday. Finally emergency medical services (EMS) was called, and he was found to be hypotensive with systolic blood pressure in 70s. In the ED patient also had watery diarrhea . He also complained of a cough with phelgm production and CT chest showed patchy infiltrates. Patient was given small boluses total about 1.5 liters then started on levophed and started on broad spectrum antibiotics. He was admitted for septic shock etiology being yet to be determined. Radiology: CT chest 06/04: 1. Mild patchy bilateral pulmonary infiltrates which are new since 08/11/2018 and minimal bilateral lower lobe fibro-atelectatic change which is similar or slightly increased. 2. 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 3. Mild prominence of the main pulmonary artery measuring 44 mm which may be seen with pulmonary hypertension. 4. Interval placement of right internal jugular dialysis catheter into the right atrium since the prior study. CT abdomen / pelvis 06/04: 1. Limited exam as above. 2. Small to moderate ascites, new since 05/14/16, nonspecific. 3. Mild dilatation of some scattered small bowel loops, some of which also appear mildly thick-walled. It is unclear whether this could be related to a similar process as the ascites, or if it suggests a nonspecific enteritis/ileus. 4. Increased subcutaneous edema over the bilateral flanks and buttocks. 5. Similar small fat containing bilateral inguinal hernias. 6. Apparent bilateral scrotal hydroceles. 7. Similar prominent esther hepatis and bilateral inguinal lymph nodes. Shock combination of septic shock and hypovolemic shock. Patient has reported a productive cough and was noted to have profuse diarrhea while in the emergency room On examination patient did have excessive mucus production with cough, no adventitious lung sounds were appreciated, blood cultures / sputum cultures / Cortisol in progress. MRSA screen negative, respiratory panel negative, GI panel negative procalcitonin greater than 2 On Zosyn, Azithromycin and Vancomycin; provide coverage for healthcare associated pneumonia remains on levohed blood cultures positive for staph aureus. Staph aureus bacterimia echo ordered perm cath needs to be addressed, pat does seem to have a good AVF. will need to be evaluated for Infective endocarditis consulted ID. Acute metabolic encephalopathy as per at bedside his speech is altered for 2 days and he has been having conversations with people who are not in the the room for the past week. possibly due to sepsis CT head at neg on admission. Will repeat one today Cannot have an MRI as has pacemaker did eat by himself this am. Lactic acidosis due to sepsis. Will c/w IV fluids remains on levophed. Difficult to comprehend / garbled speech At baseline patient does express some garbled speech CT Head 06/04: Vascular calcification and minimal diffuse atrophy. No acute intracranial abnormality. There is some opacification of bilateral mastoid air cells unchanged from the March 01, 2019 study. Elevated ammonia Reviewing the medical record shows that patients baseline ammonia has always remained elevated Patients current ammonia level is significantly better than his baseline Elevated troponin - likely 2/2 ESRD, possibly 2/2 demand ischemia (NSTEMI Type II) given hypotension Currently patient denies any chest pain, shortness of breath or palpitations EKG was reviewed and is currently unchanged from prior - is in atrial fibrillation c/w Telemetry monitoring Thrombocytopenia Appears to be at baseline No evidence of bleeding Will monitor counts Anemia - likely 2/2 AOCD / ESRD Hg is at baseline Will continue to monitor counts ESRD on HD MWF schedule As per Nephrology ELISSA on CPAP May allow home CPAP use COPD No evidence of acute exacerbation at this time c/w inhaled therapy as ordered HTN Patient is currently hypotensive in the ER as been on metoprolol as an outpatient for A. fib (will hold at this time) Chronic A. fib with RVR coumadin held dig 1 dose given Hx of Pacemaker IDDM2 Will start ISS Morbid obesity Patients BMI is 38.5 Complicating medical care DVT prophylaxis Will c/w full anticoagulation with Coumadin Plan/VTE VTE Prophylaxis Ordered?: Yes VS, I&O, 24H, Fishbone Vital Signs/I&O Vital Signs Date Time Temp Pulse Resp B/P (MAP) Pulse Ox O2 Delivery O2 Flow Rate FiO2 06/06/19 10:46 98 93/53 (66) 06/06/19 07:52 91 Room Air 06/06/19 07:37 2.0 06/06/19 07:25 98.8 18 I&O- Last 24 Hours up to 6 AM 06/06/19 06:00 Intake Total 2504.9 ml Output Total 0 ml Balance 2504.9 ml Laboratory Data 24H LABS Laboratory Tests 2 06/05/19 12:22: Bedside Glucose (Misc Panel) 73L 06/05/19 19:12: Bedside Glucose (Misc Panel) 116H 06/05/19 21:09: Bedside Glucose (Misc Panel) 129H 06/06/19 04:26: Immature Granulocyte % (Auto) , Neutrophils # (Auto) , Nucleated Red Blood Cells % (auto) 0.0, Neutrophils 86H, Band Neutrophils 5, Lymphocytes (Manual) 2L, Monocytes (Manual) 4, Metamyelocytes 3H, Polychromasia 1+, Anisocytosis 1+, Macrocytosis 2+, Platelet Estimate MARKED DECREASE, Clumped Platelets SMALL AMT, Immature Platelet Fraction 9.6, Prothrombin Time 31.6H, Prothromb Time International Ratio 3.06, Anion Gap 12, Glomerular Filtration Rate 10.6L, Calcium Level 8.1L, Magnesium Level 2.3, Random Vancomycin Level 20.9 CBC/BMP Laboratory Tests 06/06/19 04:26 Microbiology Microbiology 06/05/19 Blood Culture - Preliminary, Resulted 06/05/19 Blood Culture - Preliminary, Resulted No growth after 24 hours . All specim... 06/04/19 Acid Fast Stain - Final, Resulted 06/04/19 Mycobacterial Culture, Resulted Pending 06/04/19 Gram Stain - Final, Resulted 06/04/19 Sputum Culture, Resulted Pending 06/04/19 Blood Culture - Preliminary, Resulted 06/04/19 Gastrointestinal Tract Panel (PCR) - Final, Complete 06/04/19 Respiratory Virus Panel (PCR) ([facility]ISLAV) - Final, Complete 06/04/19 Blood Culture - Preliminary, Resulted Staphylococcus Aureus QUAN GARZA MD Jun 06, 2019 11:30
--- NOTE | 2019-06-06 13:51 | CR.PDOC ---
General Date of Consultation: Jun 06, [address] Mattson. HPI: 74 year old M admitted to the hospital 06/04/19 related to hypotension currently being treated for sepsis and hypovolemia. Vascular surgery was con sulted for PermCath removal, blood culture positive for staph aureus. The patient has dysarthric speech is awake and responding to questions, denies Headache, Chest Pain, Shortness of breath, cough, palpitations, abdominal pain. Medical History ESRD on HD, ELISSA on CPAP, COPD, HTN, A. fib (on Coumadin), Pacemaker, IDDM2 Surgical History Permanent pacemaker placement Abdominal hernia repair Left partial foot amputation AV fistula placement RUE SOCHX: Nonsmoker PE: GEN: 74 yo M, No acute distress. Alert and responding to questions. HEENT: Normocephalic, atraumatic. Moist mucous membranes. CHEST: Regular rate and rhythm, +S1, +S2 LUNGS: Clear to auscultation bilaterally. No wheezes, rales, or rhonchi. ABD: Round, soft, non-tender, non-distended. EXT: Patient with PermCath right chest. Dressing intact. Right upper extremity AV fistula with palpable thrill, Dr. Mattson has marked the fistula for access for dialysis. NEURO: Alert and responsive. Speech is dysarthric. No focal deficits appreciated. A&P: 1. ESRD/hemodialysis. The patient is reviewed and examined as per Dr. Mattson. Patient with PermCath right chest. Blood culture positive for staph aureus. Infectious disease is consulted. Antibiotics as per medicine/infectious disease. IV Vanco/Zosyn/azithromycin. Plan is for PermCath removal as per Dr. Mattson. The patient's right upper extremity AV fistula is ok to use and is marked with a skin marking pen for access for dialysis. Continue to closely monitor. Vital Signs/I&O Vital Signs Date Time Temp Pulse Resp B/P (MAP) Pulse Ox O2 Delivery O2 Flow Rate FiO2 06/06/19 12:03 100 116/58 (77) 06/06/19 07:52 91 Room Air 06/06/19 07:37 2.0 06/06/19 07:25 98.8 18 I&O- Last 24 Hours up to 6 AM 06/06/19 06:00 Intake Total 2504.9 ml Output Total 0 ml Balance 2504.9 ml Laboratory Data Labs 24H Laboratory Tests 2 06/05/19 19:12: Bedside Glucose (Misc Panel) 116H 06/05/19 21:09: Bedside Glucose (Misc Panel) 129H 06/06/19 04:26: Immature Granulocyte % (Auto) , Neutrophils # (Auto) , Nucleated Red Blood Cells % (auto) 0.0, Neutrophils 86H, Band Neutrophils 5, Lymphocytes (Manual) 2L, Monocytes (Manual) 4, Metamyelocytes 3H, Polychromasia 1+, Anisocytosis 1+, Macrocytosis 2+, Platelet Estimate MARKED DECREASE, Clumped Platelets SMALL AMT, Immature Platelet Fraction 9.6, Prothrombin Time 31.6H, Prothromb Time International Ratio 3.06, Anion Gap 12, Glomerular Filtration Rate 10.6L, Calcium Level 8.1L, Magnesium Level 2.3, Random Vancomycin Level 20.9 06/06/19 12:10: Bedside Glucose (Misc Panel) 151H CBC/BMP Laboratory Tests 06/06/19 04:26 Microbiology Microbiology 06/05/19 Blood Culture - Preliminary, Resulted 06/05/19 Blood Culture - Preliminary, Resulted No growth after 24 hours . All specim... 06/04/19 Acid Fast Stain - Final, Resulted 06/04/19 Mycobacterial Culture, Resulted Pending 06/04/19 Gram Stain - Final, Resulted 06/04/19 Sputum Culture, Resulted Pending 06/04/19 Blood Culture - Preliminary, Resulted 06/04/19 Gastrointestinal Tract Panel (PCR) - Final, Complete 06/04/19 Respiratory Virus Panel (PCR) ([facility]ISLAV) - Final, Complete 06/04/19 Blood Culture - Preliminary, Resulted Staphylococcus Aureus Allergies Coded Allergies: No Known Allergies (Verified , 03/22/19) Home Medications Scheduled Aspirin (Aspirin EC) 81 Mg Tab, 81 MG PO DAILY, (Reported) Calcium Carbonate (Calcium Carbonate) 500 Mg Tablet, 500 MG PO DAILY, (Reported) Cholecalciferol (Vitamin D3) (Vitamin D3) 1,000 Unit Tablet, 1,000 UNITS PO DAILY, (Reported) Cyanocobalamin (Vitamin B-12) (Vitamin B-12) 500 Mcg Tab, 1,000 MCG PO DAILY, (Reported) Gabapentin (Gabapentin) 100 Mg Cap, 100 MG PO DAILY, (Reported) AT NOON Insulin Aspart (Novolog Flexpen) 100 Unit/Ml Inj, 1 DOSE SC DAILY, (Reported) PER SLIDING SCALE WITH BREAKFAST Lidocaine/Prilocaine (Lidocaine-Prilocaine Cream) 2.5%/2.5% Cream..g., 1 APLCT TOP ASDIRECTED, (Reported) APPLY TO DIALYSIS ACCESS SITE ONE HOUR PRIOR TO DIALYSIS MON, WED, FRI Metoprolol Tartrate (Metoprolol Tartrate) 25 Mg Tab, 25 MG PO BID, (Reported) Sevelamer Carbonate (Sevelamer Carbonate) 800 Mg Tab, 1,600 MG PO WM, (Reported) Umeclidinium [place] [facility] (Incruse Ellipta) 62.5 Mcg Blst.w.dev, 1 PUFF INH DAILY, (Reported) Warfarin Sodium (Warfarin Sodium) 4 Mg Tablet, 4 MG PO QPM, (Reported) Scheduled PRN Albuterol Sulfate (Ventolin Hfa) 108 Mcg/Act Aer, 2 PUFFS INH QID PRN for SHORTNESS OF BREATH, (Reported) Hydroxyzine HCl (Hydroxyzine HCl) 25 Mg Tablet, 25 MG PO BID PRN for ITCHING, (Reported) Nitroglycerin (Nitrostat) 0.4 Mg Subl, 0.4 MG SL NITRO PRN for ANGINA, (Reported) Betty Hernandez Jun 06, 2019 13:51
[2019-06-06] MEDS ORDERED: VANCOMYCIN HCL 500 MG in D5W MINI-BAG PLUS 100 ML IV ONE (16:00)
[2019-06-06] MEDS ORDERED: LIDOCAINE W/EPINEPHRINE 1% 20ML VIAL As Ordered ONE (17:47)
--- NOTE | 2019-06-06 18:34 | ECHO ---
DATE OF PROCEDURE: 06/06/2019 REFERRING PHYSICIAN: Dr. Rodriguez INDICATION: Sepsis. Height 188 cm, weight 136 kg. DIMENSIONS: IVS: 1.9 LV: 4.6 LVPW: 1.3 LA: 4.5 Aorta: 4.0 IVC: 3.4 FINDINGS: The study is a very limited technical quality with poor visualization in uncooperative patient. Underlying rhythm is atrial fibrillation. Left ventricle is normal size. There is moderate left ventricle hypertrophy, more pronounced in intraventricular septum. Overall left LV systolic function is hyperdynamic and LVEF is estimated at 70-75%. There is septal wall motion abnormality. Right ventricle is severely dilated and globally hypokinetic. Both atria are severely enlarged. There are echo artifacts apparent in right-sided heart chambers, likely representing pacemaker wire. Aortic valve is heavily sclerotic, and there is prominent restriction of cusp mobility. Based on 2-D imaging, I assume approximately moderately severe stenosis. Even though no distinct vegetations are seen, due to the thickening and calcification in the valve, they can be easily missed. There are also very prominent degenerative abnormalities of mitral valve with mitral annular calcifications and thickening of especially anterior mitral leaflet. No definite vegetations are visualized. Tricuspid valve was not well seen. Pulmonic valve was also poorly visualized but grossly appeared normal. No pericardial effusion is noted. Inferior vena cava is severely dilated, and there is no appreciable collapse with inspiration indicative of extremely elevated central venous pressure. Aortic root is dilated at 4.0 cm. Aortic arch and abdominal aorta were not well seen. Doppler interrogation of aortic valve reveals no insufficiency and probably moderate to moderately severe stenosis with mean gradient 19 mmHg. Calculated aortic valve area was only 0.8 centimeters square, which likely represents overestimation of its severity. There is mild mitral insufficiency and no significant mitral stenosis. There is severe tricuspid insufficiency. Calculated pulmonary artery pressure is at a minimum around 50 mmHg, that would correspond to moderate pulmonary hypertension. Pulmonic valve exhibits mild insufficiency. Evaluation of diastolic function is inconclusive due to underlying irregular rhythm. CONCLUSIONS: 1. Study is of markedly limited technical quality. 2. Normal left ventricular (LV) size with moderate left ventricular hypertrophy (LVH) and hyperdynamic LV systolic function, estimated left ventricular ejection fraction (LVEF) 70-75%. Septal wall motion abnormality of uncertain etiology. 3. Severely dilated and globally hypokinetic right ventricle. 4. Severe biatrial enlargement. 5. Prominent sclerosis of aortic valve with restriction of cusp mobility and overall probably moderately severe aortic stenosis (mean gradient 19 mmHg). 6. Degenerative abnormalities of mitral valve with mitral annular calcifications and thickening of mitral leaflets. 7. Severe tricuspid insufficiency. 8. Very high central venous pressure. 9. At least moderate pulmonary hypertension. 10. No definite vegetations are seen, but they could be easily missed on either aortic or mitral valves. COMMENT: If high clinical suspicion for bacterial endocarditis, then transesophageal echocardiogram (LISA) will certainly provide more anatomical resolution. MTDD
--- NOTE | 2019-06-06 19:21 | ROOPDOC ---
[facility] Report Of Operation Report of Operation DATE OF PROCEDURE: 06/06/19 PREPROCEDURE DIAGNOSES: Bacteremia POSTPROCEDURE DIAGNOSES: Same PROCEDURE: Removal right IJ PermCath SURGEON: Noah Mattson MD ANESTHESIA: Local anesthesia 8 mL 1% lidocaine with epi. INDICATION FOR PROCEDURE: Mr. nelson is a very pleasant 74-year-old gentleman with end-stage renal disease with recent admission for bacteremia and concern for infection of right IJ PermCath. He has a brachiocephalic fistula in the right upper extremity, but it had not been used yet used for dialysis. We plan to do a right upper extremity AV fistulogram and angioplasty prior to starting use of the fistula for dialysis, but with bacteremia, we asked the dialysis nu rses to try to access the fistula today and it was successful. Therefore, we will remove the right IJ PermCath and give him a line holiday. If his fistula continues to work well, we will not need to replace the PermCath which would be very beneficial. Risks benefits and alternatives to PermCath removal were explained to the patient and his . The patient is confused and cannot sign for himself at the moment but he did give verbal consent, and his gave informed consent and we had a nurse witness. REPORT OF OPERATION: The patient's right neck and chest including the PermCath were prepped and draped in a sterile fashion. A timeout was performed. Local anesthesia was a digital computer systems analyst to skin and subcutaneous tissue around the catheter. Prolene sutures were removed from the exit site. Blunt dissection was used to loosen the cuff from subcutaneous tissue. Pressure set over the jugular access site and the catheter was removed. The catheter was inspected, and found to be completely intact including the cuff and the tip, and no portion was left behind. Pressure was held for 10 minutes for good hemostasis and sterile dressings were applied. The patient tolerated the procedure well without difficulty. ESTIMATED BLOOD LOSS: Approximately 2 mL. COMPLICATIONS: None. PLAN: Continue dialyzing patient with right upper extremity brachiocephalic AV fistula. If this continues to be successful, we do not need to replace the PermCath which would be beneficial to the patient. The longer we can give him a line holiday, the faster his bacteremia might clear. The patient was scheduled for a fistulogram and angioplasty tomorrow, which we have postponed, and we will see how he does with dialysis over the next few days and decide if he will still need a fistulogram before he goes for dialysis at the outpatient center or if cannulation is easy and further intervention is not needed at this time. NOAH MATTSON MD Jun 06, 2019 19:21
[2019-06-06] MEDS: NOREPINEPHRINE BITARTRATE 16 MG in D5W 484 ML IV SCH (23:23)
[2019-06-07] VITALS (59 sets, daily range): BP systolic 72–150; BP diastolic 42–79
[2019-06-07] MEDS: methylPREDNISolone INJ 125 MG/2 ML VIAL (J2930) IV SCH ×2 (01:27→12:55)
[2019-06-07] MEDS: IPRATROPIUM 0.5MG/ALBUTEROL 2.5MG INH SOL UD 3ML (DUONEB)(J7620) NEB SCH ×3 (03:17→11:34)
[2019-06-07 03:20] LABS: ABG BASE EXCESS -2.9 (-2.0-2.0); ABG HCO3 22.8 MEQ/L (22.0-26.0); ABG O2 SATURATION 95.4 % (95.0-99.0); ABG PARTIAL PRESSURE CO2 43.4 mmHg (35.0-45.0); ABG PARTIAL PRESSURE O2 82.9 mmHg (75.0-100.0); ABG TOTAL CO2 24.2 MEQ/L (23.0-31.0); ABG pH (ARTERIAL) 7.339 UNITS (7.350-7.450)
--- NOTE | 2019-06-07 04:50 | IPN ---
DATE: 06/06/2019 SUBJECTIVE: The patient was seen and examined at the bedside today morning in the ICU. He remains on very low dose of Levophed at one 1 mcg. The patient was in atrial fibrillation with rapid ventricular response in the morning, One dose of digoxin was given, which helped control the heart rate. Today is the patient's regular day of dialysis. He still has persistent leukocytosis. Blood cultures sent initially on admission have come back positive for Staphylococcus aureus. OBJECTIVE: Vital signs: Temperature is 98.8 degrees Fahrenheit, blood pressure 91/51, pulse is 94, respiratory of 18, saturating 92% on room air. Intake and output: There is no urine output recorded. Weight in the bed scale is 136 kg. PHYSICAL EXAMINATION: General: The patient is awake, laying in bed, able to communicate and follows commands. Head and neck exam: The patient has right eye blindness. Mucous membranes are moist. Neck is supple. There is no jugular venous distension (JVD). He has a right internal jugular tunneled hemodialysis catheter. Cardiovascular: S1, S2, tachycardia, 2+ edema of the bilateral lower extremities. There is edema in the thighs as well. Respiratory: Chest is clear to auscultation bilaterally, anteriorly and bilateral lung bases have mild expiratory rhonchi. Abdomen: Soft, obese, positive bowel sounds. Mild abdominal wall edema was noted. Musculoskeletal: The patient has left transmetatarsal side amputation. ANIMATOR: The patient has slurred speech, otherwise he follows commands and moves extremities. LABORATORY REVIEW: Complete blood count (CBC) showed white blood count (WBC) 32.7, hemoglobin is 11.1, platelets are 98. Basic metabolic panel (BMP) showed sodium 135, potassium 4.5, chloride 98, bicarb 25, BUN 50, creatinine is 6.6, calcium 8.1. Random vancomycin level is 20.9 today. Microbiology preliminary blood cultures sent on 06/04/2019 is positive for Staphylococcus aureus. CURRENT INPATIENT MEDICATIONS: The patient's medications were all reviewed by myself. The patient continues to be on a Levophed infusion, IV Zosyn has been stopped. He continues to be on vancomycin. He continues to be on Solu-Medrol 60 mg IV q. 12 hourly. No other change in the medications today as compared with yesterday. ASSESSMENT/PLAN: 1. End-stage renal disease. Today is the patient's regular day of dialysis. He will be dialyzed at the bedside. I will try to remove some fluid since he has developed edema with aggressive IV fluid hydration during sepsis. 2. Sepsis secondary to Staphylococcus aureus bacteremia, most likely source is either right internal jugular tunneled dialysis catheter or pneumonia. I have discussed with the vascular surgery. The patient will have the catheter removed by vascular surgery today. We shall try to use the right upper arm AV fistula, which has matured and is ready to use. Continue vancomycin. Zosyn has been stopped. Septic shock. 3. Atrial fibrillation. The patient was in rapid ventricular rate in the morning. He was given a dose of digoxin. Metoprolol is on hold because of hypotension. 4. Acute chronic obstructive pulmonary disease (COPD) exacerbation. The patient was started on DuoNebs and IV steroids yesterday. Steroids will be changed to oral prednisone tomorrow morning. 5. Chronic diastolic congestive heart failure. The patient's latest echocardiogram showed LV ejection fraction of around 70% with the severely dilated and hypokinetic right ventricle. Volume status is being optimized with dialysis if his blood pressure tolerates that. 6. Access for dialysis. The patient has a right IJ tunneled hemodialysis catheter which is likely infected. It will be removed by vascular surgery. I have used the ultrasound and marked the right upper arm AV fistula for a needle access during dialysis today. Total critical care time spent in the management of this patient today morning in the ICU was 45 minutes, that does not include any procedures.
[2019-06-07 05:02] LABS: HEMATOCRIT 32.9 % (42.0-52.0); HEMOGLOBIN 10.9 g/dl (13.5-17.5); MEAN CORPUSCULAR HEMOGLOBIN 34.2 pg (27.0-33.0); MEAN CORPUSCULAR HGB CONC 33.1 g/dl (32.0-36.5); MEAN CORPUSCULAR VOLUME 103.1 fl (80.0-96.0); PLATELET COUNT, AUTOMATED 102 10^3/uL (150-450); RED BLOOD COUNT 3.19 10^6/uL (4.30-6.10)
[2019-06-07 05:13] LABS: INR 3.2; PROTHROMBIN TIME 32.7 SECONDS (11.8-14.0)
[2019-06-07 05:16] LABS: LYMPHOCYTES 2 % (16-44); METAMYELOCYTES 3 % (0-0); MONOCYTES 1 % (0-5); NEUTROPHILS 89 % (28-66)
[2019-06-07 05:17] LABS: ANISOCYTOSIS 1+; PLATELET ESTIMATE NORMAL (NORMAL)
[2019-06-07 05:18] LABS: POLYCHROMASIA 1+
[2019-06-07 05:22] LABS: ERYTHROCYTE SEDIMENTATION RATE 44 mm/hr (0-20)
[2019-06-07 05:33] LABS: C REACTIVE PROTEIN QUANTITATIV 10.7 MG/DL (0.00-0.30); CALCIUM LEVEL 8.6 MG/DL (8.8-10.2); CREATININE FOR GFR 5.58 MG/DL (0.70-1.30); MAGNESIUM LEVEL 2.1 MG/DL (1.8-2.4); POTASSIUM SERUM 4.9 MEQ/L (3.5-5.1)
[2019-06-07] MEDS: HumaLOG INSULIN (NovoLOG) PER UNIT SC SCH ×4 (07:30→21:00)
[2019-06-07] MEDS ORDERED: DIGOXIN INJ 0.5 MG/2 ML AMP (J1160) IV ONE (08:00)
[2019-06-07] MEDS: (RENVELA) SEVELAMER **CARBONate** 800 MG TAB PO SCH ×3 (08:00→18:00)
[2019-06-07 08:12] LABS: VANCOMYCIN RANDOM 21.5 UG/ML
--- NOTE | 2019-06-07 09:50 | REP ---
CT brain without contrast: History: Evaluate for stroke. Confusion. Incoherent speech. Comparison head CT study June 04, 2019. CT findings: Digital preliminary child development consultant radiograph is unremarkable. Bony calvarium remains intact. There is heavy vascular calcification in the distal carotid arteries again seen. Mastoid sinus opacification is again noted unchanged. There is generalized volume loss on soft-tissue window settings. There is no evidence of intracranial hemorrhage. There is no visible new cortical or white matter infarct. No mass, extra-axial fluid collection, or midline shift is appreciated. Impression: Vascular calcifications and mild generalized atrophy again noted. No acute intracranial finding. Electronically Signed by Wing Bowman MD 06/07/2019 09:59 A
--- NOTE | 2019-06-07 10:08 | IPNPDOC ---
Text Note Date of Service The patient was seen on 06/07/19. NOTE Vascular surgery Dr Mattson. HPI: 74 year old M admitted to the hospital 06/04/19 related to hypotension currently being treated for sepsis and hypovolemia. S/P PermCath removal 06/07/19. The patient's right upper extremity AV fistula was marked as per Dr. Mattson, this was accessed for dialysis 06/06/19. The patient is currently resting in bed, Alert and responding to questions. Dialysis Dressing is intact over the right upper extremity AV fistula, there is a palpable thrill. PermCath is removed from the right chest, dressing is intact, no drainage noted.. ESRD/hemodialysis. The patient is reviewed and examined as per Dr. Mattson. Status post removal of PermCath right chest. Blood culture positive for staph aureus. Infectious disease is consulted. Antibiotics as per medicine/infectious disease. IV Vanco/Zosyn/azithromycin. The patient's right upper extremity AV fistula was accessed for dialysis 06/06/19. Continue to closely monitor. VS,Fishbone, I+O VS, Fishbone, I+O Laboratory Tests 06/07/19 04:50 Vital Signs Date Time Temp Pulse Resp B/P (MAP) Pulse Ox O2 Delivery O2 Flow Rate FiO2 06/07/19 06:53 126 06/07/19 06:30 112/53 (72) 96 Nasal Cannula 1.0 06/07/19 04:00 99.0 18 I&O- Last 24 Hours up to 6 AM 06/07/19 06:00 Intake Total 889.8 ml Output Total 1600 ml Balance -710.2 ml Betty Hernandez Jun 07, 2019 10:08
[2019-06-07] MEDS: ASPIRIN 81 MG ENTERIC TAB PO SCH (10:26)
[2019-06-07] MEDS: CYANOCOBALAMIN 500 MCG TAB PO SCH (10:27)
[2019-06-07] MEDS: VITAMIN D 1,000 INTERNATIONAL UNITS TABLET PO SCH (10:32)
[2019-06-07] MEDS: OYSTER SHELL CALCIUM 500 MG TAB PO SCH (10:32)
--- NOTE | 2019-06-07 11:13 | IPNPDOC ---
Subjective Date Seen The patient was seen on 06/07/19. Subjective Chief Complaint/HPI This am he was sleeping. I woke him up but still somnolent could not interact much or follow commands. As per overnight nurse he was awake and alert from 8 pm, had dinner by himself . all nigh t was awake then fell asleep about 4 am. Still with garbled speech with stuttering and accent. As per Dr Thakkar who saw him last night and is his primary at the clinic his speech was at baseline. No fever or chills, Perm cath removed yesterday. In afib rate uncontrolled. BP better overnight . Levophed is being weaned. Objective Physical Examination General Exam: Positive: Cooperative, No Acute Distress, Other (confused) Eye Exam: Positive: PERRLA, Conjunctiva & lids normal, EOMI; Negative: Sclera icteric ENT Exam: Positive: Atraumatic, Mucous membr. moist/pink, Pharynx Normal Neck Exam: Positive: Supple, Other (very short neck); Negative: JVD, thyromegaly Chest Exam: Positive: Clear to auscultation, Diminished, Other (right chest permcath) Heart Exam: Positive: Tachycardic, Irregular Rhythm, Normal S1, Normal S2; Negative: Murmurs, Rubs Telemetry: Positive: Atrial fibrillation Abdomen Exam: Positive: Normal bowel sounds, Soft; Negative: Tenderness, Hepatospenomegaly Extremity Exam: Positive: Other (left transmetatarsal amputation); Negative: Clubbing, Cyanosis, Edema Skin Exam: Positive: Nl turgor and temperature; Negative: Rash, Breakdown Neuro Exam: Positive: Other (garbled speech but fluent) Psych Exam: Positive: Other (confused, somnolent) Assessment /Plan Assessment This is a 74 year old male patient with PMH of ESRD on HD thu, thu, thursday, Presented to the ED for weakness, falls and hypotension. The patient reported that he got his regular dialysis done on Thursday. However, after dialysis he felt weak and he actually hit his head in the car while he was being transported back to his home and at home, as reported by his he was feeling very weak, tired and fatigued and he was falling . Patient says he fell twice yesterday. Finally emergency medical services (EMS) was called, and he was found to be hypotensive with systolic blood pressure in 70s. In the ED patient also had watery diarrhea . He also complained of a cough with phelgm production and CT chest showed patch y infiltrates. Patient was given small boluses total about 1.5 liters then started on levophed and started on broad spectrum antibiotics. He was admitted for septic shock etiology being yet to be determined. Radiology: CT chest 06/04: 1. Mild patchy bilateral pulmonary infiltrates which are new sin ce 08/11/2018 and minimal bilateral lower lobe fibro-atelectatic change which is similar or slightly increased. 2. 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 3. Mild prominence of the main pulmonary artery measuring 44 mm which may be seen with pulmonary hypertension. 4. Interval placement of right internal jugular dialysis catheter into the right atrium since the prior study. CT abdomen / pelvis 06/04: 1. Limited exam as above. 2. Small to moderate ascites, new since 05/14/16, nonspecific. 3. Mild dilatation of some scattered small bowel loops, some of which also appear mildly thick-walled. It is unclear whether this could be related to a similar process as the ascites, or if it suggests a nonspecific enteritis/ileus. 4. Increased subcutaneous edema over the bilateral flanks and buttocks. 5. Similar small fat containing bilateral inguinal hernias. 6. Apparent bilateral scrotal hydroceles. 7. Similar prominent esther hepatis and bilateral inguinal lymph nodes. Shock combination of septic shock and hypovolemic shock. Patient has reported a productive cough and was noted to have profuse diarrhea while in the emergency room On examination patient did have excessive mucus production with cough, no adventitious lung sounds were appreciated, blood cultures / sputum cultures MRSA screen negative, respiratory panel negative, GI panel negative procalcitonin greater than 2 On Vancomycin remains on levohed blood cultures positive for MRSA / bottle and culture from the permcath port also growing gram variable rods MRSA bacteremia Most probably from Perc cath infection Per cath removed on 06/06/19 echo did not show any definite vegetations. will need to be evaluated for Infective endocarditis. May need LISA consulted ID. On vancomycin Acute metabolic encephalopathy as per at bedside his speech is altered for 2 days and he has been having conversations with people who are not in the the room for the past week. possibly due to sepsis CT head at neg on admission. Will repeat one today Cannot have an MRI as has pacemaker did eat by himself this am. Lactic acidosis due to sepsis. remains on levophed. Difficult to comprehend / garbled speech At baseline patient does express some garbled speech CT Head 06/04: Vascular calcification and minimal diffuse atrophy. No acute intracranial abnormality. There is some opacification of bilateral mastoid air cells unchanged from the March 01, 2019 study. Chronic A. fib with RVR rate uncontrolled given dig. will not slow it down too much . INR high, coumadin held. Hx of Pacemaker Elevated troponin - likely 2/2 ESRD, possibly 2/2 demand ischemia (NSTEMI Type II) given hypotension Currently patient denies any chest pain, shortness of breath or palpitations EKG was reviewed and is currently unchanged from prior - is in atrial fibril lation c/w Telemetry monitoring Thrombocytopenia Appears to be at baseline No evidence of bleeding Will monitor counts Anemia - likely 2/2 AOCD / ESRD Hg is at baseline Will continue to monitor counts ESRD on HD MWF schedule As per Nephrology ELISSA on CPAP with moderate pulmonary hypertension and chronic right heart failure. May allow home CPAP use COPD with mod pul hypertension with chronic right heart failure with exacerbation c/w inhaled therapy as ordered also on solumedrol. HTN Patient is currently hypotensive as been on metoprolol as an outpatient for A. fib (will hold at this time) IDDM2 Will start ISS Morbid obesity Patients BMI is 38.5 Complicating medical care Plan/VTE VTE Prophylaxis Ordered?: Yes VS, I&O, 24H, Fishbone Vital Signs/I&O Vital Signs Date Time Temp Pulse Resp B/P (MAP) Pulse Ox O2 Delivery O2 Flow Rate FiO2 06/07/19 04:30 127 115/69 (84) 96 Nasal Cannula 1.0 06/07/19 04:00 99.0 18 I&O- Last 24 Hours up to 6 AM 06/07/19 06:00 Intake Total 593.8 ml Output Total 1600 ml Balance -1006.2 ml Laboratory Data 24H LABS Laboratory Tests 2 06/06/19 12:10: Bedside Glucose (Misc Panel) 151H 06/06/19 17:29: Bedside Glucose (Misc Panel) 134H 06/06/19 21:22: Bedside Glucose (Misc Panel) 160H 06/07/19 02:49: Blood Gas Bicarbonate Standard 22.0, Arterial Blood pH 7.339L, Arterial Blood Partial Pressure CO2 43.4, Arterial Blood Partial Pressure O2 82.9, Arterial Blood Total CO2 24.2, Arterial Blood HCO3 22.8, Arterial Blood Base Excess - 2.9L, Arterial Blood Oxygen Saturation 95.4 06/07/19 04:50: Nucleated Red Blood Cells % (auto) 0.0, Prothrombin Time 32.7H, Prothromb Time International Ratio 3.20 CBC/BMP Laboratory Tests 06/07/19 04:50 Microbiology Microbiology 06/07/19 Blood Culture, Received Pending 06/06/19 Blood Culture, Received Pending 06/06/19 Blood Culture, Received Pending 06/05/19 Blood Culture - Preliminary, Resulted 06/05/19 Blood Culture - Preliminary, Resulted 06/04/19 Acid Fast Stain - Final, Resulted 06/04/19 Mycobacterial Culture, Resulted Pending 06/04/19 Gram Stain - Final, Resulted 06/04/19 Sputum Culture, Resulted Pending 06/04/19 Blood Culture - Preliminary, Resulted 06/04/19 Gastrointestinal Tract Panel (PCR) - Final, Complete 06/04/19 Respiratory Virus Panel (PCR) (STANISLAV) - Final, Complete 06/04/19 Blood Culture - Preliminary, Resulted Staphylococcus Aureus QUAN GARZA MD Jun 07, 2019 05:33
[2019-06-07] MEDS ORDERED: SODIUM CHLORIDE 0.9% INJ 10 ML SYR IV PRN (14:15)
[2019-06-07] MEDS: **VANCO AFTER HD** MISC XX SCH (16:00)
--- NOTE | 2019-06-07 16:30 | IPN ---
DATE OF SERVICE: 06/07/2019 Irwin is seen and examined this morning at the bedside in the intensive care unit. He was sleeping at the time of my visit and even when aroused was not interactive nor able to follow simple commands. His Perma-Cath was removed yesterday and he was dialyzed via his right upper extremity fistula yesterday with 2-3 mcg of Levophed support and 1.6 liters of fluid removed. Per chart review, patient had dinner yesterday without assistance and was up most of the night. This morning he is seen on Levophed pressor support at 2 mcg. Vital Signs: Temperature 97.4, pulse 115, respiratory rate 16, blood pressure 133/60, saturating 96% on 1 liter nasal cannula. Intake yesterday was 900. Dialysis yesterday removed 1600. Weight in the bed scale today is not recorded. General: The patient is seen lying in bed in the intensive care unit (ICU) drowsy but arousable to verbal and tactile stimulus. Does not follow commands at time of my visit and briefly made eye contact. Neck is supple. Noted PermaCath was removed. Jugular veins are not distended. Heart sounds are tachycardiac and irregular. There is no leg edema. Respiratory: There is mild tachypnea and symmetric air entry. No crackles or rales. Abdomen is soft and nontender. There are bowel sounds. Telemetry shows atrial fibrillation (AFib). Extremities: Left transmetatarsal amputation. No leg edema. Skin: Normal turgor and temperature. Arteriovenous access fistula in the right upper extremity is patent with thrill and bruit . LABS: White count 26, hemoglobin 10.9, platelet 102. Sodium 134, potassium 4.9, CRP 10.7. Blood cultures from 06/06/2019 show gram variable rods, sources from dialysis catheter. Head CT 06/07/2019 CT head did not show any acute findings. INPATIENT MEDICATIONS: He is on Levophed at 2 mcg. Her received vancomycin 500 mg IV times one. His vancomycin random level is therapeutic at 21. He received digoxin 0.25 mg IV times one dosel. His remainder of medications are unchanged from prior. PROBLEMS: 1. Septic shock. The patient continues on Levophed at 2 mcg. His blood cultures from 06/05/2019 grew Staphylococcus aureus. His blood culture yesterday from the dialysis catheter grew gram variable rods. His dialysis catheter has been removed. His fistula is now in use. Infectious Disease's consultation is pending. I feel he is likely to require transesophageal echocardiogram (LISA) to evaluate for infective endocarditis. I see he is also receiving IV steroids and given his underlying infectious/sepsis state, I suggest that these should be weaned. 2. End-stage renal disease on hemodialysis. Infected dialysis catheter was removed on 06/06/2019. The patient is now being dialyzed via his fistula. He was dialyzed yesterday with 1.6 liters of fluid removed, which he tolerated fairly well and continues on low dose pressor dependence (Levophed at 2 mcg). Next dialysis treatment will be on 06/08/2019 3. Chronic atrial fibrillation with rapid ventricular response (RVR). Beta-kajal is on hold because of his hypotension. He received a dose of IV digoxin. His international normalized ratio (INR) is slightly supratherapeutic. He is anticoagulated with Coumadin. 4. Anemia of chronic renal failure. Hemoglobin is optimal. Aranesp will be resumed as needed. 5. Metabolic encephalopathy. The patient does have garbled speech at baseline. He did not communicate at the time of my visit today. I note his CT head did not have any acute findings. [facility]
--- NOTE | 2019-06-07 17:10 | IPNPDOC ---
Date Seen The patient was seen on 06/07/19. Progress Note Pt seen and examined. His permcath site is c/d/i and no longer oozing. I re- marked his AVF on his RUE for dialysis access tomorrow. If it continues to have good flows, will not replace permcath and this should be very beneficial in light of bacteremia. Will follow. VS, I&O, 24H, Fishbone Vital Signs/I&O Vital Signs Date Time Temp Pulse Resp B/P (MAP) Pulse Ox O2 Delivery O2 Flow Rate FiO2 06/07/19 17:00 109/55 06/07/19 16:00 97.4 86 16 97 Nasal Cannula 1.0 I&O- Last 24 Hours up to 6 AM 06/07/19 06:00 Intake Total 889.8 ml Output Total 1600 ml Balance -710.2 ml Laboratory Data 24H LABS Laboratory Tests 2 06/06/19 17:29: Bedside Glucose (Misc Panel) 134H 06/06/19 21:22: Bedside Glucose (Misc Panel) 160H 06/07/19 02:49: Blood Gas Bicarbonate Standard 22.0, Arterial Blood pH 7.339L, Arterial Blood Partial Pressure CO2 43.4, Arterial Blood Partial Pressure O2 82.9, Arterial Blood Total CO2 24.2, Arterial Blood HCO3 22.8, Arterial Blood Base Excess - 2.9L, Arterial Blood Oxygen Saturation 95.4 06/07/19 04:50: Nucleated Red Blood Cells % (auto) 0.0, Neutrophils 89H, Band Neutrophils 5, Lymphocytes (Manual) 2L, Monocytes (Manual) 1, Metamyelocytes 3H, Polychromasia 1+, Anisocytosis 1+, Ovalocytes , Platelet Estimate NORMAL, Erythrocyte Sedimentation Rate 44H, Prothrombin Time 32.7H, Prothromb Time International Ratio 3.20, Anion Gap 9, Glomerular Filtration Rate 13.0L, Calcium Level 8.6L, Magnesium Level 2.1, C-Reactive Protein, Quantitative 10.70H, Random Vancomycin Level 21.5 06/07/19 09:21: Bedside Glucose (Misc Panel) 183H 06/07/19 12:24: Bedside Glucose (Misc Panel) 217H 06/07/19 16:49: Bedside Glucose (Misc Panel) 175H CBC/BMP Laboratory Tests 06/07/19 04:50 Microbiology Microbiology 06/07/19 Blood Culture, Received Pending 06/06/19 Blood Culture - Preliminary, Resulted 06/06/19 Blood Culture - Preliminary, Resulted 06/05/19 Blood Culture - Preliminary, Resulted Staphylococcus Aureus 06/05/19 Blood Culture - Preliminary, Resulted Staphylococcus Aureus 06/04/19 Acid Fast Stain - Final, Resulted 06/04/19 Mycobacterial Culture, Resulted Pending 06/04/19 Gram Stain - Final, Complete 06/04/19 Sputum Culture - Final, Complete 06/04/19 Blood Culture - Preliminary, Resulted Staphylococcus Aureus 06/04/19 Gastrointestinal Tract Panel (PCR) - Final, Complete 06/04/19 Respiratory Virus Panel (PCR) (STANISLAV) - Final, Complete 06/04/19 Blood Culture - Final, Complete Staph.aureus Methicillin Resis NOAH KAM MD Jun 07, 2019 17:10
[2019-06-07] MEDS: ADVAIR HFA 115/21MCG INHALER INH SCH (18:27)
--- NOTE | 2019-06-07 21:41 | IPN ---
DATE: 06/07/2019 Mr. Lobo was seen this morning, he was still very lethargic. He wakes up when called but his speech is dysarthric and difficult to understand. At times, he makes sense but at others he does not. He has a history of sleep apnea and is not using his C-PAP, he is on 1 liter oxygen, mostly for nighttime due to desaturation. He does not have any complaints. Temperature is 97.8, pulse 84, respirations 18, blood pressure 95/68, oxygen saturation 97% on 1 liter nasal cannula. He has been on IV vancomycin, also on methylprednisolone 60 mg IV every 12 hours. He continues on low dose Levophed. LABORATORY DATA: White count 26, hemoglobin 10.9, hematocrit 32.9, platelets 102, 89% neutrophils, 5% bands, 2% lymphocytes, 3% metamyelocytes. His white count is down from 37.3 a couple of days ago. ESR 44. Sodium 134, potassium 4.9, chloride 98, bicarbonate 27, BUN 46, creatinine 5.58, glucose 189, calcium 8.6, magnesium 2.1, CRP 10.7. Vancomycin random level today was 21.5. MRSA screen PCR was not detected , but his blood cultures are all growing Staphylococcus aureus with his initial one on 06/04/2019 being positive for MRSA. STANISLAV to vancomycin was less than 0.5. Transthoracic echocardiogram was not of good quality but did not show any vegetation. He has pulmonary hypertension and biatrial enlargement as well as severe right ventricular enlargement. Sputum culture had normal vickey present. AFB smear is negative. Cultures pending. Head CT showed vascular calcification and generalized atrophy with no acute intracranial bleeding. No new ischemic lesions. PHYSICAL EXAMINATION: Temperature is 97.8, pulse 84, irregular, blood pressure 95/68. Heart: Normal S1, S2, irregular with a holosystolic ejection murmur 2/6 at the left upper sternal border. Lungs: Clear anteriorly, diminished at the bases. Abdomen: Morbidly obese, distended with a large umbilical hernia. Extremities: Trace edema. He has an ulcer on the posterior aspect of the left leg measuring about 7x2 cm, it is clean, has granulation tissue no DC and Optifoam dressing, not the source of infection. Hemodialysis catheter in his right upper chest was removed. There is no purulent discharge. No bleeding. Right arm AV fistula does not have any evidence of infection. IMPRESSION: 1. MRSA bacteremia with septic shock on Levophed. Most likely source was dialysis catheter that has been removed on 06/06/2019. The patient had persistent blood cultures positive on 06/06/2019 but the patient still had the port. On 06/07/2019, his cultures were repeated and will repeat tomorrow until negative documented Order LISA Endocarditis needs to be ruled out. 2. 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 End-stage renal disease. Hemodialysis was removed and will be using the AV fistula for now for dialysis. 4. Encephalopathy, most likely related to bacteremia and sepsis. No new head CT findings. The patient cannot have an MRI has a pacemaker, there is concern that he may have septic emboli if he has endocarditis. PLAN: Schedule transesophageal echocardiogram to rule out endocarditis. Repeat blood cultures tomorrow. The patient will need at least 4-6 weeks of IV antibiotics no matter what the echo shows as he has a complicated bacteremia due to the fact that he has a pacemaker. NOMI
[2019-06-08] VITALS (46 sets, daily range): BP systolic 82–147; BP diastolic 50–87
[2019-06-08] MEDS: NOREPINEPHRINE BITARTRATE 16 MG in D5W 484 ML IV SCH ×2 (00:27→21:00)
[2019-06-08] MEDS: SODIUM CHLORIDE 0.9% INJ 10 ML SYR IV SCH ×4 (00:27→21:58)
[2019-06-08] MEDS: methylPREDNISolone INJ 125 MG/2 ML VIAL (J2930) IV SCH ×2 (01:15→12:28)
[2019-06-08 05:17] LABS: BASO % 0.1 % (0.0-1.0); HEMATOCRIT 34.9 % (42.0-52.0); HEMOGLOBIN 11.5 g/dl (13.5-17.5); LYMPH # 0.6 10^3/uL (1.5-5.0); LYMPH % 2.8 % (24.0-44.0); MEAN CORPUSCULAR HEMOGLOBIN 33.9 pg (27.0-33.0); MEAN CORPUSCULAR VOLUME 102.9 fl (80.0-96.0); MONO # 0.7 10^3/uL (0.0-0.8); MONO % 3.3 % (0.0-5.0); NEUTROPHILS # 18.8 10^3/uL (1.5-8.5); NEUTROPHILS % 93.4 % (36.0-66.0); RED BLOOD COUNT 3.39 10^6/uL (4.30-6.10); WHITE BLOOD COUNT 20.2 10^3/uL (4.0-10.0)
[2019-06-08 05:19] LABS: PLATELET COUNT, AUTOMATED 86 10^3/uL (150-450)
[2019-06-08 05:37] LABS: INR 3.24; PROTHROMBIN TIME 33.1 SECONDS (11.8-14.0)
[2019-06-08 05:45] LABS: CALCIUM LEVEL 8.6 MG/DL (8.8-10.2); CREATININE FOR GFR 6.65 MG/DL (0.70-1.30); GLOMERULAR FILTRATION RATE 10.6 (>42); MAGNESIUM LEVEL 2.5 MG/DL (1.8-2.4); POTASSIUM SERUM 4.8 MEQ/L (3.5-5.1); VANCOMYCIN RANDOM 20.9 UG/ML
[2019-06-08] MEDS: CYANOCOBALAMIN 500 MCG TAB PO SCH (06:01)
[2019-06-08] MEDS: VITAMIN D 1,000 INTERNATIONAL UNITS TABLET PO SCH (06:01)
[2019-06-08] MEDS: OYSTER SHELL CALCIUM 500 MG TAB PO SCH (06:01)
[2019-06-08] MEDS: ASPIRIN 81 MG ENTERIC TAB PO SCH (06:01)
[2019-06-08] MEDS: (RENVELA) SEVELAMER **CARBONate** 800 MG TAB PO SCH ×3 (06:02→18:00)
[2019-06-08] MEDS: HumaLOG INSULIN (NovoLOG) PER UNIT SC SCH ×4 (06:30→21:00)
--- NOTE | 2019-06-08 08:58 | IPNPDOC ---
Text Note Date of Service The patient was seen on 06/08/19. NOTE Vascular surgery Dr Mattson. HPI: 74 year old M admitted to the hospital 06/04/19 related to hypotension currently being treated for sepsis and hypovolemia. S/P PermCath removal 06/07/19. The patient's right upper extremity AV fistula has been marked as per Dr. Mattson, this was accessed for dialysis this a.m. The patient is currently resting in bed, Alert and responding to questions. Dry dressing is placed over right chest area where PermCath was removed. ESRD/hemodialysis. The patient is reviewed and examined as per Dr. Mattson. Status post removal of PermCath right chest. The area is cleaned this morning, Dry dressing is applied. Blood culture positive for staph aureus. Infectious disease is consulted. Antibiotics as per medicine/infectious disease. IV Vanco/Zosyn/azithromycin. The patient's right upper extremity AV fistula was accessed for dialysis 06/08/19 with no complications. Continue to closely monitor. VS,Ganeshbone, I+O VS, Ganeshbone, I+O Laboratory Tests 06/08/19 05:09 Vital Signs Date Time Temp Pulse Resp B/P (MAP) Pulse Ox O2 Delivery O2 Flow Rate FiO2 06/08/19 07:00 86 105/60 (75) Room Air 06/08/19 06:30 95 06/08/19 04:00 97.6 20 06/08/19 04:00 1.0 I&O- Last 24 Hours up to 6 AM 06/08/19 06:00 Intake Total 919.29 ml Output Total 0 ml Balance 919.29 ml Betty Hernandez Jun 08, 2019 08:58
[2019-06-08] MEDS: ADVAIR HFA 115/21MCG INHALER INH SCH ×2 (11:15→20:37)
--- NOTE | 2019-06-08 13:14 | IPNPDOC ---
Subjective Date Seen The patient was seen on 06/08/19. Subjective Chief Complaint/HPI remains confused and delirious, levoped has been tapered down further, Getting bedside HD tolerating it. Will need LISA. No fever or chills, Objective Physical Examination General Exam: Positive: Cooperative, No Acute Distress, Other (confused) Eye Exam: Positive: PERRLA, Conjunctiva & lids normal, EOMI; Negative: Sclera icteric ENT Exam: Positive: Atraumatic, Mucous membr. moist/pink, Pharynx Normal Neck Exam: Positive: Supple, Other (very short neck); Negative: JVD, thyromegaly Chest Exam: Positive: Clear to auscultation, Diminished, Other (right chest permcath) Heart Exam: Positive: Tachycardic, Irregular Rhythm, Normal S1, Normal S2; Negative: Murmurs, Rubs Telemetry: Positive: Atrial fibrillation Abdomen Exam: Positive: Normal bowel sounds, Soft; Negative: Tenderness, Hepatospenomegaly Extremity Exam: Positive: Other (left transmetatarsal amputation); Negative: Clubbing, Cyanosis, Edema Skin Exam: Positive: Nl turgor and temperature; Negative: Rash, Breakdown Neuro Exam: Positive: Other (garbled speech but fluent) Psych Exam: Positive: Other (confused, somnolent) Assessment /Plan Assessment This is a 74 year old male patient with PMH of ESRD on HD thu, thu, thursday, Presented to the ED for weakness, falls and hypotension. The patient reported that he got his regular dialysis done on Thursday. However, after dialysis he felt weak and he actually hit his head in the car while he was being transported back to his home and at home, as reported by his he was feeling very weak, tired and fatigued and he was falling . Patient says he fell twice yesterday. Finally emergency medical services (EMS) was called, and he was found to be hypotensive with systolic blood pressure in 70s. In the ED patient also had watery diarrhea . He also complained of a cough with phelgm production and CT chest showed patchy infiltrates. Patient was given small boluses total about 1.5 liters then started on levophed and started on broad spectrum antibiotics. He was admitted for septic shock etiology being yet to be determined. Radiology: CT chest 06/04: 1. Mild patchy bilateral pulmonary infiltrates which are new since 08/11/2018 and minimal bilateral lower lobe fibro-atelectatic change which is similar or slightly increased. 2. 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 3. Mild prominence of the main pulmonary artery measuring 44 mm which may be seen with pulmonary hypertension. 4. Interval placement of right internal jugular dialysis catheter into the right atrium since the prior study. CT abdomen / pelvis 06/04: 1. Limited exam as above. 2. Small to moderate ascites, new since 05/14/16, nonspecific. 3. Mild dilatation of some scattered small bowel loops, some of which also appear mildly thick-walled. It is unclear whether this could be related to a similar process as the ascites, or if it suggests a nonspecific enteritis/ileus. 4. Increased subcutaneous edema over the bilateral flanks and buttocks. 5. Similar small fat containing bilateral inguinal hernias. 6. Apparent bilateral scrotal hydroceles. 7. Similar prominent esther hepatis and bilateral inguinal lymph nodes. Shock combination of septic shock and hypovolemic shock. due to MRSA bacterimia from percath infection. procalcitonin greater than 2 On Vancomycin remains on levohed blood cultures positive for MRSA 08/19 bottle and culture from the permcath port also growing gram variable rods Complicated MRSA bacteremia with pacemaker in place. Most probably from Perc cath infection Per cath removed on 06/06/19 echo did not show any definite vegetations. will need to be evaluated for Infective endocarditis. LISA ordered On vancomycin Acute metabolic encephalopathy due to sepsis also there is a possibility of septic emboli. CT head at neg on admission. repeat one negative Cannot have an MRI as has pacemaker did eat by himself this am. Difficult to comprehend / garbled speech At baseline patient does express some garbled speech But now worse due to delirium CT head x 2 negative for acute events. Chronic A. fib with RVR rate uncontrolled given dig. will not slow it down too much . INR high, coumadin held. Hx of Pacemaker Elevated troponin - likely 2/2 ESRD, possibly 2/2 demand ischemia (NSTEMI Type II) given hypotension Currently patient denies any chest pain, shortness of breath or palpitations EKG was reviewed and is currently unchanged from prior - is in atrial fibrillation c/w Telemetry monitoring Thrombocytopenia Appears to be at baseline No evidence of bleeding Will monitor counts Anemia - likely 2/2 AOCD / ESRD Hg is at baseline Will continue to monitor counts ESRD on HD MWF schedule As per Nephrology ELISSA on CPAP with moderate pulmonary hypertension and chronic right heart failure. non complaint COPD with mod pul hypertension with chronic right heart failure with exacerbation c/w inhaled therapy as ordered also on solumedrol. HTN Patient is currently hypotensive as been on metoprolol as an outpatient for AMartha oseguera (will hold at this time) IDDM2 Will start ISS Morbid obesity Patients BMI is 38.5 Complicating medical care Plan/VTE VTE Prophylaxis Ordered?: Yes VS, I&O, 24H, Fishbone Vital Signs/I&O Vital Signs Date Time Temp Pulse Resp B/P (MAP) Pulse Ox O2 Delivery O2 Flow Rate FiO2 06/08/19 10:30 83 34 126/65 (85) 94 Room Air 06/08/19 08:00 96.4 06/08/19 04:00 1.0 I&O- Last 24 Hours up to 6 AM 06/08/19 06:00 Intake Total 919.29 ml Output Total 0 ml Balance 919.29 ml Laboratory Data 24H LABS Laboratory Tests 2 06/07/19 16:49: Bedside Glucose (Misc Panel) 175H 06/07/19 20:51: Bedside Glucose (Misc Panel) 144H 06/08/19 05:09: Immature Granulocyte % (Auto) 0.4, Neutrophils (%) (Auto) 93.4H, Lymphocytes (%) (Auto) 2.8L, Monocytes (%) (Auto) 3.3, Eosinophils (%) (Auto) 0.0, Basophils (%) (Auto) 0.1, Neutrophils # (Auto) 18.8H, Lymphocytes # (Auto) 0.6L, Monocytes # (Auto) 0.7, Eosinophils # (Auto) 0.0, Basophils # (Auto) 0.0, Nucleated Red Blood Cells % (auto) 0.0, Immature Platelet Fraction 7.4, Prothrombin Time 33.1H, Prothromb Time International Ratio 3.24, Anion Gap 10, Glomerular Filtration Rate 10.6L, Calcium Level 8.6L, Magnesium Level 2.5H, Random Vancomycin Level 20.9 06/08/19 06:09: Bedside Glucose (Misc Panel) 145H 06/08/19 11:58: Bedside Glucose (Misc Panel) 143H CBC/BMP Laboratory Tests 06/08/19 05:09 Microbiology Microbiology 06/08/19 Blood Culture, Received Pending 06/07/19 Blood Culture - Preliminary, Resulted No growth after 24 hours . All specim... 06/06/19 Blood Culture - Preliminary, Resulted 06/06/19 Blood Culture - Preliminary, Resulted 06/05/19 Blood Culture - Final, Complete Staph.aureus Methicillin Resis 06/05/19 Blood Culture - Final, Complete Staph.aureus Methicillin Resis 06/04/19 Acid Fast Stain - Final, Resulted 06/04/19 Mycobacterial Culture, Resulted Pending 06/04/19 Gram Stain - Final, Complete 06/04/19 Sputum Culture - Final, Complete 06/04/19 Blood Culture - Final, Complete Staph.aureus Methicillin Resis 06/04/19 Gastrointestinal Tract Panel (PCR) - Final, Complete 06/04/19 Respiratory Virus Panel (PCR) (STANISLAV) - Final, Complete 06/04/19 Blood Culture - Final, Complete Staph.aureus Methicillin Resis QUAN GARZA MD Jun 08, 2019 13:14
--- NOTE | 2019-06-08 14:49 | IPN ---
DATE: 06/08/2019 SUBJECTIVE: Irwin is seen and examined this morning in the intensive care unit (ICU) receiving his maintenance dialysis unit. Today, I found him to be fairly close to his baseline mentation. He recognized me by name, greeted ,me, was able to tell me where he is and what is happening and I found his speech to be his usual chronic stutter. There is no issues reported with his dialysis treatment. He was on one mcg of Levophed and he is saturating well on room air. Temperature 96.4, pulse 88, respiratory rate 21, blood pressure 126/65, saturating 94% on room air. Intake yesterday was 770. Dialysis today removed 1400. Weight in the bed scale today was 137 kg. General: The patient is seen in the intensive care unit receiving his dialysis treatment awake, alert, oriented to person, place, situation, chronic dysarthric and difficult to understand speech, which to me sounds like his usual. His right eye is opacified. He is seen on room air. His neck is supple. His jugular veins were not elevated. Heart sounds are irregular S1, S2. There is a systolic murmur. Lungs are clear anteriorly. No crackle rale or rhonchus. Abdomen is significantly obese and nontender. There are bowel sounds. Extremities are negative for edema. There is a transmetatarsal amputation on the left foot. The right upper extremity fistula is in use his right upper chest dialysis catheter was removed. The site looks clean. Neurologic: He is interactive, conversational. Follows commands. Is oriented to person, place, situation and has chronic unchanged dysarthria. LABS: White count 20, hemoglobin 11.5, platelet 86. Sodium 136, potassium 4.8, magnesium 2.5. Blood cultures June 07, 2019, no growth for 24 hours. INPATIENT MEDICATIONS: Continues on renally dosed vancomycin, Levophed is at 1 mcg. Remainder medications are unchanged from prior. PROBLEMS: 1. End-stage renal disease on hemodialysis. He was dialyzed today again via the AV fistula. The infected dialysis catheter was removed on June 06, 2019. He has not had too much oral intake and fluid removal with dialysis has appropriately been cut down. I am hopeful that he will be able to be weaned off of pressor support. His electrolytes are acceptable. His mentation has improved. 2. Staphylococcus aureus (MRSA) bacteremia with septic shock on Levophed now down to 1 mcg status post dialysis catheter removal, transesophageal echocardiogram is pending. Most recent blood culture on 06/07/2019 was negative for 24 hours. Continues on renally dosed vancomycin with therapeutic levels and is followed by infectious diseases. 3. Metabolic encephalopathy. It has improved. Today, he was oriented times three. He was following commands and I found his dysarthria to be his usual baseline. He is still pending full endocarditis workup. 4. Anemia of chronic renal failure: His hemoglobin is optimal. Aranesp is presently on hold. 5. Supratherapeutic INR in this patient with history of atrial fibrillation and Coumadin is as per primary team. 6. Thrombocytopenia: It is chronic his dialysis treatments have not been complicated by any clotting.
[2019-06-08] MEDS ORDERED: VANCOMYCIN HCL 500 MG in D5W MINI-BAG PLUS 100 ML IV ONE (16:00)
[2019-06-08] MEDS ORDERED: methylPREDNISolone INJ 40 MG/1 ML VIAL (J2920) IV SCH (21:00)
[2019-06-09] VITALS (26 sets, daily range): BP systolic 85–115; BP diastolic 53–72
[2019-06-09 04:46] LABS: BASO % 0.2 % (0.0-1.0); HEMATOCRIT 35.6 % (42.0-52.0); HEMOGLOBIN 11.2 g/dl (13.5-17.5); LYMPH # 0.4 10^3/uL (1.5-5.0); LYMPH % 2.9 % (24.0-44.0); MEAN CORPUSCULAR HEMOGLOBIN 32.7 pg (27.0-33.0); MEAN CORPUSCULAR HGB CONC 31.5 g/dl (32.0-36.5); MEAN CORPUSCULAR VOLUME 104.1 fl (80.0-96.0); MONO # 0.8 10^3/uL (0.0-0.8); MONO % 6.6 % (0.0-5.0); NEUTROPHILS # 11.3 10^3/uL (1.5-8.5); NEUTROPHILS % 89.5 % (36.0-66.0); RED BLOOD COUNT 3.42 10^6/uL (4.30-6.10); WHITE BLOOD COUNT 12.6 10^3/uL (4.0-10.0)
[2019-06-09 04:55] LABS: PLATELET COUNT, AUTOMATED 82 10^3/uL (150-450)
[2019-06-09 05:00] LABS: INR 2.85; PROTHROMBIN TIME 29.8 SECONDS (11.8-14.0)
[2019-06-09 05:09] LABS: CALCIUM LEVEL 8.4 MG/DL (8.8-10.2); CREATININE FOR GFR 5.52 MG/DL (0.70-1.30); GLOMERULAR FILTRATION RATE 13.2 (>42); MAGNESIUM LEVEL 2.3 MG/DL (1.8-2.4); POTASSIUM SERUM 4.4 MEQ/L (3.5-5.1)
[2019-06-09] MEDS: SODIUM CHLORIDE 0.9% INJ 10 ML SYR IV SCH ×2 (06:22→14:00)
[2019-06-09] MEDS: CYANOCOBALAMIN 500 MCG TAB PO SCH (07:42)
[2019-06-09] MEDS: (RENVELA) SEVELAMER **CARBONate** 800 MG TAB PO SCH ×3 (07:42→19:09)
[2019-06-09] MEDS: ASPIRIN 81 MG ENTERIC TAB PO SCH (07:42)
[2019-06-09] MEDS: OYSTER SHELL CALCIUM 500 MG TAB PO SCH (07:42)
[2019-06-09] MEDS: HumaLOG INSULIN (NovoLOG) PER UNIT SC SCH ×4 (07:42→20:41)
[2019-06-09] MEDS: VITAMIN D 1,000 INTERNATIONAL UNITS TABLET PO SCH (07:43)
[2019-06-09] MEDS: ADVAIR HFA 115/21MCG INHALER INH SCH ×2 (09:17→19:38)
--- NOTE | 2019-06-09 11:22 | IPNPDOC ---
Subjective Date Seen The patient was seen on 06/09/19. Subjective Chief Complaint/HPI Patient is much better today , his confusion and delirium has resolved, he is alert and oriented and his speech is at baseline. He is off levoped. He says he feels much better and not as tired at before. He is seen sitting up by the side of the bed getting washed. Objective Physical Examination General Exam: Positive: Cooperative, No Acute Distress Eye Exam: Positive: PERRLA, Conjunctiva & lids normal, EOMI; Negative: Sclera icteric ENT Exam: Positive: Atraumatic, Mucous membr. moist/pink, Pharynx Normal Neck Exam: Positive: Supple, Other (very short neck); Negative: JVD, thyromegaly Chest Exam: Positive: Clear to auscultation, Diminished, Other Heart Exam: Positive: Rate Normal, Irregular Rhythm, Normal S1, Normal S2; Negative: Murmurs, Rubs Telemetry: Positive: Atrial fibrillation Abdomen Exam: Positive: Normal bowel sounds, Soft; Negative: Tenderness, Hepatospenomegaly Extremity Exam: Positive: Other (left transmetatarsal amputation with pressure ulcer); Negative: Clubbing, Cyanosis, Edema Skin Exam: Positive: Nl turgor and temperature; Negative: Rash, Breakdown Neuro Exam: Positive: Other (garbled speech but fluent) Psych Exam: Positive: Other (confused, somnolent) Assessment /Plan Assessment This is a 74 year old male patient with PMH of ESRD on HD thu, thu, thursday, Presented to the ED for weakness, falls and hypotension. The patient reported that he got his regular dialysis done on Thursday. However, after dialysis he felt weak and he actually hit his head in the car while he was being transported back to his home and at home, as reported by his he was feeling very weak, tired and fatigued and he was falling . Patient says he fell twice yesterday. Finally emergency medical services (EMS) was called, and he was found to be hypotensive with systolic blood pressure in 70s. In the ED patient also had watery diarrhea . He also complained of a cough with phelgm production and CT chest showed patchy infiltrates. Patient was given small boluses total about 1.5 liters then started on levophed and started on broad spectrum antibiotics. He was admitted for septic shock etiology being yet to be determined. Radiology: CT chest 06/04: 1. Mild patchy bilateral pulmonary infiltrates which are new since 08/11/2018 and minimal bilateral lower lobe fibro-atelectatic change which is similar or slightly increased. 2. 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 3. Mild prominence of the main pulmonary artery measuring 44 mm which may be seen with pulmonary hypertension. 4. Interval placement of right internal jugular dialysis catheter into the right atrium since the prior study. CT abdomen / pelvis 06/04: 1. Limited exam as above. 2. Small to moderate ascites, new since 05/14/16, nonspecific. 3. Mild dilatation of some scattered small bowel loops, some of which also appear mildly thick-walled. It is unclear whether this could be related to a similar process as the ascites, or if it suggests a nonspecific enteritis/ileus. 4. Increased subcutaneous edema over the bilateral flanks and buttocks. 5. Similar small fat containing bilateral inguinal hernias. 6. Apparent bilateral scrotal hydroceles. 7. Similar prominent esther hepatis and bilateral inguinal lymph nodes. Shock combination of septic shock and hypovolemic shock. due to MRSA bacterimia from percath infection. procalcitonin greater than 2 On Vancomycin levophed weaned off. blood cultures positive for MRSA / bottle and culture from the permcath port also growing gram variable rods--Strenotrophomonas multiphila Complicated MRSA bacteremia with pacemaker in place. Most probably from Perc cath infection Per cath removed on 06/06/19 echo did not show any definite vegetations. will need to be evaluated for Infective endocarditis. LISA ordered On vancomycin will need total 8 weeks of antibiotics as per ID as has a pac emaker. Acute metabolic encephalopathy now resolved due to sepsis also there is a possibility of septic emboli. No further delirium, he is alert and oriented. his dysarthria is at baseline. CT head x2 is negative Cannot have an MRI as has pacemaker Difficult to comprehend / garbled speech At baseline patient does express some garbled speech which is at baseline. as he has shuttering and a strong [place] accent. Chronic A. fib with RVR rate now controlled INR in therapeutic range now. will restart coumadin tomorrow. Hx of Pacemaker Elevated troponin - likely 2/2 ESRD, possibly 2/2 demand ischemia (NSTEMI Type II) given hypotension patient denied any chest pain, shortness of breath or palpitations EKG was reviewed and is currently unchanged from prior - is in atrial fibrillation c/w Telemetry monitoring Thrombocytopenia Appears to be at baseline No evidence of bleeding Will monitor counts Anemia - likely 2/2 AOCD / ESRD Hg is at baseline Will continue to monitor counts ESRD on HD MWF schedule As per Nephrology ELISSA on CPAP with moderate pulmonary hypertension and chronic right heart failure. non complaint COPD with mod pul hypertension with chronic right heart failure with exacerbation c/w inhaled therapy as ordered also on solumedrol. HTN Patient is currently hypotensive as been on metoprolol as an outpatient for A. fib (will hold at this time) IDDM2 Will start ISS Morbid obesity Patients BMI is 38.5 Complicating medical care Plan/VTE VTE Prophylaxis Ordered?: Yes VS, I&O, 24H, Fishbone Vital Signs/I&O Vital Signs Date Time Temp Pulse Resp B/P (MAP) Pulse Ox O2 Delivery O2 Flow Rate FiO2 06/09/19 04:01 96.5 83 20 115/67 (83) 95 Room Air 06/08/19 04:00 1.0 I&O- Last 24 Hours up to 6 AM 06/09/19 06:00 Intake Total 623.8 ml Output Total 1400 ml Balance -776.2 ml Laboratory Data 24H LABS Laboratory Tests 2 06/08/19 11:58: Bedside Glucose (Misc Panel) 143H 06/08/19 17:49: Bedside Glucose (Misc Panel) 295H 06/08/19 20:18: Bedside Glucose (Misc Panel) 214H 06/09/19 04:29: Immature Granulocyte % (Auto) 0.8, Neutrophils (%) (Auto) 89.5H, Lymphocytes (%) (Auto) 2.9L, Monocytes (%) (Auto) 6.6H, Eosinophils (%) (Auto) 0.0, Basophils (%) (Auto) 0.2, Neutrophils # (Auto) 11.3H, Lymphocytes # (Auto) 0.4L, Monocytes # (Auto) 0.8, Eosinophils # (Auto) 0.0, Basophils # (Auto) 0.0, Nucleated Red Blood Cells % (auto) 0.2H, Prothrombin Time 29.8H, Prothromb Time International Ratio 2.85, Anion Gap 10, Glomerular Filtration Rate 13.2L, Calcium Level 8.4L, Magnesium Level 2.3 CBC/BMP Laboratory Tests 06/09/19 04:29 Microbiology Microbiology 06/09/19 Blood Culture, Received Pending 06/08/19 Blood Culture - Preliminary, Resulted No growth after 24 hours . All specim... 06/07/19 Blood Culture - Preliminary, Resulted No Growth after 48 hours. All Specime... 06/06/19 Blood Culture - Preliminary, Resulted 06/06/19 Blood Culture - Preliminary, Resulted 06/05/19 Blood Culture - Final, Complete Staph.aureus Methicillin Resis 06/05/19 Blood Culture - Final, Complete Staph.aureus Methicillin Resis 06/04/19 Acid Fast Stain - Final, Resulted 06/04/19 Mycobacterial Culture, Resulted Pending 06/04/19 Gram Stain - Final, Complete 06/04/19 Sputum Culture - Final, Complete 06/04/19 Blood Culture - Final, Complete Staph.aureus Methicillin Resis 06/04/19 Gastrointestinal Tract Panel (PCR) - Final, Complete 06/04/19 Respiratory Virus Panel (PCR) (STANISLAV) - Final, Complete 06/04/19 Blood Culture - Final, Complete Staph.aureus Methicillin Resis QUAN GARZA MD Jun 09, 2019 06:24
[2019-06-09] MEDS: predniSONE 20 MG TAB PO SCH (11:25)
[2019-06-09] MEDS: **VANCO AFTER HD** MISC XX SCH (13:54)
[2019-06-09] MEDS ORDERED: LevoFLOXacin IV 500 MG in IV 1 EA IV ONE (14:45)
[2019-06-09] MEDS ORDERED: MIDAZOLAM INJ 2 MG/2 ML VIAL (J2250) IV ONE ×2 (15:30→16:45)
[2019-06-09] MEDS ORDERED: CETACAINE SPRAY 5GM TOP ONE (16:45)
--- NOTE | 2019-06-09 17:03 | T-ECHO ---
DATE OF PROCEDURE: 06/09/2019 REFERRING PHYSICIAN: Dr. Cici Mcdaniels INDICATION: MSSA bacteremia. PREDIAGNOSIS: MSSA bacteremia. POSTDIAGNOSIS: MSSA bacteremia. PRINCIPAL FINDINGS: Thickened tricuspid leaflets without vegetations. Severe tricuspid regurgitation. No vegetations. Moderate aortic valve sclerosis. No aortic regurgitation. PROCEDURE PERFORMED: Transesophageal echocardiogram. PERFORMED BY: Frank Russell MD MEAT LUGGER: None. SEDATION: Midazolam 3 mg IV. COMPLICATIONS: None. PROCEDURE DESCRIPTION: Rhythm was atrial fibrillation with controlled ventricular response. The left ventricle appeared to be normal in size and systolic function without regional wall motion abnormalities. The right ventricle appeared normal in systolic function and was probably at least mildly enlarged. Both atrial appeared to be dilated. Atrial septum appeared intact anatomically and by color flow Doppler. Aortic valve was three-cusp and displayed moderate focal thickening and focal calcific deposits. No reduction in mobility of the aortic cusps. No aortic regurgitation. Aortic valve did not appear to be stenotic. Mild mitral annular calcification. There is very mild mitral regurgitation. Pulmonic valve was only moderately visualized but appeared unremarkable and no pulmonic regurgitation. The tricuspid leaflets appeared to be diffusely thickened especially the lateral mitral leaflet. Failure of coaptation of the tricuspid leaflets. Severe tricuspid regurgitation. No vegetations identified underneath the cardiac valves. A ventricular pace maker lead was seen in the right atrium coursing into the right ventricle and seemed to be free of any masses or vegetations. No pericardial effusion. Mild atheroma was present in the distal aortic arch and descending thoracic aorta. The patient received Cetacaine spray prior to receiving sedation. CONCLUSIONS: 1. No vegetations. 2. Thickened tricuspid leaflets with area of coaptation. Severe tricuspid regurgitation. 3. Appearance of biatrial enlargement. 4. Probably mild right ventricle dilatation. Appearance of normal right ventricular systolic function. 5. Normal left ventricle regional wall motion and systolic function. LVEF 60% by visual estimate. 6. Moderate aortic valve sclerosis of a three-cusp aortic valve. Aortic valve did not appear to be stenotic. No aortic regurgitation. 7. Presence of endocardial right ventricular pacemaker lead. 8. Mild patchy atheroma in the distal aortic arch and descending thoracic aorta.
--- NOTE | 2019-06-09 20:38 | IPN ---
DATE OF SERVICE: 06/09/2019 INFECTIOUS DISEASE PROGRESS NOTE Mr. Lobo was seen after his transesophageal echocardiogram done this afternoon, and therefore, he was slightly lethargic. According to his nurse, he was out of bed to the chair and had a good meal. He is alert, oriented. His speech is at baseline. He is off pressors. He has had no complaints today. On physical exam, temperature is 97. He has been afebrile for the past 5 days. Pulse 75, respirations 20, blood pressure 102/60, oxygen saturation (O2 sat) 93% on room. Heart: Normal S1, S2, distant. Systolic ejection murmur, unchanged. Lungs: Diminished breath sounds at the bases but clear. Abdomen: Obese, soft, nontender with umbilical hernia. Extremities: No edema. 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 A calf ulcer on the back of the left leg with granulation tissue. He has a right groin central line that was probably placed in the emergency room on admission. Right hemodialysis catheter was removed, site upper chest healing well without evidence of infection. Blood culture on 06/04/2019, two sets, and 06/05/2019, two more sets, were positive for methicillin-resistant Staphylococcus aureus (MRSA). Blood cultures on 06/06/2019, two sets are positive for Stenotrophomonas. They were done 15 minutes apart, both sensitive to Levaquin and Bactrim. White count 12.6, hemoglobin 11.2, hematocrit 35.6, platelets 82, 89% neutrophils, 3% lymphocytes, 6% monocytes. Sodium 136, potassium 4.4, chloride 101, bicarbonate 25, BUN 59, creatinine 5.52, glucose 241, calcium 8.4, magnesium 2.3, CRP 10.7. Vancomycin level on 06/08/2019 was 20.9. Blood cultures on 06/07/2019 and 06/08/2019 are negative. Blood culture on 06/[address] done on 06/07/2019 showed no evidence of acute infection. Vascular calcifications, mild generalized atrophy, no acute findings. IMPRESSION: 1. MRSA sepsis with septic shock. The patient is off pressors. He is on IV vancomycin with vancomycin trough around 20. 2. Stenotrophomonas bacteremia which is nosocomial? 48 hours after admission vs just colonization of his HD line Cultures were positive on 06/06/2019, 48 hours after admission, which is concerning for a line infection, but peripheral cultures were not obtained simultaneously possibly his right central line in his right groin, which was removed tonight. 3. End-stage renal disease, on hemodialysis with arteriovenous (AV) graft. His HD catheter was removed and his AV graft is functioning well. 4. History of pacemaker. The patient had Staphylococcus (staph) aureus bacteremia, which makes it a complicated staph aureus bacteremia, and therefore, the patient will need 4 weeks of IV vancomycin. The patient had transesophageal echocardiogram, results of which are not in the chart yet. PLAN: Continue IV vancomycin, start IV Levaquin loading dose of 500 mg followed by 250 mg every 48 hours for Stenotrophomonas bacteremia. Discontinue central line from his right groin. Repeat blood cultures tomorrow and C-reactive protein (CRP), sedimentation (sed) rate. He will need at least 2 weeks of Levaquin and 4 weeks of IV vancomycin. MTDD
[2019-06-10 00:15] VITALS: BP 99/60
[2019-06-10 01:15] VITALS: BP 90/63
[2019-06-10 04:15] VITALS: BP 120/55
[2019-06-10 04:55] LABS: BASO % 0.2 % (0.0-1.0); HEMATOCRIT 37.6 % (42.0-52.0); HEMOGLOBIN 11.9 g/dl (13.5-17.5); LYMPH # 0.5 10^3/uL (1.5-5.0); LYMPH % 4.2 % (24.0-44.0); MEAN CORPUSCULAR HEMOGLOBIN 32.9 pg (27.0-33.0); MEAN CORPUSCULAR HGB CONC 31.6 g/dl (32.0-36.5); MEAN CORPUSCULAR VOLUME 103.9 fl (80.0-96.0); NEUTROPHILS # 9.1 10^3/uL (1.5-8.5); NEUTROPHILS % 85.2 % (36.0-66.0); RED BLOOD COUNT 3.62 10^6/uL (4.30-6.10); WHITE BLOOD COUNT 10.7 10^3/uL (4.0-10.0)
[2019-06-10 04:58] LABS: PLATELET COUNT, AUTOMATED 94 10^3/uL (150-450)
[2019-06-10 05:10] LABS: INR 2.06
[2019-06-10 05:25] LABS: CALCIUM LEVEL 8.2 MG/DL (8.8-10.2); CREATININE FOR GFR 6.27 MG/DL (0.70-1.30); GLOMERULAR FILTRATION RATE 11.4 (>42); MAGNESIUM LEVEL 2.4 MG/DL (1.8-2.4); POTASSIUM SERUM 4.9 MEQ/L (3.5-5.1); VANCOMYCIN RANDOM 18.9 UG/ML
--- NOTE | 2019-06-10 05:56 | IPN ---
DATE OF SERVICE: 06/09/2019 SUBJECTIVE: The patient was seen and examined at the bedside today morning in the intensive care unit (ICU). He was sitting up in the bedside sofa now. He is off the pressors now. He is afebrile and hemodynamically stable. He was dialyzed yesterday and 1.4 liters of fluid was removed. The patient's told me that he is supposed to get his transesophageal echocardiogram now. He continues to be on IV antibiotics for bacteremia. OBJECTIVE: Vital Signs: Temperature is 97.9 degrees Fahrenheit, blood pressure 97/60, pulse is 76, respiratory rate of 20, saturating 98% on room air. Intake and Output: There is no urine output recorded. Ultrafiltration with hemodialysis was 1.4 liters. Weight in the bed scale was 137 kg yesterday. PHYSICAL EXAMINATION: General: The patient is awake, alert, oriented times three, sitting up in the sofa, in no apparent distress. Head and Neck Exam: The patient has right eye blindness. Mucous membranes are moist. Neck is supple. No jugular venous distention (JVD). Cardiovascular: S1, S2, regular rate. 1+ edema of the bilateral lower extremities. Respiratory: Chest is much more clear now. He has mild expiratory rhonchi at the bases now. Abdomen: Soft, obese. Positive bowel sounds. Mild abdominal wall edema. Musculoskeletal: No clubbing or cyanosis. Left transmetatarsal site amputation. He has a right upper arm AV fistula. Central Nervous System (DOCUMENT PREPARATION SPECIALIST): No focal deficit. Power is 5/5 in bilateral upper extremities. LAB REVIEW: CBC showed a WBC of 12.6, hemoglobin is 11.2, platelets 82. BMP showed a sodium of 136, potassium 4.4, chloride 101, bicarb 25, BUN 59, creatinine 5.5, calcium is 8.4, and magnesium 2.3. Microbiology: Blood cultures from 06/06/2019 are growing Stenotrophomonas and from 06/05/2019 are growing Staphylococcus aureus methicillin-resistant. CURRENT INPATIENT MEDICATIONS: The patient's medications were all reviewed by me. He has been started on IV Levaquin. He also continues to be on vancomycin. No other change in the medications today as compared with yesterday. ASSESSMENT/PLAN: 1. End-stage renal disease. The patient is getting dialysis according to Thursday, Thursday, Thursday schedule. He was dialyzed yesterday. Next hemodialysis will be done tomorrow morning. 2. Methicillin-resistant Staphylococcus aureus (MRSA) bacteremia. The patient's right internal jugular (IJ) tunneled hemodialysis catheter was removed. He is currently on vancomycin as per infectious disease (ID) recommendations. He will need 4 weeks of IV vancomycin. Transesophageal echocardiogram result is pending. 3. Stenotrophomonas bacteremia. Most likely is from the right groin line. Right groin line is to be removed as recommended by infectious disease. He has been started on Levaquin. As per recommendations, he will need 2 weeks of Levaquin therapy. 4. Anemia in end-stage renal disease. Hemoglobin is 11.2, which is optimal. 5. Acute chronic obstructive pulmonary disease (COPD) exacerbation. His IV Solu-Medrol has been stopped. The patient has been started on prednisone 40 mg by mouth daily. He continues to be on Advair.
[2019-06-10] MEDS: CYANOCOBALAMIN 500 MCG TAB PO SCH (06:07)
[2019-06-10] MEDS: (RENVELA) SEVELAMER **CARBONate** 800 MG TAB PO SCH ×3 (06:07→18:55)
[2019-06-10] MEDS: predniSONE 20 MG TAB PO SCH (06:08)
[2019-06-10] MEDS: ASPIRIN 81 MG ENTERIC TAB PO SCH (06:08)
[2019-06-10] MEDS: VITAMIN D 1,000 INTERNATIONAL UNITS TABLET PO SCH (06:08)
[2019-06-10] MEDS: OYSTER SHELL CALCIUM 500 MG TAB PO SCH (06:08)
[2019-06-10] MEDS: ADVAIR HFA 115/21MCG INHALER INH SCH ×2 (07:32→20:44)
[2019-06-10] MEDS: HumaLOG INSULIN (NovoLOG) PER UNIT SC SCH ×4 (07:37→22:24)
[2019-06-10 08:00] VITALS: BP 105/68
[2019-06-10 10:00] VITALS: BP 109/65
--- NOTE | 2019-06-10 10:39 | IPNPDOC ---
Subjective Date Seen The patient was seen on 06/10/19. Subjective Chief Complaint/HPI Patient looks good today. sitting up in chair waiting to go for HD, Few NSVTs adn PVCs in telemetry. His mental status is back to baseline. His speech is sometimes difficult to understand which is usual. No fever o chills, no chest pain or sob Objective Physical Examination General Exam: Positive: Alert, Cooperative, No Acute Distress Eye Exam: Positive: PERRLA, Conjunctiva & lids normal, EOMI; Negative: Sclera icteric ENT Exam: Positive: Atraumatic, Mucous membr. moist/pink, Pharynx Normal Neck Exam: Positive: Supple, Other (very short neck); Negative: JVD, thyromegaly Chest Exam: Positive: Clear to auscultation, Diminished (at the bases), Other (at the bases) Heart Exam: Positive: Rate Normal, Irregular Rhythm, Normal S1, Normal S2; Negative: Murmurs, Rubs Telemetry: Positive: Atrial fibrillation Abdomen Exam: Positive: Normal bowel sounds, Soft; Negative: Tenderness, Hepatospenomegaly Extremity Exam: Positive: Other (left transmetatarsal amputation with pressure ulcer); Negative: Clubbing, Cyanosis, Edema Skin Exam: Positive: Nl turgor and temperature; Negative: Rash, Breakdown Neuro Exam: Positive: Other (garbled speech but fluent) Psych Exam: Positive: Other (confused, somnolent) Assessment /Plan Assessment This is a 74 year old male patient with PMH of ESRD on HD thu, thu, thursday, Presented to the ED for weakness, falls and hypotension. The patient reported that he got his regular dialysis done on Thursday. However, after dialysis he felt weak and he actually hit his head in the car while he was being transported back to his home and at home, as reported by his he was feeling very weak, tired and fatigued and he was falling . Patient says he fell twice before admission. Finally emergency medical services (EMS) was called, and he was found to be hypotensive with systolic blood pressure in 70s. In the ED patient also had watery diarrhea . He also complained of a cough with phelgm production and CT chest showed patchy infiltrates. Patient was given small boluses total about 1.5 liters then started on levophed and started on broad spectrum antibiotics. He was admitted for septic shock. Radiology: CT chest 06/04: 1. Mild patchy bilateral pulmonary infiltrates which are new since 08/11/2018 and minimal bilateral lower lobe fibro-atelectatic change which is similar or slightly increased. 2. 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 3. Mild prominence of the main pulmonary artery measuring 44 mm which may be seen with pulmonary hypertension. 4. Interval placement of right internal jugular dialysis catheter into the right atrium since the prior study. CT abdomen / pelvis 06/04: 1. Limited exam as above. 2. Small to moderate ascites, new since 05/14/16, nonspecific. 3. Mild dilatation of some scattered small bowel loops, some of which also appear mildly thick-walled. It is unclear whether this could be related to a similar process as the ascites, or if it suggests a nonspecific enteritis/ileus. 4. Increased subcutaneous edema over the bilateral flanks and buttocks. 5. Similar small fat containing bilateral inguinal hernias. 6. Apparent bilateral scrotal hydroceles. 7. Similar prominent esther hepatis and bilateral inguinal lymph nodes. Shock combination of septic shock and hypovolemic shock. due to MRSA bacterimia from percath infection. procalcitonin greater than 2 On Vancomycin and levofloxacin levophed weaned off. blood cultures positive for MRSA 08/19 bottle and culture from the permcath port also growing gram variable rods--Strenotrophomonas multiphila Complicated MRSA bacteremia with pacemaker in place. Most probably from Perm cath infection Perm cath removed on 06/06/19 echo did not show any definite vegetations. will need to be evaluated for Infective endocarditis. LISA negative for vegetations On vancomycin will need total 8 weeks of antibiotics as per ID as has a pacemaker. Acute metabolic encephalopathy now resolved due to sepsis also there is a possibility of septic emboli. No further delirium, he is alert and oriented. his dysarthria is at baseline. CT head x2 is negative Cannot have an MRI as has pacemaker Difficult to comprehend / garbled speech At baseline patient does express some garbled speech which is at baseline. as he has shuttering and a strong Southern accent. Chronic A. fib with RVR rate now controlled INR in therapeutic range now. will restart coumadin Hx of Pacemaker Elevated troponin - likely 2/2 ESRD, possibly 2/2 demand ischemia (NSTEMI Type II) given hypotension patient denied any chest pain, shortness of breath or palpitations EKG was reviewed and is currently unchanged from prior - is in atrial fib rillation c/w Telemetry monitoring Thrombocytopenia Appears to be at baseline No evidence of bleeding Will monitor counts Anemia - likely 2/2 ESRD Hg is at baseline Will continue to monitor counts ESRD on HD MWF schedule As per Nephrology ELISSA on CPAP with moderate pulmonary hypertension and chronic right heart failure. non complaint COPD with mod pul hypertension with chronic right heart failure with exacerbation c/w inhaled therapy as ordered also on solumedrol. HTN Patient is currently hypotensive as been on metoprolol as an outpatient for A. fib (will hold at this time) IDDM2 Will start ISS Morbid obesity Patients BMI is 38.5 Complicating medical care Plan/VTE VTE Prophylaxis Ordered?: Yes VS, I&O, 24H, Fishbone Vital Signs/I&O Vital Signs Date Time Temp Pulse Resp B/P (MAP) Pulse Ox O2 Delivery O2 Flow Rate FiO2 06/10/19 08:00 96.9 81 20 105/68 (80) 98 Room Air 06/09/19 16:33 2.0 I&O- Last 24 Hours up to 6 AM 06/10/19 06:02 Intake Total 940 ml Balance 940 ml Laboratory Data 24H LABS Laboratory Tests 2 06/09/19 11:24: Bedside Glucose (Misc Panel) 280H 06/09/19 17:25: Bedside Glucose (Misc Panel) 199H 06/09/19 20:28: Bedside Glucose (Misc Panel) 163H 06/10/19 04:42: Immature Granulocyte % (Auto) 1.4, Neutrophils (%) (Auto) 85.2H, Lymphocytes (%) (Auto) 4.2L, Monocytes (%) (Auto) 9.0H, Eosinophils (%) (Auto) 0.0, Basophils (%) (Auto) 0.2, Neutrophils # (Auto) 9.1H, Lymphocytes # (Auto) 0.5L, Monocytes # (Auto) 1.0H, Eosinophils # (Auto) 0.0, Basophils # (Auto) 0.0, Nucleated Red Blood Cells % (auto) 0.2H, Immature Platelet Fraction 8.5, Prothrombin Time 23.0H, Prothromb Time International Ratio 2.06, Anion Gap 11, Glomerular Filtration Rate 11.4L, Calcium Level 8.2L, Magnesium Level 2.4, Random Vancomycin Level 18.9 06/10/19 06:36: Bedside Glucose (Misc Panel) 157H CBC/BMP Laboratory Tests 06/10/19 04:42 Microbiology Microbiology 06/09/19 Blood Culture - Preliminary, Resulted No growth after 24 hours . All specim... 06/08/19 Blood Culture - Preliminary, Resulted No Growth after 48 hours. All Specime... 06/07/19 Blood Culture - Preliminary, Resulted No Growth after 72 hours. All specime... 06/06/19 Blood Culture - Final, Complete Stenotrophomonas Maltophilia 06/06/19 Blood Culture - Final, Complete Stenotrophomonas Maltophilia 06/05/19 Blood Culture - Final, Complete Staph.aureus Methicillin Resis 06/05/19 Blood Culture - Final, Complete Staph.aureus Methicillin Resis 06/04/19 Acid Fast Stain - Final, Resulted 06/04/19 Mycobacterial Culture, Resulted Pending 06/04/19 Gram Stain - Final, Complete 06/04/19 Sputum Culture - Final, Complete 06/04/19 Blood Culture - Final, Complete Staph.aureus Methicillin Resis 06/04/19 Gastrointestinal Tract Panel (PCR) - Final, Complete 06/04/19 Respiratory Virus Panel (PCR) (STANISLAV) - Final, Complete 06/04/19 Blood Culture - Final, Complete Staph.aureus Methicillin Resis QUAN GARZA MD Jun 10, 2019 10:41
[2019-06-10] MEDS ORDERED: HEPARIN 1,000 UNITS/ML 10ML VIAL (FOR RADIOLOGY& DIALYSIS ONLY)(J1644-10) IV ONE (12:30)
[2019-06-10] MEDS: **VANCO AFTER HD** MISC XX SCH (18:54)
[2019-06-10] MEDS: VANCOMYCIN HCL 1,000 MG, VIAL MATE ADAPTER 1 EACH in D5W 250 ML IV SCH (18:54)
--- NOTE | 2019-06-10 20:42 | IPN ---
DATE: 06/10/2019 Mr. Lobo is sitting at the bedside. He is a little irritable. He wants to stretch and does not want to be bothered by another doctor. He does not have any complaints. No cough or shortness of breath. No nausea, vomiting or diarrhea. Patient states his legs need stretching. He is sitting at the bedside independent. He had dialysis today. VITAL SIGNS: Temperature is 98.7, pulse 71, respirations 18, blood pressure 109/65, oxygen saturation 98% on room air. HEART: Normal S1, S2 with a holosystolic ejection murmur 2/6 at the left upper sternal border. ABDOMEN: Morbidly obese. Soft, nontender with an umbilical hernia reducible. LUNGS: Diminished breath sounds at both bases but no wheezes or rhonchi. BACK: No costovertebral angle (CVA) or lumbosacral tenderness. EXTREMITIES: No edema. He has an Achilles tendon wound, a calf wound, which has good granulation tissue and knee abrasion on the left side. LABORATORY DATA: White count is 10.7, hemoglobin 11.9, hematocrit 37.6, platelets 94. Sodium 138, potassium 4.9, chloride 101, bicarbonate 26, BUN 74, creatinine 6.27, glucose 196, calcium 8.2. Blood cultures were positive for methicillin-resistant Staphylococcus aureus (MRSA) on , four sets and on 06/06/2019, two sets were positive for Stenotrophomonas. On 06/07/2019, 06/08/2019 and 06/09/2019, blood cultures were all negative. Transesophageal echocardiogram was done by Dr. Russell. The report is still not in the chart. IMPRESSION: 1. MRSA bacteremia, probably infected hemodialysis catheter status post removal. Patient will need intravenous (IV) vancomycin for four weeks for complicated Staphylococcus aureus bacteremia since he has a pacemaker, at risk of seeding the hardware. Continue IV vancomycin for four weeks that could be given at dialysis from first negative culture. End of therapy would be 07/05/2019. 2. Stenotrophomonas bacteremia, these were two cultures taken from his hemodialysis port. There was no peripheral culture that was associated with them. Not sure if it is a contaminant. Patient on IV Levaquin that could be switched to oral Levaquin. PLAN Continue IV vancomycin total of four weeks. Switch to oral Levaquin 250 mg every other day for two weeks for Stenotrophomonas.
[2019-06-10 22:00] VITALS: BP 107/65
[2019-06-11 06:00] VITALS: BP 108/60
[2019-06-11 07:55] LABS: BASO % 0.2 % (0.0-1.0); EOS # 0.1 10^3/uL (0.0-0.5); EOS % 0.5 % (0.0-3.0); HEMATOCRIT 37.9 % (42.0-52.0); HEMOGLOBIN 12.2 g/dl (13.5-17.5); LYMPH # 0.8 10^3/uL (1.5-5.0); LYMPH % 8.2 % (24.0-44.0); MEAN CORPUSCULAR HEMOGLOBIN 33.3 pg (27.0-33.0); MEAN CORPUSCULAR HGB CONC 32.2 g/dl (32.0-36.5); MEAN CORPUSCULAR VOLUME 103.6 fl (80.0-96.0); MONO # 1.3 10^3/uL (0.0-0.8); NEUTROPHILS # 7.2 10^3/uL (1.5-8.5); PLATELET COUNT, AUTOMATED 121 10^3/uL (150-450); RED BLOOD COUNT 3.66 10^6/uL (4.30-6.10); WHITE BLOOD COUNT 9.5 10^3/uL (4.0-10.0)
[2019-06-11 08:07] LABS: INR 1.8; PROTHROMBIN TIME 20.7 SECONDS (11.8-14.0)
--- NOTE | 2019-06-11 08:32 | IPNPDOC ---
Subjective Date Seen The patient was seen on 06/11/19. Subjective Chief Complaint/HPI Says cannot walk . he is very weak, no SOB , no chest pain , no cough. Has good appetite, sitting up at the side of the bed. No fever or chills . Objective Physical Examination General Exam: Positive: Alert, Cooperative, No Acute Distress Eye Exam: Positive: PERRLA, Conjunctiva & lids normal, EOMI; Negative: Sclera icteric ENT Exam: Positive: Atraumatic, Mucous membr. moist/pink, Pharynx Normal Neck Exam: Positive: Supple, Other (very short neck); Negative: JVD, thyromegaly Chest Exam: Positive: Wheezing, Diminished (at the bases), Other (at the bases) Heart Exam: Positive: Rate Normal, Irregular Rhythm, Normal S1, Normal S2; Negative: Murmurs, Rubs Telemetry: Positive: Atrial fibrillation Abdomen Exam: Positive: Normal bowel sounds, Soft; Negative: Tenderness, Hepatospenomegaly Extremity Exam: Positive: Other (left transmetatarsal amputation with pressure ulcer); Negative: Clubbing, Cyanosis, Edema Skin Exam: Positive: Nl turgor and temperature; Negative: Rash, Breakdown Neuro Exam: Positive: Other (garbled speech but fluent) Psych Exam: Positive: Other (confused, somnolent) Assessment /Plan Assessment This is a 74 year old male patient with PMH of ESRD on HD thu, thu, thursday, Presented to the ED for weakness, falls and hypotension. The patient reported that he got his regular dialysis done on Thursday. However, after dialysis he felt weak and he actually hit his head in the car while he was being transported back to his home and at home, as reported by his he was feeling very weak, tired and fatigued and he was falling . Patient says he fell twice before admission. Finally emergency medical services (EMS) was called, and he was found to be hypotensive with systolic blood pressure in 70s. In the ED patient also had watery diarrhea . He also complained of a cough with phelgm production and CT chest showed patchy infiltrates. Patient was given small boluses total about 1.5 liters then started on levophed and started on broad spectrum antibiotics. He was admitted for septic shock. Radiology: CT chest 06/04: 1. Mild patchy bilateral pulmonary infiltrates which are new since 08/11/2018 and minimal bilateral lower lobe fibro-atelectatic change which is similar or slightly increased. 2. 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 3. Mild prominence of the main pulmonary artery measuring 44 mm which may be seen with pulmonary hypertension. 4. Interval placement of right internal jugular dialysis catheter into the right atrium since the prior study. CT abdomen / pelvis 06/04: 1. Limited exam as above. 2. Small to moderate ascites, new since 05/14/16, nonspecific. 3. Mild dilatation of some scattered small bowel loops, some of which also appear mildly thick-walled. It is unclear whether this could be related to a similar process as the ascites, or if it suggests a nonspecific enteritis/ileus. 4. Increased subcutaneous edema over the bilateral flanks and buttocks. 5. Similar small fat containing bilateral inguinal hernias. 6. Apparent bilateral scrotal hydroceles. 7. Similar prominent esther hepatis and bilateral inguinal lymph nodes. Complicated MRSA bacteremia with pacemaker in place. From Perm cath infection Perm cath removed on 06/06/19 LISA negative for vegetations On vancomycin will need total 4 weeks of antibiotics as per ID as has a pacemaker. On levofloxacin for strenotrophomonas in the port Shock combination of septic shock and hypovolemic shock. due to MRSA bacterimia from percath infection. now resolved. Acute metabolic encephalopathy now resolved due to sepsis also there is a possibility of septic emboli. No further delirium, he is alert and oriented. his dysarthria is at baseline. CT head x2 is negative Cannot have an MRI as has pacemaker Difficult to comprehend / garbled speech At baseline patient does express some garbled speech which is at baseline. as he has shuttering and a strong Southern accent. Chronic A. fib with RVR rate now controlled INR in therapeutic range now. will restart coumadin Hx of Pacemaker Elevated troponin - likely 2/2 ESRD, possibly 2/2 demand ischemia (NSTEMI Type II) given hypotension patient denied any chest pain, shortness of breath or palpitations EKG was reviewed and is currently unchanged from prior - is in atrial fibrillation Thrombocytopenia Appears to be at baseline Anemia - likely 2/2 ESRD Hg is at baseline ESRD on HD MWF schedule As per Nephrology ELISSA on CPAP with moderate pulmonary hypertension and chronic right heart failure. non complaint COPD with mod pul hypertension with chronic right heart failure with exacerbation c/w inhaled therapy as ordered, prednisone HTN Patient is currently hypotensive as been on metoprolol as an outpatient for A. fib can be resumed as needed. IDDM2 Will start ISS Morbid obesity Patients BMI is 38.5 Complicating medical care Rehab: will need continued rehab Plan/VTE VTE Prophylaxis Ordered?: Yes VS, I&O, 24H, Fishbone Vital Signs/I&O Vital Signs Date Time Temp Pulse Resp B/P (MAP) Pulse Ox O2 Delivery O2 Flow Rate FiO2 06/11/19 06:00 97.1 84 20 108/60 (76) 87 Room Air 06/09/19 16:33 2.0 I&O- Last 24 Hours up to 6 AM 06/11/19 05:59 Intake Total 480 ml Output Total 2000 ml Balance -1520 ml Laboratory Data 24H LABS Laboratory Tests 2 06/10/19 18:41: Bedside Glucose (Misc Panel) 200H 06/10/19 20:30: Bedside Glucose (Misc Panel) 252H 06/11/19 07:43: Immature Granulocyte % (Auto) 2.1, Neutrophils (%) (Auto) 75.0H, Lymphocytes (%) (Auto) 8.2L, Monocytes (%) (Auto) 14.0H, Eosinophils (%) (Auto) 0.5, Basophils (%) (Auto) 0.2, Neutrophils # (Auto) 7.2, Lymphocytes # (Auto) 0.8L, Monocytes # (Auto) 1.3H, Eosinophils # (Auto) 0.1, Basophils # (Auto) 0.0, Nucleated Red Blood Cells % (auto) 0.4H, Prothrombin Time 20.7H, Prothromb Time International Ratio 1.80, Magnesium Level 2.3 CBC/BMP Laboratory Tests 06/11/19 07:43 Microbiology Microbiology 06/09/19 Blood Culture - Preliminary, Resulted No Growth after 48 hours. All Specime... 06/08/19 Blood Culture - Preliminary, Resulted No Growth after 72 hours. All specime... 06/07/19 Blood Culture - Preliminary, Resulted No Growth after 72 hours. All specime... 06/06/19 Blood Culture - Final, Complete Stenotrophomonas Maltophilia 06/06/19 Blood Culture - Final, Complete Stenotrophomonas Maltophilia 06/05/19 Blood Culture - Final, Complete Staph.aureus Methicillin Resis 06/05/19 Blood Culture - Final, Complete Staph.aureus Methicillin Resis 06/04/19 Acid Fast Stain - Final, Resulted 06/04/19 Mycobacterial Culture, Resulted Pending 06/04/19 Gram Stain - Final, Complete 06/04/19 Sputum Culture - Final, Complete 06/04/19 Blood Culture - Final, Complete Staph.aureus Methicillin Resis 06/04/19 Gastrointestinal Tract Panel (PCR) - Final, Complete 06/04/19 Respiratory Virus Panel (PCR) ([facility]ANISLA[facility]) - Final, Complete 06/04/19 Blood Culture - Final, Complete Staph.aureus Methicillin Resis QUAN GARZA MD Jun 11, 2019 08:32
[2019-06-11] MEDS: (RENVELA) SEVELAMER **CARBONate** 800 MG TAB PO SCH ×3 (09:12→16:57)
[2019-06-11] MEDS: VITAMIN D 1,000 INTERNATIONAL UNITS TABLET PO SCH (09:12)
[2019-06-11] MEDS: ASPIRIN 81 MG ENTERIC TAB PO SCH (09:12)
[2019-06-11] MEDS: OYSTER SHELL CALCIUM 500 MG TAB PO SCH (09:13)
[2019-06-11] MEDS: HumaLOG INSULIN (NovoLOG) PER UNIT SC SCH ×4 (09:13→20:48)
[2019-06-11] MEDS: predniSONE 20 MG TAB PO SCH (09:13)
[2019-06-11] MEDS: CYANOCOBALAMIN 500 MCG TAB PO SCH (09:13)
[2019-06-11] MEDS: **VANCO AFTER HD** MISC XX SCH (12:34)
[2019-06-11 14:00] VITALS: BP 105/64
[2019-06-11] MEDS: WARFARIN SOD 4 MG TAB PO SCH (16:57)
[2019-06-11] MEDS ORDERED: LevoFLOXacin IV 250 MG in IV 1 EA IV SCH (18:00)
[2019-06-11] MEDS: ACETAMINOPHEN TAB 650MG DOSE (2X325MG) PO PRN (18:48)
[2019-06-11] MEDS: ADVAIR HFA 115/21MCG INHALER INH SCH (19:39)
[2019-06-11 20:00] VITALS: BP 106/65
[2019-06-12 06:00] VITALS: BP 105/65
[2019-06-12] MEDS: ADVAIR HFA 115/21MCG INHALER INH SCH ×2 (07:46→20:14)
[2019-06-12] MEDS: ASPIRIN 81 MG ENTERIC TAB PO SCH (08:52)
[2019-06-12] MEDS: VITAMIN D 1,000 INTERNATIONAL UNITS TABLET PO SCH (08:52)
[2019-06-12] MEDS: CYANOCOBALAMIN 500 MCG TAB PO SCH (08:52)
[2019-06-12] MEDS: predniSONE 20 MG TAB PO SCH (08:52)
[2019-06-12] MEDS: HumaLOG INSULIN (NovoLOG) PER UNIT SC SCH ×4 (08:52→21:32)
[2019-06-12] MEDS: OYSTER SHELL CALCIUM 500 MG TAB PO SCH (08:52)
[2019-06-12] MEDS: (RENVELA) SEVELAMER **CARBONate** 800 MG TAB PO SCH ×3 (08:52→17:39)
--- NOTE | 2019-06-12 10:48 | IPN ---
DATE: 06/11/2019 SUBJECTIVE The patient was seen and examined at the bedside today morning. She is afebrile, hemodynamically stable. He is getting ready to eat his lunch when I saw him. He was dialyzed yesterday; 2 liter of fluid was removed which he has tolerated very well. OBJECTIVE Vital signs: Temperature is 97.1 degrees Fahrenheit, blood pressure 105/64, pulse is 73, respiratory rate of 18, saturating 73% on room air. Intake and output: There is no urine output recorded. Ultrafiltration with hemodialysis was 2 liters. Weight in the bed scale is not available. PHYSICAL EXAMINATION General: The patient is awake, alert, oriented times three, sitting up in the bed in no apparent distress. Head and neck examination: Extraocular muscles intact. He has right eye blindness. Mucous membranes are moist. Neck is supple. There is no jugular venous distention (JVD). Cardiovascular: S1, S2, regular rate. 1+ edema of the lower extremities. Respiratory: Mildly decreased breath sounds at the bases with expiratory rhonchi at the bases bilaterally. Abdomen: Soft, obese, positive bowel sounds. Nontender. Musculoskeletal: The patient has left transmetatarsal amputation. 1+ edema of the right lower extremity. SUGAR SAMPLER: No focal deficit. Power is 5/5 in bilateral upper extremities. LAB REVIEW: CBC showed a WBC 9.5, hemoglobin 12.2, platelets are 121. BMP showed sodium 138, potassium 4.9, chloride 101, bicarb 26, BUN 74, creatinine is 6.2, magnesium 2.4. CURRENT INPATIENT MEDICATIONS The patient's medications were all reviewed by me. He continues to be on IV vancomycin and Levaquin. He is currently on prednisone 40 mg daily. Last dose will be June 15. ASSESSMENT/PLAN 1. End-stage renal disease. The patient's dialysis days are Thursday, Thursday, Thursday. He was dialyzed yesterday. Next hemodialysis will be on Thursday. 2. Methicillin-resistant Staphylococcus aureus (MRSA) bacteremia. It was most likely related to IJ tunneled hemodialysis catheter. The catheter has been removed. He will need 4 weeks of IV antibiotics. Last dose will be July 05, 2019 as recommended by infectious disease. 3. Stenotrophomonas bacteremia. The patient is currently on IV Levaquin as recommended by ID. Levaquin will be switched to oral for a total of 2 weeks. 4. Anemia secondary to end-stage renal disease, hemoglobin level is optimal. Rest of the anemia management will be done as outpatient. 5. Acute COPD exacerbation. He is currently on oral prednisone. Continue the nebulizations. Symptoms are getting better.
[2019-06-12] MEDS: ACETAMINOPHEN TAB 650MG DOSE (2X325MG) PO PRN ×2 (11:16→20:30)
[2019-06-12 14:00] VITALS: BP 110/70
--- NOTE | 2019-06-12 15:19 | IPNPDOC ---
Text Note Date of Service The patient was seen on 06/12/19. NOTE Subjective: Patient stated that he doesn't have any pain, no any acute events overnight. Patient denies fever, chills, nausea, vomiting, shortness of breath, diarrhea Objective: NAD, obese male HEENT: Extraocular muscles intact. He has right eye blindness. Mucous membranes are moist. No JVD Cardiovascular: S1, S2, regular rate. 1+ edema of the lower extremities. Respiratory: CTA Abdomen: Soft, obese, positive bowel sounds. Nontender. Moderately distended Musculoskeletal: The patient has left transmetatarsal amputation. 1+ edema of the right lower extremity. SUPERVISOR PUTTY AND CALUKING: No focal deficit. Moves all 4 limbs Assessment and plan: Patient is 74 years old male with past medical history of end-stage renal diseases on dialysis who was admitted with history of falls, generalized weakness and hypotension. Patient was found to have bilateral pulmonary infiltrates consistent with pneumonia. Patient received broad-spectrum antibiotics and liver head due to septic shock. Also patient was found to have MRSA bacteremia most likely from permanent catheter infection, which was removed on 06/06/19. Septic shock Most likely secondary to MRSA, Stenotrophomonas bacteremia superimposed with bilateral pneumonia Blood cultures were positive for methicillin-resistant Staphylococcus aureus (MRSA) on , four sets and on 06/06/2019, two sets were positive for Stenotrophomonas in the port. Subsequently blood cultures were all negative. Bacteremia most likely secondary to infected hemodialysis catheter which was removed Patient has pacemaker and he is in the risk of seeding the hardware. ID Dr. Kam recommended 4 weeks of vancomycin during dialysis. Endo-therapy will be 07/05/19 Will continue Levaquin 250 mg 4 every 48 hours Stenotrophomonas, the end will be 06/26/19 LISA was negative for vegetation MRSA bacteremia with pacemaker in place See above Acute metabolic encephalopathy resolved. No any focal neurological deficit Secondary to sepsis CT head negative Chronic A. fib with RVR rate controlled now Continue to monitor INR Elevated troponin Trended down Secondary to demand ischemia due to atrial fibrillation with rapid ventricular rate Patient denied any chest pain No any ischemic changes on the EKG Anemia - likely 2/2 ESRD Hg is at baseline Bilateral pneumonia Imaging studies showed bilateral pulmonary infiltrates, patient received broad- spectrum antibiotics with positive effect Continue incentive spirometry Hypotension Improved Hyperlipidemia Patient has obesity and diabetes, he will benefit from statin therapy I started high intensity statin ELISSA on CPAP with moderate pulmonary hypertension and chronic right heart failure non complaint IDDM2 Diabetes diet ISS Morbid obesity Patients BMI is 38.5 Complicating medical care Rehab: will need continued rehab VS,Genae, I+O VS, Fishbone, I+O Vital Signs Date Time Temp Pulse Resp B/P (MAP) Pulse Ox O2 Delivery O2 Flow Rate FiO2 06/12/19 06:00 97.5 84 18 105/65 (78) 98 Room Air 06/09/19 16:33 2.0 I&O- Last 24 Hours up to 6 AM 06/12/19 06:00 Intake Total 1168 ml Output Total 1 ml Balance 1167 ml RICHARD LEGER DO Jun 12, 2019 15:19
[2019-06-12 15:57] LABS: INR 1.69; PROTHROMBIN TIME 19.6 SECONDS (11.8-14.0)
[2019-06-12] MEDS: **VANCO AFTER HD** MISC XX SCH (16:00)
[2019-06-12] MEDS: WARFARIN SOD 4 MG TAB PO SCH (17:39)
[2019-06-12] MEDS: ATORVASTATIN 20 MG TAB PO SCH (17:39)
[2019-06-12] MEDS: METOPROLOL TART 25 MG TABLET PO SCH (21:00)
[2019-06-12 22:00] VITALS: BP 102/67
[2019-06-13 06:00] VITALS: BP 107/64
[2019-06-13] MEDS: OYSTER SHELL CALCIUM 500 MG TAB PO SCH (06:01)
[2019-06-13] MEDS: VITAMIN D 1,000 INTERNATIONAL UNITS TABLET PO SCH (06:02)
[2019-06-13] MEDS: CYANOCOBALAMIN 500 MCG TAB PO SCH (06:02)
[2019-06-13] MEDS: ASPIRIN 81 MG ENTERIC TAB PO SCH (06:02)
[2019-06-13] MEDS: predniSONE 20 MG TAB PO SCH (06:03)
[2019-06-13] MEDS: ATORVASTATIN 20 MG TAB PO SCH (06:03)
[2019-06-13] MEDS: ACETAMINOPHEN TAB 650MG DOSE (2X325MG) PO PRN ×2 (06:04→22:54)
[2019-06-13] MEDS: METOPROLOL TART 25 MG TABLET PO SCH ×3 (06:15→21:15)
[2019-06-13 06:41] LABS: HEMATOCRIT 37.3 % (42.0-52.0); HEMOGLOBIN 12.2 g/dl (13.5-17.5); MEAN CORPUSCULAR HEMOGLOBIN 33.3 pg (27.0-33.0); MEAN CORPUSCULAR HGB CONC 32.7 g/dl (32.0-36.5); MEAN CORPUSCULAR VOLUME 101.9 fl (80.0-96.0); PLATELET COUNT, AUTOMATED 138 10^3/uL (150-450); RED BLOOD COUNT 3.66 10^6/uL (4.30-6.10); WHITE BLOOD COUNT 12.2 10^3/uL (4.0-10.0)
[2019-06-13 07:23] LABS: CALCIUM LEVEL 8.8 MG/DL (8.8-10.2); CREATININE FOR GFR 8.2 MG/DL (0.70-1.30); GLOMERULAR FILTRATION RATE 8.4 (>42); POTASSIUM SERUM 5.3 MEQ/L (3.5-5.1); VANCOMYCIN RANDOM 21.6 UG/ML
[2019-06-13] MEDS: LevoFLOXacin 250 MG TABLET PO SCH (07:42)
[2019-06-13] MEDS: HumaLOG INSULIN (NovoLOG) PER UNIT SC SCH ×4 (07:43→21:16)
[2019-06-13] MEDS: (RENVELA) SEVELAMER **CARBONate** 800 MG TAB PO SCH ×3 (07:43→17:38)
[2019-06-13] MEDS: ADVAIR HFA 115/21MCG INHALER INH SCH ×2 (08:40→19:54)
[2019-06-13] MEDS ORDERED: HEPARIN 1,000 UNITS/ML 10ML VIAL (FOR RADIOLOGY& DIALYSIS ONLY)(J1644-10) IV ONE (12:00)
[2019-06-13 14:00] VITALS: BP 116/78
[2019-06-13] MEDS: hydrOXYzine 25 MG TAB PO SCH ×2 (14:18→21:15)
[2019-06-13 14:43] LABS: ALBUMIN 2.9 GM/DL (3.2-5.2); BILIRUBIN,DIRECT 0.7 MG/DL (0.0-0.2); BILIRUBIN,TOTAL 1.1 MG/DL (0.2-1.0); PHOSPHORUS LEVEL 4.9 MG/DL (2.5-4.9); TOTAL PROTEIN 6.4 GM/DL (6.4-8.2)
--- NOTE | 2019-06-13 15:24 | PHACANCOPD ---
PHARMACY VANCOMYCIN DOSING Pt Demographics Demographics Patient Age:74 , Weight:137.000 , Gender: male Adjusted Body Weight Date: 06/04/19, Adjusted Body Weight: Kg Vancomycin Vancomycin Target Ranges: 15-20 mcg/ml Vancomycin Load Y/N: Yes Load Dose Date Time Vancomycin Load Dose: 2000mg Date: 06-04 Time: 2300 Vancomycin Dose Date: 06/04/19. Current Vancomycin Dose: [HD] Intermittent Dosing?: Yes Labs Micro Microbiology 06/09/19 Blood Culture - Preliminary, Resulted No Growth after 72 hours. All specime... 06/08/19 Blood Culture - Final, Complete NO GROWTH AFTER 5 DAYS 06/07/19 Blood Culture - Final, Complete NO GROWTH AFTER 5 DAYS 06/06/19 Blood Culture - Final, Complete Stenotrophomonas Maltophilia 06/06/19 Blood Culture - Final, Complete Stenotrophomonas Maltophilia 06/05/19 Blood Culture - Final, Complete Staph.aureus Methicillin Resis 06/05/19 Blood Culture - Final, Complete Staph.aureus Methicillin Resis 06/04/19 Acid Fast Stain - Final, Resulted 06/04/19 Mycobacterial Culture, Resulted Pending 06/04/19 Gram Stain - Final, Complete 06/04/19 Sputum Culture - Final, Complete 06/04/19 Blood Culture - Final, Complete Staph.aureus Methicillin Resis 06/04/19 Gastrointestinal Tract Panel (PCR) - Final, Complete 06/04/19 Respiratory Virus Panel (PCR) (ST[facility]ISLAV) - Final, Complete 06/04/19 Blood Culture - Final, Complete Staph.aureus Methicillin Resis Creatinine Clearance Date:06/04/19. Creatinine Clearance: [HD]. Pending Labs Random 06-05 in am Assessment and Plan Maintaining Current Dose?: No Reason for dose change: Other Pharmacist Note Pharmacist Note Date: 06/13/19. Pharmacist note: random level this morning resulted @ 21.6. We'll give 500 mg after dialysis today. Pharmacy will continue to monitor and make adjustments as needed Date: 06/04/19. Pharmacist note:Will monitor and make adjustments as needed. TYLER GRANT PHARMACY Jun 13, 2019 15:24
[2019-06-13 15:59] LABS: INR 1.78; PROTHROMBIN TIME 20.5 SECONDS (11.8-14.0)
[2019-06-13] MEDS ORDERED: VANCOMYCIN HCL 500 MG in D5W MINI-BAG PLUS 100 ML IV ONE (16:00)
[2019-06-13] MEDS: **VANCO AFTER HD** MISC XX SCH (16:00)
[2019-06-13] MEDS: WARFARIN SOD 4 MG TAB PO SCH (17:38)
--- NOTE | 2019-06-13 18:12 | IPNPDOC ---
Text Note Date of Service The patient was seen on 06/13/19. NOTE Subjective: No any acute events overnight. Patient denies fever, chills, nausea, vomiting, shortness of breath, diarrhea Objective: NAD, obese male HEENT: Extraocular muscles intact. He has right eye blindness. Mucous membranes are moist. No JVD Cardiovascular: S1, S2, regular rate. 1+ edema of the lower extremities. Respiratory: CTA Abdomen: Soft, obese, positive bowel sounds. Nontender. Moderately distended Musculoskeletal: The patient has left transmetatarsal amputation. 1+ edema of the right lower extremity. SKULL GRINDER: No focal deficit. Moves all 4 limbs Assessment and plan: Patient is 74 years old male with past medical history of end-stage renal diseases on dialysis who was admitted with history of falls, generalized weakness and hypotension. Patient was found to have bilateral pulmonary infiltrates consistent with pneumonia. Patient received broad-spectrum antibiotics and liver head due to septic shock. Also patient was found to have MRSA bacteremia most likely from permanent catheter infection, which was removed on 06/06/19. Septic shock Most likely secondary to MRSA, Stenotrophomonas bacteremia superimposed with bilateral pneumonia Blood cultures were positive for methicillin-resistant Staphylococcus aureus (MRSA) on , four sets and on 06/06/2019, two sets were positive for Stenotrophomonas in the port. Subsequently blood cultures were all negative. Bacteremia most likely secondary to infected hemodialysis catheter which was r emoved Patient has pacemaker and he is in the risk of seeding the hardware. ID Dr. Kam recommended 4 weeks of vancomycin during dialysis. Endo-therapy will be 07/05/19 Will continue Levaquin 250 mg 4 every 48 hours Stenotrophomonas, the end will be 06/26/19 LISA was negative for vegetation MRSA bacteremia with pacemaker in place See above Acute metabolic encephalopathy resolved. No any focal neurological deficit Secondary to sepsis CT head negative Chronic A. fib with RVR rate controlled now Continue to monitor INR Elevated troponin Trended down Secondary to demand ischemia due to atrial fibrillation with rapid ventricular rate Patient denied any chest pain No any ischemic changes on the EKG Anemia - likely 2/2 ESRD Hg is at baseline Bilateral pneumonia Imaging studies showed bilateral pulmonary infiltrates, patient received broad- spectrum antibiotics with positive effect Continue incentive spirometry Hypotension Improved Hyperlipidemia Patient has obesity and diabetes, he will benefit from statin therapy I started high intensity statin ELISSA on CPAP with moderate pulmonary hypertension and chronic right heart failure non complaint IDDM2 Diabetes diet ISS Morbid obesity Patients BMI is 38.5 Complicating medical care Rehab: will need continued rehab VS,Genae, I+O VS, Fishbone, I+O Laboratory Tests 06/13/19 06:29 Vital Signs Date Time Temp Pulse Resp B/P (MAP) Pulse Ox O2 Delivery O2 Flow Rate FiO2 06/13/19 14:00 97.0 85 18 116/78 (91) 95 Room Air 06/09/19 16:33 2.0 I&O- Last 24 Hours up to 6 AM 06/13/19 06:00 Intake Total 2416 ml Balance 2416 ml RICHARD LEGER DO Jun 13, 2019 18:12
[2019-06-13 22:00] VITALS: BP 125/72
--- NOTE | 2019-06-13 22:32 | IPN ---
DATE: 06/12/2019 Irwin is seen and examined at the bedside. He complains of some localized drainage in the right inguinal area where nursing staff has placed a dressing. Has been afebrile and denies any shortness of breath, chest pain or leg edema. Temperature 97.6, pulse 89, respiratory rate 20, blood pressure 110/70, saturating 90-98% on room air. Intake yesterday was 1400. Weight in the bed scale today is not recorded. General: The patient is seen lying in bed, elderly male, awake, alert, in no apparent distress. Has a chronic stutter and a speech that is hard to understand. The right eye is blind. The mucous membranes are moist. The neck is supple. There is no jugular venous distension. Cardiac: S1, S2, regular rate. Trace edema in the legs. Diminished breath sounds at the bases with scattered rhonchus. No accessory muscle use. No tachypnea. Seemed comfortable on room air. Abdomen is soft, obese and nontender. There is a dressing in the right inguinal area. Musculoskeletal: There is a left transmetatarsal amputation. There is a right upper extremity arteriovenous access that is patent. There is trace edema in the legs. Neurologic: He is oriented. His speech seems to be his baseline with a stutter. He follows commands and is conversational. LABS: White count 9.5, hemoglobin 12.2, platelets 121. There is no recent chemistry. Magnesium 2.3. INR 1.6. INPATIENT MEDICATIONS: He continues on renally dosed vancomycin and oral Levaquin. He was started on Lipitor 40 mg by mouth daily and metoprolol 25 mg by mouth twice daily. Remainder of medications are unchanged from prior. PROBLEMS: 1. End-stage renal disease, on hemodialysis on Thursday, Thursday, Thursday schedule. He is well dialyzed. His right arm arteriovenous access is in use. Next dialysis treatment will be on Thursday. Labs are ordered for tomorrow as well. 2. Methicillin-resistant Staphylococcus aureus (MRSA) bacteremia, likely related to infected tunneled hemodialysis catheter, which has been removed. Antibiotics are as per infectious disease recommendation. He is on renally dosed vancomycin and Levaquin. The IV vancomycin can be arranged to be given in the outpatient hemodialysis unit. 3. Stenotrophomonas bacteremia. He is on oral Levaquin as recommended by infectious diseases and it is renally dosed. 4. Anemia secondary to end-stage renal disease. Hemoglobin is optimal and CBC has been ordered for tomorrow. 5. Subtherapeutic international normalized ratio (INR). INR is 1.6. It has been getting lower. He has a history of atrial fibrillation. Coumadin is to be adjusted by the primary service
[2019-06-14 06:00] VITALS: BP 126/68
[2019-06-14] MEDS ORDERED: diphenhydrAMINE 25 MG CAP PO ONE ×2 (06:00→09:00)
[2019-06-14] MEDS: VITAMIN D 1,000 INTERNATIONAL UNITS TABLET PO SCH (06:45)
[2019-06-14] MEDS: ATORVASTATIN 20 MG TAB PO SCH (06:45)
[2019-06-14] MEDS: CYANOCOBALAMIN 500 MCG TAB PO SCH (06:45)
[2019-06-14] MEDS: ASPIRIN 81 MG ENTERIC TAB PO SCH (06:45)
[2019-06-14] MEDS: OYSTER SHELL CALCIUM 500 MG TAB PO SCH (06:46)
[2019-06-14] MEDS: predniSONE 20 MG TAB PO SCH (06:46)
[2019-06-14] MEDS: hydrOXYzine 25 MG TAB PO SCH ×2 (06:51→21:35)
[2019-06-14] MEDS: ADVAIR HFA 115/21MCG INHALER INH SCH ×2 (07:42→19:56)
[2019-06-14] MEDS: METOPROLOL TART 25 MG TABLET PO SCH ×2 (07:57→21:00)
[2019-06-14] MEDS: (RENVELA) SEVELAMER **CARBONate** 800 MG TAB PO SCH ×3 (08:05→16:56)
[2019-06-14] MEDS: HumaLOG INSULIN (NovoLOG) PER UNIT SC SCH ×4 (08:05→21:00)
[2019-06-14] MEDS ORDERED: diphenhydrAMINE INJ 50MG/ML VIAL (J1200) IV ONE (08:30)
[2019-06-14 10:08] LABS: HEMOGLOBIN 11.4 g/dl (13.5-17.5); MEAN CORPUSCULAR HEMOGLOBIN 33.4 pg (27.0-33.0); MEAN CORPUSCULAR HGB CONC 32.6 g/dl (32.0-36.5); MEAN CORPUSCULAR VOLUME 102.6 fl (80.0-96.0); PLATELET COUNT, AUTOMATED 140 10^3/uL (150-450); RED BLOOD COUNT 3.41 10^6/uL (4.30-6.10); WHITE BLOOD COUNT 9.2 10^3/uL (4.0-10.0)
[2019-06-14 10:21] LABS: CALCIUM LEVEL 8.1 MG/DL (8.8-10.2); CREATININE FOR GFR 7.34 MG/DL (0.70-1.30); GLOMERULAR FILTRATION RATE 9.5 (>42); POTASSIUM SERUM 4.7 MEQ/L (3.5-5.1)
--- NOTE | 2019-06-14 11:20 | IPN ---
DATE OF SERVICE: 06/13/2019 SUBJECTIVE: Irwin was seen and examined in the hemodialysis unit and later at the bedside. He was very restless and itchy during his dialysis treatment. He pulled out his peripheral IV, and he also disengaged his dialysis needle and caused an infiltrate in his fistula. He complains of serosanguineous discharge in the right groin. Temperature 97.6, pulse 70, respiratory rate 20, blood pressure 107/64, saturating 100% on room air. Intake yesterday was 1959. Dialysis today removed only for 330 mL because of early termination of treatment after 1 hour. General: The patient is seen lying in bed, morbid morbidly obese male awake, alert and conversational and interactive, chronic stutter and difficult to understand speech. Right eye blindness. Moist mucous membranes. No jugular venous distension. Heart sounds are regular. S1, S2. 1+ leg and thigh edema. Respiratory: Lungs are clear to auscultation. No crackle or rale or rhonchus. Abdomen is soft and very obese and nontender. There is some serosanguineous fluid draining from the right inguinal region where there is a pad that is soaked. His gown is also soaked in that area. Musculoskeletal: The right upper extremity fistula is patent. There is a left transmetatarsal amputation. There is trace to 1+ edema of the lower extremities. Neurologic: He has chronic speech changes and dysarthria. He is cooperative with physical exam and oriented. White count 12.2, hemoglobin 12.2, platelet 138. Sodium 141, potassium 5.3, BUN 100. INPATIENT MEDICATIONS: I added hydroxyzine and Benadryl. He continues on renally dosed vancomycin. PROBLEMS: 1. End-stage renal disease. On hemodialysis on a Thursday, Thursday, Thursday schedule. He was only dialyzed for 1 hour today. His treatment had to be cut short because he was very restless. He pulled out his peripheral IV and one of his dialysis needleS. He complained of itching. He will be dialyzed again tomorrow. His blood urea nitrogen is 100. That may be causing some of the itch. I have ordered hydroxyzine and Benadryl. I would plan to do a 4 hour treatment tomorrow with premedication for his pruritus. 2. Pruritus. It has worsened. It caused his dialysis treatment to be cut short today. I wonder if it could be related to recently initiated stati. I will add on aspartate aminotransferase (AST) and alanine transaminase (ALT) to the labs today, and I have also added on hydroxyzine and Benadryl to be given pre-dialysis. We will also check a phosphorus level as that can contribute to pruritus. 3. Hyperkalemia. It is due to renal failure. He could only be dialyzed for 1 hour today. He will be dialyzed again tomorrow, hopefully for a full treatment for correction of his hyperkalemia. 4. MRSA bacteremia likely related to infected tunneled hemodialysis catheter, which was removed, and he continues on renally dosed vancomycin per infectious disease with a therapeutic random vancomycin level today. He remains afebrile. His white count is slightly increased. 5. Anemia of chronic renal failure. Hemoglobin is optimal and Aranesp is held. 6. Serosanguineous drainage from right groin. Apparently, the patient had a central line placed in that area. His seeping fluid did not seem to be purulent. There is no local erythema or infectious sign. He is hypervolemic and I would plan to try and remove 2 liters with the next treatment as tolerated by his blood pressures.
[2019-06-14] MEDS ORDERED: HEPARIN 1,000 UNITS/ML 10ML VIAL (FOR RADIOLOGY& DIALYSIS ONLY)(J1644-10) IV ONE (13:00)
[2019-06-14 14:00] VITALS: BP 118/68
[2019-06-14] MEDS ORDERED: guaiFENesin SYRUP 200 MG/10 ML UDC PO PRN (15:15)
--- NOTE | 2019-06-14 15:32 | IPNPDOC ---
Date Seen The patient was seen on 06/14/19. Progress Note SUBJECTIVE: Patient is a 74 yo M with a past medical history of ESRD on dialysis who was admitted for generalized weakness and hypotension. Patient denies any acute events overnight. Patient complains that there continues to be fluid leaking from his leg, he stated this has been happening since Thursday. He has stated he is "always wet and cold because no one will give me a change of clothes." Patient denies fever, chills, nausea, vomiting, shortness of breath, diarrhea, and hematuria. OBJECTIVE: Vital signs: Please see below PHYSICAL EXAMINATION: General: No acute distress, obese male complaining of "being wet from the hole in my leg," AAOx3 HEENT: Right eye blindness. Mucous membranes are moist. Cardiovascular: Regular rate and rhythm, +S1 and S2. Respiratory: Clear to auscultation b/l. No wheezes, rales, or rhonchi. Abdomen: Soft, obese, positive bowel sounds. Nontender. Moderately distended. Reducible umbilical hernia. Musculoskeletal: The patient has left transmetatarsal amputation. 1+ edema of the right lower extremity. Extremities: 1+ edema in the lower extremities. No clubbing or cyanosis. 2+ peripheral pulses b/l. Copious amounts of serosanguineous fluid leaking from right groin area where there was previously a femoral central line- it has soa ked through the towel over top of the area and his hospital gown. CIRCUIT CLERK: No focal deficit. Moves all 4 limbs. ASSESSMENT: Patient is a 74 year old male with with a past medical history of ESRD on dialysis who was admitted for generalized weakness and hypotension. Patient was found to have bilateral pulmonary infiltrates consistent with pneumonia. Patient received broad-spectrum antibiotics and liver head due to septic shock. Patient was also found to have MRSA bacteremia most l ikely from permanent catheter infection, which was removed on 06/06/19. PLAN: 1. MRSA bacteremia, probably infected hemodialysis catheter status post removal: Patient will need intravenous (IV) vancomycin for four weeks for complicated Staphylococcus aureus bacteremia since he has a pacemaker, at risk of seeding the hardware. Continue IV vancomycin for four weeks that could be given at dialysis from first negative culture. End of therapy would be 07/05/2019. 2. Stenotrophomonas bacteremia: Continue oral Levaquin 250 mg Q48 hr. 3. Serosanguineous fluid leakage from where right femoral central line was placed: Consult vascular surgery for options. Patient states and is confirmed by staff that the leakage has caused him to change his hospital gown many times, that the fluid has soaked through towels and 4x4s, and there remains a copious amount that is leaking. GME ATTESTATION My faculty preceptor for this patient encounter was physically present during the encounter and was fully available. All aspects of the patient interview, examination, medical decision making process, and medical care plan development were reviewed and approved by the faculty preceptor. The faculty preceptor is aware and concurs with the plan as stated in the body of this note and will attest to such by his/her cosignature. VS, I&O, 24H, Fishbone Vital Signs/I&O Vital Signs Date Time Temp Pulse Resp B/P (MAP) Pulse Ox O2 Delivery O2 Flow Rate FiO2 06/14/19 14:00 97.6 86 20 118/68 (85) 100 Room Air 06/09/19 16:33 2.0 I&O- Last 24 Hours up to 6 AM 06/14/19 05:59 Intake Total 2635 ml Output Total 338 ml Balance 2297 ml Laboratory Data 24H LABS Laboratory Tests 2 06/13/19 16:53: Bedside Glucose (Misc Panel) 303H 06/13/19 20:40: Bedside Glucose (Misc Panel) 281H 06/14/19 06:43: Bedside Glucose (Misc Panel) 165H 06/14/19 09:09: Nucleated Red Blood Cells % (auto) 0.0, Anion Gap 10, Glomerular Filtration Rate 9.5L, Calcium Level 8.1L 06/14/19 13:52: Bedside Glucose (Misc Panel) 171H CBC/BMP Laboratory Tests 06/14/19 09:09 Microbiology Microbiology 06/09/19 Blood Culture - Final, Complete NO GROWTH AFTER 5 DAYS 06/08/19 Blood Culture - Final, Complete NO GROWTH AFTER 5 DAYS 06/07/19 Blood Culture - Final, Complete NO GROWTH AFTER 5 DAYS 06/06/19 Blood Culture - Final, Complete Stenotrophomonas Maltophilia 06/06/19 Blood Culture - Final, Complete Stenotrophomonas Maltophilia 06/05/19 Blood Culture - Final, Complete Staph.aureus Methicillin Resis 06/05/19 Blood Culture - Final, Complete Staph.aureus Methicillin Resis 06/04/19 Acid Fast Stain - Final, Resulted 06/04/19 Mycobacterial Culture, Resulted Pending 06/04/19 Gram Stain - Final, Complete 06/04/19 Sputum Culture - Final, Complete 06/04/19 Blood Culture - Final, Complete Staph.aureus Methicillin Resis 06/04/19 Gastrointestinal Tract Panel (PCR) - Final, Complete 06/04/19 Respiratory Virus Panel (PCR) (STANISLAV) - Final, Complete 06/04/19 Blood Culture - Final, Complete Staph.aureus Methicillin Resis LANDEN MIRANDA OMS-IV Jun 14, 2019 15:32
[2019-06-14 15:34] LABS: INR 1.92; PROTHROMBIN TIME 21.7 SECONDS (11.8-14.0)
--- NOTE | 2019-06-14 16:42 | IPNPDOC ---
Text Note Date of Service The patient was seen on 06/14/19. NOTE Subjective: No any acute events overnight. Patient complains of oozing serosa nguineous fluid from the right groin area Patient denies fever, chills, nausea, vomiting, shortness of breath, diarrhea Objective: NAD, obese male HEENT: Extraocular muscles intact. He has right eye blindness. Mucous membranes are moist. No JVD Cardiovascular: S1, S2, regular rate. 1+ edema of the lower extremities. Respiratory: CTA Abdomen: Soft, obese, positive bowel sounds. Nontender. Moderately distended Musculoskeletal: The patient has left transmetatarsal amputation. 1+ edema of the right lower extremity. CORE FEEDER: No focal deficit. Moves all 4 limbs Assessment and plan: Patient is 74 years old male with past medical history of end-stage renal diseases on dialysis who was admitted with history of falls, generalized weakness and hypotension. Patient was found to have bilateral pulmonary infiltrates consistent with pneumonia. Patient received broad-spectrum antibiotics and liver head due to septic shock. Also patient was found to have MRSA bacteremia most likely from permanent catheter infection, which was removed on 06/06/19. Septic shock resolved Most likely secondary to MRSA, Stenotrophomonas bacteremia superimposed with bilateral pneumonia Blood cultures were positive for methicillin-resistant Staphylococcus aureus (MRSA) on , four sets and on 06/06/2019, two sets were positive for Stenotrophomonas in the port. Subsequently blood cultures were all negative. Bacteremia most likely secondary to infected hemodialysis catheter which was removed Patient has pacemaker and he is in the risk of seeding the hardware. ID Dr. Kam recommended 4 weeks of vancomycin during dialysis. Endo-therapy will be 07/05/19 Will continue Levaquin 250 mg 4 every 48 hours Stenotrophomonas, the end will be 06/26/19 LISA was negative for vegetation MRSA bacteremia with pacemaker in place See above Acute metabolic encephalopathy resolved. No any focal neurological deficit Secondary to sepsis CT head negative Chronic A. fib with RVR rate controlled now Continue to monitor INR Elevated troponin Trended down Secondary to demand ischemia due to atrial fibrillation with rapid ventricular rate Patient denied any chest pain No any ischemic changes on the EKG Anemia - likely 2/2 ESRD Hg is at baseline Bilateral pneumonia Imaging studies showed bilateral pulmonary infiltrates, patient received broad- spectrum antibiotics with positive effect Continue incentive spirometry Hypotension Improved Hyperlipidemia Patient has obesity and diabetes, he will benefit from statin therapy I started high intensity statin ELISSA on CPAP with moderate pulmonary hypertension and chronic right heart failure non complaint IDDM2 Diabetes diet ISS Morbid obesity Patients BMI is 38.5 Complicating medical care Serosanguineous leakage Patient has serosanguineous oozing leakage from right groin area after triple- lumen removal 5 days ago Patient is on the oral target anticoagulation and most likely he will need cauterization appreciate/agree with surgeon consult Jluis SPIVEY, I+O Jluis SPIVEY I+O Laboratory Tests 06/14/19 09:09 Vital Signs Date Time Temp Pulse Resp B/P (MAP) Pulse Ox O2 Delivery O2 Flow Rate FiO2 06/14/19 14:00 97.6 86 20 118/68 (85) 100 Room Air 06/09/19 16:33 2.0 I&O- Last 24 Hours up to 6 AM 06/14/19 06:00 Intake Total 2265 ml Output Total 338 ml Balance 1927 ml RICHARD LEGER DO Jun 14, 2019 16:42
[2019-06-14] MEDS: **VANCO AFTER HD** MISC XX SCH (16:55)
[2019-06-14] MEDS: VANCOMYCIN HCL 1,000 MG, VIAL MATE ADAPTER 1 EACH in D5W 250 ML IV SCH (16:56)
[2019-06-14] MEDS: WARFARIN SOD 4 MG TAB PO SCH (16:56)
--- NOTE | 2019-06-14 18:19 | IPN ---
DATE: 06/14/2019 SUBJECTIVE: Irwin is seen and examined this morning in the hemodialysis unit, receiving his maintenance treatment as yesterday's treatment was cut short because of the patient's restlessness and trouble maintaining proper cannulation. He was some premedicated with Benadryl and hydroxyzine predialysis. He complains of ongoing serosanguineous drainage from the right groin. Temperature 97.9, pulse 68, respiratory rate 18, blood pressure 126/68, saturating 97% on room air. Intake yesterday was 2.5 liters, weight in the bed scale today is not recorded. Dialysis fluid removal today is 3 liters. General: The patient is seen in the hemodialysis unit receiving his treatment, awake, alert, oriented, chronic dysarthria. 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 Neck is supple. Jugular veins are mildly elevated. Heart sounds are irregular, S1, S2. The right extremity fistula is in use. Chest is clear to auscultation. He is comfortable on room air. There is no crackle or rale. Abdomen is obese, distended and nontender. There is prominent discharge from the right groin noted; his gown is soaked at that area. Legs show 1+ edema bilaterally. Neurologic: He is oriented and interactive. There is chronic dysarthria. LABS: Sodium 141, potassium 4.7, BUN 92, AST, ALT are normal. Hemoglobin 11.4. INPATIENT MEDICATIONS: Reviewed by myself. He was started on diphenhydramine and hydroxyzine. Remainder of medications are unchanged from prior. PROBLEMS; 1. End-stage renal disease on hemodialysis. Yesterday his treatment was cut short due to the patient's pruritus and restlessness; he disengaged his dialysis needle and pulled out his peripheral IV. Today, he was premedicated with Benadryl and hydroxyzine predialysis and was dialyzed for 4 hours with 3 liters of fluid removed. We will dialyze him again tomorrow. His fistula is in good use. 2. Status post septic shock related to methicillin-resistant Staphylococcus aureus (MRSA) bacteremia, likely secondary to infected hemodialysis catheter which was removed. He continues on renally dosed vancomycin with end date of therapy being July 05, 2019. He remains afebrile, hemodynamically stable. He is also receiving oral Levaquin, renally dosed, for Stenotrophomonas bacteremia. 3. Anemia of chronic renal failure; it is stable. Hemoglobin is optimal. Aranesp is presently on hold. 4. Hypertension. Blood pressures are stable. There is no significant hypotension of hemodialysis. There are hold parameters written with his low dose beta kajal. 5. Subtherapeutic international normalized ratio (INR). I suggest that his Coumadin dose should be increased. His INR has been low for 3 days. Today's INR is pending. He has chronic atrial fibrillation. Would increase Coumadin to 5 mg. Defer to primary team.
--- NOTE | 2019-06-14 19:17 | IPNPDOC ---
Date Seen The patient was seen on 06/14/19. Progress Note Vascular surgery was asked to see this patient well known to our service regarding drainage from the right groin status post a femoral central line placement and removal. Dr. Kam informed my PA that there was bleeding from the femoral access site and we needed to urgently take care of it. However, upon seeing the patient at the bedside, the nurse said there has not been any bleeding but there was copious serous drainage, rather continuous, since the line was discontinued. The patient frequently has volume overload and significant peripheral edema. All 4 extremities are very edematous and swollen chronically, and any break in the skin results in significant serous output. He did not have dialysis Thursday or Thursday, and had inadequate dialysis yesterday and likely was very volume overloaded. Per the nurse, he was soaking ABD pads and dressings faster than they could put them on. This is not surprising considering his peripheral edema. However, the patient had a good dialysis treatment today, with significant volume off and the serous drainage has stopped this evening. I discussed with the nurse that once he becomes volume overloaded again, if the skin has not healed over, it may continue to drain. Therefore, I placed a wound VAC in order to manage the drainage should it recur. If it does not recur, the wound VAC can then be discontinued in 24-48 hours. If it needs to be replaced due to recurrence of drainage, it can be done by the wound care nurse on Thursday. Wound VAC placement: The patient's right groin was thoroughly cleaned and dried. No sting skin prep was placed around the femoral access site. No drainage was noted while placing the wound VAC. A small ostomy ring was placed around the femoral access site to help create a better seal for the vac. A small piece of Adaptic was placed within the ring over the skin. Drape was placed from the ostomy ring over the thigh away from the abdomen in order to track the vac away from the skin fold. A small piece of foam was placed over the ostomy ring and the Adaptic and tract over the thigh and covered with drape. The track pad was placed laterally on the thigh to avoid creating any pressure on the abdomen or the groin. The VAC was placed and -125 mmHg and had an excellent seal. VS, I&O, 24H, Fishbone Vital Signs/I&O Vital Signs Date Time Temp Pulse Resp B/P (MAP) Pulse Ox O2 Delivery O2 Flow Rate FiO2 06/14/19 14:00 97.6 86 20 118/68 (85) 100 Room Air 06/09/19 16:33 2.0 I&O- Last 24 Hours up to 6 AM 06/14/19 06:00 Intake Total 2265 ml Output Total 338 ml Balance 1927 ml Laboratory Data 24H LABS Laboratory Tests 2 06/13/19 20:40: Bedside Glucose (Misc Panel) 281H 06/14/19 06:43: Bedside Glucose (Misc Panel) 165H 06/14/19 09:09: Nucleated Red Blood Cells % (auto) 0.0, Anion Gap 10, Glomerular Filtration Rate 9.5L, Calcium Level 8.1L 06/14/19 13:52: Bedside Glucose (Misc Panel) 171H 06/14/19 15:13: Prothrombin Time 21.7H, Prothromb Time International Ratio 1.92 06/14/19 17:20: Bedside Glucose (Misc Panel) 276H CBC/BMP Laboratory Tests 06/14/19 09:09 Microbiology Microbiology 06/09/19 Blood Culture - Final, Complete NO GROWTH AFTER 5 DAYS 06/08/19 Blood Culture - Final, Complete NO GROWTH AFTER 5 DAYS 06/07/19 Blood Culture - Final, Complete NO GROWTH AFTER 5 DAYS 06/06/19 Blood Culture - Final, Complete Stenotrophomonas Maltophilia 06/06/19 Blood Culture - Final, Complete Stenotrophomonas Maltophilia 06/05/19 Blood Culture - Final, Complete Staph.aureus Methicillin Resis 06/05/19 Blood Culture - Final, Complete Staph.aureus Methicillin Resis 06/04/19 Acid Fast Stain - Final, Resulted 06/04/19 Mycobacterial Culture, Resulted Pending 06/04/19 Gram Stain - Final, Complete 06/04/19 Sputum Culture - Final, Complete 06/04/19 Blood Culture - Final, Complete Staph.aureus Methicillin Resis 06/04/19 Gastrointestinal Tract Panel (PCR) - Final, Complete 06/04/19 Respiratory Virus Panel (PCR) (STANISLAV) - Final, Complete 06/04/19 Blood Culture - Final, Complete Staph.aureus Methicillin Resis NOAH KAM MD Jun 14, 2019 19:17
[2019-06-14 22:00] VITALS: BP 107/67
[2019-06-15] MEDS: VITAMIN D 1,000 INTERNATIONAL UNITS TABLET PO SCH (05:44)
[2019-06-15] MEDS: CYANOCOBALAMIN 500 MCG TAB PO SCH (05:45)
[2019-06-15] MEDS: METOPROLOL TART 25 MG TABLET PO SCH ×2 (05:45→20:11)
[2019-06-15] MEDS: LevoFLOXacin 250 MG TABLET PO SCH (05:45)
[2019-06-15] MEDS: ASPIRIN 81 MG ENTERIC TAB PO SCH (05:45)
[2019-06-15] MEDS: ATORVASTATIN 20 MG TAB PO SCH (05:46)
[2019-06-15] MEDS: OYSTER SHELL CALCIUM 500 MG TAB PO SCH (05:49)
[2019-06-15 06:00] VITALS: BP 120/75
[2019-06-15] MEDS: ADVAIR HFA 115/21MCG INHALER INH SCH ×2 (07:50→20:59)
[2019-06-15] MEDS: (RENVELA) SEVELAMER **CARBONate** 800 MG TAB PO SCH ×3 (07:55→17:45)
[2019-06-15] MEDS: HumaLOG INSULIN (NovoLOG) PER UNIT SC SCH ×4 (07:55→20:12)
[2019-06-15 14:00] VITALS: BP 90/55
[2019-06-15] MEDS ORDERED: HEPARIN 1,000 UNITS/ML 10ML VIAL (FOR RADIOLOGY& DIALYSIS ONLY)(J1644-10) IV ONE (14:15)
[2019-06-15] MEDS: **VANCO AFTER HD** MISC XX SCH (16:00)
--- NOTE | 2019-06-15 16:01 | IPNPDOC ---
Text Note Date of Service The patient was seen on 06/15/19. NOTE Subjective: No any acute events overnight. Minimal serous discharge in wound vac Patient denies fever, chills, nausea, vomiting, shortness of breath, diarrhea Objective: NAD, obese male HEENT: Extraocular muscles intact. He has right eye blindness. Mucous m embranes are moist. No JVD Cardiovascular: S1, S2, regular rate. 1+ edema of the lower extremities. Respiratory: CTA Abdomen: Soft, obese, positive bowel sounds. Nontender. Moderately distended Musculoskeletal: The patient has left transmetatarsal amputation. 1+ edema of the right lower extremity. Wound vac in place ED TECH: No focal deficit. Moves all 4 limbs Assessment and plan: Patient is 74 years old male with past medical history of end-stage renal diseases on dialysis who was admitted with history of falls, generalized weakness and hypotension. Patient was found to have bilateral pulmonary infiltrates consistent with pneumonia. Patient received broad-spectrum antibiotics and liver head due to septic shock. Also patient was found to have MRSA bacteremia most likely from permanent catheter infection, which was removed on 06/06/19. Septic shock resolved Most likely secondary to MRSA, Stenotrophomonas bacteremia superimposed with bilateral pneumonia Blood cultures were positive for methicillin-resistant Staphylococcus aureus (MRSA) on , four sets and on 06/06/2019, two sets were positive for Stenotrophomonas in the port. Subsequently blood cultures were all negative. Bacteremia most likely secondary to infected hemodialysis catheter which was removed Patient has pacemaker and he is in the risk of seeding the hardware. ID Dr. Kam recommended 4 weeks of vancomycin during dialysis. Endo-therapy will be 07/05/19 Will continue Levaquin 250 mg 4 every 48 hours Stenotrophomonas, the end will be 06/26/19 LISA was negative for vegetation MRSA bacteremia with pacemaker in place See above Acute metabolic encephalopathy resolved. No any focal neurological deficit Secondary to sepsis CT head negative Chronic A. fib with RVR rate controlled now Continue to monitor INR Elevated troponin Trended down Secondary to demand ischemia due to atrial fibrillation with rapid ventricular rate Patient denied any chest pain No any ischemic changes on the EKG Anemia - likely 2/2 ESRD Hg is at baseline Bilateral pneumonia Imaging studies showed bilateral pulmonary infiltrates, patient received broad- spectrum antibiotics with positive effect Continue incentive spirometry Hypotension Improved Hyperlipidemia Patient has obesity and diabetes, he will benefit from statin therapy I started high intensity statin ELISSA on CPAP with moderate pulmonary hypertension and chronic right heart failure non complaint IDDM2 Diabetes diet ISS Morbid obesity Patients BMI is 38.5 Complicating medical care Serosanguineous leakage Patient has serosanguineous oozing leakage from right groin area after triple- lumen removal 5 days ago Wound vac placed on 06/14/19 VS,Fishbone, I+O VS, Fishbone, I+O Vital Signs Date Time Temp Pulse Resp B/P (MAP) Pulse Ox O2 Delivery O2 Flow Rate FiO2 06/15/19 14:00 97.2 67 16 90/55 (67) 100 Room Air 06/09/19 16:33 2.0 I&O- Last 24 Hours up to 6 AM 06/15/19 06:00 Intake Total 1950 ml Output Total 3000 ml Balance -1050 ml RICHARD LEGER DO Jun 15, 2019 16:01
[2019-06-15 16:10] LABS: INR 2.05; PROTHROMBIN TIME 22.9 SECONDS (11.8-14.0)
[2019-06-15 16:32] LABS: CALCIUM LEVEL 8.2 MG/DL (8.8-10.2); CREATININE FOR GFR 4.59 MG/DL (0.70-1.30); GLOMERULAR FILTRATION RATE 16.3 (>42); POTASSIUM SERUM 3.8 MEQ/L (3.5-5.1)
[2019-06-15] MEDS: WARFARIN SOD 4 MG TAB PO SCH (17:48)
[2019-06-15] MEDS: ACETAMINOPHEN TAB 650MG DOSE (2X325MG) PO PRN (17:49)
--- NOTE | 2019-06-15 18:37 | IPN ---
DATE: 06/15/2019 SUBJECTIVE: Irwin was seen and examined this morning in the hemodialysis unit receiving an additional hemodialysis treatment this week because of fluid overload with 2 liters of fluid to be removed today. He had a wound vacuum-assisted closure (VAC) placed in the right groin, where he has been having serosanguineous drainage. Temperature 97.4, pulse 65, respiratory rate 19, blood pressure 120/75, saturating 98% on room air. Review of intake and output yesterday shows he is net negative 1 liter in the past 24 hours. Weight in the bed scale today is not recorded. General: The patient is seen in the hemodialysis unit receiving an extra treatment, awake, alert in no apparent distress. Chronic dysarthria, unchanged from baseline. 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 Neck is supple. Jugular veins are elevated. Heart sounds are irregular, S1, S2. There is 2+ edema in the legs that comes up to the dependent area and the abdominal wall. The right upper extremity fistula is in use. Chest is clear to auscultation. He is comfortable on room air. There is no crackle or rale. Abdomen is obese, distended, and nontender. There is a wound vacuum-assisted closure (VAC) present in the right inguinal area. Neurologic: He is oriented and interactive. There is chronic dysarthria. LABORATORY DATA: White count 9.2, hemoglobin 11.4, platelets 140. Sodium 141, potassium 4.7, bicarbonate 25. INPATIENT MEDICATIONS: Reviewed by myself and noticed his prednisone was discontinued. Remainder of medications is unchanged from prior. PROBLEMS: 1. End-stage renal disease, on hemodialysis. The patient is volume (cut off). I would plan to do an extra hemodialysis treatment this week. He was dialyzed yesterday with 3 liters removed and dialyzed today with 2 liters removed. He has been exceeding the fluid restriction, and this is now added for 1500 mL maximum daily. His next dialysis will be on Thursday. 2. Hypertension. Blood pressures are fairly stable. There was some hypotension of hemodialysis today. We removed 3 liters yesterday and 2 liters today. His next hemodialysis treatment will be on Thursday. There are hold parameters written with his low-dose beta kajal. 3. Anemia of chronic renal failure. Hemoglobin is acceptable at 11.4. Aranesp remains on hold. 4. Marked serous drainage from right inguinal area, likely due to overall volume overloaded state. Will plan for extra dialysis treatment this week, and fluid restriction is added. He now has a wound VAC in place as well. 5. Status post septic shock related to methicillin-resistant Staphylococcus aureus (MRSA) bacteremia secondary to likely infected hemodialysis catheter, which was removed. He continues on renally dosed vancomycin with end date of therapy being July 05. He remains afebrile, hemodynamically stable, and is also receiving renally dosed oral Levaquin for Stenotrophomonas bacteremia.
[2019-06-15 22:00] VITALS: BP 105/59
[2019-06-16 06:00] VITALS: BP 97/60
[2019-06-16] MEDS: ADVAIR HFA 115/21MCG INHALER INH SCH (07:28)
[2019-06-16 07:46] VITALS: BP 97/60
[2019-06-16] MEDS: METOPROLOL TART 25 MG TABLET PO SCH (07:46)
[2019-06-16] MEDS: OYSTER SHELL CALCIUM 500 MG TAB PO SCH (07:50)
[2019-06-16] MEDS: HumaLOG INSULIN (NovoLOG) PER UNIT SC SCH (07:50)
[2019-06-16] MEDS: ATORVASTATIN 20 MG TAB PO SCH (07:50)
[2019-06-16] MEDS: ASPIRIN 81 MG ENTERIC TAB PO SCH (07:50)
[2019-06-16] MEDS: VITAMIN D 1,000 INTERNATIONAL UNITS TABLET PO SCH (07:50)
[2019-06-16] MEDS: (RENVELA) SEVELAMER **CARBONate** 800 MG TAB PO SCH (07:50)
[2019-06-16] MEDS: CYANOCOBALAMIN 500 MCG TAB PO SCH (07:50)
[2019-06-16] MEDS ORDERED: LEVO250T12 PO (08:03)
--- NOTE | 2019-06-16 16:26 | DS.PDOC ---
Discharge Summary General Date of Admission Jun 04, 2019 at 19:10 Date of Discharge 06/16/19 Discharge Summary PROCEDURES PERFORMED DURING STAY: None ADMITTING DIAGNOSES: Septic shock MRSA bacteremia with pacemaker in place Acute metabolic encephalopathy Chronic A. fib with RVR Elevated troponin Anemia - likely 2/2 ESRD Bilateral pneumonia Hypotension Hyperlipidemia ELISSA on CPAP with moderate pulmonary hypertension and chronic right heart failure IDDM2 obesity Serosanguineous leakage DISCHARGE DIAGNOSES: Septic shock MRSA bacteremia with pacemaker in place Acute metabolic encephalopathy Chronic A. fib with RVR Elevated troponin Anemia - likely 2/2 ESRD Bilateral pneumonia Hypotension Hyperlipidemia ELISSA on CPAP with moderate pulmonary hypertension and chronic right heart failure IDDM2 obesity Serosanguineous leakage COMPLICATIONS/CHIEF COMPLAINT: Hypotension. HISTORY OF PRESENT ILLNESS: Patient is 74 years old male with past medical history of end-stage renal diseases on dialysis who was admitted with history of falls, generalized weakness and hypotension. Patient was found to have bilateral pulmonary infiltrates consistent with pneumonia. Patient received broad-spectrum antibiotics due to septic shock. Also patient was found to have MRSA bacteremia most likely from permanent catheter infection, which was removed on 06/06/19. HOSPITAL COURSE: Following issue addressed Septic shock resolved Most likely secondary to MRSA, Stenotrophomonas bacteremia superimposed with bilateral pneumonia Blood cultures were positive for methicillin-resistant Staphylococcus aureus (MRSA) on , four sets and on 06/06/2019, two sets were positive for Stenotrophomonas in the port. Subsequently blood cultures were all negative. Bacteremia most likely secondary to infected hemodialysis catheter which was r emoved Patient has pacemaker and he is in the risk of seeding the hardware. ID Dr. Kam recommended 4 weeks of vancomycin during dialysis. Endo-therapy will be 07/05/19 Will continue Levaquin 250 mg 4 every 48 hours Stenotrophomonas, the end will be 06/26/19 LISA was negative for vegetation MRSA bacteremia with pacemaker in place See above Acute metabolic encephalopathy resolved. No any focal neurological deficit Secondary to sepsis CT head negative Chronic A. fib with RVR rate controlled now Continue to monitor INR Elevated troponin Trended down Secondary to demand ischemia due to atrial fibrillation with rapid ventricular rate Patient denied any chest pain No any ischemic changes on the EKG Anemia - likely 2/2 ESRD Hg is at baseline Bilateral pneumonia Imaging studies showed bilateral pulmonary infiltrates, patient received broad- spectrum antibiotics with positive effect Continue incentive spirometry Hypotension Improved Hyperlipidemia Patient has obesity and diabetes, he will benefit from statin therapy I started high intensity statin ELISSA on CPAP with moderate pulmonary hypertension and chronic right heart failure non complaint IDDM2 Diabetes diet ISS IDDM2 Patients BMI is 38.5 Complicating medical care Serosanguineous leakage Patient has serosanguineous oozing leakage from right groin area after triple- lumen removal 5 days ago Wound vac placed on 06/14/19. Removed on 06/16/19 DISCHARGE MEDICATIONS: Please see below. ALLERGIES: Please see below. PHYSICAL EXAMINATION ON DISCHARGE: VITAL SIGNS: Please see below. Objective: NAD, obese male HEENT: Extraocular muscles intact. He has right eye blindness. Mucous membra thad are moist. No JVD Cardiovascular: S1, S2, regular rate. 1+ edema of the lower extremities. Respiratory: CTA Abdomen: Soft, obese, positive bowel sounds. Nontender. Moderately distended Musculoskeletal: The patient has left transmetatarsal amputation. 1+ edema of the right lower extremity. Wound vac in place [employer]: No focal deficit. Moves all 4 limbs LABORATORY DATA: Please see below. IMAGING: PROCEDURE INFORMATION: Exam: CT Chest Without Contrast Exam date and time: 06/04/2019 5:05 PM Age: 74 years old Clinical indication: Abnormal findings; Abnormal radiologic exam of lung or chest; Additional info: Possible infiltrate on cxr, unknown source of infection TECHNIQUE: Imaging protocol: Computed tomography of the chest without contrast. Radiation optimization: All CT scans at this facility use at least one of these dose optimization techniques: automated exposure control; mA and/or kV adjustment per patient size (includes targeted exams where dose is matched to clinical indication); or iterative reconstruction. COMPARISON: CT Chest without contrast 08/11/2018 2:59 PM FINDINGS: Tubes, catheters and devices: Right internal jugular dialysis catheter extending into the right atrium. Pacemaker from the left. Lungs: Minimal bilateral lower lobe fibro-atelectatic change with mild diffuse patchy infiltrates bilaterally. Pleural space: Unremarkable. No pneumothorax. No pleural effusion. Heart: Unremarkable. No cardiomegaly. No pericardial effusion. Pulmonary arteries: The main pulmonary artery measures 44 mm. Aorta: The ascending thoracic aorta measures 40 mm. Lymph nodes: Unremarkable. No enlarged lymph nodes. Bones/joints: Unremarkable. No acute fracture. Soft tissues: Minimal bilateral gynecomastia. IMPRESSION: 1. Mild patchy bilateral pulmonary infiltrates which are new since 08/11/2018 and minimal bilateral lower lobe fibro-atelectatic change which is similar or slightly increased. 2. 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 3. Mild prominence of the main pulmonary artery measuring 44 mm which may be seen with pulmonary hypertension. 4. Interval placement of right internal jugular dialysis catheter into the right atrium since the prior study. PROGNOSIS: guarded ACTIVITY: [As tolerated]. DIET: cardiac DISCHARGE PLAN: SNF DISPOSITION: SNF DISCHARGE INSTRUCTIONS: above ITEMS TO FOLLOWUP ON ON OUTPATIENT: above DISCHARGE CONDITION: Stable TIME SPENT ON DISCHARGE: Greater than 20 minutes. Vital Signs/I&Os Vital Signs Date Time Temp Pulse Resp B/P (MAP) Pulse Ox O2 Delivery O2 Flow Rate FiO2 06/16/19 07:46 78 97/60 06/16/19 06:00 97.3 20 99 Room Air I&O- Last 24 Hours up to 6 AM 06/16/19 06:00 Intake Total 510 ml Output Total 2000 ml Balance -1490 ml Laboratory Data Labs 24H Laboratory Tests 2 06/15/19 16:44: Bedside Glucose (Misc Panel) 180H 06/15/19 20:03: Bedside Glucose (Misc Panel) 161H 06/16/19 05:44: Bedside Glucose (Misc Panel) 163H FSBS Laboratory Tests Test 06/15/19 16:44 06/15/19 20:03 06/16/19 05:44 Range/Units Bedside Glucose (Misc Panel) 180 161 163 83-110 MG/DL Microbiology Microbiology 06/09/19 Blood Culture - Final, Complete NO GROWTH AFTER 5 DAYS 06/08/19 Blood Culture - Final, Complete NO GROWTH AFTER 5 DAYS 06/07/19 Blood Culture - Final, Complete NO GROWTH AFTER 5 DAYS 06/06/19 Blood Culture - Final, Complete Stenotrophomonas Maltophilia 06/06/19 Blood Culture - Final, Complete Stenotrophomonas Maltophilia Discharge Medications Scheduled Aspirin (Aspirin EC) 81 Mg Tab, 81 MG PO DAILY, (Reported) Calcium Carbonate (Calcium Carbonate) 500 Mg Tablet, 500 MG PO DAILY, (Reported) Cholecalciferol (Vitamin D3) (Vitamin D3) 1,000 Unit Tablet, 1,000 UNITS PO DAILY, (Reported) Cyanocobalamin (Vitamin B-12) (Vitamin B-12) 500 Mcg Tab, 1,000 MCG PO DAILY, (Reported) Gabapentin (Gabapentin) 100 Mg Cap, 100 MG PO DAILY, (Reported) AT NOON Insulin Aspart (Novolog Flexpen) 100 Unit/Ml Inj, 1 DOSE SC DAILY, (Reported) PER SLIDING SCALE WITH BREAKFAST Levofloxacin (Levofloxacin) 250 Mg Tablet, 250 MG PO Q48H Lidocaine/Prilocaine (Lidocaine-Prilocaine Cream) 2.5%/2.5% Cream..g., 1 APLCT TOP ASDIRECTED, (Reported) APPLY TO DIALYSIS ACCESS SITE ONE HOUR PRIOR TO DIALYSIS MON, WED, FRI Metoprolol Tartrate (Metoprolol Tartrate) 25 Mg Tab, 25 MG PO BID, (Reported) Sevelamer Carbonate (Sevelamer Carbonate) 800 Mg Tab, 1,600 MG PO WM, (Reported) Umeclidinium [place] (Incruse Ellipta) 62.5 Mcg Blst.w.dev, 1 PUFF INH DAILY, (Reported) Warfarin Sodium (Warfarin Sodium) 4 Mg Tablet, 4 MG PO QPM, (Reported) Scheduled PRN Albuterol Sulfate (Ventolin Hfa) 108 Mcg/Act Aer, 2 PUFFS INH QID PRN for SHORTNESS OF BREATH, (Reported) Hydroxyzine HCl (Hydroxyzine HCl) 25 Mg Tablet, 25 MG PO BID PRN for ITCHING, (Reported) Nitroglycerin (Nitrostat) 0.4 Mg Subl, 0.4 MG SL NITRO PRN for ANGINA, (Reported) Allergies Coded Allergies: No Known Allergies (Verified , 03/22/19) RICHARD LEGER DO Jun 16, 2019 16:26
== END 2019-06-16 10:19 | DRG 280 ==
LOC: M ED 15:17 → M ED INP 19:10 → EEVIPCON 19:10 → ENRESERVTM 19:25 → ENRESERVDT 19:25 → M ICU 20:10 → M MSPAV 06-10 09:49
PROVIDERS: ADMIT Internal Medicine; ATTEND Internal Medicine
PROC: 06PY33Z Removal of Infusion Device from Lower Vein, Percutaneous Approach (ICD-10-PCS; principal; 2019-06-06)
PROC: 5A1D70Z Performance of Urinary Filtration, Intermittent, Less than 6 Hours Per Day (ICD-10-PCS; 2019-06-06)
PROC: B246ZZ4 Ultrasonography of Right and Left Heart, Transesophageal (ICD-10-PCS; 2019-06-09)
PROC: 0HH Skin and Breast, Insertion (ICD-10-PCS; 2019-06-14)
DX: T82.7XXA Infection and inflammatory reaction due to other cardiac and vascular devices, implants and grafts, initial encounter (principal); I21.A1 Myocardial infarction type 2; N18.6 End stage renal disease; R65.21 Severe sepsis with septic shock; G93.41 Metabolic encephalopathy; A41.02 Sepsis due to Methicillin resistant Staphylococcus aureus; J18.9 Pneumonia, unspecified organism; R57.1 Hypovolemic shock; I12.0 Hypertensive chronic kidney disease with stage 5 chronic kidney disease or end stage renal disease; E87.2 Acidosis; I48.20 Chronic atrial fibrillation, unspecified; J44.1 Chronic obstructive pulmonary disease with (acute) exacerbation; G47.33 Obstructive sleep apnea (adult) (pediatric); D63.1 Anemia in chronic kidney disease; E11.22 Type 2 diabetes mellitus with diabetic chronic kidney disease; D69.6 Thrombocytopenia, unspecified; N43.3 Hydrocele, unspecified; E66.01 Morbid (severe) obesity due to excess calories; Z79.4 Long term (current) use of insulin; Z95.0 Presence of cardiac pacemaker; Z79.82 Long term (current) use of aspirin; Z79.899 Other long term (current) drug therapy; Z79.01 Long term (current) use of anticoagulants; Z99.2 Dependence on renal dialysis; Z68.38 Body mass index [BMI] 38.0-38.9, adult; Y83.1 Surgical operation with implant of artificial internal device as the cause of abnormal reaction of the patient, or of later complication, without mention of misadventure at the time of the procedure; B95.62 Methicillin resistant Staphylococcus aureus infection as the cause of diseases classified elsewhere; R19.7 Diarrhea, unspecified; L29.9 Pruritus, unspecified; H54.3 Unqualified visual loss, both eyes; Z89.422 Acquired absence of other left toe(s)

== ENCOUNTER → 2019-06-21 | Outpatient (REF) ==
[~2019-06-21] MED LIST changes: +ACET1TAB55 PO; +ACET65SU PR; +DULC10SU2 PR; +FLEEENE12 PR; +VITAD1000T PO
[2019-06-21 08:00] LABS: HEMATOCRIT 34.1 % (42.0-52.0); MEAN CORPUSCULAR HEMOGLOBIN 33.4 pg (27.0-33.0); MEAN CORPUSCULAR HGB CONC 32.3 g/dl (32.0-36.5); MEAN CORPUSCULAR VOLUME 103.6 fl (80.0-96.0); RED BLOOD COUNT 3.29 10^6/uL (4.30-6.10); WHITE BLOOD COUNT 7.1 10^3/uL (4.0-10.0)
[2019-06-21 08:09] LABS: INR 2.37; PROTHROMBIN TIME 25.7 SECONDS (11.8-14.0)
[2019-06-21 08:21] LABS: CALCIUM LEVEL 8.3 MG/DL (8.8-10.2); CREATININE FOR GFR 5.6 MG/DL (0.70-1.30); POTASSIUM SERUM 4.9 MEQ/L (3.5-5.1)
[2019-06-21 08:40] LABS: PLATELET COUNT, AUTOMATED 85 10^3/uL (150-450)
== END ==
LOC: SKLAB3 07:00
PROVIDERS: ATTEND Internal Medicine
DX: N18.9 Chronic kidney disease, unspecified (principal)

== ENCOUNTER → 2019-06-28 | Outpatient (REF) ==
[2019-06-28 07:18] LABS: HEMATOCRIT 31.3 % (42.0-52.0); MEAN CORPUSCULAR HEMOGLOBIN 33.4 pg (27.0-33.0); MEAN CORPUSCULAR HGB CONC 31.9 g/dl (32.0-36.5); MEAN CORPUSCULAR VOLUME 104.7 fl (80.0-96.0); RED BLOOD COUNT 2.99 10^6/uL (4.30-6.10); WHITE BLOOD COUNT 5.5 10^3/uL (4.0-10.0)
[2019-06-28 07:36] LABS: PLATELET COUNT, AUTOMATED 58 10^3/uL (150-450)
[2019-06-28 07:39] LABS: CALCIUM LEVEL 8.7 MG/DL (8.8-10.2); CREATININE FOR GFR 5.4 MG/DL (0.70-1.30); GLOMERULAR FILTRATION RATE 13.5 (>42)
== END ==
LOC: SKLAB3 07:00
PROVIDERS: ATTEND Internal Medicine
DX: N18.9 Chronic kidney disease, unspecified (principal)

== ENCOUNTER → 2019-06-30 | Outpatient (REF) ==
[~2019-06-30] MED LIST changes: -ACET1TAB55 PO; -ACET65SU PR; -DULC10SU2 PR; -FLEEENE12 PR
[2019-06-30 15:11] LABS: INR 3.14; PROTHROMBIN TIME 32.2 SECONDS (11.8-14.0)
== END ==
LOC: SKLAB3 11:45
PROVIDERS: ATTEND Internal Medicine
DX: I48.91 Unspecified atrial fibrillation (principal)

== ENCOUNTER → 2019-07-06 | Outpatient (REF) | LOC: SKLAB3 07:20 | PROVIDERS: ATTEND Internal Medicine | DX: E16.2 Hypoglycemia, unspecified (principal) ==

== ENCOUNTER → 2019-07-07 | Outpatient (REF) ==
[~2019-07-07] MED LIST changes: +ACET1TAB55 PO; +ACET65SU PR; +DULC10SU2 PR; +FLEEENE12 PR
[2019-07-07 09:28] LABS: INR 3.76; PROTHROMBIN TIME 37.2 SECONDS (11.8-14.0)
== END ==
LOC: SKLAB3 07:00
PROVIDERS: ATTEND Internal Medicine
DX: I48.91 Unspecified atrial fibrillation (principal)

== ENCOUNTER → 2019-07-09 | Outpatient (REF) ==
[~2019-07-09] MED LIST changes: -ACET1TAB55 PO; -ACET65SU PR; -DULC10SU2 PR; -FLEEENE12 PR
[2019-07-09 16:26] LABS: INR 2.38; PROTHROMBIN TIME 25.8 SECONDS (11.8-14.0)
== END ==
LOC: SKLAB3 15:34
PROVIDERS: ATTEND Internal Medicine
DX: I48.91 Unspecified atrial fibrillation (principal)

== ENCOUNTER 2019-07-12 19:44 | Inpatient (IN) | payer MEDICARE, MEDICAID ==
[~2019-07-12] VITALS: Ht 188 cm; Wt 139.4 kg
[~2019-07-12 19:44] MED LIST changes: -ACET1TAB55 PO; -ACET65SU PR; -DULC10SU2 PR; -FLEEENE12 PR
[2019-07-12] MEDS ORDERED: LACTULOSE 20 GM/30 ML SYRUP UD PO SCH (21:00)
[2019-07-12] MEDS ORDERED: FLEEENE12 PR (21:12)
[2019-07-12] MEDS ORDERED: WARF4TAB51 PO (21:12)
[2019-07-12] MEDS ORDERED: ACET1TAB55 PO (21:12)
[2019-07-12] MEDS ORDERED: DULC10SU2 PR (21:12)
[2019-07-12] MEDS ORDERED: RENV2TAB PO (21:12)
[2019-07-12] MEDS ORDERED: MIDO5TA PO ×2 (21:12)
[2019-07-12] MEDS ORDERED: ACET65SU PR (21:12)
[2019-07-12 21:19] LABS: BASO % 0.7 % (0.0-1.0); EOS % 0.7 % (0.0-3.0); HEMATOCRIT 29.6 % (42.0-52.0); HEMOGLOBIN 9.2 g/dl (13.5-17.5); LYMPH # 1.2 10^3/uL (1.5-5.0); LYMPH % 20.9 % (24.0-44.0); MEAN CORPUSCULAR HEMOGLOBIN 33.8 pg (27.0-33.0); MEAN CORPUSCULAR HGB CONC 31.1 g/dl (32.0-36.5); MEAN CORPUSCULAR VOLUME 108.8 fl (80.0-96.0); MONO # 1.2 10^3/uL (0.0-0.8); MONO % 21.1 % (0.0-5.0); NEUTROPHILS # 3.2 10^3/uL (1.5-8.5); NEUTROPHILS % 56.2 % (36.0-66.0); PLATELET COUNT, AUTOMATED 102 10^3/uL (150-450); RED BLOOD COUNT 2.72 10^6/uL (4.30-6.10); WHITE BLOOD COUNT 5.7 10^3/uL (4.0-10.0)
[2019-07-12 21:31] LABS: PARTIAL THROMBOPLASTIN TIME 50.2 SECONDS (25.0-38.4)
[2019-07-12 21:46] LABS: INR 1.93; PROTHROMBIN TIME 21.8 SECONDS (11.8-14.0)
[2019-07-12 21:47] LABS: VENOUS BASE EXCESS -0.1 (-2.0-2.0); VENOUS HCO3 27.7 MEQ/L (23.0-27.0); VENOUS PARTIAL PRESSURE CO2 62.1 mmHg (38.0-50.0); VENOUS PARTIAL PRESSURE O2 46.6 mmHg (30.0-50.0); VENOUS PH 7.267 UNITS (7.330-7.430); VENOUS TOTAL CO2 29.6 MEQ/L (24.0-28.0)
[2019-07-12 21:55] LABS: BLOOD UREA NITROGEN 32 MG/DL (7-18); CALCIUM LEVEL 8.4 MG/DL (8.8-10.2); CARBON DIOXIDE LEVEL 31 MEQ/L (21-32); CHLORIDE LEVEL 102 MEQ/L (98-107); CREATININE FOR GFR 5.61 MG/DL (0.70-1.30); GLUCOSE, FASTING 104 MG/DL (70-100); POTASSIUM SERUM 4.7 MEQ/L (3.5-5.1); SODIUM LEVEL 138 MEQ/L (136-145); T UPTAKE 34 % (33-40); THYROXINE (T4) 5.9 UG/DL (4.5-12.0)
--- NOTE | 2019-07-12 22:40 | REPVR ---
PROCEDURE INFORMATION: Exam: CT Head Without Contrast Exam date and time: 07/12/19 (9:47pm) Age: 74 years old Clinical indication: Altered mental status / memory loss TECHNIQUE: Imaging protocol: Computed tomography of the head without contrast. Radiation optimization: All CT scans at this facility use at least one of these dose optimization techniques: automated exposure control; mA and/or kV adjustment per patient size (includes targeted exams where dose is matched to clinical indication); or iterative reconstruction. COMPARISON: CT HEAD of 06/07/19 FINDINGS: Brain: No acute hemorrhage. No cerebral edema. Age-related atrophic changes are noted. Periventricular and subcortical areas of low attenuation, compatible with chronic small vessel microischemic changes. Ventricles: Normal. No ventriculomegaly. Bones/joints: Unremarkable. No acute fracture. Sinuses: Visualized sinuses are unremarkable. No air-fluid levels. Mastoid air cells: The mastoid air cells are opacified, bilaterally (unchanged). Soft tissues: Scattered scalp calcifications. IMPRESSION: No acute intracranial pathology is appreciated. Chronic atrophic and microischemic changes. The brain had a similar appearance 1 month ago. Electronically signed by: Joie Hodgson On 07/12/2019 22:40:18 PM
[2019-07-12] MEDS ORDERED: GLUCAGON FOR INJ 1 MG VIAL (J1610) SC PRN (23:30)
[2019-07-12] MEDS ORDERED: DEXTROSE 50% 50 ML SYRINGE IV PRN (23:30)
[2019-07-12] MEDS ORDERED: GLUCOSE 4 GM CHEW TABLET PO PRN (23:30)
--- NOTE | 2019-07-12 23:32 | HPEPDOC ---
[facility] [place] Medical History & Physical Date of Admission Jul 12, 2019 Date of Service: Jul 12, 2019 Primary Care Physician: Jr Burch Collins Attending Physician: SHYANNE CA MD History and Physical TIME OF SERVICE: 11:57 PM CHIEF COMPLAINT: Confusion HISTORY OF PRESENT ILLNESS: The patient is a poor historian, the majority of history was obtained from ER staff. This is a 74-year-old male, who is at [facility] for rehabilitation, was sent for evaluation after having an episode where he was unresponsive and foaming at the mouth for about 3 seconds, thereafter, his speech was more slurred than usual and his verbal responses more slow than usual. Currently the patient denies having any acute complaints. Was able to tell me that he is on dialysis on Thursday, Thursday, Thursday, and uses a CPAP machine at home, he is at [facility] for rehabilitation, and that had an episode of confusion earlier on but was very vague in terms of describing the events surrounding the episode. He admits to having a cough and being more short of breath with exertion. REVIEW OF SYSTEMS: 10 point ROS ,negative except as listed in HPI PMH/PSH Atrial fibrillation on warfarin Status post pacemaker placement for tachybradycardia syndrome Chronic hypertension ESRD MWF complicated by anemia / Left AV graft fistula PVD Obesity ELISSA on CPAP COPD IDDM with neuropathy Liver cirrhosis Chronic small vessel ischemic disease Right eye blindness Status post ventral hernia repair. Status post resection of the medicine polyps Status post transmetatarsal amputation of the left foot after sustaining third- degree delgado on his feet resulting in severe wounds SOCIAL HISTORY: Former smoker Resides at [facility] temporarily. Originally from [place] FAMILY HISTORY: CAD ALLERGIES: Please see below. HOME MEDICATIONS: Please see below. PHYSICAL EXAMINATION: VITAL SIGNS: Please see below. GEN: well-nourished / well developed INTEGUMENT: not flushed/ not jaundice / no rashes / has keloid at scars at left upper chest & catheter at right upper chest HEENT: NC in place / lips acyanotic /mucus membranes dry CVS: RRR/NMRG/+ lower extremity edema LUNGS: is able to speak short sentences / breath sounds are diminished ABDOMEN: Contour (obese) / firm & not tender with palpation MSK/EXTREMITIES: range of motion intact in all 4 extremities / s/p left transmetatarsal amputation NEURO: speech is not dysarthric PSYCH: alert and oriented to person place and time is able to name the president/ able to understand and follow all commands but intermittently falls asleep during history & exam LABORATORY DATA: See below. IMAGING: CT head: "IMPRESSION: No acute intracranial pathology is appreciated. Chronic atrophic and microischemic changes." Chest xray: Compared to the previous xray, he appears to have congestive changes along with the a retrocardiac opacity, and pacemaker; the final read is pending MICROBIOLOGY: Please see below. ASSESSMENT: Mr. Lobo is a 74-year-old male with a history of A. fib, pacemaker for tachybrady, chronic HTN, ESRD, PVD, obesity, ELISSA, COPD, IDDM with neuropathy, liver cirrhosis, small vessel ischemic disease, right eye blindness, who is admitted for evaluation of altered mental status and tx of possible L sided PNA. PLAN: 1 Encephalopathy Differential includes hypercapnea bc his CO2 is in the 60s vs liver dz vs thyroid disorder vs B12 def vs Thiamine deficiency vs possible PNA vs seizure vs CVA CT of the head showed old microvascular ischemic changes. Plan: admit to PCU / frequent neurochecks / f/u B12, B1, LFTs, ammonia, Mag, Phosphorus, prolactin to r/o seizure 2. Dyspnea possibly 2/2 Left Sided PNA Plan: ceftriaxone and azithromycin / follow up final chest x-ray report & blood cx 3 Hypercapnia / ELISSA Reviewed sleep study report from 2011 for settings & VBG Plan: CPAP / f/u repeat VBG in AM 4. Bicytopenia Multifactorial macrocytic Anemia & Thrombocytopenia 2/2 liver dz Plan: f/u CBC & monitor for bleeding 5. Atrial fibrillation - Plan: c/w current dose of Warfarin and trend INR 6. Hypotension -Plan: hold BP meds / c/w midodrine 7. ESRD MWF - Plan: Nephro consult / c/w calcium carbonate, sevelamer 8. PVD / Chronic small vessel ischemic disease - Plan: ASA 9. COPD - Plan: c/w incruse ellipta & albuterol 10. IDDM with neuropathy - Plan: diabetic diet / f/u accuchecks & A1C / hypoglycemia protocol / sliding scale insulin 11. Obesity. He has coexisting sleep apnea and diabetes which complicates his care DVT PROPHYLAXIS: n/a bc he is on warfarin for a fib DISPOSITION: back to after more than 2 midnight's stay / PFS consult has been palced LATE ENTRY #Encephalopathy may be due to hyperammonemia Likely 2/2 liver dz Liver US Feb 2019 " IMPRESSION: 1. Findings consistent with hepatic cirrhosis with bidirectional portal flow. There is trace perihepatic fluid. 2. Echogenic right kidney consistent with medical renal disease. 3. Otherwise negative right upper quadrant sonogram. Old Hep B&C panel results unremarkable Plan: lactulose TID Vital Signs Vital Signs Date Time Temp Pulse Resp B/P (MAP) Pulse Ox O2 Delivery O2 Flow Rate FiO2 07/12/19 23:15 66 20 100/55 (70) 99 Nasal Cannula 3.0 07/12/19 19:46 96.6 Laboratory Data Labs 24H Laboratory Tests 2 07/12/19 20:26: Bedside Glucose (Misc Panel) 106 07/12/19 21:03: Prothrombin Time 21.8H, Prothromb Time International Ratio 1.93, Activated Partial Thromboplast Time 50.2H 07/12/19 21:04: Immature Granulocyte % (Auto) 0.4, Neutrophils (%) (Auto) 56.2, Lymphocytes (%) (Auto) 20.9L, Monocytes (%) (Auto) 21.1H, Eosinophils (%) (Auto) 0.7, Basophils (%) (Auto) 0.7, Neutrophils # (Auto) 3.2, Lymphocytes # (Auto) 1.2L, Monocytes # (Auto) 1.2H, Eosinophils # (Auto) 0.0, Basophils # (Auto) 0.0, Nucleated Red Blood Cells % (auto) 0.7H, Anion Gap 5L, Glomerular Filtration Rate 13.0L, Calcium Level 8.4L, Thyroid Stimulating Hormone (TSH) 1.870, Free Thyroxine Index 2.0, Thyroxine (T4) 5.9, Triiodothyronine (T3) Uptake 34 07/12/19 21:42: Blood Gas Bicarbonate Standard 24.0, Venous Blood pH 7.267L, Venous Blood Partial Pressure CO2 62.1H, Venous Blood Partial Pressure O2 46.6, Venous Blood Total Carbon Dioxide 29.6H, Venous Blood HCO3 27.7H, Venous Blood Oxygen Saturation 73.0, Venous Blood Base Excess -0.1, Lactic Acid Level 1.5 CBC/BMP Laboratory Tests 07/12/19 21:04 Home Medications Scheduled Aspirin (Aspirin EC) 81 Mg Tab, 81 MG PO DAILY @ 1300 Calcium Carbonate (Calcium Carbonate) 500 Mg Tablet, 500 MG PO DAILY @ 1300 Cholecalciferol (Vitamin D3) (Vitamin D3) 1,000 Unit Tablet, 1,000 UNITS PO DAILY Cyanocobalamin (Vitamin B-12) (Vitamin B-12) 500 Mcg Tab, 1,000 MCG PO DAILY Gabapentin (Gabapentin) 100 Mg Cap, 100 MG PO DAILY AT NOON Lidocaine/Prilocaine (Lidocaine-Prilocaine Cream) 2.5%/2.5% Cream..g., 1 APLCT TOP ASDIRECTED APPLY TO DIALYSIS ACCESS SITE ONE HOUR PRIOR TO DIALYSIS MON, THU, THU Metoprolol Tartrate (Metoprolol Tartrate) 25 Mg Tab, 25 MG PO BID @ 1300, 2100 Midodrine HCl (Midodrine HCl) 5 Mg Tablet, 5 MG PO 3XW MON, THU, THU. @ 0500, 1300, 2100 Midodrine HCl (Midodrine HCl) 5 Mg Tablet, 5 MG PO 4XWK THU, , , SAT @ 0800, 1300, 2000 Sevelamer Carbonate (Sevelamer Carbonate) 800 Mg Tab, 1,600 MG PO 3XW MON, THU, FRI. @ 0600, 1200, 1700 Sevelamer Carbonate (Renvela) 800 Mg Tablet, 1,600 MG PO 4XWK THU, , , SAT @ 0800, 1200, 1700 Umeclidinium [place] (Incruse Ellipta) 62.5 Mcg Blst.w.dev, 1 PUFF INH DAILY @ 1300 Warfarin Sodium (Warfarin Sodium) 4 Mg Tablet, 4 MG PO 4XWK THURSDAY, THURSDAY, THURSDAY AND THURSDAY @ 1700 Warfarin Sodium (Warfarin Sodium) 2 Mg Tablet, 2 MG PO 3XW THURSDAY, THURSDAY AND THURSDAY @ 1700 Scheduled PRN Acetaminophen (Acetaminophen) 650 Mg Supp.rect, 650 MG TN Q4H PRN for PAIN Acetaminophen (Acetaminophen) 325 Mg Tablet, 650 MG PO Q4H PRN for PAIN Albuterol Sulfate (Ventolin Hfa) 108 Mcg/Act Aer, 2 PUFFS INH QID PRN for SHORTNESS OF BREATH Bisacodyl (Dulcolax) 10 Mg Supp.rect, 10 MG TN DAILY PRN for CONSTIPATION Hydroxyzine HCl (Hydroxyzine HCl) 25 Mg Tablet, 25 MG PO BID PRN for ITCHING Nitroglycerin (Nitrostat) 0.4 Mg Subl, 0.4 MG SL NITRO PRN for ANGINA Sodium Phosphate,[place]-Dibasic (Fleet Enema) 133 Ml Enema, 1 MARTINEZ TN DAILY PRN for CONSTIPATION Allergies Coded Allergies: No Known Allergies (Verified , 03/22/19) A-FIB/CHADSVASC A-FIB History Current/History of A-Fib/PAF?: Yes Current PO Anticoag Therapy: Yes Treatment Treatment ordered: Warfarin SHYANNE CA MD Jul 12, 2019 23:32
[2019-07-12 23:50] LABS: ALBUMIN 2.8 GM/DL (3.2-5.2); ALT/SGPT 18 U/L (12-78); BILIRUBIN,DIRECT 0.7 MG/DL (0.0-0.2); BILIRUBIN,TOTAL 1.4 MG/DL (0.2-1.0); MAGNESIUM LEVEL 2.4 MG/DL (1.8-2.4); PHOSPHORUS LEVEL 4.9 MG/DL (2.5-4.9); TOTAL PROTEIN 6.6 GM/DL (6.4-8.2)
[2019-07-12] MEDS: HumaLOG INSULIN (NovoLOG) PER UNIT SC SCH (23:54)
[2019-07-13] VITALS (16 sets, daily range): BP systolic 93–116; BP diastolic 51–59; O2SAT 92–100
[2019-07-13] MEDS ORDERED: FLEET ENEMA PR PRN (01:30)
[2019-07-13] MEDS ORDERED: ACETAMINOPHEN TAB 650MG DOSE (2X325MG) PO PRN (01:30)
[2019-07-13] MEDS ORDERED: ALBUTEROL 90 MCG/ACT 8GM HFA INHALER INH PRN (01:30)
[2019-07-13] MEDS ORDERED: NITROGLYCERIN 0.4 MG SUBL TABLET SL PRN (01:30)
[2019-07-13] MEDS ORDERED: BISACODYL 10 MG SUPP PR PRN (01:30)
[2019-07-13] MEDS: cefTRIAXone SOD 1 GM in D5W MINI-BAG PLUS 50 ML IV SCH (02:22)
[2019-07-13] MEDS ORDERED: ONDANSETRON 4MG/2ML VIAL (J2405) IV PRN (02:30)
[2019-07-13 03:03] LABS: VENOUS BASE EXCESS -0.3 (-2.0-2.0); VENOUS O2 SATURATION 97.8 % (60.0-80.0); VENOUS PARTIAL PRESSURE CO2 57.4 mmHg (38.0-50.0); VENOUS PARTIAL PRESSURE O2 109.3 mmHg (30.0-50.0); VENOUS STANDARD HCO3 24.3 MEQ/L; VENOUS TOTAL CO2 28.7 MEQ/L (24.0-28.0)
[2019-07-13] MEDS: AZITHROMYCIN INJ 500 MG, VIAL MATE ADAPTER 1 EACH in D5W 250 ML IV SCH (03:12)
[2019-07-13 05:16] LABS: HEMATOCRIT 30.9 % (42.0-52.0); HEMOGLOBIN 9.6 g/dl (13.5-17.5); MEAN CORPUSCULAR HEMOGLOBIN 34.2 pg (27.0-33.0); MEAN CORPUSCULAR HGB CONC 31.1 g/dl (32.0-36.5); RED BLOOD COUNT 2.81 10^6/uL (4.30-6.10); WHITE BLOOD COUNT 5.5 10^3/uL (4.0-10.0)
[2019-07-13 05:26] LABS: PLATELET COUNT, AUTOMATED 90 10^3/uL (150-450)
[2019-07-13 05:29] LABS: CREATININE FOR GFR 5.76 MG/DL (0.70-1.30); GLOMERULAR FILTRATION RATE 12.6 (>42); POTASSIUM SERUM 5.2 MEQ/L (3.5-5.1)
[2019-07-13] MEDS: HumaLOG INSULIN (NovoLOG) PER UNIT SC SCH ×4 (07:30→19:59)
--- NOTE | 2019-07-13 07:46 | REP ---
Portable chest, 09:19 p.m., single AP view with the patient upright: Comparison is 2018. There is marked cardiomegaly. This is unchanged. There is interstitial coarsening compatible with interstitial infiltrates. The There is a small volume of fluid in the minor fissure. There is a small focal zone of discoid atelectasis in the right lung. No pleural effusion. There is a pacemaker, unchanged. Impression: Chronic cardiomegaly. Interstitial infiltrates. Small volume of fluid in the minor fissure. Electronically Signed by Sam Luis MD 07/13/2019 07:38 A
--- NOTE | 2019-07-13 08:13 | ECGEPIP ---
[facility] - ED Test Date: 2019-07-12 Pat Name: KATHIA NAVARRETE Department: Room: [place] [id number] Gender: Male Tube Bender: LAURIE : 1945 Requested By: RANDALL HOLLIS Order Number: [id number] Reading MD: Juarez Carranza Measurements Intervals [place] Rate: 65 P: [place]: 0 QRS: 29 QRSD: 106 T: 0 QT: 443 QTc: 461 Interpretive Statements ATRIAL FIBRILLATION LOW QRS VOLTAGE IN EXTREMITY LEADS NSTTW ABNORMALITIES SIMILAR TO 06/04/19 Electronically Signed on 07-13-2019 8:13:12 EST by Juarez Carranza
[2019-07-13] MEDS ORDERED: ENTER DRUG NAME HERE (PATIENT'S OWN MED) INH SCH (09:00)
[2019-07-13] MEDS ORDERED: LACTULOSE 20 GM/30 ML SYRUP UD PO SCH (09:00)
[2019-07-13] MEDS ORDERED: GABAPENTIN 100 MG CAP PO SCH (09:00)
[2019-07-13] MEDS: MIDODRINE 5 MG TAB PO SCH ×3 (09:24→18:41)
[2019-07-13] MEDS: CYANOCOBALAMIN 500 MCG TAB PO SCH (09:24)
[2019-07-13] MEDS: VITAMIN D 1,000 INTERNATIONAL UNITS TABLET PO SCH (09:24)
[2019-07-13] MEDS: (RENVELA) SEVELAMER **CARBONate** 800 MG TAB PO SCH ×3 (09:24→18:39)
[2019-07-13 10:55] LABS: VITAMIN B12 LEVEL > 2000 PG/ML (247-911)
--- NOTE | 2019-07-13 10:59 | IPNPDOC ---
Text Note Date of Service The patient was seen on 07/13/19. 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 He then was awake sat up and ate his breakfast and took all his medications by mouth. No bowel movements. Denied any specific complaints. VITAL SIGNS: Please see below. GEN: well-nourished / well developed INTEGUMENT: not flushed/ not jaundice / no rashes / has keloid at scars at left upper chest & catheter at right upper chest HEENT: NC in place / lips acyanotic /mucus membranes dry CVS: RRR/NMRG/+ lower extremity edema LUNGS: is able to speak short sentences / breath sounds are diminished ABDOMEN: Contour (obese) / firm & not tender with palpation MSK/EXTREMITIES: range of motion intact in all 4 extremities / s/p left transmetatarsal amputation NEURO: speech is not dysarthric PSYCH: alert and oriented to person place and time is able to name the president/ able to understand and follow all commands but intermittently falls asleep during history & exam Labs and radiology: reviewed. Assessment and plan: Mr. Lobo is a 74-year-old male with a history of A. fib, pacemaker for tachybrady, chronic HTN, ESRD, PVD, obesity, ELISSA, COPD, IDDM with neuropathy, liver cirrhosis, small vessel ischemic disease, right eye blindness, who is admitted for evaluation of altered mental status and tx of possible L sided PNA. Acute metabolic Encephalopathy due to hepatic encephalopathy vs hypercarbia improving will get an ABG. continue lactulose Cirrhosis of Liver etiology probably obesity and chronic heart failure as seen in Liver US of 02/2019 with high ammonia levels and chronic thrombocytopenia. Dyspnea possibly 2/2 Left Sided PNA ceftriaxone and azithromycin / follow up final chest x-ray report & blood cx Obesity with ELISSA moderate pulmonary hypertension and chronic right heart failure. continue CPAP ESRD continue maintainence HD, sevelemer, calcium and vit D Chronic Atrial fibrillation rate controlled with h/o tachybrady syndrome has pacemaker in place continue coumadin. hold metoprol due to hypotension. 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 as he has shuttering and a strong Southern accent. Anemia of chronic disease due to ESRD. Hg is at baseline Will continue to monitor counts VS,Fishbone, I+O VS, Fishbone, I+O Laboratory Tests 07/12/19 21:04 07/13/19 05:01 Vital Signs Date Time Temp Pulse Resp B/P (MAP) Pulse Ox O2 Delivery O2 Flow Rate FiO2 07/13/19 08:00 96.9 72 20 116/51 (72) 96 Room Air 07/13/19 01:59 1.0 I&O- Last 24 Hours up to 6 AM 07/13/19 06:00 Intake Total 0 ml Output Total 0 ml Balance 0 ml QUAN GARZA MD Jul 13, 2019 10:59
[2019-07-13] MEDS: LACTULOSE 20 GM/30 ML SYRUP UD PO SCH ×4 (11:49→23:45)
[2019-07-13] MEDS: GABAPENTIN 100 MG CAP PO SCH (11:49)
[2019-07-13] MEDS: ASPIRIN 81 MG ENTERIC TAB PO SCH (12:03)
[2019-07-13] MEDS: OYSTER SHELL CALCIUM 500 MG TAB PO SCH (12:03)
[2019-07-13] MEDS ORDERED: SLF 3 ML SYR IV PRN (12:15)
[2019-07-13] MEDS ORDERED: LIDOCAINE 1% SDV 5 ML VIAL SQ ONE (13:00)
[2019-07-13] MEDS ORDERED: HEPARIN 1,000 UNITS/ML 10ML VIAL (FOR RADIOLOGY& DIALYSIS ONLY)(J1644-10) IV ONE (13:00)
[2019-07-13] MEDS: SLF 3 ML SYR IV SCH ×2 (14:00→20:00)
--- NOTE | 2019-07-13 14:41 | CR.PDOC ---
General Date of Consultation: Jul 13, [address] Mattson. HPI: 74 year old M admitted to the hospital related to AMS. Vascular surgery was consulted regarding the patient's AV fistula right upper extremity, with concern that the patient's fistula is clotted. Medical History ESRD on HD, ELISSA on CPAP, COPD, HTN, A. fib (on Coumadin), Pacemaker, IDDM2 Surgical History Permanent pacemaker placement Abdominal hernia repair Left partial foot amputation AV fistula placement RUE SOCHX: Nonsmoker Currently residing at [facility] The patient's fistula was examined by Dr. Mattson. The patient's fistula is noted to have an excellent thrill. Ultrasound was used as per Dr. Mattson to examine the patient's fistula indicating widely patent fistula, the patient's fistula was marked with ultrasound for access at dialysis. The patient's right upper extremity is noted to be edematous which AV making it more difficult to access the patient's fistula however this should improve with good dialysis. The patient's fistula is examined by Dr. Mattson with the assistance of ultrasound indicating the patient's fistula is patent, is a palpable thrill on exam and the patient's fistula is not clotted. This was related to nephrology, Dr Alvarez, as per Dr. Mattson. The patient's fistula has been marked with a skin marking pen to assist dialysis in accessing the patient's fistula. The patient's fistula can be used for hemodialysis. There is no need for PermCath this time. Continue to follow. Vital Signs/I&O Vital Signs Date Time Temp Pulse Resp B/P (MAP) Pulse Ox O2 Delivery O2 Flow Rate FiO2 07/13/19 12:00 96.9 72 18 102/59 (73) 93 Room Air 07/13/19 01:59 1.0 I&O- Last 24 Hours up to 6 AM 07/13/19 05:59 Intake Total 0 ml Output Total 0 ml Balance 0 ml Laboratory Data Labs 24H Laboratory Tests 2 07/12/19 20:26: Bedside Glucose (Misc Panel) 106 07/12/19 21:03: Prothrombin Time 21.8H, Prothromb Time International Ratio 1.93, Activated Partial Thromboplast Time 50.2H 07/12/19 21:04: Immature Granulocyte % (Auto) 0.4, Neutrophils (%) (Auto) 56.2, Lymphocytes (%) (Auto) 20.9L, Monocytes (%) (Auto) 21.1H, Eosinophils (%) (Auto) 0.7, Basophils (%) (Auto) 0.7, Neutrophils # (Auto) 3.2, Lymphocytes # (Auto) 1.2L, Monocytes # (Auto) 1.2H, Eosinophils # (Auto) 0.0, Basophils # (Auto) 0.0, Nucleated Red Blood Cells % (auto) 0.7H, Anion Gap 5L, Glomerular Filtration Rate 13.0L, C alcium Level 8.4L, Phosphorus Level 4.9, Magnesium Level 2.4, Total Bilirubin 1.4H, Direct Bilirubin 0.7H, Aspartate Amino Transf (AST/SGOT) 24, Alanine Aminotransferase (ALT/SGPT) 18, Alkaline Phosphatase 145H, Total Protein 6.6, Albumin 2.8L, Albumin/Globulin Ratio 0.74L, Vitamin B12 Level > 2000H, Thyroid Stimulating Hormone (TSH) 1.870, Free Thyroxine Index 2.0, Thyroxine (T4) 5.9, Triiodothyronine (T3) Uptake 34, Prolactin 52.0H 07/12/19 21:42: Blood Gas Bicarbonate Standard 24.0, Venous Blood pH 7.267L, Venous Blood Partial Pressure CO2 62.1H, Venous Blood Partial Pressure O2 46.6, Venous Blood Total Carbon Dioxide 29.6H, Venous Blood HCO3 27.7H, Venous Blood Oxygen Saturation 73.0, Venous Blood Base Excess -0.1, Lactic Acid Level 1.5 07/12/19 23:41: Ammonia 95H 07/12/19 23:51: Bedside Glucose (Misc Panel) 101 07/13/19 02:58: Blood Gas Bicarbonate Standard 24.3, Venous Blood pH 7.290L, Venous Blood Partial Pressure CO2 57.4H, Venous Blood Partial Pressure O2 109.3H, Venous Blood Total Carbon Dioxide 28.7H, Venous Blood HCO3 27.0, Venous Blood Oxygen Saturation 97.8H, Venous Blood Base Excess -0.3 07/13/19 05:01: Nucleated Red Blood Cells % (auto) 0.7H, Immature Platelet Fraction 8.6, Anion Gap 6L, Glomerular Filtration Rate 12.6L, Calcium Level 8.0L 07/13/19 11:23: Bedside Glucose (Misc Panel) 89 CBC/BMP Laboratory Tests 07/12/19 21:04 07/13/19 05:01 Microbiology Microbiology 07/13/19 Blood Culture, Received Pending Allergies Coded Allergies: No Known Allergies (Verified , 03/22/19) Home Medications Scheduled Aspirin (Aspirin EC) 81 Mg Tab, 81 MG PO DAILY, (Reported) @ 1300 Calcium Carbonate (Calcium Carbonate) 500 Mg Tablet, 500 MG PO DAILY, (Reported) @ 1300 Cholecalciferol (Vitamin D3) (Vitamin D3) 1,000 Unit Tablet, 1,000 UNITS PO DAILY, (Reported) Cyanocobalamin (Vitamin B-12) (Vitamin B-12) 500 Mcg Tab, 1,000 MCG PO DAILY, (Reported) Gabapentin (Gabapentin) 100 Mg Cap, 100 MG PO DAILY, (Reported) AT NOON Lidocaine/Prilocaine (Lidocaine-Prilocaine Cream) 2.5%/2.5% Cream..g., 1 APLCT TOP ASDIRECTED, (Reported) APPLY TO DIALYSIS ACCESS SITE ONE HOUR PRIOR TO DIALYSIS THU, THU, THU Metoprolol Tartrate (Metoprolol Tartrate) 25 Mg Tab, 25 MG PO BID, (Reported) @ 1300, 2100 Midodrine HCl (Midodrine HCl) 5 Mg Tablet, 5 MG PO 3XW, (Reported) THU, THU, THU. @ 0500, 1300, 2100 Midodrine HCl (Midodrine HCl) 5 Mg Tablet, 5 MG PO 4XWK, (Reported) SUN, , URS, SAT @ 0800, 1300, 2000 Sevelamer Carbonate (Sevelamer Carbonate) 800 Mg Tab, 1,600 MG PO 3XW, (Reported) THU, THU, THU. @ 0600, 1200, 1700 Sevelamer Carbonate (Renvela) 800 Mg Tablet, 1,600 MG PO 4XWK, (Reported) SUN, , THURS, SAT @ 0800, 1200, 1700 Umeclidinium [place] (Incruse Ellipta) 62.5 Mcg Blst.w.dev, 1 PUFF INH DAILY, (Reported) @ 1300 Warfarin Sodium (Warfarin Sodium) 4 Mg Tablet, 4 MG PO 4XWK, (Reported) THURSDAY, THURSDAY, THURSDAY AND THURSDAY @ 1700 Warfarin Sodium (Warfarin Sodium) 2 Mg Tablet, 2 MG PO 3XW, (Reported) THURSDAY, THURSDAY AND THURSDAY @ 1700 Scheduled PRN Acetaminophen (Acetaminophen) 650 Mg Supp.rect, 650 MG AK Q4H PRN for PAIN, (Reported) Acetaminophen (Acetaminophen) 325 Mg Tablet, 650 MG PO Q4H PRN for PAIN, (Reported) Albuterol Sulfate (Ventolin Hfa) 108 Mcg/Act Aer, 2 PUFFS INH QID PRN for SHORTNESS OF BREATH, (Reported) Bisacodyl (Dulcolax) 10 Mg Supp.rect, 10 MG AK DAILY PRN for CONSTIPATION, (Reported) Hydroxyzine HCl (Hydroxyzine HCl) 25 Mg Tablet, 25 MG PO BID PRN for ITCHING, (Reported) Nitroglycerin (Nitrostat) 0.4 Mg Subl, 0.4 MG SL NITRO PRN for ANGINA, (Reported) Sodium Phosphate,[place]-Dibasic (Fleet Enema) 133 Ml Enema, 1 MARTINEZ AK DAILY PRN for CONSTIPATION, (Reported) Betty Hernandez Jul 13, 2019 14:30
--- NOTE | 2019-07-13 17:51 | CR ---
DATE OF CONSULTATION: 07/13/2019 REASON FOR CONSULTATION: To assist in the management of end-stage renal disease. HISTORY OF PRESENT ILLNESS: Mr. Lobo is a 74-year-old gentleman with multiple chronic medical problems including history of diabetes, atrial fibrillation, congestive heart failure, end-stage renal disease requiring maintenance hemodialysis, chronic obstructive pulmonary disease (COPD) and obstructive sleep apnea. He was admitted due to altered mentation and is due for dialysis today. A nephrology consultation was requested and the patient is seen. This morning he is very sleepy and difficult to arouse. PAST MEDICAL AND SURGICAL HISTORY: Significant for: 1. Atrial fibrillation on chronic Coumadin therapy. 2. History of permanent pacemaker placement. 3. History of end-stage renal disease requiring hemodialysis. 4. History of peripheral vascular disease. 5. History of obesity. 6. Chronic obstructive pulmonary disease (COPD). 7. Obstructive sleep apnea. 8. History of insulin-requiring diabetes. 9. History of cirrhosis of liver. 10. History of blindness in right eye due to glaucoma. 11. History of ventral hernia repair. 12. History of transmetatarsal amputation of left foot. PERSONAL AND SOCIAL HISTORY: The patient is currently in [facility] for rehabilitation. He is and does not smoke or drink. FAMILY HISTORY: Negative for end-stage renal disease. REVIEW OF SYSTEMS: Patient is obtunded at present and not able to find any information. I was unable to wake him up. He was admitted with altered mentation. His last dialysis was done on Thursday and he is due for dialysis today. PHYSICAL EXAMINATION: This is a elderly -Indian male who is morbidly obese. He is lying in the bed and currently unresponsive. Temperature 96.9 degrees Fahrenheit, heart rate 72 per minute and respiratory rate 20 per minute. Blood pressure 116/50 mmHg and oxygen saturation 96% on room air. His head is atraumatic. Neck supple and jugular venous distention (JVD) difficult to be assessed. Heart sounds are distant and lungs with diminished breath sounds. Abdomen: Obese and nontender. Extremities: Without any cyanosis or clubbing. He has a arteriovenous (AV) fistula in his left arm and I removed the dressings from last dialysis. I could not hear a thrill and has a weak bruit in his AV fistula in the right upper extremity. Neurologically, he is obtunded at present and I could not wake him up. LABORATORY DATA: WBC count is 5.5, hemoglobin 9.6 and hematocrit 30.9. Platelets 90,000. Sodium 136, potassium 5.2, CO2 23, BUN 34 and creatinine 5.76. Last evening his ammonia level was 95 and vitamin B12 greater than 2000. Thyroid function tests were within normal range. PROBLEMS: 1. End-stage renal disease. The patient is regularly dialyzed on Thursday, Thursday and Thursday schedule and he will be dialyzed later this afternoon. He has not missed any dialysis and I do not feel that there is any evidence of for uremia. 2. Altered mentation, probably multifactorial, related to cirrhosis with elevated ammonia level and possible CO2 retention. He did have a blood gas sas sql developer which showed a pCO2 of 57.4 with pH of 7.29. He does use continuous positive airway pressure (C-PAP) and probably should be placed on it. 3. History of obstructive sleep apnea and COPD. The patient has chronic use of C-PAP and should be maintained on his home settings. 4. Hyperkalemia. Mild hyperkalemia is noted, which is related to end-stage renal disease. This will be corrected with dialysis and no other urgent intervention is indicated. 5. Anemia. His anemia is moderate and related to end-stage renal disease. No need for transfusion. Will consider giving him Aranesp next week. Thank you for involving me in the care of Mr. Lobo. I will follow him along with you.
[2019-07-13] MEDS: WARFARIN SOD 4 MG TAB PO SCH (18:38)
[2019-07-14] MEDS: cefTRIAXone SOD 1 GM in D5W MINI-BAG PLUS 50 ML IV SCH (00:48)
[2019-07-14] MEDS: AZITHROMYCIN INJ 500 MG, VIAL MATE ADAPTER 1 EACH in D5W 250 ML IV SCH (01:54)
[2019-07-14] MEDS: LACTULOSE 20 GM/30 ML SYRUP UD PO SCH ×6 (02:25→22:32)
[2019-07-14] MEDS: SLF 3 ML SYR IV SCH ×3 (02:25→19:36)
[2019-07-14 04:00] VITALS: BP 98/58
[2019-07-14 06:17] LABS: BASO % 0.6 % (0.0-1.0); EOS % 0.6 % (0.0-3.0); HEMATOCRIT 29.2 % (42.0-52.0); HEMOGLOBIN 9.3 g/dl (13.5-17.5); INR 2.15; LYMPH % 15.6 % (24.0-44.0); MEAN CORPUSCULAR HEMOGLOBIN 34.3 pg (27.0-33.0); MEAN CORPUSCULAR HGB CONC 31.8 g/dl (32.0-36.5); MEAN CORPUSCULAR VOLUME 107.7 fl (80.0-96.0); MONO # 1.2 10^3/uL (0.0-0.8); MONO % 18.6 % (0.0-5.0); NEUTROPHILS # 4.3 10^3/uL (1.5-8.5); NEUTROPHILS % 64.1 % (36.0-66.0); PROTHROMBIN TIME 23.8 SECONDS (11.8-14.0); RED BLOOD COUNT 2.71 10^6/uL (4.30-6.10); WHITE BLOOD COUNT 6.7 10^3/uL (4.0-10.0)
[2019-07-14 06:18] LABS: PLATELET COUNT, AUTOMATED 99 10^3/uL (150-450)
[2019-07-14 06:38] LABS: CALCIUM LEVEL 8.1 MG/DL (8.8-10.2); CREATININE FOR GFR 4.75 MG/DL (0.70-1.30); GLOMERULAR FILTRATION RATE 15.7 (>42); POTASSIUM SERUM 4.3 MEQ/L (3.5-5.1)
[2019-07-14] MEDS: HumaLOG INSULIN (NovoLOG) PER UNIT SC SCH ×2 (07:30→12:00)
[2019-07-14 08:00] VITALS: BP 92/55
[2019-07-14] MEDS: TIOTROPIUM INHALER/CAPSULE (SPIRIVA) INH SCH (08:00)
[2019-07-14] MEDS: CYANOCOBALAMIN 500 MCG TAB PO SCH (09:31)
[2019-07-14] MEDS: (RENVELA) SEVELAMER **CARBONate** 800 MG TAB PO SCH ×3 (09:31→17:07)
[2019-07-14] MEDS: MIDODRINE 5 MG TAB PO SCH ×3 (09:31→17:07)
[2019-07-14] MEDS: VITAMIN D 1,000 INTERNATIONAL UNITS TABLET PO SCH (09:31)
[2019-07-14 12:00] VITALS: BP 95/52
[2019-07-14] MEDS: GABAPENTIN 100 MG CAP PO SCH (12:01)
[2019-07-14] MEDS: OYSTER SHELL CALCIUM 500 MG TAB PO SCH (12:01)
[2019-07-14] MEDS: ASPIRIN 81 MG ENTERIC TAB PO SCH (12:01)
--- NOTE | 2019-07-14 12:08 | IPNPDOC ---
Text Note Date of Service The patient was seen on 07/14/19. NOTE Subjective: Patient is awake and alert this am. Almost at baseline mental sta tus. Sitting up and eating breakfast. Had about 12 bowel movements overnight. Will hold lactulose today. No fever or chills. VITAL SIGNS: Please see below. GEN: Obese. awake , alert and comfortable INTEGUMENT: not flushed/ not jaundice / no rashes / has keloid at scars at left upper chest & catheter at right upper chest HEENT: normocephalic, atraumatic, moist mucous membranes. CVS: RRR/NMRG/+ lower extremity edema LUNGS: breath sounds are diminished, bibasal crackles. ABDOMEN: Contour (obese) / firm & not tender with palpation MSK/EXTREMITIES: range of motion intact in all 4 extremities / s/p left transmetatarsal amputation. rue AVF. NEURO: speech is not dysarthric PSYCH: alert and oriented to person place and time is able to name the president/ able to understand and follow all commands but intermittently falls asleep during history & exam Labs and radiology: reviewed. Assessment and plan: Mr. Lobo is a 74-year-old male with a history of A. fib, pacemaker for tachybrady, chronic HTN, ESRD, PVD, obesity, ELISSA, COPD, IDDM with neuropathy, liver cirrhosis, small vessel ischemic disease, right eye blindness, who is admitted for evaluation of altered mental status and tx of possible L sided PNA. Acute metabolic Encephalopathy due to hepatic encephalopathy No significant hypercarbia in VVG to cause encephalopathy ammonia improving prolactin elevated ? cause. No seizure noted and no history of seizure will start on rifaximin on discharge currently on ceftriaxone. will restart lactulose tomorrow to keep 2 to 3 good bowel movements daily Cirrhosis of Liver etiology probably obesity and chronic heart failure as seen in Liver US of 02/2019 with high ammonia levels and chronic thrombocytopenia. Dyspnea possibly probably due to fluid overload I do not think he has pneumonia . will continue ceftriaxone for hepatic encephalopathy. No fever or elevation of WBC Blood cultures negative CXR few infiltrates and chronic changes. The infiltrates i think are atelectat asis vs fluid. Obesity with ELISSA moderate pulmonary hypertension and chronic right heart failure. continue CPAP ESRD continue maintenance HD, sevelemer, calcium and vit D Chronic Atrial fibrillation rate controlled with h/o tachybrady syndrome has pacemaker in place continue coumadin. hold metoprol due to hypotension. PVD / Chronic small vessel ischemic disease asa Chronic Hypotension continue midodrine COPD with mod pul hypertension with chronic right heart failure c/w inhalor and albuterol IDDM with neuropathy diabetic diet / f/u accuchecks & A1C / hypoglycemia protocol / sliding scale insulin Right eye blindness Status post transmetatarsal amputation of the left foot after sustaining third- degree delgado on his feet resulting in severe wounds Difficult to comprehend / garbled speech At baseline patient does express some garbled speech which is at baseline. as he has shuttering and a strong Southern accent. Anemia of chronic disease due to ESRD. Hg is at baseline Will continue to monitor counts VS,Fishbone, I+O VS, Fishbone, I+O Laboratory Tests 07/14/19 05:52 Vital Signs Date Time Temp Pulse Resp B/P (MAP) Pulse Ox O2 Delivery O2 Flow Rate FiO2 07/14/19 08:00 97.2 65 17 92/55 (67) 94 Nasal Cannula 1.0 l I&O- Last 24 Hours up to 6 AM 07/14/19 06:00 Intake Total 980 ml Output Total 2000 ml Balance -1020 ml QUAN GARZA MD Jul 14, 2019 12:08
--- NOTE | 2019-07-14 12:42 | IPN ---
DATE OF SERVICE: 07/14/2019 Mr. Lobo is seen this morning on his bedside. He is resting comfortably and I woke him up. Yesterday afternoon, he underwent hemodialysis which he tolerated well. The patient continues to have vague complaints, but overall much better with his mentation improved. He has no fever or chills. On physical examination, temperature 97.2 degrees Fahrenheit, heart rate 65 per minute and respiratory rate 18 per minute. Blood pressure 92/55 mmHg and oxygen saturation 94% on 1 liter oxygen. Head is atraumatic. Neck veins difficult to be assessed. Oral hygiene is poor. Heart sounds are distant and irregular in rhythm. Lungs have diminished breath sounds bilaterally. Abdomen: Obese, soft and nontender. Bowel sounds are present. Extremities: Without any cyanosis or clubbing. Right arm AV fistula is patent. Neurologically, he seems to be at his baseline mentation. Today's labs show WBC count 6.7, hemoglobin 9.3 and hematocrit 29.2. Sodium 139, potassium 4.3, CO2 27, BUN 25 and creatinine 4.75. Ammonia level is down to 80. PROBLEMS: 1. Altered mentation, most likely related to hepatic encephalopathy and has already improved. He remains on lactulose. 2. End-stage renal disease. The patient was dialyzed yesterday and his volume status is reasonably well-compensated. There is no urgent need for dialysis today. He can be dialyzed again tomorrow at his regular day and time. 3. Anemia. There is no active bleeding and anemia is stable at about baseline. This will be managed with dialysis. 4. Generalized weakness and deconditioning. The patient has [facility] in [facility] and will likely go back to the [facility]. From a renal standpoint, he is stable for discharge back to [facility] today.
[2019-07-14 16:00] VITALS: BP 102/51
[2019-07-14] MEDS ORDERED: WARFARIN SOD 2 MG TAB PO SCH (17:00)
[2019-07-14 20:00] VITALS: BP 122/64
[2019-07-15] VITALS: BP 112/52
[2019-07-15 01:02] VITALS: BP 96/65
[2019-07-15] MEDS: cefTRIAXone SOD 1 GM in D5W MINI-BAG PLUS 50 ML IV SCH (01:33)
[2019-07-15] MEDS: AZITHROMYCIN INJ 500 MG, VIAL MATE ADAPTER 1 EACH in D5W 250 ML IV SCH (02:24)
[2019-07-15] MEDS: LACTULOSE 20 GM/30 ML SYRUP UD PO SCH ×7 (03:46→23:59)
[2019-07-15] MEDS: MIDODRINE 5 MG TAB PO SCH ×3 (05:24→18:11)
[2019-07-15] MEDS: VITAMIN D 1,000 INTERNATIONAL UNITS TABLET PO SCH (05:24)
[2019-07-15] MEDS: SLF 3 ML SYR IV SCH ×3 (05:25→23:43)
[2019-07-15] MEDS: CYANOCOBALAMIN 500 MCG TAB PO SCH (05:25)
[2019-07-15 06:00] VITALS: BP 91/50
[2019-07-15 07:25] LABS: BASO % 0.5 % (0.0-1.0); EOS # 0.1 10^3/uL (0.0-0.5); EOS % 0.7 % (0.0-3.0); HEMATOCRIT 28.8 % (42.0-52.0); HEMOGLOBIN 9.2 g/dl (13.5-17.5); LYMPH # 1.4 10^3/uL (1.5-5.0); LYMPH % 18.8 % (24.0-44.0); MEAN CORPUSCULAR HEMOGLOBIN 34.3 pg (27.0-33.0); MEAN CORPUSCULAR HGB CONC 31.9 g/dl (32.0-36.5); MEAN CORPUSCULAR VOLUME 107.5 fl (80.0-96.0); MONO # 1.3 10^3/uL (0.0-0.8); MONO % 17.6 % (0.0-5.0); NEUTROPHILS # 4.5 10^3/uL (1.5-8.5); PLATELET COUNT, AUTOMATED 101 10^3/uL (150-450); RED BLOOD COUNT 2.68 10^6/uL (4.30-6.10); WHITE BLOOD COUNT 7.3 10^3/uL (4.0-10.0)
[2019-07-15 07:36] LABS: INR 2.25; PROTHROMBIN TIME 24.7 SECONDS (11.8-14.0)
[2019-07-15 07:42] LABS: CALCIUM LEVEL 7.9 MG/DL (8.8-10.2); CREATININE FOR GFR 5.81 MG/DL (0.70-1.30); GLOMERULAR FILTRATION RATE 12.4 (>42); POTASSIUM SERUM 4.5 MEQ/L (3.5-5.1)
[2019-07-15] MEDS: TIOTROPIUM INHALER/CAPSULE (SPIRIVA) INH SCH (08:05)
[2019-07-15] MEDS: (RENVELA) SEVELAMER **CARBONate** 800 MG TAB PO SCH ×3 (09:02→18:11)
[2019-07-15 10:00] VITALS: BP 102/54
--- NOTE | 2019-07-15 10:30 | IPNPDOC ---
Text Note Date of Service The patient was seen on 07/15/19. NOTE Subjective: Patient is awake and alert this am. At baseline mental status. Co mplains of difficulty in hearing and wants his ears checked out. This is not new as per him. Says his hearing has become worse VITAL SIGNS: Please see below. GEN: Obese. awake , alert and comfortable INTEGUMENT: not flushed/ not jaundice / no rashes / has keloid at scars at left upper chest & catheter at right upper chest HEENT: normocephalic, atraumatic, moist mucous membranes. CVS: RRR/NMRG/+ lower extremity edema LUNGS: breath sounds are diminished, bibasal crackles. ABDOMEN: Contour (obese) / firm & not tender with palpation MSK/EXTREMITIES: range of motion intact in all 4 extremities / s/p left transmetatarsal amputation. rue AVF. Bipedal chronic stasis changes with 1+ chronic edema. NEURO: No focal neurodeficits. Labs and radiology: reviewed. Assessment and plan: Mr. Lobo is a 74-year-old male with a history of A. fib, pacemaker for tachybrady, chronic HTN, ESRD, PVD, obesity, ELISSA, COPD, IDDM with neuropathy, liver cirrhosis, small vessel ischemic disease, right eye blindness, who is admitted for evaluation of altered mental status and tx of possible L sided PNA. Acute metabolic Encephalopathy due to hepatic encephalopathy No significant hypercarbia in VVG to cause encephalopathy prolactin elevated ? cause. No seizure noted and no history of seizure .? due to ESRD status. will start on rifaximin on discharge currently on ceftriaxone. will restart lactulose tomorrow to keep 2 to 3 good bowel movements daily Cirrhosis of Liver etiology probably obesity and chronic heart failure as seen in Liver US of 02/2019 with high ammonia levels and chronic thrombo cytopenia. Dyspnea possibly probably due to fluid overload I do not think he has pneumonia . will continue ceftriaxone for hepatic encephalopathy. No fever or elevation of WBC Blood cultures negative CXR few infiltrates and chronic changes. The infiltrates i think are atelectatasis vs fluid. Obesity with ELISSA moderate pulmonary hypertension and chronic right heart failure. continue CPAP ESRD continue maintenance HD, sevelemer, calcium and vit D Chronic Atrial fibrillation rate controlled with h/o tachybrady syndrome has pacemaker in place continue coumadin. hold metoprol due to hypotension. 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 as he has shuttering and a strong Southern accent. Anemia of chronic disease due to ESRD. Hg is at baseline Will continue to monitor counts VS,Fishbone, I+O VS, Fishbone, I+O Laboratory Tests 07/15/19 07:03 Vital Signs Date Time Temp Pulse Resp B/P (MAP) Pulse Ox O2 Delivery O2 Flow Rate FiO2 07/15/19 10:00 96.6 81 19 102/54 (70) 93 Room Air 07/14/19 16:00 1.0 I&O- Last 24 Hours up to 6 AM 07/15/19 06:00 Intake Total 785 ml Output Total 0 ml Balance 785 ml QUAN GARZA MD Jul 15, 2019 10:30
[2019-07-15] MEDS ORDERED: XIFA550T PO (11:32)
[2019-07-15] MEDS ORDERED: LACT10SO29 PO (11:32)
[2019-07-15] MEDS ORDERED: LIDOCAINE 1% SDV 5 ML VIAL SQ ONE (12:15)
[2019-07-15] MEDS ORDERED: HEPARIN 1,000 UNITS/ML 10ML VIAL (FOR RADIOLOGY& DIALYSIS ONLY)(J1644-10) IV ONE (12:15)
[2019-07-15] MEDS: ASPIRIN 81 MG ENTERIC TAB PO SCH (13:01)
[2019-07-15] MEDS: GABAPENTIN 100 MG CAP PO SCH (13:01)
[2019-07-15] MEDS: OYSTER SHELL CALCIUM 500 MG TAB PO SCH (13:01)
--- NOTE | 2019-07-15 16:32 | IPN ---
DATE: 07/15/2019 Mr. Lobo is seen this afternoon during hemodialysis. He has been mostly sleeping but gets up and eats. At present he is resting comfortably. PHYSICAL EXAMINATION Temperature 96.6 degrees Fahrenheit, heart rate 80 per minute and respiratory rate 20 per minute. Blood pressure 102/54 mmHg and oxygen saturation 93% on room air. Head is atraumatic. Neck: Supple and JVD difficult to be assessed. Heart: Sounds are irregular and lungs with diminished breath sounds. Abdomen: Obese, soft and nontender and bowel sounds are present. Extremities: Without any cyanosis or clubbing. Right arm AV fistula is currently being used for dialysis. LABS: Today's labs show WBC count 7.3, hemoglobin 9.2 and hematocrit 28.8. Platelets 101. Sodium 137, potassium 4.5, CO2 26, BUN 34 and creatinine 5.81. Ammonia level was up to 99 again today. PROBLEMS 1. End-stage renal disease. The patient is being dialyzed today and tolerating dialysis well. His volume status is reasonably well-compensated. 2. Hepatic encephalopathy with cirrhosis of liver. The patient has recurrent encephalopathy with elevated serum ammonia level. At present he has been on lactulose with some improvement. 3. Anemia. His anemia is stable and we will continue to manage with Aranesp once a week during dialysis. 4. Atrial fibrillation, ventricular rate has been well controlled and the patient remains on chronic Coumadin therapy with INR at 2.25 which is therapeutic. DISPOSITION The patient is likely to be discharged back to skilled nursing today.
[2019-07-15 17:45] VITALS: BP 103/56
[2019-07-15] MEDS: WARFARIN SOD 4 MG TAB PO SCH (18:11)
[2019-07-16] MEDS: LACTULOSE 20 GM/30 ML SYRUP UD PO SCH ×2 (00:08→04:00)
[2019-07-16 02:00] VITALS: BP 89/46
[2019-07-16] MEDS: cefTRIAXone SOD 1 GM in D5W MINI-BAG PLUS 50 ML IV SCH (02:27)
[2019-07-16 06:00] VITALS: BP 91/56
[2019-07-16] MEDS: SLF 3 ML SYR IV SCH ×2 (06:19→13:17)
[2019-07-16 06:35] LABS: BASO # 0.1 10^3/uL (0.0-0.2); BASO % 0.7 % (0.0-1.0); EOS # 0.1 10^3/uL (0.0-0.5); EOS % 0.9 % (0.0-3.0); HEMATOCRIT 28.7 % (42.0-52.0); HEMOGLOBIN 9.2 g/dl (13.5-17.5); LYMPH # 1.2 10^3/uL (1.5-5.0); LYMPH % 17.3 % (24.0-44.0); MEAN CORPUSCULAR HEMOGLOBIN 34.3 pg (27.0-33.0); MEAN CORPUSCULAR HGB CONC 32.1 g/dl (32.0-36.5); MEAN CORPUSCULAR VOLUME 107.1 fl (80.0-96.0); MONO # 1.5 10^3/uL (0.0-0.8); MONO % 20.9 % (0.0-5.0); NEUTROPHILS # 4.2 10^3/uL (1.5-8.5); NEUTROPHILS % 59.6 % (36.0-66.0); RED BLOOD COUNT 2.68 10^6/uL (4.30-6.10)
[2019-07-16 06:41] LABS: PLATELET COUNT, AUTOMATED 95 10^3/uL (150-450)
[2019-07-16 06:46] LABS: INR 2.12; PROTHROMBIN TIME 23.5 SECONDS (11.8-14.0)
[2019-07-16 06:50] LABS: CALCIUM LEVEL 8.3 MG/DL (8.8-10.2); CREATININE FOR GFR 4.79 MG/DL (0.70-1.30); GLOMERULAR FILTRATION RATE 15.5 (>42)
[2019-07-16] MEDS: TIOTROPIUM INHALER/CAPSULE (SPIRIVA) INH SCH (08:54)
[2019-07-16] MEDS ORDERED: LACTULOSE 20 GM/30 ML SYRUP UD PO SCH (09:00)
[2019-07-16 10:00] VITALS: BP 89/55
[2019-07-16] MEDS: (RENVELA) SEVELAMER **CARBONate** 800 MG TAB PO SCH ×2 (10:07→13:16)
[2019-07-16] MEDS: MIDODRINE 5 MG TAB PO SCH ×2 (10:07→13:20)
[2019-07-16] MEDS: CYANOCOBALAMIN 500 MCG TAB PO SCH (10:07)
[2019-07-16] MEDS: VITAMIN D 1,000 INTERNATIONAL UNITS TABLET PO SCH (10:07)
[2019-07-16] MEDS: GABAPENTIN 100 MG CAP PO SCH (13:16)
[2019-07-16] MEDS: OYSTER SHELL CALCIUM 500 MG TAB PO SCH (13:16)
[2019-07-16] MEDS: ASPIRIN 81 MG ENTERIC TAB PO SCH (13:16)
--- NOTE | 2019-07-16 16:23 | DS.PDOC ---
Discharge Summary General Date of Admission Jul 12, 2019 at 23:23 Date of Discharge 07/16/19 Discharge Summary PROCEDURES PERFORMED DURING STAY: [None]. 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 HISTORY OF PRESENT ILLNESS: See history and physical HOSPITAL COURSE: Mr. Lobo is a 74-year-old male with a history of A. fib, pacemaker for tachybrady, chronic HTN, ESRD, PVD, obesity, ELISSA, COPD, IDDM with neuropathy, liver cirrhosis, small vessel ischemic disease, right eye blindness, who is admitted for evaluation of altered mental status and tx of possible L sided PNA. Acute metabolic Encephalopathy due to hepatic encephalopathy No significant hypercarbia in VVG to cause encephalopathy prolactin elevated ? cause. No seizure noted and no history of seizure .? due to ESRD status. will start on rifaximin on discharge will restart lactulose to keep 2 to 3 good bowel movements daily Cirrhosis of Liver etiology probably obesity and chronic heart failure as seen in Liver US of 02/2019 with high ammonia levels and chronic thrombocytopenia. Dyspnea possibly probably due to fluid overload I do not think he has pneumonia . will continue ceftriaxone for hepatic encephalopathy. No fever or elevation of WBC Blood cultures negative CXR few infiltrates and chronic changes. The infiltrates i think are atelectatasis vs fluid. Obesity with ELISSA moderate pulmonary hypertension and chronic right heart failure. continue CPAP ESRD continue maintenance HD, sevelemer, calcium and vit D Chronic Atrial fibrillation rate controlled with h/o tachybrady syndrome has pacemaker in place continue coumadin. 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 as he has shuttering and a strong [place] accent. Anemia of chronic disease due to ESRD. Hg is at baseline DISCHARGE MEDICATIONS: Please see below. ALLERGIES: Please see below. PHYSICAL EXAMINATION ON DISCHARGE: VITAL SIGNS: Please see below. GEN: Obese. awake , alert and comfortable INTEGUMENT: not flushed/ not jaundice / no rashes / has keloid at scars at left upper chest & catheter at right upper chest HEENT: normocephalic, atraumatic, moist mucous membranes. CVS: RRR/NMRG/+ lower extremity edema LUNGS: breath sounds are diminished, bibasal crackles. ABDOMEN: Contour (obese) / firm & not tender with palpation MSK/EXTREMITIES: range of motion intact in all 4 extremities / s/p left transmetatarsal amputation. rue AVF. Bipedal chronic stasis changes with 1+ chronic edema. NEURO: No focal neurodeficits. LABORATORY DATA: Please see below. ACTIVITY: [As tolerated]. DIET: carb consistent, fluid restriction 2 liters. DISPOSITION: [facility]. DISCHARGE INSTRUCTIONS: Will need referral to GI for cirrhosis [facility] DISCHARGE CONDITION: [Stable]. TIME SPENT ON DISCHARGE: 35 minutes. Vital Signs/I&Os Vital Signs Date Time Temp Pulse Resp B/P (MAP) Pulse Ox O2 Delivery O2 Flow Rate FiO2 07/16/19 06:00 98.3 77 18 91/56 (68) 96 Room Air 07/14/19 16:00 1.0 I&O- Last 24 Hours up to 6 AM 07/16/19 06:00 Intake Total 430 ml Output Total 2000 ml Balance -1570 ml Laboratory Data Labs 24H Laboratory Tests 2 07/15/19 23:10: Bedside Glucose (Misc Panel) 125H 07/16/19 06:08: Immature Granulocyte % (Auto) 0.6, Neutrophils (%) (Auto) 59.6, Lymphocytes (%) (Auto) 17.3L, Monocytes (%) (Auto) 20.9H, Eosinophils (%) (Auto) 0.9, Basophils (%) (Auto) 0.7, Neutrophils # (Auto) 4.2, Lymphocytes # (Auto) 1.2L, Monocytes # (Auto) 1.5H, Eosinophils # (Auto) 0.1, Basophils # (Auto) 0.1, Nucleated Red Blood Cells % (auto) 0.7H, Immature Platelet Fraction 8.7, Prothrombin Time 23.5H, Prothromb Time International Ratio 2.12, Anion Gap 6L, Glomerular Filtration Rate 15.5L, Calcium Level 8.3L CBC/BMP Laboratory Tests 07/16/19 06:08 FSBS Laboratory Tests Test 07/15/19 23:10 Range/Units Bedside Glucose (Misc Panel) 125 83-110 MG/DL Microbiology Microbiology 07/13/19 Blood Culture - Preliminary, Resulted No Growth after 72 hours. All specime... Discharge Medications Scheduled Aspirin (Aspirin EC) 81 Mg Tab, 81 MG PO DAILY, (Reported) @ 1300 Calcium Carbonate (Calcium Carbonate) 500 Mg Tablet, 500 MG PO DAILY, (Reported) @ 1300 Cholecalciferol (Vitamin D3) (Vitamin D3) 1,000 Unit Tablet, 1,000 UNITS PO DAILY, (Reported) Cyanocobalamin (Vitamin B-12) (Vitamin B-12) 500 Mcg Tab, 1,000 MCG PO DAILY, (Reported) Gabapentin (Gabapentin) 100 Mg Cap, 100 MG PO DAILY, (Reported) AT NOON Lactulose (Lactulose) 10 Gm/15 Ml Solution, 30 ML PO BID for constipation Lidocaine/Prilocaine (Lidocaine-Prilocaine Cream) 2.5%/2.5% Cream..g., 1 APLCT TOP ASDIRECTED, (Reported) APPLY TO DIALYSIS ACCESS SITE ONE HOUR PRIOR TO DIALYSIS THU, THU, THU Metoprolol Tartrate (Metoprolol Tartrate) 25 Mg Tab, 25 MG PO BID, (Reported) @ 1300, 2100 Midodrine HCl (Midodrine HCl) 5 Mg Tablet, 5 MG PO 3XW, (Reported) THU, THU, THU. @ 0500, 1300, 2100 Midodrine HCl (Midodrine HCl) 5 Mg Tablet, 5 MG PO 4XWK, (Reported) SUN, TUES, THURS, SAT @ 0800, 1300, 2000 Rifaximin (Xifaxan) 550 Mg Tablet, 1 TAB PO BID Sevelamer Carbonate (Sevelamer Carbonate) 800 Mg Tab, 1,600 MG PO 3XW, (Reported) THU, THU, THU. @ 0600, 1200, 1700 Sevelamer Carbonate (Renvela) 800 Mg Tablet, 1,600 MG PO 4XWK, (Reported) SUN, , , SAT @ 0800, 1200, 1700 Umeclidinium [place] (Incruse Ellipta) 62.5 Mcg Blst.w.dev, 1 PUFF INH DAILY, (Reported) @ 1300 Warfarin Sodium (Warfarin Sodium) 4 Mg Tablet, 4 MG PO 4XWK, (Reported) THURSDAY, THURSDAY, THURSDAY AND THURSDAY @ 1700 Warfarin Sodium (Warfarin Sodium) 2 Mg Tablet, 2 MG PO 3XW, (Reported) THURSDAY, THURSDAY AND THURSDAY @ 1700 Scheduled PRN Acetaminophen (Acetaminophen) 650 Mg Supp.rect, [address] Q4H PRN for PAIN, (Reported) Acetaminophen (Acetaminophen) 325 Mg Tablet, 650 MG PO Q4H PRN for PAIN, (Reported) Albuterol Sulfate (Ventolin Hfa) 108 Mcg/Act Aer, 2 PUFFS INH QID PRN for SHORTNESS OF BREATH, (Reported) Bisacodyl (Dulcolax) 10 Mg Supp.rect, [address] DAILY PRN for CONSTIPATION, (Reported) Hydroxyzine HCl (Hydroxyzine HCl) 25 Mg Tablet, 25 MG PO BID PRN for ITCHING, (Reported) Nitroglycerin (Nitrostat) 0.4 Mg Subl, 0.4 MG SL NITRO PRN for ANGINA, (Reported) Sodium Phosphate,[place]-Dibasic (Fleet Enema) 133 Ml Enema, [address] DAILY PRN for CONSTIPATION, (Reported) Allergies Coded Allergies: No Known Allergies (Verified , 03/22/19) QUAN GARZA MD Jul 16, 2019 16:21
== END 2019-07-16 14:46 | DRG 441 ==
LOC: M ED 19:44 → M ED INP 23:23 → ENRESERVTM 07-13 00:19 → CANRESERV 07-13 00:19 → ENRESERVDT 07-13 00:19 → ENRESERVTM 07-13 00:56 → ENRESERVDT 07-13 00:56 → CANRESERV 07-13 00:56 → ENRESERVDT 07-13 01:04 → ENRESERVTM 07-13 01:04 → M PCU 07-13 01:33 → M MSPAV 07-15 01:02
PROVIDERS: ADMIT Internal Medicine; ATTEND Internal Medicine Nephrology
DX: K72.90 Hepatic failure, unspecified without coma (principal); G93.41 Metabolic encephalopathy; N18.6 End stage renal disease; I12.0 Hypertensive chronic kidney disease with stage 5 chronic kidney disease or end stage renal disease; E72.20 Disorder of urea cycle metabolism, unspecified; I48.91 Unspecified atrial fibrillation; I73.9 Peripheral vascular disease, unspecified; E66.9 Obesity, unspecified; Z68.39 Body mass index [BMI] 39.0-39.9, adult; G47.33 Obstructive sleep apnea (adult) (pediatric); E11.42 Type 2 diabetes mellitus with diabetic polyneuropathy; K74.60 Unspecified cirrhosis of liver; H54.61 Unqualified visual loss, right eye, normal vision left eye; Z79.891 Long term (current) use of opiate analgesic; J44.9 Chronic obstructive pulmonary disease, unspecified; Z99.2 Dependence on renal dialysis; Z79.01 Long term (current) use of anticoagulants; Z95.0 Presence of cardiac pacemaker; Z86.79 Personal history of other diseases of the circulatory system; R06.89 Other abnormalities of breathing; R06.00 Dyspnea, unspecified; Z79.82 Long term (current) use of aspirin; Z79.899 Other long term (current) drug therapy; D63.1 Anemia in chronic kidney disease; I27.20 Pulmonary hypertension, unspecified; I50.812 Chronic right heart failure; R47.9 Unspecified speech disturbances; Z89.432 Acquired absence of left foot; R53.1 Weakness

== ENCOUNTER → 2019-07-12 | Outpatient (REF) ==
[~2019-07-12] MED LIST changes: +ACET1TAB55 PO; +ACET65SU PR; +DULC10SU2 PR; +FLEEENE12 PR
[2019-07-12 16:16] LABS: INR 1.99; PROTHROMBIN TIME 22.4 SECONDS (11.8-14.0)
== END ==
LOC: SKLAB3 15:10
PROVIDERS: ATTEND Internal Medicine
DX: I48.91 Unspecified atrial fibrillation (principal)

== ENCOUNTER 2019-07-18 07:48 | Inpatient (IN) | payer MEDICARE, MEDICAID ==
[2019-07-18] VITALS (8 sets, daily range): BP systolic 87–98; BP diastolic 54–62; O2SAT 93–99
[~2019-07-18] VITALS: Ht 188 cm; Wt 130.7 kg
[~2019-07-18 07:48] MED LIST changes: +ACET1TAB55 PO; +ACET65SU PR; +DULC10SU2 PR; +FLEEENE12 PR
--- NOTE | 2019-07-18 08:29 | REP ---
Portable chest x-ray: Single view. History: Altered mental status. Comparison study: July 12, 2019. Findings: Monitoring electrodes are seen. A unipolar pacemaker is seen in the right heart via the left side. Moderate to marked cardiomegaly is observed unchanged. Pulmonary vasculature is cephalized but less congested than on the July 12, 2019 study. There is linear fibrosis versus plate-like atelectasis in the perihilar regions bilaterally. No new infiltrate. Impression: Moderate to marked cardiomegaly with pacemaker. Cephalization. No evidence of pulmonary edema or pleural effusion. Bilateral perihilar fibroatelectatic changes. Electronically Signed by Wing Bowman MD 07/18/2019 09:35 A
[2019-07-18] MEDS: OYSTER SHELL CALCIUM 500 MG TAB PO SCH (09:00)
[2019-07-18] MEDS: METOPROLOL TART 25 MG TABLET PO SCH ×2 (09:00→18:31)
[2019-07-18] MEDS: rifAXIMin 550 MG TAB (XIFAXAN) PO SCH ×2 (09:00→20:09)
[2019-07-18] MEDS: CYANOCOBALAMIN 500 MCG TAB PO SCH (09:00)
[2019-07-18] MEDS: MIRALAX *UNIT DOSE* 17GM PACKET PO SCH (09:00)
[2019-07-18] MEDS: GABAPENTIN 100 MG CAP PO SCH (09:00)
[2019-07-18] MEDS: VITAMIN D 1,000 INTERNATIONAL UNITS TABLET PO SCH (09:00)
[2019-07-18 09:08] LABS: VENOUS BASE EXCESS -2.9 (-2.0-2.0); VENOUS HCO3 24.5 MEQ/L (23.0-27.0); VENOUS O2 SATURATION 90.2 % (60.0-80.0); VENOUS PARTIAL PRESSURE CO2 54.9 mmHg (38.0-50.0); VENOUS PARTIAL PRESSURE O2 70.9 mmHg (30.0-50.0); VENOUS PH 7.268 UNITS (7.330-7.430); VENOUS STANDARD HCO3 21.9 MEQ/L; VENOUS TOTAL CO2 26.2 MEQ/L (24.0-28.0)
[2019-07-18 09:14] LABS: BASO # 0.1 10^3/uL (0.0-0.2); BASO % 0.8 % (0.0-1.0); EOS # 0.1 10^3/uL (0.0-0.5); EOS % 1.4 % (0.0-3.0); HEMOGLOBIN 10.3 g/dl (13.5-17.5); LYMPH # 1.1 10^3/uL (1.5-5.0); LYMPH % 16.7 % (24.0-44.0); MEAN CORPUSCULAR HGB CONC 31.2 g/dl (32.0-36.5); MEAN CORPUSCULAR VOLUME 108.9 fl (80.0-96.0); MONO # 1.3 10^3/uL (0.0-0.8); MONO % 19.2 % (0.0-5.0); NEUTROPHILS % 61.4 % (36.0-66.0); PLATELET COUNT, AUTOMATED 119 10^3/uL (150-450); RED BLOOD COUNT 3.03 10^6/uL (4.30-6.10); WHITE BLOOD COUNT 6.6 10^3/uL (4.0-10.0)
[2019-07-18] MEDS ORDERED: LACT10SO29 PO (09:49)
[2019-07-18] MEDS ORDERED: XIFA550T PO (09:49)
[2019-07-18 10:12] LABS: ALBUMIN 2.8 GM/DL (3.2-5.2); BILIRUBIN,DIRECT 0.7 MG/DL (0.0-0.2); CALCIUM LEVEL 8.5 MG/DL (8.8-10.2); CK-MB VALUE MASS 4.8 NG/ML (<3.6); CREATININE FOR GFR 6.59 MG/DL (0.70-1.30); GLOMERULAR FILTRATION RATE 10.8 (>42); MB/CK RELATIVE INDEX 3.31 (< OR =4); POTASSIUM SERUM 4.8 MEQ/L (3.5-5.1); THYROID STIMULATING HORMONE 2.7 uIU/ML (0.358-3.740); TOTAL PROTEIN 6.9 GM/DL (6.4-8.2); TROPONIN I 0.21 NG/ML (< 0.10)
[2019-07-18] MEDS ORDERED: ASPI81CH33 PO (10:12)
[2019-07-18] MEDS ORDERED: HEPARIN 1,000 UNITS/ML 10ML VIAL (FOR RADIOLOGY& DIALYSIS ONLY)(J1644-10) IV ONE (11:15)
[2019-07-18 11:35] LABS: INR 2.77; PROTHROMBIN TIME 29.2 SECONDS (11.8-14.0)
[2019-07-18 11:36] LABS: PARTIAL THROMBOPLASTIN TIME 55.4 SECONDS (25.0-38.4)
[2019-07-18] MEDS ORDERED: ACETAMINOPHEN TAB 650MG DOSE (2X325MG) PO PRN (11:45)
[2019-07-18] MEDS ORDERED: LACTULOSE 20 GM/30 ML SYRUP UD PO ONE (11:45)
[2019-07-18] MEDS ORDERED: MOM 30ML SUSPENSION UDC PO PRN (11:45)
[2019-07-18] MEDS ORDERED: FLEET ENEMA PR PRN (12:00)
[2019-07-18] MEDS ORDERED: (RENVELA) SEVELAMER **CARBONate** 800 MG TAB PO SCH (12:00)
[2019-07-18] MEDS ORDERED: BISACODYL 10 MG SUPP PR PRN (12:00)
[2019-07-18] MEDS ORDERED: hydrOXYzine 25 MG TAB PO PRN (12:00)
[2019-07-18] MEDS ORDERED: ACETAMINOPHEN 325 MG TAB PO PRN (12:00)
[2019-07-18] MEDS ORDERED: MIDODRINE 5 MG TAB PO SCH ×2 (12:00)
[2019-07-18] MEDS: (RENVELA) SEVELAMER **CARBONate** 800 MG TAB PO SCH ×2 (12:30→18:00)
[2019-07-18] MEDS: SLF 3 ML SYR IV SCH ×2 (14:00→20:09)
--- NOTE | 2019-07-18 14:43 | HPEPDOC ---
[facility] Medical History & Physical Date of Admission Jul 18, 2019 Date of Service: Jul 18, 2019 Primary Care Physician: Jr Burch Collins Attending Physician: LONA GUTIERREZ MD History and Physical CHIEF COMPLAINT: [facility] Staff reports worsening of the pt's mentation this morning when they were preparing him for dialysis. HISTORY OF PRESENT ILLNESS: Pt is a resident of the [facility] who is there for rehabilitation. Pt was recently admitted to [facility] on 07/12/2019 for hepatic encephalopathy and was D/c on the 07/16/2019. Today staff noticed that he has had deterioration in his mentation from baseline while getting him ready for dialysis and he was subsequently brought to [facility] ER. Upon exam pt was obtunded and unable to answer verbal questions. He had no representatives in the room with him. In the ER pt was found to have elevated ammonia levels, respiratory acidosis, and elevated troponin at .21. He will be admitted for continued AMS. Nephrology has been consulted and plans for dialysis upon admission. PAST MEDICAL HISTORY: Hepatic encephalopathy Cirrhosis of Liver Chronic hypotension ESRD on dialysis Diabetes mellitus, type 2 with neuropathy. Noninsulin dependent Chronic Atrial fibrillation on warfarin Status post pacemaker placement for tachybradycardia syndrome PVD COPD w/o base line O2 Right eye blindness Speech abnormality Anemia of chronic disease TB Exposure Morbid Obesity ELISSA on CPAP Severe pulmonary hypertension with chronic right hear failure Status post transmetatarsal amputation of the left foot after sustaining third- degree delgado MRSA bacteremia with septic shock due to perm cath infection in May 2019 PAST SURGICAL HISTORY: 1. Status post pacemaker placement for tachybradycardia syndrome 2. Status post transmetatarsal amputation of the left foot 3. Status post ventral hernia repair SOCIAL HISTORY: Unable to obtain due to altered mentation. FAMILY HISTORY: Unable to obtain due to altered mentation. ALLERGIES: Please see below. REVIEW OF SYSTEMS: Unable to obtain due to pt's medical condition. HOME MEDICATIONS: Please see below. PHYSICAL EXAMINATION: VITAL SIGNS: Please see below. GENERAL APPEARANCE: Pt seen laying in bed obtunded. Pt groans when aroused by verbal stimuli but fails to open his eyes or make meaningful words. HEENT: Bilateral injected and icteric sclera with clouding of the anterior chamber in his R eye. CARDIOVASCULAR: Irregular rhythm noted on exam. Exam limited by habitus and pt's groaning. LUNGS: Decreased air movement bilaterally with poor inspiratory effort. Pt is breathing with help of abdominal muscles. ABDOMEN: Obese w/ obvious umbilical hernia noted on exam. No rigidity, guarding, or rebound tenderness. No organomegaly noted. Exam limited by body habitus. EXTREMITIES: Asterixis noted in pt's L hand with passive extension of the wrist. Bilateral 1-2+ LE pitting edema to the knee. L foot was covered in dressing. NEUROLOGICAL: Pt is obtunded on exam and unable to follow commands. LABORATORY DATA: See below. IMAGING: CT Head w/o contrast pending. MICROBIOLOGY: Please see below. ASSESSMENT/PLAN: AMS suspected to be 2/2 to hepatic encephalopathy vs metabolic encephalopathy vs less likely neurologic lesion -Complete dialysis treatment and reassess -CT head w/o contrast to r/o acute ischemic event -Elevated ammonia will continue to trend -Pt on rifaximin and lactulose at home -Admit to PCU/ frequent neuro checks -Continue home lactulose and rifaximin -MRI of the head unable to be obtained due to pacemaker Respiratory acidosis -Likely to be a chronic issue when comparing to old ABGs -He is breathing at a rate of 20 with saturation hovering around 92-97% on RA -Pt is hypercarbic likely due to his ELISSA, Obesity related hypoventilation and chronic COPD -Repeat ABG pending after his dialysis treatment -Will monitor him closely with continuous pulse oximetry Elevated troponin -troponin leak, pt unable voice any cardiac complaints -may be secondary to fluid overload and ESRD -trend cardiac markers Lactic acidosis -Possibly secondary to hypotension -Pt does not appear septic with a white count of 6.6 -No apparent source of infection noted -Reassess after dialysis Cirrhosis of Liver -continue to monitor lab values Chronic hypotension -Continue on midodrine ESRD on dialysis -Complete dialysis today and resume weekly MWF schedule -Nephro consult placed, appreciate input Diabetes mellitus, type 2 with neuropathy -Sliding scale Chronic Atrial fibrillation -Continue outpatient warfarin -Monitor INR for therapeutic range Status post pacemaker placement for tachybradycardia syndrome -telemetry -heart rate is controlled PVD -continue ASA Chronic COPD -No supplemental O2 at baseline -continue inhaler therapy Anemia of chronic disease -Due to ESRD -Hg at baseline ELISSA -continue with CPAP Severe pulmonary hypertension with chronic right hear failure -Continue with CPAP DVT Prophylaxis: Pt chronically on warfarin Disposition: Admit to PCU with close monitoring. Remaining workup pending. Back to [facility] upon resolution of acute illness. Vital Signs Vital Signs Date Time Temp Pulse Resp B/P (MAP) Pulse Ox O2 Delivery O2 Flow Rate FiO2 07/18/19 11:26 96.6 70 16 94/59 (71) 94 Room Air Laboratory Data Labs 24H Laboratory Tests 2 07/18/19 08:00: Lactic Acid Level 2.7*H, Ammonia 107H 07/18/19 08:08: Immature Granulocyte % (Auto) 0.5, Neutrophils (%) (Auto) 61.4, Lymphocytes (%) (Auto) 16.7L, Monocytes (%) (Auto) 19.2H, Eosinophils (%) (Auto) 1.4, Basophils (%) (Auto) 0.8, Neutrophils # (Auto) 4.0, Lymphocytes # (Auto) 1.1L, Monocytes # (Auto) 1.3H, Eosinophils # (Auto) 0.1, Basophils # (Auto) 0.1, Nucleated Red Blood Cells % (auto) 0.8H, Blood Gas Bicarbonate Standard 21.9, Venous Blood pH 7.268L, Venous Blood Partial Pressure CO2 54.9H, Venous Blood Partial Pressure O2 70.9H, Venous Blood Total Carbon Dioxide 26.2, Venous Blood HCO3 24.5, Venous Blood Oxygen Saturation 90.2H, Venous Blood Base Excess -2.9L, Anion Gap 10, Eve merular Filtration Rate 10.8L, Calcium Level 8.5L, Total Bilirubin 1.0, Direct Bilirubin 0.7H, Aspartate Amino Transf (AST/SGOT) 30, Alanine Aminotransferase (ALT/SGPT) 26, Alkaline Phosphatase 149H, Total Creatine Kinase 145, Creatine Kinase MB 4.8H, Creatine Kinase MB Relative Index 3.31, Troponin I 0.21H, [id number]-Type Natriuretic Peptide 62599I, Total Protein 6.9, Albumin 2.8L, Albumin/Globulin Ratio 0.68L, Thyroid Stimulating Hormone (TSH) 2.700 07/18/19 09:01: Bedside Glucose (Misc Panel) 108 07/18/19 09:02: POC Glucose (Misc Panel) 86, POC Sodium (Misc Panel) 137, POC Potassium (Misc Panel) 5.7H, POC Chloride (Misc Panel) 101, POC Total CO2 (Misc Panel) 29.0H, POC Blood Urea Nitrogen (Misc Panel 55H, POC Ionized Calcium (Misc Panel) 4.3L, POC Creatinine (Misc Panel) 7.3H, POC Hematocrit (Misc Panel) 36.0L 07/18/19 11:07: Prothrombin Time 29.2H, Prothromb Time International Ratio 2.77, Activated Partial Thromboplast Time 55.4H CBC/BMP Laboratory Tests 07/18/19 08:08 Microbiology Microbiology 07/18/19 Blood Culture, Received Pending 07/18/19 Blood Culture, Received Pending Home Medications Scheduled Aspirin (Aspirin) 81 Mg Tab.chew, 81 MG PO DAILY noon Calcium Carbonate (Calcium Carbonate) 500 Mg Tablet, 500 MG PO DAILY @ 1300 Cholecalciferol (Vitamin D3) (Vitamin D3) 1,000 Unit Tablet, 1,000 UNITS PO DAILY noon Cyanocobalamin (Vitamin B-12) (Vitamin B-12) 500 Mcg Tab, 500 MCG PO DAILY noon Gabapentin (Gabapentin) 100 Mg Cap, 100 MG PO DAILY noon Lactulose (Lactulose) 10 Gm/15 Ml Solution, 30 ML PO BID Lidocaine/Prilocaine (Lidocaine-Prilocaine Cream) 2.5%/2.5% Cream..g., 1 APLCT TOP ASDIRECTED APPLY TO DIALYSIS ACCESS SITE ONE HOUR PRIOR TO DIALYSIS MON, THU, FRI Metoprolol Tartrate (Metoprolol Tartrate) 25 Mg Tab, 25 MG PO BID @ 1300, 2100 Midodrine HCl (Midodrine HCl) 5 Mg Tablet, 5 MG PO 3XW MON, THU, FRI. @ 0500, 1300, 2100 Midodrine HCl (Midodrine HCl) 5 Mg Tablet, 5 MG PO 4XWK SUN, , , SAT @ 0800, 1300, 2000 Rifaximin (Xifaxan) 550 Mg Tablet, 550 MG PO BID started 07/16/19 for 10 days Sevelamer Carbonate (Sevelamer Carbonate) 800 Mg Tab, 1,600 MG PO 3XW MON, WED, FRI. @ 0600, 1200, 1700 Sevelamer Carbonate (Renvela) 800 Mg Tablet, 1,600 MG PO 4XWK SUN, , , SAT @ 0800, 1200, 1700 Umeclidinium [place] (Incruse Ellipta) 62.5 Mcg Blst.w.dev, 1 PUFF INH DAILY @ 1300 Warfarin Sodium (Warfarin Sodium) 4 Mg Tablet, 4 MG PO 4XWK THURSDAY, THURSDAY, THURSDAY AND THURSDAY @ 1700 Warfarin Sodium (Warfarin Sodium) 2 Mg Tablet, 2 MG PO 3XW THURSDAY, THURSDAY AND THURSDAY @ 1700 Scheduled PRN Acetaminophen (Acetaminophen) 650 Mg Supp.rect, 650 MG AL Q4H PRN for PAIN Acetaminophen (Acetaminophen) 325 Mg Tablet, 650 MG PO Q4H PRN for PAIN Albuterol Sulfate (Ventolin Hfa) 108 Mcg/Act Aer, 2 PUFFS INH QID PRN for SHORTNESS OF BREATH Bisacodyl (Dulcolax) 10 Mg Supp.rect, 10 MG AL DAILY PRN for CONSTIPATION Hydroxyzine HCl (Hydroxyzine HCl) 25 Mg Tablet, 25 MG PO BID PRN for ITCHING Nitroglycerin (Nitrostat) 0.4 Mg Subl, 0.4 MG SL NITRO PRN for ANGINA Sodium Phosphate,[place]-Dibasic (Fleet Enema) 133 Ml Enema, 1 MARTINEZ AL DAILY PRN for CONSTIPATION Allergies Coded Allergies: No Known Allergies (Verified , 03/22/19) A-FIB/CHADSVASC A-FIB History Current/History of A-Fib/PAF?: Yes Current PO Anticoag Therapy: Yes GME ATTESTATION GME ATTESTATION My faculty preceptor for this patient encounter was physically present during the encounter and was fully available. All aspects of the patient interview, examination, medical decision making process, and medical care plan development were reviewed and approved by the faculty preceptor. The faculty preceptor is aware and concurs with the plan as stated in the body of this note and will attest to such by his/her cosignature. ATTENDING NOTE I, Lona Gutierrez, have independently examined this patient and performed my own physical exam, as well as reviewed the documentation and edited where necessary. I have discussed in detail with the resident / student the findings and plan of treatment as documented by the resident / student and edited their note. I agree with their findings and treatment plan and have edited their documentation. I will continue to follow the patient during this hospital stay. - Patient was seen and evaluated at the bedside - Patient was in the process of receiving hemodialysis - He received stat CT scan of his head that was negative for any acute findings - Lab work was reviewed and revealed evidence of an elevated ammonia level - Patient was admitted to the hospital service for possible hepatic encepha lopathy - Patient was given a lactulose enema because of his confusion - Subsequent evaluation of the patient upon arrival to the floor, had revealed that his mentation had improved, however his SBP was noted to be in 90s - Patient was given midodrine by mouth and 500 cc normal saline bolus - Patient was also covered with ceftriaxone for SBP prophylaxis BHAVNA VALADEZ-3 Jul 18, 2019 14:43 LONA GUTIERREZ MD Jul 19, 2019 13:01
[2019-07-18] MEDS: MIDODRINE 5 MG TAB PO SCH ×2 (16:00→18:22)
[2019-07-18] MEDS: WARFARIN SOD 2 MG TAB PO SCH ×2 (17:00→18:36)
[2019-07-18] MEDS: TIOTROPIUM INHALER/CAPSULE (SPIRIVA) INH SCH (17:27)
[2019-07-18] MEDS ORDERED: SLF 3 ML SYR IV PRN (17:45)
[2019-07-18 17:47] LABS: ABG BASE EXCESS 0.1 (-2.0-2.0); ABG HCO3 26.2 MEQ/L (22.0-26.0); ABG O2 SATURATION 91.1 % (95.0-99.0); ABG PARTIAL PRESSURE CO2 48.8 mmHg (35.0-45.0); ABG PARTIAL PRESSURE O2 67.5 mmHg (75.0-100.0); ABG STANDARD HCO3 24.5 MEQ/L (22.0-26.0); ABG TOTAL CO2 27.7 MEQ/L (23.0-31.0); ABG pH (ARTERIAL) 7.347 UNITS (7.350-7.450)
--- NOTE | 2019-07-18 17:51 | REP ---
CT brain without contrast: History: Altered mental status. Comparison head CT study July 12, 2019. CT findings: Preliminary digital diplomatic interpreter radiograph is unremarkable. Bone window settings demonstrate an intact bony calvarium. No skull fracture or bony destructive lesion is seen. Most of the mastoid air cells are opacified consistent with mastoiditis. The other visualized paranasal sinuses are clear. There is fairly heavy vascular calcification in the internal carotid arteries. There is mild generalized volume loss. There is no evidence of intracranial hemorrhage. No acute infarction is seen. No mass or extra-axial fluid collection is observed. No midline shift is seen. No acute infarction is seen. Impression: Generalized atrophy and vascular calcification. Opacified mastoid air cells consistent with mastoiditis. This is unchanged. No acute intracranial abnormality. Electronically Signed by Wing Bowman MD 07/18/2019 08:09 P
[2019-07-18] MEDS ORDERED: LACTULOSE 20 GM/30 ML SYRUP UD PR ONE (18:00)
[2019-07-18] MEDS ORDERED: NS 500 ML IV ONE (18:15)
[2019-07-18] MEDS: DOCUSATE SODIUM 100 MG CAP PO SCH (18:31)
[2019-07-18] MEDS: LACTULOSE 20 GM/30 ML SYRUP UD PO SCH ×2 (18:35→23:44)
[2019-07-18] MEDS ORDERED: cefTRIAXone SOD 2 GM in D5W MINI-BAG PLUS 50 ML IV SCH (19:00)
[2019-07-18] MEDS ORDERED: NS 250 ML IV ONE (19:00)
[2019-07-18 19:22] LABS: CK-MB VALUE MASS 4.8 NG/ML (<3.6); MB/CK RELATIVE INDEX 4.53 (< OR =4); TROPONIN I 0.2 NG/ML (< 0.10)
--- NOTE | 2019-07-18 20:42 | ECGEPIP ---
[facility] - ED Test Date: 2019-07-18 Pat Name: KATHIA NAVARRETE Department: Room: - Gender: Male Financial Recording Clerk: : [id number] Requested By: FRANK Gold Order Number: [id number] Reading MD: Frank Hardin Measurements Intervals [place] Rate: 67 P: TN: 0 QRS: 30 QRSD: 96 T: 26 QT: 418 QTc: 444 Interpretive Statements ATRIAL FIBRILLATION LOW QRS VOLTAGE IN EXTREMITY LEADS Nonspecific ST-T wave abnormalities Similar to tracing done 07-12-19 Electronically Signed on 07-18-2019 20:42:08 EST by Frank Hardin
[2019-07-18] MEDS ORDERED: LACTULOSE 20 GM/30 ML SYRUP UD PO SCH (21:00)
[2019-07-18] MEDS ORDERED: DARBEPOETIN 200MCG/0.4ML *DIALYSIS* SYRINGE (J0882 PER 1MCG) IV SCH (21:15)
--- NOTE | 2019-07-18 21:39 | CR ---
DATE OF CONSULTATION: 07/18/2019 REQUESTING PHYSICIAN: Lona Gutierrez MD CONSULTING PHYSICIAN: Phuong Rodriguez MD REASON FOR CONSULTATION: Management of end-stage renal disease on hemodialysis. CHIEF COMPLAINT: The patient was sent from dialysis center outpatient because of inability to transfer to dialysis chair and no availability of a Calderon lift. HISTORY OF PRESENT ILLNESS : Mr. Irwin Lobo is a 74-year-old male with past medical history of end-stage renal disease on hemodialysis every Thursday, Thursday, Thursday, well-known to nephrology service from outpatient dialysis and multiple previous hospitalizations. He is a resident of [facility]. He was recently discharged from [facility] after admission from 07/12/2019June to 07/16/2019 for hepatic encephalopathy. When patient went for dialysis today patient was very obtunded. He was unable to get up from his chair and he could not be moved to the dialysis chair so he was sent back to the emergency room for further evaluation. The patient was found to have elevated ammonia levels and he was very obtunded in the emergency room. He was admitted under the hospitalist service and nephrology service was called for further help in the management of this patient and arrangement of hemodialysis. I saw and evaluated the patient at the bedside today morning in the emergency room. He was unable to provide any reliable history or review of system to me. PAST MEDICAL HISTORY: Past medical history of end-stage renal disease on hemodialysis every Thursday, Thursday, Thursday, history of liver cirrhosis and hepatic encephalopathy chronic hypotension, diabetes mellitus type 2 with peripheral neuropathy, chronic atrial fibrillation on anticoagulation, peripheral vascular disease, COPD, right eye blindness, anemia in end-stage renal disease, morbid obesity, obstructive sleep apnea, severe pulmonary hypertension with right heart failure, history of MRSA bacteremia and septic shock secondary to Perma-Cath infection in May 2019. PAST SURGICAL HISTORY: Status post pacemaker placement, status post left transmetatarsal site amputation, status post ventral hernia repair, status post right upper arm AV fistula placement. ALLERGIES: Patient has no known drug allergies. FAMILY HISTORY: No significant family history of end-stage renal disease requiring hemodialysis. SOCIAL HISTORY: The patient is a [facility] resident at this time. REVIEW OF SYSTEMS: I was unable to do any reliable review of systems, the patient was very obtunded. PHYSICAL EXAMINATION: GENERAL: Patient is obtunded and drowsy with frothing from the mouth. VITAL SIGNS: Temperature is 96.6 degrees Fahrenheit, blood pressure 94/59, pulse is 70, respiratory rate of 16, saturating 94% on room air. HEAD AND NECK EXAM: Patient's eyes are closed, he has right eye blindness, there is frothing from the mouth. Neck is supple. There is no JVD. CARDIOVASCULAR: S1, S2, irregular rate. Trace edema of the bilateral lower extremities. RESPIRATORY: Decreased breath sounds bilaterally at the bases with mild inspiratory crackles. ABDOMEN: Soft, obese, positive bowel sounds. Nontender. GENITOURINARY: Bladder is not palpable. MUSCULOSKELETAL: He has left transmetatarsal site amputation and trace edema of the bilateral lower extremities. CARPENTER FOREMAN: The patient is obtunded. He is frothing from the mouth, does not follow commands. LYMPH NODES: No significant cervical or axillary lymphadenopathy. LABORATORY REVIEW: CBC showed WBC 6.6, hemoglobin 10.3, platelets of 119. INR is 2.7. BMP showed sodium 139, potassium 4.8, chloride 103, bicarbonate 26, BUN 40, creatinine is 6.5, lactic acid 2.7, calcium 8.5, ammonia 107, Pro-BNP 14,887. Microbiology: Blood cultures are pending. IMAGING STUDIES: CT of the head was ordered which showed generalized atrophy and vascular calcification, opacified mastoid air cells consistent with mastoiditis. X-ray of the chest done in the morning showed marked cardiomegaly with pacemaker and cephalization. Bilateral perihilar atelectatic changes. CURRENT INPATIENT MEDICATIONS: The patient is currently on: - ceftriaxone 2 grams IV every 24 hours - aspirin 81 mg daily - B12 500 mcg by mouth daily - Colace 100 mg by mouth twice a day - Neurontin 100 mg by mouth daily - lactulose syrup 30 mL times one dose and then 30 mL every 6 hours - metoprolol 25 mg by mouth twice a day - midodrine 5 mg by mouth three times a day - rifaximin 550 mg by mouth twice a day - Renvela 1600 mg by mouth with meals, I am going to stop it now because this can cause constipation and make hepatic encephalopathy worse - vitamin D 1000 units by mouth daily - warfarin 4 mg by mouth Thursday, Thursday, Thursday, Thursday and 2 mg on Thursday, Thursday and ASSESSMENT: 74-year-old male with past medical history of end-stage renal disease on hemodialysis, cirrhosis of the liver with history of hepatic encephalopathy, chronic hypotension, COPD, obstructive sleep apnea, morbid obesity, admitted at this time again with hepatic encephalopathy and missing outpatient dialysis. PLAN: 1. End-stage renal disease. The patient is dialysis dependent. He missed his outpatient dialysis. He will be dialyzed as inpatient today. Ultrafiltration goal will be around 1.5 to 2 kg as tolerated by his blood pressure. 2. Chronic hypotension. Continue home dose of midodrine at this time. 3. Hepatic encephalopathy. The patient has already been started on lactulose and rifaximin. He also got a dose of rectal lactulose enema. Hemodialysis would also help improve remove the toxins and help with altered mental status. 4. Chronic atrial fibrillation. Continue anticoagulation with warfarin. Heart rate is controlled. 5. Chronic kidney disease-mineral bone disease. The patient is in hepatic encephalopathy. Phosphorus binder is being held at this time. 6. Anemia in end-stage renal disease. The patient is being started on Aranesp with dialysis. Thank you for involving me in the care of this patient. I shall be happy to follow the patient along with you tomorrow morning.
[2019-07-18 23:57] LABS: CK-MB VALUE MASS 4.5 NG/ML (<3.6); MB/CK RELATIVE INDEX 5.17 (< OR =4); TROPONIN I 0.18 NG/ML (< 0.10)
[2019-07-19] VITALS (26 sets, daily range): BP systolic 72–110; BP diastolic 49–65; O2SAT 86–97
[2019-07-19] MEDS ORDERED: GLUCAGON FOR INJ 1 MG VIAL (J1610) SC PRN
[2019-07-19] MEDS ORDERED: DEXTROSE 50% 50 ML SYRINGE IV PRN
[2019-07-19] MEDS ORDERED: GLUCOSE 4 GM CHEW TABLET PO PRN
--- NOTE | 2019-07-19 02:07 | REPVR ---
PROCEDURE INFORMATION: Exam: US Abdomen Limited, Right Upper Quadrant Exam date and time: 07/19/2019 1:21 AM Age: 74 years old Clinical indication: Abdominal tenderness and bloating; Additional info: Abdominal distension / tenderness TECHNIQUE: Imaging protocol: Real-time ultrasound of the abdomen with image documentation. Examination was focused on the right upper quadrant. COMPARISON: LIVER US 2019-03-02 19:04 FINDINGS: Liver: Unremarkable. No masses. Gallbladder: Normal. No gallstones. There is no gallbladder wall thickening. Common bile duct: Normal. No stones. No dilation. Pancreas: Pancreas obscured by bowel gas. Right kidney: Echogenic 11.3 x 5.7 x 5.5 cm right kidney, evidence of chronic medical renal disease. Intraperitoneal space: Ascites in all 4 quadrants. IMPRESSION: 1. No sonographic evidence for acute cholecystitis. 2. Echogenic 11.3 x 5.7 x 5.5 cm right kidney, evidence of chronic medical renal disease. 3. Ascites in all 4 quadrants. Electronically signed by: Frank Alejandre On 07/19/2019 02:06:58 AM
--- NOTE | 2019-07-19 02:11 | REPVR ---
PROCEDURE INFORMATION: Exam: US Duplex Bilateral Extracranial Arteries Exam date and time: 07/19/2019 1:21 AM Age: 74 years old Clinical indication: Altered mental status/memory loss; Confusion or disorientation; Patient HX: Encephalopathy esrd; Additional info: AMS TECHNIQUE: Imaging protocol: Real-time Duplex ultrasound scan of the bilateral carotid and vertebral arteries combining turner scale, color Doppler and spectral waveform analysis. Bilateral exam. COMPARISON: US Duplex,carotid (complete) 2019-03-01 22:09 FINDINGS: Study is nondiagnostic, limited by body habitus, high bifurcation of the carotids. Antegrade flow seen in the bilateral common carotid arteries without hemodynamically significant stenosis. The very proximal internal carotid arteries are very poorly visualize, but demonstrate antegrade flow and appear without severe/hemodynamically significant stenosis. Vertebral arteries not visualized. IMPRESSION: 1. Essentially nondiagnostic. If high clinical suspicion or concern, evaluation of the carotids could be performed by CTA. 2. Antegrade flow in the bilateral common carotid arteries. Vertebral and internal carotid arteries are not adequately visualized. REFERENCES: Carotid Stenosis Reference using SRU criteria: Mild: less than 50% stenosis. ICA PSV is less than 125 cm/second and plaque or intimal thickening is visible. Moderate: 50-69% stenosis. ICA PSV is 125 to 230 cm/second and plaque is visible. Severe: 70-94% stenosis. ICA PSV is more than 230 cm/second and visible plaque and lumen narrowing are seen. Near occlusion: 95-99% stenosis. ICA PSV is variable and significant plaque and luminal narrowing are seen. Occluded: 100% stenosis. No flow identified. Electronically signed by: Frank Alejandre On 07/19/2019 02:10:59 AM
[2019-07-19] MEDS: LACTULOSE 20 GM/30 ML SYRUP UD PO SCH ×4 (05:52→17:40)
[2019-07-19] MEDS: SLF 3 ML SYR IV SCH ×3 (05:53→21:24)
[2019-07-19 05:58] LABS: HEMATOCRIT 30.4 % (42.0-52.0); HEMOGLOBIN 9.8 g/dl (13.5-17.5); MEAN CORPUSCULAR HEMOGLOBIN 34.3 pg (27.0-33.0); MEAN CORPUSCULAR HGB CONC 32.2 g/dl (32.0-36.5); MEAN CORPUSCULAR VOLUME 106.3 fl (80.0-96.0); PLATELET COUNT, AUTOMATED 101 10^3/uL (150-450); RED BLOOD COUNT 2.86 10^6/uL (4.30-6.10); WHITE BLOOD COUNT 6.8 10^3/uL (4.0-10.0)
[2019-07-19 06:10] LABS: INR 3.09; PROTHROMBIN TIME 31.8 SECONDS (11.8-14.0)
[2019-07-19 06:24] LABS: ALBUMIN 2.6 GM/DL (3.2-5.2); BILIRUBIN,TOTAL 1.1 MG/DL (0.2-1.0); CALCIUM LEVEL 8.3 MG/DL (8.8-10.2); CREATININE FOR GFR 5.38 MG/DL (0.70-1.30); GLOMERULAR FILTRATION RATE 13.6 (>42); TOTAL PROTEIN 6.4 GM/DL (6.4-8.2)
[2019-07-19] MEDS: TIOTROPIUM INHALER/CAPSULE (SPIRIVA) INH SCH (07:16)
[2019-07-19] MEDS: DOCUSATE SODIUM 100 MG CAP PO SCH ×2 (09:00→20:31)
[2019-07-19] MEDS: MIRALAX *UNIT DOSE* 17GM PACKET PO SCH (09:00)
[2019-07-19] MEDS: OYSTER SHELL CALCIUM 500 MG TAB PO SCH (09:36)
[2019-07-19] MEDS: rifAXIMin 550 MG TAB (XIFAXAN) PO SCH ×2 (09:36→21:24)
[2019-07-19] MEDS: MIDODRINE 5 MG TAB PO SCH ×4 (09:36→16:27)
[2019-07-19] MEDS: CYANOCOBALAMIN 500 MCG TAB PO SCH (09:37)
[2019-07-19] MEDS: VITAMIN D 1,000 INTERNATIONAL UNITS TABLET PO SCH (09:37)
[2019-07-19] MEDS: ASPIRIN 81 MG CHEW TABLET PO SCH (09:37)
[2019-07-19] MEDS: GABAPENTIN 100 MG CAP PO SCH (09:37)
[2019-07-19] MEDS: METOPROLOL TART 25 MG TABLET PO SCH ×2 (10:09→21:00)
--- NOTE | 2019-07-19 10:38 | IPN ---
DATE: 07/19/2019 Irwin is seen while rounding for the hospitalists admitted with altered mental status. He is a [facility] resident and his primary care is Dr. New Burch. He has end-stage renal disease and was noted to have decreased mental status so was sent over after dialysis. He has had elevated ammonia levels in the past. Currently levels look far from baseline. He has a history of cirrhosis with hepatic encephalopathy, type 2 diabetes, atrial fibrillation and on chronic anticoagulant therapy peripheral arterial disease anemia of end-stage renal disease, morbid obesity complicating medical care. Severe pulmonary hypertension and right-sided heart failure, obstructive sleep apnea (ELISSA), history of methicillin resistant Staphylococcus aureus (MRSA) bacteremia, septic shock from [facility] infection 06/08/2019. Per nursing staff, he is nearly back to his baseline mental status. PHYSICAL EXAMINATION: Blood pressure 110/65, pulse 75, temperature 97.6 degrees. He is alert, conversant. No distress. Lungs: Clear. Heart: Regular rate and rhythm. Abdomen: Soft, obese, nontender. Trace peripheral edema. He does have asterixis present. IMPRESSION: 1. Hepatic encephalopathy: He did not have followup ammonia level ordered for today. Will order a ammonia level and get one tomorrow. I do not see where he has every had a "normal" ammonia level in the last 5 years so our goal will not be to normalize this. Current is above his baseline. He is on lactulose and rifaximine which we will continue. 2. Diabetes: Sliding scale of insulin coverage to be continued. 3. Atrial fibrillation: His rate is controlled. He is anticoagulant with warfarin. His INR is high today so we will hold his warfarin today. Warfarin will need to be restarted tomorrow based upon his INR. 4. Orthostatic hypotension: Continue midodrine 5 mg three times a day. 5. Elevated troponin: His troponin is at baseline and his mild elevation is secondary to his renal status and not an indication of a cardiac event. 6. End-stage renal disease: Per nephrology. 7. Anemia secondary to chronic kidney disease: Per nephrology.
[2019-07-19] MEDS ORDERED: WARFARIN SOD 4 MG TAB PO SCH (17:00)
--- NOTE | 2019-07-19 17:43 | IPN ---
DATE: 07/19/2019 SUBJECTIVE: The patient was seen and examined at the bedside today morning. He is sitting up in the sofa. He is much more awake and alert today. He was dialyzed yesterday. He tolerated the hemodialysis procedure well. Because of soft blood pressures and elevated lactic acid, he needed a small bolus of normal saline 500 mL after the hemodialysis yesterday in the evening. OBJECTIVE: Vital signs: Temperature is 97.6 degrees Fahrenheit, blood pressure 110/65, pulse is 75, respiratory rate of 16, saturating 96% on room air. Intake and output: There is no urine output recorded. Ultrafiltration with hemodialysis was 2 liters, but he needed 500 mL bolus after dialysis. Weight in the bed scale is 137 kg. PHYSICAL EXAMINATION: GENERAL: The patient is awake, alert, oriented times two, sitting up in the sofa in no apparent distress. HEAD AND NECK: Extraocular muscles intact. He has right eye blindness. Mucous membranes are moist. Neck is supple. There is no jugular venous distention (JVD). CARDIOVASCULAR: S1, S2, regular rate. Trace edema of the bilateral lower extremities. RESPIRATORY: Chest is clear to auscultation bilaterally. Bilateral equal air entry. No rales or rhonchi. ABDOMEN: Soft, obese. Positive bowel sounds. Nontender. MUSCULOSKELETAL: No clubbing or cyanosis. Pulses are 2+. CENTRAL NERVOUS SYSTEM: No focal deficit. Power is 5/5 in all extremities. LABORATORY REVIEW: CBC showed WBC 6.8, hemoglobin 9.8, platelets of 101. BMP showed sodium 140, potassium is 4, chloride 103, bicarbonate 30, BUN 29, creatinine is 5.8, calcium 8.3. Total bilirubin 1.1. Ammonia level is 60; it was 107 yesterday. Albumin is 2.6. MICROBIOLOGY: Blood cultures are pending at this time. CURRENT INPATIENT MEDICATIONS: The patient's medications were all reviewed by myself. Intravenous (IV) ceftriaxone has been stopped. Lactulose has been stopped now. Midodrine is 5 mg by mouth three times a day. Renvela is on hold at this time, and warfarin is also on hold because his INR is 3 today. ASSESSMENT AND PLAN: 1. End-stage renal disease. The patient was dialyzed according to his schedule yesterday. He tolerated the hemodialysis procedure well. Next hemodialysis will be tomorrow. 2. Chronic hypotension. Continue current dose of midodrine. Volume status is optimal. 3. Hepatic encephalopathy. The patient is clinically significantly better. Lactulose dose has been decreased. He continues to be on rifaximin. 4. Atrial fibrillation. His heart rate is controlled; however, metoprolol and midodrine are antagonizing each other. I would discuss with the primary team if we can switch this patient to digoxin or Cardizem if his blood pressure tolerates that. 5. Anemia and end-stage renal disease. Hemoglobin level is slightly subtherapeutic. He has been started on Aranesp with dialysis. MTDD
[2019-07-19] MEDS ORDERED: NS 500 ML IV ONE (21:30)
[2019-07-19] MEDS ORDERED: NOREPINEPHRINE 4 MG/4 ML AMP As Ordered ONE (23:02)
[2019-07-19] MEDS ORDERED: NOREPINEPHRINE BITARTRATE 16 MG in D5W 484 ML IV SCH ×2 (23:15→23:30)
[2019-07-19] MEDS ORDERED: NOREPINEPHRINE BITARTRATE 8 MG in D5W 500 ML IV SCH (23:30)
[2019-07-19 23:32] LABS: BASO # 0.1 10^3/uL (0.0-0.2); BASO % 0.9 % (0.0-1.0); EOS # 0.1 10^3/uL (0.0-0.5); EOS % 1.1 % (0.0-3.0); HEMATOCRIT 30.8 % (42.0-52.0); HEMOGLOBIN 9.9 g/dl (13.5-17.5); LYMPH # 1.2 10^3/uL (1.5-5.0); LYMPH % 16.6 % (24.0-44.0); MEAN CORPUSCULAR HEMOGLOBIN 34.5 pg (27.0-33.0); MEAN CORPUSCULAR HGB CONC 32.1 g/dl (32.0-36.5); MEAN CORPUSCULAR VOLUME 107.3 fl (80.0-96.0); MONO # 1.4 10^3/uL (0.0-0.8); MONO % 19.6 % (0.0-5.0); NEUTROPHILS # 4.3 10^3/uL (1.5-8.5); NEUTROPHILS % 61.5 % (36.0-66.0); PLATELET COUNT, AUTOMATED 102 10^3/uL (150-450); RED BLOOD COUNT 2.87 10^6/uL (4.30-6.10)
[2019-07-20] VITALS (91 sets, daily range): BP systolic 74–128; BP diastolic 47–81
[2019-07-20 00:59] LABS: ABG BASE EXCESS -0.6 (-2.0-2.0); ABG HCO3 25.7 MEQ/L (22.0-26.0); ABG O2 SATURATION 94.4 % (95.0-99.0); ABG PARTIAL PRESSURE CO2 49.8 mmHg (35.0-45.0); ABG PARTIAL PRESSURE O2 79.5 mmHg (75.0-100.0); ABG STANDARD HCO3 23.9 MEQ/L (22.0-26.0); ABG TOTAL CO2 27.3 MEQ/L (23.0-31.0); ABG pH (ARTERIAL) 7.331 UNITS (7.350-7.450)
[2019-07-20] MEDS: cefTRIAXone SOD 2 GM in D5W MINI-BAG PLUS 50 ML IV SCH (02:25)
--- NOTE | 2019-07-20 05:18 | IPNPDOC ---
Text Note Date of Service The patient was seen on 07/20/19. NOTE I was called urgently to the bedside at 21:00 as the patient was having hypote nsive episodes. Patient received a 500 mL bolus after initial systolic blood pressure of 78 with the use of Doppler was reported. Patient's blood pressure decreased after the bolus to a systolic blood pressure of 60 with the use of Doppler. On examination, the patient was alert and oriented 3 but was not complaining of any chest pain, lightheadedness, dizziness, or headache. Patient had a systolic murmur heard over the right second intercostal space with a regular rate and rhythm. Patient's lungs showed crackles in the bases but were clear otherwise. At this time, the decision was made to transfer the patient to the intensive care unit. Patient was started on peripheral norepinephrine. Dr. Ortiz, car wash supervisor/management trainee program stores, was consulted for central line placement. Dr. Ortiz came and saw the patient and started a central line. Patient is currently on norepinephrine to be titrated for mean arterial pressure greater than 65. VS,Ganeshbone, I+O VS, Fishbone, I+O Laboratory Tests 07/19/19 05:48 07/19/19 23:25 Vital Signs Date Time Temp Pulse Resp B/P (MAP) Pulse Ox O2 Delivery O2 Flow Rate FiO2 07/20/19 03:45 93 101/65 (77) 99 NIPPV (BIPAP/CPAP) 2.0 07/20/19 00:00 18 07/19/19 23:45 98.1 I&O- Last 24 Hours up to 6 AM 07/20/19 06:00 Intake Total 790 ml Output Total 0 ml Balance 790 ml JEN CUEVA DO Jul 20, 2019 05:18 SHYANNE CA MD Jul 23, 2019 04:09
[2019-07-20 05:23] LABS: HEMATOCRIT 32.1 % (42.0-52.0); HEMOGLOBIN 10.3 g/dl (13.5-17.5); MEAN CORPUSCULAR HEMOGLOBIN 34.2 pg (27.0-33.0); MEAN CORPUSCULAR HGB CONC 32.1 g/dl (32.0-36.5); MEAN CORPUSCULAR VOLUME 106.6 fl (80.0-96.0); PLATELET COUNT, AUTOMATED 115 10^3/uL (150-450); RED BLOOD COUNT 3.01 10^6/uL (4.30-6.10)
[2019-07-20 05:37] LABS: INR 3.6; PROTHROMBIN TIME 35.9 SECONDS (11.8-14.0)
[2019-07-20 05:47] LABS: ALBUMIN 2.7 GM/DL (3.2-5.2); CALCIUM LEVEL 8.3 MG/DL (8.8-10.2); CREATININE FOR GFR 6.12 MG/DL (0.70-1.30); GLOMERULAR FILTRATION RATE 11.7 (>42); TOTAL PROTEIN 6.5 GM/DL (6.4-8.2)
--- NOTE | 2019-07-20 06:14 | CR ---
DATE OF CONSULTATION: 07/20/2019 CRITICAL CARE CONSULTATION. CHIEF COMPLAINT: HYPOTENSION. HISTORY OF PRESENT ILLNESS: Mr. Lobo is a 74-year-old male with a past medical history of end-stage renal disease (ESRD) on dialysis, cirrhosis, atrial fibrillation on Coumadin, obstructive sleep apnea (ELISSA) on C-PAP, congestive heart failure (CHF) with a history of severe pulmonary hypertension and chronic right-sided heart failure who initially presented with complaints of altered mental status. The patient had recently been admitted in the end of June for hepatic encephalopathy and was discharged on 07/16/2019. He presented back from [facility] where he has been residing for rehab on 07/18/2019 with deterioration in his baseline mental status. The patient was noted to be obtunded and was not answering verbal questions. He was found to have increased ammonia level and was thought to have hepatic encephalopathy versus metabolic encephalopathy with his history of renal failure. He was given lactulose and rifaximin and did have some improvement in his blood pressure. The patient was also noted to have troponins likely secondary to demand ischemia. The patient does have issue of chronic hypotension and is on midodrine chronically for his home medication. He was dialyzed on 07/18/2019 and did have 2 liters of fluid removal but was hypotensive afterwards and required an additional 500 mL bolus. Overnight the patient was noted to have worsening hypotension and was given additional 500 mL bolus without improvement in his blood pressure. His blood pressure continued to deteriorate after the bolus and he was given additional 500 mL again with no effect. He was therefore brought to the intensive care unit (ICU) and started on peripheral Levophed for blood pressure support. The patient is drowsy and sleepy but is arousable to voice and answering questions appropriately. He does have a history of sleep apnea and he states he is on C-PAP at [facility] and has not had his C-PAP during his admission here yet. He currently denies any complaints and does not have any chest pain. Denies any increased shortness of breath or dyspnea. He denies any significant abdominal pain currently and is unclear if he has noticed any increased abdominal distension. PAST MEDICAL HISTORY/PAST SURGICAL HISTORY: 1. Cirrhosis with hepatic encephalopathy. 2. Chronic hypotension. 3. ESRD on hemodialysis (hd). 4. Diabetes. 5. Chronic atrial fibrillation on Coumadin. 6. Status post pacemaker for tachy-jorge syndrome. 6. Peripheral vascular disease. 7. Chronic pulmonary obstructive disease (COPD). 8. Right eye blindness. 9. Speech abnormality. 10. Anemia of chronic disease. 11. Morbid obesity. 12. ELISSA on C-PAP. 13. Severe pulmonary hypertension with chronic right heart failure. 14. Methicillin resistant Staphylococcus aureus (MRSA) bacteremia due to a Perma-Cath infection in May 2019. 15. History of arteriovenous (AV) fistula in right arm. 16. Status post transmetatarsal amputation of the left foot. 17. Ventral hernia repair. SOCIAL HISTORY: Former smoker, quit more than 10 years ago. Currently residing in [facility]. Previous history of tuberculosis (TB) exposure reportedly in the chart. FAMILY HISTORY: Siblings with a history of heart disease. HOME MEDICATIONS: - aspirin - calcium carbonate - vitamin D - gabapentin - lactulose - midodrine - rifaximin - sevelamer - incruse - Coumadin - hydroxyzine as needed - nitroglycerin as needed - Fleet's enema as needed - Tylenol as needed ALLERGIES: NO KNOWN DRUG ALLERGIES. PHYSICAL EXAMINATION: VITAL SIGNS: Temperature 96.1, pulse 70, respirations 18, blood pressure 72/49, O2 sat 86-98% on room air. In 550 liter, out 2 liters. GENERAL: The patient is an obese male is lying in the bed, is somewhat somnolent but is arousable to voice and answering questions appropriately. He is oriented times three. He does not appear to be in acute respiratory distress and is not using any accessory muscles for respiration. HEENT: Normocephalic, atraumatic. The patient has cloudiness in his right eye and chronic blindness. His left eye pupil is reactive. NECK; His neck is supple. Trachea is midline. There is positive jugular venous distention (JVD). The mucous membranes are moist. CARDIOVASCULAR: Irregularly irregular, normal S1-S2 with a faint murmur auscultated. Unable to palpate point of maximum impulse (PMI) due to body PULMONARY: There are crackles at the bases and diminished breath sounds at the bases bilaterally. ABDOMEN: Distended, nontender to palpation. There is some pitting edema and anasarca noted. EXTREMITIES: There is bilateral pitting edema in his lower extremities up to the thigh as well as some anasarca. He is status post transmetatarsal amputation on the left foot. LABORATORY DATA: WBC 7.0, hemoglobin 9.9, platelets 102. Chemistry: Sodium is 140, potassium 4.0, chloride is 103, bicarb is 30, BUN 29, creatinine 5.38, glucose is 73, lactic acid is 1.9, ammonia was 60, albumin is 2.6, INR is 3.09. Troponins have trended down to 0.18. BNP is 14,887. ABG: pH is 7.331, pCO2 of 49.8, pO2 of 79.5. IMAGING STUDIES: Abdominal ultrasound shows ascites in all four quadrants and no evidence acute cholecystitis. Chest x-ray shows cardiomegaly, atelectasis and pulmonary vascular congestion as well as likely small bilateral pleural effusions. There is a right internal jugular (IJ) triple lumen in place with the tip in superior vena cava (SVC). ASSESSMENT AND PLAN: Mr. Lobo is a 74-year-old male with a history of end-stage renal disease (ESRD) on hemodialysis, diabetes, atrial fibrillation on Coumadin, cirrhosis with a history of hepatic encephalopathy, obstructive sleep apnea (ELISSA) on C-PAP, history of congestive heart failure (CHF) with reported history of pulmonary hypertension and right heart failure who presented with complaints of altered mental status likely in the settings of hepatic or metabolic encephalopathy. The patient also has a history of chronic hypotension and is on midodrine as an outpatient and he did have issues during this admission with fluid removal during dialysis due to his hypotension. Overnight the patient was noted to have worsening hypotension despite fluid boluses and was started on peripheral Levophed. On exam the patient appears to be significantly fluid overloaded with anasarca and ascites with a significantly elevated jugular venous distention (JVD) and a very dilated right internal jugular (IJ) on exam. His chest x-ray also shows evidence of pulmonary edema as well as likely small pleural effusions bilaterally. The patient's hypotension may be in the setting of sepsis. He does not have significant leukocytosis but he is hypothermic and given his chronic renal disease he may not mount an appropriate response with a leukocytosis. He does have ascites and spontaneous bacterial peritonitis (SBP) is possible, particularly given his altered mental status as well. Hypotension with decompensated cirrhosis and volume overload in the setting of cirrhosis and renal failure. - Would start antibiotics with cefotaxime; however it is an actual shortage and so will do ceftriaxone instead 2 grams every 24-hour for SBP. - Would get diagnostic and therapeutic paracentesis given the significant ascites noted on exam and to evaluate for SBP. Would give albumin with his paracentesis. - will follow-up repeat INR later today for paracentesis - Will continue with Levophed via the right IJ triple lumen which was placed to maintain a mean arterial pressure (MAP) 60-65. Given his chronic cirrhosis and [id number], he does not require a higher target for his blood pressures. The patient does need diuresis which will likely help if he does have significant history of pulmonary hypertension and right ventricular (RV) fluid overload, fluid removal would actually improve his left ventricle (LV) hemodynamic state and his cardiac output and thus his blood pressure - Would discuss with renal about hemodialysis and attempting more fluid removal with the addition of vasopressor support as tolerated today History of hepatic encephalopathy, metabolic encephalopathy. - Continue with rifaximin and lactulose and continue to monitor his mental status. He does also have a history of sleep apnea and does have some mild CO2 retention likely secondary to obesity hypoventilation syndrome (OHS) and obstructive sleep apnea (ELISSA). - Will start the patient on his home C-PAP with the settings of 10 cm of water which was on his last sleep titration study. Suspect some of his drowsiness and sleepiness will also improve with treatment of his sleep apnea. Atrial fibrillation on Coumadin. - The patient was on metoprolol but he does have a history of chronic hypotension and was also on midodrine. Would therefore discontinue the metoprolol and consider other medications for rate control such as amiodarone or digoxin potentially given his hypotension. - The patient was also on Coumadin his INR has been trending up. Will hold his Coumadin and will give vitamin K to correct his INR for procedures. He may require FFP but it would contribute to fluid overload. - will follow-up INR. can start heparin gtt if INR is subtherapeutic. Deep venous thrombosis (DVT) prophylaxis with heparin. CODE STATUS: FULL CODE. Total critical care time spent not including procedures approximately 1 hour and 30 minutes. MTDD
[2019-07-20] MEDS: SLF 3 ML SYR IV SCH (06:30)
[2019-07-20] MEDS: LACTULOSE 20 GM/30 ML SYRUP UD PO SCH ×4 (06:30→12:10)
[2019-07-20] MEDS: VITAMIN D 1,000 INTERNATIONAL UNITS TABLET PO SCH ×2 (06:31→09:15)
[2019-07-20] MEDS ORDERED: PHYTONADIONE 10MG/ML INJECTION (J3430) SC ONE ×2 (08:00→14:15)
[2019-07-20] MEDS: TIOTROPIUM INHALER/CAPSULE (SPIRIVA) INH SCH (08:08)
--- NOTE | 2019-07-20 08:52 | RO ---
DATE OF PROCEDURE: 07/20/2019 PROCEDURE: Internal jugular central line. INDICATION: Vasopressor administration. PREPROCEDURE DIAGNOSIS: Shock. POSTPROCEDURE DIAGNOSIS: Shock. ATTENDING PHYSICIAN: Dr. Ortiz CONSENT: Consent was obtained from the patient prior to the procedure. Indication, risks and benefits were explained at length. PROCEDURE SUMMARY: A central line insertion practice form was completed by independent magnetic observer. A time out was performed. A full sterile technique was maintained throughout the procedure, including surgical cap, mask, protective eye wear, full gown and sterile gloves. The right neck region was prepped using chlorhexidine scrub and draped in sterile fashion using a full drape and the sterile probe cover employed. The right internal jugular (IJ) was identified using ultrasound. Anesthesia was achieved over the vein using 1% lidocaine. Using real time out of plane guidance, the introducer needle was inserted into the internal jugular vein under direct ultrasound visualization. Venous blood was drawn. The syringe was removed and a guidewire was advanced into the introducer needle. The introducer needle was removed over the guidewire and the guidewire was visualized in the IJ by ultrasound. A small incision was made at skin surface with a scalpel and a dilator was exchanged over the guidewire. After appropriate dilation was obtained, the dilator was exchanged over the wire for a triple lumen central venous catheter. The wire was removed and the catheter was sutured in place at 18 cm. A sterile chlorhexidine impregnated dressing was placed over the catheter insertion site. The patient tolerated the procedure well without any hemodynamic compromise. At time of procedure completion, all ports aspirated and flushed properly. A postprocedure chest x-ray showed the right IJ in satisfactory position. Estimated blood loss was 3 mL. MTDD
[2019-07-20] MEDS: DOCUSATE SODIUM 100 MG CAP PO SCH ×2 (09:00→21:00)
[2019-07-20] MEDS: MIRALAX *UNIT DOSE* 17GM PACKET PO SCH (09:00)
[2019-07-20] MEDS: OYSTER SHELL CALCIUM 500 MG TAB PO SCH (09:14)
[2019-07-20] MEDS: MIDODRINE 5 MG TAB PO SCH ×3 (09:15→17:00)
[2019-07-20] MEDS: ASPIRIN 81 MG CHEW TABLET PO SCH (09:15)
--- NOTE | 2019-07-20 09:16 | REP ---
Portable chest x-ray: Single view. History: Status post line placement. Comparison study: July 18, 2019. Findings: A right IJ central venous catheter is noted in place on the current radiograph with its tip in the expected location of the superior vena cava. There is no evidence of pneumothorax. Moderate to marked cardiomegaly persists. There is linear opacity in the perihilar regions bilaterally consistent with plate-like atelectasis. Pulmonary vasculature is cephalized. No gerhard pulmonary edema or pleural effusion seen. Electronically Signed by Wing Bowman MD 07/20/2019 09:08 A
[2019-07-20] MEDS: rifAXIMin 550 MG TAB (XIFAXAN) PO SCH ×2 (09:17→21:39)
[2019-07-20] MEDS: GABAPENTIN 100 MG CAP PO SCH (09:17)
[2019-07-20] MEDS: CYANOCOBALAMIN 500 MCG TAB PO SCH (09:20)
--- NOTE | 2019-07-20 10:04 | IPN ---
DATE: 07/20/2019 Irwin was transferred to the intensive care unit (ICU) last night because of hypotension, and received some boluses of fluid, ended up on pressors. Central line was placed. Mental status is about the same as yesterday. PHYSICAL EXAM: 103/66, pulse 98, 94% oxygen saturation. Elderly, lying in bed. Answers questions. Lungs: Decreased breath sounds. Heart: Regular rate and rhythm. Abdomen: Soft, obese, nontender. Trace 1+ peripheral edema. LABS: White count 7, hemoglobin 10.3, platelets 115. Sodium 141, potassium 4, creatinine 6, ammonia 49. IMPRESSION: 1. Hypotension in a patient with history of chronic hypotension on midodrine therapy as an outpatient. He is currently on intravenous (IV) fluids and peripheral Levophed. His volume status will need to be managed through dialysis. He is due for dialysis today. 2. Encephalopathy, probably from elevated ammonia level. It is possible he has spontaneous bacterial peritonitis. Get an ultrasound of his abdomen, and if there is significant ascites, will ask for a paracentesis. Currently, on ceftriaxone. 3. Obstructive sleep apnea (ELISSA). Continue his continuous positive airway pressure (CPAP). 4. Atrial fibrillation. His metoprolol is on hold for the hypotension. INR is up to 3.6. He does not have any active bleeding, so I do not think this needs to be reversed. 5. End-stage renal disease. Dialysis per nephrology.
[2019-07-20] MEDS ORDERED: SODIUM CHLORIDE 0.9% INJ 10 ML SYR IV PRN (12:15)
[2019-07-20] MEDS ORDERED: HEPARIN 1,000 UNITS/ML 10ML VIAL (FOR RADIOLOGY& DIALYSIS ONLY)(J1644-10) IV ONE (13:00)
[2019-07-20] MEDS: NOREPINEPHRINE BITARTRATE 16 MG in D5W 484 ML IV SCH (13:10)
[2019-07-20] MEDS: SODIUM CHLORIDE 0.9% INJ 10 ML SYR IV SCH ×2 (13:21→21:41)
[2019-07-20 13:51] LABS: INR 3.41; PROTHROMBIN TIME 34.4 SECONDS (11.8-14.0)
[2019-07-20] MEDS: EMLA CREAM 5GM (LIDOCAINE/PRILOCAINE) TOP SCH (17:55)
--- NOTE | 2019-07-20 22:31 | IPN ---
DATE: 07/20/2019 SUBJECTIVE The patient was seen and examined at the bedside today morning in the ICU. Last 24-hour events were noted. The patient became hypotensive overnight. Initially he was given IV fluid boluses, however, despite fluid boluses when he was hypotensive. Pulmonary critical care team consult was requested. The patient was transferred to ICU. He got her right IJ triple lumen catheter placed and he was placed on Levophed infusion. He was also started on IV antibiotics to cover for possible septic shock. The patient is awake and alert at this time. He is not intubated and today is his regular day of dialysis. OBJECTIVE Vital signs: Temperature is 97.9 degrees Fahrenheit, blood pressure 94/53, pulse is 106, respiratory rate of 18, saturating 99% on nasal cannula at 2 liters. Intake and output: There is no urine output recorded. Weight in the bed scale is 136.8 kg. PHYSICAL EXAMINATION General: The patient is awake, alert, oriented times two, laying in bed. Head and neck exam: The patient has right eye blindness. Mucous membranes are moist. Neck is supple. He has a right IJ triple lumen catheter. Cardiovascular: S1, S2, regular rate. Irregular rate, tachycardia and 2+ edema of the bilateral lower extremities. Respiratory: Mildly decreased breath sounds at the bases with mild expiratory rhonchi at the bases. Abdomen: Obese, positive bowel sounds. Positive abdominal wall edema and moderate amount of ascites is noted. There is tenderness to deep palpation. Musculoskeletal: He has left transmetatarsal amputation. He has 2+ edema of the bilateral lower extremities. [employer]: The patient is oriented times two. He is comfortable and follows commands and moves extremities. LAB REVIEW: CBC showed WBC 7, hemoglobin 10.3, platelets of 115, INR is 3.4. ABG done last night showed a pH of 7.3, pCO2 49, pO2 479, bicarb 25, O2 sat 94%. BMP done today morning showed sodium 141, potassium 4, chloride 102, bicarb 28, BUN 31, creatinine 6.1, lactic acid is 1.9, ammonia level 49, albumin is 2.7. Microbiology: Initial blood cultures are negative and repeat blood cultures were drawn yesterday which are still pending. IMAGING STUDIES A chest x-ray was done today which showed pulmonary vascular congestion and right IJ central venous catheter. CURRENT INPATIENT MEDICATIONS Patient's medications were all reviewed by me. He was started on ceftriaxone 2 grams IV every 24. He is on Levophed at four mcg. He was also given normal saline bolus 500 mL IV. Metoprolol has been stopped. He continues to be on midodrine 5 mg by mouth three times a day. No other change in the medications today as compared with yesterday. ASSESSMENT/PLAN 1. Septic shock. The patient is currently getting Levophed via the central line. He is also on IV ceftriaxone. Cultures are negative so far. Since the patient recently had gram positive infection and bacteremia I am going to add vancomycin as well. The patient also has ascites. He needs diagnostic ascites tap to make sure he has not developed spontaneous bacterial peritonitis. 2. End-stage renal disease. Today is patient's regular day of dialysis. He is on Levophed. I will try to do regular bedside hemodialysis and if we are not able to do the regular dialysis with the pressors then patient might need a central line to start him on continuous venovenous hemodiafiltration (CVVHDF). 3. Hepatic encephalopathy. The patient is getting rifaximin and lactulose. Ammonia level is improving. 4. Atrial fibrillation. Heart rate is controlled. Metoprolol was stopped because of hypotension. Anticoagulation is on hold because of supratherapeutic INR. 5. Anemia in end-stage renal disease. Continue current dose of Aranesp 200 mcg IV with dialysis. 6. COPD and obstructive sleep apnea. Continue the nebulizations and he can get C-PAP as needed while he is in the ICU. Total critical care time spent in the management of this patient today morning in the ICU was 45 minutes excluding all the procedures.
[2019-07-21] VITALS (60 sets, daily range): BP systolic 81–134; BP diastolic 46–91
[2019-07-21] MEDS: cefTRIAXone SOD 2 GM in D5W MINI-BAG PLUS 50 ML IV SCH (00:39)
[2019-07-21] MEDS: LACTULOSE 20 GM/30 ML SYRUP UD PO SCH ×4 (06:00→16:57)
[2019-07-21] MEDS: SODIUM CHLORIDE 0.9% INJ 10 ML SYR IV SCH ×3 (06:00→22:00)
[2019-07-21 06:07] LABS: HEMATOCRIT 31.2 % (42.0-52.0); MEAN CORPUSCULAR HGB CONC 32.1 g/dl (32.0-36.5); MEAN CORPUSCULAR VOLUME 106.1 fl (80.0-96.0); PLATELET COUNT, AUTOMATED 105 10^3/uL (150-450); RED BLOOD COUNT 2.94 10^6/uL (4.30-6.10); WHITE BLOOD COUNT 7.8 10^3/uL (4.0-10.0)
[2019-07-21 06:16] LABS: INR 2.11; PROTHROMBIN TIME 23.4 SECONDS (11.8-14.0)
[2019-07-21 06:37] LABS: ALBUMIN 2.7 GM/DL (3.2-5.2); CALCIUM LEVEL 8.3 MG/DL (8.8-10.2); CREATININE FOR GFR 5.43 MG/DL (0.70-1.30); GLOMERULAR FILTRATION RATE 13.4 (>42); POTASSIUM SERUM 3.8 MEQ/L (3.5-5.1); TOTAL PROTEIN 6.3 GM/DL (6.4-8.2)
--- NOTE | 2019-07-21 08:51 | PHACANCOPD ---
PHARMACY VANCOMYCIN DOSING Pt Demographics Demographics Patient Age:74 , Weight:135.100 , Gender: male Adjusted Body Weight Date: 07/21/19, Adjusted Body Weight: Kg Vancomycin Vancomycin Target Ranges: 15-20 mcg/ml Vancomycin Load Y/N: Yes Load Dose Date Time Vancomycin Load Dose: 2 GM Date:07/21/19 Time: 0900 Vancomycin Dose Date: 07/21/19. Current Vancomycin Dose: Intermittent Dosing?: Yes Labs Micro Microbiology 07/19/19 Blood Culture - Preliminary, Resulted No growth after 24 hours . All specim... 07/19/19 Blood Culture - Preliminary, Resulted No growth after 24 hours . All specim... 07/18/19 Blood Culture - Preliminary, Resulted No Growth after 48 hours. All Specime... 07/18/19 Blood Culture - Preliminary, Resulted No Growth after 72 hours. All specime... Creatinine Clearance Date:07/21/19. Creatinine Clearance: . Assessment and Plan Maintaining Current Dose?: Yes Reason for dose change: No Dose Change Pharmacist Note Pharmacist Note Date: 07/21/19. Pharmacist note: Pharmacy consulted for Vancomycin dosing for empiric treatment of sepsis and history of staph infection. We'll aim for a goal trough of 15-20 mcg/ml. The patient has a history of Vanco here at [facility]. His HD schedule is thursday, thursday, thursday. We'll load him with 2 grams today and check a random level tomorrow morning prior to HD session. We'll dose accordingly from there. Pharmacy will continue to monitor and make adjustments as needed. [facility] Jul 21, 2019 08:51
[2019-07-21] MEDS: rifAXIMin 550 MG TAB (XIFAXAN) PO SCH ×2 (08:57→21:33)
[2019-07-21] MEDS: CYANOCOBALAMIN 500 MCG TAB PO SCH (08:57)
[2019-07-21] MEDS: ASPIRIN 81 MG CHEW TABLET PO SCH (08:57)
[2019-07-21] MEDS: DOCUSATE SODIUM 100 MG CAP PO SCH ×2 (08:57→20:27)
[2019-07-21] MEDS: MIDODRINE 5 MG TAB PO SCH ×3 (08:57→16:59)
[2019-07-21] MEDS: OYSTER SHELL CALCIUM 500 MG TAB PO SCH (08:57)
[2019-07-21] MEDS: GABAPENTIN 100 MG CAP PO SCH (08:57)
[2019-07-21] MEDS: VITAMIN D 1,000 INTERNATIONAL UNITS TABLET PO SCH (08:57)
[2019-07-21] MEDS: MIRALAX *UNIT DOSE* 17GM PACKET PO SCH (08:57)
[2019-07-21] MEDS ORDERED: VANCOMYCIN HCL 1,000 MG, VIAL MATE ADAPTER 1 EACH in D5W 250 ML IV ONE ×2 (09:00→10:00)
[2019-07-21] MEDS: TIOTROPIUM INHALER/CAPSULE (SPIRIVA) INH SCH (09:08)
[2019-07-21] MEDS ORDERED: DIGOXIN INJ 0.5 MG/2 ML AMP (J1160) IV ONE ×3 (10:00→22:45)
--- NOTE | 2019-07-21 11:42 | CCN ---
DATE: 07/21/2019 CRITICAL CARE PROGRESS NOTE: The patient was seen and examined this morning during bedside rounds. Yesterday the patient was able to tolerate a session of hemodialysis but was only able to have 1 liter of fluid removal, and so he is still not significantly net negative in terms of his fluid balance. He has continued to require Levophed for vasopressor support and this morning is currently on 8 mcg per minute. The patient has also been noted to be more tachycardic overnight with his history of atrial fibrillation with heart rates in the 110s. He does appear mentally to be more at his baseline mental status and is awake and alert and conversant appropriately. He did use his home continuous positive airway pressure (CPAP) setting overnight for his sleep apnea. This morning the patient denies any fever. Has not had any chest pain. He denies any increased shortness of breath but he does have some increased cough he states. He denies any significant abdominal pain. Although, he does report some nausea has not had any vomiting. PHYSICAL EXAMINATION: Temperature 98.1, pulse 112, blood pressure 103/63, oxygen saturation 94% on room air. Ins 857 mL, out 1 liter. General: The patient is an obese male who is sitting in the bed, is awake and alert and answering questions appropriately and oriented times three. HEENT: Normocephalic, atraumatic. The patient has cloudiness and blindness in his right eye which is chronic. His left pupil is reactive. He has moist mucous membranes. Neck is supple. Trachea is midline. There is positive jugular venous distention (JVD). Cardiovascular: Irregularly irregular, tachycardic with normal S1-S2 with a murmur. Pulmonary: There are crackles bilaterally and diminished breath sounds at the bases. Abdomen is distended, nontender to palpation with pitting edema and anasarca. Extremities: There is continued +2-3 pitting edema in his bilateral lower extremities up to his thigh. 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 LABORATORY DATA: WBC 7.8, hemoglobin 10.0, platelets 105. Chemistry: Sodium is 138, potassium 3.8, chloride is 101, bicarbonate 30, BUN 24, creatinine is 5.43, glucose is 161. Ammonia level 49. INR this morning trended down to 2.11. ASSESSMENT AND PLAN: Mr. Lobo is a 74-year-old male with history of end-stage renal disease on hemodialysis, diabetes, atrial fibrillation on anticoagulation, cirrhosis with a history of hepatic encephalopathy, obstructive sleep apnea (ELISSA) on CPAP, congestive heart failure (CHF) with history of pulmonary hypertension and right heart failure who presented initially with complaints of altered mental status likely in the setting of hepatic or metabolic encephalopathy. The patient also has a history MRSA bacteremia during one of his recent admissions. He does chronically have hypotension and is on midodrine as an outpatient. During this admission, the patient was noted to have worsening hypotension requiring Levophed for vasopressor support. The patient with possible sepsis or septic shock likely in the setting of systolic blood pressure (SBP) given his significant ascites as well as with altered mental status on admission. Hypotension with decompensated cirrhosis and CHF with volume overload in the setting of ESRD also, possible septic shock secondary to SBP, the patient also complaining of increased cough and his x-ray while appears to be mostly consistent with fluid overload with pulmonary vascular congestion as well as small bilateral pleural effusions there may be an underlying infiltrate or opacity suggesting pneumonia. - Will continue with ceftriaxone as well as vancomycin given his history of MRSA bacteremia during a recent admission. - the patient is ordered for a diagnostic and therapeutic paracentesis; however, he was supratherapeutic on his INR and so that was on hold until later today. The patient would need albumin if he is having large volume paracentesis. - The patient may require fresh frozen plasma (FFP) for his procedure, although would avoid if possible as he is already significantly fluid overloaded. - The patient has a right internal jugular (IJ) triple lumen in place for vasopressor support and he is on Levophed currently. The patient does have evidence of fluid overload as well, and with his history of pulmonary hypertension and right heart failure with diuresis the patient will actually have improved hemodynamics in his left ventricle and likely increased cardiac output and blood pressure with more diuresis if possible. - The patient is dependent on hemodialysis for fluid removal. He did tolerate regular hemodynamic (HD) yesterday, but given his hypotension and need for vasopressor he may require continuous veno-venous hemodynamic (CVVHD) for more fluid removal. Will followup with renal. History of hepatic encephalopathy and metabolic encephalopathy. - The patient's mental status appears to be at baseline. Will continue rifaximin and lactulose for hepatic encephalopathy. History of COPD and ELISSA on CPAP. - Will continue the patient with his home CPAP settings and continue to monitor his oxygenation during the day with nasal cannula oxygen supplementation as needed - Can continue with nebulizer treatments as needed. Atrial fibrillation on Coumadin. - The patient was on metoprolol which was held given his hypotension and vasopressor needs. He does also have a history of chronic hypotension and has been on midodrine and so would likely need other medications for rate control such as amiodarone or digoxin. Cardiology will be consulted as he has been more tachycardic with his atrial fibrillation overnight with heart rate into the 110s. - The patient was on Coumadin as an outpatient which has been on hold given his supratherapeutic INR. He was given vitamin K for correction for his paracentesis. - Can start heparin drip when INR is subtherapeutic, will continue to monitor. Deep venous thrombosis (DVT) prophylaxis with heparin. CODE STATUS: FULL CODE. Total critical care time spent not including procedures approximately 40 minutes.
[2019-07-21] MEDS: **VANCO AFTER HD** MISC XX SCH (16:00)
[2019-07-21 16:14] LABS: APPEARANCE, BODY FLUID CLOUDY (CLEAR); ASCITES FL COLOR ORANGE (COLORLESS); SOURCE, BODY FLUID ASCITES
[2019-07-21 16:45] LABS: SOURCE, BODY FLUID ALBUMIN ASCITES; SOURCE, BODY FLUID GLUCOSE ASCITES; SOURCE, BODY FLUID TOT PROTEIN ASCITES; TOTAL PROTEIN, BODY FLUID 2.8 G/DL (NOT ESTABLISHED)
[2019-07-21] MEDS: NOREPINEPHRINE BITARTRATE 16 MG in D5W 484 ML IV SCH (16:59)
--- NOTE | 2019-07-21 18:10 | IPN ---
DATE: 07/21/2019 Irwin is seen in the intensive care unit (ICU). He is going down for a paracentesis today. He is worried about spontaneous bacterial peritonitis. He is in atrial fibrillation, which he has chronically, but he has rapid ventricular response, and his therapy is limited by hypothyroidism, systolic blood pressures in the 90s on norepinephrine for pressure support. His mental status is at baseline today. PHYSICAL EXAMINATION: Blood pressure 90/60, pulse 110-120, afebrile. GENERAL APPEARANCE: He is alert, conversant, listening to sports on television. Answers all questions appropriately. No jugular venous distention (JVD). LUNGS: Decreased breath sounds. HEART: Rapid, irregular rate and rhythm. ABDOMEN: Ascites. Peripheral edema 1+. LABORATORY DATA: White count 7, hemoglobin 10, platelets 105. Sodium 138, potassium 3.8, BUN 24, creatinine 5.3, glucose 162. INR is 2.1. IMPRESSION: 1. Hypotension. Patient with chronic hypotension, on midodrine. Continue Levophed, intravenous (IV) fluids. This hypotension limits therapy for his atrial fibrillation. 2. Atrial fibrillation with rapid ventricular response. I will give him a single dose of IV digoxin. He has seen the [facility] in the past. We will discuss the case with Dr. Russell and see the patient in consultation. Anticoagulation is on hold for paracentesis. 3. Encephalopathy. Ammonia level is improved. Encephalopathy is better. Paracentesis is planned to rule out spontaneous bacterial peritonitis. 4. Ascites. Paracentesis pending. Continue ceftriaxone. 5. Obstructive sleep apnea (ELISSA). He is on continuous positive airway pressure (CPAP) for this. 6. End-stage renal disease. Per nephrology. Managing the atrial fibrillation is complicated by end-stage renal disease and his hypotension. I have ordered a single dose of digoxin. I am hesitant to give him amiodarone with end-stage liver and kidney disease.
--- NOTE | 2019-07-21 18:21 | REP ---
Ultrasound-guided paracentesis The procedure was performed under the direct supervision of Dr. Bowman. The risks and benefits of the procedure were explained to the patient and informed consent was obtained. The largest pocket of fluid was localized in the right flank using ultrasound guidance. The skin was prepped and draped in a sterile fashion. 1% lidocaine was used as a local anesthetic. An 8-Yakut multi side-hole catheter was inserted using trocar technique. 4250 ml of dark yellow fluid was withdrawn with a sample sent to the lab for analysis. The patient tolerated the procedure well and there were no immediate complications. After the appropriate amount of monitored convalescence the patient was discharged from the department. Electronically Signed by JONATHAN Ramirez 07/21/2019 05:20 P Electronically Signed by Wing Bowman MD 07/21/2019 06:12 P
--- NOTE | 2019-07-21 18:51 | CR ---
DATE OF CONSULTATION: 07/21/2019 REFERRING PHYSICIAN: Dr. Brodie Hoff REASON FOR CONSULTATION: Atrial fibrillation with rapid ventricular response. HISTORY OF PRESENT ILLNESS: Mr. Irwin Lobo is a 74-year-old man with multiple medical problems. He has end-stage renal disease - on hemodialysis Mondays, Wednesdays, Fridays. He is a resident of [facility]. He was most recently hospitalized to [facility] June 2019 with hepatic encephalopathy. Following dialysis 07/18/2019, he was noted to be very obtunded. His ammonia level was elevated. He was admitted to the hospitalist service. Patient is quite obtunded and unable to provide any history at this time. History is obtained from prior office medical records as well as the patient's current inpatient hospital records. The patient has cirrhosis of the liver, hepatic encephalopathy, chronic hypertension, type 2 diabetes with peripheral neuropathy, chronic atrial fibrillation, status post permanent pacemaker for tachycardia-bradycardia syndrome, peripheral arterial disease, chronic obstructive pulmonary disease (COPD), blindness in the right eye, anemia due to end-stage renal disease, morbid obesity, obstructive sleep apnea, severe pulmonary hypertension with right heart failure and history of methicillin-resistant Staphylococcus aureus (MRSA) bacteremia and septic shock due to a perma-cath infection May 2019. Status post metatarsal site amputation on the left side. Status post ventral hernia repair. Status post right upper arm arteriovenous (AV) fistula placement. He has a history of systemic hypertension and hypertensive heart disease and chronic diastolic heart failure. He is known to have an ascending thoracic aortic aneurysm. Obstructive sleep apnea. He does not use continuous positive airway pressure (CPAP). Echocardiogram Doppler 03/03/2019 showed left ventricular ejection fraction (LVEF) 70%, mild concentric left ventricular hypertrophy (LVH) with normal (LV) wall motion and wall thickening. No regional LV wall motion abnormalities. LV diastolic function could not be adequately assessed in the setting of atrial fibrillation. Moderate left atrial dilatation. Severe focal thickening and focal calcific deposits of a 3-cusp aortic valve. Moderate reduction in aortic cusp mobility. Mild aortic stenosis with very mild aortic regurgitation. Severe mitral annular calcification with mild mitral regurgitation. No mitral stenosis. Mild dilatation of the aortic root at the level of the sinus of Valsalva. Suggestive of estimated right ventricular (RV) systolic pressure and pulmonary artery (PA) systolic pressure to be moderately elevated. At least mild RV dilatation. Normal RV systolic function. At least mild right atrial dilatation. Severe tricuspid regurgitation with structurally normal appearing tricuspid leaflets. Suggestive of central venous pressure (CVP) of at least 20 mmHg. Inferior vena cava plethora. Systolic flow reversal in hepatic veins consistent with severe tricuspid regurgitation. Presence of ventricular pacemaker lead in the right ventricle coursing towards the right ventricle apex. Tiny pericardial effusion. Pacemaker single-chamber was implanted 04/2006 ([facility]). Cardiac catheterization 08/2006 showed minimal coronary artery disease, LVEF 70%. Cardiac catheterization 04/2012 showed no significant coronary disease. Normal left ventricular end-diastolic pressure (LVEDP). Patient is known to have hypercholesterolemia. FAMILY HISTORY: Family history of coronary artery disease with sister having undergone percutaneous coronary intervention at age 62. SOCIAL HISTORY: Resident of [facility]. . Disabled since 2002. Prior smoking history for which he quit in 1974. No alcohol. REVIEW OF SYSTEMS: Review of systems cannot be obtained from the patient as he is currently obtunded. PHYSICAL EXAMINATION: Prominently obese black man who appears his chronologic age, who is obtunded. Body mass index (BMI) 38.2, height 74 inches, weight 135.1 kg, pulse 114 (irregularly irregular, atrial fibrillation), temperature 100.2, respiratory rate 20, blood pressure 121/65, oxygen (O2) saturation 95% on room air. Opacification of the right eye. No conjunctival pallor or scleral icterus or xanthomas. Edentulous upper with multiple missing lower teeth. Oral mucosa moist without pallor or cyanosis. Trachea midline. Thyroid not palpable. Jugular venous pulsations were at 5 cm. Respiratory expansion effort was normal. No crackles or wheezes. No palpable apex beat. Pacemaker incision left pectoral region. First and second heart sounds were diminished and variable in intensity. No S3. Grade 2 systolic ejection murmur, maximal over the right second interspace. Carotids normal in volume and contour and without bruits. No palpable abdominal aorta. Pedal pulses normal. No pitting edema in the legs. Status post distal left foot amputation. No clubbing, nail bed cyanosis, or splinter hemorrhages. Right forearm fistula. Bowel sounds positive. Abdomen was soft and nontender with normal bowel sounds. Liver span difficult to assess due to abdominal obesity. Stool for occult blood not presently indicated. Gait could not be tested as the patient is currently obtunded. No kyphosis or scoliosis. Unable to assess gross motor strength or tone because the patient is currently obtunded. No fasciculations or tremors. Chronic skin changes both legs. Patient was obtunded, and, therefore, not oriented to person, place, or time. INVESTIGATIONS: Laboratory work 07/21/2019 was reviewed: WBC 7.8, hemoglobin 10.0, hematocrit 32.2, platelets 105, PT/INR 2.11. Sodium 138, potassium 3.8, chloride 101, CO2 of 30, creatinine 5.43, estimated GFR 13.4, glucose 161, total bilirubin 1.0, AST 21, ALT 19, alkaline phosphatase 128 (elevated), total protein 6.3, albumin 2.7. Laboratory work 07/18/2019 shows TSH 2.700. Electrocardiogram 07/18/2019 shows atrial fibrillation, heart rate 67 beats per minute (bpm), low limb lead voltages, nonspecific ST-T abnormalities. Portable chest x-ray 07/20/2019 shows presence of a right internal jugular venous catheter in the expected location with tip in the superior vena cava. No pneumothorax. Report did show moderate to marked cardiomegaly. Linear opacity in the perihilar regions bilaterally consistent with plate-like atelectasis. Pulmonary vasculature cephalized. No gerhard pulmonary edema or pleural effusion. ALLERGIES: No known adverse drug reactions. MEDICATIONS PRIOR TO ADMISSION: - acetaminophen 650 mg per rectum every 4 hours as needed - acetaminophen 325 mg times two every 4 hours as needed - Ventolin HFA two puffs four times a day as needed - aspirin 81 mg daily - Dulcolax daily per rectum as needed - calcium carbonate 500 mg daily - vitamin D 1000 units by mouth daily - vitamin B12 500 mcg by mouth daily - gabapentin 100 mg by mouth daily - hydroxyzine 25 mg twice a day as needed - lactulose 30 mL by mouth twice a day - lidocaine/prilocaine 2.5%/2.5% cream topical to dialysis site one hour prior to dialysis. - metoprolol tartrate 25 mg twice a day - midodrine 5 mg Mondays, Wednesdays, Fridays and also on Sundays, Tuesdays, and Saturdays - nitroglycerin 0.4 mg sublingual as needed - rifaximin 550 mg by mouth twice a day - sevelamer carbonate 800 mg times two by mouth three times per week and 1600 mg four times per week Sundays, Tuesdays, , Saturdays - sodium phosphate, Fleet enema, per rectum daily as needed - Incruse Ellipta one puff daily - warfarin PATIENT'S CURRENT MEDICATIONS IN THE HOSPITAL as per EMR ASSESSMENT AND RECOMMENDATIONS: 1. Atrial fibrillation (chronic). Rapid ventricular response. This patient's rapid ventricular response has likely been precipitated by withdrawal of his chronic beta kajal therapy and current use of epinephrine. Unfortunately, options for control of ventricular rate are limited because of the patient requiring norepinephrine to improve his blood pressure and, therefore, use of beta blockers or non-dihydropyridine calcium channel blockers are presently at least relatively contraindicated. When I was talking with Dr. Hoff earlier today, he told me that the patient was on amiodarone, but I do not see that either as a medication that he was on as an outpatient or at the custodial, or here in the hospital. I do not know why anybody would want to use amiodarone in this patient with chronic atrial fibrillation, and I suspect that to be an inaccurate understanding of Dr. Hoff. I think the best at least short-term option for helping control this patient's rapid ventricular response will be use of digoxin, and I suggested beginning with digoxin 0.25 mg IV, which Dr. Hoff did order. Patient is maintained on warfarin as an outpatient. Currently he is therapeutic with a PT/INR today recorded of 2.11. Recommend continuation of warfarin. Once the patient's blood pressure improves, I recommend getting the patient back on his usual dose of beta kajal. 2. Systemic hypertension. Patient has had systemic hypertension in the past. Currently he has hypotension, which is treated chronically as an outpatient with midodrine and at the moment instead of midodrine, he is on norepinephrine, which is being managed by the other two specialists on the case (ICU medicine and nephrology). 3. Status post single-chamber pacemaker in situ. Stable. 4. Chronic diastolic heart failure. This is being managed by dialysis and previously prior to this admission on beta kajal. Patient appears compensated. 5. Hypertensive heart disease with congestive heart failure. As per diastolic heart failure and hypertension categories above. 6. Non-rheumatic aortic stenosis (mild). Patient has a grade 2 systolic ejection murmur over the right second interspace. Carotids were normal in volume and contour. Stable. 7. Mitral annular calcification, non-rheumatic mitral regurgitation. Mild on last assessment. Stable. MTDD
--- NOTE | 2019-07-21 22:32 | IPN ---
DATE: 07/21/2019 SUBJECTIVE: The patient was seen and examined at the bedside today morning in the ICU. The patient is still requiring Levophed at 8 mcg today morning to maintain his blood pressure. He was dialyzed yesterday with the Levophed infusion and only 1 liter of fluid was removed. The patient is pending paracentesis today. He is empirically being given IV antibiotics for possible SBP. I added vancomycin today for gram-positive coverage because he recently had staphylococcal infection and bacteremia. OBJECTIVE: Vital signs: Temperature is 97.8 degrees Fahrenheit, blood pressure 110/62, pulse is 124, respiratory of 22, saturating 92% on nasal cannula at 2 liters. Intake and output: There is no urine output recorded. Ultrafiltration during hemodialysis on 1 liter yesterday. Weight in the bed scale is 135.1kg. PHYSICAL EXAMINATION: General: The patient is awake, alert, oriented x3, laying in the bed. Head and neck exam: The patient has right eye blindness. Neck is supple. He has a right IJ triple lumen catheter. Cardiovascular: S1, S2. Heart rate is irregularly irregular. 2+ edema of the bilateral lower extremities. Respiratory: Mildly decreased breath sounds at the bases with mild expiratory rhonchi at the bases. Abdomen is obese, mildly tender to deep palpation. Positive abdominal wall edema and moderate amount of ascites noted. Musculoskeletal: Left transmetatarsal side amputation, 2+ edema of the lower extremities. COMPUTER OPERATIONS MANAGER: The patient has right eye blindness, otherwise no deficit. He has a stutter, but he follows commands and moves all extremities. Psychiatri: Normal mood and affect. LABORATORY REVIEW: Complete blood count (CBC) showed WBC of 7.8, hemoglobin is 10, platelets of 105, INR is 2.1. Basic metabolic panel (BMP) showed sodium 138, potassium 3.8, chloride 101, bicarbonate 30, BUN 24, creatinine is 5.4, calcium 8.3, total bilirubin is 1, albumin 2.7. Microbiology repeat blood cultures are negative so far. CURRENT INPATIENT MEDICATIONS: The patient's medications were all reviewed by myself. The patient continues to be on IV ceftriaxone. He continues to be on Levophed at 8 mcg. I have added vancomycin 1 gram IV today for gram-positive coverage. He has been started on digoxin 0.25 mg IV one dose today morning for atrial fibrillation. ASSESSMENT/PLAN: 1. Septic shock. The patient is still requiring Levophed at 8 mcg. He is currently on ceftriaxone for gram-negative coverage. The vancomycin has also been added. He is pending ascitic tap, which would be diagnostic and therapeutic and cultures will be sent 2. End-stage renal disease. The patient was dialyzed yesterday with Levophed. He tolerated the procedure and 1 liter of fluid was removed. 3. Hepatic encephalopathy. He is clinically better. He is currently on rifaximin and lactulose. He is much more awake and he was eating his breakfast in the morning when I saw him. 4. Atrial fibrillation with rapid ventricular rate. His beta blockers were stopped because of hypotension and chronic obstructive pulmonary disease (COPD). Heart rate is 110s to 120s. He was given a dose of digoxin IV and primary team is going to call cardiology on board. 5. Anemia and end-stage renal disease. Continue current dose of Aranesp. No need of blood transfusion at this time. 6. Cirrhosis and ascites. As mentioned above, the patient is going to have the ascitic tap done and he is being empirically covered for possible SBP. Total critical care time spent in the management of this patient today morning in the ICU was 40 minutes excluding all the procedures.
[2019-07-22] VITALS (42 sets, daily range): BP systolic 80–142; BP diastolic 43–84
[2019-07-22] MEDS: cefTRIAXone SOD 2 GM in D5W MINI-BAG PLUS 50 ML IV SCH (01:13)
[2019-07-22] MEDS: LACTULOSE 20 GM/30 ML SYRUP UD PO SCH ×4 (06:00→17:21)
[2019-07-22] MEDS: SODIUM CHLORIDE 0.9% INJ 10 ML SYR IV SCH ×2 (06:00→14:13)
[2019-07-22 06:13] LABS: HEMATOCRIT 29.8 % (42.0-52.0); HEMOGLOBIN 9.6 g/dl (13.5-17.5); MEAN CORPUSCULAR HGB CONC 32.2 g/dl (32.0-36.5); MEAN CORPUSCULAR VOLUME 105.7 fl (80.0-96.0); RED BLOOD COUNT 2.82 10^6/uL (4.30-6.10); WHITE BLOOD COUNT 7.6 10^3/uL (4.0-10.0)
[2019-07-22 06:18] LABS: INR 1.68; PROTHROMBIN TIME 19.5 SECONDS (11.8-14.0)
[2019-07-22 06:29] LABS: ALBUMIN 2.4 GM/DL (3.2-5.2); CALCIUM LEVEL 8.2 MG/DL (8.8-10.2); CREATININE FOR GFR 6.61 MG/DL (0.70-1.30); GLOMERULAR FILTRATION RATE 10.7 (>42); TOTAL PROTEIN 5.8 GM/DL (6.4-8.2); VANCOMYCIN RANDOM 21.8 UG/ML
[2019-07-22 06:48] LABS: PLATELET COUNT, AUTOMATED 90 10^3/uL (150-450)
[2019-07-22] MEDS: MIDODRINE 5 MG TAB PO SCH ×3 (07:56→16:34)
[2019-07-22] MEDS: MIRALAX *UNIT DOSE* 17GM PACKET PO SCH (09:00)
--- NOTE | 2019-07-22 09:14 | IPN ---
DATE: 07/22/2019 SUBJECTIVE: Baltazar is seen in intensive care unit (ICU). He is being weaned down off his Levophed. He was seen yesterday in consultation by Dr. Russell (apparently Dr. Russell misunderstood my discussion with him. He was consulted for atrial fibrillation and where I specifically indicated that the patient was not a candidate for amiodarone due to chronic renal and liver disease. At no point did I indicate that the patient was taking amiodarone). The patient's heart rate is under better control. Tachycardia is resolved. He has a pulse in the 80s to 100 range now. Systolic blood pressure is up around 100 still with some Levophed support. He had a paracentesis yesterday, does not look like spontaneous bacterial peritonitis with only 285 white cells. PHYSICAL EXAMINATION: VITAL SIGNS: 101/58, pulse 86, 97.3 GENERAL APPEARANCE: Lying in bed. Mental status at baseline. Decreased breath sounds bilaterally. HEART: Regular rate and rhythm. ABDOMEN: Obese. Nontender. No masses. EXTREMITIES: Trace to 1+ peripheral edema. LABORATORIES: CBC is stable. Hemoglobin is 9.6, potassium 4.0. IMPRESSION: 1. Septic shock. Blood cultures are negative to date. He is on intravenous ceftriaxone and vancomycin. Ascites fluid is negative as far as gram stain and culture. 2. Hepatic encephalopathy. On rifaximin and lactulose. Mental status back to baseline. 3. Atrial fibrillation with rapid ventricular response. Beta blockers were held due to hypotension. He is currently receiving intravenous digoxin. Heart rates are improved. As indicated yesterday, this patient is not a candidate for amiodarone due to end stage liver and renal disease (the discussion with Dr. Russell was that the night team was considering amiodarone, which I considered contraindicated). 4. Anemia, per nephrology. 5. Cirrhosis. Waiting for results of paracentesis.
[2019-07-22] MEDS: EMLA CREAM 5GM (LIDOCAINE/PRILOCAINE) TOP SCH (12:00)
[2019-07-22] MEDS: TIOTROPIUM INHALER/CAPSULE (SPIRIVA) INH SCH (12:17)
[2019-07-22] MEDS: ASPIRIN 81 MG CHEW TABLET PO SCH (12:45)
[2019-07-22] MEDS: rifAXIMin 550 MG TAB (XIFAXAN) PO SCH ×2 (12:45→21:58)
[2019-07-22] MEDS: GABAPENTIN 100 MG CAP PO SCH (12:45)
[2019-07-22] MEDS: CYANOCOBALAMIN 500 MCG TAB PO SCH (12:45)
[2019-07-22] MEDS: DOCUSATE SODIUM 100 MG CAP PO SCH ×2 (12:46→21:58)
[2019-07-22] MEDS: OYSTER SHELL CALCIUM 500 MG TAB PO SCH (12:46)
[2019-07-22] MEDS: VITAMIN D 1,000 INTERNATIONAL UNITS TABLET PO SCH (12:47)
[2019-07-22] MEDS: **VANCO AFTER HD** MISC XX SCH (16:00)
[2019-07-22] MEDS ORDERED: VANCOMYCIN HCL 750 MG, VIAL MATE ADAPTER 1 EACH in D5W 250 ML IV ONE (16:00)
[2019-07-22] MEDS: WARFARIN SOD 4 MG TAB PO SCH (17:21)
[2019-07-22] MEDS: DIGOXIN 0.25 MG TAB PO SCH (21:57)
[2019-07-23] VITALS: BP 110/74
[2019-07-23] MEDS: SODIUM CHLORIDE 0.9% INJ 10 ML SYR IV SCH ×4 (00:04→21:57)
[2019-07-23] MEDS: LACTULOSE 20 GM/30 ML SYRUP UD PO SCH ×5 (00:04→17:24)
[2019-07-23] MEDS: cefTRIAXone SOD 2 GM in D5W MINI-BAG PLUS 50 ML IV SCH (00:25)
[2019-07-23 04:00] VITALS: BP 110/60
[2019-07-23 05:41] LABS: HEMATOCRIT 32.4 % (42.0-52.0); HEMOGLOBIN 10.5 g/dl (13.5-17.5); MEAN CORPUSCULAR HEMOGLOBIN 34.3 pg (27.0-33.0); MEAN CORPUSCULAR HGB CONC 32.4 g/dl (32.0-36.5); MEAN CORPUSCULAR VOLUME 105.9 fl (80.0-96.0); RED BLOOD COUNT 3.06 10^6/uL (4.30-6.10); WHITE BLOOD COUNT 7.1 10^3/uL (4.0-10.0)
[2019-07-23 05:44] LABS: PLATELET COUNT, AUTOMATED 84 10^3/uL (150-450)
[2019-07-23 05:52] LABS: INR 1.48; PROTHROMBIN TIME 17.7 SECONDS (11.8-14.0)
[2019-07-23 06:04] LABS: ALBUMIN 2.6 GM/DL (3.2-5.2); BILIRUBIN,TOTAL 1.4 MG/DL (0.2-1.0); CALCIUM LEVEL 8.3 MG/DL (8.8-10.2); CREATININE FOR GFR 5.25 MG/DL (0.70-1.30); POTASSIUM SERUM 4.3 MEQ/L (3.5-5.1)
[2019-07-23] MEDS: TIOTROPIUM INHALER/CAPSULE (SPIRIVA) INH SCH (07:15)
--- NOTE | 2019-07-23 07:56 | IPN ---
DATE OF SERVICE: 07/22/2019 SUBJECTIVE: The patient was seen and examined at the bedside today morning in the intensive care unit (ICU) during hemodialysis procedure. He is tolerating the hemodialysis procedure well. He is still on Levophed at 1 mcg, which is being weaned down now. The patient is otherwise awake and alert. He also got the ascitic tap done yesterday; 4.2 liters of fluid was removed. OBJECTIVE: Vital Signs: Temperature is 98 degrees Fahrenheit, blood pressure 88/52, pulse is 79, respiratory rate of 18, saturating 99% on nasal cannula at 2 liters. Intake and output from ascitic tap done yesterday was 4.2 liters. Weight in the bed scale is 138.1 kg. PHYSICAL EXAMINATION: General: The patient is awake, alert, oriented times two, laying in bed, in no apparent distress, getting hemodialysis done. Head and Neck Exam: The patient has right eye blindness. Mucous membranes are moist. Neck is supple. She has a right internal jugular (IJ) triple lumen catheter. Cardiovascular: S1, S2, regular rate. 2+ edema of the bilateral lower extremities. Respiratory: Mildly decreased breath sounds at the bases with mild expiratory rhonchi. Abdomen is soft, mildly tender to deep palpation. There is significant improvement in the ascites now. Musculoskeletal: He has 2+ edema of the bilateral lower extremities. Left transmetatarsal amputation (TMA) was noted. Central Nervous System (ETCH OPERATOR SEMICONDUCTOR WAFERS): No focal deficit. He moves extremities. The patient has right eye blindness. LABORATORY REVIEW: CBC showed WBC 7.6, hemoglobin 9.6, platelets are 90. BMP showed sodium 139, potassium 4, chloride 103, bicarbonate 29, BUN 33, creatinine 6.6, albumin 2.4. MICROBIOLOGY: Gram stain of the body fluid showed many RBCs, moderate WBCs, no organism. Peritoneal fluid was cloudy. WBCs are 285. Polymorphonuclear were only 7.3%. CURRENT INPATIENT MEDICATIONS: The patient's medications were all reviewed by myself. He continues to been IV vancomycin and ceftriaxone. ASSESSMENT AND PLAN: 1. End-stage renal disease. The patient is being dialyzed at the bedside. He is tolerating the hemodialysis procedure. Ultrafiltration goal will be around 1.5 liters as tolerated by his blood pressure. 2. Septic shock. The patient got the ascitic tap done yesterday, but that was after a few days of antibiotics. It was cloudy but polymorphonuclear count is not diagnostic of spontaneous bacterial peritonitis. However, the patient is still requiring pressors. Continue to wean off Levophed. Continue the antibiotics at this time. 3. Atrial fibrillation with rapid ventricular rate. The patient was seen by cardiology. They recommended continuation of digoxin. The patient's anticoagulation needs to be resumed, and he would get a dose of warfarin 4 mg by mouth tonight. 4. Cirrhosis and ascites. The patient got the ascitic tap done yesterday; 4.2 liters of fluid was removed. Further optimization of fluid status will be done with dialysis. 5. Anemia in end-stage renal disease. Continue current dose of Aranesp. 6. Hepatic encephalopathy. It is clinically resolved now. He continues to be on lactulose and rifaximin.
[2019-07-23 08:00] VITALS: BP 106/64
[2019-07-23] MEDS: rifAXIMin 550 MG TAB (XIFAXAN) PO SCH ×2 (08:54→21:57)
[2019-07-23] MEDS: CYANOCOBALAMIN 500 MCG TAB PO SCH (08:54)
[2019-07-23] MEDS: ASPIRIN 81 MG CHEW TABLET PO SCH (08:54)
[2019-07-23] MEDS: VITAMIN D 1,000 INTERNATIONAL UNITS TABLET PO SCH (08:54)
[2019-07-23] MEDS: DOCUSATE SODIUM 100 MG CAP PO SCH ×2 (08:54→21:57)
[2019-07-23] MEDS: GABAPENTIN 100 MG CAP PO SCH (08:54)
[2019-07-23] MEDS: MIDODRINE 5 MG TAB PO SCH ×3 (08:54→16:29)
[2019-07-23] MEDS: OYSTER SHELL CALCIUM 500 MG TAB PO SCH (08:55)
[2019-07-23] MEDS: MIRALAX *UNIT DOSE* 17GM PACKET PO SCH (08:55)
[2019-07-23] MEDS ORDERED: VANCOMYCIN HCL 1,000 MG, VIAL MATE ADAPTER 1 EACH in D5W 250 ML IV SCH (09:00)
--- NOTE | 2019-07-23 09:36 | IPN ---
DATE: 07/23/2019 Irwin is seen in the progressive care unit (PCU). Feeling well, no change really in his status from yesterday. His paracentesis culture is still pending, though gram stain showed no organisms. PHYSICAL EXAMINATION: Vital signs: Stable. Mental status exam at baseline. Lungs: Clear. Heart: Regular rhythm. Abdomen: Soft, nontender. Trace peripheral edema. LABORATORY DATA: Potassium is 4.3, hemoglobin is 10.5, INR is 1.48. PLAN: Continue current treatment. He is getting dialyzed today. His mental status is back to baseline. His atrial fibrillation has come under control and he is being re-anticoagulated with his warfarin.
[2019-07-23 12:00] VITALS: BP 145/82
[2019-07-23 16:00] VITALS: BP 128/72
[2019-07-23] MEDS: **VANCO AFTER HD** MISC XX SCH (16:00)
[2019-07-23] MEDS: WARFARIN SOD 4 MG TAB PO SCH (16:30)
[2019-07-23 20:00] VITALS: BP 127/82
[2019-07-24] VITALS (7 sets, daily range): BP systolic 97–141; BP diastolic 53–75
[2019-07-24] MEDS: LACTULOSE 20 GM/30 ML SYRUP UD PO SCH ×5 (00:58→22:30)
[2019-07-24] MEDS: cefTRIAXone SOD 2 GM in D5W MINI-BAG PLUS 50 ML IV SCH (01:00)
[2019-07-24 05:53] LABS: HEMATOCRIT 30.2 % (42.0-52.0); HEMOGLOBIN 9.6 g/dl (13.5-17.5); MEAN CORPUSCULAR HEMOGLOBIN 33.8 pg (27.0-33.0); MEAN CORPUSCULAR HGB CONC 31.8 g/dl (32.0-36.5); MEAN CORPUSCULAR VOLUME 106.3 fl (80.0-96.0); RED BLOOD COUNT 2.84 10^6/uL (4.30-6.10); WHITE BLOOD COUNT 5.8 10^3/uL (4.0-10.0)
[2019-07-24 05:59] LABS: PLATELET COUNT, AUTOMATED 93 10^3/uL (150-450)
[2019-07-24 06:04] LABS: INR 1.47; PROTHROMBIN TIME 17.6 SECONDS (11.8-14.0)
[2019-07-24 06:20] LABS: ALBUMIN 2.5 GM/DL (3.2-5.2); CREATININE FOR GFR 6.33 MG/DL (0.70-1.30); GLOMERULAR FILTRATION RATE 11.3 (>42); PHOSPHORUS LEVEL 4.7 MG/DL (2.5-4.9); POTASSIUM SERUM 4.8 MEQ/L (3.5-5.1)
[2019-07-24] MEDS: SODIUM CHLORIDE 0.9% INJ 10 ML SYR IV SCH ×3 (06:51→22:28)
[2019-07-24] MEDS: TIOTROPIUM INHALER/CAPSULE (SPIRIVA) INH SCH (07:20)
[2019-07-24] MEDS: rifAXIMin 550 MG TAB (XIFAXAN) PO SCH ×2 (08:30→22:33)
[2019-07-24] MEDS: OYSTER SHELL CALCIUM 500 MG TAB PO SCH (08:30)
[2019-07-24] MEDS: DOCUSATE SODIUM 100 MG CAP PO SCH ×2 (08:30→22:42)
[2019-07-24] MEDS: GABAPENTIN 100 MG CAP PO SCH (08:30)
[2019-07-24] MEDS: MIDODRINE 5 MG TAB PO SCH ×3 (08:30→16:00)
[2019-07-24] MEDS: ASPIRIN 81 MG CHEW TABLET PO SCH (08:31)
[2019-07-24] MEDS: VITAMIN D 1,000 INTERNATIONAL UNITS TABLET PO SCH (08:31)
[2019-07-24] MEDS: CYANOCOBALAMIN 500 MCG TAB PO SCH (08:31)
[2019-07-24] MEDS: MIRALAX *UNIT DOSE* 17GM PACKET PO SCH (08:31)
--- NOTE | 2019-07-24 10:23 | IPN ---
DATE OF SERVICE: 07/23/2019 SUBJECTIVE: The patient was seen and examined at the bedside today morning. He was laying in the bed. He is slightly obtunded today as compared with yesterday. However, he answers some questions. He was dialyzed yesterday; 1.5 liters of fluid was removed. His Levophed was weaned off. He has been downgraded out of intensive care unit (ICU) into progressive care unit (PCU) now. OBJECTIVE: Vital Signs: Temperature is 97.9 degrees Fahrenheit, blood pressure 145/82, pulse is 81, respiratory rate of 16, saturating 100% on nasal cannula at 1 liter. Intake and Output: Ultrafiltration with hemodialysis was 1.5 liters. Weight in the bed scale is 132 kg. PHYSICAL EXAMINATION: General: The patient is awake, alert, oriented times two, laying in bed, in no apparent distress. Head and Neck Exam: The patient has right eye blindness. Mucous membranes are moist. Neck is supple. She has a right internal jugular (IJ) triple lumen catheter. Cardiovascular: S1, S2. 2+ edema of the bilateral lower extremities. Respiratory: He has bilateral equal air entry. Mild expiratory rhonchi bilaterally at the bases. Abdomen is obese, positive bowel sounds. Nontender to deep palpation. Musculoskeletal: He has left transmetatarsal side amputation. Central Nervous System (CIVIL ENGINEERING SPECIALIST): The patient is oriented times two, and he has right eye blindness. LAB REVIEW: CBC showed WBC 7.1, hemoglobin 10.5, platelets of 84. BMP showed sodium 136, potassium 4.3, chloride 100, bicarbonate 31, BUN 23, creatinine is 5.2, total bilirubin is 1.4, albumin is 2.6. CURRENT INPATIENT MEDICATIONS: The patient's medications were all reviewed by me. There is no significant change in the medications today as compared with yesterday. ASSESSMENT AND PLAN: 1. End-stage renal disease. The patient was dialyzed yesterday. He tolerated the hemodialysis procedure well. Next hemodialysis will be on Thursday as per his regular schedule. 2. Sepsis. The patient was IN septic shock. His Levophed was weaned off yesterday. Cultures are negative so far. He continues to be on empiric ceftriaxone and vancomycin. He should finish at least a 7 day course of antibiotics. 3. Atrial fibrillation. Heart rate is currently well controlled. He is on digoxin. Metoprolol was stopped because of hypotension and chronic obstructive pulmonary disease (COPD). 4. Hepatic encephalopathy. The patient is currently on rifaximin and lactulose. Clinically, he is getting better. 5. Anemia in end-stage renal disease. Hemoglobin is improving with current dose of Aranesp.
[2019-07-24] MEDS ORDERED: GLUCAGON FOR INJ 1 MG VIAL (J1610) SC PRN (12:30)
[2019-07-24] MEDS ORDERED: GLUCOSE 4 GM CHEW TABLET PO PRN (12:30)
[2019-07-24] MEDS ORDERED: DEXTROSE 50% 50 ML SYRINGE IV PRN (12:30)
--- NOTE | 2019-07-24 12:32 | IPN ---
DATE: 07/24/2019 Irwin was having hallucinations last night, picking at things in the air that were not there, very restless evening. Today, he is very sleepy from his events of the previous night. PHYSICAL EXAMINATION: Afebrile. Vital signs stable. He is sleeping soundly and I could not arouse him. Lungs: Decreased breath sounds. Heart: Regular rhythm. Abdomen: Obese. Trace peripheral edema. LABORATORY DATA: CBC, BMP unchanged. IMPRESSION: 1. Encephalopathy probably due to his multiple medical problems. It does not look like there is any active infection going on, but we need to continue to watch him closely. 2. Atrial fibrillation. Rate is better. His rate is controlled. He is being anticoagulated with warfarin. I adjusted the dose today. 3. Cirrhosis. Paracentesis was performed. Cultures are negative. No evidence of spontaneous bacterial peritonitis. 4. Anemia, stable and unchanged. 5. Query sepsis. His cultures have all returned negative. He is still on Rocephin and vancomycin. I think we can discontinue these. So, I am stopping Rocephin and vancomycin. We will need to watch him for a few days off the antibiotics.
[2019-07-24] MEDS: D5W 1,000 ML IV SCH ×2 (12:37→22:33)
[2019-07-24] MEDS: WARFARIN SOD 5 MG TAB PO SCH (16:23)
[2019-07-25] VITALS: BP 95/54
[2019-07-25 04:00] VITALS: BP 110/62
[2019-07-25 04:32] LABS: HEMATOCRIT 31.1 % (42.0-52.0); HEMOGLOBIN 10.1 g/dl (13.5-17.5); MEAN CORPUSCULAR HGB CONC 32.5 g/dl (32.0-36.5); MEAN CORPUSCULAR VOLUME 104.7 fl (80.0-96.0); RED BLOOD COUNT 2.97 10^6/uL (4.30-6.10)
[2019-07-25 04:35] LABS: PLATELET COUNT, AUTOMATED 87 10^3/uL (150-450)
[2019-07-25 04:40] LABS: INR 1.56; PROTHROMBIN TIME 18.4 SECONDS (11.8-14.0)
[2019-07-25 04:52] LABS: ALBUMIN 2.4 GM/DL (3.2-5.2); CALCIUM LEVEL 8.3 MG/DL (8.8-10.2); CREATININE FOR GFR 7.09 MG/DL (0.70-1.30); GLOMERULAR FILTRATION RATE 9.9 (>42); PHOSPHORUS LEVEL 4.6 MG/DL (2.5-4.9); POTASSIUM SERUM 4.6 MEQ/L (3.5-5.1)
[2019-07-25] MEDS: LACTULOSE 20 GM/30 ML SYRUP UD PO SCH ×3 (06:00→15:38)
[2019-07-25] MEDS: SODIUM CHLORIDE 0.9% INJ 10 ML SYR IV SCH ×3 (06:34→21:13)
[2019-07-25 08:00] VITALS: BP 109/76
[2019-07-25] MEDS: DOCUSATE SODIUM 100 MG CAP PO SCH ×2 (08:00→19:48)
[2019-07-25] MEDS: CYANOCOBALAMIN 500 MCG TAB PO SCH (08:00)
[2019-07-25] MEDS: VITAMIN D 1,000 INTERNATIONAL UNITS TABLET PO SCH (08:00)
[2019-07-25] MEDS: D5W 1,000 ML IV SCH (08:00)
[2019-07-25] MEDS: rifAXIMin 550 MG TAB (XIFAXAN) PO SCH ×2 (08:00→21:12)
[2019-07-25] MEDS: GABAPENTIN 100 MG CAP PO SCH (08:00)
[2019-07-25] MEDS: TIOTROPIUM INHALER/CAPSULE (SPIRIVA) INH SCH (08:00)
[2019-07-25] MEDS: MIDODRINE 5 MG TAB PO SCH ×3 (08:00→17:37)
[2019-07-25] MEDS: ASPIRIN 81 MG CHEW TABLET PO SCH (08:00)
[2019-07-25] MEDS: OYSTER SHELL CALCIUM 500 MG TAB PO SCH (08:00)
[2019-07-25] MEDS: MIRALAX *UNIT DOSE* 17GM PACKET PO SCH (08:01)
[2019-07-25] MEDS ORDERED: HEPARIN 1,000 UNITS/ML 10ML VIAL (FOR RADIOLOGY& DIALYSIS ONLY)(J1644-10) IV ONE (09:45)
--- NOTE | 2019-07-25 11:20 | IPN ---
DATE: 07/25/2019 Irwin was seen just before going up to dialysis and again while in dialysis. He has been hypoglycemic over the last day and needed D5W to maintain blood sugars, diabetic and receiving any hypoglycemic medications. Oral intake has been intermittent. He took 100% of his breakfast tray this morning, but only took 25% of breakfast tray yesterday and no other intake during the day. He was having visual hallucinations the evening before last and yesterday, and these are improved. Hopefully, he has turned the corner with that, and oral intake will continue to improve. PHYSICAL EXAMINATION: 109/76, afebrile. General appearance is unchanged. Morbidly obese, lying in bed. Patient is blind. Lungs: Clear. Heart: Regular rhythm. Abdomen: Obese. No masses. Trace peripheral edema. Moves arms and legs with equal strength. Mental status exam is improved. LABS: Sodium 137, potassium 4.6. White count 5, hemoglobin 10, platelets 87. IMPRESSION: 1. Hypoglycemia from poor oral intake. I stopped his D5 today. Will be checking his blood sugars periodically. His oral intake was good this morning, so he should be okay without the supplemental dextrose. 2. Atrial fibrillation. Rate is controlled. I increased his warfarin yesterday. He has daily INRs ordered. 3. Cirrhosis. Paracentesis was performed, and culture was negative. 4. Possible sepsis. We stopped his antibiotics on 07/24/2019. No sign of any recurrence of sepsis. He needs to be monitored for this. 5. End-stage renal disease. Per nephrology. Possible discharge tomorrow if nephrology agrees. Titration of warfarin can be continued after discharge.
[2019-07-25] MEDS: EMLA CREAM 5GM (LIDOCAINE/PRILOCAINE) TOP SCH (12:00)
[2019-07-25 13:45] VITALS: BP 100/60
[2019-07-25 16:00] VITALS: BP 104/56
[2019-07-25] MEDS: WARFARIN SOD 5 MG TAB PO SCH (17:37)
[2019-07-25] MEDS: DIGOXIN 0.25 MG TAB PO SCH (17:37)
--- NOTE | 2019-07-25 17:38 | IPN ---
DATE: 07/24/2019 Mr. Lobo is seen this morning on his bedside. He is sleeping at present and I could not wake him up. Nursing staff reports that he was able to take his medications with significant effort to keep him awake, however, he has been falling asleep quickly. He did not eat his breakfast which is present on his bedside. The patient has history of recurrent hepatic encephalopathy. However, his ammonia level has improved with most recent ammonia level of 45 early this morning. The patient is dialysis dependent and has been regularly dialyzed so there is no question of uremic encephalopathy. PHYSICAL EXAMINATION Temperature 97.1 degrees Fahrenheit, heart rate 60 per minute and respiratory rate 18 per minute. Blood pressure 111/72 mmHg and oxygen saturation 98% on 1 liter oxygen. The patient is not in any acute distress. He is sleeping and I could not wake him up despite multiple efforts. His neck veins are difficult to be assessed. Heart: Sounds are irregular in rhythm. Lungs: Have good bilateral air entry. Abdomen: Obese, soft, nontender. Extremities: Without any cyanosis or clubbing. Neurologically he is obtunded and not able to wake up. Today's labs show sodium 136, potassium 4.8, CO2 29, BUN 29 and creatinine 6.33. Albumin level 2.5. WBC count 5.8, hemoglobin 9.6 and hematocrit 30.2. Platelets 93. PROBLEMS: 1. End-stage renal disease. The patient remains on maintenance hemodialysis and will be dialyzed according to his regular schedule. At this point, there is no emergent need for dialysis today. 2. Altered mentation. The patient is quite obtunded most likely related to hepatic encephalopathy or other causes. He is regularly dialyzed so uremic encephalopathy is unlikely. His last ammonia level was 45 which is much improvement from his baseline. 3. Anemia related to end-stage renal disease and stable at present. No urgent intervention is indicated.
[2019-07-25 20:00] VITALS: BP 103/65
[2019-07-26] VITALS: BP 98/59
[2019-07-26 04:00] VITALS: BP 105/59
[2019-07-26 05:16] LABS: HEMATOCRIT 30.5 % (42.0-52.0); HEMOGLOBIN 9.9 g/dl (13.5-17.5); MEAN CORPUSCULAR HEMOGLOBIN 34.7 pg (27.0-33.0); MEAN CORPUSCULAR HGB CONC 32.5 g/dl (32.0-36.5); RED BLOOD COUNT 2.85 10^6/uL (4.30-6.10); WHITE BLOOD COUNT 5.7 10^3/uL (4.0-10.0)
[2019-07-26 05:17] LABS: PLATELET COUNT, AUTOMATED 84 10^3/uL (150-450)
[2019-07-26 05:24] LABS: INR 1.51; PROTHROMBIN TIME 17.9 SECONDS (11.8-14.0)
[2019-07-26 05:31] LABS: ALBUMIN 2.2 GM/DL (3.2-5.2); CALCIUM LEVEL 8.4 MG/DL (8.8-10.2); CREATININE FOR GFR 5.4 MG/DL (0.70-1.30); GLOMERULAR FILTRATION RATE 13.5 (>42); PHOSPHORUS LEVEL 3.9 MG/DL (2.5-4.9); POTASSIUM SERUM 4.1 MEQ/L (3.5-5.1)
[2019-07-26] MEDS: SODIUM CHLORIDE 0.9% INJ 10 ML SYR IV SCH (05:58)
[2019-07-26] MEDS: LACTULOSE 20 GM/30 ML SYRUP UD PO SCH ×3 (06:00→12:00)
[2019-07-26 08:00] VITALS: BP 98/54
[2019-07-26] MEDS: TIOTROPIUM INHALER/CAPSULE (SPIRIVA) INH SCH (08:47)
[2019-07-26] MEDS: MIRALAX *UNIT DOSE* 17GM PACKET PO SCH (09:00)
[2019-07-26] MEDS: DOCUSATE SODIUM 100 MG CAP PO SCH (09:00)
[2019-07-26] MEDS: MIDODRINE 5 MG TAB PO SCH ×2 (09:03→12:50)
[2019-07-26] MEDS: CYANOCOBALAMIN 500 MCG TAB PO SCH (09:03)
[2019-07-26] MEDS: VITAMIN D 1,000 INTERNATIONAL UNITS TABLET PO SCH (09:03)
[2019-07-26] MEDS: rifAXIMin 550 MG TAB (XIFAXAN) PO SCH (09:03)
[2019-07-26] MEDS: OYSTER SHELL CALCIUM 500 MG TAB PO SCH (09:03)
[2019-07-26] MEDS: GABAPENTIN 100 MG CAP PO SCH (09:03)
[2019-07-26] MEDS: ASPIRIN 81 MG CHEW TABLET PO SCH (09:03)
[2019-07-26] MEDS ORDERED: DIGO0.253 PO (09:56)
[2019-07-26] MEDS ORDERED: LACT10SO29 PO (09:56)
--- NOTE | 2019-07-26 10:44 | IPN ---
DATE: 07/25/2019 Mr. Lobo is seen this morning during hemodialysis. He is awake and able to answer questions this morning. Yesterday, I could not wake him up. The patient denies any fever or chills. He is chronically short of breath and remains on oxygen. On physical examination, temperature 95.5 degrees Fahrenheit, heart rate 60 per minute and respiratory rate 20 per minute. Blood pressure 110/62 mmHg and oxygen saturation 100%. Head is atraumatic. Right eye is blind. Neck veins are difficult to be assessed. Heart sounds are irregular in rhythm and lungs with diminished breath sounds. Abdomen: Obese, soft and nontender. Bowel sounds are normal. Extremities: Without any cyanosis or clubbing. Right arm AV fistula is being used for dialysis. Neurologically, he is awake today and able to answer questions. Today's labs show WBC count 5.0, hemoglobin 10.1 and hematocrit 31. Platelets 87. Sodium 135, potassium 4.6, BUN 32 and creatinine 7.09. Calcium 8.3 and phosphorus 4.6. PROBLEMS: 1. End-stage renal disease. The patient is being dialyzed this morning and he is tolerating dialysis treatment very well. Electrolytes are stable. 2. Congestive heart failure. Volume status is reasonably well-compensated as he was sleepy all day yesterday and did not eat or drink. We are trying to remove about 1 liter of fluid. 3. Altered mentation and hepatic encephalopathy. He does have history of cirrhosis with recurrent hepatic encephalopathy and yesterday he was quite obtunded. Today, he is much more responsive and awake. 4. Anemia. His anemia is stable and does not need any urgent intervention.
[2019-07-26 12:00] VITALS: BP 127/58
--- NOTE | 2019-07-26 13:45 | DS.PDOC ---
Discharge Summary General Date of Admission Jul 18, 2019 at 12:12 Date of Discharge 07/26/2019 Discharge Summary PROCEDURES PERFORMED DURING STAY: Paracentesis 07/21/2019 - removal of 4250 cc of dark yellow fluid by IR ADMITTING DIAGNOSES / DISCHARGE DIAGNOSES: Encephalopathy - likely 2/2 acute hepatic encephalopathy DM2 with Hypoglycemia Atrial fibrillation with RVR Cirrhosis with ascites Chronic hypotension Tachybradycardia syndrome status post pacemaker PVD status post transmetatarsal amputation COPD ELISSA on CPAP Speech difficulty Anemia of chronic disease Severe pulmonary hypertension ESRD on HD (MWF) DVT prophylaxis COMPLICATIONS/CHIEF COMPLAINT: Confusion HISTORY OF PRESENT ILLNESS / HOSPITAL COURSE: Patient is a 74-year-old -[place]aj[place] male who resides at [facility] with a past medical history of encephalopathy, cirrhosis, chronic hypotension, end-stage renal disease on dialysis, [id number] diabetes mellitus type 2, atrial fibrillation on Coumadin, tachybradycardia syndrome status post pacemaker, PVD status post transmetatarsal amputation, COPD, ELISSA on CPAP, speech difficulty, anemia of chronic disease, severe pulmonary hypertension, who presented to the emergency room with complaints of worsening mentation. Upon arrival to emergency room, patient was found to have an elevated ammonia and was admitted to the hospitalist service for likely hepatic ence phalopathy. Patient's encephalopathy had improved after starting lactulose orally and rectally. Patient was put on antibiotics for intra-abdominal coverage for suspected SBP. . His antibiotics were discontinued on 07/24/19 after no signs of infection were found. Patient's mentation ultimately returned back to baseline. Patient's hospital course was complicated with A. fib with RVR and digoxin was started. Metoprolol was discontinued given his chronic hypotension anticoagulation with Coumadin was continued. He has been advised to remain compliant with treatment plan and medications. His dose of outpatient lactulose has been adjusted to maintain 2-3 bowel movements daily. He has been advised to return to the emergency room if he experiences any problems DISCHARGE MEDICATIONS: Please see below. ALLERGIES: Please see below. PHYSICAL EXAMINATION ON DISCHARGE: Vitals (See below) General: Lying in bed, awake / alert HEENT: NC, AT CVS: +S1S2 Lungs: Fair air entry b/l, -w/r/r Abdomen: Soft, ND, NT Extremities: - Edema, L foot - transmetatarsal amputation , - Calf tenderness LABORATORY DATA: Please see below. IMAGING: CXR 07/17: Moderate to marked cardiomegaly with pacemaker. Cephalization. No evidence of pulmonary edema or pleural effusion. Bilateral perihilar fibroatelectatic changes. Vascular US 07/17: 1. Essentially nondiagnostic. If high clinical suspicion or concern, evaluation of the carotids could be performed by CTA. 2. Antegrade flow in the bilateral common carotid arteries. Vertebral and internal carotid arteries are not adequately visualized. CT brain w/o contrast 2: Generalized atrophy and vascular calcification. Opacified mastoid air cells consistent with mastoiditis. This is unchanged. No acute intracranial abnormality. Abdominal US 07/17: 1. No sonographic evidence for acute cholecystitis. 2. Echogenic 11.3 x 5.7 x 5.5 cm right kidney, evidence of chronic medical renal disease. 3. Ascites in all 4 quadrants. CXR 07/19: A right IJ central venous catheter is noted in place on the current radiograph with its tip in the expected location of the superior vena cava. There is no evidence of pneumothorax. Moderate to marked cardiomegaly persists. There is linear opacity in the perihilar regions bilaterally consistent with plate-like atelectasis. Pulmonary vasculature is cephalized. No gerhard pulmonary edema or pleural effusion seen. Paracentesis US 07/20: 4250 ml of dark yellow fluid was withdrawn with a sample sent to the lab for analysis. ACTIVITY: [As tolerated]. DISCHARGE PLAN: Follow-up with Dr. Elvira Alvarez within the next 7 days Remain compliant with treatment plan and medications Return to the ER if you experience any problems DISPOSITION: Home DISCHARGE CONDITION: [Stable]. TIME SPENT ON DISCHARGE: 35 minutes Vital Signs/I&Os Vital Signs Date Time Temp Pulse Resp B/P (MAP) Pulse Ox O2 Delivery O2 Flow Rate FiO2 07/26/19 12:00 127/58 (81) 07/26/19 08:00 97.6 74 17 99 Room Air 07/26/19 04:00 1.0 I&O- Last 24 Hours up to 6 AM 07/26/19 06:00 Intake Total 500 ml Output Total 1000 ml Balance -500 ml Laboratory Data Labs 24H Laboratory Tests 2 07/25/19 17:20: Bedside Glucose (Misc Panel) 113H 07/26/19 00:46: Bedside Glucose (Misc Panel) 135H 07/26/19 04:43: Nucleated Red Blood Cells % (auto) 0.0, Immature Platelet Fraction 6.8, Prothrombin Time 17.9H, Prothromb Time International Ratio 1.51, Anion Gap 6L, Glomerular Filtration Rate 13.5L, Calcium Level 8.4L, Phosphorus Level 3.9, Albumin 2.2L CBC/BMP Laboratory Tests 07/26/19 04:43 FSBS Laboratory Tests Test 07/25/19 17:20 07/26/19 00:46 Range/Units Bedside Glucose (Misc Panel) 113 135 83-110 MG/DL Microbiology Microbiology 07/21/19 Gram Stain - Final, Complete 07/21/19 Body Fluid Culture - Final, Complete 07/19/19 Blood Culture - Final, Complete NO GROWTH AFTER 5 DAYS 07/19/19 Blood Culture - Final, Complete NO GROWTH AFTER 5 DAYS 07/18/19 Blood Culture - Final, Complete NO GROWTH AFTER 5 DAYS 07/18/19 Blood Culture - Final, Complete NO GROWTH AFTER 5 DAYS Discharge Medications Scheduled Aspirin (Aspirin) 81 Mg Tab.chew, 81 MG PO DAILY, (Reported) noon Calcium Carbonate (Calcium Carbonate) 500 Mg Tablet, 500 MG PO DAILY, (Reported) @ 1300 Cholecalciferol (Vitamin D3) (Vitamin D3) 1,000 Unit Tablet, 1,000 UNITS PO DAILY, (Reported) noon Cyanocobalamin (Vitamin B-12) (Vitamin B-12) 500 Mcg Tab, 500 MCG PO DAILY, (Reported) noon Digoxin (Digoxin) 250 Mcg Tablet, 0.25 MG PO [id number] Gabapentin (Gabapentin) 100 Mg Cap, 100 MG PO DAILY, (Reported) noon Lactulose (Lactulose) 10 Gm/15 Ml Solution, 30 ML PO Q6H titrate for 2-3 bowel movements dialy Lidocaine/Prilocaine (Lidocaine-Prilocaine Cream) 2.5%/2.5% Cream..g., 1 APLCT TOP ASDIRECTED, (Reported) APPLY TO DIALYSIS ACCESS SITE ONE HOUR PRIOR TO DIALYSIS MON, WED, FRI Midodrine HCl (Midodrine HCl) 5 Mg Tablet, 5 MG PO 3XW, (Reported) MON, WED, FRI. @ 0500, 1300, 2100 Midodrine HCl (Midodrine HCl) 5 Mg Tablet, 5 MG PO 4XWK, (Reported) SUN, TUES, THURS, SAT @ 0800, 1300, 2000 Rifaximin (Xifaxan) 550 Mg Tablet, 550 MG PO BID, (Reported) started 07/16/19 for 10 days Sevelamer Carbonate (Sevelamer Carbonate) 800 Mg Tab, 1,600 MG PO 3XW, (Reported) THU, THU, THU. @ 0600, 1200, 1700 Sevelamer Carbonate (Renvela) 800 Mg Tablet, 1,600 MG PO 4XWK, (Reported) THU, , , SAT @ 0800, 1200, 1700 Umeclidinium [place] (Incruse Ellipta) 62.5 Mcg Blst.w.dev, 1 PUFF INH DAILY, (Reported) @ 1300 Warfarin Sodium (Warfarin Sodium) 4 Mg Tablet, 4 MG PO 4XWK, (Reported) THURSDAY, THURSDAY, THURSDAY AND THURSDAY @ 1700 Warfarin Sodium (Warfarin Sodium) 2 Mg Tablet, 2 MG PO 3XW, (Reported) THURSDAY, THURSDAY AND THURSDAY @ 1700 Scheduled PRN Acetaminophen (Acetaminophen) 650 Mg Supp.rect, 650 MG TN Q4H PRN for PAIN, (Reported) Acetaminophen (Acetaminophen) 325 Mg Tablet, 650 MG PO Q4H PRN for PAIN, (Rep orted) Albuterol Sulfate (Ventolin Hfa) 108 Mcg/Act Aer, 2 PUFFS INH QID PRN for SHORTNESS OF BREATH, (Reported) Bisacodyl (Dulcolax) 10 Mg Supp.rect, 10 MG TN DAILY PRN for CONSTIPATION, (Reported) Hydroxyzine HCl (Hydroxyzine HCl) 25 Mg Tablet, 25 MG PO BID PRN for ITCHING, (Reported) Nitroglycerin (Nitrostat) 0.4 Mg Subl, 0.4 MG SL NITRO PRN for ANGINA, (Reported) Sodium Phosphate,[place]-Dibasic (Fleet Enema) 133 Ml Enema, 1 MARTINEZ TN DAILY PRN for CONSTIPATION, (Reported) Allergies Coded Allergies: No Known Allergies (Verified , 03/22/19) SAKINA PALOMO MD Jul 26, 2019 13:45
--- NOTE | 2019-07-26 15:46 | IPN ---
DATE: 07/26/2019 Mr. Lobo is seen this morning on his bedside. He is sitting in the wheelchair and reports that he is likely to go back to group home. He was dialyzed yesterday, which he tolerated well. The patient has significant abdominal distension with ascites, and he remains somewhat uncomfortable. PHYSICAL EXAMINATION: He is awake and able to answer questions appropriately. He has chronic stutter, which is unchanged, and difficult to understand what he says. Temperature 97.6 degrees Fahrenheit, heart rate 74 per minute, respiratory rate 18 per minute, blood pressure 98/54 mm of mercury, and oxygen saturation 99%. His right eye is blind. Head is atraumatic. He has a central line in right neck. Jugular venous distention (JVD) difficult to be assessed. Heart sounds distant and irregular, and lungs with diminished breath sounds. Abdomen is obese, nontender, and ascites is present. Dressing at the paracentesis site is intact. Extremities have no cyanosis or clubbing. Right arm arteriovenous (AV) fistula is patent. Neurologically he is awake and able to answer questions. Today's labs show WBC count 5.7, hemoglobin 9.9, hematocrit 30.5, platelets 84,000. Sodium 134, potassium 4.1, CO2 of 27, BUN 19, and creatinine 5.4. PROBLEMS: 1. End-stage renal disease. The patient was dialyzed yesterday, which was his regular day, and next dialysis is due for tomorrow. No urgent need for dialysis today. 2. Altered mentation, most likely related to hepatic encephalopathy and has improved. His most recent ammonia level was down to 45 on July 23. 3. Congestive heart failure. His volume status is reasonably well compensated other than ascites. We will continue to manage this with dialysis. 4. Anemia. His anemia is chronic and stable and does not need any urgent intervention. DISPOSITION: The patient feels that he is going to be discharged to group home today and will return to outpatient dialysis clinic for his next dialysis tomorrow.
== END 2019-07-26 13:40 | DRG 441 ==
LOC: M ED 07:48 → EDBD 07:48 → M ED INP 12:12 → ENRESERVDT 12:18 → ENRESERVTM 12:18 → M PCU 17:03 → M ICU 07-19 23:43 → M PCU 07-22 18:47
PROVIDERS: ADMIT Internal Medicine; ATTEND Internal Medicine
PROC: 02HV33Z Insertion of Infusion Device into Superior Vena Cava, Percutaneous Approach (ICD-10-PCS; principal; 2019-07-20)
PROC: 5A1D70Z Performance of Urinary Filtration, Intermittent, Less than 6 Hours Per Day (ICD-10-PCS; 2019-07-20)
PROC: 0W9G3ZX Drainage of Peritoneal Cavity, Percutaneous Approach, Diagnostic (ICD-10-PCS; 2019-07-21)
DX: K72.00 Acute and subacute hepatic failure without coma (principal); N18.6 End stage renal disease; E87.2 Acidosis; I48.20 Chronic atrial fibrillation, unspecified; E66.2 Morbid (severe) obesity with alveolar hypoventilation; R18.8 Other ascites; I50.32 Chronic diastolic (congestive) heart failure; I13.2 Hypertensive heart and chronic kidney disease with heart failure and with stage 5 chronic kidney disease, or end stage renal disease; K74.60 Unspecified cirrhosis of liver; E11.22 Type 2 diabetes mellitus with diabetic chronic kidney disease; E11.42 Type 2 diabetes mellitus with diabetic polyneuropathy; I50.812 Chronic right heart failure; I27.20 Pulmonary hypertension, unspecified; I49.5 Sick sinus syndrome; E11.51 Type 2 diabetes mellitus with diabetic peripheral angiopathy without gangrene; D63.1 Anemia in chronic kidney disease; J44.9 Chronic obstructive pulmonary disease, unspecified; H54.61 Unqualified visual loss, right eye, normal vision left eye; I95.1 Orthostatic hypotension; G47.33 Obstructive sleep apnea (adult) (pediatric); Z99.2 Dependence on renal dialysis; Z89.422 Acquired absence of other left toe(s); Z79.01 Long term (current) use of anticoagulants; Z79.82 Long term (current) use of aspirin; Z79.899 Other long term (current) drug therapy; Z86.14 Personal history of Methicillin resistant Staphylococcus aureus infection; Z68.38 Body mass index [BMI] 38.0-38.9, adult; I71.2 Thoracic aortic aneurysm, without rupture; I35.0 Nonrheumatic aortic (valve) stenosis; E11.649 Type 2 diabetes mellitus with hypoglycemia without coma

== ENCOUNTER → 2019-07-27 | Outpatient (REF) ==
[~2019-07-27] MED LIST changes: +ASPI81CH33 PO; +DIGO0.253 PO
[2019-07-27 15:05] LABS: INR 1.65; PROTHROMBIN TIME 19.2 SECONDS (11.8-14.0)
== END ==
LOC: SKLAB3 13:45
PROVIDERS: ATTEND Internal Medicine
DX: I48.91 Unspecified atrial fibrillation (principal)

== ENCOUNTER → 2019-07-28 | Outpatient (REF) ==
[2019-07-28 12:38] LABS: INR 1.74; PROTHROMBIN TIME 20.1 SECONDS (11.8-14.0)
== END ==
LOC: SKLAB3 07:00
PROVIDERS: ATTEND Internal Medicine
DX: I48.91 Unspecified atrial fibrillation (principal); Z79.01 Long term (current) use of anticoagulants

== ENCOUNTER → 2019-07-29 | Outpatient (REF) ==
[2019-07-29 10:34] LABS: INR 2.11; PROTHROMBIN TIME 23.5 SECONDS (11.8-14.0)
== END ==
LOC: SKLAB3 07:00
PROVIDERS: ATTEND Internal Medicine
DX: I48.91 Unspecified atrial fibrillation (principal); Z79.01 Long term (current) use of anticoagulants

== ENCOUNTER → 2019-08-02 | Outpatient (REF) ==
[2019-08-02 07:28] LABS: INR 1.85; PROTHROMBIN TIME 21.1 SECONDS (11.8-14.0)
== END ==
LOC: SKLAB3 07:00
PROVIDERS: ATTEND Internal Medicine
DX: I48.91 Unspecified atrial fibrillation (principal); K74.60 Unspecified cirrhosis of liver; Z86.14 Personal history of Methicillin resistant Staphylococcus aureus infection; Z79.01 Long term (current) use of anticoagulants

== ENCOUNTER → 2019-08-09 | Outpatient (REF) ==
[2019-08-09 07:21] LABS: INR 2.11; PROTHROMBIN TIME 23.4 SECONDS (11.8-14.0)
== END ==
LOC: SKLAB3 07:00
PROVIDERS: ATTEND Internal Medicine
DX: I48.91 Unspecified atrial fibrillation (principal); Z79.01 Long term (current) use of anticoagulants

== ENCOUNTER → 2019-08-11 | Outpatient (CLI) | payer MEDICARE, MEDICAID ==
--- NOTE | 2019-08-11 09:48 | REP ---
LIMITED ABDOMINAL ULTRASOUND: Limited abdominal ultrasound performed to evaluate for ascites. There is mild to moderate diffuse abdominal and pelvic ascites. The amount of fluid is greater inferiorly in both lower quadrants. IMPRESSION: Mild to moderate ascites. Electronically Signed by Sam Sharif MD 08/11/2019 04:50 P
== END ==
LOC: M RAD 07:11
PROVIDERS: ATTEND Nurse Practitioner Family
DX: R18.8 Other ascites (principal)

== ENCOUNTER → 2019-08-16 | Outpatient (REF) | payer MEDICARE, MEDICAID ==
[2019-08-16 07:54] LABS: INR 2.63
== END ==
LOC: SKLAB3 07:00
PROVIDERS: ATTEND Internal Medicine
DX: I48.91 Unspecified atrial fibrillation (principal); Z79.01 Long term (current) use of anticoagulants

== ENCOUNTER → 2019-08-19 | Outpatient (CLI) | payer MEDICARE, MEDICAID ==
[~2019-08-19] MED LIST changes: +ISOVUE-300 61% 50ML VIAL (Q9967) As Ordered ONE; +LIDOCAINE 1% MDV 20ML VIAL As Ordered ONE; +MIDAZOLAM INJ 2 MG/2 ML VIAL (J2250) As Ordered ONE; +fentaNYL 100 MCG/2 ML INJECTION (J3010) As Ordered ONE
--- NOTE | 2019-08-19 16:39 | ROOPDOC ---
[facility] Report Of Operation Report of Operation DATE OF PROCEDURE: 08/19/19 PREPROCEDURE DIAGNOSES: End-stage renal disease with poorly functioning right brachiocephalic AV fistula POSTPROCEDURE DIAGNOSES: Same. PROCEDURE: 1. Ultrasound examination of right brachiocephalic AV fistula, ultrasound-guided access right cephalic vein 2. Right upper extremity fistulogram and central venogram 3. Angioplasty of the right cephalic vein and subclavian vein with 8 x 200 Center balloon 4. Completion venogram SURGEON: Noah Mattson MD ANESTHESIA: Local anesthesia with 5 mL lidocaine. Moderate intravenous conscious sedation was administered by Dr. Mattson. The patient was independently monitored by a registered nurse assigned to the Department of radiology using automated blood pressure, EKG, and pulse oximetry. The detailed sedation record was permanently stored in the hospital information system. The following is a presedation record: Start time 15:35, stop time 16:11, Versed 0.5 mg IV, fentanyl 25 g IV. CONTRAST: 30 mL Isovue-300 INDICATION FOR PROCEDURE: This is a very pleasant 74-year-old gentleman with a right brachiocephalic AV fistula that has been superficialized due to being too deep into tortuous for cannulation. The patient has been having difficulty with cannulation again, and increased bleeding with treatments with increased pulsatility. Risks benefits and alternatives to a fistulogram potential intervention were explained and the patient was agreeable to proceed. Informed consent was obtained. INTERPRETATION: 1. The AV anastomosis is widely patent on ultrasound. Ultrasound was used to mar k the fistula on the skin with marking pen. 2. The patient has widely patent inflow through the cephalic vein with some intermittent dilation of the vein but no areas of severe focal stenosis noted. The proximal cephalic vein and subclavian vein to have some mild stenosis, proximally 30-40%, but the central veins are widely patent. 3. After angioplasty of the cephalic vein and subclavian vein for three-minute inflations with an 8 x 200 Center balloon, there was still some residual stenosis at the shoulder and upper arm in the cephalic vein and subclavian vein. A second angioplasty provided increased flow with less than 10% residual stenosis noted. No significant outflow stenosis was noted, but the patient still has a bit of pulsatility in the fistula. It is unclear to me on fistulogram why this is. It may be just secondary to the superficialization which reroutes the vein slightly lateral to its original anatomy. No extravasation noted after angioplasty. REPORT OF OPERATION: The patient was brought to the angiographic suite in stable condition and placed supine on the fluoroscopic table. His right upper extremity was prepped and draped in sterile fashion. A timeout was performed. Local anesthesia was administered to the skin and subcutaneous tissue over the cephalic vein near the AV anastomosis. A microneedle was used to access the vein under ultrasound guidance after examining and marking the fistula on the arm with ultrasound. A wire was passed through this access and a 4 Bruneian sheath was placed and flushed with saline. We then advanced a Glidewire into the central system under fluoroscopic guidance. A fistulogram and central venogram were performed. Please see ultrasound fistulogram interpretation above. We then exchange the sheath over the wire for 6 Bruneian sheath and flushed the sheath with saline. An 8 x 200 Center balloon was advanced first to cross the proximal aspect of the vein in the subclavian and the cephalic vein at the shoulder, a three-minute inflations was performed. We then retracted the balloon more distally into the arm over the bicep and a second three-minute inflation was performed. We then retracted the balloon back towards the AV anastomosis in the third three-minute inflation was performed. Following this there is widely patent. The fistula but still a little bit of residual stenosis up at the proximal cephalic and the shoulder and the subclavian vein. A second three- minute inflation was performed across this area, and following this there was minimal less than 5% residual stenosis noted and it was not flow-limiting. This then concluded the procedure. Local anesthesia was administered around the sheath and a Prolene suture was placed in a [id number] pattern to secure the access site after removing the sheath. Pressure was held for 5 minutes for good hemostasis and sterile dressings were applied. The patient was taken to recovery in stable condition. He tolerated the procedure and the sedation well. ESTIMATED BLOOD LOSS: Approximately 5 mL. COMPLICATIONS: None. PLAN: It is okay to use the fistula for dialysis. I think part of the reason the patient is having bleeding after dialysis is due to his Coumadin, more so than an outflow obstruction. I marked the fistula on the skin. It is okay to resume home medications and diet. We appreciate the opportunity to participate in the care of this patient. NOAH MATTSON MD Aug 19, 2019 16:39
[2019-08-19 17:33] VITALS: BP 98/62
== END ==
LOC: M IRPRO 13:29
PROVIDERS: ATTEND Surgery Vascular Surgery
DX: T82.590A Other mechanical complication of surgically created arteriovenous fistula, initial encounter (principal); N18.6 End stage renal disease; X58.XXXA Exposure to other specified factors, initial encounter; Y93.9 Activity, unspecified; Y92.9 Unspecified place or not applicable; Y99.9 Unspecified external cause status
CPT/HCPCS: 36902; 36907; 99152; 99153; C1725; C1769; C1894; J1644; J2250; J3010; Q9967

== ENCOUNTER → 2019-08-23 | Outpatient (REF) | payer MEDICARE, MEDICAID ==
[~2019-08-23] MED LIST changes: -ISOVUE-300 61% 50ML VIAL (Q9967) As Ordered ONE; -LIDOCAINE 1% MDV 20ML VIAL As Ordered ONE; -MIDAZOLAM INJ 2 MG/2 ML VIAL (J2250) As Ordered ONE; -fentaNYL 100 MCG/2 ML INJECTION (J3010) As Ordered ONE
[2019-08-23 10:53] LABS: INR 2.59; PROTHROMBIN TIME 27.6 SECONDS (11.8-14.0)
== END ==
LOC: SKLAB3 07:00
PROVIDERS: ATTEND Internal Medicine
DX: I48.91 Unspecified atrial fibrillation (principal); K74.60 Unspecified cirrhosis of liver

== ENCOUNTER → 2019-08-30 | Outpatient (REF) | payer MEDICARE, MEDICAID ==
[2019-08-30 08:06] LABS: INR 3.03; PROTHROMBIN TIME 31.3 SECONDS (11.8-14.0)
== END ==
LOC: SKLAB3 07:00
PROVIDERS: ATTEND Internal Medicine
DX: I48.91 Unspecified atrial fibrillation (principal)

== ENCOUNTER → 2019-09-06 | Outpatient (REF) | payer MEDICARE, MEDICAID ==
[2019-09-06 11:21] LABS: INR 2.68; PROTHROMBIN TIME 28.4 SECONDS (11.8-14.0)
== END ==
LOC: SKLAB3 14:51
PROVIDERS: ATTEND Internal Medicine
DX: I48.91 Unspecified atrial fibrillation (principal)

== ENCOUNTER → 2019-09-06 | Outpatient (CLI) | payer MEDICARE, MEDICAID ==
--- NOTE | 2019-09-06 13:32 | REP ---
Limited four quadrant abdominal ultrasound was performed to assess for ascites. There is evidence of mild ascites in all four quadrants. Electronically Signed by Kale Gloria DO 09/06/2019 01:39 P
== END ==
LOC: M RAD 12:01
PROVIDERS: ATTEND Nurse Practitioner Family
DX: R18.8 Other ascites (principal); I48.91 Unspecified atrial fibrillation

== ENCOUNTER → 2019-09-13 | Outpatient (REF) | payer MEDICARE, MEDICAID ==
[2019-09-13 07:56] LABS: INR 2.87
== END ==
LOC: SKLAB3 08:35
PROVIDERS: ATTEND Internal Medicine
DX: I48.91 Unspecified atrial fibrillation (principal)

== ENCOUNTER → 2019-09-20 | Outpatient (REF) | payer MEDICARE, MEDICAID ==
[~2019-09-20] MED LIST changes: +NADO20TA PO
[2019-09-20 09:44] LABS: INR 4.49; PROTHROMBIN TIME 42.9 SECONDS (11.8-14.0)
== END ==
LOC: SKLAB3 08:00
PROVIDERS: ATTEND Internal Medicine
DX: I48.91 Unspecified atrial fibrillation (principal); K74.69 Other cirrhosis of liver

== ENCOUNTER 2019-09-21 01:28 | Emergency (ER) | payer MEDICARE, MEDICAID ==
[~2019-09-21] VITALS: Ht 185.4 cm; Wt 122.0 kg
[~2019-09-21 01:28] MED LIST changes: -NADO20TA PO
[2019-09-21 02:05] LABS: BASO % 0.8 % (0.0-1.0); EOS # 0.1 10^3/uL (0.0-0.5); EOS % 1.3 % (0.0-3.0); HEMATOCRIT 40.9 % (42.0-52.0); HEMOGLOBIN 12.7 g/dl (13.5-17.5); MEAN CORPUSCULAR HEMOGLOBIN 33.6 pg (27.0-33.0); MEAN CORPUSCULAR HGB CONC 31.1 g/dl (32.0-36.5); MEAN CORPUSCULAR VOLUME 108.2 fl (80.0-96.0); MONO # 0.9 10^3/uL (0.0-0.8); MONO % 18.9 % (0.0-5.0); NEUTROPHILS # 2.8 10^3/uL (1.5-8.5); NEUTROPHILS % 57.6 % (36.0-66.0); RED BLOOD COUNT 3.78 10^6/uL (4.30-6.10); WHITE BLOOD COUNT 4.8 10^3/uL (4.0-10.0)
[2019-09-21 02:10] LABS: PLATELET COUNT, AUTOMATED 69 10^3/uL (150-450)
--- NOTE | 2019-09-21 02:33 | REP ---
Clinical: Altered mental status. Comparison: 07/20/2019. Findings: Cardiomegaly is again noted with single lead pacemaker. The lung mello demonstrate increased pulmonary vasculature with elements to suggest cephalization as well as lower lobe opacities (right greater than left). A small layering right effusion cannot definitively be excluded. No pneumothorax. Skeletal structures are intact. Impression: 1. Cardiomegaly with findings to suggest early pulmonary vascular congestion. 2. Trace basilar atelectasis (right greater than left) as well as possible small layering right effusion cannot be excluded. Electronically Signed by Pito Allen MD 09/21/2019 02:25 A
[2019-09-21 02:35] LABS: BILIRUBIN,DIRECT 0.5 MG/DL (0.0-0.2); BILIRUBIN,TOTAL 1.3 MG/DL (0.2-1.0); CALCIUM LEVEL 9.5 MG/DL (8.8-10.2); CK-MB VALUE MASS 3.2 NG/ML (<3.6); CREATININE FOR GFR 4.97 MG/DL (0.70-1.30); GLOMERULAR FILTRATION RATE 14.9 (>42); MB/CK RELATIVE INDEX 5.61 (< OR =4); THYROID STIMULATING HORMONE 2.15 uIU/ML (0.358-3.740); TOTAL PROTEIN 7.7 GM/DL (6.4-8.2); TROPONIN I 0.5 NG/ML (< 0.10)
[2019-09-21] MEDS ORDERED: NADO20TA PO (02:44)
[2019-09-21] MEDS ORDERED: DIGO0.253 PO (02:44)
[2019-09-21] MEDS ORDERED: LACT10SO29 PO ×2 (02:44)
[2019-09-21 02:54] LABS: VENOUS BASE EXCESS -0.3 (-2.0-2.0); VENOUS HCO3 28.5 MEQ/L (23.0-27.0); VENOUS O2 SATURATION 81.8 % (60.0-80.0); VENOUS PARTIAL PRESSURE CO2 66.7 mmHg (38.0-50.0); VENOUS PARTIAL PRESSURE O2 55.6 mmHg (30.0-50.0); VENOUS PH 7.248 UNITS (7.330-7.430); VENOUS STANDARD HCO3 23.9 MEQ/L; VENOUS TOTAL CO2 30.5 MEQ/L (24.0-28.0)
--- NOTE | 2019-09-21 02:57 | CR.PDOC ---
General Date of Consultation: September 21, 2019 Referring Provider: RANDALL KEENE DO Attending Physician: SHYANNE CA MD Consultation TIME OF SERVICE: 255AM REASON FOR CONSULTATION/CHIEF COMPLAINT: confusion HISTORY OF PRESENT ILLNESS: This is a 74 yr old M who was sent from his NH for evaluation of confusion and was found to have an ammonia level of 88. At the time of my evaluation, he was intimately arousable but not answering questions appropriately. Per discussion with Dr. Keene on arrival, his blood pressure was 78/49. A femoral line was placed and he was given only 500 mg of IV fluids as he is a dialysis patient. He is still full code. I called his to update him on her 's course and discuss the possibility of transitioning to comfort measures. She declined and requested that we do everything we can and that he remain full code. ROS: Unable to obtain PAST MEDICAL /SURGICAL HISTORY: ESRD Liver cirrhosis with chronic thrombocytopenia, history of ascites and history of hepatic encephalopathy IDDM 2 with neuropathy. 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 PVD status post transmetatarsal amputation. ELISSA with CPAP. CAD Speech impediment Anemia of chronic disease. Severe pulmonary hypertension History of hypotension Full code SOCIAL HISTORY: Used to live with his , but currently resides at the intermediate. He doesn't smoke He doesn't drink. He is originally from [place] FAMILY HISTORY: Unobtainable PHYSICAL EXAMINATION: VITAL SIGNS: Please see below. GENERAL APPEARANCE: Sedated HEENT: NCAT/tongue appears slightly cyanotic in color RESPIRATORY: He has decreased air entry bilaterally , and end expiratory rhonchi CARDIOVASCULAR: Heart sounds are difficult to auscultate because of body habitus ABDOMEN: Firm and distended PSYCHIATRIC: Intermittently arousable and not answering questions appropriately. He thinks that were in [place] LABORATORY DATA: Laboratory Tests 09/21/19 01:48 Immature Granulocyte % (Auto) 0.4, Neutrophils (%) (Auto) 57.6, Lymphocytes (%) (Auto) 21.0L, Monocytes (%) (Auto) 18.9H, Eosinophils (%) (Auto) 1.3, Basophils (%) (Auto) 0.8, Neutrophils # (Auto) 2.8, Lymphocytes # (Auto) 1.0L, Monocytes # (Auto) 0.9H, Eosinophils # (Auto) 0.1, Basophils # (Auto) 0.0, Nucleated Red Blood Cells % (auto) 1.5H, Immature Platelet Fraction 12.2H, Anion Gap 7L, Glomerular Filtration Rate 14.9L, Lactic Acid Level 2.0, Calcium Level 9.5, Total Bilirubin 1.3H, Direct Bilirubin 0.5H, Aspartate Amino Transf (AST/SGOT) 29, Alanine Aminotransferase (ALT/SGPT) 20, Alkaline Phosphatase 110, Ammonia 74H, Total Creatine Kinase 57, Creatine Kinase MB 3.2, Creatine Kinase MB Relati ve Index 5.61H, Troponin I 0.50H, Total Protein 7.7, Albumin 3.0L, Albumin/Globulin Ratio 0.64L, Thyroid Stimulating Hormone (TSH) 2.150 09/21/19 01:57: Coronavirus (COVID-19)(PCR) NEGATIVE MICROBIOLOGY: 09/21/19 Blood Culture, Received Pending 09/21/19 Blood Culture, Received Pending ASSESSMENT/PLAN: This is a 74 yr old M w a PMH of DM2, ESRD, Liver Cirrhosis, Hepatic Encephalopathy, A fib, COPD, ELISSA, patient impediment and obesity who was transferred from his [facility] intermediate for evaluation of AMS likely 2/2 hepatic encephalopathy. He has multiple comorbidities that are becoming increasingly challenging to manage. We offered his the option to transition to TURNING MACHINE OPERATOR, but she requested that we continue with aggressive medical management and that he remain full code. Due to the facts that he has a hepatic encephalopathy with high MELD score and that we don't have GI commercial loan collection officer this week to assist with his management I recommend that he be transferred to another facility such as [facility] for a higher level of care. Child-Lyon Class C = life expectancy 1-3 yrs MELD Na Score = approx 33 = 65-66% estimated 90 day mortality MELD New Score = 38 = 52.6% estimated 3 month mortality Allergies Coded Allergies: No Known Allergies (Verified , 03/22/19) Home Medications Scheduled Aspirin (Aspirin) 81 Mg Tab.chew, 81 MG PO DAILY, (Reported) noon Calcium Carbonate (Calcium Carbonate) 500 Mg Tablet, 500 MG PO DAILY, (Reported) @ 1300 Cholecalciferol (Vitamin D3) (Vitamin D3) 1,000 Unit Tablet, 1,000 UNITS PO DAILY, (Reported) noon Cyanocobalamin (Vitamin B-12) (Vitamin B-12) 500 Mcg Tab, 500 MCG PO DAILY, (Reported) noon Digoxin (Digoxin) 250 Mcg Tablet, 250 MCG PO 3XW, (Reported) , SAT @ 0800 Gabapentin (Gabapentin) 100 Mg Cap, 100 MG PO DAILY, (Reported) noon Lactulose (Lactulose) 10 Gm/15 Ml Solution, 45 ML PO 3XW, (Reported) THU, THU, THU, EVERY 6 HOURS : 0000, 0600, 1200, 1800 Lactulose (Lactulose) 10 Gm/15 Ml Solution, 45 ML PO 4XWK, (Reported) THU, , SAT EVERY 6 HOURS: 0400, 1000, 1600, 2200 Lidocaine/Prilocaine (Lidocaine-Prilocaine Cream) 2.5%/2.5% Cream..g., 1 APLCT TOP ASDIRECTED, (Reported) APPLY TO DIALYSIS ACCESS SITE ONE HOUR PRIOR TO DIALYSIS THU, THU, THU Midodrine HCl (Midodrine HCl) 5 Mg Tablet, 5 MG PO 3XW, (Reported) THU, THU, THU. @ 0500, 1300, 2100 Midodrine HCl (Midodrine HCl) 5 Mg Tablet, 5 MG PO 4XWK, (Reported) THU, , SAT @ 0800, 1300, 2000 Nadolol (Nadolol) 20 Mg Tablet, 10 MG PO DAILY, (Reported) @1300 HOLD IF SBP<100 Sevelamer Carbonate (Sevelamer Carbonate) 800 Mg Tab, 1,600 MG PO 3XW, (Reported) THU, THU, THU. @ 0600, 1200, 1700 Sevelamer Carbonate (Renvela) 800 Mg Tablet, 1,600 MG PO 4XWK, (Reported) THU, , , SAT @ 0800, 1200, 1700 Umeclidinium Bonham (Incruse Ellipta) 62.5 Mcg Blst.w.dev, 1 PUFF INH DAILY, (Reported) @ 1300 Warfarin Sodium (Warfarin Sodium) 4 Mg Tablet, 4 MG PO 5XW, (Reported) THURSDAY, THURSDAY, THURSDAY, THURSDAY AND THURSDAY @ 1700 Warfarin Sodium (Warfarin Sodium) 2 Mg Tablet, 2 MG PO 2XW, (Reported) THURSDAY, THURSDAY @ 1700 Scheduled PRN Acetaminophen (Acetaminophen) 650 Mg Supp.rect, 650 MG NE Q4H PRN for PAIN, ( Reported) Acetaminophen (Acetaminophen) 325 Mg Tablet, 650 MG PO Q4H PRN for PAIN, (Reported) Albuterol Sulfate (Ventolin Hfa) 108 Mcg/Act Aer, 2 PUFFS INH QID PRN for SHORTNESS OF BREATH, (Reported) Bisacodyl (Dulcolax) 10 Mg Supp.rect, 10 MG NE DAILY PRN for CONSTIPATION, (Reported) Hydroxyzine HCl (Hydroxyzine HCl) 25 Mg Tablet, 25 MG PO BID PRN for ITCHING, (Reported) Nitroglycerin (Nitrostat) 0.4 Mg Subl, 0.4 MG SL NITRO PRN for ANGINA, (Reported) Sodium Phosphate,Ritchie-Dibasic (Fleet Enema) 133 Ml Enema, 1 MARTINEZ NE DAILY PRN for CONSTIPATION, (Reported) SHYANNE CA MD September 21, 2019 02:57
[2019-09-21] MEDS ORDERED: D5W/0.9% SODIUM CHLORIDE 1,000 ML IV ONE (03:00)
--- NOTE | 2019-09-21 03:28 | REPVR ---
PROCEDURE INFORMATION: Exam: CT Head Without Contrast Exam date and time: 09/21/19 (2:52am) Age: 74 years old Clinical indication: Altered mental status / memory loss. Confusion or disorientation. TECHNIQUE: Imaging protocol: Computed tomography of the head without contrast. Radiation optimization: All CT scans at this facility use at least one of these dose optimization techniques: automated exposure control; mA and/or kV adjustment per patient size (includes targeted exams where dose is matched to clinical indication); or iterative reconstruction. COMPARISON: CT HEAD of 07/18/19 FINDINGS: Brain: Generalized atrophic changes again noted. No acute hemorrhage. No mass effect. Ventricles: Normal. No ventriculomegaly. Bones/joints: Unremarkable. No acute fracture. Sinuses: Visualized sinuses are unremarkable. No air-fluid levels. Mastoid air cells: Moderately opacified mastoid air cells (unchanged appearance). Soft tissues: Unremarkable. IMPRESSION: No acute intracranial pathology is appreciated. In general, a similar appearance was noted on 07/18/19. Electronically signed by: Joie Hodgson On 09/21/2019 03:28:11 AM
[2019-09-21] MEDS ORDERED: NOREPINEPHRINE BITARTRATE 16 MG in D5W 484 ML IV SCH (04:15)
[2019-09-21] MEDS ORDERED: PIPERACILLIN/TAZOBACTAM SOD 3.375 GM in D5W MINI-BAG PLUS 50 ML IV ONE (05:30)
[2019-09-21 06:36] VITALS: BP 98/71
--- NOTE | 2019-09-21 09:03 | ECGEPIP ---
[facility] - ED Test Date: 2019-09-21 Pat Name: KATHIA NAVARRETE Department: Room: - Gender: Male [employer]: : 1945 Requested By: RANDALL HOLLIS Order Number: [id number] Reading MD: Sangeetha Almaraz Measurements Intervals [place] Rate: 59 P: FL: 0 QRS: -84 QRSD: 217 T: 93 QT: 509 QTc: 508 Interpretive Statements ELECTRONIC VENTRICULAR PACEMAKER ABNORMAL RHYTHM ECG PACING NEW 07/18/19 Electronically Signed on 09-21-2019 9:02:56 EDT by Sangeetha Almaraz
== END 2019-09-21 06:55 | disposition short-term general hospital (02) ==
LOC: M ED 01:28
DX: A41.9 Sepsis, unspecified organism (principal); K72.90 Hepatic failure, unspecified without coma; N18.6 End stage renal disease; Z99.2 Dependence on renal dialysis; I51.7 Cardiomegaly; R41.82 Altered mental status, unspecified; R53.1 Weakness; I48.91 Unspecified atrial fibrillation; E11.29 Type 2 diabetes mellitus with other diabetic kidney complication; D69.6 Thrombocytopenia, unspecified; D64.9 Anemia, unspecified; J44.9 Chronic obstructive pulmonary disease, unspecified; K74.60 Unspecified cirrhosis of liver; H54.40 Blindness, one eye, unspecified eye; Z95.0 Presence of cardiac pacemaker; I73.9 Peripheral vascular disease, unspecified; G47.33 Obstructive sleep apnea (adult) (pediatric); I25.10 Atherosclerotic heart disease of native coronary artery without angina pectoris; I27.20 Pulmonary hypertension, unspecified; Z79.899 Other long term (current) drug therapy; Z79.01 Long term (current) use of anticoagulants; Z79.82 Long term (current) use of aspirin; Z11.59 Encounter for screening for other viral diseases
CPT/HCPCS: 36620; 70450; 71045; 80048; 80076; 82140; 82550; 82553; 82803; 83605; 84443; 84484; 85025; 85049; 85055; 87040; 93005; 93041; 96365; 96366; 96367; 99285; J2543; U0002